=== PATIENT | male | born 1950 | race Caucasian/White ===

== ENCOUNTER → 2017-03-22 | Outpatient (CLI) | payer MEDICARE, OTHER ==
[2017-03-22 08:59] LABS: Basophils # (A) 0.1 k/uL (0-0.2); Basophils % (A) 1 %; Eosinophils # (A) 0.4 k/uL (0-0.7); Eosinophils % (A) 7 %; HCT 44.9 % (39.0-53.0); HGB 14.1 gm/dL (13.0-17.5); Lymphocytes # (A) 1.7 k/uL (1.0-4.8); Lymphocytes % (A) 31 %; MCH 29.5 pg (25.0-35.0); MCHC 31.5 g/dL (31.0-37.0); MCV 93.7 fL (80.0-100.0); Mean Platelet Volume 7.2; Monocytes # (A) 0.4 k/uL (0-1.0); Monocytes % (A) 6 %; Neutrophils # (A) 2.9 k/uL (1.3-7.7); Neutrophils % (A) 52 %; Platelet Count 219 k/uL (150-450); RBC 4.79 m/uL (4.30-5.90); RDW 13.8 % (11.5-15.5); WBC 5.6 k/uL (3.8-10.6)
[2017-03-22 11:45] LABS: ALT 29 U/L (21-72); AST 22 U/L (17-59); Albumin 3.8 g/dL (3.5-5.0); Alkaline Phosphatase 59 U/L (38-126); Anion Gap 7 mmol/L; Blood Urea Nitrogen 23 mg/dL (9-20); Calcium 9.6 mg/dL (8.4-10.2); Carbon Dioxide 30 mmol/L (22-30); Chloride 105 mmol/L (98-107); Cholesterol 201 mg/dL (<200); Glucose 100 mg/dL (74-99); HDL Cholesterol 49 mg/dL (40-60); LDL Cholesterol,Calculated 133 mg/dL (0-99); Potassium 4.2 mmol/L (3.5-5.1); Sodium 142 mmol/L (137-145); Total Bilirubin 0.6 mg/dL (0.2-1.3); Total Protein 6.4 g/dL (6.3-8.2); Triglycerides 97 mg/dL (<150)
[2017-03-22 12:12] LABS: Prostate Specific Antigen 1.22 ng/mL (0.00-4.00)
== END | disposition home or self-care (01) ==
LOC: LABWHC1 08:15
PROVIDERS: ATTEND Internal Medicine
DX: K27.9 Peptic ulcer, site unspecified, unspecified as acute or chronic, without hemorrhage or perforation (principal); Z12.5 Encounter for screening for malignant neoplasm of prostate; Z13.6 Encounter for screening for cardiovascular disorders
CPT/HCPCS: 36415; 80053; 80061; 84153; 85025

== ENCOUNTER → 2017-04-18 | Outpatient (CLI) | payer MEDICARE, OTHER ==
--- NOTE | 2017-04-18 16:04 | CTL ---
EXAMINATION TYPE: CT Low Dose Lung DATE OF EXAM ORDERED: 04/18/2017 HISTORY: Tobacco abuse and shortness of breath. Lung cancer screening CT DLP: [address] CTDI: 1.57 mGy Automated exposure control for dose reduction was used. SCREENING VISIT: First screening visit COMPARISON: None TECHNIQUE: Low dose computed tomography scan was performed through the chest at 1 mm thick sections a nd reconstructed images in the coronal plane at [address] DIAGNOSTIC QUALITY: Limited, but interpretable FINDINGS: LUNG NODULES: None. There is a 4 mm lingular solid nodule that is noncalcified on series 5 image 210. Multiple calcifications oriented in a linear fashion within the left lower lobe represent benign gran ulomatous change. LUNGS: COPD: Severity: Moderate centrilobular Fibrosis: Severity: None Lymph nodes: Calcified hilar lymph nodes are seen bilaterally. Given the limitation of lack of intrav enous contrast no evidence of adenopathy is seen within the mediastinum or axilla Other findings: Right basilar atelectasis and scarring are noted. RIGHT PLEURAL SPACE: Effusion: None Calcification: None Thickening: None Pneumothorax: None LEFT PLEURAL SPACE: Effusion: None Calcification: None Thickening: None Pneumothorax: None HEART: Heart Size: Nonenlarged. Ascending thoracic aorta is of normal limits measuring 3.3 cm. Main pulmonar y artery is also within normal limits measuring 2.4 cm. Coronary calcification: Minimal of the left anterior descending Pericardial effusion: Trace anterior pericardial effusion OTHER FINDINGS: Upper abdomen: Extremely limited. Benign granulomatous changes of the splenic parenchyma. Bony thorax: Moderate multilevel degenerative change of the thoracic spine. Supraclavicular region: Grossly unremarkable Other: Small hiatal hernia is present. IMPRESSION: Lung RADS 2-benign appearance or behavior-nodules with a very low likelihood of becoming a clinically active cancer due to lack of size. Solitary lingular 4 mm noncalcified pulmonary nodule is seen in addition to benign granulomatous changes of the raquel and lung parenchyma. Findings are sup erimposed upon moderate centrilobular emphysematous change. FOLLOW UP CT CHEST RECOMMENDATION: Continued annual screening with low dose CT in [address] LUNG RAD: 2
== END | disposition home or self-care (01) ==
LOC: RADCTMAIN 14:48
PROVIDERS: ATTEND Internal Medicine
DX: Z12.2 Encounter for screening for malignant neoplasm of respiratory organs (principal); R91.8 Other nonspecific abnormal finding of lung field; Z87.891 Personal history of nicotine dependence

== ENCOUNTER → 2017-10-20 | Outpatient (CLI) | payer MEDICARE, OTHER ==
--- NOTE | 2017-10-20 11:20 | ECHOS ---
STRESS ECHOCARDIOGRAM INDICATION: Chest pain. MEDICATIONS: Stomach pill, inhaler BASELINE HEART RATE: 54 BASELINE BLOOD PRESSURE: 94/47. METS: 6.0 MAXIMUM HEART RATE: 123 MAXIMUM BLOOD PRESSURE: 162/58 85% MPHR: 130. MPHR: 153 MAXIMUM STAGE REACHED: 2 TOTAL EXERCISE TIME: 15 CLINICAL INFORMATION: Baseline EKG shows sinus rhythm, normal axis, normal intervals. Patient exercised on Bobo protocol for a total of 5 minutes achieving 6 METS. 80% of predicted maximal heart rate without chest pain. At peak exercise, there was [address]-segment depression noted in the inferolateral leads and occasional PVCs were noted. Baseline echo shows normal left ventricular size, wall motion systolic function. Postexercise, there is normal hyperdynamic response of all segments of myocardium noted. CONCLUSION: 1. Poor exercise tolerance. 2. Abnormal stress test by EKG criteria. 3. Inconclusive stress echo due to inability to attain target heart rate and frequent ventricular ectopy. MMODL / IJN: [id number] /
== END | disposition home or self-care (01) ==
LOC: RADNMMAIN 09:17
PROVIDERS: ATTEND Internal Medicine
DX: R94.39 Abnormal result of other cardiovascular function study (principal)
CPT/HCPCS: 93351

== ENCOUNTER → 2017-12-22 | Outpatient (CLI) | payer MEDICARE ==
[2017-12-22 14:39] LABS: Anisocytosis Slight; Basophils # (A) 0.1 k/uL (0-0.2); Basophils % (A) 2 %; Eosinophils # (A) 0.1 k/uL (0-0.7); Eosinophils % (A) 2 %; HCT 51.8 % (39.0-53.0); HGB 15.6 gm/dL (13.0-17.5); Lymphocytes % (A) 17 %; MCH 30.4 pg (25.0-35.0); MCHC 30.1 g/dL (31.0-37.0); MCV 100.9 fL (80.0-100.0); Macrocytosis Moderate; Mean Platelet Volume 10.4; Monocytes # (A) 0.4 k/uL (0-1.0); Monocytes % (A) 6 %; Neutrophils # (A) 4.6 k/uL (1.3-7.7); Neutrophils % (A) 72 %; Platelet Count 243 k/uL (150-450); RBC 5.13 m/uL (4.30-5.90); RDW 17.2 % (11.5-15.5); WBC 6.3 k/uL (3.8-10.6)
--- NOTE | 2017-12-22 15:19 | US ---
EXAMINATION TYPE: US duplex aorta DATE OF EXAM: 12/22/2017 COMPARISON: NONE CLINICAL HISTORY: R06.00 DYSPNEA. EXAM MEASUREMENTS: Abdominal Aorta: Proximal: 2.2 x 1.9 cm Mid: 2.1 x 2.0 cm Distal: 1.5 x 1.2 cm Bifurcation: 0.7 cm 0.7 cm Study is somewhat limited by bowel gas, but no evidence of AAA. Grayscale, color Doppler imaging performed of the abdominal aorta. Atheromatous changes are present. IMPRESSION: No evident abdominal aortic aneurysm
[2017-12-22 15:35] LABS: Albumin 3.8 g/dL (3.5-5.0); Calcium 9.5 mg/dL (8.4-10.2); Potassium 4.9 mmol/L (3.5-5.1); Total Bilirubin 0.6 mg/dL (0.2-1.3); Total Protein 6.8 g/dL (6.3-8.2)
== END | disposition home or self-care (01) ==
LOC: LABWHC1 13:41
PROVIDERS: ATTEND Internal Medicine
DX: R06.00 Dyspnea, unspecified (principal)
CPT/HCPCS: 36415; 80053; 82550; 83880; 84484; 85025; 93979

== ENCOUNTER 2018-02-27 12:22 | Day surgery (SDC) | payer MEDICARE, OTHER ==
[2018-02-23 11:50] VITALS: BMI 17.6
[~2018-02-27 12:22] MED LIST: LACTATED RINGERS 1,000 ML IV SCH; LIDOCAINE 1% 20 ML VIAL (10MG/ML) FOR IV START INTRADERMA PRN; MIDAZOLAM (PF) 2 MG/2 ML VIAL IV PRN
[2018-02-27 13:09] VITALS: TEMP 97.8
[2018-02-27] MEDS ORDERED: PROPOFOL 10 MG/ML 20 ML VIAL IV ONE (14:36)
[2018-02-27 15:14] VITALS: RESP 18
--- NOTE | 2018-02-27 15:23 | P.PCN ---
Date of Procedure: 02/27/18 Procedure(s) Performed: Procedure: 1. Esophagogastroduodenoscopy and biopsy. 2. Incomplete colonoscopy. Preoperative diagnosis: Abdominal pain and history of polyps. Postoperative diagnosis: 1. Small sliding hiatal hernia with no obvious esophagitis or complicated reflux disease. 2. Mild antral gastritis. 3. Significant diverticular disease with inability to advance the colonoscope safely in the midsigmoid. Preparation: HalfLytely prep. Sedation: Was provided by anesthesia. Brief clinical history: The patient is a 68-year-old male with history of polyps , last exam in 2011, who has also been experiencing hypogastric pain for the last 7-8 months with no other alarm symptoms. He is scheduled for this evaluation to rule out peptic ulcer disease, colon neoplasia or other pathology. Procedure: With the patient on his left lateral decubitus position and after informed consent and adequate sedation, I passed the Olympus-GIF H1 90 video upper endoscope through the cricopharyngeus down the esophagus. GE junction was around 40-42 cm from the incisors and there was a small sliding hiatal hernia but no obvious esophagitis or complicated reflux disease. The endoscope was passed into the stomach which was insufflated with air and inspected in detail including the retroflex view in the cardia. There was some mottling and erythema in the antrum but no ulcers or erosions. Pyloric channel, duodenal bulb, post bulbar area and descending duodenum appeared within normal limits. Because of his symptoms, I obtained biopsies from the duodenum, antrum and esophagus then the endoscope was withdrawn and I proceeded with the colonoscopy. Perianal area did not show any fissures or fistulas. There were no masses felt on digital rectal examination. The Olympus CFH 190L video colonoscope was initially used and was inserted in the rectum in the usual fashion and advanced. There was significant diverticular disease that made me unable to advance the endoscope safely around the mid sigmoid area. I, therefore, exchanged the endoscope for the pediatric PCF Q180L video colonoscope. Again, I was not able to pass it safely in the midsigmoid. I concluded the exam without completing the colonoscopy. The areas examined showed significant diverticular disease but no obvious mucosal abnormalities, tumors, polyps or strictures. I retroflexed the endoscope in the rectum before the endoscope was withdrawn. The patient tolerated the procedure well. Plan: We will await pathology results. Discussed dietary measures. I would consider CT colonography or other modality to investigate his bowel based on his course and biopsy results. I will keep you updated on his progress.
[2018-02-27 15:58] VITALS: BP 128/76; PULSE 52
== END 2018-02-27 16:10 | disposition home or self-care (01) ==
LOC: ORWHC2ENDO 12:22
DX: K31.9 Disease of stomach and duodenum, unspecified (principal); K21.0 Gastro-esophageal reflux disease with esophagitis; K29.80 Duodenitis without bleeding; K44.9 Diaphragmatic hernia without obstruction or gangrene; K29.70 Gastritis, unspecified, without bleeding; K57.30 Diverticulosis of large intestine without perforation or abscess without bleeding; Z86.010 Personal history of colon polyps; J44.9 Chronic obstructive pulmonary disease, unspecified; F17.210 Nicotine dependence, cigarettes, uncomplicated; Z79.899 Other long term (current) drug therapy
CPT/HCPCS: 88305; 43239; 45330; J2704; 45378

== ENCOUNTER 2018-03-20 09:56 | Inpatient (IN) | payer MEDICARE, OTHER ==
[2018-03-20] MEDS ORDERED: SODIUM CHLORIDE 0.9% 1,000 ML IV STA (10:23)
[2018-03-20] MEDS ORDERED: IPRATROPIUM-ALBUTEROL 3 ML NEB INHALATION STA ×3 (10:24→14:22)
--- NOTE | 2018-03-20 10:45 | XR ---
EXAMINATION TYPE: XR chest 2V DATE OF EXAM: 03/20/2018 COMPARISON: None INDICATION: Cough, short of breath TECHNIQUE: Frontal and lateral views of the chest are obtained. FINDINGS: The heart size is normal. The pulmonary vasculature is normal. There is hyperinflation and flattening the diaphragms compatible COPD. IMPRESSION: 1. No acute pulmonary process. 2. COPD
--- NOTE | 2018-03-20 10:48 | ED ---
General Adult HPI - General Source: patient, family, RN notes reviewed Mode of arrival: wheelchair Limitations: no limitations <Ananth Valdez - Last Filed: 03/20/18 14:38> <Luis M Youssef - Last Filed: 03/20/18 17:17> - General Chief complaint: Shortness of Breath Stated complaint: SOB Time Seen by Provider: 03/20/18 10:17 - History of Present Illness Initial comments: 68-year-old male presenting to the emergency room today with a chief complaint of increased cough congestion over the last week. He does admit to sputum production it's been white in color. Admits to history of COPD. Does admit that is felt more short of breath with this cough congestion. He states he's had symptoms like this in the past he was told that he had pneumonia. Patient states he does not have breathing treatments at home but they have been trying to get him a machine. Patient denies any other complaints. Patient denies any recent fever, chills, chest pain, back pain, abdominal pain, nausea or vomiting , numbness or tingling, headaches or visual changes, or any other complaints. ( Ananth Valdez) - Related Data Home Medications Medication Instructions Recorded Confirmed Omeprazole 20 mg PO DAILY 02/23/18 03/20/18 Unknown Stomach Medication 1 tab PO DAILY 03/20/18 03/20/18 Allergies Allergy/AdvReac Type Severity Reaction Status Date / Time No Known Allergies Allergy Verified 03/20/18 12:53 Review of Systems ROS Other: All systems not noted in ROS Statement are negative. <Ananth Valdez - Last Filed: 03/20/18 14:38> ROS Other: All systems not noted in ROS Statement are negative. <Luis M Youssef - Last Filed: 03/20/18 17:17> ROS Statement: Those systems with pertinent positive or pertinent negative responses have been documented in the HPI. Past Medical History Past Medical History: COPD History of Any Multi-Drug Resistant Organisms: None Reported Past Surgical History: Orthopedic Surgery, Tonsillectomy Additional Past Surgical History / Comment(s): shoulder arthroscopy Past Anesthesia/Blood Transfusion Reactions: No Reported Reaction Past Psychological History: No Psychological Hx Reported Smoking Status: Current every day smoker Past Alcohol Use History: None Reported Past Drug Use History: None Reported - Past Family History Father Family Medical History: Cancer <Ananth Valdez - Last Filed: 03/20/18 14:38> General Exam Limitations: no limitations <Ananth Valdez - Last Filed: 03/20/18 14:38> <Luis M Youssef Neris - Last Filed: 03/20/18 17:17> - General Exam Comments Initial Comments: General: The patient is awake and alert, in no distress, and does not appear acutely ill. Eye: There is normal conjunctiva bilaterally. No signs of icterus. Ears, nose, mouth and throat: There are moist mucous membranes and no oral lesions. Neck: The neck is supple, there is no tenderness or JVD. Cardiovascular: There is a regular rate and rhythm. No murmur, rub or gallop is appreciated. Respiratory: Bilateral expiratory wheeze. respirations are non-labored, breath sounds are equal. No wheezes, stridor, rales Musculoskeletal: Normal ROM, no tenderness. Strength 5/5. Sensation intact. Pulses equal bilaterally 2+. Neurological: A&O x 3. CN II-XII intact, There are no obvious motor or sensory deficits. Coordination appears grossly intact. Speech is normal. Skin: Skin is warm and dry and no rashes or lesions are noted. Psychiatric: Cooperative, appropriate mood & affect, normal judgment. (Ananth Valdez) Vital Signs 03/20/18 03/20/18 03/20/18 10:04 10:58 11:06 Temperature 97.7 F Pulse Rate 108 H 112 H 108 H Respiratory 18 Rate Blood Pressure 110/67 O2 Sat by Pulse 90 L Oximetry 03/20/18 03/20/18 03/20/18 12:06 12:20 12:29 Temperature 98.5 F Pulse Rate 91 88 92 Respiratory 28 H Rate Blood Pressure 111/77 O2 Sat by Pulse 91 L Oximetry 03/20/18 03/20/18 03/20/18 13:34 13:52 14:15 Temperature 98.3 F Pulse Rate 86 Respiratory 18 Rate Blood Pressure 94/64 O2 Sat by Pulse 99 92 L 88 L Oximetry 03/20/18 14:30 Temperature Pulse Rate Respiratory 22 Rate Blood Pressure O2 Sat by Pulse 98 Oximetry Medical Decision Making - Lab Data Result diagrams: 03/20/18 12:00 03/20/18 12:00 <Ananth Valdez - Last Filed: 03/20/18 14:38> - Lab Data Result diagrams: 03/20/18 12:00 03/20/18 12:00 <Luis M Youssef - Last Filed: 03/20/18 17:17> - Medical Decision Making Patient says x-ray reviewed is negative for any sign of pneumonia. Patient does have increased shortness of breath and cough congestion over the last week with positive sputum production. Patient has had improvement after breathing treatments here in the emergency room. Pulse ox is still been running in the high 80s low 90s. Patient shows no signs of respiratory distress. She will be admitted to the hospital for COPD exacerbation. (Ananth Valdez) Patient seen and evaluated, exam and history consistent with COPD. Patient remains hypoxic after initial treatment with albuterol, Atrovent, and steroids. Will be admitted, case discussed with admitting physician. (Luis M Youssef) - Lab Data Lab Results 03/20/18 03/20/18 03/20/18 Range/Units 12:00 12:00 12:00 WBC 8.7 (3.8-10.6) k/uL RBC 5.03 (4.30-5.90) m/uL Hgb 15.4 (13.0-17.5) gm/dL Hct 47.0 (39.0-53.0) % MCV 93.4 (80.0-100.0) fL MCH 30.6 (25.0-35.0) pg MCHC 32.7 (31.0-37.0) g/dL RDW 12.8 (11.5-15.5) % Plt Count 274 (150-450) k/uL Neutrophils % 85 % Lymphocytes % 7 % Monocytes % 5 % Eosinophils % 1 % Basophils % 1 % Neutrophils # 7.4 (1.3-7.7) k/uL Lymphocytes # 0.7 L (1.0-4.8) k/uL Monocytes # 0.4 (0-1.0) k/uL Eosinophils # 0.0 (0-0.7) k/uL Basophils # 0.0 (0-0.2) k/uL Sodium 139 (137-145) mmol/L Potassium 5.1 (3.5-5.1) mmol/L Chloride 103 (98-107) mmol/L Carbon Dioxide 28 (22-30) mmol/L Anion Gap 8 mmol/L BUN 14 (9-20) mg/dL Creatinine 0.89 (0.66-1.25) mg/dL Est GFR (CKD-EPI)AfAm >90 (>60 ml/min/1.73 sqM) Est GFR (CKD-EPI)NonAf 88 (>60 ml/min/1.73 sqM) Glucose 97 (74-99) mg/dL Plasma Lactic Acid Luciano 1.3 (0.7-2.0) mmol/L Calcium 9.1 (8.4-10.2) mg/dL Total Bilirubin 0.6 (0.2-1.3) mg/dL AST 29 (17-59) U/L ALT 21 (21-72) U/L Alkaline Phosphatase 60 (38-126) U/L Total Protein 6.5 (6.3-8.2) g/dL Albumin 3.6 (3.5-5.0) g/dL Disposition Is patient prescribed a controlled substance at d/c from ED?: No Time of Disposition: 14:40 <Ananth Valdez - Last Filed: 03/20/18 14:38> <Luis M Youssef - Last Filed: 03/20/18 17:17> Clinical Impression: COPD exacerbation Disposition: ADMITTED IP TO THIS HOSP Condition: Good
[2018-03-20 12:31] LABS: Basophils % (A) 1 %; Eosinophils % (A) 1 %; HGB 15.4 gm/dL (13.0-17.5); Lymphocytes # (A) 0.7 k/uL (1.0-4.8); Lymphocytes % (A) 7 %; MCH 30.6 pg (25.0-35.0); MCHC 32.7 g/dL (31.0-37.0); MCV 93.4 fL (80.0-100.0); Mean Platelet Volume 6.3; Monocytes # (A) 0.4 k/uL (0-1.0); Monocytes % (A) 5 %; Neutrophils # (A) 7.4 k/uL (1.3-7.7); Neutrophils % (A) 85 %; Platelet Count 274 k/uL (150-450); RBC 5.03 m/uL (4.30-5.90); RDW 12.8 % (11.5-15.5); WBC 8.7 k/uL (3.8-10.6)
[2018-03-20 12:39] LABS: Albumin 3.6 g/dL (3.5-5.0); Anion Gap 8 mmol/L; Blood Urea Nitrogen 14 mg/dL (9-20); Calcium 9.1 mg/dL (8.4-10.2); Carbon Dioxide 28 mmol/L (22-30); Chloride 103 mmol/L (98-107); Glucose 97 mg/dL (74-99); Sodium 139 mmol/L (137-145); Total Bilirubin 0.6 mg/dL (0.2-1.3); Total Protein 6.5 g/dL (6.3-8.2)
[2018-03-20 13:07] LABS: ALT 21 U/L (21-72); AST 29 U/L (17-59); Alkaline Phosphatase 60 U/L (38-126); Potassium 5.1 mmol/L (3.5-5.1)
[2018-03-20] MEDS ORDERED: DEXAMETHASONE SOD PHOSPHATE 10 MG/ML 1 ML VIAL IV STA (14:08)
[2018-03-20] MEDS ORDERED: ALBUTEROL NEBULIZED 2.5 MG/3 ML INHALATION STA (14:22)
[2018-03-20] MEDS ORDERED: SODIUM CHLORIDE 0.9% 1,000 ML IV ONE (14:41)
--- NOTE | 2018-03-20 17:32 | P.HPIM ---
History of Present Illness this is a 68-year-old male with extensive history of smoking who came to emergency department complaining of shortness of breath for the last few days. Patient reports extensive smoking "for the most of his life ". He denies any inhalers or other home medications. Patient reports that over the last few days he's been feeling sick and with some worsening shortness of breath mostly with exertion over the last couple of days he started coughing whitish thick sputum no blood. On the day of admission in the morning he was very severely short of breath coughing and had subjective feeling of wheezing and chest congestion and came to emergency department. He was found to have bilateral expiratory wheezing. He was hypoxic which improved home with placement of oxygen. Chest x-ray showed hyperinflated lungs consistent with emphysema and COPD and no acute infiltrates or cardiomegaly or changes in pulmonary vasculature. Patient states that he had a sick contact with his and grandchildren were sick before him. He denies any gaudencio fever chills sore throat and runny or stuffy nose moist changes body aches or muscle aches. He denies any history of COPD or pulmonary function testing and denies any admissions to the hospital due to shortness of breath. Chart review shows that last year when he was having some epigastric discomfort and chest pains and had exercise echo done which was noticeable for more exercise tolerance [address] segment depressions in inferolateral leads and normal findings on echocardiogram with preserved ejection fraction. In emergency department he was given oxygen and DuoNeb and Solu-Medrol and admitted for further evaluation. He is now stating that he's feeling somewhat better. Patient also states that for the last year or so he's been having some sort of baseline dyspnea and cough which would prevent him from exertion and he was able to walk less than one block lately.he denies any orthopnea PND or leg swelling. he looks like he lost some weight patient claims that his weight and appetite have been stable Review of Systems REVIEW OF SYSTEMS: CONSTITUTIONAL: No fever or chills HEENT: No changes in vision or voice CARDIOVASCULAR: no chest pain or abnormal heart beats, or any swelling in ankles or feet. RESPIRATORY: as per HPI GASTROINTESTINAL: No abdominal pain, no nausea no vomiting no constipation or diarrhea GENITOURINARY: no any urinary urgency, frequency or burning, and there has been no blood in her urine. no flank pain. MUSCULOSKELETAL: She notes full range of motion of all her joints without pain or swelling. NEUROLOGICAL: , no headache. no vision changes, or fainting. No numbness or tingling. Past Medical History Past Medical History: COPD History of Any Multi-Drug Resistant Organisms: None Reported Past Surgical History: Orthopedic Surgery, Tonsillectomy Additional Past Surgical History / Comment(s): shoulder arthroscopy Past Anesthesia/Blood Transfusion Reactions: No Reported Reaction Past Psychological History: No Psychological Hx Reported Smoking Status: Former smoker Past Alcohol Use History: None Reported Additional Past Alcohol Use History / Comment(s): has smoked for about 30 yrs; 2 cigs a day Past Drug Use History: None Reported - Past Family History Father Family Medical History: Cancer Medications and Allergies Home Medications Medication Instructions Recorded Confirmed Type Omeprazole 20 mg PO DAILY 02/23/18 03/20/18 History Unknown Stomach Medication 1 tab PO DAILY 03/20/18 03/20/18 History Allergies Allergy/AdvReac Type Severity Reaction Status Date / Time No Known Allergies Allergy Verified 03/20/18 12:53 Physical Exam Vitals: Vital Signs Temp Pulse Pulse Resp BP BP Pulse Ox 03/20/18 15:48 99.1 F 87 17 116/68 96 03/20/18 15:18 98.2 F 87 18 120/69 98 03/20/18 14:30 22 98 03/20/18 14:15 88 L 03/20/18 13:52 92 L 03/20/18 13:34 98.3 F 86 18 94/64 99 03/20/18 12:29 92 03/20/18 12:20 88 03/20/18 12:06 98.5 F 91 28 H 111/77 91 L 03/20/18 11:06 108 H 03/20/18 10:58 112 H 03/20/18 10:04 97.7 F 108 H 18 110/67 90 L Intake and Output 03/20/18 03/20/18 03/20/18 06:59 14:59 22:59 Other: Voiding Method Toilet Weight 48.081 kg Vital Signs: I have reviewed the vital signs. GENERAL: no apparent distress, noticeable breathing through pursed lips Eyes: PERRL, extraoculry movements intact, clear conjunctiva Head: : Atraumatic external nose and ears, oropharyngeal mucosa is moist without lesions or exudates, mild temporal wasting Neck: Symmetric, trachea midline, No thyromegaly, no masses or neck vain pulsation, no neck rigidity CVS: +S1/S2, No murmurs or gallops. Peripheral pulses 2+ and equal in all extremities. RESP: mildly labored respiratory effort. breath sounds are present but diminished and expiratory wheezes present bilateral. No crackles or significant rhonchi noted Abdomen: Bowel sounds present in all 4 quadrants, Soft to palpation, Nontender/ Nondistended, No hepatosplenomegaly, no hernias or masses, no CVA tnderness Musculoskeletal: Extremities w/o deformity, No cyanosis or clubbing, no joint swelling Skin: Warm, Dry. 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, motor strenght 5/5 i upper and lower extremities, no clonus, patellar DTRs 2+ and sympetrical no asterixis Psych: Awake, Alert, & Oriented (AAO) x3 Appropriate mood and affect Results CBC & Chem 7: 03/20/18 12:00 03/20/18 12:00 Labs: Abnormal Lab Results - Last 24 Hours (Table) 03/20/18 Range/Units 12:00 Lymphocytes # 0.7 L (1.0-4.8) k/uL Abdominal x-ray: report reviewed Thrombosis Risk Factor Assmnt - Choose All That Apply Each Factor Represents 1 point: Abnormal pulmonary function (COPD) Other Risk Factors: Yes Each Risk Factor Represents 2 Points: Age 61-74 years Other congenital or acquired thrombophilia - If yes, enter type in comment: No Thrombosis Risk Factor Assessment Total Risk Factor Score: 3 Thrombosis Risk Factor Assessment Level: Moderate Risk Assessment and Plan Assessment: 1. Acute hypoxic respiratory failure Clinically most likely related to acute exacerbation of underlying COPD Continue steroids Bronchodilators Oxygen supplementation and home oxygen evaluation prior to discharge Tobacco cessation Increase activity as tolerated 2. 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
[2018-03-20] MEDS: NICOTINE 7MG/24HR PATCH TRANSDERM SCH (17:56)
[2018-03-20] MEDS: methylPREDNISolone SOD SUCCI 125 MG/2 ML VIAL IV SCH (17:56)
[2018-03-20] MEDS: IPRATROPIUM-ALBUTEROL 3 ML NEB INHALATION PRN (19:39)
[2018-03-20] MEDS: BENZONATATE 100 MG CAP PO PRN (21:20)
[2018-03-21] MEDS: methylPREDNISolone SOD SUCCI 125 MG/2 ML VIAL IV SCH ×2 (00:38→05:29)
[2018-03-21] MEDS: BENZONATATE 100 MG CAP PO PRN ×2 (06:35→19:31)
[2018-03-21] MEDS: IPRATROPIUM-ALBUTEROL 3 ML NEB INHALATION PRN ×4 (07:25→19:56)
[2018-03-21] MEDS: NICOTINE 7MG/24HR PATCH TRANSDERM SCH (07:28)
[2018-03-21 09:32] VITALS: BMI 17.6
--- NOTE | 2018-03-21 11:02 | P.PN ---
Subjective Patient was admitted yesterday with complaint of progressively worsening shortness of breath and cough and subjective feeling of chest congestion and wheezing. This started after some sick contacts with his family members. He also continues to smoke at least one pack per day. He does have appearance of a pink puffer with barrel chest and breathing pursed lips. He clinically did not exhibit any signs of congestive heart failure there was no any leg edema no orthopnea no JVD. His physical exam was consistent with diminished breath sounds and expiratory wheezing bilaterally. He was started on systemic steroids to IV and breathing treatments, no antibiotics due to lack of purulence in his sputum. Chest x-ray was clear of any infiltrates and he then any fever or chills. Today he is doing much better. He is able to get up and go to the bathroom and back without any significant shortness of breath. His cough is significantly improved and he overall feels improved. REVIEW OF SYSTEMS: CONSTITUTIONAL: No fever or chills HEENT: No changes in vision or voice CARDIOVASCULAR: no chest pain or abnormal heart beats, or any swelling in ankles or feet. RESPIRATORY: As per HPI GASTROINTESTINAL: No abdominal pain, no nausea no vomiting no constipation or diarrhea GENITOURINARY: no any urinary urgency, frequency or burning, and there has been no blood in her urine. no flank pain. MUSCULOSKELETAL: She notes full range of motion of all her joints without pain or swelling. NEUROLOGICAL: , no headache. no vision changes, or fainting. No numbness or tingling. Objective - Vital Signs Vital signs: Vital Signs Temp 97.7 F 03/21/18 05:00 Pulse 80 03/21/18 07:35 Resp 16 03/21/18 05:00 BP 103/71 03/21/18 05:00 Pulse Ox 93 L 03/21/18 09:54 Intake & Output 03/20/18 03/21/18 03/21/18 18:59 06:59 18:59 Intake Total 940 Balance 940 Weight 48.081 kg 48.081 kg Intake: Oral 940 Other: Voiding Method Toilet Toilet Toilet # Voids 1 - Exam Vital Signs: I have reviewed the vital signs. GENERAL: Well-nourished, Well-developed , no apparent distress, cooperative Eyes: PERRL, extraoculry movements intact, clear conjunctiva Head: : Atraumatic external nose and ears, oropharyngeal mucosa is moist without lesions or exudates Neck: Symmetric, trachea midline, No thyromegaly, no masses or neck vain pulsation, no neck rigidity CVS: +S1/S2, No murmurs or gallops. Peripheral pulses 2+ and equal in all extremities. RESP: He has barrel chest, breathing through pursed lips. Unlabored respiratory effort. His breath sounds are diminished and he has a few expiratory wheezes bilaterally but much improved since yesterday, no rhonchi or crackles Abdomen: Bowel sounds present in all 4 quadrants, Soft to palpation, Nontender/ Nondistended, No hepatosplenomegaly, no hernias or masses, no CVA tnderness Musculoskeletal: Extremities w/o deformity, No cyanosis or clubbing, no joint swelling Skin: Warm, Dry. 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: No asterixis Psych: Awake, Alert, & Oriented (AAO) x3 Appropriate mood and affect - Labs CBC & Chem 7: 03/20/18 12:00 03/20/18 12:00 Labs: Abnormal Lab Results - Last 24 Hours (Table) 03/20/18 Range/Units 12:00 Lymphocytes # 0.7 L (1.0-4.8) k/uL Assessment and Plan Assessment: 1. Acute hypoxic respiratory failure Due to acute exacerbation of COPD Continue steroids, will change to prednisone 40 mg daily for 5 days Continue Bronchodilators Oxygen supplementation and home oxygen evaluation prior to discharge Tobacco cessation Increase activity as tolerated 2. Gastritis and reflux esophagitis Continue omeprazole We'll plan for discharge home tomorrow or if he will need home oxygen evaluation. He'll need proper vaccinations. Pulmonary function test and low dose screening CT of the lungs on outpatient basis in few weeks with his primary care physician I would advise the patient to be started on inhaled LAMA and laba/steroid. Since going home on DuoNeb we can initiate Advair or other insurance covered inhaler.
[2018-03-21] MEDS: predniSONE 20 MG TAB PO SCH (12:31)
[2018-03-22] MEDS: IPRATROPIUM-ALBUTEROL 3 ML NEB INHALATION PRN ×4 (07:08→19:06)
[2018-03-22] MEDS: NICOTINE 7MG/24HR PATCH TRANSDERM SCH (08:45)
[2018-03-22] MEDS: predniSONE 20 MG TAB PO SCH (08:45)
[2018-03-22] MEDS ORDERED: guaiFENesin SYRUP 100MG/5ML 200 MG/10 ML CUP PO PRN (10:52)
--- NOTE | 2018-03-22 10:55 | P.PN ---
Subjective Respiratory status continues to improve although patient states that today he had episode of shortness of breath ambulating to the restroom and back. Currently feeling better. He has cough has been clearing up no production. No fever or chills chest pain or nausea or vomiting. REVIEW OF SYSTEMS: CONSTITUTIONAL: No fever or chills HEENT: No changes in vision or voice CARDIOVASCULAR: no chest pain or abnormal heart beats, or any swelling in ankles or feet. RESPIRATORY: As per HPI GASTROINTESTINAL: No abdominal pain, no nausea no vomiting no constipation or diarrhea GENITOURINARY: no any urinary urgency, frequency or burning, and there has been no blood in her urine. no flank pain. MUSCULOSKELETAL: She notes full range of motion of all her joints without pain or swelling. NEUROLOGICAL: , no headache. no vision changes, or fainting. No numbness or tingling. Objective - Vital Signs Vital signs: Vital Signs Temp 97.5 F L 03/22/18 05:00 Pulse 80 03/22/18 07:21 Resp 16 03/22/18 05:00 BP 106/61 03/22/18 05:00 Pulse Ox 95 03/22/18 05:00 Intake & Output 03/21/18 03/22/18 03/22/18 18:59 06:59 18:59 Intake Total 600 1800 Balance 600 1800 Weight 48.081 kg 48.081 kg Intake: Intake, IV Titration 600 Amount Sodium Chloride 0.9% 1, 600 000 ml @ 75 mls/hr IV . [id number] ONE Rx#:[id number] Oral 1800 Other: Voiding Method Toilet Toilet # Voids 2 - Exam Vital Signs: I have reviewed the vital signs. GENERAL: Well-nourished, Well-developed , no apparent distress, cooperative Eyes: PERRL, extraoculry movements intact, clear conjunctiva Head: : Atraumatic external nose and ears, oropharyngeal mucosa is moist without lesions or exudates Neck: Symmetric, trachea midline, No thyromegaly, no masses or neck vain pulsation, no neck rigidity CVS: +S1/S2, No murmurs or gallops. Peripheral pulses 2+ and equal in all extremities. RESP: He has barrel chest, breathing through pursed lips. Unlabored respiratory effort. His breath sounds are diminished and he has a few expiratory wheezes bilaterally but much improved since yesterday, no rhonchi or crackles Abdomen: Bowel sounds present in all 4 quadrants, Soft to palpation, Nontender/ Nondistended, No hepatosplenomegaly, no hernias or masses, no CVA tnderness Musculoskeletal: Extremities w/o deformity, No cyanosis or clubbing, no joint swelling Skin: Warm, Dry. 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: No asterixis Psych: Awake, Alert, & Oriented (AAO) x3 Appropriate mood and affect - Labs CBC & Chem 7: 03/20/18 12:00 03/20/18 12:00 Labs: Microbiology - Last 24 Hours (Table) 03/20/18 12:00 Blood Culture - Preliminary Blood No Growth after 24 hours Assessment and Plan Assessment: 1. Acute hypoxic respiratory failure Due to acute exacerbation of COPD Continue steroids, will change to prednisone 40 mg daily for 5 days Continue Bronchodilators Oxygen supplementation and home oxygen evaluation prior to discharge Tobacco cessation Increase activity as tolerated The pencil he feels that they may consider discharging him Add Advair or compatible covered inhaler on discharge 2. Gastritis and reflux esophagitis Continue omeprazole Maalox when necessary
[2018-03-22] MEDS: MAG HYDROX/AL HYDROX/SIMETH 30 ML CUP PO PRN ×2 (12:55→21:46)
[2018-03-22 21:45] VITALS: RESP 18; TEMP 97.6
[2018-03-23 05:15] VITALS: BP 109/52
[2018-03-23] MEDS: predniSONE 20 MG TAB PO SCH (07:20)
[2018-03-23] MEDS: NICOTINE 7MG/24HR PATCH TRANSDERM SCH (07:21)
[2018-03-23] MEDS: IPRATROPIUM-ALBUTEROL 3 ML NEB INHALATION PRN ×2 (07:39→11:17)
[2018-03-23 11:26] VITALS: PULSE 76
--- NOTE | 2018-03-23 14:50 | P.DS ---
Providers Date of admission: 03/20/18 14:25 Attending physician: Ananya Barlow DO Primary care physician: [facility] Course: Date of admission: 03/20/2018 Date of discharge: 03/23/2018 Reason for admission: Shortness of breath. Discharge diagnoses: #1 acute hypoxic respiratory failure #2. Acute COPD exacerbation #3. GERD #4. Tobacco addiction This is a 62 male who presented to emergency department with complaint of shortness of breath, chest congestion, wheezing and cough with expectoration of minimal whitish phlegm. He has extensive history of smoking but denies any official diagnosis of COPD or using any inhalers at home. He reports the symptom going on for few days. He reports possibly sick contacts with his and grandchildren week prior to this. He denies any fever chills chest pain nausea vomiting orthopnea leg swelling or PND. Denies any sore throat or body aches. Physical exam he clearly had barrel chest and breathing through pursed lips Emergency department he was found to have diffuse bilateral expiratory wheezing. Chest x-ray showed emphysematous changes without any infiltrates or other acute findings. His troponin was negative and EKG without any significant ST-T changes. His oxygen saturation was in 70s in triage room air and improved with supplemental nasal cannula. Hospital course: Patient was admitted with clinical diagnosis of COPD exacerbation. He was started on systemic steroids, nebulizer and supplemental oxygen. He is activity was gradually increased. With this mentioned treatment his condition improved. Respiratory status was improving. He is chest wheezing has been resolving and he was able to get up from bed and ambulate in the room without any significant shortness of breath. He had a home oxygen evaluation and was found to be in need of supplemental oxygen on discharge. He did have some epigastric discomfort and heartburn. Prior EGD showed gastritis and esophagitis. He was maintained on PPI and given some Maalox with complete resolution of his symptoms. On the day of discharge I saw and evaluated the patient. He was doing very well without any significant shortness of breath. Vital Signs: I have reviewed the vital signs. GENERAL: no apparent distress, cooperative Eyes: PERRL, extraoculry movements intact, clear conjunctiva Head: : Atraumatic external nose and ears, oropharyngeal mucosa is moist without lesions or exudates Neck: Symmetric, trachea midline, No thyromegaly, no masses or neck vain pulsation, no neck rigidity CVS: +S1/S2, No murmurs or gallops. Peripheral pulses 2+ and equal in all extremities. RESP: Unlabored respiratory effort. Diminished breath sounds without any wheezing rhonchi or crackles. Barrel chest noted Abdomen: Bowel sounds present in all 4 quadrants, Soft to palpation, Nontender/ Nondistended, No hepatosplenomegaly, no hernias or masses, no CVA tnderness Musculoskeletal: Extremities w/o deformity, No cyanosis or clubbing, no joint swelling Skin: Warm, Dry. 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: gold marker II-XII grossly intact, motor strenght 5/5 i upper and lower extremities, no clonus, patellar DTRs 2+ and sympetrical Psych: Awake, Alert, & Oriented (AAO) x3 Appropriate mood and affect Disposition: Patient was discharged home. He is provided transportation. He was discharged with home oxygen via nasal cannula 2 L. He was given prednisone to finish 3 more days. He was provided with nebulizer machine and DuoNeb. And he was started on Symbicort. We'll ask respiratory therapist to educate patient on proper use of inhalers and nebulizers. He was advised to avoid smoking and provided with nicotine patches. He was advised to follow-up with his primary care physician and obtain pulmonary function test in 2-4 weeks 45 minutes spent on this discharge Patient Condition at Discharge: Good Plan - Discharge Summary Discharge Rx Participant: No New Discharge Prescriptions: New Budesonide/Formoterol Fumarate [Symbicort 80-4.5 Mcg Inhaler] 1 puff INHALATION BID #1 inhaler guaiFENesin SYRUP 100MG/5ML [Robitussin] 200 mg PO TID PRN #1 cup PRN Reason: Cough Ipratropium-Albuterol Nebulize [Duoneb 0.5 mg-3 mg/3 ml Soln] 3 ml INHALATION RT-Q4H PRN #30 ampul.neb PRN Reason: Shortness Of Breath Or Wheezing Nicotine 7Mg/24Hr Patch [Habitrol] 1 patch TRANSDERM DAILY #7 patch predniSONE 40 mg PO DAILY #6 tab Continue Omeprazole 20 mg PO DAILY Discontinued Dicyclomine [Bentyl] 20 mg PO TID Discharge Medication List Omeprazole 20 mg PO DAILY 02/23/18 [History] Budesonide/Formoterol Fumarate [Symbicort 80-4.5 Mcg Inhaler] 1 puff INHALATION BID #1 inhaler 03/23/18 [Rx] Ipratropium-Albuterol Nebulize [Duoneb 0.5 mg-3 mg/3 ml Soln] 3 ml INHALATION RT -Q4H PRN #30 ampul.neb 03/23/18 [Rx] Nicotine 7Mg/24Hr Patch [Habitrol] 1 patch TRANSDERM DAILY #7 patch 03/23/18 [Rx ] guaiFENesin SYRUP 100MG/5ML [Robitussin] 200 mg PO TID PRN #1 cup 03/23/18 [Rx] predniSONE 40 mg PO DAILY #6 tab 03/23/18 [Rx] Follow up Appointment(s)/Referral(s): Darnell Hodge MD [Primary Care Provider] - 03/30/18 9:00 am Patient Instructions/Handouts: Prednisone (By mouth), Guaifenesin (By mouth), Nicotine (Absorbed through the skin), Ipratropium/Albuterol (By breathing), Budesonide/Formoterol (By breathing), How to Stop Smoking (DC), How to Use a Metered-Dose Inhaler (GEN), Using Oxygen at Home (GEN), COPD (Chronic Obstructive Pulmonary Disease) (GEN) Activity/Diet/Wound Care/Special Instructions: If symbicort is too expensive or not covered, please have the pharmacist call Dr. Salinas at [phone] Care Plan Goals (MU): Follow up with PCP. Need to recheck your oxygen level in 6 weeks to reevaluate need for home oxygen (can be done at PCP office) Discharge Disposition: HOME WITH HOME HEALTH SERVICES
== END 2018-03-23 14:07 | disposition home health service (06) | DRG 190 ==
LOC: EC 09:56 → 3NMEDONC 14:25
PROVIDERS: ADMIT Internal Medicine; ATTEND Internal Medicine
DX: J44.1 Chronic obstructive pulmonary disease with (acute) exacerbation (principal); J96.01 Acute respiratory failure with hypoxia; F17.210 Nicotine dependence, cigarettes, uncomplicated; K21.0 Gastro-esophageal reflux disease with esophagitis; K29.70 Gastritis, unspecified, without bleeding; Z79.899 Other long term (current) drug therapy
CPT/HCPCS: 36415; 71046; 80053; 83605; 85025; 87040; 94640; 94760; 96361; 96374; 99285

== ENCOUNTER → 2018-04-23 | Outpatient (CLI) | payer MEDICARE, OTHER ==
--- NOTE | 2018-04-23 14:06 | CT ---
EXAMINATION TYPE: CT abdomen pelvis w con DATE OF EXAM: 04/23/2018 COMPARISON: None. HISTORY: Epigastric pain CT DLP: 319.5 mGycm, Automated Exposure Control for Dose Reduction was Utilized. CONTRAST: CT scan of the abdomen and pelvis is performed with oral and with IV Contrast, patient injected with 80 mL of Isovue 300. FINDINGS: LUNG BASES: Emphysematous change in lung bases with bibasilar linear scarring and/or atelectasis is i dentified. There is rounded atelectasis and/or consolidation new from lung screening CT 5 days earlie r making true pulmonary nodule not possible. LIVER/GB: No significant abnormality is appreciated. PANCREAS: No significant abnormality is seen. SPLEEN: Scattered calcifications throughout the spleen are redemonstrated consistent with old granulo matous disease. ADRENALS: No significant abnormality is seen. KIDNEYS: No significant abnormality is seen. BOWEL: Oral contrast reaches level of the proximal transverse colon. There is no suspicious small or large bowel dilatation. Sigmoid colonic diverticulosis is present, additional diverticula are seen in the left colon. There is no CT evidence for acute diverticulitis. Scattered pelvic phleboliths are p resent. Appendix felt within normal limits from base of cecum in the upper right pelvis. PROSTATE/SEMINAL VESICLES: No gross abnormality seen. LYMPH NODES: No greater than 1cm abdominal or pelvic lymph nodes are appreciated. OSSEOUS STRUCTURES: There is moderate to severe disc space narrowing with subchondral cystic change a nd mild spurring at L4-L5 and L5-S1 levels. Mild to moderate spurring and disc space narrowing L1-L2 level is present. Mild to moderate narrowing with mild spurring both hip joints is noted. OTHER: Moderate plaque in the infrarenal abdominal aorta extends into pelvic iliac branch vessels. IMPRESSION: Diverticulosis without CT evidence for acute diverticulitis. No significant acute findin g is seen to account for patient's clinical symptoms of epigastric pain.
== END | disposition home or self-care (01) ==
LOC: RADCTMAIN 11:01
PROVIDERS: ATTEND Internal Medicine
DX: K57.30 Diverticulosis of large intestine without perforation or abscess without bleeding (principal); R10.13 Epigastric pain
CPT/HCPCS: 82565; 84520; 74177; 36415; Q9967

== ENCOUNTER → 2018-05-01 | Outpatient (CLI) | payer MEDICARE, OTHER ==
--- NOTE | 2018-05-01 12:20 | FL ---
EXAMINATION TYPE: FL barium enema w air contrast DATE OF EXAM: 05/01/2018 COMPARISON: CT abdomen and pelvis from 8 days ago. HISTORY: Failed recent colonoscopy. TECHNIQUE: A double contrast barium enema study is performed. A total of 3 minutes 12 seconds of flu oroscopic time was utilized during procedure. 23 spot images are saved. FINDINGS: [employer] view of the abdomen shows overall non-obstructive bowel gas pattern. Some scattered pelvic phleboliths are seen. There is successful filling to the colon. There is markedly redundant sigmoid colon which makes evalu ation suboptimal especially for polyps. No obstructing or constricting lesion is present. There is pr ominent diverticulosis in the sigmoid colon redemonstrated. Occasional diverticula in the left colon is present. On CT there is short segment of mild to moderate wall thickening in the mid to distal tra nsverse colon, that shows improved aeration contrast opacification on this study. Appendix was filled and appeared normal. The terminal ileum was eventually refluxed on delayed image s. IMPRESSION: No obstructing or constricting neoplasm identified. Prominent sigmoid colonic diverticul osis redemonstrated.
== END | disposition home or self-care (01) ==
LOC: RADFLMAIN 04-23 10:35
PROVIDERS: ATTEND Internal Medicine
DX: K57.30 Diverticulosis of large intestine without perforation or abscess without bleeding (principal)
CPT/HCPCS: 74280

== ENCOUNTER → 2018-09-22 | Outpatient (CLI) | payer MEDICARE, OTHER ==
--- NOTE | 2018-09-26 07:28 | PE ---
EXAMINATION TYPE: PET CT fusion skull to thigh DATE OF EXAM: 09/22/2018 COMPARISON: Chest CT September 19, 2018. CT abdomen and pelvis April 23, 2018. CT low-dose lung screening CT April 18, 2017. HISTORY: Solitary pulmonary nodule , abnormal CT. TECHNIQUE: Following the intravenous administration of 10.449 mCi of F-18 FDG, whole body images are performed from the skull base to the midthigh. Images are reviewed on the computer in the coronal, axial, and sagittal planes. Reconstructed rotating images are created on independent workstation and reviewed on the computer. A noncontrast CT is performed in conjunction with the PET scan. SCAN: Initial Scan FINDINGS: SKULL BASE AND NECK: No areas of suspicious hypermetabolic uptake. CHEST, MEDIASTINUM, AND HILAR REGION: Background moderate to advanced underlying emphysematous change s redemonstrated most prominent in the upper lungs. There is persistent area of triangular shaped mas slike consolidation extending anteriorly inferiorly from the right hilum measuring approximately 4.6 x 3.7 cm axial image 113 without abnormal hypermetabolic uptake, some air bronchograms centrally are present. Finding is new from April 18, 2017 CT. No areas of suspicious hypermetabolic uptake in the thorax are identified. ABDOMEN AND PELVIS: No areas of suspicious hypermetabolic uptake. Normal excretion is seen. OSSEOUS STRUCTURES: No areas of suspicious hypermetabolic uptake. OTHER CT: There is 6 mm calcified nodular granuloma left lower lobe axial image 123. There additional calcified left hilar lymph nodes. Calcifications are also seen scattered throughout the spleen. Find ings are consistent with products of old granulomatous disease. There are prominent right and left pulmonary arteries, CT findings suggestive of underlying pulmonary artery hypertension. Sigmoid colonic diverticulosis is present. There are scattered pelvic phleboliths. Prostate gland is enlarged consistent with BPH. There is mild to moderate calcified plaque of the aorta extending into branch vessels. There is multi level spurring in the thoracolumbar spine. There is facet arthropathy lower lumbar levels. Slight sco liotic curvature is present. IMPRESSION: No suspicious hypermetabolic uptake to suggest hypermetabolic malignancy however a slow-g rowing neoplasm such as bronchioloalveolar carcinoma cannot be excluded. I would favor postinfectious process. Advise follow-up chest CT in 1-2 months time to reassess if there is no improvement in size further investigation with bronchoscopy may be warranted.
== END | disposition home or self-care (01) ==
LOC: RADPETMAIN 12:27
PROVIDERS: ATTEND Internal Medicine
DX: R91.1 Solitary pulmonary nodule (principal)
CPT/HCPCS: 78815; A9552

== ENCOUNTER 2018-09-26 11:06 | Day surgery (SDC) | payer MEDICARE, OTHER ==
[2018-09-19 13:47] VITALS: BMI 17.8
[~2018-09-26 11:06] MED LIST changes: +ALBUTEROL NEB (CONC) 2.5 MG/0.5 ML INHALATION ONE; +LIDOCAINE 2% (PF) 20 MG/ML 5 ML VIAL INHALATION ONE; +LIDOCAINE VISCOUS 300 MG/15 ML CUP MUCOUS MEM ONE; -MIDAZOLAM (PF) 2 MG/2 ML VIAL IV PRN; +SODIUM CHLORIDE 0.9% 1,000 ML IV SCH
[2018-09-26 11:49] VITALS: TEMP 97.8
[2018-09-26] MEDS ORDERED: MIDAZOLAM 2 MG/2 ML VIAL ONE (12:59)
[2018-09-26] MEDS ORDERED: PROPOFOL 10 MG/ML 20 ML VIAL IV ONE (12:59)
[2018-09-26] MEDS ORDERED: KETAMINE 10 MG/ML 20 ML VIAL ONE (12:59)
[2018-09-26] MEDS ORDERED: GLYCOPYRROLATE 0.2 MG/ML 2 ML VIAL ONE (12:59)
[2018-09-26] MEDS ORDERED: LIDOCAINE 1% INJ 10MG/ML (20 ML MDV) ONE (12:59)
[2018-09-26] MEDS ORDERED: LIDOCAINE 2% INJ 20 MG/ML INTRATRACH ONE (13:20)
[2018-09-26 14:35] VITALS: BP 103/71; PULSE 88; RESP 16
[2018-09-26 17:14] LABS: Appearance,BF Cloudy; Color,BF Colorless; Nucleated Cells, Body Fluid 522 /uL; RBC, Body Fluid 556 /uL
[2018-09-26 17:21] LABS: Mononuclear WBC,Body Fluid 2 %; Polynuclear WBC,Body Fluid 98 %; Total Cells Counted,Body Fluid 100
--- NOTE | 2018-09-26 19:02 | PCN ---
PROCEDURE NOTE OPERATIVE REPORT: Bronchoscopy and bronchoalveolar lavage of the right middle lobe. PREOPERATIVE DIAGNOSIS: Right middle lobe consolidation, rule out endobronchial tumor of the right middle lobe. POSTOPERATIVE DIAGNOSIS: Right middle lobe consolidation, no evidence of endobronchial tumor. ANESTHESIA USED: IV conscious sedation. INDICATION FOR THE PROCEDURE: Rule out endobronchial tumor involving the right lower lobe. DESCRIPTION OF PROCEDURE: The patient was prepared according to the bronchoscopy protocol. The patient was placed in the supine position, O2 was applied via nasal cannula. Then, we monitored his O2 saturation continuously. Blood pressure was intermittently monitored and cardiac rhythm was continuously monitored. After adequate IV conscious sedation, the left naris was anesthetized using lidocaine instilled in the left naris. Then the bronchoscope was advanced to the left naris down to the area of the vocal cords. The vocal cords were noted to be patent and free of any lesions. Lidocaine was applied over the vocal cords. The bronchoscope was advanced further down to the trachea, thorough examination was done of the trachea, michael, right upper lobe, right lower lobe, left upper lobe lingula and left lower lobe. Minimal purulent secretions noted in the airways. The right middle lobe bronchus was thoroughly examined, there was no evidence of any tumor, there was however some narrowing, but no endobronchial tumor noted. The narrowing was mostly in the lateral segment of the right middle lobe. But I was able to visualize the segment quite well and no endobronchial tumor was noted. High volume lavage was done of the right middle lobe, the procedure was well tolerated, no evidence of any immediate complications. The fluid was sent for the different diagnostic studies including cultures and cytology. MMODL / IJN: [id number] /
== END 2018-09-26 14:46 | disposition home or self-care (01) ==
LOC: ORWHC2ENDO 11:06
PROVIDERS: ATTEND Internal Medicine
DX: R91.8 Other nonspecific abnormal finding of lung field (principal); J98.19 Other pulmonary collapse; J44.9 Chronic obstructive pulmonary disease, unspecified; K21.9 Gastro-esophageal reflux disease without esophagitis; Z79.51 Long term (current) use of inhaled steroids; Z79.899 Other long term (current) drug therapy; Z88.8 Allergy status to other drugs, medicaments and biological substances
CPT/HCPCS: 94640; 89050; 87070; 87205; 87116; 87102; 87206; 31624; J2001 ×3; J2250; J2704; 88108; 88305

== ENCOUNTER → 2018-11-12 | Outpatient (CLI) | payer MEDICARE, OTHER ==
--- NOTE | 2018-11-13 13:16 | MR ---
EXAMINATION TYPE: MR pancreas wo/w con DATE OF EXAM: 11/12/2018 COMPARISON: CT scan 09/22/2018, CT scan 04/23/2018 HISTORY: Upper abdominal pain CONTRAST: Standard multiplanar, multisequence MRI departmental protocol utilizing 4.5 mL intravenous Gadavist g adolinium contrast. FINDINGS: Exam limited by motion artifact Splenic granuloma noted. There are multiple sub-5 mm areas of signal within the liver which are too s mall to characterize but most typical of tiny cysts. No gallstones. Minimal thickening of the left adrenal gland with no definite nodularity. Right adrenal gland has a n ormal morphology. The bowel gas pattern nonspecific. No free fluid. Aorta of normal caliber. No hydronephrosis or renal mass. Tiny subcentimeter simple left renal cyst noted. Pancreas has a normal appearance. Multilevel degenerative disc disease. Discogenic marrow changes are seen. Right paracentral disc prot rusion at L1-L2. Facet arthropathy and disc bulging most notably at L4-L5 with suspicion of canal jenaro nosis. IMPRESSION: 1. Limited exam due to motion artifact demonstrates no definite acute process. 2. Sub-5 mm multiple focal areas of abnormal signal the liver most suggestive of tiny cysts. 3. Multilevel degenerative disc disease with canal stenosis suspected L4-L5. Right paracentral disc p rotrusion at L1-L2. 4. The stomach is decompressed and limited in assessment. There is concern for gastrointestinal abnor mality correlate with direct visualization as clinically warranted.
== END | disposition home or self-care (01) ==
LOC: RADMRIMAIN 17:55
PROVIDERS: ATTEND Internal Medicine
DX: R93.2 Abnormal findings on diagnostic imaging of liver and biliary tract (principal); R10.9 Unspecified abdominal pain
CPT/HCPCS: 74183; A9585

== ENCOUNTER → 2018-12-03 | Outpatient (CLI) | payer MEDICARE, OTHER ==
--- NOTE | 2018-12-03 12:17 | CT ---
EXAMINATION TYPE: CT chest w con DATE OF EXAM: 12/03/2018 COMPARISON: Chest CT September 19, 2018 and low-dose lung screening CT April 18, 2017. PET/CT September 22 9 HISTORY: pulmonary nodule follow up CT DLP: 123.7 mGycm. Automated Exposure Control for Dose Reduction was Utilized. TECHNIQUE: CT scan of the thorax is performed following with IV Contrast, patient injected with 100 mL of Isovue 300. FINDINGS: LUNGS: Persistent moderate underlying emphysematous change most prominent in the upper lobes. Marked interval improvement in right middle lobe triangular shaped consolidation or atelectasis with some re sidual curvilinear atelectasis abutting mediastinum right middle lobe axial image 44. Stable 4 mm raina undglass nodule in the lingula axial image 44. Stable partially calcified adjacent subcentimeter nodu les left lower lobe axial image 46. Mild bibasilar parenchymal scarring and/or atelectasis. No new murray spicious greater than 5 mm nodules or masses. No pleural effusion or pneumothorax. MEDIASTINUM: There are no greater than 1 cm hilar or mediastinal lymph nodes. No cardiomegaly or pe ricardial effusion is seen. Enlarged left pulmonary artery redemonstrated axial image 30, CT finding suggesting underlying pulmonary hypertension. OTHER: Moderate multilevel spurring. Thoracic spine straightening is seen. IMPRESSION: Interval near-complete resolution of right middle lobe focal atelectasis. Stable tiny nod ularity. No new suspicious nodules or masses.
== END | disposition home or self-care (01) ==
LOC: RADCTMAIN 09:17
PROVIDERS: ATTEND Internal Medicine Critical Care Medicine
DX: R91.8 Other nonspecific abnormal finding of lung field (principal)
CPT/HCPCS: 82565; 84520; 71260; 36415; Q9967

== ENCOUNTER → 2019-01-03 | Outpatient (CLI) | payer MEDICARE, OTHER ==
--- NOTE | 2019-01-03 11:55 | US ---
EXAMINATION TYPE: US abdomen complete DATE OF EXAM: 01/03/2019 COMPARISON: CT dated 12/03/2018, PET dated 09/22/2018, MRI dated 11/12/2018 CLINICAL HISTORY: R10.9 ABD PAIN. EXAM MEASUREMENTS: Liver Length: 9.6 cm Gallbladder Wall: 0.1 cm CBD: 8.4 cm Spleen: 8.4 cm Right Kidney: 10.1 x 4.7 x 4.6 cm Left Kidney: 9.2 x 4.7 x 4.5 cm Extensive overlying bowel gas. Pancreas: Obscured by bowel gas Liver: wnl Gallbladder: wnl Evidence for sonographic Cage's sign: no CBD: wnl Spleen: obscured by overlying bowel gas Right Kidney: Superior pole obscured by bowel gas Left Kidney: Superior pole obscured by bowel gas, mid probable septated cyst measuring 1.0 x 1.0 x 1 .1cm. This was characterized as a cyst on the MRI dated 11/12/2018. Upper IVC: wnl Abd Aorta: mid and distal obscured by overlying bowel gas The liver is homogenous. The intrahepatic portion of the IVC and proximal abdominal aorta are within normal limits. There is no evidence of cholelithiasis. Common bile duct is unremarkable. The spl een is unremarkable. Kidneys are symmetric and free of hydronephrosis. IMPRESSION: 1. The previously seen sub-5 mm possible hepatic cysts on the MR dated 11/12/2018 are not reproduced s onographically. MRI has increased sensitivity in comparison to ultrasound for small cysts. 2. No sonographic evidence of cholelithiasis nor acute cholecystitis. 3. Mildly complex left midpole renal cyst. 4. Obscuration of the pancreas by overlying bowel gas.
== END | disposition home or self-care (01) ==
LOC: RADUSWWP 09:20
PROVIDERS: ATTEND Internal Medicine
DX: N28.1 Cyst of kidney, acquired (principal)
CPT/HCPCS: 76700

== ENCOUNTER 2020-02-26 09:44 | Day surgery (SDC) | payer MEDICARE, OTHER ==
[2020-02-21 10:43] VITALS: BMI 17.4
[~2020-02-26 09:44] MED LIST changes: -ALBUTEROL NEB (CONC) 2.5 MG/0.5 ML INHALATION ONE; -LIDOCAINE 1% 20 ML VIAL (10MG/ML) FOR IV START INTRADERMA PRN; -LIDOCAINE 2% (PF) 20 MG/ML 5 ML VIAL INHALATION ONE; -LIDOCAINE VISCOUS 300 MG/15 ML CUP MUCOUS MEM ONE; -SODIUM CHLORIDE 0.9% 1,000 ML IV SCH
[2020-02-26 10:10] VITALS: TEMP 98.1
[2020-02-26] MEDS ORDERED: LIDOCAINE 1% (10MG/ML) FOR IV START INTRADERMA ONE (10:21)
[2020-02-26] MEDS ORDERED: PROPOFOL 10 MG/ML 20 ML VIAL IV ONE (11:00)
--- NOTE | 2020-02-26 11:13 | P.PCN ---
Date of Procedure: 02/26/20 Procedure(s) Performed: BRIEF HISTORY: Patient is a 70-year-old, pleasant, white male scheduled for an upper endoscopy as a part of epigastric pain. He has decreased Appetite for the last few months duration.. He denies any nausea vomiting. He lost 5 pounds in the last 2-3 months PROCEDURE PERFORMED: Esophagogastroduodenoscopy with biopsy. PREOPERATIVE DIAGNOSIS: Epigastric pain and decreased appetite for the last few months duration. IV sedation per anesthesia. PROCEDURE: After informed consent was obtained, the patient was brought into the endoscopy unit. IV sedation was administered by Anesthesia under continuous monitoring. Initially the Olympus GIF-140 video endoscope was inserted into the mouth. Esophagus intubated without any difficulty. It was gradually advanced into the stomach and duodenum and carefully examined. The bulb and the second part of the duodenum appeared normal. Abscesses were done from the duodenum to rule out celiac disease. The scope at this time was withdrawn to the stomach, adequately insufflated with air, and upon careful examination, mucosa of the an trum, had minimal gastritis and biopsies were done from this area. The body, cardia and the fundus appeared normal. The scope was then withdrawn into the esophagus. The GE junction was located at 39 cm from the incisors. The esophagus appeared normal. There were no erosions or ulcerations seen, biopsies were done from the distal esophagus and the patient tolerated the procedure well. IMPRESSION: 1. Mild antral gastritis. 2. No evidence of esophagitis or peptic ulcer disease. RECOMMENDATIONS: The findings of this examination were discussed with the patient as well as his family. He was advised to follow with the biopsy results. He was advised to continue with Prilosec 20 mg daily and follow antireflux measures.
[2020-02-26 11:16] VITALS: RESP 18
[2020-02-26 11:30] VITALS: BP 140/77; PULSE 80
== END 2020-02-26 12:05 | disposition home or self-care (01) ==
LOC: ORWHC2ENDO 09:44
PROVIDERS: ATTEND Internal Medicine Gastroenterology
DX: K29.50 Unspecified chronic gastritis without bleeding (principal); K21.00 Gastro-esophageal reflux disease with esophagitis, without bleeding; K08.409 Partial loss of teeth, unspecified cause, unspecified class; J44.9 Chronic obstructive pulmonary disease, unspecified; Z79.899 Other long term (current) drug therapy; Z79.51 Long term (current) use of inhaled steroids; Z87.891 Personal history of nicotine dependence
CPT/HCPCS: 88305; 43239; J2704

== ENCOUNTER 2020-05-12 23:51 | Inpatient (IN) | payer MEDICARE, OTHER ==
[2020-05-13] MEDS ORDERED: IPRATROPIUM 0.5 MG/2.5 ML NEBU INHALATION STA (00:02)
[2020-05-13] MEDS ORDERED: SODIUM CHLORIDE 0.9% 1,000 ML IV STA (00:02)
[2020-05-13] MEDS ORDERED: methylPREDNISolone SOD SUCCI 125 MG/2 ML VIAL IV STA (00:02)
[2020-05-13] MEDS ORDERED: ALBUTEROL NEBULIZED 2.5 MG/3 ML INHALATION STA (00:02)
[2020-05-13] MEDS ORDERED: MORPHINE SULFATE 2 MG/ML SYRINGE IVP STA (00:03)
--- NOTE | 2020-05-13 00:03 | ED ---
SOB HPI - General Stated Complaint: PIERCE Time Seen by Provider: 05/12/20 23:58 Source: patient, RN notes reviewed, old records reviewed Mode of arrival: wheelchair Limitations: no limitations - History of Present Illness Initial Comments: This is a 70-year-old male to the ER for evaluation patient has no history of COPD coming in for severe shortness of breath severe weakness. Patient states he cannot seem to catch his breath. Patient has no pain no travel history no sick contacts. Denying any fevers he does have increased denying any fevers he does have increased cough and congestion MD Complaint: shortness of breath -: days(s) Severity: moderate Severity scale (1-10): 4 Quality: aching Consistency: constant Improves With: oxygen, bronchodilators Worsens With: exertion Known History Of: COPD Context: recent URI Associated Symptoms: denies other symptoms Treatments Prior to Arrival: oxygen, bronchodilator - Related Data Home Medications Medication Instructions Recorded Confirmed Omeprazole 20 mg PO DAILY 02/23/18 05/13/20 Albuterol Inhaler [Ventolin Hfa 2 puff INHALATION RT-QID PRN 01/22/20 05/13/20 Inhaler] Multivitamins, Thera [Multivitamin 1 tab PO DAILY 01/22/20 05/13/20 (formulary)] Tiotropium Br/Olodaterol HCl 2 puff INHALATION RT-DAILY 05/13/20 05/13/20 [Stiolto Respimat Inhal [place]] Previous Rx's Medication Instructions Recorded Doxycycline [Vibramycin] 100 mg PO BID #8 cap 05/15/20 Nystatin 100,000 Unit/ml Susp 5 ml PO QID 14 Days #1 bottle 05/15/20 [Mycostatin Oral Susp] guaiFENesin [Mucinex] 600 mg PO BID #60 tablet.er 05/15/20 predniSONE [Deltasone] 0 mg PO DIRECTED #11 tab 05/15/20 Allergies Allergy/AdvReac Type Severity Reaction Status Date / Time No Known Allergies Allergy Verified 05/13/20 07:24 Review of Systems ROS Statement: Those systems with pertinent positive or pertinent negative responses have been documented in the HPI. ROS Other: All systems not noted in ROS Statement are negative. Past Medical History Past Medical History: COPD, GERD/Reflux Additional Past Medical History / Comment(s): Current upper abdominal pain, affecting appetite. History of Any Multi-Drug Resistant Organisms: None Reported Past Surgical History: Orthopedic Surgery, Tonsillectomy Additional Past Surgical History / Comment(s): Right shoulder arthroscopy. Colonoscopy. Past Anesthesia/Blood Transfusion Reactions: No Reported Reaction Past Psychological History: No Psychological Hx Reported Smoking Status: Current every day smoker Past Alcohol Use History: None Reported Past Drug Use History: None Reported - Past Family History Father Family Medical History: Cancer General Exam Limitations: no limitations General appearance: alert, in no apparent distress Head exam: Present: atraumatic, normocephalic, normal inspection Eye exam: Present: normal appearance, PERRL, EOMI. Absent: scleral icterus, conjunctival injection, periorbital swelling ENT exam: Present: normal exam, mucous membranes moist Neck exam: Present: normal inspection. Absent: tenderness, meningismus, lymphadenopathy Respiratory exam: Present: wheezes, accessory muscle use, decreased breath sounds, prolonged expiratory. Absent: respiratory distress, rales, rhonchi, stridor Cardiovascular Exam: Present: regular rate, normal rhythm, normal heart sounds. Absent: systolic murmur, diastolic murmur, rubs, gallop, clicks GI/Abdominal exam: Present: soft, normal bowel sounds. Absent: distended, t enderness, guarding, rebound, rigid Extremities exam: Present: normal inspection, full ROM, normal capillary refill. Absent: tenderness, pedal edema, joint swelling, calf tenderness Back exam: Present: normal inspection Neurological exam: Present: alert, oriented X3, CN II-XII intact Psychiatric exam: Present: normal affect, normal mood Skin exam: Present: warm, dry, intact, normal color. Absent: rash Course Vital Signs 05/13/20 05/13/20 05/13/20 00:00 00:16 00:29 Temperature 98 F Pulse Rate 113 H 100 104 H Respiratory 36 H Rate Blood Pressure 126/81 O2 Sat by Pulse 75 L Oximetry 05/13/20 05/13/20 01:38 03:36 Temperature Pulse Rate 100 65 Respiratory 22 17 Rate Blood Pressure 106/65 110/60 O2 Sat by Pulse 97 98 Oximetry - Reevaluation(s) Reevaluation #1: Medical record is reviewed Patient has no improve symptoms here in the ER Patient again denies any complaints of pain Medical Decision Making - Medical Decision Making 70 male who will be admitted for severe COPD exacerbation - Lab Data Result diagrams: 05/13/20 00:05 05/13/20 00:05 Lab Results 05/13/20 05/13/20 05/13/20 Range/Units 00:05 00:05 00:05 WBC 10.5 (3.8-10.6) k/uL RBC 4.82 (4.30-5.90) m/uL Hgb 14.5 (13.0-17.5) gm/dL Hct 44.8 (39.0-53.0) % MCV 92.8 (80.0-100.0) fL MCH 30.1 (25.0-35.0) pg MCHC 32.5 (31.0-37.0) g/dL RDW 13.0 (11.5-15.5) % Plt Count 316 (150-450) k/uL MPV 7.1 Neutrophils % 54 % Lymphocytes % 31 % Monocytes % 6 % Eosinophils % 6 % Basophils % 1 % Neutrophils # 5.7 (1.3-7.7) k/uL Lymphocytes # 3.2 (1.0-4.8) k/uL Monocytes # 0.6 (0-1.0) k/uL Eosinophils # 0.7 (0-0.7) k/uL Basophils # 0.1 (0-0.2) k/uL PT 9.6 (9.0-12.0) sec INR 0.9 (<1.2) APTT 22.7 (22.0-30.0) sec Sodium 139 (137-145) mmol/L Potassium 3.9 (3.5-5.1) mmol/L Chloride 98 (98-107) mmol/L Carbon Dioxide 33 H (22-30) mmol/L Anion Gap 8 mmol/L BUN 14 (9-20) mg/dL Creatinine 0.84 (0.66-1.25) mg/dL Est GFR (CKD-EPI)AfAm >90 (>60 ml/min/1.73 sqM) Est GFR (CKD-EPI)NonAf 89 (>60 ml/min/1.73 sqM) Glucose 108 H (74-99) mg/dL Plasma Lactic Acid Luciano (0.7-2.0) mmol/L Calcium 9.6 (8.4-10.2) mg/dL Magnesium 1.9 (1.6-2.3) mg/dL Total Bilirubin 0.4 (0.2-1.3) mg/dL AST 31 (17-59) U/L ALT 19 (4-49) U/L Alkaline Phosphatase 60 (38-126) U/L Creatine Kinase 67 (55-170) U/L Troponin I (0.000-0.034) ng/mL NT-Pro-B Natriuret Pep pg/mL Total Protein 6.8 (6.3-8.2) g/dL Albumin 4.3 (3.5-5.0) g/dL Lipase (23-300) U/L 05/13/20 05/13/20 05/13/20 Range/Units 00:05 00:05 00:05 WBC (3.8-10.6) k/uL RBC (4.30-5.90) m/uL Hgb (13.0-17.5) gm/dL Hct (39.0-53.0) % MCV (80.0-100.0) fL MCH (25.0-35.0) pg MCHC (31.0-37.0) g/dL RDW (11.5-15.5) % Plt Count (150-450) k/uL MPV Neutrophils % % Lymphocytes % % Monocytes % % Eosinophils % % Basophils % % Neutrophils # (1.3-7.7) k/uL Lymphocytes # (1.0-4.8) k/uL Monocytes # (0-1.0) k/uL Eosinophils # (0-0.7) k/uL Basophils # (0-0.2) k/uL PT (9.0-12.0) sec INR (<1.2) APTT (22.0-30.0) sec Sodium (137-145) mmol/L Potassium (3.5-5.1) mmol/L Chloride (98-107) mmol/L Carbon Dioxide (22-30) mmol/L Anion Gap mmol/L BUN (9-20) mg/dL Creatinine (0.66-1.25) mg/dL Est GFR (CKD-EPI)AfAm (>60 ml/min/1.73 sqM) Est GFR (CKD-EPI)NonAf (>60 ml/min/1.73 sqM) Glucose (74-99) mg/dL Plasma Lactic Acid Luciano 1.5 (0.7-2.0) mmol/L Calcium (8.4-10.2) mg/dL Magnesium (1.6-2.3) mg/dL Total Bilirubin (0.2-1.3) mg/dL AST (17-59) U/L ALT (4-49) U/L Alkaline Phosphatase (38-126) U/L Creatine Kinase (55-170) U/L Troponin I <0.012 (0.000-0.034) ng/mL NT-Pro-B Natriuret Pep 133 pg/mL Total Protein (6.3-8.2) g/dL Albumin (3.5-5.0) g/dL Lipase (23-300) U/L 05/13/20 Range/Units 00:10 WBC (3.8-10.6) k/uL RBC (4.30-5.90) m/uL Hgb (13.0-17.5) gm/dL Hct (39.0-53.0) % MCV (80.0-100.0) fL MCH (25.0-35.0) pg MCHC (31.0-37.0) g/dL RDW (11.5-15.5) % Plt Count (150-450) k/uL MPV Neutrophils % % Lymphocytes % % Monocytes % % Eosinophils % % Basophils % % Neutrophils # (1.3-7.7) k/uL Lymphocytes # (1.0-4.8) k/uL Monocytes # (0-1.0) k/uL Eosinophils # (0-0.7) k/uL Basophils # (0-0.2) k/uL PT (9.0-12.0) sec INR (<1.2) APTT (22.0-30.0) sec Sodium (137-145) mmol/L Potassium (3.5-5.1) mmol/L Chloride (98-107) mmol/L Carbon Dioxide (22-30) mmol/L Anion Gap mmol/L BUN (9-20) mg/dL Creatinine (0.66-1.25) mg/dL Est GFR (CKD-EPI)AfAm (>60 ml/min/1.73 sqM) Est GFR (CKD-EPI)NonAf (>60 ml/min/1.73 sqM) Glucose (74-99) mg/dL Plasma Lactic Acid Luciano (0.7-2.0) mmol/L Calcium (8.4-10.2) mg/dL Magnesium (1.6-2.3) mg/dL Total Bilirubin (0.2-1.3) mg/dL AST (17-59) U/L ALT (4-49) U/L Alkaline Phosphatase (38-126) U/L Creatine Kinase (55-170) U/L Troponin I (0.000-0.034) ng/mL NT-Pro-B Natriuret Pep pg/mL Total Protein (6.3-8.2) g/dL Albumin (3.5-5.0) g/dL Lipase 228 (23-300) U/L - EKG Data -: EKG Interpreted by Me (EKG shows sinus rhythm rate 100 OH 122 QRS 72 QTc 425) - Radiology Data Radiology results: report reviewed (Chest x-ray CT chest 7 pelvis is negative for significant acute disease), image reviewed Critical Care Time Critical Care Time: Yes Total Critical Care Time: 31 Disposition Clinical Impression: COPD exacerbation, Hypoxia, Acute exacerbation of chronic bronchitis Disposition: ADMITTED IP TO THIS HOSP Condition: Good Is patient prescribed a controlled substance at d/c from ED?: No
[2020-05-13] MEDS ORDERED: MORPHINE SULFATE 4 MG/ML SYRINGE IVP STA (00:12)
[2020-05-13] MEDS ORDERED: MORPHINE SULFATE 4 MG/ML SYRINGE IVP PRN (00:12)
[2020-05-13 00:22] LABS: Basophils # (A) 0.1 k/uL (0-0.2); Basophils % (A) 1 %; Eosinophils # (A) 0.7 k/uL (0-0.7); Eosinophils % (A) 6 %; HCT 44.8 % (39.0-53.0); HGB 14.5 gm/dL (13.0-17.5); Lymphocytes # (A) 3.2 k/uL (1.0-4.8); Lymphocytes % (A) 31 %; MCH 30.1 pg (25.0-35.0); MCHC 32.5 g/dL (31.0-37.0); MCV 92.8 fL (80.0-100.0); Mean Platelet Volume 7.1; Monocytes # (A) 0.6 k/uL (0-1.0); Monocytes % (A) 6 %; Neutrophils # (A) 5.7 k/uL (1.3-7.7); Neutrophils % (A) 54 %; Platelet Count 316 k/uL (150-450); RBC 4.82 m/uL (4.30-5.90); WBC 10.5 k/uL (3.8-10.6)
[2020-05-13 00:30] LABS: INR 0.9 (<1.2); Partial Thromboplastin Time 22.7 sec (22.0-30.0); Prothrombin Time 9.6 sec (9.0-12.0)
[2020-05-13 00:35] LABS: ALT 19 U/L (4-49); AST 31 U/L (17-59); African American GFR (CKD) >90 (>60 ml/min/1.73 sqM); Albumin 4.3 g/dL (3.5-5.0); Alkaline Phosphatase 60 U/L (38-126); Anion Gap 8 mmol/L; Blood Urea Nitrogen 14 mg/dL (9-20); Calcium 9.6 mg/dL (8.4-10.2); Carbon Dioxide 33 mmol/L (22-30); Chloride 98 mmol/L (98-107); Creatine Kinase 67 U/L (55-170); Glucose 108 mg/dL (74-99); Magnesium 1.9 mg/dL (1.6-2.3); Non-African American GFR(CKD) 89 (>60 ml/min/1.73 sqM); Sodium 139 mmol/L (137-145); Total Bilirubin 0.4 mg/dL (0.2-1.3); Total Protein 6.8 g/dL (6.3-8.2)
[2020-05-13 00:52] LABS: Potassium 3.9 mmol/L (3.5-5.1)
--- NOTE | 2020-05-13 01:24 | XR ---
EXAM: XR Chest, 1 View CLINICAL HISTORY: ITS.REASON XR Reason: sob TECHNIQUE: Frontal view of the chest. COMPARISON: September 02, 2019 FINDINGS: Lungs: The lungs are moderately hyperinflated with slightly coarse interstitial markings throughout both lungs consistent with emphysema, unchanged. No new infiltrates identified. Pleural space: Unremarkable. No pneumothorax. Heart: Unremarkable. No cardiomegaly. Mediastinum: Unremarkable. Bones/joints: Previous distal right clavicle resection. IMPRESSION: The lungs are moderately hyperinflated with slightly coarse interstitial markings throughout both lungs consistent with emphysema, unchanged. No new infiltrates identified.
[2020-05-13] MEDS ORDERED: IPRATROPIUM-ALBUTEROL 3 ML NEB INHALATION STA (02:17)
--- NOTE | 2020-05-13 02:17 | CT ---
EXAM: CT Angiography Chest With Intravenous Contrast CLINICAL HISTORY: ITS.REASON CT Reason: pain TECHNIQUE: Axial computed tomographic angiography images of the chest with intravenous contrast. CTDI is 12.13 mGy and DLP is 327.6 mGy-cm. This CT exam was performed using one or more of the following dose reduction techniques: automated exposure control, adjustment of the mA and/or kV according to patient size, and/or use of iterative reconstruction technique. MIP reconstructed images were created and reviewed. COMPARISON: No relevant prior studies available. FINDINGS: Pulmonary arteries: The pulmonary arterial tree is well-opacified with contrast. No pulmonary emboli are identified. Aorta: The thoracic aorta is nondilated. There is no aneurysm or dissection. Lungs: There is severe emphysematous changes in the lungs with small areas of infiltrate or atelectasis on the medial aspect of the right lower middle lobe and inferior aspect of the right lower lobe consistent with pneumonia or atelectasis. Diffuse bronchial wall thickening is present consistent bronchitis. No mass. Pleural space: Unremarkable. No significant effusion. No pneumothorax. Heart: Unremarkable. No cardiomegaly. No significant pericardial effusion. No evidence of RV dysfunction. Bones/joints: Mild multilevel osteophytosis throughout the thoracic spine. No acute fracture or destructive bone lesion is seen. No dislocation. Soft tissues: Unremarkable. Lymph nodes: Unremarkable. No enlarged lymph nodes. IMPRESSION: There are severe emphysematous changes in the lungs with small areas of infiltrate or atelectasis on the medial aspect of the right lower middle lobe and inferior aspect of the right lower lobe consistent with pneumonia or atelectasis. Diffuse bronchial wall thickening is present consistent bronchitis. No evidence of pulmonary embolism or acute aortic abnormality.
--- NOTE | 2020-05-13 02:24 | CT ---
EXAM: CT Abdomen and Pelvis With Intravenous Contrast CLINICAL HISTORY: ITS.REASON CT Reason: pain TECHNIQUE: Axial computed tomography images of the abdomen and pelvis with intravenous contrast. CTDI is 12.13 mGy and DLP is 327.6 mGy-cm. This CT exam was performed using one or more of the following dose reduction techniques: automated exposure control, adjustment of the mA and/or kV according to patient size, and/or use of iterative reconstruction technique. COMPARISON: April 23, 2018 FINDINGS: Lung bases: Mild to moderate emphysematous changes in the lung bases. There are no infiltrates. ABDOMEN: Liver: Unremarkable. No mass. Gallbladder and bile ducts: Unremarkable. No calcified stones. No ductal dilation. Pancreas: Unremarkable. No mass. No ductal dilation. Spleen: Unremarkable. No splenomegaly. Adrenals: Unremarkable. No mass. Kidneys and ureters: Delayed images show normal renal contrast excretion bilaterally. No hydronephrosis. Stomach and bowel: Diverticulosis of the sigmoid colon. No surrounding inflammation is seen to suggest acute diverticulitis. PELVIS: Appendix: The appendix is normal. There is a large amount of stool in the cecum measuring 6.1 cm suggesting mild constipation. No acute inflammatory changes are seen involving the bowel. Bladder: The urinary bladder is mostly decompressed and unremarkable. Reproductive: Unremarkable as visualized. ABDOMEN and PELVIS: Intraperitoneal space: Unremarkable. No free air. No significant fluid collection. Bones/joints: Moderate degenerative disease in the lower lumbar spine. No acute fracture or subluxation is seen. Soft tissues: Unremarkable. Vasculature: Calcification of a nondilated abdominal aorta. Lymph nodes: Unremarkable. No enlarged lymph nodes. IMPRESSION: The appendix is normal. There is a large amount of stool in the cecum measuring 6.1 cm suggesting mild constipation. Diverticulosis of the sigmoid colon without signs of acute diverticulitis. No acute inflammatory changes are seen involving the bowel.
[2020-05-13] MEDS ORDERED: methylPREDNISolone SOD SUCCI 125 MG/2 ML VIAL IV SCH (06:00)
[2020-05-13] MEDS: IPRATROPIUM-ALBUTEROL 3 ML NEB INHALATION SCH ×5 (08:40→20:14)
[2020-05-13] MEDS: methylPREDNISolone SOD SUCCI 40 MG/ML 1 ML VIAL IV SCH ×3 (12:14→22:47)
[2020-05-13 13:10] VITALS: BMI 17.4
[2020-05-13] MEDS: FORMOTEROL FUMARATE 20 MCG/2 ML NEBU INHALATION SCH ×2 (15:24→20:14)
[2020-05-13] MEDS: BUDESONIDE 1 MG/2 ML NEBU INHALATION SCH ×2 (15:24→20:14)
[2020-05-13] MEDS: ENOXAPARIN 40 MG/0.4 ML SYRINGE SQ SCH (18:14)
[2020-05-13] MEDS ORDERED: LACTULOSE 20 GM/30 ML CUP PO ONE (22:17)
--- NOTE | 2020-05-13 22:17 | P.HPIM ---
History of Present Illness H&P Date: 05/13/20 Chief Complaint: Shortness of breath History of presenting complaint: This is a pleasant 70-year-old patient of Dr. Darnell Hodge. Long-standing smoker. No down to a few cigarettes a day. Has been baseline shortness of breath. Now presents with worsening short of breath for at least 1 or 2 days. With the cough. Some white sputum. No fever no chills. Appetite is gone down for one or 2 weeks. Also has lost some weight. Tired rundown. Limited excess tolerance because of the same Review of systems: GEN.: Tired, decreased appetite EYES: None HEENT: None NECK: None RESPIRATORY: As above CARDIOVASCULAR: None GASTROINTESTINAL: None GENITOURINARY: None MUSCULOSKELETAL: None LYMPHATICS: None HEMATOLOGICAL: None PSYCHIATRY: Slightly anxious NEUROLOGICAL: None Past medical history to include: Insomnia, GERD, COPD, Social history: . 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 Down to couple of cigarettes a day. No alcohol Physical examination: VITAL SIGNS: 98, 113, 36, 126th 81, 75% on room air GENERAL: BMI 17.5, sitting up, short of breath. EYES: Pupils equal. Conjunctiva normal. HEENT: External appearance of nose and ears normal, oral cavity grossly normal. NECK: JVD not raised; masses not palpable. HEART: First and second heart sounds are normal; no edema. LUNGS: Respiratory rate increased, diminished breath sounds prolonged expiration asked to see muscles are working, not able to speak in full sentences. ABDOMEN: Soft, nontender, liver spleen not palpable, no masses palpable. PSYCH: [Alert and oriented x3; mood and affect anxious l. NEUROLOGICAL: Cranial nerves grossly intact; no facial asymmetry, power and sensation grossly intact. LYMPHATICS: No lymph nodes palpable in the axilla and neck INVESTIGATIONS, reviewed in the clinical context: White count 10.5 hemoglobin 14.5 platelets 316 potassium 3.9 creatinine 0.84 Troponin I less than 0.012 proBNP 133 Coronavirus [PCR]-not detected EKG tracing personally reviewed by me-sinus rhythm, P pulmonale Chest x-ray film-hyperinflated, coarse interstitial markings Chest CT-negative for PE severe emphysema changes and some other changes noted Computed tomography scan of the abdomen-large amount of stool in the cecum. Colonic diverticulosis. Assessment and plan: -Acute severe COPD exacerbation in a current smoker. Patient started on bronch odilators, IV and inhaled steroids. Consult pulmonary -Acute hypoxic respiratory failure from COPD exacerbation, placed on oxygen supplementation -Chronic insomnia for medical reasons, use melatonin -Moderate protein calorie malnutrition with a BMI of 17.5. Decreased oral intake. Add ensure. Consult dietitian. -Sigmoid diverticulosis, asymptomatic -Severe obstipation. We'll give the patient lactulose. And also had Metamucil. -DVT prophylaxis started on Lovenox. -Chronic nicotine dependence patient cigarette smoker. Nicotine patch added Smoke cessation counseling: This was done with the patient. Nicotine patch is being given. More than 3 minutes was spent for this Given the severity of patient's condition expect patient to be in the hospital for more than 2 nights Past Medical History Past Medical History: COPD, GERD/Reflux Additional Past Medical History / Comment(s): Current upper abdominal pain, affecting appetite. History of Any Multi-Drug Resistant Organisms: None Reported Past Surgical History: Orthopedic Surgery, Tonsillectomy Additional Past Surgical History / Comment(s): Right shoulder arthroscopy. Colonoscopy. Past Anesthesia/Blood Transfusion Reactions: No Reported Reaction Past Psychological History: No Psychological Hx Reported Additional Psychological History / Comment(s): panicky at times Smoking Status: Current every day smoker Past Alcohol Use History: None Reported Additional Past Alcohol Use History / Comment(s): Smoked for about 30 yrs, 2 cigarettes per day, quit 6 weeks ago. Past Drug Use History: None Reported - Past Family History Father Family Medical History: Cancer Medications and Allergies Home Medications Medication Instructions Recorded Confirmed Type Omeprazole 20 mg PO DAILY 02/23/18 05/13/20 History Albuterol Inhaler [Ventolin Hfa 2 puff INHALATION RT-QID PRN 01/22/20 05/13/20 History Inhaler] Ipratropium-Albuterol Nebulize 3 ml INHALATION RT-QID PRN 01/22/20 05/13/20 History [Duoneb 0.5 mg-3 mg/3 ml Soln] Multivitamins, Thera [Multivitamin 1 tab PO DAILY 01/22/20 05/13/20 History (formulary)] Tiotropium Br/Olodaterol HCl 2 puff INHALATION RT-DAILY 05/13/20 05/13/20 History [Stiolto Respimat Inhal [place]] Allergies Allergy/AdvReac Type Severity Reaction Status Date / Time No Known Allergies Allergy Verified 05/13/20 07:24 Physical Exam Vitals: Vital Signs Temp Pulse Pulse Resp BP BP Pulse Ox 05/13/20 08:51 71 05/13/20 08:40 74 05/13/20 07:30 97.9 F 71 18 96/61 96 05/13/20 04:15 97.6 F 80 19 101/63 97 05/13/20 03:36 65 17 110/60 98 05/13/20 01:38 100 22 106/65 97 05/13/20 00:29 104 H 05/13/20 00:16 100 05/13/20 00:00 98 F 113 H 36 H 126/81 75 L Intake and Output 05/12/20 05/13/20 05/13/20 22:59 06:59 14:59 Other: Weight 47.627 kg Results CBC & Chem 7: 05/13/20 00:05 05/13/20 00:05 Labs: Abnormal Lab Results - Last 24 Hours (Table) 05/13/20 Range/Units 00:05 Carbon Dioxide 33 H (22-30) mmol/L Glucose 108 H (74-99) mg/dL Thrombosis Risk Factor Assmnt - Choose All That Apply Any of the Below Risk Factors Present?: Yes Each Factor Represents 1 point: Abnormal pulmonary function (COPD) Other Risk Factors: Yes Each Risk Factor Represents 2 Points: Age 61-74 years Thrombosis Risk Factor Assessment Total Risk Factor Score: 3 Thrombosis Risk Factor Assessment Level: Moderate Risk
[2020-05-13] MEDS: DOXYCYCLINE 100 MG CAP PO SCH (22:48)
[2020-05-13] MEDS: PSYLLIUM HUSK 100% 6 GM PACKET PO SCH (22:48)
[2020-05-14] MEDS: IPRATROPIUM-ALBUTEROL 3 ML NEB INHALATION SCH ×6 (00:48→20:06)
[2020-05-14] MEDS: methylPREDNISolone SOD SUCCI 40 MG/ML 1 ML VIAL IV SCH ×4 (05:08→23:34)
[2020-05-14 06:43] LABS: Glucose,Whole Blood 165 mg/dL (75-99)
[2020-05-14] MEDS: BUDESONIDE 1 MG/2 ML NEBU INHALATION SCH ×2 (07:42→20:06)
[2020-05-14] MEDS: FORMOTEROL FUMARATE 20 MCG/2 ML NEBU INHALATION SCH ×2 (07:42→20:06)
[2020-05-14] MEDS: ENOXAPARIN 40 MG/0.4 ML SYRINGE SQ SCH (08:15)
[2020-05-14] MEDS: INSULIN ASPART (NovoLOG) 100 UNIT/ML VIAL SQ SCH ×4 (08:15→19:56)
[2020-05-14] MEDS: DOXYCYCLINE 100 MG CAP PO SCH ×2 (08:15→19:56)
[2020-05-14] MEDS: PSYLLIUM HUSK 100% 6 GM PACKET PO SCH ×2 (08:16→19:55)
[2020-05-14 11:34] LABS: Glucose,Whole Blood 131 mg/dL (75-99)
--- NOTE | 2020-05-14 14:43 | P.CNPUL ---
History of Present Illness Consult date: 05/14/20 Requesting physician: Thaddeus Deluca Reason for consult: dyspnea, cough, COPD, hypoxemia, abnormal CXR/CT Chief complaint: Dyspnea, cough or phlegm production History of present illness: 70-year-old white male patient with history of emphysema wears oxygen at bedtime on a regular basis, long time smoker, currently down to 4 cigarettes a day. Patient has chronic shortness of breath. He came into the emergency department with complaints of worsening shortness of breath for one or 2 days prior to presentation, increased cough and production of white colored phlegm, denied any fever or chills. He is feeling fatigued, his appetite has been poor, but denied any nausea vomiting or diarrhea. Patient follows with Dr. Sherwood, last time he seen Dr. Sherwood in the office was 1-1-1/2 years ago. He is on Stiolto inhaler on a regular basis, albuterol, and DuoNeb. Denies any sick contacts, his chest x-ray in the emergency department showed a moderately hyperinflated lungs with slightly coarse interstitial markings consistent with emphysema no new infiltrates. CTA chest showed severe emphysematous changes in the lungs with small areas of infiltrate or atelectasis in the medial aspect of the right lower and right middle lobe. No CT evidence of pulmonary embolism. EKG showed normal sinus rhythm. CBC within normal limits, anticoagulation profile is within normal limits, electrolytes with the exception of CO2 which is at 33 within normal limits, renal profile is unremarkable. Troponin was less than 0.012, LFTs within normal limits, lipase is 228, COVID [address] of the abdomen and pelvis showed large amount of stool in the cecum suggesting mild constipation, and diverticulosis of the sigmoid colon without signs of acute diverticulitis. Patient was started on steroids, nebulized bronchodilators and doxycycline, he is improving, feeling better today. Review of Systems All systems: negative Constitutional: Denies chills, Denies fever Eyes: denies blurred vision, denies pain Ears, nose, mouth and throat: Denies headache, Denies sore throat Cardiovascular: Denies chest pain, Denies shortness of breath Respiratory: Reports cough with sputum, Reports dyspnea, Reports home oxygen, Reports wheezing, Denies cough Gastrointestinal: Denies abdominal pain, Denies diarrhea, Denies nausea, Denies vomiting Musculoskeletal: Denies myalgias Integumentary: Denies pruritus, Denies rash Neurological: Denies numbness, Denies weakness Psychiatric: Denies anxiety, Denies depression Endocrine: Denies fatigue, Denies weight change Past Medical History Past Medical History: COPD, GERD/Reflux Additional Past Medical History / Comment(s): Current upper abdominal pain, affecting appetite. History of Any Multi-Drug Resistant Organisms: None Reported Past Surgical History: Orthopedic Surgery, Tonsillectomy Additional Past Surgical History / Comment(s): Right shoulder arthroscopy. Colonoscopy. Past Anesthesia/Blood Transfusion Reactions: No Reported Reaction Past Psychological History: No Psychological Hx Reported Additional Psychological History / Comment(s): panicky at times Smoking Status: Current every day smoker Past Alcohol Use History: None Reported Additional Past Alcohol Use History / Comment(s): Smoked for about 30 yrs, 2 cigarettes per day, quit 6 weeks ago. Past Drug Use History: None Reported - Past Family History Father Family Medical History: Cancer Medications and Allergies Home Medications Medication Instructions Recorded Confirmed Type Omeprazole 20 mg PO DAILY 02/23/18 05/13/20 History Albuterol Inhaler [Ventolin Hfa 2 puff INHALATION RT-QID PRN 01/22/20 05/13/20 History Inhaler] Ipratropium-Albuterol Nebulize 3 ml INHALATION RT-QID PRN 01/22/20 05/13/20 History [Duoneb 0.5 mg-3 mg/3 ml Soln] Multivitamins, Thera [Multivitamin 1 tab PO DAILY 01/22/20 05/13/20 History (formulary)] Tiotropium Br/Olodaterol HCl 2 puff INHALATION RT-DAILY 05/13/20 05/13/20 History [Stiolto Respimat Inhal [place]] Allergies Allergy/AdvReac Type Severity Reaction Status Date / Time No Known Allergies Allergy Verified 05/13/20 07:24 Physical Exam Vitals: Vital Signs Temp Pulse Pulse Resp BP Pulse Ox 05/14/20 14:00 98.5 F 92 18 103/59 98 05/14/20 11:13 93 05/14/20 11:03 90 05/14/20 08:04 92 05/14/20 07:55 93 05/14/20 07:54 93 05/14/20 07:43 90 05/14/20 07:40 98.6 F 101 H 18 101/61 92 L 05/14/20 02:09 98.0 F 92 18 95/57 94 L 05/14/20 01:24 71 05/14/20 00:48 71 05/13/20 20:36 76 05/13/20 20:29 76 05/13/20 20:16 74 05/13/20 20:00 20 05/13/20 18:56 98.1 F 72 20 101/57 97 05/13/20 15:33 77 05/13/20 15:25 75 05/13/20 14:42 97.9 F 68 18 106/57 98 Intake and Output 05/13/20 05/14/20 05/14/20 22:59 06:59 14:59 Intake Total 360 Output Total 600 Balance -240 Intake: Oral 360 Output: Urine 600 Other: # Voids 2 GENERAL EXAM: Alert, very pleasant, 70-year-old white male, on 2 L of oxygen and the pulse ox of 98% comfortable in no apparent distress. HEAD: Normocephalic/atraumatic. EYES: Normal reaction of pupils, equal size. Conjunctiva pink, sclera white. NOSE: Clear with pink turbinates. THROAT: No erythema or exudates. NECK: No masses, no JVD, no thyroid enlargement, no adenopathy. CHEST: No chest wall deformity. Symmetrical expansion. LUNGS: Diminished air entry with end expiratory wheezing on forced exhale maneuver CVS: Regular rate and rhythm, normal S1 and S2, no gallops, no murmurs, no rubs ABDOMEN: Soft, nontender. No hepatosplenomegaly, normal bowel sounds, no guarding or rigidity. EXTREMITIES: No clubbing, no edema, no cyanosis, 2+ pulses and upper and lower extremities. MUSCULOSKELETAL: Muscle strength and tone normal. SPINE: No scoliosis or deformity SKIN: No rashes CENTRAL NERVOUS SYSTEM: Alert and oriented -3. No focal deficits, tone is normal in all 4 extremities. PSYCHIATRIC: Alert and oriented -3. Appropriate affect. Intact judgment and insight. Results - Laboratory Findings CBC and BMP: 05/13/20 00:05 05/13/20 00:05 PT/INR, D-dimer PT 9.6 sec (9.0-12.0) 05/13/20 00:05 INR 0.9 (<1.2) 05/13/20 00:05 Abnormal lab findings: Abnormal Labs 05/13/20 05/14/20 05/14/20 00:05 06:41 11:32 Carbon Dioxide 33 H Glucose 108 H POC Glucose (mg/dL) 165 H 131 H - Diagnostic Findings Chest x-ray: report reviewed, image reviewed CT scan - chest: report reviewed, image reviewed Assessment and Plan Plan: Assessment: #1. Acute exacerbation of chronic obstructive pulmonary disease, no CT evidence of pulmonary embolism, chest x-ray showed no acute pulmonary process. COVID 19 PCR negative #2. Advanced COPD on home oxygen at bedtime on a regular basis #3. Chronic and ongoing history of smoking, used to smoke 2 packs a day for 30 years, currently down to 4 cigarettes daily #4. Abdominal pain, CT of abdomen and pelvis showed mild constipation, diverticulosis without diverticulitis #5. GERD/reflux Plan: Continue nebulized bronchodilators IV steroids and antibiotics. Patient is feeling better, still wheezy, and dyspneic, not quite ready for discharge, we'll continue current medical treatment, continue GI and DVT prophylaxis, chest x- rays and CT chest has been reviewed. We'll continue to follow, patient is to fo llow-up with Dr. Sherwood after discharge within 7-10 days I performed a history & physical examination of the patient and discussed their management with my nurse practitioner, Tootie López. I reviewed the nurse practitioner's note and agree with the documented findings and plan of care. Lung sounds are positive for diminished breath sounds.. The findings and the impression was discussed with the patient. I attest to the documentation by the nurse practitioner. Time with Patient: Greater than 30
[2020-05-14 16:42] LABS: Glucose,Whole Blood 148 mg/dL (75-99)
[2020-05-14] MEDS: guaiFENesin 600 MG TABLET.ER PO SCH ×3 (18:30→19:56)
--- NOTE | 2020-05-14 19:40 | P.PN ---
Progress Note - Text Progress Note Date: 05/14/20 Chief Complaint: Shortness of breath History of presenting complaint: This is a pleasant 70-year-old patient of Dr. Darnell Hodge. Long-standing smoker. down to a few cigarettes a day. Has baseline shortness of breath. presents with worsening short of breath for at least 1 or 2 days. cough. Some white sputum. No fever no chills. Appetite is gone down for one or 2 weeks. Also has lost some weight. Tired rundown. Limited excess tolerance because of the same Hospital course: Admitted with severe COPD exacerbation, acute hypoxic respiratory failure. Started on DuoNeb, IV Solu-Medrol, inhaled steroids and long-acting beta agonist. Today-short of breath. Slight cough. Tired. Oral intake fair. No fever Review of systems: Was done for constitutional, cardiovascular, GI, pulmonary. relevant finding as above Active Medications Albuterol/Ipratropium (Ipratropium-Albuterol 3 Ml Neb) 3 ml INHALATION RT-Q4H [facility] Last Admin: 05/14/20 16:04 Dose: 3 ml Documented by: Budesonide (Budesonide 1 Mg/2 Ml Nebu) 1 mg INHALATION RT-BID [facility] Last Admin: 05/14/20 07:42 Dose: 1 mg Documented by: Doxycycline Monohydrate (Doxycycline 100 Mg Cap) 100 mg PO BID [facility] Last Admin: 05/14/20 08:15 Dose: 100 mg Documented by: Enoxaparin Sodium (Enoxaparin 40 Mg/0.4 Ml Syringe) 40 mg SQ DAILY [facility] Last Admin: 05/14/20 08:15 Dose: 40 mg Documented by: Formoterol Fumarate (Formoterol Fumarate 20 Mcg/2 Ml Nebu) 20 mcg INHALATION RT-BID [facility] Last Admin: 05/14/20 07:42 Dose: 20 mcg Documented by: Guaifenesin (Guaifenesin 600 Mg Tablet.Er) 600 mg PO QID [facility] Last Admin: 05/14/20 18:31 Dose: Not Given Documented by: Insulin Aspart (Insulin Aspart (Novolog) 100 Unit/Ml Vial) 0 unit SQ ACHS [facility]; Protocol Last Admin: 05/14/20 18:30 Dose: Not Given Documented by: Methylprednisolone Sodium Succinate (Methylprednisolone Sod Succi 40 Mg/Ml 1 Ml Vial) 40 mg IV Q6HR [facility] Last Admin: 05/14/20 18:30 Dose: 40 mg Documented by: Psyllium Hydrophilic Mucilloid (Psyllium Husk 100% 6 Gm Packet) 6 gm PO BID [facility] Last Admin: 05/14/20 08:16 Dose: Not Given Documented by: Past medical history to include: Insomnia, GERD, COPD, Social history: . 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 Down to couple of cigarettes a day. No alcohol Physical examination: VITAL SIGNS: 98.6, 101, 18, 101/61, 92% on 2 L GENERAL: BMI 17.5, sitting up, short of breath. EYES: Pupils equal. Conjunctiva normal. HEENT: External appearance of nose and ears normal, oral cavity grossly normal. NECK: JVD not raised; masses not palpable. HEART: First and second heart sounds are normal; no edema. LUNGS: Respiratory rate increased, diminished breath sounds prolonged expiration . ABDOMEN: Soft, nontender, liver spleen not palpable, no masses palpable. PSYCH: [Alert and oriented x3; mood and affect anxious INVESTIGATIONS, reviewed in the clinical context: White count 10.5 hemoglobin 14.5 platelets 316 potassium 3.9 creatinine 0.84 Troponin I less than 0.012 proBNP 133 Coronavirus [PCR]-not detected EKG tracing personally reviewed by me-sinus rhythm, P pulmonale Chest x-ray film-hyperinflated, coarse interstitial markings Chest CT-negative for PE severe emphysema changes and some other changes noted Computed tomography scan of the abdomen-large amount of stool in the cecum. Colonic diverticulosis. Assessment and plan: -Acute severe COPD exacerbation in a current smoker. Continue bronchodilators, IV and inhaled steroids. Pulmonary on the case.-Slow to respond -Acute hypoxic respiratory failure from COPD exacerbation, on oxygen supplementation -Chronic insomnia for medical reasons, use melatonin -Moderate protein calorie malnutrition with a BMI of 17.5. Decreased oral intake. Add ensure. dietitian. -Sigmoid diverticulosis, asymptomatic -Severe obstipation. lactulose. And also had Metamucil. -DVT prophylaxis started on Lovenox. -Chronic nicotine dependence patient cigarette smoker. Nicotine patch Discussed with the patient. Continue current medications.
[2020-05-14 19:53] LABS: Glucose,Whole Blood 178 mg/dL (75-99)
[2020-05-15] MEDS: IPRATROPIUM-ALBUTEROL 3 ML NEB INHALATION SCH ×4 (01:16→10:58)
[2020-05-15 04:28] VITALS: TEMP 97.8
[2020-05-15] MEDS: methylPREDNISolone SOD SUCCI 40 MG/ML 1 ML VIAL IV SCH ×2 (05:08→12:14)
[2020-05-15 07:12] LABS: Glucose,Whole Blood 132 mg/dL (75-99)
[2020-05-15] MEDS: BUDESONIDE 1 MG/2 ML NEBU INHALATION SCH (07:38)
[2020-05-15] MEDS: FORMOTEROL FUMARATE 20 MCG/2 ML NEBU INHALATION SCH (07:38)
[2020-05-15] MEDS ORDERED: PANTOPRAZOLE 40 MG TABLET PO SCH (07:45)
[2020-05-15] MEDS: ENOXAPARIN 40 MG/0.4 ML SYRINGE SQ SCH (08:07)
[2020-05-15] MEDS: PSYLLIUM HUSK 100% 6 GM PACKET PO SCH (08:07)
[2020-05-15] MEDS: DOXYCYCLINE 100 MG CAP PO SCH (08:07)
[2020-05-15] MEDS: guaiFENesin 600 MG TABLET.ER PO SCH ×2 (08:07→12:14)
[2020-05-15] MEDS: INSULIN ASPART (NovoLOG) 100 UNIT/ML VIAL SQ SCH ×2 (08:08→12:14)
[2020-05-15 08:19] VITALS: BP 110/67; RESP 17
[2020-05-15 11:10] VITALS: PULSE 88
[2020-05-15 11:33] LABS: Glucose,Whole Blood 132 mg/dL (75-99)
--- NOTE | 2020-05-15 14:16 | P.PN ---
Subjective Progress Note Date: 05/15/20 Principal diagnosis: Acute exacerbation of chronic obstructive pulmonary disease 70-year-old white male patient with history of emphysema wears oxygen at bedtime on a regular basis, long time smoker, currently down to 4 cigarettes a day. Patient has chronic shortness of breath. He came into the emergency department with complaints of worsening shortness of breath for one or 2 days prior to presentation, increased cough and production of white colored phlegm, denied any fever or chills. He is feeling fatigued, his appetite has been poor, but denied any nausea vomiting or diarrhea. Patient follows with Dr. Sherwood, last time he seen Dr. Sherwood in the office was 1-1-1/2 years ago. He is on Stiolto inhaler on a regular basis, albuterol, and DuoNeb. Denies any sick co ntacts, his chest x-ray in the emergency department showed a moderately hyperinflated lungs with slightly coarse interstitial markings consistent with emphysema no new infiltrates. CTA chest showed severe emphysematous changes in the lungs with small areas of infiltrate or atelectasis in the medial aspect of the right lower and right middle lobe. No CT evidence of pulmonary embolism. EKG showed normal sinus rhythm. CBC within normal limits, anticoagulation profile is within normal limits, electrolytes with the exception of CO2 which is at 33 within normal limits, renal profile is unremarkable. Troponin was less than 0.012, LFTs within normal limits, lipase is 228, COVID [address] of the abdomen and pelvis showed large amount of stool in the cecum suggesting mild constipation, and diverticulosis of the sigmoid colon without signs of acute diverticulitis. Patient was started on steroids, nebulized bronchodilators and doxycycline, he is improving, feeling better today. The patient is seen today 05/15/2020 in follow-up on the regular medical floor. He is currently sitting up in bed. Awake and alert in no acute distress. He is maintaining good O2 saturations in the 90s on 2 L/m per nasal cannula. He is doing quite a bit better today. Nearly back to his baseline. Blood glucose 132. Continued on DuoNeb inhalations, Pulmicort and Perforomist inhalations, IV Solu-Medrol. Empiric antibiotics in the form of doxycycline. Objective - Vital Signs Vital signs: Vital Signs Temp 97.8 F 02/26/21 07:21 Pulse 88 05/15/20 11:10 Resp 17 05/15/20 07:21 BP 110/67 05/15/20 07:21 Pulse Ox 92 L 05/15/20 07:21 Intake & Output 05/14/20 05/15/20 05/15/20 18:59 06:59 18:59 Intake Total 150 360 Balance 150 360 Intake: Oral 150 360 Other: Voiding Method Toilet Toilet # Voids 2 2 - Exam GENERAL EXAM: Alert, very pleasant, 70-year-old male patient, on 2 L of oxygen, comfortable in no apparent distress. HEAD: Normocephalic/atraumatic. EYES: Normal reaction of pupils, equal size. Conjunctiva pink, sclera white. NOSE: Clear with pink turbinates. THROAT: No erythema or exudates. NECK: No masses, no JVD, no thyroid enlargement, no adenopathy. CHEST: No chest wall deformity. Symmetrical expansion. LUNGS: Diminished air entry with end expiratory wheezing on forced exhale maneuver CVS: Regular rate and rhythm, normal S1 and S2, no gallops, no murmurs, no rubs ABDOMEN: Soft, nontender. No hepatosplenomegaly, normal bowel sounds, no guarding or rigidity. EXTREMITIES: No clubbing, no edema, no cyanosis, 2+ pulses and upper and lower extremities. MUSCULOSKELETAL: Muscle strength and tone normal. SPINE: No scoliosis or deformity SKIN: No rashes CENTRAL NERVOUS SYSTEM: Alert and oriented -3. No focal deficits, tone is normal in all 4 extremities. PSYCHIATRIC: Alert and oriented -3. Appropriate affect. Intact judgment and insight. - Labs CBC & Chem 7: 05/13/20 00:05 05/13/20 00:05 Labs: Abnormal Lab Results - Last 24 Hours (Table) 05/14/20 05/14/20 05/15/20 Range/Units 16:40 19:51 07:10 POC Glucose (mg/dL) 148 H 178 H 132 H (75-99) mg/dL 05/15/20 Range/Units 11:31 POC Glucose (mg/dL) 132 H (75-99) mg/dL Assessment and Plan Assessment: 1 Acute exacerbation of chronic obstructive pulmonary disease, no CT evidence of pulmonary embolism, chest x-ray showed no acute pulmonary process. COVID 19 PCR negative 2 Advanced COPD on home oxygen at bedtime on a regular basis 3 Chronic and ongoing history of smoking, used to smoke 2 packs a day for 30 years, currently down to 4 cigarettes daily 4 Abdominal pain, CT of abdomen and pelvis showed mild constipation, diverticulosis without diverticulitis 5 GERD/reflux Plan: The patient was seen and evaluated by Dr. Bravo Cleared for discharge from the pulmonary standpoint Prednisone taper starting at 40 mg for 4 days Continue bronchodilators Follow-up with Dr. Pérez in our office in 1-2 weeks' I, the cosigning physician, performed a history & physical examination of the patient. Lungs sounds with end expiratory wheeze, diminished. Maintaining good O2 saturations in the 90s on 2 L/m per nasal cannula. I discussed the assessment and plan of care with my nurse practitioner, Yulissa Goodson. I attest to the above note as dictated by her.
--- NOTE | 2020-05-15 21:22 | P.DS ---
Providers Date of admission: 05/13/20 02:17 Expected date of discharge: 05/15/20 Attending physician: Ananya Barlow DO Consults: 05/13/20 22:15 Consult Physician Routine Consulting Provider: Luis M Bravo Reason/Comments: COPD Do you want consulting provider notified?: Yes Primary care physician: Darnell Hodge [facility] Hospital Course: Discharge Diagnosis: Acute exacerbation of COPD with chronic hypoxic respiratory failure Chronic tobacco abuse Insomnia Moderate protein calorie malnutrition with cachexia and a BMI of 17.5 Constipation Hospital Course: Patient is a 70-year-old male with a history of COPD with chronic hypoxic respiratory failure on oxygen at night, chronic tobacco abuse currently improving, and GERD who presented with increasing shortness of breath. He was admitted for acute exacerbation of COPD. He was started on bronchodilators, steroids, and antibiotics. Pulmonary was consulted. He continued to make slow improvement throughout his hospital stay. He was determined stable for discharge home. He was very concerned about the air quality at his apartment as the stove and oven do not that outside. We discussed obtaining an air purifier. He was discharged home to complete a course of steroids, Mucinex, and doxycycline. He will follow-up with Dr. Hodge in 2-[address] Sherwood in 10- 14 days. Imaging: Chest [id number] hyperinflation coarse interstitial markings, no acute process CTA chest-severe emphysematous changes, diffuse bronchial wall thickening of the stent with bronchitis CT abdomen and pelvis-large amount of stool in the cecum Patient seen and examined at bedside. He states that his breathing is overall improved. He is nervous about going home because the air quality is not as good as stated in the hospital but he feels fine here. He denies any chest pain. He states his wheezing is almost resolved. He does report one episode of flushing and nausea early today shortly after getting his IV steroids but this has since resolved. Vital signs reviewed and stable. General: non toxic, no distress, appears older than stated age, barrel chested Derm: warm, dry Head: atraumatic, normocephalic, symmetric Eyes: EOMI, no lid lag, anicteric sclera Mouth: no lip lesion, mucus membranes moist Cardiovascular: S1S2 reg, no murmur, positive posterior tibial pulse bilateral, Lungs: Decreased breath sounds bilateral, no rhonchi, no rales , no accessory muscle use Abdominal: soft, nontender to palpation, no guarding, no appreciable organomegaly Ext: no gross muscle atrophy, no edema, no contractures Neuro: CN II-XI grossly intact, no focal neuro deficits Psych: Alert, oriented, appropriate affect A total of 35 minutes of time were spent preparing this complex discharge summary . Patient Condition at Discharge: Good Plan - Discharge Summary Discharge Rx Participant: Yes New Discharge Prescriptions: New predniSONE [Deltasone] 0 mg PO DIRECTED #11 tab guaiFENesin [Mucinex] 600 mg PO BID #60 tablet.er Nystatin 100,000 Unit/ml Susp [Mycostatin Oral Susp] 5 ml PO QID 14 Days #1 bottle Doxycycline [Vibramycin] 100 mg PO BID #8 cap Continue Omeprazole 20 mg PO DAILY Albuterol Inhaler [Ventolin Hfa Inhaler] 2 puff INHALATION RT-QID PRN PRN Reason: Shortness Of Breath Multivitamins, Thera [Multivitamin (formulary)] 1 tab PO DAILY Tiotropium Br/Olodaterol HCl [Stiolto Respimat Inhal [place]] 2 puff INHALATION RT-DAILY Discontinued Ipratropium-Albuterol Nebulize [Duoneb 0.5 mg-3 mg/3 ml Soln] 3 ml INHALATION RT-QID PRN PRN Reason: Shortness Of Breath Discharge Medication List Omeprazole 20 mg PO DAILY 02/23/18 [History] Albuterol Inhaler [Ventolin Hfa Inhaler] 2 puff INHALATION RT-QID PRN 01/22/20 [History] Multivitamins, Thera [Multivitamin (formulary)] 1 tab PO DAILY 01/22/20 [History] Tiotropium Br/Olodaterol HCl [Stiolto Respimat Inhal [place]] 2 puff INHALATION RT-DAILY 05/13/20 [History] Doxycycline [Vibramycin] 100 mg PO BID #8 cap 05/15/20 [Rx] Nystatin 100,000 Unit/ml Susp [Mycostatin Oral Susp] 5 ml PO QID 14 Days #1 bottle 05/15/20 [Rx] guaiFENesin [Mucinex] 600 mg PO BID #60 tablet.er 05/15/20 [Rx] predniSONE [Deltasone] 0 mg PO DIRECTED #11 tab 05/15/20 [Rx] Follow up Appointment(s)/Referral(s): Arina Pérez MD [STAFF PHYSICIAN] - 10 Days Darnell Hodge MD [Primary Care Provider] - 1-2 days Patient Instructions/Handouts: COPD (Chronic Obstructive Pulmonary Disease) (DC), Chronic Bronchitis (DC) Activity/Diet/Wound Care/Special Instructions: Activity: as tolerated Diet: regular Special Instructions: Consider Air purifier Discharge Disposition: HOME SELF-CARE
[2020-05-16] MEDS ORDERED: predniSONE 20 MG TAB PO SCH (09:00)
== END 2020-05-15 14:49 | disposition home or self-care (01) | DRG 190 ==
LOC: EC 23:51 → 4SSUR 05-13 02:17
PROVIDERS: ADMIT Internal Medicine; ATTEND Internal Medicine
DX: J44.1 Chronic obstructive pulmonary disease with (acute) exacerbation (principal); J96.21 Acute and chronic respiratory failure with hypoxia; E44.0 Moderate protein-calorie malnutrition; R64 Cachexia; Z68.1 Body mass index [BMI] 19.9 or less, adult; J98.11 Atelectasis; Z99.81 Dependence on supplemental oxygen; Z20.822 Contact with and (suspected) exposure to COVID-19; K21.9 Gastro-esophageal reflux disease without esophagitis; F17.210 Nicotine dependence, cigarettes, uncomplicated; F51.04 Psychophysiologic insomnia; K57.30 Diverticulosis of large intestine without perforation or abscess without bleeding; K59.00 Constipation, unspecified; Z71.6 Tobacco abuse counseling; Z71.3 Dietary counseling and surveillance; Z79.899 Other long term (current) drug therapy; Z98.890 Other specified postprocedural states; Z80.9 Family history of malignant neoplasm, unspecified
CPT/HCPCS: 36415; 71045; 71275; 74177; 80053; 82550; 83605; 83690; 83735; 83880; 84484; 85025; 85610; 85730; 87635; 93005; 94640; 94760; 96361; 96374; 96375; 99285

== ENCOUNTER 2020-07-16 02:28 | Inpatient (IN) | payer MEDICARE, OTHER ==
[2020-07-16] MEDS ORDERED: ALBUTEROL NEBULIZED 2.5 MG/3 ML INHALATION STA (02:35)
[2020-07-16] MEDS ORDERED: SODIUM CHLORIDE 0.9% 1,000 ML IV STA ×2 (02:35→04:29)
[2020-07-16] MEDS ORDERED: methylPREDNISolone SOD SUCCI 125 MG/2 ML VIAL IV STA (02:35)
[2020-07-16] MEDS ORDERED: IPRATROPIUM 0.5 MG/2.5 ML NEBU INHALATION STA (02:35)
[2020-07-16] MEDS ORDERED: LORazepam 2 MG/ML INJ IV STA (02:35)
--- NOTE | 2020-07-16 02:41 | ED ---
SOB HPI - General Chief Complaint: Shortness of Breath Stated Complaint: PIERCE Time Seen by Provider: 07/16/20 02:35 Source: patient, RN notes reviewed, old records reviewed Mode of arrival: EMS Limitations: no limitations - History of Present Illness Initial Comments: This is a 70-year-old male DF for evaluation patient presents today for evaluation regards to severe shortness of breath unable to provide history secondary severe current shortness of breath brought in by EMS EMS provides history MD Complaint: shortness of breath, anxiety -: hour(s) Severity: severe Severity scale (1-10): 10 Quality: aching, throbbing Consistency: constant Improves With: nothing Worsens With: nothing Known History Of: COPD, asthma Context: recent URI, recent illness Associated Symptoms: fever Treatments Prior to Arrival: none - Related Data Home Medications Medication Instructions Recorded Confirmed Omeprazole 20 mg PO DAILY 02/23/18 07/16/20 Albuterol Inhaler [Ventolin Hfa 2 puff INHALATION RT-QID PRN 01/22/20 07/16/20 Inhaler] Multivitamins, Thera [Multivitamin 1 tab PO DAILY 01/22/20 07/16/20 (formulary)] Tiotropium Br/Olodaterol HCl 2 puff INHALATION RT-DAILY 05/13/20 07/16/20 [Stiolto Respimat Inhal [place]] Ipratropium-Albuterol Nebulize 3 ml INHALATION RT-QID PRN 07/16/20 07/16/20 [Duoneb 0.5 mg-3 mg/3 ml Soln] Allergies Allergy/AdvReac Type Severity Reaction Status Date / Time No Known Allergies Allergy Verified 07/16/20 06:23 Review of Systems ROS Statement: Those systems with pertinent positive or pertinent negative responses have been documented in the HPI. ROS Other: All systems not noted in ROS Statement are negative. Past Medical History Past Medical History: COPD, GERD/Reflux Additional Past Medical History / Comment(s): Current upper abdominal pain, affecting appetite. History of Any Multi-Drug Resistant Organisms: None Reported Past Surgical History: Orthopedic Surgery, Tonsillectomy Additional Past Surgical History / Comment(s): Right shoulder arthroscopy. Colonoscopy. Past Anesthesia/Blood Transfusion Reactions: No Reported Reaction Past Psychological History: No Psychological Hx Reported Smoking Status: Current every day smoker Past Alcohol Use History: None Reported Past Drug Use History: None Reported - Past Family History Father Family Medical History: Cancer Mother Family Medical History: Cancer Additional Family Medical History / Comment(s): Mother in her 50s with some form of cancer. Pt/spouse do not recall type of cancer. General Exam Limitations: no limitations General appearance: alert, anxious, in distress, cachectic Head exam: Present: atraumatic, normocephalic, normal inspection Eye exam: Present: normal appearance, PERRL, EOMI. Absent: scleral icterus, conjunctival injection, periorbital swelling ENT exam: Present: normal exam, mucous membranes moist Neck exam: Present: normal inspection. Absent: tenderness, meningismus, lymphadenopathy Respiratory exam: Present: normal lung sounds bilaterally. Absent: respiratory distress, wheezes, rales, rhonchi, stridor Cardiovascular Exam: Present: normal rhythm, tachycardia, normal heart sounds. Absent: systolic murmur, diastolic murmur, rubs, gallop, clicks GI/Abdominal exam: Present: soft, normal bowel sounds. Absent: distended, tenderness, guarding, rebound, rigid Extremities exam: Present: normal inspection, full ROM, normal capillary refill. Absent: tenderness, pedal edema, joint swelling, calf tenderness Back exam: Present: normal inspection Neurological exam: Present: alert, oriented X3, CN II-XII intact Psychiatric exam: Present: normal affect, normal mood Skin exam: Present: warm, dry, intact, normal color. Absent: rash Course Vital Signs 07/16/20 07/16/20 07/16/20 02:31 05:02 06:16 Temperature 98.7 F Pulse Rate 113 H 72 67 Respiratory 28 H 20 18 Rate Blood Pressure 115/64 104/66 120/67 Blood Pressure [Left Arm] O2 Sat by Pulse 84 L 97 98 Oximetry 07/16/20 07/16/20 07/16/20 07:25 07:36 08:00 Temperature Pulse Rate 96 96 73 Respiratory 18 Rate Blood Pressure 110/69 Blood Pressure [Left Arm] O2 Sat by Pulse 98 Oximetry 07/16/20 07/16/20 07/16/20 09:00 10:00 10:22 Temperature 98.3 F Pulse Rate 80 83 98 Respiratory 18 Rate Blood Pressure 109/69 Blood Pressure [Left Arm] O2 Sat by Pulse 98 96 92 L Oximetry 07/16/20 07/16/2007/16/21 10:35 11:00 13:00 Temperature Pulse Rate 95 77 74 Respiratory 18 18 Rate Blood Pressure 100/68 100/68 Blood Pressure [Left Arm] O2 Sat by Pulse 97 97 Oximetry 07/16/20 07/16/20 07/16/20 14:00 15:00 15:49 Temperature Pulse Rate 77 94 90 Respiratory 18 18 Rate Blood Pressure 106/60 Blood Pressure [Left Arm] O2 Sat by Pulse 97 Oximetry 07/16/20 07/16/20 07/16/20 16:00 16:05 17:00 Temperature Pulse Rate 69 94 75 Respiratory 18 18 Rate Blood Pressure 99/57 Blood Pressure [Left Arm] O2 Sat by Pulse 97 Oximetry 07/16/20 07/16/20 07/16/20 18:00 19:26 19:36 Temperature 98.4 F Pulse Rate 63 90 92 Respiratory 18 Rate Blood Pressure 98/61 Blood Pressure [Left Arm] O2 Sat by Pulse 98 Oximetry 07/16/20 07/16/20 07/16/20 19:37 19:51 20:00 Temperature Pulse Rate 94 88 78 Respiratory 18 Rate Blood Pressure 103/68 Blood Pressure [Left Arm] O2 Sat by Pulse 96 Oximetry 07/16/20 07/16/20 07/16/20 20:41 21:00 21:30 Temperature 97.9 F Pulse Rate 86 78 Respiratory 18 17 16 Rate Blood Pressure 88/53 94/58 Blood Pressure 96/62 [Left Arm] O2 Sat by Pulse 96 98 97 Oximetry - Reevaluation(s) Reevaluation #1: medical record is reviewed Patient is placed on BiPAP upon arrival patient has improved symptoms here in the ER patient informed of results and questions answered Medical Decision Making - Medical Decision Making 70 male with known history of COPD coming in with hypoxia COPD rest for a failure placed on BiPAP. Patient improving on BiPAP and breathing treatments - Lab Data Result diagrams: 07/16/20 02:50 07/16/20 10:36 Lab Results 07/16/20 07/16/20 07/16/20 Range/Units 02:50 02:50 02:50 WBC 7.5 (3.8-10.6) k/uL RBC 4.61 (4.30-5.90) m/uL Hgb 13.6 (13.0-17.5) gm/dL Hct 43.7 (39.0-53.0) % MCV 94.7 (80.0-100.0) fL MCH 29.6 (25.0-35.0) pg MCHC 31.2 (31.0-37.0) g/dL RDW 13.0 (11.5-15.5) % Plt Count 283 (150-450) k/uL MPV 6.7 Neutrophils % 49 % Lymphocytes % 32 % Monocytes % 7 % Eosinophils % 9 % Basophils % 1 % Neutrophils # 3.7 (1.3-7.7) k/uL Lymphocytes # 2.4 (1.0-4.8) k/uL Monocytes # 0.5 (0-1.0) k/uL Eosinophils # 0.7 (0-0.7) k/uL Basophils # 0.1 (0-0.2) k/uL PT 9.4 (9.0-12.0) sec INR 0.9 (<1.2) APTT 22.9 (22.0-30.0) sec Sodium 143 (137-145) mmol/L Potassium 5.5 H (3.5-5.1) mmol/L Chloride 107 (98-107) mmol/L Carbon Dioxide 31 H (22-30) mmol/L Anion Gap 5 mmol/L BUN 11 (9-20) mg/dL Creatinine 0.90 (0.66-1.25) mg/dL Est GFR (CKD-EPI)AfAm >90 (>60 ml/min/1.73 sqM) Est GFR (CKD-EPI)NonAf 86 (>60 ml/min/1.73 sqM) Glucose 114 H (74-99) mg/dL Plasma Lactic Acid Luciano (0.7-2.0) mmol/L Calcium 9.7 (8.4-10.2) mg/dL Magnesium 1.9 (1.6-2.3) mg/dL Total Bilirubin 0.5 (0.2-1.3) mg/dL AST 30 (17-59) U/L ALT 14 (4-49) U/L Alkaline Phosphatase 70 (38-126) U/L Lactate Dehydrogenase 444 (313-618) U/L Creatine Kinase 68 (55-170) U/L Troponin I (0.000-0.034) ng/mL C-Reactive Protein 0.8 (<1.0) mg/dL NT-Pro-B Natriuret Pep pg/mL Total Protein 6.3 (6.3-8.2) g/dL Albumin 3.9 (3.5-5.0) g/dL Procalcitonin (0.02-0.09) ng/mL Influenza Type A (PCR) (Not Detectd) Influenza Type B (PCR) (Not Detectd) RSV (PCR) (Not Detectd) SARS-CoV-2 (PCR) (Not Detectd) 07/16/20 07/16/20 07/16/20 Range/Units 02:50 02:50 02:50 WBC (3.8-10.6) k/uL RBC (4.30-5.90) m/uL Hgb (13.0-17.5) gm/dL Hct (39.0-53.0) % MCV (80.0-100.0) fL MCH (25.0-35.0) pg MCHC (31.0-37.0) g/dL RDW (11.5-15.5) % Plt Count (150-450) k/uL MPV Neutrophils % % Lymphocytes % % Monocytes % % Eosinophils % % Basophils % % Neutrophils # (1.3-7.7) k/uL Lymphocytes # (1.0-4.8) k/uL Monocytes # (0-1.0) k/uL Eosinophils # (0-0.7) k/uL Basophils # (0-0.2) k/uL PT (9.0-12.0) sec INR (<1.2) APTT (22.0-30.0) sec Sodium (137-145) mmol/L Potassium (3.5-5.1) mmol/L Chloride (98-107) mmol/L Carbon Dioxide (22-30) mmol/L Anion Gap mmol/L BUN (9-20) mg/dL Creatinine (0.66-1.25) mg/dL Est GFR (CKD-EPI)AfAm (>60 ml/min/1.73 sqM) Est GFR (CKD-EPI)NonAf (>60 ml/min/1.73 sqM) Glucose (74-99) mg/dL Plasma Lactic Acid Luciano 1.4 (0.7-2.0) mmol/L Calcium (8.4-10.2) mg/dL Magnesium (1.6-2.3) mg/dL Total Bilirubin (0.2-1.3) mg/dL AST (17-59) U/L ALT (4-49) U/L Alkaline Phosphatase (38-126) U/L Lactate Dehydrogenase (313-618) U/L Creatine Kinase (55-170) U/L Troponin I <0.012 (0.000-0.034) ng/mL C-Reactive Protein (<1.0) mg/dL NT-Pro-B Natriuret Pep 151 pg/mL Total Protein (6.3-8.2) g/dL Albumin (3.5-5.0) g/dL Procalcitonin (0.02-0.09) ng/mL Influenza Type A (PCR) (Not Detectd) Influenza Type B (PCR) (Not Detectd) RSV (PCR) (Not Detectd) SARS-CoV-2 (PCR) (Not Detectd) 07/16/20 07/16/20 Range/Units 02:50 02:56 WBC (3.8-10.6) k/uL RBC (4.30-5.90) m/uL Hgb (13.0-17.5) gm/dL Hct (39.0-53.0) % MCV (80.0-100.0) fL MCH (25.0-35.0) pg MCHC (31.0-37.0) g/dL RDW (11.5-15.5) % Plt Count (150-450) k/uL MPV Neutrophils % % Lymphocytes % % Monocytes % % Eosinophils % % Basophils % % Neutrophils # (1.3-7.7) k/uL Lymphocytes # (1.0-4.8) k/uL Monocytes # (0-1.0) k/uL Eosinophils # (0-0.7) k/uL Basophils # (0-0.2) k/uL PT (9.0-12.0) sec INR (<1.2) APTT (22.0-30.0) sec Sodium (137-145) mmol/L Potassium (3.5-5.1) mmol/L Chloride (98-107) mmol/L Carbon Dioxide (22-30) mmol/L Anion Gap mmol/L BUN (9-20) mg/dL Creatinine (0.66-1.25) mg/dL Est GFR (CKD-EPI)AfAm (>60 ml/min/1.73 sqM) Est GFR (CKD-EPI)NonAf (>60 ml/min/1.73 sqM) Glucose (74-99) mg/dL Plasma Lactic Acid Luciano (0.7-2.0) mmol/L Calcium (8.4-10.2) mg/dL Magnesium (1.6-2.3) mg/dL Total Bilirubin (0.2-1.3) mg/dL AST (17-59) U/L ALT (4-49) U/L Alkaline Phosphatase (38-126) U/L Lactate Dehydrogenase (313-618) U/L Creatine Kinase (55-170) U/L Troponin I (0.000-0.034) ng/mL C-Reactive Protein (<1.0) mg/dL NT-Pro-B Natriuret Pep pg/mL Total Protein (6.3-8.2) g/dL Albumin (3.5-5.0) g/dL Procalcitonin 0.08 (0.02-0.09) ng/mL Influenza Type A (PCR) Not Detected (Not Detectd) Influenza Type B (PCR) Not Detected (Not Detectd) RSV (PCR) Not Detected (Not Detectd) SARS-CoV-2 (PCR) Not Detected (Not Detectd) - EKG Data -: EKG Interpreted by Me (EKG shows sinus rhythm 98 MN 126 QRS 70 QTC 418) - Radiology Data Radiology results: report reviewed (Chest x-rays negative for acute disease), image reviewed Critical Care Time Critical Care Time: Yes Total Critical Care Time: 31 Disposition Clinical Impression: COPD exacerbation, Hypoxia, Acute exacerbation of chronic bronchitis, Acute respiratory failure Disposition: ADMITTED IP TO THIS HOSP Condition: Serious Is patient prescribed a controlled substance at d/c from ED?: No
[2020-07-16 03:07] LABS: Basophils # (A) 0.1 k/uL (0-0.2); Basophils % (A) 1 %; Eosinophils # (A) 0.7 k/uL (0-0.7); Eosinophils % (A) 9 %; HCT 43.7 % (39.0-53.0); HGB 13.6 gm/dL (13.0-17.5); Lymphocytes # (A) 2.4 k/uL (1.0-4.8); Lymphocytes % (A) 32 %; MCH 29.6 pg (25.0-35.0); MCHC 31.2 g/dL (31.0-37.0); MCV 94.7 fL (80.0-100.0); Mean Platelet Volume 6.7; Monocytes # (A) 0.5 k/uL (0-1.0); Monocytes % (A) 7 %; Neutrophils # (A) 3.7 k/uL (1.3-7.7); Neutrophils % (A) 49 %; Platelet Count 283 k/uL (150-450); RBC 4.61 m/uL (4.30-5.90); WBC 7.5 k/uL (3.8-10.6)
[2020-07-16 03:11] LABS: INR 0.9 (<1.2); Partial Thromboplastin Time 22.9 sec (22.0-30.0); Prothrombin Time 9.4 sec (9.0-12.0)
[2020-07-16 03:17] LABS: ALT 14 U/L (4-49); AST 30 U/L (17-59); African American GFR (CKD) >90 (>60 ml/min/1.73 sqM); Albumin 3.9 g/dL (3.5-5.0); Alkaline Phosphatase 70 U/L (38-126); Anion Gap 5 mmol/L; Blood Urea Nitrogen 11 mg/dL (9-20); C Reactive Protein 0.8 mg/dL (<1.0); Calcium 9.7 mg/dL (8.4-10.2); Carbon Dioxide 31 mmol/L (22-30); Chloride 107 mmol/L (98-107); Glucose 114 mg/dL (74-99); LDH 444 U/L (313-618); Magnesium 1.9 mg/dL (1.6-2.3); Non-African American GFR(CKD) 86 (>60 ml/min/1.73 sqM); Potassium 5.5 mmol/L (3.5-5.1); Sodium 143 mmol/L (137-145); Total Bilirubin 0.5 mg/dL (0.2-1.3); Total Protein 6.3 g/dL (6.3-8.2)
--- NOTE | 2020-07-16 03:27 | XR ---
EXAM: XR Chest, 1 View CLINICAL HISTORY: ITS.REASON XR Reason: Suspected COVID-19 pneumonia TECHNIQUE: Frontal view of the chest. COMPARISON: 05/13/20. FINDINGS: Lungs: Patchy lung opacities. Pleural space: No significant pleural effusion or pneumothorax. Heart: Stable cardiomediastinal silhouette. Mediastinum: See above. Bones/joints: No acute fracture. IMPRESSION: Possible chronic lung changes with mild superimposed acute process not excluded in the appropriate clinical setting.
[2020-07-16 04:26] LABS: Creatine Kinase 68 U/L (55-170)
[2020-07-16] MEDS ORDERED: SODIUM CHLORIDE 0.9% 500 ML 500 ML IV STA (04:29)
[2020-07-16] MEDS: SODIUM CHLORIDE 0.9% 1,000 ML IV SCH ×3 (05:05→20:33)
[2020-07-16] MEDS: IPRATROPIUM-ALBUTEROL 3 ML NEB INHALATION SCH ×4 (07:25→19:25)
[2020-07-16] MEDS: ENOXAPARIN 40 MG/0.4 ML SYRINGE SQ SCH (09:11)
[2020-07-16] MEDS: methylPREDNISolone SOD SUCCI 125 MG/2 ML VIAL IV SCH ×4 (09:11→23:15)
[2020-07-16] MEDS ORDERED: ALBUTEROL HFA INHALER INHALATION PRN (10:21)
--- NOTE | 2020-07-16 11:00 | P.CNPUL ---
History of Present Illness Consult date: 07/16/20 Requesting physician: Rob Walsh Reason for consult: dyspnea, COPD Chief complaint: Shortness of breath, cough, congestion History of present illness: This is a pleasant 70-year-old gentleman with a known history of chronic and ongoing tobacco dependence of greater than 30 years. He has been seen by Dr. Pérez in our office in the past. He's been maintained on Stiolto, albuterol and DuoNeb inhalations. He presented to the emergency room early this morning with complaints of increasing shortness of breath cough and congestion. Chest x-ray revealed evidence of chronic lung disease but no acute pulmonary process. White count 7.5. Hemoglobin 13.6. Sodium 143. Potassium 5.5. Creatinine 0.90. Glucose 114. LDH 444. C-reactive protein 0.8. Troponin 0.012. Influenza screen negative. Coronavirus screen negative. He was given 2 L of fluid resuscitation with a 0.9 normal saline at 130 ML's per hour. He was placed on BiPAP 10/5 and 35% FiO2. He was given IV Solu-Medrol and bronchodilators. He is seen today in consultation in the emergency department. He's currently resting fairly comfortably on a stretcher. Remains on the BiPAP. O2 saturation 98%. Asking to be converted back to nasal cannula. Review of Systems REVIEW OF SYSTEMS: CONSTITUTIONAL: Denies any recent significant weight loss or weight gain. EYES: Denies change in vision. EARS, NOSE, MOUTH, THROAT: Denies headaches, denies sore throat. CARDIOVASCULAR: Denies chest pain, palpitations or syncopal episodes. RESPIRATORY: Positive for shortness of breath, cough, congestion no hemoptysis. GASTROINTESTINAL: Denies change in appetite, denies abdominal pain GENITOURINARY: Denies hematuria, denies infections. MUSKULOSKELETAL: Denies pain, denies swelling. INTEGUMENTARY: Denies rash, denies eczema. NEUROLOGICAL: Denies recent memory loss, no recent seizure activity. PSYCHIATRIC: Denies anxiety, denies depression. HEMATOLOGIC/LYMPHATIC: Denies anemia, denies enlarged lymph nodes. Past Medical History Past Medical History: COPD, GERD/Reflux Additional Past Medical History / Comment(s): Current upper abdominal pain, affecting appetite. History of Any Multi-Drug Resistant Organisms: None Reported Past Surgical History: Orthopedic Surgery, Tonsillectomy Additional Past Surgical History / Comment(s): Right shoulder arthroscopy. Colonoscopy. Past Anesthesia/Blood Transfusion Reactions: No Reported Reaction Past Psychological History: No Psychological Hx Reported Smoking Status: Current every day smoker Past Alcohol Use History: None Reported Past Drug Use History: None Reported - Past Family History Father Family Medical History: Cancer Medications and Allergies Home Medications Medication Instructions Recorded Confirmed Type Omeprazole 20 mg PO DAILY 02/23/18 07/16/20 History Albuterol Inhaler [Ventolin Hfa 2 puff INHALATION RT-QID PRN 01/22/20 07/16/20 History Inhaler] Multivitamins, Thera [Multivitamin 1 tab PO DAILY 01/22/20 07/16/20 History (formulary)] Tiotropium Br/Olodaterol HCl 2 puff INHALATION RT-DAILY 05/13/20 07/16/20 History [Stiolto Respimat Inhal [place]] Ipratropium-Albuterol Nebulize 3 ml INHALATION RT-QID PRN 07/16/20 07/16/20 History [Duoneb 0.5 mg-3 mg/3 ml Soln] Allergies Allergy/AdvReac Type Severity Reaction Status Date / Time No Known Allergies Allergy Verified 07/16/20 06:23 Physical Exam Vitals: Vital Signs Temp Pulse Resp BP Pulse Ox 07/16/20 10:22 98 92 L 07/16/20 09:00 98.3 F 80 18 109/69 98 07/16/20 08:00 73 18 110/69 98 07/16/20 07:36 96 07/16/20 07:25 96 07/16/20 06:16 67 18 120/67 98 07/16/20 05:02 72 20 104/66 97 07/16/20 02:31 98.7 F 113 H 28 H 115/64 84 L Intake and Output 07/15/20 07/16/20 07/16/20 22:59 06:59 14:59 Other: Weight 45.359 kg GENERAL EXAM: Alert, pleasant 70-year-old gentleman, on BiPAP 10/5 and 35% FiO2, fairly comfortable in no apparent distress. HEAD: Normocephalic. EYES: Normal reaction of pupils, equal size. NOSE: Clear with pink turbinates. THROAT: No erythema or exudates. NECK: No masses, no JVD. CHEST: No chest wall deformity. LUNGS: Equal air entry with bilateral end expiratory wheeze, diminished. CVS: S1 and S2 normal with no audible murmur, regular rhythm. ABDOMEN: No hepatosplenomegaly, normal bowel sounds, no guarding or rigidity. SPINE: No scoliosis or deformity SKIN: No rashes CENTRAL NERVOUS SYSTEM: No focal deficits, tone is normal in all 4 extremities. EXTREMITIES: There is no peripheral edema. No clubbing, no cyanosis. Peripheral pulses are intact. Results - Laboratory Findings CBC and BMP: 07/16/20 02:50 07/16/20 02:50 PT/INR, D-dimer PT 9.4 sec (9.0-12.0) 07/16/20 02:50 INR 0.9 (<1.2) 07/16/20 02:50 Abnormal lab findings: Abnormal Labs 07/16/20 02:50 Potassium 5.5 H Carbon Dioxide 31 H Glucose 114 H - Diagnostic Findings Chest x-ray: image reviewed Assessment and Plan Assessment: 1 Acute on chronic hypoxemic respiratory failure secondary to an acute exacerbation of chronic obstructive pulmonary disease 2 Chronic and ongoing tobacco dependence 3 Oxygen dependent chronic obstructive pulmonary disease 4 Gastroesophageal reflux disease Plan: The patient was seen and evaluated by Dr. Bravo Chest x-ray and labs reviewed Continue DuoNeb inhalations, Pulmicort and Perforomist inhalations Continue IV Solu-Medrol Discomfort from BiPAP to 3 L nasal cannula as tolerated We will continue to follow and make further recommendations based on his clinical status I, the cosigning physician, performed a history & physical examination of the patient. Lungs sounds with bilateral end expiratory wheeze, diminished. Maintaining good O2 saturations in the 90s on BiPAP 10/5 and 35% FiO2. I discussed the assessment and plan of care with my nurse practitioner, Yulissa Goodson. I attest to the above consultation as dictated by her. Time with Patient: Greater than 30
[2020-07-16 11:17] LABS: African American GFR (CKD) >90 (>60 ml/min/1.73 sqM); Anion Gap 6 mmol/L; Blood Urea Nitrogen 11 mg/dL (9-20); Calcium 8.9 mg/dL (8.4-10.2); Carbon Dioxide 27 mmol/L (22-30); Chloride 108 mmol/L (98-107); Glucose 176 mg/dL (74-99); Non-African American GFR(CKD) >90 (>60 ml/min/1.73 sqM); Potassium 5.1 mmol/L (3.5-5.1); Sodium 141 mmol/L (137-145)
[2020-07-16] MEDS: MULTIVITAMINS, THERA 1 EACH TAB PO SCH (11:34)
[2020-07-16] MEDS: PANTOPRAZOLE 40 MG TABLET PO SCH (11:35)
[2020-07-16] MEDS: IPRATROPIUM 0.5 MG/2.5 ML NEBU INHALATION SCH ×3 (12:05→19:25)
[2020-07-16] MEDS: NICOTINE 7MG/24HR PATCH TRANSDERM SCH (16:35)
[2020-07-16] MEDS: FORMOTEROL FUMARATE 20 MCG/2 ML NEBU INHALATION SCH (19:25)
[2020-07-16] MEDS: BUDESONIDE 1 MG/2 ML NEBU INHALATION SCH (19:25)
--- NOTE | 2020-07-16 21:25 | P.HPIM ---
History of Present Illness H&P Date: 07/16/20 Chief Complaint: Shortness of breath History of presenting complaint: This is a pleasant 70-year-old patient of Dr. Rocha. Long-standing smoker. No down to 5-7 a day. baseline shortness of breath. Patient now presents with worsening short of breath wheezing. Some clear sputum. Decreased appetite. Tired rundown. Patient's at the bedside. Patient does follow with animator Dr. Pérez. Getting oxygen supplementation. Review of systems: GEN.: Tired, decreased appetite EYES: None HEENT: None NECK: None RESPIRATORY: As above CARDIOVASCULAR: None GASTROINTESTINAL: None GENITOURINARY: None MUSCULOSKELETAL: None LYMPHATICS: None HEMATOLOGICAL: None PSYCHIATRY: Some anxiety NEUROLOGICAL: None Past medical history to include: Insomnia, GERD, COPD, Social history: . 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 Smoking a few cigarettes a day. No alcohol Physical examination: VITAL SIGNS: 98.7, 113, 28, 115/64, 84% on room air GENERAL: BMI 16.6, reclining in bed, tired, short of breath EYES: Pupils equal. Conjunctiva normal. HEENT: External appearance of nose and ears normal, oral cavity grossly normal. NECK: JVD not raised; masses not palpable. HEART: First and second heart sounds are normal; no edema. LUNGS: Respiratory rate increased, diminished breath sounds prolonged expiration , accessory muscles are working, not able to speak in full sentences. ABDOMEN: Soft, nontender, liver spleen not palpable, no masses palpable. PSYCH: Alert and oriented x3; mood and affect anxious MUSCULAR skeletal: Evidence of OA NEUROLOGICAL: Cranial nerves grossly intact; no facial asymmetry, power and se nsation grossly intact. LYMPHATICS: No lymph nodes palpable in the axilla and neck INVESTIGATIONS, reviewed in the clinical context: WBC 7.5 hemoglobin 13.6 platelets 23 potassium 5.5, repeat 5.1 creatinine 0.9 Troponin I less than 0.012, proBNP 151 Influenza type A, type B, RSV, overnight 19 PCR: Not detected EKG tracing personally reviewed by me-sinus rhythm, P pulmonale Chest x-ray film personally reviewed by me-hyperinflated. Infiltrate acute versus chronic Assessment and plan: -Acute severe COPD exacerbation in a current smoker. Patient started on bronchodilators, IV and inhaled steroids. Consult pulmonary -Acute hypoxic respiratory failure from COPD exacerbation, placed on oxygen supplementation -Chronic insomnia for medical reasons, use melatonin -Severe protein calorie malnutrition with a BMI of 16.6. Add nutritional supplement. Consult dietitian -Sigmoid diverticulosis, asymptomatic Follow clinically -DVT prophylaxis started on Lovenox. -Chronic nicotine dependence patient cigarette smoker. Smoke cessation counseling: This was done with the patient. Nicotine patch is being given. More than 3 minutes was spent for this Given the severity of patient's condition expect patient to be in the hospital for more than 2 nights Past Medical History Past Medical History: COPD, GERD/Reflux Additional Past Medical History / Comment(s): Current upper abdominal pain, affecting appetite. History of Any Multi-Drug Resistant Organisms: None Reported Past Surgical History: Orthopedic Surgery, Tonsillectomy Additional Past Surgical History / Comment(s): Right shoulder arthroscopy. Colonoscopy. Past Anesthesia/Blood Transfusion Reactions: No Reported Reaction Past Psychological History: No Psychological Hx Reported Smoking Status: Current every day smoker Past Alcohol Use History: None Reported Past Drug Use History: None Reported - Past Family History Father Family Medical History: Cancer Mother Family Medical History: Cancer Additional Family Medical History / Comment(s): Mother in her 50s with some form of cancer. Pt/spouse do not recall type of cancer. Medications and Allergies Home Medications Medication Instructions Recorded Confirmed Type Omeprazole 20 mg PO DAILY 02/23/18 07/16/20 History Albuterol Inhaler [Ventolin Hfa 2 puff INHALATION RT-QID PRN 01/22/20 07/16/20 History Inhaler] Multivitamins, Thera [Multivitamin 1 tab PO DAILY 01/22/20 07/16/20 History (formulary)] Tiotropium Br/Olodaterol HCl 2 puff INHALATION RT-DAILY 05/13/20 07/16/20 History [Stiolto Respimat Inhal [place]] Ipratropium-Albuterol Nebulize 3 ml INHALATION RT-QID PRN 07/16/20 07/16/20 History [Duoneb 0.5 mg-3 mg/3 ml Soln] Allergies Allergy/AdvReac Type Severity Reaction Status Date / Time No Known Allergies Allergy Verified 07/16/20 06:23 Physical Exam Vitals: Vital Signs Temp Pulse Resp BP Pulse Ox 07/16/20 09:00 98.3 F 80 18 109/69 98 07/16/20 08:00 73 18 110/69 98 07/16/20 06:16 67 18 120/67 98 07/16/20 05:02 72 20 104/66 97 07/16/20 02:31 98.7 F 113 H 28 H 115/64 84 L Intake and Output 07/15/20 07/16/20 07/16/20 22:59 06:59 14:59 Other: Weight 45.359 kg Results CBC & Chem 7: 07/16/20 02:50 07/16/20 10:36 Labs: Abnormal Lab Results - Last 24 Hours (Table) 07/16/20 Range/Units 02:50 Potassium 5.5 H (3.5-5.1) mmol/L Carbon Dioxide 31 H (22-30) mmol/L Glucose 114 H (74-99) mg/dL
[2020-07-17] MEDS: methylPREDNISolone SOD SUCCI 125 MG/2 ML VIAL IV SCH ×3 (05:29→20:17)
[2020-07-17] MEDS: SODIUM CHLORIDE 0.9% 1,000 ML IV SCH (05:29)
[2020-07-17] MEDS: IPRATROPIUM-ALBUTEROL 3 ML NEB INHALATION SCH ×4 (07:34→19:29)
[2020-07-17] MEDS: FORMOTEROL FUMARATE 20 MCG/2 ML NEBU INHALATION SCH ×2 (07:34→19:29)
[2020-07-17] MEDS: BUDESONIDE 1 MG/2 ML NEBU INHALATION SCH ×2 (07:34→19:29)
[2020-07-17] MEDS: IPRATROPIUM 0.5 MG/2.5 ML NEBU INHALATION SCH (07:43)
[2020-07-17] MEDS: MULTIVITAMINS, THERA 1 EACH TAB PO SCH (08:01)
[2020-07-17] MEDS: PANTOPRAZOLE 40 MG TABLET PO SCH (08:01)
[2020-07-17] MEDS: ENOXAPARIN 40 MG/0.4 ML SYRINGE SQ SCH (08:02)
[2020-07-17] MEDS: NICOTINE 7MG/24HR PATCH TRANSDERM SCH (08:02)
--- NOTE | 2020-07-17 10:04 | P.PN ---
Subjective Progress Note Date: 07/17/20 Principal diagnosis: COPD exacerbation This is a pleasant 70-year-old gentleman with a known history of chronic and ongoing tobacco dependence of greater than 30 years. He has been seen by Dr. Pérez in our office in the past. He's been maintained on Stiolto, albuterol and DuoNeb inhalations. He presented to the emergency room early this morning with complaints of increasing shortness of breath cough and congestion. Chest x-ray revealed evidence of chronic lung disease but no acute pulmonary process. White count 7.5. Hemoglobin 13.6. Sodium 143. Potassium 5.5. Creatinine 0.90. Glucose 114. LDH 444. C-reactive protein 0.8. Troponin 0.012. Influenza screen negative. Coronavirus screen negative. He was given 2 L of fluid resuscitation with a 0.9 normal saline at 130 ML's per hour. He was placed on BiPAP 10/5 and 35% FiO2. He was given IV Solu-Medrol and bronchodilators. He is seen today in consultation in the emergency department. He's currently resting fairly comfortably on a stretcher. Remains on the BiPAP. O2 saturation 98%. Asking to be converted back to nasal cannula. The patient is seen today 07/17/2020 follow-up in the observation unit. He is currently resting comfortably in bed. Awake and alert in no acute distress. Currently on 4 L/m per nasal cannula maintaining O2 saturations in the 90s. 0.9% normal saline at 50 MLS per hour. Maintained on DuoNeb inhalations, Pulmicort and Perforomist inhalations, IV Medrol. NicoDerm patch in place. Still dyspneic with minimal conversation, minimal exertion. Objective - Vital Signs Vital signs: Vital Signs Temp 97.9 F 07/17/20 08:00 Pulse 100 07/17/20 08:00 Resp 16 07/17/20 07:34 BP 110/54 07/17/20 08:00 Pulse Ox 92 L 07/17/20 08:00 Intake & Output 07/16/20 07/17/20 07/17/20 18:59 06:59 18:59 Intake Total 500 Output Total 250 Balance 250 Weight 45.359 kg 39 kg Intake: Intake, IV Titration 500 Amount Sodium Chloride 0.9% 1, 500 000 ml @ 50 mls/hr IV . Q20H YOLANDA Rx#:[id number] Output: Urine 250 - Exam GENERAL EXAM: Alert, pleasant 70-year-old gentleman, on 4 liters per minute per nasal cannula, fairly comfortable in no apparent distress. HEAD: Normocephalic. EYES: Normal reaction of pupils, equal size. NOSE: Clear with pink turbinates. THROAT: No erythema or exudates. NECK: No masses, no JVD. CHEST: No chest wall deformity. LUNGS: Equal air entry with bilateral end expiratory wheeze, diminished. CVS: S1 and S2 normal with no audible murmur, regular rhythm. ABDOMEN: No hepatosplenomegaly, normal bowel sounds, no guarding or rigidity. SPINE: No scoliosis or deformity SKIN: No rashes CENTRAL NERVOUS SYSTEM: No focal deficits, tone is normal in all 4 extremities. EXTREMITIES: There is no peripheral edema. No clubbing, no cyanosis. Peripheral pulses are intact. - Labs CBC & Chem 7: 07/16/20 02:50 07/16/20 10:36 Labs: Abnormal Lab Results - Last 24 Hours (Table) 07/16/20 Range/Units 10:36 Chloride 108 H (98-107) mmol/L Glucose 176 H (74-99) mg/dL Assessment and Plan Assessment: 1 Acute on chronic hypoxemic respiratory failure secondary to an acute exacerbation of chronic obstructive pulmonary disease 2 Chronic and ongoing tobacco dependence 3 Oxygen dependent chronic obstructive pulmonary disease 4 Gastroesophageal reflux disease Plan: The patient was seen and evaluated by Dr. Bravo Continue DuoNeb inhalations, Pulmicort and Perforomist inhalations Continue IV Solu-Medrol Titrate his FiO2 as tolerated Probable discharge in the a.m. We will continue to follow I, the cosigning physician, performed a history & physical examination of the patient. Lungs sounds with bilateral end expiratory wheeze, diminished. Maintaining good O2 saturations in the 90s on 4 L/m per nasal cannula. I discussed the assessment and plan of care with my nurse practitioner, Yulissa Goodson. I attest to the above note as dictated by her.
[2020-07-17 13:18] VITALS: BMI 15.9
--- NOTE | 2020-07-17 16:43 | P.PN ---
Progress Note - Text Progress Note Date: 07/17/20 Chief Complaint: Shortness of breath History of presenting complaint: This is a pleasant 70-year-old patient of Dr. Rocha. Long-standing smoker. No down to 5-7 a day. baseline shortness of breath. Patient now presents with worsening short of breath wheezing. Some clear sputum. Decreased appetite. Tired rundown. Patient's at the bedside. Patient does follow with home inspector Dr. Pérez. Getting oxygen supplementation. Admitted with acute COPD exacerbation, acute hypoxic respiratory failure. Started on bronchodilators, IV and inhaled steroids. Today: Sitting up in bed. Breathing slightly better. Did tolerate some diet. Some less wheezing. Review of systems: Was done for constitutional, cardiovascular, GI, pulmonary. relevant finding as above Active Medications Albuterol Sulfate (Albuterol Hfa Inhaler) 2 puff INHALATION RT-QID PRN PRN Reason: Shortness Of Breath Albuterol/Ipratropium (Ipratropium-Albuterol 3 Ml Neb) 3 ml INHALATION RT-QID [facility] Last Admin: 07/17/20 11:02 Dose: 3 ml Documented by: Budesonide (Budesonide 1 Mg/2 Ml Nebu) 1 mg INHALATION RT-BID [facility] Last Admin: 07/17/20 07:34 Dose: 1 mg Documented by: Enoxaparin Sodium (Enoxaparin 40 Mg/0.4 Ml Syringe) 40 mg SQ DAILY [facility] Last Admin: 07/17/20 08:02 Dose: 40 mg Documented by: Formoterol Fumarate (Formoterol Fumarate 20 Mcg/2 Ml Nebu) 20 mcg INHALATION RT-BID [facility] Last Admin: 07/17/20 07:34 Dose: 20 mcg Documented by: Sodium Chloride (Saline 0.9%) 1,000 mls @ 50 mls/hr IV .Q20H [facility] Last Admin: 07/17/20 05:29 Dose: 50 mls/hr Documented by: Methylprednisolone Sodium Succinate (Methylprednisolone Sod Succi 125 Mg/2 Ml Vial) 60 mg IV Q6HR [facility] Last Admin: 07/17/20 12:23 Dose: 60 mg Documented by: Multivitamins (Multivitamins, Thera 1 Each Tab) 1 each PO DAILY [facility] Last Admin: 07/17/20 08:01 Dose: 1 each Documented by: Nicotine (Nicotine 7mg/24hr Patch) 1 patch TRANSDERM DAILY [facility] Last Admin: 07/17/20 08:02 Dose: 1 patch Documented by: Pantoprazole Sodium (Pantoprazole 40 Mg Tablet) 40 mg PO DAILY@0730 [facility] Last Admin: 07/17/20 08:01 Dose: 40 mg Documented by: Past medical history to include: Insomnia, GERD, COPD, Social history: . 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 Smoking a few cigarettes a day. No alcohol Physical examination: VITAL SIGNS: 96, 87, 16, 99/56, 97% on oxygen GENERAL: He planning in bed, short of breath EYES: Pupils equal. Conjunctiva normal. HEENT: External appearance of nose and ears normal, oral cavity grossly normal. NECK: JVD not raised; masses not palpable. HEART: First and second heart sounds are normal; no edema. LUNGS: Respiratory rate increased, diminished breath sounds prolonged expiration , accessory muscles are working, ABDOMEN: Soft, nontender, liver spleen not palpable, no masses palpable. PSYCH: Alert and oriented x3; mood and affect anxious MUSCULAR skeletal: Evidence of OA INVESTIGATIONS, reviewed in the clinical context: WBC 7.5 hemoglobin 13.6 platelets 23 potassium 5.5, repeat 5.1 creatinine 0.9 Troponin I less than 0.012, proBNP 151 Influenza type A, type B, RSV, overnight 19 PCR: Not detected EKG tracing personally reviewed by me-sinus rhythm, P pulmonale Chest x-ray film personally reviewed by me-hyperinflated. Infiltrate acute versus chronic Assessment and plan: -Acute severe COPD exacerbation in a current smoker-slow to respond. Continue bronchodilators, IV and inhaled steroids. Consult pulmonary -Acute hypoxic respiratory failure from COPD exacerbation, placed on oxygen supplementation -Chronic insomnia for medical reasons, use melatonin -Severe protein calorie malnutrition with a BMI of 16.6. nutritional supplement. Consult dietitian -Sigmoid diverticulosis, asymptomatic Follow clinically -DVT prophylaxis started on Lovenox. -Chronic nicotine dependence patient cigarette smoker. Patient counseled. Nicotine patch Discussed with the patient and at the bedside. Continue current treatment plan.
[2020-07-18] MEDS: methylPREDNISolone SOD SUCCI 125 MG/2 ML VIAL IV SCH ×5 (00:21→23:02)
[2020-07-18] MEDS: NICOTINE 7MG/24HR PATCH TRANSDERM SCH (07:28)
[2020-07-18] MEDS: ENOXAPARIN 40 MG/0.4 ML SYRINGE SQ SCH (07:28)
[2020-07-18] MEDS: PANTOPRAZOLE 40 MG TABLET PO SCH (07:28)
[2020-07-18] MEDS: MULTIVITAMINS, THERA 1 EACH TAB PO SCH (07:28)
[2020-07-18] MEDS: FORMOTEROL FUMARATE 20 MCG/2 ML NEBU INHALATION SCH ×3 (08:33→20:28)
[2020-07-18] MEDS: IPRATROPIUM-ALBUTEROL 3 ML NEB INHALATION SCH ×5 (08:33→20:11)
[2020-07-18] MEDS: BUDESONIDE 1 MG/2 ML NEBU INHALATION SCH ×3 (08:33→20:12)
--- NOTE | 2020-07-18 14:29 | P.PN ---
Subjective Progress Note Date: 07/18/20 Principal diagnosis: COPD exacerbation This is a pleasant 70-year-old gentleman with a known history of chronic and ongoing tobacco dependence of greater than 30 years. He has been seen by Dr. Pérez in our office in the past. He's been maintained on Stiolto, albuterol and DuoNeb inhalations. He presented to the emergency room early this morning with complaints of increasing shortness of breath cough and congestion. Chest x-ray revealed evidence of chronic lung disease but no acute pulmonary process. White count 7.5. Hemoglobin 13.6. Sodium 143. Potassium 5.5. Creatinine 0.90. Glucose 114. LDH 444. C-reactive protein 0.8. Troponin 0.012. Influenza screen negative. Coronavirus screen negative. He was given 2 L of fluid resuscitation with a 0.9 normal saline at 130 ML's per hour. He was placed on BiPAP 10/5 and 35% FiO2. He was given IV Solu-Medrol and bronchodilators. He is seen today in consultation in the emergency department. He's currently resting fairly comfortably on a stretcher. Remains on the BiPAP. O2 saturation 98%. Asking to be converted back to nasal cannula. The patient is seen today 07/17/2020 follow-up in the observation unit. He is currently resting comfortably in bed. Awake and alert in no acute distress. Currently on 4 L/m per nasal cannula maintaining O2 saturations in the 90s. 0.9% normal saline at 50 MLS per hour. Maintained on DuoNeb inhalations, Pulmicort and Perforomist inhalations, IV Medrol. NicoDerm patch in place. Still dyspneic with minimal conversation, minimal exertion. The patient is seen today 07/18/2020 follow-up on the regular medical floor. She is sitting up in bed. Awake and alert in no acute distress. Maintaining O2 saturations in the 90s on 4 L/m per nasal cannula. Remains on DuoNeb inhalations, Pulmicort and Perforomist inhalations, IV site Medrol. NicoDerm patch and place. Objective - Vital Signs Vital signs: Vital Signs Temp 97.5 F L 07/18/20 07:15 Pulse 76 07/18/20 12:32 Resp 16 07/18/20 07:15 BP 116/72 07/18/20 07:15 Pulse Ox 96 07/18/20 07:15 Intake & Output 07/17/20 07/18/20 07/18/20 18:59 06:59 18:59 Intake Total 150 Output Total 200 300 Balance -50 -300 Weight 43.5 kg Intake: Intake, IV Titration 150 Amount Sodium Chloride 0.9% 1, 150 000 ml @ 50 mls/hr IV . Q20H [facility] Rx#:[id number] Output: Urine 200 300 Other: # Voids 2 - Exam GENERAL EXAM: Alert, pleasant 70-year-old gentleman, on 4 liters per minute per nasal cannula, fairly comfortable in no apparent distress. HEAD: Normocephalic. EYES: Normal reaction of pupils, equal size. NOSE: Clear with pink turbinates. THROAT: No erythema or exudates. NECK: No masses, no JVD. CHEST: No chest wall deformity. LUNGS: Equal air entry with bilateral end expiratory wheeze, diminished. CVS: S1 and S2 normal with no audible murmur, regular rhythm. ABDOMEN: No hepatosplenomegaly, normal bowel sounds, no guarding or rigidity. SPINE: No scoliosis or deformity SKIN: No rashes CENTRAL NERVOUS SYSTEM: No focal deficits, tone is normal in all 4 extremities. EXTREMITIES: There is no peripheral edema. No clubbing, no cyanosis. Peripheral pulses are intact. - Labs CBC & Chem 7: 07/16/20 02:50 07/16/20 10:36 Assessment and Plan Assessment: 1 Acute on chronic hypoxemic respiratory failure secondary to an acute exacerbation of chronic obstructive pulmonary disease 2 Chronic and ongoing tobacco dependence 3 Oxygen dependent chronic obstructive pulmonary disease 4 Gastroesophageal reflux disease Plan: The patient was seen and evaluated by Dr. Bravo Cleared for discharge from the pulmonary standpoint Continue home pulmonary medications Complete a prednisone taper Follow-up with Dr. Pérez in our office I, the cosigning physician, performed a history & physical examination of the patient. Lungs sounds with bilateral end expiratory wheeze, diminished. Maintaining good O2 saturations in the 90s on 4 L/m per nasal cannula. I discussed the assessment and plan of care with my nurse practitioner, Yulissa Goodson. I attest to the above note as dictated by her.
--- NOTE | 2020-07-18 17:39 | P.PN ---
Progress Note - Text Progress Note Date: 07/18/20 Chief Complaint: Shortness of breath History of presenting complaint: This is a pleasant 70-year-old patient of Dr. Rocha. Long-standing smoker. No down to 5-7 a day. baseline shortness of breath. Patient now presents with worsening short of breath wheezing. Some clear sputum. Decreased appetite. Tired rundown. Patient's at the bedside. Patient does follow with tax compliance agent Dr. Pérez. Getting oxygen supplementation. Admitted with acute COPD exacerbation, acute hypoxic respiratory failure. Started on bronchodilators, IV and inhaled steroids. Today: Short of breath. Tired. Oral intake good. Cough. Review of systems: Was done for constitutional, cardiovascular, GI, pulmonary. relevant finding as above Active Medications Albuterol Sulfate (Albuterol Hfa Inhaler) 2 puff INHALATION RT-QID PRN PRN Reason: Shortness Of Breath Albuterol/Ipratropium (Ipratropium-Albuterol 3 Ml Neb) 3 ml INHALATION RT-QID [facility] Last Admin: 07/18/20 15:36 Dose: 3 ml Documented by: Budesonide (Budesonide 1 Mg/2 Ml Nebu) 1 mg INHALATION RT-BID [facility] Last Admin: 07/18/20 08:42 Dose: 1 mg Documented by: Enoxaparin Sodium (Enoxaparin 40 Mg/0.4 Ml Syringe) 40 mg SQ DAILY [facility] Last Admin: 07/18/20 07:28 Dose: 40 mg Documented by: Formoterol Fumarate (Formoterol Fumarate 20 Mcg/2 Ml Nebu) 20 mcg INHALATION RT-BID [facility] Last Admin: 07/18/20 08:42 Dose: 20 mcg Documented by: Sodium Chloride (Saline 0.9%) 1,000 mls @ 50 mls/hr IV .Q20H [facility] Last Admin: 07/17/20 05:29 Dose: 50 mls/hr Documented by: Methylprednisolone Sodium Succinate (Methylprednisolone Sod Succi 125 Mg/2 Ml Vial) 60 mg IV Q6HR [facility] Last Admin: 07/18/20 17:33 Dose: 60 mg Documented by: Multivitamins (Multivitamins, Thera 1 Each Tab) 1 each PO DAILY [facility] Last Admin: 07/18/20 07:28 Dose: 1 each Documented by: Nicotine (Nicotine 7mg/24hr Patch) 1 patch TRANSDERM DAILY [facility] Last Admin: 07/18/20 07:28 Dose: 1 patch Documented by: Pantoprazole Sodium (Pantoprazole 40 Mg Tablet) 40 mg PO DAILY@0730 [facility] Last Admin: 07/18/20 07:28 Dose: 40 mg Documented by: Past medical history to include: Insomnia, GERD, COPD, Social history: . 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 Smoking a few cigarettes a day. No alcohol Physical examination: VITAL SIGNS: 97.7, 99, 16, 114/65, 94% on 4 L GENERAL: Sitting up in bed, short of breath EYES: Pupils equal. Conjunctiva normal. HEENT: External appearance of nose and ears normal, oral cavity grossly normal. NECK: JVD not raised; masses not palpable. HEART: First and second heart sounds are normal; no edema. LUNGS: Respiratory rate increased, diminished breath sounds prolonged expiration , ABDOMEN: Soft, nontender, liver spleen not palpable, no masses palpable. PSYCH: Alert and oriented x3; mood and affect anxious MUSCULAR skeletal: Evidence of OA INVESTIGATIONS, reviewed in the clinical context: WBC 7.5 hemoglobin 13.6 platelets 23 potassium 5.5, repeat 5.1 creatinine 0.9 Troponin I less than 0.012, proBNP 151 Influenza type A, type B, RSV, overnight 19 PCR: Not detected EKG tracing personally reviewed by me-sinus rhythm, P pulmonale Chest x-ray film personally reviewed by me-hyperinflated. Infiltrate acute versus chronic Assessment and plan: -Acute severe COPD exacerbation in a current smoker-slow to respond. Continue bronchodilators, IV and inhaled steroids. pulmonary -Acute hypoxic respiratory failure from COPD exacerbation, placed on oxygen supplementation-4 L -Chronic insomnia for medical reasons, use melatonin -Severe protein calorie malnutrition with a BMI of 16.6. nutritional supplement. dietitian -Sigmoid diverticulosis, asymptomatic Follow clinically -DVT prophylaxis started on Lovenox. -Chronic nicotine dependence patient cigarette smoker. Patient counseled. Nicotine patch We will encouraged to sit up in a chair. Try to decrease FiO2. Discussed with patient. Not ready for discharge
[2020-07-19] MEDS: SODIUM CHLORIDE 0.9% 1,000 ML IV SCH (03:43)
[2020-07-19] MEDS: methylPREDNISolone SOD SUCCI 125 MG/2 ML VIAL IV SCH ×4 (05:10→23:33)
[2020-07-19 05:55] LABS: African American GFR (CKD) 84 (>60 ml/min/1.73 sqM); Anion Gap 2 mmol/L; Blood Urea Nitrogen 27 mg/dL (9-20); Calcium 8.7 mg/dL (8.4-10.2); Carbon Dioxide 31 mmol/L (22-30); Chloride 105 mmol/L (98-107); Glucose 140 mg/dL (74-99); Non-African American GFR(CKD) 73 (>60 ml/min/1.73 sqM); Potassium 4.7 mmol/L (3.5-5.1); Sodium 138 mmol/L (137-145)
[2020-07-19] MEDS: FORMOTEROL FUMARATE 20 MCG/2 ML NEBU INHALATION SCH ×2 (07:35→20:41)
[2020-07-19] MEDS: IPRATROPIUM-ALBUTEROL 3 ML NEB INHALATION SCH ×4 (07:35→20:27)
[2020-07-19] MEDS: BUDESONIDE 1 MG/2 ML NEBU INHALATION SCH ×2 (07:35→20:27)
[2020-07-19] MEDS: PANTOPRAZOLE 40 MG TABLET PO SCH (07:45)
[2020-07-19] MEDS: ENOXAPARIN 40 MG/0.4 ML SYRINGE SQ SCH (08:15)
[2020-07-19] MEDS: NICOTINE 7MG/24HR PATCH TRANSDERM SCH (08:15)
[2020-07-19] MEDS: MULTIVITAMINS, THERA 1 EACH TAB PO SCH (08:16)
--- NOTE | 2020-07-19 14:41 | P.PN ---
Progress Note - Text Progress Note Date: 07/19/20 Chief Complaint: Shortness of breath History of presenting complaint: This is a pleasant 70-year-old patient of Dr. Rocha. Long-standing smoker. No down to 5-7 a day. baseline shortness of breath. Patient now presents with worsening short of breath wheezing. Some clear sputum. Decreased appetite. Tired rundown. Patient's at the bedside. Patient does follow with serials librarian Dr. Pérez. Getting oxygen supplementation. Admitted with acute COPD exacerbation, acute hypoxic respiratory failure. Started on bronchodilators, IV and inhaled steroids. Today: Less Short of breath, less wheezing. Tired. Oral intake good. Cough. Feels a bit better Review of systems: Was done for constitutional, cardiovascular, GI, pulmonary. relevant finding as above Active Medications Albuterol Sulfate (Albuterol Hfa Inhaler) 2 puff INHALATION RT-QID PRN PRN Reason: Shortness Of Breath Albuterol/Ipratropium (Ipratropium-Albuterol 3 Ml Neb) 3 ml INHALATION RT-QID [facility] Last Admin: 07/19/20 12:00 Dose: 3 ml Documented by: Budesonide (Budesonide 1 Mg/2 Ml Nebu) 1 mg INHALATION RT-BID [facility] Last Admin: 07/19/20 07:35 Dose: 1 mg Documented by: Enoxaparin Sodium (Enoxaparin 40 Mg/0.4 Ml Syringe) 40 mg SQ DAILY [facility] Last Admin: 07/19/20 08:15 Dose: 40 mg Documented by: Formoterol Fumarate (Formoterol Fumarate 20 Mcg/2 Ml Nebu) 20 mcg INHALATION RT-BID [facility] Last Admin: 07/19/20 07:35 Dose: 20 mcg Documented by: Methylprednisolone Sodium Succinate (Methylprednisolone Sod Succi 125 Mg/2 Ml Vial) 60 mg IV Q6HR [facility] Last Admin: 07/19/20 12:58 Dose: 60 mg Documented by: Multivitamins (Multivitamins, Thera 1 Each Tab) 1 each PO DAILY [facility] Last Admin: 07/19/20 08:16 Dose: 1 each Documented by: Nicotine (Nicotine 7mg/24hr Patch) 1 patch TRANSDERM DAILY [facility] Last Admin: 07/19/20 08:15 Dose: 1 patch Documented by: Pantoprazole Sodium (Pantoprazole 40 Mg Tablet) 40 mg PO DAILY@0730 [facility] Last Admin: 07/19/20 07:45 Dose: 40 mg Documented by: Past medical history to include: Insomnia, GERD, COPD, Social history: . 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 Smoking a few cigarettes a day. No alcohol Physical examination: VITAL SIGNS: 97.7, 100, 20, 105/63, 92% on 4 L GENERAL: Sitting up in bed, breathing better EYES: Pupils equal. Conjunctiva normal. HEENT: External appearance of nose and ears normal, oral cavity grossly normal. NECK: JVD not raised; masses not palpable. HEART: First and second heart sounds are normal; no edema. LUNGS: Respiratory rate increased, diminished breath sounds prolonged expiration , ABDOMEN: Soft, nontender, liver spleen not palpable, no masses palpable. PSYCH: Alert and oriented x3; mood and affect anxious MUSCULAR skeletal: Evidence of OA INVESTIGATIONS, reviewed in the clinical context: WBC 7.5 hemoglobin 13.6 platelets 23 potassium 5.5, repeat 5.1 creatinine 0.9 Troponin I less than 0.012, proBNP 151 Influenza type A, type B, RSV, overnight 19 PCR: Not detected EKG tracing personally reviewed by me-sinus rhythm, P pulmonale Chest x-ray film personally reviewed by me-hyperinflated. Infiltrate acute versus chronic Assessment and plan: -Acute severe COPD exacerbation in a current improving Continue bronchodilators, IV and inhaled steroids. pulmonary -Acute hypoxic respiratory failure from COPD exacerbation, placed on oxygen supplementation-4 L -Chronic insomnia for medical reasons, use melatonin -Severe protein calorie malnutrition with a BMI of 16.6. nutritional supplement. dietitian -Sigmoid diverticulosis, asymptomatic Follow clinically -DVT prophylaxis started on Lovenox. -Chronic nicotine dependence patient cigarette smoker. Patient counseled. Nicotine patch Cutback FiO2. Other medications to continue.
--- NOTE | 2020-07-19 16:01 | P.PN ---
Subjective Progress Note Date: 07/19/20 Principal diagnosis: COPD exacerbation This is a pleasant 70-year-old gentleman with a known history of chronic and ongoing tobacco dependence of greater than 30 years. He has been seen by Dr. Pérez in our office in the past. He's been maintained on Stiolto, albuterol and DuoNeb inhalations. He presented to the emergency room early this morning with complaints of increasing shortness of breath cough and congestion. Chest x-ray revealed evidence of chronic lung disease but no acute pulmonary process. White count 7.5. Hemoglobin 13.6. Sodium 143. Potassium 5.5. Creatinine 0.90. Glucose 114. LDH 444. C-reactive protein 0.8. Troponin 0.012. Influenza screen negative. Coronavirus screen negative. He was given 2 L of fluid resuscitation with a 0.9 normal saline at 130 ML's per hour. He was placed on BiPAP 10/5 and 35% FiO2. He was given IV Solu-Medrol and bronchodilators. He is seen today in consultation in the emergency department. He's currently resting fairly comfortably on a stretcher. Remains on the BiPAP. O2 saturation 98%. Asking to be converted back to nasal cannula. The patient is seen today 07/17/2020 follow-up in the observation unit. He is currently resting comfortably in bed. Awake and alert in no acute distress. Currently on 4 L/m per nasal cannula maintaining O2 saturations in the 90s. 0.9% normal saline at 50 MLS per hour. Maintained on DuoNeb inhalations, Pulmicort and Perforomist inhalations, IV Medrol. NicoDerm patch in place. Still dyspneic with minimal conversation, minimal exertion. The patient is seen today 07/18/2020 follow-up on the regular medical floor. She is sitting up in bed. Awake and alert in no acute distress. Maintaining O2 saturations in the 90s on 4 L/m per nasal cannula. Remains on DuoNeb inhalations, Pulmicort and Perforomist inhalations, IV site Medrol. NicoDerm patch and place. Patient is seen today 07/19/2020 follow-up on the regular medical floor. He is sitting up and about at the bedside. Awake and alert in no acute distress. Breathing quite a bit easier today compared to yesterday. Maintaining good O2 saturations in the 90s on 4 L/m per nasal cannula. Afebrile. Hemodynamically stable. Sodium 138. Potassium 4.7. Creatinine 1.04. Remains on DuoNeb inhalations, Pulmicort and Perforomist inhalations, IV solu Medrol. NicoDerm patch and place. Objective - Vital Signs Vital signs: Vital Signs Temp 97.7 F 07/19/20 14:00 Pulse 100 07/19/20 14:00 Resp 20 07/19/20 14:00 BP 105/63 07/19/20 14:00 Pulse Ox 92 L 07/19/20 14:00 Intake & Output 07/18/20 07/19/20 07/19/20 18:59 06:59 18:59 Intake Total 920 Balance 920 Intake: Oral 920 Other: # Voids 1 2 - Exam GENERAL EXAM: Alert, pleasant 70-year-old gentleman, on 4 liters per minute per nasal cannula, fairly comfortable in no apparent distress. HEAD: Normocephalic. EYES: Normal reaction of pupils, equal size. NOSE: Clear with pink turbinates. THROAT: No erythema or exudates. NECK: No masses, no JVD. CHEST: No chest wall deformity. LUNGS: Equal air entry with bilateral end expiratory wheeze, diminished. CVS: S1 and S2 normal with no audible murmur, regular rhythm. ABDOMEN: No hepatosplenomegaly, normal bowel sounds, no guarding or rigidity. SPINE: No scoliosis or deformity SKIN: No rashes CENTRAL NERVOUS SYSTEM: No focal deficits, tone is normal in all 4 extremities. EXTREMITIES: There is no peripheral edema. No clubbing, no cyanosis. Peripheral pulses are intact. - Labs CBC & Chem 7: 07/16/20 02:50 07/19/20 05:05 Labs: Abnormal Lab Results - Last 24 Hours (Table) 07/19/20 Range/Units 05:05 Carbon Dioxide 31 H (22-30) mmol/L BUN 27 H (9-20) mg/dL Glucose 140 H (74-99) mg/dL Assessment and Plan Assessment: 1 Acute on chronic hypoxemic respiratory failure secondary to an acute exacerbation of chronic obstructive pulmonary disease 2 Chronic and ongoing tobacco dependence 3 Oxygen dependent chronic obstructive pulmonary disease 4 Gastroesophageal reflux disease Plan: The patient was seen and evaluated by Dr. Bravo Cleared for discharge from the pulmonary standpoint Complete a prednisone taper Follow-up with Dr. Pérez in our office I, the cosigning physician, performed a history & physical examination of the patient. Lungs sounds with bilateral end expiratory wheeze, diminished. Maintaining good O2 saturations in the 90s on 4 L/m per nasal cannula. I disc ussed the assessment and plan of care with my nurse practitioner, Yulissa Goodson. I attest to the above note as dictated by her.
[2020-07-20] MEDS: methylPREDNISolone SOD SUCCI 125 MG/2 ML VIAL IV SCH ×3 (05:25→17:59)
[2020-07-20] MEDS: IPRATROPIUM-ALBUTEROL 3 ML NEB INHALATION SCH ×4 (07:19→20:06)
[2020-07-20] MEDS: FORMOTEROL FUMARATE 20 MCG/2 ML NEBU INHALATION SCH ×2 (07:19→20:06)
[2020-07-20] MEDS: BUDESONIDE 1 MG/2 ML NEBU INHALATION SCH ×2 (07:19→20:06)
[2020-07-20] MEDS: NICOTINE 7MG/24HR PATCH TRANSDERM SCH (08:27)
[2020-07-20] MEDS: PANTOPRAZOLE 40 MG TABLET PO SCH (08:27)
[2020-07-20] MEDS: MULTIVITAMINS, THERA 1 EACH TAB PO SCH (08:27)
[2020-07-20] MEDS: ENOXAPARIN 40 MG/0.4 ML SYRINGE SQ SCH (08:27)
--- NOTE | 2020-07-20 15:40 | P.PN ---
Subjective Progress Note Date: 07/20/20 70 male patient with known history of advanced COPD and chronic hypoxic respiratory failure with smoking approximately a pack of cigarettes a day. He was treated for an acute COPD exacerbation. Is gradually improving. COVID-19 was negative. He was initially placed on BiPAP at a pressure of 10/5 with an FiO2 of 35%. He was started on IV Solu-Medrol. Gradually improving currently on oxygen at 4 or liters which is very close to his baseline. No new complaints otherwise for now. He is improving. No swelling lower extremities. No angina. Tolerating diet. is at the bedside. Objective - Vital Signs Vital signs: Vital Signs Temp 98.0 F 07/20/20 14:00 Pulse 92 07/20/20 14:00 Resp 16 07/20/20 14:00 BP 107/63 07/20/20 14:00 Pulse Ox 96 07/20/20 14:00 Intake & Output 07/19/20 07/20/20 07/20/20 18:59 06:59 18:59 Intake Total 920 240 300 Balance 920 240 300 Intake: Oral 920 240 300 Other: Voiding Method Toilet Toilet Urinal Urinal # Voids 4 2 # Bowel Movements 0 0 - Exam GENERAL EXAM: Alert, pleasant 70-year-old gentleman, on 4 liters per minute per nasal cannula, fairly comfortable in no apparent distress. HEAD: Normocephalic. EYES: Normal reaction of pupils, equal size. NOSE: Clear with pink turbinates. THROAT: No erythema or exudates. NECK: No masses, no JVD. CHEST: No chest wall deformity. LUNGS: Equal air entry with bilateral end expiratory wheeze, diminished. CVS: S1 and S2 normal with no audible murmur, regular rhythm. ABDOMEN: No hepatosplenomegaly, normal bowel sounds, no guarding or rigidity. SPINE: No scoliosis or deformity SKIN: No rashes CENTRAL NERVOUS SYSTEM: No focal deficits, tone is normal in all 4 extremities. EXTREMITIES: There is no peripheral edema. No clubbing, no cyanosis. Perip heral pulses are intact. - Labs CBC & Chem 7: 07/16/20 02:50 07/19/20 05:05 Assessment and Plan Plan: 1 Acute on chronic hypoxemic respiratory failure secondary to an acute exacerbation of chronic obstructive pulmonary disease 2 Chronic and ongoing tobacco dependence 3 Oxygen dependent chronic obstructive pulmonary disease 4 Gastroesophageal reflux disease Plan: Smoking cessation counseling. This patient needs to quit smoking as soon as possible. If needed, I'm going to give him some nicotine patches today. Continue IV Solu-Medrol. Transition to him to a prednisone as of tomorrow Clinically improving and possible discharge in the next 24 hours. I'll see him back in follow-up tomorrow.
[2020-07-20] MEDS: NICOTINE 14MG/24HR PATCH TRANSDERM SCH (17:44)
--- NOTE | 2020-07-20 19:35 | P.PN ---
Progress Note - Text Progress Note Date: 07/20/20 Chief Complaint: Shortness of breath History of presenting complaint: This is a pleasant 70-year-old patient of Dr. Rocha. Long-standing smoker. No down to 5-7 a day. baseline shortness of breath. Patient now presents with worsening short of breath wheezing. Some clear sputum. Decreased appetite. Tired rundown. Patient's at the bedside. Patient does follow with golf course assistant Dr. Pérez. Getting oxygen supplementation. Admitted with acute COPD exacerbation, acute hypoxic respiratory failure. Started on bronchodilators, IV and inhaled steroids. Today: She is a bit tired. Short of breath. Oral intake. Fair. Some wheezing. Slight dizzy when getting up.. Feels a bit weak Review of systems: Was done for constitutional, cardiovascular, GI, pulmonary. relevant finding as above Active Medications Albuterol Sulfate (Albuterol Hfa Inhaler) 2 puff INHALATION RT-QID PRN PRN Reason: Shortness Of Breath Albuterol/Ipratropium (Ipratropium-Albuterol 3 Ml Neb) 3 ml INHALATION RT-QID [facility] Last Admin: 07/20/20 15:41 Dose: 3 ml Documented by: Budesonide (Budesonide 1 Mg/2 Ml Nebu) 1 mg INHALATION RT-BID [facility] Last Admin: 07/20/20 07:19 Dose: 1 mg Documented by: Enoxaparin Sodium (Enoxaparin 40 Mg/0.4 Ml Syringe) 40 mg SQ DAILY [facility] Last Admin: 07/20/20 08:27 Dose: 40 mg Documented by: Formoterol Fumarate (Formoterol Fumarate 20 Mcg/2 Ml Nebu) 20 mcg INHALATION RT-BID [facility] Last Admin: 07/20/20 07:19 Dose: 20 mcg Documented by: Methylprednisolone Sodium Succinate (Methylprednisolone Sod Succi 125 Mg/2 Ml Vial) 60 mg IV Q6HR [facility] Last Admin: 07/20/20 17:59 Dose: 60 mg Documented by: Multivitamins (Multivitamins, Thera 1 Each Tab) 1 each PO DAILY [facility] Last Admin: 07/20/20 08:27 Dose: 1 each Documented by: Nicotine (Nicotine 14mg/24hr Patch) 1 patch TRANSDERM DAILY [facility] Last Admin: 07/20/20 17:44 Dose: Not Given Documented by: Pantoprazole Sodium (Pantoprazole 40 Mg Tablet) 40 mg PO DAILY@0730 [facility] Last Admin: 07/20/20 08:27 Dose: 40 mg Documented by: Past medical history to include: Insomnia, GERD, COPD, Social history: . 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 Smoking a few cigarettes a day. No alcohol Physical examination: VITAL SIGNS: 98, 92, 16, 107/63, 96% on 4 L GENERAL: Sitting up in bed, tired EYES: Pupils equal. Conjunctiva normal. HEENT: External appearance of nose and ears normal, oral cavity grossly normal. NECK: JVD not raised; masses not palpable. HEART: First and second heart sounds are normal; no edema. LUNGS: Respiratory rate increased, diminished breath sounds prolonged expiration , ABDOMEN: Soft, nontender, liver spleen not palpable, no masses palpable. PSYCH: Alert and oriented x3; mood and affect anxious MUSCULAR skeletal: Evidence of OA INVESTIGATIONS, reviewed in the clinical context: WBC 7.5 hemoglobin 13.6 platelets 23 potassium 5.5, repeat 5.1 creatinine 0.9 Troponin I less than 0.012, proBNP 151 Influenza type A, type B, RSV, overnight 19 PCR: Not detected EKG tracing personally reviewed by me-sinus rhythm, P pulmonale Chest x-ray film personally reviewed by me-hyperinflated. Infiltrate acute versus chronic Assessment and plan: -Acute severe COPD exacerbation in a current improving Continue bronchodilators, IV and inhaled steroids. pulmonary -Acute hypoxic respiratory failure from COPD exacerbation, placed on oxygen supplementation-4 L -Chronic insomnia for medical reasons, use melatonin -Severe protein calorie malnutrition with a BMI of 16.6. nutritional supplement. dietitian -Sigmoid diverticulosis, asymptomatic Follow clinically -DVT prophylaxis started on Lovenox. -Chronic nicotine dependence patient cigarette smoker. Patient counseled. 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 Cutback on Solu-Medrol -Acute medical debility Condition sitting up in a chair increase activity Cutback Solu-Medrol. Increase activity
[2020-07-20] MEDS: methylPREDNISolone SOD SUCCI 40 MG/ML 1 ML VIAL IV SCH (20:38)
[2020-07-21] MEDS: methylPREDNISolone SOD SUCCI 125 MG/2 ML VIAL IV SCH ×3 (00:23→10:55)
[2020-07-21 07:54] VITALS: BP 122/77; RESP 16; TEMP 97.7
[2020-07-21] MEDS: BUDESONIDE 1 MG/2 ML NEBU INHALATION SCH (08:05)
[2020-07-21] MEDS: IPRATROPIUM-ALBUTEROL 3 ML NEB INHALATION SCH ×2 (08:05→11:41)
[2020-07-21] MEDS: FORMOTEROL FUMARATE 20 MCG/2 ML NEBU INHALATION SCH (08:05)
[2020-07-21] MEDS: MULTIVITAMINS, THERA 1 EACH TAB PO SCH (08:10)
[2020-07-21] MEDS: PANTOPRAZOLE 40 MG TABLET PO SCH (08:10)
[2020-07-21] MEDS: methylPREDNISolone SOD SUCCI 40 MG/ML 1 ML VIAL IV SCH (08:10)
[2020-07-21] MEDS: NICOTINE 14MG/24HR PATCH TRANSDERM SCH (08:10)
[2020-07-21] MEDS: ENOXAPARIN 40 MG/0.4 ML SYRINGE SQ SCH (08:10)
[2020-07-21 11:47] VITALS: PULSE 108
--- NOTE | 2020-07-21 20:31 | P.DS ---
Providers Date of admission: 07/16/20 04:30 Expected date of discharge: 07/21/20 Attending physician: Rob Walsh Consults: 07/16/20 04:30 Consult Physician Routine Consulting Provider: Carrie Faulkner Consult Reason/Comments: copd Do you want consulting provider notified?: Yes Primary care physician: Sarah Rocha MD Hospital Course: Chief Complaint: Shortness of breath History of presenting complaint: This is a pleasant 70-year-old patient of Dr. Rocha. Long-standing smoker. No down to 5-7 a day. baseline shortness of breath. Patient now presents with worsening short of breath wheezing. Some clear sputum. Decreased appetite. Tired rundown. Patient's at the bedside. Patient does follow with assistant family teacher Dr. Pérez. Getting oxygen supplementation. Admitted with acute COPD exacerbation, acute hypoxic respiratory failure. Started on bronchodilators, IV and inhaled steroids. Today: Feeling better. Less diet. Told him to increase his activity gradually. Some element of steroid myopathy. Also reminded about smoking cessation. Cleared by pulmonary Discussion and discharge planning more than 35 minutes Consultation: Dr. Faulkner and partners from pulmonary Past medical history to include: Insomnia, GERD, COPD, Social history: . 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 Smoking a few cigarettes a day. No alcohol Physical examination: VITAL SIGNS: 97.7, 80, 16, 122/77, 90% on 2 L GENERAL: Sitting up in bed, awake EYES: Pupils equal. Conjunctiva normal. HEENT: External appearance of nose and ears normal, oral cavity grossly normal. NECK: JVD not raised; masses not palpable. HEART: First and second heart sounds are normal; no edema. LUNGS: Respiratory rate increased, diminished breath sounds prolonged expiration , ABDOMEN: Soft, nontender, liver spleen not palpable, no masses palpable. PSYCH: Alert and oriented x3; mood and affect anxious MUSCULAR skeletal: Evidence of OA INVESTIGATIONS, reviewed in the clinical context: WBC 7.5 hemoglobin 13.6 platelets 23 potassium 5.5, repeat 5.1 creatinine 0.9 Troponin I less than 0.012, proBNP 151 Influenza type A, type B, RSV, overnight 19 PCR: Not detected EKG tracing personally reviewed by me-sinus rhythm, P pulmonale Chest x-ray film personally reviewed by me-hyperinflated. Infiltrate acute versus chronic Assessment and plan: -Acute severe COPD exacerbation in a current improving Continue bronchodilators, IV and inhaled steroids. Home on tapering doses of steroids -Acute hypoxic respiratory failure from COPD exacerbation, placed on oxygen supplementation-4 L-discharge in 2 L -Chronic insomnia for medical reasons, use melatonin -Severe protein calorie malnutrition with a BMI of 16.6. nutritional supplement. dietitian -Sigmoid diverticulosis, asymptomatic Follow clinically -DVT prophylaxis started on Lovenox. -Chronic nicotine dependence patient cigarette smoker. Patient counseled. 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 Cutback on Solu-Medrol. Taper steroids -Acute medical debility Increase activity gradually Disposition: Home Plan - Discharge Summary Discharge Rx Participant: No New Discharge Prescriptions: New predniSONE 10 mg PO DAILY #30 tab Nicotine 14Mg/24Hr Patch [Habitrol] 1 patch TRANSDERM DAILY #14 patch Budesonide-Formot 160-4.5 Mcg [Symbicort 160-4.5 Mcg Inhaler] 2 puff INHALATION BID #1 inhaler Continue Omeprazole 20 mg PO DAILY Albuterol Inhaler [Ventolin Hfa Inhaler] 2 puff INHALATION RT-QID PRN PRN Reason: Shortness Of Breath Multivitamins, Thera [Multivitamin (formulary)] 1 tab PO DAILY Changed Ipratropium-Albuterol Nebulize [Duoneb 0.5 mg-3 mg/3 ml Soln] 3 ml INHALATION TID #120 neb Discontinued Tiotropium Br/Olodaterol HCl [Stiolto Respimat Inhal Republic] 2 puff INHALATION RT-DAILY Discharge Medication List Omeprazole 20 mg PO DAILY 02/23/18 [History] Albuterol Inhaler [Ventolin Hfa Inhaler] 2 puff INHALATION RT-QID PRN 01/22/20 [History] Multivitamins, Thera [Multivitamin (formulary)] 1 tab PO DAILY 01/22/20 [History] Budesonide-Formot 160-4.5 Mcg [Symbicort 160-4.5 Mcg Inhaler] 2 puff INHALATION BID #1 inhaler 07/21/20 [Rx] Ipratropium-Albuterol Nebulize [Duoneb 0.5 mg-3 mg/3 ml Soln] 3 ml INHALATION TID #120 neb 05/04/21 [Rx] Nicotine 14Mg/24Hr Patch [Habitrol] 1 patch TRANSDERM DAILY #14 patch 07/21/20 [Rx] predniSONE 10 mg PO DAILY #30 tab 07/21/20 [Rx] Follow up Appointment(s)/Referral(s): Arina Pérez MD [STAFF PHYSICIAN] - 08/10/20 10:00 am Sarah Rocha MD [Primary Care Provider] - 07/24/20 10:30 am Patient Instructions/Handouts: COPD (Chronic Obstructive Pulmonary Disease) (DC) Discharge Disposition: HOME SELF-CARE
== END 2020-07-21 12:35 | disposition home or self-care (01) | DRG 190 ==
LOC: EC 02:28 → 4SSUR 04:30 → 1SOBS 19:25 → 6NMEDSUR 07-17 17:46
PROVIDERS: ADMIT Hospitalist; ATTEND Hospitalist
PROC: 5A09357 Assistance with Respiratory Ventilation, Less than 24 Consecutive Hours, Continuous Positive Airway Pressure (ICD-10-PCS; principal; 2020-07-16)
DX: J44.1 Chronic obstructive pulmonary disease with (acute) exacerbation (principal); J96.21 Acute and chronic respiratory failure with hypoxia; E43 Unspecified severe protein-calorie malnutrition; Z68.1 Body mass index [BMI] 19.9 or less, adult; R64 Cachexia; G72.0 Drug-induced myopathy; T38.0X5A Adverse effect of glucocorticoids and synthetic analogues, initial encounter; Z20.822 Contact with and (suspected) exposure to COVID-19; K21.9 Gastro-esophageal reflux disease without esophagitis; F41.9 Anxiety disorder, unspecified; K57.30 Diverticulosis of large intestine without perforation or abscess without bleeding; F51.04 Psychophysiologic insomnia; F17.210 Nicotine dependence, cigarettes, uncomplicated; Z71.6 Tobacco abuse counseling; Z99.81 Dependence on supplemental oxygen; Z79.899 Other long term (current) drug therapy; Z90.89 Acquired absence of other organs; Z87.39 Personal history of other diseases of the musculoskeletal system and connective tissue; Z98.890 Other specified postprocedural states; Z71.3 Dietary counseling and surveillance; Z80.9 Family history of malignant neoplasm, unspecified
CPT/HCPCS: 36415; 71045; 80048; 80053; 82550; 83605; 83615; 83735; 83880; 84145; 84484; 85025; 85610; 85730; 86140; 87636; 93005; 94640; 94660; 96361; 96374; 99285

== ENCOUNTER 2020-11-04 22:40 | Emergency (ER) | payer MEDICARE, OTHER ==
[2020-11-04 23:06] VITALS: TEMP 97.8
--- NOTE | 2020-11-04 23:38 | XR ---
EXAMINATION TYPE: XR chest 2V DATE OF EXAM: 11/04/2020 COMPARISON: 07/16/2020 HISTORY: COPD. Difficulty breathing. TECHNIQUE: 2 view FINDINGS: Heart and mediastinum are normal. There is flattening of the diaphragm. There are no hilar masses. Bony thorax is intact. IMPRESSION: COPD. No acute lung disease. No adverse change.
[2020-11-05] MEDS ORDERED: predniSONE 20 MG TAB PO STA (00:54)
[2020-11-05] MEDS ORDERED: ALBUTEROL NEBULIZED 2.5 MG/3 ML INHALATION STA ×2 (00:54→03:02)
[2020-11-05 01:24] LABS: Basophils # (A) 0.1 k/uL (0-0.2); Basophils % (A) 1 %; Eosinophils # (A) 0.1 k/uL (0-0.7); Eosinophils % (A) 1 %; HCT 47.3 % (39.0-53.0); HGB 15.6 gm/dL (13.0-17.5); Lymphocytes # (A) 0.7 k/uL (1.0-4.8); Lymphocytes % (A) 9 %; MCH 31.2 pg (25.0-35.0); MCV 94.4 fL (80.0-100.0); Mean Platelet Volume 6.6; Monocytes # (A) 0.4 k/uL (0-1.0); Monocytes % (A) 5 %; Neutrophils # (A) 6.2 k/uL (1.3-7.7); Neutrophils % (A) 82 %; Platelet Count 243 k/uL (150-450); RBC 5.01 m/uL (4.30-5.90); RDW 13.7 % (11.5-15.5); WBC 7.5 k/uL (3.8-10.6)
[2020-11-05 01:36] LABS: INR 0.9 (<1.2); Partial Thromboplastin Time 23.2 sec (22.0-30.0); Prothrombin Time 9.7 sec (9.0-12.0)
--- NOTE | 2020-11-05 01:37 | ED ---
SOB HPI - General Chief Complaint: Shortness of Breath Stated Complaint: PIERCE, COPD Time Seen by Provider: 11/05/20 00:28 Source: patient Mode of arrival: wheelchair Limitations: no limitations - History of Present Illness Initial Comments: Patient is 70-year-old man with history of COPD. The patient presents for evaluation as he states that his COPD is acting up. He believes it is been getting worse over the past approximately 2 weeks. Patient has noted increased wheezing and shortness of breath. He does have a cough at baseline with a little bit of whitish sputum. He states it hasn't changed much. No chest pain. No fever or chills. No change in urination or bowel movements. No leg pain or swelling. Last had course of steroids approximately 3-4 weeks ago, none currently. MD Complaint: shortness of breath, cough Onset/Timin -: week(s) Severity scale (1-10): 0 Consistency: constant Improves With: nothing Worsens With: nothing Known History Of: COPD Associated Symptoms: cough, sputum production Treatments Prior to Arrival: bronchodilator - Related Data Home Medications Medication Instructions Recorded Confirmed Omeprazole 20 mg PO DAILY 02/23/18 07/16/20 Albuterol Inhaler [Ventolin Hfa 2 puff INHALATION RT-QID PRN 01/22/20 07/16/20 Inhaler] Multivitamins, Thera [Multivitamin 1 tab PO DAILY 01/22/20 07/16/20 (formulary)] Previous Rx's Medication Instructions Recorded Budesonide-Formot 160-4.5 Mcg 2 puff INHALATION BID #1 inhaler 07/21/20 [Symbicort 160-4.5 Mcg Inhaler] Ipratropium-Albuterol Nebulize 3 ml INHALATION TID #120 neb 07/21/20 [Duoneb 0.5 mg-3 mg/3 ml Soln] Nicotine 14Mg/24Hr Patch [Habitrol] 1 patch TRANSDERM DAILY #14 patch 07/21/20 predniSONE 10 mg PO DAILY #30 tab 07/21/20 predniSONE [Deltasone] 20 mg PO BID #8 tab 11/05/20 Allergies Allergy/AdvReac Type Severity Reaction Status Date / Time No Known Allergies Allergy Verified 11/04/20 23:06 Review of Systems ROS Statement: Those systems with pertinent positive or pertinent negative responses have been documented in the HPI. ROS Other: All systems not noted in ROS Statement are negative. Constitutional: Denies: fever, chills Respiratory: Reports: cough, dyspnea, wheezes. Denies: hemoptysis, stridor Cardiovascular: Denies: chest pain, palpitations, edema Gastrointestinal: Denies: abdominal pain, vomiting, diarrhea, melena, hematochezia Genitourinary: Denies: dysuria, hematuria Musculoskeletal: Denies: back pain Skin: Denies: rash Neurological: Denies: headache, weakness Past Medical History Past Medical History: COPD, GERD/Reflux Additional Past Medical History / Comment(s): Current upper abdominal pain, affecting appetite. History of Any Multi-Drug Resistant Organisms: None Reported Past Surgical History: Orthopedic Surgery, Tonsillectomy Additional Past Surgical History / Comment(s): Right shoulder arthroscopy. Colonoscopy. Past Anesthesia/Blood Transfusion Reactions: No Reported Reaction Additional Past Anesthesia/Blood Transfusion Reaction / Comment(s): Pt has clausterphobia Past Psychological History: No Psychological Hx Reported Smoking Status: Former smoker Past Alcohol Use History: None Reported Past Drug Use History: None Reported - Past Family History Father Family Medical History: Cancer Mother Family Medical History: Cancer Additional Family Medical History / Comment(s): Mother in her 50s with some form of cancer. Pt/spouse do not recall type of cancer. General Exam Limitations: no limitations General appearance: alert, in no apparent distress Head exam: Present: atraumatic, normocephalic Eye exam: Present: normal appearance. Absent: scleral icterus, conjunctival injection ENT exam: Present: normal oropharynx Neck exam: Present: normal inspection Respiratory exam: Present: wheezes, decreased breath sounds, prolonged expiratory. Absent: respiratory distress, rales, rhonchi, stridor, accessory muscle use Cardiovascular Exam: Present: normal rhythm, tachycardia, normal heart sounds. Absent: systolic murmur, diastolic murmur, rubs, gallop GI/Abdominal exam: Present: soft. Absent: distended, tenderness, guarding, rebound, rigid, mass Extremities exam: Present: normal inspection, normal capillary refill. Absent: pedal edema, calf tenderness Back exam: Present: normal inspection. Absent: CVA tenderness (R), CVA tenderness (L) Neurological exam: Present: alert Skin exam: Present: warm, dry, intact, normal color. Absent: rash Course Vital Signs 11/04/20 11/05/20 11/05/20 23:04 01:06 01:26 Temperature 97.8 F Pulse Rate 120 H 106 H 105 H Respiratory 18 20 21 Rate Blood Pressure 108/78 101/60 O2 Sat by Pulse 94 L 94 L Oximetry 11/05/20 11/05/20 01:47 02:00 Temperature Pulse Rate 104 H 105 H Respiratory 20 20 Rate Blood Pressure 121/73 O2 Sat by Pulse 94 L Oximetry Medical Decision Making - Lab Data Result diagrams: 11/04/20 23:10 11/04/20 23:10 Lab Results 11/04/20 11/04/20 11/04/20 Range/Units 23:10 23:10 23:10 WBC 7.5 (3.8-10.6) k/uL RBC 5.01 (4.30-5.90) m/uL Hgb 15.6 (13.0-17.5) gm/dL Hct 47.3 (39.0-53.0) % MCV 94.4 (80.0-100.0) fL MCH 31.2 (25.0-35.0) pg MCHC 33.0 (31.0-37.0) g/dL RDW 13.7 (11.5-15.5) % Plt Count 243 (150-450) k/uL MPV 6.6 Neutrophils % 82 % Lymphocytes % 9 % Monocytes % 5 % Eosinophils % 1 % Basophils % 1 % Neutrophils # 6.2 (1.3-7.7) k/uL Lymphocytes # 0.7 L (1.0-4.8) k/uL Monocytes # 0.4 (0-1.0) k/uL Eosinophils # 0.1 (0-0.7) k/uL Basophils # 0.1 (0-0.2) k/uL PT 9.7 (9.0-12.0) sec INR 0.9 (<1.2) APTT 23.2 (22.0-30.0) sec Sodium 137 (137-145) mmol/L Potassium 4.6 (3.5-5.1) mmol/L Chloride 102 (98-107) mmol/L Carbon Dioxide 28 (22-30) mmol/L Anion Gap 7 mmol/L BUN 23 H (9-20) mg/dL Creatinine 0.86 (0.66-1.25) mg/dL Est GFR (CKD-EPI)AfAm >90 (>60 ml/min/1.73 sqM) Est GFR (CKD-EPI)NonAf 88 (>60 ml/min/1.73 sqM) Glucose 119 H (74-99) mg/dL Plasma Lactic Acid Luciano (0.7-2.0) mmol/L Calcium 9.9 (8.4-10.2) mg/dL Magnesium 1.9 (1.6-2.3) mg/dL Total Bilirubin 0.3 (0.2-1.3) mg/dL AST 31 (17-59) U/L ALT 17 (4-49) U/L Alkaline Phosphatase 68 (38-126) U/L Troponin I (0.000-0.034) ng/mL Total Protein 6.4 (6.3-8.2) g/dL Albumin 4.0 (3.5-5.0) g/dL 11/04/20 11/04/20 Range/Units 23:10 23:10 WBC (3.8-10.6) k/uL RBC (4.30-5.90) m/uL Hgb (13.0-17.5) gm/dL Hct (39.0-53.0) % MCV (80.0-100.0) fL MCH (25.0-35.0) pg MCHC (31.0-37.0) g/dL RDW (11.5-15.5) % Plt Count (150-450) k/uL MPV Neutrophils % % Lymphocytes % % Monocytes % % Eosinophils % % Basophils % % Neutrophils # (1.3-7.7) k/uL Lymphocytes # (1.0-4.8) k/uL Monocytes # (0-1.0) k/uL Eosinophils # (0-0.7) k/uL Basophils # (0-0.2) k/uL PT (9.0-12.0) sec INR (<1.2) APTT (22.0-30.0) sec Sodium (137-145) mmol/L Potassium (3.5-5.1) mmol/L Chloride (98-107) mmol/L Carbon Dioxide (22-30) mmol/L Anion Gap mmol/L BUN (9-20) mg/dL Creatinine (0.66-1.25) mg/dL Est GFR (CKD-EPI)AfAm (>60 ml/min/1.73 sqM) Est GFR (CKD-EPI)NonAf (>60 ml/min/1.73 sqM) Glucose (74-99) mg/dL Plasma Lactic Acid Luciano 1.1 (0.7-2.0) mmol/L Calcium (8.4-10.2) mg/dL Magnesium (1.6-2.3) mg/dL Total Bilirubin (0.2-1.3) mg/dL AST (17-59) U/L ALT (4-49) U/L Alkaline Phosphatase (38-126) U/L Troponin I <0.012 (0.000-0.034) ng/mL Total Protein (6.3-8.2) g/dL Albumin (3.5-5.0) g/dL - EKG Data -: EKG Interpreted by Ct EKG shows normal: sinus rhythm, axis (Rightward axis), intervals (Normal), QRS complexes (Normal) Rate: tachycardia (Rate 1:15 bpm) Interpretation: other (Pulmonary disease pattern) Disposition Clinical Impression: COPD exacerbation Disposition: HOME SELF-CARE Condition: Good Instructions (If sedation given, give patient instructions): COPD (Chronic Obstructive Pulmonary Disease) (DC) Prescriptions: predniSONE [Deltasone] 20 mg PO BID #8 tab Is patient prescribed a controlled substance at d/c from ED?: No Referrals: Sarah Rocha MD [Primary Care Provider] - 1-2 days
[2020-11-05 01:42] LABS: African American GFR (CKD) >90 (>60 ml/min/1.73 sqM); Anion Gap 7 mmol/L; Blood Urea Nitrogen 23 mg/dL (9-20); Carbon Dioxide 28 mmol/L (22-30); Chloride 102 mmol/L (98-107); Glucose 119 mg/dL (74-99); Potassium 4.6 mmol/L (3.5-5.1); Sodium 137 mmol/L (137-145)
[2020-11-05 01:43] LABS: ALT 17 U/L (4-49); AST 31 U/L (17-59); Alkaline Phosphatase 68 U/L (38-126); Calcium 9.9 mg/dL (8.4-10.2); Magnesium 1.9 mg/dL (1.6-2.3); Non-African American GFR(CKD) 88 (>60 ml/min/1.73 sqM); Total Bilirubin 0.3 mg/dL (0.2-1.3); Total Protein 6.4 g/dL (6.3-8.2)
[2020-11-05 04:22] VITALS: BP 107/71; PULSE 88; RESP 20
== END 2020-11-05 04:22 | disposition home or self-care (01) ==
LOC: EC 22:40
DX: J44.1 Chronic obstructive pulmonary disease with (acute) exacerbation (principal); K21.9 Gastro-esophageal reflux disease without esophagitis; Z87.891 Personal history of nicotine dependence; Z79.52 Long term (current) use of systemic steroids; Z79.51 Long term (current) use of inhaled steroids; Z79.899 Other long term (current) drug therapy
CPT/HCPCS: 36415; 94640 ×2; 93005; 83880; 80053; 83605; 83735; 84484; 85025; 85610; 85730; 71046; 99284; J7512

== ENCOUNTER 2020-11-12 10:13 | Day surgery (SDC) | payer MEDICARE, OTHER ==
[2020-11-11 10:14] VITALS: BMI 17.6
[2020-11-12] MEDS ORDERED: LACTATED RINGERS 1,000 ML IV ONE (10:54)
[2020-11-12 11:05] VITALS: TEMP 98.2
[2020-11-12 11:16] LABS: Glucose,Whole Blood 90 mg/dL (75-99)
[2020-11-12] MEDS ORDERED: LIDOCAINE 1% INJ 10MG/ML (20 ML MDV) ONE (11:59)
[2020-11-12] MEDS ORDERED: PROPOFOL 10 MG/ML 20 ML VIAL IV ONE (11:59)
--- NOTE | 2020-11-12 12:14 | P.PCN ---
Date of Procedure: 11/12/20 Procedure(s) Performed: BRIEF HISTORY: Patient is a 70-year-old, pleasant, white male scheduled for an upper endoscopy as a part of evaluation of epigastric pain for the last 1 year duration was treated with progressive weight loss of 20 pounds.. PROCEDURE PERFORMED: Esophagogastroduodenoscopy with biopsy. PREOPERATIVE DIAGNOSIS: Chronic epigastric pain and progressive weight loss. IV sedation per anesthesia. PROCEDURE: After informed consent was obtained, the patient was brought into the endoscopy unit. IV sedation was administered by Anesthesia under continuous monitoring. Initially the Olympus GIF-140 video endoscope was inserted into the mouth. Esophagus intubated without any difficulty. It was gradually advanced into the stomach and duodenum and carefully examined. The bulb and the second part of the duodenum appeared normal. Biopsies were done from the duodenum to rule out celiac disease. The scope at this time was withdrawn to the stomach, adequately insufflated with air, and upon careful examination, mucosa of the antrum, had mild gastritis and biopsies were done from this area. In the proximal body the stomach there are scattered erosions identified. The rest of the body, cardia and the fundus appeared normal. The scope was then withdrawn into the esophagus. The GE junction was located at 39 cm from the incisors. Small sliding type hiatal hernia noted. The esophagus appeared normal. There was mild erythema of the GE junction consistent with LA grade a reflux e sophagitis. There were no erosions or ulcerations seen and the patient tolerated the procedure well. IMPRESSION: 1. Antral erosive gastritis. 2. Small hiatal hernia and LA grade a reflux esophagitis. RECOMMENDATIONS: The findings of this examination were discussed with the patient as well as his family. He was advised to follow with the biopsy results. He will continue with omeprazole 20 mg daily and follow antireflux measures..
[2020-11-12 12:36] VITALS: BP 101/61; PULSE 67; RESP 16
== END 2020-11-12 13:09 | disposition home or self-care (01) ==
LOC: ORWHC2ENDO 10:13
PROVIDERS: ATTEND Internal Medicine Gastroenterology
DX: K29.70 Gastritis, unspecified, without bleeding (principal); K21.00 Gastro-esophageal reflux disease with esophagitis, without bleeding; K44.9 Diaphragmatic hernia without obstruction or gangrene; R63.4 Abnormal weight loss; J44.9 Chronic obstructive pulmonary disease, unspecified; Z87.891 Personal history of nicotine dependence; Z79.899 Other long term (current) drug therapy
CPT/HCPCS: 88305; 43239; J2001; J2704

== ENCOUNTER → 2020-12-10 | Outpatient (CLI) | payer MEDICARE, OTHER ==
[2020-12-10 17:38] LABS: African American GFR (CKD) >90 (>60 ml/min/1.73 sqM); Blood Urea Nitrogen 19 mg/dL (9-20); Non-African American GFR(CKD) 88 (>60 ml/min/1.73 sqM)
--- NOTE | 2020-12-11 07:53 | CT ---
EXAMINATION TYPE: CT abdomen pelvis wo/w con DATE OF EXAM: 12/10/2020 COMPARISON: Most recent CT May 13, 2020 and older studies HISTORY: epigastric pain x1 year, gastroesophageal reflux. CT DLP: 520.3 mGycm, Automated Exposure Control for Dose Reduction was Utilized. CONTRAST: CT scan of the abdomen and pelvis is performed with oral and without and with IV Contrast, patient in jected with 100 mL of Isovue 300. FINDINGS: LUNG BASES: Emphysematous change in the lung bases is redemonstrated. LIVER/GB: Occasional punctate hypodense lesions scattered throughout the liver is stable presumed sindy ign. PANCREAS: No significant abnormality is seen. SPLEEN: Calcifications throughout the spleen consistent with product old granulomatous disease are re demonstrated. ADRENALS: No significant abnormality is seen. KIDNEYS: Noncontrast images show no renal calculi bilaterally. Postcontrast images show symmetric cor tical medullary uptake and excretion without hydronephrosis seen bilaterally. BOWEL: Oral contrast does not reach colonic level making evaluation of distal bowel slightly suboptim al. Mild to moderately contrast distended stomach. Normal-appearing appendix. Scattered colonic diver ticula with prominent diverticulosis involving the sigmoid colon. No CT evidence for acute diverticul itis. No fixed hiatal hernia. PROSTATE/SEMINAL VESICLES: Enlarged prostate consistent with BPH. LYMPH NODES: No greater than 1cm abdominal or pelvic lymph nodes are appreciated. OSSEOUS STRUCTURES: Underlying dextroconvex scoliosis centered lower lumbar spine. Spine is straighte dane on sagittal images. Moderate to advanced disc space narrowing throughout the lumbar spine with re lative sparing of the L3-L4 level. Facet arthropathy lower lumbar levels.. OTHER: Moderate to severe plaque of the infrarenal abdominal aorta extends into iliac branch vessels. Small fat-containing left inguinal hernia. IMPRESSION: No new or acute findings are evident.
== END | disposition home or self-care (01) ==
LOC: RADCTMAIN 16:59
PROVIDERS: ATTEND Family Medicine
DX: R10.13 Epigastric pain (principal)
CPT/HCPCS: 82565; 84520; 74178; 36415; Q9967

== ENCOUNTER → 2020-12-18 | Outpatient (CLI) | payer MEDICARE | END | disposition home or self-care (01) | LOC: LABWHC1 08:50 | PROVIDERS: ATTEND Urology | DX: C61 Malignant neoplasm of prostate (principal) | CPT/HCPCS: 36415; 84153 ==

== ENCOUNTER 2020-12-30 21:59 | Observation (INO) | payer MEDICARE ==
[2020-12-30] MEDS ORDERED: predniSONE 20 MG TAB PO STA (22:29)
[2020-12-30] MEDS ORDERED: IPRATROPIUM-ALBUTEROL 3 ML NEB INHALATION STA (22:29)
--- NOTE | 2020-12-30 22:38 | ED ---
SOB HPI - General Chief Complaint: Shortness of Breath Stated Complaint: SOB Time Seen by Provider: 12/30/20 22:13 Source: patient Mode of arrival: wheelchair Limitations: no limitations - History of Present Illness MD Complaint: shortness of breath, cough Onset/Timin -: hour(s) Severity: moderate Severity scale (1-10): 0 Improves With: nothing Worsens With: nothing Known History Of: COPD Associated Symptoms: cough Treatments Prior to Arrival: bronchodilator - Related Data Home Oxygen Therapy: Yes Home Oxygen Amount: 3 Liters Home Medications Medication Instructions Recorded Confirmed Albuterol Inhaler [Ventolin Hfa 2 puff INHALATION RT-QID PRN 01/22/20 12/08/20 Inhaler] Multivitamins, Thera [Multivitamin 1 tab PO DAILY 01/22/20 12/08/20 (formulary)] Previous Rx's Medication Instructions Recorded Budesonide-Formot 160-4.5 Mcg 2 puff INHALATION BID #1 inhaler 07/21/20 [Symbicort 160-4.5 Mcg Inhaler] Ipratropium-Albuterol Nebulize 3 ml INHALATION TID #120 neb 07/21/20 [Duoneb 0.5 mg-3 mg/3 ml Soln] Allergies Allergy/AdvReac Type Severity Reaction Status Date / Time No Known Allergies Allergy Verified 12/30/20 22:00 Review of Systems ROS Statement: Those systems with pertinent positive or pertinent negative responses have been documented in the HPI. ROS Other: All systems not noted in ROS Statement are negative. Constitutional: Denies: fever, chills Respiratory: Reports: cough, dyspnea, wheezes. Denies: hemoptysis Cardiovascular: Denies: chest pain, palpitations, edema, syncope Gastrointestinal: Denies: abdominal pain, nausea, vomiting, diarrhea Genitourinary: Denies: dysuria, frequency Skin: Denies: rash, lesions Neurological: Denies: headache, weakness, numbness Past Medical History Past Medical History: COPD, GERD/Reflux Additional Past Medical History / Comment(s): Current upper abdominal pain, affecting appetite. History of Any Multi-Drug Resistant Organisms: None Reported Past Surgical History: Orthopedic Surgery, Tonsillectomy Additional Past Surgical History / Comment(s): Right shoulder arthroscopy. Colonoscopy. EGD Past Anesthesia/Blood Transfusion Reactions: No Reported Reaction Additional Past Anesthesia/Blood Transfusion Reaction / Comment(s): Pt has CLAUSTROPHOBIA Past Psychological History: No Psychological Hx Reported Smoking Status: Former smoker Past Alcohol Use History: None Reported Past Drug Use History: None Reported - Past Family History Father Family Medical History: Cancer Mother Family Medical History: Cancer Additional Family Medical History / Comment(s): Mother in her 50s with some form of cancer. Pt/spouse do not recall type of cancer. General Exam Limitations: no limitations General appearance: alert, in no apparent distress Head exam: Present: atraumatic, normocephalic Eye exam: Present: normal appearance. Absent: scleral icterus, conjunctival injection ENT exam: Present: normal oropharynx Neck exam: Present: normal inspection Respiratory exam: Present: wheezes, rhonchi. Absent: respiratory distress, rales, stridor, chest wall tenderness, accessory muscle use, decreased breath sounds Cardiovascular Exam: Present: normal rhythm, tachycardia, normal heart sounds. Absent: systolic murmur, diastolic murmur, rubs, gallop GI/Abdominal exam: Present: soft. Absent: distended, tenderness, guarding, rebound, rigid, mass Extremities exam: Present: normal inspection, normal capillary refill. Absent: pedal edema, calf tenderness Back exam: Present: normal inspection. Absent: CVA tenderness (R), CVA tenderness (L) Neurological exam: Present: alert Skin exam: Present: warm, dry, intact, normal color. Absent: rash Course Vital Signs 12/30/20 22:00 Temperature 98.0 F Pulse Rate 119 H Respiratory 22 Rate Blood Pressure 154/81 O2 Sat by Pulse 91 L Oximetry Medical Decision Making - EKG Data -: EKG Interpreted by Me EKG shows normal: sinus rhythm, axis (Normal), intervals (Normal), QRS complexes (Possible old anterior infarct.), ST-T waves (Normal) Rate: tachycardia (ReviewReview) Disposition Referrals: Sarah Rocha MD [Primary Care Provider] - 1-2 days
--- NOTE | 2020-12-30 22:42 | XR ---
EXAMINATION TYPE: XR chest 2V DATE OF EXAM: 12/30/2020 COMPARISON: 11/04/2020 HISTORY: Short of breath TECHNIQUE: FINDINGS: Heart and mediastinum are normal. There is pulmonary emphysema. There is flattening the gonzalo phragm. There are no hilar masses. There are chest leads. Bony thorax is intact. IMPRESSION: No active cardiopulmonary disease. Normal heart. No change.
[2020-12-30 23:28] LABS: Basophils # (A) 0.1 k/uL (0-0.2); Basophils % (A) 1 %; Eosinophils # (A) 0.1 k/uL (0-0.7); Eosinophils % (A) 1 %; HCT 42.6 % (39.0-53.0); HGB 14.7 gm/dL (13.0-17.5); Lymphocytes % (A) 11 %; MCH 31.2 pg (25.0-35.0); MCHC 34.5 g/dL (31.0-37.0); MCV 90.7 fL (80.0-100.0); Mean Platelet Volume 7.1; Monocytes # (A) 0.5 k/uL (0-1.0); Monocytes % (A) 5 %; Neutrophils # (A) 7.1 k/uL (1.3-7.7); Neutrophils % (A) 80 %; Platelet Count 296 k/uL (150-450); RDW 13.5 % (11.5-15.5); WBC 8.9 k/uL (3.8-10.6)
[2020-12-30] MEDS ORDERED: IBUPROFEN 600 MG TAB PO STA (23:34)
[2020-12-30 23:47] LABS: INR 0.9 (<1.2); Partial Thromboplastin Time 22.7 sec (22.0-30.0); Prothrombin Time 9.7 sec (9.0-12.0)
[2020-12-31 01:04] LABS: ALT 15 U/L (4-49); African American GFR (CKD) >90 (>60 ml/min/1.73 sqM); Albumin 3.6 g/dL (3.5-5.0); Anion Gap 6 mmol/L; Blood Urea Nitrogen 23 mg/dL (9-20); Calcium 9.4 mg/dL (8.4-10.2); Carbon Dioxide 29 mmol/L (22-30); Chloride 101 mmol/L (98-107); Glucose 116 mg/dL (74-99); Non-African American GFR(CKD) >90 (>60 ml/min/1.73 sqM); Sodium 136 mmol/L (137-145); Total Bilirubin 0.6 mg/dL (0.2-1.3); Total Protein 6.1 g/dL (6.3-8.2)
[2020-12-31 01:15] LABS: AST 34 U/L (17-59); Alkaline Phosphatase 49 U/L (38-126); Potassium 4.6 mmol/L (3.5-5.1)
--- NOTE | 2020-12-31 02:35 | CT ---
EXAMINATION TYPE: CT chest angio for PE DATE OF EXAM: 12/31/2020 COMPARISON: 05/13/2020 HISTORY: elevated d-dimer CT DLP: 216.3 mGycm Automated exposure control for dose reduction was used. CONTRAST: Performed with IV Contrast, patient injected with 65 mL of Isovue 370. Images obtained from the thoracic inlet to the diaphragm with IV contrast. There are 3-D post process ed images. There is bullous pulmonary emphysema. Heart size is normal. There is no pericardial effusion. There a re no hilar masses. There is no mediastinal adenopathy. Lungs are clear of consolidation. There is some minimal reticular interstitial density in the left lo wer lobe. There is no suspicious bony mass. There is minimal reticular density right posterior lung b ase. There is no pleural effusion. There is no evidence of filling defect in the pulmonary arteries. There are calcified splenic granulo mcdonald. Thoracic vertebra have normal alignment. Posterior elements are intact. Sternum is intact. IMPRESSION: No evidence of pulmonary embolism. Bullous pulmonary emphysema. Mild fibrotic changes and subsegmenta l atelectasis in both lungs. No significant change compared to old exam. No suspicious pulmonary mass.
[2020-12-31] MEDS ORDERED: IPRATROPIUM-ALBUTEROL 3 ML NEB INHALATION PRN (04:43)
[2020-12-31] MEDS ORDERED: NALOXONE 0.4 MG/ML 1 ML VIAL IV PRN (04:44)
--- NOTE | 2020-12-31 05:14 | P.HPIM ---
History of Present Illness H&P Date: 12/31/20 Chief Complaint: SOB 70 year old male with COPD on hoe oxygen 3 L NC patient comes in due to sudden onset worsening shortness of breath , not improving with home oxygen and inhalers. he went fishing today , and reports, he could not take his oxygen with him as he does not own a portable tank . he started having trouble breathing , wheezing and coughing , before today, he denies any coughing or trouble breathing. he currently denies any hemoptysis, fever, chills, sore throat, body aches, sick contacts. he denies any recent hospitalization or travel. in the ED, he was found having trouble breathing and wheezing, improved little after couple breathing treatments , however, was still having difficulty breathing. COIVD test negative , D dimer elevated , CTA showed no acute PE. Review of Systems Pertinent positives as noted in HPI. All other systems were reviewed and are negative Past Medical History Past Medical History: COPD, GERD/Reflux History of Any Multi-Drug Resistant Organisms: None Reported Past Surgical History: Orthopedic Surgery, Tonsillectomy Additional Past Surgical History / Comment(s): Right shoulder arthroscopy. Colonoscopy. EGD Past Anesthesia/Blood Transfusion Reactions: No Reported Reaction Additional Past Anesthesia/Blood Transfusion Reaction / Comment(s): Pt has CLAUSTROPHOBIA Past Psychological History: No Psychological Hx Reported Smoking Status: Former smoker Past Alcohol Use History: None Reported Past Drug Use History: None Reported - Past Family History Father Family Medical History: Cancer Mother Family Medical History: Cancer Additional Family Medical History / Comment(s): Mother in her 50s with some form of cancer. Pt/spouse do not recall type of cancer. Medications and Allergies Home Medications Medication Instructions Recorded Confirmed Type Albuterol Inhaler [Ventolin Hfa 2 puff INHALATION RT-QID PRN 01/22/20 12/08/20 History Inhaler] Multivitamins, Thera [Multivitamin 1 tab PO DAILY 01/22/20 12/08/20 History (formulary)] Budesonide-Formot 160-4.5 Mcg 2 puff INHALATION BID #1 inhaler 07/21/20 12/08/20 Rx [Symbicort 160-4.5 Mcg Inhaler] Ipratropium-Albuterol Nebulize 3 ml INHALATION TID #120 neb 07/21/20 12/08/20 Rx [Duoneb 0.5 mg-3 mg/3 ml Soln] Allergies Allergy/AdvReac Type Severity Reaction Status Date / Time No Known Allergies Allergy Verified 12/30/20 22:00 Physical Exam Vitals: Vital Signs Temp Pulse Resp BP Pulse Ox 12/31/20 03:00 97.9 F 86 16 105/63 97 12/31/20 01:30 82 16 105/66 98 12/30/20 23:49 106 H 18 101/64 95 12/30/20 23:10 108 H 12/30/20 22:58 102 H 12/30/20 22:00 98.0 F 119 H 22 154/81 91 L Intake and Output 12/30/20 12/30/20 12/31/20 14:59 22:59 06:59 Other: Weight 48.081 kg Constitutional: No acute distress, conversant, pleasant Eyes: Anicteric sclerae, moist conjunctiva, Pupils equal round reactive to light ENMT: NC/AT Oropharynx clear, no erythema, or exudates Neck: Supple, FROM, no masses, or JVD No carotid bruits No thyromegaly Lungs: diminished breath sounds , no wheezing Clear to percussion Normal respiratory effort, no accessory muscle use Cardiovascular: Heart regular in rate and rhythm, No murmurs, gallops, or rubs No peripheral edema Abdominal: Soft Nontender, no guarding, rebound or rigidity Abdomen moving with respiration Normoactive bowel sounds No hepatomegaly, No splenomegaly No palpable mass No abdominal wall hernia noted Skin: Normal temperature, tone, texture, turgor No induration No subcutaneous nodules No rash, lesions No ulcers Extremities: No digital cyanosis No clubbing Pedal pulses intact and symmetrical Radial pulses intact and symmetrical No calf tenderness Psychiatric: Alert and oriented to person, place and time Appropriate affect fair judgement Neuro Muscles Strength 4/5 in all 4 extremities Sensation to light touch grossly present throughout Cranial nerves II-XII grossly intact No focal sensory deficits Lymphatics: no palpable cervical or supraclavicular , or inguinal lymph nodes Results CBC & Chem 7: 12/30/20 22:44 12/31/20 00:15 Labs: Abnormal Lab Results - Last 24 Hours (Table) 12/30/20 12/31/20 Range/Units 22:44 00:15 D-Dimer 0.87 H (<0.60) mg/L FEU Sodium 136 L (137-145) mmol/L BUN 23 H (9-20) mg/dL Glucose 116 H (74-99) mg/dL Total Protein 6.1 L (6.3-8.2) g/dL Assessment and Plan Assessment: acute COPD exacerbation acute on chronic hypoxic respiratory failure supplemental oxygen covid negative duonebs PRN resume home inhalers systemic steroids psych social worker to 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 patient denies smoking CTA no acute PE full code anticipated length of stay > 2 midnights anticipated discharge home DVT PPX mechanical
[2020-12-31] MEDS ORDERED: SYMBICORT 160-4.5 MCG INHALER INHALATION SCH (08:00)
[2020-12-31] MEDS: methylPREDNISolone SOD SUCCI 125 MG/2 ML VIAL IV SCH ×3 (08:46→18:13)
[2020-12-31] MEDS: AZITHROMYCIN 500 MG TAB PO SCH (08:46)
--- NOTE | 2020-12-31 09:45 | P.CNPUL ---
History of Present Illness Consult date: 12/31/20 Requesting physician: Linette Obrien Reason for consult: dyspnea, COPD Chief complaint: Shortness of breath, cough, congestion History of present illness: This is a very pleasant 70-year-old gentleman who has a history of chronic obstructive pulmonary disease, chronic tobacco dependence of greater than 30 years. He states he did quit approximate 6 months ago. He is oxygen dependent at home on 3 L/m per nasal cannula. He was seen here last in June 2020. He follows with Dr. Pérez in our office. He's been maintained on Symbicort, albuterol and DuoNeb inhalations. He presented to the emergency room last evening with a several-day history of increasing shortness of breath, cough and chest tightness and wheezing. His cough is nonproductive. Chest x-ray showed no active cardiopulmonary disease. CT angiogram ruled out pulmonary embolism. 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 Mild fibrotic changes and subsegmental atelectasis bilaterally. No significant change compared to previous. White count 8.9. Hemoglobin 14.7. D-dimer 0.87. Sodium 136. Potassium 4.6. Bicarb 29. Creatinine 0.75. AST 34. ALT 15. Troponin 0.012. ProBNP 164. Reeder virus not detected. He's been initiated on DuoNeb inhalations, Symbicort, IV Solu-Medrol. Empiric antibiotics in the form of azithromycin. He is seen today in consultation in the emergency room. He is currently sitting up on a stretcher. Awake and alert in no acute distress. States he is breathing easier today compared to yesterday. No fever or chills. No hemoptysis. Currently on 3 L nasal cannula with O2 saturation 96%. Review of Systems REVIEW OF SYSTEMS: CONSTITUTIONAL: Denies any recent significant weight loss or weight gain. EYES: Denies change in vision. EARS, NOSE, MOUTH, THROAT: Denies headaches, denies sore throat. CARDIOVASCULAR: Denies chest pain, palpitations or syncopal episodes. RESPIRATORY: Positive for shortness of breath, cough, congestion no hemoptysis. GASTROINTESTINAL: Denies change in appetite, denies abdominal pain GENITOURINARY: Denies hematuria, denies infections. MUSKULOSKELETAL: Denies pain, denies swelling. INTEGUMENTARY: Denies rash, denies eczema. NEUROLOGICAL: Denies recent memory loss, no recent seizure activity. PSYCHIATRIC: Denies anxiety, denies depression. HEMATOLOGIC/LYMPHATIC: Denies anemia, denies enlarged lymph nodes. Past Medical History Past Medical History: COPD, GERD/Reflux Additional Past Medical History / Comment(s): Current upper abdominal pain, affecting appetite. History of Any Multi-Drug Resistant Organisms: None Reported Past Surgical History: Orthopedic Surgery, Tonsillectomy Additional Past Surgical History / Comment(s): Right shoulder arthroscopy. Colonoscopy. EGD Past Anesthesia/Blood Transfusion Reactions: No Reported Reaction Additional Past Anesthesia/Blood Transfusion Reaction / Comment(s): Pt has WALDO STROPHOBIA Past Psychological History: No Psychological Hx Reported Smoking Status: Former smoker Past Alcohol Use History: None Reported Past Drug Use History: None Reported - Past Family History Father Family Medical History: Cancer Mother Family Medical History: Cancer Additional Family Medical History / Comment(s): Mother in her 50s with some form of cancer. Pt/spouse do not recall type of cancer. Medications and Allergies Home Medications Medication Instructions Recorded Confirmed Type Albuterol Inhaler [Ventolin Hfa 2 puff INHALATION RT-QID PRN 01/22/20 12/31/20 History Inhaler] Multivitamins, Thera [Multivitamin 1 tab PO DAILY 01/22/20 12/31/20 History (formulary)] Albuterol Inhaler [Ventolin Hfa 1 puff INHALATION RT-QID PRN 12/31/20 12/31/20 History Inhaler] Budesonide/Formoterol Fumarate 2 puff INHALATION RT-BID 12/31/20 12/31/20 History [Symbicort 160-4.5 Mcg Inhaler] Allergies Allergy/AdvReac Type Severity Reaction Status Date / Time No Known Allergies Allergy Verified 12/31/20 07:30 Physical Exam Vitals: Vital Signs Temp Pulse Resp BP Pulse Ox 12/31/20 08:42 81 18 90/63 96 12/31/20 07:15 102 H 12/31/20 07:05 112 H 12/31/20 07:02 87 18 95/64 98 12/31/20 04:52 70 16 92/58 98 12/31/20 03:00 97.9 F 86 16 105/63 97 12/31/20 01:30 82 16 105/66 98 12/30/20 23:49 106 H 18 101/64 95 12/30/20 23:10 108 H 12/30/20 22:58 102 H 12/30/20 22:00 98.0 F 119 H 22 154/81 91 L Intake and Output 12/30/20 12/31/20 12/31/20 22:59 06:59 14:59 Other: Weight 48.081 kg GENERAL EXAM: Alert, pleasant 70-year-old gentleman, frail, cachectic, on 3 L nasal cannula, comfortable in no apparent distress. HEAD: Normocephalic. EYES: Normal reaction of pupils, equal size. NOSE: Clear with pink turbinates. THROAT: No erythema or exudates. NECK: No masses, no JVD. CHEST: No chest wall deformity. LUNGS: Equal air entry with bilateral end expiratory wheeze, diminished. CVS: S1 and S2 normal with no audible murmur, regular rhythm. ABDOMEN: No hepatosplenomegaly, normal bowel sounds, no guarding or rigidity. SPINE: No scoliosis or deformity SKIN: No rashes CENTRAL NERVOUS SYSTEM: No focal deficits, tone is normal in all 4 extremities. EXTREMITIES: There is no peripheral edema. No clubbing, no cyanosis. Peripheral pulses are intact. Results - Laboratory Findings CBC and BMP: 12/30/20 22:44 12/31/20 00:15 PT/INR, D-dimer PT 9.7 sec (9.0-12.0) 12/30/20 22:44 INR 0.9 (<1.2) 12/30/20 22:44 D-Dimer 0.87 mg/L FEU (<0.60) H 12/30/20 22:44 Abnormal lab findings: Abnormal Labs 12/30/20 12/31/20 22:44 00:15 D-Dimer 0.87 H Sodium 136 L BUN 23 H Glucose 116 H Total Protein 6.1 L - Diagnostic Findings Chest x-ray: image reviewed CT scan - chest: image reviewed Assessment and Plan Assessment: 1 Acute on chronic hypoxic respiratory failure secondary to an acute exacerbation of chronic obstructive pulmonary disease 2 Chronic tobacco dependence of greater than 40 years however quit 6 months ago 3 History of gastroesophageal reflux disease Plan: The patient was seen and evaluated by Dr. Bravo Chest x-ray, CAT scans and labs reviewed Continue IV Solu-Medrol, Pulmicort and Perforomist inhalations, DuoNeb inhalations Empiric antibiotics in the form of azithromycin Titrate the FiO2 as tolerated Encouraged regarding continued ongoing smoking cessation We will continue to follow and make further recommendations based on his clinical status I, the cosigning physician, performed a history & physical examination of the patient. Lungs sounds bilateral end expiratory wheeze, diminished. Maintaining good O2 saturations in the 90s on 3 L/m per nasal cannula. I discussed the assessment and plan of care with my nurse practitioner, Yulissa Goodson. I attest to the above consultation as dictated by her. Time with Patient: Greater than 30
[2020-12-31] MEDS: IPRATROPIUM-ALBUTEROL 3 ML NEB INHALATION SCH ×3 (10:40→19:05)
--- NOTE | 2020-12-31 13:54 | P.PN ---
Progress Note - Text Progress Note Date: 12/31/20 I saw and evaluated the patient independently today and agree with the documented assessment and plan by my colleague early this morning. Patient is significantly improved since admission. Nebulizers, steroids, azithromycin, oxygen when necessary; patient will resume home oxygen on discharge which will likely be tomorrow.
[2020-12-31] MEDS: FORMOTEROL FUMARATE 20 MCG/2 ML NEBU INHALATION SCH (19:05)
[2020-12-31] MEDS: BUDESONIDE 1 MG/2 ML NEBU INHALATION SCH (19:05)
[2021-01-01] MEDS: methylPREDNISolone SOD SUCCI 125 MG/2 ML VIAL IV SCH ×4 (00:35→18:27)
[2021-01-01] MEDS: FORMOTEROL FUMARATE 20 MCG/2 ML NEBU INHALATION SCH ×2 (07:27→19:40)
[2021-01-01] MEDS: BUDESONIDE 1 MG/2 ML NEBU INHALATION SCH ×2 (07:27→19:40)
[2021-01-01] MEDS: IPRATROPIUM-ALBUTEROL 3 ML NEB INHALATION SCH ×4 (07:27→19:40)
[2021-01-01] MEDS: AZITHROMYCIN 500 MG TAB PO SCH (08:19)
--- NOTE | 2021-01-01 10:53 | P.PN ---
Subjective Progress Note Date: 01/01/21 Principal diagnosis: Shortness of breath. This is a very pleasant 70-year-old gentleman who has a history of chronic obstructive pulmonary disease, chronic tobacco dependence of greater than 30 years. He states he did quit approximate 6 months ago. He is oxygen dependent at home on 3 L/m per nasal cannula. He was seen here last in June 2020. He follows with Dr. Pérez in our office. He's been maintained on Symbicort, albuterol and DuoNeb inhalations. He presented to the emergency room last evening with a several-day history of increasing shortness of breath, cough and chest tightness and wheezing. His cough is nonproductive. Chest x-ray showed no active cardiopulmonary disease. CT angiogram ruled out pulmonary embolism. 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 Mild fibrotic changes and subsegmental atelectasis bilaterally. No significant change compared to previous. White count 8.9. Hemoglobin 14.7. D-dimer 0.87. Sodium 136. Potassium 4.6. Bicarb 29. Creatinine 0.75. AST 34. ALT 15. Troponin 0.012. ProBNP 164. Reeder virus not detected. He's been initiated on DuoNeb inhalations, Symbicort, IV Solu-Medrol. Empiric antibiotics in the form of azithromycin. He is seen today in consultation in the emergency room. He is currently sitting up on a stretcher. Awake and alert in no acute distress. States he is breathing easier today compared to yesterday. No fever or chills. No hemoptysis. Currently on 3 L nasal cannula with O2 saturation 96%. Progress note dated 01/01/2021. This is a 70-year-old gentleman who was seen by Dr. Goodson yesterday. The patient has a history of underlying severe COPD and chronic hypoxemic re spiratory failure. He sees one of my partners in the office on a regular basis for his COPD. He was admitted with a diagnosis of COPD exacerbation. He is doing much better today. Patient's on 3 L nasal cannula. He is not on any IV fluids at this time. His complaints include primarily cough, shortness of breath, chest tightness, and wheezing. All of those symptoms are improved, but is not back to baseline as yet. She denies any fever or chills. He denies any chest pain or chest discomfort. No new labs today. Chest x-ray showed no acute cardiopulmonary disease. CT angiogram was negative for pulmonary embolism. Objective - Vital Signs Vital signs: Vital Signs Temp 98.1 F 01/01/21 07:00 Pulse 78 01/01/21 07:50 Resp 16 01/01/21 07:00 BP 101/60 01/01/21 07:00 Pulse Ox 96 01/01/21 07:00 Intake & Output 12/31/20 01/01/21 01/01/21 18:59 06:59 18:59 Output Total 180 Balance -180 Weight 48.081 kg Output: Urine 180 Other: Voiding Method Urinal Urinal # Voids 1 - Exam No acute distress, oriented 3. The patient is mildly tachypneic. No use of accessory muscles or conversational dyspnea. HEENT examination is grossly unremarkable. Neck supple. Full range of motion. No adenopathy thyromegaly or neck vein distention. Cardiovascular examination reveals regular rhythm rate. S1-S2 normal. No S3 or S4. No discernible murmur noted. Heart rate 78 bpm. Lungs reveal severely diminished breath sounds bilaterally. Mild expiratory rhonchi and wheezes are noted. There are no crackles. Breath sounds are equal bilaterally. Slight prolongation on forced maneuver. Saturations are okay on 3 L. Abdomen soft bowel sounds are heard. No masses or tenderness. Extremities are intact. No cyanosis clubbing or edema. Skin is without rash or lesion. Neurologic examination is brief but nonfocal. - Labs CBC & Chem 7: 12/30/20 22:44 12/31/20 00:15 Assessment and Plan Assessment: 1 Acute on chronic hypoxic respiratory failure secondary to an acute exacerbation of chronic obstructive pulmonary disease. 2 Chronic tobacco dependence of greater than 40 years however quit 6 months ago. 3 History of gastroesophageal reflux disease. Plan: Plan dated 01/01/2021. Currently, the patient's on oral Zithromax, Pulmicort 1 mg, formoterol, Duo nebs, and Solu-Medrol. This is an appropriate regimen for this patient. Clinically feeling better. Not quite ready for discharge. Possibly by tomorrow. The patient states that his breathing, chest tightness, wheezing, and cough are much improved. He denies any new complaints. Additional recommendations and suggestions are forthcoming. Prognosis is guarded. Time with Patient: Less than 30
[2021-01-01 12:47] VITALS: BMI 17.6
--- NOTE | 2021-01-01 17:05 | P.PN ---
Subjective Progress Note Date: 01/01/21 Pt still has extremely diminished air exchange. He had an episode of syncope while in the bathroom today. Orthostatics were negative. Moving air poorly, no clear audible wheezing on auscultation. Objective - Vital Signs Vital signs: Vital Signs Temp 97.6 F 01/01/21 14:55 Pulse 84 01/01/21 15:40 Resp 16 01/01/21 14:55 BP 105/67 01/01/21 14:55 Pulse Ox 97 01/01/21 14:55 Intake & Output 12/31/20 01/01/21 01/01/21 18:59 06:59 18:59 Output Total 180 800 Balance -180 -800 Weight 48.081 kg 48.081 kg Output: Urine 180 800 Other: Voiding Method Urinal Urinal # Voids 1 1 # Bowel Movements 2 - Exam Gen: awake, alert HEENT: normocephalic, atraumatic, good hearing acuity, moist mucous membranes Resp: Patient does have mild accessory muscle use, extremely diminished air exchange with lots of space in the lung ramirez, no audible wheezing CVS: good distal perfusion x 4, tachycardic, regular GI: soft, NTTP, ND : no SPT, no CVAT, cardenas catheter not present MSK: no pitting edema, no clubbing Neuro: non-focal, moving all extremities Psych: cooperative, euthymic mood - Labs CBC & Chem 7: 12/30/20 22:44 12/31/20 00:15 Assessment and Plan Assessment: acute COPD exacerbation acute on chronic hypoxic respiratory failure supplemental oxygen covid negative duonebs PRN resume home inhalers systemic steroids 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 patient denies smoking CTA no acute PE full code anticipated length of stay > 2 midnights anticipated discharge home DVT PPX mechanical
[2021-01-02] MEDS: methylPREDNISolone SOD SUCCI 125 MG/2 ML VIAL IV SCH ×3 (00:27→12:02)
[2021-01-02] MEDS: IPRATROPIUM-ALBUTEROL 3 ML NEB INHALATION SCH ×4 (07:07→19:58)
[2021-01-02] MEDS: FORMOTEROL FUMARATE 20 MCG/2 ML NEBU INHALATION SCH (07:07)
[2021-01-02] MEDS: BUDESONIDE 1 MG/2 ML NEBU INHALATION SCH (07:07)
[2021-01-02] MEDS: AZITHROMYCIN 500 MG TAB PO SCH (08:36)
[2021-01-02] MEDS ORDERED: SODIUM CHLORIDE 0.9% 500 ML 500 ML IV ONE (12:08)
--- NOTE | 2021-01-02 14:20 | P.PN ---
Subjective Progress Note Date: 01/02/21 Principal diagnosis: Shortness of breath. This is a very pleasant 70-year-old gentleman who has a history of chronic obstructive pulmonary disease, chronic tobacco dependence of greater than 30 years. He states he did quit approximate 6 months ago. He is oxygen dependent at home on 3 L/m per nasal cannula. He was seen here last in June 2020. He follows with Dr. Pérez in our office. He's been maintained on Symbicort, albuterol and DuoNeb inhalations. He presented to the emergency room last evening with a several-day history of increasing shortness of breath, cough and chest tightness and wheezing. His cough is nonproductive. Chest x-ray showed no active cardiopulmonary disease. CT angiogram ruled out pulmonary embolism. 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 Mild fibrotic changes and subsegmental atelectasis bilaterally. No significant change compared to previous. White count 8.9. Hemoglobin 14.7. D-dimer 0.87. Sodium 136. Potassium 4.6. Bicarb 29. Creatinine 0.75. AST 34. ALT 15. Troponin 0.012. ProBNP 164. Reeder virus not detected. He's been initiated on DuoNeb inhalations, Symbicort, IV Solu-Medrol. Empiric antibiotics in the form of azithromycin. He is seen today in consultation in the emergency room. He is currently sitting up on a stretcher. Awake and alert in no acute distress. States he is breathing easier today compared to yesterday. No fever or chills. No hemoptysis. Currently on 3 L nasal cannula with O2 saturation 96%. Progress note dated 01/01/2021. This is a 70-year-old gentleman who was seen by Dr. Goodson yesterday. The patient has a history of underlying severe COPD and chronic hypoxemic re spiratory failure. He sees one of my partners in the office on a regular basis for his COPD. He was admitted with a diagnosis of COPD exacerbation. He is doing much better today. Patient's on 3 L nasal cannula. He is not on any IV fluids at this time. His complaints include primarily cough, shortness of breath, chest tightness, and wheezing. All of those symptoms are improved, but is not back to baseline as yet. She denies any fever or chills. He denies any chest pain or chest discomfort. No new labs today. Chest x-ray showed no acute cardiopulmonary disease. CT angiogram was negative for pulmonary embolism. Progress note dated 01/02/2021. 70-year-old male, again seen in room 615. He was initially seen by Dr. Goodson. The patient has a history of severe COPD, and chronic hypoxemic respiratory failure. Currently, he is doing better. His breathing is improved. From the pulmonary standpoint, the patient could be considered for possible discharge. Again, we will allow the decision to be made by the primary service. The patient denies any chest pain or chest discomfort. There is no fever or chills. The patient is not really coughing up any phlegm. He denies any nausea, vomiting, or diarrhea. No new laboratory data to report. No new chest x-ray to report. Objective - Vital Signs Vital signs: Vital Signs Temp 97 F L 01/02/21 07:00 Pulse 106 H 01/02/21 11:54 Resp 16 01/02/21 07:00 BP 111/57 01/02/21 11:54 Pulse Ox 98 01/02/21 07:00 Intake & Output 01/01/21 01/02/21 01/02/21 18:59 06:59 18:59 Intake Total 360 Output Total 800 100 Balance -800 260 Weight 48.081 kg Intake: Oral 360 Output: Urine 800 100 Other: Voiding Method Urinal Urinal Urinal # Voids 1 2 # Bowel Movements 2 0 - Exam No acute distress, oriented 3. The patient is mildly tachypneic. No use of accessory muscles or conversational dyspnea. HEENT examination is grossly unremarkable. Neck supple. Full range of motion. No adenopathy thyromegaly or neck vein distention. Cardiovascular examination reveals regular rhythm rate. S1-S2 normal. No S3 or S4. No discernible murmur noted. Heart rate 94 bpm. Lungs reveal severely diminished breath sounds bilaterally. Mild expiratory rhonchi and wheezes are noted. There are no crackles. Breath sounds are equal bilaterally. Slight prolongation on forced maneuver. Saturations are okay on 3 L. Abdomen soft bowel sounds are heard. No masses or tenderness. Extremities are intact. No cyanosis clubbing or edema. Skin is without rash or lesion. Neurologic examination is brief but nonfocal. - Labs CBC & Chem 7: 12/30/20 22:44 12/31/20 00:15 Assessment and Plan Assessment: 1 Acute on chronic hypoxic respiratory failure secondary to an acute exacerbation of chronic obstructive pulmonary disease. 2 Chronic tobacco dependence of greater than 40 years however quit 6 months ago. 3 History of gastroesophageal reflux disease. Plan: Plan dated 01/01/2021. Currently, the patient's on oral Zithromax, Pulmicort 1 mg, formoterol, Duo nebs, and Solu-Medrol. This is an appropriate regimen for this patient. Clinically feeling better. Not quite ready for discharge. Possibly by tomorrow. The patient states that his breathing, chest tightness, wheezing, and cough are much improved. He denies any new complaints. Additional recommendations and suggestions are forthcoming. Prognosis is guarded. Plan dated 01/02/2021. The patient remains on Zithromax, Pulmicort, formoterol, DuoNeb, and Solu- Medrol. The patient will be converted to Symbicort, and prednisone. The patient might be considered for possible discharge from the hospital. We'll leave that up to the primary service. The patient should follow-up in my office after discharge and 7-10 days. Time with Patient: Less than 30
--- NOTE | 2021-01-02 16:43 | P.PN ---
Subjective Progress Note Date: 01/02/21 Pt had another episode of blacking out, but reports they are fewer than yesterday. Overall feels modestly improved. Objective - Vital Signs Vital signs: Vital Signs Temp 98 F 01/02/21 14:27 Pulse 84 01/02/21 16:02 Resp 18 01/02/21 14:27 BP 111/70 01/02/21 14:27 Pulse Ox 96 01/02/21 14:27 Intake & Output 01/01/21 01/02/21 01/02/21 18:59 06:59 18:59 Intake Total 360 Output Total 800 200 Balance -800 160 Weight 48.081 kg Intake: Oral 360 Output: Urine 800 200 Other: Voiding Method Urinal Urinal Urinal # Voids 1 2 # Bowel Movements 2 0 - Exam Gen: awake, alert HEENT: normocephalic, atraumatic, good hearing acuity, moist mucous membranes Resp: Patient does have mild accessory muscle use, extremely diminished air exchange with lots of space in the lung ramirez, no audible wheezing CVS: good distal perfusion x 4, tachycardic, regular GI: soft, NTTP, ND : no SPT, no CVAT, cardenas catheter not present MSK: no pitting edema, no clubbing Neuro: non-focal, moving all extremities Psych: cooperative, euthymic mood - Labs CBC & Chem 7: 12/30/20 22:44 12/31/20 00:15 Assessment and Plan Assessment: acute COPD exacerbation acute on chronic hypoxic respiratory failure supplemental oxygen covid negative duonebs PRN resume home inhalers systemic steroids social 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 patient denies smoking CTA no acute PE PT consult 500cc bolus full code anticipated length of stay > 2 midnights anticipated discharge home DVT PPX mechanical
[2021-01-02] MEDS: SYMBICORT 160-4.5 MCG INHALER INHALATION SCH (19:58)
[2021-01-03] MEDS: IPRATROPIUM-ALBUTEROL 3 ML NEB INHALATION SCH ×4 (07:16→19:41)
[2021-01-03] MEDS: SYMBICORT 160-4.5 MCG INHALER INHALATION SCH ×2 (07:16→19:41)
[2021-01-03] MEDS: predniSONE 20 MG TAB PO SCH (08:59)
[2021-01-03] MEDS: AZITHROMYCIN 500 MG TAB PO SCH (08:59)
--- NOTE | 2021-01-03 10:40 | P.PN ---
Subjective Progress Note Date: 01/03/21 Pt overall feels improved. No further blacking out episodes. No further dizziness on standing. Pending PT eval. Objective - Vital Signs Vital signs: Vital Signs Temp 97.7 F 01/03/21 06:43 Pulse 84 01/03/21 07:28 Resp 16 01/03/21 06:43 BP 119/64 01/03/21 06:43 Pulse Ox 95 01/03/21 06:43 Intake & Output 01/02/21 01/03/21 01/03/21 18:59 06:59 18:59 Intake Total 600 120 Output Total 600 600 100 Balance 0 -600 20 Intake: Oral 600 120 Output: Urine 600 600 100 Other: Voiding Method Urinal Toilet Toilet Urinal Urinal # Voids 2 # Bowel Movements 0 - Exam Gen: awake, alert HEENT: normocephalic, atraumatic, good hearing acuity, moist mucous membranes Resp: Patient does have mild accessory muscle use, extremely diminished air exchange with lots of space in the lung ramirez, no audible wheezing CVS: good distal perfusion x 4, tachycardic, regular GI: soft, NTTP, ND : no SPT, no CVAT, cardenas catheter not present MSK: no pitting edema, no clubbing Neuro: non-focal, moving all extremities Psych: cooperative, euthymic mood - Labs CBC & Chem 7: 12/30/20 22:44 12/31/20 00:15 Assessment and Plan Assessment: acute COPD exacerbation acute on chronic hypoxic respiratory failure supplemental oxygen covid negative duonebs PRN resume home inhalers systemic steroids social service assistant to 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 patient denies smoking CTA no acute PE PT consult 500cc bolus full code anticipated length of stay > 2 midnights anticipated discharge home DVT PPX mechanical
--- NOTE | 2021-01-03 14:08 | P.PN ---
Subjective Progress Note Date: 01/03/21 Principal diagnosis: Shortness of breath. This is a very pleasant 70-year-old gentleman who has a history of chronic obstructive pulmonary disease, chronic tobacco dependence of greater than 30 years. He states he did quit approximate 6 months ago. He is oxygen dependent at home on 3 L/m per nasal cannula. He was seen here last in June 2020. He follows with Dr. Pérez in our office. He's been maintained on Symbicort, albuterol and DuoNeb inhalations. He presented to the emergency room last evening with a several-day history of increasing shortness of breath, cough and chest tightness and wheezing. His cough is nonproductive. Chest x-ray showed no active cardiopulmonary disease. CT angiogram ruled out pulmonary embolism. 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 Mild fibrotic changes and subsegmental atelectasis bilaterally. No significant change compared to previous. White count 8.9. Hemoglobin 14.7. D-dimer 0.87. Sodium 136. Potassium 4.6. Bicarb 29. Creatinine 0.75. AST 34. ALT 15. Troponin 0.012. ProBNP 164. Reeder virus not detected. He's been initiated on DuoNeb inhalations, Symbicort, IV Solu-Medrol. Empiric antibiotics in the form of azithromycin. He is seen today in consultation in the emergency room. He is currently sitting up on a stretcher. Awake and alert in no acute distress. States he is breathing easier today compared to yesterday. No fever or chills. No hemoptysis. Currently on 3 L nasal cannula with O2 saturation 96%. Progress note dated 01/01/2021. This is a 70-year-old gentleman who was seen by Dr. Goodson yesterday. The patient has a history of underlying severe COPD and chronic hypoxemic re spiratory failure. He sees one of my partners in the office on a regular basis for his COPD. He was admitted with a diagnosis of COPD exacerbation. He is doing much better today. Patient's on 3 L nasal cannula. He is not on any IV fluids at this time. His complaints include primarily cough, shortness of breath, chest tightness, and wheezing. All of those symptoms are improved, but is not back to baseline as yet. She denies any fever or chills. He denies any chest pain or chest discomfort. No new labs today. Chest x-ray showed no acute cardiopulmonary disease. CT angiogram was negative for pulmonary embolism. Progress note dated 01/02/2021. 70-year-old male, again seen in room 615. He was initially seen by Dr. Goodson. The patient has a history of severe COPD, and chronic hypoxemic respiratory failure. Currently, he is doing better. His breathing is improved. From the pulmonary standpoint, the patient could be considered for possible discharge. Again, we will allow the decision to be made by the primary service. The patient denies any chest pain or chest discomfort. There is no fever or chills. The patient is not really coughing up any phlegm. He denies any nausea, vomiting, or diarrhea. No new laboratory data to report. No new chest x-ray to report. Progress note dated 01/03/2021. 70-year-old male again seen in room 6:15. He was initially seen by Dr. Goodson in consultation. The patient has a history of severe COPD, and chronic hypoxemic respiratory failure. Currently, he's on a couple liters of oxygen. His breathing is much improved. He apparently states that he may be discharged tomorrow but he is not sure. He denies any chest pain or chest discomfort. There is no fever or chills. He denies any nausea, vomiting, or diarrhea. No new labs or x-rays today. Objective - Vital Signs Vital signs: Vital Signs Temp 97.7 F 01/03/21 06:43 Pulse 88 01/03/21 11:17 Resp 16 01/03/21 06:43 BP 119/64 01/03/21 06:43 Pulse Ox 95 01/03/21 06:43 Intake & Output 01/02/21 01/03/21 01/03/21 18:59 06:59 18:59 Intake Total 600 240 Output Total 600 600 100 Balance 0 -600 140 Intake: Oral 600 240 Output: Urine 600 600 100 Other: Voiding Method Urinal Toilet Toilet Urinal Urinal # Voids 2 # Bowel Movements 0 - Exam No acute distress, oriented 3. The patient is mildly tachypneic. No use of accessory muscles or conversational dyspnea. HEENT examination is grossly unremarkable. Neck supple. Full range of motion. No adenopathy thyromegaly or neck vein distention. Cardiovascular examination reveals regular rhythm rate. S1-S2 normal. No S3 or S4. No discernible murmur noted. Heart rate 88 bpm. Lungs reveal severely diminished breath sounds bilaterally. Mild expiratory rhonchi and wheezes are noted. There are no crackles. Breath sounds are equal bilaterally. Slight prolongation on forced maneuver. Saturations are 94% on 3 L. Abdomen soft bowel sounds are heard. No masses or tenderness. Extremities are intact. No cyanosis clubbing or edema. Skin is without rash or lesion. Neurologic examination is brief but nonfocal. - Labs CBC & Chem 7: 12/30/20 22:44 12/31/20 00:15 Assessment and Plan Assessment: 1 Acute on chronic hypoxic respiratory failure secondary to an acute exacerbation of chronic obstructive pulmonary disease. 2 Chronic tobacco dependence of greater than 40 years however quit 6 months ago. 3 History of gastroesophageal reflux disease. Plan: Plan dated 01/01/2021. Currently, the patient's on oral Zithromax, Pulmicort 1 mg, formoterol, Duo nebs, and Solu-Medrol. This is an appropriate regimen for this patient. Clinically feeling better. Not quite ready for discharge. Possibly by tomorrow. The patient states that his breathing, chest tightness, wheezing, and cough are much improved. He denies any new complaints. Additional recommendations and suggestions are forthcoming. Prognosis is guarded. Plan dated 01/02/2021. The patient remains on Zithromax, Pulmicort, formoterol, DuoNeb, and Solu- Medrol. The patient will be converted to Symbicort, and prednisone. The patient might be considered for possible discharge from the hospital. We'll leave that up to the primary service. The patient should follow-up in my office after discharge and 7-10 days. Plan dated 01/03/2021. Currently, the patient is on prednisone 40 mg a day, albuterol sulfate and ipratropium bromide, 4 times a day and when necessary, Symbicort, 160/4.5, 2 puffs twice a day, and Zithromax 500 mg orally. The patient is likely to be discharged in the next 24-48 hours. Certainly, his antibiotic can be discontinued on the day of discharge. We will continue to follow and make recommendations where appropriate. He will need to follow with my partner post discharge. No additional recommendations are made. Overall prognosis remains guarded. Time with Patient: Less than 30
[2021-01-03] MEDS ORDERED: ONDANSETRON 4 MG/2 ML VIAL IVP PRN (23:32)
[2021-01-04] MEDS ORDERED: ONDANSETRON 4 MG TAB PO PRN (01:13)
[2021-01-04] MEDS: SYMBICORT 160-4.5 MCG INHALER INHALATION SCH (07:21)
[2021-01-04] MEDS: IPRATROPIUM-ALBUTEROL 3 ML NEB INHALATION SCH ×2 (07:21→11:05)
[2021-01-04 08:28] VITALS: BP 119/71; RESP 17; TEMP 97.8
[2021-01-04] MEDS: predniSONE 20 MG TAB PO SCH (08:28)
[2021-01-04] MEDS: AZITHROMYCIN 500 MG TAB PO SCH (08:28)
[2021-01-04 11:08] VITALS: PULSE 80
--- NOTE | 2021-01-04 15:09 | P.DS ---
Providers Date of admission: 12/31/20 04:44 Expected date of discharge: 01/04/21 Attending physician: Linette Obrien MD Consults: 12/31/20 04:57 Consult Physician Routine Consulting Provider: Arina Pérez Consult Reason/Comments: COPD exacerbation Do you want consulting provider notified?: Yes Primary care physician: Sarah Rocha MD Hospital Course: Acute COPD exacerbation Acute on chronic hypoxic respiratory failure Patient presented with acute on chronic hypoxemic respiratory failure secondary to COPD exacerbation. Seen in consultation with pulmonology. Pt was treated with nebulizers, steroids, azithromycin while in house. Pt was also treated with nebulized versions of symbicort. On discharge he was returned to his baseline 3L of O2, and was given additional 4 days of prednisone to complete course. No abx prescribed on discharge. Notably, patient had episodes of dizziness upon sitting/standing while in house, which improved with rest and with some IVF. He was seen by PT to ensure no ongoing physical therapy need. Pt will be discharged home with home PT. Assessment: Gen: awake, alert HEENT: normocephalic, atraumatic, good hearing acuity, moist mucous membranes Resp: Patient does have mild accessory muscle use, extremely diminished air exchange with lots of space in the lung ramirez, no audible wheezing CVS: good distal perfusion x 4, tachycardic, regular GI: soft, NTTP, ND : no SPT, no CVAT, cardenas catheter not present MSK: no pitting edema, no clubbing Neuro: non-focal, moving all extremities Psych: cooperative, euthymic mood Patient Condition at Discharge: Good Plan - Discharge Summary New Discharge Prescriptions: New Azithromycin [Zithromax] 500 mg PO DAILY #5 tab predniSONE [Deltasone] 40 mg PO DAILY #8 tab Continue Albuterol Inhaler [Ventolin Hfa Inhaler] 2 puff INHALATION RT-QID PRN PRN Reason: Shortness Of Breath Multivitamins, Thera [Multivitamin (formulary)] 1 tab PO DAILY Albuterol Inhaler [Ventolin Hfa Inhaler] 1 puff INHALATION RT-QID PRN PRN Reason: Shortness Of Breath Budesonide/Formoterol Fumarate [Symbicort 160-4.5 Mcg Inhaler] 2 puff INHALATION RT-BID Discharge Medication List Albuterol Inhaler [Ventolin Hfa Inhaler] 2 puff INHALATION RT-QID PRN 01/22/20 [History] Multivitamins, Thera [Multivitamin (formulary)] 1 tab PO DAILY 01/22/20 [History] Albuterol Inhaler [Ventolin Hfa Inhaler] 1 puff INHALATION RT-QID PRN 12/31/20 [History] Budesonide/Formoterol Fumarate [Symbicort 160-4.5 Mcg Inhaler] 2 puff INHALATION RT-BID 12/31/20 [History] Azithromycin [Zithromax] 500 mg PO DAILY #5 tab 01/01/21 [Rx] predniSONE [Deltasone] 40 mg PO DAILY #8 tab 01/01/21 [Rx] Follow up Appointment(s)/Referral(s): [facility], [NON-STAFF] - 1 Week (Agency will contact you to set up schedule.) Sarah Rocha MD [Primary Care Provider] - 01/06/21 10:30 am Patient Instructions/Handouts: COPD (Chronic Obstructive Pulmonary Disease) (DC) Discharge Disposition: HOME WITH HOME HEALTH SERVICES
== END 2021-01-04 15:13 | disposition home health service (06) ==
LOC: EC 21:59 → 6NMEDSUR 12-31 04:44
PROVIDERS: ADMIT Internal Medicine; ATTEND Internal Medicine
DX: J44.1 Chronic obstructive pulmonary disease with (acute) exacerbation (principal); J96.21 Acute and chronic respiratory failure with hypoxia; R00.0 Tachycardia, unspecified; J98.11 Atelectasis; K21.9 Gastro-esophageal reflux disease without esophagitis; F40.240 Claustrophobia; Z20.822 Contact with and (suspected) exposure to COVID-19; Z79.51 Long term (current) use of inhaled steroids; Z79.899 Other long term (current) drug therapy; Z87.891 Personal history of nicotine dependence; Z99.81 Dependence on supplemental oxygen; Z80.9 Family history of malignant neoplasm, unspecified
CPT/HCPCS: 99285; 96376 ×3; 96361 ×2; 96374; 36415 ×2; 94640 ×10; 93005; 97162; 85379; 83880; 80053; 83605; 84484; 85025; 85610; 85730; 87635; 71046; 71275; G0378 ×5; J2930 ×3; J7512 ×3; Q9967

== ENCOUNTER → 2021-06-18 | Outpatient (CLI) | payer MEDICARE | END | disposition home or self-care (01) | LOC: LABWHC1 11:14 | PROVIDERS: ATTEND Urology | DX: C61 Malignant neoplasm of prostate (principal) | CPT/HCPCS: 36415; 84153 ==

== ENCOUNTER 2021-07-30 14:38 | Inpatient (IN) | payer MEDICARE ==
--- NOTE | 2021-07-30 15:50 | XR ---
EXAMINATION TYPE: XR chest 2V DATE OF EXAM: 07/30/2021 COMPARISON: 12/30/2020 HISTORY: Shortness of breath TECHNIQUE: Frontal and lateral views of the chest are obtained. FINDINGS: There is hyperinflation lungs and flattening the diaphragms consistent with COPD. There is mild chronic prominence of the interstitium. There is questionable partially consolidative opacity in the left mid to lower lung zone when compare d to previous. The possibility of an acute pneumonic process is not excluded. Clinical correlation sh ort-term follow-up to resolution is recommended. Heart is normal and the pulmonary vasculature is not congested. There is no definite pleural effusion and no pneumothorax. The osseous structures are intact IMPRESSION: 1. COPD and chronic lung changes. 2. Cannot exclude developing airspace infiltrate in the left midlung and clinical correlation short-t erm follow-up to resolution is recommended.
[2021-07-30] MEDS ORDERED: SODIUM CHLORIDE 0.9% 1,000 ML IV STA (17:13)
[2021-07-30] MEDS ORDERED: ACETAMINOPHEN TAB 500 MG TAB PO STA (17:13)
[2021-07-30] MEDS ORDERED: DEXAMETHASONE SOD PHOSPHATE 10 MG/ML 1 ML VIAL IV STA (17:25)
[2021-07-30] MEDS ORDERED: IPRATROPIUM-ALBUTEROL 3 ML NEB INHALATION STA (17:25)
--- NOTE | 2021-07-30 17:26 | ED ---
General Adult HPI - General Chief complaint: Fever Stated complaint: SOB/Headache/Cough Time Seen by Provider: 07/30/21 17:11 Source: patient Mode of arrival: ambulatory Limitations: no limitations - History of Present Illness Initial comments: Dictation was produced using [employer] dictation software. please excuse any grammatical, word or spelling errors. Chief Complaint: 71-year-old male presents with sore throat cough and fever History of Present Illness: 71-year-old male who has past medical history of COPD wears home oxygen at 3 L nasal cannula. He woke this morning feeling sick. Last night he started to have symptoms of scratchy throat. Been around his grandchild who is been having URI type symptoms. Patient woke up this morning with fever and body aches and generalized malaise. He has been having fever and chills. Denies any chest pain. He does feel nauseated and has no appetite. He notices oxygen levels have not decreased. He's been wearing his 3 L indicating oxygen with no changes. The ROS documented in this emergency department record has been reviewed and confirmed by me. Those systems with pertinent positive or negative responses have been documented in the HPI. All other systems are other negative and/or noncontributory. PHYSICAL EXAM: General Impression: Alert and oriented x3, not in acute distress HEENT: Normocephalic atraumatic, extra-ocular movements intact, pupils equal and reactive to light bilaterally, mucous membranes moist. Cardiovascular: Heart regular rate and rhythm Chest: Diminished lung sounds bilaterally, no retractions, no tachypnea Abdomen: abdomen soft, non-tender, non-distended, no organomegaly Musculoskeletal: Pulses present and equal in all extremities, no peripheral edema Motor: no focal deficits noted Neurological: CN II-XII grossly intact, no focal motor or sensory deficits noted Skin: Intact with no visualized rashes Psych: Normal affect and mood ED course: 71-year-old male presents emergency Department with respiratory infectious symptoms. Vital signs upon arrival shows after 100.8, heart rate of 127, respiratory 26. Patient's 94% on his home oxygen level 3 L nasal cannula. Not hypotensive. Laboratory evaluation obtained. CBC unremarkable P metabolic panel is negative. No lactic acid level elevation. COVID-19 and influenza are negative. Chest x- ray shows COPD but perhaps atypical airspace infiltrate. Patient given kim thing treatment with slight improvement of symptoms. Given patient's age and comorbidities and mild persistent respiratory distress patient be admitted for continued breathing treatments, respiratory monitoring and pulmonology consultation. - Related Data Home Medications Medication Instructions Recorded Confirmed Multivitamins, Thera [Multivitamin 1 tab PO DAILY 01/22/20 07/30/21 (formulary)] Diclofenac Sodium Gel [Voltaren 1 applic TOPICAL QID PRN 07/30/21 07/30/21 Gel] Fluticasone/Umeclidin/Vilanter 1 puff INHALATION RT-DAILY 07/30/21 07/30/21 [Trelegy Ellipta 100-62.5-25] Ipratropium-Albuterol Nebulize 3 ml INHALATION RT-QID PRN 07/30/21 07/30/21 [Duoneb 0.5 mg-3 mg/3 ml Soln] Allergies Allergy/AdvReac Type Severity Reaction Status Date / Time No Known Allergies Allergy Verified 07/30/21 18:21 Review of Systems ROS Statement: Those systems with pertinent positive or pertinent negative responses have been documented in the HPI. ROS Other: All systems not noted in ROS Statement are negative. Past Medical History Past Medical History: COPD, GERD/Reflux Additional Past Medical History / Comment(s): Current upper abdominal pain, affecting appetite. History of Any Multi-Drug Resistant Organisms: None Reported Past Surgical History: Orthopedic Surgery, Tonsillectomy Additional Past Surgical History / Comment(s): Right shoulder arthroscopy. Colonoscopy. EGD Past Anesthesia/Blood Transfusion Reactions: No Reported Reaction Additional Past Anesthesia/Blood Transfusion Reaction / Comment(s): Pt has CLAUSTROPHOBIA Past Psychological History: No Psychological Hx Reported Smoking Status: Former smoker Past Alcohol Use History: None Reported Past Drug Use History: None Reported - Past Family History Father Family Medical History: Cancer Mother Family Medical History: Cancer Additional Family Medical History / Comment(s): Mother in her 50s with some form of cancer. Pt/spouse do not recall type of cancer. General Exam Limitations: no limitations Course Vital Signs 07/30/21 07/30/21 07/30/21 14:53 17:46 17:58 Temperature 100.8 F H Pulse Rate 127 H 96 98 Respiratory 26 H Rate Blood Pressure 110/71 O2 Sat by Pulse 94 L Oximetry Medical Decision Making - Lab Data Result diagrams: 07/30/21 17:50 07/30/21 17:50 Lab Results 07/30/21 07/30/21 07/30/21 Range/Units 14:53 17:50 17:50 WBC 7.9 (3.8-10.6) k/uL RBC 4.61 (4.30-5.90) m/uL Hgb 13.9 (13.0-17.5) gm/dL Hct 42.3 (39.0-53.0) % MCV 91.8 (80.0-100.0) fL MCH 30.2 (25.0-35.0) pg MCHC 32.9 (31.0-37.0) g/dL RDW 13.4 (11.5-15.5) % Plt Count 291 (150-450) k/uL MPV 6.6 Neutrophils % 86 % Lymphocytes % 6 % Monocytes % 4 % Eosinophils % 1 % Basophils % 1 % Neutrophils # 6.8 (1.3-7.7) k/uL Lymphocytes # 0.5 L (1.0-4.8) k/uL Monocytes # 0.3 (0-1.0) k/uL Eosinophils # 0.1 (0-0.7) k/uL Basophils # 0.0 (0-0.2) k/uL Sodium (137-145) mmol/L Potassium (3.5-5.1) mmol/L Chloride (98-107) mmol/L Carbon Dioxide (22-30) mmol/L Anion Gap mmol/L BUN (9-20) mg/dL Creatinine (0.66-1.25) mg/dL Est GFR (CKD-EPI)AfAm (>60 ml/min/1.73 sqM) Est GFR (CKD-EPI)NonAf (>60 ml/min/1.73 sqM) Glucose (74-99) mg/dL Plasma Lactic Acid Luciano (0.7-2.0) mmol/L Calcium (8.4-10.2) mg/dL Magnesium (1.6-2.3) mg/dL Coronavirus (PCR) Not Detected (Not Detectd) Influenza Type A RNA Not Detected (Not Detectd) Influenza Type B (PCR) Not Detected (Not Detectd) 07/30/21 07/30/21 Range/Units 17:50 17:50 WBC (3.8-10.6) k/uL RBC (4.30-5.90) m/uL Hgb (13.0-17.5) gm/dL Hct (39.0-53.0) % MCV (80.0-100.0) fL MCH (25.0-35.0) pg MCHC (31.0-37.0) g/dL RDW (11.5-15.5) % Plt Count (150-450) k/uL MPV Neutrophils % % Lymphocytes % % Monocytes % % Eosinophils % % Basophils % % Neutrophils # (1.3-7.7) k/uL Lymphocytes # (1.0-4.8) k/uL Monocytes # (0-1.0) k/uL Eosinophils # (0-0.7) k/uL Basophils # (0-0.2) k/uL Sodium 137 (137-145) mmol/L Potassium 4.5 (3.5-5.1) mmol/L Chloride 103 (98-107) mmol/L Carbon Dioxide 28 (22-30) mmol/L Anion Gap 6 mmol/L BUN 14 (9-20) mg/dL Creatinine 1.02 (0.66-1.25) mg/dL Est GFR (CKD-EPI)AfAm 85 (>60 ml/min/1.73 sqM) Est GFR (CKD-EPI)NonAf 74 (>60 ml/min/1.73 sqM) Glucose 113 H (74-99) mg/dL Plasma Lactic Acid Luciano 0.9 (0.7-2.0) mmol/L Calcium 9.1 (8.4-10.2) mg/dL Magnesium 2.0 (1.6-2.3) mg/dL Coronavirus (PCR) (Not Detectd) Influenza Type A RNA (Not Detectd) Influenza Type B (PCR) (Not Detectd) Disposition Clinical Impression: COPD exacerbation Disposition: ADMITTED IP TO THIS HOSP Condition: Serious Referrals: Sarah Rocha MD [Primary Care Provider] - 1-2 days
[2021-07-30 18:06] LABS: Basophils % (A) 1 %; Eosinophils # (A) 0.1 k/uL (0-0.7); Eosinophils % (A) 1 %; HCT 42.3 % (39.0-53.0); HGB 13.9 gm/dL (13.0-17.5); Lymphocytes # (A) 0.5 k/uL (1.0-4.8); Lymphocytes % (A) 6 %; MCH 30.2 pg (25.0-35.0); MCHC 32.9 g/dL (31.0-37.0); MCV 91.8 fL (80.0-100.0); Mean Platelet Volume 6.6; Monocytes # (A) 0.3 k/uL (0-1.0); Monocytes % (A) 4 %; Neutrophils # (A) 6.8 k/uL (1.3-7.7); Neutrophils % (A) 86 %; Platelet Count 291 k/uL (150-450); RBC 4.61 m/uL (4.30-5.90); RDW 13.4 % (11.5-15.5); WBC 7.9 k/uL (3.8-10.6)
[2021-07-30 18:11] LABS: Calcium 9.1 mg/dL (8.4-10.2); Potassium 4.5 mmol/L (3.5-5.1)
[2021-07-30] MEDS ORDERED: AZITHROMYCIN 500 MG in SODIUM CHLORIDE 0.9% 250 ML IVPB STA (18:46)
[2021-07-31] MEDS: IPRATROPIUM-ALBUTEROL 3 ML NEB INHALATION SCH ×5 (00:36→19:33)
[2021-07-31] MEDS ORDERED: IPRATROPIUM-ALBUTEROL 3 ML NEB INHALATION PRN (08:29)
[2021-07-31] MEDS: predniSONE 10 MG TAB PO SCH (08:39)
--- NOTE | 2021-07-31 10:12 | P.CNPUL ---
History of Present Illness Consult date: 07/31/21 Requesting physician: Maribel Mcgraw Reason for consult: dyspnea, cough, abnormal CXR/CT Chief complaint: Sore throat, cough, fever History of present illness: This is a very pleasant 71-year-old male patient with a history of chronic obstructive pulmonary disease, chronic tobacco dependence of greater than 30 years however he has since quit back in 2020. He is oxygen dependent on 2-3 L a t home. He follows with Dr. Pérez in our office. He's been maintained on Trelegy and DuoNeb inhalations. He presented to the emergency room yesterday with complaints of shortness of breath, cough, sore throat. Chest x-ray revealed evidence of COPD and chronic changes. There was some area of in filtrate in the left midlung. White count 7.9. Hemoglobin 13.9. Sodium 137. Potassium 4.5. BUN 14. Creatinine 1.02. Glucose 113. Reeder virus by PCR not detected. Influenza screen negative. He has been initiated on azithromycin and ceftriaxone. Continued on Symbicort and DuoNeb inhalations. He is seen today in consultation on the regular medical floor. Awake and alert in no acute dist ress. Maintaining good O2 saturations up to 99% on 3 L/m per nasal cannula. He's been afebrile. Hemodynamically stable. Review of Systems REVIEW OF SYSTEMS: CONSTITUTIONAL: Denies any recent significant weight loss or weight gain. EYES: Denies change in vision. EARS, NOSE, MOUTH, THROAT: Positive for sore throat. CARDIOVASCULAR: Denies chest pain, palpitations or syncopal episodes. RESPIRATORY: Positive for shortness of breath, cough, congestion no hemoptysis. GASTROINTESTINAL: Denies change in appetite, denies abdominal pain GENITOURINARY: Denies hematuria, denies infections. MUSKULOSKELETAL: Denies pain, denies swelling. INTEGUMENTARY: Denies rash, denies eczema. NEUROLOGICAL: Denies recent memory loss, no recent seizure activity. PSYCHIATRIC: Denies anxiety, denies depression. HEMATOLOGIC/LYMPHATIC: Denies anemia, denies enlarged lymph nodes. Past Medical History Past Medical History: COPD, GERD/Reflux Additional Past Medical History / Comment(s): positional upper abdominal pain stated when he changes position from laying to sitting and standing. History of Any Multi-Drug Resistant Organisms: None Reported Past Surgical History: Orthopedic Surgery, Tonsillectomy Additional Past Surgical History / Comment(s): Right shoulder arthroscopy. Colonoscopy. EGD Past Anesthesia/Blood Transfusion Reactions: No Reported Reaction Additional Past Anesthesia/Blood Transfusion Reaction / Comment(s): Pt has CLAUSTROPHOBIA Past Psychological History: No Psychological Hx Reported Additional Psychological History / Comment(s): . Smoking Status: Former smoker Past Alcohol Use History: None Reported Additional Past Alcohol Use History / Comment(s): Pt started smokig in 1967, QUIT JULY 2020. Pt quit drinking 20 years ago. Past Drug Use History: None Reported - Past Family History Father Family Medical History: Cancer Mother Family Medical History: Cancer Additional Family Medical History / Comment(s): Mother in her 50s with some form of cancer. Pt/spouse do not recall type of cancer. Medications and Allergies Home Medications Medication Instructions Recorded Confirmed Type Multivitamins, Thera [Multivitamin 1 tab PO DAILY 01/22/20 07/30/21 History (formulary)] Diclofenac Sodium Gel [Voltaren 1 applic TOPICAL QID PRN 07/30/21 07/30/21 History Gel] Fluticasone/Umeclidin/Vilanter 1 puff INHALATION RT-DAILY 07/30/21 07/30/21 Hi story [Trelegy Ellipta 100-62.5-25] Ipratropium-Albuterol Nebulize 3 ml INHALATION RT-QID PRN 07/30/21 07/30/21 History [Duoneb 0.5 mg-3 mg/3 ml Soln] Allergies Allergy/AdvReac Type Severity Reaction Status Date / Time No Known Allergies Allergy Verified 07/30/21 18:21 Physical Exam Vitals: Vital Signs Temp Pulse Pulse Resp BP BP BP 07/31/21 09:18 72 07/31/21 09:04 76 07/31/21 07:00 98.0 F 64 18 104/67 07/31/21 01:11 97.5 F L 77 22 94/51 07/30/21 20:51 98.2 F 88 16 101/70 07/30/21 20:49 98.1 F 72 24 104/65 07/30/21 19:33 99.2 F 07/30/21 19:31 93 20 89/57 07/30/21 17:58 98 07/30/21 17:46 96 07/30/21 14:53 100.8 F H 127 H 26 H 110/71 Pulse Ox 07/31/21 09:18 07/31/21 09:04 07/31/21 07:00 99 07/31/21 01:11 98 07/30/21 20:51 95 07/30/21 20:49 99 07/30/21 19:33 07/30/21 19:31 97 07/30/21 17:58 07/30/21 17:46 07/30/21 14:53 94 L Intake and Output 07/30/21 07/31/21 07/31/21 22:59 06:59 14:59 Other: # Voids 0 Weight 50.349 kg GENERAL EXAM: Alert, active, comfortable in no apparent distress. HEAD: Normocephalic. EYES: Normal reaction of pupils, equal size. NOSE: Clear with pink turbinates. THROAT: No erythema or exudates. NECK: No masses, no JVD. CHEST: No chest wall deformity. LUNGS: Equal air entry with few scattered rhonchi. CVS: S1 and S2 normal with no audible murmur, regular rhythm. ABDOMEN: No hepatosplenomegaly, normal bowel sounds, no guarding or rigidity. SPINE: No scoliosis or deformity SKIN: No rashes CENTRAL NERVOUS SYSTEM: No focal deficits, tone is normal in all 4 extremities. EXTREMITIES: There is no peripheral edema. No clubbing, no cyanosis. Peripheral pulses are intact. Results - Laboratory Findings CBC and BMP: 07/30/21 17:50 07/30/21 17:50 Abnormal lab findings: Abnormal Labs 07/30/21 07/30/21 17:50 17:50 Lymphocytes # 0.5 L Glucose 113 H - Diagnostic Findings Chest x-ray: image reviewed Assessment and Plan Assessment: 1 Acute exacerbation of chronic obstructive pulmonary disease with possible left midlung community-acquired pneumonia. Pro calcitonin pending. 2 Chronic tobacco dependence of greater than 40 years however quit 1 year ago 3 Gastroesophageal reflux disease Plan: The patient was seen and evaluated Chest x-ray, labs and medications reviewed Continue ceftriaxone and azithromycin Continue Symbicort, DuoNeb inhalations Initiate prednisone 30 mg daily Titrate the FiO2 as tolerated We will continue to follow make further recommendations based on his clinical status I have personally seen and examined the patient, performed the documentation and the assessment and plan as written. Number of minutes spent on the visit: and 20.
[2021-07-31 11:23] VITALS: BMI 18.4
--- NOTE | 2021-07-31 16:16 | P.HPIM ---
History of Present Illness H&P Date: 07/31/21 Chief Complaint: SOB This patient was not signed out to me by the ED physician. Patient is a 71-year-old male with PMH of COPD on 3 L NC at home that presents the ED for shortness of breath that has been progressively getting worse over the past 2 days. He also reports a cough productive of sputum. He is unable to describe the sputum effectively. Patient reports a history of smoking but quit in 2000. He denies any headache, lower stomach edema, nausea vomiting, fever or chills, chest pain, palpitations, changes in urination or bowel habits. No changes in appetite or weight. He denies any dizziness, numbness/weakness/tingling of the extremities. In the ED, his vital signs are stable on 3 L nasal cannula. CBC showed lymphocyte count of 0.5. CMP showed glucose of 113. COVID-19 negative. Flu negative. Chest x-ray showed signs of COPD and chronic lung changes. Patient is admitted for COPD exacerbation. Review of systems was performed and is negative except above. General: [non toxic], [no distress], [appears at stated age] Derm: [warm], [dry] Head: [atraumatic], [normocephalic], [symmetric] Eyes: [EOMI], [no lid lag], [anicteric sclera] Mouth: [no lip lesion], [mucus membranes moist] Cardiovascular: [S1S2 reg], [no murmur], [positive DP pulse bilateral], Lungs: [Decreased breath sounds bilateral], [no rhonchi, no rales] , [no accessory muscle use] Abdominal: [soft], [ nontender to palpation], [no guarding], [no appreciable organomegaly] Ext: [no gross muscle atrophy], [no edema], [no contractures] Neuro: [ CN II-XI grossly intact], [no focal neuro deficits] Psych: [Alert], [oriented], [appropriate affect] #COPD exacerbation on 2 L home O2 #Chronic respiratory failure #Chronic nicotine and tobacco dependence Patient presents with progressively worsening shortness of breath likely related to COPD exacerbation. Chest x-ray shows questionable infiltrate. Pro- calcitonin is pending. He'll be started on DuoNeb scheduled and as needed for shortness of breath and wheezing. Patient has restarted on prednisone by mouth. He will be empirically treated with Rocephin and azithromycin for concerns a community-acquired pneumonia. Symbicort inhaler has been added to his medication profile. He'll be started on telemetry monitoring. Pulmonology has been consulted for further management of this patient. DVT prophylaxis: [Heparin, SCD] Discussed with: [Patient] Anticipated discharge: [1-2 days] Anticipated discharge place: [Home] A total of [45] minutes was spent on the care of this complex patient more than 50% of the time was spent in counseling and care coordination. Patient names his decision maker if he can't make decisions for himself. Patient would like to be no code but is okay with mechanical ventilation if needed. Past Medical History Past Medical History: COPD, GERD/Reflux Additional Past Medical History / Comment(s): positional upper abdominal pain stated when he changes position from laying to sitting and standing. History of Any Multi-Drug Resistant Organisms: None Reported Past Surgical History: Orthopedic Surgery, Tonsillectomy Additional Past Surgical History / Comment(s): Right shoulder arthroscopy. Colonoscopy. EGD Past Anesthesia/Blood Transfusion Reactions: No Reported Reaction Additional Past Anesthesia/Blood Transfusion Reaction / Comment(s): Pt has CLAUSTROPHOBIA Past Psychological History: No Psychological Hx Reported Additional Psychological History / Comment(s): . Smoking Status: Former smoker Past Alcohol Use History: None Reported Additional Past Alcohol Use History / Comment(s): Pt started smokig in 1967, QUIT JULY 2020. Pt quit drinking 20 years ago. Past Drug Use History: None Reported - Past Family History Father Family Medical History: Cancer Mother Family Medical History: Cancer Additional Family Medical History / Comment(s): Mother in her 50s with some form of cancer. Pt/spouse do not recall type of cancer. Medications and Allergies Home Medications Medication Instructions Recorded Confirmed Type Multivitamins, Thera [Multivitamin 1 tab PO DAILY 01/22/20 07/30/21 History (formulary)] Diclofenac Sodium Gel [Voltaren 1 applic TOPICAL QID PRN 07/30/21 07/30/21 History Gel] Fluticasone/Umeclidin/Vilanter 1 puff INHALATION RT-DAILY 07/30/21 07/30/21 History [Trelegy Ellipta 100-62.5-25] Ipratropium-Albuterol Nebulize 3 ml INHALATION RT-QID PRN 07/30/21 07/30/21 History [Duoneb 0.5 mg-3 mg/3 ml Soln] Allergies Allergy/AdvReac Type Severity Reaction Status Date / Time No Known Allergies Allergy Verified 07/30/21 18:21 Physical Exam Vitals: Vital Signs Temp Pulse Pulse Resp BP BP BP 07/31/21 15:44 88 07/31/21 15:33 88 07/31/21 14:59 98.3 F 95 16 100/59 07/31/21 12:51 92 07/31/21 12:38 96 07/31/21 09:18 72 07/31/21 09:04 76 07/31/21 07:00 98.0 F 64 18 104/67 07/31/21 01:11 97.5 F L 77 22 94/51 07/30/21 20:51 98.2 F 88 16 101/70 07/30/21 20:49 98.1 F 72 24 104/65 07/30/21 19:33 99.2 F 07/30/21 19:31 93 20 89/57 07/30/21 17:58 98 07/30/21 17:46 96 Pulse Ox 07/31/21 15:44 07/31/21 15:33 07/31/21 14:59 97 07/31/21 12:51 07/31/21 12:38 07/31/21 09:18 07/31/21 09:04 07/31/21 07:00 99 07/31/21 01:11 98 07/30/21 20:51 95 07/30/21 20:49 99 07/30/21 19:33 07/30/21 19:31 97 07/30/21 17:58 07/30/21 17:46 Intake and Output 07/31/21 07/31/21 07/31/21 06:59 14:59 22:59 Other: # Voids 2 Weight 50.349 kg Results CBC & Chem 7: 07/30/21 17:50 07/30/21 17:50 Labs: Abnormal Lab Results - Last 24 Hours (Table) 07/30/21 07/30/21 Range/Units 17:50 17:50 Lymphocytes # 0.5 L (1.0-4.8) k/uL Glucose 113 H (74-99) mg/dL Thrombosis Risk Factor Assmnt - Choose All That Apply Each Risk Factor Represents 2 Points: Age 61-74 years Thrombosis Risk Factor Assessment Total Risk Factor Score: 2 Thrombosis Risk Factor Assessment Level: Low Risk
[2021-07-31] MEDS: AZITHROMYCIN 500 MG TAB PO SCH (17:19)
[2021-07-31] MEDS: SYMBICORT 160-4.5 MCG INHALER INHALATION SCH (19:33)
[2021-07-31] MEDS: HEPARIN SODIUM,PORCINE/PF 5,000 UNIT/0.5 ML SYRINGE SQ SCH (21:13)
[2021-08-01] MEDS: predniSONE 10 MG TAB PO SCH (07:42)
[2021-08-01] MEDS: HEPARIN SODIUM,PORCINE/PF 5,000 UNIT/0.5 ML SYRINGE SQ SCH ×3 (07:42→23:59)
[2021-08-01] MEDS: SYMBICORT 160-4.5 MCG INHALER INHALATION SCH ×2 (08:06→20:27)
[2021-08-01] MEDS: IPRATROPIUM-ALBUTEROL 3 ML NEB INHALATION SCH ×4 (08:06→20:27)
--- NOTE | 2021-08-01 10:58 | P.PN ---
Subjective Progress Note Date: 08/01/21 Principal diagnosis: Pneumonia Patient was seen and examined. No acute events overnight. Patient reports feeling slightly worse today. States that his 45% back to normal. Complains of cough productive of clear sputum. Currently on 3 L nasal cannula. Objective - Vital Signs Vital signs: Vital Signs Temp 98.1 F 08/01/21 07:00 Pulse 88 08/01/21 08:17 Resp 0 L 08/01/21 08:00 BP 113/60 08/01/21 07:00 Pulse Ox 98 08/01/21 07:00 Intake & Output 07/31/21 08/01/21 08/01/21 18:59 06:59 18:59 Intake Total 120 118 Balance 120 118 Weight 50.349 kg Intake: Oral 120 118 Other: # Voids 2 1 - Exam General: [non toxic], [no distress], [appears at stated age] Derm: [warm], [dry] Head: [atraumatic], [normocephalic], [symmetric] Eyes: [EOMI], [no lid lag], [anicteric sclera] Mouth: [no lip lesion], [mucus membranes moist] Cardiovascular: [S1S2 reg], [no murmur], [positive DP pulse bilateral], Lungs: [Decreased breath sounds bilateral], [Rhonchi bilaterally] , [no accessory muscle use] Abdominal: [soft], [ nontender to palpation], [no guarding], [no appreciable organomegaly] Ext: [no gross muscle atrophy], [no edema], [no contractures] Neuro: [no focal neuro deficits] Psych: [Alert], [oriented], [appropriate affect] - Labs CBC & Chem 7: 07/30/21 17:50 07/30/21 17:50 Labs: Abnormal Lab Results - Last 24 Hours (Table) 07/31/21 Range/Units 09:12 Procalcitonin 0.17 H (0.02-0.09) ng/mL Microbiology - Last 24 Hours (Table) 07/30/21 19:42 Blood Culture - Preliminary Blood No Growth after 24 hours 07/30/21 19:40 Blood Culture - Preliminary Blood No Growth after 24 hours Assessment and Plan Assessment: #COPD exacerbation on 2 L home O2 #Community acquired pneumonia #Chronic respiratory failure #Chronic nicotine and tobacco dependence Patient presents with progressively worsening shortness of breath likely related to COPD exacerbation. Chest x-ray shows questionable infiltrate. Pro- calcitonin is elevated. He'll be continued on DuoNeb scheduled and as needed for shortness of breath and wheezing. Continue prednisone by mouth. He will be treated with Rocephin and azithromycin for concerns a community-acquired pneumonia. Symbicort inhaler has been added to his medication profile. Mucinex added. He'll be continued on telemetry monitoring. Pulmonology has been consulted for further management of this patient. DVT prophylaxis: [Heparin, SCD] Discussed with: [Patient] Anticipated discharge: [1-2 days] Anticipated discharge place: [Home] A total of [25] minutes was spent on the care of this complex patient more than 50% of the time was spent in counseling and care coordination. Patient names his decision maker if he can't make decisions for himself. Patient would like to be no code but is okay with mechanical ventilation if needed. Patient is pending clinical improvement. Not quit back to baseline. Continue present management. Pulmonology on board. Anticipate DC in 1-2 days.
--- NOTE | 2021-08-01 11:45 | P.PN ---
Subjective Progress Note Date: 08/01/21 Principal diagnosis: Shortness of breath This is a very pleasant 71-year-old male patient with a history of chronic obstructive pulmonary disease, chronic tobacco dependence of greater than 30 years however he has since quit back in 2020. He is oxygen dependent on 2-3 L at home. He follows with Dr. Pérez in our office. He's been maintained on Trelegy and DuoNeb inhalations. He presented to the emergency room yesterday with complaints of shortness of breath, cough, sore throat. Chest x-ray revealed evidence of COPD and chronic changes. There was some area of infiltr ate in the left midlung. White count 7.9. Hemoglobin 13.9. Sodium 137. Potassium 4.5. BUN 14. Creatinine 1.02. Glucose 113. Reeder virus by PCR not detected. Influenza screen negative. He has been initiated on azithromycin and ceftriaxone. Continued on Symbicort and DuoNeb inhalations. He is seen today in consultation on the regular medical floor. Awake and alert in no acute distress. Maintaining good O2 saturations up to 99% on 3 L/m per nasal cannula. He's been afebrile. Hemodynamically stable. On 08/01/2021 patient seen in follow-up on medical surgical floor. Patient still states he is quite short of breath with any exertion, is difficult for him to even ambulate to the bathroom. Lung sounds are positive for scattered rhonchi, mild wheezing, vital signs have been stable patient is on 3 L of oxygen pulse ox is 98%, afebrile, hemodynamically patient has been stable, he remains on prednisone, remains on azithromycin and Rocephin, his pro-calcitonin level came back at 0.17. His chest x-ray on admission showed COPD and chronic lung changes, possibility of developing airspace infiltrate in the left midlung could not be completely excluded. He tested negative for coronary 19, influenza A and B. Patient continues on nebulized bronchodilators. Objective - Vital Signs Vital signs: Vital Signs Temp 98.1 F 08/01/21 07:00 Pulse 88 08/01/21 08:17 Resp 0 L 08/01/21 08:00 BP 113/60 08/01/21 07:00 Pulse Ox 98 08/01/21 07:00 Intake & Output 07/31/21 08/01/21 08/01/21 18:59 06:59 18:59 Intake Total 120 118 Balance 120 118 Weight 50.349 kg Intake: Oral 120 118 Other: # Voids 2 1 - Exam GENERAL EXAM: Alert, very pleasant, 71-year-old white male, on 3 L of oxygen pulse ox is 98%, comfortable in no apparent distress. HEAD: Normocephalic/atraumatic. EYES: Normal reaction of pupils, equal size. Conjunctiva pink, sclera white. NOSE: Clear with pink turbinates. THROAT: No erythema or exudates. NECK: No masses, no JVD, no thyroid enlargement, no adenopathy. CHEST: No chest wall deformity. Symmetrical expansion. LUNGS: Equal air entry with diffuse rhonchi CVS: Regular rate and rhythm, normal S1 and S2, no gallops, no murmurs, no rubs ABDOMEN: Soft, nontender. No hepatosplenomegaly, normal bowel sounds, no guarding or rigidity. EXTREMITIES: No clubbing, no edema, no cyanosis, 2+ pulses and upper and lower extremities. MUSCULOSKELETAL: Muscle strength and tone normal. SPINE: No scoliosis or deformity SKIN: No rashes CENTRAL NERVOUS SYSTEM: Alert and oriented -3. No focal deficits, tone is nor mal in all 4 extremities. PSYCHIATRIC: Alert and oriented -3. Appropriate affect. Intact judgment and insight. - Labs CBC & Chem 7: 07/30/21 17:50 07/30/21 17:50 Labs: Abnormal Lab Results - Last 24 Hours (Table) 07/31/21 Range/Units 09:12 Procalcitonin 0.17 H (0.02-0.09) ng/mL Microbiology - Last 24 Hours (Table) 07/30/21 19:42 Blood Culture - Preliminary Blood No Growth after 24 hours 07/30/21 19:40 Blood Culture - Preliminary Blood No Growth after 24 hours Assessment and Plan Plan: Assessment: #1. Acute exacerbation of COPD, possibility of left midlung coming acquired pneumonia was considered, however procalcitonin level is low. Patient remains on empiric antibiotics for acute exacerbation of COPD #2. Chronic history of smoking greater than 40 years, in remission for the past one year #3. GERD/reflux Plan: Continue current medical treatment Continue prednisone, Symbicort, DuoNeb, Pro-calcitonin level is low, We'll discontinue Rocephin, continue with azithromycin Follow up CXR in am Continue to follow I have personally seen and examined the patient, performed the documentation and the assessment and plan as written. Number of minutes spent on the visit: [10] Time with Patient: Less than 30
[2021-08-01] MEDS: guaiFENesin 600 MG TABLET.ER PO SCH ×2 (12:26→20:43)
[2021-08-01] MEDS: AZITHROMYCIN 500 MG TAB PO SCH (17:10)
[2021-08-02] MEDS: IPRATROPIUM-ALBUTEROL 3 ML NEB INHALATION SCH ×4 (07:23→20:15)
[2021-08-02] MEDS: SYMBICORT 160-4.5 MCG INHALER INHALATION SCH ×2 (07:24→20:15)
[2021-08-02] MEDS: HEPARIN SODIUM,PORCINE/PF 5,000 UNIT/0.5 ML SYRINGE SQ SCH ×2 (08:29→15:50)
[2021-08-02] MEDS: guaiFENesin 600 MG TABLET.ER PO SCH ×2 (08:29→20:44)
[2021-08-02] MEDS: predniSONE 10 MG TAB PO SCH (08:29)
--- NOTE | 2021-08-02 08:57 | XR ---
EXAMINATION TYPE: XR chest 1V portable DATE OF EXAM: 08/02/2021 COMPARISON: 07/30/2021 HISTORY: Shortness of breath TECHNIQUE: Single frontal view of the chest is obtained. FINDINGS: There is no focal air space opacity, pleural effusion, or pneumothorax seen. The cardiac silhouette size is within normal limits. The osseous structures are intact. Hyperexpansion suggests COPD. Chronic arthropathy of the shoulders. Mild chronic appearing interstitial prominence. IMPRESSION: 1. COPD, correlate for chronic interstitial lung disease.
[2021-08-02 09:39] LABS: Basophils # (A) 0.01 X 10*3/uL (0.00-0.10); Basophils % (A) 0.1 %; Eosinophils # (A) 0 X 10*3/uL (0.04-0.35); Eosinophils % (A) 0 %; HCT 37.9 % (39.6-50.0); Immature Grans, Automated 0.8 %; Lymphocytes # (A) 0.89 X 10*3/uL (0.90-5.00); Lymphocytes % (A) 12.6 %; MCH 29.3 pg (27.0-32.0); MCHC 31.7 g/dL (32.0-37.0); MCV 92.7 fL (80.0-97.0); Mean Platelet Volume 9.2 fL (9.5-12.2); Monocytes # (A) 0.77 X 10*3/uL (0.20-1.00); Monocytes % (A) 10.9 %; NRBC Per 100 WBC 0 /100 WBCS (0.0-0.0); Neutrophils # (A) 5.35 X 10*3/uL (1.80-7.70); Neutrophils % (A) 75.6 %; Platelet Count 322 X 10*3/uL (140-440); RBC 4.09 X 10*6/uL (4.40-5.60); RDW 13.4 % (11.5-14.5); WBC 7.08 X 10*3/uL (4.50-10.00)
[2021-08-02 09:48] LABS: African American GFR (CKD) 77.9 (60.0-200.0); BUN/Creat Ratio 11.18 Ratio (12.00-20.00); Blood Urea Nitrogen 12.3 mg/dL (9.0-27.0); Non-African American GFR(CKD) 67.2 (60.0-200.0); Potassium 4.6 mmol/L (3.5-5.5)
[2021-08-02] MEDS: DOXYCYCLINE 100 MG CAP PO SCH ×2 (09:49→20:44)
--- NOTE | 2021-08-02 10:18 | P.PN ---
Subjective Progress Note Date: 08/02/21 Principal diagnosis: Shortness of breath This is a very pleasant 71-year-old male patient with a history of chronic obstructive pulmonary disease, chronic tobacco dependence of greater than 30 years however he has since quit back in 2020. He is oxygen dependent on 2-3 L at home. He follows with Dr. Pérez in our office. He's been maintained on Trelegy and DuoNeb inhalations. He presented to the emergency room yesterday with complaints of shortness of breath, cough, sore throat. Chest x-ray revealed evidence of COPD and chronic changes. There was some area of infiltr ate in the left midlung. White count 7.9. Hemoglobin 13.9. Sodium 137. Potassium 4.5. BUN 14. Creatinine 1.02. Glucose 113. Reeder virus by PCR not detected. Influenza screen negative. He has been initiated on azithromycin and ceftriaxone. Continued on Symbicort and DuoNeb inhalations. He is seen today in consultation on the regular medical floor. Awake and alert in no acute distress. Maintaining good O2 saturations up to 99% on 3 L/m per nasal cannula. He's been afebrile. Hemodynamically stable. On 08/01/2021 patient seen in follow-up on medical surgical floor. Patient still states he is quite short of breath with any exertion, is difficult for him to even ambulate to the bathroom. Lung sounds are positive for scattered rhonchi, mild wheezing, vital signs have been stable patient is on 3 L of oxygen pulse ox is 98%, afebrile, hemodynamically patient has been stable, he remains on prednisone, remains on azithromycin and Rocephin, his pro-calcitonin level came back at 0.17. His chest x-ray on admission showed COPD and chronic lung changes, possibility of developing airspace infiltrate in the left midlung could not be completely excluded. He tested negative for coronary 19, influenza A and B. Patient continues on nebulized bronchodilators. On 08/02/2021 patient seen in follow-up on medical surgical floor. Patient states he is doing better, breathing easier, on 3 L of oxygen his pulse ox is 99%, her vitals have been stable, has been afebrile, blood pressure is been stable. He remains on Rocephin for empiric antibiotic coverage, his pro- calcitonin level was low at 0.17. Follow-up chest x-ray today showing COPD, mild chronic appearing interstitial prominence. he remains on prednisone 30 mg daily, and nebulized bronchodilators, no acute events overnight. Today's labs have been reviewed, white blood cell count is 7.08, hemoglobin is 12, sodium is 141, potassium is 4.6, chloride is 104, CO2 is 29, BUN is 12.3, and creatinine is 1.1. Tolerating oral intake, no nausea vomiting or diarrhea. Objective - Vital Signs Vital signs: Vital Signs Temp 97.9 F 08/02/21 07:00 Pulse 75 08/02/21 08:00 Resp 18 08/02/21 08:00 BP 116/78 08/02/21 07:00 Pulse Ox 99 08/02/21 07:00 Intake & Output 08/01/21 08/02/21 08/02/21 18:59 06:59 18:59 Intake Total 236 240 Balance 236 240 Intake: Oral 236 240 Other: Voiding Method Toilet Toilet # Voids 2 2 - Exam GENERAL EXAM: Alert, very pleasant, 71-year-old white male, on 3 L of oxygen pulse ox is 98%, comfortable in no apparent distress. HEAD: Normocephalic/atraumatic. EYES: Normal reaction of pupils, equal size. Conjunctiva pink, sclera white. NOSE: Clear with pink turbinates. THROAT: No erythema or exudates. NECK: No masses, no JVD, no thyroid enlargement, no adenopathy. CHEST: No chest wall deformity. Symmetrical expansion. LUNGS: Equal air entry with a few scattered rhonchi CVS: Regular rate and rhythm, normal S1 and S2, no gallops, no murmurs, no rubs ABDOMEN: Soft, nontender. No hepatosplenomegaly, normal bowel sounds, no guarding or rigidity. EXTREMITIES: No clubbing, no edema, no cyanosis, 2+ pulses and upper and lower extremities. MUSCULOSKELETAL: Muscle strength and tone normal. SPINE: No scoliosis or deformity SKIN: No rashes CENTRAL NERVOUS SYSTEM: Alert and oriented -3. No focal deficits, tone is normal in all 4 extremities. PSYCHIATRIC: Alert and oriented -3. Appropriate affect. Intact judgment and insight. - Labs CBC & Chem 7: 08/02/21 06:26 08/02/21 06:26 Labs: Abnormal Lab Results - Last 24 Hours (Table) 08/02/21 08/02/21 Range/Units 06:26 06:26 RBC 4.09 L (4.40-5.60) X 10*6/uL Hgb 12.0 L (13.0-17.0) g/dL Hct 37.9 L (39.6-50.0) % MCHC 31.7 L (32.0-37.0) g/dL MPV 9.2 L (9.5-12.2) fL Immature Gran # 0.06 H (0.00-0.04) X 10*3/uL Lymphocytes # 0.89 L (0.90-5.00) X 10*3/uL Eosinophils # 0 L (0.04-0.35) X 10*3/uL Carbon Dioxide 29.0 H (20.0-27.5) mmol/L Anion Gap 8.00 L (10.00-18.00) mmol/L BUN/Creatinine Ratio 11.18 L (12.00-20.00) Ratio Microbiology - Last 24 Hours (Table) 07/30/21 19:42 Blood Culture - Preliminary Blood No Growth after 48 hours 07/30/21 19:40 Blood Culture - Preliminary Blood No Growth after 48 hours Assessment and Plan Plan: Assessment: #1. Acute exacerbation of COPD, possibility of left midlung coming acquired pneumonia was considered, however procalcitonin level is low. Patient remains on empiric antibiotics for acute exacerbation of COPD #2. Chronic history of smoking greater than 40 years, in remission for the past one year #3. GERD/reflux Plan: Today's chest x-ray has been reviewed, showing chronic mild interstitial changes His Rocephin can be switched to doxycycline Continue breathing treatments and oral prednisone GI and DVT prophylaxis Increase activity as tolerated Anticipate discharge home in the next 24 hours if remains stable He will need outpatient follow-up with Dr. Bravo in the office in 7-10 days I have personally seen and examined the patient, performed the documentation and the assessment and plan as written. Number of minutes spent on the visit: [10] Time with Patient: Less than 30
--- NOTE | 2021-08-02 13:29 | P.PN ---
Subjective Patient was examined at bedside today continues complaining of some shortness of breath however slowly improving. He does require 3 L at home for COPD. Case discussed with RN present at bedside. Objective - Vital Signs Vital signs: Vital Signs Temp 97.9 F 08/02/21 07:00 Pulse 95 08/02/21 11:30 Resp 18 08/02/21 08:00 BP 116/78 08/02/21 07:00 Pulse Ox 99 08/02/21 07:00 Intake & Output 08/01/21 08/02/21 08/02/21 18:59 06:59 18:59 Intake Total 236 240 Balance 236 240 Intake: Oral 236 240 Other: Voiding Method Toilet Toilet # Voids 2 2 - Exam GENERAL EXAM: Alert, very pleasant, 71-year-old white male, on 3 L of oxygen pulse ox is 98%, comfortable in no apparent distress. HEAD: Normocephalic/atraumatic. EYES: Normal reaction of pupils, equal size. Conjunctiva pink, sclera white. NOSE: Clear with pink turbinates. THROAT: No erythema or exudates. NECK: No masses, no JVD, no thyroid enlargement, no adenopathy. CHEST: No chest wall deformity. Symmetrical expansion. LUNGS: Equal air entry with a few scattered rhonchi, b/l wheezing. CVS: Regular rate and rhythm, normal S1 and S2, no gallops, no murmurs, no rubs ABDOMEN: Soft, nontender. No hepatosplenomegaly, normal bowel sounds, no guarding or rigidity. EXTREMITIES: No clubbing, no edema, no cyanosis, 2+ pulses and upper and lower extremities. MUSCULOSKELETAL: Muscle strength and tone normal. SPINE: No scoliosis or deformity SKIN: No rashes CENTRAL NERVOUS SYSTEM: Alert and oriented -3. No focal deficits, tone is normal in all 4 extremities. PSYCHIATRIC: Alert and oriented -3. Appropriate affect. Intact judgment and insight. - Labs CBC & Chem 7: 08/02/21 06:26 08/02/21 06:26 Labs: Abnormal Lab Results - Last 24 Hours (Table) 08/02/21 08/02/21 Range/Units 06:26 06:26 RBC 4.09 L (4.40-5.60) X 10*6/uL Hgb 12.0 L (13.0-17.0) g/dL Hct 37.9 L (39.6-50.0) % MCHC 31.7 L (32.0-37.0) g/dL MPV 9.2 L (9.5-12.2) fL Immature Gran # 0.06 H (0.00-0.04) X 10*3/uL Lymphocytes # 0.89 L (0.90-5.00) X 10*3/uL Eosinophils # 0 L (0.04-0.35) X 10*3/uL Carbon Dioxide 29.0 H (20.0-27.5) mmol/L Anion Gap 8.00 L (10.00-18.00) mmol/L BUN/Creatinine Ratio 11.18 L (12.00-20.00) Ratio Microbiology - Last 24 Hours (Table) 07/30/21 19:42 Blood Culture - Preliminary Blood No Growth after 48 hours 07/30/21 19:40 Blood Culture - Preliminary Blood No Growth after 48 hours Assessment and Plan Assessment: Assessment: #1 acute exacerbation of COPD - significant wheezing and shortness of breath #2 history of tobacco dependence #3 GERD/reflux Plan: -Admit to medicine for close monitoring -Aspiration/fall precaution -Bilateral wheezing appreciated. We'll switch by mouth to IV 40 mg daily for today -IV antibiotics switched from Rocephin to doxycycline -Continue with steroids as per pulmonary -Currently maintaining 3 L nasal cannula -DVT prophylaxis heparin -Switch patient to inpatient given worsening shortness of breath, wheezing and will switch over to IV.
[2021-08-03] MEDS: HEPARIN SODIUM,PORCINE/PF 5,000 UNIT/0.5 ML SYRINGE SQ SCH ×2 (00:23→07:48)
[2021-08-03 02:38] VITALS: RESP 18
[2021-08-03 07:45] VITALS: BP 124/86; TEMP 97.9
[2021-08-03] MEDS: DOXYCYCLINE 100 MG CAP PO SCH (07:47)
[2021-08-03] MEDS: guaiFENesin 600 MG TABLET.ER PO SCH (07:48)
[2021-08-03] MEDS: IPRATROPIUM-ALBUTEROL 3 ML NEB INHALATION SCH ×2 (08:30→12:16)
[2021-08-03] MEDS: SYMBICORT 160-4.5 MCG INHALER INHALATION SCH (08:30)
[2021-08-03] MEDS ORDERED: methylPREDNISolone SOD SUCCI 40 MG/ML 1 ML VIAL IV SCH (09:00)
--- NOTE | 2021-08-03 11:16 | P.PN ---
Subjective Progress Note Date: 08/03/21 This is a very pleasant 71-year-old male patient with a history of chronic obstructive pulmonary disease, chronic tobacco dependence of greater than 30 years however he has since quit back in 2020. He is oxygen dependent on 2-3 L at home. He follows with Dr. Pérez in our office. He's been maintained on Trelegy and DuoNeb inhalations. He presented to the emergency room yesterday with complaints of shortness of breath, cough, sore throat. Chest x-ray revealed evidence of COPD and chronic changes. There was some area of infiltrate in the left midlung. White count 7.9. Hemoglobin 13.9. Sodium 137. Potassium 4.5. BUN 14. Creatinine 1.02. Glucose 113. Reeder virus by PCR not detected. Influenza screen negative. He has been initiated on azithromycin and ceftriaxone. Continued on Symbicort and DuoNeb inhalations. He is seen today in consultation on the regular medical floor. Awake and alert in no acute distress. Maintaining good O2 saturations up to 99% on 3 L/m per nasal cannula. He's been afebrile. Hemodynamically stable. On 08/01/2021 patient seen in follow-up on medical surgical floor. Patient still states he is quite short of breath with any exertion, is difficult for him to even ambulate to the bathroom. Lung sounds are positive for scattered rhonchi, mild wheezing, vital signs have been stable patient is on 3 L of oxygen pulse ox is 98%, afebrile, hemodynamically patient has been stable, he remains on prednisone, remains on azithromycin and Rocephin, his pro-calcitonin level came back at 0.17. His chest x-ray on admission showed COPD and chronic lung changes, possibility of developing airspace infiltrate in the left midlung could not be completely excluded. He tested negative for coronary 19, influenza A and B. Patient continues on nebulized bronchodilators. On 08/02/2021 patient seen in follow-up on medical surgical floor. Patient states he is doing better, breathing easier, on 3 L of oxygen his pulse ox is 99%, her vitals have been stable, has been afebrile, blood pressure is been stable. He remains on Rocephin for empiric antibiotic coverage, his pro- calcitonin level was low at 0.17. Follow-up chest x-ray today showing COPD, mild chronic appearing interstitial prominence. he remains on prednisone 30 mg daily, and nebulized bronchodilators, no acute events overnight. Today's labs have been reviewed, white blood cell count is 7.08, hemoglobin is 12, sodium is 141, potassium is 4.6, chloride is 104, CO2 is 29, BUN is 12.3, and creatinine is 1.1. Tolerating oral intake, no nausea vomiting or diarrhea. The patient is seen today 08/03/2021 in follow-up on the regular medical floor. He is currently resting quite comfortably in bed. Awake and alert in no acute distress. Maintaining O2 saturations in the 90s on 3 L/m per nasal cannula. Chest x-ray revealed evidence of COPD and some chronic interstitial lung disease. Blood cultures revealed no growth to date. He is continued on DuoNeb inhalations, Symbicort, IV Solu-Medrol. Antibiotics in the form of doxycycline. Mucinex as needed. Heparin for DVT prophylaxis. Objective - Vital Signs Vital signs: Vital Signs Temp 97.9 F 08/03/21 07:15 Pulse 100 08/03/21 08:41 Resp 18 08/03/21 07:59 BP 124/86 08/03/21 07:15 Pulse Ox 97 08/03/21 08:31 Intake & Output 08/02/21 08/03/21 08/03/21 18:59 06:59 18:59 Intake Total 476 240 Balance 476 240 Intake: Oral 476 240 Other: Voiding Method Toilet Toilet # Voids 2 2 - Exam GENERAL EXAM: Alert, pleasant, 71-year-old male patient, on 3 L of oxygen pulse ox is 97%, comfortable in no apparent distress. HEAD: Normocephalic/atraumatic. EYES: Normal reaction of pupils, equal size. Conjunctiva pink, sclera white. NOSE: Clear with pink turbinates. THROAT: No erythema or exudates. NECK: No masses, no JVD, no thyroid enlargement, no adenopathy. CHEST: No chest wall deformity. Symmetrical expansion. LUNGS: Equal air entry with a few scattered rhonchi CVS: Regular rate and rhythm, normal S1 and S2, no gallops, no murmurs, no rubs ABDOMEN: Soft, nontender. No hepatosplenomegaly, normal bowel sounds, no guarding or rigidity. EXTREMITIES: No clubbing, no edema, no cyanosis, 2+ pulses and upper and lower extremities. MUSCULOSKELETAL: Muscle strength and tone normal. SPINE: No scoliosis or deformity SKIN: No rashes CENTRAL NERVOUS SYSTEM: No focal deficits, tone is normal in all 4 extremities. PSYCHIATRIC: Alert and oriented -3. Appropriate affect. Intact judgment and insight. - Labs CBC & Chem 7: 08/02/21 06:26 08/02/21 06:26 Labs: Microbiology - Last 24 Hours (Table) 07/30/21 19:42 Blood Culture - Preliminary Blood No Growth after 72 hours 07/30/21 19:40 Blood Culture - Preliminary Blood No Growth after 72 hours Assessment and Plan Assessment: 1 Acute exacerbation of chronic obstructive pulmonary disease with possible left midlung community-acquired pneumonia. Pro calcitonin 0.17. Chest x-ray revealed COPD with chronic interstitial changes but no acute pneumonia 2 Chronic tobacco dependence of greater than 40 years however quit 1 year ago 3 Gastroesophageal reflux disease Plan: The patient was seen and evaluated Medications reviewed Stable and cleared for discharge from the pulmonary standpoint Continue home Trelegy, DuoNeb inhalations Complete a prednisone taper Complete a course of doxycycline Follow up with Dr. Pérez in 1-2 weeks' I have personally seen and examined the patient, performed the documentation and the assessment and plan as written. Number of minutes spent on the visit: 10.
[2021-08-03 12:28] VITALS: PULSE 95
--- NOTE | 2021-08-03 14:38 | P.DS ---
Providers Date of admission: 08/02/21 13:29 Attending physician: Maribel Mcgraw MD Consults: 07/30/21 18:53 Consult Physician Routine Consulting Provider: Arina Pérez Consult Reason/Comments: copd exacerbation Do you want consulting provider notified?: Yes Primary care physician: Sarah Rocha MD Hospital Course: Patient is a 71-year-old male with PMH of COPD on 3 L NC at home that presents the ED for shortness of breath that has been progressively getting worse over the past 2 days. He also reports a cough productive of sputum. He is unable to describe the sputum effectively. Patient reports a history of smoking but quit in 2000. He denies any headache, lower stomach edema, nausea vomiting, fever or chills, chest pain, palpitations, changes in urination or bowel habits. No ch anges in appetite or weight. He denies any dizziness, numbness/weakness/tingling of the extremities. In the ED, his vital signs are stable on 3 L nasal cannula. CBC showed lymphocyte count of 0.5. CMP showed glucose of 113. COVID-19 negative. Flu negative. Chest x-ray showed signs of COPD and chronic lung changes. Patient is admitted for COPD exacerbation. during the hospital stay the patient is a probably started on antimicrobials for COPD exacerbation including steroids. Patient is doing extremely well compared to the admission. Chest and she was also reviewed and followed with the electronics lead on board. At this time patient's vital signs are stable continues to require supplemental oxygen which is his home baseline.today vital signs are stable saturating 97% on 3 L nasal cannula pulse of 95.patient on physical examination wheezing and rhonchi improved dramatically compared to yesterday he is doing well in good spirits.at this time the patient is okay to discharge from pulmonary perspective. We are going to be discontinuing IV steroids and transitioning over to prednisone by mouth. I have left a tapering dose of prednisone 30 mg, 20 mg and 10 mg to be completed 3 days respectively. We also discharge patient on doxycycline to complete 5 more days 100 mg daily. everything has been communicated to the RN as well as the patient and agreeable and will be sent home on discharge as per case management. Patient Condition at Discharge: Serious Plan - Discharge Summary New Discharge Prescriptions: New Budesonide-Formot 160-4.5 Mcg [Symbicort 160-4.5 Mcg Inhaler] 2 puff INHALATION RT-BID 30 Days #30 gm predniSONE 0 mg PO DIRECTED 12 Days #24 tab Doxycycline [Vibramycin] 100 mg PO BID 9 Days #18 capsule Continue Multivitamins, Thera [Multivitamin (formulary)] 1 tab PO DAILY Ipratropium-Albuterol Nebulize [Duoneb 0.5 mg-3 mg/3 ml Soln] 3 ml INHALATION RT-QID PRN PRN Reason: Shortness Of Breath Fluticasone/Umeclidin/Vilanter [Trelegy Ellipta 100-62.5-25] 1 puff INHALATION RT-DAILY Diclofenac Sodium Gel [Voltaren Gel] 1 applic TOPICAL QID PRN PRN Reason: Pain Discharge Medication List Multivitamins, Thera [Multivitamin (formulary)] 1 tab PO DAILY 01/22/20 [History] Diclofenac Sodium Gel [Voltaren Gel] 1 applic TOPICAL QID PRN 07/30/21 [History] Fluticasone/Umeclidin/Vilanter [Trelegy Ellipta 100-62.5-25] 1 puff INHALATION RT-DAILY 07/30/21 [History] Ipratropium-Albuterol Nebulize [Duoneb 0.5 mg-3 mg/3 ml Soln] 3 ml INHALATION RT-QID PRN 07/30/21 [History] Budesonide-Formot 160-4.5 Mcg [Symbicort 160-4.5 Mcg Inhaler] 2 puff INHALATION RT-BID 30 Days #30 gm 08/03/21 [Rx] Doxycycline [Vibramycin] 100 mg PO BID 9 Days #18 capsule 08/03/21 [Rx] predniSONE 0 mg PO DIRECTED 12 Days #24 tab 08/03/21 [Rx] Follow up Appointment(s)/Referral(s): Luis M Bravo DO [Doctor of Osteopathic Medicine] - 1 Week Sarah Rocha MD [Primary Care Provider] - 1-2 days Discharge Disposition: HOME SELF-CARE
== END 2021-08-03 15:20 | disposition home or self-care (01) | DRG 190 ==
LOC: EC 14:38 → 6NMEDSUR 18:53 → OBSVTOIN 08-02 13:29
PROVIDERS: ADMIT Family Medicine; ATTEND Family Medicine
DX: J44.1 Chronic obstructive pulmonary disease with (acute) exacerbation (principal); J44.0 Chronic obstructive pulmonary disease with (acute) lower respiratory infection; J18.9 Pneumonia, unspecified organism; J96.10 Chronic respiratory failure, unspecified whether with hypoxia or hypercapnia; K21.9 Gastro-esophageal reflux disease without esophagitis; Z20.822 Contact with and (suspected) exposure to COVID-19; F40.240 Claustrophobia; F17.210 Nicotine dependence, cigarettes, uncomplicated; Y95 Nosocomial condition; Z99.81 Dependence on supplemental oxygen
CPT/HCPCS: 36415; 71045; 71046; 80048; 83605; 83735; 84145; 85025; 87040; 87502; 87635; 94640; 94760; 96361; 96365; 96375; 99284

== ENCOUNTER → 2021-09-21 | Outpatient (CLI) | payer MEDICARE ==
--- NOTE | 2021-09-24 07:17 | MR ---
EXAMINATION TYPE: MR Prostate wo/w con DATE OF EXAM: 09/21/2021 COMPARISON: None. INDICATION: Prostate cancer. PSA & biopsy results scanned in PACS. PSA: 4.20 ng/ml on June 18, 2021 Recent Biopsy and Date: September 22, 2020 Pathology Report (If Applicable): Right lateral mid biopsy focal high-grade prostatic intraepithelial neoplasia. Left lateral base adenocarcinoma [place] grade 3+4 = 7, 10% of tissue measuring 1 mm in length. Left lateral apex focal high-grade prostatic intraepithelial neoplasia. TECHNIQUE: Examination was performed using a 3T MRI without an endorectal coil. Multiparametric imaging was perf ormed with T2 mutliplanar sequences, axial diffusion weighted imaging and dynamic contrast enhanced i maging, utilizing 5 mL intravenous Gadavist gadolinium contrast. FINDINGS: There is no clinically significant cancer identified. PROSTATE VOLUME: 4.1 cm SI x 3.5 cm AP x 5.2 cm LR Vol= 39.07 cc Predicted PSA equals 4.69 PSA DENSITY: 0.11 ng/ml/cc Slightly enlarged prostate gland consistent with BPH. The peripheral zone shows diffuse mild hypointe nsity on the T2 weighted images slightly more prominent on the left. More prominent 7 mm focal hetero geneous diminished signal left prostate mid level posteriorly axial image 19 has slightly diminished signal on ADC mapping with increased signal on diffusion-weighted imaging at or near this level. Central transitional zone shows heterogeneity without suspicious nodules or restricted diffusion. Pro state capsule is maintained. Seminal vesicles appear within normal limits. Bladder shows mild diffuse trabeculation. Sigmoid colonic diverticulosis is present. No suspicious bowel dilatation. Visualized osseous structu res are intact. IMPRESSION: Enlarged prostate consistent with BPH. Indeterminate lesion left prostate peripheral zone mid level. Highest Assessment Category: 3 MRI Stage: T 1c N0 M0 based on review of pelvic images. False negative rates for MRI range from 5-20% depending on risk profile. Assessment Categories: 1 ? Very low (clinically significant cancer is highly unlikely to be present) 2 ? Low (clinically significant cancer is unlikely to be present) 3 ? Intermediate (the presence of clinically significant cancer is equivocal) 4 ? High (clinically significant cancer is likely to be present) 5 ? Very high (clinically significant cancer is highly likely to be present)
== END | disposition home or self-care (01) ==
LOC: RADMRIMAIN 11:17
PROVIDERS: ATTEND Urology
DX: C61 Malignant neoplasm of prostate (principal); N40.0 Benign prostatic hyperplasia without lower urinary tract symptoms
CPT/HCPCS: 72197; A9585

== ENCOUNTER → 2021-11-20 | Outpatient (CLI) | payer MEDICARE ==
[2021-11-20 11:42] LABS: HGB 13.7 g/dL (13.0-17.0); MCH 29.7 pg (27.0-32.0); MCHC 31.9 g/dL (32.0-37.0); MCV 93.1 fL (80.0-97.0); Mean Platelet Volume 9.3 fL (9.5-12.2); NRBC Per 100 WBC 0 /100 WBCS (0.0-0.0); Platelet Count 293 X 10*3/uL (140-440); RBC 4.62 X 10*6/uL (4.40-5.60); RDW 12.3 % (11.5-14.5); WBC 5.89 X 10*3/uL (4.50-10.00)
[2021-11-20 12:02] LABS: ALT 15 U/L (10-49); AST 22 U/L (14-35); African American GFR (CKD) 85.3 (60.0-200.0); BUN/Creat Ratio 16.57 Ratio (12.00-20.00); Blood Urea Nitrogen 16.9 mg/dL (9.0-27.0); Calcium 9.8 mg/dL (8.7-10.3); Chloride 106 mmol/L (96-109); Chol/HDL Ratio 3.88 Ratio; Glucose 108 mg/dL (70-110); LDL Cholesterol,Calculated 141.1 mg/dL (0.0-131.0); Non-African American GFR(CKD) 73.6 (60.0-200.0); Potassium 4.6 mmol/L (3.5-5.5); Sodium 143 mmol/L (135-145)
== END | disposition home or self-care (01) ==
LOC: LABWHC1 08:12
PROVIDERS: ATTEND Internal Medicine Cardiovascular Disease
DX: E78.2 Mixed hyperlipidemia (principal)
CPT/HCPCS: 36415; 80048; 80061; 84443; 84450; 84460; 85027

== ENCOUNTER → 2021-12-17 | Outpatient (CLI) | payer MEDICARE | END | disposition home or self-care (01) | LOC: LABWHC1 07:12 | PROVIDERS: ATTEND Urology | DX: C61 Malignant neoplasm of prostate (principal) | CPT/HCPCS: 36415; 84153 ==

== ENCOUNTER → 2022-01-03 | Outpatient (CLI) | payer MEDICARE ==
--- NOTE | 2022-01-03 09:32 | CT ---
EXAMINATION TYPE: CT chest w con DATE OF EXAM: 01/03/2022 COMPARISON: CTA chest May 13, 2020 and older CTs 2018. Chest x-ray December 23, 2021 HISTORY: abn lung field CT DLP: 141.4 mGycm. Automated Exposure Control for Dose Reduction was Utilized. TECHNIQUE: CT scan of the thorax is performed following with IV Contrast, patient injected with 70 m L of Isovue 300. FINDINGS: LUNGS: Moderate to advanced underlying emphysematous changes redemonstrated. Stable roughly 7 mm calc ified left lower lobe nodule or benign granuloma axial image 44. Mild bibasilar linear scarring and/o r atelectasis redemonstrated. No focal consolidation or groundglass opacity. No pleural effusion or p neumothorax seen bilaterally. MEDIASTINUM: There are no greater than 1 cm noncalcified hilar or mediastinal lymph nodes. Prominent calcified left hilar lymph nodes redemonstrated. No cardiomegaly is seen. Stable tiny pericardial effusion anteriorly. Prominent pulmonary artery particular left pulmonary artery redemonstrated. Mil d to moderate mixed plaque in the aorta OTHER: Scattered calcifications throughout the spleen. IMPRESSION: Moderate to advanced underlying emphysematous change redemonstrated with mild bibasilar l inear scarring and/or atelectasis. Evidence of old granulomatous disease. No acute pulmonary process. No significant change from most recent CT.
== END | disposition home or self-care (01) ==
LOC: RADCTMAIN 07:35
PROVIDERS: ATTEND Internal Medicine
DX: J43.9 Emphysema, unspecified (principal)
CPT/HCPCS: 82565; 84520; 71260; 36415; Q9967

== ENCOUNTER 2022-01-10 11:46 | Day surgery (SDC) | payer MEDICARE ==
[~2022-01-10 11:46] MED LIST changes: -LACTATED RINGERS 1,000 ML IV SCH; +SODIUM CHLORIDE 0.9% 1,000 ML IV SCH
[2022-01-10 12:16] VITALS: PULSE 107; TEMP 98
[2022-01-10 14:38] VITALS: BP 140/67; RESP 16
--- NOTE | 2022-01-12 10:48 | P.EPPROC ---
- EP Procedure Note Electrophysiology Procedure Note: Diagnosis Recurrent syncope Baseline 12-lead EKG shows Sinus mechanism 99 beats a minute normal ER normal QRS normal ST segments Normal QT interval No delta waves Tilt table test a protocol Baseline blood pressure 131/76. His mercury, Baseline heart rate 94 beats a minute Patient was tilted upright at an angle of 70 per protocol Mild increase in heart rate to 110 beats a minute in the first 10 minutes Normal blood pressure response Thereafter the heart rate remained in that range No neurocardiogenic syncope No evidence for dysautonomia No syncope No complaints Any is laid supine his heart rate decreased slightly 205 beats a minute Impression Known coronary EKG No evidence for neurocardiogenic syncope or dysautonomia
== END 2022-01-10 14:22 | disposition home or self-care (01) ==
LOC: CATHEP 11:46
PROVIDERS: ATTEND Internal Medicine Clinical Cardiac Electrophysiology
DX: R55 Syncope and collapse (principal); J44.9 Chronic obstructive pulmonary disease, unspecified; K21.9 Gastro-esophageal reflux disease without esophagitis; F17.210 Nicotine dependence, cigarettes, uncomplicated; Z82.49 Family history of ischemic heart disease and other diseases of the circulatory system
CPT/HCPCS: 93660

== ENCOUNTER 2022-02-20 11:12 | Emergency (ER) | payer MEDICARE, OTHER ==
[2022-02-20] MEDS ORDERED: ALBUTEROL NEBULIZED 2.5 MG/3 ML INHALATION STA (11:45)
--- NOTE | 2022-02-20 11:52 | ED ---
General Adult HPI - General Chief complaint: Shortness of Breath Stated complaint: COPD Time Seen by Provider: 02/20/22 11:40 Source: patient Mode of arrival: ambulatory Limitations: no limitations - History of Present Illness Initial comments: 72-year-old male with PMH of COPD coming in for worsening shortness of breath x 3 days. Patient admits to history of COPD. He was seen at urgent care and was sent told to come to the ED to be evaluated. He admits to accompanied symptoms of palpitations, cough, and shortness of breath. He has tried at home nebulizer treatments for his symptoms. Pt uses 2L oxygen at home. He denies fever, chest pain, nausea, vomiting, diarrhea. Denies recent sick contacts, recent travel, tobacco use, hx of PE. - Related Data Home Medications Medication Instructions Recorded Confirmed Multivitamins, Thera [Multivitamin 1 tab PO DAILY 01/22/20 01/06/22 (formulary)] Diclofenac Sodium Gel [Voltaren 1 applic TOPICAL QID PRN 07/30/21 01/06/22 Gel] Ipratropium-Albuterol Nebulize 3 ml INHALATION RT-QID PRN 07/30/21 01/06/22 [Duoneb 0.5 mg-3 mg/3 ml Soln] Fluticasone Propion/Salmeterol 1 each INHALATION Q12HR PRN 01/06/22 01/06/22 [Fluticasone-Salmeterol 250-50] predniSONE See Taper PO DIRECTED 01/06/22 01/06/22 Previous Rx's Medication Instructions Recorded methylPREDNISolone Dose Pack 4 mg PO DIRECTED #21 tab 02/20/22 [Medrol Dose Pack] Allergies Allergy/AdvReac Type Severity Reaction Status Date / Time No Known Allergies Allergy Verified 02/20/22 11:32 Review of Systems ROS Statement: Those systems with pertinent positive or pertinent negative responses have been documented in the HPI. ROS Other: All systems not noted in ROS Statement are negative. Past Medical History Past Medical History: COPD, GERD/Reflux Additional Past Medical History / Comment(s): positional upper abdominal pain stated when he changes position from laying to sitting and standing. History of Any Multi-Drug Resistant Organisms: None Reported Past Surgical History: Orthopedic Surgery, Tonsillectomy Additional Past Surgical History / Comment(s): Right shoulder arthroscopy. Colonoscopy. EGD Past Anesthesia/Blood Transfusion Reactions: No Reported Reaction Additional Past Anesthesia/Blood Transfusion Reaction / Comment(s): Pt has CLAUSTROPHOBIA Past Psychological History: No Psychological Hx Reported Smoking Status: Former smoker Past Alcohol Use History: None Reported Past Drug Use History: None Reported - Past Family History Father Family Medical History: Cancer Mother Family Medical History: Cancer Additional Family Medical History / Comment(s): Mother in her 50s with some form of cancer. Pt/spouse do not recall type of cancer. General Exam Limitations: no limitations General appearance: alert Head exam: Present: atraumatic, normocephalic, normal inspection Eye exam: Present: normal appearance, PERRL, EOMI. Absent: scleral icterus, conjunctival injection, periorbital swelling ENT exam: Present: normal exam, mucous membranes moist Neck exam: Present: normal inspection. Absent: tenderness, meningismus, lymphadenopathy Respiratory exam: Present: wheezes Cardiovascular Exam: Present: tachycardia GI/Abdominal exam: Present: soft, normal bowel sounds. Absent: distended, tenderness, guarding, rebound Skin exam: Present: warm, dry, intact, normal color. Absent: rash Course Vital Signs 02/20/22 02/20/22 02/20/22 11:29 11:45 11:49 Temperature 98.2 F Pulse Rate 131 H 104 H Respiratory 32 H 24 24 Rate Blood Pressure 144/77 127/82 O2 Sat by Pulse 89 L 99 Oximetry 02/20/22 02/20/22 12:49 13:09 Temperature Pulse Rate 96 105 H Respiratory 22 Rate Blood Pressure 105/84 O2 Sat by Pulse 99 Oximetry - Reevaluation(s) Reevaluation #1: 02/20/22 13:28 pt re-evaluated s/p breathing treatment, symptoms improved. Updated awaiting lab results. EKG Findings - EKG Comments: EKG Findings:: Rate 104 bpm, sinus tachycardia. NE 129. QRS 78 Medical Decision Making - Medical Decision Making 72 male complaining of SOB. Pt had CXR and labwork performed in the ED. I interpreted the following: CXR negative for acute process, with COPD changes. Labs remarkable for WBC 5.3, D-dimer 0.96, CMP unremarkable, COVID negative. I interpreted the CTA result negative for pulmonary embolism, although there is pulmonary emphysema no acute changes. Pt was given Duoneb with symptomatic improvement in the ED. Case discussed with Dr. Oneal. - Lab Data Result diagrams: 02/20/22 12:14 02/20/22 12:14 Lab Results 02/20/22 1202/20/22 Range/Units 12:14 12:14 12:14 WBC 5.3 (3.8-10.6) k/uL RBC 4.76 (4.30-5.90) m/uL Hgb 14.5 (13.0-17.5) gm/dL Hct 42.5 (39.0-53.0) % MCV 89.4 (80.0-100.0) fL MCH 30.5 (25.0-35.0) pg MCHC 34.1 (31.0-37.0) g/dL RDW 13.4 (11.5-15.5) % Plt Count 201 (150-450) k/uL MPV 7.4 Neutrophils % 67 % Lymphocytes % 15 % Monocytes % 10 % Eosinophils % 3 % Basophils % 2 % Neutrophils # 3.5 (1.3-7.7) k/uL Lymphocytes # 0.8 L (1.0-4.8) k/uL Monocytes # 0.5 (0-1.0) k/uL Eosinophils # 0.2 (0-0.7) k/uL Basophils # 0.1 (0-0.2) k/uL D-Dimer 0.96 H (<0.60) mg/L FEU Sodium 141 (137-145) mmol/L Potassium 4.6 (3.5-5.1) mmol/L Chloride 104 (98-107) mmol/L Carbon Dioxide 30 (22-30) mmol/L Anion Gap 7 mmol/L BUN 14 (9-20) mg/dL Creatinine 1.13 (0.66-1.25) mg/dL Est GFR (CKD-EPI)AfAm 75 (>60 ml/min/1.73 sqM) Est GFR (CKD-EPI)NonAf 65 (>60 ml/min/1.73 sqM) Glucose 100 H (74-99) mg/dL Calcium 9.3 (8.4-10.2) mg/dL Total Bilirubin 0.4 (0.2-1.3) mg/dL AST 36 (17-59) U/L ALT 19 (4-49) U/L Alkaline Phosphatase 67 (38-126) U/L Troponin I (0.000-0.034) ng/mL Total Protein 6.8 (6.3-8.2) g/dL Albumin 4.3 (3.5-5.0) g/dL Coronavirus (PCR) (Not Detectd) 02/20/22 02/20/22 Range/Units 12:14 12:14 WBC (3.8-10.6) k/uL RBC (4.30-5.90) m/uL Hgb (13.0-17.5) gm/dL Hct (39.0-53.0) % MCV (80.0-100.0) fL MCH (25.0-35.0) pg MCHC (31.0-37.0) g/dL RDW (11.5-15.5) % Plt Count (150-450) k/uL MPV Neutrophils % % Lymphocytes % % Monocytes % % Eosinophils % % Basophils % % Neutrophils # (1.3-7.7) k/uL Lymphocytes # (1.0-4.8) k/uL Monocytes # (0-1.0) k/uL Eosinophils # (0-0.7) k/uL Basophils # (0-0.2) k/uL D-Dimer (<0.60) mg/L FEU Sodium (137-145) mmol/L Potassium (3.5-5.1) mmol/L Chloride (98-107) mmol/L Carbon Dioxide (22-30) mmol/L Anion Gap mmol/L BUN (9-20) mg/dL Creatinine (0.66-1.25) mg/dL Est GFR (CKD-EPI)AfAm (>60 ml/min/1.73 sqM) Est GFR (CKD-EPI)NonAf (>60 ml/min/1.73 sqM) Glucose (74-99) mg/dL Calcium (8.4-10.2) mg/dL Total Bilirubin (0.2-1.3) mg/dL AST (17-59) U/L ALT (4-49) U/L Alkaline Phosphatase (38-126) U/L Troponin I <0.012 (0.000-0.034) ng/mL Total Protein (6.3-8.2) g/dL Albumin (3.5-5.0) g/dL Coronavirus (PCR) Not Detected (Not Detectd) Disposition Clinical Impression: Acute exacerbation of chronic bronchitis, COPD exacerbation Disposition: HOME SELF-CARE Condition: Stable Instructions (If sedation given, give patient instructions): Chronic Bronchitis (ED) Additional Instructions: Return to the ED if worsening cough or shortness of breath. Prescriptions: methylPREDNISolone Dose Pack [Medrol Dose Pack] 4 mg PO DIRECTED #21 tab Is patient prescribed a controlled substance at d/c from ED?: No Referrals: Maico Anders MD [Primary Care Provider] - 1-2 days Time of Disposition: 15:07
[2022-02-20] MEDS ORDERED: IPRATROPIUM-ALBUTEROL 3 ML NEB INHALATION STA (12:05)
--- NOTE | 2022-02-20 12:06 | XR ---
EXAMINATION TYPE: XR chest 2V DATE OF EXAM: 02/20/2022 12:01 PM COMPARISON: Chest radiographs from 08/02/2021 TECHNIQUE: XR chest 2V Frontal and lateral views of the chest. CLINICAL INDICATION:Male, 72 years old with history of SOB; FINDINGS: Lungs/Pleura: There is flattening of the diaphragm with increased lucency of the lungs. No evidence o f pneumothorax, pleural effusion or focal consolidation. Pulmonary vascularity: Unremarkable. Heart/mediastinum: Cardiomediastinal silhouette is unremarkable. Musculoskeletal: No acute osseous pathology. IMPRESSION: 1. No acute cardiopulmonary disease process. 2. COPD changes.
[2022-02-20 12:36] LABS: Albumin 4.3 g/dL (3.5-5.0); Calcium 9.3 mg/dL (8.4-10.2); Potassium 4.6 mmol/L (3.5-5.1); Total Bilirubin 0.4 mg/dL (0.2-1.3); Total Protein 6.8 g/dL (6.3-8.2)
[2022-02-20 13:12] LABS: Basophils # (A) 0.1 k/uL (0-0.2); Basophils % (A) 2 %; Eosinophils # (A) 0.2 k/uL (0-0.7); Eosinophils % (A) 3 %; HCT 42.5 % (39.0-53.0); HGB 14.5 gm/dL (13.0-17.5); Lymphocytes # (A) 0.8 k/uL (1.0-4.8); Lymphocytes % (A) 15 %; MCH 30.5 pg (25.0-35.0); MCHC 34.1 g/dL (31.0-37.0); MCV 89.4 fL (80.0-100.0); Mean Platelet Volume 7.4; Monocytes # (A) 0.5 k/uL (0-1.0); Monocytes % (A) 10 %; Neutrophils # (A) 3.5 k/uL (1.3-7.7); Neutrophils % (A) 67 %; Platelet Count 201 k/uL (150-450); RBC 4.76 m/uL (4.30-5.90); RDW 13.4 % (11.5-15.5); WBC 5.3 k/uL (3.8-10.6)
--- NOTE | 2022-02-20 15:01 | CT ---
EXAMINATION TYPE: CT chest angio for PE DATE OF EXAM: 02/20/2022 COMPARISON: 12/31/2020 HISTORY: Difficulty in breathing CT DLP: 232.3 mGycm Automated exposure control for dose reduction was used. CONTRAST: Performed with IV Contrast, patient injected with 59 mL of Isovue 370. Images obtained from the thoracic inlet to the diaphragm with the IV contrast. There are Three-D post processed images. There is diffuse pulmonary emphysema. There is no mediastinal adenopathy. Thoracic aorta is intact. N o aneurysm. Heart size is normal. No pericardial effusion. There are no hilar masses. There is normal contrast opacification of the pulmonary arteries. No filling defect. No pleural effusion. There are calcified splenic granulomata. The thoracic spine is intact. No compression fracture. Sternum is intact. No evidence of rib fracture . IMPRESSION: There is pulmonary emphysema. No evidence of pulmonary embolism. No suspicious pulmonary mass. There are some mild scarring and subsegmental atelectasis at the right lung base. No significant change com pared to old exam.
[2022-02-20 15:33] VITALS: RESP 20
[2022-02-20 15:35] VITALS: BP 131/76; PULSE 98; TEMP 98.9
== END 2022-02-20 15:33 | disposition home or self-care (01) ==
LOC: EC 11:12
DX: J44.1 Chronic obstructive pulmonary disease with (acute) exacerbation (principal); Z87.891 Personal history of nicotine dependence; Z20.822 Contact with and (suspected) exposure to COVID-19
CPT/HCPCS: 36415; 94640; 93005; 85379; 80053; 84484; 85025; 87635; 71046; 71275; 99285; Q9967

== ENCOUNTER 2022-07-16 10:58 | Inpatient (IN) | payer MEDICARE, OTHER ==
[2022-07-16] MEDS ORDERED: IPRATROPIUM-ALBUTEROL 3 ML NEB INHALATION STA (11:35)
[2022-07-16 11:55] LABS: Basophils # (A) 0.1 k/uL (0-0.2); Basophils % (A) 1 %; Eosinophils # (A) 0.4 k/uL (0-0.7); Eosinophils % (A) 7 %; HCT 44.1 % (39.0-53.0); HGB 14.4 gm/dL (13.0-17.5); Lymphocytes # (A) 1.3 k/uL (1.0-4.8); Lymphocytes % (A) 20 %; MCH 29.2 pg (25.0-35.0); MCHC 32.7 g/dL (31.0-37.0); MCV 89.2 fL (80.0-100.0); Mean Platelet Volume 6.9; Monocytes # (A) 0.4 k/uL (0-1.0); Monocytes % (A) 6 %; Neutrophils # (A) 4.1 k/uL (1.3-7.7); Neutrophils % (A) 65 %; Platelet Count 248 k/uL (150-450); RBC 4.95 m/uL (4.30-5.90); RDW 13.3 % (11.5-15.5); WBC 6.3 k/uL (3.8-10.6)
--- NOTE | 2022-07-16 11:56 | XR ---
EXAMINATION TYPE: XR chest 2V DATE OF EXAM: 07/16/2022 11:50 AM COMPARISON: Chest radiographs from 05/16/2022 TECHNIQUE: XR chest 2V Frontal and lateral views of the chest. CLINICAL INDICATION:Male, 72 years old with history of difficulty breathing; FINDINGS: Lungs/Pleura: Increased opacities are seen in left midlung. Prominent interstitial lung markings are seen scattered throughout the lungs with flattening of the diaphragm and increased lucency of the ki g apices. No evidence of focal consolidation, pneumothorax or pleural effusion. Pulmonary vascularity: Unremarkable. Heart/mediastinum: Cardiomediastinal silhouette is unremarkable. Musculoskeletal: No acute osseous pathology. IMPRESSION: 1. Left midlung increased airspace opacities compared to prior correlate for pneumonia. 2. COPD and chronic interstitial lung changes.
[2022-07-16 12:08] LABS: Calcium 9.2 mg/dL (8.4-10.2); Potassium 4.1 mmol/L (3.5-5.1); Total Bilirubin 0.5 mg/dL (0.2-1.3); Total Protein 6.4 g/dL (6.3-8.2)
--- NOTE | 2022-07-16 12:43 | ED ---
General Adult HPI - General Chief complaint: Shortness of Breath Stated complaint: PIERCE Time Seen by Provider: 07/16/22 11:18 Source: patient, RN notes reviewed Mode of arrival: wheelchair Limitations: no limitations - History of Present Illness Initial comments: 72-year-old male presents to the emergency department chief complaint breathing. Patient states that his been going on for about 2 weeks but worsened this morning. He states that he has been taking prednisone 5 mg and azithromycin 250mg for the past 30 days. He also reports cough. Denies aggravating and alleviating factors. Denies fever. Denies lower extremity edema. Past medical history includes COPD and type 2 diabetes. - Related Data Home Medications Medication Instructions Recorded Confirmed Multivitamins, Thera [Multivitamin 1 tab PO DAILY 01/22/20 05/16/22 (formulary)] Ipratropium-Albuterol Nebulize 3 ml INHALATION RT-TID 07/30/21 05/16/22 [Duoneb 0.5 mg-3 mg/3 ml Soln] Albuterol Inhaler [Ventolin Hfa 2 puff INHALATION RT-Q6H PRN 05/16/22 05/16/22 Inhaler] Omeprazole 20 mg PO DAILY 05/16/22 05/16/22 Previous Rx's Medication Instructions Recorded Doxycycline Hyclate 100 mg PO BID 1 Days #20 tab 05/16/22 predniSONE [Deltasone] 20 mg PO BID #10 tab 05/16/22 Allergies Allergy/AdvReac Type Severity Reaction Status Date / Time No Known Allergies Allergy Verified 07/16/22 11:09 Review of Systems ROS Statement: Those systems with pertinent positive or pertinent negative responses have been documented in the HPI. ROS Other: All systems not noted in ROS Statement are negative. Past Medical History Past Medical History: COPD, GERD/Reflux Additional Past Medical History / Comment(s): positional upper abdominal pain stated when he changes position from laying to sitting and standing. History of Any Multi-Drug Resistant Organisms: None Reported Past Surgical History: Orthopedic Surgery, Tonsillectomy Additional Past Surgical History / Comment(s): Right shoulder arthroscopy. Colonoscopy. EGD Past Anesthesia/Blood Transfusion Reactions: No Reported Reaction Additional Past Anesthesia/Blood Transfusion Reaction / Comment(s): Pt has CLAUSTROPHOBIA Past Psychological History: No Psychological Hx Reported Smoking Status: Former smoker Past Alcohol Use History: None Reported Past Drug Use History: None Reported - Past Family History Father Family Medical History: Cancer Mother Family Medical History: Cancer Additional Family Medical History / Comment(s): Mother in her 50s with some form of cancer. Pt/spouse do not recall type of cancer. General Exam Limitations: no limitations Head exam: Present: atraumatic, normocephalic, normal inspection Eye exam: Present: normal appearance, PERRL, EOMI. Absent: scleral icterus, conjunctival injection, periorbital swelling ENT exam: Present: normal exam, mucous membranes moist Neck exam: Present: normal inspection. Absent: tenderness, meningismus, lymphadenopathy Respiratory exam: Present: wheezes Cardiovascular Exam: Present: normal rhythm, tachycardia Neurological exam: Present: alert, oriented X3 Psychiatric exam: Present: normal affect, normal mood Skin exam: Present: warm, dry, intact, normal color. Absent: rash Course Vital Signs 07/16/22 07/16/22 07/16/22 11:07 11:09 13:14 Temperature 97.9 F Pulse Rate 111 H 112 H 87 Respiratory 20 24 Rate Blood Pressure 111/78 122/84 O2 Sat by Pulse 96 97 Oximetry 07/16/22 13:15 Temperature Pulse Rate 76 Respiratory 20 Rate Blood Pressure 124/78 O2 Sat by Pulse Oximetry Medical Decision Making - Medical Decision Making Was pt. sent in by a medical professional or institution (KALEN Caraballo, LIGHT EQUIPMENT OPERATOR, urgent care, hospital, or skilled nursing...) When possible be specific @ -No Did you speak to anyone other than the patient for history (EMS, parent, family, police, friend...)? What history was obtained from this source @ -No Did you review nursing and triage notes (agree or disagree)? Why? @ -I reviewed and agree with nursing and triage notes Were old charts reviewed (outside hosp., previous admission, EMS record, old EKG, old radiological studies, urgent care reports/EKG's, skilled nursing records)? Report findings @ -No old charts were reviewed Differential Diagnosis (chest pain, altered mental status, abdominal pain women, abdominal pain men, vaginal bleeding, weakness, fever, dyspnea, syncope, headache, dizziness, GI bleed, back pain, seizure, CVA, palpatations, mental health, musculoskeletal)? @ -Differential Dyspnea: Coronary syndrome, arrhythmia, tamponade, asthma, COPD, pulmonary embolism, pneumonia, pneumothorax, pulmonary effusion, anaphylaxis, diabetic ketoacidosis, flailed chest, pulmonary contusion, diaphragmatic rupture, anemia, neuromuscular, this is not meant to be an all-inclusive list. EKG interpreted by me (3pts min.). @ -EKG at 1116 shows sinus tachycardia rate 107, TN 135, QRS 79, QTQTc [id number] X-rays interpreted by me (1pt min.). @ -Chest x-ray shows left midlung increased airspace opacities compared to prior, COPD and chronic lung interstitial changes CT interpreted by me (1pt min.). @ -CT chest angiogram showed no evidence of PE, severe centrilobular emphysema U/S interpreted by me (1pt. min.). @ -None done What testing was considered but not performed or refused? (CT, X-rays, U/S, labs)? Why? @ -None What meds were considered but not given or refused? Why? @ -None Did you discuss the management of the patient with other professionals (professionals i.e. , PA, LIGHT EQUIPMENT OPERATOR, lab, RT, psych nurse, social studies teacher, military lawyer, teacher, court registry officer, upper caser)? Give summary @ -Case discussed with Dr. Barlow who is accepting the admission Was smoking cessation discussed for >3mins.? @ -No Was critical care preformed (if so, how long)? @ -No Were there social determinants of health that impacted care today? How? (Homelessness, low income, unemployed, alcoholism, drug addiction, transportation, low edu. Level, literacy, decrease access to med. care, penitentiary, rehab)? @ -No Was there de-escalation of care discussed even if they declined (Discuss DNR or withdrawal of care, Hospice)? DNR status @ -No What co-morbidities impacted this encounter? (DM, HTN, Smoking, COPD, CAD, Cancer, CVA, ARF, Chemo, Hep., AIDS, mental health diagnosis, sleep apnea, morbid obesity)? @ -None Was patient admitted / discharged? Hospital course, mention meds given and route, prescriptions, significant lab abnormalities, going to OR and other perti nent info. @ -Admitted for observation. Patient presented to the emergency department with increasing shortness of breath the past 2 weeks, worse today. patient has been on azithromycin 250 mg and prednisone 5 mg for the past [address] Pérez for pulmonology. CBC shows WBC 6.3, hgb 14.4, hct 44.1; CMP shows 144, potassium 4.1, Cr 1.20, lactic acid 1.4; Influenza, covid, RSV negative. D-dimer was elevated at 0.[address] angiogram. Patient was administered DuoNeb and IV methylprednisolone. Chest x-ray showed left midlung increased airspace opacities compared to prior, COPD and chronic interstitial lung changes. CT chest angiogram showed no evidence of PE, severe centrilobular emphysema. Patient admitted for observation, case discussed with Dr. Barlow who is accepting of the admission. Undiagnosed new problem with uncertain prognosis? @ -No Drug Therapy requiring intensive monitoring for toxicity (Heparin, Nitro, Insulin, Cardizem)? @ -No Were any procedures done? @ -No Diagnosis/symptom? @ -COPD exacerbation Acute, or Chronic, or Acute on Chronic? @ -Acute Uncomplicated (without systemic symptoms) or Complicated (systemic symptoms)? @ -default Side effects of treatment? @ -No Exacerbation, Progression, or Severe Exacerbation? @ -yes copd exacerbation Poses a threat to life or bodily function? How? (Chest pain, USA, PR, pneumonia, PE, COPD, DKA, ARF, appy, cholecystitis, CVA, Diverticulitis, Homicidal, Suicidal, threat to staff... and all critical care pts) @ -COPD - Lab Data Result diagrams: 07/16/22 11:39 07/16/22 11:39 Lab Results 07/16/22 07/16/22 07/16/22 Range/Units 11:35 11:39 11:39 WBC 6.3 (3.8-10.6) k/uL RBC 4.95 (4.30-5.90) m/uL Hgb 14.4 (13.0-17.5) gm/dL Hct 44.1 (39.0-53.0) % MCV 89.2 (80.0-100.0) fL MCH 29.2 (25.0-35.0) pg MCHC 32.7 (31.0-37.0) g/dL RDW 13.3 (11.5-15.5) % Plt Count 248 (150-450) k/uL MPV 6.9 Neutrophils % 65 % Lymphocytes % 20 % Monocytes % 6 % Eosinophils % 7 % Basophils % 1 % Neutrophils # 4.1 (1.3-7.7) k/uL Lymphocytes # 1.3 (1.0-4.8) k/uL Monocytes # 0.4 (0-1.0) k/uL Eosinophils # 0.4 (0-0.7) k/uL Basophils # 0.1 (0-0.2) k/uL PT 10.0 (9.0-12.0) sec INR 0.9 (<1.2) APTT 23.8 (22.0-30.0) sec D-Dimer 0.92 H (<0.60) mg/L FEU Sodium (137-145) mmol/L Potassium (3.5-5.1) mmol/L Chloride (98-107) mmol/L Carbon Dioxide (22-30) mmol/L Anion Gap mmol/L BUN (9-20) mg/dL Creatinine (0.66-1.25) mg/dL Est GFR (CKD-EPI)AfAm (>60 ml/min/1.73 sqM) Est GFR (CKD-EPI)NonAf (>60 ml/min/1.73 sqM) Glucose (74-99) mg/dL Plasma Lactic Acid Luciano (0.7-2.0) mmol/L Calcium (8.4-10.2) mg/dL Total Bilirubin (0.2-1.3) mg/dL AST (17-59) U/L ALT (4-49) U/L Alkaline Phosphatase (38-126) U/L Troponin I (0.000-0.034) ng/mL Total Protein (6.3-8.2) g/dL Albumin (3.5-5.0) g/dL Influenza Type A (PCR) Not Detected (Not Detectd) Influenza Type B (PCR) Not Detected (Not Detectd) RSV (PCR) Not Detected (Not Detectd) SARS-CoV-2 (PCR) Not Detected (Not Detectd) 07/16/22 07/16/22 07/16/22 Range/Units 11:39 11:39 11:39 WBC (3.8-10.6) k/uL RBC (4.30-5.90) m/uL Hgb (13.0-17.5) gm/dL Hct (39.0-53.0) % MCV (80.0-100.0) fL MCH (25.0-35.0) pg MCHC (31.0-37.0) g/dL RDW (11.5-15.5) % Plt Count (150-450) k/uL MPV Neutrophils % % Lymphocytes % % Monocytes % % Eosinophils % % Basophils % % Neutrophils # (1.3-7.7) k/uL Lymphocytes # (1.0-4.8) k/uL Monocytes # (0-1.0) k/uL Eosinophils # (0-0.7) k/uL Basophils # (0-0.2) k/uL PT (9.0-12.0) sec INR (<1.2) APTT (22.0-30.0) sec D-Dimer (<0.60) mg/L FEU Sodium 144 (137-145) mmol/L Potassium 4.1 (3.5-5.1) mmol/L Chloride 105 (98-107) mmol/L Carbon Dioxide 29 (22-30) mmol/L Anion Gap 10 mmol/L BUN 18 (9-20) mg/dL Creatinine 1.20 (0.66-1.25) mg/dL Est GFR (CKD-EPI)AfAm 70 (>60 ml/min/1.73 sqM) Est GFR (CKD-EPI)NonAf 60 (>60 ml/min/1.73 sqM) Glucose 137 H (74-99) mg/dL Plasma Lactic Acid Luciano 1.4 (0.7-2.0) mmol/L Calcium 9.2 (8.4-10.2) mg/dL Total Bilirubin 0.5 (0.2-1.3) mg/dL AST 25 (17-59) U/L ALT 17 (4-49) U/L Alkaline Phosphatase 57 (38-126) U/L Troponin I <0.012 (0.000-0.034) ng/mL Total Protein 6.4 (6.3-8.2) g/dL Albumin 4.0 (3.5-5.0) g/dL Influenza Type A (PCR) (Not Detectd) Influenza Type B (PCR) (Not Detectd) RSV (PCR) (Not Detectd) SARS-CoV-2 (PCR) (Not Detectd) Disposition Clinical Impression: COPD exacerbation Disposition: ADMITTED IP TO THIS [facility] Condition: Stable Referrals: Maico Anders MD [Primary Care Provider] - 1-2 days Time of Disposition: 15:19 Decision Date: 07/16/22 Decision Time: 15:05
[2022-07-16 13:08] LABS: INR 0.9 (<1.2); Partial Thromboplastin Time 23.8 sec (22.0-30.0)
--- NOTE | 2022-07-16 14:37 | CT ---
EXAMINATION TYPE: CT chest angio for PE CT DLP: 250.8 mGycm, Automated exposure control for dose reduction was used. DATE OF EXAM: 07/16/2022 2:16 PM COMPARISON: 02/20/2022. CLINICAL INDICATION:Male, 72 years old with history of shortness of breath, elevated ddimer; Shortnes s of breath and elevated d-dimer TECHNIQUE/CONTRAST: CTA scan of the thorax is performed with IV Contrast, patient injected with 60ml mL of Isovue 300, pu lmonary embolism protocol. MIP images are created and reviewed these [facility] FINDINGS: Pulmonary Artery: There is no evidence for a filling defect within the pulmonary vasculature to sugge st acute pulmonary embolism. The pulmonary artery is of normal size. Lungs/Pleura: Severe centrilobular emphysema changes are seen throughout the lungs. No evidence of fo watson consolidation, pleural effusion or pneumothorax. Calcified granulomas within the lungs most prono unced in left lower lobe. Airway: Large airways are patent. Heart: Heart is within normal limits for size. Vasculature: No evidence of aortic aneurysm. Mediastinum: No gross evidence of adenopathy. Partially calcified lymph nodes within the left pulmona ry hilum. Musculoskeletal: No acute osseous abnormalities Soft Tissues: Unremarkable. Lower neck: No significant findings. Upper Abdomen: Hepatic cyst. Scattered calcified granulomas in the spleen. IMPRESSION: 1. No evidence of pulmonary embolism. 2. Severe centrilobular emphysema.
[2022-07-16] MEDS ORDERED: methylPREDNISolone SOD SUCCI 125 MG/2 ML VIAL IV STA (15:00)
[2022-07-16] MEDS ORDERED: NALOXONE 0.4 MG/ML 1 ML VIAL IVP PRN ×2 (15:00→16:38)
[2022-07-16] MEDS ORDERED: IPRATROPIUM-ALBUTEROL 3 ML NEB INHALATION PRN (15:00)
[2022-07-16] MEDS: AZITHROMYCIN 500 MG TAB PO SCH (15:18)
[2022-07-16] MEDS: IPRATROPIUM-ALBUTEROL 3 ML NEB INHALATION SCH ×2 (16:36→19:48)
[2022-07-16] MEDS ORDERED: ONDANSETRON 4 MG/2 ML VIAL IVP PRN (16:38)
[2022-07-16] MEDS ORDERED: MELATONIN 3 MG TABLET PO PRN (16:38)
[2022-07-16] MEDS ORDERED: ACETAMINOPHEN TAB 325 MG TAB PO PRN (16:38)
--- NOTE | 2022-07-16 17:06 | P.HPIM ---
History of Present Illness H&P Date: 07/16/22 Chief Complaint: shortness of breath Patient is a 72-year-old male with COPD, GERD, and prior tobacco abuse who presented to ER with complaints of shortness of breath one month duration. On arrival to the ER he was satting 96% on 2 L nasal cannula but was tachycardic to 111. Laboratory analysis was remarkable for d-dimer of 0.92 and glucose of 137. He underwent CT of the chest which was negative for pulmonary embolism but did show severe emphysema. His influenza A/B/RSV/COVID-19 testing was negative. He was started on bronchodilators and Solu-Medrol. Arrangements were made for admission. Patient seen and examined at bedside. For the last 1 month he has been having worsening SOB and feeling fatigued with exertion. He is Okay at rest. Has a c hronic cough productive of white sputum that is unchanged. He has chronic wheezing which is unchanged. Has intermittent chest pressure but no pains. Intermittent heart palpitations. Follows with Dr. Pérez for Pulmonary adn was last seen 2 months ago. He take predinose 5 mg daily one day and then 10 mg the next day for about the last 6 week. Vital signs reviewed General: nontoxic, no distress, appears at stated age Derm: warm, dry Eyes: EOMI, no lid lag, anicteric sclera, pupils equal round reactive to light ENT: Nose and ears atraumatic, no thrush, no pharyngeal erythema Cardiovascular: S1S2 reg, no murmur, positive posterior tibial pulse bilateral, no edema, capillary refill less than 2 seconds Lungs: clear to auscultation bilateral, no rhonchi, no rales, no wheeze, no accessory muscle use Abdominal: soft, nontender to palpation, no guarding, no appreciable organomegaly, normal bowel sounds Ext: no gross muscle atrophy, muscle strength 5 out of 5 in all 4 extremities, no contractures Neuro: CN II-XII grossly intact, light touch intact all 4 extremities, finger to nose within normal limits, Psych: Alert, oriented, appropriate affect Assessment: Dyspnea on exerction Acute exacerbation of Severe COPD Chronic hypoxic repiraotry failure Abdominal discomfort, possible gastritis GERD Prior Tobacco abuse Imaging: CT PE protocol-no pulmonary embolism, severe emphysema Chest x-rays reviewed from myself demonstrates increased vasculature markings bilaterally Data Review: On arrival to the ER he was satting 96% on 2 L nasal cannula but was ta chycardic to 111. Laboratory analysis was remarkable for d-dimer of 0.92 and glucose of 137. Plan: - Solumedrol 60 mg IV q 6 hours, Duoneb 4 times daily and prn, Fomertrol 20 mcg BID, Budenoside 0.5 mg BID - start Protonix 40 mg IVP BID - Consult Dr. Pérez - Serial Troponin - if no improvement in exertional dyspnea then may need ischemic eval and echo The patient is placed in observation with an anticipated less than 2 midnight stay for evaluation of Acute exacerbation of COPD. Surrogate decision-maker: CODE STATUS:DNR DVT prophylaxis: [place] Discussed with: Patient and nursing Anticipated discharge date: Pending clinical course Anticipated discharge place: Pending clinical course This dictation was prepared using [employer] voice recognition software. Though every attempt is made to correct errors during during dictation some may still exist. Past Medical History Past Medical History: COPD, GERD/Reflux Additional Past Medical History / Comment(s): positional upper abdominal pain stated when he changes position from laying to sitting and standing. History of Any Multi-Drug Resistant Organisms: None Reported Past Surgical History: Orthopedic Surgery, Tonsillectomy Additional Past Surgical History / Comment(s): Right shoulder arthroscopy. Colonoscopy. EGD Past Anesthesia/Blood Transfusion Reactions: No Reported Reaction Additional Past Anesthesia/Blood Transfusion Reaction / Comment(s): Pt has CLAUSTROPHOBIA Past Psychological History: No Psychological Hx Reported Smoking Status: Former smoker Past Alcohol Use History: None Reported Past Drug Use History: None Reported - Past Family History Father Family Medical History: Cancer Mother Family Medical History: Cancer Additional Family Medical History / Comment(s): Mother in her 50s with some form of cancer. Pt/spouse do not recall type of cancer. Medications and Allergies Home Medications Medication Instructions Recorded Confirmed Type Multivitamins, Thera [Multivitamin 1 tab PO DAILY 01/22/20 07/16/22 History (formulary)] Ipratropium-Albuterol Nebulize 3 ml INHALATION RT-QID PRN 07/30/21 07/16/22 History [Duoneb 0.5 mg-3 mg/3 ml Soln] Azithromycin [Zithromax] 250 mg PO Q48H 07/16/22 07/16/22 History Fluticasone Propion/Salmeterol 1 puff INHALATION RT-BID 07/16/22 07/16/22 History [Wixela 250-50 Inhub] predniSONE 5 mg PO DAILY 07/16/22 07/16/22 History Allergies Allergy/AdvReac Type Severity Reaction Status Date / Time No Known Allergies Allergy Verified 07/16/22 15:24 Physical Exam Osteopathic Statement: *. No significant issues noted on an osteopathic structural exam other than those noted in the History and Physical/Consult. Vitals: Vital Signs Temp Pulse Pulse Resp BP BP Pulse Ox 07/16/22 16:48 86 07/16/22 16:37 85 07/16/22 15:41 97.9 F 59 L 16 123/74 98 07/16/22 15:00 70 18 121/90 98 07/16/22 13:15 76 20 124/78 07/16/22 13:14 87 07/16/22 11:09 112 H 24 122/84 97 07/16/22 11:07 97.9 F 111 H 20 111/78 96 Intake and Output 07/16/22 07/16/22 07/16/22 06:59 14:59 22:59 Other: Weight 56.699 kg 56.699 kg Results CBC & Chem 7: 07/16/22 11:39 07/16/22 11:39 Labs: Abnormal Lab Results - Last 24 Hours (Table) 07/16/22 07/16/22 Range/Units 11:39 11:39 D-Dimer 0.92 H (<0.60) mg/L FEU Glucose 137 H (74-99) mg/dL
[2022-07-16] MEDS: FORMOTEROL FUMARATE 20 MCG/2 ML NEBU INHALATION SCH (19:48)
[2022-07-16] MEDS: BUDESONIDE 0.5 MG/2 ML NEBU INHALATION SCH (19:49)
[2022-07-16] MEDS: PANTOPRAZOLE 40 MG/10 ML VIAL IVP SCH (21:15)
[2022-07-16] MEDS: guaiFENesin 600 MG TABLET.ER PO SCH (21:15)
[2022-07-17] MEDS: methylPREDNISolone SOD SUCCI 125 MG/2 ML VIAL IV SCH ×4 (00:58→17:34)
[2022-07-17 08:45] LABS: African American GFR (CKD) 79 (>60 ml/min/1.73 sqM); Anion Gap 8 mmol/L; Blood Urea Nitrogen 19 mg/dL (9-20); Carbon Dioxide 28 mmol/L (22-30); Chloride 102 mmol/L (98-107); Glucose 136 mg/dL (74-99); Non-African American GFR(CKD) 68 (>60 ml/min/1.73 sqM); Potassium 4.8 mmol/L (3.5-5.1); Sodium 138 mmol/L (137-145)
[2022-07-17] MEDS: FORMOTEROL FUMARATE 20 MCG/2 ML NEBU INHALATION SCH ×2 (08:53→20:18)
[2022-07-17] MEDS: BUDESONIDE 0.5 MG/2 ML NEBU INHALATION SCH (08:53)
[2022-07-17] MEDS: IPRATROPIUM-ALBUTEROL 3 ML NEB INHALATION SCH ×4 (08:53→20:18)
[2022-07-17] MEDS: AZITHROMYCIN 500 MG TAB PO SCH (09:23)
[2022-07-17] MEDS: guaiFENesin 600 MG TABLET.ER PO SCH ×2 (09:23→20:47)
[2022-07-17] MEDS: PANTOPRAZOLE 40 MG/10 ML VIAL IVP SCH ×2 (09:24→20:47)
[2022-07-17] MEDS: ENOXAPARIN 40 MG/0.4 ML SYRINGE SQ SCH (09:24)
[2022-07-17 10:05] LABS: HCT 40.7 % (39.0-53.0); HGB 13.1 gm/dL (13.0-17.5); MCH 28.9 pg (25.0-35.0); MCHC 32.3 g/dL (31.0-37.0); MCV 89.5 fL (80.0-100.0); Platelet Count 269 k/uL (150-450); RBC 4.55 m/uL (4.30-5.90); RDW 12.8 % (11.5-15.5); WBC 6.9 k/uL (3.8-10.6)
--- NOTE | 2022-07-17 10:55 | P.CNPUL ---
History of Present Illness Consult date: 07/17/22 Requesting physician: Ananya Barlow Reason for consult: dyspnea, COPD Chief complaint: Shortness of breath, cough, congestion History of present illness: This is a pleasant 72-year-old male patient with a known history of severe stage IV chronic obstructive pulmonary disease with an FEV1 value 26% of predicted. He is on home oxygen. He is maintained on Wixella and albuterol in the outpati ent setting. He follows with Dr. Pérez. He presented with a two week history of increasing wheezing, shortness of breath, cough and congestion. No fever chills. No hemoptysis. Chest x-ray revealed a left midlung airspace opacity. Evidence of COPD and chronic interstitial changes. CT angiogram ruled out pulmonary embolism. Severe central lobular emphysema no evidence of focal consolidation, pleural effusion or pneumothorax. There is some calcified granulomas within the lungs most pronounced in the left lower lobe. White count 6.9. Hemoglobin 13.1. Platelets 269. D-dimer 0.92. Sodium 138. Potassium 4.8. Bicarb 20. BUN 19. Creatinine 1.08. Glucose 136. Troponins negative 3 . Influenza screen negative. RSV screen negative. COVID-19 screen negative. The patient is seen in consultation on the regular medical floor. Currently sitting up at the bedside. Awake and alert in no acute distress. He has a loose nonproductive cough. Still with some bilateral wheezing. Continue good O2 saturations the upper 90s on 2 L nasal cannula. Afebrile. Hemodynamically stable. He's been initiated and DuoNeb inhalations, Pulmicort and Perforomist inhalations, IV Solu-Medrol. Empiric antibiotics form of azithromycin. Lovenox for DVT prophylaxis. Review of Systems REVIEW OF SYSTEMS: CONSTITUTIONAL: Denies any recent significant weight loss or weight gain. EYES: Denies change in vision. EARS, NOSE, MOUTH, THROAT: Denies headaches, denies sore throat. CARDIOVASCULAR: Denies chest pain, palpitations or syncopal episodes. RESPIRATORY: Positive for shortness of breath, cough, congestion no hemoptysis. GASTROINTESTINAL: Denies change in appetite, denies abdominal pain GENITOURINARY: Denies hematuria, denies infections. MUSKULOSKELETAL: Denies pain, denies swelling. INTEGUMENTARY: Denies rash, denies eczema. NEUROLOGICAL: Denies recent memory loss, no recent seizure activity. PSYCHIATRIC: Denies anxiety, denies depression. HEMATOLOGIC/LYMPHATIC: Denies anemia, denies enlarged lymph nodes. Past Medical History Past Medical History: COPD, GERD/Reflux Additional Past Medical History / Comment(s): positional upper abdominal pain stated when he changes position from laying to sitting and standing. History of Any Multi-Drug Resistant Organisms: None Reported Past Surgical History: Orthopedic Surgery, Tonsillectomy Additional Past Surgical History / Comment(s): Right shoulder arthroscopy. Colonoscopy. EGD Past Anesthesia/Blood Transfusion Reactions: No Reported Reaction Additional Past Anesthesia/Blood Transfusion Reaction / Comment(s): Pt has CLAUSTROPHOBIA Past Psychological History: No Psychological Hx Reported Smoking Status: Former smoker Past Alcohol Use History: None Reported Past Drug Use History: None Reported - Past Family History Father Family Medical History: Cancer Mother Family Medical History: Cancer Additional Family Medical History / Comment(s): Mother in her 50s with some form of cancer. Pt/spouse do not recall type of cancer. Medications and Allergies Home Medications Medication Instructions Recorded Confirmed Type Multivitamins, Thera [Multivitamin 1 tab PO DAILY 01/22/20 07/16/22 History (formulary)] Ipratropium-Albuterol Nebulize 3 ml INHALATION RT-QID PRN 07/30/21 07/16/22 History [Duoneb 0.5 mg-3 mg/3 ml Soln] Azithromycin [Zithromax] 250 mg PO Q48H 07/16/22 07/16/22 History Fluticasone Propion/Salmeterol 1 puff INHALATION RT-BID 07/16/22 07/16/22 History [Wixela 250-50 Inhub] predniSONE 5 mg PO DAILY 07/16/22 07/16/22 History Allergies Allergy/AdvReac Type Severity Reaction Status Date / Time No Known Allergies Allergy Verified 07/16/22 15:24 Physical Exam Vitals: Vital Signs Temp Pulse Pulse Resp BP BP Pulse Ox 07/17/22 09:17 88 07/17/22 09:09 88 07/17/22 09:08 88 07/17/22 08:54 84 98 07/17/22 07:00 98 F 78 18 106/71 97 07/17/22 04:23 97.9 F 70 16 117/70 94 L 07/17/22 02:00 97.7 F 86 18 114/70 94 L 07/16/22 22:18 98.3 F 90 16 109/67 95 07/16/22 20:02 88 07/16/22 20:00 16 07/16/22 19:56 88 07/16/22 19:55 88 07/16/22 19:50 88 07/16/22 16:48 86 07/16/22 16:37 85 07/16/22 15:41 97.9 F 59 L 16 123/74 98 07/16/22 15:00 70 18 121/90 98 07/16/22 13:15 76 20 124/78 07/16/22 13:14 87 07/16/22 11:09 112 H 24 122/84 97 07/16/22 11:07 97.9 F 111 H 20 111/78 96 Intake and Output 07/16/22 07/17/22 07/17/22 22:59 06:59 14:59 Intake Total 118 118 Balance 118 118 Intake: Oral 118 118 Other: # Voids 2 2 Weight 56.699 kg GENERAL EXAM: Alert, pleasant 72-year-old male, on 2 L nasal cannula, comfortable in no apparent distress. HEAD: Normocephalic. EYES: Normal reaction of pupils, equal size. NOSE: Clear with pink turbinates. THROAT: No erythema or exudates. NECK: No masses, no JVD. CHEST: No chest wall deformity. LUNGS: Equal air entry with bilateral end expiratory wheeze, diminished. CVS: S1 and S2 normal with no audible murmur, regular rhythm. ABDOMEN: No hepatosplenomegaly, normal bowel sounds, no guarding or rigidity. SPINE: No scoliosis or deformity SKIN: No rashes CENTRAL NERVOUS SYSTEM: No focal deficits, tone is normal in all 4 extremities. EXTREMITIES: There is no peripheral edema. No clubbing, no cyanosis. Peripheral pulses are intact. Results - Laboratory Findings CBC and BMP: 07/17/22 07:25 07/17/22 07:25 PT/INR, D-dimer PT 10.0 sec (9.0-12.0) 07/16/22 11:39 INR 0.9 (<1.2) 07/16/22 11:39 D-Dimer 0.92 mg/L FEU (<0.60) H 07/16/22 11:39 Abnormal lab findings: Abnormal Labs 07/16/22 07/16/22 07/17/22 11:39 11:39 07:25 D-Dimer 0.92 H Glucose 137 H 136 H - Diagnostic Findings Chest x-ray: image reviewed CT scan - chest: image reviewed Assessment and Plan Assessment: Acute on chronic hypoxemic respiratory failure secondary to an acute exacerbation of chronic obstructive pulmonary disease, complicated by tracheal bronchitis. Currently on azithromycin. Pro-calcitonin pending. Influenza, RSV, CoVID ruled out Acute exacerbation of severe oxygen dependent chronic obstructive pulmonary disease his FEV1 value 26% of predicted History of chronic heavy tobacco dependence however quit 2 years ago Gastroesophageal reflux disease Plan: The patient was seen and evaluated Chest x-ray, computed tomography scan chest, labs and medications reviewed Continue DuoNeb inhalations, Pulmicort and Perforomist inhalations Continue IV Solu-Medrol Empiric antibiotics in the form of azithromycin Procalcitonin pending DO NOT RESUSCITATE/DO NOT INTUBATE CODE STATUS We will continue to follow and make further recommendations based on his clinical status I have personally seen and examined the patient, performed the documentation and the assessment and plan as written. Number of minutes spent on the visit: 20.
--- NOTE | 2022-07-17 14:05 | P.PN ---
Subjective Progress Note Date: 07/17/22 Patient is a 72-year-old male with COPD, GERD, and prior tobacco abuse who presented to ER with complaints of shortness of breath one month duration. On arrival to the ER he was satting 96% on 2 L nasal cannula but was tachycardic to 111. Laboratory analysis was remarkable for d-dimer of 0.92 and glucose of 137. He underwent CT of the chest which was negative for pulmonary embolism but did show severe emphysema. His influenza A/B/RSV/COVID-19 testing was negative. He was started on bronchodilators and Solu-Medrol. Arrangements were made for admission. He had some improvement by the morning after admission. Patient seen and examined at bedside. He reports his breathing is better than on admission yesterday but still or near his baseline. He denies any nausea, vomiting, chest pain. We discussed the results of his troponins and I suggested that we did an echocardiogram in the morning he is agreeable. Vital signs reviewed General: nontoxic, no distress, appears at stated age Cardiovascular: S1S2 reg, no murmur, positive posterior tibial pulse bilateral, Lungs: Faint wheeze bilateral bases, no rhonchi, no rales , no accessory muscle use Abdominal: soft, nontender to palpation, no guarding, no appreciable organomegaly Ext: no gross muscle atrophy, no edema, no contractures Neuro: CN II-XI grossly intact, no focal neuro deficits Psych: Alert, oriented, appropriate affect Assessment: Dyspnea on exerction Acute exacerbation of Severe COPD, FEV1 26% Chronic hypoxic repiraotry failure Abdominal discomfort, possible gastritis GERD Prior Tobacco abuse Imaging: No additional imaging studies available Data Review: Vital signs reviewed and temperature 90.8, pulse 78, respirations 18, blood pressure 106/71, O2 sat 97% on 2 L Laboratory analysis from today is unremarkable Plan: -Pulmonary consultation reviewed: Continue with current plan of care -Check echocardiogram in a.m. - Solumedrol 60 mg IV q 6 hours, Duoneb 4 times daily and prn, Fomertrol 20 mcg BID, Budenoside 0.5 mg BID - Protonix 40 mg IVP BID Despite maximal medical therapy for the last 24 hours patient continues to have significant dyspnea. Discharge at this time would result in worsening of his condition and therefore patient will be made inpatient. DVT prophylaxis: Discussed with: Anticipated discharge date: Anticipated discharge place: This dictation was prepared using [employer] voice recognition software. Though every attempt is made to correct errors during during dictation some may still exist. Objective - Vital Signs Vital signs: Vital Signs Temp 98 F 07/17/22 07:00 Pulse 92 07/17/22 12:24 Resp 18 07/17/22 07:00 BP 106/71 07/17/22 07:00 Pulse Ox 98 07/17/22 08:54 FiO2 Intake & Output 07/16/22 07/17/22 07/17/22 18:59 06:59 18:59 Intake Total 118 118 Balance 118 118 Weight 56.699 kg Intake: Oral 118 118 Other: # Voids 2 - Labs CBC & Chem 7: 07/17/22 07:25 07/17/22 07:25 Labs: Abnormal Lab Results - Last 24 Hours (Table) 07/17/22 Range/Units 07:25 Glucose 136 H (74-99) mg/dL
[2022-07-17] MEDS: BUDESONIDE 1 MG/2 ML NEBU INHALATION SCH (20:18)
[2022-07-18] MEDS: methylPREDNISolone SOD SUCCI 125 MG/2 ML VIAL IV SCH ×2 (00:44→05:27)
[2022-07-18 00:46] VITALS: TEMP 97.8
[2022-07-18] MEDS: IPRATROPIUM-ALBUTEROL 3 ML NEB INHALATION SCH (08:28)
[2022-07-18] MEDS: FORMOTEROL FUMARATE 20 MCG/2 ML NEBU INHALATION SCH (08:28)
[2022-07-18] MEDS: BUDESONIDE 1 MG/2 ML NEBU INHALATION SCH (08:28)
[2022-07-18] MEDS: ENOXAPARIN 40 MG/0.4 ML SYRINGE SQ SCH (09:19)
[2022-07-18 09:23] VITALS: BP 113/71; PULSE 95; RESP 17
[2022-07-18] MEDS: AZITHROMYCIN 500 MG TAB PO SCH (09:28)
[2022-07-18] MEDS: guaiFENesin 600 MG TABLET.ER PO SCH (09:28)
[2022-07-18] MEDS: PANTOPRAZOLE 40 MG/10 ML VIAL IVP SCH (09:28)
--- NOTE | 2022-07-18 09:50 | P.DS ---
Providers Date of admission: 07/16/22 15:02 Expected date of discharge: 07/18/22 Attending physician: Ananya Barlow DO Consults: 07/16/22 15:00 Consult Physician Routine Consulting Provider: Arina Pérez Consult Reason/Comments: COPD Do you want consulting provider notified?: Yes Primary care physician: Maico Pope [facility] Course: Discharge Diagnosis: Acute exacerbation of Severe COPD, FEV1 26% Chronic hypoxic respiratory failure Gastritis GERD Prior Tobacco abuse Hospital Course: Patient is a 72-year-old male with COPD, GERD, and prior tobacco abuse who presented to ER with complaints of shortness of breath one month duration. On arrival to the ER he was satting 96% on 2 L nasal cannula but was tachycardic to 111. Laboratory analysis was remarkable for d-dimer of 0.92 and glucose of 137. He underwent CT of the chest which was negative for pulmonary embolism but did show severe emphysema. His influenza A/B/RSV/COVID-19 testing was negative. He was started on bronchodilators and Solu-Medrol. Arrangements were made for admission. He had some improvement by the morning after admission. Pulmonary continued to improve. He was determined optimized for discharge. Follow-up: Dr. Anders in 2-3 days, Dr. Browning in 1 week. He will complete a prednisone taper. He will increase his DuoNeb 4 times daily for the next 2 days. He will start on Protonix daily with a 12 week trial for his abdominal discomfort. Patient seen and examined at bedside. Breathing is much better than yesterday. He feels well and as though he can manage at home. We discussed the causes of possible COPD exacerbation and his medication regimen on discharge. All questions were answered. Vital signs reviewed and stable. General: nontoxic, no distress, appears at stated age Derm: warm, dry Head: atraumatic, normocephalic, symmetric Eyes: EOMI, no lid lag, anicteric sclera Mouth: no lip lesion, mucus membranes moist Cardiovascular: S1S2 reg, no murmur, positive posterior tibial pulse bilateral, Lungs: Decreased breath sounds bilateral, faint expiratory wheeze, no accessory muscle use Abdominal: soft, nontender to palpation, no guarding, no appreciable organomegaly Ext: no gross muscle atrophy, no edema, no contractures Neuro: CN II-XI grossly intact, no focal neuro deficits Psych: Alert, oriented, appropriate affect A total of 32 minutes of time were spent preparing this complex discharge summary. Patient was discharged on 07/18/22. This dictation was prepared using [employer] voice recognition software. Though every attempt is made to correct errors during during dictation some may still exist. Patient Condition at Discharge: Stable Plan - Discharge Summary New Discharge Prescriptions: New predniSONE [Deltasone] 0 mg PO DIRECTED #22 tab guaiFENesin [Mucinex] 600 mg PO Q12HR tab Ipratropium-Albuterol Nebulize [Duoneb 0.5 mg-3 mg/3 ml Soln] 3 ml INHALATION RT-QID 2 Days each Pantoprazole Sodium [Protonix] 40 mg PO DAILY #30 tab Continue Multivitamins, Thera [Multivitamin (formulary)] 1 tab PO DAILY Ipratropium-Albuterol Nebulize [Duoneb 0.5 mg-3 mg/3 ml Soln] 3 ml INHALATION RT-QID PRN PRN Reason: Shortness Of Breath predniSONE 5 mg PO DAILY Fluticasone Propion/Salmeterol [Wixela 250-50 Inhub] 1 puff INHALATION RT-BID Discontinued Azithromycin [Zithromax] 250 mg PO Q48H Discharge Medication List Multivitamins, Thera [Multivitamin (formulary)] 1 tab PO DAILY 01/22/20 [History] Ipratropium-Albuterol Nebulize [Duoneb 0.5 mg-3 mg/3 ml Soln] 3 ml INHALATION RT-QID PRN 07/30/21 [History] Fluticasone Propion/Salmeterol [Wixela 250-50 Inhub] 1 puff INHALATION RT-BID 07/16/22 [History] predniSONE 5 mg PO DAILY 07/16/22 [History] Ipratropium-Albuterol Nebulize [Duoneb 0.5 mg-3 mg/3 ml Soln] 3 ml INHALATION RT-QID 2 Days each 07/18/22 [Rx] Pantoprazole Sodium [Protonix] 40 mg PO DAILY #30 tab 07/18/22 [Rx] guaiFENesin [Mucinex] 600 mg PO Q12HR tab 07/18/22 [Rx] predniSONE [Deltasone] 0 mg PO DIRECTED #22 tab 07/18/22 [Rx] Follow up Appointment(s)/Referral(s): Arina Pérez MD [STAFF PHYSICIAN] - 1 Week Maico Anders MD [Primary Care Provider] - 1-2 days Activity/Diet/Wound Care/Special Instructions: Activity: as tolerated Diet: heart healthy Special Instructions: Take prednisone taper as directed when he completes this resume your prednisone 5 mg daily Continue with Protonix 40 mg oral daily for the next 12 weeks Take your DuoNeb 4 times daily for the next 2 days and then resuming her prior regimen of 3 times daily Discharge Disposition: HOME SELF-CARE
--- NOTE | 2022-07-18 14:54 | P.PN ---
Subjective Progress Note Date: 07/18/22 This is a pleasant 72-year-old male patient with a known history of severe stage IV chronic obstructive pulmonary disease with an FEV1 value 26% of predicted. He is on home oxygen. He is maintained on Wixella and albuterol in the outpatient setting. He follows with Dr. Pérez. He presented with a two week history of increasing wheezing, shortness of breath, cough and congestion. No fever chills. No hemoptysis. Chest x-ray revealed a left midlung airspace opacity. Evidence of COPD and chronic interstitial changes. CT angiogram ruled out pulmonary embolism. Severe central lobular emphysema no evidence of focal consolidation, pleural effusion or pneumothorax. There is some calcified granul omas within the lungs most pronounced in the left lower lobe. White count 6.9. Hemoglobin 13.1. Platelets 269. D-dimer 0.92. Sodium 138. Potassium 4.8. Bicarb 20. BUN 19. Creatinine 1.08. Glucose 136. Troponins negative 3. Influenza screen negative. RSV screen negative. COVID-19 screen negative. The patient is seen in consultation on the regular medical floor. Currently sitting up at the bedside. Awake and alert in no acute distress. He has a loose nonproductive cough. Still with some bilateral wheezing. Continue good O2 saturations the upper 90s on 2 L nasal cannula. Afebrile. Hemodynamically stable. He's been initiated and DuoNeb inhalations, Pulmicort and Perforomist inhalations, IV Solu-Medrol. Empiric antibiotics form of azithromycin. Lovenox for DVT prophylaxis. The patient is seen today 07/18/2022 in follow-up on the regular medical floor. He is currently sitting up in bed. Awake and alert in no acute distress. He continues to maintain good O2 saturations in the 90s on 2 L/m per nasal cannula. He is feeling back to his baseline. His pro calcitonin was 0.09. He is continued on DuoNeb inhalations, Pulmicort and Perforomist inhalations, IV Solu-Medrol. Empiric antibiotics in the form of azithromycin. Objective - Vital Signs Vital signs: Vital Signs Temp 97.8 F 07/18/22 07:00 Pulse 96 07/18/22 08:51 Resp 17 07/18/22 07:00 BP 113/71 07/18/22 07:00 Pulse Ox 96 05/01/23 08:29 FiO2 Intake & Output 07/17/22 07/18/22 07/18/22 18:59 06:59 18:59 Intake Total 336 118 Balance 336 118 Intake: Oral 336 118 Other: # Voids 4 1 1 - Exam GENERAL EXAM: Alert, pleasant 72-year-old gentleman, on 2 L nasal cannula, comfortable in no apparent distress. HEAD: Normocephalic. EYES: Normal reaction of pupils, equal size. NOSE: Clear with pink turbinates. THROAT: No erythema or exudates. NECK: No masses, no JVD. CHEST: No chest wall deformity. LUNGS: Equal air entry with faint end expiratory wheeze, diminished. CVS: S1 and S2 normal with no audible murmur, regular rhythm. ABDOMEN: No hepatosplenomegaly, normal bowel sounds, no guarding or rigidity. SPINE: No scoliosis or deformity SKIN: No rashes CENTRAL NERVOUS SYSTEM: No focal deficits, tone is normal in all 4 extremities. EXTREMITIES: There is no peripheral edema. No clubbing, no cyanosis. Peripheral pulses are intact. - Labs CBC & Chem 7: 07/17/22 07:25 07/17/22 07:25 Assessment and Plan Assessment: Acute on chronic hypoxemic respiratory failure secondary to an acute exacerbation of chronic obstructive pulmonary disease, complicated by tracheal bronchitis. Currently on azithromycin. Pro-calcitonin normal at 0.09. Influenza, RSV, CoVID ruled out Acute exacerbation of severe oxygen dependent chronic obstructive pulmonary disease his FEV1 value 26% of predicted History of chronic heavy tobacco dependence however quit 2 years ago Gastroesophageal reflux disease Plan: The patient was seen and evaluated Medications reviewed Cleared for discharge from the pulmonary standpoint Resume his home pulmonary medications Has home O2 Complete a prednisone taper Follow-up in the office in 1 week I have personally seen and examined the patient, performed the documentation and the assessment and plan as written. Number of minutes spent on the visit: 10.
--- NOTE | 2022-07-18 18:10 | CA ---
Transthoracic Echo Report Name: Martell Steven Age: 72 Gender: M : 1950 Exam Date: 07/18/2022 08:41 Exam Location: [facility] Ht (in): 65 Wt (lb): 125 Ordering Physician: Ananya Barlow DO Attending/Referring Phys: [id number], Yen Hand Sample Maker Sola Inman RDCS Procedure CPT: Indications: shortness of breath Cardiac Hx: Technical Quality: Fair Contrast 1: Total Dose (mL): Contrast 2: Total Dose (mL): MEASUREMENTS (Male / Female) Normal Values 2D ECHO LV Diastolic Diameter PLAX 3.7 cm 4.2 - 5.9 / 3.9 - 5.3 cm LV Systolic Diameter PLAX 2.8 cm IVS Diastolic Thickness 0.9 cm 0.6 - 1.0 / 0.6 - 0.9 cm LVPW Diastolic Thickness 0.9 cm 0.6 - 1.0 / 0.6 - 0.9 cm LV Relative Wall Thickness 0.5 LA Volume 43.1 cm??? 18 - 58 / 22 - 52 cm??? M-MODE Aortic Root Diameter MM 3.1 cm DOPPLER AV Peak Velocity 137.5 cm/s AV Peak Gradient 7.6 mmHg AV Mean Velocity 93.1 cm/s AV Mean Gradient 4.0 mmHg AV Velocity Time Integral 24.5 cm LVOT Peak Velocity 111.3 cm/s LVOT Peak Gradient 5.0 mmHg LVOT Velocity Time Integral 21.6 cm MV Area PHT 4.0 cm??? Mitral E Point Velocity 91.1 cm/s Mitral A Point Velocity 119.1 cm/s Mitral E to A Ratio 0.8 MV Deceleration Time 191.4 ms MV E' Velocity 7.2 cm/s Mitral E to MV E' Ratio 12.6 FINDINGS Left Ventricle Normal Left ventricular size, wall thickness, systolic function with no obvious regional wall motion abnormalities. Normal Left ventricular diastolic filling pattern. Left ventricular ejection fraction is estimated at 55-60 %. Right Ventricle Normal right ventricular size and function. Right Atrium Normal right atrial size. Left Atrium Normal left atrial size. No evidence for an atrial septal defect. Mitral Valve Structurally normal mitral valve.trace to mild mitral regurgitation. Aortic Valve No aortic regurgitation.aortic valve not well visualized. Tricuspid Valve Structurally normal tricuspid valve. Trace to mild tricuspid regurgitation. Pulmonic Valve Pulmonic valve not well visualized. No pulmonic regurgitation. Pericardium No pericardial effusion. Aorta Normal size aortic root and proximal ascending aorta. CONCLUSIONS 1. Normal left ventricle size and systolic function 2. Trace to mild mitral and tricuspid regurgitation Previewed by: Dr. Ayo Mendes MD (Electronically Signed) Final Date: 18 Jul 2022 18:09
== END 2022-07-18 11:25 | disposition home or self-care (01) | DRG 191 ==
LOC: EC 10:58 → 6NMEDSUR 15:01 → OBSVTOIN 15:02 → 6NMEDSUR 15:18
PROVIDERS: ADMIT Internal Medicine; ATTEND Internal Medicine
DX: J44.1 Chronic obstructive pulmonary disease with (acute) exacerbation (principal); J96.10 Chronic respiratory failure, unspecified whether with hypoxia or hypercapnia; Z87.891 Personal history of nicotine dependence; K29.70 Gastritis, unspecified, without bleeding; K21.9 Gastro-esophageal reflux disease without esophagitis; Z20.822 Contact with and (suspected) exposure to COVID-19; Z99.81 Dependence on supplemental oxygen; Z66 Do not resuscitate; Z79.899 Other long term (current) drug therapy
CPT/HCPCS: 36415; 71046; 71275; 80048; 80053; 83605; 84145; 84484; 85025; 85027; 85379; 85610; 85730; 87636; 93005; 93306; 94640; 94760; 96374; 99285

== ENCOUNTER 2022-07-29 06:59 | Inpatient (IN) | payer MEDICARE, OTHER ==
[2022-07-29] MEDS ORDERED: ONDANSETRON 4 MG/2 ML VIAL IVP STA (07:18)
[2022-07-29] MEDS ORDERED: FAMOTIDINE 20 MG/2 ML VIAL IV STA (07:19)
[2022-07-29] MEDS ORDERED: IPRATROPIUM-ALBUTEROL 3 ML NEB INHALATION STA (07:19)
[2022-07-29] MEDS ORDERED: HYDROmorphone 1 MG/ML 1 ML SYRINGE IVP STA (07:19)
--- NOTE | 2022-07-29 07:22 | ED ---
General Adult HPI - General Chief complaint: Abdominal Pain Stated complaint: SOB / Abd pain Time Seen by Provider: 07/29/22 07:01 Source: patient, EMS, RN notes reviewed Mode of arrival: EMS Limitations: no limitations - History of Present Illness Initial comments: Patient is a pleasant 72-year-old male presenting to the emergency Department with abdominal pain. Patient had mild symptoms the past day or 2, more severe since this morning. Patient has had mild emesis. Patient does have nausea. No constipation or diarrhea. No history of similar symptoms previously. He also has some difficulty in breathing however states that is very similar to his chronic COPD. Patient does use home oxygen. Patient unclear if he has fever however feels warm. - Related Data Home Medications Medication Instructions Recorded Confirmed Multivitamins, Thera [Multivitamin 1 tab PO DAILY 01/22/20 07/29/22 (formulary)] Ipratropium-Albuterol Nebulize 3 ml INHALATION RT-QID PRN 07/30/21 07/29/22 [Duoneb 0.5 mg-3 mg/3 ml Soln] Fluticasone Propion/Salmeterol 1 puff INHALATION RT-BID 07/16/22 07/29/22 [Wixela 250-50 Inhub] predniSONE 5 mg PO DIRECTED 07/16/22 07/29/22 predniSONE See Taper PO DAILY 07/29/22 07/29/22 Previous Rx's Medication Instructions Recorded Ipratropium-Albuterol Nebulize 3 ml INHALATION RT-QID 2 Days each 07/18/22 [Duoneb 0.5 mg-3 mg/3 ml Soln] Pantoprazole Sodium [Protonix] 40 mg PO DAILY #30 tab 07/18/22 guaiFENesin [Mucinex] 600 mg PO Q12HR tab 07/18/22 Allergies Allergy/AdvReac Type Severity Reaction Status Date / Time No Known Allergies Allergy Verified 07/29/22 09:06 Review of Systems ROS Statement: Those systems with pertinent positive or pertinent negative responses have been documented in the HPI. ROS Other: All systems not noted in ROS Statement are negative. Constitutional: Reports: as per HPI Eyes: Denies: eye pain ENT: Denies: ear pain Respiratory: Reports: as per HPI, dyspnea Cardiovascular: Denies: chest pain Endocrine: Denies: fatigue Gastrointestinal: Reports: as per HPI, abdominal pain, nausea, vomiting. Denies: diarrhea, constipation Genitourinary: Denies: dysuria Musculoskeletal: Denies: back pain Skin: Denies: rash Past Medical History Past Medical History: COPD, GERD/Reflux Additional Past Medical History / Comment(s): positional upper abdominal pain stated when he changes position from laying to sitting and standing. History of Any Multi-Drug Resistant Organisms: None Reported Past Surgical History: Orthopedic Surgery, Tonsillectomy Additional Past Surgical History / Comment(s): Right shoulder arthroscopy. Colonoscopy. EGD Past Anesthesia/Blood Transfusion Reactions: No Reported Reaction Additional Past Anesthesia/Blood Transfusion Reaction / Comment(s): Pt has CLAUSTROPHOBIA Past Psychological History: No Psychological Hx Reported Smoking Status: Former smoker Past Alcohol Use History: None Reported Past Drug Use History: None Reported - Past Family History Father Family Medical History: Cancer Mother Family Medical History: Cancer Additional Family Medical History / Comment(s): Mother in her 50s with some form of cancer. Pt/spouse do not recall type of cancer. General Exam Limitations: no limitations General appearance: alert Head exam: Present: normocephalic Eye exam: Present: normal appearance Neck exam: Present: normal inspection Respiratory exam: Present: wheezes, decreased breath sounds Cardiovascular Exam: Present: regular rate, normal rhythm Expanded Peripheral pulses: 2+: Posterior Tibialis (R), Posterior Tibialis (L), Dorsalis Pedis (R), Dorsalis Pedis (L) GI/Abdominal exam: Present: soft, tenderness (Moderate diffuse tenderness), guarding. Absent: pulsatile mass Extremities exam: Present: normal inspection. Absent: pedal edema, calf tenderness Neurological exam: Present: alert Psychiatric exam: Present: normal affect, normal mood Skin exam: Present: normal color Course Vital Signs 07/29/22 07/29/22 07/29/22 07:03 07:43 07:54 Temperature 96.8 F L Pulse Rate 89 100 107 H Respiratory 28 H Rate Blood Pressure 157/94 O2 Sat by Pulse 95 Oximetry - Reevaluation(s) Reevaluation #1: 07/29/22 09:35 There is concern for sepsis diagnosed at 9:30 AM. Blood culture and lactic acid and IV antibiotics have all been ordered. EKG Findings - EKG Results: EKG: interpreted by ERMD, sinus rhythm, normal axis, normal QRS, normal ST/T Medical Decision Making - Medical Decision Making Was pt. sent in by a medical professional or institution (, KALEN, EARLY CHILDHOOD EDUCATION INSTRUCTOR, urgent care, hospital, or residential...) When possible be specific @ -No Did you speak to anyone other than the patient for history (EMS, parent, family, police, friend...)? What history was obtained from this source @ -No Did you review nursing and triage notes (agree or disagree)? Why? @ -I reviewed and agree with nursing and triage notes Were old charts reviewed (outside hosp., previous admission, EMS record, old EKG, old radiological studies, urgent care reports/EKG's, residential records)? Report findings @ -No old charts were reviewed Differential Diagnosis (chest pain, altered mental status, abdominal pain women, abdominal pain men, vaginal bleeding, weakness, fever, dyspnea, syncope, headache, dizziness, GI bleed, back pain, seizure, CVA, palpatations, mental health)? @ -Differential Abdominal Pain Men: Appendicitis, cholecystitis, diverticulosis, ischemic bowel, pancreatitis, hepatitis, UTI, gastroenteritis, AAA, incarcerated hernia, bowel obstruction, constipation, inflammatory bowel, hepatitis, peptic ulcer disease, splenic infarction, perforated viscus, testicular torsion, this is not meant to be an all-inclusive list EKG interpreted by me (3pts min.). @ -As above X-rays interpreted by me (1pt min.). @ -Chest x-ray shows COPD changes without acute abnormality CT interpreted by me (1pt min.). @ -Report reviewed U/S interpreted by me (1pt. min.). @ -None done What testing was considered but not performed or refused? (CT, X-rays, U/S, labs)? Why? @ -None What meds were considered but not given or refused? Why? @ -None Did you discuss the management of the patient with other professionals (professionals i.e. KALEN Caraballo, EARLY CHILDHOOD EDUCATION INSTRUCTOR, lab, RT, psych nurse, director social welfare, musical instrument maker, teacher, special forces warrant officer, case liner)? Give summary @ -Case was discussed with Dr. Moyer who will admit and does recommend IV fluids, Zosyn, nothing by mouth and pain medication. Was smoking cessation discussed for >3mins.? @ -No Was critical care preformed (if so, how long)? @ -33 minutes critical care time Were there social determinants of health that impacted care today? How? (Homelessness, low income, unemployed, alcoholism, drug addiction, transportation, low edu. Level, literacy, decrease access to med. care, [facility], rehab)? @ -No Was there de-escalation of care discussed even if they declined (Discuss DNR or withdrawal of care, Hospice)? DNR status @ -No What co-morbidities impacted this encounter? (DM, HTN, Smoking, COPD, CAD, Cancer, CVA, ARF, Chemo, Hep., AIDS, mental health diagnosis, sleep apnea, morbid obesity)? @ -None Was patient admitted / discharged? Hospital course, mention meds given and route, prescriptions, significant lab abnormalities, going to OR and other pertinent info. @ -Patient reevaluated. Dyspnea has resolved. Patient still has moderate abdominal discomfort however states it is improved. Patient is receptive to more pain medication. Patient and family are updated on results and plan. Patient will be admitted with medical consult Undiagnosed new problem with uncertain prognosis? @ -No Drug Therapy requiring intensive monitoring for toxicity (Heparin, Nitro, Insulin, Cardizem)? @ -No Were any procedures done? @ -No Diagnosis/symptom? @ -Diverticulitis with perforation, COPD, sepsis Acute, or Chronic, or Acute on Chronic? @ -Acute, acute on chronic, acute Uncomplicated (without systemic symptoms) or Complicated (systemic symptoms)? @ -Diverticulitis, acute with perforation Side effects of treatment? @ -No Exacerbation, Progression, or Severe Exacerbation? @ -COPD as exacerbation Poses a threat to life or bodily function? How? (Chest pain, [place], [place], pneumonia, PE, COPD, DKA, ARF, appy, cholecystitis, CVA, Diverticulitis, Homicidal, Suicidal, threat to staff... and all critical care pts) @ -No - Lab Data Result diagrams: 07/29/22 07:45 07/29/22 07:45 Lab Results 07/29/22 07/29/22 07/29/22 Range/Units 07:45 07:45 07:45 WBC 18.7 H (3.8-10.6) k/uL RBC 4.55 (4.30-5.90) m/uL Hgb 13.4 (13.0-17.5) gm/dL Hct 41.4 (39.0-53.0) % MCV 91.2 (80.0-100.0) fL MCH 29.4 (25.0-35.0) pg MCHC 32.3 (31.0-37.0) g/dL RDW 14.0 (11.5-15.5) % Plt Count 243 (150-450) k/uL MPV 7.2 Neutrophils % 92 % Lymphocytes % 5 % Monocytes % 2 % Eosinophils % 1 % Basophils % 0 % Neutrophils # 17.1 H (1.3-7.7) k/uL Lymphocytes # 1.0 (1.0-4.8) k/uL Monocytes # 0.4 (0-1.0) k/uL Eosinophils # 0.1 (0-0.7) k/uL Basophils # 0.0 (0-0.2) k/uL PT 9.4 (9.0-12.0) sec INR 0.9 (<1.2) APTT 19.7 L (22.0-30.0) sec Sodium 140 (137-145) mmol/L Potassium 4.0 (3.5-5.1) mmol/L Chloride 105 (98-107) mmol/L Carbon Dioxide 29 (22-30) mmol/L Anion Gap 6 mmol/L BUN 21 H (9-20) mg/dL Creatinine 0.97 (0.66-1.25) mg/dL Est GFR (CKD-EPI)AfAm >90 (>60 ml/min/1.73 sqM) Est GFR (CKD-EPI)NonAf 78 (>60 ml/min/1.73 sqM) Glucose 132 H (74-99) mg/dL Calcium 8.7 (8.4-10.2) mg/dL Total Bilirubin 0.6 (0.2-1.3) mg/dL AST 21 (17-59) U/L ALT 23 (4-49) U/L Alkaline Phosphatase 54 (38-126) U/L Troponin I (0.000-0.034) ng/mL Total Protein 5.9 L (6.3-8.2) g/dL Albumin 3.5 (3.5-5.0) g/dL Amylase 57 (30-110) U/L Lipase 138 (23-300) U/L Urine Color Urine Appearance (Clear) Urine pH (5.0-8.0) Ur Specific [place] (1.001-1.035) Urine Protein (Negative) Urine Glucose (UA) (Negative) Urine Ketones (Negative) Urine Blood (Negative) Urine Nitrite (Negative) Urine Bilirubin (Negative) Urine Urobilinogen (<2.0) mg/dL Ur Leukocyte Esterase (Negative) Coronavirus (PCR) (Not Detectd) 07/29/22 07/29/22 07/29/22 Range/Units 07:45 07:45 08:20 WBC (3.8-10.6) k/uL RBC (4.30-5.90) m/uL Hgb (13.0-17.5) gm/dL Hct (39.0-53.0) % MCV (80.0-100.0) fL MCH (25.0-35.0) pg MCHC (31.0-37.0) g/dL RDW (11.5-15.5) % Plt Count (150-450) k/uL MPV Neutrophils % % Lymphocytes % % Monocytes % % Eosinophils % % Basophils % % Neutrophils # (1.3-7.7) k/uL Lymphocytes # (1.0-4.8) k/uL Monocytes # (0-1.0) k/uL Eosinophils # (0-0.7) k/uL Basophils # (0-0.2) k/uL PT (9.0-12.0) sec INR (<1.2) APTT (22.0-30.0) sec Sodium (137-145) mmol/L Potassium (3.5-5.1) mmol/L Chloride (98-107) mmol/L Carbon Dioxide (22-30) mmol/L Anion Gap mmol/L BUN (9-20) mg/dL Creatinine (0.66-1.25) mg/dL Est GFR (CKD-EPI)AfAm (>60 ml/min/1.73 sqM) Est GFR (CKD-EPI)NonAf (>60 ml/min/1.73 sqM) Glucose (74-99) mg/dL Calcium (8.4-10.2) mg/dL Total Bilirubin (0.2-1.3) mg/dL AST (17-59) U/L ALT (4-49) U/L Alkaline Phosphatase (38-126) U/L Troponin I <0.012 (0.000-0.034) ng/mL Total Protein (6.3-8.2) g/dL Albumin (3.5-5.0) g/dL Amylase (30-110) U/L Lipase (23-300) U/L Urine Color Yellow Urine Appearance Clear (Clear) Urine pH 6.0 (5.0-8.0) Ur Specific [place] 1.023 (1.001-1.035) Urine Protein Trace H (Negative) Urine Glucose (UA) Negative (Negative) Urine Ketones Negative (Negative) Urine Blood Negative (Negative) Urine Nitrite Negative (Negative) Urine Bilirubin Negative (Negative) Urine Urobilinogen <2.0 (<2.0) mg/dL Ur Leukocyte Esterase Negative (Negative) Coronavirus (PCR) Not Detected (Not Detectd) Critical Care Time Critical Care Time: Yes Total Critical Care Time: 33 Disposition Clinical Impression: Diverticulitis of colon with perforation, COPD (chronic obstructive pulmonary disease) Disposition: ADMITTED IP TO THIS HOSP Condition: Serious Is patient prescribed a controlled substance at d/c from ED?: No Referrals: Maico Anders MD [Primary Care Provider] - 1-2 days Time of Disposition: 09:32
[2022-07-29 07:54] LABS: Basophils % (A) 0 %; Eosinophils # (A) 0.1 k/uL (0-0.7); Eosinophils % (A) 1 %; HCT 41.4 % (39.0-53.0); HGB 13.4 gm/dL (13.0-17.5); Lymphocytes % (A) 5 %; MCH 29.4 pg (25.0-35.0); MCHC 32.3 g/dL (31.0-37.0); MCV 91.2 fL (80.0-100.0); Mean Platelet Volume 7.2; Monocytes # (A) 0.4 k/uL (0-1.0); Monocytes % (A) 2 %; Neutrophils # (A) 17.1 k/uL (1.3-7.7); Neutrophils % (A) 92 %; Platelet Count 243 k/uL (150-450); RBC 4.55 m/uL (4.30-5.90); WBC 18.7 k/uL (3.8-10.6)
[2022-07-29 08:10] LABS: ALT 23 U/L (4-49); AST 21 U/L (17-59); African American GFR (CKD) >90 (>60 ml/min/1.73 sqM); Albumin 3.5 g/dL (3.5-5.0); Alkaline Phosphatase 54 U/L (38-126); Amylase 57 U/L (30-110); Anion Gap 6 mmol/L; Blood Urea Nitrogen 21 mg/dL (9-20); Calcium 8.7 mg/dL (8.4-10.2); Carbon Dioxide 29 mmol/L (22-30); Chloride 105 mmol/L (98-107); Glucose 132 mg/dL (74-99); Lipase 138 U/L (23-300); Non-African American GFR(CKD) 78 (>60 ml/min/1.73 sqM); Sodium 140 mmol/L (137-145); Total Bilirubin 0.6 mg/dL (0.2-1.3); Total Protein 5.9 g/dL (6.3-8.2)
--- NOTE | 2022-07-29 08:11 | XR ---
EXAMINATION TYPE: XR chest 2V DATE OF EXAM: 07/29/2022 8:07 AM COMPARISON: Chest radiographs from 07/27/2022 TECHNIQUE: XR chest 2V Frontal and lateral views of the chest. CLINICAL INDICATION:Male, 72 years old with history of abdominal pain; FINDINGS: Lungs/Pleura: There is flattening of the diaphragm with increased lucency of the lungs. No evidence o f pneumothorax, pleural effusion or focal consolidation. Chronic senescent parenchymal change. Pulmonary vascularity: Unremarkable. Heart/mediastinum: Cardiomediastinal silhouette is unremarkable. Musculoskeletal: No acute osseous pathology. Degenerative changes of the thoracic spine. IMPRESSION: 1. No acute cardiopulmonary disease process. 2. COPD changes.
[2022-07-29 08:12] LABS: INR 0.9 (<1.2); Prothrombin Time 9.4 sec (9.0-12.0)
[2022-07-29 08:15] LABS: Partial Thromboplastin Time 19.7 sec (22.0-30.0)
[2022-07-29 08:43] LABS: Appearance,Urine Clear (Clear); Bilirubin,Urine Negative (Negative); Blood,Urine Negative (Negative); Color,Urine Yellow; Glucose,Urine (UA) Negative (Negative); Ketones,Urine Negative (Negative); Leukocyte Esterase,Urine Negative (Negative); Nitrite,Urine Negative (Negative); Protein,Urine Trace (Negative); Specific Gravity,Urine 1.023 (1.001-1.035); Urobilinogen,Urine <2.0 mg/dL (<2.0)
[2022-07-29] MEDS ORDERED: PIPERACILLIN-TAZOBACTAM 3.375 GM in SODIUM CHLORIDE 0.9% 100 ML IVPB STA (09:32)
[2022-07-29] MEDS ORDERED: SODIUM CHLORIDE 0.9% 500 ML 500 ML IV STA (09:32)
[2022-07-29] MEDS ORDERED: SODIUM CHLORIDE 0.9% 1,000 ML IV STA (09:32)
[2022-07-29] MEDS ORDERED: NALOXONE 0.4 MG/ML 1 ML VIAL IV PRN (09:35)
--- NOTE | 2022-07-29 09:35 | CT ---
EXAMINATION TYPE: CT abdomen pelvis w con DATE OF EXAM: 07/29/2022 COMPARISON: NONE HISTORY: 72-year-old male Generalized abdominal pain. TECHNIQUE: Contiguous axial scanning of the abdomen and pelvis following administration of 100 ml Iso dusty 300 IV contrast. Delayed images through the kidneys and coronal/sagittal reconstructions perform ed. CT DLP: 685.4 mGycm Automated exposure control for dose reduction was used. FINDINGS: Heart normal size without pericardial effusion. Emphysematous change in the lower lungs. Mi nimal patchy opacity at the left base remains unchanged, possibly some interstitial scarring. There is mild circumferential distal esophageal wall thickening and a small to moderate-sized hiatal hernia. Scattered small hepatic cysts measuring up to 8 mm. Portal venous system is patent. No biliary ductal dilatation. Gallbladder, adrenal glands, kidneys, and pancreas appear within normal limits. Numerous calcified granulomas within the spleen. There are scattered non to mildly distended small [place] wel loops measuring up to 3.0 cm in caliber. No discrete transition point is seen. Normal appendix. Scattered [id number] stool. Extensive sigmoid diverticulosis. Redundant mid to distal sigmoid c olon. There is some focal wall thickening and moderate surrounding inflammatory fat stranding at the juncti on of the mid to distal sigmoid, axial image 54. Extraluminal free air is present, largest collection measuring 5.5 cm and a second collection tracking up posteriorly in the mid abdomen measuring up to 4.5 cm. Additional scattered tiny foci of free air are present throughout the mid abdomen. No discrete abscess formation. Trace peritoneal free fluid lower abdomen. Bladder partially distended. Prostate gland largest 5.2 cm wide. Patulous left inguinal canal. No pel charly lymphadenopathy. Bones: Moderate to advanced degenerative disc disease scattered throughout the lumbar spine with adva nced hypertrophic facet arthropathy and degenerative levoconvex curvature mid lumbar spine. IMPRESSION: 1. EXAM POSITIVE FOR ACUTE SIGMOID DIVERTICULITIS. Complicated by perforation and pockets of free int raperitoneal air measuring up to 5.5 cm. Trace lower abdominal ascites. No abscess formation at this time. 2. Secondary small bowel ileus. 3. Small to moderate-sized hiatal hernia. Mild circumferential distal esophageal wall thickening coul d reflect reflux esophagitis. 4. Prostatomegaly of 5.2 cm wide. Critical findings called to Dr. Mederos in the ER at 9:25 AM.
[2022-07-29] MEDS: HYDROmorphone 1 MG/ML 1 ML SYRINGE IVP PRN ×2 (11:36→20:54)
--- NOTE | 2022-07-29 13:16 | P.CNPUL ---
History of Present Illness Consult date: 07/29/22 Reason for consult: COPD History of present illness: I was asked to evaluate this patient because of his advanced COPD and ongoing abdominal complications. The patient was seen in the emergency department. The patient is known to have diverticulosis he came in for an acute abdominal pain this morning. CAT scan of the abdomen was done and the patient was found to have acute sigmoid diverticulitis. This was a comp acute diverticulitis as p erforation suspected and the patient had pockets of free intraperitoneal air measuring up to 5.5 cm in size. There is also trace lower abdominal ascites. No evidence of any abscess formation. Is also small bowel ileus. There is moderate size hiatal hernia also. The patient has a large prostate. Is known to have prostate cancer. The patient is also known to have advanced COPD. The patient is auction dependent. The patient is steroid dependent and is taking 10 mg of prednisone on a daily basis on outpatient basis. He has been followed up through our office. He has exertional dyspnea which is chronic in his significant limitation in exercise capacity because of his advanced COPD. No chest pain. No worsening shortness of breath. No swelling lower extremities. No previous history of DVT or pulmonary embolism. No nausea or emesis. No aspiration. GI surgeries on the case. Currently is on antibiotics. No plans for any surgery at this point in time. Blood work shows a WBC count of 18, hemoglobin 13, normal cognition profile, BUN is 20 over the creatinine of 0.9. LFTs are normal. Lactic acid level is at 1.3. Review of Systems CONSTITUTIONAL: Denies any recent significant weight loss or weight gain. EYES: Denies change in vision. EARS, NOSE, MOUTH, THROAT: Positive for sore throat. CARDIOVASCULAR: Denies chest pain, palpitations or syncopal episodes. RESPIRATORY: Positive for shortness of breath, cough, congestion no hemoptysis. GASTROINTESTINAL: Denies change in appetite, abdominal pain which is of an acute onset as mentioned above GENITOURINARY: Denies hematuria, denies infections. MUSKULOSKELETAL: Denies pain, denies swelling. INTEGUMENTARY: Denies rash, denies eczema. NEUROLOGICAL: Denies recent memory loss, no recent seizure activity. PSYCHIATRIC: Denies anxiety, denies depression. HEMATOLOGIC/LYMPHATIC: Denies anemia, denies enlarged lymph nodes. Past Medical History Past Medical History: Cancer (Prostate cancer), COPD, GERD/Reflux Additional Past Medical History / Comment(s): positional upper abdominal pain stated when he changes position from laying to sitting and standing. History of Any Multi-Drug Resistant Organisms: None Reported Past Surgical History: Orthopedic Surgery, Tonsillectomy Additional Past Surgical History / Comment(s): Right shoulder arthroscopy. Colonoscopy. EGD Past Anesthesia/Blood Transfusion Reactions: No Reported Reaction Additional Past Anesthesia/Blood Transfusion Reaction / Comment(s): Pt has CLAUSTROPHOBIA Past Psychological History: No Psychological Hx Reported Smoking Status: Former smoker Past Alcohol Use History: None Reported Past Drug Use History: None Reported - Past Family History Father Family Medical History: Cancer Mother Family Medical History: Cancer Additional Family Medical History / Comment(s): Mother in her 50s with some form of cancer. Pt/spouse do not recall type of cancer. Medications and Allergies Home Medications Medication Instructions Recorded Confirmed Type Multivitamins, Thera [Multivitamin 1 tab PO DAILY 01/22/20 07/29/22 History (formulary)] Ipratropium-Albuterol Nebulize 3 ml INHALATION RT-QID PRN 07/30/21 07/29/22 History [Duoneb 0.5 mg-3 mg/3 ml Soln] Fluticasone Propion/Salmeterol 1 puff INHALATION RT-BID 07/16/22 07/29/22 History [Wixela 250-50 Inhub] predniSONE 5 mg PO DIRECTED 07/16/22 07/29/22 History Ipratropium-Albuterol Nebulize 3 ml INHALATION RT-QID 2 Days each 07/18/22 07/29/22 Rx [Duoneb 0.5 mg-3 mg/3 ml Soln] Pantoprazole Sodium [Protonix] 40 mg PO DAILY #30 tab 07/18/22 07/29/22 Rx guaiFENesin [Mucinex] 600 mg PO Q12HR tab 07/18/22 07/29/22 Rx predniSONE See Taper PO DAILY 07/29/22 07/29/22 History Allergies Allergy/AdvReac Type Severity Reaction Status Date / Time No Known Allergies Allergy Verified 07/29/22 09:06 Physical Exam Vitals: Vital Signs Temp Pulse Resp BP Pulse Ox 07/29/22 07:54 107 H 07/29/22 07:43 100 07/29/22 07:03 96.8 F L 89 28 H 157/94 95 Intake and Output 07/28/22 07/29/22 07/29/22 22:59 06:59 14:59 Other: Weight 59.421 kg GENERAL EXAM: Alert, pleasant 72-year-old male, on 2 L nasal cannula, comfortable in no apparent distress. The patient is currently on 2 L of oxygen by nasal cannula and his breathing is nonlabored HEAD: Normocephalic. EYES: Normal reaction of pupils, equal size. NOSE: Clear with pink turbinates. THROAT: No erythema or exudates. NECK: No masses, no JVD. CHEST: No chest wall deformity. LUNGS: Equal air entry with bilateral end expiratory wheeze, diminished. CVS: S1 and S2 normal with no audible murmur, regular rhythm. ABDOMEN: No hepatosplenomegaly, normal bowel sounds, no guarding or rigidity. The patient has direct tenderness diffuse made over the anterior abdominal wall. No rebound tenderness or guarding. Bowel sounds are hypoactive. SPINE: No scoliosis or deformity SKIN: No rashes CENTRAL NERVOUS SYSTEM: No focal deficits, tone is normal in all 4 extremities. EXTREMITIES: There is no peripheral edema. No clubbing, no cyanosis. Peripheral pulses are intact. Results - Laboratory Findings CBC and BMP: 07/29/22 07:45 07/29/22 07:45 ABG WBC 18.7 k/uL (3.8-10.6) H 07/29/22 07:45 RBC 4.55 m/uL (4.30-5.90) 07/29/22 07:45 Hgb 13.4 gm/dL (13.0-17.5) 07/29/22 07:45 Hct 41.4 % (39.0-53.0) 07/29/22 07:45 MCV 91.2 fL (80.0-100.0) 07/29/22 07:45 MCH 29.4 pg (25.0-35.0) 07/29/22 07:45 MCHC 32.3 g/dL (31.0-37.0) 07/29/22 07:45 RDW 14.0 % (11.5-15.5) 07/29/22 07:45 Plt Count 243 k/uL (150-450) 07/29/22 07:45 MPV 7.2 07/29/22 07:45 Neutrophils % 92 % 07/29/22 07:45 Lymphocytes % 5 % 07/29/22 07:45 Monocytes % 2 % 07/29/22 07:45 Eosinophils % 1 % 07/29/22 07:45 Basophils % 0 % 07/29/22 07:45 Neutrophils # 17.1 k/uL (1.3-7.7) H 07/29/22 07:45 Lymphocytes # 1.0 k/uL (1.0-4.8) 07/29/22 07:45 Monocytes # 0.4 k/uL (0-1.0) 07/29/22 07:45 Eosinophils # 0.1 k/uL (0-0.7) 07/29/22 07:45 Basophils # 0.0 k/uL (0-0.2) 07/29/22 07:45 PT 9.4 sec (9.0-12.0) 07/29/22 07:45 INR 0.9 (<1.2) 07/29/22 07:45 APTT 19.7 sec (22.0-30.0) L 07/29/22 07:45 Sodium 140 mmol/L (137-145) 07/29/22 07:45 Potassium 4.0 mmol/L (3.5-5.1) 07/29/22 07:45 Chloride 105 mmol/L (98-107) 07/29/22 07:45 Carbon Dioxide 29 mmol/L (22-30) 07/29/22 07:45 Anion Gap 6 mmol/L 07/29/22 07:45 BUN 21 mg/dL (9-20) H 07/29/22 07:45 Creatinine 0.97 mg/dL (0.66-1.25) 07/29/22 07:45 Est GFR (CKD-EPI)AfAm >90 (>60 ml/min/1.73 sqM) 07/29/22 07:45 Est GFR (CKD-EPI)NonAf 78 (>60 ml/min/1.73 sqM) 07/29/22 07:45 Glucose 132 mg/dL (74-99) H 07/29/22 07:45 Plasma Lactic Acid Luc[place] 1.3 mmol/L (0.7-2.0) 07/29/22 10:06 Calcium 8.7 mg/dL (8.4-10.2) 07/29/22 07:45 Total Bilirubin 0.6 mg/dL (0.2-1.3) 07/29/22 07:45 AST 21 U/L (17-59) 07/29/22 07:45 ALT 23 U/L (4-49) 07/29/22 07:45 Alkaline Phosphatase 54 U/L (38-126) 07/29/22 07:45 Troponin I <0.012 ng/mL (0.000-0.034) 07/29/22 07:45 Total Protein 5.9 g/dL (6.3-8.2) L 07/29/22 07:45 Albumin 3.5 g/dL (3.5-5.0) 07/29/22 07:45 Amylase 57 U/L (30-110) 07/29/22 07:45 Lipase 138 U/L (23-300) 07/29/22 07:45 Urine Color Yellow 07/29/22 08:20 Urine Appearance Clear (Clear) 07/29/22 08:20 Urine pH 6.0 (5.0-8.0) 07/29/22 08:20 Ur Specific [place] 1.023 (1.001-1.035) 07/29/22 08:20 Urine Protein Trace (Negative) H 07/29/22 08:20 Urine Glucose (UA) Negative (Negative) 07/29/22 08:20 Urine Ketones Negative (Negative) 07/29/22 08:20 Urine Blood Negative (Negative) 07/29/22 08:20 Urine Nitrite Negative (Negative) 07/29/22 08:20 Urine Bilirubin Negative (Negative) 07/29/22 08:20 Urine Urobilinogen <2.0 mg/dL (<2.0) 07/29/22 08:20 Ur Leukocyte Esterase Negative (Negative) 07/29/22 08:20 Coronavirus (PCR) Not Detected (Not Detectd) 07/29/22 07:45 PT/INR, D-dimer PT 9.4 sec (9.0-12.0) 07/29/22 07:45 INR 0.9 (<1.2) 07/29/22 07:45 Abnormal lab findings: Abnormal Labs 0507/29/22 07/29/22 07:45 07:45 07:45 WBC 18.7 H Neutrophils # 17.1 H APTT 19.7 L BUN 21 H Glucose 132 H Total Protein 5.9 L Urine Protein 07/29/22 08:20 WBC Neutrophils # APTT BUN Glucose Total Protein Urine Protein Trace H - Diagnostic Findings Chest x-ray: image reviewed Assessment and Plan Plan: Acute perforated diverticulitis, with secondary abdominal pain. The patient has developed acute abdominal pain due to complicated/perforated sigmoid diverticulitis with free air intraperitoneally. No evidence of abscess formation at this point in time. The patient is currently on IV antibiotics. We'll try to manage this conservatively with bowel rest and antibiotics. Surgery is also on the case. Abdominal pain secondary to above Advanced COPD with an FEV1 of 26% of predicted, the patient is chronically oxygen and steroid dependent taking prednisone 10 mg by mouth daily. History of diverticulosis Recent hospitalization for an acute COPD exacerbation back in June 2022, treated and the patient has recovered Ex-smoker and the patient quit smoking 2 years ago Prostate cancer Acid reflux Chronic hypoxic respiratory failure maternal O2 at 2 L nasal cannula Plan Continue IV antibiotics GEN surgeries on the case Lactic acid level is not elevated This will be a high-risk surgical case if surgery is contemplated specially the patient has chronic COPD and the patient has been maintained on steroids on a chronic basis. Fortunately, his COPD is currently stable. He has advanced COPD with an FEV1 of 26% of predicted. Should be involved in his care should there be any surgical interventions in the future. For now, he'll be admitted to the hospital, manage conservatively, kept nothing by mouth, will be given IV fluids and antibiotics. We'll hold steroids for now. Will given bronchodilators. We'll give him Lovenox for DVT prophylaxis. Morphine or Dilaudid for pain control. Will follow.
[2022-07-29] MEDS ORDERED: ENOXAPARIN 30 MG/0.3 ML SYRINGE SQ SCH (13:30)
--- NOTE | 2022-07-29 14:02 | P.GSHP ---
History of Present Illness H&P Date: 07/29/22 Chief Complaint: abdominal pain this is a 72-year-old male with complaints of abdominal pain. Patient was seen in the emergency room. Patient found evidence of perforated diverticulitis. Patient states that his pain is improved. He has an extensive history of COPD with chronic steroid use. Past Medical History Past Medical History: Cancer, COPD, GERD/Reflux Additional Past Medical History / Comment(s): positional upper abdominal pain stated when he changes position from laying to sitting and standing. History of Any Multi-Drug Resistant Organisms: None Reported Past Surgical History: Orthopedic Surgery, Tonsillectomy Additional Past Surgical History / Comment(s): Right shoulder arthroscopy. Colonoscopy. EGD Past Anesthesia/Blood Transfusion Reactions: No Reported Reaction Additional Past Anesthesia/Blood Transfusion Reaction / Comment(s): Pt has CLAUSTROPHOBIA Past Psychological History: No Psychological Hx Reported Additional Psychological History / Comment(s): . Smoking Status: Former smoker Past Alcohol Use History: None Reported Additional Past Alcohol Use History / Comment(s): Pt started smokig in 1967, QUIT JULY 2020. Pt quit drinking 20 years ago. Past Drug Use History: None Reported - Past Family History Father Family Medical History: Cancer Mother Family Medical History: Cancer Additional Family Medical History / Comment(s): Mother in her 50s with some form of cancer. Pt/spouse do not recall type of cancer. Medications and Allergies Home Medications Medication Instructions Recorded Confirmed Type Multivitamins, Thera [Multivitamin 1 tab PO DAILY 01/22/20 07/29/22 History (formulary)] Ipratropium-Albuterol Nebulize 3 ml INHALATION RT-QID PRN 07/30/21 07/29/22 History [Duoneb 0.5 mg-3 mg/3 ml Soln] Fluticasone Propion/Salmeterol 1 puff INHALATION RT-BID 07/16/22 07/29/22 History [Wixela 250-50 Inhub] predniSONE 5 mg PO DIRECTED 07/16/22 07/29/22 History Ipratropium-Albuterol Nebulize 3 ml INHALATION RT-QID 2 Days each 07/18/22 07/29/22 Rx [Duoneb 0.5 mg-3 mg/3 ml Soln] Pantoprazole Sodium [Protonix] 40 mg PO DAILY #30 tab 07/18/22 07/29/22 Rx guaiFENesin [Mucinex] 600 mg PO Q12HR tab 07/18/22 07/29/22 Rx predniSONE See Taper PO DAILY 07/29/22 07/29/22 History Allergies Allergy/AdvReac Type Severity Reaction Status Date / Time No Known Allergies Allergy Verified 07/29/22 09:06 Surgical - Exam Vital Signs Temp Pulse Resp BP Pulse Ox 96.8 F L 89 28 H 157/94 95 07/29/22 07:03 07/29/22 07:03 07/29/22 07:03 07/29/22 07:03 07/29/22 07:03 - General well developed, well nourished, no distress - Eyes PERRL - ENT normal pinna, normal nares - Neck no masses - Respiratory normal expansion - Cardiovascular Rhythm: regular - Abdomen Abdomen is soft. There is mild tenderness throughout. There is left lower quadrant tenderness. There is no rebound or guarding. Abdomen: soft Results - Labs 07/29/22 07:45 07/29/22 07:45 Abnormal Lab Results - Last 24 Hours (Table) 07/29/22 07/29/22 07/29/22 Range/Units 07:45 07:45 07:45 WBC 18.7 H (3.8-10.6) k/uL Neutrophils # 17.1 H (1.3-7.7) k/uL APTT 19.7 L (22.0-30.0) sec BUN 21 H (9-20) mg/dL Glucose 132 H (74-99) mg/dL Total Protein 5.9 L (6.3-8.2) g/dL Urine Protein (Negative) 07/29/22 Range/Units 08:20 WBC (3.8-10.6) k/uL Neutrophils # (1.3-7.7) k/uL APTT (22.0-30.0) sec BUN (9-20) mg/dL Glucose (74-99) mg/dL Total Protein (6.3-8.2) g/dL Urine Protein Trace H (Negative) Diabetes panel 07/29/22 Range/Units 07:45 Sodium 140 (137-145) mmol/L Potassium 4.0 (3.5-5.1) mmol/L Chloride 105 (98-107) mmol/L Carbon Dioxide 29 (22-30) mmol/L BUN 21 H (9-20) mg/dL Creatinine 0.97 (0.66-1.25) mg/dL Glucose 132 H (74-99) mg/dL Calcium 8.7 (8.4-10.2) mg/dL AST 21 (17-59) U/L ALT 23 (4-49) U/L Alkaline Phosphatase 54 (38-126) U/L Total Protein 5.9 L (6.3-8.2) g/dL Albumin 3.5 (3.5-5.0) g/dL Calcium panel 07/29/22 Range/Units 07:45 Calcium 8.7 (8.4-10.2) mg/dL Albumin 3.5 (3.5-5.0) g/dL Pituitary panel 07/29/22 Range/Units 07:45 Sodium 140 (137-145) mmol/L Potassium 4.0 (3.5-5.1) mmol/L Chloride 105 (98-107) mmol/L Carbon Dioxide 29 (22-30) mmol/L BUN 21 H (9-20) mg/dL Creatinine 0.97 (0.66-1.25) mg/dL Glucose 132 H (74-99) mg/dL Calcium 8.7 (8.4-10.2) mg/dL Adrenal panel 07/29/22 Range/Units 07:45 Sodium 140 (137-145) mmol/L Potassium 4.0 (3.5-5.1) mmol/L Chloride 105 (98-107) mmol/L Carbon Dioxide 29 (22-30) mmol/L BUN 21 H (9-20) mg/dL Creatinine 0.97 (0.66-1.25) mg/dL Glucose 132 H (74-99) mg/dL Calcium 8.7 (8.4-10.2) mg/dL Total Bilirubin 0.6 (0.2-1.3) mg/dL AST 21 (17-59) U/L ALT 23 (4-49) U/L Alkaline Phosphatase 54 (38-126) U/L Total Protein 5.9 L (6.3-8.2) g/dL Albumin 3.5 (3.5-5.0) g/dL - Imaging CT scan - abdomen: report reviewed ( Diverticulitis with perforation and multiple small pockets of free air) Assessment and Plan Assessment: perforated diverticulitis. Patient will receive fluid hydration IV antibiotic therapy and n.p.o. The patient is high risk for surgery due to his COPD. The patient will continue IV antibiotics. If his condition changes he will require exploratory laparotomy.
[2022-07-29] MEDS ORDERED: IPRATROPIUM-ALBUTEROL 3 ML NEB INHALATION PRN (16:47)
--- NOTE | 2022-07-29 17:10 | P.CONS ---
History of Present Illness - Reason for Consult Consult date: 07/29/22 Medical Management Requesting physician: Reynold Moyer - History of Present Illness History of Presenting Illness: Patient is a very pleasant 72-year-old male with a past medical history of COPD home oxygen dependent on 3 L at all times, diverticulosis and GERD. He presented to the emergency department with a chief complaint of abdominal pain. Patient underwent full evaluation in the ED. Labs completed and reviewed. CBC showing severe leukocytosis with WBC count of 18.7 with left shift with neutrophils of 17.1. BMP revealing mild prerenal azotemia with BUN of 21. Glucose was 132 and lactic acid was 1.3. Liver profile unremarkable. Troponin less than 0.012. Urinalysis was negative for infection. Covid PCR was negative. EKG was completed showing normal sinus rhythm and 99 bpm with no noted T-wave or ST abnormalities showing no signs of acute ischemia on personal review and interpretation. Chest x-ray completed and radiology report reviewed showing COPD changes but negative for acute cardiopulmonary process. CT abdomen and pelvis completed and radiology report reviewed, exam positive for acute sigmoid diverticulitis complicated by perforation and pockets of free intraperitoneal air measuring up to 5.5 cm accompanied by trace lower abdominal ascites, secondary small bowel ileus, small to moderate sized hiatal hernia, mild circumferential distal esophageal wall thickening, and prostamegaly with prostate measurement of 5.2 cm wide. Patient was admitted under Gen. surgery team and we were consulted for medical management throughout hospitalization. Patient seen and fully evaluated at bedside. At this time patient was resting comfortably in bed with at bedside. Patient reports abdominal pain remains to left lower and right lower quadrants currently improved status post administration of pain medications. Patient denies further episodes of nausea or vomiting. He denies having any chest pain, palpitations, or shortness of breath. Review of systems: Pertinent positives and negatives as discussed in HPI, a complete review of systems was performed and all other systems are negative. Physical exam: Vital signs reviewed and stable. General: Nontoxic, no distress and appears stated age. Derm: Skin warm and dry, normal coloration for ethnicity. Head: Atraumatic, normocephalic and symmetric. Eyes: EOMs intact, no lid lag, and anicteric sclera Mouth: no lip lesions, mucus membranes moist Cardiovascular: regular rate and rhythm with normal S1S2, no murmur, positive posterior tibial pulses bilaterally, and cap refill < 2 seconds. Lungs: Respirations even, regular, and unlabored on 3 L O2 via nasal cannula L ungs tight and slightly diminished with soft expiratory wheezes. no rhonchi, no rales, no crackles, and no accessory muscle usage. Abdominal: soft, nontender to palpation, no guarding, no appreciable organomegaly Ext: ROM intact. No gross muscle atrophy, no edema, no contractures Neuro: Speech clear, face symmetrical and CN II-XII grossly intact with no noted focal neuro deficits Psych: Alert and oriented to person, place, time, and situation. Appropriate and pleasant affect. Assessment and Plan of Care: Acute perforated diverticulitis Abdominal pain secondary to above Leukocytosis secondary to above -Labs completed and reviewed. CBC showing severe leukocytosis with WBC count of 18.7 with left shift with neutrophils of 17.1. BMP revealing mild prerenal azotemia with BUN of 21. Glucose was 132 and lactic acid was 1.3. Liver profile unremarkable. Troponin less than 0.012. Urinalysis was negative for infection. Covid PCR was negative. -EKG was completed showing normal sinus rhythm and 99 bpm with no noted T-wave or ST abnormalities showing no signs of acute ischemia on personal review and interpretation. -CT abdomen and pelvis completed and radiology report reviewed, exam positive for acute sigmoid diverticulitis complicated by perforation and pockets of free intraperitoneal air measuring up to 5.5 cm accompanied by trace lower abdominal ascites, secondary small bowel ileus, small to moderate sized hiatal hernia, mild circumferential distal esophageal wall thickening, and prostamegaly with prostate measurement of 5.2 cm wide. Patient was admitted under Gen. surgery team and we were consulted for medical management throughout hospitalization. -Discontinued normal saline and started patient on D5.45 at 100 mL's per hour while patient remains nothing by mouth. -Order placed for glycemic protocol with planned care glucose checks every 4 hours while patient remains nothing by mouth. -Recommend continuing with Zosyn 3.375 g every 8 hours. -Order placed for repeat CBC and CMP tomorrow morning. We will follow-up on these results. -Blood cultures obtained, will follow-up on results. Advanced COPD Chronic hypoxemic respiratory failure -Pulmonary following -Chest x-ray completed and radiology report reviewed showing COPD changes but negative for acute cardiopulmonary process. -Oxygenation to be administered and titrated as needed to maintain SPO2 equal to or greater than 92% -Telemetry monitoring. -Monitor Pulse-oximetry -Duonebs scheduled for times daily as well as as needed as needed for SOB and/or wheezing -Incentive Spirometry Thank you for allowing us to participate in the care of this pleasant patient. Do not hesitate to contact us with questions. Someone can be reached from the [facility] hospitalist group all hours of the day at [phone] or via [employer]. Patient was seen independently by Nurse Practitioner. This document was prepared using [employer] dictation software. Please allow for errors in belt and link assembly supervisor while rare they do occur. Past Medical History Past Medical History: Cancer, COPD, GERD/Reflux Additional Past Medical History / Comment(s): positional upper abdominal pain stated when he changes position from laying to sitting and standing. History of Any Multi-Drug Resistant Organisms: None Reported Past Surgical History: Orthopedic Surgery, Tonsillectomy Additional Past Surgical History / Comment(s): Right shoulder arthroscopy. Colonoscopy. EGD Past Anesthesia/Blood Transfusion Reactions: No Reported Reaction Additional Past Anesthesia/Blood Transfusion Reaction / Comm: Pt has CLAUSTROPHOBIA Past Psychological History: No Psychological Hx Reported Additional Psychological History / Comment(s): . Smoking Status: Former smoker Past Alcohol Use History: None Reported Additional Past Alcohol Use History / Comment(s): Pt started smokig in 1967, QUIT JULY 2020. Pt quit drinking 20 years ago. Past Drug Use History: None Reported - Past Family History Father Family Medical History: Cancer Mother Family Medical History: Cancer Additional Family Medical History / Comment(s): Mother in her 50s with some form of cancer. Pt/spouse do not recall type of cancer. Medications and Allergies Home Medications Medication Instructions Recorded Confirmed Type Multivitamins, Thera [Multivitamin 1 tab PO DAILY 01/22/20 07/29/22 History (formulary)] Ipratropium-Albuterol Nebulize 3 ml INHALATION RT-QID PRN 07/30/21 07/29/22 History [Duoneb 0.5 mg-3 mg/3 ml Soln] Fluticasone Propion/Salmeterol 1 puff INHALATION RT-BID 07/16/22 07/29/22 History [Wixela 250-50 Inhub] predniSONE 5 mg PO DIRECTED 07/16/22 07/29/22 History Ipratropium-Albuterol Nebulize 3 ml INHALATION RT-QID 2 Days each 07/18/22 07/29/22 Rx [Duoneb 0.5 mg-3 mg/3 ml Soln] Pantoprazole Sodium [Protonix] 40 mg PO DAILY #30 tab 07/18/22 07/29/22 Rx guaiFENesin [Mucinex] 600 mg PO Q12HR tab 07/18/22 07/29/22 Rx predniSONE See Taper PO DAILY 07/29/22 07/29/22 History Allergies Allergy/AdvReac Type Severity Reaction Status Date / Time No Known Allergies Allergy Verified 07/29/22 09:06 Physical Exam Vitals: Vital Signs Temp Pulse Pulse Resp BP BP Pulse Ox 07/29/22 16:11 98.7 F 80 18 117/66 96 07/29/22 14:00 98.0 F 109 H 18 118/77 94 L 07/29/22 07:54 107 H 07/29/22 07:43 100 07/29/22 07:03 96.8 F L 89 28 H 157/94 95 Intake and Output 07/29/22 07/29/22 07/29/22 06:59 14:59 22:59 Other: Weight 59.421 kg Results CBC & Chem 7: 07/29/22 07:45 07/29/22 07:45 Labs: Abnormal Lab Results - Last 24 Hours (Table) 07/29/22 07/29/22 07/29/22 Range/Units 07:45 07:45 07:45 WBC 18.7 H (3.8-10.6) k/uL Neutrophils # 17.1 H (1.3-7.7) k/uL APTT 19.7 L (22.0-30.0) sec BUN 21 H (9-20) mg/dL Glucose 132 H (74-99) mg/dL Total Protein 5.9 L (6.3-8.2) g/dL Urine Protein (Negative) 07/29/22 Range/Units 08:20 WBC (3.8-10.6) k/uL Neutrophils # (1.3-7.7) k/uL APTT (22.0-30.0) sec BUN (9-20) mg/dL Glucose (74-99) mg/dL Total Protein (6.3-8.2) g/dL Urine Protein Trace H (Negative)
[2022-07-29] MEDS ORDERED: DEXTROSE 50% SYRINGE 50 ML IVP PRN ×2 (20:05)
[2022-07-29] MEDS: IPRATROPIUM-ALBUTEROL 3 ML NEB INHALATION SCH (20:14)
[2022-07-29] MEDS: PIPERACILLIN-TAZOBACTAM 3.375 GM in SODIUM CHLORIDE 0.9% 100 ML IVPB SCH (20:47)
[2022-07-29] MEDS: DEXTROSE 5%-0.45% NACL 1,000 ML IV SCH (20:50)
[2022-07-30 02:05] LABS: Glucose,Whole Blood 109 mg/dL (70-110)
[2022-07-30] MEDS: PIPERACILLIN-TAZOBACTAM 3.375 GM in SODIUM CHLORIDE 0.9% 100 ML IVPB SCH ×3 (03:51→21:09)
[2022-07-30] MEDS: DEXTROSE 5%-0.45% NACL 1,000 ML IV SCH ×2 (03:53→14:54)
[2022-07-30 05:43] LABS: Glucose,Whole Blood 90 mg/dL (70-110)
[2022-07-30 08:28] LABS: Glucose,Whole Blood 94 mg/dL (70-110)
[2022-07-30] MEDS: PANTOPRAZOLE 40 MG/10 ML VIAL IV SCH (09:06)
[2022-07-30] MEDS: ENOXAPARIN 40 MG/0.4 ML SYRINGE SQ SCH (09:06)
[2022-07-30] MEDS: IPRATROPIUM-ALBUTEROL 3 ML NEB INHALATION SCH ×4 (09:13→21:48)
--- NOTE | 2022-07-30 09:22 | P.PN ---
Progress Note - Text Progress Note Date: 07/30/22 The patient states he has better today. He has less abdominal pain. On exam pulses in the 100 range which is improved from yesterday. Vital signs appear stable. Abdomen is soft there is tenderness left lower quadrant. There is no rebound or guarding. Severe COPD Perforated diverticulitis. Patient can receive IV antibiotics and medical management. If his condition changes he will require sigmoid colectomy. Patient is a high surgical risk due to his underlying COPD.
[2022-07-30 09:50] LABS: African American GFR (CKD) 62.6 (60.0-200.0); Albumin 3.2 g/dL (3.8-4.9); Albumin/Globulin Ratio 2.03 (1.60-3.17); Anion Gap 9.6 mmol/L (10.00-18.00); BUN/Creat Ratio 16.34 Ratio (12.00-20.00); Blood Urea Nitrogen 21.4 mg/dL (9.0-27.0); Calcium 8.3 mg/dL (8.7-10.3); Carbon Dioxide 26.9 mmol/L (20.0-27.5); Globulin 1.6 g/dL (1.6-3.3); Potassium 4.3 mmol/L (3.5-5.5); Total Bilirubin 0.7 mg/dL (0.30-1.20); Total Protein 4.8 g/dL (6.2-8.2)
[2022-07-30 11:21] LABS: Basophils # (A) 0.02 X 10*3/uL (0.00-0.10); Basophils % (A) 0.1 %; Eosinophils # (A) 0 X 10*3/uL (0.04-0.35); Eosinophils % (A) 0 %; HCT 35.7 % (39.6-50.0); HGB 11.1 g/dL (13.0-17.0); Immature Grans, Automated 0.6 %; Immature Platelet Fraction 2.2 % (1.1-6.1); Lymphocytes # (A) 0.64 X 10*3/uL (0.90-5.00); Lymphocytes % (A) 4.5 %; MCH 29.4 pg (27.0-32.0); MCHC 31.1 g/dL (32.0-37.0); MCV 94.4 fL (80.0-97.0); Mean Platelet Volume 9.5 fL (9.5-12.2); Monocytes # (A) 0.53 X 10*3/uL (0.20-1.00); Monocytes % (A) 3.7 %; NRBC Per 100 WBC 0 /100 WBCS (0.0-0.0); Neutrophils # (A) 12.94 X 10*3/uL (1.80-7.70); Neutrophils % (A) 91.1 %; Platelet Count 245 X 10*3/uL (140-440); RBC 3.78 X 10*6/uL (4.40-5.60); RDW 14.2 % (11.5-14.5); WBC 14.21 X 10*3/uL (4.50-10.00)
[2022-07-30 12:04] LABS: Glucose,Whole Blood 127 mg/dL (70-110)
--- NOTE | 2022-07-30 12:28 | P.PN ---
Subjective Progress Note Date: 07/30/22 I was asked to evaluate this patient because of his advanced COPD and ongoing abdominal complications. The patient was seen in the emergency department. The patient is known to have diverticulosis he came in for an acute abdominal pain this morning. CAT scan of the abdomen was done and the patient was found to have acute sigmoid diverticulitis. This was a comp acute diverticulitis as perforation suspected and the patient had pockets of free intraperitoneal air measuring up to 5.5 cm in size. There is also trace lower abdominal ascites. No evidence of any abscess formation. Is also small bowel ileus. There is moderate size hiatal hernia also. The patient has a large prostate. Is known to have prostate cancer. The patient is also known to have advanced COPD. The patient is auction dependent. The patient is steroid dependent and is taking 10 mg of prednisone on a daily basis on outpatient basis. He has been followed up through our office. He has exertional dyspnea which is chronic in his significant limitation in exercise capacity because of his advanced COPD. No chest pain. No worsening shortness of breath. No swelling lower extremities. No previous history of DVT or pulmonary embolism. No nausea or emesis. No aspiration. GI surgeries on the case. Currently is on antibiotics. No plans for any surgery at this point in time. Blood work shows a WBC count of 18, h emoglobin 13, normal cognition profile, BUN is 20 over the creatinine of 0.9. LFTs are normal. Lactic acid level is at 1.3. On today's evaluation of 07/30/2022, the patient's abdomen is less tender. The patient remains nothing by mouth. No worsening shortness of breath. The patient is on IV Zosyn. The patient is going to be treated conservatively. White cell count is at 14 with a hemoglobin of 11.1 and a platelet count of 245 noted the white cycles lower compared to yesterday. BUN is at 21 with a creatinine of 1.3. Sodium is at 143. Awake and alert and communicating. He remains on oxygen at 2 L/m nasal cannula. Objective - Vital Signs Vital signs: Vital Signs Temp 99.5 F 07/30/22 07:15 Pulse 100 07/30/22 09:24 Resp 18 07/30/22 09:24 BP 127/75 07/30/22 07:15 Pulse Ox 96 07/30/22 09:15 FiO2 Intake & Output 07/29/22 07/30/22 07/30/22 18:59 06:59 18:59 Output Total 350 Balance -350 Weight 59.421 kg Output: Urine 350 Other: Voiding Method Toilet Toilet Urinal - Exam GENERAL EXAM: Alert, pleasant 72-year-old male, on 2 L nasal cannula, comfortable in no apparent distress. The patient is currently on 2 L of oxygen by nasal cannula and his breathing is nonlabored HEAD: Normocephalic. EYES: Normal reaction of pupils, equal size. NOSE: Clear with pink turbinates. THROAT: No erythema or exudates. NECK: No masses, no JVD. CHEST: No chest wall deformity. LUNGS: Equal air entry with bilateral end expiratory wheeze, diminished. CVS: S1 and S2 normal with no audible murmur, regular rhythm. ABDOMEN: No hepatosplenomegaly, normal bowel sounds, no guarding or rigidity. The patient has direct tenderness diffuse made over the anterior abdominal wall. No rebound tenderness or guarding. Bowel sounds are hypoactive. SPINE: No scoliosis or deformity SKIN: No rashes CENTRAL NERVOUS SYSTEM: No focal deficits, tone is normal in all 4 extremities. EXTREMITIES: There is no peripheral edema. No clubbing, no cyanosis. Peripheral pulses are intact. - Labs CBC & Chem 7: 07/30/22 07:07 07/30/22 07:07 Labs: Abnormal Lab Results - Last 24 Hours (Table) 07/30/22 Range/Units 07:07 Anion Gap 9.60 L (10.00-18.00) mmol/L Est GFR (CKD-EPI)NonAf 54.0 L (60.0-200.0) Calcium 8.3 L (8.7-10.3) mg/dL Total Protein 4.8 L (6.2-8.2) g/dL Albumin 3.2 L (3.8-4.9) g/dL Assessment and Plan Plan: Acute perforated diverticulitis, with secondary abdominal pain. The patient has developed acute abdominal pain due to complicated/perforated sigmoid diverticulitis with free air intraperitoneally. No evidence of abscess formation at this point in time. The patient is currently on IV antibiotics. We'll try to manage this conservatively with bowel rest and antibiotics. Surgery is also on the case. Clinically slightly improved compared to yesterday Abdominal pain secondary to above Advanced COPD with an FEV1 of 26% of predicted, the patient is chronically oxygen and steroid dependent taking prednisone 10 mg by mouth daily. Acute leukocytosis secondary to above, improving History of diverticulosis Recent hospitalization for an acute COPD exacerbation back in June 2022, treated and the patient has recovered Ex-smoker and the patient quit smoking 2 years ago Prostate cancer Acid reflux Chronic hypoxic respiratory failure maternal O2 at 2 L nasal cannula Plan Continue IV antibiotics Abdomen is less tender compared to yesterday GEN surgeries on the case Lactic acid level is not elevated Continue IV Zosyn Continue conservative management with IV antibiotics Overall pulmonary status remains stable This will be a high-risk surgical case if surgery is contemplated specially the patient has chronic COPD and the patient has been maintained on steroids on a chronic basis. Fortunately, his COPD is currently stable. He has advanced COPD with an FEV1 of 26% of predicted. Should be involved in his care should there be any surgical interventions in the future. For now, he'll be admitted to the hospital, manage conservatively, kept nothing by mouth, will be given IV fluids and antibiotics. We'll hold steroids for now. Will given bronchodilators. We'll give him Lovenox for DVT prophylaxis. Morphine or Dilaudid for pain control. Will follow.
[2022-07-30] MEDS: HYDROCORTISONE SUCCINATE 100 MG/2 ML VIAL IV SCH ×2 (12:31→17:15)
--- NOTE | 2022-07-30 13:30 | P.PN ---
Subjective Progress Note Date: 07/30/22 Hospital course: Patient is a very pleasant 72-year-old male with a past medical history of COPD home oxygen dependent on 3 L at all times, diverticulosis and GERD. He presented to the emergency department with a chief complaint of abdominal pain. Patient underwent full evaluation in the ED. Labs completed and reviewed. CBC showing severe leukocytosis with WBC count of 18.7 with left shift with neutrophils of 17.1. BMP revealing mild prerenal azotemia with BUN of 21. Glucose was 132 and lactic acid was 1.3. Liver profile unremarkable. Troponin less than 0.012. Urinalysis was negative for infection. Covid PCR was negative. EKG was completed showing normal sinus rhythm and 99 bpm with no noted T-wave or ST abnormalities showing no signs of acute ischemia on personal review and interpretation. Chest x-ray completed and radiology report reviewed showing COPD changes but negative for acute cardiopulmonary process. CT abdomen and pelvis completed and radiology report reviewed, exam positive for acute sigmoid diverticulitis complicated by pe rforation and pockets of free intraperitoneal air measuring up to 5.5 cm accompanied by trace lower abdominal ascites, secondary small bowel ileus, small to moderate sized hiatal hernia, mild circumferential distal esophageal wall thickening, and prostamegaly with prostate measurement of 5.2 cm wide. Patient was admitted under Gen. surgery team and we were consulted for medical management throughout hospitalization. Physical exam: Patient seen and fully evaluated at bedside this morning. Patient reports improved pain but continues to state mild bilateral lower quadrant pain worse with movement or coughing. Patient denies any further episodes of nausea and denies any other complaints at this time. Vital signs reviewed and stable. General: Nontoxic, no distress and appears stated age. Derm: Skin warm and dry, normal coloration for ethnicity. Head: Atraumatic, normocephalic and symmetric. Eyes: EOMs intact, no lid lag, and anicteric sclera Mouth: no lip lesions, mucus membranes moist Cardiovascular: regular rate and rhythm with normal S1S2, no murmur, positive posterior tibial pulses bilaterally, and cap refill < 2 seconds. Lungs: Respirations even, regular, and unlabored on 3 L O2 via nasal cannula Lungs tight and slightly diminished with soft expiratory wheezes. no rhonchi, no rales, no crackles, and no accessory muscle usage. Abdominal: soft, tenderness to palpation, no guarding, no appreciable organomegaly Ext: ROM intact. No gross muscle atrophy, no edema, no contractures Neuro: Speech clear, face symmetrical and CN II-XII grossly intact with no noted focal neuro deficits Psych: Alert and oriented to person, place, time, and situation. Appropriate and pleasant affect. Assessment and Plan of Care: Acute perforated diverticulitis Abdominal pain secondary to above Leukocytosis secondary to above -Labs completed and reviewed. CBC showing slight improvement of leukocytosis with WBC count decreasing down to 14.27 and hemoglobin stable at 11.1. BMP was unremarkable. -Patient remains nothing by mouth, we will continue with IV fluid hydration with D5.45 at 100 mL's per hour at this time. -Continue glycemic protocol with planned care glucose checks every 6 hours while patient remains nothing by mouth. -Recommend continuing with Zosyn 3.375 g every 8 hours. -Order placed for repeat CBC and CMP tomorrow morning. We will follow-up on these results. -Blood cultures obtained, will follow-up on results. Advanced COPD Chronic hypoxemic respiratory failure -Pulmonary following -Chest x-ray completed 07/29/22 and radiology report reviewed showing COPD changes but negative for acute cardiopulmonary process. -Oxygenation to be administered and titrated as needed to maintain SPO2 equal to or greater than 92% -Telemetry monitoring. -Monitor Pulse-oximetry -Duonebs scheduled for times daily as well as as needed as needed for SOB and/or wheezing -Incentive Spirometry DVT prophylaxis currently with Lovenox Thank you for allowing us to participate in the care of this pleasant patient. Do not hesitate to contact us with questions. Someone can be reached from the [facility] hospitalist group all hours of the day at [phone] or via perfect serve. Patient was seen independently by Nurse Practitioner. This document was prepared using [employer] dictation software. Please allow for errors in front desk representative while rare they do occur. Objective - Vital Signs Vital signs: Vital Signs Temp 99.5 F 07/30/22 07:15 Pulse 100 07/30/22 09:13 Resp 18 07/30/22 09:13 BP 127/75 07/30/22 07:15 Pulse Ox 96 07/30/22 09:15 FiO2 Intake & Output 07/29/22 07/30/22 07/30/22 18:59 06:59 18:59 Output Total 350 Balance -350 Weight 59.421 kg Output: Urine 350 Other: Voiding Method Toilet Toilet Urinal - Labs CBC & Chem 7: 07/30/22 07:07 07/30/22 07:07
[2022-07-30] MEDS ORDERED: diphenhydrAMINE 50 MG/ML 1 ML VIAL IVP STA (13:35)
[2022-07-30] MEDS ORDERED: PROCHLORPERAZINE INJ 10 MG/2 ML VIAL IVP STA (13:35)
[2022-07-30] MEDS ORDERED: KETOROLAC 15 MG/ML 1 ML VIAL IVP STA (13:35)
[2022-07-30 17:53] LABS: Glucose,Whole Blood 153 mg/dL (70-110)
[2022-07-30 23:53] LABS: Glucose,Whole Blood 185 mg/dL (70-110)
[2022-07-31] MEDS: HYDROCORTISONE SUCCINATE 100 MG/2 ML VIAL IV SCH ×4 (00:49→23:48)
[2022-07-31] MEDS: DEXTROSE 5%-0.45% NACL 1,000 ML IV SCH ×3 (00:52→21:00)
[2022-07-31] MEDS: PIPERACILLIN-TAZOBACTAM 3.375 GM in SODIUM CHLORIDE 0.9% 100 ML IVPB SCH ×3 (05:11→21:00)
[2022-07-31 05:40] LABS: Glucose,Whole Blood 187 mg/dL (70-110)
[2022-07-31] MEDS: PANTOPRAZOLE 40 MG/10 ML VIAL IV SCH (07:41)
[2022-07-31] MEDS: ENOXAPARIN 40 MG/0.4 ML SYRINGE SQ SCH (07:45)
[2022-07-31] MEDS: IPRATROPIUM-ALBUTEROL 3 ML NEB INHALATION SCH ×4 (08:36→19:57)
[2022-07-31 10:27] LABS: HCT 36.7 % (39.0-53.0); HGB 11.5 gm/dL (13.0-17.5); MCH 28.8 pg (25.0-35.0); MCHC 31.3 g/dL (31.0-37.0); MCV 92.2 fL (80.0-100.0); Mean Platelet Volume 7.5; Platelet Count 213 k/uL (150-450); RBC 3.97 m/uL (4.30-5.90); RDW 13.8 % (11.5-15.5); WBC 8.2 k/uL (3.8-10.6)
[2022-07-31 10:31] LABS: ALT 18 U/L (4-49); AST 21 U/L (17-59); African American GFR (CKD) 80 (>60 ml/min/1.73 sqM); Albumin 2.7 g/dL (3.5-5.0); Albumin/Globulin Ratio 1.3; Alkaline Phosphatase 44 U/L (38-126); Anion Gap 6 mmol/L; Blood Urea Nitrogen 16 mg/dL (9-20); Calcium 8.1 mg/dL (8.4-10.2); Carbon Dioxide 26 mmol/L (22-30); Chloride 105 mmol/L (98-107); Globulin 2.1 g/dL; Glucose 165 mg/dL (74-99); Magnesium 2.1 mg/dL (1.6-2.3); Non-African American GFR(CKD) 70 (>60 ml/min/1.73 sqM); Sodium 137 mmol/L (137-145); Total Bilirubin 0.6 mg/dL (0.2-1.3); Total Protein 4.8 g/dL (6.3-8.2)
--- NOTE | 2022-07-31 10:53 | P.PN ---
Subjective Progress Note Date: 07/31/22 I was asked to evaluate this patient because of his advanced COPD and ongoing abdominal complications. The patient was seen in the emergency department. The patient is known to have diverticulosis he came in for an acute abdominal pain this morning. CAT scan of the abdomen was done and the patient was found to have acute sigmoid diverticulitis. This was a comp acute diverticulitis as perforation suspected and the patient had pockets of free intraperitoneal air measuring up to 5.5 cm in size. There is also trace lower abdominal ascites. No evidence of any abscess formation. Is also small bowel ileus. There is moderate size hiatal hernia also. The patient has a large prostate. Is known to have prostate cancer. The patient is also known to have advanced COPD. The patient is auction dependent. The patient is steroid dependent and is taking 10 mg of prednisone on a daily basis on outpatient basis. He has been followed up through our office. He has exertional dyspnea which is chronic in his significant limitation in exercise capacity because of his advanced COPD. No chest pain. No worsening shortness of breath. No swelling lower extremities. No previous history of DVT or pulmonary embolism. No nausea or emesis. No aspiration. GI surgeries on the case. Currently is on antibiotics. No plans for any surgery at this point in time. Blood work shows a WBC count of 18, h emoglobin 13, normal cognition profile, BUN is 20 over the creatinine of 0.9. LFTs are normal. Lactic acid level is at 1.3. On today's evaluation of 07/30/2022, the patient's abdomen is less tender. The patient remains nothing by mouth. No worsening shortness of breath. The patient is on IV Zosyn. The patient is going to be treated conservatively. White cell count is at 14 with a hemoglobin of 11.1 and a platelet count of 245 noted the white cycles lower compared to yesterday. BUN is at 21 with a creatinine of 1.3. Sodium is at 143. Awake and alert and communicating. He remains on oxygen at 2 L/m nasal cannula. On 07/31/2022, the patient is doing well. No specific complaints. Abdominal pain is subsiding gradually. His COPD remains on IV Zosyn. No plans for any surgical intervention this point in time. The patient is known to have advanced COPD and the patient also has oxygen steroid dependent COPD and the patient is currently on hydrocortisone. IV fluids are in the form of D5 half-normal saline at rate of 100 mL an hour. The white cell count is down to 8.2 with hemoglobin 11.5 and a platelet count of 15. BUN is at 60 with a creatinine of 1 and his sodium level is at 137. Objective - Vital Signs Vital signs: Vital Signs Temp 98.1 F 07/31/22 07:33 Pulse 100 07/31/22 08:46 Resp 18 07/31/22 08:46 BP 122/73 07/31/22 07:33 Pulse Ox 99 07/31/22 08:36 FiO2 Intake & Output 07/30/22 07/31/22 07/31/22 18:59 06:59 18:59 Intake Total 1200 Output Total 160 375 240 Balance 1040 -375 -240 Intake: IV 1200 Dextrose 5%-0.45% NaCl 1, 1200 000 ml @ 100 mls/hr IV . Q10H YOLANDA Rx#:[id number] Output: Urine 160 375 240 Other: Voiding Method Toilet Toilet Urinal Urinal - Exam GENERAL EXAM: Alert, pleasant 72-year-old male, on 2 L nasal cannula, comfortable in no apparent distress. The patient is currently on 2 L of oxygen by nasal cannula and his breathing is nonlabored HEAD: Normocephalic. EYES: Normal reaction of pupils, equal size. NOSE: Clear with pink turbinates. THROAT: No erythema or exudates. NECK: No masses, no JVD. CHEST: No chest wall deformity. LUNGS: Equal air entry with bilateral end expiratory wheeze, diminished. CVS: S1 and S2 normal with no audible murmur, regular rhythm. ABDOMEN: No hepatosplenomegaly, normal bowel sounds, no guarding or rigidity. The patient has direct tenderness diffuse made over the anterior abdominal wall. No rebound tenderness or guarding. Bowel sounds are hypoactive. SPINE: No scoliosis or deformity SKIN: No rashes CENTRAL NERVOUS SYSTEM: No focal deficits, tone is normal in all 4 extremities. EXTREMITIES: There is no peripheral edema. No clubbing, no cyanosis. Peripheral pulses are intact. - Labs CBC & Chem 7: 07/31/22 07:09 07/31/22 07:09 Labs: Abnormal Lab Results - Last 24 Hours (Table) 07/30/22 07/30/22 07/30/22 Range/Units 07:07 07:07 12:02 WBC 14.21 H (4.50-10.00) X 10*3/uL RBC 3.78 L (4.40-5.60) X 10*6/uL Hgb 11.1 L (13.0-17.0) g/dL Hct 35.7 L (39.6-50.0) % MCHC 31.1 L (32.0-37.0) g/dL Immature Gran # 0.08 H (0.00-0.04) X 10*3/uL Neutrophils # 12.94 H (1.80-7.70) X 10*3/uL Lymphocytes # 0.64 L (0.90-5.00) X 10*3/uL Eosinophils # 0 L (0.04-0.35) X 10*3/uL Anion Gap 9.60 L (10.00-18.00) mmol/L Est GFR (CKD-EPI)NonAf 54.0 L (60.0-200.0) POC Glucose (mg/dL) 127 H (70-110) mg/dL Calcium 8.3 L (8.7-10.3) mg/dL Total Protein 4.8 L (6.2-8.2) g/dL Albumin 3.2 L (3.8-4.9) g/dL 07/30/22 07/30/22 07/31/22 Range/Units 17:52 23:51 05:39 WBC (4.50-10.00) X 10*3/uL RBC (4.40-5.60) X 10*6/uL Hgb (13.0-17.0) g/dL Hct (39.6-50.0) % MCHC (32.0-37.0) g/dL Immature Gran # (0.00-0.04) X 10*3/uL Neutrophils # (1.80-7.70) X 10*3/uL Lymphocytes # (0.90-5.00) X 10*3/uL Eosinophils # (0.04-0.35) X 10*3/uL Anion Gap (10.00-18.00) mmol/L Est GFR (CKD-EPI)NonAf (60.0-200.0) POC Glucose (mg/dL) 153 H 185 H 187 H (70-110) mg/dL Calcium (8.7-10.3) mg/dL Total Protein (6.2-8.2) g/dL Albumin (3.8-4.9) g/dL Assessment and Plan Plan: Acute perforated diverticulitis, with secondary abdominal pain. The patient has developed acute abdominal pain due to complicated/perforated sigmoid diverticulitis with free air intraperitoneally. No evidence of abscess for mation at this point in time. The patient is currently on IV antibiotics. We'll try to manage this conservatively with bowel rest and antibiotics. Surgery is also on the case. Clinically slightly improved compared to yesterday Abdominal pain secondary to above, improving Advanced COPD with an FEV1 of 26% of predicted, the patient is chronically oxygen and steroid dependent taking prednisone 10 mg by mouth daily. Acute leukocytosis secondary to above, improving History of diverticulosis Recent hospitalization for an acute COPD exacerbation back in June 2022, treated and the patient has recovered Ex-smoker and the patient quit smoking 2 years ago Prostate cancer Acid reflux Chronic hypoxic respiratory failure maternal O2 at 2 L nasal cannula Plan Keep the patient nothing by mouth Abdominal tenderness improving White cell count improving Continue IV antibiotics Abdomen is less tender compared to yesterday GEN surgeries on the case Lactic acid level is not elevated Continue IV Zosyn Continue conservative management with IV antibiotics Overall pulmonary status remains stable This will be a high-risk surgical case if surgery is contemplated specially the patient has chronic COPD and the patient has been maintained on steroids on a chronic basis. Fortunately, his COPD is currently stable. He has advanced COPD with an FEV1 of 26% of predicted. Should be involved in his care should there be any surgical interventions in the future. For now, he'll be admitted to the hospital, manage conservatively, kept nothing by mouth, will be given IV fluids and antibiotics. We'll hold steroids for now and give the patient IV hydrocortisone. Will given bronchodilators. We'll give him Lovenox for DVT prophylaxis. Morphine or Dilaudid for pain control. Will follow.
[2022-07-31 12:11] LABS: Glucose,Whole Blood 163 mg/dL (70-110)
--- NOTE | 2022-07-31 12:38 | P.PN ---
Progress Note - Text Progress Note Date: 07/31/22 Patient is improving. He states he has less pain. On exam vital signs are stable. Abdomen is soft. There is mild left lower quadrant pain. There is no rebound or guarding. History of perforated diverticula is. Patient to receive IV antibiotics and bowel rest. Patient external hemorrhoids for any surgical intervention due to his COPD.
--- NOTE | 2022-07-31 17:46 | P.PN ---
Subjective Progress Note Date: 07/31/22 Hospital course: Patient is a very pleasant 72-year-old male with a past medical history of COPD home oxygen dependent on 3 L at all times, diverticulosis and GERD. He presented to the emergency department with a chief complaint of abdominal pain. Patient underwent full evaluation in the ED. Labs completed and reviewed. CBC showing severe leukocytosis with WBC count of 18.7 with left shift with neutrophils of 17.1. BMP revealing mild prerenal azotemia with BUN of 21. Glucose was 132 and lactic acid was 1.3. Liver profile unremarkable. Troponin less than 0.012. Urinalysis was negative for infection. Covid PCR was negative. EKG was completed showing normal sinus rhythm and 99 bpm with no noted T-wave or ST abnormalities showing no signs of acute ischemia on personal review and interpretation. Chest x-ray completed and radiology report reviewed showing COPD changes but negative for acute cardiopulmonary process. CT abdomen and pelvis completed and radiology report reviewed, exam positive for acute sigmoid diverticulitis complicated by pe rforation and pockets of free intraperitoneal air measuring up to 5.5 cm accompanied by trace lower abdominal ascites, secondary small bowel ileus, small to moderate sized hiatal hernia, mild circumferential distal esophageal wall thickening, and prostamegaly with prostate measurement of 5.2 cm wide. Patient was admitted under Gen. surgery team and we were consulted for medical management throughout hospitalization. Physical exam: Patient seen and fully evaluated at bedside this morning. Patient reports continued improvement in pain and reports only mild pain/discomfort to right lower quadrant and only upon palpation.. Patient denies any further episodes of nausea and denies any other complaints at this time. Vital signs reviewed and stable. General: Nontoxic, no distress and appears stated age. Derm: Skin warm and dry, normal coloration for ethnicity. Head: Atraumatic, normocephalic and symmetric. Eyes: EOMs intact, no lid lag, and anicteric sclera Mouth: no lip lesions, mucus membranes moist Cardiovascular: regular rate and rhythm with normal S1S2, no murmur, positive posterior tibial pulses bilaterally, and cap refill < 2 seconds. Lungs: Respirations even, regular, and unlabored on 3 L O2 via nasal cannula Lungs tight and slightly diminished with soft expiratory wheezes. no rhonchi, no rales, no crackles, and no accessory muscle usage. Abdominal: soft, tenderness to palpation right lower quadrant, no guarding, no appreciable organomegaly Ext: ROM intact. No gross muscle atrophy, no edema, no contractures Neuro: Speech clear, face symmetrical and CN II-XII grossly intact with no noted focal neuro deficits Psych: Alert and oriented to person, place, time, and situation. Appropriate and pleasant affect. Assessment and Plan of Care: Acute perforated diverticulitis Abdominal pain secondary to above Leukocytosis secondary to above -Labs completed and reviewed. CBC showing resolution of previous leukocytosis with WBC count decreasing down to 8.2. Normocytic normochromic anemia with hemoglobin of 11.5. BMP and liver profile were unremarkable. -Blood cultures showing no growth to date, we will follow up on final culture and sensitivity reports. -Patient remains nothing by mouth, therefore we will continue with IV fluid hydration with D5.45 at 100 mL's per hour. -Continue glycemic protocol with planned care glucose checks every 6 hours while patient remains nothing by mouth. -Recommend continuing with Zosyn 3.375 g every 8 hours, as patient appears to be clinically improving. -Order placed for repeat CBC and CMP tomorrow morning. We will follow-up on these results. Advanced COPD Chronic hypoxemic respiratory failure -Pulmonary following -Chest x-ray completed 07/29/22 and radiology report reviewed showing COPD changes but negative for acute cardiopulmonary process. -Oxygenation to be administered and titrated as needed to maintain SPO2 equal to or greater than 92% -Telemetry monitoring. -Monitor Pulse-oximetry -Duonebs scheduled for times daily as well as as needed as needed for SOB and/or wheezing -Incentive Spirometry DVT prophylaxis currently with Lovenox Thank you for allowing us to participate in the care of this pleasant patient. Do not hesitate to contact us with questions. Someone can be reached from the [facility]– [place]Note 2] hospitalist group all hours of the day at [phone] or via [employer]. Patient was seen independently by Nurse Practitioner. This document was prepared using [employer] dictation software. Please allow for errors in business continuity manager while rare they do occur. This patient was seen independently by Shola Winters NP, I agree with documentation as above with the following additions: None. Objective - Vital Signs Vital signs: Vital Signs Temp 98.1 F 07/31/22 07:33 Pulse 100 07/31/22 08:46 Resp 18 07/31/22 08:46 BP 122/73 07/31/22 07:33 Pulse Ox 99 05/14/23 08:36 FiO2 Intake & Output 07/30/22 07/31/22 07/31/22 18:59 06:59 18:59 Intake Total 1200 Output Total 160 375 240 Balance 1040 -375 -240 Intake: IV 1200 Dextrose 5%-0.45% NaCl 1, 1200 000 ml @ 100 mls/hr IV . Q10H [facility] Rx#:[id number] Output: Urine 160 375 240 Other: Voiding Method Toilet Toilet Urinal Urinal - Labs CBC & Chem 7: 08/04/22 05:50 08/04/22 05:50 Labs: Abnormal Lab Results - Last 24 Hours (Table) 07/30/22 07/30/22 07/30/22 Range/Units 07:07 07:07 12:02 WBC 14.21 H (4.50-10.00) X 10*3/uL RBC 3.78 L (4.40-5.60) X 10*6/uL Hgb 11.1 L (13.0-17.0) g/dL Hct 35.7 L (39.6-50.0) % MCHC 31.1 L (32.0-37.0) g/dL Immature Gran # 0.08 H (0.00-0.04) X 10*3/uL Neutrophils # 12.94 H (1.80-7.70) X 10*3/uL Lymphocytes # 0.64 L (0.90-5.00) X 10*3/uL Eosinophils # 0 L (0.04-0.35) X 10*3/uL Anion Gap 9.60 L (10.00-18.00) mmol/L Est GFR (CKD-EPI)NonAf 54.0 L (60.0-200.0) POC Glucose (mg/dL) 127 H (70-110) mg/dL Calcium 8.3 L (8.7-10.3) mg/dL Total Protein 4.8 L (6.2-8.2) g/dL Albumin 3.2 L (3.8-4.9) g/dL 07/30/22 07/30/22 07/31/22 Range/Units 17:52 23:51 05:39 WBC (4.50-10.00) X 10*3/uL RBC (4.40-5.60) X 10*6/uL Hgb (13.0-17.0) g/dL Hct (39.6-50.0) % MCHC (32.0-37.0) g/dL Immature Gran # (0.00-0.04) X 10*3/uL Neutrophils # (1.80-7.70) X 10*3/uL Lymphocytes # (0.90-5.00) X 10*3/uL Eosinophils # (0.04-0.35) X 10*3/uL Anion Gap (10.00-18.00) mmol/L Est GFR (CKD-EPI)NonAf (60.0-200.0) POC Glucose (mg/dL) 153 H 185 H 187 H (70-110) mg/dL Calcium (8.7-10.3) mg/dL Total Protein (6.2-8.2) g/dL Albumin (3.8-4.9) g/dL
[2022-07-31 18:17] LABS: Glucose,Whole Blood 148 mg/dL (70-110)
[2022-07-31 23:44] LABS: Glucose,Whole Blood 175 mg/dL (70-110)
[2022-08-01] MEDS: PIPERACILLIN-TAZOBACTAM 3.375 GM in SODIUM CHLORIDE 0.9% 100 ML IVPB SCH ×3 (04:26→19:29)
[2022-08-01 05:45] LABS: Glucose,Whole Blood 162 mg/dL (70-110)
[2022-08-01] MEDS: DEXTROSE 5%-0.45% NACL 1,000 ML IV SCH ×2 (06:55→16:31)
[2022-08-01] MEDS: ENOXAPARIN 40 MG/0.4 ML SYRINGE SQ SCH (08:17)
[2022-08-01] MEDS: HYDROCORTISONE SUCCINATE 100 MG/2 ML VIAL IV SCH ×2 (08:17→16:31)
[2022-08-01] MEDS: PANTOPRAZOLE 40 MG/10 ML VIAL IV SCH (08:17)
[2022-08-01] MEDS: IPRATROPIUM-ALBUTEROL 3 ML NEB INHALATION SCH ×4 (08:27→19:14)
[2022-08-01 09:43] LABS: HCT 33.3 % (39.6-50.0); HGB 10.5 g/dL (13.0-17.0); MCH 29.5 pg (27.0-32.0); MCHC 31.5 g/dL (32.0-37.0); MCV 93.5 fL (80.0-97.0); Mean Platelet Volume 9.7 fL (9.5-12.2); NRBC Per 100 WBC 0 /100 WBCS (0.0-0.0); Platelet Count 225 X 10*3/uL (140-440); RBC 3.56 X 10*6/uL (4.40-5.60); RDW 13.7 % (11.5-14.5)
[2022-08-01 09:48] LABS: Magnesium 2.3 mg/dL (1.5-2.4)
[2022-08-01 09:50] LABS: African American GFR (CKD) 86.8 (60.0-200.0); Albumin 2.9 g/dL (3.8-4.9); Albumin/Globulin Ratio 1.81 (1.60-3.17); Anion Gap 8.2 mmol/L (10.00-18.00); BUN/Creat Ratio 11.3 Ratio (12.00-20.00); Blood Urea Nitrogen 11.3 mg/dL (9.0-27.0); Calcium 8.4 mg/dL (8.7-10.3); Carbon Dioxide 25.8 mmol/L (20.0-27.5); Globulin 1.6 g/dL (1.6-3.3); Non-African American GFR(CKD) 74.9 (60.0-200.0); Potassium 3.9 mmol/L (3.5-5.5); Total Bilirubin 0.3 mg/dL (0.30-1.20); Total Protein 4.5 g/dL (6.2-8.2)
--- NOTE | 2022-08-01 10:44 | P.PN ---
Subjective Progress Note Date: 08/01/22 Hospital course: Patient is a very pleasant 72-year-old male with a past medical history of COPD home oxygen dependent on 3 L at all times, diverticulosis and GERD. He presented to the emergency department with a chief complaint of abdominal pain. Patient underwent full evaluation in the ED. Labs completed and reviewed. CBC showing severe leukocytosis with WBC count of 18.7 with left shift with neutrophils of 17.1. BMP revealing mild prerenal azotemia with BUN of 21. Glucose was 132 and lactic acid was 1.3. Liver profile unremarkable. Troponin less than 0.012. Urinalysis was negative for infection. Covid PCR was negative. EKG was completed showing normal sinus rhythm and 99 bpm with no noted T-wave or ST abnormalities showing no signs of acute ischemia on personal review and interpretation. Chest x-ray completed and radiology report reviewed showing COPD changes but negative for acute cardiopulmonary process. CT abdomen and pelvis completed and radiology report reviewed, exam positive for acute sigmoid diverticulitis complicated by pe rforation and pockets of free intraperitoneal air measuring up to 5.5 cm accompanied by trace lower abdominal ascites, secondary small bowel ileus, small to moderate sized hiatal hernia, mild circumferential distal esophageal wall thickening, and prostamegaly with prostate measurement of 5.2 cm wide. Patient was admitted under Gen. surgery team and we were consulted for medical management throughout hospitalization. Physical exam: Patient seen and fully evaluated at bedside this morning. Patient reports continued right lower quadrant abdominal pain. He continues to deny any episodes of nausea, vomiting, or experiencing any flatus or bowel movements. Patient has had a documented 1240 mL of urinary output over the past 24 hours. He is also reporting that he is experiencing some mild increase in his shortness of breath especially with exertion. Order placed for repeat chest x-ray, pro- BMP, troponin, and EKG. Vital signs reviewed and stable. General: Nontoxic, no distress and appears stated age. Derm: Skin warm and dry, normal coloration for ethnicity. Head: Atraumatic, normocephalic and symmetric. Eyes: EOMs intact, no lid lag, and anicteric sclera Mouth: no lip lesions, mucus membranes moist Cardiovascular: regular rate and rhythm with normal S1S2, no murmur, positive posterior tibial pulses bilaterally, and cap refill < 2 seconds. Lungs: Respirations even, regular, and unlabored on 3 L O2 via nasal cannula Lungs tight and slightly diminished with soft expiratory wheezes. no rhonchi, no rales, no crackles, and no accessory muscle usage. Abdominal: soft, tenderness to palpation right lower quadrant, no guarding, no appreciable organomegaly Ext: ROM intact. No gross muscle atrophy, no edema, no contractures Neuro: Speech clear, face symmetrical and CN II-XII grossly intact with no noted focal neuro deficits Psych: Alert and oriented to person, place, time, and situation. Appropriate and pleasant affect. Assessment and Plan of Care: Acute perforated diverticulitis Abdominal pain secondary to above Leukocytosis secondary to above -Labs completed and reviewed. CBC showing normocytic normochromic anemia with hemoglobin of 10.5. WBC normal at 8.10. BMP remains unremarkable. -Blood cultures showing no growth to date, we will follow up on final culture and sensitivity reports. -Patient remains nothing by mouth, therefore we will continue with IV fluid hydration with D5.45 at 100 mL's per hour. -Continue glycemic protocol with planned care glucose checks every 6 hours while patient remains nothing by mouth. -Recommend continuing with Zosyn 3.375 g every 8 hours, as patient appears to be clinically improving. -Order placed for repeat CBC and CMP tomorrow morning. We will follow-up on these results. Advanced COPD Chronic hypoxemic respiratory failure -Pulmonary following -Repeat chest x-ray ordered for reports of worsening shortness of breath. Radiology report reviewed stating diffuse severe emphysematous changes with coarsened interstitium stable from prior x-ray completed 07/29/22 believed to be basis of chronic interstitial lung disease. -Oxygenation to be administered and titrated as needed to maintain SPO2 equal to or greater than 92% -Telemetry monitoring. -Monitor Pulse-oximetry -Duonebs scheduled for times daily as well as as needed as needed for SOB and/or wheezing -Incentive Spirometry Exertional dyspnea -Patient reporting that he is experiencing some mild increase in his shortness of breath especially with exertion. -Order placed for repeat chest x-ray, pro-BMP, troponin, and EKG. DVT prophylaxis currently with Lovenox Thank you for allowing us to participate in the care of this pleasant patient. Do not hesitate to contact us with questions. Someone can be reached from the [facility] hospitalist group all hours of the day at [phone] or via perfect serve. Patient was seen independently by Nurse Practitioner. This document was prepared using [email or web address] dictation software. Please allow for errors in molding technician while rare they do occur. This patient was seen independently by Shola Winters NP, I agree with documentation as above with the following additions: None. Objective - Vital Signs Vital signs: Vital Signs Temp 98.3 F 08/01/22 07:05 Pulse 82 08/01/22 08:43 Resp 19 08/01/22 07:05 BP 126/73 08/01/22 07:05 Pulse Ox 94 L 08/01/22 08:28 FiO2 Intake & Output 07/31/22 08/01/22 08/01/22 18:59 06:59 18:59 Output Total 1240 Balance -1240 Output: Urine 1240 Other: Voiding Method Toilet Toilet Toilet Urinal Urinal Urinal - Labs CBC & Chem 7: 08/04/22 05:50 08/04/22 05:50 Labs: Abnormal Lab Results - Last 24 Hours (Table) 07/31/22 07/31/22 07/31/22 Range/Units 12:10 18:16 23:42 RBC (4.40-5.60) X 10*6/uL Hgb (13.0-17.0) g/dL Hct (39.6-50.0) % MCHC (32.0-37.0) g/dL Anion Gap (10.00-18.00) mmol/L BUN/Creatinine Ratio (12.00-20.00) Ratio Glucose (70-110) mg/dL POC Glucose (mg/dL) 163 H 148 H 175 H (70-110) mg/dL Calcium (8.7-10.3) mg/dL AST (14-35) U/L Alkaline Phosphatase (41-126) U/L Total Protein (6.2-8.2) g/dL Albumin (3.8-4.9) g/dL 08/01/22 08/01/22 08/01/22 Range/Units 04:59 04:59 05:43 RBC 3.56 L (4.40-5.60) X 10*6/uL Hgb 10.5 L (13.0-17.0) g/dL Hct 33.3 L (39.6-50.0) % MCHC 31.5 L (32.0-37.0) g/dL Anion Gap 8.20 L (10.00-18.00) mmol/L BUN/Creatinine Ratio 11.30 L (12.00-20.00) Ratio Glucose 165 H (70-110) mg/dL POC Glucose (mg/dL) 162 H (70-110) mg/dL Calcium 8.4 L (8.7-10.3) mg/dL AST 12 L (14-35) U/L Alkaline Phosphatase 39 L (41-126) U/L Total Protein 4.5 L (6.2-8.2) g/dL Albumin 2.9 L (3.8-4.9) g/dL Microbiology - Last 24 Hours (Table) 07/29/22 10:06 Blood Culture - Preliminary Blood 07/29/22 10:06 Blood Culture - Preliminary Blood
--- NOTE | 2022-08-01 11:52 | XR ---
EXAMINATION TYPE: XR chest 1V portable DATE OF EXAM: 08/01/2022 COMPARISON: 07/29/2022 HISTORY: Shortness of breath TECHNIQUE: Single frontal view of the chest is obtained. FINDINGS: Coarsened lung markings are seen and there is diffuse emphysematous changes. Atherosclerot ic change of the aorta. Subsegmental changes left lung base. No pneumothorax. Chronic widening of the right knee joint may be on the basis of acro ostial lysis. IMPRESSION: 1. Diffuse severe emphysematous changes with coarsened interstitium stable from prior likely on the b asis of additional chronic interstitial lung disease.
[2022-08-01 12:02] LABS: Glucose,Whole Blood 131 mg/dL (70-110)
--- NOTE | 2022-08-01 12:48 | P.PN ---
Subjective Progress Note Date: 08/01/22 I was asked to evaluate this patient because of his advanced COPD and ongoing abdominal complications. The patient was seen in the emergency department. The patient is known to have diverticulosis he came in for an acute abdominal pain this morning. CAT scan of the abdomen was done and the patient was found to have acute sigmoid diverticulitis. This was a comp acute diverticulitis as perforation suspected and the patient had pockets of free intraperitoneal air measuring up to 5.5 cm in size. There is also trace lower abdominal ascites. No evidence of any abscess formation. Is also small bowel ileus. There is moderate size hiatal hernia also. The patient has a large prostate. Is known to have prostate cancer. The patient is also known to have advanced COPD. The patient is auction dependent. The patient is steroid dependent and is taking 10 mg of prednisone on a daily basis on outpatient basis. He has been followed up through our office. He has exertional dyspnea which is chronic in his significant limitation in exercise capacity because of his advanced COPD. No chest pain. No worsening shortness of breath. No swelling lower extremities. No previous history of DVT or pulmonary embolism. No nausea or emesis. No aspiration. GI surgeries on the case. Currently is on antibiotics. No plans for any surgery at this point in time. Blood work shows a WBC count of 18, he moglobin 13, normal cognition profile, BUN is 20 over the creatinine of 0.9. LFTs are normal. Lactic acid level is at 1.3. On today's evaluation of 07/30/2022, the patient's abdomen is less tender. The patient remains nothing by mouth. No worsening shortness of breath. The patient is on IV Zosyn. The patient is going to be treated conservatively. White cell count is at 14 with a hemoglobin of 11.1 and a platelet count of 245 noted the white cycles lower compared to yesterday. BUN is at 21 with a creatinine of 1.3. Sodium is at 143. Awake and alert and communicating. He remains on oxygen at 2 L/m nasal cannula. On 07/31/2022, the patient is doing well. No specific complaints. Abdominal pain is subsiding gradually. His COPD remains on IV Zosyn. No plans for any surgical intervention this point in time. The patient is known to have advanced COPD and the patient also has oxygen steroid dependent COPD and the patient is currently on hydrocortisone. IV fluids are in the form of D5 half-normal saline at rate of 100 mL an hour. The white cell count is down to 8.2 with hemoglobin 11.5 and a platelet count of 15. BUN is at 60 with a creatinine of 1 and his sodium level is at 137. The patient is seen today 08/01/2022 in follow-up on the regular medical floor. He is currently sitting up in bed. Awake and alert in no acute distress. Maintaining O2 saturations in the 90s on 2 L/m per nasal cannula. Currently on D5.45 normal saline at 100 ML's per hour. He is continued on Zosyn. His abdominal discomfort is gradually improving. Follow-up chest x-ray continues to show diffuse severe emphysematous changes with coarsened interstitium suspicious for chronic interstitial lung disease. Blood culture reveals no growth. White count 8.1. Hemoglobin 10.5. Platelets 225. Sodium 142. Potassium 3.9. Bicarb 26. BUN 11. Creatinine 1.0. Glucose 165. ProBNP 1500. Troponin negative 1. AST 12. ALT 13. Alk phos 39. Continued on DuoNeb inhalations. Lovenox for DVT prophylaxis. Remains on Solu-Cortef. Objective - Vital Signs Vital signs: Vital Signs Temp 98.3 F 08/01/22 07:05 Pulse 77 08/01/22 11:42 Resp 19 08/01/22 07:05 BP 126/73 08/01/22 07:05 Pulse Ox 94 L 08/01/22 08:28 FiO2 Intake & Output 07/31/22 08/01/22 08/01/22 18:59 06:59 18:59 Output Total 1240 Balance -1240 Output: Urine 1240 Other: Voiding Method Toilet Toilet Toilet Urinal Urinal Urinal - Exam GENERAL EXAM: Alert, pleasant 72-year-old male, on 2 L nasal cannula, comfortable in no apparent distress. HEAD: Normocephalic. EYES: Normal reaction of pupils, equal size. NOSE: Clear with pink turbinates. THROAT: No erythema or exudates. NECK: No masses, no JVD. CHEST: No chest wall deformity. LUNGS: Equal air entry with bilateral end expiratory wheeze, diminished. CVS: S1 and S2 normal with no audible murmur, regular rhythm. ABDOMEN: No hepatosplenomegaly, normal bowel sounds, no guarding or rigidity. The patient has direct tenderness diffuse made over the anterior abdominal wall. SPINE: No scoliosis or deformity SKIN: No rashes CENTRAL NERVOUS SYSTEM: No focal deficits, tone is normal in all 4 extremities. EXTREMITIES: There is no peripheral edema. No clubbing, no cyanosis. Peripheral pulses are intact. - Labs CBC & Chem 7: 08/01/22 04:59 08/01/22 04:59 Labs: Abnormal Lab Results - Last 24 Hours (Table) 07/31/22 07/31/22 08/01/22 Range/Units 18:16 23:42 04:59 RBC 3.56 L (4.40-5.60) X 10*6/uL Hgb 10.5 L (13.0-17.0) g/dL Hct 33.3 L (39.6-50.0) % MCHC 31.5 L (32.0-37.0) g/dL Anion Gap (10.00-18.00) mmol/L BUN/Creatinine Ratio (12.00-20.00) Ratio Glucose (70-110) mg/dL POC Glucose (mg/dL) 148 H 175 H (70-110) mg/dL Calcium (8.7-10.3) mg/dL AST (14-35) U/L Alkaline Phosphatase (41-126) U/L Total Protein (6.2-8.2) g/dL Albumin (3.8-4.9) g/dL 08/01/22 08/01/22 08/01/22 Range/Units 04:59 05:43 12:01 RBC (4.40-5.60) X 10*6/uL Hgb (13.0-17.0) g/dL Hct (39.6-50.0) % MCHC (32.0-37.0) g/dL Anion Gap 8.20 L (10.00-18.00) mmol/L BUN/Creatinine Ratio 11.30 L (12.00-20.00) Ratio Glucose 165 H (70-110) mg/dL POC Glucose (mg/dL) 162 H 131 H (70-110) mg/dL Calcium 8.4 L (8.7-10.3) mg/dL AST 12 L (14-35) U/L Alkaline Phosphatase 39 L (41-126) U/L Total Protein 4.5 L (6.2-8.2) g/dL Albumin 2.9 L (3.8-4.9) g/dL Microbiology - Last 24 Hours (Table) 07/29/22 10:06 Blood Culture - Preliminary Blood 07/29/22 10:06 Blood Culture - Preliminary Blood Assessment and Plan Assessment: Acute perforated diverticulitis, with secondary abdominal pain. The patient has developed acute abdominal pain due to complicated/perforated sigmoid diverticulitis with free air intraperitoneally. No evidence of abscess formation at this point in time. The patient is currently on IV antibiotics. We'll try to manage this conservatively with bowel rest and antibiotics. Surgery is also on the case. Clinically slightly improved. Abdominal pain secondary to above, improving Acute leukocytosis secondary to above, improved History of diverticulosis Recent hospitalization for an acute COPD exacerbation back in June 2022, treated and the patient has recovered Advanced COPD with an FEV1 of 26% of predicted, the patient is chronically oxygen and steroid dependent taking prednisone 10 mg by mouth daily. Ex-smoker and the patient quit smoking 2 years ago Chronic hypoxic respiratory failure maternal O2 at 2 L nasal cannula Prostate cancer Acid reflux Plan: The patient was seen and evaluated Chest x-ray, labs and medications reviewed Abdominal discomfort improving daily Remains on Zosyn Remains nothing by mouth Plan is to treat medically for now Continue bronchodilators Continue Solu-Cortef Lovenox for DVT prophylaxis We will continue to follow I have personally seen and examined the patient, performed the documentation and the assessment and plan as written. Number of minutes spent on the visit: 10.
--- NOTE | 2022-08-01 14:34 | P.PN ---
Subjective Progress Note Date: 08/01/22 CHIEF COMPLAINT: Perforated diverticulitis HISTORY OF PRESENT ILLNESS: Patient reports his abdominal pains improving.. Rates his pain about a 1 out of 10. He is requiring pain medication. He denies any nausea or vomiting. Denies any bowel movement. Afebrile. WBC remains normal at 8.10 hemoglobin 10.5-6-25 sodium was 142 creatinine 1.0 PHYSICAL EXAM: VITAL SIGNS: Reviewed. GENERAL: Well-developed in no acute distress. HEENT: No sclera icterus. Extraocular movements grossly intact. Moist buccal mucosa. Head is atraumatic, normocephalic. ABDOMEN: Soft. Nondistended. Tenderness to palpation of the right lower quadrant NEUROLOGIC: Alert and oriented. Cranial nerves II through XII grossly intact. ASSESSMENT: 1. Acute sigmoid diverticulitis with perforation 2. History of COPD PLAN: -Keep patient nothing by mouth -Continue IV antibiotics -Continue IV fluids -Continue supportive care Physician Raise Driller note has been reviewed by physician. Signing provider agrees with the documented findings, assessment, and plan of care. Objective - Vital Signs Vital signs: Vital Signs Temp 98.1 F 08/01/22 13:50 Pulse 63 08/01/22 13:50 Resp 19 08/01/22 13:50 BP 100/43 08/01/22 13:50 Pulse Ox 95 08/01/22 13:50 FiO2 Intake & Output 07/31/22 08/01/22 08/01/22 18:59 06:59 18:59 Output Total 1240 Balance -1240 Output: Urine 1240 Other: Voiding Method Toilet Toilet Toilet Urinal Urinal Urinal - Labs CBC & Chem 7: 08/01/22 04:59 08/01/22 04:59 Labs: Abnormal Lab Results - Last 24 Hours (Table) 07/31/22 07/31/22 08/01/22 Range/Units 18:16 23:42 04:59 RBC 3.56 L (4.40-5.60) X 10*6/uL Hgb 10.5 L (13.0-17.0) g/dL Hct 33.3 L (39.6-50.0) % MCHC 31.5 L (32.0-37.0) g/dL Anion Gap (10.00-18.00) mmol/L BUN/Creatinine Ratio (12.00-20.00) Ratio Glucose (70-110) mg/dL POC Glucose (mg/dL) 148 H 175 H (70-110) mg/dL Calcium (8.7-10.3) mg/dL AST (14-35) U/L Alkaline Phosphatase (41-126) U/L Total Protein (6.2-8.2) g/dL Albumin (3.8-4.9) g/dL 08/01/22 08/01/22 08/01/22 Range/Units 04:59 05:43 12:01 RBC (4.40-5.60) X 10*6/uL Hgb (13.0-17.0) g/dL Hct (39.6-50.0) % MCHC (32.0-37.0) g/dL Anion Gap 8.20 L (10.00-18.00) mmol/L BUN/Creatinine Ratio 11.30 L (12.00-20.00) Ratio Glucose 165 H (70-110) mg/dL POC Glucose (mg/dL) 162 H 131 H (70-110) mg/dL Calcium 8.4 L (8.7-10.3) mg/dL AST 12 L (14-35) U/L Alkaline Phosphatase 39 L (41-126) U/L Total Protein 4.5 L (6.2-8.2) g/dL Albumin 2.9 L (3.8-4.9) g/dL Microbiology - Last 24 Hours (Table) 07/29/22 10:06 Blood Culture - Preliminary Blood 07/29/22 10:06 Blood Culture - Preliminary Blood
[2022-08-01 17:56] LABS: Glucose,Whole Blood 137 mg/dL (70-110)
[2022-08-01] MEDS: HYDROmorphone 1 MG/ML 1 ML SYRINGE IVP PRN (19:28)
[2022-08-02] MEDS: HYDROCORTISONE SUCCINATE 100 MG/2 ML VIAL IV SCH ×4 (00:48→23:42)
[2022-08-02] MEDS: DEXTROSE 5%-0.45% NACL 1,000 ML IV SCH ×3 (00:53→20:40)
[2022-08-02] MEDS: PIPERACILLIN-TAZOBACTAM 3.375 GM in SODIUM CHLORIDE 0.9% 100 ML IVPB SCH ×3 (03:06→20:08)
[2022-08-02 06:10] LABS: Glucose,Whole Blood 134 mg/dL (70-110)
[2022-08-02] MEDS: PANTOPRAZOLE 40 MG/10 ML VIAL IV SCH (08:09)
[2022-08-02] MEDS: ENOXAPARIN 40 MG/0.4 ML SYRINGE SQ SCH (08:09)
[2022-08-02] MEDS: HYDROmorphone 1 MG/ML 1 ML SYRINGE IVP PRN ×2 (08:18→22:38)
[2022-08-02] MEDS: IPRATROPIUM-ALBUTEROL 3 ML NEB INHALATION SCH ×4 (08:45→21:30)
[2022-08-02 11:20] LABS: Glucose,Whole Blood 151 mg/dL (70-110)
--- NOTE | 2022-08-02 12:32 | P.PN ---
Subjective Progress Note Date: 08/02/22 I was asked to evaluate this patient because of his advanced COPD and ongoing abdominal complications. The patient was seen in the emergency department. The patient is known to have diverticulosis he came in for an acute abdominal pain this morning. CAT scan of the abdomen was done and the patient was found to have acute sigmoid diverticulitis. This was a comp acute diverticulitis as perforation suspected and the patient had pockets of free intraperitoneal air measuring up to 5.5 cm in size. There is also trace lower abdominal ascites. No evidence of any abscess formation. Is also small bowel ileus. There is moderate size hiatal hernia also. The patient has a large prostate. Is known to have prostate cancer. The patient is also known to have advanced COPD. The patient is auction dependent. The patient is steroid dependent and is taking 10 mg of prednisone on a daily basis on outpatient basis. He has been followed up through our office. He has exertional dyspnea which is chronic in his significant limitation in exercise capacity because of his advanced COPD. No chest pain. No worsening shortness of breath. No swelling lower extremities. No previous history of DVT or pulmonary embolism. No nausea or emesis. No aspiration. GI surgeries on the case. Currently is on antibiotics. No plans for any surgery at this point in time. Blood work shows a WBC count of 18, he moglobin 13, normal cognition profile, BUN is 20 over the creatinine of 0.9. LFTs are normal. Lactic acid level is at 1.3. On today's evaluation of 07/30/2022, the patient's abdomen is less tender. The patient remains nothing by mouth. No worsening shortness of breath. The patient is on IV Zosyn. The patient is going to be treated conservatively. White cell count is at 14 with a hemoglobin of 11.1 and a platelet count of 245 noted the white cycles lower compared to yesterday. BUN is at 21 with a creatinine of 1.3. Sodium is at 143. Awake and alert and communicating. He remains on oxygen at 2 L/m nasal cannula. On 07/31/2022, the patient is doing well. No specific complaints. Abdominal pain is subsiding gradually. His COPD remains on IV Zosyn. No plans for any surgical intervention this point in time. The patient is known to have advanced COPD and the patient also has oxygen steroid dependent COPD and the patient is currently on hydrocortisone. IV fluids are in the form of D5 half-normal saline at rate of 100 mL an hour. The white cell count is down to 8.2 with hemoglobin 11.5 and a platelet count of 15. BUN is at 60 with a creatinine of 1 and his sodium level is at 137. The patient is seen today 08/01/2022 in follow-up on the regular medical floor. He is currently sitting up in bed. Awake and alert in no acute distress. Maintaining O2 saturations in the 90s on 2 L/m per nasal cannula. Currently on D5.45 normal saline at 100 ML's per hour. He is continued on Zosyn. His abdominal discomfort is gradually improving. Follow-up chest x-ray continues to show diffuse severe emphysematous changes with coarsened interstitium suspicious for chronic interstitial lung disease. Blood culture reveals no growth. White count 8.1. Hemoglobin 10.5. Platelets 225. Sodium 142. Potassium 3.9. Bicarb 26. BUN 11. Creatinine 1.0. Glucose 165. ProBNP 1500. Troponin negative 1. AST 12. ALT 13. Alk phos 39. Continued on DuoNeb inhalations. Lovenox for DVT prophylaxis. Remains on Solu-Cortef. The patient is seen today 08/02/2022 in follow-up on the regular medical floor. He is awake and alert in no acute distress. Resting fairly comfortably in bed. Maintaining good O2 saturations in the 90s on 2 L/m per nasal cannula. He is receiving D5 and half-normal saline at 100 ML's per hour. Remains on antibiotics in the form of Zosyn. Lovenox for DVT prophylaxis. Continued on Solu-Cortef. His abdominal discomfort is waxing and waning. A little more tender today. He remains nothing by mouth. Blood cultures revealed no growth. Blood glucose 151. Objective - Vital Signs Vital signs: Vital Signs Temp 97.9 F 08/02/22 07:33 Pulse 84 08/02/22 12:01 Resp 18 08/02/22 07:33 BP 143/91 08/02/22 07:33 Pulse Ox 95 08/02/22 08:47 FiO2 Intake & Output 08/01/22 08/02/22 08/02/22 18:59 06:59 18:59 Intake Total 236 Output Total 800 Balance 236 -800 Intake: Oral 236 Output: Urine 800 Other: Voiding Method Toilet Urinal # Voids 2 - Exam GENERAL EXAM: Alert, 72-year-old male, on 2 L nasal cannula, fairly comfortable in no apparent distress. HEAD: Normocephalic. EYES: Normal reaction of pupils, equal size. NOSE: Clear with pink turbinates. THROAT: No erythema or exudates. NECK: No masses, no JVD. CHEST: No chest wall deformity. LUNGS: Equal air entry with bilateral end expiratory wheeze, diminished. CVS: S1 and S2 normal with no audible murmur, regular rhythm. ABDOMEN: No hepatosplenomegaly, normal bowel sounds, no guarding or rigidity. T he patient has direct tenderness over the anterior abdominal wall. SPINE: No scoliosis or deformity SKIN: No rashes CENTRAL NERVOUS SYSTEM: No focal deficits, tone is normal in all 4 extremities. EXTREMITIES: There is no peripheral edema. No clubbing, no cyanosis. Peripheral pulses are intact. - Labs CBC & Chem 7: 08/01/22 04:59 08/01/22 04:59 Labs: Abnormal Lab Results - Last 24 Hours (Table) 08/01/22 08/02/22 08/02/22 Range/Units 17:55 06:08 11:19 POC Glucose (mg/dL) 137 H 134 H 151 H (70-110) mg/dL Microbiology - Last 24 Hours (Table) 07/29/22 10:06 Blood Culture - Preliminary Blood 07/29/22 10:06 Blood Culture - Preliminary Blood Assessment and Plan Assessment: Acute perforated diverticulitis, with secondary abdominal pain. The patient has developed acute abdominal pain due to complicated/perforated sigmoid d iverticulitis with free air intraperitoneally. No evidence of abscess formation at this point in time. The patient is currently on Zosyn. Surgery is on the case. He remains nothing by mouth Abdominal pain secondary to above, waxing and waning Acute leukocytosis secondary to above, recovered History of diverticulosis Recent hospitalization for an acute COPD exacerbation back in June 2022, treated and the patient has recovered Advanced COPD with an FEV1 of 26% of predicted, the patient is chronically oxygen and steroid dependent taking prednisone 10 mg by mouth daily. Ex-smoker and the patient quit smoking 2 years ago Chronic hypoxic respiratory failure maternal O2 at 2 L nasal cannula Prostate cancer Acid reflux Plan: The patient was seen and evaluated Medications reviewed Abdominal discomfort waxing and waning Remains on Zosyn Remains nothing by mouth Continue bronchodilators Continue Solu-Cortef Lovenox for DVT prophylaxis We will continue to follow I have personally seen and examined the patient, performed the documentation and the assessment and plan as written. Number of minutes spent on the visit: 10.
--- NOTE | 2022-08-02 14:12 | P.PN ---
Subjective Progress Note Date: 08/02/22 Hospital course: Patient is a very pleasant 72-year-old male with a past medical history of COPD home oxygen dependent on 3 L at all times, diverticulosis and GERD. He presented to the emergency department with a chief complaint of abdominal pain. Patient underwent full evaluation in the ED. Labs completed and reviewed. CBC showing severe leukocytosis with WBC count of 18.7 with left shift with neutrophils of 17.1. BMP revealing mild prerenal azotemia with BUN of 21. Glucose was 132 and lactic acid was 1.3. Liver profile unremarkable. Troponin less than 0.012. Urinalysis was negative for infection. Covid PCR was negative. EKG was completed showing normal sinus rhythm and 99 bpm with no noted T-wave or ST abnormalities showing no signs of acute ischemia on personal review and interpretation. Chest x-ray completed and radiology report reviewed showing COPD changes but negative for acute cardiopulmonary process. CT abdomen and pelvis completed and radiology report reviewed, exam positive for acute sigmoid diverticulitis complicated by perforation and pockets of free intraperitoneal air measuring up to 5.5 cm accompanied by trace lower abdominal ascites, secondary small bowel ileus, small to moderate sized hiatal hernia, mild circumferential distal esophageal wall th ickening, and prostamegaly with prostate measurement of 5.2 cm wide. Patient was admitted under Gen. surgery team and we were consulted for medical management throughout hospitalization. Today patient states that his abdominal pain is worse. 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 labs are pending. Blood cultures and negative to date Acute perforated diverticulitis Abdomen secondary to above Leukocytosis secondary to above COPD Chronic hypoxemic respiratory failure on 2 L home O2 Plan As per general surgeon management Resume Zosyn 3.375 g every 8 hours Resume D5 half-normal saline. Blood glucose levels are acceptable Patient currently satting well on his home O2. Pain control Patient was chronically on prednisone 10 mg daily Pulmonology started the patient and stress dose steroids with hydrocortisone 50 mg every 8 hours DuoNeb standing and as needed Pulmonology on board Due to prophylaxis: Lovenox Anticipated discharge: Depending on clinical course Anticipated discharge place: Depending on clinical course Objective - Vital Signs Vital signs: Vital Signs Temp 97.9 F 08/02/22 07:33 Pulse 84 08/02/22 12:01 Resp 18 08/02/22 07:33 BP 143/91 08/02/22 07:33 Pulse Ox 95 08/02/22 08:47 FiO2 Intake & Output 08/01/22 08/02/22 08/02/22 18:59 06:59 18:59 Intake Total 236 Output Total 800 Balance 236 -800 Intake: Oral 236 Output: Urine 800 Other: Voiding Method Toilet Urinal # Voids 2 - Labs CBC & Chem 7: 08/01/22 04:59 08/01/22 04:59 Labs: Abnormal Lab Results - Last 24 Hours (Table) 08/01/22 08/02/22 08/02/22 Range/Units 17:55 06:08 11:19 POC Glucose (mg/dL) 137 H 134 H 151 H (70-110) mg/dL Microbiology - Last 24 Hours (Table) 07/29/22 10:06 Blood Culture - Preliminary Blood 07/29/22 10:06 Blood Culture - Preliminary Blood
[2022-08-02 14:18] LABS: African American GFR (CKD) 77.3 (60.0-200.0); Albumin 3.1 g/dL (3.8-4.9); Albumin/Globulin Ratio 1.82 (1.60-3.17); Anion Gap 10.9 mmol/L (10.00-18.00); BUN/Creat Ratio 11.09 Ratio (12.00-20.00); Blood Urea Nitrogen 12.2 mg/dL (9.0-27.0); Calcium 8.6 mg/dL (8.7-10.3); Carbon Dioxide 24.1 mmol/L (20.0-27.5); Globulin 1.7 g/dL (1.6-3.3); Magnesium 2.1 mg/dL (1.5-2.4); Non-African American GFR(CKD) 66.7 (60.0-200.0); Potassium 3.9 mmol/L (3.5-5.5); Total Bilirubin 0.5 mg/dL (0.30-1.20); Total Protein 4.8 g/dL (6.2-8.2)
[2022-08-02 14:24] LABS: HCT 35.6 % (39.6-50.0); HGB 11.1 g/dL (13.0-17.0); MCH 29.2 pg (27.0-32.0); MCHC 31.2 g/dL (32.0-37.0); MCV 93.7 fL (80.0-97.0); Mean Platelet Volume 9.7 fL (9.5-12.2); NRBC Per 100 WBC 0 /100 WBCS (0.0-0.0); Platelet Count 263 X 10*3/uL (140-440); RDW 13.9 % (11.5-14.5); WBC 12.94 X 10*3/uL (4.50-10.00)
[2022-08-02] MEDS: IOPAMIDOL CONTRAST (ORAL USE) VIAL PO PRN ×2 (14:35→15:36)
--- NOTE | 2022-08-02 15:39 | P.PN ---
Subjective Progress Note Date: 08/02/22 CHIEF COMPLAINT: Perforated diverticulitis HISTORY OF PRESENT ILLNESS: Patient had increase in abdominal pain after a clear liquid diet this morning. He rates his pain 6 out of 10. He required the IV Dilaudid again. He is having flatus. Denies any bowel movement. Denies any nausea vomiting. Afebrile. White count did increase from 8-12.94 Hgb 11.1 platelets 263 sodium is 143 potassium 3.9 creatinine 1.1 Patient seen and examined with Dr. meadows PHYSICAL EXAM: VITAL SIGNS: Reviewed. GENERAL: Well-developed in no acute distress. HEENT: No sclera icterus. Extraocular movements grossly intact. Moist buccal mucosa. Head is atraumatic, normocephalic. ABDOMEN: Soft. Nondistended. Tenderness to palpation of the left lower quadrant NEUROLOGIC: Alert and oriented. Cranial nerves II through XII grossly intact. ASSESSMENT: 1. Acute sigmoid diverticulitis with perforation 2. History of COPD PLAN: -Downgrade diet nothing by mouth due to increased abdominal pain -Computed tomography scan and pelvis with oral contrast ordered for further evaluation of increased abdominal pain -Continue IV antibiotics -Continue IV fluids -Continue supportive care -PICC line ordered for TPN for nutrition support -Repeat labs in a.m. Physician Head [employer] Custodian note has been reviewed by physician. Signing provider agrees with the documented findings, assessment, and plan of care. Objective - Vital Signs Vital signs: Vital Signs Temp 98.4 F 08/02/22 14:00 Pulse 76 08/02/22 14:00 Resp 18 08/02/22 14:00 BP 128/73 08/02/22 14:00 Pulse Ox 96 08/02/22 14:00 FiO2 Intake & Output 08/01/22 08/02/22 08/02/22 18:59 06:59 18:59 Intake Total 236 Output Total 800 Balance 236 -800 Intake: Oral 236 Output: Urine 800 Other: Voiding Method Toilet Urinal # Voids 2 - Labs CBC & Chem 7: 08/02/22 07:02 08/02/22 07:02 Labs: Abnormal Lab Results - Last 24 Hours (Table) 08/01/22 08/02/22 08/02/22 Range/Units 17:55 06:08 07:02 WBC 12.94 H (4.50-10.00) X 10*3/uL RBC 3.80 L (4.40-5.60) X 10*6/uL Hgb 11.1 L (13.0-17.0) g/dL Hct 35.6 L (39.6-50.0) % MCHC 31.2 L (32.0-37.0) g/dL BUN/Creatinine Ratio (12.00-20.00) Ratio Glucose (70-110) mg/dL POC Glucose (mg/dL) 137 H 134 H (70-110) mg/dL Calcium (8.7-10.3) mg/dL Total Protein (6.2-8.2) g/dL Albumin (3.8-4.9) g/dL 08/02/22 08/02/22 Range/Units 07:02 11:19 WBC (4.50-10.00) X 10*3/uL RBC (4.40-5.60) X 10*6/uL Hgb (13.0-17.0) g/dL Hct (39.6-50.0) % MCHC (32.0-37.0) g/dL BUN/Creatinine Ratio 11.09 L (12.00-20.00) Ratio Glucose 145 H (70-110) mg/dL POC Glucose (mg/dL) 151 H (70-110) mg/dL Calcium 8.6 L (8.7-10.3) mg/dL Total Protein 4.8 L (6.2-8.2) g/dL Albumin 3.1 L (3.8-4.9) g/dL Microbiology - Last 24 Hours (Table) 07/29/22 10:06 Blood Culture - Preliminary Blood 07/29/22 10:06 Blood Culture - Preliminary Blood
[2022-08-02 15:49] LABS: Prothrombin Time 10.1 sec (9.0-12.0)
--- NOTE | 2022-08-02 17:01 | CT ---
EXAMINATION TYPE: CT abdomen pelvis wo con DATE OF EXAM: 08/02/2022 HISTORY: LLQ pain CT DLP: 511.6 mGycm. Automated Exposure Control for Dose Reduction was Utilized. TECHNIQUE: CT scan of the abdomen and pelvis is performed with oral but without IV contrast. COMPARISON: CT abdomen and pelvis 4 days ago FINDINGS: Within the limitations of a non-contrast study, the following observations are made. LUNG BASES: Small to tiny left greater than right pleural effusions are new from prior. Emphysematous change in the lung bases is redemonstrated. LIVER/GB: No significant abnormality is appreciated. PANCREAS: No significant abnormality is seen. SPLEEN: Scattered calcifications throughout the spleen consistent with product of old granulomatous d isease are redemonstrated.. ADRENALS: No significant abnormality is seen. KIDNEYS: No significant abnormality is seen. BOWEL: Oral contrast does not reach level of distal ileal loops. No suspicious small or large bowel d ilatation. Scattered diverticula throughout the colon. Severe diverticulosis involving the sigmoid co cristofer. Mild fluid and fat stranding anterior pelvis is improved from prior study. There is however new free air located the diaphragm and free retroperitoneal air in the posterior lower abdomen just right of midline. GENITAL ORGANS: Mildly enlarged prostate consistent with BPH. LYMPH NODES: No greater than 1cm abdominal or pelvic lymph nodes are appreciated. OSSEOUS STRUCTURES: Moderate disc space narrowing at L2-L3, L4-L5, and L5-S1 levels. Levoconvex scoli osis centered at L1-L2 level. OTHER: New free air is present . Moderate calcified plaque of the aorta extends into branch vessels s mall fat-containing bilateral inguinal hernias redemonstrated. Mild to moderate diffuse soft tissue a nasarca is more prominent from prior study. IMPRESSION: New free air is present suggesting diverticular perforation near axial image 49. A Red level critical message alert has been initiated for Reynold Moyer MD via the [employer] Critical Results System on 08/02/2022 4:58 PM. This message alert has been sent to Reynold Moyer MD via the preferences provided by the clinician for the receipt of Radiology Critical Findings. Mess age ID [id number].
[2022-08-02 17:09] LABS: Glucose,Whole Blood 146 mg/dL (70-110)
--- NOTE | 2022-08-02 19:34 | P.PN ---
Progress Note - Text Progress Note Date: 08/02/22 Due to the patient's increased pain today and repeat CAT scan of the abdomen was performed. There is new free air suggestive of acute diverticular perforation. Given the patient's clinical findings of increased pain, increased white count and new free air on CAT scan the patient will undergo exploratory laparotomy sigmoid colectomy with end colostomy. The findings a CAT scan were discussed t with the patient and his
[2022-08-02] MEDS ORDERED: SUCCINYLCHOLINE CHLORIDE 200 MG/10 ML VIAL IV ONE (20:43)
[2022-08-02] MEDS ORDERED: fentaNYL (PF) 50 MCG/ML 2 ML AMP ONE (20:43)
[2022-08-02] MEDS ORDERED: MIDAZOLAM 2 MG/2 ML VIAL ONE (20:43)
[2022-08-02] MEDS ORDERED: ROCURONIUM 10 MG/ML (5 ML VIAL) IV ONE (20:43)
[2022-08-02] MEDS ORDERED: LIDOCAINE 2% INJ 20 MG/ML (2 ML VIAL) ONE (20:43)
[2022-08-02] MEDS ORDERED: PROPOFOL 10 MG/ML 20 ML VIAL IV ONE (20:43)
[2022-08-02] MEDS ORDERED: HYDROmorphone (PF) 1 MG/ML ONE (20:43)
[2022-08-02] MEDS ORDERED: LACTATED RINGERS 1,000 ML IV ONE (21:15)
[2022-08-02] MEDS ORDERED: HYDROmorphone 1 MG/ML 1 ML SYRINGE IVP PRN (21:46)
--- NOTE | 2022-08-02 21:46 | P.OP ---
Date of Procedure: 08/02/22 Preoperative Diagnosis: Perforated diverticulitis Postoperative Diagnosis: Perforated diverticulitis with abscess Procedure(s) Performed: Sigmoid colectomy with end colostomy Anesthesia: ROBIN Surgeon: Reynold Moyer Estimated Blood Loss (ml): 50 Pathology: other (Sigmoid colon, abscess culture) Condition: stable Disposition: PACU Operative Findings: Sigmoid diverticulitis with perforation and abscess Description of Procedure: The patient's placed on the operative table in the supine position. He received general endotracheal tube anesthesia. His abdomen was prepped and draped usual fashion. There was entered through a low midline incision. The Bookwalter tract with wound. The dolores the abdomen there was an abscess of sigmoid colon. The abscess cavity was entered. The abscess cavity prostate 10 mL of pus. A culture was performed. This point the white line of Toldt was divided in the left colon was mobilized. The distal left colon was transected with a GI stapler. And then using the Enseal device was turned sigmoid colon was divided. And then the right mesial rectum was divided. The rectum was then transected with the contour stapler. Specimen sent to pathology. The abdomen was irrigated. There is no bleeding seen. A suitable spot for the colostomy then brought up in the left upper quadrant. The abdomen saphenous cyst there is no bleeding seen. The fascia was then closed in looped #1 PDS suture. Skin closed talya. Class matured with 3-0 Vicryl suture. Patient top she will well he was sent to the ICU intubated.
[2022-08-02] MEDS ORDERED: propofoL 100 ML IV ONE (22:07)
[2022-08-02 22:15] LABS: Glucose,Whole Blood 140 mg/dL (70-110)
[2022-08-02 22:40] LABS: ABG Base Excess 3.2 mmol/L; ABG HCO3 28 mmol/L (21-25); ABG Oxygen Saturation 98.8 % (94-97); ABG PCO2 49 mmHg (35-45); ABG PH 7.38 (7.35-7.45); ABG PO2 116 mmHg (83-108); ABG TCO2 30 mmol/L (19-24); Allen Test Performed? Yes
--- NOTE | 2022-08-02 23:05 | XR ---
EXAMINATION TYPE: XR chest 1V portable DATE OF EXAM: 08/02/2022 CLINICAL HISTORY: Difficulty breathing had to be intubated. TECHNIQUE: Single AP portable semiupright view of the chest is obtained. COMPARISON: Chest x-ray from one day earlier and older studies. FINDINGS: There is new orogastric tube projecting below diaphragm. There is new endotracheal tube te rminating at aortic knob level approximately 2 to 3 cm above the michael. Increased interstitial markings bilaterally. No suspicious focal airspace opacity, pleural effusion, or pneumothorax is seen. Cardiac silhouette size is stable and within normal limits. Osseous structur es are demineralized. IMPRESSION: 1. New endotracheal and orogastric tubes are in satisfactory position. 2. Chronic changes without acute pulmonary process. No significant change from prior
[2022-08-02] MEDS ORDERED: HYDROmorphone 1 MG/ML 1 ML SYRINGE IVP STA (23:34)
[2022-08-02] MEDS: LACTATED RINGERS 1,000 ML IV SCH (23:43)
[2022-08-03] MEDS: IPRATROPIUM-ALBUTEROL 3 ML NEB INHALATION SCH ×6 (00:32→20:36)
[2022-08-03] MEDS: CHLORHEXIDINE GLUCONATE 15 ML CUP MUCOUS MEM SCH ×3 (01:03→21:26)
[2022-08-03 01:06] LABS: Basophils % (A) 0 %; Eosinophils % (A) 0 %; HCT 37.6 % (39.0-53.0); HGB 12.1 gm/dL (13.0-17.5); Lymphocytes # (A) 0.3 k/uL (1.0-4.8); Lymphocytes % (A) 3 %; MCH 30.3 pg (25.0-35.0); MCHC 32.1 g/dL (31.0-37.0); MCV 94.4 fL (80.0-100.0); Mean Platelet Volume 7.1; Monocytes # (A) 0.4 k/uL (0-1.0); Monocytes % (A) 4 %; Neutrophils # (A) 9.5 k/uL (1.3-7.7); Neutrophils % (A) 92 %; Platelet Count 243 k/uL (150-450); RBC 3.99 m/uL (4.30-5.90); RDW 13.7 % (11.5-15.5); WBC 10.4 k/uL (3.8-10.6)
[2022-08-03] MEDS: PIPERACILLIN-TAZOBACTAM 3.375 GM in SODIUM CHLORIDE 0.9% 100 ML IVPB SCH ×3 (04:28→20:30)
[2022-08-03 05:24] LABS: ABG Base Excess 5.4 mmol/L; ABG HCO3 29 mmol/L (21-25); ABG Oxygen Saturation 99.2 % (94-97); ABG PCO2 42 mmHg (35-45); ABG PH 7.45 (7.35-7.45); ABG PO2 251 mmHg (83-108); ABG TCO2 31 mmol/L (19-24); Allen Test Performed? Yes
[2022-08-03] MEDS: HYDROmorphone 1 MG/ML 1 ML SYRINGE IVP PRN ×4 (05:52→17:02)
[2022-08-03 06:08] LABS: HCT 37.7 % (39.0-53.0); HGB 12.1 gm/dL (13.0-17.5); MCH 29.7 pg (25.0-35.0); MCV 92.7 fL (80.0-100.0); Mean Platelet Volume 7.2; Platelet Count 258 k/uL (150-450); RBC 4.07 m/uL (4.30-5.90); RDW 13.7 % (11.5-15.5); WBC 11.2 k/uL (3.8-10.6)
[2022-08-03 06:18] LABS: Ionized Calcium 5.3 mg/dL (4.5-5.3)
[2022-08-03 06:27] LABS: ALT 32 U/L (4-49); AST 31 U/L (17-59); African American GFR (CKD) >90 (>60 ml/min/1.73 sqM); Albumin 2.6 g/dL (3.5-5.0); Albumin/Globulin Ratio 1.2; Alkaline Phosphatase 44 U/L (38-126); Anion Gap 6 mmol/L; Blood Urea Nitrogen 13 mg/dL (9-20); Calcium 8.3 mg/dL (8.4-10.2); Carbon Dioxide 27 mmol/L (22-30); Chloride 106 mmol/L (98-107); Globulin 2.2 g/dL; Glucose 127 mg/dL (74-99); Non-African American GFR(CKD) 81 (>60 ml/min/1.73 sqM); Potassium 3.8 mmol/L (3.5-5.1); Sodium 139 mmol/L (137-145); Total Bilirubin 0.7 mg/dL (0.2-1.3); Total Protein 4.8 g/dL (6.3-8.2)
[2022-08-03 06:30] LABS: Magnesium 1.9 mg/dL (1.6-2.3)
[2022-08-03] MEDS ORDERED: Potassium Replacement Protocol 1 EACH MISC MISCELLANE PRN ×2 (06:38→06:51)
[2022-08-03] MEDS: DEXTROSE 5%-0.45% NACL 1,000 ML IV SCH ×2 (07:02→17:55)
[2022-08-03] MEDS: POTASSIUM CHLORIDE 10 MEQ in WATER FOR INJECTION 1 100ML.BAG IVPB SCH ×2 (07:03→08:13)
--- NOTE | 2022-08-03 07:38 | XR ---
EXAMINATION TYPE: XR chest 1V portable DATE OF EXAM: 08/03/2022 6:07 AM COMPARISON: Chest radiograph from one day prior. TECHNIQUE: XR chest 1V portable Frontal view of the chest. CLINICAL INDICATION:Male, 72 years old with history of Tube placement; FINDINGS: Lungs/Pleura: Prominent interstitial lung markings are seen scattered throughout the lungs with nadir ening of the diaphragm and increased lucency of the lung apices. No evidence of focal consolidation, pneumothorax or pleural effusion. Pulmonary vascularity: Unremarkable. Heart/mediastinum: Cardiomediastinal silhouette is unremarkable. Musculoskeletal: No acute osseous pathology. Other findings: None Lines/Tubes: Endotracheal tube with distal tip 6.3 cm above the michael. Nasogastric tube with its distal tip and side-port projecting under the diaphragm and projecting over the gastric lumen. IMPRESSION: 1. Chronic changes without acute pulmonary process. No significant change from prior. 2. Stable support tubes.
[2022-08-03] MEDS: HYDROCORTISONE SUCCINATE 100 MG/2 ML VIAL IV SCH ×2 (08:14→16:00)
[2022-08-03] MEDS: ENOXAPARIN 40 MG/0.4 ML SYRINGE SQ SCH (08:14)
[2022-08-03] MEDS: PANTOPRAZOLE 40 MG/10 ML VIAL IV SCH (08:14)
[2022-08-03] MEDS: FORMOTEROL FUMARATE 20 MCG/2 ML NEBU INHALATION SCH ×2 (08:19→20:36)
[2022-08-03] MEDS: BUDESONIDE 1 MG/2 ML NEBU INHALATION SCH ×2 (08:19→20:36)
[2022-08-03] MEDS ORDERED: ENOXAPARIN 40 MG/0.4 ML SYRINGE SQ SCH (09:00)
--- NOTE | 2022-08-03 10:07 | P.PN ---
Subjective Progress Note Date: 08/03/22 Hospital course: Patient is a very pleasant 72-year-old male with a past medical history of COPD home oxygen dependent on 3 L at all times, diverticulosis and GERD. He presented to the emergency department with a chief complaint of abdominal pain. Patient underwent full evaluation in the ED. Labs completed and reviewed. CBC showing severe leukocytosis with WBC count of 18.7 with left shift with neutrophils of 17.1. BMP revealing mild prerenal azotemia with BUN of 21. Glucose was 132 and lactic acid was 1.3. Liver profile unremarkable. Troponin less than 0.012. Urinalysis was negative for infection. Covid PCR was negative. EKG was completed showing normal sinus rhythm and 99 bpm with no noted T-wave or ST abnormalities showing no signs of acute ischemia on personal review and interpretation. Chest x-ray completed and radiology report reviewed showing COPD changes but negative for acute cardiopulmonary process. CT abdomen and pelvis completed and radiology report reviewed, exam positive for acute sigmoid diverticulitis complicated by perforation and pockets of free intraperitoneal air measuring up to 5.5 cm accompanied by trace lower abdominal ascites, secondary small bowel ileus, small to moderate sized hiatal hernia, mild circumferential distal esophageal wall thickening, and prostamegaly with prostate measurement of 5.2 cm wide. Patient was admitted under Gen. surgery team and we were consulted for medical management throughout hospitalization. Last night computed tomography scan showed new inferior suggesting diverticular perforation. So patient that had sigmoidectomy done emergently. After the procedure patient was kept intubated and he was transferred to the ICU. Patient currently intubated and sedated. 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 Patient is on ventilator Data reviewed: Patient's WBC increased slightly from 10.4 to 11.2. The remainder of the lab work is unremarkable Acute perforated diverticulitis with abscess Sigmoid colectomy with end colostomy on 08/02/2032 Sepsis on admission COPD Chronic hypoxemic respiratory failure on 2 L home O2 Plan As per general surgeon management Resume Zosyn 3.375 g every 8 hours Resume D5 half-normal saline. Blood glucose levels are acceptable Operations Assistant to manage vent Pain control Patient was chronically on prednisone 10 mg daily so pulmonology started the p atient on stress dose steroids with hydrocortisone 50 mg every 8 hours DuoNeb standing and as needed Due to prophylaxis: Lovenox Anticipated discharge: Depending on clinical course Anticipated discharge place: Depending on clinical course Objective - Vital Signs Vital signs: Vital Signs Temp 98.5 F 08/03/22 08:00 Pulse 85 08/03/22 09:00 Resp 16 08/03/22 09:00 BP 118/76 08/03/22 09:00 Pulse Ox 97 08/03/22 09:00 FiO2 50 08/03/22 08:20 Intake & Output 08/02/22 08/03/22 08/03/22 18:59 06:59 18:59 Intake Total 1669.819 526.442 Output Total 1415 340 Balance 254.819 186.442 Weight 59.421 kg Intake: IV 700 Intake, IV Titration 969.819 526.442 Amount Lactated Ringers 1,000 ml 900 200 @ 100 mls/hr IV .Q10H YOLANDA Rx#:[id number] Potassium Chloride 10 meq 200 In Water For Injection 1 100ml.bag @ 100 mls/hr IVPB Q1H YOLANDA Rx#: [id number] propofoL 1,000 mg In 69.819 126.442 Empty Bag 1 bag @ 15 MCG/ KG/MIN 5.348 mls/hr IV . [id number] YOLANDA Rx#:[id number] Oral 0 Tube Feeding 0 Output: Urine 1315 340 Estimated Blood Loss 100 Other: Voiding Method Indwelling Catheter # Voids 3 - Labs CBC & Chem 7: 08/03/22 05:45 08/03/22 05:45 Labs: Abnormal Lab Results - Last 24 Hours (Table) 08/02/22 08/02/22 08/02/22 Range/Units 07:02 07:02 11:19 WBC 12.94 H (4.50-10.00) X 10*3/uL RBC 3.80 L (4.40-5.60) X 10*6/uL Hgb 11.1 L (13.0-17.0) g/dL Hct 35.6 L (39.6-50.0) % MCHC 31.2 L (32.0-37.0) g/dL Neutrophils # (1.3-7.7) k/uL Lymphocytes # (1.0-4.8) k/uL ABG pCO2 (35-45) mmHg ABG pO2 (83-108) mmHg ABG HCO3 (21-25) mmol/L ABG Total CO2 (19-24) mmol/L ABG O2 Saturation (94-97) % BUN/Creatinine Ratio 11.09 L (12.00-20.00) Ratio Glucose 145 H (70-110) mg/dL POC Glucose (mg/dL) 151 H (70-110) mg/dL Calcium 8.6 L (8.7-10.3) mg/dL Total Protein 4.8 L (6.2-8.2) g/dL Albumin 3.1 L (3.8-4.9) g/dL 08/02/22 08/02/22 08/02/22 Range/Units 17:08 22:13 22:29 WBC (4.50-10.00) X 10*3/uL RBC (4.40-5.60) X 10*6/uL Hgb (13.0-17.0) g/dL Hct (39.6-50.0) % MCHC (32.0-37.0) g/dL Neutrophils # (1.3-7.7) k/uL Lymphocytes # (1.0-4.8) k/uL ABG pCO2 49 H (35-45) mmHg ABG pO2 116 H (83-108) mmHg ABG HCO3 28 H (21-25) mmol/L ABG Total CO2 30 H (19-24) mmol/L ABG O2 Saturation 98.8 H (94-97) % BUN/Creatinine Ratio (12.00-20.00) Ratio Glucose (70-110) mg/dL POC Glucose (mg/dL) 146 H 140 H (70-110) mg/dL Calcium (8.7-10.3) mg/dL Total Protein (6.2-8.2) g/dL Albumin (3.8-4.9) g/dL 08/03/22 08/03/22 08/03/22 Range/Units 00:08 05:20 05:45 WBC 11.2 H (4.50-10.00) X 10*3/uL RBC 3.99 L 4.07 L (4.40-5.60) X 10*6/uL Hgb 12.1 L 12.1 L (13.0-17.0) g/dL Hct 37.6 L 37.7 L (39.6-50.0) % MCHC (32.0-37.0) g/dL Neutrophils # 9.5 H (1.3-7.7) k/uL Lymphocytes # 0.3 L (1.0-4.8) k/uL ABG pCO2 (35-45) mmHg ABG pO2 251 H (83-108) mmHg ABG HCO3 29 H (21-25) mmol/L ABG Total CO2 31 H (19-24) mmol/L ABG O2 Saturation 99.2 H (94-97) % BUN/Creatinine Ratio (12.00-20.00) Ratio Glucose (70-110) mg/dL POC Glucose (mg/dL) (70-110) mg/dL Calcium (8.7-10.3) mg/dL Total Protein (6.2-8.2) g/dL Albumin (3.8-4.9) g/dL 08/03/22 Range/Units 05:45 WBC (4.50-10.00) X 10*3/uL RBC (4.40-5.60) X 10*6/uL Hgb (13.0-17.0) g/dL Hct (39.6-50.0) % MCHC (32.0-37.0) g/dL Neutrophils # (1.3-7.7) k/uL Lymphocytes # (1.0-4.8) k/uL ABG pCO2 (35-45) mmHg ABG pO2 (83-108) mmHg ABG HCO3 (21-25) mmol/L ABG Total CO2 (19-24) mmol/L ABG O2 Saturation (94-97) % BUN/Creatinine Ratio (12.00-20.00) Ratio Glucose 127 H (70-110) mg/dL POC Glucose (mg/dL) (70-110) mg/dL Calcium 8.3 L (8.7-10.3) mg/dL Total Protein 4.8 L (6.2-8.2) g/dL Albumin 2.6 L (3.8-4.9) g/dL Microbiology - Last 24 Hours (Table) 08/02/22 21:47 Anaerobic Culture - Preliminary Abdomen 08/02/22 21:47 Wound Culture - Preliminary Abdomen 07/29/22 10:06 Blood Culture - Preliminary Blood 07/29/22 10:06 Blood Culture - Preliminary Blood
--- NOTE | 2022-08-03 11:44 | P.PN ---
Subjective Progress Note Date: 08/03/22 CHIEF COMPLAINT: Perforated diverticulitis HISTORY OF PRESENT ILLNESS: Patient is postop day #1 status post sigmoid colectomy with end colostomy for perforated diverticulitis with abscess. Yesterday patient had increased abdominal pain after liquid diet. He had a repeat computed tomography scan completed that had shown new free air is present suggesting diverticular perforation. It was then decided by Dr. Meadows the patient would need surgery. Patient is currently intubated and on mechanical ve ntilation. The plans are to possibly extubate patient later today. Afebrile. Mildly tachycardic. WBC 11.2 hgb 12.1 platelets 258 7139 potassium 3.8 creatinine 0.94 urine output adequate Patient seen and examined with Dr. meadows PHYSICAL EXAM: VITAL SIGNS: Reviewed. GENERAL: Well-developed in no acute distress. HEENT: No sclera icterus. Extraocular movements grossly intact. Moist buccal mucosa. Head is atraumatic, normocephalic. ABDOMEN: Soft. Mildly distended. Ostomy on the left. Evidence of blood in the ostomy bag. No stool. Incisional dressing with areas of saturation. NEUROLOGIC: Alert and oriented. Cranial nerves II through XII grossly intact. ASSESSMENT: 1. Perforated diverticulitis with abscess status post sigmoid colectomy with end colostomy 2. 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 Signing provider agrees with the documented findings, assessment, and plan of care. Objective - Vital Signs Vital signs: Vital Signs Temp 98.5 F 08/03/22 08:00 Pulse 85 08/03/22 09:00 Resp 16 08/03/22 09:00 BP 118/76 08/03/22 09:00 Pulse Ox 97 08/03/22 09:00 FiO2 50 08/03/22 08:20 Intake & Output 08/02/22 08/03/22 08/03/22 18:59 06:59 18:59 Intake Total 1669.819 300 Output Total 1415 340 Balance 254.819 -40 Weight 59.421 kg Intake: IV 700 Intake, IV Titration 969.819 300 Amount Lactated Ringers 1,000 ml 900 @ 100 mls/hr IV .Q10H [facility]OL[facility] Rx#:[id number] Potassium Chloride 10 meq 200 In Water For Injection 1 100ml.bag @ 100 mls/hr IVPB Q1H [facility]OL[facility]DA Rx#: [id number] propofoL 1,000 mg In 69.819 100 Empty Bag 1 bag @ 15 MCG/ KG/MIN 5.348 mls/hr IV . [id number] YOLANDA Rx#:[id number] Oral 0 Output: Urine 1315 340 Estimated Blood Loss 100 Other: Voiding Method Indwelling Catheter # Voids 3 - Labs CBC & Chem 7: 08/03/22 05:45 08/03/22 05:45 Labs: Abnormal Lab Results - Last 24 Hours (Table) 08/02/22 08/02/22 08/02/22 Range/Units 07:02 07:02 11:19 WBC 12.94 H (4.50-10.00) X 10*3/uL RBC 3.80 L (4.40-5.60) X 10*6/uL Hgb 11.1 L (13.0-17.0) g/dL Hct 35.6 L (39.6-50.0) % MCHC 31.2 L (32.0-37.0) g/dL Neutrophils # (1.3-7.7) k/uL Lymphocytes # (1.0-4.8) k/uL ABG pCO2 (35-45) mmHg ABG pO2 (83-108) mmHg ABG HCO3 (21-25) mmol/L ABG Total CO2 (19-24) mmol/L ABG O2 Saturation (94-97) % BUN/Creatinine Ratio 11.09 L (12.00-20.00) Ratio Glucose 145 H (70-110) mg/dL POC Glucose (mg/dL) 151 H (70-110) mg/dL Calcium 8.6 L (8.7-10.3) mg/dL Total Protein 4.8 L (6.2-8.2) g/dL Albumin 3.1 L (3.8-4.9) g/dL 08/02/22 08/02/22 08/02/22 Range/Units 17:08 22:13 22:29 WBC (4.50-10.00) X 10*3/uL RBC (4.40-5.60) X 10*6/uL Hgb (13.0-17.0) g/dL Hct (39.6-50.0) % MCHC (32.0-37.0) g/dL Neutrophils # (1.3-7.7) k/uL Lymphocytes # (1.0-4.8) k/uL ABG pCO2 49 H (35-45) mmHg ABG pO2 116 H (83-108) mmHg ABG HCO3 28 H (21-25) mmol/L ABG Total CO2 30 H (19-24) mmol/L ABG O2 Saturation 98.8 H (94-97) % BUN/Creatinine Ratio (12.00-20.00) Ratio Glucose (70-110) mg/dL POC Glucose (mg/dL) 146 H 140 H (70-110) mg/dL Calcium (8.7-10.3) mg/dL Total Protein (6.2-8.2) g/dL Albumin (3.8-4.9) g/dL 08/03/22 08/03/22 08/03/22 Range/Units 00:08 05:20 05:45 WBC 11.2 H (4.50-10.00) X 10*3/uL RBC 3.99 L 4.07 L (4.40-5.60) X 10*6/uL Hgb 12.1 L 12.1 L (13.0-17.0) g/dL Hct 37.6 L 37.7 L (39.6-50.0) % MCHC (32.0-37.0) g/dL Neutrophils # 9.5 H (1.3-7.7) k/uL Lymphocytes # 0.3 L (1.0-4.8) k/uL ABG pCO2 (35-45) mmHg ABG pO2 251 H (83-108) mmHg ABG HCO3 29 H (21-25) mmol/L ABG Total CO2 31 H (19-24) mmol/L ABG O2 Saturation 99.2 H (94-97) % BUN/Creatinine Ratio (12.00-20.00) Ratio Glucose (70-110) mg/dL POC Glucose (mg/dL) (70-110) mg/dL Calcium (8.7-10.3) mg/dL Total Protein (6.2-8.2) g/dL Albumin (3.8-4.9) g/dL 05/17/23 Range/Units 05:45 WBC (4.50-10.00) X 10*3/uL RBC (4.40-5.60) X 10*6/uL Hgb (13.0-17.0) g/dL Hct (39.6-50.0) % MCHC (32.0-37.0) g/dL Neutrophils # (1.3-7.7) k/uL Lymphocytes # (1.0-4.8) k/uL ABG pCO2 (35-45) mmHg ABG pO2 (83-108) mmHg ABG HCO3 (21-25) mmol/L ABG Total CO2 (19-24) mmol/L ABG O2 Saturation (94-97) % BUN/Creatinine Ratio (12.00-20.00) Ratio Glucose 127 H (70-110) mg/dL POC Glucose (mg/dL) (70-110) mg/dL Calcium 8.3 L (8.7-10.3) mg/dL Total Protein 4.8 L (6.2-8.2) g/dL Albumin 2.6 L (3.8-4.9) g/dL Microbiology - Last 24 Hours (Table) 07/29/22 10:06 Blood Culture - Preliminary Blood 07/29/22 10:06 Blood Culture - Preliminary Blood
--- NOTE | 2022-08-03 12:34 | P.PN ---
Subjective Progress Note Date: 08/03/22 Principal diagnosis: Sigmoid diverticulitis with perforation and abscess I was asked to evaluate this patient because of his advanced COPD and ongoing abdominal complications. The patient was seen in the emergency department. The patient is known to have diverticulosis he came in for an acute abdominal pain this morning. CAT scan of the abdomen was done and the patient was found to have acute sigmoid diverticulitis. This was a comp acute diverticulitis as perforation suspected and the patient had pockets of free intraperitoneal air measuring up to 5.5 cm in size. There is also trace lower abdominal ascites. No evidence of any abscess formation. Is also small bowel ileus. There is moderate size hiatal hernia also. The patient has a large prostate. Is known to have prostate cancer. The patient is also known to have advanced COPD. The patient is auction dependent. The patient is steroid dependent and is taking 10 mg of prednisone on a daily basis on outpatient basis. He has been followed up through our office. He has exertional dyspnea which is chronic in his significant limitation in exercise capacity because of his advanced COPD. No chest pain. No worsening shortness of breath. No swelling lower extremities. No previous history of DVT or pulmonary embolism. No nausea or emesis. No aspiration. GI surgeries on the case. Currently is on antibiotics. No plans for any surgery at this point in time. Blood work shows a WBC count of 18, he moglobin 13, normal cognition profile, BUN is 20 over the creatinine of 0.9. LFTs are normal. Lactic acid level is at 1.3. On today's evaluation of 07/30/2022, the patient's abdomen is less tender. The patient remains nothing by mouth. No worsening shortness of breath. The patient is on IV Zosyn. The patient is going to be treated conservatively. White cell count is at 14 with a hemoglobin of 11.1 and a platelet count of 245 noted the white cycles lower compared to yesterday. BUN is at 21 with a creatinine of 1.3. Sodium is at 143. Awake and alert and communicating. He remains on oxygen at 2 L/m nasal cannula. On 07/31/2022, the patient is doing well. No specific complaints. Abdominal pain is subsiding gradually. His COPD remains on IV Zosyn. No plans for any surgical intervention this point in time. The patient is known to have advanced COPD and the patient also has oxygen steroid dependent COPD and the patient is currently on hydrocortisone. IV fluids are in the form of D5 half-normal saline at rate of 100 mL an hour. The white cell count is down to 8.2 with hemoglobin 11.5 and a platelet count of 15. BUN is at 60 with a creatinine of 1 and his sodium level is at 137. The patient is seen today 08/01/2022 in follow-up on the regular medical floor. He is currently sitting up in bed. Awake and alert in no acute distress. Maintaining O2 saturations in the 90s on 2 L/m per nasal cannula. Currently on D5.45 normal saline at 100 ML's per hour. He is continued on Zosyn. His abdominal discomfort is gradually improving. Follow-up chest x-ray continues to show diffuse severe emphysematous changes with coarsened interstitium suspicious for chronic interstitial lung disease. Blood culture reveals no growth. White count 8.1. Hemoglobin 10.5. Platelets 225. Sodium 142. Potassium 3.9. Bicarb 26. BUN 11. Creatinine 1.0. Glucose 165. ProBNP 1500. Troponin negative 1. AST 12. ALT 13. Alk phos 39. Continued on DuoNeb inhalations. Lovenox for DVT prophylaxis. Remains on Solu-Cortef. The patient is seen today 08/02/2022 in follow-up on the regular medical floor. He is awake and alert in no acute distress. Resting fairly comfortably in bed. Maintaining good O2 saturations in the 90s on 2 L/m per nasal cannula. He is receiving D5 and half-normal saline at 100 ML's per hour. Remains on antibiotics in the form of Zosyn. Lovenox for DVT prophylaxis. Continued on Solu-Cortef. His abdominal discomfort is waxing and waning. A little more tender today. He remains nothing by mouth. Blood cultures revealed no growth. Blood glucose 151. Reevaluated today on 08/03/22, patient underwent sigmoid colectomy and end colostomy yesterday by Dr. Moyer mostly because of his sigmoid diverticulitis with perforation and abscess, patient came back to the ICU on mechanical ventilation. Remains intubated and mechanically ventilated. Patient is known to have severe end-stage COPD FEV1 is no more than 26%, however the benefits of the surgery obviously outweighed the risks. And surgery had to be done yesterday because the patient continued to have significant abdominal pain and tenderness. Patient is now on assist control rate of 16, volume 400 FiO2 50% and PEEP of 5, ABG showed a pO2 of 251 pCO2 42 pH of 7.45. His chest x-ray is showing minimal atelectasis, no infiltrate, no evidence of congestive heart failure, his electrolytes are normal renal profile is normal, CBC is relatively unremarkable. Hence I cut down his FiO2 to 35%, patient remains on enteral are at 100 mL an hour he is also on propofol at 50 mcg/kg/m, I have recommended stopping propofol, and was the patient is awake we will recommend checking weani ng parameters, and if reasonable proceed with a pressure support and CPAP with a pressure support of 10, follow-up ABG in 1 hour after being on pressure support and CPAP, and we will likely consider extubation later today. Objective - Vital Signs Vital signs: Vital Signs Temp 98.5 F 08/03/22 08:00 Pulse 112 H 08/03/22 12:20 Resp 15 08/03/22 11:00 BP 143/89 08/03/22 11:00 Pulse Ox 91 L 08/03/22 11:00 FiO2 35 08/03/22 12:00 Intake & Output 08/02/22 08/03/22 08/03/22 18:59 06:59 18:59 Intake Total 1669.819 826.442 Output Total 1415 575 Balance 254.819 251.442 Weight 59.421 kg Intake: IV 700 Intake, IV Titration 969.819 826.442 Amount Lactated Ringers 1,000 ml 900 500 @ 100 mls/hr IV .Q10H YOL[facility]DA Rx#:[id number] Potassium Chloride 10 meq 200 In Water For Injection 1 100ml.bag @ 100 mls/hr IVPB Q1H YOLANDA Rx#: [id number] propofoL 1,000 mg In 69.819 126.442 Empty Bag 1 bag @ 15 MCG/ KG/MIN 5.348 mls/hr IV . [id number] YOLANDA Rx#:[id number] Oral 0 Tube Feeding 0 Output: Urine 1315 575 Estimated Blood Loss 100 Other: Voiding Method Indwelling Catheter Indwelling Catheter # Voids 3 - Exam Physical Exam: Revealed a 72-year-old white male in no distress intubated mechanically ventilated sedated Head: Atraumatic normocephalic. HEENT:[Neck is supple.] [No neck masses.] [No thyromegaly.] [No JVD.] Endotracheal tube and nasogastric tube are intact. Chest: [Symmetrical chest expansion, diminished breath sound bilaterally no crackles or rhonchi or wheezes Cardiac Exam: [Normal S1 and S2, no S3 gallop, no murmur.] Abdomen: Postsurgical, soft, colostomy seems to be intact. Extremities: [No clubbing, no edema, no cyanosis.] Neurological Exam: Could not assess, patient is sedated on propofol. Psychiatric: Could not be assessed, sedated, on propofol. - Labs CBC & Chem 7: 08/03/22 05:45 08/03/22 05:45 Labs: Abnormal Lab Results - Last 24 Hours (Table) 08/02/22 08/02/22 08/02/22 Range/Units 07:02 07:02 17:08 WBC 12.94 H (4.50-10.00) X 10*3/uL RBC 3.80 L (4.40-5.60) X 10*6/uL Hgb 11.1 L (13.0-17.0) g/dL Hct 35.6 L (39.6-50.0) % MCHC 31.2 L (32.0-37.0) g/dL Neutrophils # (1.3-7.7) k/uL Lymphocytes # (1.0-4.8) k/uL ABG pCO2 (35-45) mmHg ABG pO2 (83-108) mmHg ABG HCO3 (21-25) mmol/L ABG Total CO2 (19-24) mmol/L ABG O2 Saturation (94-97) % BUN/Creatinine Ratio 11.09 L (12.00-20.00) Ratio Glucose 145 H (70-110) mg/dL POC Glucose (mg/dL) 146 H (70-110) mg/dL Calcium 8.6 L (8.7-10.3) mg/dL Total Protein 4.8 L (6.2-8.2) g/dL Albumin 3.1 L (3.8-4.9) g/dL 08/02/22 08/02/22 08/03/22 Range/Units 22:13 22:29 00:08 WBC (4.50-10.00) X 10*3/uL RBC 3.99 L (4.40-5.60) X 10*6/uL Hgb 12.1 L (13.0-17.0) g/dL Hct 37.6 L (39.6-50.0) % MCHC (32.0-37.0) g/dL Neutrophils # 9.5 H (1.3-7.7) k/uL Lymphocytes # 0.3 L (1.0-4.8) k/uL ABG pCO2 49 H (35-45) mmHg ABG pO2 116 H (83-108) mmHg ABG HCO3 28 H (21-25) mmol/L ABG Total CO2 30 H (19-24) mmol/L ABG O2 Saturation 98.8 H (94-97) % BUN/Creatinine Ratio (12.00-20.00) Ratio Glucose (70-110) mg/dL POC Glucose (mg/dL) 140 H (70-110) mg/dL Calcium (8.7-10.3) mg/dL Total Protein (6.2-8.2) g/dL Albumin (3.8-4.9) g/dL 08/03/22 08/03/22 08/03/22 Range/Units 05:20 05:45 05:45 WBC 11.2 H (4.50-10.00) X 10*3/uL RBC 4.07 L (4.40-5.60) X 10*6/uL Hgb 12.1 L (13.0-17.0) g/dL Hct 37.7 L (39.6-50.0) % MCHC (32.0-37.0) g/dL Neutrophils # (1.3-7.7) k/uL Lymphocytes # (1.0-4.8) k/uL ABG pCO2 (35-45) mmHg ABG pO2 251 H (83-108) mmHg ABG HCO3 29 H (21-25) mmol/L ABG Total CO2 31 H (19-24) mmol/L ABG O2 Saturation 99.2 H (94-97) % BUN/Creatinine Ratio (12.00-20.00) Ratio Glucose 127 H (70-110) mg/dL POC Glucose (mg/dL) (70-110) mg/dL Calcium 8.3 L (8.7-10.3) mg/dL Total Protein 4.8 L (6.2-8.2) g/dL Albumin 2.6 L (3.8-4.9) g/dL Microbiology - Last 24 Hours (Table) 08/02/22 21:47 Anaerobic Culture - Preliminary Abdomen 08/02/22 21:47 Wound Culture - Preliminary Abdomen 07/29/22 10:06 Blood Culture - Preliminary Blood 07/29/22 10:06 Blood Culture - Preliminary Blood Assessment and Plan Assessment: Impression: Acute perforated sigmoid diverticulitis with abscess, status post sigmoid colectomy and end colostomy postoperative day #1 Severe underlying COPD, patient is still requiring mechanical ventilation because of his severe underlying COPD could not be extubated post surgery yest alethaay and that is expected. Chronic hypoxic with shortness failure, patient is normally on oxygen at home History of diverticulosis Ex-smoker, quit smoking 2 years ago History of prostate cancer History of underlying GERD Recent hospitalization for acute COPD exacerbation back in June Recommendation: Continue ventilatory support for now Vent settings adjustment was made Recommended stopping propofol and when the patient is awake to proceed with weaning parameters, and decide whether the patient should have a weaning trial with pressure support of 10 and CPAP Continue bronchodilators in the meantime. Continue GI and DVT prophylaxis. We will address the nutritional status after extubating the patient hopefully today. May even require TPN if necessary. Continue steroids. Patient is critically ill. Critical care time is over 30 minutes We will continue to follow Time with Patient: Greater than 30
[2022-08-03] MEDS ORDERED: LIDOCAINE 1% INJ 10MG/ML (20 ML MDV) ONE (14:12)
[2022-08-03] MEDS ORDERED: LIDOCAINE 1% INJ 10MG/ML (5 ML VIAL-PF) SQ ONE (14:33)
--- NOTE | 2022-08-03 15:05 | XR ---
EXAMINATION TYPE: XR chest 1V confirm line plcmt DATE OF EXAM: 08/03/2022 COMPARISON: 08/03/2022 HISTORY: Tube placement TECHNIQUE: Single frontal view of the chest is obtained. FINDINGS: Diffuse emphysematous changes with coarsened interstitium greater on the left. No sizable pneumothorax. Portions of the left hemithorax are not included on the exam. NG tube is seen likely at the level of the gastric fundus. PICC line seen with the tip overlying SVC. ET tube has been removed . Contrast in the upper abdomen noted appears contained within the bowel. IMPRESSION: 1. PICC line appears in good position with diffuse emphysematous changes and asymmetric interstitial findings could be on the basis of chronic interstitial lung disease or pneumonitis.
--- NOTE | 2022-08-03 15:12 | IR ---
PICC LINE PLACEMENT: HISTORY: TPN therapy PROCEDURE: Ultrasound guidance of PICC line placement. SHADOWGRAPH OPERATOR: Dr. Zuleta. COMPLICATIONS: None ANESTHESIA: 1. 1% Lidocaine locally. FINDINGS/TECHNIQUE: The procedure was explained to the patient. The risks, complications, benefits and alternatives were discussed and any questions were answered. Informed consent was obtained. The patient was placed supine on the fluoroscopic table and prepped and draped in the usual sterile fash ion. Utilizing a 21 gauge needle and sonographic guidance, access in the left basilic vein was achi eved and there is placement of a 0.018 guidewire. The vein is patent. A 5-F. sheath was placed over the guidewire. The guidewire and dilator were removed and a 5-F. Double lumen PICC line was placed through the sheath with the chest x-ray confirming the tip at the level of the SVC. The sheath was r emoved, the catheter was flushed and sutured into position. The patient was stable throughout the pr ocedure and remained stable upon discharge from the Department of Radiology. The vein puncture was patent under ultrasound. A kendall scale image was obtained to document patency of the vein punctured. All elements of the maximal barrier technique were utilized. IMPRESSION: 1. Successful PICC line placement under ultrasound performed bedside within the ICU.
[2022-08-03] MEDS ORDERED: MVI, ADULT NO.4 WITH VIT K 10 ML, TRACE (CONC-1ML/DOSE) 1 ML in AMINO ACID 4.25%-D10W+L... IV SCH ×3 (16:00)
[2022-08-03] MEDS: LACTATED RINGERS 1,000 ML IV SCH ×2 (16:00→21:26)
--- NOTE | 2022-08-03 22:18 | P.CONS ---
History of Present Illness - Reason for Consult Consult date: 08/03/22 Perforated diverticulitis Requesting physician: Reynold Moyer - Chief Complaint Abdominal pain x days - History of Present Illness Patient is a 72-year-old old male presented to the hospital 5 days ago on 07/29/2022 for evaluation of abdominal pain that has been going on for few days before presentation to the hospital with worsening abdominal pain patient presented to hospital on arrival to the ER the patient was afebrile he did have a elevated white count of 18.7 with a left shift patient did have a CT of abdominal pelvis which shows sigmoid diverticulitis complicated by perforation and pockets of free intraperitoneal air patient has been treated by general surgery internal medicine and pulmonary services and was treated initially medically patient did have a worsening of abdominal pain with a repeat CAT scan done on 08/02/2022 this shows new free air is present suggestive of a diverticular perforation patient was taken to the OR last night and this patient s/p sigmoid colectomy and end colostomy along with abdominal cultures postsurgery the patient has been on the vent admitted to ICU infectious disease was consulted for further management of antibiotic repeat most information has been obtained from review the chart talking to family as the patient intubated on the vent and could not provide reliable history Review of Systems Positive points has been mentioned in HPI complete review could not be obtained because patient is intubated on the vent Past Medical History Past Medical History: Cancer, COPD, GERD/Reflux Additional Past Medical History / Comment(s): positional upper abdominal pain stated when he changes position from laying to sitting and standing. History of Any Multi-Drug Resistant Organisms: None Reported Past Surgical History: Orthopedic Surgery, Tonsillectomy Additional Past Surgical History / Comment(s): Right shoulder arthroscopy. Colonoscopy. EGD Past Anesthesia/Blood Transfusion Reactions: No Reported Reaction Additional Past Anesthesia/Blood Transfusion Reaction / Comm: Pt has CLAUSTROPHOBIA Past Psychological History: No Psychological Hx Reported Additional Psychological History / Comment(s): . Smoking Status: Former smoker Past Alcohol Use History: None Reported Additional Past Alcohol Use History / Comment(s): Pt started smokig in 1967, QUIT JULY 2020. Pt quit drinking 20 years ago. Past Drug Use History: None Reported - Past Family History Father Family Medical History: Cancer Mother Family Medical History: Cancer Additional Family Medical History / Comment(s): Mother in her 50s with some form of cancer. Pt/spouse do not recall type of cancer. Medications and Allergies Home Medications Medication Instructions Recorded Confirmed Type Multivitamins, Thera [Multivitamin 1 tab PO DAILY 01/22/20 07/29/22 History (formulary)] Ipratropium-Albuterol Nebulize 3 ml INHALATION RT-QID PRN 07/30/21 07/29/22 History [Duoneb 0.5 mg-3 mg/3 ml Soln] Fluticasone Propion/Salmeterol 1 puff INHALATION RT-BID 07/16/22 07/29/22 History [Wixela 250-50 Inhub] Ipratropium-Albuterol Nebulize 3 ml INHALATION RT-QID 2 Days each 07/18/22 07/29/22 Rx [Duoneb 0.5 mg-3 mg/3 ml Soln] Pantoprazole Sodium [Protonix] 40 mg PO DAILY #30 tab 07/18/22 07/29/22 Rx guaiFENesin [Mucinex] 600 mg PO Q12HR tab 07/18/22 07/29/22 Rx Acetaminophen Tab [Tylenol] 650 mg PO Q4HR PRN tab 08/29/22 Rx Anidulafungin [Eraxis] 100 mg IVPB DAILY 14 Days each 08/29/22 Rx HYDROcodone/APAP 5-325MG [[place] 1 each PO Q4HR PRN #18 tab 08/29/22 Rx 5-325] Ibuprofen [Motrin] 400 mg PO Q6HR PRN tab 08/29/22 Rx Mirtazapine [Remeron] 7.5 mg PO HS tab 08/29/22 Rx Tamsulosin [Flomax] 0.4 mg PO BID cap 08/29/22 Rx predniSONE [Deltasone] 20 mg PO DAILY tab 08/29/22 Rx Allergies Allergy/AdvReac Type Severity Reaction Status Date / Time No Known Allergies Allergy Verified 07/29/22 09:06 Physical Exam Vitals: Vital Signs Temp Pulse Pulse Resp BP BP Pulse Ox 08/03/22 11:00 108 H 15 143/89 91 L 08/03/22 10:30 109 H 14 143/92 92 L 08/03/22 10:00 116 H 15 146/83 92 L 08/03/22 09:30 105 H 15 109/76 96 08/03/22 09:00 85 16 118/76 97 08/03/22 08:54 96 08/03/22 08:44 88 08/03/22 08:43 88 08/03/22 08:30 80 0 L 130/79 97 08/03/22 08:25 84 08/03/22 08:20 08/03/22 08:00 98.5 F 87 8 L 123/72 98 08/03/22 07:30 73 16 109/70 99 08/03/22 07:00 71 16 113/71 98 08/03/22 06:30 84 16 126/75 98 08/03/22 06:00 89 16 133/87 98 08/03/22 05:30 87 16 140/94 98 08/03/22 05:09 93 08/03/22 05:00 96 18 132/76 98 08/03/22 04:53 08/03/22 04:30 86 16 135/80 97 08/03/22 04:00 97.8 F 81 16 129/79 97 08/03/22 03:46 08/03/22 03:30 82 16 136/80 97 08/03/22 03:00 84 16 145/85 97 08/03/22 02:30 87 16 141/77 97 08/03/22 02:00 81 16 132/82 97 08/03/22 01:30 86 16 141/84 98 08/03/22 01:00 82 18 145/90 98 08/03/22 00:45 82 08/03/22 00:34 08/03/22 00:32 88 08/03/22 00:30 86 18 151/92 98 08/03/22 00:28 08/03/22 00:00 97.0 F L 90 16 159/106 98 08/02/22 23:30 102 H 16 162/95 98 08/02/22 23:00 98 18 179/102 96 08/02/22 22:48 08/02/22 22:30 87 0 L 179/102 98 08/02/22 22:03 99 08/02/22 22:00 08/02/22 18:57 98.2 F 91 18 134/80 97 08/02/22 16:14 84 08/02/22 16:03 86 08/02/22 14:00 98.4 F 76 18 128/73 96 08/02/22 12:01 84 08/02/22 11:50 82 FiO2 08/03/22 11:00 08/03/22 10:30 08/03/22 10:00 08/03/22 09:30 08/03/22 09:00 08/03/22 08:54 08/03/22 08:44 08/03/22 08:43 08/03/22 08:30 08/03/22 08:25 08/03/22 08:20 50 08/03/22 08:00 35 08/03/22 07:30 08/03/22 07:00 50 08/03/22 06:30 08/03/22 06:00 50 08/03/22 05:30 08/03/22 05:09 08/03/22 05:00 50 08/03/22 04:53 50 08/03/22 04:30 08/03/22 04:00 50 08/03/22 03:46 50 08/03/22 03:30 08/03/22 03:00 50 08/03/22 02:30 08/03/22 02:00 08/03/22 01:30 08/03/22 01:00 50 08/03/22 00:45 08/03/22 00:34 50 08/03/22 00:32 08/03/22 00:30 08/03/22 00:28 50 08/03/22 00:00 50 08/02/22 23:30 08/02/22 23:00 08/02/22 22:48 50 08/02/22 22:30 08/02/22 22:03 08/02/22 22:00 50 08/02/22 18:57 08/02/22 16:14 08/02/22 16:03 08/02/22 14:00 08/02/22 12:01 08/02/22 11:50 Intake and Output 08/02/22 08/03/22 08/03/22 22:59 06:59 14:59 Intake Total 705.348 964.471 726.442 Output Total 350 1065 500 Balance 355.348 -100.529 226.442 Intake: IV 700 Intake, IV Titration 5.348 964.471 726.442 Amount Lactated Ringers 1,000 ml 900 400 @ 100 mls/hr IV .Q10H YOLANDA Rx#:[id number] Potassium Chloride 10 meq 200 In Water For Injection 1 100ml.bag @ 100 mls/hr IVPB Q1H YOLANDA Rx#: [id number] propofoL 1,000 mg In 5.348 64.471 126.442 Empty Bag 1 bag @ 15 MCG/ KG/MIN 5.348 mls/hr IV . [id number] YOLANDA Rx#:[id number] Oral 0 Tube Feeding 0 Output: Urine 250 1065 500 Estimated Blood Loss 100 Other: Voiding Method Indwelling Catheter # Voids 3 Weight 59.421 kg GENERAL DESCRIPTION: Elderly male intubated on the vent HEENT: Shows Pallor , no scleral icterus. Oral mucous membrane is dry. NECK: Trachea central, no thyromegaly. LUNGS: Unlabored breathing. Clear to auscultation anteriorly. HEART: S1, S2, regular rate and rhythm. No loud murmur ABDOMEN: Soft, midline incision is intact and no output in the colostomy EXTREMITIES: No edema of feet. SKIN: No rash, no masses palpable. NEUROLOGICAL: The patient is awake, on the vent, unable to communicate further neuro exam could not be completed Results CBC & Chem 7: 08/26/22 07:37 08/26/22 07:37 Labs: Abnormal Lab Results - Last 24 Hours (Table) 08/02/22 08/02/22 08/02/22 Range/Units 07:02 07:02 17:08 WBC 12.94 H (4.50-10.00) X 10*3/uL RBC 3.80 L (4.40-5.60) X 10*6/uL Hgb 11.1 L (13.0-17.0) g/dL Hct 35.6 L (39.6-50.0) % MCHC 31.2 L (32.0-37.0) g/dL Neutrophils # (1.3-7.7) k/uL Lymphocytes # (1.0-4.8) k/uL ABG pCO2 (35-45) mmHg ABG pO2 (83-108) mmHg ABG HCO3 (21-25) mmol/L ABG Total CO2 (19-24) mmol/L ABG O2 Saturation (94-97) % BUN/Creatinine Ratio 11.09 L (12.00-20.00) Ratio Glucose 145 H (70-110) mg/dL POC Glucose (mg/dL) 146 H (70-110) mg/dL Calcium 8.6 L (8.7-10.3) mg/dL Total Protein 4.8 L (6.2-8.2) g/dL Albumin 3.1 L (3.8-4.9) g/dL 08/02/22 08/02/22 08/03/22 Range/Units 22:13 22:29 00:08 WBC (4.50-10.00) X 10*3/uL RBC 3.99 L (4.40-5.60) X 10*6/uL Hgb 12.1 L (13.0-17.0) g/dL Hct 37.6 L (39.6-50.0) % MCHC (32.0-37.0) g/dL Neutrophils # 9.5 H (1.3-7.7) k/uL Lymphocytes # 0.3 L (1.0-4.8) k/uL ABG pCO2 49 H (35-45) mmHg ABG pO2 116 H (83-108) mmHg ABG HCO3 28 H (21-25) mmol/L ABG Total CO2 30 H (19-24) mmol/L ABG O2 Saturation 98.8 H (94-97) % BUN/Creatinine Ratio (12.00-20.00) Ratio Glucose (70-110) mg/dL POC Glucose (mg/dL) 140 H (70-110) mg/dL Calcium (8.7-10.3) mg/dL Total Protein (6.2-8.2) g/dL Albumin (3.8-4.9) g/dL 08/03/22 08/03/22 08/03/22 Range/Units 05:20 05:45 05:45 WBC 11.2 H (4.50-10.00) X 10*3/uL RBC 4.07 L (4.40-5.60) X 10*6/uL Hgb 12.1 L (13.0-17.0) g/dL Hct 37.7 L (39.6-50.0) % MCHC (32.0-37.0) g/dL Neutrophils # (1.3-7.7) k/uL Lymphocytes # (1.0-4.8) k/uL ABG pCO2 (35-45) mmHg ABG pO2 251 H (83-108) mmHg ABG HCO3 29 H (21-25) mmol/L ABG Total CO2 31 H (19-24) mmol/L ABG O2 Saturation 99.2 H (94-97) % BUN/Creatinine Ratio (12.00-20.00) Ratio Glucose 127 H (70-110) mg/dL POC Glucose (mg/dL) (70-110) mg/dL Calcium 8.3 L (8.7-10.3) mg/dL Total Protein 4.8 L (6.2-8.2) g/dL Albumin 2.6 L (3.8-4.9) g/dL Microbiology - Last 24 Hours (Table) 08/02/22 21:47 Anaerobic Culture - Preliminary Abdomen 08/02/22 21:47 Wound Culture - Preliminary Abdomen 07/29/22 10:06 Blood Culture - Preliminary Blood 07/29/22 10:06 Blood Culture - Preliminary Blood Assessment and Plan (1) Diverticulitis of colon with perforation Status: Acute Code(s): K57.20 - DVTRCLI OF LG INT W PERFORATION AND ABSCESS W/O BLEEDING SNOMED Code(s): 83227100 Plan: 1patient was in the hospital with abdominal pain has been diagnosed with a complicated diverticulitis failing medical therapy and the patient subsequently status post laparotomy sigmoid colectomy and diverting colostomy with concern for secondary peritonitis from perforated sigmoid diverticulitis and need to cov er for enteric gram-negative both aerobes and anaerobes 2-patient to continue Zosyn while waiting for the culture to finalize Family at the bedside questions concerns answered We will follow on clinical condition and cultures to further adjust medication if needed Thank you for this consultation we will follow the patient along with you Time with Patient: Greater than 30
[2022-08-04] MEDS: HYDROmorphone 0.5 MG/0.5 ML SYRINGE IVP PRN ×3 (00:33→08:23)
[2022-08-04] MEDS: HYDROCORTISONE SUCCINATE 100 MG/2 ML VIAL IV SCH ×3 (01:12→16:22)
[2022-08-04] MEDS: PIPERACILLIN-TAZOBACTAM 3.375 GM in SODIUM CHLORIDE 0.9% 100 ML IVPB SCH ×3 (04:34→20:08)
[2022-08-04 05:05] LABS: Glucose,Whole Blood 137 mg/dL (70-110)
[2022-08-04 06:32] LABS: Basophils % (A) 0 %; Eosinophils % (A) 0 %; HCT 33.6 % (39.0-53.0); HGB 10.9 gm/dL (13.0-17.5); Lymphocytes # (A) 0.3 k/uL (1.0-4.8); Lymphocytes % (A) 3 %; MCH 29.9 pg (25.0-35.0); MCHC 32.4 g/dL (31.0-37.0); MCV 92.4 fL (80.0-100.0); Mean Platelet Volume 7.2; Monocytes # (A) 0.2 k/uL (0-1.0); Monocytes % (A) 3 %; Neutrophils # (A) 8.5 k/uL (1.3-7.7); Neutrophils % (A) 93 %; Platelet Count 230 k/uL (150-450); RBC 3.64 m/uL (4.30-5.90); RDW 13.6 % (11.5-15.5); WBC 9.1 k/uL (3.8-10.6)
[2022-08-04 06:35] LABS: Magnesium 2.1 mg/dL (1.6-2.3); Phosphorus 3.1 mg/dL (2.5-4.5); Potassium 3.9 mmol/L (3.5-5.1)
[2022-08-04] MEDS: LACTATED RINGERS 1,000 ML IV SCH ×2 (06:49→16:21)
[2022-08-04] MEDS: PANTOPRAZOLE 40 MG/10 ML VIAL IV SCH (08:22)
[2022-08-04] MEDS: ENOXAPARIN 40 MG/0.4 ML SYRINGE SQ SCH (08:22)
[2022-08-04] MEDS: IPRATROPIUM-ALBUTEROL 3 ML NEB INHALATION SCH ×5 (09:17→21:03)
[2022-08-04] MEDS: BUDESONIDE 1 MG/2 ML NEBU INHALATION SCH ×2 (09:17→21:03)
[2022-08-04] MEDS: FORMOTEROL FUMARATE 20 MCG/2 ML NEBU INHALATION SCH ×2 (09:17→21:03)
--- NOTE | 2022-08-04 11:02 | P.PN ---
Subjective Progress Note Date: 08/04/22 Hospital Course: 72-year-old male with a past medical history of COPD home oxygen dependent on 3 L at all times, diverticulosis and GERD. He presented to the emergency department with a chief complaint of abdominal pain. CBC showing severe leukocytosis with WBC count of 18.7 with left shift with neutrophils of 17.1. BMP revealing mild prerenal azotemia with BUN of 21. Glucose was 132 and lactic acid was 1.3. Liver profile unremarkable. Troponin less than 0.012. Urinalysis was negative for infection. Covid PCR was negative. EKG was completed showing normal sinus rhythm and 99 bpm with no noted T-wave or ST abnormalities showing no signs of acute ischemia on personal review and interpretation. Chest x-ray showing COPD changes but negative for acute cardiopulmonary process. CT abdomen and pelvis exam positive for acute sigmoid diverticulitis complicated by perforation and pockets of free intraperitoneal air measuring up to 5.5 cm accompanied by trace lower abdominal ascites, secondary small bowel ileus, small to moderate sized hiatal hernia, mild circumferential distal esophageal wall thickening, and prostamegaly with prostate measurement of 5.2 cm wide. Patient was admitted under Gen. surgery team and sound physicians consulted for medical management throughout hospitalization. Overnight, computed tomography scan showed new inferior suggesting diverticular perforation. So patient that had sigmoidectomy done emergently. After the procedure patient was kept intubated and he was transferred to the ICU. Patient now extubated, on nasal cannula. Remains in the ICU. Subjective: Patient seen and examined at bedside. No acute events overnight. Denies any significant abdominal pain. Denies any other complaints at the moment. Has a Art catheter in place, NG tube, and ostomy. Pertinent positives and negatives as discussed above, a complete review of systems was performed and all other systems are negative. Vitals Signs Reviewed. General: nontoxic, no distress, appears at stated age Derm: warm, dry, incisional site dry, clean, intact Head: atraumatic, normocephalic, symmetric Eyes: EOMI, no lid lag, anicteric sclera Mouth: no lip lesion, mucus membranes moist Cardiovascular: S1S2 reg, no murmur Lungs: CTA bilateral, no rhonchi, no rales , no accessory muscle use Abdominal: soft, nontender to palpation, no guarding, no appreciable organomegaly, ostomy, NG tube Ext: no gross muscle atrophy, no edema, no contractures Neuro: CN II-XI grossly intact, no focal neuro deficits Psych: Alert, oriented, appropriate affect Data Reviewed Today: Pertinent Labs: WBC 9.1, hemoglobin 10.9, sodium 141, creatinine 1.04 Imaging: No new imaging today Wound culture growing group B strep Assessment and Plan: Acute perforated diverticulitis with abscess Sigmoid colectomy with end colostomy on 08/02/2032 Sepsis on admission COPD on chronic prednisone, not in exacerbation Chronic hypoxemic respiratory failure on 2 L home O2 -Surgery and ID following -Wound cultures growing group B strep, patient currently on IV Zosyn 3.375 g every 8 hours -Blood cultures negative growth to date -Patient clinically improving -Continues to have NG tube in place -On TPN -Pulmonology following, patient on stress dose steroids at 50 mg IV hydrocortiso ne every 8 hours -Continue bronchodilators DVT ppx: Lovenox Code status: Full code Anticipated discharge place: Pending clinical course Anticipated discharge time: Pending clinical course Objective - Vital Signs Vital signs: Vital Signs Temp 98.1 F 08/04/22 08:00 Pulse 92 08/04/22 10:00 Resp 9 L 08/04/22 10:00 BP 142/79 08/04/22 10:00 Pulse Ox 95 08/04/22 10:00 FiO2 35 08/03/22 12:00 Intake & Output 08/03/22 08/04/22 08/04/22 18:59 06:59 18:59 Intake Total 6314.977 5992 520 Output Total 905 660 190 Balance 516.672 5493 330 Weight 59.421 kg 68.4 kg Intake: IV 1530 130 Lactated Ringers 1,000 ml 1100 100 @ 100 mls/hr IV .Q10H YOL[facility]DA Rx#:[id number] Mvi, Adult No.4 with Vit 330 30 K 10 ml Trace (Conc-1Ml/ Dose) 1 ml In Amino Acid 4.25%-D10w+Lytes*E* 1,000 ml @ 30 mls/hr IV .Q24H YOLANDA Rx#:[id number] Piperacillin-Tazobactam 3 100 .375 gm In Sodium Chloride 0.9% 100 ml @ 25 mls/hr IVPB Q8H YOLANDA Rx#: [id number] Intake, IV Titration 1716.442 130 390 Amount Amino Acid 4.25%-D10w+ 0 Lytes*E* 1,000 ml @ 75 mls/hr IV .BY DURATION YOLANAD Rx#:[id number] Lactated Ringers 1,000 ml 1200 100 300 @ 100 mls/hr IV .Q10H YOLANDA Rx#:[id number] Mvi, Adult No.4 with Vit 90 30 90 K 10 ml Trace (Conc-1Ml/ Dose) 1 ml In Amino Acid 4.25%-D10w+Lytes*E* 1,000 ml @ 30 mls/hr IV .Q24H YOLANDA Rx#:[id number] Mvi, Adult No.4 with Vit 0 K 10 ml Trace (Conc-1Ml/ Dose) 1 ml In Amino Acid 4.25%-D10w+Lytes*E* 1,000 ml @ 75 mls/hr IV .BY DURATION YOLANDA Rx#: [id number] Piperacillin-Tazobactam 3 100 .375 gm In Sodium Chloride 0.9% 100 ml @ 25 mls/hr IVPB Q8H YOL[facility]DA Rx#: [id number] Potassium Chloride 10 meq 200 In Water For Injection 1 100ml.bag @ 100 mls/hr IVPB Q1H YOLANDA Rx#: [id number] propofoL 1,000 mg In 126.442 Empty Bag 1 bag @ 15 MCG/ KG/MIN 5.348 mls/hr IV . [id number] YOLANDA Rx#:[id number] Oral 0 0 0 Tube Feeding 0 0 Output: Urine 905 560 190 Stool 100 Other: Voiding Method Indwelling Catheter Indwelling Catheter Indwelling Catheter - Labs CBC & Chem 7: 08/04/22 05:50 08/04/22 05:50 Labs: Abnormal Lab Results - Last 24 Hours (Table) 08/04/22 08/04/22 08/04/22 Range/Units 05:03 05:50 05:50 RBC 3.64 L (4.30-5.90) m/uL Hgb 10.9 L (13.0-17.5) gm/dL Hct 33.6 L (39.0-53.0) % Neutrophils # 8.5 H (1.3-7.7) k/uL Lymphocytes # 0.3 L (1.0-4.8) k/uL Carbon Dioxide 32 H (22-30) mmol/L Glucose 132 H (74-99) mg/dL POC Glucose (mg/dL) 137 H (70-110) mg/dL Calcium 8.0 L (8.4-10.2) mg/dL Microbiology - Last 24 Hours (Table) 07/29/22 10:06 Blood Culture - Final Blood 07/29/22 10:06 Blood Culture - Final Blood 08/02/22 21:47 Gram Stain - Preliminary Abdomen Wound Culture - Preliminary Strep agalactiae - (group b) 08/03/22 21:00 Sputum Culture - Preliminary Sputum 08/02/22 21:47 Anaerobic Culture - Preliminary Abdomen
--- NOTE | 2022-08-04 11:57 | P.PN ---
Subjective Progress Note Date: 08/04/22 Principal diagnosis: Sigmoid diverticulitis with perforation and abscess I was asked to evaluate this patient because of his advanced COPD and ongoing abdominal complications. The patient was seen in the emergency department. The patient is known to have diverticulosis he came in for an acute abdominal pain this morning. CAT scan of the abdomen was done and the patient was found to have acute sigmoid diverticulitis. This was a comp acute diverticulitis as perforation suspected and the patient had pockets of free intraperitoneal air measuring up to 5.5 cm in size. There is also trace lower abdominal ascites. No evidence of any abscess formation. Is also small bowel ileus. There is moderate size hiatal hernia also. The patient has a large prostate. Is known to have prostate cancer. The patient is also known to have advanced COPD. The patient is auction dependent. The patient is steroid dependent and is taking 10 mg of prednisone on a daily basis on outpatient basis. He has been followed up through our office. He has exertional dyspnea which is chronic in his significant limitation in exercise capacity because of his advanced COPD. No chest pain. No worsening shortness of breath. No swelling lower extremities. No previous history of DVT or pulmonary embolism. No nausea or emesis. No aspiration. GI surgeries on the case. Currently is on antibiotics. No plans for any surgery at this point in time. Blood work shows a WBC count of 18, he moglobin 13, normal cognition profile, BUN is 20 over the creatinine of 0.9. LFTs are normal. Lactic acid level is at 1.3. On today's evaluation of 07/30/2022, the patient's abdomen is less tender. The patient remains nothing by mouth. No worsening shortness of breath. The patient is on IV Zosyn. The patient is going to be treated conservatively. White cell count is at 14 with a hemoglobin of 11.1 and a platelet count of 245 noted the white cycles lower compared to yesterday. BUN is at 21 with a creatinine of 1.3. Sodium is at 143. Awake and alert and communicating. He remains on oxygen at 2 L/m nasal cannula. On 07/31/2022, the patient is doing well. No specific complaints. Abdominal pain is subsiding gradually. His COPD remains on IV Zosyn. No plans for any surgical intervention this point in time. The patient is known to have advanced COPD and the patient also has oxygen steroid dependent COPD and the patient is currently on hydrocortisone. IV fluids are in the form of D5 half-normal saline at rate of 100 mL an hour. The white cell count is down to 8.2 with hemoglobin 11.5 and a platelet count of 15. BUN is at 60 with a creatinine of 1 and his sodium level is at 137. The patient is seen today 08/01/2022 in follow-up on the regular medical floor. He is currently sitting up in bed. Awake and alert in no acute distress. Maintaining O2 saturations in the 90s on 2 L/m per nasal cannula. Currently on D5.45 normal saline at 100 ML's per hour. He is continued on Zosyn. His abdominal discomfort is gradually improving. Follow-up chest x-ray continues to show diffuse severe emphysematous changes with coarsened interstitium suspicious for chronic interstitial lung disease. Blood culture reveals no growth. White count 8.1. Hemoglobin 10.5. Platelets 225. Sodium 142. Potassium 3.9. Bicarb 26. BUN 11. Creatinine 1.0. Glucose 165. ProBNP 1500. Troponin negative 1. AST 12. ALT 13. Alk phos 39. Continued on DuoNeb inhalations. Lovenox for DVT prophylaxis. Remains on Solu-Cortef. The patient is seen today 08/02/2022 in follow-up on the regular medical floor. He is awake and alert in no acute distress. Resting fairly comfortably in bed. Maintaining good O2 saturations in the 90s on 2 L/m per nasal cannula. He is receiving D5 and half-normal saline at 100 ML's per hour. Remains on antibiotics in the form of Zosyn. Lovenox for DVT prophylaxis. Continued on Solu-Cortef. His abdominal discomfort is waxing and waning. A little more tender today. He remains nothing by mouth. Blood cultures revealed no growth. Blood glucose 151. Reevaluated today on 08/03/22, patient underwent sigmoid colectomy and end colostomy yesterday by Dr. Moyer mostly because of his sigmoid diverticulitis with perforation and abscess, patient came back to the ICU on mechanical ventilation. Remains intubated and mechanically ventilated. Patient is known to have severe end-stage COPD FEV1 is no more than 26%, however the benefits of the surgery obviously outweighed the risks. And surgery had to be done yesterday because the patient continued to have significant abdominal pain and tenderness. Patient is now on assist control rate of 16, volume 400 FiO2 50% and PEEP of 5, ABG showed a pO2 of 251 pCO2 42 pH of 7.45. His chest x-ray is showing minimal atelectasis, no infiltrate, no evidence of congestive heart failure, his electrolytes are normal renal profile is normal, CBC is relatively unremarkable. Hence I cut down his FiO2 to 35%, patient remains on enteral are at 100 mL an hour he is also on propofol at 50 mcg/kg/m, I have recommended stopping propofol, and was the patient is awake we will recommend checking weani ng parameters, and if reasonable proceed with a pressure support and CPAP with a pressure support of 10, follow-up ABG in 1 hour after being on pressure support and CPAP, and we will likely consider extubation later today. Reevaluated today on 08/04/2022, patient remains in the ICU, he is status post sigmoid colectomy and end colostomy with severe underlying COPD. FEV1 is in the range of 26%, surprisingly the patient is doing better than expected. Patient remains on 4 L nasal cannula with adequate O2 saturation, his ostomy is functioning well, remains on Zosyn, his also on TPN at 50 mL per hour. WBC count is 9.1 hemoglobin is 10.9. Basic metabolic profile is normal renal profile is normal. Chest x-ray yesterday showed minimal interstitial findings and COPD Objective - Vital Signs Vital signs: Vital Signs Temp 98.1 F 08/04/22 08:00 Pulse 98 08/04/22 11:00 Resp 15 08/04/22 11:00 BP 138/84 08/04/22 11:00 Pulse Ox 96 08/04/22 11:00 FiO2 35 08/03/22 12:00 Intake & Output 08/03/22 08/04/22 08/04/22 18:59 06:59 18:59 Intake Total 3319.785 5706 650 Output Total 905 660 250 Balance 430.727 0345 400 Weight 59.421 kg 68.4 kg Intake: IV 1530 130 Lactated Ringers 1,000 ml 1100 100 @ 100 mls/hr IV .Q10H [facility] Rx#:[id number] Mvi, Adult No.4 with Vit 330 30 K 10 ml Trace (Conc-1Ml/ Dose) 1 ml In Amino Acid 4.25%-D10w+Lytes*E* 1,000 ml @ 30 mls/hr IV .Q24H [facility] Rx#:[id number] Piperacillin-Tazobactam 3 100 .375 gm In Sodium Chloride 0.9% 100 ml @ 25 mls/hr IVPB Q8H [facility] Rx#: [id number] Intake, IV Titration 1716.442 130 520 Amount Amino Acid 4.25%-D10w+ 0 Lytes*E* 1,000 ml @ 75 mls/hr IV .BY DURATION [facility] Rx#:[id number] Lactated Ringers 1,000 ml 1200 100 400 @ 100 mls/hr IV .Q10H [facility] Rx#:[id number] Mvi, Adult No.4 with Vit 90 30 120 K 10 ml Trace (Conc-1Ml/ Dose) 1 ml In Amino Acid 4.25%-D10w+Lytes*E* 1,000 ml @ 30 mls/hr IV .Q24H [facility] Rx#:[id number] Mvi, Adult No.4 with Vit 0 K 10 ml Trace (Conc-1Ml/ Dose) 1 ml In Amino Acid 4.25%-D10w+Lytes*E* 1,000 ml @ 75 mls/hr IV .BY DURATION [facility] Rx#: [id number] Piperacillin-Tazobactam 3 100 .375 gm In Sodium Chloride 0.9% 100 ml @ 25 mls/hr IVPB Q8H [facility] Rx#: [id number] Potassium Chloride 10 meq 200 In Water For Injection 1 100ml.bag @ 100 mls/hr IVPB Q1H [facility] Rx#: [id number] propofoL 1,000 mg In 126.442 Empty Bag 1 bag @ 15 MCG/ KG/MIN 5.348 mls/hr IV . [id number] [facility] Rx#:[id number] Oral 0 0 0 Tube Feeding 0 0 Output: Urine 905 560 250 Stool 100 Other: Voiding Method Indwelling Catheter Indwelling Catheter Indwelling Catheter - Exam Physical Exam: Revealed a 72-year-old white male in no distress on 4 L nasal cannula Head: Atraumatic normocephalic. HEENT:[Neck is supple.] [No neck masses.] [No thyromegaly.] [No JVD.] Endotracheal tube and nasogastric tube are intact. Chest: [Symmetrical chest expansion, diminished breath sound bilaterally no crackles or rhonchi or wheezes Cardiac Exam: [Normal S1 and S2, no S3 gallop, no murmur.] Abdomen: Postsurgical, soft, colostomy seems to be intact. Extremities: [No clubbing, no edema, no cyanosis.] Neurological Exam: Alert and oriented 3 no Focal deficits Psychiatric: Normal mood affect and normal mental status examination. - Labs CBC & Chem 7: 08/04/22 05:50 08/04/22 05:50 Labs: Abnormal Lab Results - Last 24 Hours (Table) 08/04/22 08/04/22 08/04/22 Range/Units 05:03 05:50 05:50 RBC 3.64 L (4.30-5.90) m/uL Hgb 10.9 L (13.0-17.5) gm/dL Hct 33.6 L (39.0-53.0) % Neutrophils # 8.5 H (1.3-7.7) k/uL Lymphocytes # 0.3 L (1.0-4.8) k/uL Carbon Dioxide 32 H (22-30) mmol/L Glucose 132 H (74-99) mg/dL POC Glucose (mg/dL) 137 H (70-110) mg/dL Calcium 8.0 L (8.4-10.2) mg/dL Microbiology - Last 24 Hours (Table) 07/29/22 10:06 Blood Culture - Final Blood 07/29/22 10:06 Blood Culture - Final Blood 08/02/22 21:47 Gram Stain - Preliminary Abdomen Wound Culture - Preliminary Strep agalactiae - (group b) 08/03/22 21:00 Sputum Culture - Preliminary Sputum 08/02/22 21:47 Anaerobic Culture - Preliminary Abdomen Assessment and Plan Assessment: Impression: Acute perforated sigmoid diverticulitis with abscess, status post sigmoid colectomy and end colostomy postoperative day #2 Severe underlying COPD, extubated on 01/03/2023, tolerated the extubation well Chronic hypoxic with shortness failure, patient is normally on oxygen at home History of diverticulosis Ex-smoker, quit smoking 2 years ago History of prostate cancer History of underlying GERD Recent hospitalization for acute COPD exacerbation back in June Recommendation: Continue to monitor in the ICU for the next 24 hours Continue oxygen and titrate accordingly Continue bronchodilators Continue GI and DVT prophylaxis. Continue TPN until patient could be started on oral diet. Change hydrocortisone to 25 mg IV push every 8 hours, and eventually transitioned to oral prednisone once patient could be started on oral meds Prognosis remains relatively guarded. We will continue to follow Time with Patient: Less than 30
--- NOTE | 2022-08-04 14:36 | P.PN ---
Subjective Progress Note Date: 08/04/22 Principal diagnosis: Perforated diverticulitis and peritonitis Patient is a 72-year-old male presenting to the hospital abdominal pain has been diagnosed with acute diverticulitis with perforation treated medically did not have improvement subsequently was taken to the OR on 08/02/2022 and the patient is status post laparotomy; colectomy and diverting colostomy. On today's evaluation that is 08/04/2022, the patient is afebrile the patient has been extubated currently breathing comfortably for lesion is a patient denies having any chest pain or shortness of the occasional cough abdominal pain is currently controlled no nausea no vomiting Objective - Vital Signs Vital signs: Vital Signs Temp 98.1 F 08/04/22 08:00 Pulse 98 08/04/22 11:00 Resp 15 08/04/22 11:00 BP 138/84 08/04/22 11:00 Pulse Ox 96 08/04/22 11:00 FiO2 35 08/03/22 12:00 Intake & Output 08/03/22 08/04/22 08/04/22 18:59 06:59 18:59 Intake Total 8246.657 1752 650 Output Total 905 660 250 Balance 081.696 3302 400 Weight 59.421 kg 68.4 kg Intake: IV 1530 130 Lactated Ringers 1,000 ml 1100 100 @ 100 mls/hr IV .Q10H [facility] Rx#:[id number] Mvi, Adult No.4 with Vit 330 30 K 10 ml Trace (Conc-1Ml/ Dose) 1 ml In Amino Acid 4.25%-D10w+Lytes*E* 1,000 ml @ 30 mls/hr IV .Q24H [facility] Rx#:[id number] Piperacillin-Tazobactam 3 100 .375 gm In Sodium Chloride 0.9% 100 ml @ 25 mls/hr IVPB Q8H [facility] Rx#: [id number] Intake, IV Titration 1716.442 130 520 Amount Amino Acid 4.25%-D10w+ 0 Lytes*E* 1,000 ml @ 75 mls/hr IV .BY DURATION [facility] Rx#:[id number] Lactated Ringers 1,000 ml 1200 100 400 @ 100 mls/hr IV .Q10H [facility] Rx#:[id number] Mvi, Adult No.4 with Vit 90 30 120 K 10 ml Trace (Conc-1Ml/ Dose) 1 ml In Amino Acid 4.25%-D10w+Lytes*E* 1,000 ml @ 30 mls/hr IV .Q24H [facility] Rx#:[id number] Mvi, Adult No.4 with Vit 0 K 10 ml Trace (Conc-1Ml/ Dose) 1 ml In Amino Acid 4.25%-D10w+Lytes*E* 1,000 ml @ 75 mls/hr IV .BY DURATION [facility] Rx#: [id number] Piperacillin-Tazobactam 3 100 .375 gm In Sodium Chloride 0.9% 100 ml @ 25 mls/hr IVPB Q8H [facility] Rx#: [id number] Potassium Chloride 10 meq 200 In Water For Injection 1 100ml.bag @ 100 mls/hr IVPB Q1H [facility] Rx#: [id number] propofoL 1,000 mg In 126.442 Empty Bag 1 bag @ 15 MCG/ KG/MIN 5.348 mls/hr IV . [id number] [facility] Rx#:[id number] Oral 0 0 0 Tube Feeding 0 0 Output: Urine 905 560 250 Stool 100 Other: Voiding Method Indwelling Catheter Indwelling Catheter Indwelling Catheter - Exam GENERAL DESCRIPTION: An elderly male up in the chair in no distress RESPIRATORY SYSTEM: Unlabored breathing , decreased breath sounds at bases HEART: S1 S2 regular rate and rhythm , ABDOMEN: Soft , no tenderness EXTREMITIES: No edema feet - Labs CBC & Chem 7: 08/04/22 05:50 08/04/22 05:50 Labs: Abnormal Lab Results - Last 24 Hours (Table) 08/04/22 08/04/22 08/04/22 Range/Units 05:03 05:50 05:50 RBC 3.64 L (4.30-5.90) m/uL Hgb 10.9 L (13.0-17.5) gm/dL Hct 33.6 L (39.0-53.0) % Neutrophils # 8.5 H (1.3-7.7) k/uL Lymphocytes # 0.3 L (1.0-4.8) k/uL Carbon Dioxide 32 H (22-30) mmol/L Glucose 132 H (74-99) mg/dL POC Glucose (mg/dL) 137 H (70-110) mg/dL Calcium 8.0 L (8.4-10.2) mg/dL Microbiology - Last 24 Hours (Table) 07/29/22 10:06 Blood Culture - Final Blood 07/29/22 10:06 Blood Culture - Final Blood 08/02/22 21:47 Gram Stain - Preliminary Abdomen Wound Culture - Preliminary Strep agalactiae - (group b) 08/03/22 21:00 Sputum Culture - Preliminary Sputum 08/02/22 21:47 Anaerobic Culture - Preliminary Abdomen Assessment and Plan (1) Diverticulitis of colon with perforation Current Visit: Yes Status: Acute Code(s): K57.20 - DVTRCLI OF LG INT W PERFORATION AND ABSCESS W/O BLEEDING SNOMED Code(s): 89747974 Plan: 1patient was in the hospital with abdominal pain has been diagnosed with a complicated diverticulitis failing medical therapy and the patient subsequently status post laparotomy sigmoid colectomy and diverting colostomy with concern f or secondary peritonitis from perforated sigmoid diverticulitis and need to cover for enteric gram-negative both aerobes and anaerobes 2-patient abdominal cultures are currently pending 3-patient to continue with the Zosyn and monitor his clinical course closely at the bedside questions concerns answered Time with Patient: Less than 30
--- NOTE | 2022-08-04 15:09 | P.PN ---
Subjective Progress Note Date: 08/04/22 CHIEF COMPLAINT: Perforated diverticulitis HISTORY OF PRESENT ILLNESS: Patient is postop day #2 status post sigmoid colectomy with end colostomy for perforated diverticulitis with abscess. Patient was extubated yesterday. He is on 4L nasal cannula. He is sitting up in bed. He reports his pain is controlled. Denies any nausea. NG tube in place this morning with dark output. He is on TPN for nutrition support. Afebrile. WBC is 9.1 Hgb is 10.9 Yesterday patient had increased abdominal pain after liquid diet. He had a repeat computed tomography scan completed that had shown new free air is present suggesting diverticular perforation. It was then decided by Dr. Meadows the patient would need surgery. Patient is currently intubated and on mechanical ventilation. The plans are to possibly extubate patient later today. Afebrile. Mildly tachycardic. WBC 11.2 hgb 12.1 platelets 258 7139 potassium 3.8 creatinine 0.94 urine output adequate Patient seen and examined with Dr. meadows PHYSICAL EXAM: VITAL SIGNS: Reviewed. GENERAL: Well-developed in no acute distress. HEENT: No sclera icterus. Extraocular movements grossly intact. Moist buccal mucosa. Head is atraumatic, normocephalic. ABDOMEN: Soft. Mildly distended. Ostomy on the left. Evidence of blood in the ostomy bag. No stool. NEUROLOGIC: Alert and oriented. Cranial nerves II through XII grossly intact. ASSESSMENT: 1. Perforated diverticulitis with abscess status post sigmoid colectomy with end colostomy 2. History of COPD PLAN: -Discontinue NG tube -Continue ICU management -Continue supportive care -Continue antibiotics per infectious disease -Continue IV fluids -Continue TPN for nutrition support -DVT prophylaxis Lovenox and GI prophylaxis Protonix [employer] Former note has been reviewed by physician. Signing provider agrees with the documented findings, assessment, and plan of care. Objective - Vital Signs Vital signs: Vital Signs Temp 98.4 F 08/04/22 12:00 Pulse 80 08/04/22 13:35 Resp 15 08/04/22 13:30 BP 133/74 08/04/22 13:30 Pulse Ox 100 08/04/22 13:30 FiO2 35 08/03/22 12:00 Intake & Output 08/03/22 08/04/2223 18:59 06:59 18:59 Intake Total 9623.203 6242 1010 Output Total 905 660 370 Balance 769.608 9482 640 Weight 59.421 kg 68.4 kg Intake: IV 1530 230 Lactated Ringers 1,000 ml 1100 100 @ 100 mls/hr IV .Q10H [facility] Rx#:[id number] Mvi, Adult No.4 with Vit 330 30 K 10 ml Trace (Conc-1Ml/ Dose) 1 ml In Amino Acid 4.25%-D10w+Lytes*E* 1,000 ml @ 30 mls/hr IV .Q24H [facility] Rx#:[id number] Piperacillin-Tazobactam 3 100 100 .375 gm In Sodium Chloride 0.9% 100 ml @ 25 mls/hr IVPB Q8H [facility] Rx#: [id number] Intake, IV Titration 1716.442 130 780 Amount Amino Acid 4.25%-D10w+ 0 Lytes*E* 1,000 ml @ 75 mls/hr IV .BY DURATION [facility] Rx#:[id number] Lactated Ringers 1,000 ml 1200 100 600 @ 100 mls/hr IV .Q10H [facility] Rx#:[id number] Mvi, Adult No.4 with Vit 90 30 180 K 10 ml Trace (Conc-1Ml/ Dose) 1 ml In Amino Acid 4.25%-D10w+Lytes*E* 1,000 ml @ 30 mls/hr IV .Q24H [facility] Rx#:[id number] Mvi, Adult No.4 with Vit 0 K 10 ml Trace (Conc-1Ml/ Dose) 1 ml In Amino Acid 4.25%-D10w+Lytes*E* 1,000 ml @ 75 mls/hr IV .BY DURATION [facility] Rx#: [id number] Piperacillin-Tazobactam 3 100 .375 gm In Sodium Chloride 0.9% 100 ml @ 25 mls/hr IVPB Q8H [facility] Rx#: [id number] Potassium Chloride 10 meq 200 In Water For Injection 1 100ml.bag @ 100 mls/hr IVPB Q1H [facility] Rx#: [id number] propofoL 1,000 mg In 126.442 Empty Bag 1 bag @ 15 MCG/ KG/MIN 5.348 mls/hr IV . [id number] [facility] Rx#:[id number] Oral 0 0 0 Tube Feeding 0 0 Output: Urine 905 560 370 Stool 100 Other: Voiding Method Indwelling Catheter Indwelling Catheter Indwelling Catheter - Labs CBC & Chem 7: 08/04/22 05:50 08/04/22 05:50 Labs: Abnormal Lab Results - Last 24 Hours (Table) 08/04/22 08/04/22 08/04/22 Range/Units 05:03 05:50 05:50 RBC 3.64 L (4.30-5.90) m/uL Hgb 10.9 L (13.0-17.5) gm/dL Hct 33.6 L (39.0-53.0) % Neutrophils # 8.5 H (1.3-7.7) k/uL Lymphocytes # 0.3 L (1.0-4.8) k/uL Carbon Dioxide 32 H (22-30) mmol/L Glucose 132 H (74-99) mg/dL POC Glucose (mg/dL) 137 H (70-110) mg/dL Calcium 8.0 L (8.4-10.2) mg/dL Microbiology - Last 24 Hours (Table) 07/29/22 10:06 Blood Culture - Final Blood 07/29/22 10:06 Blood Culture - Final Blood 08/02/22 21:47 Gram Stain - Preliminary Abdomen Wound Culture - Preliminary Strep agalactiae - (group b) 08/03/22 21:00 Sputum Culture - Preliminary Sputum
[2022-08-04] MEDS: 1: AMINO ACID 4.25%-D10W+LYTES*E* 1,000 ML 2: MVI, ADULT NO.4 WITH VIT K 10 ML, TRACE ( IV SCH ×3 (16:22)
[2022-08-04] MEDS: HYDROmorphone 1 MG/ML 1 ML SYRINGE IVP PRN (16:23)
[2022-08-05] MEDS: HYDROCORTISONE SUCCINATE 100 MG/2 ML VIAL IV SCH ×4 (00:31→23:40)
[2022-08-05] MEDS: PIPERACILLIN-TAZOBACTAM 3.375 GM in SODIUM CHLORIDE 0.9% 100 ML IVPB SCH ×3 (04:35→19:52)
[2022-08-05] MEDS: HYDROmorphone 1 MG/ML 1 ML SYRINGE IVP PRN ×2 (04:36→21:49)
[2022-08-05] MEDS: LACTATED RINGERS 1,000 ML IV SCH ×3 (04:36→19:52)
[2022-08-05 04:42] LABS: Basophils % (A) 0 %; Eosinophils % (A) 0 %; HCT 28.2 % (39.0-53.0); Lymphocytes # (A) 0.4 k/uL (1.0-4.8); Lymphocytes % (A) 5 %; MCH 30.3 pg (25.0-35.0); MCHC 33.1 g/dL (31.0-37.0); MCV 91.6 fL (80.0-100.0); Mean Platelet Volume 7.8; Monocytes # (A) 0.3 k/uL (0-1.0); Monocytes % (A) 4 %; Neutrophils # (A) 6.5 k/uL (1.3-7.7); Neutrophils % (A) 90 %; Platelet Count 232 k/uL (150-450); RBC 3.08 m/uL (4.30-5.90); RDW 13.6 % (11.5-15.5); WBC 7.2 k/uL (3.8-10.6)
[2022-08-05 04:53] LABS: African American GFR (CKD) >90 (>60 ml/min/1.73 sqM); Anion Gap 0 mmol/L; Blood Urea Nitrogen 22 mg/dL (9-20); Calcium 7.7 mg/dL (8.4-10.2); Carbon Dioxide 33 mmol/L (22-30); Chloride 106 mmol/L (98-107); Glucose 150 mg/dL (74-99); Magnesium 2.1 mg/dL (1.6-2.3); Non-African American GFR(CKD) 81 (>60 ml/min/1.73 sqM); Phosphorus 2.9 mg/dL (2.5-4.5); Potassium 3.7 mmol/L (3.5-5.1); Sodium 139 mmol/L (137-145)
[2022-08-05 05:28] LABS: HGB 9.3 gm/dL (13.0-17.5)
[2022-08-05] MEDS: 1: AMINO ACID 4.25%-D10W+LYTES*E* 1,000 ML 2: MVI, ADULT NO.4 WITH VIT K 10 ML, TRACE ( IV SCH ×6 (06:17→18:10)
[2022-08-05] MEDS: POTASSIUM CHLORIDE 10 MEQ in WATER FOR INJECTION 1 100ML.BAG IVPB SCH ×2 (06:54→08:12)
[2022-08-05] MEDS: ENOXAPARIN 40 MG/0.4 ML SYRINGE SQ SCH (08:12)
[2022-08-05] MEDS: PANTOPRAZOLE 40 MG/10 ML VIAL IV SCH (08:12)
[2022-08-05] MEDS: FORMOTEROL FUMARATE 20 MCG/2 ML NEBU INHALATION SCH ×2 (08:53→21:05)
[2022-08-05] MEDS: BUDESONIDE 1 MG/2 ML NEBU INHALATION SCH ×2 (08:53→21:05)
[2022-08-05] MEDS: IPRATROPIUM-ALBUTEROL 3 ML NEB INHALATION SCH ×4 (08:53→21:05)
[2022-08-05] MEDS: HYDROmorphone 0.5 MG/0.5 ML SYRINGE IVP PRN ×3 (09:45→18:18)
--- NOTE | 2022-08-05 10:54 | P.PN ---
Subjective Progress Note Date: 08/05/22 Hospital Course: 72-year-old male with a past medical history of COPD home oxygen dependent on 3 L at all times, diverticulosis and GERD. He presented to the emergency department with a chief complaint of abdominal pain. CBC showing severe leukocytosis with WBC count of 18.7 with left shift with neutrophils of 17.1. BMP revealing mild prerenal azotemia with BUN of 21. Glucose was 132 and lactic acid was 1.3. Liver profile unremarkable. Troponin less than 0.012. Urinalysis was negative for infection. Covid PCR was negative. EKG was completed showing normal sinus rhythm and 99 bpm with no noted T-wave or ST abnormalities showing no signs of acute ischemia on personal review and interpretation. Chest x-ray showing COPD changes but negative for acute cardiopulmonary process. CT abdomen and pelvis exam positive for acute sigmoid diverticulitis complicated by perforation and pockets of free intraperitoneal air measuring up to 5.5 cm accompanied by trace lower abdominal ascites, secondary small bowel ileus, small to moderate sized hiatal hernia, mild circumferential distal esophageal wall thickening, and prostamegaly with prostate measurement of 5.2 cm wide. Patient was admitted under Gen. surgery team and sound physicians consulted for medical management throughout hospitalization. Computed tomography scan showed diverticular perforation. So patient that had sigmoidectomy done emergently. After the procedure patient was kept intubated and he was transferred to the ICU. Patient now extubated, on nasal cannula. Remains in the ICU. Possibly a downgrade today Subjective: Patient seen and examined at bedside. No acute events overnight. Denies any si gnificant abdominal pain. Denies any other complaints at the moment. Has a Art catheter in place, and ostomy. NG tube has been discontinued Pertinent positives and negatives as discussed above, a complete review of systems was performed and all other systems are negative. Vitals Signs Reviewed. General: nontoxic, no distress, appears at stated age Derm: warm, dry, incisional site dry, clean, intact Head: atraumatic, normocephalic, symmetric Eyes: EOMI, no lid lag, anicteric sclera Mouth: no lip lesion, mucus membranes moist Cardiovascular: S1S2 reg, no murmur Lungs: CTA bilateral, no rhonchi, no rales , no accessory muscle use Abdominal: soft, nontender to palpation, no guarding, no appreciable organomegaly, ostomy Ext: no gross muscle atrophy, no edema, no contractures Neuro: CN II-XI grossly intact, no focal neuro deficits Psych: Alert, oriented, appropriate affect Data Reviewed Today: Pertinent Labs: WBC 7.2, hemoglobin 9.3, sodium 139, bicarbonate 33, creatinine 0.94, magnesium 2.1 Imaging: No new imaging today Wound culture growing group B strep Assessment and Plan: Acute perforated diverticulitis with abscess Sigmoid colectomy with end colostomy on 08/02/2032 Sepsis on admission Acute normocytic anemia COPD on chronic prednisone, not in exacerbation Chronic hypoxemic respiratory failure on 2 L home O2 -Surgery and ID following -Wound cultures growing group B strep, patient currently on IV Zosyn 3.375 g every 8 hours -Blood cultures negative growth to date -Patient clinically improving -TPN discontinued -Pulmonology following, patient on stress dose steroids, decreased to 25 mg IV hydrocortisone every 8 hours -Continue bronchodilators -Iron studies pending DVT ppx: Lovenox Code status: Full code Anticipated discharge place: Pending clinical course Anticipated discharge time: Pending clinical course Objective - Vital Signs Vital signs: Vital Signs Temp 98.2 F 08/05/22 08:00 Pulse 81 08/05/22 10:00 Resp 13 08/05/22 10:00 BP 143/80 08/05/22 10:00 Pulse Ox 95 08/05/22 10:00 FiO2 35 08/03/22 12:00 Intake & Output 08/04/22 08/05/22 08/05/22 18:59 06:59 18:59 Intake Total 1925 3125 700 Output Total 675 535 165 Balance 1250 2590 535 Weight 69 kg Intake: IV 230 2125 700 Lactated Ringers 1,000 ml 100 1100 200 @ 100 mls/hr IV .Q10H [facility] Rx#:[id number] Mvi, Adult No.4 with Vit 30 K 10 ml Trace (Conc-1Ml/ Dose) 1 ml In Amino Acid 4.25%-D10w+Lytes*E* 1,000 ml @ 30 mls/hr IV .Q24H [facility] Rx#:[id number] Mvi, Adult No.4 with Vit 825 300 K 10 ml Trace (Conc-1Ml/ Dose) 1 ml In Amino Acid 4.25%-D10w+Lytes*E* 1,000 ml @ 75 mls/hr IV .BY DURATION [facility] Rx#: [id number] Piperacillin-Tazobactam 3 100 200 .375 gm In Sodium Chloride 0.9% 100 ml @ 25 mls/hr IVPB Q8H [facility] Rx#: [id number] Potassium Chloride 10 meq 200 In Water For Injection 1 100ml.bag @ 100 mls/hr IVPB Q1H [facility] Rx#: [id number] Intake, IV Titration 1695 1000 Amount Amino Acid 4.25%-D10w+ 225 1000 Lytes*E* 1,000 ml @ 75 mls/hr IV .BY DURATION [facility] Rx#:[id number] Lactated Ringers 1,000 ml 1200 @ 100 mls/hr IV .Q10H [facility] Rx#:[id number] Mvi, Adult No.4 with Vit 270 K 10 ml Trace (Conc-1Ml/ Dose) 1 ml In Amino Acid 4.25%-D10w+Lytes*E* 1,000 ml @ 30 mls/hr IV .Q24H [facility] Rx#:[id number] Oral 0 Tube Feeding 0 Output: Urine 675 535 165 Other: Voiding Method Indwelling Catheter Indwelling Catheter Indwelling Catheter - Labs CBC & Chem 7: 08/05/22 04:30 08/05/22 04:30 Labs: Abnormal Lab Results - Last 24 Hours (Table) 08/05/22 08/05/22 Range/Units 04:30 04:30 RBC 3.08 L (4.30-5.90) m/uL Hgb 9.3 L D (13.0-17.5) gm/dL Hct 28.2 L (39.0-53.0) % Lymphocytes # 0.4 L (1.0-4.8) k/uL Carbon Dioxide 33 H (22-30) mmol/L BUN 22 H (9-20) mg/dL Glucose 150 H (74-99) mg/dL Calcium 7.7 L (8.4-10.2) mg/dL Microbiology - Last 24 Hours (Table) 08/02/22 21:47 Gram Stain - Final Abdomen Wound Culture - Final Strep agalactiae - (group b) 08/03/22 21:00 Gram Stain - Preliminary Sputum Sputum Culture - Preliminary 07/29/22 10:06 Blood Culture - Final Blood 07/29/22 10:06 Blood Culture - Final Blood
[2022-08-05 11:54] LABS: Glucose,Whole Blood 145 mg/dL (70-110)
--- NOTE | 2022-08-05 13:00 | P.PN ---
Subjective Progress Note Date: 08/05/22 Principal diagnosis: Sigmoid diverticulitis with perforation and abscess I was asked to evaluate this patient because of his advanced COPD and ongoing abdominal complications. The patient was seen in the emergency department. The patient is known to have diverticulosis he came in for an acute abdominal pain this morning. CAT scan of the abdomen was done and the patient was found to have acute sigmoid diverticulitis. This was a comp acute diverticulitis as perforation suspected and the patient had pockets of free intraperitoneal air measuring up to 5.5 cm in size. There is also trace lower abdominal ascites. No evidence of any abscess formation. Is also small bowel ileus. There is moderate size hiatal hernia also. The patient has a large prostate. Is known to have prostate cancer. The patient is also known to have advanced COPD. The patient is auction dependent. The patient is steroid dependent and is taking 10 mg of prednisone on a daily basis on outpatient basis. He has been followed up through our office. He has exertional dyspnea which is chronic in his significant limitation in exercise capacity because of his advanced COPD. No chest pain. No worsening shortness of breath. No swelling lower extremities. No previous history of DVT or pulmonary embolism. No nausea or emesis. No aspiration. GI surgeries on the case. Currently is on antibiotics. No plans for any surgery at this point in time. Blood work shows a WBC count of 18, he moglobin 13, normal cognition profile, BUN is 20 over the creatinine of 0.9. LFTs are normal. Lactic acid level is at 1.3. On today's evaluation of 07/30/2022, the patient's abdomen is less tender. The patient remains nothing by mouth. No worsening shortness of breath. The patient is on IV Zosyn. The patient is going to be treated conservatively. White cell count is at 14 with a hemoglobin of 11.1 and a platelet count of 245 noted the white cycles lower compared to yesterday. BUN is at 21 with a creatinine of 1.3. Sodium is at 143. Awake and alert and communicating. He remains on oxygen at 2 L/m nasal cannula. On 07/31/2022, the patient is doing well. No specific complaints. Abdominal pain is subsiding gradually. His COPD remains on IV Zosyn. No plans for any surgical intervention this point in time. The patient is known to have advanced COPD and the patient also has oxygen steroid dependent COPD and the patient is currently on hydrocortisone. IV fluids are in the form of D5 half-normal saline at rate of 100 mL an hour. The white cell count is down to 8.2 with hemoglobin 11.5 and a platelet count of 15. BUN is at 60 with a creatinine of 1 and his sodium level is at 137. The patient is seen today 08/01/2022 in follow-up on the regular medical floor. He is currently sitting up in bed. Awake and alert in no acute distress. Maintaining O2 saturations in the 90s on 2 L/m per nasal cannula. Currently on D5.45 normal saline at 100 ML's per hour. He is continued on Zosyn. His abdominal discomfort is gradually improving. Follow-up chest x-ray continues to show diffuse severe emphysematous changes with coarsened interstitium suspicious for chronic interstitial lung disease. Blood culture reveals no growth. White count 8.1. Hemoglobin 10.5. Platelets 225. Sodium 142. Potassium 3.9. Bicarb 26. BUN 11. Creatinine 1.0. Glucose 165. ProBNP 1500. Troponin negative 1. AST 12. ALT 13. Alk phos 39. Continued on DuoNeb inhalations. Lovenox for DVT prophylaxis. Remains on Solu-Cortef. The patient is seen today 08/02/2022 in follow-up on the regular medical floor. He is awake and alert in no acute distress. Resting fairly comfortably in bed. Maintaining good O2 saturations in the 90s on 2 L/m per nasal cannula. He is receiving D5 and half-normal saline at 100 ML's per hour. Remains on antibiotics in the form of Zosyn. Lovenox for DVT prophylaxis. Continued on Solu-Cortef. His abdominal discomfort is waxing and waning. A little more tender today. He remains nothing by mouth. Blood cultures revealed no growth. Blood glucose 151. Reevaluated today on 08/03/22, patient underwent sigmoid colectomy and end colostomy yesterday by Dr. Moyer mostly because of his sigmoid diverticulitis with perforation and abscess, patient came back to the ICU on mechanical ventilation. Remains intubated and mechanically ventilated. Patient is known to have severe end-stage COPD FEV1 is no more than 26%, however the benefits of the surgery obviously outweighed the risks. And surgery had to be done yesterday because the patient continued to have significant abdominal pain and tenderness. Patient is now on assist control rate of 16, volume 400 FiO2 50% and PEEP of 5, ABG showed a pO2 of 251 pCO2 42 pH of 7.45. His chest x-ray is showing minimal atelectasis, no infiltrate, no evidence of congestive heart failure, his electrolytes are normal renal profile is normal, CBC is relatively unremarkable. Hence I cut down his FiO2 to 35%, patient remains on enteral are at 100 mL an hour he is also on propofol at 50 mcg/kg/m, I have recommended stopping propofol, and was the patient is awake we will recommend checking weani ng parameters, and if reasonable proceed with a pressure support and CPAP with a pressure support of 10, follow-up ABG in 1 hour after being on pressure support and CPAP, and we will likely consider extubation later today. Reevaluated today on 08/04/2022, patient remains in the ICU, he is status post sigmoid colectomy and end colostomy with severe underlying COPD. FEV1 is in the range of 26%, surprisingly the patient is doing better than expected. Patient remains on 4 L nasal cannula with adequate O2 saturation, his ostomy is functioning well, remains on Zosyn, his also on TPN at 50 mL per hour. WBC count is 9.1 hemoglobin is 10.9. Basic metabolic profile is normal renal profile is normal. Chest x-ray yesterday showed minimal interstitial findings and COPD Reevaluated today on 08/05/2022, patient remains in the ICU, doing well, relatively asymptomatic, his ostomy is functioning well, pulmonary status is relatively stable in spite of its severity patient denies any abdominal pain, no shortness of breath, his labs were relatively normal including normal CBC and normal electrolytes normal renal profile hence I will transfer the patient out of the ICU to a regular medical floor. Objective - Vital Signs Vital signs: Vital Signs Temp 98.2 F 08/05/22 08:00 Pulse 92 08/05/22 12:25 Resp 16 08/05/22 12:00 BP 119/70 08/05/22 12:00 Pulse Ox 94 L 08/05/22 12:00 FiO2 35 08/03/22 12:00 Intake & Output 08/04/22 08/05/22 08/05/22 18:59 06:59 18:59 Intake Total 1925 3125 900 Output Total 675 535 250 Balance 1250 2590 650 Weight 69 kg Intake: IV 230 2125 900 Lactated Ringers 1,000 ml 100 1100 300 @ 100 mls/hr IV .Q10H [facility] Rx#:[id number] Mvi, Adult No.4 with Vit 30 K 10 ml Trace (Conc-1Ml/ Dose) 1 ml In Amino Acid 4.25%-D10w+Lytes*E* 1,000 ml @ 30 mls/hr IV .Q24H [facility] Rx#:[id number] Mvi, Adult No.4 with Vit 825 375 K 10 ml Trace (Conc-1Ml/ Dose) 1 ml In Amino Acid 4.25%-D10w+Lytes*E* 1,000 ml @ 75 mls/hr IV .BY DURATION [facility] Rx#: [id number] Piperacillin-Tazobactam 3 100 200 25 .375 gm In Sodium Chloride 0.9% 100 ml @ 25 mls/hr IVPB Q8H [facility] Rx#: [id number] Potassium Chloride 10 meq 200 In Water For Injection 1 100ml.bag @ 100 mls/hr IVPB Q1H [facility] Rx#: [id number] Intake, IV Titration 1695 1000 Amount Amino Acid 4.25%-D10w+ 225 1000 Lytes*E* 1,000 ml @ 75 mls/hr IV .BY DURATION [facility] Rx#:[id number] Lactated Ringers 1,000 ml 1200 @ 100 mls/hr IV .Q10H [facility] Rx#:[id number] Mvi, Adult No.4 with Vit 270 K 10 ml Trace (Conc-1Ml/ Dose) 1 ml In Amino Acid 4.25%-D10w+Lytes*E* 1,000 ml @ 30 mls/hr IV .Q24H [facility] Rx#:[id number] Oral 0 Tube Feeding 0 Output: Urine 675 535 250 Other: Voiding Method Indwelling Catheter Indwelling Catheter Indwelling Catheter - Exam Physical Exam: Revealed a 72-year-old white male in no distress on 4 L nasal cannula Head: Atraumatic normocephalic. HEENT:[Neck is supple.] [No neck masses.] [No thyromegaly.] [No JVD.] Endotracheal tube and nasogastric tube are intact. Chest: [Symmetrical chest expansion, diminished breath sound bilaterally no crackles or rhonchi or wheezes Cardiac Exam: [Normal S1 and S2, no S3 gallop, no murmur.] Abdomen: Postsurgical, soft, colostomy seems to be intact. Colostomy is functional. Extremities: [No clubbing, no edema, no cyanosis.] Neurological Exam: Alert and oriented 3 no Focal deficits Psychiatric: Normal mood affect and normal mental status examination. - Labs CBC & Chem 7: 08/05/22 04:30 08/05/22 04:30 Labs: Abnormal Lab Results - Last 24 Hours (Table) 08/05/22 08/05/22 08/05/22 Range/Units 04:30 04:30 11:52 RBC 3.08 L (4.30-5.90) m/uL Hgb 9.3 L D (13.0-17.5) gm/dL Hct 28.2 L (39.0-53.0) % Lymphocytes # 0.4 L (1.0-4.8) k/uL Carbon Dioxide 33 H (22-30) mmol/L BUN 22 H (9-20) mg/dL Glucose 150 H (74-99) mg/dL POC Glucose (mg/dL) 145 H (70-110) mg/dL Calcium 7.7 L (8.4-10.2) mg/dL Microbiology - Last 24 Hours (Table) 08/02/22 21:47 Gram Stain - Final Abdomen Wound Culture - Final Strep agalactiae - (group b) 08/03/22 21:00 Gram Stain - Preliminary Sputum Sputum Culture - Preliminary 07/29/22 10:06 Blood Culture - Final Blood 07/29/22 10:06 Blood Culture - Final Blood Assessment and Plan Assessment: Impression: Acute perforated sigmoid diverticulitis with abscess, status post sigmoid colectomy and end colostomy postoperative day #3 Severe underlying COPD, extubated on 01/03/2023, tolerated the extubation well Chronic hypoxic with shortness failure, patient is normally on oxygen at home History of diverticulosis Ex-smoker, quit smoking 2 years ago History of prostate cancer History of underlying GERD Recent hospitalization for acute COPD exacerbation back in June Recommendation: Transfer out of the ICU to a regular medical floor Continue oxygen and titrate accordingly Continue bronchodilators Continue GI and DVT prophylaxis. Diet as per surgery on the case. Change hydrocortisone to 25 mg IV push every 8 hours, and eventually transitioned to oral prednisone once patient could be started on oral meds Prognosis remains relatively guarded. We will continue to follow Time with Patient: Less than 30
--- NOTE | 2022-08-05 15:13 | P.PN ---
Subjective Progress Note Date: 08/05/22 Principal diagnosis: Perforated diverticulitis and peritonitis Patient is a 72-year-old male presenting to the hospital abdominal pain has been diagnosed with acute diverticulitis with perforation treated medically did not have improvement subsequently was taken to the OR on 08/02/2022 and the patient is status post laparotomy; colectomy and diverting colostomy. On today's evaluation that is 08/05/2022, the patient remains to be afebrile, the patient is breathing comfortably comfortably on 3 L nasal cannula oxygen, patient denies having any chest pain or shortness of breath, the patient did have occasional cough abdominal pain is currently controlled no nausea no vomiting Objective - Vital Signs Vital signs: Vital Signs Temp 98.2 F 08/05/22 08:00 Pulse 92 08/05/22 12:25 Resp 16 08/05/22 12:00 BP 119/70 08/05/22 12:00 Pulse Ox 94 L 08/05/22 12:00 FiO2 35 08/03/22 12:00 Intake & Output 08/04/22 08/05/22 08/05/22 18:59 06:59 18:59 Intake Total 1925 3125 900 Output Total 675 535 250 Balance 1250 2590 650 Weight 69 kg Intake: IV 230 2125 900 Lactated Ringers 1,000 ml 100 1100 300 @ 100 mls/hr IV .Q10H [facility] Rx#:[id number] Mvi, Adult No.4 with Vit 30 K 10 ml Trace (Conc-1Ml/ Dose) 1 ml In Amino Acid 4.25%-D10w+Lytes*E* 1,000 ml @ 30 mls/hr IV .Q24H [facility] Rx#:[id number] Mvi, Adult No.4 with Vit 825 375 K 10 ml Trace (Conc-1Ml/ Dose) 1 ml In Amino Acid 4.25%-D10w+Lytes*E* 1,000 ml @ 75 mls/hr IV .BY DURATION [facility] Rx#: [id number] Piperacillin-Tazobactam 3 100 200 25 .375 gm In Sodium Chloride 0.9% 100 ml @ 25 mls/hr IVPB Q8H [facility] Rx#: [id number] Potassium Chloride 10 meq 200 In Water For Injection 1 100ml.bag @ 100 mls/hr IVPB Q1H [facility] Rx#: [id number] Intake, IV Titration 1695 1000 Amount Amino Acid 4.25%-D10w+ 225 1000 Lytes*E* 1,000 ml @ 75 mls/hr IV .BY DURATION [facility] Rx#:[id number] Lactated Ringers 1,000 ml 1200 @ 100 mls/hr IV .Q10H [facility] Rx#:[id number] Mvi, Adult No.4 with Vit 270 K 10 ml Trace (Conc-1Ml/ Dose) 1 ml In Amino Acid 4.25%-D10w+Lytes*E* 1,000 ml @ 30 mls/hr IV .Q24H [facility] Rx#:[id number] Oral 0 Tube Feeding 0 Output: Urine 675 535 250 Other: Voiding Method Indwelling Catheter Indwelling Catheter Indwelling Catheter - Exam GENERAL DESCRIPTION: An elderly male up in the chair in no distress RESPIRATORY SYSTEM: Unlabored breathing , decreased breath sounds at bases HEART: S1 S2 regular rate and rhythm , ABDOMEN: Soft , no tenderness EXTREMITIES: No edema feet - Labs CBC & Chem 7: 08/05/22 04:30 08/05/22 04:30 Labs: Abnormal Lab Results - Last 24 Hours (Table) 08/05/22 08/05/22 08/05/22 Range/Units 04:30 04:30 11:52 RBC 3.08 L (4.30-5.90) m/uL Hgb 9.3 L D (13.0-17.5) gm/dL Hct 28.2 L (39.0-53.0) % Lymphocytes # 0.4 L (1.0-4.8) k/uL Carbon Dioxide 33 H (22-30) mmol/L BUN 22 H (9-20) mg/dL Glucose 150 H (74-99) mg/dL POC Glucose (mg/dL) 145 H (70-110) mg/dL Calcium 7.7 L (8.4-10.2) mg/dL Microbiology - Last 24 Hours (Table) 08/02/22 21:47 Gram Stain - Final Abdomen Wound Culture - Final Strep agalactiae - (group b) 08/03/22 21:00 Gram Stain - Preliminary Sputum Sputum Culture - Preliminary 07/29/22 10:06 Blood Culture - Final Blood 07/29/22 10:06 Blood Culture - Final Blood Assessment and Plan (1) Diverticulitis of colon with perforation Current Visit: Yes Status: Acute Code(s): K57.20 - DVTRCLI OF LG INT W PERF ORATION AND ABSCESS W/O BLEEDING SNOMED Code(s): 82884874 Plan: 1patient was in the hospital with abdominal pain has been diagnosed with a com plicated diverticulitis failing medical therapy and the patient subsequently status post laparotomy sigmoid colectomy and diverting colostomy with concern for secondary peritonitis from perforated sigmoid diverticulitis and need to cover for enteric gram-negative both aerobes and anaerobes 2-patient abdominal cultures are currently group B strep 3-patient seemed to have shown clinical improvement and will continue with the Zosyn and monitor his clinical course closely Time with Patient: Less than 30
[2022-08-05 15:38] LABS: % Iron Saturation 25.99 (15.00-50.00)
--- NOTE | 2022-08-05 16:19 | P.PN ---
Subjective Progress Note Date: 08/05/22 CHIEF COMPLAINT: Perforated diverticulitis HISTORY OF PRESENT ILLNESS: Patient is postop day #3 status post sigmoid colectomy with end colostomy for perforated diverticulitis with abscess. Patient currently in the ICU. His pain is controlled. His ostomy is functioning. Afebrile. WBC 7. 2HP9.3 Patient seen and examined with Dr. meadows PHYSICAL EXAM: VITAL SIGNS: Reviewed. GENERAL: Well-developed in no acute distress. HEENT: No sclera icterus. Extraocular movements grossly intact. Moist buccal mucosa. Head is atraumatic, normocephalic. ABDOMEN: Soft. Nondistended Ostomy on the left with stool present. Incisional dressing with some blood saturation NEUROLOGIC: Alert and oriented. Cranial nerves II through XII grossly intact. ASSESSMENT: 1. Perforated diverticulitis with abscess status post sigmoid colectomy with end colostomy 2. History of COPD PLAN: -Advance diet to full liquids -Change Optifoam incisional dressing -Continue supportive care -Continue antibiotics per infectious disease -DVT prophylaxis Lovenox and GI prophylaxis Protonix Physician Billing Auditor note has been reviewed by physician. Signing provider agrees with the documented findings, assessment, and plan of care. Objective - Vital Signs Vital signs: Vital Signs Temp 98.0 F 08/05/22 04:00 Pulse 61 08/05/22 07:00 Resp 12 08/05/22 07:00 BP 121/62 08/05/22 07:00 Pulse Ox 97 08/05/22 07:00 FiO2 35 08/03/22 12:00 Intake & Output 08/04/22 08/05/22 08/05/22 18:59 06:59 18:59 Intake Total 1925 3125 175 Output Total 675 535 40 Balance 1250 2590 135 Weight 69 kg Intake: IV 230 2125 175 Lactated Ringers 1,000 ml 100 1100 @ 100 mls/hr IV .Q10H [facility] Rx#:[id number] Mvi, Adult No.4 with Vit 30 K 10 ml Trace (Conc-1Ml/ Dose) 1 ml In Amino Acid 4.25%-D10w+Lytes*E* 1,000 ml @ 30 mls/hr IV .Q24H [facility] Rx#:[id number] Mvi, Adult No.4 with Vit 825 75 K 10 ml Trace (Conc-1Ml/ Dose) 1 ml In Amino Acid 4.25%-D10w+Lytes*E* 1,000 ml @ 75 mls/hr IV .BY DURATION [facility] Rx#: [id number] Piperacillin-Tazobactam 3 100 200 .375 gm In Sodium Chloride 0.9% 100 ml @ 25 mls/hr IVPB Q8H [facility] Rx#: [id number] Potassium Chloride 10 meq 100 In Water For Injection 1 100ml.bag @ 100 mls/hr IVPB Q1H [facility] Rx#: [id number] Intake, IV Titration 1695 1000 Amount Amino Acid 4.25%-D10w+ 225 1000 Lytes*E* 1,000 ml @ 75 mls/hr IV .BY DURATION [facility] Rx#:[id number] Lactated Ringers 1,000 ml 1200 @ 100 mls/hr IV .Q10H [facility] Rx#:[id number] Mvi, Adult No.4 with Vit 270 K 10 ml Trace (Conc-1Ml/ Dose) 1 ml In Amino Acid 4.25%-D10w+Lytes*E* 1,000 ml @ 30 mls/hr IV .Q24H [facility] Rx#:[id number] Oral 0 Tube Feeding 0 Output: Urine 675 535 40 Other: Voiding Method Indwelling Catheter Indwelling Catheter - Labs CBC & Chem 7: 08/05/22 04:30 08/05/22 04:30 Labs: Abnormal Lab Results - Last 24 Hours (Table) 08/05/22 08/05/22 Range/Units 04:30 04:30 RBC 3.08 L (4.30-5.90) m/uL Hgb 9.3 L D (13.0-17.5) gm/dL Hct 28.2 L (39.0-53.0) % Lymphocytes # 0.4 L (1.0-4.8) k/uL Carbon Dioxide 33 H (22-30) mmol/L BUN 22 H (9-20) mg/dL Glucose 150 H (74-99) mg/dL Calcium 7.7 L (8.4-10.2) mg/dL Microbiology - Last 24 Hours (Table) 08/03/22 21:00 Gram Stain - Preliminary Sputum Sputum Culture - Preliminary 07/29/22 10:06 Blood Culture - Final Blood 07/29/22 10:06 Blood Culture - Final Blood 08/02/22 21:47 Gram Stain - Preliminary Abdomen Wound Culture - Preliminary Strep agalactiae - (group b)
[2022-08-05 18:01] LABS: Glucose,Whole Blood 128 mg/dL (70-110)
[2022-08-05] MEDS: DEXTROSE 5%-0.45% NACL 1,000 ML IV SCH (20:37)
[2022-08-05] MEDS: ONDANSETRON 4 MG/2 ML VIAL IVP PRN (21:48)
--- NOTE | 2022-08-05 22:31 | XR ---
EXAMINATION TYPE: XR chest 1V portable DATE OF EXAM: 08/05/2022 10:20 PM COMPARISON: Chest radiographs from TECHNIQUE: XR chest 1V portable Frontal view of the chest. CLINICAL INDICATION:Male, 72 years old with history of ngt placement; FINDINGS: Lungs/Pleura: No evidence of focal consolidation or pneumothorax. Blunting of the costophrenic angles is present. Flattening of the diaphragms with increased lucency in the lung apices. Pulmonary vascularity: Unremarkable. Heart/mediastinum: Cardiomediastinal silhouette is unremarkable. Musculoskeletal: No acute osseous pathology. Other findings: None Lines/Tubes: Nasogastric tube with its distal tip and side-port projecting under the diaphragm and projecting over the gastric lumen. Left central venous catheter with distal tip at the cavoatrial junction. IMPRESSION: 1. No acute cardiopulmonary disease/process. 2. Nasogastric tube and left central venous catheter with tips in appropriate position. 3. COPD changes. 4. Trace bilateral pleural effusions.
[2022-08-06] MEDS: PIPERACILLIN-TAZOBACTAM 3.375 GM in SODIUM CHLORIDE 0.9% 100 ML IVPB SCH ×3 (03:52→20:50)
[2022-08-06] MEDS: HYDROmorphone 0.5 MG/0.5 ML SYRINGE IVP PRN ×4 (03:57→22:02)
[2022-08-06] MEDS: LACTATED RINGERS 1,000 ML IV SCH ×2 (03:58→21:19)
[2022-08-06 05:23] LABS: Basophils % (A) 0 %; Eosinophils % (A) 0 %; HCT 34.6 % (39.0-53.0); HGB 11.2 gm/dL (13.0-17.5); Lymphocytes # (A) 0.4 k/uL (1.0-4.8); Lymphocytes % (A) 5 %; MCH 29.8 pg (25.0-35.0); MCHC 32.4 g/dL (31.0-37.0); Mean Platelet Volume 7.5; Monocytes # (A) 0.2 k/uL (0-1.0); Monocytes % (A) 3 %; Neutrophils # (A) 6.9 k/uL (1.3-7.7); Neutrophils % (A) 91 %; Platelet Count 312 k/uL (150-450); RBC 3.75 m/uL (4.30-5.90); RDW 13.6 % (11.5-15.5); WBC 7.6 k/uL (3.8-10.6)
[2022-08-06 05:31] LABS: ALT 22 U/L (4-49); AST 24 U/L (17-59); African American GFR (CKD) >90 (>60 ml/min/1.73 sqM); Albumin 2.2 g/dL (3.5-5.0); Alkaline Phosphatase 38 U/L (38-126); Anion Gap 0 mmol/L; Blood Urea Nitrogen 24 mg/dL (9-20); Calcium 7.8 mg/dL (8.4-10.2); Carbon Dioxide 33 mmol/L (22-30); Chloride 105 mmol/L (98-107); Glucose 152 mg/dL (74-99); Magnesium 2.1 mg/dL (1.6-2.3); Non-African American GFR(CKD) 86 (>60 ml/min/1.73 sqM); Phosphorus 3.5 mg/dL (2.5-4.5); Sodium 138 mmol/L (137-145); Total Bilirubin 0.3 mg/dL (0.2-1.3); Total Protein 4.2 g/dL (6.3-8.2)
[2022-08-06 05:54] LABS: Glucose,Whole Blood 141 mg/dL (70-110)
[2022-08-06] MEDS: FORMOTEROL FUMARATE 20 MCG/2 ML NEBU INHALATION SCH ×2 (08:05→21:08)
[2022-08-06] MEDS: IPRATROPIUM-ALBUTEROL 3 ML NEB INHALATION SCH ×4 (08:05→21:08)
[2022-08-06] MEDS: BUDESONIDE 1 MG/2 ML NEBU INHALATION SCH ×2 (08:05→21:08)
[2022-08-06] MEDS: PANTOPRAZOLE 40 MG/10 ML VIAL IV SCH (08:08)
[2022-08-06] MEDS: HYDROCORTISONE SUCCINATE 100 MG/2 ML VIAL IV SCH ×2 (08:08→15:58)
[2022-08-06] MEDS: ENOXAPARIN 40 MG/0.4 ML SYRINGE SQ SCH (08:11)
[2022-08-06] MEDS: 1: AMINO ACID 4.25%-D10W+LYTES*E* 1,000 ML 2: MVI, ADULT NO.4 WITH VIT K 10 ML, TRACE ( IV SCH ×6 (09:12→20:50)
--- NOTE | 2022-08-06 10:29 | P.PN ---
Subjective Progress Note Date: 08/06/22 Principal diagnosis: Status post Hogan's Patient last night was complaining of increased bloating and some shortness of breath. Patient had a nasogastric tube placed with approximately 1 L output. Patient still complains of some bloating although says he feels much better. His shortness of breath is improved. White blood cell count is normal. He is afebrile. Ostomy does have some stool in the appliance. Objective - Vital Signs Vital signs: Vital Signs Temp 97.9 F 08/06/22 08:00 Pulse 90 08/06/22 08:25 Resp 20 08/06/22 08:00 BP 129/82 08/06/22 08:00 Pulse Ox 96 08/06/22 08:05 FiO2 35 08/03/22 12:00 Intake & Output 08/05/22 08/06/22 08/06/22 18:59 06:59 18:59 Intake Total 2375 3155 350 Output Total 850 1500 350 Balance 1525 1655 0 Weight 69 kg 72 kg Intake: IV 2375 1300 350 Lactated Ringers 1,000 ml 1100 1100 350 @ 100 mls/hr IV .Q10H [facility] Rx#:[id number] Mvi, Adult No.4 with Vit 975 K 10 ml Trace (Conc-1Ml/ Dose) 1 ml In Amino Acid 4.25%-D10w+Lytes*E* 1,000 ml @ 75 mls/hr IV .BY DURATION [facility] Rx#: [id number] Piperacillin-Tazobactam 3 100 200 .375 gm In Sodium Chloride 0.9% 100 ml @ 25 mls/hr IVPB Q8H [facility] Rx#: [id number] Potassium Chloride 10 meq 200 In Water For Injection 1 100ml.bag @ 100 mls/hr IVPB Q1H [facility] Rx#: [id number] Intake, IV Titration 1180 Amount Amino Acid 4.25%-D10w+ 1000 Lytes*E* 1,000 ml @ 75 mls/hr IV .BY DURATION [facility] Rx#:[id number] Mvi, Adult No.4 with Vit 180 K 10 ml Trace (Conc-1Ml/ Dose) 1 ml In Amino Acid 4.25%-D10w+Lytes*E* 1,000 ml @ 75 mls/hr IV .BY DURATION [facility] Rx#: [id number] TPN/PPN 675 Mvi, Adult No.4 with Vit 675 K 10 ml Trace (Conc-1Ml/ Dose) 1 ml In Amino Acid 4.25%-D10w+Lytes*E* 1,000 ml @ 75 mls/hr IV .BY DURATION [facility] Rx#: [id number] Output: Gastric Drainage 900 200 Urine 850 550 150 Emesis 50 Other: Voiding Method Indwelling Catheter Indwelling Catheter - Exam Abdomen: Soft, distended, midline incision with some cloudy fluid from the infraumbilical staple line, slight erythema, mild tenderness - Labs CBC & Chem 7: 08/06/22 04:51 08/06/22 04:51 Labs: Abnormal Lab Results - Last 24 Hours (Table) 08/05/22 08/05/22 08/05/22 Range/Units 04:30 04:30 11:52 RBC (4.30-5.90) m/uL Hgb (13.0-17.5) gm/dL Hct (39.0-53.0) % Lymphocytes # (1.0-4.8) k/uL Carbon Dioxide (22-30) mmol/L BUN (9-20) mg/dL Glucose (74-99) mg/dL POC Glucose (mg/dL) 145 H (70-110) mg/dL Calcium (8.4-10.2) mg/dL Iron 47 L (65-175) ug/dL TIBC 182 L (228-460) ug/dL Transferrin 130.0 L 130.0 L (204.0-354.0) mg/dL Total Protein (6.3-8.2) g/dL Albumin (3.5-5.0) g/dL 08/05/22 08/06/22 08/06/22 Range/Units 17:59 04:51 04:51 RBC 3.75 L (4.30-5.90) m/uL Hgb 11.2 L (13.0-17.5) gm/dL Hct 34.6 L (39.0-53.0) % Lymphocytes # 0.4 L (1.0-4.8) k/uL Carbon Dioxide 33 H (22-30) mmol/L BUN 24 H (9-20) mg/dL Glucose 152 H (74-99) mg/dL POC Glucose (mg/dL) 128 H (70-110) mg/dL Calcium 7.8 L (8.4-10.2) mg/dL Iron (65-175) ug/dL TIBC (228-460) ug/dL Transferrin (204.0-354.0) mg/dL Total Protein 4.2 L (6.3-8.2) g/dL Albumin 2.2 L (3.5-5.0) g/dL 08/06/22 Range/Units 05:52 RBC (4.30-5.90) m/uL Hgb (13.0-17.5) gm/dL Hct (39.0-53.0) % Lymphocytes # (1.0-4.8) k/uL Carbon Dioxide (22-30) mmol/L BUN (9-20) mg/dL Glucose (74-99) mg/dL POC Glucose (mg/dL) 141 H (70-110) mg/dL Calcium (8.4-10.2) mg/dL Iron (65-175) ug/dL TIBC (228-460) ug/dL Transferrin (204.0-354.0) mg/dL Total Protein (6.3-8.2) g/dL Albumin (3.5-5.0) g/dL Microbiology - Last 24 Hours (Table) 08/03/22 21:00 Gram Stain - Final Sputum Sputum Culture - Final 08/02/22 21:47 Gram Stain - Final Abdomen Wound Culture - Final Strep agalactiae - (group b) Assessment and Plan (1) Diverticulitis of colon with perforation Narrative/Plan: Patient with suspected ileus at this time. Keep nasogastric tube to suction. Continue antibiotics. One staple was removed from the midline incision. Some serosanguineous fluid was evacuated. Wound was packed. Current Visit: Yes Status: Acute Code(s): K57.20 - DVTRCLI OF LG INT W PERFORATION AND ABSCESS W/O BLEEDING SNOMED Code(s): 85995651
--- NOTE | 2022-08-06 10:43 | P.PN ---
Subjective Progress Note Date: 08/06/22 Hospital Course: 72-year-old male with a past medical history of COPD home oxygen dependent on 3 L at all times, diverticulosis and GERD. He presented to the emergency department with a chief complaint of abdominal pain. CBC showing severe leukocytosis with WBC count of 18.7 with left shift with neutrophils of 17.1. BMP revealing mild prerenal azotemia with BUN of 21. Glucose was 132 and lactic acid was 1.3. Liver profile unremarkable. Troponin less than 0.012. Urinalysis was negative for infection. Covid PCR was negative. EKG was completed showing normal sinus rhythm and 99 bpm with no noted T-wave or ST abnormalities showing no signs of acute ischemia on personal review and interpretation. Chest x-ray showing COPD changes but negative for acute cardiopulmonary process. CT abdomen and pelvis exam positive for acute sigmoid diverticulitis complicated by perforation and pockets of free intraperitoneal air measuring up to 5.5 cm accompanied by trace lower abdominal ascites, secondary small bowel ileus, small to moderate sized hiatal hernia, mild circumferential distal esophageal wall thickening, and prostamegaly with prostate measurement of 5.2 cm wide. Patient was admitted under Gen. surgery team and sound physicians consulted for medical management throughout hospitalization. Computed tomography scan showed diverticular perforation. So patient that had sigmoidectomy done emergently. After the procedure patient was kept intubated and he was transferred to the ICU. Patient now extubated, on nasal cannula. Remains in the ICU. Still having significant NG output. Subjective: Patient seen and examined at bedside. Overnight, patient had significant nausea, NG tube placed again. Denies any significant abdominal pain. Denies any other complaints at the moment. Has a Art catheter in place, and ostomy. Pertinent positives and negatives as discussed above, a complete review of systems was performed and all other systems are negative. Vitals Signs Reviewed. General: nontoxic, no distress, appears at stated age Derm: warm, dry, incisional site dry, clean, intact Head: atraumatic, normocephalic, symmetric Eyes: EOMI, no lid lag, anicteric sclera Mouth: no lip lesion, mucus membranes moist Cardiovascular: S1S2 reg, no murmur Lungs: CTA bilateral, no rhonchi, no rales , no accessory muscle use Abdominal: soft, nontender to palpation, no guarding, no appreciable organomegaly, ostomy, NG tube Ext: no gross muscle atrophy, no edema, no contractures Neuro: CN II-XI grossly intact, no focal neuro deficits Psych: Alert, oriented, appropriate affect Data Reviewed Today: Pertinent Labs: WBC 7.6, hemoglobin 11.2, platelets 312, sodium 138, potassium 4, creatinine 0.89, blood sugars range between 128-152 Imaging: No new imaging today Wound culture growing group B strep Assessment and Plan: Patient remains critically ill in the medical ICU. Acute perforated diverticulitis with abscess Sigmoid colectomy with end colostomy on 08/02/2032 Sepsis on admission Anemia of chronic disease COPD on chronic prednisone, not in exacerbation Chronic hypoxemic respiratory failure on 2 L home O2 -Surgery note reviewed, continue NG tube to suction, possibly has ileus -Lactated Ringer 100 mL an hour -Protonix 40 mg IV daily -Pain control with IV Dilaudid as needed -Zofran as needed -ID following, Wound cultures growing group B strep, patient currently on IV Zosyn 3.375 g every 8 hours -Blood cultures negative growth to date -Pulmonology following, patient on stress dose steroids, at 25 mg IV hydrocortisone every 8 hours -Continue bronchodilators -Hemoglobin recovered DVT ppx: Lovenox Code status: Full code Anticipated discharge place: Pending clinical course Anticipated discharge time: Pending clinical course Objective - Vital Signs Vital signs: Vital Signs Temp 97.9 F 08/06/22 08:00 Pulse 84 08/06/22 10:28 Resp 20 08/06/22 10:28 BP 97/63 08/06/22 10:28 Pulse Ox 92 L 08/06/22 10:28 FiO2 35 08/03/22 12:00 Intake & Output 08/05/22 08/06/22 08/06/22 18:59 06:59 18:59 Intake Total 2375 3155 370 Output Total 850 1500 350 Balance 1525 1655 20 Weight 69 kg 72 kg Intake: IV 2375 1300 370 Lactated Ringers 1,000 ml 1100 1100 370 @ 100 mls/hr IV .Q10H [facility] Rx#:[id number] Mvi, Adult No.4 with Vit 975 K 10 ml Trace (Conc-1Ml/ Dose) 1 ml In Amino Acid 4.25%-D10w+Lytes*E* 1,000 ml @ 75 mls/hr IV .BY DURATION [facility] Rx#: [id number] Piperacillin-Tazobactam 3 100 200 .375 gm In Sodium Chloride 0.9% 100 ml @ 25 mls/hr IVPB Q8H [facility] Rx#: [id number] Potassium Chloride 10 meq 200 In Water For Injection 1 100ml.bag @ 100 mls/hr IVPB Q1H [facility] Rx#: [id number] Intake, IV Titration 1180 Amount Amino Acid 4.25%-D10w+ 1000 Lytes*E* 1,000 ml @ 75 mls/hr IV .BY DURATION [facility] Rx#:[id number] Mvi, Adult No.4 with Vit 180 K 10 ml Trace (Conc-1Ml/ Dose) 1 ml In Amino Acid 4.25%-D10w+Lytes*E* 1,000 ml @ 75 mls/hr IV .BY DURATION [facility] Rx#: [id number] Oral 0 TPN/PPN 675 Mvi, Adult No.4 with Vit 675 K 10 ml Trace (Conc-1Ml/ Dose) 1 ml In Amino Acid 4.25%-D10w+Lytes*E* 1,000 ml @ 75 mls/hr IV .BY DURATION [facility] Rx#: [id number] Output: Gastric Drainage 900 200 Urine 850 550 150 Emesis 50 Other: Voiding Method Indwelling Catheter Indwelling Catheter - Labs CBC & Chem 7: 08/06/22 04:51 08/06/22 04:51 Labs: Abnormal Lab Results - Last 24 Hours (Table) 08/05/22 08/05/22 08/05/22 Range/Units 04:30 04:30 11:52 RBC (4.30-5.90) m/uL Hgb (13.0-17.5) gm/dL Hct (39.0-53.0) % Lymphocytes # (1.0-4.8) k/uL Carbon Dioxide (22-30) mmol/L BUN (9-20) mg/dL Glucose (74-99) mg/dL POC Glucose (mg/dL) 145 H (70-110) mg/dL Calcium (8.4-10.2) mg/dL Iron 47 L (65-175) ug/dL TIBC 182 L (228-460) ug/dL Transferrin 130.0 L 130.0 L (204.0-354.0) mg/dL Total Protein (6.3-8.2) g/dL Albumin (3.5-5.0) g/dL 08/05/22 08/06/22 08/06/22 Range/Units 17:59 04:51 04:51 RBC 3.75 L (4.30-5.90) m/uL Hgb 11.2 L (13.0-17.5) gm/dL Hct 34.6 L (39.0-53.0) % Lymphocytes # 0.4 L (1.0-4.8) k/uL Carbon Dioxide 33 H (22-30) mmol/L BUN 24 H (9-20) mg/dL Glucose 152 H (74-99) mg/dL POC Glucose (mg/dL) 128 H (70-110) mg/dL Calcium 7.8 L (8.4-10.2) mg/dL Iron (65-175) ug/dL TIBC (228-460) ug/dL Transferrin (204.0-354.0) mg/dL Total Protein 4.2 L (6.3-8.2) g/dL Albumin 2.2 L (3.5-5.0) g/dL 08/06/22 Range/Units 05:52 RBC (4.30-5.90) m/uL Hgb (13.0-17.5) gm/dL Hct (39.0-53.0) % Lymphocytes # (1.0-4.8) k/uL Carbon Dioxide (22-30) mmol/L BUN (9-20) mg/dL Glucose (74-99) mg/dL POC Glucose (mg/dL) 141 H (70-110) mg/dL Calcium (8.4-10.2) mg/dL Iron (65-175) ug/dL TIBC (228-460) ug/dL Transferrin (204.0-354.0) mg/dL Total Protein (6.3-8.2) g/dL Albumin (3.5-5.0) g/dL Microbiology - Last 24 Hours (Table) 08/03/22 21:00 Gram Stain - Final Sputum Sputum Culture - Final 08/02/22 21:47 Gram Stain - Final Abdomen Wound Culture - Final Strep agalactiae - (group b)
[2022-08-06 11:54] LABS: Glucose,Whole Blood 141 mg/dL (70-110)
--- NOTE | 2022-08-06 12:25 | P.PN ---
Subjective Progress Note Date: 08/06/22 Principal diagnosis: Sigmoid diverticulitis with perforation and abscess I was asked to evaluate this patient because of his advanced COPD and ongoing abdominal complications. The patient was seen in the emergency department. The patient is known to have diverticulosis he came in for an acute abdominal pain this morning. CAT scan of the abdomen was done and the patient was found to have acute sigmoid diverticulitis. This was a comp acute diverticulitis as perforation suspected and the patient had pockets of free intraperitoneal air measuring up to 5.5 cm in size. There is also trace lower abdominal ascites. No evidence of any abscess formation. Is also small bowel ileus. There is moderate size hiatal hernia also. The patient has a large prostate. Is known to have prostate cancer. The patient is also known to have advanced COPD. The patient is auction dependent. The patient is steroid dependent and is taking 10 mg of prednisone on a daily basis on outpatient basis. He has been followed up through our office. He has exertional dyspnea which is chronic in his significant limitation in exercise capacity because of his advanced COPD. No chest pain. No worsening shortness of breath. No swelling lower extremities. No previous history of DVT or pulmonary embolism. No nausea or emesis. No aspiration. GI surgeries on the case. Currently is on antibiotics. No plans for any surgery at this point in time. Blood work shows a WBC count of 18, he moglobin 13, normal cognition profile, BUN is 20 over the creatinine of 0.9. LFTs are normal. Lactic acid level is at 1.3. On today's evaluation of 07/30/2022, the patient's abdomen is less tender. The patient remains nothing by mouth. No worsening shortness of breath. The patient is on IV Zosyn. The patient is going to be treated conservatively. White cell count is at 14 with a hemoglobin of 11.1 and a platelet count of 245 noted the white cycles lower compared to yesterday. BUN is at 21 with a creatinine of 1.3. Sodium is at 143. Awake and alert and communicating. He remains on oxygen at 2 L/m nasal cannula. On 07/31/2022, the patient is doing well. No specific complaints. Abdominal pain is subsiding gradually. His COPD remains on IV Zosyn. No plans for any surgical intervention this point in time. The patient is known to have advanced COPD and the patient also has oxygen steroid dependent COPD and the patient is currently on hydrocortisone. IV fluids are in the form of D5 half-normal saline at rate of 100 mL an hour. The white cell count is down to 8.2 with hemoglobin 11.5 and a platelet count of 15. BUN is at 60 with a creatinine of 1 and his sodium level is at 137. The patient is seen today 08/01/2022 in follow-up on the regular medical floor. He is currently sitting up in bed. Awake and alert in no acute distress. Maintaining O2 saturations in the 90s on 2 L/m per nasal cannula. Currently on D5.45 normal saline at 100 ML's per hour. He is continued on Zosyn. His abdominal discomfort is gradually improving. Follow-up chest x-ray continues to show diffuse severe emphysematous changes with coarsened interstitium suspicious for chronic interstitial lung disease. Blood culture reveals no growth. White count 8.1. Hemoglobin 10.5. Platelets 225. Sodium 142. Potassium 3.9. Bicarb 26. BUN 11. Creatinine 1.0. Glucose 165. ProBNP 1500. Troponin negative 1. AST 12. ALT 13. Alk phos 39. Continued on DuoNeb inhalations. Lovenox for DVT prophylaxis. Remains on Solu-Cortef. The patient is seen today 08/02/2022 in follow-up on the regular medical floor. He is awake and alert in no acute distress. Resting fairly comfortably in bed. Maintaining good O2 saturations in the 90s on 2 L/m per nasal cannula. He is receiving D5 and half-normal saline at 100 ML's per hour. Remains on antibiotics in the form of Zosyn. Lovenox for DVT prophylaxis. Continued on Solu-Cortef. His abdominal discomfort is waxing and waning. A little more tender today. He remains nothing by mouth. Blood cultures revealed no growth. Blood glucose 151. Reevaluated today on 08/03/22, patient underwent sigmoid colectomy and end colostomy yesterday by Dr. Moyer mostly because of his sigmoid diverticulitis with perforation and abscess, patient came back to the ICU on mechanical ventilation. Remains intubated and mechanically ventilated. Patient is known to have severe end-stage COPD FEV1 is no more than 26%, however the benefits of the surgery obviously outweighed the risks. And surgery had to be done yesterday because the patient continued to have significant abdominal pain and tenderness. Patient is now on assist control rate of 16, volume 400 FiO2 50% and PEEP of 5, ABG showed a pO2 of 251 pCO2 42 pH of 7.45. His chest x-ray is showing minimal atelectasis, no infiltrate, no evidence of congestive heart failure, his electrolytes are normal renal profile is normal, CBC is relatively unremarkable. Hence I cut down his FiO2 to 35%, patient remains on enteral are at 100 mL an hour he is also on propofol at 50 mcg/kg/m, I have recommended stopping propofol, and was the patient is awake we will recommend checking weani ng parameters, and if reasonable proceed with a pressure support and CPAP with a pressure support of 10, follow-up ABG in 1 hour after being on pressure support and CPAP, and we will likely consider extubation later today. Reevaluated today on 08/04/2022, patient remains in the ICU, he is status post sigmoid colectomy and end colostomy with severe underlying COPD. FEV1 is in the range of 26%, surprisingly the patient is doing better than expected. Patient remains on 4 L nasal cannula with adequate O2 saturation, his ostomy is functioning well, remains on Zosyn, his also on TPN at 50 mL per hour. WBC count is 9.1 hemoglobin is 10.9. Basic metabolic profile is normal renal profile is normal. Chest x-ray yesterday showed minimal interstitial findings and COPD Reevaluated today on 08/05/2022, patient remains in the ICU, doing well, relatively asymptomatic, his ostomy is functioning well, pulmonary status is relatively stable in spite of its severity patient denies any abdominal pain, no shortness of breath, his labs were relatively normal including normal CBC and normal electrolytes normal renal profile hence I will transfer the patient out of the ICU to a regular medical floor. Reevaluated today on 08/06/2022, patient had his nasogastric tube removed yesterday, however he developed abdominal distention and a nasogastric tube was placed back again today significant amount of fluid was noted are of the stomach over 900 mL. Patient felt better nonetheless he remains a bit bloated, now he has a nasogastric tube back in place. Considering his symptoms I'm recommending that we keep him in the ICU today. Pulmonary-wharton he is doing well in spite of his severe underlying COPD. Labs today showed relatively normal CBC and a relatively normal electrolytes bicarb is 33 BUN is 24 creatinine 0.89. Patient was seen by surgery today/Dr. gurrola, and he is recommending to keep the nasogastric tube in place. Objective - Vital Signs Vital signs: Vital Signs Temp 97.9 F 08/06/22 08:00 Pulse 87 08/06/22 11:32 Resp 20 08/06/22 10:28 BP 97/63 08/06/22 10:28 Pulse Ox 92 L 08/06/22 10:28 FiO2 35 08/03/22 12:00 Intake & Output 08/05/22 08/06/22 08/06/22 18:59 06:59 18:59 Intake Total 2375 3155 390 Output Total 850 1500 425 Balance 1525 1655 -35 Weight 69 kg 72 kg Intake: IV 2375 1300 390 Lactated Ringers 1,000 ml 1100 1100 390 @ 100 mls/hr IV .Q10H [facility] Rx#:[id number] Mvi, Adult No.4 with Vit 975 K 10 ml Trace (Conc-1Ml/ Dose) 1 ml In Amino Acid 4.25%-D10w+Lytes*E* 1,000 ml @ 75 mls/hr IV .BY DURATION [facility] Rx#: [id number] Piperacillin-Tazobactam 3 100 200 .375 gm In Sodium Chloride 0.9% 100 ml @ 25 mls/hr IVPB Q8H [facility] Rx#: [id number] Potassium Chloride 10 meq 200 In Water For Injection 1 100ml.bag @ 100 mls/hr IVPB Q1H [facility] Rx#: [id number] Intake, IV Titration 1180 Amount Amino Acid 4.25%-D10w+ 1000 Lytes*E* 1,000 ml @ 75 mls/hr IV .BY DURATION [facility] Rx#:[id number] Mvi, Adult No.4 with Vit 180 K 10 ml Trace (Conc-1Ml/ Dose) 1 ml In Amino Acid 4.25%-D10w+Lytes*E* 1,000 ml @ 75 mls/hr IV .BY DURATION YOLANDA Rx#: [id number] Oral 0 TPN/PPN 675 Mvi, Adult No.4 with Vit 675 K 10 ml Trace (Conc-1Ml/ Dose) 1 ml In Amino Acid 4.25%-D10w+Lytes*E* 1,000 ml @ 75 mls/hr IV .BY DURATION [facility] Rx#: [id number] Output: Gastric Drainage 900 200 Urine 850 550 225 Emesis 50 Other: Voiding Method Indwelling Catheter Indwelling Catheter - Exam Physical Exam: Revealed a 72-year-old white male in no distress on 4 L nasal cannula, not in distress. Head: Atraumatic normocephalic. HEENT:[Neck is supple.] [No neck masses.] [No thyromegaly.] [No JVD.] Endotracheal tube and nasogastric tube are intact. Chest: [Symmetrical chest expansion, diminished breath sound bilaterally no crackles or rhonchi or wheezes Cardiac Exam: [Normal S1 and S2, no S3 gallop, no murmur.] Abdomen: Postsurgical, slightly distended minimal tenderness , colostomy seems to be intact. Colostomy is functional. Extremities: [No clubbing, no edema, no cyanosis.] Neurological Exam: Alert and oriented 3 no Focal deficits Psychiatric: Normal mood affect and normal mental status examination. - Labs CBC & Chem 7: 08/06/22 04:51 08/06/22 04:51 Labs: Abnormal Lab Results - Last 24 Hours (Table) 08/05/22 08/05/22 08/05/22 Range/Units 04:30 04:30 17:59 RBC (4.30-5.90) m/uL Hgb (13.0-17.5) gm/dL Hct (39.0-53.0) % Lymphocytes # (1.0-4.8) k/uL Carbon Dioxide (22-30) mmol/L BUN (9-20) mg/dL Glucose (74-99) mg/dL POC Glucose (mg/dL) 128 H (70-110) mg/dL Calcium (8.4-10.2) mg/dL Iron 47 L (65-175) ug/dL TIBC 182 L (228-460) ug/dL Transferrin 130.0 L 130.0 L (204.0-354.0) mg/dL Total Protein (6.3-8.2) g/dL Albumin (3.5-5.0) g/dL 08/06/22 08/06/22 08/06/22 Range/Units 04:51 04:51 05:52 RBC 3.75 L (4.30-5.90) m/uL Hgb 11.2 L (13.0-17.5) gm/dL Hct 34.6 L (39.0-53.0) % Lymphocytes # 0.4 L (1.0-4.8) k/uL Carbon Dioxide 33 H (22-30) mmol/L BUN 24 H (9-20) mg/dL Glucose 152 H (74-99) mg/dL POC Glucose (mg/dL) 141 H (70-110) mg/dL Calcium 7.8 L (8.4-10.2) mg/dL Iron (65-175) ug/dL TIBC (228-460) ug/dL Transferrin (204.0-354.0) mg/dL Total Protein 4.2 L (6.3-8.2) g/dL Albumin 2.2 L (3.5-5.0) g/dL 08/06/22 Range/Units 11:53 RBC (4.30-5.90) m/uL Hgb (13.0-17.5) gm/dL Hct (39.0-53.0) % Lymphocytes # (1.0-4.8) k/uL Carbon Dioxide (22-30) mmol/L BUN (9-20) mg/dL Glucose (74-99) mg/dL POC Glucose (mg/dL) 141 H (70-110) mg/dL Calcium (8.4-10.2) mg/dL Iron (65-175) ug/dL TIBC (228-460) ug/dL Transferrin (204.0-354.0) mg/dL Total Protein (6.3-8.2) g/dL Albumin (3.5-5.0) g/dL Microbiology - Last 24 Hours (Table) 08/03/22 21:00 Gram Stain - Final Sputum Sputum Culture - Final 08/02/22 21:47 Gram Stain - Final Abdomen Wound Culture - Final Strep agalactiae - (group b) Assessment and Plan Assessment: Impression: Acute perforated sigmoid diverticulitis with abscess, status post sigmoid colectomy and end colostomy postoperative day #4 Severe underlying COPD, extubated on 01/03/2023, tolerated the extubation well Chronic hypoxic with shortness failure, patient is normally on oxygen at home History of diverticulosis Ex-smoker, quit smoking 2 years ago History of prostate cancer History of underlying GERD Recent hospitalization for acute COPD exacerbation back in June Suspect postoperative ileus hence will continue to monitor the patient in the ICU for the next 24 hours, and continue nasogastric tube in place Recommendation: Continue to monitor in ICU r Continue oxygen and titrate accordingly Continue bronchodilators Continue GI and DVT prophylaxis. Keep nothing by mouth for now. Change hydrocortisone to 25 mg IV push every 8 hours, and eventually transitioned to oral prednisone once patient could be started on oral meds Prognosis remains relatively guarded. We will continue to follow Time with Patient: Less than 30
[2022-08-06 17:45] LABS: Glucose,Whole Blood 127 mg/dL (70-110)
--- NOTE | 2022-08-06 22:25 | P.PN ---
Subjective Progress Note Date: 08/06/22 Principal diagnosis: Perforated diverticulitis and peritonitis Patient is a 72-year-old male presenting to the hospital abdominal pain has been diagnosed with acute diverticulitis with perforation treated medically did not have improvement subsequently was taken to the OR on 08/02/2022 and the patient is status post laparotomy; colectomy and diverting colostomy. On today's evaluation that is 08/06/2022, the patient remains to be afebrile, patient did have a episodes of vomiting and did require placement of an NG tube patient is currently breathing comfortably on oxygen nasal cannula oxygen repeat denies having any chest pain or worsening cough abdominal pain is currently controlled no further vomiting Objective - Vital Signs Vital signs: Vital Signs Temp 97.9 F 08/06/22 08:00 Pulse 84 08/06/22 10:28 Resp 20 08/06/22 10:28 BP 97/63 08/06/22 10:28 Pulse Ox 92 L 08/06/22 10:28 FiO2 35 08/03/22 12:00 Intake & Output 08/05/22 08/06/22 08/06/22 18:59 06:59 18:59 Intake Total 2375 3155 370 Output Total 850 1500 350 Balance 1525 1655 20 Weight 69 kg 72 kg Intake: IV 2375 1300 370 Lactated Ringers 1,000 ml 1100 1100 370 @ 100 mls/hr IV .Q10H [facility] Rx#:[id number] Mvi, Adult No.4 with Vit 975 K 10 ml Trace (Conc-1Ml/ Dose) 1 ml In Amino Acid 4.25%-D10w+Lytes*E* 1,000 ml @ 75 mls/hr IV .BY DURATION [facility] Rx#: [id number] Piperacillin-Tazobactam 3 100 200 .375 gm In Sodium Chloride 0.9% 100 ml @ 25 mls/hr IVPB Q8H [facility] Rx#: [id number] Potassium Chloride 10 meq 200 In Water For Injection 1 100ml.bag @ 100 mls/hr IVPB Q1H [facility] Rx#: [id number] Intake, IV Titration 1180 Amount Amino Acid 4.25%-D10w+ 1000 Lytes*E* 1,000 ml @ 75 mls/hr IV .BY DURATION [facility] Rx#:[id number] Mvi, Adult No.4 with Vit 180 K 10 ml Trace (Conc-1Ml/ Dose) 1 ml In Amino Acid 4.25%-D10w+Lytes*E* 1,000 ml @ 75 mls/hr IV .BY DURATION [facility] Rx#: [id number] Oral 0 TPN/PPN 675 Mvi, Adult No.4 with Vit 675 K 10 ml Trace (Conc-1Ml/ Dose) 1 ml In Amino Acid 4.25%-D10w+Lytes*E* 1,000 ml @ 75 mls/hr IV .BY DURATION [facility] Rx#: [id number] Output: Gastric Drainage 900 200 Urine 850 550 150 Emesis 50 Other: Voiding Method Indwelling Catheter Indwelling Catheter - Exam GENERAL DESCRIPTION: An elderly male up in the chair in no distress RESPIRATORY SYSTEM: Unlabored breathing , decreased breath sounds at bases HEART: S1 S2 regular rate and rhythm , ABDOMEN: Soft , no tenderness EXTREMITIES: No edema feet - Labs CBC & Chem 7: 08/06/22 04:51 08/06/22 04:51 Labs: Abnormal Lab Results - Last 24 Hours (Table) 08/05/22 08/05/22 08/05/22 Range/Units 04:30 04:30 11:52 RBC (4.30-5.90) m/uL Hgb (13.0-17.5) gm/dL Hct (39.0-53.0) % Lymphocytes # (1.0-4.8) k/uL Carbon Dioxide (22-30) mmol/L BUN (9-20) mg/dL Glucose (74-99) mg/dL POC Glucose (mg/dL) 145 H (70-110) mg/dL Calcium (8.4-10.2) mg/dL Iron 47 L (65-175) ug/dL TIBC 182 L (228-460) ug/dL Transferrin 130.0 L 130.0 L (204.0-354.0) mg/dL Total Protein (6.3-8.2) g/dL Albumin (3.5-5.0) g/dL 08/05/22 08/06/22 08/06/22 Range/Units 17:59 04:51 04:51 RBC 3.75 L (4.30-5.90) m/uL Hgb 11.2 L (13.0-17.5) gm/dL Hct 34.6 L (39.0-53.0) % Lymphocytes # 0.4 L (1.0-4.8) k/uL Carbon Dioxide 33 H (22-30) mmol/L BUN 24 H (9-20) mg/dL Glucose 152 H (74-99) mg/dL POC Glucose (mg/dL) 128 H (70-110) mg/dL Calcium 7.8 L (8.4-10.2) mg/dL Iron (65-175) ug/dL TIBC (228-460) ug/dL Transferrin (204.0-354.0) mg/dL Total Protein 4.2 L (6.3-8.2) g/dL Albumin 2.2 L (3.5-5.0) g/dL 08/06/22 Range/Units 05:52 RBC (4.30-5.90) m/uL Hgb (13.0-17.5) gm/dL Hct (39.0-53.0) % Lymphocytes # (1.0-4.8) k/uL Carbon Dioxide (22-30) mmol/L BUN (9-20) mg/dL Glucose (74-99) mg/dL POC Glucose (mg/dL) 141 H (70-110) mg/dL Calcium (8.4-10.2) mg/dL Iron (65-175) ug/dL TIBC (228-460) ug/dL Transferrin (204.0-354.0) mg/dL Total Protein (6.3-8.2) g/dL Albumin (3.5-5.0) g/dL Microbiology - Last 24 Hours (Table) 08/03/22 21:00 Gram Stain - Final Sputum Sputum Culture - Final 08/02/22 21:47 Gram Stain - Final Abdomen Wound Culture - Final Strep agalactiae - (group b) Assessment and Plan (1) Diverticulitis of colon with perforation Current Visit: Yes Status: Acute Code(s): K57.20 - DVTRCLI OF LG INT W PERFORATION AND ABSCESS W/O BLEEDING SNOMED Code(s): 38839334 Plan: 1patient was in the hospital with abdominal pain has been diagnosed with a complicated diverticulitis failing medical therapy and the patient subsequently status post laparotomy sigmoid colectomy and diverting colostomy with concern fo r secondary peritonitis from perforated sigmoid diverticulitis and need to cover for enteric gram-negative both aerobes and anaerobes 2-patient abdominal cultures are currently group B strep 3-patient did have ileus requiring NG tube placement however the patient remains to be afebrile white count has been normal we will continue the patient on Zosyn and monitor his clinical course closely questions concerns answered Time with Patient: Less than 30
[2022-08-06 23:38] LABS: Glucose,Whole Blood 137 mg/dL (70-110)
[2022-08-07] MEDS: HYDROCORTISONE SUCCINATE 100 MG/2 ML VIAL IV SCH ×3 (00:34→21:13)
[2022-08-07 04:13] LABS: Basophils % (A) 0 %; Eosinophils # (A) 0.1 k/uL (0-0.7); Eosinophils % (A) 1 %; HCT 33.5 % (39.0-53.0); HGB 10.9 gm/dL (13.0-17.5); Lymphocytes # (A) 0.6 k/uL (1.0-4.8); Lymphocytes % (A) 10 %; MCH 29.7 pg (25.0-35.0); MCHC 32.4 g/dL (31.0-37.0); MCV 91.9 fL (80.0-100.0); Mean Platelet Volume 8.1; Monocytes # (A) 0.4 k/uL (0-1.0); Monocytes % (A) 6 %; Neutrophils # (A) 4.9 k/uL (1.3-7.7); Neutrophils % (A) 82 %; Platelet Count 333 k/uL (150-450); RBC 3.65 m/uL (4.30-5.90); RDW 13.7 % (11.5-15.5); WBC 6.1 k/uL (3.8-10.6)
[2022-08-07 04:28] LABS: Albumin 2.2 g/dL (3.5-5.0); Calcium 7.8 mg/dL (8.4-10.2); Magnesium 2.1 mg/dL (1.6-2.3); Phosphorus 3.3 mg/dL (2.5-4.5); Potassium 3.9 mmol/L (3.5-5.1); Total Bilirubin 0.4 mg/dL (0.2-1.3); Total Protein 4.2 g/dL (6.3-8.2)
[2022-08-07] MEDS: PIPERACILLIN-TAZOBACTAM 3.375 GM in SODIUM CHLORIDE 0.9% 100 ML IVPB SCH ×3 (05:00→21:12)
[2022-08-07] MEDS: LACTATED RINGERS 1,000 ML IV SCH ×2 (05:01→22:45)
[2022-08-07 05:47] LABS: Glucose,Whole Blood 121 mg/dL (70-110)
[2022-08-07] MEDS: HYDROmorphone 0.5 MG/0.5 ML SYRINGE IVP PRN ×3 (05:50→15:48)
[2022-08-07] MEDS: IPRATROPIUM-ALBUTEROL 3 ML NEB INHALATION SCH ×4 (07:54→21:00)
[2022-08-07] MEDS: FORMOTEROL FUMARATE 20 MCG/2 ML NEBU INHALATION SCH ×2 (07:55→21:00)
[2022-08-07] MEDS: BUDESONIDE 1 MG/2 ML NEBU INHALATION SCH ×2 (07:55→21:00)
[2022-08-07] MEDS: ENOXAPARIN 40 MG/0.4 ML SYRINGE SQ SCH (07:59)
[2022-08-07] MEDS: PANTOPRAZOLE 40 MG/10 ML VIAL IV SCH (08:00)
[2022-08-07] MEDS: 1: AMINO ACID 4.25%-D10W+LYTES*E* 1,000 ML 2: MVI, ADULT NO.4 WITH VIT K 10 ML, TRACE ( IV SCH ×3 (09:22)
--- NOTE | 2022-08-07 09:51 | P.PN ---
Subjective Progress Note Date: 08/07/22 Principal diagnosis: Status post Hogan's Patient status in the ICU overnight. Doing better today. He feels less bloated. No shortness of breath. White blood cell count normal at 6.1. NG output 450 overnight. He is afebrile. Objective - Vital Signs Vital signs: Vital Signs Temp 98.2 F 08/07/22 08:00 Pulse 82 08/07/22 09:00 Resp 15 08/07/22 09:00 BP 155/86 08/07/22 09:00 Pulse Ox 94 L 08/07/22 09:00 FiO2 35 08/03/22 12:00 Intake & Output 08/06/22 08/07/22 08/07/22 18:59 06:59 18:59 Intake Total 1530 2212.5 1130 Output Total 850 1295 200 Balance 680 917.5 930 Weight 73.4 kg Intake: IV 630 1265 190 Lactated Ringers 1,000 ml 530 240 40 @ 100 mls/hr IV .Q10H [facility] Rx#:[id number] Mvi, Adult No.4 with Vit 825 150 K 10 ml Trace (Conc-1Ml/ Dose) 1 ml In Amino Acid 4.25%-D10w+Lytes*E* 1,000 ml @ 75 mls/hr IV .BY DURATION [facility] Rx#: [id number] Piperacillin-Tazobactam 3 100 200 .375 gm In Sodium Chloride 0.9% 100 ml @ 25 mls/hr IVPB Q8H [facility] Rx#: [id number] Intake, IV Titration 900 947.5 940 Amount Amino Acid 4.25%-D10w+ 872.5 940 Lytes*E* 1,000 ml @ 75 mls/hr IV .BY DURATION [facility] Rx#:[id number] Mvi, Adult No.4 with Vit 900 75 K 10 ml Trace (Conc-1Ml/ Dose) 1 ml In Amino Acid 4.25%-D10w+Lytes*E* 1,000 ml @ 75 mls/hr IV .BY DURATION [facility] Rx#: [id number] Oral 0 Output: Gastric Drainage 350 450 Urine 500 695 200 Stool 150 Other: Voiding Method Indwelling Catheter Indwelling Catheter - Exam Abdomen: Soft, slightly less distended, mild incisional tenderness, wound with serosanguineous drainage - Labs CBC & Chem 7: 08/07/22 03:56 08/07/22 03:56 Labs: Abnormal Lab Results - Last 24 Hours (Table) 08/06/22 08/06/22 08/06/22 Range/Units 11:53 17:44 23:37 RBC (4.30-5.90) m/uL Hgb (13.0-17.5) gm/dL Hct (39.0-53.0) % Lymphocytes # (1.0-4.8) k/uL Carbon Dioxide (22-30) mmol/L BUN (9-20) mg/dL Glucose (74-99) mg/dL POC Glucose (mg/dL) 141 H 127 H 137 H (70-110) mg/dL Calcium (8.4-10.2) mg/dL Total Protein (6.3-8.2) g/dL Albumin (3.5-5.0) g/dL 08/07/22 08/07/22 08/07/22 Range/Units 03:56 03:56 05:46 RBC 3.65 L (4.30-5.90) m/uL Hgb 10.9 L (13.0-17.5) gm/dL Hct 33.5 L (39.0-53.0) % Lymphocytes # 0.6 L (1.0-4.8) k/uL Carbon Dioxide 37 H (22-30) mmol/L BUN 23 H (9-20) mg/dL Glucose 129 H (74-99) mg/dL POC Glucose (mg/dL) 121 H (70-110) mg/dL Calcium 7.8 L (8.4-10.2) mg/dL Total Protein 4.2 L (6.3-8.2) g/dL Albumin 2.2 L (3.5-5.0) g/dL Microbiology - Last 24 Hours (Table) 08/02/22 21:47 Anaerobic Culture - Final Abdomen Anaerobic Gm Negative Bacilli 08/03/22 21:00 Gram Stain - Final Sputum Sputum Culture - Final Assessment and Plan (1) Diverticulitis of colon with perforation Narrative/Plan: Patient doing better today. Continue antibiotics. Keep nasogastric tube in place. May transfer out of the ICU. We'll try to get patient into the chair today. Current Visit: Yes Status: Acute Code(s): K57.20 - DVTRCLI OF LG INT W PERFORATION AND ABSCESS W/O BLEEDING SNOMED Code(s): 61258982
--- NOTE | 2022-08-07 10:26 | P.PN ---
Subjective Progress Note Date: 08/07/22 Hospital Course: 72-year-old male with a past medical history of COPD home oxygen dependent on 3 L at all times, diverticulosis and GERD. He presented to the emergency department with a chief complaint of abdominal pain. CBC showing severe leukocytosis with WBC count of 18.7 with left shift with neutrophils of 17.1. BMP revealing mild prerenal azotemia with BUN of 21. Glucose was 132 and lactic acid was 1.3. Liver profile unremarkable. Troponin less than 0.012. Urinalysis was negative for infection. Covid PCR was negative. EKG was completed showing normal sinus rhythm and 99 bpm with no noted T-wave or ST abnormalities showing no signs of acute ischemia on personal review and in terpretation. Chest x-ray showing COPD changes but negative for acute cardiopulmonary process. CT abdomen and pelvis exam positive for acute sigmoid diverticulitis complicated by perforation and pockets of free intraperitoneal air measuring up to 5.5 cm accompanied by trace lower abdominal ascites, secondary small bowel ileus, small to moderate sized hiatal hernia, mild circumferential distal esophageal wall thickening, and prostamegaly with prostate measurement of 5.2 cm wide. Patient was admitted under Gen. surgery team and sound physicians consulted for medical management throughout hosp italization. Computed tomography scan showed diverticular perforation. So patient that had sigmoidectomy done emergently. After the procedure patient was kept intubated and he was transferred to the ICU. Patient now extubated, on nasal cannula. Still having significant NG output. Possibly secondary to ileus. Patient pending transfer to medical floor. Subjective: Patient seen and examined at bedside. No acute events overnight. Denies any significant abdominal pain. Denies any other complaints at the moment. Has a Art catheter in place, and NG tube and ostomy. Pertinent positives and negatives as discussed above, a complete review of systems was performed and all other systems are negative. Vitals Signs Reviewed. General: nontoxic, no distress, appears at stated age Derm: warm, dry, incisional site dry, clean, intact Head: atraumatic, normocephalic, symmetric Eyes: EOMI, no lid lag, anicteric sclera Mouth: no lip lesion, mucus membranes moist Cardiovascular: S1S2 reg, no murmur Lungs: CTA bilateral, no rhonchi, no rales , no accessory muscle use Abdominal: soft, nontender to palpation, no guarding, no appreciable organomegaly, ostomy, NG tube Ext: no gross muscle atrophy, no edema, no contractures Neuro: CN II-XI grossly intact, no focal neuro deficits Psych: Alert, oriented, appropriate affect Data Reviewed Today: Pertinent Labs: WBC 6.1, hemoglobin 10.9, creatinine 0.99, blood sugars range between 127-137 Imaging: No new imaging today Wound culture growing group B strep Assessment and Plan: Acute perforated diverticulitis with abscess Sigmoid colectomy with end colostomy on 08/02/2032 Sepsis on admission Anemia of chronic disease COPD on chronic prednisone, not in exacerbation Chronic hypoxemic respiratory failure on 2 L home O2 -Surgery note reviewed, continue NG tube to suction, transfer out of the ICU -Lactated Ringer 100 mL an hour -Protonix 40 mg IV daily -Pain control with IV Dilaudid as needed -Zofran as needed -ID following, Wound cultures growing group B strep, patient currently on IV Zosyn 3.375 g every 8 hours -Blood cultures negative growth to date -Pulmonology following, patient on stress dose steroids, decreased to 25 mg IV hydrocortisone every 12 hours -Continue bronchodilators -Hemoglobin stable DVT ppx: Lovenox Code status: Full code Anticipated discharge place: Pending clinical course Anticipated discharge time: Pending clinical course Objective - Vital Signs Vital signs: Vital Signs Temp 98.2 F 08/07/22 08:00 Pulse 92 08/07/22 10:00 Resp 18 08/07/22 10:00 BP 155/86 08/07/22 09:00 Pulse Ox 94 L 08/07/22 09:00 FiO2 35 08/03/22 12:00 Intake & Output 08/06/22 08/07/22 08/07/22 18:59 06:59 18:59 Intake Total 1530 2212.5 1320 Output Total 850 1295 330 Balance 680 917.5 990 Weight 73.4 kg Intake: IV 630 1265 380 Lactated Ringers 1,000 ml 530 240 80 @ 100 mls/hr IV .Q10H [facility] Rx#:[id number] Mvi, Adult No.4 with Vit 825 300 K 10 ml Trace (Conc-1Ml/ Dose) 1 ml In Amino Acid 4.25%-D10w+Lytes*E* 1,000 ml @ 75 mls/hr IV .BY DURATION [facility] Rx#: [id number] Piperacillin-Tazobactam 3 100 200 .375 gm In Sodium Chloride 0.9% 100 ml @ 25 mls/hr IVPB Q8H [facility] Rx#: [id number] Intake, IV Titration 900 947.5 940 Amount Amino Acid 4.25%-D10w+ 872.5 940 Lytes*E* 1,000 ml @ 75 mls/hr IV .BY DURATION [facility] Rx#:[id number] Mvi, Adult No.4 with Vit 900 75 K 10 ml Trace (Conc-1Ml/ Dose) 1 ml In Amino Acid 4.25%-D10w+Lytes*E* 1,000 ml @ 75 mls/hr IV .BY DURATION [facility] Rx#: [id number] Oral 0 Output: Gastric Drainage 350 450 Urine 500 695 330 Stool 150 Other: Voiding Method Indwelling Catheter Indwelling Catheter Indwelling Catheter - Labs CBC & Chem 7: 08/07/22 03:56 08/07/22 03:56 Labs: Abnormal Lab Results - Last 24 Hours (Table) 08/06/22 08/06/22 08/06/22 Range/Units 11:53 17:44 23:37 RBC (4.30-5.90) m/uL Hgb (13.0-17.5) gm/dL Hct (39.0-53.0) % Lymphocytes # (1.0-4.8) k/uL Carbon Dioxide (22-30) mmol/L BUN (9-20) mg/dL Glucose (74-99) mg/dL POC Glucose (mg/dL) 141 H 127 H 137 H (70-110) mg/dL Calcium (8.4-10.2) mg/dL Total Protein (6.3-8.2) g/dL Albumin (3.5-5.0) g/dL 08/07/22 08/07/22 08/07/22 Range/Units 03:56 03:56 05:46 RBC 3.65 L (4.30-5.90) m/uL Hgb 10.9 L (13.0-17.5) gm/dL Hct 33.5 L (39.0-53.0) % Lymphocytes # 0.6 L (1.0-4.8) k/uL Carbon Dioxide 37 H (22-30) mmol/L BUN 23 H (9-20) mg/dL Glucose 129 H (74-99) mg/dL POC Glucose (mg/dL) 121 H (70-110) mg/dL Calcium 7.8 L (8.4-10.2) mg/dL Total Protein 4.2 L (6.3-8.2) g/dL Albumin 2.2 L (3.5-5.0) g/dL Microbiology - Last 24 Hours (Table) 08/02/22 21:47 Anaerobic Culture - Final Abdomen Anaerobic Gm Negative Bacilli 08/03/22 21:00 Gram Stain - Final Sputum Sputum Culture - Final
--- NOTE | 2022-08-07 11:34 | P.PN ---
Subjective Progress Note Date: 08/07/22 Principal diagnosis: Sigmoid diverticulitis with perforation and abscess I was asked to evaluate this patient because of his advanced COPD and ongoing abdominal complications. The patient was seen in the emergency department. The patient is known to have diverticulosis he came in for an acute abdominal pain this morning. CAT scan of the abdomen was done and the patient was found to have acute sigmoid diverticulitis. This was a comp acute diverticulitis as perforation suspected and the patient had pockets of free intraperitoneal air measuring up to 5.5 cm in size. There is also trace lower abdominal ascites. No evidence of any abscess formation. Is also small bowel ileus. There is moderate size hiatal hernia also. The patient has a large prostate. Is known to have prostate cancer. The patient is also known to have advanced COPD. The patient is auction dependent. The patient is steroid dependent and is taking 10 mg of prednisone on a daily basis on outpatient basis. He has been followed up through our office. He has exertional dyspnea which is chronic in his significant limitation in exercise capacity because of his advanced COPD. No chest pain. No worsening shortness of breath. No swelling lower extremities. No previous history of DVT or pulmonary embolism. No nausea or emesis. No aspiration. GI surgeries on the case. Currently is on antibiotics. No plans for any surgery at this point in time. Blood work shows a WBC count of 18, he moglobin 13, normal cognition profile, BUN is 20 over the creatinine of 0.9. LFTs are normal. Lactic acid level is at 1.3. On today's evaluation of 07/30/2022, the patient's abdomen is less tender. The patient remains nothing by mouth. No worsening shortness of breath. The patient is on IV Zosyn. The patient is going to be treated conservatively. White cell count is at 14 with a hemoglobin of 11.1 and a platelet count of 245 noted the white cycles lower compared to yesterday. BUN is at 21 with a creatinine of 1.3. Sodium is at 143. Awake and alert and communicating. He remains on oxygen at 2 L/m nasal cannula. On 07/31/2022, the patient is doing well. No specific complaints. Abdominal pain is subsiding gradually. His COPD remains on IV Zosyn. No plans for any surgical intervention this point in time. The patient is known to have advanced COPD and the patient also has oxygen steroid dependent COPD and the patient is currently on hydrocortisone. IV fluids are in the form of D5 half-normal saline at rate of 100 mL an hour. The white cell count is down to 8.2 with hemoglobin 11.5 and a platelet count of 15. BUN is at 60 with a creatinine of 1 and his sodium level is at 137. The patient is seen today 08/01/2022 in follow-up on the regular medical floor. He is currently sitting up in bed. Awake and alert in no acute distress. Maintaining O2 saturations in the 90s on 2 L/m per nasal cannula. Currently on D5.45 normal saline at 100 ML's per hour. He is continued on Zosyn. His abdominal discomfort is gradually improving. Follow-up chest x-ray continues to show diffuse severe emphysematous changes with coarsened interstitium suspicious for chronic interstitial lung disease. Blood culture reveals no growth. White count 8.1. Hemoglobin 10.5. Platelets 225. Sodium 142. Potassium 3.9. Bicarb 26. BUN 11. Creatinine 1.0. Glucose 165. ProBNP 1500. Troponin negative 1. AST 12. ALT 13. Alk phos 39. Continued on DuoNeb inhalations. Lovenox for DVT prophylaxis. Remains on Solu-Cortef. The patient is seen today 08/02/2022 in follow-up on the regular medical floor. He is awake and alert in no acute distress. Resting fairly comfortably in bed. Maintaining good O2 saturations in the 90s on 2 L/m per nasal cannula. He is receiving D5 and half-normal saline at 100 ML's per hour. Remains on antibiotics in the form of Zosyn. Lovenox for DVT prophylaxis. Continued on Solu-Cortef. His abdominal discomfort is waxing and waning. A little more tender today. He remains nothing by mouth. Blood cultures revealed no growth. Blood glucose 151. Reevaluated today on 08/03/22, patient underwent sigmoid colectomy and end colostomy yesterday by Dr. Moyer mostly because of his sigmoid diverticulitis with perforation and abscess, patient came back to the ICU on mechanical ventilation. Remains intubated and mechanically ventilated. Patient is known to have severe end-stage COPD FEV1 is no more than 26%, however the benefits of the surgery obviously outweighed the risks. And surgery had to be done yesterday because the patient continued to have significant abdominal pain and tenderness. Patient is now on assist control rate of 16, volume 400 FiO2 50% and PEEP of 5, ABG showed a pO2 of 251 pCO2 42 pH of 7.45. His chest x-ray is showing minimal atelectasis, no infiltrate, no evidence of congestive heart failure, his electrolytes are normal renal profile is normal, CBC is relatively unremarkable. Hence I cut down his FiO2 to 35%, patient remains on enteral are at 100 mL an hour he is also on propofol at 50 mcg/kg/m, I have recommended stopping propofol, and was the patient is awake we will recommend checking weani ng parameters, and if reasonable proceed with a pressure support and CPAP with a pressure support of 10, follow-up ABG in 1 hour after being on pressure support and CPAP, and we will likely consider extubation later today. Reevaluated today on 08/04/2022, patient remains in the ICU, he is status post sigmoid colectomy and end colostomy with severe underlying COPD. FEV1 is in the range of 26%, surprisingly the patient is doing better than expected. Patient remains on 4 L nasal cannula with adequate O2 saturation, his ostomy is functioning well, remains on Zosyn, his also on TPN at 50 mL per hour. WBC count is 9.1 hemoglobin is 10.9. Basic metabolic profile is normal renal profile is normal. Chest x-ray yesterday showed minimal interstitial findings and COPD Reevaluated today on 08/05/2022, patient remains in the ICU, doing well, relatively asymptomatic, his ostomy is functioning well, pulmonary status is relatively stable in spite of its severity patient denies any abdominal pain, no shortness of breath, his labs were relatively normal including normal CBC and normal electrolytes normal renal profile hence I will transfer the patient out of the ICU to a regular medical floor. Reevaluated today on 08/06/2022, patient had his nasogastric tube removed yesterday, however he developed abdominal distention and a nasogastric tube was placed back again today significant amount of fluid was noted are of the stomach over 900 mL. Patient felt better nonetheless he remains a bit bloated, now he has a nasogastric tube back in place. Considering his symptoms I'm recommending that we keep him in the ICU today. Pulmonary-[facility] he is doing well in spite of his severe underlying COPD. Labs today showed relatively normal CBC and a relatively normal electrolytes bicarb is 33 BUN is 24 creatinine 0.89. Patient was seen by surgery today/Dr. gurrola, and he is recommending to keep the nasogastric tube in place. Patient was reevaluated today on 08/07/2022, feels less bloated, nasogastric tube remains in place and functional, his colostomy is also functional, he had 450 of NG output overnight. He is afebrile, WBC count is 6.1. Pulmonary-[facility] he is about the same, he has severe COPD but surprisingly not as symptomatic as expected. WBC count 6.1 hemoglobin 10.9 lites are normal renal profile is normal bicarb is 37 Objective - Vital Signs Vital signs: Vital Signs Temp 98.2 F 08/07/22 08:00 Pulse 92 08/07/22 10:00 Resp 18 08/07/22 10:00 BP 155/86 08/07/22 09:00 Pulse Ox 94 L 08/07/22 09:00 FiO2 35 08/03/22 12:00 Intake & Output 08/06/22 08/07/22 08/07/22 18:59 06:59 18:59 Intake Total 1530 2212.5 1320 Output Total 850 1295 330 Balance 680 917.5 990 Weight 73.4 kg Intake: IV 630 1265 380 Lactated Ringers 1,000 ml 530 240 80 @ 100 mls/hr IV .Q10H [facility] Rx#:[id number] Mvi, Adult No.4 with Vit 825 300 K 10 ml Trace (Conc-1Ml/ Dose) 1 ml In Amino Acid 4.25%-D10w+Lytes*E* 1,000 ml @ 75 mls/hr IV .BY DURATION [facility] Rx#: [id number] Piperacillin-Tazobactam 3 100 200 .375 gm In Sodium Chloride 0.9% 100 ml @ 25 mls/hr IVPB Q8H [facility] Rx#: [id number] Intake, IV Titration 900 947.5 940 Amount Amino Acid 4.25%-D10w+ 872.5 940 Lytes*E* 1,000 ml @ 75 mls/hr IV .BY DURATION [facility] Rx#:[id number] Mvi, Adult No.4 with Vit 900 75 K 10 ml Trace (Conc-1Ml/ Dose) 1 ml In Amino Acid 4.25%-D10w+Lytes*E* 1,000 ml @ 75 mls/hr IV .BY DURATION [facility] Rx#: [id number] Oral 0 Output: Gastric Drainage 350 450 Urine 500 695 330 Stool 150 Other: Voiding Method Indwelling Catheter Indwelling Catheter Indwelling Catheter - Exam Physical Exam: Revealed a 72-year-old white male in no distress on 3 L nasal cannula, not in distress. Head: Atraumatic normocephalic. HEENT:[Neck is supple.] [No neck masses.] [No thyromegaly.] [No JVD.] Endotracheal tube and nasogastric tube are intact. Chest: [Symmetrical chest expansion, diminished breath sound bilaterally no crackles or rhonchi or wheezes Cardiac Exam: [Normal S1 and S2, no S3 gallop, no murmur.] Abdomen: Postsurgical, slightly distended minimal tenderness , colostomy seems to be intact. Functioning well. Extremities: [No clubbing, no edema, no cyanosis.] Neurological Exam: Alert and oriented 3 no Focal deficits Psychiatric: Normal mood affect and normal mental status examination. - Labs CBC & Chem 7: 08/07/22 03:56 08/07/22 03:56 Labs: Abnormal Lab Results - Last 24 Hours (Table) 08/06/22 08/06/22 08/06/22 Range/Units 11:53 17:44 23:37 RBC (4.30-5.90) m/uL Hgb (13.0-17.5) gm/dL Hct (39.0-53.0) % Lymphocytes # (1.0-4.8) k/uL Carbon Dioxide (22-30) mmol/L BUN (9-20) mg/dL Glucose (74-99) mg/dL POC Glucose (mg/dL) 141 H 127 H 137 H (70-110) mg/dL Calcium (8.4-10.2) mg/dL Total Protein (6.3-8.2) g/dL Albumin (3.5-5.0) g/dL 08/07/22 08/07/22 08/07/22 Range/Units 03:56 03:56 05:46 RBC 3.65 L (4.30-5.90) m/uL Hgb 10.9 L (13.0-17.5) gm/dL Hct 33.5 L (39.0-53.0) % Lymphocytes # 0.6 L (1.0-4.8) k/uL Carbon Dioxide 37 H (22-30) mmol/L BUN 23 H (9-20) mg/dL Glucose 129 H (74-99) mg/dL POC Glucose (mg/dL) 121 H (70-110) mg/dL Calcium 7.8 L (8.4-10.2) mg/dL Total Protein 4.2 L (6.3-8.2) g/dL Albumin 2.2 L (3.5-5.0) g/dL Microbiology - Last 24 Hours (Table) 08/02/22 21:47 Anaerobic Culture - Final Abdomen Anaerobic Gm Negative Bacilli 08/03/22 21:00 Gram Stain - Final Sputum Sputum Culture - Final Assessment and Plan Assessment: Impression: Acute perforated sigmoid diverticulitis with abscess, status post sigmoid colectomy and end colostomy postoperative day #5 Severe underlying COPD, extubated on 01/03/2023, tolerated the extubation well Chronic hypoxic with shortness failure, patient is normally on oxygen at home History of diverticulosis Ex-smoker, quit smoking 2 years ago History of prostate cancer History of underlying GERD Recent hospitalization for acute COPD exacerbation back in June Suspect postoperative ileus hence will continue to monitor the patient in the ICU for the next 24 hours, and continue nasogastric tube in place Recommendation: Transfer patient to a medical surgical floor today. Continue nasogastric for now unless surgery decides to remove it Continue oxygen and titrate accordingly Continue bronchodilators Continue GI and DVT prophylaxis. Keep nothing by mouth for now. Continue hydrocortisone 25 mg IV push twice a day eventually transitioned to prednisone orally once the patient could have oral meds. We will continue to follow Time with Patient: Less than 30
[2022-08-07 12:18] LABS: Glucose,Whole Blood 117 mg/dL (70-110)
--- NOTE | 2022-08-07 15:04 | P.PN ---
Subjective Progress Note Date: 08/07/22 Principal diagnosis: Perforated diverticulitis and peritonitis Patient is a 72-year-old male presenting to the hospital abdominal pain has been diagnosed with acute diverticulitis with perforation treated medically did not have improvement subsequently was taken to the OR on 08/02/2022 and the patient is status post laparotomy; colectomy and diverting colostomy. On today's evaluation that is 08/07/2022, the patient continues to be afebrile, patient has been moved out of the ICU, the patient is breathing comfortably, patient still have the NG denies any further nausea vomiting abdominal pain is currently controlled no chest pain shortness of breath occasional cough Objective - Vital Signs Vital signs: Vital Signs Temp 98.4 F 08/07/22 14:35 Pulse 79 08/07/22 14:35 Resp 18 08/07/22 14:35 BP 133/86 08/07/22 14:35 Pulse Ox 97 08/07/22 14:35 FiO2 35 08/03/22 12:00 Intake & Output 08/06/22 08/07/22 08/07/22 18:59 06:59 18:59 Intake Total 1530 2212.5 1320 Output Total 850 1295 330 Balance 680 917.5 990 Weight 73.4 kg Intake: IV 630 1265 380 Lactated Ringers 1,000 ml 530 240 80 @ 100 mls/hr IV .Q10H [facility] Rx#:[id number] Mvi, Adult No.4 with Vit 825 300 K 10 ml Trace (Conc-1Ml/ Dose) 1 ml In Amino Acid 4.25%-D10w+Lytes*E* 1,000 ml @ 75 mls/hr IV .BY DURATION [facility] Rx#: [id number] Piperacillin-Tazobactam 3 100 200 .375 gm In Sodium Chloride 0.9% 100 ml @ 25 mls/hr IVPB Q8H [facility] Rx#: [id number] Intake, IV Titration 900 947.5 940 Amount Amino Acid 4.25%-D10w+ 872.5 940 Lytes*E* 1,000 ml @ 75 mls/hr IV .BY DURATION [facility] Rx#:[id number] Mvi, Adult No.4 with Vit 900 75 K 10 ml Trace (Conc-1Ml/ Dose) 1 ml In Amino Acid 4.25%-D10w+Lytes*E* 1,000 ml @ 75 mls/hr IV .BY DURATION [facility] Rx#: [id number] Oral 0 Output: Gastric Drainage 350 450 Urine 500 695 330 Stool 150 Other: Voiding Method Indwelling Catheter Indwelling Catheter Indwelling Catheter - Exam GENERAL DESCRIPTION: An elderly male up in the chair in no distress RESPIRATORY SYSTEM: Unlabored breathing , decreased breath sounds at bases HEART: S1 S2 regular rate and rhythm , ABDOMEN: Soft , no tenderness EXTREMITIES: No edema feet - Labs CBC & Chem 7: 08/07/22 03:56 08/07/22 03:56 Labs: Abnormal Lab Results - Last 24 Hours (Table) 08/06/22 08/06/22 08/07/22 Range/Units 17:44 23:37 03:56 RBC (4.30-5.90) m/uL Hgb (13.0-17.5) gm/dL Hct (39.0-53.0) % Lymphocytes # (1.0-4.8) k/uL Carbon Dioxide 37 H (22-30) mmol/L BUN 23 H (9-20) mg/dL Glucose 129 H (74-99) mg/dL POC Glucose (mg/dL) 127 H 137 H (70-110) mg/dL Calcium 7.8 L (8.4-10.2) mg/dL Total Protein 4.2 L (6.3-8.2) g/dL Albumin 2.2 L (3.5-5.0) g/dL 08/07/22 08/07/22 08/07/22 Range/Units 03:56 05:46 12:17 RBC 3.65 L (4.30-5.90) m/uL Hgb 10.9 L (13.0-17.5) gm/dL Hct 33.5 L (39.0-53.0) % Lymphocytes # 0.6 L (1.0-4.8) k/uL Carbon Dioxide (22-30) mmol/L BUN (9-20) mg/dL Glucose (74-99) mg/dL POC Glucose (mg/dL) 121 H 117 H (70-110) mg/dL Calcium (8.4-10.2) mg/dL Total Protein (6.3-8.2) g/dL Albumin (3.5-5.0) g/dL Microbiology - Last 24 Hours (Table) 08/02/22 21:47 Anaerobic Culture - Final Abdomen Anaerobic Gm Negative Bacilli Assessment and Plan (1) Diverticulitis of colon with perforation Current Visit: Yes Status: Acute Code(s): K57.20 - DVTRCLI OF LG INT W PERFORATION AND ABSCESS W/O BLEEDING SNOMED Code(s): 65269271 Plan: 1patient was in the hospital with abdominal pain has been diagnosed with a complicated diverticulitis failing medical therapy and the patient subsequently status post laparotomy sigmoid colectomy and diverting colostomy with concern for secondary peritonitis from perforated sigmoid diverticulitis and need to cover for enteric gram-negative both aerobes and anaerobes 2-patient abdominal cultures are currently group B strep and anaerobic gram- negative bacilli 3-patient remains to be afebrile white count has been normal, the patient is currently being treated with Zosyn which will be continued and monitor his clinical course closely Time with Patient: Less than 30
[2022-08-07 18:02] LABS: Glucose,Whole Blood 116 mg/dL (70-110)
[2022-08-07] MEDS: HYDROmorphone 1 MG/ML 1 ML SYRINGE IVP PRN (21:11)
[2022-08-07 23:21] LABS: Glucose,Whole Blood 104 mg/dL (70-110)
[2022-08-08] MEDS: HYDROmorphone 1 MG/ML 1 ML SYRINGE IVP PRN ×3 (03:24→20:09)
[2022-08-08 05:42] LABS: Glucose,Whole Blood 124 mg/dL (70-110)
[2022-08-08 06:07] LABS: ALT 25 U/L (4-49); AST 30 U/L (17-59); African American GFR (CKD) >90 (>60 ml/min/1.73 sqM); Albumin 2.2 g/dL (3.5-5.0); Albumin/Globulin Ratio 1.1; Alkaline Phosphatase 41 U/L (38-126); Anion Gap 0 mmol/L; Blood Urea Nitrogen 25 mg/dL (9-20); Calcium 7.7 mg/dL (8.4-10.2); Carbon Dioxide 36 mmol/L (22-30); Chloride 101 mmol/L (98-107); Glucose 134 mg/dL (74-99); Magnesium 2.1 mg/dL (1.6-2.3); Non-African American GFR(CKD) 80 (>60 ml/min/1.73 sqM); Phosphorus 3.5 mg/dL (2.5-4.5); Sodium 137 mmol/L (137-145); Total Bilirubin 0.6 mg/dL (0.2-1.3); Total Protein 4.2 g/dL (6.3-8.2)
[2022-08-08] MEDS: LACTATED RINGERS 1,000 ML IV SCH (06:21)
[2022-08-08] MEDS: PIPERACILLIN-TAZOBACTAM 3.375 GM in SODIUM CHLORIDE 0.9% 100 ML IVPB SCH ×3 (06:21→20:08)
[2022-08-08] MEDS: ENOXAPARIN 40 MG/0.4 ML SYRINGE SQ SCH (08:00)
[2022-08-08] MEDS: HYDROCORTISONE SUCCINATE 100 MG/2 ML VIAL IV SCH ×2 (08:01→20:08)
[2022-08-08] MEDS: PANTOPRAZOLE 40 MG/10 ML VIAL IV SCH (08:01)
[2022-08-08] MEDS: BUDESONIDE 1 MG/2 ML NEBU INHALATION SCH ×2 (08:42→21:01)
[2022-08-08] MEDS: IPRATROPIUM-ALBUTEROL 3 ML NEB INHALATION SCH ×4 (08:42→21:01)
[2022-08-08] MEDS: FORMOTEROL FUMARATE 20 MCG/2 ML NEBU INHALATION SCH ×2 (08:42→21:01)
--- NOTE | 2022-08-08 11:51 | P.PN ---
Subjective Progress Note Date: 08/08/22 I was asked to evaluate this patient because of his advanced COPD and ongoing abdominal complications. The patient was seen in the emergency department. The patient is known to have diverticulosis he came in for an acute abdominal pain this morning. CAT scan of the abdomen was done and the patient was found to have acute sigmoid diverticulitis. This was a comp acute diverticulitis as perforation suspected and the patient had pockets of free intraperitoneal air measuring up to 5.5 cm in size. There is also trace lower abdominal ascites. No evidence of any abscess formation. Is also small bowel ileus. There is moderate size hiatal hernia also. The patient has a large prostate. Is known to have prostate cancer. The patient is also known to have advanced COPD. The patient is auction dependent. The patient is steroid dependent and is taking 10 mg of prednisone on a daily basis on outpatient basis. He has been followed up through our office. He has exertional dyspnea which is chronic in his significant limitation in exercise capacity because of his advanced COPD. No chest pain. No worsening shortness of breath. No swelling lower extremities. No previous history of DVT or pulmonary embolism. No nausea or emesis. No aspiration. GI surgeries on the case. Currently is on antibiotics. No plans for any surgery at this point in time. Blood work shows a WBC count of 18, he moglobin 13, normal cognition profile, BUN is 20 over the creatinine of 0.9. LFTs are normal. Lactic acid level is at 1.3. On today's evaluation of 07/30/2022, the patient's abdomen is less tender. The patient remains nothing by mouth. No worsening shortness of breath. The patient is on IV Zosyn. The patient is going to be treated conservatively. White cell count is at 14 with a hemoglobin of 11.1 and a platelet count of 245 noted the white cycles lower compared to yesterday. BUN is at 21 with a creatinine of 1.3. Sodium is at 143. Awake and alert and communicating. He remains on oxygen at 2 L/m nasal cannula. On 07/31/2022, the patient is doing well. No specific complaints. Abdominal pain is subsiding gradually. His COPD remains on IV Zosyn. No plans for any surgical intervention this point in time. The patient is known to have advanced COPD and the patient also has oxygen steroid dependent COPD and the patient is currently on hydrocortisone. IV fluids are in the form of D5 half-normal saline at rate of 100 mL an hour. The white cell count is down to 8.2 with hemoglobin 11.5 and a platelet count of 15. BUN is at 60 with a creatinine of 1 and his sodium level is at 137. The patient is seen today 08/01/2022 in follow-up on the regular medical floor. He is currently sitting up in bed. Awake and alert in no acute distress. Maintaining O2 saturations in the 90s on 2 L/m per nasal cannula. Currently on D5.45 normal saline at 100 ML's per hour. He is continued on Zosyn. His abdominal discomfort is gradually improving. Follow-up chest x-ray continues to show diffuse severe emphysematous changes with coarsened interstitium suspicious for chronic interstitial lung disease. Blood culture reveals no growth. White count 8.1. Hemoglobin 10.5. Platelets 225. Sodium 142. Potassium 3.9. Bicarb 26. BUN 11. Creatinine 1.0. Glucose 165. ProBNP 1500. Troponin negative 1. AST 12. ALT 13. Alk phos 39. Continued on DuoNeb inhalations. Lovenox for DVT prophylaxis. Remains on Solu-Cortef. The patient is seen today 08/02/2022 in follow-up on the regular medical floor. He is awake and alert in no acute distress. Resting fairly comfortably in bed. Maintaining good O2 saturations in the 90s on 2 L/m per nasal cannula. He is receiving D5 and half-normal saline at 100 ML's per hour. Remains on antibiotics in the form of Zosyn. Lovenox for DVT prophylaxis. Continued on Solu-Cortef. His abdominal discomfort is waxing and waning. A little more tender today. He remains nothing by mouth. Blood cultures revealed no growth. Blood glucose 151. Reevaluated today on 08/03/22, patient underwent sigmoid colectomy and end colostomy yesterday by Dr. Moyer mostly because of his sigmoid diverticulitis with perforation and abscess, patient came back to the ICU on mechanical ventilation. Remains intubated and mechanically ventilated. Patient is known to have severe end-stage COPD FEV1 is no more than 26%, however the benefits of the surgery obviously outweighed the risks. And surgery had to be done yesterday because the patient continued to have significant abdominal pain and tenderness. Patient is now on assist control rate of 16, volume 400 FiO2 50% and PEEP of 5, ABG showed a pO2 of 251 pCO2 42 pH of 7.45. His chest x-ray is showing minimal atelectasis, no infiltrate, no evidence of congestive heart failure, his electrolytes are normal renal profile is normal, CBC is relatively unremarkable. Hence I cut down his FiO2 to 35%, patient remains on enteral are at 100 mL an hour he is also on propofol at 50 mcg/kg/m, I have recommended stopping propofol, and was the patient is awake we will recommend checking weani ng parameters, and if reasonable proceed with a pressure support and CPAP with a pressure support of 10, follow-up ABG in 1 hour after being on pressure support and CPAP, and we will likely consider extubation later today. Reevaluated today on 08/04/2022, patient remains in the ICU, he is status post sigmoid colectomy and end colostomy with severe underlying COPD. FEV1 is in the range of 26%, surprisingly the patient is doing better than expected. Patient remains on 4 L nasal cannula with adequate O2 saturation, his ostomy is functioning well, remains on Zosyn, his also on TPN at 50 mL per hour. WBC count is 9.1 hemoglobin is 10.9. Basic metabolic profile is normal renal profile is normal. Chest x-ray yesterday showed minimal interstitial findings and COPD Reevaluated today on 08/05/2022, patient remains in the ICU, doing well, relatively asymptomatic, his ostomy is functioning well, pulmonary status is relatively stable in spite of its severity patient denies any abdominal pain, no shortness of breath, his labs were relatively normal including normal CBC and normal electrolytes normal renal profile hence I will transfer the patient out of the ICU to a regular medical floor. Reevaluated today on 08/06/2022, patient had his nasogastric tube removed yesterday, however he developed abdominal distention and a nasogastric tube was placed back again today significant amount of fluid was noted are of the stomach over 900 mL. Patient felt better nonetheless he remains a bit bloated, now he has a nasogastric tube back in place. Considering his symptoms I'm recommending that we keep him in the ICU today. Pulmonary-wharton he is doing well in spite of his severe underlying COPD. Labs today showed relatively normal CBC and a relatively normal electrolytes bicarb is 33 BUN is 24 creatinine 0.89. Patient was seen by surgery today/Dr. gurrola, and he is recommending to keep the nasogastric tube in place. Patient was reevaluated today on 08/07/2022, feels less bloated, nasogastric tube remains in place and functional, his colostomy is also functional, he had 450 of NG output overnight. He is afebrile, WBC count is 6.1. Pulmonary-wharton he is about the same, he has severe COPD but surprisingly not as symptomatic as expected. WBC count 6.1 hemoglobin 10.9 lites are normal renal profile is normal bicarb is 37 The patient is seen today 08/08/2022 in follow-up on the regular medical floor. He has moved out of the ICU yesterday. He is awake and alert in no acute distre ss. Maintaining good O2 saturations in the mid 90s on 3 L/m per nasal cannula. Afebrile. Hemodynamically stable. Nasogastric tube remains in place. Abdominal wound cultures are positive for gram-negative bacilli. Sputum culture revealed no growth. Blood culture reveals no growth. Sodium 137. Potassium 4.0. Bicarb 36. BUN 25. Creatinine 0.95. Glucose 134. She is continued on DuoNeb inhalations, Pulmicort and Perforomist inhalations, Solu-Cortef. Lovenox for DVT prophylaxis. Remains on TPN for nutritional support at 75 ML's per hour. Antibiotics in the form of Zosyn. Objective - Vital Signs Vital signs: Vital Signs Temp 97.9 F 08/08/22 07:42 Pulse 84 08/08/22 11:41 Resp 18 08/08/22 09:00 BP 127/74 08/08/22 07:42 Pulse Ox 96 08/08/22 08:42 FiO2 35 08/03/22 12:00 Intake & Output 08/07/22 08/08/22 08/08/22 18:59 06:59 18:59 Intake Total 1320 Output Total 540 1500 0 Balance 780 -1500 0 Intake: IV 380 Lactated Ringers 1,000 ml 80 @ 100 mls/hr IV .Q10H [facility] Rx#:[id number] Mvi, Adult No.4 with Vit 300 K 10 ml Trace (Conc-1Ml/ Dose) 1 ml In Amino Acid 4.25%-D10w+Lytes*E* 1,000 ml @ 75 mls/hr IV .BY DURATION [facility] Rx#: [id number] Intake, IV Titration 940 Amount Amino Acid 4.25%-D10w+ 940 Lytes*E* 1,000 ml @ 75 mls/hr IV .BY DURATION [facility] Rx#:[id number] Output: Urine 540 1500 Stool 0 0 0 Other: Voiding Method Indwelling Catheter Indwelling Catheter Indwelling Catheter - Exam GENERAL EXAM: Alert, pleasant 72-year-old male, on 3 L nasal cannula, fairly comfortable in no apparent distress. HEAD: Normocephalic. EYES: Normal reaction of pupils, equal size. NOSE: Nasogastric tube remains in place. Clear with pink turbinates. THROAT: No erythema or exudates. NECK: No masses, no JVD. CHEST: No chest wall deformity. LUNGS: Equal air entry with bilateral end expiratory wheeze, diminished. CVS: S1 and S2 normal with no audible murmur, regular rhythm. ABDOMEN: Postsurgical changes. Ostomy intact. Functioning. SPINE: No scoliosis or deformity SKIN: No rashes CENTRAL NERVOUS SYSTEM: No focal deficits, tone is normal in all 4 extremities. EXTREMITIES: There is no peripheral edema. No clubbing, no cyanosis. Peripheral pulses are intact. - Labs CBC & Chem 7: 08/07/22 03:56 08/08/22 05:17 Labs: Abnormal Lab Results - Last 24 Hours (Table) 08/07/22 08/07/22 08/08/22 Range/Units 12:17 18:02 05:17 Carbon Dioxide 36 H (22-30) mmol/L BUN 25 H (9-20) mg/dL Glucose 134 H (74-99) mg/dL POC Glucose (mg/dL) 117 H 116 H (70-110) mg/dL Calcium 7.7 L (8.4-10.2) mg/dL Total Protein 4.2 L (6.3-8.2) g/dL Albumin 2.2 L (3.5-5.0) g/dL 08/08/22 Range/Units 05:40 Carbon Dioxide (22-30) mmol/L BUN (9-20) mg/dL Glucose (74-99) mg/dL POC Glucose (mg/dL) 124 H (70-110) mg/dL Calcium (8.4-10.2) mg/dL Total Protein (6.3-8.2) g/dL Albumin (3.5-5.0) g/dL Assessment and Plan Assessment: Acute perforated sigmoid diverticulitis with abscess, status post sigmoid colectomy and end colostomy postoperative day #6. Nasogastric tube remains in place History of diverticulosis Recent hospitalization for an acute COPD exacerbation back in June 2022, treated and the patient has recovered Advanced COPD with an FEV1 of 26% of predicted, the patient is chronically oxygen and steroid dependent taking prednisone 10 mg by mouth daily. Ex-smoker and the patient quit smoking 2 years ago Chronic hypoxic respiratory failure maternal O2 at 2 L nasal cannula Prostate cancer Acid reflux Plan: The patient was seen and evaluated Medications and labs reviewed Currently stable and on 3 L nasal cannula Continue bronchodilators, Zosyn Remains nothing by mouth TPN for nutritional support Continue Solu-Cortef Lovenox for DVT prophylaxis Increase his activity as tolerated We will continue to follow I have personally seen and examined the patient, performed the documentation and the assessment and plan as written. Number of minutes spent on the visit: 10.
[2022-08-08 12:04] LABS: Glucose,Whole Blood 129 mg/dL (70-110)
--- NOTE | 2022-08-08 12:57 | P.PN ---
Subjective Progress Note Date: 08/08/22 72-year-old male with a past medical history of COPD home oxygen dependent on 3 L at all times, diverticulosis and GERD. He presented to the emergency department with a chief complaint of abdominal pain. CBC showing severe leukocytosis with WBC count of 18.7 with left shift with neutrophils of 17.1. BMP revealing mild prerenal azotemia with BUN of 21. Glucose was 132 and lactic acid was 1.3. Liver profile unremarkable. Troponin less than 0.012. Urinalysis was negative for infection. COVID PCR was negative. EKG was completed showing normal sinus rhythm and 99 bpm with no noted T-wave or ST a bnormalities showing no signs of acute ischemia. Chest x-ray showing COPD changes but negative for acute cardiopulmonary process. CT AP positive for acute sigmoid diverticulitis complicated by perforation and pockets of free intraperitoneal air measuring up to 5.5 cm accompanied by trace lower abdominal ascites, secondary small bowel ileus, small to moderate sized hiatal hernia, mild circumferential distal esophageal wall thickening, and prostamegaly with prostate measurement of 5.2 cm. Patient was admitted under General surgery team and [facility] consulted for medical management throughout hospitalization. Patient underwent sigmoidectomy on 08/02. Patient was extubated on 08/03. 08/08 Patient was seen and examined. Transferred out of ICU yesterday. He is having 800 cc output from his NG tube. He complains of chronic cough. No nausea or vomiting today. Wound cultures showing gram-negative bacilli. BMP shows a bicarb of 36, BUN of 25, glucose 134, albumin of 2.2 and calcium of 7.7. General: non toxic, no distress, appears at stated age Derm: warm, dry Head: atraumatic, normocephalic, symmetric, NG tube in place Eyes: EOMI, no lid lag, anicteric sclera Cardiovascular: S1S2 reg, no murmur Lungs: End expiratory wheezing bilateral, no rhonchi, no rales , no accessory muscle use Abdominal: distended, no guarding, no appreciable organomegaly, ostomy intact Ext: no gross muscle atrophy, no edema, no contractures Neuro: no focal neuro deficits Psych: Alert, oriented, appropriate affect Assessment and Plan: Acute perforated diverticulitis with abscess Sigmoid colectomy with end colostomy on 08/02/2032 Sepsis on admission Anemia of chronic disease COPD on chronic prednisone, not in exacerbation Chronic hypoxemic respiratory failure on 2 L home O2 Based on my assessment of this patient, this patient meets a high complexity level of care. Patient has history of acute perforated diverticulitis with abscess status post sigmoid colectomy with end colostomy on 08/02/2032. He continues to have significant output from his NG tube. Wound culture growing gram negative bacilli. Receiving TPN for nutrition. Antibiotics: Zosyn 3.375 g IV Q8H Continue Protonix 40 mg IV QD. Zofran 4 mg Q8H PRN for N/V. Pain control: Dilaudid PRN for severe pain. Bronchodilators: DuoNeb 0.5mg-3mg/3ml scheduled and as needed for SOB and wheezing. Performist 20 mcg INH BID. Steroids: SoluCortef 25 mg IV BID. DVT ppx: Lovenox SQ Code status: Full code Anticipated discharge place: Pending clinical course Anticipated discharge time: Pending clinical course I have reviewed the following corporate learning consultant notes: Pulmonology note reviewed from 08/08. I have reviewed the results of the following tests: Wound cultures showing gram-negative bacilli. BMP shows a bicarb of 36, BUN of 25, glucose 134, albumin of 2.2 and calcium of 7.7. I have ordered the following tests: BMP ordered for tomorrow morning. I have discussed the care of this patient with the following independent historian: I have independently interpreted the following test below: I have discussed the management of this patient with the following physician: Case discussed with Flora STACK, plans to continue present management. This patient has a high risk of morbidity due to the following reasons: Patient is on TPN - He needs daily monitoring of electrolytes. Objective - Vital Signs Vital signs: Vital Signs Temp 97.9 F 08/08/22 07:42 Pulse 85 08/08/22 11:50 Resp 18 08/08/22 09:00 BP 127/74 08/08/22 07:42 Pulse Ox 96 08/08/22 08:42 FiO2 35 08/03/22 12:00 Intake & Output 08/07/22 08/08/22 08/08/22 18:59 06:59 18:59 Intake Total 1320 Output Total 540 1500 0 Balance 780 -1500 0 Intake: IV 380 Lactated Ringers 1,000 ml 80 @ 100 mls/hr IV .Q10H [facility] Rx#:[id number] Mvi, Adult No.4 with Vit 300 K 10 ml Trace (Conc-1Ml/ Dose) 1 ml In Amino Acid 4.25%-D10w+Lytes*E* 1,000 ml @ 75 mls/hr IV .BY DURATION [facility] Rx#: [id number] Intake, IV Titration 940 Amount Amino Acid 4.25%-D10w+ 940 Lytes*E* 1,000 ml @ 75 mls/hr IV .BY DURATION [facility] Rx#:[id number] Output: Urine 540 1500 Stool 0 0 0 Other: Voiding Method Indwelling Catheter Indwelling Catheter Indwelling Catheter - Labs CBC & Chem 7: 08/07/22 03:56 08/08/22 05:17 Labs: Abnormal Lab Results - Last 24 Hours (Table) 08/07/22 08/08/22 08/08/22 Range/Units 18:02 05:17 05:40 Carbon Dioxide 36 H (22-30) mmol/L BUN 25 H (9-20) mg/dL Glucose 134 H (74-99) mg/dL POC Glucose (mg/dL) 116 H 124 H (70-110) mg/dL Calcium 7.7 L (8.4-10.2) mg/dL Total Protein 4.2 L (6.3-8.2) g/dL Albumin 2.2 L (3.5-5.0) g/dL 08/08/22 Range/Units 12:01 Carbon Dioxide (22-30) mmol/L BUN (9-20) mg/dL Glucose (74-99) mg/dL POC Glucose (mg/dL) 129 H (70-110) mg/dL Calcium (8.4-10.2) mg/dL Total Protein (6.3-8.2) g/dL Albumin (3.5-5.0) g/dL
--- NOTE | 2022-08-08 13:17 | P.PN ---
Subjective Progress Note Date: 08/08/22 CHIEF COMPLAINT: Perforated diverticulitis HISTORY OF PRESENT ILLNESS: Patient is postop day #6 status post sigmoid colectomy with end colostomy for perforated diverticulitis with abscess. Patient had have NG tube reinserted on Monday due to vomiting. He's had 250 output through the day. He does report that his ostomy is functioning with stool and flatus. He did have some pain earlier today that has improved with pain meds. Afebrile. WBC 6.1 na 137 potassium 4.0 creatinine 0.95 Patient seen and examined with Dr. meadows PHYSICAL EXAM: VITAL SIGNS: Reviewed. GENERAL: Well-developed in no acute distress. HEENT: No sclera icterus. Extraocular movements grossly intact. Moist buccal mucosa. Head is atraumatic, normocephalic. ABDOMEN: Mildly distended. Service and conus drainage from incision. Patient has a gauze in place at the umbilicus where talya were removed NEUROLOGIC: Alert and oriented. Cranial nerves II through XII grossly intact. ASSESSMENT: 1. Perforated diverticulitis with abscess status post sigmoid colectomy with end colostomy 2. History of COPD 3. Suspected postop ileus PLAN: -Continue NG tube for decompression -Keep patient nothing by mouth -Add toradol for pain -Continue pain management -Continue IV fluids -Continue antibiotics per infectious disease -Encourage patient to increase activity level -DVT prophylaxis Lovenox and GI prophylaxis Protonix Physician Shift Supervisor Rn note has been reviewed by physician. Signing provider agrees with the documented findings, assessment, and plan of care. Objective - Vital Signs Vital signs: Vital Signs Temp 97.9 F 08/08/22 07:42 Pulse 85 08/08/22 11:50 Resp 18 08/08/22 09:00 BP 127/74 08/08/22 07:42 Pulse Ox 96 08/08/22 08:42 FiO2 35 08/03/22 12:00 Intake & Output 08/07/22 08/08/22 08/08/22 18:59 06:59 18:59 Intake Total 1320 Output Total 540 1500 0 Balance 780 -1500 0 Intake: IV 380 Lactated Ringers 1,000 ml 80 @ 100 mls/hr IV .Q10H [facility] Rx#:[id number] Mvi, Adult No.4 with Vit 300 K 10 ml Trace (Conc-1Ml/ Dose) 1 ml In Amino Acid 4.25%-D10w+Lytes*E* 1,000 ml @ 75 mls/hr IV .BY DURATION [facility] Rx#: [id number] Intake, IV Titration 940 Amount Amino Acid 4.25%-D10w+ 940 Lytes*E* 1,000 ml @ 75 mls/hr IV .BY DURATION [facility] Rx#:[id number] Output: Urine 540 1500 Stool 0 0 0 Other: Voiding Method Indwelling Catheter Indwelling Catheter Indwelling Catheter - Labs CBC & Chem 7: 08/07/22 03:56 08/08/22 05:17 Labs: Abnormal Lab Results - Last 24 Hours (Table) 08/07/22 08/08/22 08/08/22 Range/Units 18:02 05:17 05:40 Carbon Dioxide 36 H (22-30) mmol/L BUN 25 H (9-20) mg/dL Glucose 134 H (74-99) mg/dL POC Glucose (mg/dL) 116 H 124 H (70-110) mg/dL Calcium 7.7 L (8.4-10.2) mg/dL Total Protein 4.2 L (6.3-8.2) g/dL Albumin 2.2 L (3.5-5.0) g/dL 08/08/22 Range/Units 12:01 Carbon Dioxide (22-30) mmol/L BUN (9-20) mg/dL Glucose (74-99) mg/dL POC Glucose (mg/dL) 129 H (70-110) mg/dL Calcium (8.4-10.2) mg/dL Total Protein (6.3-8.2) g/dL Albumin (3.5-5.0) g/dL
[2022-08-08 14:53] VITALS: BMI 26.9
[2022-08-08] MEDS: KETOROLAC 15 MG/ML 1 ML VIAL IVP SCH ×3 (14:59→23:09)
[2022-08-08 18:13] LABS: Glucose,Whole Blood 127 mg/dL (70-110)
[2022-08-09 00:18] LABS: Glucose,Whole Blood 145 mg/dL (70-110)
[2022-08-09] MEDS: KETOROLAC 15 MG/ML 1 ML VIAL IVP SCH ×4 (05:09→23:10)
[2022-08-09] MEDS: PIPERACILLIN-TAZOBACTAM 3.375 GM in SODIUM CHLORIDE 0.9% 100 ML IVPB SCH ×3 (05:10→19:43)
[2022-08-09] MEDS: LACTATED RINGERS 1,000 ML IV SCH ×3 (05:39→08:36)
[2022-08-09 05:54] LABS: African American GFR (CKD) 87 (>60 ml/min/1.73 sqM); Anion Gap 1 mmol/L; Blood Urea Nitrogen 24 mg/dL (9-20); Calcium 7.7 mg/dL (8.4-10.2); Carbon Dioxide 34 mmol/L (22-30); Chloride 102 mmol/L (98-107); Glucose 136 mg/dL (74-99); Magnesium 2.1 mg/dL (1.6-2.3); Non-African American GFR(CKD) 75 (>60 ml/min/1.73 sqM); Phosphorus 3.4 mg/dL (2.5-4.5); Potassium 3.9 mmol/L (3.5-5.1); Sodium 137 mmol/L (137-145)
[2022-08-09 06:12] LABS: Glucose,Whole Blood 134 mg/dL (70-110)
--- NOTE | 2022-08-09 07:45 | P.PN ---
Subjective Progress Note Date: 08/08/22 Principal diagnosis: Perforated diverticulitis and peritonitis Patient is a 72-year-old male presenting to the hospital abdominal pain has been diagnosed with acute diverticulitis with perforation treated medically did not have improvement subsequently was taken to the OR on 08/02/2022 and the patient is status post laparotomy; colectomy and diverting colostomy. On today's evaluation that is 08/08/2022, the patient is afebrile, patient is breathing comfortably on 3L nasal cannula oxygen, patient denies any further nausea vomiting abdominal pain is currently controlled no chest pain shortness of breath occasional cough Objective - Vital Signs Vital signs: Vital Signs Temp 97.9 F 08/08/22 07:42 Pulse 85 08/08/22 11:50 Resp 18 08/08/22 09:00 BP 127/74 08/08/22 07:42 Pulse Ox 96 08/08/22 08:42 FiO2 35 08/03/22 12:00 Intake & Output 08/07/22 08/08/22 08/08/22 18:59 06:59 18:59 Intake Total 1320 Output Total 540 1500 0 Balance 780 -1500 0 Intake: IV 380 Lactated Ringers 1,000 ml 80 @ 100 mls/hr IV .Q10H [facility] Rx#:[id number] Mvi, Adult No.4 with Vit 300 K 10 ml Trace (Conc-1Ml/ Dose) 1 ml In Amino Acid 4.25%-D10w+Lytes*E* 1,000 ml @ 75 mls/hr IV .BY DURATION [facility] Rx#: [id number] Intake, IV Titration 940 Amount Amino Acid 4.25%-D10w+ 940 Lytes*E* 1,000 ml @ 75 mls/hr IV .BY DURATION [facility] Rx#:[id number] Output: Urine 540 1500 Stool 0 0 0 Other: Voiding Method Indwelling Catheter Indwelling Catheter Indwelling Catheter - Exam GENERAL DESCRIPTION: An elderly male up in the chair in no distress RESPIRATORY SYSTEM: Unlabored breathing , decreased breath sounds at bases HEART: S1 S2 regular rate and rhythm , ABDOMEN: Soft , no tenderness EXTREMITIES: No edema feet - Labs CBC & Chem 7: 08/07/22 03:56 08/09/22 05:16 Labs: Abnormal Lab Results - Last 24 Hours (Table) 0508/08/22 08/08/22 Range/Units 18:02 05:17 05:40 Carbon Dioxide 36 H (22-30) mmol/L BUN 25 H (9-20) mg/dL Glucose 134 H (74-99) mg/dL POC Glucose (mg/dL) 116 H 124 H (70-110) mg/dL Calcium 7.7 L (8.4-10.2) mg/dL Total Protein 4.2 L (6.3-8.2) g/dL Albumin 2.2 L (3.5-5.0) g/dL 08/08/22 Range/Units 12:01 Carbon Dioxide (22-30) mmol/L BUN (9-20) mg/dL Glucose (74-99) mg/dL POC Glucose (mg/dL) 129 H (70-110) mg/dL Calcium (8.4-10.2) mg/dL Total Protein (6.3-8.2) g/dL Albumin (3.5-5.0) g/dL Assessment and Plan (1) Diverticulitis of colon with perforation Current Visit: Yes Status: Acute Code(s): K57.20 - DVTRCLI OF LG INT W PERFORATION AND ABSCESS W/O BLEEDING SNOMED Code(s): 60628167 Plan: 1patient was in the hospital with abdominal pain has been diagnosed with a complicated diverticulitis failing medical therapy and the patient subsequently status post laparotomy sigmoid colectomy and diverting colostomy with concern for secondary peritonitis from perforated sigmoid diverticulitis and need to cover for enteric gram-negative both aerobes and anaerobes 2-patient abdominal cultures are currently group B strep and anaerobic gram- negative bacilli 3-patient remains to be afebrile white count has been normal, the patient to continue with Zosyn will waiting for GI issues to be resolved before transition to oral antibiotics Time with Patient: Less than 30
[2022-08-09] MEDS: IPRATROPIUM-ALBUTEROL 3 ML NEB INHALATION SCH ×4 (08:31→20:46)
[2022-08-09] MEDS: FORMOTEROL FUMARATE 20 MCG/2 ML NEBU INHALATION SCH ×2 (08:31→20:46)
[2022-08-09] MEDS: BUDESONIDE 1 MG/2 ML NEBU INHALATION SCH ×2 (08:31→20:46)
[2022-08-09] MEDS: HYDROmorphone 0.5 MG/0.5 ML SYRINGE IVP PRN ×2 (08:46→16:00)
[2022-08-09] MEDS: PANTOPRAZOLE 40 MG/10 ML VIAL IV SCH (08:46)
[2022-08-09] MEDS: ENOXAPARIN 40 MG/0.4 ML SYRINGE SQ SCH (08:46)
[2022-08-09] MEDS: HYDROCORTISONE SUCCINATE 100 MG/2 ML VIAL IV SCH ×2 (08:46→19:43)
--- NOTE | 2022-08-09 10:37 | P.PN ---
Subjective Progress Note Date: 08/09/22 I was asked to evaluate this patient because of his advanced COPD and ongoing abdominal complications. The patient was seen in the emergency department. The patient is known to have diverticulosis he came in for an acute abdominal pain this morning. CAT scan of the abdomen was done and the patient was found to have acute sigmoid diverticulitis. This was a comp acute diverticulitis as perforation suspected and the patient had pockets of free intraperitoneal air measuring up to 5.5 cm in size. There is also trace lower abdominal ascites. No evidence of any abscess formation. Is also small bowel ileus. There is moderate size hiatal hernia also. The patient has a large prostate. Is known to have prostate cancer. The patient is also known to have advanced COPD. The patient is auction dependent. The patient is steroid dependent and is taking 10 mg of prednisone on a daily basis on outpatient basis. He has been followed up through our office. He has exertional dyspnea which is chronic in his significant limitation in exercise capacity because of his advanced COPD. No chest pain. No worsening shortness of breath. No swelling lower extremities. No previous history of DVT or pulmonary embolism. No nausea or emesis. No aspiration. GI surgeries on the case. Currently is on antibiotics. No plans for any surgery at this point in time. Blood work shows a WBC count of 18, he moglobin 13, normal cognition profile, BUN is 20 over the creatinine of 0.9. LFTs are normal. Lactic acid level is at 1.3. On today's evaluation of 07/30/2022, the patient's abdomen is less tender. The patient remains nothing by mouth. No worsening shortness of breath. The patient is on IV Zosyn. The patient is going to be treated conservatively. White cell count is at 14 with a hemoglobin of 11.1 and a platelet count of 245 noted the white cycles lower compared to yesterday. BUN is at 21 with a creatinine of 1.3. Sodium is at 143. Awake and alert and communicating. He remains on oxygen at 2 L/m nasal cannula. On 07/31/2022, the patient is doing well. No specific complaints. Abdominal pain is subsiding gradually. His COPD remains on IV Zosyn. No plans for any surgical intervention this point in time. The patient is known to have advanced COPD and the patient also has oxygen steroid dependent COPD and the patient is currently on hydrocortisone. IV fluids are in the form of D5 half-normal saline at rate of 100 mL an hour. The white cell count is down to 8.2 with hemoglobin 11.5 and a platelet count of 15. BUN is at 60 with a creatinine of 1 and his sodium level is at 137. The patient is seen today 08/01/2022 in follow-up on the regular medical floor. He is currently sitting up in bed. Awake and alert in no acute distress. Maintaining O2 saturations in the 90s on 2 L/m per nasal cannula. Currently on D5.45 normal saline at 100 ML's per hour. He is continued on Zosyn. His abdominal discomfort is gradually improving. Follow-up chest x-ray continues to show diffuse severe emphysematous changes with coarsened interstitium suspicious for chronic interstitial lung disease. Blood culture reveals no growth. White count 8.1. Hemoglobin 10.5. Platelets 225. Sodium 142. Potassium 3.9. Bicarb 26. BUN 11. Creatinine 1.0. Glucose 165. ProBNP 1500. Troponin negative 1. AST 12. ALT 13. Alk phos 39. Continued on DuoNeb inhalations. Lovenox for DVT prophylaxis. Remains on Solu-Cortef. The patient is seen today 08/02/2022 in follow-up on the regular medical floor. He is awake and alert in no acute distress. Resting fairly comfortably in bed. Maintaining good O2 saturations in the 90s on 2 L/m per nasal cannula. He is receiving D5 and half-normal saline at 100 ML's per hour. Remains on antibiotics in the form of Zosyn. Lovenox for DVT prophylaxis. Continued on Solu-Cortef. His abdominal discomfort is waxing and waning. A little more tender today. He remains nothing by mouth. Blood cultures revealed no growth. Blood glucose 151. Reevaluated today on 08/03/22, patient underwent sigmoid colectomy and end colostomy yesterday by Dr. Moyer mostly because of his sigmoid diverticulitis with perforation and abscess, patient came back to the ICU on mechanical ventilation. Remains intubated and mechanically ventilated. Patient is known to have severe end-stage COPD FEV1 is no more than 26%, however the benefits of the surgery obviously outweighed the risks. And surgery had to be done yesterday because the patient continued to have significant abdominal pain and tenderness. Patient is now on assist control rate of 16, volume 400 FiO2 50% and PEEP of 5, ABG showed a pO2 of 251 pCO2 42 pH of 7.45. His chest x-ray is showing minimal atelectasis, no infiltrate, no evidence of congestive heart failure, his electrolytes are normal renal profile is normal, CBC is relatively unremarkable. Hence I cut down his FiO2 to 35%, patient remains on enteral are at 100 mL an hour he is also on propofol at 50 mcg/kg/m, I have recommended stopping propofol, and was the patient is awake we will recommend checking weani ng parameters, and if reasonable proceed with a pressure support and CPAP with a pressure support of 10, follow-up ABG in 1 hour after being on pressure support and CPAP, and we will likely consider extubation later today. Reevaluated today on 08/04/2022, patient remains in the ICU, he is status post sigmoid colectomy and end colostomy with severe underlying COPD. FEV1 is in the range of 26%, surprisingly the patient is doing better than expected. Patient remains on 4 L nasal cannula with adequate O2 saturation, his ostomy is functioning well, remains on Zosyn, his also on TPN at 50 mL per hour. WBC count is 9.1 hemoglobin is 10.9. Basic metabolic profile is normal renal profile is normal. Chest x-ray yesterday showed minimal interstitial findings and COPD Reevaluated today on 08/05/2022, patient remains in the ICU, doing well, relatively asymptomatic, his ostomy is functioning well, pulmonary status is relatively stable in spite of its severity patient denies any abdominal pain, no shortness of breath, his labs were relatively normal including normal CBC and normal electrolytes normal renal profile hence I will transfer the patient out of the ICU to a regular medical floor. Reevaluated today on 08/06/2022, patient had his nasogastric tube removed yesterday, however he developed abdominal distention and a nasogastric tube was placed back again today significant amount of fluid was noted are of the stomach over 900 mL. Patient felt better nonetheless he remains a bit bloated, now he has a nasogastric tube back in place. Considering his symptoms I'm recommending that we keep him in the ICU today. Pulmonary-[facility] he is doing well in spite of his severe underlying COPD. Labs today showed relatively normal CBC and a relatively normal electrolytes bicarb is 33 BUN is 24 creatinine 0.89. Patient was seen by surgery today/Dr. gurrola, and he is recommending to keep the nasogastric tube in place. Patient was reevaluated today on 08/07/2022, feels less bloated, nasogastric tube remains in place and functional, his colostomy is also functional, he had 450 of NG output overnight. He is afebrile, WBC count is 6.1. Pulmonary-[facility] he is about the same, he has severe COPD but surprisingly not as symptomatic as expected. WBC count 6.1 hemoglobin 10.9 lites are normal renal profile is normal bicarb is 37 The patient is seen today 08/08/2022 in follow-up on the regular medical floor. He has moved out of the ICU yesterday. He is awake and alert in no acute distre ss. Maintaining good O2 saturations in the mid 90s on 3 L/m per nasal cannula. Afebrile. Hemodynamically stable. Nasogastric tube remains in place. Abdominal wound cultures are positive for gram-negative bacilli. Sputum culture revealed no growth. Blood culture reveals no growth. Sodium 137. Potassium 4.0. Bicarb 36. BUN 25. Creatinine 0.95. Glucose 134. She is continued on DuoNeb inhalations, Pulmicort and Perforomist inhalations, Solu-Cortef. Lovenox for DVT prophylaxis. Remains on TPN for nutritional support at 75 ML's per hour. Antibiotics in the form of Zosyn. The patient is seen today 08/09/2022 in follow-up on the regular medical floor. He is currently resting quite comfortably in bed. Awake and alert in no acute distress. Currently on oxygen at 3 L/m per nasal cannula. Being nourished with TPN at 75 ML's per hour. He is receiving lactated Ringer's at 100 ML's per hour. He has some lower extremity edema. White sodium 137. Potassium 3.9. Bicarb 34. BUN 24. Creatinine 1.00. Glucose 136. Abdominal cultures were positive for anaerobic gram-negative bacilli. Sputum culture revealed no growth. He is continued on DuoNeb inhalations, Pulmicort and Perforomist inhalations. Working well with the incentive spirometer. Objective - Vital Signs Vital signs: Vital Signs Temp 98.2 F 08/09/22 07:29 Pulse 80 08/09/22 08:56 Resp 21 08/09/22 07:29 BP 142/72 08/09/22 07:29 Pulse Ox 98 08/09/22 08:31 FiO2 35 08/03/22 12:00 Intake & Output 08/08/22 08/09/22 08/09/22 18:59 06:59 18:59 Intake Total 0 1037.5 Output Total 700 1150 Balance -700 -112.5 Weight 73.4 kg Intake: Intake, IV Titration 1037.5 Amount Sodium Phosphate 15 mmol 1037.5 Sodium Chloride 4Meq/ml Vial 30 meq Potassium Chloride 26 meq Magnesium Sulfate gm 1 gm Calcium Gluconate 1 gm In Amino Acid 4.25%-D10w 1,000 ml @ 75 mls/hr IV .[facility] Rx#: [id number] Oral 0 Tube Feeding 0 Output: Gastric Drainage 50 Urine 700 1000 Stool 0 100 Other: Voiding Method Indwelling Catheter Indwelling Catheter - Exam GENERAL EXAM: Alert, pleasant 72-year-old male, on 3 L nasal cannula, resting in bed in no apparent distress. HEAD: Normocephalic. EYES: Normal reaction of pupils, equal size. NOSE: Nasogastric tube remains in place. Clear with pink turbinates. THROAT: No erythema or exudates. NECK: No masses, no JVD. CHEST: No chest wall deformity. LUNGS: Equal air entry with bilateral end expiratory wheeze, diminished. CVS: S1 and S2 normal with no audible murmur, regular rhythm. ABDOMEN: Postsurgical changes. Ostomy intact. Functioning. SPINE: No scoliosis or deformity SKIN: No rashes CENTRAL NERVOUS SYSTEM: No focal deficits, tone is normal in all 4 extremities. EXTREMITIES: There is no peripheral edema. No clubbing, no cyanosis. Peripheral pulses are intact. - Labs CBC & Chem 7: 08/07/22 03:56 08/09/22 05:16 Labs: Abnormal Lab Results - Last 24 Hours (Table) 08/08/22 08/08/22 08/09/22 Range/Units 12:01 18:08 00:16 Carbon Dioxide (22-30) mmol/L BUN (9-20) mg/dL Glucose (74-99) mg/dL POC Glucose (mg/dL) 129 H 127 H 145 H (70-110) mg/dL Calcium (8.4-10.2) mg/dL 08/09/22 08/09/22 Range/Units 05:16 06:10 Carbon Dioxide 34 H (22-30) mmol/L BUN 24 H (9-20) mg/dL Glucose 136 H (74-99) mg/dL POC Glucose (mg/dL) 134 H (70-110) mg/dL Calcium 7.7 L (8.4-10.2) mg/dL Assessment and Plan Assessment: Acute perforated sigmoid diverticulitis with abscess, status post sigmoid colectomy and end colostomy postoperative day #7. Nasogastric tube remains in place History of diverticulosis Recent hospitalization for an acute COPD exacerbation back in June 2022, treated and the patient has recovered Advanced COPD with an FEV1 of 26% of predicted, the patient is chronically oxygen and steroid dependent taking prednisone 10 mg by mouth daily. Ex-smoker and the patient quit smoking 2 years ago Chronic hypoxic respiratory failure maternal O2 at 2 L nasal cannula Prostate cancer Acid reflux Plan: The patient was seen and evaluated Medications and labs reviewed Chest x-ray, abdominal x-ray pending Currently stable and on 3 L nasal cannula Continue bronchodilators, Zosyn Remains nothing by mouth TPN for nutritional support Increase his activity as tolerated We will continue to follow I have personally seen and examined the patient, performed the documentation and the assessment and plan as written. Number of minutes spent on the visit: 10.
--- NOTE | 2022-08-09 12:15 | P.PN ---
Subjective Progress Note Date: 08/09/22 Principal diagnosis: Perforated diverticulitis and peritonitis Patient is a 72-year-old male presenting to the hospital abdominal pain has been diagnosed with acute diverticulitis with perforation treated medically did not have improvement subsequently was taken to the OR on 08/02/2022 and the patient is status post laparotomy; colectomy and diverting colostomy. On today's evaluation that is 08/09/2022, the patient continues to be afebrile, patient is breathing comfortably on 3L nasal cannula oxygen, patient denies any further nausea vomiting abdominal pain is currently controlled, patient has been complaining about the NG and when the NG tube can come out, he did have output in his colostomy Objective - Vital Signs Vital signs: Vital Signs Temp 98.2 F 08/09/22 07:29 Pulse 80 08/09/22 08:56 Resp 21 08/09/22 07:29 BP 142/72 08/09/22 07:29 Pulse Ox 98 08/09/22 08:31 FiO2 35 08/03/22 12:00 Intake & Output 08/08/22 08/09/22 08/09/22 18:59 06:59 18:59 Intake Total 0 1037.5 Output Total 700 1150 Balance -700 -112.5 Weight 73.4 kg Intake: Intake, IV Titration 1037.5 Amount Sodium Phosphate 15 mmol 1037.5 Sodium Chloride 4Meq/ml Vial 30 meq Potassium Chloride 26 meq Magnesium Sulfate gm 1 gm Calcium Gluconate 1 gm In Amino Acid 4.25%-D10w 1,000 ml @ 75 mls/hr IV .BY D[facility]ATION [facility] Rx#: [id number] Oral 0 Tube Feeding 0 Output: Gastric Drainage 50 Urine 700 1000 Stool 0 100 Other: Voiding Method Indwelling Catheter Indwelling Catheter - Exam GENERAL DESCRIPTION: An elderly male up in the chair in no distress RESPIRATORY SYSTEM: Unlabored breathing , decreased breath sounds at bases HEART: S1 S2 regular rate and rhythm , ABDOMEN: Soft , no tenderness EXTREMITIES: No edema feet - Labs CBC & Chem 7: 08/07/22 03:56 08/09/22 05:16 Labs: Abnormal Lab Results - Last 24 Hours (Table) 08/08/22 08/09/22 08/09/22 Range/Units 18:08 00:16 05:16 Carbon Dioxide 34 H (22-30) mmol/L BUN 24 H (9-20) mg/dL Glucose 136 H (74-99) mg/dL POC Glucose (mg/dL) 127 H 145 H (70-110) mg/dL Calcium 7.7 L (8.4-10.2) mg/dL // Range/Units 06:10 Carbon Dioxide (22-30) mmol/L BUN (9-20) mg/dL Glucose (74-99) mg/dL POC Glucose (mg/dL) 134 H (70-110) mg/dL Calcium (8.4-10.2) mg/dL Assessment and Plan (1) Diverticulitis of colon with perforation Current Visit: Yes Status: Acute Code(s): K57.20 - DVTRCLI OF LG INT W PER FORATION AND ABSCESS W/O BLEEDING SNOMED Code(s): 50146278 Plan: 1patient was in the hospital with abdominal pain has been diagnosed with a co mplicated diverticulitis failing medical therapy and the patient subsequently status post laparotomy sigmoid colectomy and diverting colostomy with concern for secondary peritonitis from perforated sigmoid diverticulitis and need to cover for enteric gram-negative both aerobes and anaerobes 2-patient abdominal cultures are currently group B strep and anaerobic gram- negative bacilli 3-patient is slowly clinically improving, the patient remains to be afebrile white count has been normal, the patient currently being treated with Zosyn will waiting for GI issues to be resolved and oral intake improved before transition to oral antibiotic Time with Patient: Less than 30
[2022-08-09 12:23] LABS: Glucose,Whole Blood 125 mg/dL (70-110)
--- NOTE | 2022-08-09 13:18 | XR ---
EXAMINATION TYPE: XR chest 1V portable DATE OF EXAM: 08/09/2022 Comparison: 08/05/[address] 02/20/2022 Clinical History: 72-year-old male Cough, status post abdominal surgery. Findings: The patient's NG tube is curled superiorly at the GE junction level. Increasing trace bilateral pleur al effusions. Persistent patchy retrocardiac opacity. Some increasing patchy peripheral right midlung opacity. Hyperinflation. Left PICC tip mid SVC. IMPRESSION: 1. COPD with advanced emphysema. 2. Note that the patient's NG tube is now short, curled with tip projecting upwards at the level of t he GE junction. Appropriate repositioning recommended. 3. Ongoing trace bilateral pleural effusions. Ongoing patchy retrocardiac opacity. Some increasing pa tchy peripheral right midlung opacity. Developing pneumonia not excluded at this time. Follow-up steve mmended. 4. Follow-up CT chest in 3 months to reassess the right hilum and exclude any enlarging lymph nodes.
--- NOTE | 2022-08-09 13:22 | XR ---
EXAMINATION TYPE: XR KUB portable DATE OF EXAM: 08/09/2022 CLINICAL DATA: 72-year-old male status post abdominal surgery, ileus, PH[facility] COMPARISON: None FINDINGS: Diffusely dilated small bowel loops measuring up to 4.5 cm. Anterior midline skin talya r elating to patient's operation. Supine imaging limited for assessment of free air. The NG tube appear s somewhat short, tip curled up near the GE junction level. Some residual oral contrast material in t he collapsed right side of the colon. IMPRESSION: Diffusely dilated small bowel loops measuring up to 4.5 cm suggesting postoperative ileus . Follow-up recommended. Note that the NG tube appears short, tip curled up projecting near the GE ju nction level.
--- NOTE | 2022-08-09 15:23 | P.PN ---
Subjective Progress Note Date: 08/09/22 CHIEF COMPLAINT: Perforated diverticulitis HISTORY OF PRESENT ILLNESS: Patient is postop day #7 status post sigmoid colectomy with end colostomy for perforated diverticulitis with abscess. Patient reports his pain is controlled. He has had minimal output through the NG tube. His ostomy is functioning. He denies any nausea. Afebrile. Sodium 137 potassium 3.9 creatinine 1.0 magnesium 2.1. KUB x-ray diffusely dilated small bowel loops measuring up to 4.5 cm suggesting postoperative ileus. Note t he NG tube appears short period projecting near the GE junction level. Patient seen and examined with Dr. meadows PHYSICAL EXAM: VITAL SIGNS: Reviewed. GENERAL: Well-developed in no acute distress. HEENT: No sclera icterus. Extraocular movements grossly intact. Moist buccal mucosa. Head is atraumatic, normocephalic. ABDOMEN: distended. Ostomy functioning. Serosanguineous Drainage from abdominal incision with packing in place NEUROLOGIC: Alert and oriented. Cranial nerves II through XII grossly intact. ASSESSMENT: 1. Perforated diverticulitis with abscess status post sigmoid colectomy with end colostomy 2. History of COPD 3. Postoperative ileus PLAN: -Discontinue NG tube -Keep patient nothing by mouth -Continue to monitor abdominal incision drainage -Continue pain management -Continue IV fluids -Continue antibiotics per infectious disease -Encourage patient to increase activity level -DVT prophylaxis Lovenox and GI prophylaxis Protonix Physician Senior Sales Operations Analyst note has been reviewed by physician. Signing provider agrees with the documented findings, assessment, and plan of care. Objective - Vital Signs Vital signs: Vital Signs Temp 98.4 F 08/09/22 12:44 Pulse 67 08/09/22 12:44 Resp 20 08/09/22 12:44 BP 140/75 08/09/22 12:44 Pulse Ox 97 08/09/22 12:44 FiO2 35 08/03/22 12:00 Intake & Output 08/08/22 08/09/22 08/09/22 18:59 06:59 18:59 Intake Total 0 1037.5 Output Total 700 1150 Balance -700 -112.5 Weight 73.4 kg Intake: Intake, IV Titration 1037.5 Amount Sodium Phosphate 15 mmol 1037.5 Sodium Chloride 4Meq/ml Vial 30 meq Potassium Chloride 26 meq Magnesium Sulfate gm 1 gm Calcium Gluconate 1 gm In Amino Acid 4.25%-D10w 1,000 ml @ 75 mls/hr IV .BY DURATION [facility] Rx#: [id number] Oral 0 Tube Feeding 0 Output: Gastric Drainage 50 Urine 700 1000 Stool 0 100 Other: Voiding Method Indwelling Catheter Indwelling Catheter - Labs CBC & Chem 7: 08/07/22 03:56 08/09/22 05:16 Labs: Abnormal Lab Results - Last 24 Hours (Table) 08/08/22 08/09/22 08/09/22 Range/Units 18:08 00:16 05:16 Carbon Dioxide 34 H (22-30) mmol/L BUN 24 H (9-20) mg/dL Glucose 136 H (74-99) mg/dL POC Glucose (mg/dL) 127 H 145 H (70-110) mg/dL Calcium 7.7 L (8.4-10.2) mg/dL 08/09/22 08/09/22 Range/Units 06:10 12:22 Carbon Dioxide (22-30) mmol/L BUN (9-20) mg/dL Glucose (74-99) mg/dL POC Glucose (mg/dL) 134 H 125 H (70-110) mg/dL Calcium (8.4-10.2) mg/dL
--- NOTE | 2022-08-09 16:09 | P.PN ---
Subjective Progress Note Date: 08/09/22 72-year-old male with a past medical history of COPD home oxygen dependent on 3 L at all times, diverticulosis and GERD. He presented to the emergency department with a chief complaint of abdominal pain. CBC showing severe leukocytosis with WBC count of 18.7 with left shift with neutrophils of 17.1. BMP revealing mild prerenal azotemia with BUN of 21. Glucose was 132 and lactic acid was 1.3. Liver profile unremarkable. Troponin less than 0.012. Urinalysis was negative for infection. COVID PCR was negative. EKG was completed showing normal sinus rhythm and 99 bpm with no noted T-wave or ST a bnormalities showing no signs of acute ischemia. Chest x-ray showing COPD changes but negative for acute cardiopulmonary process. CT AP positive for acute sigmoid diverticulitis complicated by perforation and pockets of free intraperitoneal air measuring up to 5.5 cm accompanied by trace lower abdominal ascites, secondary small bowel ileus, small to moderate sized hiatal hernia, mild circumferential distal esophageal wall thickening, and prostamegaly with prostate measurement of 5.2 cm. Patient was admitted under General surgery team and [facility] consulted for medical management throughout hospitalization. Patient underwent sigmoidectomy on 08/02. Patient was extubated on 08/03. 08/08 Patient was seen and examined. Transferred out of ICU yesterday. He is having 800 cc output from his NG tube. He complains of chronic cough. No nausea or vomiting today. Wound cultures showing gram-negative bacilli. BMP shows a bicarb of 36, BUN of 25, glucose 134, albumin of 2.2 and calcium of 7.7. 08/09 Patient was seen and examined. He continues to complain of cough. No recorded output from NG tube. BMP shows bicarb of 34, BUN of 24, glucose of 136. Plans to DC NG tube today per surgery. General: non toxic, no distress, appears at stated age Derm: warm, dry Head: atraumatic, normocephalic, symmetric, NG tube in place Eyes: EOMI, no lid lag, anicteric sclera Cardiovascular: S1S2 reg, no murmur Lungs: End expiratory wheezing bilateral, no rhonchi, no rales , no accessory muscle use Abdominal: distended, no guarding, no appreciable organomegaly, ostomy intact Ext: no gross muscle atrophy, 1+ LE edema, no contractures Neuro: no focal neuro deficits Psych: Alert, oriented, appropriate affect Assessment and Plan: Acute perforated diverticulitis with abscess Sigmoid colectomy with end colostomy on 08/02/2032 Sepsis on admission Anemia of chronic disease COPD on chronic prednisone, not in exacerbation Chronic hypoxemic respiratory failure on 2 L home O2 Based on my assessment of this patient, this patient meets a high complexity level of care. Patient has history of acute perforated diverticulitis with abscess status post sigmoid colectomy with end colostomy on 08/02/2032. He continues to have significant output from his NG tube. Wound culture growing gram negative b acilli. Receiving TPN for nutrition. Antibiotics: Zosyn 3.375 g IV Q8H Continue Protonix 40 mg IV QD. Zofran 4 mg Q8H PRN for N/V. Pain control: Dilaudid PRN for severe pain. Bronchodilators: DuoNeb 0.5mg-3mg/3ml scheduled and as needed for SOB and wheezing. Performist 20 mcg INH BID. Steroids: SoluCortef 25 mg IV BID. DVT ppx: Lovenox SQ Code status: Full code Anticipated discharge place: Pending clinical course Anticipated discharge time: Pending clinical course I have reviewed the following executive talent acquisition consultant notes: Pulmonology and Surgery note reviewed from 08/09. I have reviewed the results of the following tests: Wound cultures showing gram-negative bacilli. BMP shows bicarb of 34, BUN of 24, glucose of 136 I have ordered the following tests: BMP ordered for tomorrow morning. KUB and CXR ordered. I have discussed the care of this patient with the following independent historian: I have independently interpreted the following test below: I have discussed the management of this patient with the following physician: Case discussed with Flora STACK, plans to DC NG tube. This patient has a high risk of morbidity due to the following reasons: Patient is on TPN - He needs daily monitoring of electrolytes. Objective - Vital Signs Vital signs: Vital Signs Temp 98.4 F 08/09/22 12:44 Pulse 64 08/09/22 15:55 Resp 20 08/09/22 12:44 BP 140/75 08/09/22 12:44 Pulse Ox 97 08/09/22 12:44 FiO2 35 08/03/22 12:00 Intake & Output 08/08/22 08/09/22 08/09/22 18:59 06:59 18:59 Intake Total 0 1037.5 Output Total 700 1150 Balance -700 -112.5 Weight 73.4 kg Intake: Intake, IV Titration 1037.5 Amount Sodium Phosphate 15 mmol 1037.5 Sodium Chloride 4Meq/ml Vial 30 meq Potassium Chloride 26 meq Magnesium Sulfate gm 1 gm Calcium Gluconate 1 gm In Amino Acid 4.25%-D10w 1,000 ml @ 75 mls/hr IV .[facility] Rx#: [id number] Oral 0 Tube Feeding 0 Output: Gastric Drainage 50 Urine 700 1000 Stool 0 100 Other: Voiding Method Indwelling Catheter Indwelling Catheter - Labs CBC & Chem 7: 08/07/22 03:56 08/09/22 05:16 Labs: Abnormal Lab Results - Last 24 Hours (Table) 08/08/22 08/09/22 08/09/22 Range/Units 18:08 00:16 05:16 Carbon Dioxide 34 H (22-30) mmol/L BUN 24 H (9-20) mg/dL Glucose 136 H (74-99) mg/dL POC Glucose (mg/dL) 127 H 145 H (70-110) mg/dL Calcium 7.7 L (8.4-10.2) mg/dL 08/09/22 08/09/22 Range/Units 06:10 12:22 Carbon Dioxide (22-30) mmol/L BUN (9-20) mg/dL Glucose (74-99) mg/dL POC Glucose (mg/dL) 134 H 125 H (70-110) mg/dL Calcium (8.4-10.2) mg/dL
[2022-08-09 18:20] LABS: Glucose,Whole Blood 124 mg/dL (70-110)
[2022-08-09 23:35] LABS: Glucose,Whole Blood 115 mg/dL (70-110)
[2022-08-10] MEDS: KETOROLAC 15 MG/ML 1 ML VIAL IVP SCH ×4 (05:01→23:37)
[2022-08-10] MEDS: PIPERACILLIN-TAZOBACTAM 3.375 GM in SODIUM CHLORIDE 0.9% 100 ML IVPB SCH ×3 (05:02→20:25)
[2022-08-10] MEDS ORDERED: BENZOCAINE/MENTHOL LOZENG 1 EACH LOZENGE MUCOUS MEM PRN (06:02)
[2022-08-10 06:16] LABS: Glucose,Whole Blood 127 mg/dL (70-110)
[2022-08-10] MEDS: LACTATED RINGERS 1,000 ML IV SCH (06:52)
[2022-08-10 06:56] LABS: African American GFR (CKD) 79 (>60 ml/min/1.73 sqM); Anion Gap 4 mmol/L; Blood Urea Nitrogen 25 mg/dL (9-20); Carbon Dioxide 32 mmol/L (22-30); Chloride 103 mmol/L (98-107); Glucose 121 mg/dL (74-99); Magnesium 2.2 mg/dL (1.6-2.3); Non-African American GFR(CKD) 68 (>60 ml/min/1.73 sqM); Phosphorus 3.4 mg/dL (2.5-4.5); Potassium 3.8 mmol/L (3.5-5.1); Sodium 139 mmol/L (137-145)
[2022-08-10] MEDS: HYDROmorphone 1 MG/ML 1 ML SYRINGE IVP PRN ×2 (08:38→20:24)
[2022-08-10] MEDS: HYDROCORTISONE SUCCINATE 100 MG/2 ML VIAL IV SCH ×2 (08:39→20:24)
[2022-08-10] MEDS: PANTOPRAZOLE 40 MG/10 ML VIAL IV SCH (08:39)
[2022-08-10] MEDS: ENOXAPARIN 40 MG/0.4 ML SYRINGE SQ SCH (08:40)
[2022-08-10] MEDS: BUDESONIDE 1 MG/2 ML NEBU INHALATION SCH ×2 (09:11→19:37)
[2022-08-10] MEDS: IPRATROPIUM-ALBUTEROL 3 ML NEB INHALATION SCH ×4 (09:11→19:37)
[2022-08-10] MEDS: FORMOTEROL FUMARATE 20 MCG/2 ML NEBU INHALATION SCH ×2 (09:11→19:37)
--- NOTE | 2022-08-10 11:17 | P.PN ---
Subjective Progress Note Date: 08/10/22 CHIEF COMPLAINT: Perforated diverticulitis HISTORY OF PRESENT ILLNESS: Patient is postop day #8 status post sigmoid colectomy with end colostomy for perforated diverticulitis with abscess. Patient complains of shooting pains across the upper abdomen 4 this morning. Pain did improve pain medication. He is having liquidy stool through his ostomy. Denies any nausea or vomiting. He is on TPN for nutrition support. NG tube discontinued yesterday. Patient does remain distended. Patient reports cough. Afebrile. Sodium 137 potassium 3.9 creatinine 1.0 magnesium 2.1. KUB x-ray from yesterday diffusely dilated small bowel loops measuring up to 4.5 cm suggesting postoperative ileus. Note the NG tube appears short period projecting near the GE junction level. Culture results strep agalactiae and anaerobic gram-negative bacilli Patient seen and examined with Dr. meadows PHYSICAL EXAM: VITAL SIGNS: Reviewed. GENERAL: Well-developed in no acute distress. HEENT: No sclera icterus. Extraocular movements grossly intact. Moist buccal mucosa. Head is atraumatic, normocephalic. ABDOMEN: distended. Ostomy functioning. Serosanguineous Drainage from abdominal incision with packing in place NEUROLOGIC: Alert and oriented. Cranial nerves II through XII grossly intact. ASSESSMENT: 1. Perforated diverticulitis with abscess status post sigmoid colectomy with end colostomy 2. History of COPD 3. Postoperative ileus PLAN: -Keep patient nothing by mouth except for ice chips -Continue to monitor abdominal incision drainage -Continue pain management -Continue TPN for nutrition support -Continue antibiotics per infectious disease -Encourage patient to increase activity level -Encourage incentive spirometer use -Consulted ostomy nurse for ostomy teaching -DVT prophylaxis Lovenox and GI prophylaxis Protonix Physician Fermentation Operator note has been reviewed by physician. Signing provider agrees with the documented findings, assessment, and plan of care. Objective - Vital Signs Vital signs: Vital Signs Temp 98.1 F 08/10/22 07:20 Pulse 72 08/10/22 09:40 Resp 20 08/10/22 07:20 BP 124/70 08/10/22 07:20 Pulse Ox 97 08/10/22 09:00 FiO2 35 08/03/22 12:00 Intake & Output 05/23/23 05/24/23 05/24/23 18:59 06:59 18:59 Intake Total 1037.5 Output Total 850 622 Balance -850 415.5 Intake: Intake, IV Titration 1037.5 Amount Sodium Phosphate 15 mmol 1037.5 Sodium Chloride 4Meq/ml Vial 30 meq Potassium Chloride 26 meq Magnesium Sulfate gm 1 gm Calcium Gluconate 1 gm In Amino Acid 4.25%-D10w 1,000 ml @ 75 mls/hr IV .BY DURATION [facility] Rx#: [id number] Output: Urine 750 622 Stool 100 Other: Voiding Method Indwelling Catheter - Labs CBC & Chem 7: 08/07/22 03:56 08/10/22 06:10 Labs: Abnormal Lab Results - Last 24 Hours (Table) 08/09/22 08/09/22 08/09/22 Range/Units 12:22 18:19 23:32 Carbon Dioxide (22-30) mmol/L BUN (9-20) mg/dL Glucose (74-99) mg/dL POC Glucose (mg/dL) 125 H 124 H 115 H (70-110) mg/dL Calcium (8.4-10.2) mg/dL 08/10/22 08/10/22 Range/Units 06:10 06:14 Carbon Dioxide 32 H (22-30) mmol/L BUN 25 H (9-20) mg/dL Glucose 121 H (74-99) mg/dL POC Glucose (mg/dL) 127 H (70-110) mg/dL Calcium 8.0 L (8.4-10.2) mg/dL
--- NOTE | 2022-08-10 11:47 | P.PN ---
Subjective Progress Note Date: 08/10/22 I was asked to evaluate this patient because of his advanced COPD and ongoing abdominal complications. The patient was seen in the emergency department. The patient is known to have diverticulosis he came in for an acute abdominal pain this morning. CAT scan of the abdomen was done and the patient was found to have acute sigmoid diverticulitis. This was a comp acute diverticulitis as perforation suspected and the patient had pockets of free intraperitoneal air measuring up to 5.5 cm in size. There is also trace lower abdominal ascites. No evidence of any abscess formation. Is also small bowel ileus. There is moderate size hiatal hernia also. The patient has a large prostate. Is known to have prostate cancer. The patient is also known to have advanced COPD. The patient is auction dependent. The patient is steroid dependent and is taking 10 mg of prednisone on a daily basis on outpatient basis. He has been followed up through our office. He has exertional dyspnea which is chronic in his significant limitation in exercise capacity because of his advanced COPD. No chest pain. No worsening shortness of breath. No swelling lower extremities. No previous history of DVT or pulmonary embolism. No nausea or emesis. No aspiration. GI surgeries on the case. Currently is on antibiotics. No plans for any surgery at this point in time. Blood work shows a WBC count of 18, he moglobin 13, normal cognition profile, BUN is 20 over the creatinine of 0.9. LFTs are normal. Lactic acid level is at 1.3. On today's evaluation of 07/30/2022, the patient's abdomen is less tender. The patient remains nothing by mouth. No worsening shortness of breath. The patient is on IV Zosyn. The patient is going to be treated conservatively. White cell count is at 14 with a hemoglobin of 11.1 and a platelet count of 245 noted the white cycles lower compared to yesterday. BUN is at 21 with a creatinine of 1.3. Sodium is at 143. Awake and alert and communicating. He remains on oxygen at 2 L/m nasal cannula. On 07/31/2022, the patient is doing well. No specific complaints. Abdominal pain is subsiding gradually. His COPD remains on IV Zosyn. No plans for any surgical intervention this point in time. The patient is known to have advanced COPD and the patient also has oxygen steroid dependent COPD and the patient is currently on hydrocortisone. IV fluids are in the form of D5 half-normal saline at rate of 100 mL an hour. The white cell count is down to 8.2 with hemoglobin 11.5 and a platelet count of 15. BUN is at 60 with a creatinine of 1 and his sodium level is at 137. The patient is seen today 08/01/2022 in follow-up on the regular medical floor. He is currently sitting up in bed. Awake and alert in no acute distress. Maintaining O2 saturations in the 90s on 2 L/m per nasal cannula. Currently on D5.45 normal saline at 100 ML's per hour. He is continued on Zosyn. His abdominal discomfort is gradually improving. Follow-up chest x-ray continues to show diffuse severe emphysematous changes with coarsened interstitium suspicious for chronic interstitial lung disease. Blood culture reveals no growth. White count 8.1. Hemoglobin 10.5. Platelets 225. Sodium 142. Potassium 3.9. Bicarb 26. BUN 11. Creatinine 1.0. Glucose 165. ProBNP 1500. Troponin negative 1. AST 12. ALT 13. Alk phos 39. Continued on DuoNeb inhalations. Lovenox for DVT prophylaxis. Remains on Solu-Cortef. The patient is seen today 08/02/2022 in follow-up on the regular medical floor. He is awake and alert in no acute distress. Resting fairly comfortably in bed. Maintaining good O2 saturations in the 90s on 2 L/m per nasal cannula. He is receiving D5 and half-normal saline at 100 ML's per hour. Remains on antibiotics in the form of Zosyn. Lovenox for DVT prophylaxis. Continued on Solu-Cortef. His abdominal discomfort is waxing and waning. A little more tender today. He remains nothing by mouth. Blood cultures revealed no growth. Blood glucose 151. Reevaluated today on 08/03/22, patient underwent sigmoid colectomy and end colostomy yesterday by Dr. Moyer mostly because of his sigmoid diverticulitis with perforation and abscess, patient came back to the ICU on mechanical ventilation. Remains intubated and mechanically ventilated. Patient is known to have severe end-stage COPD FEV1 is no more than 26%, however the benefits of the surgery obviously outweighed the risks. And surgery had to be done yesterday because the patient continued to have significant abdominal pain and tenderness. Patient is now on assist control rate of 16, volume 400 FiO2 50% and PEEP of 5, ABG showed a pO2 of 251 pCO2 42 pH of 7.45. His chest x-ray is showing minimal atelectasis, no infiltrate, no evidence of congestive heart failure, his electrolytes are normal renal profile is normal, CBC is relatively unremarkable. Hence I cut down his FiO2 to 35%, patient remains on enteral are at 100 mL an hour he is also on propofol at 50 mcg/kg/m, I have recommended stopping propofol, and was the patient is awake we will recommend checking weani ng parameters, and if reasonable proceed with a pressure support and CPAP with a pressure support of 10, follow-up ABG in 1 hour after being on pressure support and CPAP, and we will likely consider extubation later today. Reevaluated today on 08/04/2022, patient remains in the ICU, he is status post sigmoid colectomy and end colostomy with severe underlying COPD. FEV1 is in the range of 26%, surprisingly the patient is doing better than expected. Patient remains on 4 L nasal cannula with adequate O2 saturation, his ostomy is functioning well, remains on Zosyn, his also on TPN at 50 mL per hour. WBC count is 9.1 hemoglobin is 10.9. Basic metabolic profile is normal renal profile is normal. Chest x-ray yesterday showed minimal interstitial findings and COPD Reevaluated today on 08/05/2022, patient remains in the ICU, doing well, relatively asymptomatic, his ostomy is functioning well, pulmonary status is relatively stable in spite of its severity patient denies any abdominal pain, no shortness of breath, his labs were relatively normal including normal CBC and normal electrolytes normal renal profile hence I will transfer the patient out of the ICU to a regular medical floor. Reevaluated today on 08/06/2022, patient had his nasogastric tube removed yesterday, however he developed abdominal distention and a nasogastric tube was placed back again today significant amount of fluid was noted are of the stomach over 900 mL. Patient felt better nonetheless he remains a bit bloated, now he has a nasogastric tube back in place. Considering his symptoms I'm recommending that we keep him in the ICU today. Pulmonary-[facility] he is doing well in spite of his severe underlying COPD. Labs today showed relatively normal CBC and a relatively normal electrolytes bicarb is 33 BUN is 24 creatinine 0.89. Patient was seen by surgery today/Dr. gurrola, and he is recommending to keep the nasogastric tube in place. Patient was reevaluated today on 08/07/2022, feels less bloated, nasogastric tube remains in place and functional, his colostomy is also functional, he had 450 of NG output overnight. He is afebrile, WBC count is 6.1. Pulmonary-[facility] he is about the same, he has severe COPD but surprisingly not as symptomatic as expected. WBC count 6.1 hemoglobin 10.9 lites are normal renal profile is normal bicarb is 37 The patient is seen today 08/08/2022 in follow-up on the regular medical floor. He has moved out of the ICU yesterday. He is awake and alert in no acute distre ss. Maintaining good O2 saturations in the mid 90s on 3 L/m per nasal cannula. Afebrile. Hemodynamically stable. Nasogastric tube remains in place. Abdominal wound cultures are positive for gram-negative bacilli. Sputum culture revealed no growth. Blood culture reveals no growth. Sodium 137. Potassium 4.0. Bicarb 36. BUN 25. Creatinine 0.95. Glucose 134. She is continued on DuoNeb inhalations, Pulmicort and Perforomist inhalations, Solu-Cortef. Lovenox for DVT prophylaxis. Remains on TPN for nutritional support at 75 ML's per hour. Antibiotics in the form of Zosyn. The patient is seen today 08/09/2022 in follow-up on the regular medical floor. He is currently resting quite comfortably in bed. Awake and alert in no acute distress. Currently on oxygen at 3 L/m per nasal cannula. Being nourished with TPN at 75 ML's per hour. He is receiving lactated Ringer's at 100 ML's per hour. He has some lower extremity edema. White sodium 137. Potassium 3.9. Bicarb 34. BUN 24. Creatinine 1.00. Glucose 136. Abdominal cultures were positive for anaerobic gram-negative bacilli. Sputum culture revealed no growth. He is continued on DuoNeb inhalations, Pulmicort and Perforomist inhalations. Working well with the incentive spirometer. The patient is seen today 08/10/2022 in follow-up on the regular medical floor. He is currently sitting up in bed. Awake and alert in no acute distress. Maintaining good O2 saturations in the 90s on 3 L/m per nasal cannula. Sodium 139. Potassium 3.8. Bicarb 32. BUN 25. Creatinine 1.08. Glucose 127. He is continued on DuoNeb inhalations, Pulmicort and Perforomist inhalations. Chest x-ray showing some atelectasis. Working well with the incentive spirometer. Remains on Lovenox for DVT prophylaxis. His nasogastric tube has been removed. Abdominal x-ray revealed diffusely dilated small bowel loops measuring up to 4.5 cm suggesting postoperative ileus. He remains nothing by mouth except for ice chips per surgical services. Being nourished with TPN at 75 ML's per hour. Objective - Vital Signs Vital signs: Vital Signs Temp 98.1 F 08/10/22 07:20 Pulse 72 08/10/22 09:40 Resp 20 08/10/22 07:20 BP 124/70 08/10/22 07:20 Pulse Ox 97 08/10/22 09:00 FiO2 35 08/03/22 12:00 Intake & Output 08/09/22 08/10/22 08/10/22 18:59 06:59 18:59 Intake Total 1037.5 Output Total 850 622 Balance -850 415.5 Intake: Intake, IV Titration 1037.5 Amount Sodium Phosphate 15 mmol 1037.5 Sodium Chloride 4Meq/ml Vial 30 meq Potassium Chloride 26 meq Magnesium Sulfate gm 1 gm Calcium Gluconate 1 gm In Amino Acid 4.25%-D10w 1,000 ml @ 75 mls/hr IV .BY DURATION [facility] Rx#: [id number] Output: Urine 750 622 Stool 100 Other: Voiding Method Indwelling Catheter - Exam GENERAL EXAM: Alert, pleasant 72-year-old male, sitting up at the bedside, on 3 L nasal cannula, in no apparent distress. HEAD: Normocephalic. EYES: Normal reaction of pupils, equal size. NOSE: Nasogastric tube removed. Clear with pink turbinates. THROAT: No erythema or exudates. NECK: No masses, no JVD. CHEST: No chest wall deformity. LUNGS: Equal air entry with bilateral end expiratory wheeze, diminished. CVS: S1 and S2 normal with no audible murmur, regular rhythm. ABDOMEN: Postsurgical changes. Ostomy intact. Functioning. SPINE: No scoliosis or deformity SKIN: No rashes CENTRAL NERVOUS SYSTEM: No focal deficits, tone is normal in all 4 extremities. EXTREMITIES: There is no peripheral edema. No clubbing, no cyanosis. Peripheral pulses are intact. - Labs CBC & Chem 7: 08/07/22 03:56 08/10/22 06:10 Labs: Abnormal Lab Results - Last 24 Hours (Table) 08/09/22 08/09/22 08/09/22 Range/Units 12:22 18:19 23:32 Carbon Dioxide (22-30) mmol/L BUN (9-20) mg/dL Glucose (74-99) mg/dL POC Glucose (mg/dL) 125 H 124 H 115 H (70-110) mg/dL Calcium (8.4-10.2) mg/dL 08/10/22 08/10/22 Range/Units 06:10 06:14 Carbon Dioxide 32 H (22-30) mmol/L BUN 25 H (9-20) mg/dL Glucose 121 H (74-99) mg/dL POC Glucose (mg/dL) 127 H (70-110) mg/dL Calcium 8.0 L (8.4-10.2) mg/dL Assessment and Plan Assessment: Acute perforated sigmoid diverticulitis with abscess, status post sigmoid colectomy and end colostomy postoperative day #8. Nasogastric tube removed. Abdominal x-ray revealed diffusely dilated small bowel loops measuring up to 4.5 cm suggesting postoperative ileus. Remains nothing by mouth. Continued on TPN. History of diverticulosis Recent hospitalization for an acute COPD exacerbation back in June 2022, treated and the patient has recovered Advanced COPD with an FEV1 of 26% of predicted, the patient is chronically oxygen and steroid dependent taking prednisone 10 mg by mouth daily. Ex-smoker and the patient quit smoking 2 years ago Chronic hypoxic respiratory failure maternal O2 at 2 L nasal cannula Prostate cancer Acid reflux Plan: The patient was seen and evaluated Chest x-ray, abdominal x-ray, medications and labs reviewed Currently stable and on 3 L nasal cannula Continue bronchodilators Continue to work with the incentive spirometer Remains nothing by mouth TPN for nutritional support Increase his activity as tolerated We will continue to follow I have personally seen and examined the patient, performed the documentation and the assessment and plan as written. Number of minutes spent on the visit: 10.
[2022-08-10 12:10] LABS: Glucose,Whole Blood 122 mg/dL (70-110)
[2022-08-10 16:33] LABS: Glucose,Whole Blood 141 mg/dL (70-110)
--- NOTE | 2022-08-10 17:19 | P.PN ---
Subjective Progress Note Date: 08/10/22 72-year-old male with a past medical history of COPD home oxygen dependent on 3 L at all times, diverticulosis and GERD. He presented to the emergency department with a chief complaint of abdominal pain. CBC showing severe leukocytosis with WBC count of 18.7 with left shift with neutrophils of 17.1. BMP revealing mild prerenal azotemia with BUN of 21. Glucose was 132 and lactic acid was 1.3. Liver profile unremarkable. Troponin less than 0.012. Urinalysis was negative for infection. COVID PCR was negative. EKG was completed showing normal sinus rhythm and 99 bpm with no noted T-wave or ST a bnormalities showing no signs of acute ischemia. Chest x-ray showing COPD changes but negative for acute cardiopulmonary process. CT AP positive for acute sigmoid diverticulitis complicated by perforation and pockets of free intraperitoneal air measuring up to 5.5 cm accompanied by trace lower abdominal ascites, secondary small bowel ileus, small to moderate sized hiatal hernia, mild circumferential distal esophageal wall thickening, and prostamegaly with prostate measurement of 5.2 cm. Patient was admitted under General surgery team and [facility] consulted for medical management throughout hospitalization. Patient underwent sigmoidectomy on 08/02. Patient was extubated on 08/03. 08/08 Patient was seen and examined. Transferred out of ICU yesterday. He is having 800 cc output from his NG tube. He complains of chronic cough. No nausea or vomiting today. Wound cultures showing gram-negative bacilli. BMP shows a bicarb of 36, BUN of 25, glucose 134, albumin of 2.2 and calcium of 7.7. 08/09 Patient was seen and examined. He continues to complain of cough. No recorded output from NG tube. BMP shows bicarb of 34, BUN of 24, glucose of 136. Plans to DC NG tube today per surgery. 08/10 Patient was seen and examined. Tolerating ice chips well since NG tube was discontinued. BMP shows bicab 32, BUN 25, glucose 121, Ca 8. General: non toxic, no distress, appears at stated age Derm: warm, dry Head: atraumatic, normocephalic, symmetric, NG tube in place Eyes: EOMI, no lid lag, anicteric sclera Cardiovascular: S1S2 reg, no murmur Lungs: End expiratory wheezing bilateral, no rhonchi, no rales , no accessory muscle use Abdominal: distended, no guarding, no appreciable organomegaly, ostomy intact Ext: no gross muscle atrophy, 1+ LE edema, no contractures Neuro: no focal neuro deficits Psych: Alert, oriented, appropriate affect Assessment and Plan: Acute perforated diverticulitis with abscess Sigmoid colectomy with end colostomy on 08/02/2032 Sepsis on admission Anemia of chronic disease COPD on chronic prednisone, not in exacerbation Chronic hypoxemic respiratory failure on 2 L home O2 Based on my assessment of this patient, this patient meets a moderate complexity level of care. Patient has history of acute perforated diverticulitis with abscess status post sigmoid colectomy with end colostomy on 08/02/2032. He continues to have significant output from his NG tube. Wound culture growing gram negative bacilli. Receiving TPN for nutrition. Antibiotics: Zosyn 3.375 g IV Q8H Continue Protonix 40 mg IV QD. Zofran 4 mg Q8H PRN for N/V. Pain control: Dilaudid PRN for severe pain. Bronchodilators: DuoNeb 0.5mg-3mg/3ml scheduled and as needed for SOB and whee zing. Performist 20 mcg INH BID. Steroids: SoluCortef 25 mg IV BID. DVT ppx: Lovenox SQ Code status: Full code Anticipated discharge place: Pending clinical course Anticipated discharge time: Pending clinical course I have reviewed the following oracle application consultant notes: Pulmonology and Surgery note reviewed from 08/10. Plans to advance to [facility]. I have reviewed the results of the following tests: Wound cultures showing gram-negative bacilli. BMP shows bicab 32, BUN 25, glucose 121, Ca 8 I have ordered the following tests: BMP ordered for tomorrow morning. I have discussed the care of this patient with the following independent historian: I have independently interpreted the following test below: I have discussed the management of this patient with the following physician: Case discussed with Flora STACK, plans to DC NG tube. This patient has a high risk of morbidity due to the following reasons: Patient is on TPN - He needs daily monitoring of electrolytes. Objective - Vital Signs Vital signs: Vital Signs Temp 98.0 F 08/10/22 13:12 Pulse 70 08/10/22 16:06 Resp 21 08/10/22 13:12 BP 137/77 08/10/22 13:12 Pulse Ox 100 08/10/22 13:12 FiO2 35 08/03/22 12:00 Intake & Output 08/09/22 08/10/22 08/10/22 18:59 06:59 18:59 Intake Total 1037.5 Output Total 850 622 Balance -850 415.5 Intake: Intake, IV Titration 1037.5 Amount Sodium Phosphate 15 mmol 1037.5 Sodium Chloride 4Meq/ml Vial 30 meq Potassium Chloride 26 meq Magnesium Sulfate gm 1 gm Calcium Gluconate 1 gm In Amino Acid 4.25%-D10w 1,000 ml @ 75 mls/hr IV .BY DURATION [facility] Rx#: [id number] Output: Urine 750 622 Stool 100 Other: Voiding Method Indwelling Catheter - Labs CBC & Chem 7: 08/07/22 03:56 08/10/22 06:10 Labs: Abnormal Lab Results - Last 24 Hours (Table) 08/09/22 08/09/22 08/10/22 Range/Units 18:19 23:32 06:10 Carbon Dioxide 32 H (22-30) mmol/L BUN 25 H (9-20) mg/dL Glucose 121 H (74-99) mg/dL POC Glucose (mg/dL) 124 H 115 H (70-110) mg/dL Calcium 8.0 L (8.4-10.2) mg/dL 08/10/22 08/10/22 08/10/22 Range/Units 06:14 12:09 16:32 Carbon Dioxide (22-30) mmol/L BUN (9-20) mg/dL Glucose (74-99) mg/dL POC Glucose (mg/dL) 127 H 122 H 141 H (70-110) mg/dL Calcium (8.4-10.2) mg/dL
[2022-08-10 19:55] LABS: Glucose,Whole Blood 125 mg/dL (70-110)
[2022-08-11] MEDS: KETOROLAC 15 MG/ML 1 ML VIAL IVP SCH ×3 (05:06→17:49)
[2022-08-11] MEDS: PIPERACILLIN-TAZOBACTAM 3.375 GM in SODIUM CHLORIDE 0.9% 100 ML IVPB SCH ×3 (05:06→20:52)
[2022-08-11] MEDS: LACTATED RINGERS 1,000 ML IV SCH (05:06)
[2022-08-11] MEDS: HYDROmorphone 1 MG/ML 1 ML SYRINGE IVP PRN ×2 (07:50→15:49)
[2022-08-11] MEDS: ENOXAPARIN 40 MG/0.4 ML SYRINGE SQ SCH (07:51)
[2022-08-11] MEDS: PANTOPRAZOLE 40 MG/10 ML VIAL IV SCH (07:51)
[2022-08-11] MEDS: HYDROCORTISONE SUCCINATE 100 MG/2 ML VIAL IV SCH ×2 (07:51→20:53)
[2022-08-11 08:04] LABS: African American GFR (CKD) 85 (>60 ml/min/1.73 sqM); Anion Gap 4 mmol/L; Blood Urea Nitrogen 25 mg/dL (9-20); Carbon Dioxide 32 mmol/L (22-30); Chloride 103 mmol/L (98-107); Glucose 113 mg/dL (74-99); Magnesium 2.3 mg/dL (1.6-2.3); Non-African American GFR(CKD) 73 (>60 ml/min/1.73 sqM); Phosphorus 3.5 mg/dL (2.5-4.5); Potassium 3.7 mmol/L (3.5-5.1); Sodium 139 mmol/L (137-145)
[2022-08-11] MEDS: IPRATROPIUM-ALBUTEROL 3 ML NEB INHALATION SCH ×4 (09:37→20:52)
[2022-08-11] MEDS: BUDESONIDE 1 MG/2 ML NEBU INHALATION SCH ×2 (09:37→20:52)
[2022-08-11] MEDS: FORMOTEROL FUMARATE 20 MCG/2 ML NEBU INHALATION SCH ×2 (09:37→20:52)
[2022-08-11 11:30] LABS: Glucose,Whole Blood 139 mg/dL (70-110)
--- NOTE | 2022-08-11 11:50 | P.PN ---
Subjective Progress Note Date: 08/11/22 I was asked to evaluate this patient because of his advanced COPD and ongoing abdominal complications. The patient was seen in the emergency department. The patient is known to have diverticulosis he came in for an acute abdominal pain this morning. CAT scan of the abdomen was done and the patient was found to have acute sigmoid diverticulitis. This was a comp acute diverticulitis as perforation suspected and the patient had pockets of free intraperitoneal air measuring up to 5.5 cm in size. There is also trace lower abdominal ascites. No evidence of any abscess formation. Is also small bowel ileus. There is moderate size hiatal hernia also. The patient has a large prostate. Is known to have prostate cancer. The patient is also known to have advanced COPD. The patient is auction dependent. The patient is steroid dependent and is taking 10 mg of prednisone on a daily basis on outpatient basis. He has been followed up through our office. He has exertional dyspnea which is chronic in his significant limitation in exercise capacity because of his advanced COPD. No chest pain. No worsening shortness of breath. No swelling lower extremities. No previous history of DVT or pulmonary embolism. No nausea or emesis. No aspiration. GI surgeries on the case. Currently is on antibiotics. No plans for any surgery at this point in time. Blood work shows a WBC count of 18, he moglobin 13, normal cognition profile, BUN is 20 over the creatinine of 0.9. LFTs are normal. Lactic acid level is at 1.3. On today's evaluation of 07/30/2022, the patient's abdomen is less tender. The patient remains nothing by mouth. No worsening shortness of breath. The patient is on IV Zosyn. The patient is going to be treated conservatively. White cell count is at 14 with a hemoglobin of 11.1 and a platelet count of 245 noted the white cycles lower compared to yesterday. BUN is at 21 with a creatinine of 1.3. Sodium is at 143. Awake and alert and communicating. He remains on oxygen at 2 L/m nasal cannula. On 07/31/2022, the patient is doing well. No specific complaints. Abdominal pain is subsiding gradually. His COPD remains on IV Zosyn. No plans for any surgical intervention this point in time. The patient is known to have advanced COPD and the patient also has oxygen steroid dependent COPD and the patient is currently on hydrocortisone. IV fluids are in the form of D5 half-normal saline at rate of 100 mL an hour. The white cell count is down to 8.2 with hemoglobin 11.5 and a platelet count of 15. BUN is at 60 with a creatinine of 1 and his sodium level is at 137. The patient is seen today 08/01/2022 in follow-up on the regular medical floor. He is currently sitting up in bed. Awake and alert in no acute distress. Maintaining O2 saturations in the 90s on 2 L/m per nasal cannula. Currently on D5.45 normal saline at 100 ML's per hour. He is continued on Zosyn. His abdominal discomfort is gradually improving. Follow-up chest x-ray continues to show diffuse severe emphysematous changes with coarsened interstitium suspicious for chronic interstitial lung disease. Blood culture reveals no growth. White count 8.1. Hemoglobin 10.5. Platelets 225. Sodium 142. Potassium 3.9. Bicarb 26. BUN 11. Creatinine 1.0. Glucose 165. ProBNP 1500. Troponin negative 1. AST 12. ALT 13. Alk phos 39. Continued on DuoNeb inhalations. Lovenox for DVT prophylaxis. Remains on Solu-Cortef. The patient is seen today 08/02/2022 in follow-up on the regular medical floor. He is awake and alert in no acute distress. Resting fairly comfortably in bed. Maintaining good O2 saturations in the 90s on 2 L/m per nasal cannula. He is receiving D5 and half-normal saline at 100 ML's per hour. Remains on antibiotics in the form of Zosyn. Lovenox for DVT prophylaxis. Continued on Solu-Cortef. His abdominal discomfort is waxing and waning. A little more tender today. He remains nothing by mouth. Blood cultures revealed no growth. Blood glucose 151. Reevaluated today on 08/03/22, patient underwent sigmoid colectomy and end colostomy yesterday by Dr. Moyer mostly because of his sigmoid diverticulitis with perforation and abscess, patient came back to the ICU on mechanical ventilation. Remains intubated and mechanically ventilated. Patient is known to have severe end-stage COPD FEV1 is no more than 26%, however the benefits of the surgery obviously outweighed the risks. And surgery had to be done yesterday because the patient continued to have significant abdominal pain and tenderness. Patient is now on assist control rate of 16, volume 400 FiO2 50% and PEEP of 5, ABG showed a pO2 of 251 pCO2 42 pH of 7.45. His chest x-ray is showing minimal atelectasis, no infiltrate, no evidence of congestive heart failure, his electrolytes are normal renal profile is normal, CBC is relatively unremarkable. Hence I cut down his FiO2 to 35%, patient remains on enteral are at 100 mL an hour he is also on propofol at 50 mcg/kg/m, I have recommended stopping propofol, and was the patient is awake we will recommend checking weani ng parameters, and if reasonable proceed with a pressure support and CPAP with a pressure support of 10, follow-up ABG in 1 hour after being on pressure support and CPAP, and we will likely consider extubation later today. Reevaluated today on 08/04/2022, patient remains in the ICU, he is status post sigmoid colectomy and end colostomy with severe underlying COPD. FEV1 is in the range of 26%, surprisingly the patient is doing better than expected. Patient remains on 4 L nasal cannula with adequate O2 saturation, his ostomy is functioning well, remains on Zosyn, his also on TPN at 50 mL per hour. WBC count is 9.1 hemoglobin is 10.9. Basic metabolic profile is normal renal profile is normal. Chest x-ray yesterday showed minimal interstitial findings and COPD Reevaluated today on 08/05/2022, patient remains in the ICU, doing well, relatively asymptomatic, his ostomy is functioning well, pulmonary status is relatively stable in spite of its severity patient denies any abdominal pain, no shortness of breath, his labs were relatively normal including normal CBC and normal electrolytes normal renal profile hence I will transfer the patient out of the ICU to a regular medical floor. Reevaluated today on 08/06/2022, patient had his nasogastric tube removed yesterday, however he developed abdominal distention and a nasogastric tube was placed back again today significant amount of fluid was noted are of the stomach over 900 mL. Patient felt better nonetheless he remains a bit bloated, now he has a nasogastric tube back in place. Considering his symptoms I'm recommending that we keep him in the ICU today. Pulmonary-[facility] he is doing well in spite of his severe underlying COPD. Labs today showed relatively normal CBC and a relatively normal electrolytes bicarb is 33 BUN is 24 creatinine 0.89. Patient was seen by surgery today/Dr. gurrola, and he is recommending to keep the nasogastric tube in place. Patient was reevaluated today on 08/07/2022, feels less bloated, nasogastric tube remains in place and functional, his colostomy is also functional, he had 450 of NG output overnight. He is afebrile, WBC count is 6.1. Pulmonary-[facility] he is about the same, he has severe COPD but surprisingly not as symptomatic as expected. WBC count 6.1 hemoglobin 10.9 lites are normal renal profile is normal bicarb is 37 The patient is seen today 08/08/2022 in follow-up on the regular medical floor. He has moved out of the ICU yesterday. He is awake and alert in no acute distre ss. Maintaining good O2 saturations in the mid 90s on 3 L/m per nasal cannula. Afebrile. Hemodynamically stable. Nasogastric tube remains in place. Abdominal wound cultures are positive for gram-negative bacilli. Sputum culture revealed no growth. Blood culture reveals no growth. Sodium 137. Potassium 4.0. Bicarb 36. BUN 25. Creatinine 0.95. Glucose 134. She is continued on DuoNeb inhalations, Pulmicort and Perforomist inhalations, Solu-Cortef. Lovenox for DVT prophylaxis. Remains on TPN for nutritional support at 75 ML's per hour. Antibiotics in the form of Zosyn. The patient is seen today 08/09/2022 in follow-up on the regular medical floor. He is currently resting quite comfortably in bed. Awake and alert in no acute distress. Currently on oxygen at 3 L/m per nasal cannula. Being nourished with TPN at 75 ML's per hour. He is receiving lactated Ringer's at 100 ML's per hour. He has some lower extremity edema. White sodium 137. Potassium 3.9. Bicarb 34. BUN 24. Creatinine 1.00. Glucose 136. Abdominal cultures were positive for anaerobic gram-negative bacilli. Sputum culture revealed no growth. He is continued on DuoNeb inhalations, Pulmicort and Perforomist inhalations. Working well with the incentive spirometer. The patient is seen today 08/10/2022 in follow-up on the regular medical floor. He is currently sitting up in bed. Awake and alert in no acute distress. Maintaining good O2 saturations in the 90s on 3 L/m per nasal cannula. Sodium 139. Potassium 3.8. Bicarb 32. BUN 25. Creatinine 1.08. Glucose 127. He is continued on DuoNeb inhalations, Pulmicort and Perforomist inhalations. Chest x-ray showing some atelectasis. Working well with the incentive spirometer. Remains on Lovenox for DVT prophylaxis. His nasogastric tube has been removed. Abdominal x-ray revealed diffusely dilated small bowel loops measuring up to 4.5 cm suggesting postoperative ileus. He remains nothing by mouth except for ice chips per surgical services. Being nourished with TPN at 75 ML's per hour. Patient is seen today 08/11/2022 in follow-up on the regular medical floor. He is resting comfortably in bed. Awake and alert in no acute distress. Maintaining O2 saturations in the 90s on 3 L/m per nasal cannula. He is lactated Ringer's at 10 and I'll's per hour. He is receiving TPN at 75 ML's per hour. He remains on a full liquid diet. Tolerating it well. Ostomy functioning. Blood cultures revealed no growth. Abdominal wound cultures were positive for gram-negative bacilli. Sputum culture revealed no growth. Sodium 139. Potassium 3.7. Bicarb 32. BUN 25. Creatinine 1.02. Glucose 113. He is continued on DuoNeb inhalations, Pulmicort and Perforomist inhalations. Objective - Vital Signs Vital signs: Vital Signs Temp 97.7 F 08/11/22 07:33 Pulse 78 08/11/22 10:05 Resp 16 08/11/22 07:53 BP 139/81 08/11/22 07:33 Pulse Ox 98 08/11/22 09:37 FiO2 35 08/03/22 12:00 Intake & Output 08/10/22 08/11/22 08/11/22 18:59 06:59 18:59 Intake Total 1037.5 Output Total 325 Balance 1037.5 -325 Intake: Intake, IV Titration 1037.5 Amount Sodium Phosphate 15 mmol 1037.5 Sodium Chloride 4Meq/ml Vial 30 meq Potassium Chloride 26 meq Magnesium Sulfate gm 1 gm Calcium Gluconate 1 gm In Amino Acid 4.25%-D10w 1,000 ml @ 75 mls/hr IV .BY D[facility]ATION [facility] Rx#: [id number] Output: Urine 300 Uretheral (Art) 300 Stool 25 Other: Voiding Method Indwelling Catheter - Exam GENERAL EXAM: Alert, pleasant 72-year-old male, resting in bed, on 3 L nasal cannula, in no apparent distress. HEAD: Normocephalic. EYES: Normal reaction of pupils, equal size. NOSE: Nasogastric tube removed. Clear with pink turbinates. THROAT: No erythema or exudates. NECK: No masses, no JVD. CHEST: No chest wall deformity. LUNGS: Equal air entry with bilateral end expiratory wheeze, diminished. CVS: S1 and S2 normal with no audible murmur, regular rhythm. ABDOMEN: Postsurgical changes. Ostomy intact. Functioning with liquid stool. SPINE: No scoliosis or deformity SKIN: No rashes CENTRAL NERVOUS SYSTEM: No focal deficits, tone is normal in all 4 extremities. EXTREMITIES: There is no peripheral edema. No clubbing, no cyanosis. Peripheral pulses are intact. - Labs CBC & Chem 7: 08/07/22 03:56 08/11/22 07:36 Labs: Abnormal Lab Results - Last 24 Hours (Table) 08/10/22 08/10/22 08/10/22 Range/Units 12:09 16:32 19:54 Carbon Dioxide (22-30) mmol/L BUN (9-20) mg/dL Glucose (74-99) mg/dL POC Glucose (mg/dL) 122 H 141 H 125 H (70-110) mg/dL Calcium (8.4-10.2) mg/dL 08/11/22 08/11/22 Range/Units 07:36 11:29 Carbon Dioxide 32 H (22-30) mmol/L BUN 25 H (9-20) mg/dL Glucose 113 H (74-99) mg/dL POC Glucose (mg/dL) 139 H (70-110) mg/dL Calcium 8.0 L (8.4-10.2) mg/dL Assessment and Plan Assessment: Acute perforated sigmoid diverticulitis with abscess, status post sigmoid colectomy and end colostomy postoperative day #9. Nasogastric tube removed. Abdominal x-ray revealed diffusely dilated small bowel loops measuring up to 4.5 cm suggesting postoperative ileus. There is liquid stool and gas in the ostomy. Continued on TPN. Tolerating a full liquid diet. History of diverticulosis Recent hospitalization for an acute COPD exacerbation back in June 2022, treated and the patient has recovered Advanced COPD with an FEV1 of 26% of predicted, the patient is chronically o xygen and steroid dependent taking prednisone 10 mg by mouth daily. Ex-smoker and the patient quit smoking 2 years ago Chronic hypoxic respiratory failure maternal O2 at 2 L nasal cannula Prostate cancer Acid reflux Plan: The patient was seen and evaluated Medications and labs reviewed Continue to work with the incentive spirometer Tolerating a full liquid diet TPN for nutritional support Increase his activity as tolerated We will continue to follow I have personally seen and examined the patient, performed the documentation and the assessment and plan as written. Number of minutes spent on the visit: 10.
--- NOTE | 2022-08-11 12:17 | P.PN ---
Subjective Progress Note Date: 08/11/22 72-year-old male with a past medical history of COPD home oxygen dependent on 3 L at all times, diverticulosis and GERD. He presented to the emergency department with a chief complaint of abdominal pain. CBC showing severe leukocytosis with WBC count of 18.7 with left shift with neutrophils of 17.1. BMP revealing mild prerenal azotemia with BUN of 21. Glucose was 132 and lactic acid was 1.3. Liver profile unremarkable. Troponin less than 0.012. Urinalysis was negative for infection. COVID PCR was negative. EKG was completed showing normal sinus rhythm and 99 bpm with no noted T-wave or ST a bnormalities showing no signs of acute ischemia. Chest x-ray showing COPD changes but negative for acute cardiopulmonary process. CT AP positive for acute sigmoid diverticulitis complicated by perforation and pockets of free intraperitoneal air measuring up to 5.5 cm accompanied by trace lower abdominal ascites, secondary small bowel ileus, small to moderate sized hiatal hernia, mild circumferential distal esophageal wall thickening, and prostamegaly with prostate measurement of 5.2 cm. Patient was admitted under General surgery team and [facility] consulted for medical management throughout hospitalization. Patient underwent sigmoidectomy on 08/02. Patient was extubated on 08/03. 08/08 Patient was seen and examined. Transferred out of ICU yesterday. He is having 800 cc output from his NG tube. He complains of chronic cough. No nausea or vomiting today. Wound cultures showing gram-negative bacilli. BMP shows a bicarb of 36, BUN of 25, glucose 134, albumin of 2.2 and calcium of 7.7. 08/09 Patient was seen and examined. He continues to complain of cough. No recorded output from NG tube. BMP shows bicarb of 34, BUN of 24, glucose of 136. Plans to DC NG tube today per surgery. 08/10 Patient was seen and examined. Tolerating ice chips well since NG tube was discontinued. BMP shows bicab 32, BUN 25, glucose 121, Ca 8. 08/11 Patient was seen and examined. Tolerating FLD well. He denies nausea or vomiting. He reports well controlled abdominal pain. BMP shows bicab 32, BUN 25, glucose 113, Ca 8. General: non toxic, no distress, appears at stated age Derm: warm, dry Head: atraumatic, normocephalic, symmetric, NG tube in place Eyes: EOMI, no lid lag, anicteric sclera Cardiovascular: S1S2 reg, no murmur Lungs: End expiratory wheezing bilateral, no rhonchi, no rales , no accessory muscle use Abdominal: distended, no guarding, no appreciable organomegaly, ostomy intact Ext: no gross muscle atrophy, 1+ LE edema, no contractures Neuro: no focal neuro deficits Psych: Alert, oriented, appropriate affect Assessment and Plan: Acute perforated diverticulitis with abscess Sigmoid colectomy with end colostomy on 08/02/2032 Sepsis on admission Anemia of chronic disease COPD on chronic prednisone, not in exacerbation Chronic hypoxemic respiratory failure on 2 L home O2 Based on my assessment of this patient, this patient meets a moderate complexity level of care. Patient has history of acute perforated diverticulitis with abscess status post sigmoid colectomy with end colostomy on 08/02/2032. He continues to have significant output from his NG tube. Wound culture growing gram negative bacilli. Receiving TPN for nutrition. Antibiotics: Zosyn 3.375 g IV Q8H Continue Protonix 40 mg IV QD. Zofran 4 mg Q8H PRN for N/V. Pain control: Dilaudid PRN for severe pain. Bronchodilators: DuoNeb 0.5mg-3mg/3ml scheduled and as needed for SOB and wheezing. Performist 20 mcg INH BID. Steroids: SoluCortef 25 mg IV BID. DVT ppx: Lovenox SQ Code status: Full code Anticipated discharge place: Pending clinical course Anticipated discharge time: Pending clinical course I have reviewed the following quality assurance consultant notes: Pulmonology note reviewed from 08/11. I have reviewed the results of the following tests: BMP shows bicab 32, BUN 25, glucose 113, Ca 8. I have discussed the management of this patient with the following physician: Case discussed with Flora PEANUT SHELLER, monitor for one more day. This patient has a moderate risk of morbidity due to the following reasons: Patient is on TPN - He needs daily monitoring of electrolytes. Patient now considering SNF on discharge. Discussed with case management, will start working on insurance authorization. Anticipate DC in 1-2 days. Objective - Vital Signs Vital signs: Vital Signs Temp 97.7 F 08/11/22 07:33 Pulse 78 08/11/22 10:05 Resp 16 08/11/22 07:53 BP 139/81 08/11/22 07:33 Pulse Ox 98 08/11/22 09:37 FiO2 35 08/03/22 12:00 Intake & Output 08/10/22 08/11/22 08/11/22 18:59 06:59 18:59 Intake Total 1037.5 Output Total 325 Balance 1037.5 -325 Intake: Intake, IV Titration 1037.5 Amount Sodium Phosphate 15 mmol 1037.5 Sodium Chloride 4Meq/ml Vial 30 meq Potassium Chloride 26 meq Magnesium Sulfate gm 1 gm Calcium Gluconate 1 gm In Amino Acid 4.25%-D10w 1,000 ml @ 75 mls/hr IV .BY DURATION [facility] Rx#: [id number] Output: Urine 300 Uretheral (Art) 300 Stool 25 Other: Voiding Method Indwelling Catheter - Labs CBC & Chem 7: 08/07/22 03:56 08/11/22 07:36 Labs: Abnormal Lab Results - Last 24 Hours (Table) 08/10/22 08/10/22 08/11/22 Range/Units 16:32 19:54 07:36 Carbon Dioxide 32 H (22-30) mmol/L BUN 25 H (9-20) mg/dL Glucose 113 H (74-99) mg/dL POC Glucose (mg/dL) 141 H 125 H (70-110) mg/dL Calcium 8.0 L (8.4-10.2) mg/dL 08/11/22 Range/Units 11:29 Carbon Dioxide (22-30) mmol/L BUN (9-20) mg/dL Glucose (74-99) mg/dL POC Glucose (mg/dL) 139 H (70-110) mg/dL Calcium (8.4-10.2) mg/dL
--- NOTE | 2022-08-11 13:12 | P.PN ---
Subjective Progress Note Date: 08/10/22 Principal diagnosis: Perforated diverticulitis and peritonitis Patient is a 72-year-old male presenting to the hospital abdominal pain has been diagnosed with acute diverticulitis with perforation treated medically did not have improvement subsequently was taken to the OR on 08/02/2022 and the patient is status post laparotomy; colectomy and diverting colostomy. On today's evaluation that is 08/10/2022, the patient remains to be afebrile, patient is breathing comfortably on 3L nasal cannula oxygen, patient nausea vomiting , and she has been discontinued abdominal pain is currently controlled, patient did have output in his colostomy Objective - Vital Signs Vital signs: Vital Signs Temp 98.1 F 08/10/22 07:20 Pulse 68 08/10/22 12:22 Resp 20 08/10/22 07:20 BP 124/70 08/10/22 07:20 Pulse Ox 97 08/10/22 09:00 FiO2 35 08/03/22 12:00 Intake & Output 08/09/22 08/10/22 08/10/22 18:59 06:59 18:59 Intake Total 1037.5 Output Total 850 622 Balance -850 415.5 Intake: Intake, IV Titration 1037.5 Amount Sodium Phosphate 15 mmol 1037.5 Sodium Chloride 4Meq/ml Vial 30 meq Potassium Chloride 26 meq Magnesium Sulfate gm 1 gm Calcium Gluconate 1 gm In Amino Acid 4.25%-D10w 1,000 ml @ 75 mls/hr IV .BY DURATION [facility] Rx#: [id number] Output: Urine 750 622 Stool 100 Other: Voiding Method Indwelling Catheter - Exam GENERAL DESCRIPTION: An elderly male up in the chair in no distress RESPIRATORY SYSTEM: Unlabored breathing , decreased breath sounds at bases HEART: S1 S2 regular rate and rhythm , ABDOMEN: Soft , no tenderness EXTREMITIES: No edema feet - Labs CBC & Chem 7: 08/07/22 03:56 08/11/22 07:36 Labs: Abnormal Lab Results - Last 24 Hours (Table) 08/09/22 08/09/22 08/10/22 Range/Units 18:19 23:32 06:10 Carbon Dioxide 32 H (22-30) mmol/L BUN 25 H (9-20) mg/dL Glucose 121 H (74-99) mg/dL POC Glucose (mg/dL) 124 H 115 H (70-110) mg/dL Calcium 8.0 L (8.4-10.2) mg/dL 08/10/22 08/10/22 Range/Units 06:14 12:09 Carbon Dioxide (22-30) mmol/L BUN (9-20) mg/dL Glucose (74-99) mg/dL POC Glucose (mg/dL) 127 H 122 H (70-110) mg/dL Calcium (8.4-10.2) mg/dL Assessment and Plan (1) Diverticulitis of colon with perforation Current Visit: Yes Status: Acute Code(s): K57.20 - DVTRCLI OF LG INT W PERFORATION AND ABSCESS W/O BLEEDING SNOMED Code(s): 36537580 Plan: 1patient was in the hospital with abdominal pain has been diagnosed with a complicated diverticulitis failing medical therapy and the patient subsequently status post laparotomy sigmoid colectomy and diverting colostomy with concern for secondary peritonitis from perforated sigmoid diverticulitis and need to cover for enteric gram-negative both aerobes and anaerobes 2-patient abdominal cultures are currently group B strep and anaerobic gram- negative bacilli 3-the patient remains to be afebrile white count has been normal 4-the patient to continue with Zosyn while inpatient and monitor his clinical course closely Time with Patient: Less than 30
--- NOTE | 2022-08-11 13:13 | P.PN ---
Subjective Progress Note Date: 08/11/22 Principal diagnosis: Perforated diverticulitis and peritonitis Patient is a 72-year-old male presenting to the hospital abdominal pain has been diagnosed with acute diverticulitis with perforation treated medically did not have improvement subsequently was taken to the OR on 08/02/2022 and the patient is status post laparotomy; colectomy and diverting colostomy. On today's evaluation that is 08/11/2022, the patient continues to be afebrile, patient is breathing comfortably on 3L nasal cannula oxygen, patient nausea vomiting and abdominal pain is currently controlled, patient did have output in his colostomy, feeling better no new symptoms Objective - Vital Signs Vital signs: Vital Signs Temp 97.7 F 08/11/22 07:33 Pulse 76 08/11/22 12:30 Resp 16 08/11/22 07:53 BP 139/81 08/11/22 07:33 Pulse Ox 98 08/11/22 09:37 FiO2 35 08/03/22 12:00 Intake & Output 08/10/22 08/11/22 08/11/22 18:59 06:59 18:59 Intake Total 1037.5 Output Total 325 Balance 1037.5 -325 Intake: Intake, IV Titration 1037.5 Amount Sodium Phosphate 15 mmol 1037.5 Sodium Chloride 4Meq/ml Vial 30 meq Potassium Chloride 26 meq Magnesium Sulfate gm 1 gm Calcium Gluconate 1 gm In Amino Acid 4.25%-D10w 1,000 ml @ 75 mls/hr IV .BY DURATION [facility] Rx#: [id number] Output: Urine 300 Uretheral (Art) 300 Stool 25 Other: Voiding Method Indwelling Catheter - Exam GENERAL DESCRIPTION: An elderly male up in the chair in no distress RESPIRATORY SYSTEM: Unlabored breathing , decreased breath sounds at bases HEART: S1 S2 regular rate and rhythm , ABDOMEN: Soft , no tenderness EXTREMITIES: No edema feet - Labs CBC & Chem 7: 08/07/22 03:56 08/11/22 07:36 Labs: Abnormal Lab Results - Last 24 Hours (Table) 08/10/22 08/10/22 08/11/22 Range/Units 16:32 19:54 07:36 Carbon Dioxide 32 H (22-30) mmol/L BUN 25 H (9-20) mg/dL Glucose 113 H (74-99) mg/dL POC Glucose (mg/dL) 141 H 125 H (70-110) mg/dL Calcium 8.0 L (8.4-10.2) mg/dL 08/11/ Range/Units 11:29 Carbon Dioxide (22-30) mmol/L BUN (9-20) mg/dL Glucose (74-99) mg/dL POC Glucose (mg/dL) 139 H (70-110) mg/dL Calcium (8.4-10.2) mg/dL Assessment and Plan (1) Diverticulitis of colon with perforation Current Visit: Yes Status: Acute Code(s): K57.20 - DVTRCLI OF LG INT W PERFORATION AND ABSCESS W/O BLEEDING SNOMED Code(s): 93775859 Plan: 1patient was in the hospital with abdominal pain has been diagnosed with a complicated diverticulitis failing medical therapy and the patient subsequently status post laparotomy sigmoid colectomy and diverting colostomy with concern for secondary peritonitis from perforated sigmoid diverticulitis and need to co keith for enteric gram-negative both aerobes and anaerobes 2-patient abdominal cultures are currently group B strep and anaerobic gram- negative bacilli 3-the patient remains to be afebrile white count has been normal 4-the patient to continue with Zosyn will waiting for GI issues to be resolved and oral intake improves and hopefully to finish therapy with oral antibiotic Time with Patient: Less than 30
--- NOTE | 2022-08-11 13:43 | P.PN ---
Subjective Progress Note Date: 08/11/22 CHIEF COMPLAINT: Perforated diverticulitis HISTORY OF PRESENT ILLNESS: Patient is postop day #9 status post sigmoid colectomy with end colostomy for perforated diverticulitis with abscess. Patient reports that he is starting to feel better. He still occasionally gets sharp pains across the abdomen. I'm he did have pain this morning with nausea. His ostomy is functioning. He is tolerating the full liquids, but going slow with his intake. He feels weak. Complains of bilateral lower extremity wea kness more so on the left. They're working on ECF placement. Infectious diseases recommending oral antibiotics at discharge. Afebrile. Patient seen and examined with Dr. meadows PHYSICAL EXAM: VITAL SIGNS: Reviewed. GENERAL: Well-developed in no acute distress. HEENT: No sclera icterus. Extraocular movements grossly intact. Moist buccal mucosa. Head is atraumatic, normocephalic. ABDOMEN: mildly distended. Ostomy functioning. Serosanguineous Drainage from abdominal incision with packing in place NEUROLOGIC: Alert and oriented. Cranial nerves II through XII grossly intact. ASSESSMENT: 1. Perforated diverticulitis with abscess status post sigmoid colectomy with end colostomy 2. History of COPD 3. Postoperative ileus PLAN: -Continue full liquid diet -Wean off TPN -Continue to monitor abdominal incision drainage -Continue local wound care -Anticipate discharge possibly tomorrow -Discharge antibiotics per ID service -Continue pain management -Patient will need ECF placement at discharge -DVT prophylaxis Lovenox and GI prophylaxis Protonix Physician Foundation Relations Manager note has been reviewed by physician. Signing provider agrees with the documented findings, assessment, and plan of care. Objective - Vital Signs Vital signs: Vital Signs Temp 98.4 F 08/11/22 13:36 Pulse 76 08/11/22 13:36 Resp 19 08/11/22 13:36 BP 135/83 08/11/22 13:36 Pulse Ox 98 08/11/22 13:36 FiO2 35 08/03/22 12:00 Intake & Output 08/10/22 08/11/22 08/11/22 18:59 06:59 18:59 Intake Total 1037.5 Output Total 325 Balance 1037.5 -325 Intake: Intake, IV Titration 1037.5 Amount Sodium Phosphate 15 mmol 1037.5 Sodium Chloride 4Meq/ml Vial 30 meq Potassium Chloride 26 meq Magnesium Sulfate gm 1 gm Calcium Gluconate 1 gm In Amino Acid 4.25%-D10w 1,000 ml @ 75 mls/hr IV .BY DURATION [facility] Rx#: [id number] Output: Urine 300 Uretheral (Art) 300 Stool 25 Other: Voiding Method Indwelling Catheter - Labs CBC & Chem 7: 08/07/22 03:56 08/11/22 07:36 Labs: Abnormal Lab Results - Last 24 Hours (Table) 08/10/22 08/10/22 08/11/22 Range/Units 16:32 19:54 07:36 Carbon Dioxide 32 H (22-30) mmol/L BUN 25 H (9-20) mg/dL Glucose 113 H (74-99) mg/dL POC Glucose (mg/dL) 141 H 125 H (70-110) mg/dL Calcium 8.0 L (8.4-10.2) mg/dL 08/11/22 Range/Units 11:29 Carbon Dioxide (22-30) mmol/L BUN (9-20) mg/dL Glucose (74-99) mg/dL POC Glucose (mg/dL) 139 H (70-110) mg/dL Calcium (8.4-10.2) mg/dL
[2022-08-11 16:27] LABS: Glucose,Whole Blood 120 mg/dL (70-110)
[2022-08-11] MEDS: ONDANSETRON 4 MG/2 ML VIAL IVP PRN (21:28)
[2022-08-11 21:47] LABS: Glucose,Whole Blood 107 mg/dL (70-110)
[2022-08-12 00:24] LABS: Glucose,Whole Blood 118 mg/dL (70-110)
[2022-08-12] MEDS: KETOROLAC 15 MG/ML 1 ML VIAL IVP SCH ×4 (00:49→18:23)
[2022-08-12] MEDS ORDERED: METOCLOPRAMIDE 5 MG/ML 2 ML VIAL IVP STA (03:04)
[2022-08-12 04:05] LABS: HGB 11.1 gm/dL (13.0-17.5); MCH 29.6 pg (25.0-35.0); MCHC 31.6 g/dL (31.0-37.0); MCV 93.7 fL (80.0-100.0); Mean Platelet Volume 7.9; Platelet Count 443 k/uL (150-450); RBC 3.74 m/uL (4.30-5.90)
[2022-08-12 04:14] LABS: Chloride 101 mmol/L (98-107)
[2022-08-12 04:17] LABS: African American GFR (CKD) 83 (>60 ml/min/1.73 sqM); Anion Gap 3 mmol/L; Blood Urea Nitrogen 23 mg/dL (9-20); Calcium 8.2 mg/dL (8.4-10.2); Carbon Dioxide 36 mmol/L (22-30); Glucose 112 mg/dL (74-99); Magnesium 2.2 mg/dL (1.6-2.3); Non-African American GFR(CKD) 72 (>60 ml/min/1.73 sqM); Phosphorus 3.6 mg/dL (2.5-4.5); Potassium 3.7 mmol/L (3.5-5.1); Sodium 140 mmol/L (137-145)
[2022-08-12] MEDS ORDERED: TRIMETHOBENZAMIDE 100 MG/ML 2 ML VIAL IM STA (04:31)
[2022-08-12] MEDS ORDERED: PROCHLORPERAZINE INJ 10 MG/2 ML VIAL IVP STA (04:32)
[2022-08-12] MEDS: PIPERACILLIN-TAZOBACTAM 3.375 GM in SODIUM CHLORIDE 0.9% 100 ML IVPB SCH ×3 (04:54→21:47)
[2022-08-12 05:35] LABS: Glucose,Whole Blood 110 mg/dL (70-110)
[2022-08-12] MEDS: PANTOPRAZOLE 40 MG/10 ML VIAL IV SCH (08:25)
[2022-08-12] MEDS: ENOXAPARIN 40 MG/0.4 ML SYRINGE SQ SCH (08:25)
[2022-08-12] MEDS: HYDROCORTISONE SUCCINATE 100 MG/2 ML VIAL IV SCH ×2 (08:25→21:48)
[2022-08-12] MEDS: LACTATED RINGERS 1,000 ML IV SCH (08:28)
[2022-08-12] MEDS: IPRATROPIUM-ALBUTEROL 3 ML NEB INHALATION SCH ×5 (08:38→20:08)
[2022-08-12] MEDS: BUDESONIDE 1 MG/2 ML NEBU INHALATION SCH ×3 (08:38→20:08)
[2022-08-12] MEDS: FORMOTEROL FUMARATE 20 MCG/2 ML NEBU INHALATION SCH ×3 (08:38→20:08)
--- NOTE | 2022-08-12 10:06 | P.PN ---
Progress Note - Text Progress Note Date: 08/12/22 Patient's resting comfortably in his bed. Patient states he feels well however. Per the nursing staff patient vomited several times last night. On exam vital signs are stable. Abdomen is soft. Colostomy is functioning was some stool. The Patient will likely has an ileus related to surgery. The patient's discharge will be on hold. He will remain on full liquids for now.
[2022-08-12 11:20] LABS: Glucose,Whole Blood 119 mg/dL (70-110)
[2022-08-12] MEDS ORDERED: FUROSEMIDE 10 MG/ML 4 ML VIAL IV STA (11:58)
[2022-08-12] MEDS: ONDANSETRON 4 MG/2 ML VIAL IVP PRN ×2 (12:23→22:02)
--- NOTE | 2022-08-12 13:10 | P.PN ---
Subjective Progress Note Date: 08/12/22 Principal diagnosis: Perforated diverticulitis and peritonitis Patient is a 72-year-old male presenting to the hospital abdominal pain has been diagnosed with acute diverticulitis with perforation treated medically did not have improvement subsequently was taken to the OR on 08/02/2022 and the patient is status post laparotomy; colectomy and diverting colostomy. On today's evaluation that is 08/12/2022, the patient remains to be afebrile, patient is breathing comfortably on 3L nasal cannula oxygen, patient did mention multiple episodes of vomiting last night, her diet has been switched to clear liquid that her output in his colostomy bag no chest pain shortness of breath or cough Objective - Vital Signs Vital signs: Vital Signs Temp 98.4 F 08/12/22 08:00 Pulse 70 08/12/22 12:13 Resp 17 08/12/22 08:00 BP 125/80 08/12/22 08:00 Pulse Ox 94 L 08/12/22 08:00 FiO2 35 08/03/22 12:00 Intake & Output 08/11/22 08/12/22 08/12/22 18:59 06:59 18:59 Intake Total 107.5 0 Output Total 1200 825 Balance -1092.5 -825 Weight 73.4 kg Intake: Intake, IV Titration 107.5 Amount Sodium Phosphate 15 mmol 107.5 Sodium Chloride 4Meq/ml Vial 30 meq Potassium Chloride 30 meq Magnesium Sulfate gm 0.75 gm Calcium Gluconate 1 gm In Amino Acid 4.25%-D10w 1, 000 ml @ 75 mls/hr IV .BY DURATION [facility] Rx#: [id number] Oral 0 Output: Urine 1200 300 Stool 25 Emesis 500 Other: Voiding Method Indwelling Catheter Indwelling Catheter Indwelling Catheter # Emeses 8 - Exam GENERAL DESCRIPTION: An elderly male up in the chair in no distress RESPIRATORY SYSTEM: Unlabored breathing , decreased breath sounds at bases HEART: S1 S2 regular rate and rhythm , ABDOMEN: Soft , no tenderness EXTREMITIES: No edema feet - Labs CBC & Chem 7: 08/12/22 03:46 08/12/22 03:46 Labs: Abnormal Lab Results - Last 24 Hours (Table) 08/11/22 08/12/22 08/12/22 Range/Units 16:23 00:22 03:46 RBC (4.30-5.90) m/uL Hgb (13.0-17.5) gm/dL Hct (39.0-53.0) % Carbon Dioxide 36 H (22-30) mmol/L BUN 23 H (9-20) mg/dL Glucose 112 H (74-99) mg/dL POC Glucose (mg/dL) 120 H 118 H (70-110) mg/dL Calcium 8.2 L (8.4-10.2) mg/dL 08/12/22 08/12/22 Range/Units 03:46 11:19 RBC 3.74 L (4.30-5.90) m/uL Hgb 11.1 L (13.0-17.5) gm/dL Hct 35.0 L (39.0-53.0) % Carbon Dioxide (22-30) mmol/L BUN (9-20) mg/dL Glucose (74-99) mg/dL POC Glucose (mg/dL) 119 H (70-110) mg/dL Calcium (8.4-10.2) mg/dL Assessment and Plan (1) Diverticulitis of colon with perforation Current Visit: Yes Status: Acute Code(s): K57.20 - DVTRCLI OF LG INT W PERFORATION AND ABSCESS W/O BLEEDING SNOMED Code(s): 25612236 Plan: 1patient was in the hospital with abdominal pain has been diagnosed with a complicated diverticulitis failing medical therapy and the patient subsequently status post laparotomy sigmoid colectomy and diverting colostomy with concern for secondary peritonitis from perforated sigmoid diverticulitis and need to cover for enteric gram-negative both aerobes and anaerobes 2-patient abdominal cultures are currently group B strep and anaerobic gram- negative bacilli 3-the patient remains to be afebrile white count has been normal 4-the patient will be continued with Zosyn and monitor his clinical course closely Time with Patient: Less than 30
--- NOTE | 2022-08-12 14:26 | P.PN ---
Subjective Progress Note Date: 08/12/22 I was asked to evaluate this patient because of his advanced COPD and ongoing abdominal complications. The patient was seen in the emergency department. The patient is known to have diverticulosis he came in for an acute abdominal pain this morning. CAT scan of the abdomen was done and the patient was found to have acute sigmoid diverticulitis. This was a comp acute diverticulitis as perforation suspected and the patient had pockets of free intraperitoneal air measuring up to 5.5 cm in size. There is also trace lower abdominal ascites. No evidence of any abscess formation. Is also small bowel ileus. There is moderate size hiatal hernia also. The patient has a large prostate. Is known to have prostate cancer. The patient is also known to have advanced COPD. The patient is auction dependent. The patient is steroid dependent and is taking 10 mg of prednisone on a daily basis on outpatient basis. He has been followed up through our office. He has exertional dyspnea which is chronic in his significant limitation in exercise capacity because of his advanced COPD. No chest pain. No worsening shortness of breath. No swelling lower extremities. No previous history of DVT or pulmonary embolism. No nausea or emesis. No aspiration. GI surgeries on the case. Currently is on antibiotics. No plans for any surgery at this point in time. Blood work shows a WBC count of 18, he moglobin 13, normal cognition profile, BUN is 20 over the creatinine of 0.9. LFTs are normal. Lactic acid level is at 1.3. On today's evaluation of 07/30/2022, the patient's abdomen is less tender. The patient remains nothing by mouth. No worsening shortness of breath. The patient is on IV Zosyn. The patient is going to be treated conservatively. White cell count is at 14 with a hemoglobin of 11.1 and a platelet count of 245 noted the white cycles lower compared to yesterday. BUN is at 21 with a creatinine of 1.3. Sodium is at 143. Awake and alert and communicating. He remains on oxygen at 2 L/m nasal cannula. On 07/31/2022, the patient is doing well. No specific complaints. Abdominal pain is subsiding gradually. His COPD remains on IV Zosyn. No plans for any surgical intervention this point in time. The patient is known to have advanced COPD and the patient also has oxygen steroid dependent COPD and the patient is currently on hydrocortisone. IV fluids are in the form of D5 half-normal saline at rate of 100 mL an hour. The white cell count is down to 8.2 with hemoglobin 11.5 and a platelet count of 15. BUN is at 60 with a creatinine of 1 and his sodium level is at 137. The patient is seen today 08/01/2022 in follow-up on the regular medical floor. He is currently sitting up in bed. Awake and alert in no acute distress. Maintaining O2 saturations in the 90s on 2 L/m per nasal cannula. Currently on D5.45 normal saline at 100 ML's per hour. He is continued on Zosyn. His abdominal discomfort is gradually improving. Follow-up chest x-ray continues to show diffuse severe emphysematous changes with coarsened interstitium suspicious for chronic interstitial lung disease. Blood culture reveals no growth. White count 8.1. Hemoglobin 10.5. Platelets 225. Sodium 142. Potassium 3.9. Bicarb 26. BUN 11. Creatinine 1.0. Glucose 165. ProBNP 1500. Troponin negative 1. AST 12. ALT 13. Alk phos 39. Continued on DuoNeb inhalations. Lovenox for DVT prophylaxis. Remains on Solu-Cortef. The patient is seen today 08/02/2022 in follow-up on the regular medical floor. He is awake and alert in no acute distress. Resting fairly comfortably in bed. Maintaining good O2 saturations in the 90s on 2 L/m per nasal cannula. He is receiving D5 and half-normal saline at 100 ML's per hour. Remains on antibiotics in the form of Zosyn. Lovenox for DVT prophylaxis. Continued on Solu-Cortef. His abdominal discomfort is waxing and waning. A little more tender today. He remains nothing by mouth. Blood cultures revealed no growth. Blood glucose 151. Reevaluated today on 08/03/22, patient underwent sigmoid colectomy and end colostomy yesterday by Dr. Moyer mostly because of his sigmoid diverticulitis with perforation and abscess, patient came back to the ICU on mechanical ventilation. Remains intubated and mechanically ventilated. Patient is known to have severe end-stage COPD FEV1 is no more than 26%, however the benefits of the surgery obviously outweighed the risks. And surgery had to be done yesterday because the patient continued to have significant abdominal pain and tenderness. Patient is now on assist control rate of 16, volume 400 FiO2 50% and PEEP of 5, ABG showed a pO2 of 251 pCO2 42 pH of 7.45. His chest x-ray is showing minimal atelectasis, no infiltrate, no evidence of congestive heart failure, his electrolytes are normal renal profile is normal, CBC is relatively unremarkable. Hence I cut down his FiO2 to 35%, patient remains on enteral are at 100 mL an hour he is also on propofol at 50 mcg/kg/m, I have recommended stopping propofol, and was the patient is awake we will recommend checking weani ng parameters, and if reasonable proceed with a pressure support and CPAP with a pressure support of 10, follow-up ABG in 1 hour after being on pressure support and CPAP, and we will likely consider extubation later today. Reevaluated today on 08/04/2022, patient remains in the ICU, he is status post sigmoid colectomy and end colostomy with severe underlying COPD. FEV1 is in the range of 26%, surprisingly the patient is doing better than expected. Patient remains on 4 L nasal cannula with adequate O2 saturation, his ostomy is functioning well, remains on Zosyn, his also on TPN at 50 mL per hour. WBC count is 9.1 hemoglobin is 10.9. Basic metabolic profile is normal renal profile is normal. Chest x-ray yesterday showed minimal interstitial findings and COPD Reevaluated today on 08/05/2022, patient remains in the ICU, doing well, relatively asymptomatic, his ostomy is functioning well, pulmonary status is relatively stable in spite of its severity patient denies any abdominal pain, no shortness of breath, his labs were relatively normal including normal CBC and normal electrolytes normal renal profile hence I will transfer the patient out of the ICU to a regular medical floor. Reevaluated today on 08/06/2022, patient had his nasogastric tube removed yesterday, however he developed abdominal distention and a nasogastric tube was placed back again today significant amount of fluid was noted are of the stomach over 900 mL. Patient felt better nonetheless he remains a bit bloated, now he has a nasogastric tube back in place. Considering his symptoms I'm recommending that we keep him in the ICU today. Pulmonary-[facility] he is doing well in spite of his severe underlying COPD. Labs today showed relatively normal CBC and a relatively normal electrolytes bicarb is 33 BUN is 24 creatinine 0.89. Patient was seen by surgery today/Dr. gurrola, and he is recommending to keep the nasogastric tube in place. Patient was reevaluated today on 08/07/2022, feels less bloated, nasogastric tube remains in place and functional, his colostomy is also functional, he had 450 of NG output overnight. He is afebrile, WBC count is 6.1. Pulmonary-[facility] he is about the same, he has severe COPD but surprisingly not as symptomatic as expected. WBC count 6.1 hemoglobin 10.9 lites are normal renal profile is normal bicarb is 37 The patient is seen today 08/08/2022 in follow-up on the regular medical floor. He has moved out of the ICU yesterday. He is awake and alert in no acute distre ss. Maintaining good O2 saturations in the mid 90s on 3 L/m per nasal cannula. Afebrile. Hemodynamically stable. Nasogastric tube remains in place. Abdominal wound cultures are positive for gram-negative bacilli. Sputum culture revealed no growth. Blood culture reveals no growth. Sodium 137. Potassium 4.0. Bicarb 36. BUN 25. Creatinine 0.95. Glucose 134. She is continued on DuoNeb inhalations, Pulmicort and Perforomist inhalations, Solu-Cortef. Lovenox for DVT prophylaxis. Remains on TPN for nutritional support at 75 ML's per hour. Antibiotics in the form of Zosyn. The patient is seen today 08/09/2022 in follow-up on the regular medical floor. He is currently resting quite comfortably in bed. Awake and alert in no acute distress. Currently on oxygen at 3 L/m per nasal cannula. Being nourished with TPN at 75 ML's per hour. He is receiving lactated Ringer's at 100 ML's per hour. He has some lower extremity edema. White sodium 137. Potassium 3.9. Bicarb 34. BUN 24. Creatinine 1.00. Glucose 136. Abdominal cultures were positive for anaerobic gram-negative bacilli. Sputum culture revealed no growth. He is continued on DuoNeb inhalations, Pulmicort and Perforomist inhalations. Working well with the incentive spirometer. The patient is seen today 08/10/2022 in follow-up on the regular medical floor. He is currently sitting up in bed. Awake and alert in no acute distress. Maintaining good O2 saturations in the 90s on 3 L/m per nasal cannula. Sodium 139. Potassium 3.8. Bicarb 32. BUN 25. Creatinine 1.08. Glucose 127. He is continued on DuoNeb inhalations, Pulmicort and Perforomist inhalations. Chest x-ray showing some atelectasis. Working well with the incentive spirometer. Remains on Lovenox for DVT prophylaxis. His nasogastric tube has been removed. Abdominal x-ray revealed diffusely dilated small bowel loops measuring up to 4.5 cm suggesting postoperative ileus. He remains nothing by mouth except for ice chips per surgical services. Being nourished with TPN at 75 ML's per hour. Patient is seen today 08/11/2022 in follow-up on the regular medical floor. He is resting comfortably in bed. Awake and alert in no acute distress. Maintaining O2 saturations in the 90s on 3 L/m per nasal cannula. He is lactated Ringer's at 10 and I'll's per hour. He is receiving TPN at 75 ML's per hour. He remains on a full liquid diet. Tolerating it well. Ostomy functioning. Blood cultures revealed no growth. Abdominal wound cultures were positive for gram-negative bacilli. Sputum culture revealed no growth. Sodium 139. Potassium 3.7. Bicarb 32. BUN 25. Creatinine 1.02. Glucose 113. He is continued on DuoNeb inhalations, Pulmicort and Perforomist inhalations. The patient is seen today 08/12/2022 in follow-up on the regular medical floor. He is currently resting in bed. He is awake and alert in no acute distress. Maintaining O2 saturations in the 90s on 3 L/m per nasal cannula. Unfortunately he is quite nauseated and has been vomiting on and off since 6 PM last night. Uncomfortable. His abdomen is soft. Colostomy is functioning. Possible ileus. No worsening shortness of breath, cough or congestion. He is continued on DuoNeb inhalations, Pulmicort and Perforomist inhalations, IV Solu-Cortef. He is on antibiotics in the form of Zosyn. White count 10.0. Hemoglobin 11.1. Platelets 443. Sodium 140. Potassium 3.7. Bicarb 36. BUN 23. Creatinine 1.04. Glucose 112. Objective - Vital Signs Vital signs: Vital Signs Temp 98.4 F 08/12/22 08:00 Pulse 72 08/12/22 12:24 Resp 17 08/12/22 08:00 BP 125/80 08/12/22 08:00 Pulse Ox 94 L 08/12/22 08:00 FiO2 35 08/03/22 12:00 Intake & Output 08/11/22 08/12/22 08/12/22 18:59 06:59 18:59 Intake Total 107.5 0 Output Total 1200 825 Balance -1092.5 -825 Weight 73.4 kg 73.4 kg Intake: Intake, IV Titration 107.5 Amount Sodium Phosphate 15 mmol 107.5 Sodium Chloride 4Meq/ml Vial 30 meq Potassium Chloride 30 meq Magnesium Sulfate gm 0.75 gm Calcium Gluconate 1 gm In Amino Acid 4.25%-D10w 1, 000 ml @ 75 mls/hr IV .BY DURATION [facility] Rx#: [id number] Oral 0 Output: Urine 1200 300 Stool 25 Emesis 500 Other: Voiding Method Indwelling Catheter Indwelling Catheter Indwelling Catheter # Emeses 8 - Exam GENERAL EXAM: Alert, 72-year-old male, resting in bed, on 3 L nasal cannula, currently with nausea. HEAD: Normocephalic. EYES: Normal reaction of pupils, equal size. NOSE: Nasogastric tube removed. Clear with pink turbinates. THROAT: No erythema or exudates. NECK: No masses, no JVD. CHEST: No chest wall deformity. LUNGS: Equal air entry with bilateral end expiratory wheeze, diminished. CVS: S1 and S2 normal with no audible murmur, regular rhythm. ABDOMEN: Postsurgical changes. Ostomy intact. Functioning with liquid stool. SPINE: No scoliosis or deformity SKIN: No rashes CENTRAL NERVOUS SYSTEM: No focal deficits, tone is normal in all 4 extremities. EXTREMITIES: There is no peripheral edema. No clubbing, no cyanosis. Peripheral pulses are intact. - Labs CBC & Chem 7: 08/12/22 03:46 08/12/22 03:46 Labs: Abnormal Lab Results - Last 24 Hours (Table) 08/11/22 08/12/22 08/12/22 Range/Units 16:23 00:22 03:46 RBC (4.30-5.90) m/uL Hgb (13.0-17.5) gm/dL Hct (39.0-53.0) % Carbon Dioxide 36 H (22-30) mmol/L BUN 23 H (9-20) mg/dL Glucose 112 H (74-99) mg/dL POC Glucose (mg/dL) 120 H 118 H (70-110) mg/dL Calcium 8.2 L (8.4-10.2) mg/dL 08/12/22 08/12/22 Range/Units 03:46 11:19 RBC 3.74 L (4.30-5.90) m/uL Hgb 11.1 L (13.0-17.5) gm/dL Hct 35.0 L (39.0-53.0) % Carbon Dioxide (22-30) mmol/L BUN (9-20) mg/dL Glucose (74-99) mg/dL POC Glucose (mg/dL) 119 H (70-110) mg/dL Calcium (8.4-10.2) mg/dL Assessment and Plan Assessment: Acute perforated sigmoid diverticulitis with abscess, status post sigmoid colectomy and end colostomy postoperative day #10. Nasogastric tube removed. Abdominal x-ray revealed diffusely dilated small bowel loops measuring up to 4.5 cm suggesting postoperative ileus. There is liquid stool and gas in the ostomy. On 08/12/2022 seconds issues with nausea and vomiting. History of diverticulosis Recent hospitalization for an acute COPD exacerbation back in June 2022, treated and the patient has recovered Advanced COPD with an FEV1 of 26% of predicted, the patient is chronically oxygen and steroid dependent taking prednisone 10 mg by mouth daily. Ex-smoker and the patient quit smoking 2 years ago Chronic hypoxic respiratory failure maternal O2 at 2 L nasal cannula Prostate cancer Acid reflux Plan: The patient was seen and evaluated Medications and labs reviewed Continue to work with the incentive spirometer Continue bronchodilators, Jenu-Cortmaximo Remains on Zosyn Increase his activity as tolerated We will continue to follow I have personally seen and examined the patient, performed the documentation and the assessment and plan as written. Number of minutes spent on the visit: 10.
--- NOTE | 2022-08-12 15:35 | P.PN ---
Subjective Progress Note Date: 08/12/22 72-year-old male with a past medical history of COPD home oxygen dependent on 3 L at all times, diverticulosis and GERD. He presented to the emergency department with a chief complaint of abdominal pain. CBC showing severe leukocytosis with WBC count of 18.7 with left shift with neutrophils of 17.1. BMP revealing mild prerenal azotemia with BUN of 21. Glucose was 132 and lactic acid was 1.3. Liver profile unremarkable. Troponin less than 0.012. Urinalysis was negative for infection. COVID PCR was negative. EKG was completed showing normal sinus rhythm and 99 bpm with no noted T-wave or ST a bnormalities showing no signs of acute ischemia. Chest x-ray showing COPD changes but negative for acute cardiopulmonary process. CT AP positive for acute sigmoid diverticulitis complicated by perforation and pockets of free intraperitoneal air measuring up to 5.5 cm accompanied by trace lower abdominal ascites, secondary small bowel ileus, small to moderate sized hiatal hernia, mild circumferential distal esophageal wall thickening, and prostamegaly with prostate measurement of 5.2 cm. Patient was admitted under General surgery team and [facility] consulted for medical management throughout hospitalization. Patient underwent sigmoidectomy on 08/02. Patient was extubated on 08/03. 08/08 Patient was seen and examined. Transferred out of ICU yesterday. He is having 800 cc output from his NG tube. He complains of chronic cough. No nausea or vomiting today. Wound cultures showing gram-negative bacilli. BMP shows a bicarb of 36, BUN of 25, glucose 134, albumin of 2.2 and calcium of 7.7. 08/09 Patient was seen and examined. He continues to complain of cough. No recorded output from NG tube. BMP shows bicarb of 34, BUN of 24, glucose of 136. Plans to DC NG tube today per surgery. 08/10 Patient was seen and examined. Tolerating ice chips well since NG tube was discontinued. BMP shows bicab 32, BUN 25, glucose 121, Ca 8. 08/11 Patient was seen and examined. Tolerating FLD well. He denies nausea or vomiting. He reports well controlled abdominal pain. BMP shows bicab 32, BUN 25, glucose 113, Ca 8. 08/12 Patient was seen and examined. Patient reports multiple episodes of N/V overnight. He reports well controlled abdominal pain. BMP shows bicarb of 36, BUN 23, glucose 112, Ca 8.2. He is given Lasix 40 mg IV x 1 today for LE swelling. General: non toxic, no distress, appears at stated age Derm: warm, dry Head: atraumatic, normocephalic, symmetric Eyes: EOMI, no lid lag, anicteric sclera Cardiovascular: S1S2 reg, no murmur Lungs: Coarse BS bilateral, no rhonchi, no rales , no accessory muscle use Abdominal: distended, no guarding, no appreciable organomegaly, ostomy intact Ext: no gross muscle atrophy, 2+ LE edema, no contractures Neuro: no focal neuro deficits Psych: Alert, oriented, appropriate affect Assessment and Plan: Acute perforated diverticulitis with abscess Sigmoid colectomy with end colostomy on 08/02/2032 Sepsis on admission Anemia of chronic disease COPD on chronic prednisone, not in exacerbation Chronic hypoxemic respiratory failure on 2 L home O2 Based on my assessment of this patient, this patient meets a moderate complexity level of care. Patient has history of acute perforated diverticulitis with abscess status post sigmoid colectomy with end colostomy on 08/02/2032. He continues to have significant output from his NG tube. Wound culture growing Strep agalactiae. Receiving TPN for nutrition. Antibiotics: Zosyn 3.375 g IV Q8H Continue Protonix 40 mg IV QD. Zofran 4 mg Q8H PRN for N/V. Pain control: Dilaudid PRN for severe pain. Bronchodilators: DuoNeb 0.5mg-3mg/3ml scheduled and as needed for SOB and wheezing. Performist 20 mcg INH BID. Steroids: SoluCortef 25 mg IV BID. One dose of Lasix 40 mg IV ordered today for LE swelling. DVT ppx: Lovenox SQ Code status: Full code Anticipated discharge place: Pending clinical course Anticipated discharge time: Pending clinical course I have reviewed the following network pricing consultant notes: Pulmonology, Surgery, ID note reviewed from 08/12. I have reviewed the results of the following tests: BMP shows bicarb of 36, BUN 23, glucose 112, Ca 8.2. I have discussed the management of this patient with the following physician: None. This patient has a moderate risk of morbidity due to the following reasons: Patient is on TPN - He needs daily monitoring of electrolytes. Discharge held due to multiple episodes of N/V. Objective - Vital Signs Vital signs: Vital Signs Temp 98.4 F 08/12/22 14:39 Pulse 100 08/12/22 14:39 Resp 16 08/12/22 14:39 BP 105/72 08/12/22 14:39 Pulse Ox 96 08/12/22 14:39 FiO2 35 08/03/22 12:00 Intake & Output 08/11/22 08/12/22 08/12/22 18:59 06:59 18:59 Intake Total 107.5 0 Output Total 1200 825 Balance -1092.5 -825 Weight 73.4 kg 73.4 kg Intake: Intake, IV Titration 107.5 Amount Sodium Phosphate 15 mmol 107.5 Sodium Chloride 4Meq/ml Vial 30 meq Potassium Chloride 30 meq Magnesium Sulfate gm 0.75 gm Calcium Gluconate 1 gm In Amino Acid 4.25%-D10w 1, 000 ml @ 75 mls/hr IV .BY DURATION [facility] Rx#: [id number] Oral 0 Output: Urine 1200 300 Stool 25 Emesis 500 Other: Voiding Method Indwelling Catheter Indwelling Catheter Indwelling Catheter # Emeses 8 - Labs CBC & Chem 7: 08/12/22 03:46 08/12/22 03:46 Labs: Abnormal Lab Results - Last 24 Hours (Table) 08/11/22 08/12/22 08/12/22 Range/Units 16:23 00:22 03:46 RBC (4.30-5.90) m/uL Hgb (13.0-17.5) gm/dL Hct (39.0-53.0) % Carbon Dioxide 36 H (22-30) mmol/L BUN 23 H (9-20) mg/dL Glucose 112 H (74-99) mg/dL POC Glucose (mg/dL) 120 H 118 H (70-110) mg/dL Calcium 8.2 L (8.4-10.2) mg/dL 08/12/22 08/12/22 Range/Units 03:46 11:19 RBC 3.74 L (4.30-5.90) m/uL Hgb 11.1 L (13.0-17.5) gm/dL Hct 35.0 L (39.0-53.0) % Carbon Dioxide (22-30) mmol/L BUN (9-20) mg/dL Glucose (74-99) mg/dL POC Glucose (mg/dL) 119 H (70-110) mg/dL Calcium (8.4-10.2) mg/dL
[2022-08-12] MEDS: FAT EMULSION 20% 250 ML in EMPTY BAG 1 BAG IV SCH (15:51)
[2022-08-12 16:41] LABS: Glucose,Whole Blood 119 mg/dL (70-110)
[2022-08-12 22:37] LABS: Glucose,Whole Blood 122 mg/dL (70-110)
[2022-08-13] MEDS: KETOROLAC 15 MG/ML 1 ML VIAL IVP SCH ×3 (00:15→13:35)
[2022-08-13] MEDS: HYDROmorphone 0.5 MG/0.5 ML SYRINGE IVP PRN ×2 (03:45→20:53)
[2022-08-13 04:51] LABS: Glucose,Whole Blood 161 mg/dL (70-110)
[2022-08-13] MEDS: PIPERACILLIN-TAZOBACTAM 3.375 GM in SODIUM CHLORIDE 0.9% 100 ML IVPB SCH ×3 (04:58→20:51)
[2022-08-13] MEDS: ONDANSETRON 4 MG/2 ML VIAL IVP PRN (06:19)
[2022-08-13 06:36] LABS: African American GFR (CKD) 73 (>60 ml/min/1.73 sqM); Anion Gap 4 mmol/L; Blood Urea Nitrogen 32 mg/dL (9-20); Calcium 8.1 mg/dL (8.4-10.2); Carbon Dioxide 35 mmol/L (22-30); Chloride 99 mmol/L (98-107); Glucose 195 mg/dL (74-99); Non-African American GFR(CKD) 63 (>60 ml/min/1.73 sqM); Phosphorus 4.3 mg/dL (2.5-4.5); Potassium 3.5 mmol/L (3.5-5.1); Sodium 138 mmol/L (137-145)
[2022-08-13] MEDS: PANTOPRAZOLE 40 MG/10 ML VIAL IV SCH (08:06)
[2022-08-13] MEDS: HYDROCORTISONE SUCCINATE 100 MG/2 ML VIAL IV SCH ×2 (08:07→20:51)
[2022-08-13] MEDS: ENOXAPARIN 40 MG/0.4 ML SYRINGE SQ SCH (08:08)
[2022-08-13] MEDS: LACTATED RINGERS 1,000 ML IV SCH (08:12)
[2022-08-13] MEDS: BUDESONIDE 1 MG/2 ML NEBU INHALATION SCH ×2 (08:30→20:20)
[2022-08-13] MEDS: IPRATROPIUM-ALBUTEROL 3 ML NEB INHALATION SCH ×4 (08:30→20:20)
[2022-08-13] MEDS: FORMOTEROL FUMARATE 20 MCG/2 ML NEBU INHALATION SCH ×2 (08:44→20:20)
[2022-08-13] MEDS ORDERED: IOPAMIDOL CONTRAST (ORAL USE) VIAL PO PRN (08:56)
--- NOTE | 2022-08-13 09:59 | P.PN ---
Progress Note - Text Progress Note Date: 08/13/22 Patient states he feels well. However review the chart he has had multiple emesis last night. His breathing appears slightly labored. On exam vital signs are stable. Abdomen soft. There is mild distention. There is some stool the colonoscopy. Patient most likely has ileus. He will have a repeat CAT scan of the chest abdomen and pelvis today. We will continue supportive care.
[2022-08-13] MEDS: IOPAMIDOL CONTRAST (ORAL USE) VIAL PO PRN ×2 (10:33→11:45)
[2022-08-13 11:33] LABS: Glucose,Whole Blood 133 mg/dL (70-110)
--- NOTE | 2022-08-13 11:41 | P.PN ---
Subjective Progress Note Date: 08/13/22 I was asked to evaluate this patient because of his advanced COPD and ongoing abdominal complications. The patient was seen in the emergency department. The patient is known to have diverticulosis he came in for an acute abdominal pain this morning. CAT scan of the abdomen was done and the patient was found to have acute sigmoid diverticulitis. This was a comp acute diverticulitis as perforation suspected and the patient had pockets of free intraperitoneal air measuring up to 5.5 cm in size. There is also trace lower abdominal ascites. No evidence of any abscess formation. Is also small bowel ileus. There is moderate size hiatal hernia also. The patient has a large prostate. Is known to have prostate cancer. The patient is also known to have advanced COPD. The patient is auction dependent. The patient is steroid dependent and is taking 10 mg of prednisone on a daily basis on outpatient basis. He has been followed up through our office. He has exertional dyspnea which is chronic in his significant limitation in exercise capacity because of his advanced COPD. No chest pain. No worsening shortness of breath. No swelling lower extremities. No previous history of DVT or pulmonary embolism. No nausea or emesis. No aspiration. GI surgeries on the case. Currently is on antibiotics. No plans for any surgery at this point in time. Blood work shows a WBC count of 18, he moglobin 13, normal cognition profile, BUN is 20 over the creatinine of 0.9. LFTs are normal. Lactic acid level is at 1.3. On today's evaluation of 07/30/2022, the patient's abdomen is less tender. The patient remains nothing by mouth. No worsening shortness of breath. The patient is on IV Zosyn. The patient is going to be treated conservatively. White cell count is at 14 with a hemoglobin of 11.1 and a platelet count of 245 noted the white cycles lower compared to yesterday. BUN is at 21 with a creatinine of 1.3. Sodium is at 143. Awake and alert and communicating. He remains on oxygen at 2 L/m nasal cannula. On 07/31/2022, the patient is doing well. No specific complaints. Abdominal pain is subsiding gradually. His COPD remains on IV Zosyn. No plans for any surgical intervention this point in time. The patient is known to have advanced COPD and the patient also has oxygen steroid dependent COPD and the patient is currently on hydrocortisone. IV fluids are in the form of D5 half-normal saline at rate of 100 mL an hour. The white cell count is down to 8.2 with hemoglobin 11.5 and a platelet count of 15. BUN is at 60 with a creatinine of 1 and his sodium level is at 137. The patient is seen today 08/01/2022 in follow-up on the regular medical floor. He is currently sitting up in bed. Awake and alert in no acute distress. Maintaining O2 saturations in the 90s on 2 L/m per nasal cannula. Currently on D5.45 normal saline at 100 ML's per hour. He is continued on Zosyn. His abdominal discomfort is gradually improving. Follow-up chest x-ray continues to show diffuse severe emphysematous changes with coarsened interstitium suspicious for chronic interstitial lung disease. Blood culture reveals no growth. White count 8.1. Hemoglobin 10.5. Platelets 225. Sodium 142. Potassium 3.9. Bicarb 26. BUN 11. Creatinine 1.0. Glucose 165. ProBNP 1500. Troponin negative 1. AST 12. ALT 13. Alk phos 39. Continued on DuoNeb inhalations. Lovenox for DVT prophylaxis. Remains on Solu-Cortef. The patient is seen today 08/02/2022 in follow-up on the regular medical floor. He is awake and alert in no acute distress. Resting fairly comfortably in bed. Maintaining good O2 saturations in the 90s on 2 L/m per nasal cannula. He is receiving D5 and half-normal saline at 100 ML's per hour. Remains on antibiotics in the form of Zosyn. Lovenox for DVT prophylaxis. Continued on Solu-Cortef. His abdominal discomfort is waxing and waning. A little more tender today. He remains nothing by mouth. Blood cultures revealed no growth. Blood glucose 151. Reevaluated today on 08/03/22, patient underwent sigmoid colectomy and end colostomy yesterday by Dr. Moyer mostly because of his sigmoid diverticulitis with perforation and abscess, patient came back to the ICU on mechanical ventilation. Remains intubated and mechanically ventilated. Patient is known to have severe end-stage COPD FEV1 is no more than 26%, however the benefits of the surgery obviously outweighed the risks. And surgery had to be done yesterday because the patient continued to have significant abdominal pain and tenderness. Patient is now on assist control rate of 16, volume 400 FiO2 50% and PEEP of 5, ABG showed a pO2 of 251 pCO2 42 pH of 7.45. His chest x-ray is showing minimal atelectasis, no infiltrate, no evidence of congestive heart failure, his electrolytes are normal renal profile is normal, CBC is relatively unremarkable. Hence I cut down his FiO2 to 35%, patient remains on enteral are at 100 mL an hour he is also on propofol at 50 mcg/kg/m, I have recommended stopping propofol, and was the patient is awake we will recommend checking weani ng parameters, and if reasonable proceed with a pressure support and CPAP with a pressure support of 10, follow-up ABG in 1 hour after being on pressure support and CPAP, and we will likely consider extubation later today. Reevaluated today on 08/04/2022, patient remains in the ICU, he is status post sigmoid colectomy and end colostomy with severe underlying COPD. FEV1 is in the range of 26%, surprisingly the patient is doing better than expected. Patient remains on 4 L nasal cannula with adequate O2 saturation, his ostomy is functioning well, remains on Zosyn, his also on TPN at 50 mL per hour. WBC count is 9.1 hemoglobin is 10.9. Basic metabolic profile is normal renal profile is normal. Chest x-ray yesterday showed minimal interstitial findings and COPD Reevaluated today on 08/05/2022, patient remains in the ICU, doing well, relatively asymptomatic, his ostomy is functioning well, pulmonary status is relatively stable in spite of its severity patient denies any abdominal pain, no shortness of breath, his labs were relatively normal including normal CBC and normal electrolytes normal renal profile hence I will transfer the patient out of the ICU to a regular medical floor. Reevaluated today on 08/06/2022, patient had his nasogastric tube removed yesterday, however he developed abdominal distention and a nasogastric tube was placed back again today significant amount of fluid was noted are of the stomach over 900 mL. Patient felt better nonetheless he remains a bit bloated, now he has a nasogastric tube back in place. Considering his symptoms I'm recommending that we keep him in the ICU today. [facility] he is doing well in spite of his severe underlying COPD. Labs today showed relatively normal CBC and a relatively normal electrolytes bicarb is 33 BUN is 24 creatinine 0.89. Patient was seen by surgery today/Dr. gurrola, and he is recommending to keep the nasogastric tube in place. Patient was reevaluated today on 08/07/2022, feels less bloated, nasogastric tube remains in place and functional, his colostomy is also functional, he had 450 of NG output overnight. He is afebrile, WBC count is 6.1. Pulmonary-[facility] he is about the same, he has severe COPD but surprisingly not as symptomatic as expected. WBC count 6.1 hemoglobin 10.9 lites are normal renal profile is normal bicarb is 37 The patient is seen today 08/08/2022 in follow-up on the regular medical floor. He has moved out of the ICU yesterday. He is awake and alert in no acute distre ss. Maintaining good O2 saturations in the mid 90s on 3 L/m per nasal cannula. Afebrile. Hemodynamically stable. Nasogastric tube remains in place. Abdominal wound cultures are positive for gram-negative bacilli. Sputum culture revealed no growth. Blood culture reveals no growth. Sodium 137. Potassium 4.0. Bicarb 36. BUN 25. Creatinine 0.95. Glucose 134. She is continued on DuoNeb inhalations, Pulmicort and Perforomist inhalations, Solu-Cortef. Lovenox for DVT prophylaxis. Remains on TPN for nutritional support at 75 ML's per hour. Antibiotics in the form of Zosyn. The patient is seen today 08/09/2022 in follow-up on the regular medical floor. He is currently resting quite comfortably in bed. Awake and alert in no acute distress. Currently on oxygen at 3 L/m per nasal cannula. Being nourished with TPN at 75 ML's per hour. He is receiving lactated Ringer's at 100 ML's per hour. He has some lower extremity edema. White sodium 137. Potassium 3.9. Bicarb 34. BUN 24. Creatinine 1.00. Glucose 136. Abdominal cultures were positive for anaerobic gram-negative bacilli. Sputum culture revealed no growth. He is continued on DuoNeb inhalations, Pulmicort and Perforomist inhalations. Working well with the incentive spirometer. The patient is seen today 08/10/2022 in follow-up on the regular medical floor. He is currently sitting up in bed. Awake and alert in no acute distress. Maintaining good O2 saturations in the 90s on 3 L/m per nasal cannula. Sodium 139. Potassium 3.8. Bicarb 32. BUN 25. Creatinine 1.08. Glucose 127. He is continued on DuoNeb inhalations, Pulmicort and Perforomist inhalations. Chest x-ray showing some atelectasis. Working well with the incentive spirometer. Remains on Lovenox for DVT prophylaxis. His nasogastric tube has been removed. Abdominal x-ray revealed diffusely dilated small bowel loops measuring up to 4.5 cm suggesting postoperative ileus. He remains nothing by mouth except for ice chips per surgical services. Being nourished with TPN at 75 ML's per hour. Patient is seen today 08/11/2022 in follow-up on the regular medical floor. He is resting comfortably in bed. Awake and alert in no acute distress. Maintaining O2 saturations in the 90s on 3 L/m per nasal cannula. He is lactated Ringer's at 10 and I'll's per hour. He is receiving TPN at 75 ML's per hour. He remains on a full liquid diet. Tolerating it well. Ostomy functioning. Blood cultures revealed no growth. Abdominal wound cultures were positive for gram-negative bacilli. Sputum culture revealed no growth. Sodium 139. Potassium 3.7. Bicarb 32. BUN 25. Creatinine 1.02. Glucose 113. He is continued on DuoNeb inhalations, Pulmicort and Perforomist inhalations. The patient is seen today 08/12/2022 in follow-up on the regular medical floor. He is currently resting in bed. He is awake and alert in no acute distress. Maintaining O2 saturations in the 90s on 3 L/m per nasal cannula. Unfortunately he is quite nauseated and has been vomiting on and off since 6 PM last night. Uncomfortable. His abdomen is soft. Colostomy is functioning. Possible ileus. No worsening shortness of breath, cough or congestion. He is continued on DuoNeb inhalations, Pulmicort and Perforomist inhalations, IV Solu-Cortef. He is on antibiotics in the form of Zosyn. White count 10.0. Hemoglobin 11.1. Platelets 443. Sodium 140. Potassium 3.7. Bicarb 36. BUN 23. Creatinine 1.04. Glucose 112. The patient is seen today 08/13/2022 in follow-up on the regular medical floor. He is awake and alert in no acute distress. He is still having ongoing issues with nausea and vomiting. Denies any worsening of breath, cough or congestion. Maintaining good O2 saturations in the 90s liters per minute per nasal cannula. An computed tomography scan of the chest abdomen pelvis with contrast is pending per surgical services. Nasogastric tube to be reinserted. Sodium 138. Potassium 3.5. Bicarb 35. BUN 32. Creatinine 1.16. Glucose 195. He remains on DuoNeb inhalations, Pulmicort and Perforomist inhalations, Solu-Cortef. Being nourished with TPN at 60 ML's per hour. Lactated Ringer's at 20 MLS per hour. He remains on antibiotics in the form of Zosyn. Lovenox for DVT prophylaxis. Objective - Vital Signs Vital signs: Vital Signs Temp 97.9 F 08/13/22 07:59 Pulse 92 08/13/22 08:52 Resp 20 08/13/22 07:59 BP 129/87 08/13/22 07:59 Pulse Ox 97 08/13/22 07:59 FiO2 35 08/03/22 12:00 Intake & Output 08/12/22 08/13/22 08/13/22 18:59 06:59 18:59 Output Total 1650 Balance -1650 Weight 73.4 kg Output: Urine 1250 Emesis 400 Other: Voiding Method Indwelling Catheter - Exam GENERAL EXAM: Alert, nauseated 72-year-old male, on 3 L nasal cannula, currently with nausea. HEAD: Normocephalic. EYES: Normal reaction of pupils, equal size. NOSE: Nasogastric tube removed. Clear with pink turbinates. THROAT: No erythema or exudates. NECK: No masses, no JVD. CHEST: No chest wall deformity. LUNGS: Equal air entry with bilateral end expiratory wheeze, diminished. CVS: S1 and S2 normal with no audible murmur, regular rhythm. ABDOMEN: Postsurgical changes. Ostomy intact. Functioning with liquid stool. SPINE: No scoliosis or deformity SKIN: No rashes CENTRAL NERVOUS SYSTEM: No focal deficits, tone is normal in all 4 extremities. EXTREMITIES: There is no peripheral edema. No clubbing, no cyanosis. Peripheral pulses are intact. - Labs CBC & Chem 7: 08/12/22 03:46 08/13/22 06:15 Labs: Abnormal Lab Results - Last 24 Hours (Table) 08/12/22 08/12/22 08/13/22 Range/Units 16:40 22:35 04:50 Carbon Dioxide (22-30) mmol/L BUN (9-20) mg/dL Glucose (74-99) mg/dL POC Glucose (mg/dL) 119 H 122 H 161 H (70-110) mg/dL Calcium (8.4-10.2) mg/dL 08/13/22 08/13/22 Range/Units 06:15 11:32 Carbon Dioxide 35 H (22-30) mmol/L BUN 32 H (9-20) mg/dL Glucose 195 H (74-99) mg/dL POC Glucose (mg/dL) 133 H (70-110) mg/dL Calcium 8.1 L (8.4-10.2) mg/dL Assessment and Plan Assessment: Acute perforated sigmoid diverticulitis with abscess, status post sigmoid colectomy and end colostomy postoperative day #11. Nasogastric tube removed. Abdominal x-ray revealed diffusely dilated small bowel loops measuring up to 4.5 cm suggesting postoperative ileus. There is liquid stool and gas in the ostomy. On 08/12/2022 seconds issues with nausea and vomiting. Still with some nausea and vomiting today 08/13/2022. Computed tomography scan of the abdomen ordered. Nasogastric tube to be reinserted. History of diverticulosis Recent hospitalization for an acute COPD exacerbation back in June 2022, treated and the patient has recovered Advanced COPD with an FEV1 of 26% of predicted, the patient is chronically oxygen and steroid dependent taking prednisone 10 mg by mouth daily. Ex-smoker and the patient quit smoking 2 years ago Chronic hypoxic respiratory failure maintained on O2 at 2 L nasal cannula Prostate cancer Acid reflux Plan: The patient was seen and evaluated Medications and labs reviewed The patient is having ongoing issues with nausea and vomiting Nasogastric tube to be reinserted Computed tomography scan of the abdomen pending We will continue to follow I have personally seen and examined the patient, performed the documentation and the assessment and plan as written. Number of minutes spent on the visit: 10.
--- NOTE | 2022-08-13 13:27 | P.PN ---
Subjective Progress Note Date: 08/13/22 72-year-old male with a past medical history of COPD home oxygen dependent on 3 L at all times, diverticulosis and GERD. He presented to the emergency department with a chief complaint of abdominal pain. CBC showing severe leukocytosis with WBC count of 18.7 with left shift with neutrophils of 17.1. BMP revealing mild prerenal azotemia with BUN of 21. Glucose was 132 and lactic acid was 1.3. Liver profile unremarkable. Troponin less than 0.012. Urinalysis was negative for infection. COVID PCR was negative. EKG was completed showing normal sinus rhythm and 99 bpm with no noted T-wave or ST a bnormalities showing no signs of acute ischemia. Chest x-ray showing COPD changes but negative for acute cardiopulmonary process. CT AP positive for acute sigmoid diverticulitis complicated by perforation and pockets of free intraperitoneal air measuring up to 5.5 cm accompanied by trace lower abdominal ascites, secondary small bowel ileus, small to moderate sized hiatal hernia, mild circumferential distal esophageal wall thickening, and prostamegaly with prostate measurement of 5.2 cm. Patient was admitted under General surgery team and [facility] consulted for medical management throughout hospitalization. Patient underwent sigmoidectomy on 08/02. Patient was extubated on 08/03. 08/08 Patient was seen and examined. Transferred out of ICU yesterday. He is having 800 cc output from his NG tube. He complains of chronic cough. No nausea or vomiting today. Wound cultures showing gram-negative bacilli. BMP shows a bicarb of 36, BUN of 25, glucose 134, albumin of 2.2 and calcium of 7.7. 08/09 Patient was seen and examined. He continues to complain of cough. No recorded output from NG tube. BMP shows bicarb of 34, BUN of 24, glucose of 136. Plans to DC NG tube today per surgery. 08/10 Patient was seen and examined. Tolerating ice chips well since NG tube was discontinued. BMP shows bicab 32, BUN 25, glucose 121, Ca 8. KUB shows post operative ileus. CXR shows COPD with trace bilateral effusion. 08/11 Patient was seen and examined. Tolerating FLD well. He denies nausea or vom iting. He reports well controlled abdominal pain. BMP shows bicab 32, BUN 25, glucose 113, Ca 8. 08/12 Patient was seen and examined. Patient reports multiple episodes of N/V overnight. He reports well controlled abdominal pain. BMP shows bicarb of 36, BUN 23, glucose 112, Ca 8.2. He is given Lasix 40 mg IV x 1 today for LE swelling. 08/13 Patient was seen and examined. Multiple episodes of N/V overnight with abdominal distention. NG tube re-inserted this morning with [address] chest/abdomen pelvis. BMP shows bicarb of 35, BUN 32, glucose 195, Ca 8.1. General: non toxic, no distress, appears at stated age Derm: warm, dry Head: atraumatic, normocephalic, symmetric, NG tube in place Eyes: EOMI, no lid lag, anicteric sclera Cardiovascular: S1S2 reg, no murmur Lungs: Coarse BS bilateral, no rhonchi, no rales , no accessory muscle use Abdominal: distended, no guarding, no appreciable organomegaly, ostomy intact Ext: no gross muscle atrophy, 2+ LE edema, no contractures Neuro: no focal neuro deficits Psych: Alert, oriented, appropriate affect Post operative ileus Acute perforated diverticulitis with abscess and resolving sepsis Sigmoid colectomy with end colostomy on 08/02/2032 Anemia of chronic disease Metabolic alkalosis Prerenal azotemia COPD on chronic prednisone, not in exacerbation Chronic hypoxemic respiratory failure on 2 L home O2 Based on my assessment of this patient, this patient meets a moderate complexity level of care. Patient has history of acute perforated diverticulitis with abscess status post sigmoid colectomy with end colostomy on 08/02/2032. He continues to have significant output from his NG tube. Wound culture growing Strep agalactiae. Receiving TPN for nutrition. Antibiotics: Zosyn 3.375 g IV Q8H (Day 15). Continue Protonix 40 mg IV QD. Zofran 4 mg Q8H PRN for N/V. Pain control: Dilaudid PRN for severe pain. Bronchodilators: DuoNeb 0.5mg-3mg/3ml scheduled and as needed for SOB and wheezing. Performist 20 mcg INH BID. Steroids: SoluCortef 25 mg IV BID. Intermittent doses of Lasix for LE swelling. DVT ppx: Lovenox SQ Code status: FULL CODE Anticipated discharge place: Pending clinical course Anticipated discharge time: Pending clinical course I have reviewed the following center lead consultant notes: Pulmonology, Surgery note reviewed from 08/13. I have reviewed the results of the following tests: BMP shows bicarb of 35, BUN 32, glucose 195, Ca 8.1. I have discussed the management of this patient with the following physician: None. This patient has a moderate risk of morbidity due to the following reasons: Patient is on TPN - He needs daily monitoring of electrolytes. Objective - Vital Signs Vital signs: Vital Signs Temp 97.9 F 08/13/22 07:59 Pulse 93 08/13/22 12:00 Resp 20 08/13/22 07:59 BP 129/87 08/13/22 07:59 Pulse Ox 97 08/13/22 07:59 FiO2 35 08/03/22 12:00 Intake & Output 08/12/22 08/13/22 08/13/22 18:59 06:59 18:59 Output Total 1650 Balance -1650 Weight 73.4 kg Output: Urine 1250 Emesis 400 Other: Voiding Method Indwelling Catheter - Labs CBC & Chem 7: 08/12/22 03:46 08/13/22 06:15 Labs: Abnormal Lab Results - Last 24 Hours (Table) 08/12/22 08/12/22 08/13/22 Range/Units 16:40 22:35 04:50 Carbon Dioxide (22-30) mmol/L BUN (9-20) mg/dL Glucose (74-99) mg/dL POC Glucose (mg/dL) 119 H 122 H 161 H (70-110) mg/dL Calcium (8.4-10.2) mg/dL 08/13/22 08/13/22 Range/Units 06:15 11:32 Carbon Dioxide 35 H (22-30) mmol/L BUN 32 H (9-20) mg/dL Glucose 195 H (74-99) mg/dL POC Glucose (mg/dL) 133 H (70-110) mg/dL Calcium 8.1 L (8.4-10.2) mg/dL
--- NOTE | 2022-08-13 13:30 | CT ---
EXAMINATION TYPE: CT ChestAbdPelvis w con DATE OF EXAM: 08/13/2022 COMPARISON: Most recent CT 11 days ago HISTORY: SBO and chest pain. CT DLP: 914.6 mGycm. Automated Exposure Control for Dose Reduction was Utilized. CONTRAST: CT scan of the thorax, abdomen and pelvis is performed with IV Contrast, patient injected with 65ML m L of Isovue 370. FINDINGS: LUNGS: At least moderate underlying emphysematous changes greatest in the upper lungs is present. The re are small left greater than right pleural effusions. There is associated compressive atelectasis a nd/or posterior basilar consolidation. There is 5 mm calcified nodule or benign granuloma in the left lower lung axial image 40.. MEDIASTINUM: There are no greater than 1 cm hilar or mediastinal lymph nodes. Focal small to tiny per icardial effusion is seen axial image 44. No cardiomegaly. Nasogastric tube projects below diaphragm. LIVER/GB: No significant abnormality is appreciated. PANCREAS: No significant abnormality is seen. SPLEEN: Scattered calcifications throughout the spleen consistent with product of old granulomatous d isease. ADRENALS: No significant abnormality is seen. KIDNEYS: Art catheter decompresses bladder. BOWEL: There is air-contrast level in slightly distended stomach with contrast extending into promine nt duodenal sweep. Small bowel loops in the left upper to mid abdomen show air contrast levels and ar e prominent and dilated extending into fluid prominent and dilated small bowel loops dilatation up to 3.6 cm is present. There is transition point in the upper pelvis seen best on coronal image 53 and a xial image 91 into nondilated distal small bowel loop. There are nondistended small bowel loops in th e right lower quadrant. There is some contrast in the colon which is not dilated. There is new left-s ided colostomy. A few diverticula in the sigmoid rectal stump. No free air currently. GENITAL ORGANS: Prostate gland measures upper limits of normal in size. LYMPH NODES: No greater than 1cm abdominal or pelvic lymph nodes are appreciated. OSSEOUS STRUCTURES: Scoliosis is present. Multilevel spurring in the spine is seen.. OTHER: There is moderate 2 severe diffuse soft tissue edema noted. IMPRESSION: CT findings confirm high-grade distal small bowel obstruction with transition point ident ified presumed related to adhesions. Interval partial colectomy and colostomy changes noted.
[2022-08-13] MEDS ORDERED: FUROSEMIDE 10 MG/ML 2 ML VIAL IV ONE (16:32)
[2022-08-13 16:36] LABS: Glucose,Whole Blood 144 mg/dL (70-110)
[2022-08-13 20:29] LABS: Glucose,Whole Blood 141 mg/dL (70-110)
--- NOTE | 2022-08-13 21:56 | P.PN ---
Subjective Progress Note Date: 08/13/22 Principal diagnosis: Perforated diverticulitis and peritonitis Patient is a 72-year-old male presenting to the hospital abdominal pain has been diagnosed with acute diverticulitis with perforation treated medically did not have improvement subsequently was taken to the OR on 08/02/2022 and the patient is status post laparotomy; colectomy and diverting colostomy. On today's evaluation that is 08/13/2022, the patient is afebrile, patient is breathing comfortably on 3L nasal cannula oxygen, patient continue to complain of vomiting, Pt denies any chest pain or shortness of breath , did have occasional cough Objective - Vital Signs Vital signs: Vital Signs Temp 97.9 F 08/13/22 07:59 Pulse 92 08/13/22 08:52 Resp 20 08/13/22 07:59 BP 129/87 08/13/22 07:59 Pulse Ox 97 08/13/22 07:59 FiO2 35 08/03/22 12:00 Intake & Output 08/12/22 08/13/22 08/13/22 18:59 06:59 18:59 Output Total 1650 Balance -1650 Weight 73.4 kg Output: Urine 1250 Emesis 400 Other: Voiding Method Indwelling Catheter - Exam Elderly male lying in bed in no distress Decreased intensity of breath sounds Abdomen soft Exam completed with the help of [employer] - Labs CBC & Chem 7: 08/15/22 07:04 08/15/22 07:04 Labs: Abnormal Lab Results - Last 24 Hours (Table) 08/12/22 08/12/22 08/12/22 Range/Units 11:19 16:40 22:35 Carbon Dioxide (22-30) mmol/L BUN (9-20) mg/dL Glucose (74-99) mg/dL POC Glucose (mg/dL) 119 H 119 H 122 H (70-110) mg/dL Calcium (8.4-10.2) mg/dL 08/13/22 08/13/22 Range/Units 04:50 06:15 Carbon Dioxide 35 H (22-30) mmol/L BUN 32 H (9-20) mg/dL Glucose 195 H (74-99) mg/dL POC Glucose (mg/dL) 161 H (70-110) mg/dL Calcium 8.1 L (8.4-10.2) mg/dL Assessment and Plan (1) Diverticulitis of colon with perforation Current Visit: Yes Status: Acute Code(s): K57.20 - DVTRCLI OF LG INT W PERFORATION AND ABSCESS W/O BLEEDING SNOMED Code(s): 12393537 Plan: This was a telehealth visit 1patient was in the hospital with abdominal pain has been diagnosed with a complicated diverticulitis failing medical therapy and the patient subsequently status post laparotomy sigmoid colectomy and diverting colostomy with concern for secondary peritonitis from perforated sigmoid diverticulitis and need to cover for enteric gram-negative both aerobes and anaerobes 2-patient abdominal cultures grew group B strep and anaerobic gram-negative bacilli 3-the patient remains to be afebrile white count has been normal , however did have vomiting after discontinuation of NG , CT of abdominal pelvis has been or dered results will be followed 4-the patient will be continued with Zosyn for now and monitor closely Time with Patient: Less than 30
[2022-08-14 01:24] LABS: Glucose,Whole Blood 145 mg/dL (70-110)
[2022-08-14 05:15] LABS: Glucose,Whole Blood 135 mg/dL (70-110)
[2022-08-14] MEDS: PIPERACILLIN-TAZOBACTAM 3.375 GM in SODIUM CHLORIDE 0.9% 100 ML IVPB SCH ×3 (05:45→20:48)
[2022-08-14 05:49] LABS: HCT 25.3 % (39.0-53.0); MCH 30.1 pg (25.0-35.0); MCHC 32.4 g/dL (31.0-37.0); MCV 92.7 fL (80.0-100.0); Mean Platelet Volume 7.5; Platelet Count 333 k/uL (150-450); RBC 2.73 m/uL (4.30-5.90); RDW 14.3 % (11.5-15.5); WBC 9.3 k/uL (3.8-10.6)
[2022-08-14 05:58] LABS: African American GFR (CKD) 69 (>60 ml/min/1.73 sqM); Anion Gap 3 mmol/L; Blood Urea Nitrogen 32 mg/dL (9-20); Carbon Dioxide 37 mmol/L (22-30); Chloride 99 mmol/L (98-107); Glucose 122 mg/dL (74-99); Magnesium 2.1 mg/dL (1.6-2.3); Non-African American GFR(CKD) 60 (>60 ml/min/1.73 sqM); Phosphorus 3.3 mg/dL (2.5-4.5); Potassium 3.4 mmol/L (3.5-5.1); Sodium 139 mmol/L (137-145)
[2022-08-14 06:01] LABS: HGB 8.2 gm/dL (13.0-17.5)
[2022-08-14] MEDS: HYDROmorphone 0.5 MG/0.5 ML SYRINGE IVP PRN ×3 (06:19→21:05)
--- NOTE | 2022-08-14 07:28 | XR ---
EXAMINATION TYPE: XR chest 1V portable DATE OF EXAM: 08/14/2022 5:56 AM COMPARISON: Chest radiographs from 08/09/2022, CT 08/13/2022 TECHNIQUE: XR chest 1V portable Frontal view of the chest. CLINICAL INDICATION:Male, 72 years old with history of NGT placement.; FINDINGS: Lungs/Pleura: Prominent interstitial lung markings are seen scattered throughout the lungs with nadir ening of the diaphragm and increased lucency of the lung apices. No evidence of focal consolidation, pneumothorax or pleural effusion. Pulmonary vascularity: Unremarkable. Heart/mediastinum: Cardiomediastinal silhouette is unremarkable. Musculoskeletal: No acute osseous pathology. Other findings: None Lines/Tubes: Nasogastric tube with side-port projecting over the distal esophagus. Left-sided PICC with distal tip at the superior vena cava/brachiocephalic confluence. IMPRESSION: 1. Nasogastric tube distal side-port near the gastroesophageal junction advancement of at least 9 cm is recommended. 2. Advanced COPD changes as seen on CT one day prior
[2022-08-14] MEDS: IPRATROPIUM-ALBUTEROL 3 ML NEB INHALATION SCH ×4 (08:04→20:05)
[2022-08-14] MEDS: BUDESONIDE 1 MG/2 ML NEBU INHALATION SCH ×2 (08:04→20:05)
[2022-08-14] MEDS: FORMOTEROL FUMARATE 20 MCG/2 ML NEBU INHALATION SCH ×2 (08:04→20:05)
--- NOTE | 2022-08-14 08:16 | P.PN ---
Subjective Progress Note Date: 08/14/22 Patient is a 72-year-old male with COPD on home O2 at 3 L, diverticulosis and GERD who initially presented to the ER with complaints of abdominal pain. CT abdomen and pelvis showed acute sigmoid diverticulitis complicated by perforation with pockets of free intraperitoneal air measuring up to 5.5 cm accompanied by trace lower abdominal ascites, secondary small bowel ileus, moderate sized hiatal hernia, mild circumferential distal esophageal wall thickening, and prostamegaly. Patient was admitted to general surgery and we are consulted for medical management. He underwent sigmoidectomy with end colostomy on 08/02 and was transported to the ICU where he was extubated on 08/03. NG tube was initially removed on 08/09. It was reinserted on 08/13. NG tube was a removed overnight between was then replaced on 08/14. Patient seen and examined at bedside. With family present. He denies any pain, nausea, vomiting, shortness of breath, chest discomfort. Vital signs reviewed General: [nontoxic], [no distress], [appears at stated age] Cardiovascular: [S1S2 reg], [no murmur], [positive posterior tibial pulse bilateral], Lungs: [Coarse breath sounds bilateral], [no rhonchi, no rales] , [no accessory muscle use] Abdominal: [soft], [ nontender to palpation], [no guarding], [no appreciable organomegaly], NG tube in place with dark green liquid Ext: [no gross muscle atrophy], diffuse anasarca, [no contractures] Neuro: [ CN II-XI grossly intact], [no focal neuro deficits] Psych: [Alert], [oriented], [appropriate affect] Assessment: Post op Small Bowel obstruction Acute perforated diverticulitis with abscess and resolving sepsis- Group B strep and anerobic bacilli Sigmoid colectomy with end colostomy on 08/02/2032 Anemia of chronic disease vs Acute blood loss Chronic/Resolved Metabolic alkalosis, resolved COPD on chronic prednisone, not in exacerbation Chronic hypoxemic respiratory failure on 2 L home O2 Imaging: CT abdomen and pelvis of 08/13: High-grade distal small bowel obstruction with transition point identified presumed related to adhesions, interval partial c olectomy with colostomy changes. Chest x-ray as reviewed by myself-NG tube appears in appropriate position. Data Review: Laboratory analysis reviewed from today and hemoglobin 8.2-down from 11.1 on 08/12. Potassium 3.4, blood sugar 135 Plan: -Start Lasix 20 mg IV push every 12 hours -Continue with Zosyn 3.375 g IV every 8 hours (day 16) -Protonix 40 mg IV daily -Continue with DuoNeb's 4 times daily and as needed, Pulmicort 1 mg twice daily, 4-20 mg twice daily -Solu-Cortef 25 mg IV every 12 hours -Patient continues to require Dilaudid 0.5 mg every 3 hours as needed for pain -Patient is on TPN day #12 - Anemia of undetermined etiology may be acute blood loss. Check Iron studies, B12, RBC folate, Repeat CBC at 1300 - infectious disease note reviewed from 08/13: Continue with Zosyn -Pulmonary note reviewed from 08/13: No additional recommendations - Surgery note reviewed from 08/13: Repeat CT abdomen and pelvis, continue NG tube DVT prophylaxis: Lovenox This dictation was prepared using [employer] voice recognition software. Though every attempt is made to correct errors during during dictation some may still exist. Objective - Vital Signs Vital signs: Vital Signs Temp 98.1 F 08/14/22 01:24 Pulse 96 08/14/22 08:06 Resp 19 08/14/22 01:24 BP 99/61 08/14/22 01:24 Pulse Ox 95 08/14/22 08:06 FiO2 35 08/03/22 12:00 Intake & Output 08/13/22 08/14/22 08/14/22 18:59 06:59 18:59 Intake Total 1041 Output Total 1100 2550 Balance -1100 -1509 Intake: Intake, IV Titration 1041 Amount Sodium Phosphate 15 mmol 1041 Sodium Chloride 4Meq/ml Vial 30 meq Potassium Chloride 34 meq Magnesium Sulfate gm 0.75 gm Calcium Gluconate 1 gm In Amino Acid 4.25%-D10w 1, 000 ml @ 60 mls/hr IV .BY DURATION [facility] Rx#: [id number] Output: Gastric Drainage 800 Urine 1675 Uretheral (Art) 1525 Stool 75 Emesis 1100 - Labs CBC & Chem 7: 08/14/22 04:49 08/14/22 04:49 Labs: Abnormal Lab Results - Last 24 Hours (Table) 08/13/22 08/13/22 08/13/22 Range/Units 11:32 16:34 20:27 RBC (4.30-5.90) m/uL Hgb (13.0-17.5) gm/dL Hct (39.0-53.0) % Potassium (3.5-5.1) mmol/L Carbon Dioxide (22-30) mmol/L BUN (9-20) mg/dL Glucose (74-99) mg/dL POC Glucose (mg/dL) 133 H 144 H 141 H (70-110) mg/dL Calcium (8.4-10.2) mg/dL 08/14/22 08/14/22 08/14/22 Range/Units 01:17 04:49 04:49 RBC 2.73 L (4.30-5.90) m/uL Hgb 8.2 L D (13.0-17.5) gm/dL Hct 25.3 L (39.0-53.0) % Potassium 3.4 L (3.5-5.1) mmol/L Carbon Dioxide 37 H (22-30) mmol/L BUN 32 H (9-20) mg/dL Glucose 122 H (74-99) mg/dL POC Glucose (mg/dL) 145 H (70-110) mg/dL Calcium 8.0 L (8.4-10.2) mg/dL 08/14/22 Range/Units 05:14 RBC (4.30-5.90) m/uL Hgb (13.0-17.5) gm/dL Hct (39.0-53.0) % Potassium (3.5-5.1) mmol/L Carbon Dioxide (22-30) mmol/L BUN (9-20) mg/dL Glucose (74-99) mg/dL POC Glucose (mg/dL) 135 H (70-110) mg/dL Calcium (8.4-10.2) mg/dL
[2022-08-14] MEDS: HYDROCORTISONE SUCCINATE 100 MG/2 ML VIAL IV SCH ×2 (09:39→20:48)
[2022-08-14] MEDS: PANTOPRAZOLE 40 MG/10 ML VIAL IV SCH (09:39)
[2022-08-14] MEDS: POTASSIUM CHLORIDE 20 MEQ in WATER FOR INJECTION 1 100ML.BAG IVPB SCH ×2 (09:40→15:43)
[2022-08-14] MEDS: LACTATED RINGERS 1,000 ML IV SCH (09:41)
[2022-08-14] MEDS: ENOXAPARIN 40 MG/0.4 ML SYRINGE SQ SCH (09:41)
--- NOTE | 2022-08-14 10:22 | P.PN ---
Subjective Progress Note Date: 08/14/22 I was asked to evaluate this patient because of his advanced COPD and ongoing abdominal complications. The patient was seen in the emergency department. The patient is known to have diverticulosis he came in for an acute abdominal pain this morning. CAT scan of the abdomen was done and the patient was found to have acute sigmoid diverticulitis. This was a comp acute diverticulitis as perforation suspected and the patient had pockets of free intraperitoneal air measuring up to 5.5 cm in size. There is also trace lower abdominal ascites. No evidence of any abscess formation. Is also small bowel ileus. There is moderate size hiatal hernia also. The patient has a large prostate. Is known to have prostate cancer. The patient is also known to have advanced COPD. The patient is auction dependent. The patient is steroid dependent and is taking 10 mg of prednisone on a daily basis on outpatient basis. He has been followed up through our office. He has exertional dyspnea which is chronic in his significant limitation in exercise capacity because of his advanced COPD. No chest pain. No worsening shortness of breath. No swelling lower extremities. No previous history of DVT or pulmonary embolism. No nausea or emesis. No aspiration. GI surgeries on the case. Currently is on antibiotics. No plans for any surgery at this point in time. Blood work shows a WBC count of 18, he moglobin 13, normal cognition profile, BUN is 20 over the creatinine of 0.9. LFTs are normal. Lactic acid level is at 1.3. On today's evaluation of 07/30/2022, the patient's abdomen is less tender. The patient remains nothing by mouth. No worsening shortness of breath. The patient is on IV Zosyn. The patient is going to be treated conservatively. White cell count is at 14 with a hemoglobin of 11.1 and a platelet count of 245 noted the white cycles lower compared to yesterday. BUN is at 21 with a creatinine of 1.3. Sodium is at 143. Awake and alert and communicating. He remains on oxygen at 2 L/m nasal cannula. On 07/31/2022, the patient is doing well. No specific complaints. Abdominal pain is subsiding gradually. His COPD remains on IV Zosyn. No plans for any surgical intervention this point in time. The patient is known to have advanced COPD and the patient also has oxygen steroid dependent COPD and the patient is currently on hydrocortisone. IV fluids are in the form of D5 half-normal saline at rate of 100 mL an hour. The white cell count is down to 8.2 with hemoglobin 11.5 and a platelet count of 15. BUN is at 60 with a creatinine of 1 and his sodium level is at 137. The patient is seen today 08/01/2022 in follow-up on the regular medical floor. He is currently sitting up in bed. Awake and alert in no acute distress. Maintaining O2 saturations in the 90s on 2 L/m per nasal cannula. Currently on D5.45 normal saline at 100 ML's per hour. He is continued on Zosyn. His abdominal discomfort is gradually improving. Follow-up chest x-ray continues to show diffuse severe emphysematous changes with coarsened interstitium suspicious for chronic interstitial lung disease. Blood culture reveals no growth. White count 8.1. Hemoglobin 10.5. Platelets 225. Sodium 142. Potassium 3.9. Bicarb 26. BUN 11. Creatinine 1.0. Glucose 165. ProBNP 1500. Troponin negative 1. AST 12. ALT 13. Alk phos 39. Continued on DuoNeb inhalations. Lovenox for DVT prophylaxis. Remains on Solu-Cortef. The patient is seen today 08/02/2022 in follow-up on the regular medical floor. He is awake and alert in no acute distress. Resting fairly comfortably in bed. Maintaining good O2 saturations in the 90s on 2 L/m per nasal cannula. He is receiving D5 and half-normal saline at 100 ML's per hour. Remains on antibiotics in the form of Zosyn. Lovenox for DVT prophylaxis. Continued on Solu-Cortef. His abdominal discomfort is waxing and waning. A little more tender today. He remains nothing by mouth. Blood cultures revealed no growth. Blood glucose 151. Reevaluated today on 08/03/22, patient underwent sigmoid colectomy and end colostomy yesterday by Dr. Moyer mostly because of his sigmoid diverticulitis with perforation and abscess, patient came back to the ICU on mechanical ventilation. Remains intubated and mechanically ventilated. Patient is known to have severe end-stage COPD FEV1 is no more than 26%, however the benefits of the surgery obviously outweighed the risks. And surgery had to be done yesterday because the patient continued to have significant abdominal pain and tenderness. Patient is now on assist control rate of 16, volume 400 FiO2 50% and PEEP of 5, ABG showed a pO2 of 251 pCO2 42 pH of 7.45. His chest x-ray is showing minimal atelectasis, no infiltrate, no evidence of congestive heart failure, his electrolytes are normal renal profile is normal, CBC is relatively unremarkable. Hence I cut down his FiO2 to 35%, patient remains on enteral are at 100 mL an hour he is also on propofol at 50 mcg/kg/m, I have recommended stopping propofol, and was the patient is awake we will recommend checking weani ng parameters, and if reasonable proceed with a pressure support and CPAP with a pressure support of 10, follow-up ABG in 1 hour after being on pressure support and CPAP, and we will likely consider extubation later today. Reevaluated today on 08/04/2022, patient remains in the ICU, he is status post sigmoid colectomy and end colostomy with severe underlying COPD. FEV1 is in the range of 26%, surprisingly the patient is doing better than expected. Patient remains on 4 L nasal cannula with adequate O2 saturation, his ostomy is functioning well, remains on Zosyn, his also on TPN at 50 mL per hour. WBC count is 9.1 hemoglobin is 10.9. Basic metabolic profile is normal renal profile is normal. Chest x-ray yesterday showed minimal interstitial findings and COPD Reevaluated today on 08/05/2022, patient remains in the ICU, doing well, relatively asymptomatic, his ostomy is functioning well, pulmonary status is relatively stable in spite of its severity patient denies any abdominal pain, no shortness of breath, his labs were relatively normal including normal CBC and normal electrolytes normal renal profile hence I will transfer the patient out of the ICU to a regular medical floor. Reevaluated today on 08/06/2022, patient had his nasogastric tube removed yesterday, however he developed abdominal distention and a nasogastric tube was placed back again today significant amount of fluid was noted are of the stomach over 900 mL. Patient felt better nonetheless he remains a bit bloated, now he has a nasogastric tube back in place. Considering his symptoms I'm recommending that we keep him in the ICU today. Pulmonary-[facility] he is doing well in spite of his severe underlying COPD. Labs today showed relatively normal CBC and a relatively normal electrolytes bicarb is 33 BUN is 24 creatinine 0.89. Patient was seen by surgery today/Dr. gurrola, and he is recommending to keep the nasogastric tube in place. Patient was reevaluated today on 08/07/2022, feels less bloated, nasogastric tube remains in place and functional, his colostomy is also functional, he had 450 of NG output overnight. He is afebrile, WBC count is 6.1. Pulmonary-[facility] he is about the same, he has severe COPD but surprisingly not as symptomatic as expected. WBC count 6.1 hemoglobin 10.9 lites are normal renal profile is normal bicarb is 37 The patient is seen today 08/08/2022 in follow-up on the regular medical floor. He has moved out of the ICU yesterday. He is awake and alert in no acute distre ss. Maintaining good O2 saturations in the mid 90s on 3 L/m per nasal cannula. Afebrile. Hemodynamically stable. Nasogastric tube remains in place. Abdominal wound cultures are positive for gram-negative bacilli. Sputum culture revealed no growth. Blood culture reveals no growth. Sodium 137. Potassium 4.0. Bicarb 36. BUN 25. Creatinine 0.95. Glucose 134. She is continued on DuoNeb inhalations, Pulmicort and Perforomist inhalations, Solu-Cortef. Lovenox for DVT prophylaxis. Remains on TPN for nutritional support at 75 ML's per hour. Antibiotics in the form of Zosyn. The patient is seen today 08/09/2022 in follow-up on the regular medical floor. He is currently resting quite comfortably in bed. Awake and alert in no acute distress. Currently on oxygen at 3 L/m per nasal cannula. Being nourished with TPN at 75 ML's per hour. He is receiving lactated Ringer's at 100 ML's per hour. He has some lower extremity edema. White sodium 137. Potassium 3.9. Bicarb 34. BUN 24. Creatinine 1.00. Glucose 136. Abdominal cultures were positive for anaerobic gram-negative bacilli. Sputum culture revealed no growth. He is continued on DuoNeb inhalations, Pulmicort and Perforomist inhalations. Working well with the incentive spirometer. The patient is seen today 08/10/2022 in follow-up on the regular medical floor. He is currently sitting up in bed. Awake and alert in no acute distress. Maintaining good O2 saturations in the 90s on 3 L/m per nasal cannula. Sodium 139. Potassium 3.8. Bicarb 32. BUN 25. Creatinine 1.08. Glucose 127. He is continued on DuoNeb inhalations, Pulmicort and Perforomist inhalations. Chest x-ray showing some atelectasis. Working well with the incentive spirometer. Remains on Lovenox for DVT prophylaxis. His nasogastric tube has been removed. Abdominal x-ray revealed diffusely dilated small bowel loops measuring up to 4.5 cm suggesting postoperative ileus. He remains nothing by mouth except for ice chips per surgical services. Being nourished with TPN at 75 ML's per hour. Patient is seen today 08/11/2022 in follow-up on the regular medical floor. He is resting comfortably in bed. Awake and alert in no acute distress. Maintaining O2 saturations in the 90s on 3 L/m per nasal cannula. He is lactated Ringer's at 10 and I'll's per hour. He is receiving TPN at 75 ML's per hour. He remains on a full liquid diet. Tolerating it well. Ostomy functioning. Blood cultures revealed no growth. Abdominal wound cultures were positive for gram-negative bacilli. Sputum culture revealed no growth. Sodium 139. Potassium 3.7. Bicarb 32. BUN 25. Creatinine 1.02. Glucose 113. He is continued on DuoNeb inhalations, Pulmicort and Perforomist inhalations. The patient is seen today 08/12/2022 in follow-up on the regular medical floor. He is currently resting in bed. He is awake and alert in no acute distress. Maintaining O2 saturations in the 90s on 3 L/m per nasal cannula. Unfortunately he is quite nauseated and has been vomiting on and off since 6 PM last night. Uncomfortable. His abdomen is soft. Colostomy is functioning. Possible ileus. No worsening shortness of breath, cough or congestion. He is continued on DuoNeb inhalations, Pulmicort and Perforomist inhalations, IV Solu-Cortef. He is on antibiotics in the form of Zosyn. White count 10.0. Hemoglobin 11.1. Platelets 443. Sodium 140. Potassium 3.7. Bicarb 36. BUN 23. Creatinine 1.04. Glucose 112. The patient is seen today 08/13/2022 in follow-up on the regular medical floor. He is awake and alert in no acute distress. He is still having ongoing issues with nausea and vomiting. Denies any worsening of breath, cough or congestion. Maintaining good O2 saturations in the 90s liters per minute per nasal cannula. An computed tomography scan of the chest abdomen pelvis with contrast is pending per surgical services. Nasogastric tube to be reinserted. Sodium 138. Potassium 3.5. Bicarb 35. BUN 32. Creatinine 1.16. Glucose 195. He remains on DuoNeb inhalations, Pulmicort and Perforomist inhalations, Solu-Cortef. Being nourished with TPN at 60 ML's per hour. Lactated Ringer's at 20 MLS per hour. He remains on antibiotics in the form of Zosyn. Lovenox for DVT prophylaxis. The patient is seen today 08/14/2022 in follow-up on the regular medical floor. He is currently resting in bed. Awake and alert in no acute distress. He is having ongoing issues with abdominal distention and nausea. He's had 2 NG tubes replaced and was subsequent inadvertentaccidental removal. Computed tomography scan of the abdomen revealed high-grade distal small bowel obstruction with transition point identified presumed related to adhesions. Interval partial colectomy and colostomy changes noted. Plan is to replace the NG tube again and keep him nothing by mouth. He is maintaining good O2 saturations in the mid 90s on 3 L nasal cannula. Continued on bronchodilators. Continued on TPN. Objective - Vital Signs Vital signs: Vital Signs Temp 98.0 F 08/14/22 07:49 Pulse 104 H 08/14/22 08:30 Resp 17 08/14/22 07:49 BP 103/63 08/14/22 07:49 Pulse Ox 95 08/14/22 08:06 FiO2 35 08/03/22 12:00 Intake & Output 08/13/22 08/14/22 08/14/22 18:59 06:59 18:59 Intake Total 1041 Output Total 1100 2550 Balance -1100 -1509 Intake: Intake, IV Titration 1041 Amount Sodium Phosphate 15 mmol 1041 Sodium Chloride 4Meq/ml Vial 30 meq Potassium Chloride 34 meq Magnesium Sulfate gm 0.75 gm Calcium Gluconate 1 gm In Amino Acid 4.25%-D10w 1, 000 ml @ 60 mls/hr IV [facility] Rx#: [id number] Output: Gastric Drainage 800 Urine 1675 Uretheral (Art) 1525 Stool 75 Emesis 1100 - Exam GENERAL EXAM: Alert, nauseated 72-year-old male, on 3 L nasal cannula, currently with nausea. HEAD: Normocephalic. EYES: Normal reaction of pupils, equal size. NOSE: Nasogastric tube accidentally removed. Clear with pink turbinates. THROAT: No erythema or exudates. NECK: No masses, no JVD. CHEST: No chest wall deformity. LUNGS: Equal air entry with bilateral end expiratory wheeze, diminished. CVS: S1 and S2 normal with no audible murmur, regular rhythm. ABDOMEN: Postsurgical changes. Ostomy intact. Functioning with liquid stool. SPINE: No scoliosis or deformity SKIN: No rashes CENTRAL NERVOUS SYSTEM: No focal deficits, tone is normal in all 4 extremities. EXTREMITIES: There is no peripheral edema. No clubbing, no cyanosis. Peripheral pulses are intact. - Labs CBC & Chem 7: 08/14/22 04:49 08/14/22 04:49 Labs: Abnormal Lab Results - Last 24 Hours (Table) 08/13/22 08/13/22 08/13/22 Range/Units 11:32 16:34 20:27 RBC (4.30-5.90) m/uL Hgb (13.0-17.5) gm/dL Hct (39.0-53.0) % Potassium (3.5-5.1) mmol/L Carbon Dioxide (22-30) mmol/L BUN (9-20) mg/dL Glucose (74-99) mg/dL POC Glucose (mg/dL) 133 H 144 H 141 H (70-110) mg/dL Calcium (8.4-10.2) mg/dL 08/14/22 08/14/22 08/14/22 Range/Units 01:17 04:49 04:49 RBC 2.73 L (4.30-5.90) m/uL Hgb 8.2 L D (13.0-17.5) gm/dL Hct 25.3 L (39.0-53.0) % Potassium 3.4 L (3.5-5.1) mmol/L Carbon Dioxide 37 H (22-30) mmol/L BUN 32 H (9-20) mg/dL Glucose 122 H (74-99) mg/dL POC Glucose (mg/dL) 145 H (70-110) mg/dL Calcium 8.0 L (8.4-10.2) mg/dL 08/14/22 Range/Units 05:14 RBC (4.30-5.90) m/uL Hgb (13.0-17.5) gm/dL Hct (39.0-53.0) % Potassium (3.5-5.1) mmol/L Carbon Dioxide (22-30) mmol/L BUN (9-20) mg/dL Glucose (74-99) mg/dL POC Glucose (mg/dL) 135 H (70-110) mg/dL Calcium (8.4-10.2) mg/dL Assessment and Plan Assessment: Acute perforated sigmoid diverticulitis with abscess, status post sigmoid colectomy and end colostomy postoperative day #11. Nasogastric tube removed. Abdominal x-ray revealed diffusely dilated small bowel loops measuring up to 4.5 cm suggesting postoperative ileus. There is liquid stool and gas in the ostomy. On 08/12/2022 seconds issues with nausea and vomiting. Still with some nausea and vomiting 08/13/2022. Computed tomography scan confirmed a high-grade distal small bowel obstruction with transition point identified presumed related to adhesions. Interval partial colectomy and colostomy changes noted. Nasogastric tube to be reinserted. History of diverticulosis Recent hospitalization for an acute COPD exacerbation back in June 2022, treated and the patient has recovered Advanced COPD with an FEV1 of 26% of predicted, the patient is chronically oxygen and steroid dependent taking prednisone 10 mg by mouth daily. Ex-smoker and the patient quit smoking 2 years ago Chronic hypoxic respiratory failure maintained on O2 at 2 L nasal cannula Prostate cancer Acid reflux Plan: The patient was seen and evaluated Computed tomography scan, nedications and labs reviewed Nasogastric tube to be reinserted Continue bronchodilators, Solu-Cortef Titrate the FiO2 as tolerated We will continue to follow I have personally seen and examined the patient, performed the documentation and the assessment and plan as written. Number of minutes spent on the visit: 10.
--- NOTE | 2022-08-14 10:40 | P.PN ---
Progress Note - Text Progress Note Date: 08/14/22 Patient's CAT scan from yesterday suggestive of small bowel obstruction. Patient most likely has adhesions creating a small bowel obstruction. He had a nasogastric tube placed yesterday. Patient had good output through the NG tube over the the NG tube dislodged accelerates morning. Patient has some stool in his colostomy appliance. On exam vital signs appear stable. Abdomen is mildly distended. There is minimal tenderness throughout. There is no rebound or guarding. Small bowel traction most likely due to adhesions. Patient received nasogastric tube decompression. He'll be closely observed.
--- NOTE | 2022-08-14 11:02 | XR ---
EXAMINATION TYPE: XR chest 1V confirm line plcmt DATE OF EXAM: 08/14/2022 10:54 AM COMPARISON: Same day TECHNIQUE: XR chest 1V confirm line plcmt Frontal view of the chest. CLINICAL INDICATION:Male, 72 years old with history of confirm NG tube placement; FINDINGS: Lungs/Pleura: There is flattening of the diaphragm with increased lucency of the lungs. No evidence o f pneumothorax, pleural effusion or focal consolidation. Pulmonary vascularity: Unremarkable. Heart/mediastinum: Cardiomediastinal silhouette is unremarkable. Musculoskeletal: No acute osseous pathology. Other findings: None Lines/Tubes: Nasogastric tube with its distal tip and side-port projecting under the diaphragm and projecting over the gastric lumen. IMPRESSION: 1. Appropriate placement of the nasogastric tube. 2. COPD changes.
[2022-08-14 11:31] LABS: Glucose,Whole Blood 135 mg/dL (70-110)
[2022-08-14 12:44] LABS: HCT 26.1 % (39.0-53.0); HGB 8.3 gm/dL (13.0-17.5); MCH 29.8 pg (25.0-35.0); MCHC 31.8 g/dL (31.0-37.0); MCV 93.6 fL (80.0-100.0); Mean Platelet Volume 7.7; Platelet Count 343 k/uL (150-450); RBC 2.79 m/uL (4.30-5.90); RDW 14.4 % (11.5-15.5); WBC 7.9 k/uL (3.8-10.6)
[2022-08-14 14:20] LABS: % Iron Saturation 8.5 (15.00-50.00)
[2022-08-14 14:55] LABS: Glucose,Whole Blood 127 mg/dL (70-110)
[2022-08-14 16:10] LABS: Glucose,Whole Blood 118 mg/dL (70-110)
[2022-08-14 16:51] LABS: VBG PH 7.37 (7.31-7.41)
[2022-08-14 17:12] LABS: INR 0.9 (<1.2); Partial Thromboplastin Time 24.6 sec (22.0-30.0); Prothrombin Time 9.7 sec (9.0-12.0)
--- NOTE | 2022-08-14 17:47 | US ---
EXAMINATION TYPE: US venous doppler duplex UE LT DATE OF EXAM: 08/14/2022 COMPARISON: No prior US. IR 08/03/22 CLINICAL INDICATION: Male, 72 years old with history of hematoma, picc in place,; Hematoma, picc line in place. Assess for DVT vs hematoma. SIDE PERFORMED: Left arm Left Arm: No evidence of DVT. Color flow was seen in all veins imaged. Compressions of the basilic ve in were deferred due to PICC line. Color flow was seen within. Limited visibility of portion of brachial veins and basilic vein due to large bandage*. No sizable fluid collections are identified. IMPRESSION: 1. No evidence for left upper extremity deep vein thrombosis as visualized. 2. Left PICC line in place.
[2022-08-14 17:56] LABS: Glucose,Whole Blood 106 mg/dL (70-110)
[2022-08-14] MEDS: FUROSEMIDE 10 MG/ML 2 ML VIAL IV SCH ×2 (18:03→20:49)
[2022-08-14 19:35] LABS: Glucose,Whole Blood 155 mg/dL (70-110)
[2022-08-14] MEDS: ONDANSETRON 4 MG/2 ML VIAL IVP PRN (21:15)
[2022-08-15 00:08] LABS: Glucose,Whole Blood 208 mg/dL (70-110)
[2022-08-15] MEDS: PIPERACILLIN-TAZOBACTAM 3.375 GM in SODIUM CHLORIDE 0.9% 100 ML IVPB SCH ×3 (04:55→20:50)
[2022-08-15 06:03] LABS: Glucose,Whole Blood 170 mg/dL (70-110)
[2022-08-15 07:29] LABS: HCT 24.5 % (39.0-53.0); HGB 7.7 gm/dL (13.0-17.5); MCH 29.3 pg (25.0-35.0); MCHC 31.6 g/dL (31.0-37.0); MCV 92.6 fL (80.0-100.0); Platelet Count 339 k/uL (150-450); RBC 2.65 m/uL (4.30-5.90); RDW 14.5 % (11.5-15.5); WBC 6.1 k/uL (3.8-10.6)
[2022-08-15 07:47] LABS: African American GFR (CKD) 70 (>60 ml/min/1.73 sqM); Anion Gap 3 mmol/L; Blood Urea Nitrogen 31 mg/dL (9-20); Carbon Dioxide 38 mmol/L (22-30); Chloride 100 mmol/L (98-107); Glucose 118 mg/dL (74-99); Magnesium 2.1 mg/dL (1.6-2.3); Non-African American GFR(CKD) 61 (>60 ml/min/1.73 sqM); Phosphorus 3.3 mg/dL (2.5-4.5); Potassium 3.2 mmol/L (3.5-5.1); Sodium 141 mmol/L (137-145)
[2022-08-15] MEDS: PANTOPRAZOLE 40 MG/10 ML VIAL IV SCH (08:03)
[2022-08-15] MEDS: ENOXAPARIN 40 MG/0.4 ML SYRINGE SQ SCH (08:03)
[2022-08-15] MEDS: HYDROCORTISONE SUCCINATE 100 MG/2 ML VIAL IV SCH (08:03)
[2022-08-15] MEDS: FUROSEMIDE 10 MG/ML 2 ML VIAL IV SCH ×2 (08:04→20:50)
[2022-08-15] MEDS: HYDROmorphone 0.5 MG/0.5 ML SYRINGE IVP PRN ×3 (08:26→20:51)
[2022-08-15] MEDS ORDERED: SODIUM FERRIC GLUCONAT-SUCROSE 125 MG in SODIUM CHLORIDE 0.9% 100 ML IVPB ONE (09:00)
[2022-08-15] MEDS: IPRATROPIUM-ALBUTEROL 3 ML NEB INHALATION SCH ×4 (09:16→21:23)
[2022-08-15] MEDS: FORMOTEROL FUMARATE 20 MCG/2 ML NEBU INHALATION SCH ×2 (09:16→21:23)
[2022-08-15] MEDS: BUDESONIDE 1 MG/2 ML NEBU INHALATION SCH ×2 (09:16→21:23)
--- NOTE | 2022-08-15 09:41 | P.PN ---
Progress Note - Text Progress Note Date: 08/15/22 The patient states he feels better today. He has less abdominal distention and pain. On exam vital signs appear stable. NG tube has about 250 mL of output over the last shift. The upper ileus. Abdomen is soft. Colostomy has minimal stool in the bag. There is no significant gas in the colostomy appliance. Status post sigmoid colectomy for perforated diverticulitis. With subsequent postoperative small bowel obstruction most likely due to adhesions. Patient noted to be anemic. The anemia started 2 days ago. He will be observed currently. We will plan for computed tomography scan of the abdomen tomorrow to evaluate his bowel obstruction. If the obstruction persists. He may need a laparotomy.
[2022-08-15] MEDS: LACTATED RINGERS 1,000 ML IV SCH (09:58)
[2022-08-15 11:37] LABS: Glucose,Whole Blood 135 mg/dL (70-110)
--- NOTE | 2022-08-15 11:44 | P.PN ---
Subjective Progress Note Date: 08/15/22 I was asked to evaluate this patient because of his advanced COPD and ongoing abdominal complications. The patient was seen in the emergency department. The patient is known to have diverticulosis he came in for an acute abdominal pain this morning. CAT scan of the abdomen was done and the patient was found to have acute sigmoid diverticulitis. This was a comp acute diverticulitis as perforation suspected and the patient had pockets of free intraperitoneal air measuring up to 5.5 cm in size. There is also trace lower abdominal ascites. No evidence of any abscess formation. Is also small bowel ileus. There is moderate size hiatal hernia also. The patient has a large prostate. Is known to have prostate cancer. The patient is also known to have advanced COPD. The patient is auction dependent. The patient is steroid dependent and is taking 10 mg of prednisone on a daily basis on outpatient basis. He has been followed up through our office. He has exertional dyspnea which is chronic in his significant limitation in exercise capacity because of his advanced COPD. No chest pain. No worsening shortness of breath. No swelling lower extremities. No previous history of DVT or pulmonary embolism. No nausea or emesis. No aspiration. GI surgeries on the case. Currently is on antibiotics. No plans for any surgery at this point in time. Blood work shows a WBC count of 18, he moglobin 13, normal cognition profile, BUN is 20 over the creatinine of 0.9. LFTs are normal. Lactic acid level is at 1.3. On today's evaluation of 07/30/2022, the patient's abdomen is less tender. The patient remains nothing by mouth. No worsening shortness of breath. The patient is on IV Zosyn. The patient is going to be treated conservatively. White cell count is at 14 with a hemoglobin of 11.1 and a platelet count of 245 noted the white cycles lower compared to yesterday. BUN is at 21 with a creatinine of 1.3. Sodium is at 143. Awake and alert and communicating. He remains on oxygen at 2 L/m nasal cannula. On 07/31/2022, the patient is doing well. No specific complaints. Abdominal pain is subsiding gradually. His COPD remains on IV Zosyn. No plans for any surgical intervention this point in time. The patient is known to have advanced COPD and the patient also has oxygen steroid dependent COPD and the patient is currently on hydrocortisone. IV fluids are in the form of D5 half-normal saline at rate of 100 mL an hour. The white cell count is down to 8.2 with hemoglobin 11.5 and a platelet count of 15. BUN is at 60 with a creatinine of 1 and his sodium level is at 137. The patient is seen today 08/01/2022 in follow-up on the regular medical floor. He is currently sitting up in bed. Awake and alert in no acute distress. Maintaining O2 saturations in the 90s on 2 L/m per nasal cannula. Currently on D5.45 normal saline at 100 ML's per hour. He is continued on Zosyn. His abdominal discomfort is gradually improving. Follow-up chest x-ray continues to show diffuse severe emphysematous changes with coarsened interstitium suspicious for chronic interstitial lung disease. Blood culture reveals no growth. White count 8.1. Hemoglobin 10.5. Platelets 225. Sodium 142. Potassium 3.9. Bicarb 26. BUN 11. Creatinine 1.0. Glucose 165. ProBNP 1500. Troponin negative 1. AST 12. ALT 13. Alk phos 39. Continued on DuoNeb inhalations. Lovenox for DVT prophylaxis. Remains on Solu-Cortef. The patient is seen today 08/02/2022 in follow-up on the regular medical floor. He is awake and alert in no acute distress. Resting fairly comfortably in bed. Maintaining good O2 saturations in the 90s on 2 L/m per nasal cannula. He is receiving D5 and half-normal saline at 100 ML's per hour. Remains on antibiotics in the form of Zosyn. Lovenox for DVT prophylaxis. Continued on Solu-Cortef. His abdominal discomfort is waxing and waning. A little more tender today. He remains nothing by mouth. Blood cultures revealed no growth. Blood glucose 151. Reevaluated today on 08/03/22, patient underwent sigmoid colectomy and end colostomy yesterday by Dr. Moyer mostly because of his sigmoid diverticulitis with perforation and abscess, patient came back to the ICU on mechanical ventilation. Remains intubated and mechanically ventilated. Patient is known to have severe end-stage COPD FEV1 is no more than 26%, however the benefits of the surgery obviously outweighed the risks. And surgery had to be done yesterday because the patient continued to have significant abdominal pain and tenderness. Patient is now on assist control rate of 16, volume 400 FiO2 50% and PEEP of 5, ABG showed a pO2 of 251 pCO2 42 pH of 7.45. His chest x-ray is showing minimal atelectasis, no infiltrate, no evidence of congestive heart failure, his electrolytes are normal renal profile is normal, CBC is relatively unremarkable. Hence I cut down his FiO2 to 35%, patient remains on enteral are at 100 mL an hour he is also on propofol at 50 mcg/kg/m, I have recommended stopping propofol, and was the patient is awake we will recommend checking weani ng parameters, and if reasonable proceed with a pressure support and CPAP with a pressure support of 10, follow-up ABG in 1 hour after being on pressure support and CPAP, and we will likely consider extubation later today. Reevaluated today on 08/04/2022, patient remains in the ICU, he is status post sigmoid colectomy and end colostomy with severe underlying COPD. FEV1 is in the range of 26%, surprisingly the patient is doing better than expected. Patient remains on 4 L nasal cannula with adequate O2 saturation, his ostomy is functioning well, remains on Zosyn, his also on TPN at 50 mL per hour. WBC count is 9.1 hemoglobin is 10.9. Basic metabolic profile is normal renal profile is normal. Chest x-ray yesterday showed minimal interstitial findings and COPD Reevaluated today on 08/05/2022, patient remains in the ICU, doing well, relatively asymptomatic, his ostomy is functioning well, pulmonary status is relatively stable in spite of its severity patient denies any abdominal pain, no shortness of breath, his labs were relatively normal including normal CBC and normal electrolytes normal renal profile hence I will transfer the patient out of the ICU to a regular medical floor. Reevaluated today on 08/06/2022, patient had his nasogastric tube removed yesterday, however he developed abdominal distention and a nasogastric tube was placed back again today significant amount of fluid was noted are of the stomach over 900 mL. Patient felt better nonetheless he remains a bit bloated, now he has a nasogastric tube back in place. Considering his symptoms I'm recommending that we keep him in the ICU today. Pulmonary-[facility] he is doing well in spite of his severe underlying COPD. Labs today showed relatively normal CBC and a relatively normal electrolytes bicarb is 33 BUN is 24 creatinine 0.89. Patient was seen by surgery today/Dr. gurrola, and he is recommending to keep the nasogastric tube in place. Patient was reevaluated today on 08/07/2022, feels less bloated, nasogastric tube remains in place and functional, his colostomy is also functional, he had 450 of NG output overnight. He is afebrile, WBC count is 6.1. Pulmonary-[facility] he is about the same, he has severe COPD but surprisingly not as symptomatic as expected. WBC count 6.1 hemoglobin 10.9 lites are normal renal profile is normal bicarb is 37 The patient is seen today 08/08/2022 in follow-up on the regular medical floor. He has moved out of the ICU yesterday. He is awake and alert in no acute distre ss. Maintaining good O2 saturations in the mid 90s on 3 L/m per nasal cannula. Afebrile. Hemodynamically stable. Nasogastric tube remains in place. Abdominal wound cultures are positive for gram-negative bacilli. Sputum culture revealed no growth. Blood culture reveals no growth. Sodium 137. Potassium 4.0. Bicarb 36. BUN 25. Creatinine 0.95. Glucose 134. She is continued on DuoNeb inhalations, Pulmicort and Perforomist inhalations, Solu-Cortef. Lovenox for DVT prophylaxis. Remains on TPN for nutritional support at 75 ML's per hour. Antibiotics in the form of Zosyn. The patient is seen today 08/09/2022 in follow-up on the regular medical floor. He is currently resting quite comfortably in bed. Awake and alert in no acute distress. Currently on oxygen at 3 L/m per nasal cannula. Being nourished with TPN at 75 ML's per hour. He is receiving lactated Ringer's at 100 ML's per hour. He has some lower extremity edema. White sodium 137. Potassium 3.9. Bicarb 34. BUN 24. Creatinine 1.00. Glucose 136. Abdominal cultures were positive for anaerobic gram-negative bacilli. Sputum culture revealed no growth. He is continued on DuoNeb inhalations, Pulmicort and Perforomist inhalations. Working well with the incentive spirometer. The patient is seen today 08/10/2022 in follow-up on the regular medical floor. He is currently sitting up in bed. Awake and alert in no acute distress. Maintaining good O2 saturations in the 90s on 3 L/m per nasal cannula. Sodium 139. Potassium 3.8. Bicarb 32. BUN 25. Creatinine 1.08. Glucose 127. He is continued on DuoNeb inhalations, Pulmicort and Perforomist inhalations. Chest x-ray showing some atelectasis. Working well with the incentive spirometer. Remains on Lovenox for DVT prophylaxis. His nasogastric tube has been removed. Abdominal x-ray revealed diffusely dilated small bowel loops measuring up to 4.5 cm suggesting postoperative ileus. He remains nothing by mouth except for ice chips per surgical services. Being nourished with TPN at 75 ML's per hour. Patient is seen today 08/11/2022 in follow-up on the regular medical floor. He is resting comfortably in bed. Awake and alert in no acute distress. Maintaining O2 saturations in the 90s on 3 L/m per nasal cannula. He is lactated Ringer's at 10 and I'll's per hour. He is receiving TPN at 75 ML's per hour. He remains on a full liquid diet. Tolerating it well. Ostomy functioning. Blood cultures revealed no growth. Abdominal wound cultures were positive for gram-negative bacilli. Sputum culture revealed no growth. Sodium 139. Potassium 3.7. Bicarb 32. BUN 25. Creatinine 1.02. Glucose 113. He is continued on DuoNeb inhalations, Pulmicort and Perforomist inhalations. The patient is seen today 08/12/2022 in follow-up on the regular medical floor. He is currently resting in bed. He is awake and alert in no acute distress. Maintaining O2 saturations in the 90s on 3 L/m per nasal cannula. Unfortunately he is quite nauseated and has been vomiting on and off since 6 PM last night. Uncomfortable. His abdomen is soft. Colostomy is functioning. Possible ileus. No worsening shortness of breath, cough or congestion. He is continued on DuoNeb inhalations, Pulmicort and Perforomist inhalations, IV Solu-Cortef. He is on antibiotics in the form of Zosyn. White count 10.0. Hemoglobin 11.1. Platelets 443. Sodium 140. Potassium 3.7. Bicarb 36. BUN 23. Creatinine 1.04. Glucose 112. The patient is seen today 08/13/2022 in follow-up on the regular medical floor. He is awake and alert in no acute distress. He is still having ongoing issues with nausea and vomiting. Denies any worsening of breath, cough or congestion. Maintaining good O2 saturations in the 90s liters per minute per nasal cannula. An computed tomography scan of the chest abdomen pelvis with contrast is pending per surgical services. Nasogastric tube to be reinserted. Sodium 138. Potassium 3.5. Bicarb 35. BUN 32. Creatinine 1.16. Glucose 195. He remains on DuoNeb inhalations, Pulmicort and Perforomist inhalations, Solu-Cortef. Being nourished with TPN at 60 ML's per hour. Lactated Ringer's at 20 MLS per hour. He remains on antibiotics in the form of Zosyn. Lovenox for DVT prophylaxis. The patient is seen today 08/14/2022 in follow-up on the regular medical floor. He is currently resting in bed. Awake and alert in no acute distress. He is having ongoing issues with abdominal distention and nausea. He's had 2 NG tubes replaced and was subsequent inadvertentaccidental removal. Computed tomography scan of the abdomen revealed high-grade distal small bowel obstruction with transition point identified presumed related to adhesions. Interval partial colectomy and colostomy changes noted. Plan is to replace the NG tube again and keep him nothing by mouth. He is maintaining good O2 saturations in the mid 90s on 3 L nasal cannula. Continued on bronchodilators. Continued on TPN. The patient is seen today 08/15/2022 in follow-up on the regular medical floor. He is awake and alert in no acute distress. Feeling better since the nasogastric tube was placed. No nausea or vomiting. Still with some abdominal tenderness. Ostomy has a small amount of stool in it. The left-sided PICC line in place. No evidence of left upper extremity DVT per Doppler. Chest x-ray revealed evidence of COPD but no acute pulmonary process. Nasogastric tube in appropriate place. Abdominal wound cultures revealed gram-negative bacilli. Strep agalactiae, group B. White count 6.1. Hemoglobin 7.7. Platelets 339. Sodium 141. Potassium 3.2. Bicarb 30. BUN 31. Creatinine 1.19. Glucose 118. He remains on TPN, lipids for nutritional support. Remains on antibiotics in the form of Zosyn. Continued on bronchodilators, site Cortef. Remains on IV diuretics. Currently in a -4.8 L balance. Objective - Vital Signs Vital signs: Vital Signs Temp 98.3 F 08/15/22 08:09 Pulse 88 08/15/22 09:45 Resp 16 08/15/22 08:09 BP 105/58 08/15/22 08:09 Pulse Ox 97 08/15/22 09:17 FiO2 35 08/03/22 12:00 Intake & Output 08/14/22 08/15/22 08/15/22 18:59 06:59 18:59 Output Total 340 4475 Balance -340 -4475 Weight 73.4 kg Output: Gastric Drainage 240 Urine 4425 Uretheral (Art) 3125 Stool 100 50 Other: Voiding Method Indwelling Catheter Indwelling Catheter - Exam GENERAL EXAM: Alert, pleasant 72-year-old male, on 3 L nasal cannula, currently with nausea. HEAD: Normocephalic. EYES: Normal reaction of pupils, equal size. NOSE: Nasogastric tube currently in place. Clear with pink turbinates. THROAT: No erythema or exudates. NECK: No masses, no JVD. CHEST: No chest wall deformity. LUNGS: Equal air entry with bilateral end expiratory wheeze, diminished. CVS: S1 and S2 normal with no audible murmur, regular rhythm. ABDOMEN: Postsurgical changes. Ostomy intact. Functioning with minimal stool. SPINE: No scoliosis or deformity SKIN: No rashes CENTRAL NERVOUS SYSTEM: No focal deficits, tone is normal in all 4 extremities. EXTREMITIES: There is no peripheral edema. No clubbing, no cyanosis. Peripheral pulses are intact. - Labs CBC & Chem 7: 08/15/22 07:04 08/15/22 07:04 Labs: Abnormal Lab Results - Last 24 Hours (Table) 08/14/22 08/14/22 08/14/22 Range/Units 08:35 12:15 14:53 RBC 2.79 L (4.30-5.90) m/uL Hgb 8.3 L (13.0-17.5) gm/dL Hct 26.1 L (39.0-53.0) % VBG pCO2 (37-51) mmHg VBG HCO3 (24-28) mmol/L Potassium (3.5-5.1) mmol/L Carbon Dioxide (22-30) mmol/L BUN (9-20) mg/dL Glucose (74-99) mg/dL POC Glucose (mg/dL) 127 H (70-110) mg/dL Calcium (8.4-10.2) mg/dL Iron 20 L (65-175) ug/dL % Saturation 8.50 L (15.00-50.00) Transferrin 169.0 L (204.0-354.0) mg/dL 08/14/22 08/14/22 08/14/22 Range/Units 16:08 16:11 19:34 RBC (4.30-5.90) m/uL Hgb (13.0-17.5) gm/dL Hct (39.0-53.0) % VBG pCO2 64 H (37-51) mmHg VBG HCO3 36 H (24-28) mmol/L Potassium (3.5-5.1) mmol/L Carbon Dioxide (22-30) mmol/L BUN (9-20) mg/dL Glucose (74-99) mg/dL POC Glucose (mg/dL) 118 H 155 H (70-110) mg/dL Calcium (8.4-10.2) mg/dL Iron (65-175) ug/dL % Saturation (15.00-50.00) Transferrin (204.0-354.0) mg/dL 08/15/22 08/15/22 08/15/22 Range/Units 00:06 06:01 07:04 RBC 2.65 L (4.30-5.90) m/uL Hgb 7.7 L (13.0-17.5) gm/dL Hct 24.5 L (39.0-53.0) % VBG pCO2 (37-51) mmHg VBG HCO3 (24-28) mmol/L Potassium (3.5-5.1) mmol/L Carbon Dioxide (22-30) mmol/L BUN (9-20) mg/dL Glucose (74-99) mg/dL POC Glucose (mg/dL) 208 H 170 H (70-110) mg/dL Calcium (8.4-10.2) mg/dL Iron (65-175) ug/dL % Saturation (15.00-50.00) Transferrin (204.0-354.0) mg/dL 08/15/22 Range/Units 07:04 RBC (4.30-5.90) m/uL Hgb (13.0-17.5) gm/dL Hct (39.0-53.0) % VBG pCO2 (37-51) mmHg VBG HCO3 (24-28) mmol/L Potassium 3.2 L (3.5-5.1) mmol/L Carbon Dioxide 38 H (22-30) mmol/L BUN 31 H (9-20) mg/dL Glucose 118 H (74-99) mg/dL POC Glucose (mg/dL) (70-110) mg/dL Calcium 8.0 L (8.4-10.2) mg/dL Iron (65-175) ug/dL % Saturation (15.00-50.00) Transferrin (204.0-354.0) mg/dL Assessment and Plan Assessment: Acute perforated sigmoid diverticulitis with abscess, status post sigmoid colectomy and end colostomy on 08/02/2022. Nasogastric tube removed. Abdominal x-ray revealed diffusely dilated small bowel loops measuring up to 4.5 cm suggesting postoperative ileus. There is liquid stool and gas in the ostomy. On 08/12/2022 seconds issues with nausea and vomiting. Still with some nausea and vomiting 08/13/2022. Computed tomography scan confirmed a high-grade distal small bowel obstruction with transition point identified presumed related to adhesions. Interval partial colectomy and colostomy changes noted. Nasogastric tube was reinserted. Plan is for follow-up computed tomography scan of the abdomen 08/16/2022 History of diverticulosis Recent hospitalization for an acute COPD exacerbation back in June 2022, treated and the patient has recovered Advanced COPD with an FEV1 of 26% of predicted, the patient is chronically oxygen and steroid dependent taking prednisone 10 mg by mouth daily. Ex-smoker and the patient quit smoking 2 years ago Chronic hypoxic respiratory failure maintained on O2 at 2 L nasal cannula Prostate cancer Acid reflux Plan: The patient was seen and evaluated Medications and labs reviewed Nasogastric tube reinserted Chest x-ray reviewed Plan is for follow-up computed tomography scan of the abdomen tomorrow Continue the current treatment plan We will continue to follow I have personally seen and examined the patient, performed the documentation and the assessment and plan as written. Number of minutes spent on the visit: 10.
[2022-08-15] MEDS: POTASSIUM CHLORIDE 20 MEQ in WATER FOR INJECTION 1 100ML.BAG IVPB SCH ×2 (13:20→15:09)
--- NOTE | 2022-08-15 14:06 | P.PN ---
Subjective Progress Note Date: 08/14/22 Principal diagnosis: Perforated diverticulitis and peritonitis Patient is a 72-year-old male presenting to the hospital abdominal pain has been diagnosed with acute diverticulitis with perforation treated medically did not have improvement subsequently was taken to the OR on 08/02/2022 and the patient is status post laparotomy; colectomy and diverting colostomy. On today's evaluation that is 08/14/2022, the patient remains to be afebrile, patient is breathing comfortably on 3L nasal cannula oxygen, patient did have reinsertion of the NG and denies any further vomiting abdominal pain is currently controlled no chest pain or shortness with occasional cough Objective - Vital Signs Vital signs: Vital Signs Temp 98.0 F 08/14/22 07:49 Pulse 104 H 08/14/22 08:30 Resp 17 08/14/22 07:49 BP 103/63 08/14/22 07:49 Pulse Ox 95 08/14/22 08:06 FiO2 35 08/03/22 12:00 Intake & Output 08/13/22 08/14/22 08/14/22 18:59 06:59 18:59 Intake Total 1041 Output Total 1100 2550 Balance -1100 -1509 Intake: Intake, IV Titration 1041 Amount Sodium Phosphate 15 mmol 1041 Sodium Chloride 4Meq/ml Vial 30 meq Potassium Chloride 34 meq Magnesium Sulfate gm 0.75 gm Calcium Gluconate 1 gm In Amino Acid 4.25%-D10w 1, 000 ml @ 60 mls/hr IV .[facility] Rx#: [id number] Output: Gastric Drainage 800 Urine 1675 Uretheral (Art) 1525 Stool 75 Emesis 1100 - Exam Elderly male lying in bed in no distress Decreased intensity of breath sounds Abdomen soft Exam completed with the help of [employer] HELPER - Labs CBC & Chem 7: 08/15/22 07:04 08/15/22 07:04 Labs: Abnormal Lab Results - Last 24 Hours (Table) 08/13/22 08/13/22 08/13/22 Range/Units 11:32 16:34 20:27 RBC (4.30-5.90) m/uL Hgb (13.0-17.5) gm/dL Hct (39.0-53.0) % Potassium (3.5-5.1) mmol/L Carbon Dioxide (22-30) mmol/L BUN (9-20) mg/dL Glucose (74-99) mg/dL POC Glucose (mg/dL) 133 H 144 H 141 H (70-110) mg/dL Calcium (8.4-10.2) mg/dL 08/14/22 08/14/22 08/14/22 Range/Units 01:17 04:49 04:49 RBC 2.73 L (4.30-5.90) m/uL Hgb 8.2 L D (13.0-17.5) gm/dL Hct 25.3 L (39.0-53.0) % Potassium 3.4 L (3.5-5.1) mmol/L Carbon Dioxide 37 H (22-30) mmol/L BUN 32 H (9-20) mg/dL Glucose 122 H (74-99) mg/dL POC Glucose (mg/dL) 145 H (70-110) mg/dL Calcium 8.0 L (8.4-10.2) mg/dL 08/14/22 Range/Units 05:14 RBC (4.30-5.90) m/uL Hgb (13.0-17.5) gm/dL Hct (39.0-53.0) % Potassium (3.5-5.1) mmol/L Carbon Dioxide (22-30) mmol/L BUN (9-20) mg/dL Glucose (74-99) mg/dL POC Glucose (mg/dL) 135 H (70-110) mg/dL Calcium (8.4-10.2) mg/dL Assessment and Plan (1) Diverticulitis of colon with perforation Current Visit: Yes Status: Acute Code(s): K57.20 - DVTRCLI OF LG INT W PERFORATION AND ABSCESS W/O BLEEDING SNOMED Code(s): 47197466 Plan: This was a telehealth visit 1patient was in the hospital with abdominal pain has been diagnosed with a complicated diverticulitis failing medical therapy and the patient subsequently status post laparotomy sigmoid colectomy and diverting colostomy with concern for secondary peritonitis from perforated sigmoid diverticulitis and need to cover for enteric gram-negative both aerobes and anaerobes 2-patient abdominal cultures grew group B strep and anaerobic gram-negative bacilli 3-the patient remains to be afebrile white count has been normal , however did have vomiting after discontinuation of NG , CT of abdominal pelvis did shows evidence of high-grade distal small bowel obstruction and is being monitor manage medically 4-the patient will be continued with Zosyn and monitor clinical course closely Time with Patient: Less than 30
--- NOTE | 2022-08-15 14:07 | P.PN ---
Subjective Progress Note Date: 08/15/22 Principal diagnosis: Perforated diverticulitis and peritonitis Patient is a 72-year-old male presenting to the hospital abdominal pain has been diagnosed with acute diverticulitis with perforation treated medically did not have improvement subsequently was taken to the OR on 08/02/2022 and the patient is status post laparotomy; colectomy and diverting colostomy. On today's evaluation that is 08/15/2022, the patient continues to be afebrile, patient is breathing comfortably on 3L nasal cannula oxygen, patient denies any further vomiting, the patient abdominal pain is currently controlled no chest pain or shortness with occasional cough Objective - Vital Signs Vital signs: Vital Signs Temp 98.3 F 08/15/22 08:09 Pulse 84 08/15/22 12:51 Resp 16 08/15/22 08:09 BP 105/58 08/15/22 08:09 Pulse Ox 97 08/15/22 09:17 FiO2 35 08/03/22 12:00 Intake & Output 08/14/22 08/15/22 08/15/22 18:59 06:59 18:59 Output Total 340 4475 Balance -340 -4475 Weight 73.4 kg Output: Gastric Drainage 240 Urine 4425 Uretheral (Art) 3125 Stool 100 50 Other: Voiding Method Indwelling Catheter Indwelling Catheter - Exam GENERAL DESCRIPTION: An elderly male lying in bed in no distress RESPIRATORY SYSTEM: Unlabored breathing , decreased breath sounds at bases HEART: S1 S2 regular rate and rhythm , ABDOMEN: Soft , no tenderness EXTREMITIES: Did have extensive bruising to the upper extremity especially the left arm - Labs CBC & Chem 7: 08/15/22 07:04 08/15/22 07:04 Labs: Abnormal Lab Results - Last 24 Hours (Table) 08/14/22 08/14/22 08/14/22 Range/Units 08:35 14:53 16:08 RBC (4.30-5.90) m/uL Hgb (13.0-17.5) gm/dL Hct (39.0-53.0) % VBG pCO2 (37-51) mmHg VBG HCO3 (24-28) mmol/L Potassium (3.5-5.1) mmol/L Carbon Dioxide (22-30) mmol/L BUN (9-20) mg/dL Glucose (74-99) mg/dL POC Glucose (mg/dL) 127 H 118 H (70-110) mg/dL Calcium (8.4-10.2) mg/dL Iron 20 L (65-175) ug/dL % Saturation 8.50 L (15.00-50.00) Transferrin 169.0 L (204.0-354.0) mg/dL 08/14/22 08/14/22 08/15/22 Range/Units 16:11 19:34 00:06 RBC (4.30-5.90) m/uL Hgb (13.0-17.5) gm/dL Hct (39.0-53.0) % VBG pCO2 64 H (37-51) mmHg VBG HCO3 36 H (24-28) mmol/L Potassium (3.5-5.1) mmol/L Carbon Dioxide (22-30) mmol/L BUN (9-20) mg/dL Glucose (74-99) mg/dL POC Glucose (mg/dL) 155 H 208 H (70-110) mg/dL Calcium (8.4-10.2) mg/dL Iron (65-175) ug/dL % Saturation (15.00-50.00) Transferrin (204.0-354.0) mg/dL 08/15/22 08/15/22 08/15/22 Range/Units 06:01 07:04 07:04 RBC 2.65 L (4.30-5.90) m/uL Hgb 7.7 L (13.0-17.5) gm/dL Hct 24.5 L (39.0-53.0) % VBG pCO2 (37-51) mmHg VBG HCO3 (24-28) mmol/L Potassium 3.2 L (3.5-5.1) mmol/L Carbon Dioxide 38 H (22-30) mmol/L BUN 31 H (9-20) mg/dL Glucose 118 H (74-99) mg/dL POC Glucose (mg/dL) 170 H (70-110) mg/dL Calcium 8.0 L (8.4-10.2) mg/dL Iron (65-175) ug/dL % Saturation (15.00-50.00) Transferrin (204.0-354.0) mg/dL 08/15/22 Range/Units 11:34 RBC (4.30-5.90) m/uL Hgb (13.0-17.5) gm/dL Hct (39.0-53.0) % VBG pCO2 (37-51) mmHg VBG HCO3 (24-28) mmol/L Potassium (3.5-5.1) mmol/L Carbon Dioxide (22-30) mmol/L BUN (9-20) mg/dL Glucose (74-99) mg/dL POC Glucose (mg/dL) 135 H (70-110) mg/dL Calcium (8.4-10.2) mg/dL Iron (65-175) ug/dL % Saturation (15.00-50.00) Transferrin (204.0-354.0) mg/dL Assessment and Plan (1) Diverticulitis of colon with perforation Current Visit: Yes Status: Acute Code(s): K57.20 - DVTRCLI OF LG INT W PERFORATION AND ABSCESS W/O BLEEDING SNOMED Code(s): 52799111 Plan: 1patient was in the hospital with abdominal pain has been diagnosed with a complicated diverticulitis failing medical therapy and the patient subsequently status post laparotomy sigmoid colectomy and diverting colostomy with concern for secondary peritonitis from perforated sigmoid diverticulitis and need to cover for enteric gram-negative both aerobes and anaerobes 2-patient abdominal cultures grew group B strep and anaerobic gram-negative bacilli 3-the patient remains to be afebrile white count has been normal , however did have vomiting after discontinuation of NG , CT of abdominal pelvis did shows evidence of high-grade distal small bowel obstruction and is being monitor manage medically 4-the patient remains to be afebrile and the patient white count is normal, the patient will be continued with Zosyn and monitor clinical course closely Time with Patient: Less than 30
[2022-08-15 15:18] LABS: HCT 23.9 % (39.0-53.0); HGB 7.6 gm/dL (13.0-17.5); Hypochromasia Slight; MCH 29.8 pg (25.0-35.0); MCHC 31.7 g/dL (31.0-37.0); MCV 94.1 fL (80.0-100.0); Mean Platelet Volume 7.3; Platelet Count 335 k/uL (150-450); RBC 2.54 m/uL (4.30-5.90); RDW 14.2 % (11.5-15.5); WBC 6.2 k/uL (3.8-10.6)
--- NOTE | 2022-08-15 15:51 | P.PN ---
Subjective Progress Note Date: 08/15/22 ([facility] charting see at 1130) Patient is a 72-year-old male with COPD on home O2 at 3 L, diverticulosis and GERD who initially presented to the ER with complaints of abdominal pain. CT abdomen and pelvis showed acute sigmoid diverticulitis complicated by perforation with pockets of free intraperitoneal air measuring up to 5.5 cm accompanied by trace lower abdominal ascites, secondary small bowel ileus, moderate sized hiatal hernia, mild circumferential distal esophageal wall thickening, and prostamegaly. Patient was admitted to general surgery and we are consulted for medical management. He underwent sigmoidectomy with end colostomy on 08/02 and was transported to the ICU where he was extubated on 08/03. NG tube was initially removed on 08/09. It was reinserted on 08/13. NG tube was a removed overnight between 08/13-08/14 was then replaced on 08/14. Patient seen and examined at bedside with present. He denies any complaints of pain nausea or vomiting. NG tube is still in place with copious amounts of green discharge, he has not yet passed gas. We discussed his decr easing blood counts as well as need for IV iron. We discussed what a bowel obstruction entails and why it sometimes can need surgery. All questions were answered. Vital signs reviewed General: nontoxic, no distress, appears at stated age Cardiovascular: S1S2 reg, no murmur, positive posterior tibial pulse bilateral, Lungs: Coarse breath sounds bilateral, no rhonchi, no rales , no accessory mu scle use Abdominal: soft, nontender to palpation, no guarding, no appreciable organomegaly, NG tube in place with dark green liquid Ext: no gross muscle atrophy, diffuse anasarca, no contractures Neuro: CN II-XI grossly intact, no focal neuro deficits Psych: Alert, oriented, appropriate affect Assessment: Post op Small Bowel obstruction Acute perforated diverticulitis with abscess and resolving sepsis- Group B strep and anerobic bacilli Sigmoid colectomy with end colostomy on 08/02/2032 Anemia, iron deficiency likely with acute blood loss Chronic/Resolved Metabolic alkalosis, resolved COPD on chronic prednisone, not in exacerbation Chronic hypoxemic respiratory failure on 2 L home O2 Imaging: Venous Doppler from 08/14-no evidence of upper extremity DVT, PICC line in place Data Review: Vital signs reviewed in afebrile for the last 24 hours Laboratory analysis shows hemoglobin 7.7, potassium 3.2, carbon dioxide 38, BUN 31, glucose 118 Plan: -Continue Lasix 20 mg IV push every 12 hours -Continue with Zosyn 3.375 g IV every 8 hours (day 17) -Protonix 40 mg IV daily -Case discussed with Dr. Moyer we'll continue to follow hemoglobin levels. No active signs of bleeding. Repeat CT in AM and possible need for laparoscopy -IV iron 125 mg 1 now - Decreased solucortef to 15 mg dialy -Infectious disease note reviewed: Continue with Zosyn. -Pulmonary note reviewed: No new recommendations -Continue with DuoNeb's 4 times daily and as needed, Pulmicort 1 mg twice daily, 4-20 mg twice daily -Patient continues to require Dilaudid 0.5 mg every 3 hours as needed for pain -Patient is on TPN day #13 -Repeat CBC at 1300 DVT prophylaxis: Lovenox This dictation was prepared using [employer] voice recognition software. Though every attempt is made to correct errors during during dictation some may still exist. Objective - Vital Signs Vital signs: Vital Signs Temp 98.2 F 08/15/22 14:48 Pulse 95 08/15/22 14:48 Resp 17 08/15/22 14:48 BP 95/62 08/15/22 14:48 Pulse Ox 95 08/15/22 14:48 FiO2 35 08/03/22 12:00 Intake & Output 08/14/22 08/15/22 08/15/22 18:59 06:59 18:59 Output Total 340 4475 Balance -340 -4475 Weight 73.4 kg Output: Gastric Drainage 240 Urine 4425 Uretheral (Art) 3125 Stool 100 50 Other: Voiding Method Indwelling Catheter Indwelling Catheter - Labs CBC & Chem 7: 08/15/22 14:38 08/15/22 07:04 Labs: Abnormal Lab Results - Last 24 Hours (Table) 08/14/22 08/14/22 08/14/22 Range/Units 16:08 16:11 19:34 RBC (4.30-5.90) m/uL Hgb (13.0-17.5) gm/dL Hct (39.0-53.0) % VBG pCO2 64 H (37-51) mmHg VBG HCO3 36 H (24-28) mmol/L Potassium (3.5-5.1) mmol/L Carbon Dioxide (22-30) mmol/L BUN (9-20) mg/dL Glucose (74-99) mg/dL POC Glucose (mg/dL) 118 H 155 H (70-110) mg/dL Calcium (8.4-10.2) mg/dL 08/15/22 08/15/22 08/15/22 Range/Units 00:06 06:01 07:04 RBC 2.65 L (4.30-5.90) m/uL Hgb 7.7 L (13.0-17.5) gm/dL Hct 24.5 L (39.0-53.0) % VBG pCO2 (37-51) mmHg VBG HCO3 (24-28) mmol/L Potassium (3.5-5.1) mmol/L Carbon Dioxide (22-30) mmol/L BUN (9-20) mg/dL Glucose (74-99) mg/dL POC Glucose (mg/dL) 208 H 170 H (70-110) mg/dL Calcium (8.4-10.2) mg/dL 08/15/22 08/15/22 08/15/22 Range/Units 07:04 11:34 14:38 RBC 2.54 L (4.30-5.90) m/uL Hgb 7.6 L (13.0-17.5) gm/dL Hct 23.9 L (39.0-53.0) % VBG pCO2 (37-51) mmHg VBG HCO3 (24-28) mmol/L Potassium 3.2 L (3.5-5.1) mmol/L Carbon Dioxide 38 H (22-30) mmol/L BUN 31 H (9-20) mg/dL Glucose 118 H (74-99) mg/dL POC Glucose (mg/dL) 135 H (70-110) mg/dL Calcium 8.0 L (8.4-10.2) mg/dL
[2022-08-15] MEDS: FAT EMULSION 20% 250 ML in EMPTY BAG 1 BAG IV SCH (16:38)
[2022-08-15 18:04] LABS: Glucose,Whole Blood 153 mg/dL (70-110)
[2022-08-15 22:58] LABS: Glucose,Whole Blood 141 mg/dL (70-110)
[2022-08-16] MEDS: PIPERACILLIN-TAZOBACTAM 3.375 GM in SODIUM CHLORIDE 0.9% 100 ML IVPB SCH ×3 (05:05→20:50)
[2022-08-16] MEDS: HYDROmorphone 1 MG/ML 1 ML SYRINGE IVP PRN ×3 (05:09→20:56)
[2022-08-16 05:14] LABS: Glucose,Whole Blood 154 mg/dL (70-110)
[2022-08-16] MEDS: LACTATED RINGERS 1,000 ML IV SCH (05:14)
[2022-08-16] MEDS: ENOXAPARIN 40 MG/0.4 ML SYRINGE SQ SCH (07:41)
[2022-08-16] MEDS: HYDROCORTISONE SUCCINATE 100 MG/2 ML VIAL IV SCH (07:55)
[2022-08-16] MEDS: PANTOPRAZOLE 40 MG/10 ML VIAL IV SCH (07:56)
[2022-08-16] MEDS: FUROSEMIDE 10 MG/ML 2 ML VIAL IV SCH ×2 (07:56→20:51)
[2022-08-16] MEDS: BUDESONIDE 1 MG/2 ML NEBU INHALATION SCH ×2 (08:30→19:06)
[2022-08-16] MEDS: FORMOTEROL FUMARATE 20 MCG/2 ML NEBU INHALATION SCH ×2 (08:30→19:06)
[2022-08-16] MEDS: IPRATROPIUM-ALBUTEROL 3 ML NEB INHALATION SCH ×4 (08:30→19:06)
[2022-08-16] MEDS: IOPAMIDOL CONTRAST (ORAL USE) VIAL PO PRN ×2 (08:40→09:47)
[2022-08-16 08:45] LABS: African American GFR (CKD) 78 (>60 ml/min/1.73 sqM); Anion Gap 6 mmol/L; Blood Urea Nitrogen 31 mg/dL (9-20); Calcium 7.8 mg/dL (8.4-10.2); Carbon Dioxide 32 mmol/L (22-30); Chloride 102 mmol/L (98-107); Glucose 139 mg/dL (74-99); Non-African American GFR(CKD) 68 (>60 ml/min/1.73 sqM); Phosphorus 3.2 mg/dL (2.5-4.5); Potassium 3.7 mmol/L (3.5-5.1); Sodium 140 mmol/L (137-145)
--- NOTE | 2022-08-16 09:58 | XR ---
EXAMINATION TYPE: XR chest 1V portable DATE OF EXAM: 08/16/2022 HISTORY: Shortness of breath. COMPARISON: 08/14/2022 TECHNIQUE: Single view of the chest is submitted. FINDINGS: Demonstrated are scattered senescent parenchymal change. Hyperinflation is compatible with COPD. Lef t-sided PICC line is noted to be in place and unchanged in position. NG tube is seen coursing into th e stomach. There is no evidence for focal infiltrate. The heart is stable. Hilar and mediastinal structures are within normal limits. Degenerative changes are seen of the dorsal spine. IMPRESSION: 1. Chronic changes without evidence for acute pulmonary disease.
[2022-08-16] MEDS ORDERED: SODIUM FERRIC GLUCONAT-SUCROSE 125 MG in SODIUM CHLORIDE 0.9% 100 ML IVPB ONE (10:00)
[2022-08-16 10:55] LABS: HCT 23.4 % (39.6-50.0); HGB 7.2 g/dL (13.0-17.0); MCHC 30.8 g/dL (32.0-37.0); MCV 97.5 fL (80.0-97.0); Mean Platelet Volume 9.1 fL (9.5-12.2); NRBC Per 100 WBC 0 /100 WBCS (0.0-0.0); Platelet Count 333 X 10*3/uL (140-440); RDW 14.7 % (11.5-14.5); WBC 5.81 X 10*3/uL (4.50-10.00)
--- NOTE | 2022-08-16 11:02 | CT ---
EXAMINATION TYPE: CT abdomen pelvis wo con DATE OF EXAM: 08/16/2022 COMPARISON: 08/13/2022 HISTORY: Small bowel obstruction CT DLP: 453 mGycm Examination of the solid and hollow viscera is limited given the lack of contrast. FINDINGS: LUNG BASES: Stable small left basilar pleural effusion and compressive atelectasis. Previously noted small right sided pleural effusion has resolved. LIVER/GB: The gallbladder is unremarkable. No space-occupying hepatic lesion. PANCREAS: No pancreatic mass identified. No inflammatory process seen. SPLEEN: No evidence for splenomegaly. No intrasplenic lesions seen. ADRENALS: No adrenal nodules identified. No evidence for thickening. KIDNEYS: No evidence for renal mass. No nephrolithiasis. No hydronephrosis. Art catheter decompress es the urinary bladder. BOWEL: Left-sided colostomy is noted to be in place. Dilated loops of small bowel have improved in th e interval and measure up to 2.4 cm currently. There continue be nondistended nonopacified loops of s mall bowel within the right hemiabdomen. Persistent transition zone noted within the upper pelvis cou ld reflect a partial obstruction versus ileus. Contrast is seen within the right hemicolon however th is could be from previous examination. No evidence of free air or abscess. Lymph nodes: No evidence for adenopathy greater than 1 cm. Abdominal aorta: Atheromatous changes seen. No evidence for aneurysm. Genital organs: No significant abnormality. Other: Midline skin talya noted. IMPRESSION: 1.Dilated loops of small bowel have improved in the interval and measure up to 2.4 cm currently. Ther e continue be nondistended nonopacified loops of small bowel within the right hemiabdomen. Persistent transition zone noted within the upper pelvis could reflect a partial obstruction versus ileus
[2022-08-16 12:13] LABS: Glucose,Whole Blood 167 mg/dL (70-110)
--- NOTE | 2022-08-16 12:21 | P.PN ---
Subjective Progress Note Date: 08/16/22 Principal diagnosis: Perforated diverticulitis and peritonitis Patient is a 72-year-old male presenting to the hospital abdominal pain has been diagnosed with acute diverticulitis with perforation treated medically did not have improvement subsequently was taken to the OR on 08/02/2022 and the patient is status post laparotomy; colectomy and diverting colostomy. On today's evaluation that is 08/16/2022, the patient remains to be afebrile, patient is breathing comfortably on 3L nasal cannula oxygen, patient continued to have the NG and denies any further vomiting, the patient abdominal pain is currently controlled no chest pain or shortness with occasional cough Objective - Vital Signs Vital signs: Vital Signs Temp 97.6 F 08/16/22 07:53 Pulse 88 08/16/22 11:39 Resp 17 08/16/22 07:53 BP 94/58 08/16/22 07:57 Pulse Ox 96 08/16/22 08:33 FiO2 35 08/03/22 12:00 Intake & Output 08/15/22 08/16/22 08/16/22 18:59 06:59 18:59 Intake Total 240 Output Total 1900 1500 100 Balance -1900 -1260 -100 Intake: IV 240 Lactated Ringers 1,000 ml 140 @ 20 mls/hr IV .Q24H [facility] Rx#:[id number] Piperacillin-Tazobactam 3 100 .375 gm In Sodium Chloride 0.9% 100 ml @ 25 mls/hr IVPB Q8H [facility] Rx#: [id number] Output: Gastric Drainage 350 100 100 Urine 1550 1400 Other: Voiding Method Indwelling Catheter - Exam GENERAL DESCRIPTION: An elderly male lying in bed in no distress RESPIRATORY SYSTEM: Unlabored breathing , decreased breath sounds at bases HEART: S1 S2 regular rate and rhythm , ABDOMEN: Soft , no tenderness EXTREMITIES: Did have extensive bruising to the upper extremity especially the left arm - Labs CBC & Chem 7: 08/16/22 07:07 08/16/22 07:07 Labs: Abnormal Lab Results - Last 24 Hours (Table) 08/15/22 08/15/22 08/15/22 Range/Units 14:38 18:02 22:56 RBC 2.54 L (4.30-5.90) m/uL Hgb 7.6 L (13.0-17.5) gm/dL Hct 23.9 L (39.0-53.0) % MCV (80.0-97.0) fL MCHC (32.0-37.0) g/dL RDW (11.5-14.5) % MPV (9.5-12.2) fL Carbon Dioxide (22-30) mmol/L BUN (9-20) mg/dL Glucose (74-99) mg/dL POC Glucose (mg/dL) 153 H 141 H (70-110) mg/dL Calcium (8.4-10.2) mg/dL 08/16/22 08/16/22 08/16/22 Range/Units 05:12 07:07 07:07 RBC 2.40 L (4.30-5.90) m/uL Hgb 7.2 L (13.0-17.5) gm/dL Hct 23.4 L (39.0-53.0) % MCV 97.5 H (80.0-97.0) fL MCHC 30.8 L (32.0-37.0) g/dL RDW 14.7 H (11.5-14.5) % MPV 9.1 L (9.5-12.2) fL Carbon Dioxide 32 H (22-30) mmol/L BUN 31 H (9-20) mg/dL Glucose 139 H (74-99) mg/dL POC Glucose (mg/dL) 154 H (70-110) mg/dL Calcium 7.8 L (8.4-10.2) mg/dL 08/16/22 Range/Units 12:11 RBC (4.30-5.90) m/uL Hgb (13.0-17.5) gm/dL Hct (39.0-53.0) % MCV (80.0-97.0) fL MCHC (32.0-37.0) g/dL RDW (11.5-14.5) % MPV (9.5-12.2) fL Carbon Dioxide (22-30) mmol/L BUN (9-20) mg/dL Glucose (74-99) mg/dL POC Glucose (mg/dL) 167 H (70-110) mg/dL Calcium (8.4-10.2) mg/dL Assessment and Plan (1) Diverticulitis of colon with perforation Current Visit: Yes Status: Acute Code(s): K57.20 - DVTRCLI OF LG INT W P ERFORATION AND ABSCESS W/O BLEEDING SNOMED Code(s): 48818076 Plan: 1patient was in the hospital with abdominal pain has been diagnosed with a complicated diverticulitis failing medical therapy and the patient subsequently status post laparotomy sigmoid colectomy and diverting colostomy with concern for secondary peritonitis from perforated sigmoid diverticulitis and need to cover for enteric gram-negative both aerobes and anaerobes 2-patient abdominal cultures grew group B strep and anaerobic gram-negative bacilli 3-the patient remains to be afebrile white count has been normal , however did have vomiting after discontinuation of NG , CT of abdominal pelvis did shows evidence of high-grade distal small bowel obstruction and is being monitor manage medically, with a repeat CAT scan completed on 08/16/2022 did show some improvement in the area as 4-the patient will be continued on Zosyn and monitor clinical course closely Time with Patient: Less than 30
--- NOTE | 2022-08-16 12:52 | P.PN ---
Subjective Progress Note Date: 08/16/22 On today's evaluation of 08/16/2022, the patient remains nothing by mouth and receiving for nutritional support. The patient has been unremarkable with of his colostomy bag in the upper from the injuries quite active. As such, and ongoing bowel complications this obstruction is suspected. The patient had a complicated diverticulitis. The patient initially presented to us more than 2 weeks ago and the patient had an acute sigmoid diverticulitis and a complicated diverticulitis with perforation and he had pockets of free intraperitoneal air measuring up to 5.5 cm in size. The patient was taken to the operating room and he underwent a sigmoid colectomy and end colostomy on 08/02/2022. Intra-ab dominal cultures are positive for anaerobic gram-negative bacillus and strep group B. A repeat CAT scan of the abdomen was done and it showed a high-grade distal small bowel obstruction with transition point identified and this was present to be related to adhesions. The patient is being admitted to going for another surgical expiration with the next 24 hours. Note is currently at 5.8 with a hemoglobin of 7. and a platelet count of 333. He has a 31 with a creatinine of 1 and a sodium levels of 140 with a potassium level of 3.7. The patient is on DuoNeb about treatments [id number], the patient is on Lovenox 40 mg subcu for DVT prophylaxis. The patient on TPN and the patient remains on IV Zosyn. ID is on the case. Surgery is also on the case. Note that a repeat CAT scan of the abdomen that was done today showed dilated loops of small bowel which have somewhat improved interval and measuring up to 2.4 cm however there was ongoing nondistended nonopacified loops of small bowel within the right hemiabdomen and persistent transition zone noted within the upper pelvis could be related to a partial obstruction versus an ileus. Objective - Vital Signs Vital signs: Vital Signs Temp 97.6 F 08/16/22 07:53 Pulse 88 08/16/22 08:47 Resp 17 08/16/22 07:53 BP 94/58 08/16/22 07:57 Pulse Ox 96 08/16/22 08:33 FiO2 35 08/03/22 12:00 Intake & Output 08/15/22 08/16/22 08/16/22 18:59 06:59 18:59 Intake Total 240 Output Total 1900 1500 100 Balance -1900 -1260 -100 Intake: IV 240 Lactated Ringers 1,000 ml 140 @ 20 mls/hr IV .Q24H [facility] Rx#:[id number] Piperacillin-Tazobactam 3 100 .375 gm In Sodium Chloride 0.9% 100 ml @ 25 mls/hr IVPB Q8H [facility] Rx#: [id number] Output: Gastric Drainage 350 100 100 Urine 1550 1400 Other: Voiding Method Indwelling Catheter - Exam GENERAL EXAM: Alert, pleasant 72-year-old male, on 3 L nasal cannula, currently with nausea. HEAD: Normocephalic. EYES: Normal reaction of pupils, equal size. NOSE: Nasogastric tube currently in place. Clear with pink turbinates. THROAT: No erythema or exudates. NECK: No masses, no JVD. CHEST: No chest wall deformity. LUNGS: Equal air entry with bilateral end expiratory wheeze, diminished. CVS: S1 and S2 normal with no audible murmur, regular rhythm. ABDOMEN: Postsurgical changes. Ostomy intact. Functioning with minimal stool. SPINE: No scoliosis or deformity SKIN: No rashes CENTRAL NERVOUS SYSTEM: No focal deficits, tone is normal in all 4 extremities. EXTREMITIES: There is no peripheral edema. No clubbing, no cyanosis. Peripheral pulses are intact. - Labs CBC & Chem 7: 08/16/22 07:07 08/16/22 07:07 Labs: Abnormal Lab Results - Last 24 Hours (Table) 08/15/22 08/15/22 08/15/22 Range/Units 11:34 14:38 18:02 RBC 2.54 L (4.30-5.90) m/uL Hgb 7.6 L (13.0-17.5) gm/dL Hct 23.9 L (39.0-53.0) % Carbon Dioxide (22-30) mmol/L BUN (9-20) mg/dL Glucose (74-99) mg/dL POC Glucose (mg/dL) 135 H 153 H (70-110) mg/dL Calcium (8.4-10.2) mg/dL 08/15/22 08/16/22 08/16/22 Range/Units 22:56 05:12 07:07 RBC (4.30-5.90) m/uL Hgb (13.0-17.5) gm/dL Hct (39.0-53.0) % Carbon Dioxide 32 H (22-30) mmol/L BUN 31 H (9-20) mg/dL Glucose 139 H (74-99) mg/dL POC Glucose (mg/dL) 141 H 154 H (70-110) mg/dL Calcium 7.8 L (8.4-10.2) mg/dL Assessment and Plan Plan: Acute perforated sigmoid diverticulitis with abscess, status post sigmoid co lectomy and end colostomy on 08/02/2022. Nasogastric tube removed. Abdominal x-ray revealed diffusely dilated small bowel loops measuring up to 4.5 cm suggesting postoperative ileus. There is liquid stool and gas in the ostomy. On 08/12/2022 seconds issues with nausea and vomiting. Still with some nausea and vomiting 08/13/2022. Computed tomography scan confirmed a high-grade distal small bowel obstruction with transition point identified presumed related to adhesions. Interval partial colectomy and colostomy changes noted. Nasogastric tube was reinserted. A repeat CAT scan of the abdomen on 08/16/2022 showed persistent transition zone in the upper pelvis could be related to partial o bstruction versus ileus. There was also dilated small loops of small bowel improved compared to the earlier CAT scan of the abdomen and pelvis that was done on 08/13/2022. Nevertheless, the opposite colostomy bag is minimal and the patient continues to have increased output from the NG tube. History of diverticulosis Recent hospitalization for an acute COPD exacerbation back in June 2022, ricarda ated and the patient has recovered Advanced COPD with an FEV1 of 26% of predicted, the patient is chronically oxygen and steroid dependent taking prednisone 10 mg by mouth daily. Ex-smoker and the patient quit smoking 2 years ago Chronic hypoxic respiratory failure maintained on O2 at 2 L nasal cannula Prostate cancer Acid reflux Plan: Keep the NG tube in place CAT scan of the abdomen and pelvis was noted and this will be discussed with general surgery Continue IV Zosyn Continue TPN Continue the current treatment plan We will continue to follow along well Possible another surgical exploration by general surgery.
--- NOTE | 2022-08-16 14:28 | P.PN ---
Subjective Progress Note Date: 08/16/22 CHIEF COMPLAINT: Perforated diverticulitis HISTORY OF PRESENT ILLNESS: Patient is status post sigmoid colectomy with end colostomy for perforated diverticulitis with abscess on 08/02/22. Patient had NG tube reinserted due to high-grade distal small bowel obstruction noted on CAT scan a few days ago. Patient reports that abdomen is still distended. No bowel activity noted in his ostomy. He doesn't nausea. Afebrile. Patient has been hypotensive. Patient also has been anemic and receiving his second dose of IV iron. WBC is 5.81 hgb is 7.2 platelets 333 sodium is 140 potassium 3.7 creatinine 1.09 patient had repeat computed tomography scan with oral contrast. Results showed dilated loops of small bowel have improved and interval and measuring up to 2.4 cm currently. There continue to be nondistended nonopacified loops of small bowel within the right hemiabdomen. Persistent transition zone noted within the upper pelvis could reflect a partial obstruction versus ileus. NG tube output 200ml of bilious output through the night and 50 this morning. There was reddish hint to the NG tube output and is possibly mild bleeding due to irritation of the gastric lining from the NG tube. Patient seen and examined with Dr. meadows PHYSICAL EXAM: VITAL SIGNS: Reviewed. GENERAL: Well-developed in no acute distress. ABDOMEN: Distended. Tender with palpation of the lower abdomen and near the incision. Wound is packed with gauze which has dried sanguinous discharge. Ostomy NEUROLOGIC: Alert and oriented. Cranial nerves II through XII grossly intact. ASSESSMENT: 1. Partial small bowel obstruction versus ileus noted on CAT scan 2. Perforated diverticulitis with abscess status post sigmoid colectomy with end colostomy 3. History of COPD PLAN: -Patient tentatively scheduled for exploratory laparotomy and lysis of adhesions tomorrow, 08/17/[address] Meadows depending on how he is doing -Keep patient nothing by mouth -Continue NG tube for decompression -Continue pain management -Continue antibiotics -Continue local wound care -Continue IV protonix -DVT prophylaxis Lovenox Physician [employer]per note has been reviewed by physician. Signing provider agrees with the documented findings, assessment, and plan of care. Objective - Vital Signs Vital signs: Vital Signs Temp 97.6 F 08/16/22 07:53 Pulse 88 08/16/22 11:39 Resp 17 08/16/22 07:53 BP 94/58 08/16/22 07:57 Pulse Ox 96 08/16/22 08:33 FiO2 35 08/03/22 12:00 Intake & Output 08/15/22 08/16/22 08/16/22 18:59 06:59 18:59 Intake Total 240 Output Total 1900 1500 100 Balance -1900 -1260 -100 Intake: IV 240 Lactated Ringers 1,000 ml 140 @ 20 mls/hr IV .Q24H [facility] Rx#:[id number] Piperacillin-Tazobactam 3 100 .375 gm In Sodium Chloride 0.9% 100 ml @ 25 mls/hr IVPB Q8H [facility] Rx#: [id number] Output: Gastric Drainage 350 100 100 Urine 1550 1400 Other: Voiding Method Indwelling Catheter - Labs CBC & Chem 7: 08/16/22 07:07 08/16/22 07:07 Labs: Abnormal Lab Results - Last 24 Hours (Table) 08/15/22 08/15/22 08/15/22 Range/Units 14:38 18:02 22:56 RBC 2.54 L (4.30-5.90) m/uL Hgb 7.6 L (13.0-17.5) gm/dL Hct 23.9 L (39.0-53.0) % MCV (80.0-97.0) fL MCHC (32.0-37.0) g/dL RDW (11.5-14.5) % MPV (9.5-12.2) fL Carbon Dioxide (22-30) mmol/L BUN (9-20) mg/dL Glucose (74-99) mg/dL POC Glucose (mg/dL) 153 H 141 H (70-110) mg/dL Calcium (8.4-10.2) mg/dL 08/16/22 08/16/22 08/16/22 Range/Units 05:12 07:07 07:07 RBC 2.40 L (4.30-5.90) m/uL Hgb 7.2 L (13.0-17.5) gm/dL Hct 23.4 L (39.0-53.0) % MCV 97.5 H (80.0-97.0) fL MCHC 30.8 L (32.0-37.0) g/dL RDW 14.7 H (11.5-14.5) % MPV 9.1 L (9.5-12.2) fL Carbon Dioxide 32 H (22-30) mmol/L BUN 31 H (9-20) mg/dL Glucose 139 H (74-99) mg/dL POC Glucose (mg/dL) 154 H (70-110) mg/dL Calcium 7.8 L (8.4-10.2) mg/dL 08/16/22 Range/Units 12:11 RBC (4.30-5.90) m/uL Hgb (13.0-17.5) gm/dL Hct (39.0-53.0) % MCV (80.0-97.0) fL MCHC (32.0-37.0) g/dL RDW (11.5-14.5) % MPV (9.5-12.2) fL Carbon Dioxide (22-30) mmol/L BUN (9-20) mg/dL Glucose (74-99) mg/dL POC Glucose (mg/dL) 167 H (70-110) mg/dL Calcium (8.4-10.2) mg/dL
[2022-08-16] MEDS: HYDROmorphone 0.5 MG/0.5 ML SYRINGE IVP PRN (17:23)
[2022-08-16 17:52] LABS: Glucose,Whole Blood 162 mg/dL (70-110)
--- NOTE | 2022-08-16 18:59 | P.PN ---
Subjective Progress Note Date: 08/16/22 (delayed charting seen at 1030) Patient is a 72-year-old male with COPD on home O2 at 3 L, diverticulosis and GERD who initially presented to the ER with complaints of abdominal pain. CT abdomen and pelvis showed acute sigmoid diverticulitis complicated by perforation with pockets of free intraperitoneal air measuring up to 5.5 cm accompanied by trace lower abdominal ascites, secondary small bowel ileus, moderate sized hiatal hernia, mild circumferential distal esophageal wall thick ening, and prostamegaly. Patient was admitted to general surgery and we are consulted for medical management. He underwent sigmoidectomy with end colostomy on 08/02 and was transported to the ICU where he was extubated on 08/03. NG tube was initially removed on 08/09. It was reinserted on 08/13. NG tube was a removed overnight between 08/13-08/14 was then replaced on 08/14. Venous Doppler from 08/14-no evidence of upper extremity DVT, PICC line in place Patient seen and examined at bedside. He does report some more congestion today as opposed to yesterday. Denies any nausea or vomiting, still has not passed gas. Nursing patient has had more scant red output from NG tube, 200 mL of output ove rnight Vital signs reviewed General: nontoxic, no distress, appears at stated age Cardiovascular: S1S2 reg, no murmur, positive posterior tibial pulse bilateral, Lungs: Coarse breath sounds bilateral, no rhonchi, no rales , no accessory muscle use Abdominal: soft, +tender to palpation RLQ, no guarding, no appreciable organomegaly, NG tube in place with dark green liquid Ext: no gross muscle atrophy, diffuse anasarca, no contractures Neuro: CN II-XI grossly intact, no focal neuro deficits Psych: Alert, oriented, appropriate affect Assessment: Post op Small Bowel obstruction vs ileus with transition point on CT Acute perforated diverticulitis with abscess and resolving sepsis- Group B strep and anerobic bacilli Sigmoid colectomy with end colostomy on 08/02/2032 Anemia, iron deficiency likely with acute blood loss Chronic/Resolved Metabolic alkalosis, resolved COPD on chronic prednisone, not in exacerbation Chronic hypoxemic respiratory failure on 2 L home O2 Imaging: None new Data Review: Vital signs reviewed temperature 97.6, pulse 89, respirations 17, blood pressure 87/45, O2 sat 94% on 3 L Labs reviewed remarkable for hemoglobin 7.2 (down from 7.6 yesterday) Plan: -IV iron D # 2 - Case discussed with general surgery, awaiting CAT scan today and possible need for repeat surgery -Chest x-ray ordered and reviewed by myself shows no acute process with chronic COPD changes, NG tube in place, and increased pulmonary vascular markings -Pulmonary note reviewed: No new recommendations -Infectious disease note reviewed: Continue with Zosyn -General surgery note reviewed: Schedule for expiratory laparotomy 08/17 - Continue Lasix 20 mg IV push every 12 hours -Continue with Zosyn 3.375 g IV every 8 hours (day 18) -Protonix 40 mg IV daily - Solucortef 25 mg daily D # 2 -Continue with bronchdilators -Patient continues to require Dilaudid 0.5 mg every 3 hours as needed for pain -Patient is on TPN day #14 - CBC and BMP in AM DVT prophylaxis: Lovenox This dictation was prepared using Q.ME voice recognition software. Though every attempt is made to correct errors during during dictation some may still exist. Objective - Vital Signs Vital signs: Vital Signs Temp 97.7 F 08/16/22 14:55 Pulse 86 08/16/22 15:43 Resp 17 08/16/22 14:55 BP 106/49 08/16/22 14:55 Pulse Ox 99 08/16/22 14:55 FiO2 35 08/03/22 12:00 Intake & Output 08/15/22 08/16/22 08/16/22 18:59 06:59 18:59 Intake Total 240 Output Total 1900 1500 1875 Balance -1900 -1260 -1875 Weight 73.4 kg Intake: IV 240 Lactated Ringers 1,000 ml 140 @ 20 mls/hr IV .Q24H [facility] Rx#:[id number] Piperacillin-Tazobactam 3 100 .375 gm In Sodium Chloride 0.9% 100 ml @ 25 mls/hr IVPB Q8H [facility] Rx#: [id number] Output: Gastric Drainage 350 100 625 Urine 1550 1400 1250 Other: Voiding Method Indwelling Catheter - Labs CBC & Chem 7: 08/16/22 07:07 08/16/22 07:07 Labs: Abnormal Lab Results - Last 24 Hours (Table) 08/15/22 08/16/22 08/16/22 Range/Units 22:56 05:12 07:07 RBC (4.40-5.60) X 10*6/uL Hgb (13.0-17.0) g/dL Hct (39.6-50.0) % MCV (80.0-97.0) fL MCHC (32.0-37.0) g/dL RDW (11.5-14.5) % MPV (9.5-12.2) fL Carbon Dioxide 32 H (22-30) mmol/L BUN 31 H (9-20) mg/dL Glucose 139 H (74-99) mg/dL POC Glucose (mg/dL) 141 H 154 H (70-110) mg/dL Calcium 7.8 L (8.4-10.2) mg/dL 08/16/22 08/16/22 08/16/22 Range/Units 07:07 12:11 17:50 RBC 2.40 L (4.40-5.60) X 10*6/uL Hgb 7.2 L (13.0-17.0) g/dL Hct 23.4 L (39.6-50.0) % MCV 97.5 H (80.0-97.0) fL MCHC 30.8 L (32.0-37.0) g/dL RDW 14.7 H (11.5-14.5) % MPV 9.1 L (9.5-12.2) fL Carbon Dioxide (22-30) mmol/L BUN (9-20) mg/dL Glucose (74-99) mg/dL POC Glucose (mg/dL) 167 H 162 H (70-110) mg/dL Calcium (8.4-10.2) mg/dL
[2022-08-17 00:15] LABS: Glucose,Whole Blood 129 mg/dL (70-110)
[2022-08-17] MEDS: HYDROmorphone 1 MG/ML 1 ML SYRINGE IVP PRN (02:52)
[2022-08-17] MEDS: PIPERACILLIN-TAZOBACTAM 3.375 GM in SODIUM CHLORIDE 0.9% 100 ML IVPB SCH ×3 (05:01→20:43)
[2022-08-17 05:59] LABS: Glucose,Whole Blood 155 mg/dL (70-110)
[2022-08-17 07:11] LABS: HCT 25.4 % (39.0-53.0); HGB 8.1 gm/dL (13.0-17.5); Hypochromasia Slight; MCH 30.4 pg (25.0-35.0); MCV 95.1 fL (80.0-100.0); Mean Platelet Volume 7.4; Platelet Count 372 k/uL (150-450); RBC 2.67 m/uL (4.30-5.90); RDW 14.4 % (11.5-15.5)
[2022-08-17 07:24] LABS: ALT 28 U/L (4-49); AST 28 U/L (17-59); African American GFR (CKD) 68 (>60 ml/min/1.73 sqM); Albumin 2.5 g/dL (3.5-5.0); Albumin/Globulin Ratio 1.2; Alkaline Phosphatase 57 U/L (38-126); Anion Gap 1 mmol/L; Blood Urea Nitrogen 31 mg/dL (9-20); Calcium 8.1 mg/dL (8.4-10.2); Carbon Dioxide 39 mmol/L (22-30); Chloride 100 mmol/L (98-107); Globulin 2.1 g/dL; Glucose 141 mg/dL (74-99); Non-African American GFR(CKD) 59 (>60 ml/min/1.73 sqM); Phosphorus 3.3 mg/dL (2.5-4.5); Sodium 140 mmol/L (137-145); Total Bilirubin 0.5 mg/dL (0.2-1.3); Total Protein 4.6 g/dL (6.3-8.2)
[2022-08-17] MEDS: HYDROCORTISONE SUCCINATE 100 MG/2 ML VIAL IV SCH (08:01)
[2022-08-17] MEDS: PANTOPRAZOLE 40 MG/10 ML VIAL IV SCH (08:01)
[2022-08-17] MEDS: HYDROmorphone 0.5 MG/0.5 ML SYRINGE IVP PRN ×3 (08:02→21:25)
[2022-08-17] MEDS: FUROSEMIDE 10 MG/ML 2 ML VIAL IV SCH ×2 (08:02→20:43)
[2022-08-17] MEDS: LACTATED RINGERS 1,000 ML IV SCH (08:50)
[2022-08-17] MEDS: FORMOTEROL FUMARATE 20 MCG/2 ML NEBU INHALATION SCH ×2 (09:48→20:51)
[2022-08-17] MEDS: IPRATROPIUM-ALBUTEROL 3 ML NEB INHALATION SCH ×4 (09:48→20:51)
[2022-08-17] MEDS: BUDESONIDE 1 MG/2 ML NEBU INHALATION SCH ×2 (09:49→20:52)
[2022-08-17 12:11] LABS: Glucose,Whole Blood 161 mg/dL (70-110)
--- NOTE | 2022-08-17 12:32 | P.PN ---
Subjective Progress Note Date: 08/17/22 On today's evaluation of 08/16/2022, the patient remains nothing by mouth and receiving for nutritional support. The patient has been unremarkable with of his colostomy bag in the upper from the injuries quite active. As such, and ongoing bowel complications this obstruction is suspected. The patient had a complicated diverticulitis. The patient initially presented to us more than 2 weeks ago and the patient had an acute sigmoid diverticulitis and a complicated diverticulitis with perforation and he had pockets of free intraperitoneal air measuring up to 5.5 cm in size. The patient was taken to the operating room and he underwent a sigmoid colectomy and end colostomy on 08/02/2022. Intra-ab dominal cultures are positive for anaerobic gram-negative bacillus and strep group B. A repeat CAT scan of the abdomen was done and it showed a high-grade distal small bowel obstruction with transition point identified and this was present to be related to adhesions. The patient is being admitted to going for another surgical expiration with the next 24 hours. Note is currently at 5.8 with a hemoglobin of 7. and a platelet count of 333. He has a 31 with a creatinine of 1 and a sodium levels of 140 with a potassium level of 3.7. The patient is on DuoNeb about treatments [id number], the patient is on Lovenox 40 mg subcu for DVT prophylaxis. The patient on TPN and the patient remains on IV Zosyn. ID is on the case. Surgery is also on the case. Note that a repeat CAT scan of the abdomen that was done today showed dilated loops of small bowel which have somewhat improved interval and measuring up to 2.4 cm however there was ongoing nondistended nonopacified loops of small bowel within the right hemiabdomen and persistent transition zone noted within the upper pelvis could be related to a partial obstruction versus an ileus. On today's evaluation of 08/17/2022, the patient is awake and alert and communicating. NG tube is still in place. The results of the CAT scan of the abdomen from yesterday was noted. The patient has improved up with his colostomy bag and we are awaiting further surgical input whether the patient will need another expiratory laparotomy. Otherwise, the patient is receiving TPN for nutritional support. His white cell count is at 5 with a hemoglobin of 8.1 from today and the patient has a BUN of 31 with creatinine 1.2 and a sodium level of 140. Electrolytes are within normal limits. The patient is on DuoNeb updrafts. The patient on Lovenox for DVT prophylaxis. The patient is on Perforomist and Pulmicort updrafts twice a day. The patient is still receiving TPN and IV Zosyn. Abdomen is nontender. Objective - Vital Signs Vital signs: Vital Signs Temp 97.7 F 08/17/22 08:00 Pulse 82 08/17/22 10:07 Resp 18 08/17/22 10:07 BP 103/65 08/17/22 08:00 Pulse Ox 99 08/17/22 09:49 FiO2 35 08/03/22 12:00 Intake & Output 08/16/22 08/17/22 08/17/22 18:59 06:59 18:59 Intake Total 1051 Output Total 1875 1900 275 Balance -824 -1900 -275 Weight 73.4 kg Intake: Intake, IV Titration 1051 Amount Sodium Phosphate 15 mmol 1051 Sodium Chloride 4Meq/ml Vial 30 meq Potassium Chloride 54 meq Magnesium Sulfate gm 0.75 gm Calcium Gluconate 1 gm In Amino Acids 5 %/Dextrose 20 % 1,000 ml @ 80 mls/ hr IV .BY DURATION [facility] Rx #:[id number] Output: Gastric Drainage 625 Urine 1250 1900 Other 275 Other: Voiding Method Indwelling Catheter - Exam GENERAL EXAM: Alert, pleasant 72-year-old male, on 3 L nasal cannula, currently with nausea. HEAD: Normocephalic. EYES: Normal reaction of pupils, equal size. NOSE: Nasogastric tube currently in place. Clear with pink turbinates. THROAT: No erythema or exudates. NECK: No masses, no JVD. CHEST: No chest wall deformity. LUNGS: Equal air entry with bilateral end expiratory wheeze, diminished. CVS: S1 and S2 normal with no audible murmur, regular rhythm. ABDOMEN: Postsurgical changes. Ostomy intact. Functioning with minimal stool. SPINE: No scoliosis or deformity SKIN: No rashes CENTRAL NERVOUS SYSTEM: No focal deficits, tone is normal in all 4 extremities. EXTREMITIES: There is no peripheral edema. No clubbing, no cyanosis. Peripheral pulses are intact. - Labs CBC & Chem 7: 08/17/22 05:48 08/17/22 05:48 Labs: Abnormal Lab Results - Last 24 Hours (Table) 08/14/22 08/16/22 08/16/22 Range/Units 08:35 07:07 12:11 RBC 2.40 L (4.40-5.60) X 10*6/uL Hgb 7.2 L (13.0-17.0) g/dL Hct 23.4 L (39.6-50.0) % MCV 97.5 H (80.0-97.0) fL MCHC 30.8 L (32.0-37.0) g/dL RDW 14.7 H (11.5-14.5) % MPV 9.1 L (9.5-12.2) fL Carbon Dioxide (22-30) mmol/L BUN (9-20) mg/dL Glucose (74-99) mg/dL POC Glucose (mg/dL) 167 H (70-110) mg/dL Calcium (8.4-10.2) mg/dL Total Protein (6.3-8.2) g/dL Albumin (3.5-5.0) g/dL RBC Folate 921 H (280 - 791) ng/mL 08/16/22 08/17/22 08/17/22 Range/Units 17:50 00:13 05:48 RBC (4.40-5.60) X 10*6/uL Hgb (13.0-17.0) g/dL Hct (39.6-50.0) % MCV (80.0-97.0) fL MCHC (32.0-37.0) g/dL RDW (11.5-14.5) % MPV (9.5-12.2) fL Carbon Dioxide 39 H (22-30) mmol/L BUN 31 H (9-20) mg/dL Glucose 141 H (74-99) mg/dL POC Glucose (mg/dL) 162 H 129 H (70-110) mg/dL Calcium 8.1 L (8.4-10.2) mg/dL Total Protein 4.6 L (6.3-8.2) g/dL Albumin 2.5 L (3.5-5.0) g/dL RBC Folate (280 - 791) ng/mL 08/17/22 08/17/22 Range/Units 05:48 05:58 RBC 2.67 L (4.40-5.60) X 10*6/uL Hgb 8.1 L (13.0-17.0) g/dL Hct 25.4 L (39.6-50.0) % MCV (80.0-97.0) fL MCHC (32.0-37.0) g/dL RDW (11.5-14.5) % MPV (9.5-12.2) fL Carbon Dioxide (22-30) mmol/L BUN (9-20) mg/dL Glucose (74-99) mg/dL POC Glucose (mg/dL) 155 H (70-110) mg/dL Calcium (8.4-10.2) mg/dL Total Protein (6.3-8.2) g/dL Albumin (3.5-5.0) g/dL RBC Folate (280 - 791) ng/mL Assessment and Plan Plan: Acute perforated sigmoid diverticulitis with abscess, status post sigmoid colectomy and end colostomy on 08/02/2022. Nasogastric tube removed. Abdominal x-ray revealed diffusely dilated small bowel loops measuring up to 4.5 cm suggesting postoperative ileus. There is liquid stool and gas in the ostomy. On 08/12/2022 seconds issues with nausea and vomiting. Still with some nausea and vomiting 08/13/2022. Computed tomography scan confirmed a high-grade distal small bowel obstruction with transition point identified presumed related to adh esions. Interval partial colectomy and colostomy changes noted. Nasogastric tube was reinserted. A repeat CAT scan of the abdomen on 08/16/2022 showed persistent transition zone in the upper pelvis could be related to partial obstruction versus ileus. There was also dilated small loops of small bowel improved compared to the earlier CAT scan of the abdomen and pelvis that was done on 08/13/2022. Nevertheless, the opposite colostomy bag is minimal and the patient continues to have increased output from the NG tube. History of diverticulosis Recent hospitalization for an acute COPD exacerbation back in June 2022, treated and the patient has recovered Advanced COPD with an FEV1 of 26% of predicted, the patient is chronically oxygen and steroid dependent taking prednisone 10 mg by mouth daily. The patient is currently on hydrocortisone IV 25 mg daily basis. Ex-smoker and the patient quit smoking 2 years ago Chronic hypoxic respiratory failure maintained on O2 at 2 L nasal cannula Prostate cancer Acid reflux Plan: Awaiting final recommendations whether the patient will need surgery. CAT scan from yesterday was noted and the patient is improved or partial improvement in the dilatation of the small bowel and the patient is showing some increase operative the colostomy bag. Keep the NG tube in place Awaiting final recommendations from general surgery Continue IV Zosyn Continue TPN Continue the current treatment plan We will continue to follow along well Possible another surgical exploration by general surgery.
--- NOTE | 2022-08-17 14:14 | P.PN ---
Subjective Progress Note Date: 08/17/22 Principal diagnosis: Perforated diverticulitis and peritonitis Patient is a 72-year-old male presenting to the hospital abdominal pain has been diagnosed with acute diverticulitis with perforation treated medically did not have improvement subsequently was taken to the OR on 08/02/2022 and the patient is status post laparotomy; colectomy and diverting colostomy. On today's evaluation that is 08/17/2022, the patient continues to be afebrile, patient is breathing comfortably on 3L nasal cannula oxygen, patient denies having any nausea or vomiting, the patient still have the NG, the patient abdominal pain is currently controlled no chest pain or shortness with occa sional cough Objective - Vital Signs Vital signs: Vital Signs Temp 97.7 F 08/17/22 08:00 Pulse 82 08/17/22 10:07 Resp 18 08/17/22 10:07 BP 103/65 08/17/22 08:00 Pulse Ox 99 08/17/22 09:49 FiO2 35 08/03/22 12:00 Intake & Output 08/16/22 08/17/22 08/17/22 18:59 06:59 18:59 Intake Total 1051 Output Total 1875 1900 2375 Balance -824 -1900 -2375 Weight 73.4 kg Intake: Intake, IV Titration 1051 Amount Sodium Phosphate 15 mmol 1051 Sodium Chloride 4Meq/ml Vial 30 meq Potassium Chloride 54 meq Magnesium Sulfate gm 0.75 gm Calcium Gluconate 1 gm In Amino Acids 5 %/Dextrose 20 % 1,000 ml @ 80 mls/ hr IV .BY DURATION [facility] Rx #:[id number] Output: Gastric Drainage 625 Urine 1250 1900 2100 Other 275 Other: Voiding Method Indwelling Catheter - Exam GENERAL DESCRIPTION: An elderly male lying in bed in no distress RESPIRATORY SYSTEM: Unlabored breathing , decreased breath sounds at bases HEART: S1 S2 regular rate and rhythm , ABDOMEN: Soft , no tenderness EXTREMITIES: Did have extensive bruising to the upper extremity especially the left arm - Labs CBC & Chem 7: 08/17/22 05:48 08/17/22 05:48 Labs: Abnormal Lab Results - Last 24 Hours (Table) 08/14/22 08/16/22 08/17/22 Range/Units 08:35 17:50 00:13 RBC (4.30-5.90) m/uL Hgb (13.0-17.5) gm/dL Hct (39.0-53.0) % Carbon Dioxide (22-30) mmol/L BUN (9-20) mg/dL Glucose (74-99) mg/dL POC Glucose (mg/dL) 162 H 129 H (70-110) mg/dL Calcium (8.4-10.2) mg/dL Total Protein (6.3-8.2) g/dL Albumin (3.5-5.0) g/dL RBC Folate 921 H (280 - 791) ng/mL 08/17/22 08/17/22 08/17/22 Range/Units 05:48 05:48 05:58 RBC 2.67 L (4.30-5.90) m/uL Hgb 8.1 L (13.0-17.5) gm/dL Hct 25.4 L (39.0-53.0) % Carbon Dioxide 39 H (22-30) mmol/L BUN 31 H (9-20) mg/dL Glucose 141 H (74-99) mg/dL POC Glucose (mg/dL) 155 H (70-110) mg/dL Calcium 8.1 L (8.4-10.2) mg/dL Total Protein 4.6 L (6.3-8.2) g/dL Albumin 2.5 L (3.5-5.0) g/dL RBC Folate (280 - 791) ng/mL 08/17/22 Range/Units 12:10 RBC (4.30-5.90) m/uL Hgb (13.0-17.5) gm/dL Hct (39.0-53.0) % Carbon Dioxide (22-30) mmol/L BUN (9-20) mg/dL Glucose (74-99) mg/dL POC Glucose (mg/dL) 161 H (70-110) mg/dL Calcium (8.4-10.2) mg/dL Total Protein (6.3-8.2) g/dL Albumin (3.5-5.0) g/dL RBC Folate (280 - 791) ng/mL Assessment and Plan (1) Diverticulitis of colon with perforation Current Visit: Yes Status: Acute Code(s): K57.20 - DVTRCLI OF LG INT W PERFORATION AND ABSCESS W/O BLEEDING SNOMED Code(s): 95748184 Plan: 1patient was in the hospital with abdominal pain has been diagnosed with a complicated diverticulitis failing medical therapy and the patient subsequently status post laparotomy sigmoid colectomy and diverting colostomy with concern for secondary peritonitis from perforated sigmoid diverticulitis and need to cover for enteric gram-negative both aerobes and anaerobes 2-patient abdominal cultures grew group B strep and anaerobic gram-negative bacilli 3-the patient remains to be afebrile white count has been normal , CT of abdominal pelvis did shows evidence of high-grade distal small bowel obstruction and is being monitor manage medically, with a repeat CAT scan completed on 08/16/2022 did show some improvement in the area as 4-the patient to continue Zosyn and continue with supportive care Time with Patient: Less than 30
--- NOTE | 2022-08-17 14:55 | P.PN ---
Subjective Progress Note Date: 08/17/22 CHIEF COMPLAINT: Perforated diverticulitis HISTORY OF PRESENT ILLNESS: Patient is status post sigmoid colectomy with end colostomy for perforated diverticulitis with abscess on 08/02/22. Patient continues to have high output through NG tube. He has had increased output through his ostomy. Abdominal pain has also shown improvement. His pain now is more with movement. He does occasionally have nausea. Afebrile. WBC 5.0 hgb 8.1 platelets 372 7140 potassium is 5.0 creatinine 1.22 Patient seen and examined with Dr. meadows PHYSICAL EXAM: VITAL SIGNS: Reviewed. GENERAL: Well-developed in no acute distress. ABDOMEN: Decreased abdominal distention. Increased output through ostomy with stool. Incision clean dry and intact with abdominal wound with gauze packing NEUROLOGIC: Alert and oriented. Cranial nerves II through XII grossly intact. ASSESSMENT: 1. Partial small bowel obstruction versus ileus noted on CAT scan 2. Perforated diverticulitis with abscess status post sigmoid colectomy with end colostomy 3. History of COPD PLAN: -Patient has increased output through his ostomy abdominal pain and distention has decreased. Will hold off on surgery today. At this time no surgical intervention planned. Continue to monitor patient -Keep patient nothing by mouth -Continue NG tube for decompression -Continue pain management -Continue antibiotics -Continue local wound care -Continue IV protonix -DVT prophylaxis Lovenox Physician Geothermal Operations Engineer note has been reviewed by physician. Signing provider agrees with the documented findings, assessment, and plan of care. Objective - Vital Signs Vital signs: Vital Signs Temp 97.7 F 08/17/22 08:00 Pulse 82 08/17/22 10:07 Resp 18 08/17/22 10:07 BP 103/65 08/17/22 08:00 Pulse Ox 99 08/17/22 09:49 FiO2 35 08/03/22 12:00 Intake & Output 08/16/22 08/17/22 08/17/22 18:59 06:59 18:59 Intake Total 1051 Output Total 9042 1900 275 Balance -824 -1900 -275 Weight 73.4 kg Intake: Intake, IV Titration 1051 Amount Sodium Phosphate 15 mmol 1051 Sodium Chloride 4Meq/ml Vial 30 meq Potassium Chloride 54 meq Magnesium Sulfate gm 0.75 gm Calcium Gluconate 1 gm In Amino Acids 5 %/Dextrose 20 % 1,000 ml @ 80 mls/ hr IV .BY DURATION [facility] Rx #:[id number] Output: Gastric Drainage 625 Urine 1250 1900 Other 275 Other: Voiding Method Indwelling Catheter - Labs CBC & Chem 7: 08/17/22 05:48 08/17/22 05:48 Labs: Abnormal Lab Results - Last 24 Hours (Table) 08/14/22 08/16/22 08/17/22 Range/Units 08:35 17:50 00:13 RBC (4.30-5.90) m/uL Hgb (13.0-17.5) gm/dL Hct (39.0-53.0) % Carbon Dioxide (22-30) mmol/L BUN (9-20) mg/dL Glucose (74-99) mg/dL POC Glucose (mg/dL) 162 H 129 H (70-110) mg/dL Calcium (8.4-10.2) mg/dL Total Protein (6.3-8.2) g/dL Albumin (3.5-5.0) g/dL RBC Folate 921 H (280 - 791) ng/mL 08/17/22 08/17/22 08/17/22 Range/Units 05:48 05:48 05:58 RBC 2.67 L (4.30-5.90) m/uL Hgb 8.1 L (13.0-17.5) gm/dL Hct 25.4 L (39.0-53.0) % Carbon Dioxide 39 H (22-30) mmol/L BUN 31 H (9-20) mg/dL Glucose 141 H (74-99) mg/dL POC Glucose (mg/dL) 155 H (70-110) mg/dL Calcium 8.1 L (8.4-10.2) mg/dL Total Protein 4.6 L (6.3-8.2) g/dL Albumin 2.5 L (3.5-5.0) g/dL RBC Folate (280 - 791) ng/mL 08/17/22 Range/Units 12:10 RBC (4.30-5.90) m/uL Hgb (13.0-17.5) gm/dL Hct (39.0-53.0) % Carbon Dioxide (22-30) mmol/L BUN (9-20) mg/dL Glucose (74-99) mg/dL POC Glucose (mg/dL) 161 H (70-110) mg/dL Calcium (8.4-10.2) mg/dL Total Protein (6.3-8.2) g/dL Albumin (3.5-5.0) g/dL RBC Folate (280 - 791) ng/mL
[2022-08-17] MEDS: ENOXAPARIN 40 MG/0.4 ML SYRINGE SQ SCH (15:06)
--- NOTE | 2022-08-17 15:10 | P.PN ---
Subjective Progress Note Date: 08/17/22 Patient is a 72-year-old male with COPD on home O2 at 3 L, diverticulosis and GERD who initially presented to the ER with complaints of abdominal pain. CT abdomen and pelvis showed acute sigmoid diverticulitis complicated by perforation with pockets of free intraperitoneal air measuring up to 5.5 cm accompanied by trace lower abdominal ascites, secondary small bowel ileus, moderate sized hiatal hernia, mild circumferential distal esophageal wall thickening, and prostamegaly. Patient was admitted to general surgery and we are consulted for medical management. He underwent sigmoidectomy with end colostomy on 08/02 and was transported to the ICU where he was extubated on 08/03. NG tube was initially removed on 08/09. It was reinserted on 08/13. NG tube was a removed overnight between 08/13-08/14 was then replaced on 08/14. Venous Doppler from 08/14-no evidence of upper extremity DVT, PICC line in place Patient seen and examined at bedside. He c/o increased abdominal pain today, no chest pain, breathing well, + Nasal congestion, he believes increased ostomy output. Vital signs reviewed General: nontoxic, no distress, appears at stated age Cardiovascular: S1S2 reg, no murmur, positive posterior tibial pulse bilateral, Lungs: Coarse breath sounds bilateral, no rhonchi, no rales , no accessory muscle use Abdominal: soft, +tender to palpation diffusely, no guarding, no appreciable organomegaly, NG tube in place with dark green liquid Ext: no gross muscle atrophy, diffuse anasarca, no contractures Neuro: CN II-XI grossly intact, no focal neuro deficits Psych: Alert, oriented, appropriate affect Assessment: Post op Small Bowel obstruction vs ileus with transition point on CT Acute perforated diverticulitis with abscess and resolving sepsis- Group B strep and anerobic bacilli Sigmoid colectomy with end colostomy on 08/02/2032 Anemia, iron deficiency likely with acute blood loss Chronic/Resolved Metabolic alkalosis, resolved COPD on chronic prednisone, not in exacerbation Chronic hypoxemic respiratory failure on 2 L home O2 Imaging: None new Data Review: Vital signs reviewed temperature 97.7, pulse 82, respirations 16, Sarah 103/65, O2 sat 100% on room air Labs reviewed and remarkable for hemoglobin of 8.1 (up from 7.2) Plan: -IV iron D # 3 today and now complete -Pulmonary note reviewed: No new recommendations -Infectious disease note reviewed: Continue with Zosyn - D/W Dr. Moyer and no surgery today as increased output in ostomy - Continue Lasix 20 mg IV push every 12 hours -Continue with Zosyn 3.375 g IV every 8 hours (day 19) -Protonix 40 mg IV daily - Solucortef 25 mg daily D # 3 -Continue with bronchdilators -Patient continues to require Dilaudid 0.5 mg every 3 hours as needed for pain -Patient is on TPN day #15 - CBC and BMP in AM DVT prophylaxis: Lovenox This dictation was prepared using [employer] voice recognition software. Though every attempt is made to correct errors during during dictation some may still exist. Objective - Vital Signs Vital signs: Vital Signs Temp 97.7 F 08/17/22 08:00 Pulse 96 08/17/22 13:06 Resp 18 08/17/22 10:07 BP 103/65 08/17/22 08:00 Pulse Ox 99 08/17/22 09:49 FiO2 35 08/03/22 12:00 Intake & Output 08/16/22 08/17/22 08/17/22 18:59 06:59 18:59 Intake Total 1051 Output Total 1873 1900 2375 Balance -824 -1900 -2377 Weight 73.4 kg Intake: Intake, IV Titration 1051 Amount Sodium Phosphate 15 mmol 1051 Sodium Chloride 4Meq/ml Vial 30 meq Potassium Chloride 54 meq Magnesium Sulfate gm 0.75 gm Calcium Gluconate 1 gm In Amino Acids 5 %/Dextrose 20 % 1,000 ml @ 80 mls/ hr IV .[facility] Rx #:[id number] Output: Gastric Drainage 625 Urine 1250 1900 2100 Other 275 Other: Voiding Method Indwelling Catheter - Labs CBC & Chem 7: 08/17/22 05:48 08/17/22 05:48 Labs: Abnormal Lab Results - Last 24 Hours (Table) 08/14/22 08/16/22 08/17/22 Range/Units 08:35 17:50 00:13 RBC (4.30-5.90) m/uL Hgb (13.0-17.5) gm/dL Hct (39.0-53.0) % Carbon Dioxide (22-30) mmol/L BUN (9-20) mg/dL Glucose (74-99) mg/dL POC Glucose (mg/dL) 162 H 129 H (70-110) mg/dL Calcium (8.4-10.2) mg/dL Total Protein (6.3-8.2) g/dL Albumin (3.5-5.0) g/dL RBC Folate 921 H (280 - 791) ng/mL 08/17/22 08/17/22 08/17/22 Range/Units 05:48 05:48 05:58 RBC 2.67 L (4.30-5.90) m/uL Hgb 8.1 L (13.0-17.5) gm/dL Hct 25.4 L (39.0-53.0) % Carbon Dioxide 39 H (22-30) mmol/L BUN 31 H (9-20) mg/dL Glucose 141 H (74-99) mg/dL POC Glucose (mg/dL) 155 H (70-110) mg/dL Calcium 8.1 L (8.4-10.2) mg/dL Total Protein 4.6 L (6.3-8.2) g/dL Albumin 2.5 L (3.5-5.0) g/dL RBC Folate (280 - 791) ng/mL 08/17/22 Range/Units 12:10 RBC (4.30-5.90) m/uL Hgb (13.0-17.5) gm/dL Hct (39.0-53.0) % Carbon Dioxide (22-30) mmol/L BUN (9-20) mg/dL Glucose (74-99) mg/dL POC Glucose (mg/dL) 161 H (70-110) mg/dL Calcium (8.4-10.2) mg/dL Total Protein (6.3-8.2) g/dL Albumin (3.5-5.0) g/dL RBC Folate (280 - 791) ng/mL
[2022-08-17] MEDS ORDERED: SODIUM FERRIC GLUCONAT-SUCROSE 125 MG in SODIUM CHLORIDE 0.9% 100 ML IVPB ONE (15:30)
[2022-08-17 19:07] LABS: Glucose,Whole Blood 138 mg/dL (70-110)
[2022-08-18] MEDS: PIPERACILLIN-TAZOBACTAM 3.375 GM in SODIUM CHLORIDE 0.9% 100 ML IVPB SCH ×2 (06:04→16:59)
[2022-08-18] MEDS: LACTATED RINGERS 1,000 ML IV SCH (06:05)
[2022-08-18 06:08] LABS: Glucose,Whole Blood 138 mg/dL (70-110)
[2022-08-18 07:33] LABS: ALT 36 U/L (4-49); AST 36 U/L (17-59); African American GFR (CKD) 73 (>60 ml/min/1.73 sqM); Albumin 2.7 g/dL (3.5-5.0); Albumin/Globulin Ratio 1.2; Alkaline Phosphatase 61 U/L (38-126); Anion Gap 4 mmol/L; Blood Urea Nitrogen 32 mg/dL (9-20); Calcium 8.2 mg/dL (8.4-10.2); Carbon Dioxide 34 mmol/L (22-30); Chloride 99 mmol/L (98-107); Globulin 2.3 g/dL; Glucose 126 mg/dL (74-99); Non-African American GFR(CKD) 63 (>60 ml/min/1.73 sqM); Phosphorus 3.2 mg/dL (2.5-4.5); Potassium 3.7 mmol/L (3.5-5.1); Sodium 137 mmol/L (137-145); Total Bilirubin 0.6 mg/dL (0.2-1.3)
[2022-08-18] MEDS: HYDROmorphone 0.5 MG/0.5 ML SYRINGE IVP PRN ×3 (07:58→20:40)
[2022-08-18] MEDS: PANTOPRAZOLE 40 MG/10 ML VIAL IV SCH (07:59)
[2022-08-18] MEDS: HYDROCORTISONE SUCCINATE 100 MG/2 ML VIAL IV SCH (07:59)
[2022-08-18] MEDS: FUROSEMIDE 10 MG/ML 2 ML VIAL IV SCH ×2 (08:00→20:39)
[2022-08-18] MEDS: ENOXAPARIN 40 MG/0.4 ML SYRINGE SQ SCH (08:01)
[2022-08-18] MEDS: FORMOTEROL FUMARATE 20 MCG/2 ML NEBU INHALATION SCH ×2 (08:11→20:07)
[2022-08-18] MEDS: BUDESONIDE 1 MG/2 ML NEBU INHALATION SCH ×2 (08:11→20:07)
[2022-08-18] MEDS: IPRATROPIUM-ALBUTEROL 3 ML NEB INHALATION SCH ×4 (08:12→20:07)
--- NOTE | 2022-08-18 10:17 | CDI ---
Documentation Clarification Form Date: 08/18/2022 09:16:54 AM From: Anusha Rhodes RN, CCDS Admit Date: 07/29/2022 09:35:00 AM Patient Name: Martell Steven Visit Number: [id number] Discharge Date: ATTENTION: The Clinical Documentation Specialists (CDI) and [facility] Coding Staff appreciate your assistance in clarifying documentation. Please respond to the clarification below the line at the bottom and electronically sign. The CDI & [facility] Coding staff will review the response and follow-up if needed. Please note: Queries are made part of the Legal Health Record. If you have any questions, please contact the author of this message via ITS. Dr. Reynold Moyer Postoperative ileus is documented in the attending progress notes beginning on 08/08/22 and patient had sigmoid colectomy with end colostomy on 08/01/22. Additional clarification is requested regarding the relationship, if any, that exists between the diagnosis and the procedure. Patients Admitting Diagnosis: Perforated diverticulitis Post-Operative Diagnosis: Perforated diverticulitis with abscess Procedure performed: Sigmoid colectomy with end colostomy History/Risk Factors: Sigmoid diverticulitis, COPD, GERD Clinical Indicators: 72-year-old male present to ED with complaints of abdominal pain with nausea and mild emesis for more than 2 days. 08/09 VS: 121/70 82 16 98.1 94% 3/L NC 07/29 CT Abd/pelvis: 1) Positive for acute sigmoid diverticulitis, complicated by perforation and pockets of free intraperitoneal air measuring up to 5.5 cm. 2) Secondary small bowel ileus. 07/30 Internal Med progress note: CT abdomen and pelvis completed, and radiology report reviewed, exam positive for acute sigmoid diverticulitis complicated by perforation and pockets of free intraperitoneal air measuring up to 5.5 cm accompanied by trace lower abdominal ascites, secondary small bowel ileus small to moderate sized hiatal hernia, 08/09 KUB: Diffusely dilated small bowel loops measuring up to 4.5 cm suggesting postoperative ileus. Treatment: ICU/Telemetry monitoring NGT LIS, Monitor I/O, NPO IV NS@130 HR 07/29 Zosyn 3.375 GM IVPB Q 8 HRS 07/29-08/18 What relationship, if any, exists between the diagnosis of postop ileus and the procedure? [ ] Postop Ileus is a complication of surgical procedure. [ ] Postop Ileus is an expected outcome of the surgical procedure. [ xx ] Postop Ileus is related to patients co-morbid condition(s) of __diverticulitis & not a complication of the procedure [ ] Other please specify ____ [ ] Unable to determine (Template Last Revised: May 2020) MTDD
[2022-08-18 10:53] LABS: HCT 27.3 % (39.6-50.0); HGB 8.3 g/dL (13.0-17.0); MCH 29.2 pg (27.0-32.0); MCHC 30.4 g/dL (32.0-37.0); MCV 96.1 fL (80.0-97.0); Mean Platelet Volume 9.4 fL (9.5-12.2); NRBC Per 100 WBC 0.5 /100 WBCS (0.0-0.0); Platelet Count 371 X 10*3/uL (140-440); RBC 2.84 X 10*6/uL (4.40-5.60); RDW 14.7 % (11.5-14.5)
[2022-08-18 11:47] LABS: Glucose,Whole Blood 167 mg/dL (70-110)
--- NOTE | 2022-08-18 14:23 | P.PN ---
Subjective Progress Note Date: 08/18/22 Principal diagnosis: Perforated diverticulitis and peritonitis Patient is a 72-year-old male presenting to the hospital abdominal pain has been diagnosed with acute diverticulitis with perforation treated medically did not have improvement subsequently was taken to the OR on 08/02/2022 and the patient is status post laparotomy; colectomy and diverting colostomy. On today's evaluation that is 08/18/2022, the patient denies any fever or any chills, patient is breathing comfortably on 3L nasal cannula oxygen, patient denies having any nausea or vomiting, the patient mentioned that he is coming out this afternoon, the patient abdominal pain is currently controlled no chest pain or shortness with occasional cough Objective - Vital Signs Vital signs: Vital Signs Temp 98.2 F 08/18/22 08:00 Pulse 96 08/18/22 11:28 Resp 16 08/18/22 08:00 BP 99/50 08/18/22 08:00 Pulse Ox 94 L 08/18/22 08:14 FiO2 35 08/03/22 12:00 Intake & Output 08/17/22 08/18/22 08/18/22 18:59 06:59 18:59 Intake Total 1008 Output Total 3375 1400 Balance -3375 -392 Weight 73.4 kg Intake: Intake, IV Titration 1008 Amount Sodium Phosphate 15 mmol 1008 Sodium Chloride 4Meq/ml Vial 30 meq Potassium Chloride 40 meq Magnesium Sulfate gm 0.75 gm Calcium Gluconate 1 gm In Amino Acids 5 %/Dextrose 20 % 1,000 ml @ 80 mls/ hr IV .BY DURATION [facility] Rx #:[id number] Output: Gastric Drainage 200 Urine 2900 1400 Other 275 Other: Voiding Method Indwelling Catheter Indwelling Catheter Indwelling Catheter # Bowel Movements 1 - Exam GENERAL DESCRIPTION: An elderly male lying in bed in no distress RESPIRATORY SYSTEM: Unlabored breathing , decreased breath sounds at bases HEART: S1 S2 regular rate and rhythm , ABDOMEN: Soft , no tenderness EXTREMITIES: Did have extensive bruising to the upper extremity especially the l eft arm - Labs CBC & Chem 7: 08/18/22 06:49 08/18/22 06:49 Labs: Abnormal Lab Results - Last 24 Hours (Table) 08/17/22 08/18/22 08/18/22 Range/Units 19:05 06:07 06:49 RBC 2.84 L (4.40-5.60) X 10*6/uL Hgb 8.3 L (13.0-17.0) g/dL Hct 27.3 L (39.6-50.0) % MCHC 30.4 L (32.0-37.0) g/dL RDW 14.7 H (11.5-14.5) % MPV 9.4 L (9.5-12.2) fL Absolute Nucleated RBC 0.03 H (0.00-0.00) X 10*3/uL NRBC/100 WBC Diff 0.5 H (0.0-0.0) /100 WBCS Carbon Dioxide (22-30) mmol/L BUN (9-20) mg/dL Glucose (74-99) mg/dL POC Glucose (mg/dL) 138 H 138 H (70-110) mg/dL Calcium (8.4-10.2) mg/dL Total Protein (6.3-8.2) g/dL Albumin (3.5-5.0) g/dL 08/18/22 08/18/22 Range/Units 06:49 11:46 RBC (4.40-5.60) X 10*6/uL Hgb (13.0-17.0) g/dL Hct (39.6-50.0) % MCHC (32.0-37.0) g/dL RDW (11.5-14.5) % MPV (9.5-12.2) fL Absolute Nucleated RBC (0.00-0.00) X 10*3/uL NRBC/100 WBC Diff (0.0-0.0) /100 WBCS Carbon Dioxide 34 H (22-30) mmol/L BUN 32 H (9-20) mg/dL Glucose 126 H (74-99) mg/dL POC Glucose (mg/dL) 167 H (70-110) mg/dL Calcium 8.2 L (8.4-10.2) mg/dL Total Protein 5.0 L (6.3-8.2) g/dL Albumin 2.7 L (3.5-5.0) g/dL Assessment and Plan (1) Diverticulitis of colon with perforation Current Visit: Yes Status: Acute Code(s): K57.20 - DVTRCLI OF LG INT W PERFORATION AND ABSCESS W/O BLEEDING SNOMED Code(s): 27487933 Plan: 1patient was in the hospital with abdominal pain has been diagnosed with a complicated diverticulitis failing medical therapy and the patient subsequently status post laparotomy sigmoid colectomy and diverting colostomy with concern for secondary peritonitis from perforated sigmoid diverticulitis and need to cover for enteric gram-negative both aerobes and anaerobes 2-patient abdominal cultures grew group B strep and anaerobic gram-negative bacilli 3-the patient remains to be afebrile white count has been normal , CT of abdominal pelvis did shows evidence of high-grade distal small bowel obstruction and is being monitor manage medically, with a repeat CAT scan completed on 08/16/2022 did show some improvement in the area as 4-the patient is slowly clinically improving and the patient will continue Zosyn and monitor clinical course closely Time with Patient: Less than 30
--- NOTE | 2022-08-18 15:39 | P.PN ---
Subjective Progress Note Date: 08/18/22 CHIEF COMPLAINT: Perforated diverticulitis HISTORY OF PRESENT ILLNESS: Patient is status post sigmoid colectomy with end colostomy for perforated diverticulitis with abscess on 08/02/22. Patient reports that his abdominal pain is improving. He has had less output through the NG tube. He reports his pain is down to a 2 out of 10. His abdomen is softer. Ostomy is functioning with both stool and air. Afebrile. WBC 6.2 hemoglobin 8.3 Patient seen and examined with Dr. meadows PHYSICAL EXAM: VITAL SIGNS: Reviewed. GENERAL: Well-developed in no acute distress. ABDOMEN: Softer. Decreased abdominal distention. Increased output through ostomy with stool and air. Incision clean dry and intact with abdominal wound with gauze packing NEUROLOGIC: Alert and oriented. Cranial nerves II through XII grossly intact. ASSESSMENT: 1. Ileus resolving 2. Perforated diverticulitis with abscess status post sigmoid colectomy with end colostomy 3. History of COPD PLAN: -Discontinue NG tube -Start sips of clears -Continue pain management -Continue antibiotics -Continue local wound care -Encouraged patient to increase activity level -DVT prophylaxis Lovenox Physician Director Of Midwifery/Staff Midwife note has been reviewed by physician. Signing provider agrees with the documented findings, assessment, and plan of care. Objective - Vital Signs Vital signs: Vital Signs Temp 98.1 F 08/18/22 13:58 Pulse 98 08/18/22 13:58 Resp 15 08/18/22 13:58 BP 101/58 08/18/22 13:58 Pulse Ox 100 08/18/22 13:58 FiO2 35 08/03/22 12:00 Intake & Output 08/17/22 08/18/22 08/18/22 18:59 06:59 18:59 Intake Total 1008 Output Total 3375 1400 Balance -3375 -392 Weight 73.4 kg Intake: Intake, IV Titration 1008 Amount Sodium Phosphate 15 mmol 1008 Sodium Chloride 4Meq/ml Vial 30 meq Potassium Chloride 40 meq Magnesium Sulfate gm 0.75 gm Calcium Gluconate 1 gm In Amino Acids 5 %/Dextrose 20 % 1,000 ml @ 80 mls/ hr IV .BY DURATION [facility] Rx #:[id number] Output: Gastric Drainage 200 Urine 2900 1400 Other 275 Other: Voiding Method Indwelling Catheter Indwelling Catheter Indwelling Catheter # Bowel Movements 1 - Labs CBC & Chem 7: 06/01/23 06:49 08/18/22 06:49 Labs: Abnormal Lab Results - Last 24 Hours (Table) 08/17/22 08/18/22 08/18/22 Range/Units 19:05 06:07 06:49 RBC 2.84 L (4.40-5.60) X 10*6/uL Hgb 8.3 L (13.0-17.0) g/dL Hct 27.3 L (39.6-50.0) % MCHC 30.4 L (32.0-37.0) g/dL RDW 14.7 H (11.5-14.5) % MPV 9.4 L (9.5-12.2) fL Absolute Nucleated RBC 0.03 H (0.00-0.00) X 10*3/uL NRBC/100 WBC Diff 0.5 H (0.0-0.0) /100 WBCS Carbon Dioxide (22-30) mmol/L BUN (9-20) mg/dL Glucose (74-99) mg/dL POC Glucose (mg/dL) 138 H 138 H (70-110) mg/dL Calcium (8.4-10.2) mg/dL Total Protein (6.3-8.2) g/dL Albumin (3.5-5.0) g/dL 08/18/22 08/18/22 Range/Units 06:49 11:46 RBC (4.40-5.60) X 10*6/uL Hgb (13.0-17.0) g/dL Hct (39.6-50.0) % MCHC (32.0-37.0) g/dL RDW (11.5-14.5) % MPV (9.5-12.2) fL Absolute Nucleated RBC (0.00-0.00) X 10*3/uL NRBC/100 WBC Diff (0.0-0.0) /100 WBCS Carbon Dioxide 34 H (22-30) mmol/L BUN 32 H (9-20) mg/dL Glucose 126 H (74-99) mg/dL POC Glucose (mg/dL) 167 H (70-110) mg/dL Calcium 8.2 L (8.4-10.2) mg/dL Total Protein 5.0 L (6.3-8.2) g/dL Albumin 2.7 L (3.5-5.0) g/dL
--- NOTE | 2022-08-18 15:49 | P.PN ---
Subjective Progress Note Date: 08/18/22 On today's evaluation of 08/16/2022, the patient remains nothing by mouth and receiving for nutritional support. The patient has been unremarkable with of his colostomy bag in the upper from the injuries quite active. As such, and ongoing bowel complications this obstruction is suspected. The patient had a complicated diverticulitis. The patient initially presented to us more than 2 weeks ago and the patient had an acute sigmoid diverticulitis and a complicated diverticulitis with perforation and he had pockets of free intraperitoneal air measuring up to 5.5 cm in size. The patient was taken to the operating room and he underwent a sigmoid colectomy and end colostomy on 08/02/2022. Intra-ab dominal cultures are positive for anaerobic gram-negative bacillus and strep group B. A repeat CAT scan of the abdomen was done and it showed a high-grade distal small bowel obstruction with transition point identified and this was present to be related to adhesions. The patient is being admitted to going for another surgical expiration with the next 24 hours. Note is currently at 5.8 with a hemoglobin of 7. and a platelet count of 333. He has a 31 with a creatinine of 1 and a sodium levels of 140 with a potassium level of 3.7. The patient is on DuoNeb about treatments [id number], the patient is on Lovenox 40 mg subcu for DVT prophylaxis. The patient on TPN and the patient remains on IV Zosyn. ID is on the case. Surgery is also on the case. Note that a repeat CAT scan of the abdomen that was done today showed dilated loops of small bowel which have somewhat improved interval and measuring up to 2.4 cm however there was ongoing nondistended nonopacified loops of small bowel within the right hemiabdomen and persistent transition zone noted within the upper pelvis could be related to a partial obstruction versus an ileus. On today's evaluation of 08/17/2022, the patient is awake and alert and communicating. NG tube is still in place. The results of the CAT scan of the abdomen from yesterday was noted. The patient has improved up with his colostomy bag and we are awaiting further surgical input whether the patient will need another expiratory laparotomy. Otherwise, the patient is receiving TPN for nutritional support. His white cell count is at 5 with a hemoglobin of 8.1 from today and the patient has a BUN of 31 with creatinine 1.2 and a sodium level of 140. Electrolytes are within normal limits. The patient is on DuoNeb updrafts. The patient on Lovenox for DVT prophylaxis. The patient is on Perforomist and Pulmicort updrafts twice a day. The patient is still receiving TPN and IV Zosyn. Abdomen is nontender. On 08/18/2022, the patient is doing well. NG tube is in clamped. Output from the antecubital minimal. He is having improved output from his colostomy bag. No fever or chills. No leukocytosis. Remains on TPN for nutritional support. Surgical wound is dry and clean and intact. The WBC count at 6.2 with a hemoglobin of 8.3 and the patient is a BUN of 32 with a creatinine of 1.1 and a sodium level of 137. The plan is to discontinue the NG tube and allow the patient some sips of clear liquid on today's evaluation. Objective - Vital Signs Vital signs: Vital Signs Temp 98.1 F 08/17/22 19:42 Pulse 96 08/18/22 11:28 Resp 20 08/18/22 07:30 BP 100/54 08/18/22 04:00 Pulse Ox 94 L 08/18/22 08:14 FiO2 35 08/03/22 12:00 Intake & Output 08/17/22 08/18/22 08/18/22 18:59 06:59 18:59 Intake Total 1008 Output Total 3375 1400 Balance -9100 -392 Intake: Intake, IV Titration 1008 Amount Sodium Phosphate 15 mmol 1008 Sodium Chloride 4Meq/ml Vial 30 meq Potassium Chloride 40 meq Magnesium Sulfate gm 0.75 gm Calcium Gluconate 1 gm In Amino Acids 5 %/Dextrose 20 % 1,000 ml @ 80 mls/ hr IV .BY [facility] Rx #:[id number] Output: Gastric Drainage 200 Urine 2900 1400 Other 275 Other: Voiding Method Indwelling Catheter Indwelling Catheter Indwelling Catheter # Bowel Movements 1 - Exam GENERAL EXAM: Alert, pleasant 72-year-old male, on 3 L nasal cannula, currently with nausea. HEAD: Normocephalic. EYES: Normal reaction of pupils, equal size. NOSE: Nasogastric tube currently in place. Clear with pink turbinates. THROAT: No erythema or exudates. NECK: No masses, no JVD. CHEST: No chest wall deformity. LUNGS: Equal air entry with bilateral end expiratory wheeze, diminished. CVS: S1 and S2 normal with no audible murmur, regular rhythm. ABDOMEN: Postsurgical changes. Ostomy intact. Functioning with minimal stool. SPINE: No scoliosis or deformity SKIN: No rashes CENTRAL NERVOUS SYSTEM: No focal deficits, tone is normal in all 4 extremities. EXTREMITIES: There is no peripheral edema. No clubbing, no cyanosis. Peripheral pulses are intact. - Labs CBC & Chem 7: 08/18/22 06:49 08/18/22 06:49 Labs: Abnormal Lab Results - Last 24 Hours (Table) 08/17/22 08/17/22 08/18/22 Range/Units 12:10 19:05 06:07 RBC (4.40-5.60) X 10*6/uL Hgb (13.0-17.0) g/dL Hct (39.6-50.0) % MCHC (32.0-37.0) g/dL RDW (11.5-14.5) % MPV (9.5-12.2) fL Absolute Nucleated RBC (0.00-0.00) X 10*3/uL NRBC/100 WBC Diff (0.0-0.0) /100 WBCS Carbon Dioxide (22-30) mmol/L BUN (9-20) mg/dL Glucose (74-99) mg/dL POC Glucose (mg/dL) 161 H 138 H 138 H (70-110) mg/dL Calcium (8.4-10.2) mg/dL Total Protein (6.3-8.2) g/dL Albumin (3.5-5.0) g/dL 08/18/22 08/18/22 Range/Units 06:49 06:49 RBC 2.84 L (4.40-5.60) X 10*6/uL Hgb 8.3 L (13.0-17.0) g/dL Hct 27.3 L (39.6-50.0) % MCHC 30.4 L (32.0-37.0) g/dL RDW 14.7 H (11.5-14.5) % MPV 9.4 L (9.5-12.2) fL Absolute Nucleated RBC 0.03 H (0.00-0.00) X 10*3/uL NRBC/100 WBC Diff 0.5 H (0.0-0.0) /100 WBCS Carbon Dioxide 34 H (22-30) mmol/L BUN 32 H (9-20) mg/dL Glucose 126 H (74-99) mg/dL POC Glucose (mg/dL) (70-110) mg/dL Calcium 8.2 L (8.4-10.2) mg/dL Total Protein 5.0 L (6.3-8.2) g/dL Albumin 2.7 L (3.5-5.0) g/dL Assessment and Plan Plan: Acute perforated sigmoid diverticulitis with abscess, status post sigmoid colectomy and end colostomy on 08/02/2022. Nasogastric tube removed. Abdominal x-ray revealed diffusely dilated small bowel loops measuring up to 4.5 cm suggesting postoperative ileus. There is liquid stool and gas in the ostomy. On 08/12/2022 seconds issues with nausea and vomiting. Still with some nausea and vomiting 08/13/2022. Computed tomography scan confirmed a high-grade distal small bowel obstruction with transition point identified presumed related to adhesions. Interval partial colectomy and colostomy changes noted. Nasogastric tube was reinserted. A repeat CAT scan of the abdomen on 08/16/2022 showed persistent transition zone in the upper pelvis could be related to partial obstruction versus ileus. There was also dilated small loops of small bowel improved compared to the earlier CAT scan of the abdomen and pelvis that was done on 08/13/2022. The patient has a functioning colostomy and output is improving. The NG tube is in clamped this morning. History of diverticulosis Recent hospitalization for an acute COPD exacerbation back in June 2022, treat ed and the patient has recovered Advanced COPD with an FEV1 of 26% of predicted, the patient is chronically oxygen and steroid dependent taking prednisone 10 mg by mouth daily. The patient is currently on hydrocortisone IV 25 mg daily basis. Ex-smoker and the patient quit smoking 2 years ago Chronic hypoxic respiratory failure maintained on O2 at 2 L nasal cannula Prostate cancer Acid reflux Plan: A Surgical intervention this point in time NG tube was clamped Will likely remove the NG tube today Lungs clear liquid diet CAT scan from yesterday was noted and the patient is improved or partial improvement in the dilatation of the small bowel and the patient is showing some increase operative the colostomy bag. Continue IV Zosyn Continue TPN Continue the current treatment plan We will continue to follow along well
[2022-08-18 17:39] LABS: Glucose,Whole Blood 141 mg/dL (70-110)
--- NOTE | 2022-08-18 18:08 | P.PN ---
Subjective Progress Note Date: 08/18/22 Hospital course: Patient is a very pleasant 72-year-old male with COPD home oxygen dependent on 3 L at all times, diverticulosis and GERD. He presented to the ER on 07/29/22 with complaints of abdominal pain and underwent full evaluation. CT abdomen and pelvis showed acute sigmoid diverticulitis complicated by perforation with pockets of free intraperitoneal air measuring up to 5.5 cm accompanied by trace lower abdominal ascites, secondary small bowel ileus, moderate sized hiatal hernia, mild circumferential distal esophageal wall thickening, and prostameg lamonte. Patient was admitted to general surgery and we were consulted for medical management. Pt initially treated conservatively and then underwent a sigmoidectomy with end colostomy on 08/02/[address] Moyer and was transported to the ICU where he was extubated on 08/03. NG tube was initially removed on 08/09, however required reinserted on 08/13. Venous Doppler from 08/14-no evidence of upper extremity DVT, PICC line in place Physical exam: Patient seen and examined at bedside. General: non toxic Derm: warm, dry. Postsurgical incision vertically to lower abdomen with dehiscence at distal portion with packing present. Head: atraumatic, normocephalic, symmetric Eyes: EOMI, no lid lag, anicteric sclera Mouth: no lip lesion, mucus membranes moist Cardiovascular: S1S2 reg, no murmur, positive posterior tibial pulse bilateral, Lungs: CTA bilateral, no rhonchi, no rales , no accessory muscle use GI/: soft, nontender to palpation, no guarding, no appreciable organomegaly. Colostomy left lower quadrant with dark colored stool in colostomy bag. NG tube in place with dark green gastric drainage and collecting chamber and tube Ext: no gross muscle atrophy, no edema, no contractures Neuro: CN II-XI grossly intact, no focal neuro deficits Psych: Alert, oriented, appropriate affect Assessment and plan of care: Post op Small Bowel obstruction vs ileus with transition point on CT Acute perforated diverticulitis with abscess and resolving sepsis- Group B strep and anerobic bacilli Status post Sigmoid colectomy with end colostomy completed on 08/02/2032 Anemia, iron deficiency likely with acute blood loss Chronic/Resolved Metabolic alkalosis, resolved Advanced COPD on chronic prednisone, not in exacerbation Chronic hypoxemic respiratory failure on 2 L home O2 -Data/vital sign review: Morning labs reviewed. CBC showing stable normocytic anemia with hemoglobin of 8.3. BMP showing hypercarbia with bicarb of 34 and elevated BUN of 32. Liver enzymes stable. -Complete a 3 day course of IV iron appointments on 08/17/22 -Pulmonary note reviewed: No new recommendations -Infectious disease note reviewed: Continue with Zosyn -Gen. surgery following and discussed plan of care with general surgery PA, recommending discontinuation of NG tube. -Continue Lasix 20 mg IV push every 12 [id number] -Continue with Zosyn 3.375 g IV every 8 hours (day 20) -Protonix 40 mg IV daily - Solucortef 25 mg daily D # 3 -Continue with bronchdilators -Patient continues to require Dilaudid 0.5 mg every 3 hours as needed for pain -Patient is on TPN day #16 - CBC, CMP and magnesium in AM -Continue DVT prophylaxis with Lovenox Thank you for allowing us to participate in the care of this pleasant patient. Do not hesitate to contact us with questions. Someone can be reached from the [facility] hospitalist group all hours of the day at [phone] or via [employer]. Patient was seen independently by Nurse Pracitioner. This document was prepared using [employer] dictation software. Please allow for errors in combo welder, while rare they do occur. I reviewed the documentation as provided by the CELINE above, who is the original author of this note. I agree with the documented assessment and plan, with the following changes: none Objective - Vital Signs Vital signs: Vital Signs Temp 98.1 F 08/17/22 19:42 Pulse 96 08/18/22 08:33 Resp 20 08/18/22 04:00 BP 100/54 08/18/22 04:00 Pulse Ox 94 L 08/18/22 08:14 FiO2 35 08/03/22 12:00 Intake & Output 08/17/22 08/18/22 08/18/22 18:59 06:59 18:59 Intake Total 1008 Output Total 3379 1400 Balance -6654 -854 Intake: Intake, IV Titration 1008 Amount Sodium Phosphate 15 mmol 1008 Sodium Chloride 4Meq/ml Vial 30 meq Potassium Chloride 40 meq Magnesium Sulfate gm 0.75 gm Calcium Gluconate 1 gm In Amino Acids 5 %/Dextrose 20 % 1,000 ml @ 80 mls/ hr IV .BY [facility] Rx #:[id number] Output: Gastric Drainage 200 Urine 2900 1400 Other 275 Other: Voiding Method Indwelling Catheter Indwelling Catheter # Bowel Movements 1 - Labs CBC & Chem 7: 08/18/22 06:49 08/19/22 06:02 Labs: Abnormal Lab Results - Last 24 Hours (Table) 08/17/22 08/17/22 08/18/22 Range/Units 12:10 19:05 06:07 Carbon Dioxide (22-30) mmol/L BUN (9-20) mg/dL Glucose (74-99) mg/dL POC Glucose (mg/dL) 161 H 138 H 138 H (70-110) mg/dL Calcium (8.4-10.2) mg/dL Total Protein (6.3-8.2) g/dL Albumin (3.5-5.0) g/dL 08/18/22 Range/Units 06:49 Carbon Dioxide 34 H (22-30) mmol/L BUN 32 H (9-20) mg/dL Glucose 126 H (74-99) mg/dL POC Glucose (mg/dL) (70-110) mg/dL Calcium 8.2 L (8.4-10.2) mg/dL Total Protein 5.0 L (6.3-8.2) g/dL Albumin 2.7 L (3.5-5.0) g/dL
[2022-08-19 01:35] LABS: Glucose,Whole Blood 141 mg/dL (70-110)
[2022-08-19] MEDS: HYDROmorphone 0.5 MG/0.5 ML SYRINGE IVP PRN ×5 (03:23→22:31)
[2022-08-19 06:54] LABS: Ionized Calcium 4.8 mg/dL (4.5-5.3)
[2022-08-19 07:02] LABS: ALT 39 U/L (4-49); AST 36 U/L (17-59); African American GFR (CKD) 68 (>60 ml/min/1.73 sqM); Albumin 2.7 g/dL (3.5-5.0); Albumin/Globulin Ratio 1.2; Alkaline Phosphatase 69 U/L (38-126); Anion Gap 2 mmol/L; Blood Urea Nitrogen 31 mg/dL (9-20); Calcium 8.2 mg/dL (8.4-10.2); Carbon Dioxide 37 mmol/L (22-30); Chloride 97 mmol/L (98-107); Globulin 2.2 g/dL; Glucose 109 mg/dL (74-99); Non-African American GFR(CKD) 59 (>60 ml/min/1.73 sqM); Phosphorus 3.2 mg/dL (2.5-4.5); Potassium 4.3 mmol/L (3.5-5.1); Sodium 136 mmol/L (137-145); Total Bilirubin 0.5 mg/dL (0.2-1.3); Total Protein 4.9 g/dL (6.3-8.2)
[2022-08-19] MEDS: BUDESONIDE 1 MG/2 ML NEBU INHALATION SCH ×2 (07:21→20:48)
[2022-08-19] MEDS: IPRATROPIUM-ALBUTEROL 3 ML NEB INHALATION SCH ×4 (07:21→20:48)
[2022-08-19] MEDS: FORMOTEROL FUMARATE 20 MCG/2 ML NEBU INHALATION SCH ×2 (07:38→20:48)
[2022-08-19] MEDS: HYDROCORTISONE SUCCINATE 100 MG/2 ML VIAL IV SCH (07:59)
[2022-08-19] MEDS: FUROSEMIDE 10 MG/ML 2 ML VIAL IV SCH ×2 (07:59→22:31)
[2022-08-19] MEDS: ENOXAPARIN 40 MG/0.4 ML SYRINGE SQ SCH (07:59)
[2022-08-19] MEDS: PANTOPRAZOLE 40 MG/10 ML VIAL IV SCH (07:59)
[2022-08-19 11:00] LABS: Glucose,Whole Blood 175 mg/dL (70-110)
[2022-08-19 11:11] LABS: HCT 27.1 % (39.6-50.0); HGB 8.3 g/dL (13.0-17.0); MCH 29.5 pg (27.0-32.0); MCHC 30.6 g/dL (32.0-37.0); MCV 96.4 fL (80.0-97.0); Mean Platelet Volume 9.2 fL (9.5-12.2); NRBC Per 100 WBC 0.4 /100 WBCS (0.0-0.0); Platelet Count 355 X 10*3/uL (140-440); RBC 2.81 X 10*6/uL (4.40-5.60); RDW 14.9 % (11.5-14.5); WBC 6.77 X 10*3/uL (4.50-10.00)
--- NOTE | 2022-08-19 13:41 | P.PN ---
Subjective Progress Note Date: 08/19/22 CHIEF COMPLAINT: Perforated diverticulitis HISTORY OF PRESENT ILLNESS: Patient is status post sigmoid colectomy with end colostomy for perforated diverticulitis with abscess on 08/02/22. Patient continues to feel better each day. His ostomy is functioning. NG tube was discontinued yesterday. He is tolerating the clear liquid diet. Pain control. Afebrile. WBC is 6.77 Hgb 8.3 platelets 355 sodium 136 potassium 4.3 creatinine 1.23 Patient seen and examined with Dr. meadows PHYSICAL EXAM: VITAL SIGNS: Reviewed. GENERAL: Well-developed in no acute distress. ABDOMEN: Soft. ostomy functioning with stool and air. Incision clean dry and intact with abdominal wound with gauze packing NEUROLOGIC: Alert and oriented. Cranial nerves II through XII grossly intact. ASSESSMENT: 1. Ileus resolved 2. Perforated diverticulitis with abscess status post sigmoid colectomy with end colostomy 3. History of COPD PLAN: -Advance diet to full liquids -Continue pain management -Continue antibiotics -Continue local wound care -Encouraged patient to increase activity level -DVT prophylaxis Lovenox Physician Release Of Information Clerk note has been reviewed by physician. Signing provider agrees with the documented findings, assessment, and plan of care. Objective - Vital Signs Vital signs: Vital Signs Temp 98.4 F 08/19/22 07:11 Pulse 92 08/19/22 07:43 Resp 18 08/19/22 07:11 BP 114/73 08/19/22 07:11 Pulse Ox 97 08/19/22 07:11 FiO2 35 08/03/22 12:00 Intake & Output 08/18/22 08/19/22 08/19/22 18:59 06:59 18:59 Output Total 800 1900 Balance -800 -1900 Weight 73.4 kg Output: Urine 800 1900 Other: Voiding Method Indwelling Catheter Indwelling Catheter - Labs CBC & Chem 7: 08/19/22 06:02 08/19/22 06:02 Labs: Abnormal Lab Results - Last 24 Hours (Table) 08/18/22 08/18/22 08/18/22 Range/Units 06:49 11:46 17:38 RBC 2.84 L (4.40-5.60) X 10*6/uL Hgb 8.3 L (13.0-17.0) g/dL Hct 27.3 L (39.6-50.0) % MCHC 30.4 L (32.0-37.0) g/dL RDW 14.7 H (11.5-14.5) % MPV 9.4 L (9.5-12.2) fL Absolute Nucleated RBC 0.03 H (0.00-0.00) X 10*3/uL NRBC/100 WBC Diff 0.5 H (0.0-0.0) /100 WBCS Sodium (137-145) mmol/L Chloride (98-107) mmol/L Carbon Dioxide (22-30) mmol/L BUN (9-20) mg/dL Glucose (74-99) mg/dL POC Glucose (mg/dL) 167 H 141 H (70-110) mg/dL Calcium (8.4-10.2) mg/dL Total Protein (6.3-8.2) g/dL Albumin (3.5-5.0) g/dL 08/19/22 08/19/22 Range/Units 01:32 06:02 RBC (4.40-5.60) X 10*6/uL Hgb (13.0-17.0) g/dL Hct (39.6-50.0) % MCHC (32.0-37.0) g/dL RDW (11.5-14.5) % MPV (9.5-12.2) fL Absolute Nucleated RBC (0.00-0.00) X 10*3/uL NRBC/100 WBC Diff (0.0-0.0) /100 WBCS Sodium 136 L (137-145) mmol/L Chloride 97 L (98-107) mmol/L Carbon Dioxide 37 H (22-30) mmol/L BUN 31 H (9-20) mg/dL Glucose 109 H (74-99) mg/dL POC Glucose (mg/dL) 141 H (70-110) mg/dL Calcium 8.2 L (8.4-10.2) mg/dL Total Protein 4.9 L (6.3-8.2) g/dL Albumin 2.7 L (3.5-5.0) g/dL
--- NOTE | 2022-08-19 14:17 | P.PN ---
Subjective Progress Note Date: 08/19/22 On today's evaluation of 08/16/2022, the patient remains nothing by mouth and receiving for nutritional support. The patient has been unremarkable with of his colostomy bag in the upper from the injuries quite active. As such, and ongoing bowel complications this obstruction is suspected. The patient had a complicated diverticulitis. The patient initially presented to us more than 2 weeks ago and the patient had an acute sigmoid diverticulitis and a complicated diverticulitis with perforation and he had pockets of free intraperitoneal air measuring up to 5.5 cm in size. The patient was taken to the operating room and he underwent a sigmoid colectomy and end colostomy on 08/02/2022. Intra-ab dominal cultures are positive for anaerobic gram-negative bacillus and strep group B. A repeat CAT scan of the abdomen was done and it showed a high-grade distal small bowel obstruction with transition point identified and this was present to be related to adhesions. The patient is being admitted to going for another surgical expiration with the next 24 hours. Note is currently at 5.8 with a hemoglobin of 7. and a platelet count of 333. He has a 31 with a creatinine of 1 and a sodium levels of 140 with a potassium level of 3.7. The patient is on DuoNeb about treatments [id number], the patient is on Lovenox 40 mg subcu for DVT prophylaxis. The patient on TPN and the patient remains on IV Zosyn. ID is on the case. Surgery is also on the case. Note that a repeat CAT scan of the abdomen that was done today showed dilated loops of small bowel which have somewhat improved interval and measuring up to 2.4 cm however there was ongoing nondistended nonopacified loops of small bowel within the right hemiabdomen and persistent transition zone noted within the upper pelvis could be related to a partial obstruction versus an ileus. On today's evaluation of 08/17/2022, the patient is awake and alert and communicating. NG tube is still in place. The results of the CAT scan of the abdomen from yesterday was noted. The patient has improved up with his colostomy bag and we are awaiting further surgical input whether the patient will need another expiratory laparotomy. Otherwise, the patient is receiving TPN for nutritional support. His white cell count is at 5 with a hemoglobin of 8.1 from today and the patient has a BUN of 31 with creatinine 1.2 and a sodium level of 140. Electrolytes are within normal limits. The patient is on DuoNeb updrafts. The patient on Lovenox for DVT prophylaxis. The patient is on Perforomist and Pulmicort updrafts twice a day. The patient is still receiving TPN and IV Zosyn. Abdomen is nontender. On 08/18/2022, the patient is doing well. NG tube is in clamped. Output from the antecubital minimal. He is having improved output from his colostomy bag. No fever or chills. No leukocytosis. Remains on TPN for nutritional support. Surgical wound is dry and clean and intact. The WBC count at 6.2 with a hemoglobin of 8.3 and the patient is a BUN of 32 with a creatinine of 1.1 and a sodium level of 137. The plan is to discontinue the NG tube and allow the patient some sips of clear liquid on today's evaluation. On 08/19/2022, the patient is stable. NG tube is notable that the patient is taking popsicles and some clear liquids. No significant abdominal pain. No nausea or emesis. Still on TPN for nutritional support. No fever or chills. Still on antibiotics. The patient is white cell count is at 6.7 with a h emoglobin of 8.3. BUN is at 31 with a creatinine of 1.23 and a sodium level is at 136. Glucose of 175. LFTs are normal. Triglyceride levels of 128. Blood sugars mildly elevated covered by sliding scale insulin coverage. Objective - Vital Signs Vital signs: Vital Signs Temp 98.2 F 08/19/22 13:51 Pulse 108 H 08/19/22 13:51 Resp 16 08/19/22 13:51 BP 100/60 08/19/22 13:51 Pulse Ox 98 08/19/22 13:51 FiO2 35 08/03/22 12:00 Intake & Output 08/18/22 08/19/22 08/19/22 18:59 06:59 18:59 Intake Total 1048 Output Total 800 1900 920 Balance -800 -1900 128 Weight 73.4 kg Intake: Intake, IV Titration 1048 Amount Sodium Phosphate 15 mmol 1048 Sodium Chloride 4Meq/ml Vial 30 meq Potassium Chloride 48 meq Magnesium Sulfate gm 0.75 gm Calcium Gluconate 1 gm In Amino Acids 5 %/Dextrose 20 % 1,000 ml @ 80 mls/ hr IV .BY DURATION [facility] Rx #:[id number] Output: Urine 800 1900 920 Uretheral (Art) 920 Other: Voiding Method Indwelling Catheter Indwelling Catheter Indwelling Catheter - Exam GENERAL EXAM: Alert, pleasant 72-year-old male, on 3 L nasal cannula, currently with nausea. The NG tube was removed HEAD: Normocephalic. EYES: Normal reaction of pupils, equal size. NOSE: Nasogastric tube currently in place. Clear with pink turbinates. THROAT: No erythema or exudates. NECK: No masses, no JVD. CHEST: No chest wall deformity. LUNGS: Equal air entry with bilateral end expiratory wheeze, diminished. CVS: S1 and S2 normal with no audible murmur, regular rhythm. ABDOMEN: Postsurgical changes. Ostomy intact. Functioning with minimal stool. The patient has some positive bowel sounds on today's examination. SPINE: No scoliosis or deformity SKIN: No rashes CENTRAL NERVOUS SYSTEM: No focal deficits, tone is normal in all 4 extremities. EXTREMITIES: There is no peripheral edema. No clubbing, no cyanosis. Peripheral pulses are intact. - Labs CBC & Chem 7: 08/19/22 06:02 08/19/22 06:02 Labs: Abnormal Lab Results - Last 24 Hours (Table) 08/18/22 08/19/22 08/19/22 Range/Units 17:38 01:32 06:02 RBC (4.40-5.60) X 10*6/uL Hgb (13.0-17.0) g/dL Hct (39.6-50.0) % MCHC (32.0-37.0) g/dL RDW (11.5-14.5) % MPV (9.5-12.2) fL Absolute Nucleated RBC (0.00-0.00) X 10*3/uL NRBC/100 WBC Diff (0.0-0.0) /100 WBCS Sodium 136 L (137-145) mmol/L Chloride 97 L (98-107) mmol/L Carbon Dioxide 37 H (22-30) mmol/L BUN 31 H (9-20) mg/dL Glucose 109 H (74-99) mg/dL POC Glucose (mg/dL) 141 H 141 H (70-110) mg/dL Calcium 8.2 L (8.4-10.2) mg/dL Total Protein 4.9 L (6.3-8.2) g/dL Albumin 2.7 L (3.5-5.0) g/dL 08/19/22 08/19/22 Range/Units 06:02 10:57 RBC 2.81 L (4.40-5.60) X 10*6/uL Hgb 8.3 L (13.0-17.0) g/dL Hct 27.1 L (39.6-50.0) % MCHC 30.6 L (32.0-37.0) g/dL RDW 14.9 H (11.5-14.5) % MPV 9.2 L (9.5-12.2) fL Absolute Nucleated RBC 0.03 H (0.00-0.00) X 10*3/uL NRBC/100 WBC Diff 0.4 H (0.0-0.0) /100 WBCS Sodium (137-145) mmol/L Chloride (98-107) mmol/L Carbon Dioxide (22-30) mmol/L BUN (9-20) mg/dL Glucose (74-99) mg/dL POC Glucose (mg/dL) 175 H (70-110) mg/dL Calcium (8.4-10.2) mg/dL Total Protein (6.3-8.2) g/dL Albumin (3.5-5.0) g/dL Assessment and Plan Plan: Acute perforated sigmoid diverticulitis with abscess, status post sigmoid colectomy and end colostomy on 08/02/2022. Nasogastric tube removed. Abdominal x-ray revealed diffusely dilated small bowel loops measuring up to 4.5 cm suggesting postoperative ileus. There is liquid stool and gas in the ostomy. On 08/12/2022 seconds issues with nausea and vomiting. Still with some nausea and vomiting 08/13/2022. Computed tomography scan confirmed a high-grade distal small bowel obstruction with transition point identified presumed related to adhesions. Interval partial colectomy and colostomy changes noted. Nasogastric tube was reinserted. A repeat CAT scan of the abdomen on 08/16/2022 showed persistent transition zone in the upper pelvis could be related to partial obstruction versus ileus. There was also dilated small loops of small bowel improved compared to the earlier CAT scan of the abdomen and pelvis that was done on 08/13/2022. The patient has a functioning colostomy and output is improving. The NG tube has been removed and the patient is tolerating clear liquids and popsicles. No nausea. Surgical wound is intact. The patient is still on antibiotics. Ambulating. Art catheter still in place. History of diverticulosis Recent hospitalization for an acute COPD exacerbation back in June 2022, treated and the patient has recovered Advanced COPD with an FEV1 of 26% of predicted, the patient is chronically oxygen and steroid dependent taking prednisone 10 mg by mouth daily. The patient is currently on hydrocortisone IV 25 mg daily basis. Ex-smoker and the patient quit smoking 2 years ago Chronic hypoxic respiratory failure maintained on O2 at 2 L nasal cannula Prostate cancer Acid reflux Plan: Advance diet as tolerated Colostomy is more functional No abdominal distention CAT scan from yesterday was noted and the patient is improved or partial improvement in the dilatation of the small bowel and the patient is showing some increase operative the colostomy bag. Continue IV Zosyn Continue TPN Continue the current treatment plan We will continue to follow along well
--- NOTE | 2022-08-19 15:30 | P.PN ---
Subjective Progress Note Date: 08/19/22 Principal diagnosis: Perforated diverticulitis and peritonitis Patient is a 72-year-old male presenting to the hospital abdominal pain has been diagnosed with acute diverticulitis with perforation treated medically did not have improvement subsequently was taken to the OR on 08/02/2022 and the patient is status post laparotomy; colectomy and diverting colostomy. On today's evaluation that is 08/19/2022, the patient remains to be afebrile, patient is breathing comfortably on 3L nasal cannula oxygen, patient denies having any nausea or vomiting, the patient and she has been discontinued and started on a clear liquid has been tolerating so far no nausea no vomiting abdominal pain had did have output in his colostomy Objective - Vital Signs Vital signs: Vital Signs Temp 98.4 F 08/19/22 07:11 Pulse 93 08/19/22 11:50 Resp 18 08/19/22 08:00 BP 114/73 08/19/22 07:11 Pulse Ox 97 08/19/22 07:11 FiO2 35 08/03/22 12:00 Intake & Output 08/18/22 08/19/22 08/19/22 18:59 06:59 18:59 Intake Total 1048 Output Total 800 1900 920 Balance -800 -1900 128 Weight 73.4 kg Intake: Intake, IV Titration 1048 Amount Sodium Phosphate 15 mmol 1048 Sodium Chloride 4Meq/ml Vial 30 meq Potassium Chloride 48 meq Magnesium Sulfate gm 0.75 gm Calcium Gluconate 1 gm In Amino Acids 5 %/Dextrose 20 % 1,000 ml @ 80 mls/ hr IV .BY DURATION [facility] Rx #:[id number] Output: Urine 800 1900 920 Uretheral (Art) 920 Other: Voiding Method Indwelling Catheter Indwelling Catheter Indwelling Catheter - Exam GENERAL DESCRIPTION: An elderly male lying in bed in no distress RESPIRATORY SYSTEM: Unlabored breathing , decreased breath sounds at bases HEART: S1 S2 regular rate and rhythm , ABDOMEN: Soft , no tenderness EXTREMITIES: Did have extensive bruising to the upper extremity especially the left arm - Labs CBC & Chem 7: 08/19/22 06:02 08/19/22 06:02 Labs: Abnormal Lab Results - Last 24 Hours (Table) 08/18/22 08/19/22 08/19/22 Range/Units 17:38 01:32 06:02 RBC (4.40-5.60) X 10*6/uL Hgb (13.0-17.0) g/dL Hct (39.6-50.0) % MCHC (32.0-37.0) g/dL RDW (11.5-14.5) % MPV (9.5-12.2) fL Absolute Nucleated RBC (0.00-0.00) X 10*3/uL NRBC/100 WBC Diff (0.0-0.0) /100 WBCS Sodium 136 L (137-145) mmol/L Chloride 97 L (98-107) mmol/L Carbon Dioxide 37 H (22-30) mmol/L BUN 31 H (9-20) mg/dL Glucose 109 H (74-99) mg/dL POC Glucose (mg/dL) 141 H 141 H (70-110) mg/dL Calcium 8.2 L (8.4-10.2) mg/dL Total Protein 4.9 L (6.3-8.2) g/dL Albumin 2.7 L (3.5-5.0) g/dL 08/19/22 08/19/22 Range/Units 06:02 10:57 RBC 2.81 L (4.40-5.60) X 10*6/uL Hgb 8.3 L (13.0-17.0) g/dL Hct 27.1 L (39.6-50.0) % MCHC 30.6 L (32.0-37.0) g/dL RDW 14.9 H (11.5-14.5) % MPV 9.2 L (9.5-12.2) fL Absolute Nucleated RBC 0.03 H (0.00-0.00) X 10*3/uL NRBC/100 WBC Diff 0.4 H (0.0-0.0) /100 WBCS Sodium (137-145) mmol/L Chloride (98-107) mmol/L Carbon Dioxide (22-30) mmol/L BUN (9-20) mg/dL Glucose (74-99) mg/dL POC Glucose (mg/dL) 175 H (70-110) mg/dL Calcium (8.4-10.2) mg/dL Total Protein (6.3-8.2) g/dL Albumin (3.5-5.0) g/dL Assessment and Plan (1) Diverticulitis of colon with perforation Current Visit: Yes Status: Acute Code(s): K57.20 - DVTRCLI OF LG INT W PERFORATION AND ABSCESS W/O BLEEDING SNOMED Code(s): 31835963 Plan: 1patient was in the hospital with abdominal pain has been diagnosed with a complicated diverticulitis failing medical therapy and the patient subsequently status post laparotomy sigmoid colectomy and diverting colostomy with concern for secondary peritonitis from perforated sigmoid diverticulitis and need to cover for enteric gram-negative both aerobes and anaerobes 2-patient abdominal cultures grew group B strep and anaerobic gram-negative b acilli 3-the patient remains to be afebrile white count has been normal , CT of abdominal pelvis did shows evidence of high-grade distal small bowel obstruction and is being monitor manage medically, with a repeat CAT scan completed on 08/16/2022 did show some improvement in the area as 4-the patient has shown clinical improvement and has received adequate antibiotic therapy in the form of Zosyn which has been discontinued and we'll monitor the patient closely off antibiotic at this point Time with Patient: Less than 30
--- NOTE | 2022-08-19 15:43 | P.PN ---
Subjective Progress Note Date: 08/19/22 Hospital course: Patient is a very pleasant 72-year-old male with COPD home oxygen dependent on 3 L at all times, diverticulosis and GERD. He presented to the ER on 07/29/22 with complaints of abdominal pain and underwent full evaluation. CT abdomen and pelvis showed acute sigmoid diverticulitis complicated by perforation with pockets of free intraperitoneal air measuring up to 5.5 cm accompanied by trace lower abdominal ascites, secondary small bowel ileus, moderate sized hiatal hernia, mild circumferential distal esophageal wall thickening, and prostameg lamonte. Patient was admitted to general surgery and we were consulted for medical management. Pt initially treated conservatively and then underwent a sigmoidectomy with end colostomy on 08/02/[address] Moyer and was transported to the ICU where he was extubated on 08/03. NG tube was initially removed on 08/09, however required reinserted on 08/13. Venous Doppler from 08/14-no evidence of upper extremity DVT, PICC line in place. Physical exam: Patient seen and examined at bedside. Patient appears much better this morning. NG tube was removed yesterday afternoon. Patient completed 20 day course of IV antibiotics with Zosyn with last dose received 08/18/22. General: non toxic Derm: warm, dry. Postsurgical incision vertically to lower abdomen with dehiscence at distal portion with packing present. Head: atraumatic, normocephalic, symmetric Eyes: EOMI, no lid lag, anicteric sclera Mouth: no lip lesion, mucus membranes moist Cardiovascular: S1S2 reg, no murmur, positive posterior tibial pulse bilateral, Lungs: CTA bilateral, no rhonchi, no rales , no accessory muscle use GI/: soft, nontender to palpation, no guarding, no appreciable organomegaly. Colostomy left lower quadrant with dark colored stool in colostomy bag. NG tube in place with dark green gastric drainage and collecting chamber and tube Ext: no gross muscle atrophy, no edema, no contractures Neuro: CN II-XI grossly intact, no focal neuro deficits Psych: Alert, oriented, appropriate affect Assessment and plan of care: Post op Small Bowel obstruction vs ileus with transition point on CT Acute perforated diverticulitis with abscess and resolving sepsis- Group B strep and anerobic bacilli Status post Sigmoid colectomy with end colostomy completed on 08/02/2032 Anemia, iron deficiency likely with acute blood loss Chronic/Resolved Metabolic alkalosis, resolved Advanced COPD on chronic prednisone, not in exacerbation Chronic hypoxemic respiratory failure on 2 L home O2 -Data/vital sign review: Morning labs reviewed. CBC showing stable normocytic anemia with hemoglobin of 8.3. BMP showing hypercarbia with bicarb of 37, hypochloremia with chloride of 97 and elevated BUN of 31. Liver enzymes stable. -Completed a 3 day course of IV iron appointments on 08/17/22 -Completed a 20 day course of IV antibiotics with Zosyn on 08/18/22 -NG tube removed 08/18/22 -Pulmonary note reviewed: No new recommendations -Infectious disease following and discussed plan of care. -Gen. surgery following and discussed plan of care with general surgery PA, recommending advancing diet to full liquids. -Continue Lasix 20 mg IV push every 12 [id number] -Protonix 40 mg IV daily -Solucortef 25 mg daily D # 4 -Continue with bronchdilators -Patient continues to require Dilaudid 0.5 mg every 3 hours as needed for pain -Patient is on TPN day #17, will monitor how patient tolerates oral intake and possibly discontinue once tolerating a full diet. - CBC, CMP and magnesium in AM -Continue DVT prophylaxis with Lovenox Thank you for allowing us to participate in the care of this pleasant patient. Do not hesitate to contact us with questions. Someone can be reached from the [facility] hospitalist group all hours of the day at [phone] or via perfect serve. Patient was seen independently by Nurse Pracitioner. This document was prepared using [employer] dictation software. Please allow for errors in circle beveler, while rare they do occur. I reviewed the documentation as provided by the CELINE above, who is the original author of this note. I agree with the documented assessment and plan, with the following changes: none Objective - Vital Signs Vital signs: Vital Signs Temp 98.4 F 08/19/22 07:11 Pulse 92 08/19/22 07:43 Resp 18 08/19/22 07:11 BP 114/73 08/19/22 07:11 Pulse Ox 97 08/19/22 07:11 FiO2 35 08/03/22 12:00 Intake & Output 08/18/22 08/19/22 08/19/22 18:59 06:59 18:59 Output Total 800 1900 Balance -800 -1900 Weight 73.4 kg Output: Urine 800 1900 Other: Voiding Method Indwelling Catheter Indwelling Catheter - Labs CBC & Chem 7: 08/19/22 06:02 08/19/22 06:02 Labs: Abnormal Lab Results - Last 24 Hours (Table) 08/18/22 08/18/22 08/18/22 Range/Units 06:49 11:46 17:38 RBC 2.84 L (4.40-5.60) X 10*6/uL Hgb 8.3 L (13.0-17.0) g/dL Hct 27.3 L (39.6-50.0) % MCHC 30.4 L (32.0-37.0) g/dL RDW 14.7 H (11.5-14.5) % MPV 9.4 L (9.5-12.2) fL Absolute Nucleated RBC 0.03 H (0.00-0.00) X 10*3/uL NRBC/100 WBC Diff 0.5 H (0.0-0.0) /100 WBCS Sodium (137-145) mmol/L Chloride (98-107) mmol/L Carbon Dioxide (22-30) mmol/L BUN (9-20) mg/dL Glucose (74-99) mg/dL POC Glucose (mg/dL) 167 H 141 H (70-110) mg/dL Calcium (8.4-10.2) mg/dL Total Protein (6.3-8.2) g/dL Albumin (3.5-5.0) g/dL 08/19/22 08/19/22 Range/Units 01:32 06:02 RBC (4.40-5.60) X 10*6/uL Hgb (13.0-17.0) g/dL Hct (39.6-50.0) % MCHC (32.0-37.0) g/dL RDW (11.5-14.5) % MPV (9.5-12.2) fL Absolute Nucleated RBC (0.00-0.00) X 10*3/uL NRBC/100 WBC Diff (0.0-0.0) /100 WBCS Sodium 136 L (137-145) mmol/L Chloride 97 L (98-107) mmol/L Carbon Dioxide 37 H (22-30) mmol/L BUN 31 H (9-20) mg/dL Glucose 109 H (74-99) mg/dL POC Glucose (mg/dL) 141 H (70-110) mg/dL Calcium 8.2 L (8.4-10.2) mg/dL Total Protein 4.9 L (6.3-8.2) g/dL Albumin 2.7 L (3.5-5.0) g/dL
[2022-08-19] MEDS: FAT EMULSION 20% 250 ML in EMPTY BAG 1 BAG IV SCH (16:20)
[2022-08-19 17:12] LABS: Glucose,Whole Blood 135 mg/dL (70-110)
[2022-08-20 00:12] LABS: Glucose,Whole Blood 188 mg/dL (70-110)
[2022-08-20] MEDS: HYDROmorphone 0.5 MG/0.5 ML SYRINGE IVP PRN ×2 (02:23→06:12)
[2022-08-20] MEDS: ONDANSETRON 4 MG/2 ML VIAL IVP PRN (02:23)
[2022-08-20 06:07] LABS: Glucose,Whole Blood 190 mg/dL (70-110)
[2022-08-20] MEDS: LACTATED RINGERS 1,000 ML IV SCH ×2 (06:12→07:33)
[2022-08-20 06:30] LABS: HCT 29.2 % (39.0-53.0); HGB 9.2 gm/dL (13.0-17.5); MCHC 31.4 g/dL (31.0-37.0); MCV 92.3 fL (80.0-100.0); Mean Platelet Volume 7.6; Platelet Count 356 k/uL (150-450); RBC 3.16 m/uL (4.30-5.90); RDW 14.8 % (11.5-15.5)
[2022-08-20 06:41] LABS: ALT 45 U/L (4-49); AST 41 U/L (17-59); African American GFR (CKD) 46 (>60 ml/min/1.73 sqM); Albumin/Globulin Ratio 1.2; Alkaline Phosphatase 90 U/L (38-126); Anion Gap 8 mmol/L; Blood Urea Nitrogen 41 mg/dL (9-20); Calcium 8.7 mg/dL (8.4-10.2); Carbon Dioxide 30 mmol/L (22-30); Chloride 96 mmol/L (98-107); Globulin 2.5 g/dL; Glucose 173 mg/dL (74-99); Non-African American GFR(CKD) 40 (>60 ml/min/1.73 sqM); Potassium 4.4 mmol/L (3.5-5.1); Sodium 134 mmol/L (137-145); Total Bilirubin 0.6 mg/dL (0.2-1.3); Total Protein 5.5 g/dL (6.3-8.2)
[2022-08-20] MEDS: FUROSEMIDE 10 MG/ML 2 ML VIAL IV SCH (07:40)
[2022-08-20] MEDS: PANTOPRAZOLE 40 MG/10 ML VIAL IV SCH (07:40)
[2022-08-20] MEDS: HYDROCORTISONE SUCCINATE 100 MG/2 ML VIAL IV SCH (07:40)
[2022-08-20] MEDS: ENOXAPARIN 40 MG/0.4 ML SYRINGE SQ SCH (07:40)
[2022-08-20] MEDS: BUDESONIDE 1 MG/2 ML NEBU INHALATION SCH ×2 (07:45→20:17)
[2022-08-20] MEDS: FORMOTEROL FUMARATE 20 MCG/2 ML NEBU INHALATION SCH ×2 (07:45→20:16)
[2022-08-20] MEDS: IPRATROPIUM-ALBUTEROL 3 ML NEB INHALATION SCH ×4 (07:46→20:16)
[2022-08-20] MEDS: HYDROmorphone 1 MG/ML 1 ML SYRINGE IVP PRN ×4 (08:21→23:51)
[2022-08-20] MEDS ORDERED: TAMSULOSIN 0.4 MG CAP.ER.24H PO STA (10:40)
[2022-08-20 11:42] LABS: Glucose,Whole Blood 189 mg/dL (70-110)
--- NOTE | 2022-08-20 12:29 | P.PN ---
Subjective Progress Note Date: 08/20/22 On today's evaluation of 08/16/2022, the patient remains nothing by mouth and receiving for nutritional support. The patient has been unremarkable with of his colostomy bag in the upper from the injuries quite active. As such, and ongoing bowel complications this obstruction is suspected. The patient had a complicated diverticulitis. The patient initially presented to us more than 2 weeks ago and the patient had an acute sigmoid diverticulitis and a complicated diverticulitis with perforation and he had pockets of free intraperitoneal air measuring up to 5.5 cm in size. The patient was taken to the operating room and he underwent a sigmoid colectomy and end colostomy on 08/02/2022. Intra-ab dominal cultures are positive for anaerobic gram-negative bacillus and strep group B. A repeat CAT scan of the abdomen was done and it showed a high-grade distal small bowel obstruction with transition point identified and this was present to be related to adhesions. The patient is being admitted to going for another surgical expiration with the next 24 hours. Note is currently at 5.8 with a hemoglobin of 7. and a platelet count of 333. He has a 31 with a creatinine of 1 and a sodium levels of 140 with a potassium level of 3.7. The patient is on DuoNeb about treatments [id number], the patient is on Lovenox 40 mg subcu for DVT prophylaxis. The patient on TPN and the patient remains on IV Zosyn. ID is on the case. Surgery is also on the case. Note that a repeat CAT scan of the abdomen that was done today showed dilated loops of small bowel which have somewhat improved interval and measuring up to 2.4 cm however there was ongoing nondistended nonopacified loops of small bowel within the right hemiabdomen and persistent transition zone noted within the upper pelvis could be related to a partial obstruction versus an ileus. On today's evaluation of 08/17/2022, the patient is awake and alert and communicating. NG tube is still in place. The results of the CAT scan of the abdomen from yesterday was noted. The patient has improved up with his colostomy bag and we are awaiting further surgical input whether the patient will need another expiratory laparotomy. Otherwise, the patient is receiving TPN for nutritional support. His white cell count is at 5 with a hemoglobin of 8.1 from today and the patient has a BUN of 31 with creatinine 1.2 and a sodium level of 140. Electrolytes are within normal limits. The patient is on DuoNeb updrafts. The patient on Lovenox for DVT prophylaxis. The patient is on Perforomist and Pulmicort updrafts twice a day. The patient is still receiving TPN and IV Zosyn. Abdomen is nontender. On 08/18/2022, the patient is doing well. NG tube is in clamped. Output from the antecubital minimal. He is having improved output from his colostomy bag. No fever or chills. No leukocytosis. Remains on TPN for nutritional support. Surgical wound is dry and clean and intact. The WBC count at 6.2 with a hemoglobin of 8.3 and the patient is a BUN of 32 with a creatinine of 1.1 and a sodium level of 137. The plan is to discontinue the NG tube and allow the patient some sips of clear liquid on today's evaluation. On 08/19/2022, the patient is stable. NG tube is notable that the patient is taking popsicles and some clear liquids. No significant abdominal pain. No nausea or emesis. Still on TPN for nutritional support. No fever or chills. Still on antibiotics. The patient is white cell count is at 6.7 with a h emoglobin of 8.3. BUN is at 31 with a creatinine of 1.23 and a sodium level is at 136. Glucose of 175. LFTs are normal. Triglyceride levels of 128. Blood sugars mildly elevated covered by sliding scale insulin coverage.. On 08/20/2022, the patient is being seen for a follow-up. The patient is tolerating diet. NG tube was removed yesterday. The Art catheter was also removed and the patient was unable to urinate. He had never of significant urinary retention overnight and secondary abdominal pain. As such, he underwent a straight cath of the bladder and he got significant symptomatic relief. Nevertheless, the Art catheter was kept up and the patient is being monitored very closely. His creatinine was at 1.7 and there may be a component of obstructive uropathy along with diuresis. As such, I decided to stop the Lasix and Monitor the patient's urine output and monitor the bladder scan. Art catheter may need to be reinserted and the patient is unable to urinate. The BU N is at 41 with a creatinine of 1.7 and sodium levels is 134. The white cell count of 8 with a hemoglobin of 9.2. Abdominal surgical one-sided striking and intact. Objective - Vital Signs Vital signs: Vital Signs Temp 98 F 08/20/22 02:01 Pulse 120 H 08/20/22 02:01 Resp 20 08/19/22 20:00 BP 136/80 08/20/22 02:01 Pulse Ox 96 08/20/22 07:44 FiO2 35 08/03/22 12:00 Intake & Output 08/19/22 08/20/22 08/20/22 18:59 06:59 18:59 Intake Total 1048 741.333 Output Total 1040 75 Balance 8 666.333 Weight 73.4 kg Intake: Intake, IV Titration 1048 741.333 Amount Sodium Phosphate 15 mmol 1048 741.333 Sodium Chloride 4Meq/ml Vial 30 meq Potassium Chloride 48 meq Magnesium Sulfate gm 0.75 gm Calcium Gluconate 1 gm In Amino Acids 5 %/Dextrose 20 % 1,000 ml @ 80 mls/ hr IV .BY DURATION [facility] Rx #:[id number] Output: Urine 1040 Uretheral (Art) 920 Stool 75 Other: Voiding Method Indwelling Catheter - Exam GENERAL EXAM: Alert, pleasant 72-year-old male, on 3 L nasal cannula, HEAD: Normocephalic. EYES: Normal reaction of pupils, equal size. NOSE: Nasogastric tube currently in place. Clear with pink turbinates. THROAT: No erythema or exudates. NECK: No masses, no JVD. CHEST: No chest wall deformity. LUNGS: Equal air entry with bilateral end expiratory wheeze, diminished. CVS: S1 and S2 normal with no audible murmur, regular rhythm. ABDOMEN: Postsurgical changes. Ostomy intact. Functioning with minimal stool. The patient has some positive bowel sounds . SPINE: No scoliosis or deformity SKIN: No rashes CENTRAL NERVOUS SYSTEM: No focal deficits, tone is normal in all 4 extremities. EXTREMITIES: There is no peripheral edema. No clubbing, no cyanosis. Peripheral pulses are intact. - Labs CBC & Chem 7: 08/20/22 05:53 08/20/22 05:53 Labs: Abnormal Lab Results - Last 24 Hours (Table) 08/19/22 08/19/22 08/19/22 Range/Units 06:02 10:57 17:10 RBC 2.81 L (4.40-5.60) X 10*6/uL Hgb 8.3 L (13.0-17.0) g/dL Hct 27.1 L (39.6-50.0) % MCHC 30.6 L (32.0-37.0) g/dL RDW 14.9 H (11.5-14.5) % MPV 9.2 L (9.5-12.2) fL Absolute Nucleated RBC 0.03 H (0.00-0.00) X 10*3/uL NRBC/100 WBC Diff 0.4 H (0.0-0.0) /100 WBCS Sodium (137-145) mmol/L Chloride (98-107) mmol/L BUN (9-20) mg/dL Creatinine (0.66-1.25) mg/dL Glucose (74-99) mg/dL POC Glucose (mg/dL) 175 H 135 H (70-110) mg/dL Total Protein (6.3-8.2) g/dL Albumin (3.5-5.0) g/dL 08/20/22 08/20/22 08/20/22 Range/Units 00:09 05:53 05:53 RBC 3.16 L (4.40-5.60) X 10*6/uL Hgb 9.2 L (13.0-17.0) g/dL Hct 29.2 L (39.6-50.0) % MCHC (32.0-37.0) g/dL RDW (11.5-14.5) % MPV (9.5-12.2) fL Absolute Nucleated RBC (0.00-0.00) X 10*3/uL NRBC/100 WBC Diff (0.0-0.0) /100 WBCS Sodium 134 L (137-145) mmol/L Chloride 96 L (98-107) mmol/L BUN 41 H (9-20) mg/dL Creatinine 1.70 H (0.66-1.25) mg/dL Glucose 173 H (74-99) mg/dL POC Glucose (mg/dL) 188 H (70-110) mg/dL Total Protein 5.5 L (6.3-8.2) g/dL Albumin 3.0 L (3.5-5.0) g/dL 08/20/22 Range/Units 06:06 RBC (4.40-5.60) X 10*6/uL Hgb (13.0-17.0) g/dL Hct (39.6-50.0) % MCHC (32.0-37.0) g/dL RDW (11.5-14.5) % MPV (9.5-12.2) fL Absolute Nucleated RBC (0.00-0.00) X 10*3/uL NRBC/100 WBC Diff (0.0-0.0) /100 WBCS Sodium (137-145) mmol/L Chloride (98-107) mmol/L BUN (9-20) mg/dL Creatinine (0.66-1.25) mg/dL Glucose (74-99) mg/dL POC Glucose (mg/dL) 190 H (70-110) mg/dL Total Protein (6.3-8.2) g/dL Albumin (3.5-5.0) g/dL Assessment and Plan Plan: Acute perforated sigmoid diverticulitis with abscess, status post sigmoid colectomy and end colostomy on 08/02/2022. Nasogastric tube removed. Abdominal x-ray revealed diffusely dilated small bowel loops measuring up to 4.5 cm suggesting postoperative ileus. There is liquid stool and gas in the ostomy. On 08/12/2022 seconds issues with nausea and vomiting. Still with some nausea and vomiting 08/13/2022. Computed tomography scan confirmed a high-grade distal small bowel obstruction with transition point identified presumed related to adhesions. Interval partial colectomy and colostomy changes noted. Nasogastric tube was reinserted. A repeat CAT scan of the abdomen on 08/16/2022 showed persistent transition zone in the upper pelvis could be related to partial obstruction versus ileus. There was also dilated small loops of small bowel improved compared to the earlier CAT scan of the abdomen and pelvis that was done on 08/13/2022. The patient has a functioning colostomy and output is improving. The NG tube has been removed and the patient is tolerating clear liquids and popsicles. No nausea. Surgical wound is intact. The patient is still on antibiotics. Ambulating. History of diverticulosis Acute kidney injury, likely secondary to obstructive uropathy. Art catheter was removed and the patient was unable to urinate and the patient underwent a straight cath Recent hospitalization for an acute COPD exacerbation back in June 2022, treated and the patient has recovered Advanced COPD with an FEV1 of 26% of predicted, the patient is chronically oxygen and steroid dependent taking prednisone 10 mg by mouth daily. The patient is currently on hydrocortisone IV 25 mg daily basis. Ex-smoker and the patient quit smoking 2 years ago Chronic hypoxic respiratory failure maintained on O2 at 2 L nasal cannula Prostate cancer Acid reflux Plan: Stop Lasix Frequent bladder scans Monitor renal function Reassess Art catheter and the patient is unable to urinate Advance diet as tolerated Colostomy is more functional No abdominal distention CAT scan from yesterday was noted and the patient is improved or partial improvement in the dilatation of the small bowel and the patient is showing some increase operative the colostomy bag. Continue IV Zosyn Continue TPN Continue the current treatment plan We will continue to follow along well
--- NOTE | 2022-08-20 15:12 | P.PN ---
Subjective Progress Note Date: 08/20/22 Hospital course: Patient is a very pleasant 72-year-old male with COPD home oxygen dependent on 3 L at all times, diverticulosis and GERD. He presented to the ER on 07/29/22 with complaints of abdominal pain and underwent full evaluation. CT abdomen and pelvis showed acute sigmoid diverticulitis complicated by perforation with pockets of free intraperitoneal air measuring up to 5.5 cm accompanied by trace lower abdominal ascites, secondary small bowel ileus, moderate sized hiatal hernia, mild circumferential distal esophageal wall thickening, and prostameg lamonte. Patient was admitted to general surgery and we were consulted for medical management. Pt initially treated conservatively and then underwent a sigmoidectomy with end colostomy on 08/02/[address] Moyer and was transported to the ICU where he was extubated on 08/03. Venous Doppler from 08/14-no evidence of upper extremity DVT, PICC line in place. Patient completed a three-day course of IV iron supplements on 08/17/22. Patient completed 20 day course of IV antibiotics with Zosyn on 08/18/22. NG tube was removed twice requiring reinsertion and finally removed for a third attempt at oral challenge on 08/18/22. Physical exam: Patient seen and examined at bedside. Patient discouraged this morning. Had a single episode of nausea and vomiting yesterday evening and currently reports decreased appetite this morning. General: non toxic Derm: warm, dry. Postsurgical incision vertically to lower abdomen with dehiscence at distal portion with packing present. Head: atraumatic, normocephalic, symmetric Eyes: EOMI, no lid lag, anicteric sclera Mouth: no lip lesion, mucus membranes moist Cardiovascular: S1S2 reg, no murmur, positive posterior tibial pulse bilateral, Lungs: CTA bilateral, no rhonchi, no rales , no accessory muscle use GI/: soft, nontender to palpation, no guarding, no appreciable organomegaly. Colostomy left lower quadrant with dark colored stool in colostomy bag. Ext: no gross muscle atrophy, no edema, no contractures Neuro: CN II-XI grossly intact, no focal neuro deficits Psych: Alert, oriented, appropriate affect Assessment and plan of care: Post op Small Bowel obstruction vs ileus with transition point on CT Acute perforated diverticulitis with abscess and resolving sepsis- Group B strep and anerobic bacilli Status post Sigmoid colectomy with end colostomy completed on 08/02/2032 Anemia, iron deficiency likely with acute blood loss Chronic/Resolved Metabolic alkalosis, resolved Advanced COPD on chronic prednisone, not in exacerbation Chronic hypoxemic respiratory failure on 2 L home O2 -Data/vital sign review: Morning labs reviewed. CBC showing stable normocytic anemia with hemoglobin of 8.3. BMP showing hypercarbia with bicarb of 37, hypochloremia with chloride of 97 and elevated BUN of 31. Liver enzymes stable. -Completed a 3 day course of IV iron appointments on 08/17/22 -Completed a 20 day course of IV antibiotics with Zosyn on 08/18/22 -NG tube removed 08/18/22 -Pulmonary note reviewed: Discontinue Lasix. -Infectious disease following, reviewed note in chart -Gen. surgery following and recommending continued full liquids. -Solucortef 25 mg daily D # 5 -Continue with bronchdilators -Patient continues to require Dilaudid 0.5 mg every 3 hours as needed for pain -Patient is on TPN day #18, will monitor how patient tolerates oral intake and possibly discontinue once tolerating a full diet. -Patient started on protein supplements 3 times daily between meals on 08/19/22 -CBC, CMP and magnesium in AM -Continue DVT prophylaxis with Lovenox Thank you for allowing us to participate in the care of this pleasant patient. Do not hesitate to contact us with questions. Someone can be reached from the [facility] hospitalist group all hours of the day at [phone] or via perfect serve. Patient was seen independently by Nurse Pracitioner. This document was prepared using [employer] and [employer] dictation software. Please allow for errors in optical effects line up person, while rare they do occur. I reviewed the documentation as provided by the CELINE above, who is the original author of this note. I agree with the documented assessment and plan, with the following changes: none Objective - Vital Signs Vital signs: Vital Signs Temp 98 F 08/20/22 02:01 Pulse 120 H 08/20/22 02:01 Resp 20 08/19/22 20:00 BP 136/80 08/20/22 02:01 Pulse Ox 96 08/20/22 07:44 FiO2 35 08/03/22 12:00 Intake & Output 08/19/22 08/20/22 08/20/22 18:59 06:59 18:59 Intake Total 1048 741.333 Output Total 1040 75 Balance 8 666.333 Weight 73.4 kg Intake: Intake, IV Titration 1048 741.333 Amount Sodium Phosphate 15 mmol 1048 741.333 Sodium Chloride 4Meq/ml Vial 30 meq Potassium Chloride 48 meq Magnesium Sulfate gm 0.75 gm Calcium Gluconate 1 gm In Amino Acids 5 %/Dextrose 20 % 1,000 ml @ 80 mls/ hr IV .BY DURATION [facility] Rx #:[id number] Output: Urine 1040 Uretheral (Art) 920 Stool 75 Other: Voiding Method Indwelling Catheter - Labs CBC & Chem 7: 08/20/22 05:53 08/20/22 05:53 Labs: Abnormal Lab Results - Last 24 Hours (Table) 08/19/22 08/19/22 08/19/22 Range/Units 06:02 10:57 17:10 RBC 2.81 L (4.40-5.60) X 10*6/uL Hgb 8.3 L (13.0-17.0) g/dL Hct 27.1 L (39.6-50.0) % MCHC 30.6 L (32.0-37.0) g/dL RDW 14.9 H (11.5-14.5) % MPV 9.2 L (9.5-12.2) fL Absolute Nucleated RBC 0.03 H (0.00-0.00) X 10*3/uL NRBC/100 WBC Diff 0.4 H (0.0-0.0) /100 WBCS Sodium (137-145) mmol/L Chloride (98-107) mmol/L BUN (9-20) mg/dL Creatinine (0.66-1.25) mg/dL Glucose (74-99) mg/dL POC Glucose (mg/dL) 175 H 135 H (70-110) mg/dL Total Protein (6.3-8.2) g/dL Albumin (3.5-5.0) g/dL 08/20/22 08/20/22 08/20/22 Range/Units 00:09 05:53 05:53 RBC 3.16 L (4.40-5.60) X 10*6/uL Hgb 9.2 L (13.0-17.0) g/dL Hct 29.2 L (39.6-50.0) % MCHC (32.0-37.0) g/dL RDW (11.5-14.5) % MPV (9.5-12.2) fL Absolute Nucleated RBC (0.00-0.00) X 10*3/uL NRBC/100 WBC Diff (0.0-0.0) /100 WBCS Sodium 134 L (137-145) mmol/L Chloride 96 L (98-107) mmol/L BUN 41 H (9-20) mg/dL Creatinine 1.70 H (0.66-1.25) mg/dL Glucose 173 H (74-99) mg/dL POC Glucose (mg/dL) 188 H (70-110) mg/dL Total Protein 5.5 L (6.3-8.2) g/dL Albumin 3.0 L (3.5-5.0) g/dL 08/20/22 Range/Units 06:06 RBC (4.40-5.60) X 10*6/uL Hgb (13.0-17.0) g/dL Hct (39.6-50.0) % MCHC (32.0-37.0) g/dL RDW (11.5-14.5) % MPV (9.5-12.2) fL Absolute Nucleated RBC (0.00-0.00) X 10*3/uL NRBC/100 WBC Diff (0.0-0.0) /100 WBCS Sodium (137-145) mmol/L Chloride (98-107) mmol/L BUN (9-20) mg/dL Creatinine (0.66-1.25) mg/dL Glucose (74-99) mg/dL POC Glucose (mg/dL) 190 H (70-110) mg/dL Total Protein (6.3-8.2) g/dL Albumin (3.5-5.0) g/dL
[2022-08-20 16:44] LABS: Glucose,Whole Blood 183 mg/dL (70-110)
--- NOTE | 2022-08-20 17:07 | P.PN ---
Subjective Progress Note Date: 08/20/22 He reports wanting something more to eat. 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 He denies abdominal pain. He has moderate crackle and rales on oxygen. May advance diet to low fiber. Objective - Vital Signs Vital signs: Vital Signs Temp 98 F 08/20/22 02:01 Pulse 96 08/20/22 15:50 Resp 20 08/19/22 20:00 BP 136/80 08/20/22 02:01 Pulse Ox 96 08/20/22 07:44 FiO2 35 08/03/22 12:00 Intake & Output 08/19/22 08/20/22 08/20/22 18:59 06:59 18:59 Intake Total 1048 741.333 Output Total 1040 75 Balance 8 666.333 Weight 73.4 kg Intake: Intake, IV Titration 1048 741.333 Amount Sodium Phosphate 15 mmol 1048 741.333 Sodium Chloride 4Meq/ml Vial 30 meq Potassium Chloride 48 meq Magnesium Sulfate gm 0.75 gm Calcium Gluconate 1 gm In Amino Acids 5 %/Dextrose 20 % 1,000 ml @ 80 mls/ hr IV .BY DURATION [facility] Rx #:[id number] Output: Urine 1040 Uretheral (Art) 920 Stool 75 Other: Voiding Method Indwelling Catheter - Labs CBC & Chem 7: 08/20/22 05:53 08/20/22 05:53 Labs: Abnormal Lab Results - Last 24 Hours (Table) 08/19/22 08/20/22 08/20/22 Range/Units 17:10 00:09 05:53 RBC 3.16 L (4.30-5.90) m/uL Hgb 9.2 L (13.0-17.5) gm/dL Hct 29.2 L (39.0-53.0) % Sodium (137-145) mmol/L Chloride (98-107) mmol/L BUN (9-20) mg/dL Creatinine (0.66-1.25) mg/dL Glucose (74-99) mg/dL POC Glucose (mg/dL) 135 H 188 H (70-110) mg/dL Total Protein (6.3-8.2) g/dL Albumin (3.5-5.0) g/dL 08/20/22 08/20/22 08/20/22 Range/Units 05:53 06:06 11:40 RBC (4.30-5.90) m/uL Hgb (13.0-17.5) gm/dL Hct (39.0-53.0) % Sodium 134 L (137-145) mmol/L Chloride 96 L (98-107) mmol/L BUN 41 H (9-20) mg/dL Creatinine 1.70 H (0.66-1.25) mg/dL Glucose 173 H (74-99) mg/dL POC Glucose (mg/dL) 190 H 189 H (70-110) mg/dL Total Protein 5.5 L (6.3-8.2) g/dL Albumin 3.0 L (3.5-5.0) g/dL 08/20/22 Range/Units 16:42 RBC (4.30-5.90) m/uL Hgb (13.0-17.5) gm/dL Hct (39.0-53.0) % Sodium (137-145) mmol/L Chloride (98-107) mmol/L BUN (9-20) mg/dL Creatinine (0.66-1.25) mg/dL Glucose (74-99) mg/dL POC Glucose (mg/dL) 183 H (70-110) mg/dL Total Protein (6.3-8.2) g/dL Albumin (3.5-5.0) g/dL
--- NOTE | 2022-08-20 19:56 | P.PN ---
Subjective Progress Note Date: 08/20/22 Principal diagnosis: Perforated diverticulitis and peritonitis Patient is a 72-year-old male presenting to the hospital abdominal pain has been diagnosed with acute diverticulitis with perforation treated medically did not have improvement subsequently was taken to the OR on 08/02/2022 and the patient is status post laparotomy; colectomy and diverting colostomy. On today's evaluation that is 08/20/2022, the patient is afebrile, patient is breathing comfortably on 3L nasal cannula oxygen, patient denies having any nausea or vomiting, the patient tolerating clear liquid diet, no nausea no vomiting abdominal pain has decreased in intensity , seems to have problem with urinary retention after removal of catheter Objective - Vital Signs Vital signs: Vital Signs Temp 98 F 08/20/22 02:01 Pulse 120 H 08/20/22 02:01 Resp 20 08/19/22 20:00 BP 136/80 08/20/22 02:01 Pulse Ox 96 08/20/22 07:44 FiO2 35 08/03/22 12:00 Intake & Output 08/19/22 08/20/22 08/20/22 18:59 06:59 18:59 Intake Total 1048 741.333 Output Total 1040 75 Balance 8 666.333 Weight 73.4 kg Intake: Intake, IV Titration 1048 741.333 Amount Sodium Phosphate 15 mmol 1048 741.333 Sodium Chloride 4Meq/ml Vial 30 meq Potassium Chloride 48 meq Magnesium Sulfate gm 0.75 gm Calcium Gluconate 1 gm In Amino Acids 5 %/Dextrose 20 % 1,000 ml @ 80 mls/ hr IV .BY DURATION [facility] Rx #:[id number] Output: Urine 1040 Uretheral (Art) 920 Stool 75 Other: Voiding Method Indwelling Catheter - Exam GENERAL DESCRIPTION: An elderly male lying in bed in no distress RESPIRATORY SYSTEM: Unlabored breathing , decreased breath sounds at bases HEART: S1 S2 regular rate and rhythm , ABDOMEN: Soft , no tenderness EXTREMITIES: Did have extensive bruising to the upper extremity especially the left arm - Labs CBC & Chem 7: 08/20/22 05:53 08/20/22 05:53 Labs: Abnormal Lab Results - Last 24 Hours (Table) 08/19/22 08/19/22 08/19/22 Range/Units 06:02 10:57 17:10 RBC 2.81 L (4.40-5.60) X 10*6/uL Hgb 8.3 L (13.0-17.0) g/dL Hct 27.1 L (39.6-50.0) % MCHC 30.6 L (32.0-37.0) g/dL RDW 14.9 H (11.5-14.5) % MPV 9.2 L (9.5-12.2) fL Absolute Nucleated RBC 0.03 H (0.00-0.00) X 10*3/uL NRBC/100 WBC Diff 0.4 H (0.0-0.0) /100 WBCS Sodium (137-145) mmol/L Chloride (98-107) mmol/L BUN (9-20) mg/dL Creatinine (0.66-1.25) mg/dL Glucose (74-99) mg/dL POC Glucose (mg/dL) 175 H 135 H (70-110) mg/dL Total Protein (6.3-8.2) g/dL Albumin (3.5-5.0) g/dL 08/20/22 08/20/22 08/20/22 Range/Units 00:09 05:53 05:53 RBC 3.16 L (4.40-5.60) X 10*6/uL Hgb 9.2 L (13.0-17.0) g/dL Hct 29.2 L (39.6-50.0) % MCHC (32.0-37.0) g/dL RDW (11.5-14.5) % MPV (9.5-12.2) fL Absolute Nucleated RBC (0.00-0.00) X 10*3/uL NRBC/100 WBC Diff (0.0-0.0) /100 WBCS Sodium 134 L (137-145) mmol/L Chloride 96 L (98-107) mmol/L BUN 41 H (9-20) mg/dL Creatinine 1.70 H (0.66-1.25) mg/dL Glucose 173 H (74-99) mg/dL POC Glucose (mg/dL) 188 H (70-110) mg/dL Total Protein 5.5 L (6.3-8.2) g/dL Albumin 3.0 L (3.5-5.0) g/dL 08/20/22 Range/Units 06:06 RBC (4.40-5.60) X 10*6/uL Hgb (13.0-17.0) g/dL Hct (39.6-50.0) % MCHC (32.0-37.0) g/dL RDW (11.5-14.5) % MPV (9.5-12.2) fL Absolute Nucleated RBC (0.00-0.00) X 10*3/uL NRBC/100 WBC Diff (0.0-0.0) /100 WBCS Sodium (137-145) mmol/L Chloride (98-107) mmol/L BUN (9-20) mg/dL Creatinine (0.66-1.25) mg/dL Glucose (74-99) mg/dL POC Glucose (mg/dL) 190 H (70-110) mg/dL Total Protein (6.3-8.2) g/dL Albumin (3.5-5.0) g/dL Assessment and Plan (1) Diverticulitis of colon with perforation Current Visit: Yes Status: Acute Code(s): K57.20 - DVTRCLI OF LG INT W PERFORATION AND ABSCESS W/O BLEEDING SNOMED Code(s): 81006753 Plan: 1patient was in the hospital with abdominal pain has been diagnosed with a complicated diverticulitis failing medical therapy and the patient subsequently status post laparotomy sigmoid colectomy and diverting colostomy with concern for secondary peritonitis from perforated sigmoid diverticulitis and need to cover for enteric gram-negative both aerobes and anaerobes 2-patient abdominal cultures grew group B strep and anaerobic gram-negative bacilli 3-the patient remains to be afebrile white count has been normal , CT of abdominal pelvis did shows evidence of high-grade distal small bowel obstruction and is being monitor manage medically, with a repeat CAT scan completed on 08/16/2022 did show some improvement in the area as 4-the patient has shown clinical improvement, remains to be afebrile , wbc normal , we'll monitor the patient closely off antibiotic Time with Patient: Less than 30
[2022-08-21 00:03] LABS: Glucose,Whole Blood 142 mg/dL (70-110)
[2022-08-21] MEDS: HYDROmorphone 1 MG/ML 1 ML SYRINGE IVP PRN ×4 (04:30→20:05)
[2022-08-21 06:00] LABS: Glucose,Whole Blood 148 mg/dL (70-110)
[2022-08-21 06:26] LABS: HCT 28.6 % (39.0-53.0); HGB 9.1 gm/dL (13.0-17.5); Hypochromasia Slight; MCH 30.3 pg (25.0-35.0); MCHC 31.6 g/dL (31.0-37.0); MCV 95.8 fL (80.0-100.0); Mean Platelet Volume 7.4; Platelet Count 300 k/uL (150-450); RBC 2.99 m/uL (4.30-5.90); RDW 14.9 % (11.5-15.5); WBC 6.2 k/uL (3.8-10.6)
[2022-08-21 06:38] LABS: ALT 55 U/L (4-49); AST 44 U/L (17-59); African American GFR (CKD) 62 (>60 ml/min/1.73 sqM); Albumin 2.7 g/dL (3.5-5.0); Albumin/Globulin Ratio 1.1; Alkaline Phosphatase 86 U/L (38-126); Anion Gap 4 mmol/L; Blood Urea Nitrogen 42 mg/dL (9-20); Calcium 8.6 mg/dL (8.4-10.2); Carbon Dioxide 31 mmol/L (22-30); Chloride 101 mmol/L (98-107); Globulin 2.4 g/dL; Glucose 127 mg/dL (74-99); Magnesium 2.2 mg/dL (1.6-2.3); Non-African American GFR(CKD) 53 (>60 ml/min/1.73 sqM); Sodium 136 mmol/L (137-145); Total Bilirubin 0.5 mg/dL (0.2-1.3); Total Protein 5.1 g/dL (6.3-8.2)
[2022-08-21] MEDS: LACTATED RINGERS 1,000 ML IV SCH (08:21)
[2022-08-21] MEDS: TAMSULOSIN 0.4 MG CAP.ER.24H PO SCH (08:32)
[2022-08-21] MEDS: HYDROCORTISONE SUCCINATE 100 MG/2 ML VIAL IV SCH (08:32)
[2022-08-21] MEDS: ENOXAPARIN 40 MG/0.4 ML SYRINGE SQ SCH (08:32)
[2022-08-21] MEDS: PANTOPRAZOLE 40 MG/10 ML VIAL IV SCH (08:32)
[2022-08-21] MEDS: FORMOTEROL FUMARATE 20 MCG/2 ML NEBU INHALATION SCH ×2 (08:43→20:56)
[2022-08-21] MEDS: BUDESONIDE 1 MG/2 ML NEBU INHALATION SCH ×2 (08:43→20:56)
[2022-08-21] MEDS: IPRATROPIUM-ALBUTEROL 3 ML NEB INHALATION SCH ×4 (08:43→20:56)
[2022-08-21] MEDS ORDERED: SODIUM CHLORIDE 0.9% 500 ML 500 ML IV ONE (10:01)
[2022-08-21 11:11] LABS: Glucose,Whole Blood 188 mg/dL (70-110)
--- NOTE | 2022-08-21 12:14 | XR ---
EXAMINATION TYPE: XR KUB DATE OF EXAM: 08/21/2022 COMPARISON: 08/09/2022 HISTORY: Pain TECHNIQUE: Single supine KUB image of the abdomen is obtained FINDINGS: Midline skin talya are noted as well as left-sided ostomy device. NG tube has been in the interval. Dilated small bowel seen previously measuring up to 4.5 cm in greatest dimension currently measures 2.7 cm. Contrast is seen within the colon. No convincing evidence for pneumoperitoneum. No unusual calcifications. The lung bases are clear. There is The osseous structures are intact. IMPRESSION: 1. Overall nonobstructive bowel gas pattern. Interval improvement noted.
--- NOTE | 2022-08-21 12:20 | P.PN ---
Subjective Progress Note Date: 08/21/22 On today's evaluation of 08/16/2022, the patient remains nothing by mouth and receiving for nutritional support. The patient has been unremarkable with of his colostomy bag in the upper from the injuries quite active. As such, and ongoing bowel complications this obstruction is suspected. The patient had a complicated diverticulitis. The patient initially presented to us more than 2 weeks ago and the patient had an acute sigmoid diverticulitis and a complicated diverticulitis with perforation and he had pockets of free intraperitoneal air measuring up to 5.5 cm in size. The patient was taken to the operating room and he underwent a sigmoid colectomy and end colostomy on 08/02/2022. Intra-ab dominal cultures are positive for anaerobic gram-negative bacillus and strep group B. A repeat CAT scan of the abdomen was done and it showed a high-grade distal small bowel obstruction with transition point identified and this was present to be related to adhesions. The patient is being admitted to going for another surgical expiration with the next 24 hours. Note is currently at 5.8 with a hemoglobin of 7. and a platelet count of 333. He has a 31 with a creatinine of 1 and a sodium levels of 140 with a potassium level of 3.7. The patient is on DuoNeb about treatments [id number], the patient is on Lovenox 40 mg subcu for DVT prophylaxis. The patient on TPN and the patient remains on IV Zosyn. ID is on the case. Surgery is also on the case. Note that a repeat CAT scan of the abdomen that was done today showed dilated loops of small bowel which have somewhat improved interval and measuring up to 2.4 cm however there was ongoing nondistended nonopacified loops of small bowel within the right hemiabdomen and persistent transition zone noted within the upper pelvis could be related to a partial obstruction versus an ileus. On today's evaluation of 08/17/2022, the patient is awake and alert and communicating. NG tube is still in place. The results of the CAT scan of the abdomen from yesterday was noted. The patient has improved up with his colostomy bag and we are awaiting further surgical input whether the patient will need another expiratory laparotomy. Otherwise, the patient is receiving TPN for nutritional support. His white cell count is at 5 with a hemoglobin of 8.1 from today and the patient has a BUN of 31 with creatinine 1.2 and a sodium level of 140. Electrolytes are within normal limits. The patient is on DuoNeb updrafts. The patient on Lovenox for DVT prophylaxis. The patient is on Perforomist and Pulmicort updrafts twice a day. The patient is still receiving TPN and IV Zosyn. Abdomen is nontender. On 08/18/2022, the patient is doing well. NG tube is in clamped. Output from the antecubital minimal. He is having improved output from his colostomy bag. No fever or chills. No leukocytosis. Remains on TPN for nutritional support. Surgical wound is dry and clean and intact. The WBC count at 6.2 with a hemoglobin of 8.3 and the patient is a BUN of 32 with a creatinine of 1.1 and a sodium level of 137. The plan is to discontinue the NG tube and allow the patient some sips of clear liquid on today's evaluation. On 08/19/2022, the patient is stable. NG tube is notable that the patient is taking popsicles and some clear liquids. No significant abdominal pain. No nausea or emesis. Still on TPN for nutritional support. No fever or chills. Still on antibiotics. The patient is white cell count is at 6.7 with a h emoglobin of 8.3. BUN is at 31 with a creatinine of 1.23 and a sodium level is at 136. Glucose of 175. LFTs are normal. Triglyceride levels of 128. Blood sugars mildly elevated covered by sliding scale insulin coverage.. On 08/20/2022, the patient is being seen for a follow-up. The patient is tolerating diet. NG tube was removed yesterday. The Art catheter was also removed and the patient was unable to urinate. He had never of significant urinary retention overnight and secondary abdominal pain. As such, he underwent a straight cath of the bladder and he got significant symptomatic relief. Nevertheless, the Art catheter was kept up and the patient is being monitored very closely. His creatinine was at 1.7 and there may be a component of obstructive uropathy along with diuresis. As such, I decided to stop the Lasix and Monitor the patient's urine output and monitor the bladder scan. Art catheter may need to be reinserted and the patient is unable to urinate. The BU N is at 41 with a creatinine of 1.7 and sodium levels is 134. The white cell count of 8 with a hemoglobin of 9.2. Abdominal surgical one-sided striking and intact. Today's evaluation of 08/21/2022, the patient is complaining of some mild abdominal distention. Colostomy is functional. The patient is positive bowel sounds. No emesis. NG tube is removed and the patient is still on TPN for nutr itional support. The patient meanwhile had some issues with urinary retention post removal of the Art catheter. The catheter had to be reinserted. The creatinine is down to 1.3 and the patient was taken off the diuretics. The rest of the blood work shows a white cell count of 6.2 with a hemoglobin 9.1. Sodium level is at 136. A KUB was obtained and it shows a nonobstructive bowel gas pattern. Objective - Vital Signs Vital signs: Vital Signs Temp 98.2 F 08/21/22 07:28 Pulse 130 H 08/21/22 10:10 Resp 18 08/21/22 07:28 BP 94/59 08/21/22 10:10 Pulse Ox 95 08/21/22 08:46 FiO2 35 08/03/22 12:00 Intake & Output 08/20/22 08/21/22 08/21/22 18:59 06:59 18:59 Intake Total 1048 Output Total 800 Balance 1048 -800 Intake: Intake, IV Titration 1048 Amount Sodium Phosphate 15 mmol 1048 Sodium Chloride 4Meq/ml Vial 30 meq Potassium Chloride 48 meq Magnesium Sulfate gm 0.75 gm Calcium Gluconate 1 gm In Amino Acids 5 %/Dextrose 20 % 1,000 ml @ 80 mls/ hr IV .BY DURATION [facility] Rx #:[id number] Output: Urine 800 Other: Voiding Method Indwelling Catheter - Exam GENERAL EXAM: Alert, pleasant 72-year-old male, on 3 L nasal cannula, HEAD: Normocephalic. EYES: Normal reaction of pupils, equal size. NOSE: Nasogastric tube currently in place. Clear with pink turbinates. THROAT: No erythema or exudates. NECK: No masses, no JVD. CHEST: No chest wall deformity. LUNGS: Equal air entry with bilateral end expiratory wheeze, diminished. CVS: S1 and S2 normal with no audible murmur, regular rhythm. ABDOMEN: Postsurgical changes. Ostomy intact. Functioning with minimal stool. The patient has some positive bowel sounds . SPINE: No scoliosis or deformity SKIN: No rashes CENTRAL NERVOUS SYSTEM: No focal deficits, tone is normal in all 4 extremities. EXTREMITIES: There is no peripheral edema. No clubbing, no cyanosis. Peripheral pulses are intact. - Labs CBC & Chem 7: 08/21/22 05:46 08/21/22 05:46 Labs: Abnormal Lab Results - Last 24 Hours (Table) 08/20/22 08/20/22 08/21/22 Range/Units 11:40 16:42 00:02 RBC (4.30-5.90) m/uL Hgb (13.0-17.5) gm/dL Hct (39.0-53.0) % Sodium (137-145) mmol/L Carbon Dioxide (22-30) mmol/L BUN (9-20) mg/dL Creatinine (0.66-1.25) mg/dL Glucose (74-99) mg/dL POC Glucose (mg/dL) 189 H 183 H 142 H (70-110) mg/dL ALT (4-49) U/L Total Protein (6.3-8.2) g/dL Albumin (3.5-5.0) g/dL 08/21/22 08/21/22 08/21/22 Range/Units 05:46 05:46 05:59 RBC 2.99 L (4.30-5.90) m/uL Hgb 9.1 L (13.0-17.5) gm/dL Hct 28.6 L (39.0-53.0) % Sodium 136 L (137-145) mmol/L Carbon Dioxide 31 H (22-30) mmol/L BUN 42 H (9-20) mg/dL Creatinine 1.33 H (0.66-1.25) mg/dL Glucose 127 H (74-99) mg/dL POC Glucose (mg/dL) 148 H (70-110) mg/dL ALT 55 H (4-49) U/L Total Protein 5.1 L (6.3-8.2) g/dL Albumin 2.7 L (3.5-5.0) g/dL 08/21/22 Range/Units 11:10 RBC (4.30-5.90) m/uL Hgb (13.0-17.5) gm/dL Hct (39.0-53.0) % Sodium (137-145) mmol/L Carbon Dioxide (22-30) mmol/L BUN (9-20) mg/dL Creatinine (0.66-1.25) mg/dL Glucose (74-99) mg/dL POC Glucose (mg/dL) 188 H (70-110) mg/dL ALT (4-49) U/L Total Protein (6.3-8.2) g/dL Albumin (3.5-5.0) g/dL Assessment and Plan Plan: Acute perforated sigmoid diverticulitis with abscess, status post sigmoid colectomy and end colostomy on 08/02/2022. Nasogastric tube removed. Abdominal x-ray revealed diffusely dilated small bowel loops measuring up to 4.5 cm suggesting postoperative ileus. There is liquid stool and gas in the ostomy. On 08/12/2022 seconds issues with nausea and vomiting. Still with some nausea and vomiting 08/13/2022. Computed tomography scan confirmed a high-grade distal small bowel obstruction with transition point identified presumed related to adhesions. Interval partial colectomy and colostomy changes noted. Nasogastric tube was reinserted. A repeat CAT scan of the abdomen on 08/16/2022 showed persistent transition zone in the upper pelvis could be related to partial obstruction versus ileus. There was also dilated small loops of small bowel improved compared to the earlier CAT scan of the abdomen and pelvis that was done on 08/13/2022. The patient has a functioning colostomy and output is improving. The NG tube has been removed and the patient is tolerating clear liquids and popsicles. No nausea. Surgical wound is intact. The patient is still on antibiotics. Ambulating. The KUB from today shows a nonobstructive bowel gas pattern. Obstructive uropathy post Art catheter insertion. The catheter to be reinserted History of diverticulosis Acute kidney injury, likely secondary to obstructive uropathy. This improves post Art catheter insertion Recent hospitalization for an acute COPD exacerbation back in June 2022, treated and the patient has recovered Advanced COPD with an FEV1 of 26% of predicted, the patient is chronically oxygen and steroid dependent taking prednisone 10 mg by mouth daily. The patient is currently on hydrocortisone IV 25 mg daily basis. Ex-smoker and the patient quit smoking 2 years ago Chronic hypoxic respiratory failure maintained on O2 at 2 L nasal cannula Prostate cancer Acid reflux Plan: Keep Art catheter in place Gradually advance diet as tolerated KUB was noted Stop Lasix Monitor renal function Advance diet as tolerated Colostomy is more functional No abdominal distention CAT scan from yesterday was noted and the patient is improved or partial improvement in the dilatation of the small bowel and the patient is showing some increase operative the colostomy bag. Continue IV Zosyn Continue TPN Continue the current treatment plan We will continue to follow along well
--- NOTE | 2022-08-21 12:49 | P.PN ---
Subjective Progress Note Date: 08/21/22 Principal diagnosis: Patient reports difficulty in tolerating diet. He had emesis. Recommend down grade diet to full liquids. Obtain abdominal x-ray. He did have nausea and vom iting. Objective - Vital Signs Vital signs: Vital Signs Temp 98.2 F 08/21/22 07:28 Pulse 107 H 08/21/22 12:42 Resp 18 08/21/22 07:28 BP 94/59 08/21/22 10:10 Pulse Ox 95 08/21/22 08:46 FiO2 35 08/03/22 12:00 Intake & Output 08/20/22 08/21/22 08/21/22 18:59 06:59 18:59 Intake Total 1048 Output Total 800 Balance 1048 -800 Intake: Intake, IV Titration 1048 Amount Sodium Phosphate 15 mmol 1048 Sodium Chloride 4Meq/ml Vial 30 meq Potassium Chloride 48 meq Magnesium Sulfate gm 0.75 gm Calcium Gluconate 1 gm In Amino Acids 5 %/Dextrose 20 % 1,000 ml @ 80 mls/ hr IV .BY DURATION [facility] Rx #:[id number] Output: Urine 800 Other: Voiding Method Indwelling Catheter - Labs CBC & Chem 7: 08/21/22 05:46 08/21/22 05:46 Labs: Abnormal Lab Results - Last 24 Hours (Table) 08/20/22 08/21/22 08/21/22 Range/Units 16:42 00:02 05:46 RBC 2.99 L (4.30-5.90) m/uL Hgb 9.1 L (13.0-17.5) gm/dL Hct 28.6 L (39.0-53.0) % Sodium (137-145) mmol/L Carbon Dioxide (22-30) mmol/L BUN (9-20) mg/dL Creatinine (0.66-1.25) mg/dL Glucose (74-99) mg/dL POC Glucose (mg/dL) 183 H 142 H (70-110) mg/dL ALT (4-49) U/L Total Protein (6.3-8.2) g/dL Albumin (3.5-5.0) g/dL 08/21/22 08/21/22 08/21/22 Range/Units 05:46 05:59 11:10 RBC (4.30-5.90) m/uL Hgb (13.0-17.5) gm/dL Hct (39.0-53.0) % Sodium 136 L (137-145) mmol/L Carbon Dioxide 31 H (22-30) mmol/L BUN 42 H (9-20) mg/dL Creatinine 1.33 H (0.66-1.25) mg/dL Glucose 127 H (74-99) mg/dL POC Glucose (mg/dL) 148 H 188 H (70-110) mg/dL ALT 55 H (4-49) U/L Total Protein 5.1 L (6.3-8.2) g/dL Albumin 2.7 L (3.5-5.0) g/dL
--- NOTE | 2022-08-21 15:15 | P.PN ---
Subjective Progress Note Date: 08/21/22 (delayed charting seen at 1040) Patient is a 72-year-old male with COPD on home O2 at 3 L, diverticulosis and GERD who initially presented to the ER with complaints of abdominal pain. CT abdomen and pelvis showed acute sigmoid diverticulitis complicated by perforation with pockets of free intraperitoneal air measuring up to 5.5 cm accompanied by trace lower abdominal ascites, secondary small bowel ileus, moderate sized hiatal hernia, mild circumferential distal esophageal wall thick ening, and prostamegaly. Patient was admitted to general surgery and we are consulted for medical management. He underwent sigmoidectomy with end colostomy on 08/02 and was transported to the ICU where he was extubated on 08/03. NG tube was initially removed on 08/09. It was reinserted on 08/13. NG tube was a removed overnight between 08/13-08/14 was then replaced on 08/14. Venous Doppler from 08/14-no evidence of upper extremity DVT, PICC line in place NGT removed on 08/19/22 Patient seen and examined at bedside. He feels a bit more distended and is nervous to eat today as he is worried he will throw up and eat an NG tube replaced. He reports no colostomy output. This is confirmed with the nurse to change the colostomy yesterday and that has been 0. He states that his breathing is better than it was yesterday. Vital signs reviewed General: nontoxic, no distress, appears at stated age Derm: bruising left arm greater than right, improving Cardiovascular: S1S2 reg, no murmur, positive posterior tibial pulse bilateral, Lungs: Decresaed bs bilateral, no rhonchi, no rales , no accessory muscle use Abdominal: soft, nontender to palpation, no guarding, no appreciable organomegaly Ext: no gross muscle atrophy, no edema, no contractures Neuro: CN II-XI grossly intact, no focal neuro deficits Psych: Alert, oriented, appropriate affect Assessment: Post op Small Bowel obstruction vs ileus with transition point on CT Acute perforated diverticulitis with abscess and resolving sepsis- Group B strep and anerobic bacilli Sigmoid colectomy with end colostomy on 08/02/2032 Anemia, iron deficiency likely with acute blood loss Chronic/Resolved Metabolic alkalosis, resolved COPD on chronic prednisone, not in exacerbation Chronic hypoxemic respiratory failure on 2 L home O2 Imaging: EKG ordered and reviewed by myself reveals normal sinus rhythm at a rate of 135, normal access, and normal intervals. KUB ordered and reviewed-overall nonobstructive all gas, continued contrast in the right hemicolon Data Review: Vital signs reviewed temperature 90.2, pulse 65, respirations 18, blood pressure 141/82, O2 sat 90% on 3 L Plan: - Completed Zosyn 20 days -Protonix 40 mg IV daily - Solucortef 25 mg daily D # 6. Once tolerating orals well will resume home predniosne dosing -Continue with bronchdilators -Patient continues to require Dilaudid 0.5 mg every 3 hours as needed for pain -Patient is on TPN day #19 -IV iron D # 3 today and now complete -Pulmonary note reviewed: KUB noted -Surgery note reviewed: difficulty tolerating diet -Infectious disease note reviewed from 08/20/22: monito cloesly off ABX -CBC and BMP in AM DVT prophylaxis: Lovenox This dictation was prepared using Plei voice recognition software. Though every attempt is made to correct errors during during dictation some may still exist. Objective - Vital Signs Vital signs: Vital Signs Temp 98.0 F 08/21/22 14:06 Pulse 105 H 08/21/22 14:06 Resp 17 08/21/22 14:06 BP 104/66 08/21/22 14:06 Pulse Ox 96 08/21/22 14:06 FiO2 35 08/03/22 12:00 Intake & Output 08/20/22 08/21/22 08/21/22 18:59 06:59 18:59 Intake Total 1048 Output Total 800 Balance 1048 -800 Intake: Intake, IV Titration 1048 Amount Sodium Phosphate 15 mmol 1048 Sodium Chloride 4Meq/ml Vial 30 meq Potassium Chloride 48 meq Magnesium Sulfate gm 0.75 gm Calcium Gluconate 1 gm In Amino Acids 5 %/Dextrose 20 % 1,000 ml @ 80 mls/ hr IV .BY DURATION [facility] Rx #:[id number] Output: Urine 800 Other: Voiding Method Indwelling Catheter - Labs CBC & Chem 7: 08/21/22 05:46 08/21/22 05:46 Labs: Abnormal Lab Results - Last 24 Hours (Table) 08/20/22 08/21/22 08/21/22 Range/Units 16:42 00:02 05:46 RBC 2.99 L (4.30-5.90) m/uL Hgb 9.1 L (13.0-17.5) gm/dL Hct 28.6 L (39.0-53.0) % Sodium (137-145) mmol/L Carbon Dioxide (22-30) mmol/L BUN (9-20) mg/dL Creatinine (0.66-1.25) mg/dL Glucose (74-99) mg/dL POC Glucose (mg/dL) 183 H 142 H (70-110) mg/dL ALT (4-49) U/L Total Protein (6.3-8.2) g/dL Albumin (3.5-5.0) g/dL 08/21/22 08/21/22 08/21/22 Range/Units 05:46 05:59 11:10 RBC (4.30-5.90) m/uL Hgb (13.0-17.5) gm/dL Hct (39.0-53.0) % Sodium 136 L (137-145) mmol/L Carbon Dioxide 31 H (22-30) mmol/L BUN 42 H (9-20) mg/dL Creatinine 1.33 H (0.66-1.25) mg/dL Glucose 127 H (74-99) mg/dL POC Glucose (mg/dL) 148 H 188 H (70-110) mg/dL ALT 55 H (4-49) U/L Total Protein 5.1 L (6.3-8.2) g/dL Albumin 2.7 L (3.5-5.0) g/dL
[2022-08-21 16:39] LABS: Glucose,Whole Blood 175 mg/dL (70-110)
[2022-08-21] MEDS: ONDANSETRON 4 MG/2 ML VIAL IVP PRN (20:11)
--- NOTE | 2022-08-21 22:43 | P.PN ---
Subjective Progress Note Date: 08/21/22 Principal diagnosis: Perforated diverticulitis and peritonitis Patient is a 72-year-old male presenting to the hospital abdominal pain has been diagnosed with acute diverticulitis with perforation treated medically did not have improvement subsequently was taken to the OR on 08/02/2022 and the patient is status post laparotomy; colectomy and diverting colostomy. On today's evaluation that is 08/21/2022, the patient remains to be afebrile, patient is breathing comfortably on 3L nasal cannula oxygen, patient denies having any nausea or vomiting, the patient tolerating clear liquid diet, no nausea no vomiting abdominal pain has decreased in intensity , seems to have problem with urinary retention requiring replacement of catheter Objective - Vital Signs Vital signs: Vital Signs Temp 98.0 F 08/21/22 14:06 Pulse 105 H 08/21/22 14:06 Resp 17 08/21/22 14:06 BP 104/66 08/21/22 14:06 Pulse Ox 96 08/21/22 14:06 FiO2 35 08/03/22 12:00 Intake & Output 08/20/22 08/21/22 08/21/22 18:59 06:59 18:59 Intake Total 1048 Output Total 800 Balance 1048 -800 Intake: Intake, IV Titration 1048 Amount Sodium Phosphate 15 mmol 1048 Sodium Chloride 4Meq/ml Vial 30 meq Potassium Chloride 48 meq Magnesium Sulfate gm 0.75 gm Calcium Gluconate 1 gm In Amino Acids 5 %/Dextrose 20 % 1,000 ml @ 80 mls/ hr IV .BY DURATION [facility] Rx #:[id number] Output: Urine 800 Other: Voiding Method Indwelling Catheter - Exam GENERAL DESCRIPTION: An elderly male lying in bed in no distress RESPIRATORY SYSTEM: Unlabored breathing , decreased breath sounds at bases HEART: S1 S2 regular rate and rhythm , ABDOMEN: Soft , no tenderness EXTREMITIES: Did have extensive bruising to the upper extremity especially the left arm - Labs CBC & Chem 7: 08/21/22 05:46 08/21/22 05:46 Labs: Abnormal Lab Results - Last 24 Hours (Table) 08/20/22 08/21/22 08/21/22 Range/Units 16:42 00:02 05:46 RBC 2.99 L (4.30-5.90) m/uL Hgb 9.1 L (13.0-17.5) gm/dL Hct 28.6 L (39.0-53.0) % Sodium (137-145) mmol/L Carbon Dioxide (22-30) mmol/L BUN (9-20) mg/dL Creatinine (0.66-1.25) mg/dL Glucose (74-99) mg/dL POC Glucose (mg/dL) 183 H 142 H (70-110) mg/dL ALT (4-49) U/L Total Protein (6.3-8.2) g/dL Albumin (3.5-5.0) g/dL 08/21/22 08/21/22 08/21/22 Range/Units 05:46 05:59 11:10 RBC (4.30-5.90) m/uL Hgb (13.0-17.5) gm/dL Hct (39.0-53.0) % Sodium 136 L (137-145) mmol/L Carbon Dioxide 31 H (22-30) mmol/L BUN 42 H (9-20) mg/dL Creatinine 1.33 H (0.66-1.25) mg/dL Glucose 127 H (74-99) mg/dL POC Glucose (mg/dL) 148 H 188 H (70-110) mg/dL ALT 55 H (4-49) U/L Total Protein 5.1 L (6.3-8.2) g/dL Albumin 2.7 L (3.5-5.0) g/dL Assessment and Plan (1) Diverticulitis of colon with perforation Current Visit: Yes Status: Acute Code(s): K57.20 - DVTRCLI OF LG INT W PERFORATION AND ABSCESS W/O BLEEDING SNOMED Code(s): 96914928 Plan: 1patient was in the hospital with abdominal pain has been diagnosed with a complicated diverticulitis failing medical therapy and the patient subsequently status post laparotomy sigmoid colectomy and diverting colostomy with concern for secondary peritonitis from perforated sigmoid diverticulitis and need to cover for enteric gram-negative both aerobes and anaerobes 2-patient abdominal cultures grew group B strep and anaerobic gram-negative bacilli 3-the patient remains to be afebrile white count has been normal , CT of abdominal pelvis did shows evidence of high-grade distal small bowel obstruction and is being monitor manage medically, with a repeat CAT scan completed on 08/16/2022 did show some improvement in the area as 4-the patient remains to be afebrile and did have a normal WBC , will monitor closely off antibiotics Time with Patient: Less than 30
[2022-08-21 23:19] LABS: Glucose,Whole Blood 140 mg/dL (70-110)
[2022-08-22] MEDS: HYDROmorphone 1 MG/ML 1 ML SYRINGE IVP PRN ×5 (01:30→21:07)
[2022-08-22 05:40] LABS: Glucose,Whole Blood 163 mg/dL (70-110)
[2022-08-22] MEDS: LACTATED RINGERS 1,000 ML IV SCH (05:47)
[2022-08-22] MEDS: IPRATROPIUM-ALBUTEROL 3 ML NEB INHALATION SCH ×4 (08:02→20:35)
[2022-08-22] MEDS: FORMOTEROL FUMARATE 20 MCG/2 ML NEBU INHALATION SCH ×2 (08:02→20:35)
[2022-08-22] MEDS: BUDESONIDE 1 MG/2 ML NEBU INHALATION SCH ×2 (08:02→20:35)
[2022-08-22] MEDS: PANTOPRAZOLE 40 MG/10 ML VIAL IV SCH (08:31)
[2022-08-22] MEDS: TAMSULOSIN 0.4 MG CAP.ER.24H PO SCH (08:31)
[2022-08-22] MEDS: ENOXAPARIN 40 MG/0.4 ML SYRINGE SQ SCH (08:31)
[2022-08-22] MEDS: HYDROCORTISONE SUCCINATE 100 MG/2 ML VIAL IV SCH (08:32)
[2022-08-22 09:20] LABS: ALT 52 U/L (4-49); AST 37 U/L (17-59); African American GFR (CKD) 80 (>60 ml/min/1.73 sqM); Albumin 2.6 g/dL (3.5-5.0); Albumin/Globulin Ratio 1.1; Alkaline Phosphatase 88 U/L (38-126); Anion Gap 5 mmol/L; Blood Urea Nitrogen 36 mg/dL (9-20); Calcium 8.3 mg/dL (8.4-10.2); Carbon Dioxide 25 mmol/L (22-30); Chloride 106 mmol/L (98-107); Globulin 2.4 g/dL; Glucose 134 mg/dL (74-99); Magnesium 1.9 mg/dL (1.6-2.3); Non-African American GFR(CKD) 70 (>60 ml/min/1.73 sqM); Phosphorus 3.5 mg/dL (2.5-4.5); Potassium 4.7 mmol/L (3.5-5.1); Sodium 136 mmol/L (137-145); Total Bilirubin 0.3 mg/dL (0.2-1.3)
[2022-08-22] MEDS ORDERED: IOPAMIDOL CONTRAST (ORAL USE) VIAL PO PRN (09:58)
[2022-08-22 12:15] LABS: Glucose,Whole Blood 168 mg/dL (70-110)
--- NOTE | 2022-08-22 12:56 | P.PN ---
Subjective Progress Note Date: 08/22/22 CHIEF COMPLAINT: Perforated diverticulitis HISTORY OF PRESENT ILLNESS: Patient is status post sigmoid colectomy with end colostomy for perforated diverticulitis with abscess on 08/02/22. Patient did not tolerate advancement of diet over the weekend. He started to have nausea and vomiting. Diet was downgraded to full liquids. Patient has stopped having output through his ostomy. He has abdominal distention and does report increased abdominal pain. He has been tachycardic. Afebrile. WBC 6.2 yest alethaay Patient seen and examined with Dr. meadows PHYSICAL EXAM: VITAL SIGNS: Reviewed. GENERAL: Well-developed in no acute distress. ABDOMEN: Soft. distended. No output through ostomy. Incision clean dry and intact with abdominal wound with gauze packing NEUROLOGIC: Alert and oriented. Cranial nerves II through XII grossly intact. ASSESSMENT: 1. Abdominal pain with abdominal distention and no output from ostomy 2. Ileus 3. Perforated diverticulitis with abscess status post sigmoid colectomy with end colostomy 4. History of COPD PLAN: -Medicine service has ordered a computed tomography scan of abdomen and pelvis. Further recommendations forthcoming per computed tomography scan results. -Keep patient nothing by mouth -Continue pain management -Continue antibiotics -Continue local wound care -Encouraged patient to increase activity level -DVT prophylaxis [facility] Geropsychologist note has been reviewed by physician. Signing provider agrees with the documented findings, assessment, and plan of care. Objective - Vital Signs Vital signs: Vital Signs Temp 98.7 F 08/22/22 08:54 Pulse 107 H 08/22/22 08:54 Resp 17 08/22/22 08:54 BP 101/61 08/22/22 08:54 Pulse Ox 96 08/22/22 08:54 FiO2 35 08/03/22 12:00 Intake & Output 08/21/22 08/22/22 08/22/22 18:59 06:59 18:59 Intake Total 1032 Output Total 75 Balance 1032 -75 Intake: Intake, IV Titration 1032 Amount Sodium Phosphate 15 mmol 1032 Sodium Chloride 4Meq/ml Vial 30 meq Potassium Chloride 40 meq Magnesium Sulfate gm 0.5 gm Calcium Gluconate 1 gm In Amino Acids 5 %/Dextrose 20 % 1,000 ml @ 80 mls/ hr IV .BY DURATION [facility] Rx #:[id number] Output: Stool 75 Other: Voiding Method Indwelling Catheter Indwelling Catheter # Voids 1 - Labs CBC & Chem 7: 08/21/22 05:46 08/22/22 08:04 Labs: Abnormal Lab Results - Last 24 Hours (Table) 08/21/22 08/21/22 08/22/22 Range/Units 16:38 23:17 05:38 Sodium (137-145) mmol/L BUN (9-20) mg/dL Glucose (74-99) mg/dL POC Glucose (mg/dL) 175 H 140 H 163 H (70-110) mg/dL Calcium (8.4-10.2) mg/dL ALT (4-49) U/L Total Protein (6.3-8.2) g/dL Albumin (3.5-5.0) g/dL 08/22/22 Range/Units 08:04 Sodium 136 L (137-145) mmol/L BUN 36 H (9-20) mg/dL Glucose 134 H (74-99) mg/dL POC Glucose (mg/dL) (70-110) mg/dL Calcium 8.3 L (8.4-10.2) mg/dL ALT 52 H (4-49) U/L Total Protein 5.0 L (6.3-8.2) g/dL Albumin 2.6 L (3.5-5.0) g/dL
--- NOTE | 2022-08-22 13:13 | P.PN ---
Subjective Progress Note Date: 08/22/22 I was asked to evaluate this patient because of his advanced COPD and ongoing abdominal complications. The patient was seen in the emergency department. The patient is known to have diverticulosis he came in for an acute abdominal pain this morning. CAT scan of the abdomen was done and the patient was found to have acute sigmoid diverticulitis. This was a comp acute diverticulitis as perforation suspected and the patient had pockets of free intraperitoneal air measuring up to 5.5 cm in size. There is also trace lower abdominal ascites. No evidence of any abscess formation. Is also small bowel ileus. There is moderate size hiatal hernia also. The patient has a large prostate. Is known to have prostate cancer. The patient is also known to have advanced COPD. The patient is auction dependent. The patient is steroid dependent and is taking 10 mg of prednisone on a daily basis on outpatient basis. He has been followed up through our office. He has exertional dyspnea which is chronic in his significant limitation in exercise capacity because of his advanced COPD. No chest pain. No worsening shortness of breath. No swelling lower extremities. No previous history of DVT or pulmonary embolism. No nausea or emesis. No aspiration. GI surgeries on the case. Currently is on antibiotics. No plans for any surgery at this point in time. Blood work shows a WBC count of 18, he moglobin 13, normal cognition profile, BUN is 20 over the creatinine of 0.9. LFTs are normal. Lactic acid level is at 1.3. On today's evaluation of 07/30/2022, the patient's abdomen is less tender. The patient remains nothing by mouth. No worsening shortness of breath. The patient is on IV Zosyn. The patient is going to be treated conservatively. White cell count is at 14 with a hemoglobin of 11.1 and a platelet count of 245 noted the white cycles lower compared to yesterday. BUN is at 21 with a creatinine of 1.3. Sodium is at 143. Awake and alert and communicating. He remains on oxygen at 2 L/m nasal cannula. On 07/31/2022, the patient is doing well. No specific complaints. Abdominal pain is subsiding gradually. His COPD remains on IV Zosyn. No plans for any surgical intervention this point in time. The patient is known to have advanced COPD and the patient also has oxygen steroid dependent COPD and the patient is currently on hydrocortisone. IV fluids are in the form of D5 half-normal saline at rate of 100 mL an hour. The white cell count is down to 8.2 with hemoglobin 11.5 and a platelet count of 15. BUN is at 60 with a creatinine of 1 and his sodium level is at 137. The patient is seen today 08/01/2022 in follow-up on the regular medical floor. He is currently sitting up in bed. Awake and alert in no acute distress. Maintaining O2 saturations in the 90s on 2 L/m per nasal cannula. Currently on D5.45 normal saline at 100 ML's per hour. He is continued on Zosyn. His abdominal discomfort is gradually improving. Follow-up chest x-ray continues to show diffuse severe emphysematous changes with coarsened interstitium suspicious for chronic interstitial lung disease. Blood culture reveals no growth. White count 8.1. Hemoglobin 10.5. Platelets 225. Sodium 142. Potassium 3.9. Bicarb 26. BUN 11. Creatinine 1.0. Glucose 165. ProBNP 1500. Troponin negative 1. AST 12. ALT 13. Alk phos 39. Continued on DuoNeb inhalations. Lovenox for DVT prophylaxis. Remains on Solu-Cortef. The patient is seen today 08/02/2022 in follow-up on the regular medical floor. He is awake and alert in no acute distress. Resting fairly comfortably in bed. Maintaining good O2 saturations in the 90s on 2 L/m per nasal cannula. He is receiving D5 and half-normal saline at 100 ML's per hour. Remains on antibiotics in the form of Zosyn. Lovenox for DVT prophylaxis. Continued on Solu-Cortef. His abdominal discomfort is waxing and waning. A little more tender today. He remains nothing by mouth. Blood cultures revealed no growth. Blood glucose 151. Reevaluated today on 08/03/22, patient underwent sigmoid colectomy and end colostomy yesterday by Dr. Moyer mostly because of his sigmoid diverticulitis with perforation and abscess, patient came back to the ICU on mechanical ventilation. Remains intubated and mechanically ventilated. Patient is known to have severe end-stage COPD FEV1 is no more than 26%, however the benefits of the surgery obviously outweighed the risks. And surgery had to be done yesterday because the patient continued to have significant abdominal pain and tenderness. Patient is now on assist control rate of 16, volume 400 FiO2 50% and PEEP of 5, ABG showed a pO2 of 251 pCO2 42 pH of 7.45. His chest x-ray is showing minimal atelectasis, no infiltrate, no evidence of congestive heart failure, his electrolytes are normal renal profile is normal, CBC is relatively unremarkable. Hence I cut down his FiO2 to 35%, patient remains on enteral are at 100 mL an hour he is also on propofol at 50 mcg/kg/m, I have recommended stopping propofol, and was the patient is awake we will recommend checking weani ng parameters, and if reasonable proceed with a pressure support and CPAP with a pressure support of 10, follow-up ABG in 1 hour after being on pressure support and CPAP, and we will likely consider extubation later today. Reevaluated today on 08/04/2022, patient remains in the ICU, he is status post sigmoid colectomy and end colostomy with severe underlying COPD. FEV1 is in the range of 26%, surprisingly the patient is doing better than expected. Patient remains on 4 L nasal cannula with adequate O2 saturation, his ostomy is functioning well, remains on Zosyn, his also on TPN at 50 mL per hour. WBC count is 9.1 hemoglobin is 10.9. Basic metabolic profile is normal renal profile is normal. Chest x-ray yesterday showed minimal interstitial findings and COPD Reevaluated today on 08/05/2022, patient remains in the ICU, doing well, relatively asymptomatic, his ostomy is functioning well, pulmonary status is relatively stable in spite of its severity patient denies any abdominal pain, no shortness of breath, his labs were relatively normal including normal CBC and normal electrolytes normal renal profile hence I will transfer the patient out of the ICU to a regular medical floor. Reevaluated today on 08/06/2022, patient had his nasogastric tube removed yesterday, however he developed abdominal distention and a nasogastric tube was placed back again today significant amount of fluid was noted are of the stomach over 900 mL. Patient felt better nonetheless he remains a bit bloated, now he has a nasogastric tube back in place. Considering his symptoms I'm recommending that we keep him in the ICU today. Pulmonary-[facility] he is doing well in spite of his severe underlying COPD. Labs today showed relatively normal CBC and a relatively normal electrolytes bicarb is 33 BUN is 24 creatinine 0.89. Patient was seen by surgery today/Dr. gurrola, and he is recommending to keep the nasogastric tube in place. Patient was reevaluated today on 08/07/2022, feels less bloated, nasogastric tube remains in place and functional, his colostomy is also functional, he had 450 of NG output overnight. He is afebrile, WBC count is 6.1. Pulmonary-[facility] he is about the same, he has severe COPD but surprisingly not as symptomatic as expected. WBC count 6.1 hemoglobin 10.9 lites are normal renal profile is normal bicarb is 37 The patient is seen today 08/08/2022 in follow-up on the regular medical floor. He has moved out of the ICU yesterday. He is awake and alert in no acute distre ss. Maintaining good O2 saturations in the mid 90s on 3 L/m per nasal cannula. Afebrile. Hemodynamically stable. Nasogastric tube remains in place. Abdominal wound cultures are positive for gram-negative bacilli. Sputum culture revealed no growth. Blood culture reveals no growth. Sodium 137. Potassium 4.0. Bicarb 36. BUN 25. Creatinine 0.95. Glucose 134. She is continued on DuoNeb inhalations, Pulmicort and Perforomist inhalations, Solu-Cortef. Lovenox for DVT prophylaxis. Remains on TPN for nutritional support at 75 ML's per hour. Antibiotics in the form of Zosyn. The patient is seen today 08/09/2022 in follow-up on the regular medical floor. He is currently resting quite comfortably in bed. Awake and alert in no acute distress. Currently on oxygen at 3 L/m per nasal cannula. Being nourished with TPN at 75 ML's per hour. He is receiving lactated Ringer's at 100 ML's per hour. He has some lower extremity edema. White sodium 137. Potassium 3.9. Bicarb 34. BUN 24. Creatinine 1.00. Glucose 136. Abdominal cultures were positive for anaerobic gram-negative bacilli. Sputum culture revealed no growth. He is continued on DuoNeb inhalations, Pulmicort and Perforomist inhalations. Working well with the incentive spirometer. The patient is seen today 08/10/2022 in follow-up on the regular medical floor. He is currently sitting up in bed. Awake and alert in no acute distress. Maintaining good O2 saturations in the 90s on 3 L/m per nasal cannula. Sodium 139. Potassium 3.8. Bicarb 32. BUN 25. Creatinine 1.08. Glucose 127. He is continued on DuoNeb inhalations, Pulmicort and Perforomist inhalations. Chest x-ray showing some atelectasis. Working well with the incentive spirometer. Remains on Lovenox for DVT prophylaxis. His nasogastric tube has been removed. Abdominal x-ray revealed diffusely dilated small bowel loops measuring up to 4.5 cm suggesting postoperative ileus. He remains nothing by mouth except for ice chips per surgical services. Being nourished with TPN at 75 ML's per hour. Patient is seen today 08/11/2022 in follow-up on the regular medical floor. He is resting comfortably in bed. Awake and alert in no acute distress. Maintaining O2 saturations in the 90s on 3 L/m per nasal cannula. He is lactated Ringer's at 10 and I'll's per hour. He is receiving TPN at 75 ML's per hour. He remains on a full liquid diet. Tolerating it well. Ostomy functioning. Blood cultures revealed no growth. Abdominal wound cultures were positive for gram-negative bacilli. Sputum culture revealed no growth. Sodium 139. Potassium 3.7. Bicarb 32. BUN 25. Creatinine 1.02. Glucose 113. He is continued on DuoNeb inhalations, Pulmicort and Perforomist inhalations. The patient is seen today 08/12/2022 in follow-up on the regular medical floor. He is currently resting in bed. He is awake and alert in no acute distress. Maintaining O2 saturations in the 90s on 3 L/m per nasal cannula. Unfortunately he is quite nauseated and has been vomiting on and off since 6 PM last night. Uncomfortable. His abdomen is soft. Colostomy is functioning. Possible ileus. No worsening shortness of breath, cough or congestion. He is continued on DuoNeb inhalations, Pulmicort and Perforomist inhalations, IV Solu-Cortef. He is on antibiotics in the form of Zosyn. White count 10.0. Hemoglobin 11.1. Platelets 443. Sodium 140. Potassium 3.7. Bicarb 36. BUN 23. Creatinine 1.04. Glucose 112. The patient is seen today 08/13/2022 in follow-up on the regular medical floor. He is awake and alert in no acute distress. He is still having ongoing issues with nausea and vomiting. Denies any worsening of breath, cough or congestion. Maintaining good O2 saturations in the 90s liters per minute per nasal cannula. An computed tomography scan of the chest abdomen pelvis with contrast is pending per surgical services. Nasogastric tube to be reinserted. Sodium 138. Potassium 3.5. Bicarb 35. BUN 32. Creatinine 1.16. Glucose 195. He remains on DuoNeb inhalations, Pulmicort and Perforomist inhalations, Solu-Cortef. Being nourished with TPN at 60 ML's per hour. Lactated Ringer's at 20 MLS per hour. He remains on antibiotics in the form of Zosyn. Lovenox for DVT prophylaxis. The patient is seen today 08/14/2022 in follow-up on the regular medical floor. He is currently resting in bed. Awake and alert in no acute distress. He is having ongoing issues with abdominal distention and nausea. He's had 2 NG tubes replaced and was subsequent inadvertentaccidental removal. Computed tomography scan of the abdomen revealed high-grade distal small bowel obstruction with transition point identified presumed related to adhesions. Interval partial colectomy and colostomy changes noted. Plan is to replace the NG tube again and keep him nothing by mouth. He is maintaining good O2 saturations in the mid 90s on 3 L nasal cannula. Continued on bronchodilators. Continued on TPN. The patient is seen today 08/15/2022 in follow-up on the regular medical floor. He is awake and alert in no acute distress. Feeling better since the nasogastric tube was placed. No nausea or vomiting. Still with some abdominal tenderness. Ostomy has a small amount of stool in it. The left-sided PICC line in place. No evidence of left upper extremity DVT per Doppler. Chest x-ray revealed evidence of COPD but no acute pulmonary process. Nasogastric tube in appropriate place. Abdominal wound cultures revealed gram-negative bacilli. Strep agalactiae, group B. White count 6.1. Hemoglobin 7.7. Platelets 339. Sodium 141. Potassium 3.2. Bicarb 30. BUN 31. Creatinine 1.19. Glucose 118. He remains on TPN, lipids for nutritional support. Remains on antibiotics in the form of Zosyn. Continued on bronchodilators, site Cortef. Remains on IV diuretics. Currently in a -4.8 L balance. The patient is seen today 08/22/2022 in follow-up on the regular medical floor. He again had a nasogastric tube removed. Still was somewhat distended abdomen. Still with some abdominal discomfort. No output in the ostomy currently. Computed tomography scan of the abdomen and pelvis is pending. He is being nourished with TPN at 80 MLS per hour. Sodium 136. Potassium 4.7. Bicarb 25. BUN 36. Creatinine 1.07. Glucose 134. He is maintaining good O2 saturations in the mid to upper 90s on 3 L/m per nasal cannula. He is afebrile. He is continued on DuoNeb inhalations, Pulmicort and Perforomist inhalations, Solu- Cortef. Lovenox for DVT prophylaxis. Objective - Vital Signs Vital signs: Vital Signs Temp 98.7 F 08/22/22 08:54 Pulse 100 08/22/22 13:01 Resp 17 08/22/22 08:54 BP 101/61 08/22/22 08:54 Pulse Ox 96 08/22/22 08:54 FiO2 35 08/03/22 12:00 Intake & Output 08/21/22 08/22/22 08/22/22 18:59 06:59 18:59 Intake Total 1032 Output Total 75 Balance 1032 -75 Weight 73.4 kg Intake: Intake, IV Titration 1032 Amount Sodium Phosphate 15 mmol 1032 Sodium Chloride 4Meq/ml Vial 30 meq Potassium Chloride 40 meq Magnesium Sulfate gm 0.5 gm Calcium Gluconate 1 gm In Amino Acids 5 %/Dextrose 20 % 1,000 ml @ 80 mls/ hr IV .BY DURATION [facility] Rx #:[id number] Output: Stool 75 Other: Voiding Method Indwelling Catheter Indwelling Catheter # Voids 1 - Exam GENERAL EXAM: Alert, pleasant 72-year-old male, on 3 L nasal cannula, currently with some abdominal discomfort. HEAD: Normocephalic. EYES: Normal reaction of pupils, equal size. NOSE: Nasogastric tube currently in place. Clear with pink turbinates. THROAT: No erythema or exudates. NECK: No masses, no JVD. CHEST: No chest wall deformity. LUNGS: Equal air entry with bilateral end expiratory wheeze, diminished. CVS: S1 and S2 normal with no audible murmur, regular rhythm. ABDOMEN: Postsurgical changes. Ostomy intact. No output currently. Abdominal distention and discomfort. SPINE: No scoliosis or deformity SKIN: No rashes CENTRAL NERVOUS SYSTEM: No focal deficits, tone is normal in all 4 extremities. EXTREMITIES: There is no peripheral edema. No clubbing, no cyanosis. Peripheral pulses are intact. - Labs CBC & Chem 7: 08/21/22 05:46 08/22/22 08:04 Labs: Abnormal Lab Results - Last 24 Hours (Table) 08/21/22 08/21/22 08/22/22 Range/Units 16:38 23:17 05:38 Sodium (137-145) mmol/L BUN (9-20) mg/dL Glucose (74-99) mg/dL POC Glucose (mg/dL) 175 H 140 H 163 H (70-110) mg/dL Calcium (8.4-10.2) mg/dL ALT (4-49) U/L Total Protein (6.3-8.2) g/dL Albumin (3.5-5.0) g/dL 08/22/22 08/22/22 Range/Units 08:04 12:13 Sodium 136 L (137-145) mmol/L BUN 36 H (9-20) mg/dL Glucose 134 H (74-99) mg/dL POC Glucose (mg/dL) 168 H (70-110) mg/dL Calcium 8.3 L (8.4-10.2) mg/dL ALT 52 H (4-49) U/L Total Protein 5.0 L (6.3-8.2) g/dL Albumin 2.6 L (3.5-5.0) g/dL Assessment and Plan Assessment: Acute perforated sigmoid diverticulitis with abscess, status post sigmoid colectomy and end colostomy on 08/02/2022. Nasogastric tube removed. Abdominal x-ray revealed diffusely dilated small bowel loops measuring up to 4.5 cm suggesting postoperative ileus. There is liquid stool and gas in the ostomy. On 08/12/2022 seconds issues with nausea and vomiting. Still with some nausea and vomiting 08/13/2022. Computed tomography scan confirmed a high-grade distal small bowel obstruction with transition point identified presumed related to a dhesions. Interval partial colectomy and colostomy changes noted. Nasogastric tube was reinserted. A repeat CAT scan of the abdomen on 08/16/2022 showed persistent transition zone in the upper pelvis could be related to partial obstruction versus ileus. There was also dilated small loops of small bowel improved compared to the earlier CAT scan of the abdomen and pelvis that was done on 08/13/2022. The patient again is having abdominal discomfort and distention today 08/22/2022 and computed tomography scan of the abdomen and pelvis is pending. Nothing by mouth. Remains on TPN for nutritional support. Obstructive uropathy post Art catheter removal. The catheter was reinserted History of diverticulosis Recent hospitalization for an acute COPD exacerbation back in June 2022, treat ed and the patient has recovered Advanced COPD with an FEV1 of 26% of predicted, the patient is chronically oxygen and steroid dependent taking prednisone 10 mg by mouth daily. Ex-smoker and the patient quit smoking 2 years ago Chronic hypoxic respiratory failure maintained on O2 at 2 L nasal cannula Prostate cancer Acid reflux Plan: The patient was seen and evaluated Medications and labs reviewed Recurrent abdominal distention and discomfort Computed tomography scan of the abdomen and pelvis pending Continue DuoNeb's, Perforomist and Pulmicort inhalations Continue Solu-Cortef Lovenox for DVT prophylaxis Remains on TPN/lipids We will continue to follow I have personally seen and examined the patient, performed the documentation and the assessment and plan as written. Number of minutes spent on the visit: 10.
[2022-08-22 13:17] LABS: Basophils % (A) 1 %; Eosinophils # (A) 0.1 k/uL (0-0.7); Eosinophils % (A) 1 %; HCT 25.4 % (39.0-53.0); HGB 7.8 gm/dL (13.0-17.5); Hypochromasia Marked; Lymphocytes # (A) 1.1 k/uL (1.0-4.8); Lymphocytes % (A) 18 %; MCH 30.2 pg (25.0-35.0); MCHC 30.9 g/dL (31.0-37.0); MCV 97.7 fL (80.0-100.0); Mean Platelet Volume 8.3; Monocytes # (A) 0.3 k/uL (0-1.0); Monocytes % (A) 5 %; Neutrophils # (A) 4.5 k/uL (1.3-7.7); Neutrophils % (A) 74 %; Platelet Count 245 k/uL (150-450); RDW 15.1 % (11.5-15.5); WBC 6.1 k/uL (3.8-10.6)
--- NOTE | 2022-08-22 13:17 | CT ---
EXAMINATION TYPE: CT abdomen pelvis wo con DATE OF EXAM: 08/22/2022 HISTORY: DIstention, obstruction CT DLP: 424.8 mGycm. Automated Exposure Control for Dose Reduction was Utilized. TECHNIQUE: CT scan of the abdomen and pelvis is performed with oral but without IV contrast. COMPARISON: CT abdomen and pelvis August 16, 2022 FINDINGS: Within the limitations of a non-contrast study, the following observations are made. LUNG BASES: Improved left-sided pleural effusion. Persistent mild/moderate bibasilar linear scarring and/or atelectasis. Stable tiny anterior inferior pericardial effusion. LIVER/GB: No significant abnormality is appreciated. PANCREAS: No significant abnormality is seen. SPLEEN: Punctate calcifications throughout the spleen consistent with product of old granulomatous di sease are redemonstrated. ADRENALS: No significant abnormality is seen. KIDNEYS: No renal stones or hydronephrosis is present bilaterally. Art catheter within bladder is s een. Bladder is not completely empty. BOWEL: Oral contrast reaches level of the left sided colostomy. There is no abnormal small or large b owel dilatation currently. There is remnant sigmoid rectal pouch redemonstrated. GENITAL ORGANS: Enlarged prostate consistent with BPH is redemonstrated. LYMPH NODES: No greater than 1cm abdominal or pelvic lymph nodes are appreciated. OSSEOUS STRUCTURES: Moderate to severe disc space narrowing L2-L3, L4-L5, and L5-S1 levels redemonstr ated. Slight grade 1 retrolisthesis L2 on L3 and L4 on L5 redemonstrated. OTHER: Overlying anterior midline vertical oriented skin talya are redemonstrated. Moderate calcifi ed plaque of the aorta extends into branch vessels. Small fat-containing left inguinal hernia. Mild t o moderate diffuse subcutaneous edema is improved from prior study IMPRESSION: No bowel obstruction currently. No new ascites. Resolved small left pleural effusion. Imp roved soft tissue subcutaneous edema noted.
--- NOTE | 2022-08-22 13:52 | P.PN ---
Subjective Progress Note Date: 08/22/22 (delayed charting seen at 0930) Patient is a 72-year-old male with COPD on home O2 at 3 L, diverticulosis and GERD who initially presented to the ER with complaints of abdominal pain. CT abdomen and pelvis showed acute sigmoid diverticulitis complicated by perforation with pockets of free intraperitoneal air measuring up to 5.5 cm accompanied by trace lower abdominal ascites, secondary small bowel ileus, moderate sized hiatal hernia, mild circumferential distal esophageal wall thick ening, and prostamegaly. Patient was admitted to general surgery and we are consulted for medical management. He underwent sigmoidectomy with end colostomy on 08/02 and was transported to the ICU where he was extubated on 08/03. NG tube was initially removed on 08/09. It was reinserted on 08/13. NG tube was a removed overnight between 08/13-08/14 was then replaced on 08/14. Venous Doppler from 08/14-no evidence of upper extremity DVT, PICC line in place NGT removed on 08/19/22 Patient seen and examined at bedside. He reports feeling more full today and having some increased abdominal pain. He just feels not well overall compared to yesterday. He also states that despite having a diet he has not drank much because he is very worried about vomiting and having have an NG tube reinserted. At this point in time he does not want an NG tube reinserted. Vital signs reviewed General: nontoxic, no distress, appears at stated age Derm: bruising left arm greater than right, improving Cardiovascular: S1S2 reg, no murmur, positive posterior tibial pulse bilateral, Lungs: Decresaed bs bilateral, no rhonchi, no rales , no accessory muscle use Abdominal: soft, nontender to palpation, no guarding, no appreciable organomegaly Ext: no gross muscle atrophy, no edema, no contractures Neuro: CN II-XI grossly intact, no focal neuro deficits Psych: Alert, oriented, appropriate affect Assessment: Post op Small Bowel obstruction vs ileus with transition point on CT Acute perforated diverticulitis with abscess and resolving sepsis- Group B strep and anerobic bacilli Sigmoid colectomy with end colostomy on 08/02/2032 Anemia, iron deficiency likely with acute blood loss Chronic/Resolved Metabolic alkalosis, resolved COPD on chronic prednisone, not in exacerbation Chronic hypoxemic respiratory failure on 2 L home O2 Imaging: None new Data Review: Vital signs reviewed temperature 98.7, pulse 107, respirations 117, overnight pulse when up to 128, blood pressure 101/61, O2 sat 96% on 3 L Laboratory analysis reviewed hemoglobin 7.8 (down from 9.1), sodium 136, po tassium 4.7, BUN 36, creatinine 1.07 down from 1.33. Plan: -Case discussed with Dr. Moyer. Patient has had no ostomy output since Monday. We'll proceed with CT abdomen and pelvis with oral contrast -CT abdomen and pelvis ordered and then reviewed: Normal bowel traction currently, no new ascites, small left pleural effusion, improved soft tissue subcutaneous edema. - Completed Zosyn 20 days - Solucortef 25 mg daily D # 7. Once tolerating orals well will resume home predniosne dosing -Protonix 40 mg IV daily -Continue with bronchdilators -Patient continues to require Dilaudid 0.5 mg every 3 hours as needed for pain -Patient is on TPN day #20 - Completed 3 days of IV iron -Pulmonary note reviewed: no new recommendations -Infectious disease note reviewed from 08/20/22: monitor closely off ABX -CBC and BMP in AM DVT prophylaxis: Lovenox This dictation was prepared using [employer] voice recognition software. Though every attempt is made to correct errors during during dictation some may still exist. Objective - Vital Signs Vital signs: Vital Signs Temp 98.7 F 08/22/22 08:54 Pulse 100 08/22/22 13:01 Resp 17 08/22/22 08:54 BP 101/61 08/22/22 08:54 Pulse Ox 96 08/22/22 08:54 FiO2 35 08/03/22 12:00 Intake & Output 08/21/22 08/22/22 08/22/22 18:59 06:59 18:59 Intake Total 1032 Output Total 75 Balance 1032 -75 Weight 73.4 kg Intake: Intake, IV Titration 1032 Amount Sodium Phosphate 15 mmol 1032 Sodium Chloride 4Meq/ml Vial 30 meq Potassium Chloride 40 meq Magnesium Sulfate gm 0.5 gm Calcium Gluconate 1 gm In Amino Acids 5 %/Dextrose 20 % 1,000 ml @ 80 mls/ hr IV .BY DURATION [facility] Rx #:[id number] Output: Stool 75 Other: Voiding Method Indwelling Catheter Indwelling Catheter # Voids 1 - Labs CBC & Chem 7: 08/22/22 08:04 08/22/22 08:04 Labs: Abnormal Lab Results - Last 24 Hours (Table) 08/21/22 08/21/22 08/22/22 Range/Units 16:38 23:17 05:38 RBC (4.30-5.90) m/uL Hgb (13.0-17.5) gm/dL Hct (39.0-53.0) % MCHC (31.0-37.0) g/dL Sodium (137-145) mmol/L BUN (9-20) mg/dL Glucose (74-99) mg/dL POC Glucose (mg/dL) 175 H 140 H 163 H (70-110) mg/dL Calcium (8.4-10.2) mg/dL ALT (4-49) U/L Total Protein (6.3-8.2) g/dL Albumin (3.5-5.0) g/dL 08/22/22 08/22/22 08/22/22 Range/Units 08:04 08:04 12:13 RBC 2.60 L (4.30-5.90) m/uL Hgb 7.8 L (13.0-17.5) gm/dL Hct 25.4 L (39.0-53.0) % MCHC 30.9 L (31.0-37.0) g/dL Sodium 136 L (137-145) mmol/L BUN 36 H (9-20) mg/dL Glucose 134 H (74-99) mg/dL POC Glucose (mg/dL) 168 H (70-110) mg/dL Calcium 8.3 L (8.4-10.2) mg/dL ALT 52 H (4-49) U/L Total Protein 5.0 L (6.3-8.2) g/dL Albumin 2.6 L (3.5-5.0) g/dL
[2022-08-22] MEDS: FAT EMULSION 20% 250 ML in EMPTY BAG 1 BAG IV SCH (16:26)
[2022-08-22 18:39] LABS: Glucose,Whole Blood 140 mg/dL (70-110)
[2022-08-22] MEDS: MIRTAZAPINE 15 MG TAB PO SCH (21:09)
[2022-08-23 01:48] LABS: Glucose,Whole Blood 168 mg/dL (70-110)
[2022-08-23] MEDS: HYDROmorphone 0.5 MG/0.5 ML SYRINGE IVP PRN ×3 (03:18→21:09)
[2022-08-23] MEDS: LACTATED RINGERS 1,000 ML IV SCH (05:57)
[2022-08-23 06:49] LABS: Glucose,Whole Blood 136 mg/dL (70-110)
[2022-08-23] MEDS: HYDROCORTISONE SUCCINATE 100 MG/2 ML VIAL IV SCH (08:24)
[2022-08-23] MEDS: ENOXAPARIN 40 MG/0.4 ML SYRINGE SQ SCH (08:25)
[2022-08-23] MEDS: PANTOPRAZOLE 40 MG/10 ML VIAL IV SCH (08:25)
[2022-08-23] MEDS: TAMSULOSIN 0.4 MG CAP.ER.24H PO SCH ×2 (08:25→21:08)
[2022-08-23] MEDS ORDERED: ACETAMINOPHEN TAB 325 MG TAB PO PRN (08:27)
[2022-08-23 09:48] LABS: Basophils % (A) 0 %; Eosinophils # (A) 0.1 k/uL (0-0.7); Eosinophils % (A) 1 %; HCT 25.2 % (39.0-53.0); HGB 8.3 gm/dL (13.0-17.5); Hypochromasia Slight; Lymphocytes # (A) 1.2 k/uL (1.0-4.8); Lymphocytes % (A) 16 %; MCH 30.8 pg (25.0-35.0); MCHC 32.8 g/dL (31.0-37.0); MCV 93.9 fL (80.0-100.0); Mean Platelet Volume 7.8; Monocytes # (A) 0.4 k/uL (0-1.0); Monocytes % (A) 5 %; Neutrophils % (A) 76 %; Platelet Count 248 k/uL (150-450); RBC 2.68 m/uL (4.30-5.90); RDW 15.1 % (11.5-15.5); WBC 7.9 k/uL (3.8-10.6)
[2022-08-23 09:51] LABS: ALT 50 U/L (4-49); AST 38 U/L (17-59); African American GFR (CKD) >90 (>60 ml/min/1.73 sqM); Albumin 2.7 g/dL (3.5-5.0); Albumin/Globulin Ratio 1.1; Alkaline Phosphatase 99 U/L (38-126); Anion Gap 7 mmol/L; Blood Urea Nitrogen 26 mg/dL (9-20); Calcium 8.3 mg/dL (8.4-10.2); Carbon Dioxide 25 mmol/L (22-30); Chloride 102 mmol/L (98-107); Globulin 2.4 g/dL; Glucose 126 mg/dL (74-99); Magnesium 1.7 mg/dL (1.6-2.3); Non-African American GFR(CKD) 80 (>60 ml/min/1.73 sqM); Phosphorus 3.4 mg/dL (2.5-4.5); Potassium 4.6 mmol/L (3.5-5.1); Sodium 134 mmol/L (137-145); Total Bilirubin 0.5 mg/dL (0.2-1.3); Total Protein 5.1 g/dL (6.3-8.2)
[2022-08-23] MEDS ORDERED: IBUPROFEN 400 MG TAB PO PRN (10:01)
[2022-08-23] MEDS: BUDESONIDE 1 MG/2 ML NEBU INHALATION SCH ×2 (10:02→20:55)
[2022-08-23] MEDS: FORMOTEROL FUMARATE 20 MCG/2 ML NEBU INHALATION SCH ×2 (10:02→20:55)
[2022-08-23] MEDS: IPRATROPIUM-ALBUTEROL 3 ML NEB INHALATION SCH ×4 (10:02→20:55)
--- NOTE | 2022-08-23 10:47 | P.PN ---
Subjective Progress Note Date: 08/23/22 Patient is a 72-year-old male with COPD on home O2 at 3 L, diverticulosis and GERD who initially presented to the ER with complaints of abdominal pain. CT abdomen and pelvis showed acute sigmoid diverticulitis complicated by perforation with pockets of free intraperitoneal air measuring up to 5.5 cm accompanied by trace lower abdominal ascites, secondary small bowel ileus, moderate sized hiatal hernia, mild circumferential distal esophageal wall thickening, and prostamegaly. Patient was admitted to general surgery and we are consulted for medical management. He underwent sigmoidectomy with end colostomy on 08/02 and was transported to the ICU where he was extubated on 08/03. NG tube was initially removed on 08/09. It was reinserted on 08/13. NG tube was a removed overnight between 08/13-08/14 was then replaced on 08/14. Venous Doppler from 08/14-no evidence of upper extremity DVT, PICC line in place NGT removed on 08/19/22 CT abdomen and pelvis 08/22/22 Normal bowel traction currently, no new ascites, small left pleural effusion, improved soft tissue subcutaneous edema. Patient seen and examined at bedside. He overall is not feeling well. He ate some pudding and yogurt for breakfast. Pain is well controlled. He does feel his breathing is slightly worse than yesterday. Vital signs reviewed General: nontoxic, no distress, appears at stated age Derm: Multiple areas of Ecchymosis in various stages of healing Cardiovascular: S1S2 reg, no murmur, positive posterior tibial pulse bilateral, Lungs: Coarse bs bilateral, no rhonchi, no rales , no accessory muscle use Abdominal: soft, nontender to palpation, no guarding, no appreciable organomegaly Ext: no gross muscle atrophy, no edema, no contractures Neuro: CN II-XI grossly intact, no focal neuro deficits Psych: Alert, oriented, appropriate affect Assessment: Post op Small Bowel obstruction vs ileus with transition point on CT SIRS cirteria 2/4 temp and HR. Acute perforated diverticulitis with abscess and resolving sepsis- Group B strep and anerobic bacilli Sigmoid colectomy with end colostomy on 08/02/2032 Anemia, iron deficiency likely with acute blood loss Chronic/Resolved Metabolic alkalosis, resolved COPD on chronic prednisone, not in exacerbation Chronic hypoxemic respiratory failure on 2 L home O2 Imaging: as below Data Review: Vital signs reviewed temperature maximum last 24 hours 102.7, pulse 124, respirations 18, blood pressure 115/63, O2 sat 98% on 3 L Labs reviewed and remarkable for hemoglobin 8.3, sodium 134, BUN 26, blood sugar 136, AST 50 Plan: - Await further surgery recs - Given new onset Pyrexia stat chest x-ray was ordered and reviewed by myself which reveals chronic COPD changes but no acute process. Awaiting formal radiology read. Check blood cultre and one from PICC line, PICC no longer needed at this time and will discontinue one adaquate IV access obtained. -I encouraged patient to participate actively in pulmonary hygiene. - Completed Zosyn 20 days - Solucortef 25 mg daily D # 8. transition to prednisone -Protonix 40 mg IV daily -Continue with bronchdilators -Patient continues to require Dilaudid 0.5 mg every 3 hours as needed for pain -Patient is on TPN day #21. Will be completed today - Completed 3 days of IV iron -Pulmonary note reviewed: no new recommendations -Infectious disease note reviewed from 08/20/22: monitor closely off ABX -CBC and BMP in AM DVT prophylaxis: Lovenox This dictation was prepared using [employer] voice recognition software. Though every attempt is made to correct errors during during dictation some may still exist. Objective - Vital Signs Vital signs: Vital Signs Temp 100.3 F H 08/23/22 09:28 Pulse 116 H 08/23/22 10:26 Resp 18 08/23/22 08:25 BP 115/63 08/23/22 07:16 Pulse Ox 98 08/23/22 07:16 FiO2 35 08/03/22 12:00 Intake & Output 08/22/22 08/23/22 08/23/22 18:59 06:59 18:59 Intake Total 1100.000 Output Total 75 1775 Balance 1025.000 -1775 Weight 73.4 kg Intake: Intake, IV Titration 1100.000 Amount Sodium Phosphate 15 mmol 1100.000 Sodium Chloride 4Meq/ml Vial 30 meq Potassium Chloride 40 meq Magnesium Sulfate gm 0.5 gm Calcium Gluconate 1 gm In Amino Acids 5 %/Dextrose 20 % 1,000 ml @ 80 mls/ hr IV .BY DURATION [facility] Rx #:[id number] Output: Urine 1775 Stool 75 Other: Voiding Method Indwelling Catheter Urinal - Labs CBC & Chem 7: 08/23/22 09:10 08/23/22 09:10 Labs: Abnormal Lab Results - Last 24 Hours (Table) 08/22/22 08/22/22 08/22/22 Range/Units 08:04 12:13 18:37 RBC 2.60 L (4.30-5.90) m/uL Hgb 7.8 L (13.0-17.5) gm/dL Hct 25.4 L (39.0-53.0) % MCHC 30.9 L (31.0-37.0) g/dL Sodium (137-145) mmol/L BUN (9-20) mg/dL Glucose (74-99) mg/dL POC Glucose (mg/dL) 168 H 140 H (70-110) mg/dL Calcium (8.4-10.2) mg/dL ALT (4-49) U/L Total Protein (6.3-8.2) g/dL Albumin (3.5-5.0) g/dL 08/23/22 08/23/22 08/23/22 Range/Units 01:43 06:48 09:10 RBC (4.30-5.90) m/uL Hgb (13.0-17.5) gm/dL Hct (39.0-53.0) % MCHC (31.0-37.0) g/dL Sodium 134 L (137-145) mmol/L BUN 26 H (9-20) mg/dL Glucose 126 H (74-99) mg/dL POC Glucose (mg/dL) 168 H 136 H (70-110) mg/dL Calcium 8.3 L (8.4-10.2) mg/dL ALT 50 H (4-49) U/L Total Protein 5.1 L (6.3-8.2) g/dL Albumin 2.7 L (3.5-5.0) g/dL 08/23/22 Range/Units 09:10 RBC 2.68 L (4.30-5.90) m/uL Hgb 8.3 L (13.0-17.5) gm/dL Hct 25.2 L (39.0-53.0) % MCHC (31.0-37.0) g/dL Sodium (137-145) mmol/L BUN (9-20) mg/dL Glucose (74-99) mg/dL POC Glucose (mg/dL) (70-110) mg/dL Calcium (8.4-10.2) mg/dL ALT (4-49) U/L Total Protein (6.3-8.2) g/dL Albumin (3.5-5.0) g/dL
--- NOTE | 2022-08-23 10:52 | XR ---
EXAMINATION TYPE: XR chest 1V portable DATE OF EXAM: 08/23/2022 COMPARISON: 08/16/2022 HISTORY: Shortness of breath TECHNIQUE: Single frontal view of the chest is obtained. FINDINGS: There is poor aeration involving the left lung base. Left-sided PICC line appears in good position.. The cardiac silhouette size is within normal limits. The osseous structures are intact. Diffuse emphysematous changes are seen. IMPRESSION: 1 diffuse emphysematous changes with improving left basilar atelectasis or infiltrate.
[2022-08-23] MEDS: HYDROcodone/APAP 5-325MG 1 EACH TAB PO PRN ×2 (10:55→17:42)
[2022-08-23] MEDS: guaiFENesin 600 MG TABLET.ER PO SCH ×2 (10:55→21:08)
[2022-08-23] MEDS: predniSONE 20 MG TAB PO SCH (11:16)
[2022-08-23 11:48] LABS: Glucose,Whole Blood 135 mg/dL (70-110)
[2022-08-23] MEDS ORDERED: VANCOMYCIN IV PER PHARMACY 1 EACH MISC MISCELLANE PRN (12:44)
--- NOTE | 2022-08-23 13:38 | P.PN ---
Subjective Progress Note Date: 08/23/22 I was asked to evaluate this patient because of his advanced COPD and ongoing abdominal complications. The patient was seen in the emergency department. The patient is known to have diverticulosis he came in for an acute abdominal pain this morning. CAT scan of the abdomen was done and the patient was found to have acute sigmoid diverticulitis. This was a comp acute diverticulitis as perforation suspected and the patient had pockets of free intraperitoneal air measuring up to 5.5 cm in size. There is also trace lower abdominal ascites. No evidence of any abscess formation. Is also small bowel ileus. There is moderate size hiatal hernia also. The patient has a large prostate. Is known to have prostate cancer. The patient is also known to have advanced COPD. The patient is auction dependent. The patient is steroid dependent and is taking 10 mg of prednisone on a daily basis on outpatient basis. He has been followed up through our office. He has exertional dyspnea which is chronic in his significant limitation in exercise capacity because of his advanced COPD. No chest pain. No worsening shortness of breath. No swelling lower extremities. No previous history of DVT or pulmonary embolism. No nausea or emesis. No aspiration. GI surgeries on the case. Currently is on antibiotics. No plans for any surgery at this point in time. Blood work shows a WBC count of 18, he moglobin 13, normal cognition profile, BUN is 20 over the creatinine of 0.9. LFTs are normal. Lactic acid level is at 1.3. On today's evaluation of 07/30/2022, the patient's abdomen is less tender. The patient remains nothing by mouth. No worsening shortness of breath. The patient is on IV Zosyn. The patient is going to be treated conservatively. White cell count is at 14 with a hemoglobin of 11.1 and a platelet count of 245 noted the white cycles lower compared to yesterday. BUN is at 21 with a creatinine of 1.3. Sodium is at 143. Awake and alert and communicating. He remains on oxygen at 2 L/m nasal cannula. On 07/31/2022, the patient is doing well. No specific complaints. Abdominal pain is subsiding gradually. His COPD remains on IV Zosyn. No plans for any surgical intervention this point in time. The patient is known to have advanced COPD and the patient also has oxygen steroid dependent COPD and the patient is currently on hydrocortisone. IV fluids are in the form of D5 half-normal saline at rate of 100 mL an hour. The white cell count is down to 8.2 with hemoglobin 11.5 and a platelet count of 15. BUN is at 60 with a creatinine of 1 and his sodium level is at 137. The patient is seen today 08/01/2022 in follow-up on the regular medical floor. He is currently sitting up in bed. Awake and alert in no acute distress. Maintaining O2 saturations in the 90s on 2 L/m per nasal cannula. Currently on D5.45 normal saline at 100 ML's per hour. He is continued on Zosyn. His abdominal discomfort is gradually improving. Follow-up chest x-ray continues to show diffuse severe emphysematous changes with coarsened interstitium suspicious for chronic interstitial lung disease. Blood culture reveals no growth. White count 8.1. Hemoglobin 10.5. Platelets 225. Sodium 142. Potassium 3.9. Bicarb 26. BUN 11. Creatinine 1.0. Glucose 165. ProBNP 1500. Troponin negative 1. AST 12. ALT 13. Alk phos 39. Continued on DuoNeb inhalations. Lovenox for DVT prophylaxis. Remains on Solu-Cortef. The patient is seen today 08/02/2022 in follow-up on the regular medical floor. He is awake and alert in no acute distress. Resting fairly comfortably in bed. Maintaining good O2 saturations in the 90s on 2 L/m per nasal cannula. He is receiving D5 and half-normal saline at 100 ML's per hour. Remains on antibiotics in the form of Zosyn. Lovenox for DVT prophylaxis. Continued on Solu-Cortef. His abdominal discomfort is waxing and waning. A little more tender today. He remains nothing by mouth. Blood cultures revealed no growth. Blood glucose 151. Reevaluated today on 08/03/22, patient underwent sigmoid colectomy and end colostomy yesterday by Dr. Moyer mostly because of his sigmoid diverticulitis with perforation and abscess, patient came back to the ICU on mechanical ventilation. Remains intubated and mechanically ventilated. Patient is known to have severe end-stage COPD FEV1 is no more than 26%, however the benefits of the surgery obviously outweighed the risks. And surgery had to be done yesterday because the patient continued to have significant abdominal pain and tenderness. Patient is now on assist control rate of 16, volume 400 FiO2 50% and PEEP of 5, ABG showed a pO2 of 251 pCO2 42 pH of 7.45. His chest x-ray is showing minimal atelectasis, no infiltrate, no evidence of congestive heart failure, his electrolytes are normal renal profile is normal, CBC is relatively unremarkable. Hence I cut down his FiO2 to 35%, patient remains on enteral are at 100 mL an hour he is also on propofol at 50 mcg/kg/m, I have recommended stopping propofol, and was the patient is awake we will recommend checking weani ng parameters, and if reasonable proceed with a pressure support and CPAP with a pressure support of 10, follow-up ABG in 1 hour after being on pressure support and CPAP, and we will likely consider extubation later today. Reevaluated today on 08/04/2022, patient remains in the ICU, he is status post sigmoid colectomy and end colostomy with severe underlying COPD. FEV1 is in the range of 26%, surprisingly the patient is doing better than expected. Patient remains on 4 L nasal cannula with adequate O2 saturation, his ostomy is functioning well, remains on Zosyn, his also on TPN at 50 mL per hour. WBC count is 9.1 hemoglobin is 10.9. Basic metabolic profile is normal renal profile is normal. Chest x-ray yesterday showed minimal interstitial findings and COPD Reevaluated today on 08/05/2022, patient remains in the ICU, doing well, relatively asymptomatic, his ostomy is functioning well, pulmonary status is relatively stable in spite of its severity patient denies any abdominal pain, no shortness of breath, his labs were relatively normal including normal CBC and normal electrolytes normal renal profile hence I will transfer the patient out of the ICU to a regular medical floor. Reevaluated today on 08/06/2022, patient had his nasogastric tube removed yesterday, however he developed abdominal distention and a nasogastric tube was placed back again today significant amount of fluid was noted are of the stomach over 900 mL. Patient felt better nonetheless he remains a bit bloated, now he has a nasogastric tube back in place. Considering his symptoms I'm recommending that we keep him in the ICU today. Pulmonary-[facility] he is doing well in spite of his severe underlying COPD. Labs today showed relatively normal CBC and a relatively normal electrolytes bicarb is 33 BUN is 24 creatinine 0.89. Patient was seen by surgery today/Dr. gurrola, and he is recommending to keep the nasogastric tube in place. Patient was reevaluated today on 08/07/2022, feels less bloated, nasogastric tube remains in place and functional, his colostomy is also functional, he had 450 of NG output overnight. He is afebrile, WBC count is 6.1. Pulmonary-[facility] he is about the same, he has severe COPD but surprisingly not as symptomatic as expected. WBC count 6.1 hemoglobin 10.9 lites are normal renal profile is normal bicarb is 37 The patient is seen today 08/08/2022 in follow-up on the regular medical floor. He has moved out of the ICU yesterday. He is awake and alert in no acute distre ss. Maintaining good O2 saturations in the mid 90s on 3 L/m per nasal cannula. Afebrile. Hemodynamically stable. Nasogastric tube remains in place. Abdominal wound cultures are positive for gram-negative bacilli. Sputum culture revealed no growth. Blood culture reveals no growth. Sodium 137. Potassium 4.0. Bicarb 36. BUN 25. Creatinine 0.95. Glucose 134. She is continued on DuoNeb inhalations, Pulmicort and Perforomist inhalations, Solu-Cortef. Lovenox for DVT prophylaxis. Remains on TPN for nutritional support at 75 ML's per hour. Antibiotics in the form of Zosyn. The patient is seen today 08/09/2022 in follow-up on the regular medical floor. He is currently resting quite comfortably in bed. Awake and alert in no acute distress. Currently on oxygen at 3 L/m per nasal cannula. Being nourished with TPN at 75 ML's per hour. He is receiving lactated Ringer's at 100 ML's per hour. He has some lower extremity edema. White sodium 137. Potassium 3.9. Bicarb 34. BUN 24. Creatinine 1.00. Glucose 136. Abdominal cultures were positive for anaerobic gram-negative bacilli. Sputum culture revealed no growth. He is continued on DuoNeb inhalations, Pulmicort and Perforomist inhalations. Working well with the incentive spirometer. The patient is seen today 08/10/2022 in follow-up on the regular medical floor. He is currently sitting up in bed. Awake and alert in no acute distress. Maintaining good O2 saturations in the 90s on 3 L/m per nasal cannula. Sodium 139. Potassium 3.8. Bicarb 32. BUN 25. Creatinine 1.08. Glucose 127. He is continued on DuoNeb inhalations, Pulmicort and Perforomist inhalations. Chest x-ray showing some atelectasis. Working well with the incentive spirometer. Remains on Lovenox for DVT prophylaxis. His nasogastric tube has been removed. Abdominal x-ray revealed diffusely dilated small bowel loops measuring up to 4.5 cm suggesting postoperative ileus. He remains nothing by mouth except for ice chips per surgical services. Being nourished with TPN at 75 ML's per hour. Patient is seen today 08/11/2022 in follow-up on the regular medical floor. He is resting comfortably in bed. Awake and alert in no acute distress. Maintaining O2 saturations in the 90s on 3 L/m per nasal cannula. He is lactated Ringer's at 10 and I'll's per hour. He is receiving TPN at 75 ML's per hour. He remains on a full liquid diet. Tolerating it well. Ostomy functioning. Blood cultures revealed no growth. Abdominal wound cultures were positive for gram-negative bacilli. Sputum culture revealed no growth. Sodium 139. Potassium 3.7. Bicarb 32. BUN 25. Creatinine 1.02. Glucose 113. He is continued on DuoNeb inhalations, Pulmicort and Perforomist inhalations. The patient is seen today 08/12/2022 in follow-up on the regular medical floor. He is currently resting in bed. He is awake and alert in no acute distress. Maintaining O2 saturations in the 90s on 3 L/m per nasal cannula. Unfortunately he is quite nauseated and has been vomiting on and off since 6 PM last night. Uncomfortable. His abdomen is soft. Colostomy is functioning. Possible ileus. No worsening shortness of breath, cough or congestion. He is continued on DuoNeb inhalations, Pulmicort and Perforomist inhalations, IV Solu-Cortef. He is on antibiotics in the form of Zosyn. White count 10.0. Hemoglobin 11.1. Platelets 443. Sodium 140. Potassium 3.7. Bicarb 36. BUN 23. Creatinine 1.04. Glucose 112. The patient is seen today 08/13/2022 in follow-up on the regular medical floor. He is awake and alert in no acute distress. He is still having ongoing issues with nausea and vomiting. Denies any worsening of breath, cough or congestion. Maintaining good O2 saturations in the 90s liters per minute per nasal cannula. An computed tomography scan of the chest abdomen pelvis with contrast is pending per surgical services. Nasogastric tube to be reinserted. Sodium 138. Potassium 3.5. Bicarb 35. BUN 32. Creatinine 1.16. Glucose 195. He remains on DuoNeb inhalations, Pulmicort and Perforomist inhalations, Solu-Cortef. Being nourished with TPN at 60 ML's per hour. Lactated Ringer's at 20 MLS per hour. He remains on antibiotics in the form of Zosyn. Lovenox for DVT prophylaxis. The patient is seen today 08/14/2022 in follow-up on the regular medical floor. He is currently resting in bed. Awake and alert in no acute distress. He is having ongoing issues with abdominal distention and nausea. He's had 2 NG tubes replaced and was subsequent inadvertentaccidental removal. Computed tomography scan of the abdomen revealed high-grade distal small bowel obstruction with transition point identified presumed related to adhesions. Interval partial colectomy and colostomy changes noted. Plan is to replace the NG tube again and keep him nothing by mouth. He is maintaining good O2 saturations in the mid 90s on 3 L nasal cannula. Continued on bronchodilators. Continued on TPN. The patient is seen today 08/15/2022 in follow-up on the regular medical floor. He is awake and alert in no acute distress. Feeling better since the nasogastric tube was placed. No nausea or vomiting. Still with some abdominal tenderness. Ostomy has a small amount of stool in it. The left-sided PICC line in place. No evidence of left upper extremity DVT per Doppler. Chest x-ray revealed evidence of COPD but no acute pulmonary process. Nasogastric tube in appropriate place. Abdominal wound cultures revealed gram-negative bacilli. Strep agalactiae, group B. White count 6.1. Hemoglobin 7.7. Platelets 339. Sodium 141. Potassium 3.2. Bicarb 30. BUN 31. Creatinine 1.19. Glucose 118. He remains on TPN, lipids for nutritional support. Remains on antibiotics in the form of Zosyn. Continued on bronchodilators, site Cortef. Remains on IV diuretics. Currently in a -4.8 L balance. The patient is seen today 08/22/2022 in follow-up on the regular medical floor. He again had a nasogastric tube removed. Still was somewhat distended abdomen. Still with some abdominal discomfort. No output in the ostomy currently. Computed tomography scan of the abdomen and pelvis is pending. He is being nourished with TPN at 80 MLS per hour. Sodium 136. Potassium 4.7. Bicarb 25. BUN 36. Creatinine 1.07. Glucose 134. He is maintaining good O2 saturations in the mid to upper 90s on 3 L/m per nasal cannula. He is afebrile. He is continued on DuoNeb inhalations, Pulmicort and Perforomist inhalations, Solu- Cortef. Lovenox for DVT prophylaxis. The patient is seen today 08/23/2022 in follow-up on the regular medical floor. He is maintaining good O2 saturations in the 90s on 3 L/m per nasal cannula. He is doing better today. No worsening abdominal discomfort. Ostomy is functioning. Computed tomography scan of the abdomen yesterday ruled out ileus. No new ascites. Resolved small left pleural effusion. Improved soft tissue subcutaneous edema noted. Chest x-ray continues to show diffuse emphysematous changes with improving left basilar atelectasis/infiltrate. Left-sided PICC line appears in place. He did have a temperature of 102.7 earlier this morning. He's been initiated on vancomycin. White count 7.9. Hemoglobin 8.3. Platelets 248. Sodium 134. Potassium 4.6. A carb 25. BUN 26. Creatinine 0.95. Glucose 126. He remains on TPN and lipids for nutritional support. He is back and a full liquid diet. Lovenox for DVT prophylaxis. Objective - Vital Signs Vital signs: Vital Signs Temp 99.1 F 08/23/22 11:06 Pulse 104 H 08/23/22 13:16 Resp 18 08/23/22 08:25 BP 115/63 08/23/22 07:16 Pulse Ox 98 08/23/22 07:16 FiO2 35 08/03/22 12:00 Intake & Output 08/22/22 08/23/22 08/23/22 18:59 06:59 18:59 Intake Total 1100.000 Output Total 75 1775 Balance 1025.000 -1775 Weight 73.4 kg Intake: Intake, IV Titration 1100.000 Amount Sodium Phosphate 15 mmol 1100.000 Sodium Chloride 4Meq/ml Vial 30 meq Potassium Chloride 40 meq Magnesium Sulfate gm 0.5 gm Calcium Gluconate 1 gm In Amino Acids 5 %/Dextrose 20 % 1,000 ml @ 80 mls/ hr IV .BY DURATION [facility] Rx #:[id number] Output: Urine 1775 Stool 75 Other: Voiding Method Indwelling Catheter Urinal - Exam GENERAL EXAM: Alert, 72-year-old male, on 3 L nasal cannula, in no acute distress. HEAD: Normocephalic. EYES: Normal reaction of pupils, equal size. NOSE: Nasogastric tube currently in place. Clear with pink turbinates. THROAT: No erythema or exudates. NECK: No masses, no JVD. CHEST: No chest wall deformity. LUNGS: Equal air entry with bilateral end expiratory wheeze, diminished. CVS: S1 and S2 normal with no audible murmur, regular rhythm. ABDOMEN: Postsurgical changes. Ostomy intact. Stool noted within ostomy. Abdominal distention and discomfort. SPINE: No scoliosis or deformity SKIN: No rashes CENTRAL NERVOUS SYSTEM: No focal deficits, tone is normal in all 4 extremities. EXTREMITIES: There is no peripheral edema. No clubbing, no cyanosis. Peripheral pulses are intact. - Labs CBC & Chem 7: 08/23/22 09:10 08/23/22 09:10 Labs: Abnormal Lab Results - Last 24 Hours (Table) 08/22/22 08/23/22 08/23/22 Range/Units 18:37 01:43 06:48 RBC (4.30-5.90) m/uL Hgb (13.0-17.5) gm/dL Hct (39.0-53.0) % Sodium (137-145) mmol/L BUN (9-20) mg/dL Glucose (74-99) mg/dL POC Glucose (mg/dL) 140 H 168 H 136 H (70-110) mg/dL Calcium (8.4-10.2) mg/dL ALT (4-49) U/L Total Protein (6.3-8.2) g/dL Albumin (3.5-5.0) g/dL 08/23/22 08/23/22 08/23/22 Range/Units 09:10 09:10 11:47 RBC 2.68 L (4.30-5.90) m/uL Hgb 8.3 L (13.0-17.5) gm/dL Hct 25.2 L (39.0-53.0) % Sodium 134 L (137-145) mmol/L BUN 26 H (9-20) mg/dL Glucose 126 H (74-99) mg/dL POC Glucose (mg/dL) 135 H (70-110) mg/dL Calcium 8.3 L (8.4-10.2) mg/dL ALT 50 H (4-49) U/L Total Protein 5.1 L (6.3-8.2) g/dL Albumin 2.7 L (3.5-5.0) g/dL Assessment and Plan Assessment: Acute perforated sigmoid diverticulitis with abscess, status post sigmoid colectomy and end colostomy on 08/02/2022. Nasogastric tube removed. Abdominal x-ray revealed diffusely dilated small bowel loops measuring up to 4.5 cm sug gesting postoperative ileus. There is liquid stool and gas in the ostomy. On 08/12/2022 seconds issues with nausea and vomiting. Still with some nausea and vomiting 08/13/2022. Computed tomography scan confirmed a high-grade distal small bowel obstruction with transition point identified presumed related to adhesions. Interval partial colectomy and colostomy changes noted. Nasogastric tube was reinserted. A repeat CAT scan of the abdomen on 08/16/2022 showed persistent transition zone in the upper pelvis could be related to partial obstruction versus ileus. There was also dilated small loops of small bowel improved compared to the earlier CAT scan of the abdomen and pelvis that was don e on 08/13/2022. The patient was again having abdominal discomfort and distention 08/22/2022 and computed tomography scan of the abdomen and pelvis revealed no evidence of ileus or obstruction. Resumed full liquid diet. Remains on TPN for nutritional support. Obstructive uropathy post Art catheter removal. The catheter was reinserted Febrile illness 08/23/2022, initiated on vancomycin per ID services, follow-up blood cultures pending History of diverticulosis Recent hospitalization for an acute COPD exacerbation back in June 2022, treated and the patient has recovered Advanced COPD with an FEV1 of 26% of predicted, the patient is chronically oxygen and steroid dependent taking prednisone 10 mg by mouth daily. Ex-smoker and the patient quit smoking 2 years ago Chronic hypoxic respiratory failure maintained on O2 at 2 L nasal cannula Prostate cancer Acid reflux Plan: The patient was seen and evaluated Medications and labs reviewed Continue DuoNeb's, Perforomist and Pulmicort inhalations Discontinue Solu-Cortef, initiate prednisone 20 mg daily Febrile today, initiated on vancomycin per ID services Repeat blood cultures pending Titrate the FiO2 as tolerated Increase his activity as tolerated We will continue to follow I have personally seen and examined the patient, performed the documentation and the assessment and plan as written. Number of minutes spent on the visit: 10.
--- NOTE | 2022-08-23 14:02 | P.PN ---
Subjective Progress Note Date: 08/23/22 CHIEF COMPLAINT: Perforated diverticulitis HISTORY OF PRESENT ILLNESS: Patient is status post sigmoid colectomy with end colostomy for perforated diverticulitis with abscess on 08/02/22. CT from yesterday had shown no evidence of bowel obstruction. Patient's ostomy is functioning. He is having stool and air. He does complain of abdominal pain. He did have some nausea earlier. Does have a congested cough. He did have a fever this morning of 102.7. He has been tachycardic. WBC remains normal at 7.9. Infectious disease has added vancomycin and blood cultures ordered. Patient had been off of antibiotics. Patient's hemoglobin is 8.3 plt 248 sodium is 134 potassium 4.6 creatinine 0.95 nursing staff does report that patient is sluggish and does not ambulate like he should and does not use the incentive spirometer like he is supposed to. Chest x-ray diffuse emphysematous changes with improving left basilar atelectasis or infiltrate . Patient having issues with urinary retention. Art catheter is being reinserted. Urology consult. Patient seen and examined with Dr. meadows PHYSICAL EXAM: VITAL SIGNS: Reviewed. GENERAL: Well-developed in no acute distress. ABDOMEN: Soft. Nondistended. Ostomy with stool and air. Incision clean dry and intact with abdominal wound healing NEUROLOGIC: Alert and oriented. Cranial nerves II through XII grossly intact. ASSESSMENT: 1. Ileus resolved 2. Perforated diverticulitis with abscess status post sigmoid colectomy with end colostomy 3. History of COPD 4. Fever 5. Urinary retention PLAN: -Continue to observe -Antibiotics per infectious disease -Encouraged patient to ambulate -Encouraged patient to use incentive spirometer -Continue full liquid diet -Wean patient off of TPN today -[place] added for pain management -Consulted urology for urinary retention -Continue local wound care -DVT prophylaxis Lovenox GI prophylaxis Protonix Physician Child Care Director note has been reviewed by physician. Signing provider agrees with the documented findings, assessment, and plan of care. Objective - Vital Signs Vital signs: Vital Signs Temp 100.3 F H 08/23/22 09:28 Pulse 112 H 08/23/22 10:15 Resp 18 08/23/22 08:25 BP 115/63 08/23/22 07:16 Pulse Ox 98 08/23/22 07:16 FiO2 35 08/03/22 12:00 Intake & Output 08/22/22 08/23/22 08/23/22 18:59 06:59 18:59 Intake Total 1100.000 Output Total 75 1775 Balance 1025.000 -1775 Weight 73.4 kg Intake: Intake, IV Titration 1100.000 Amount Sodium Phosphate 15 mmol 1100.000 Sodium Chloride 4Meq/ml Vial 30 meq Potassium Chloride 40 meq Magnesium Sulfate gm 0.5 gm Calcium Gluconate 1 gm In Amino Acids 5 %/Dextrose 20 % 1,000 ml @ 80 mls/ hr IV .BY DURATION [facility] Rx #:[id number] Output: Urine 1775 Stool 75 Other: Voiding Method Indwelling Catheter Urinal - Labs CBC & Chem 7: 08/23/22 09:10 08/23/22 09:10 Labs: Abnormal Lab Results - Last 24 Hours (Table) 08/22/22 08/22/22 08/22/22 Range/Units 08:04 12:13 18:37 RBC 2.60 L (4.30-5.90) m/uL Hgb 7.8 L (13.0-17.5) gm/dL Hct 25.4 L (39.0-53.0) % MCHC 30.9 L (31.0-37.0) g/dL Sodium (137-145) mmol/L BUN (9-20) mg/dL Glucose (74-99) mg/dL POC Glucose (mg/dL) 168 H 140 H (70-110) mg/dL Calcium (8.4-10.2) mg/dL ALT (4-49) U/L Total Protein (6.3-8.2) g/dL Albumin (3.5-5.0) g/dL 08/23/22 08/23/22 08/23/22 Range/Units 01:43 06:48 09:10 RBC (4.30-5.90) m/uL Hgb (13.0-17.5) gm/dL Hct (39.0-53.0) % MCHC (31.0-37.0) g/dL Sodium 134 L (137-145) mmol/L BUN 26 H (9-20) mg/dL Glucose 126 H (74-99) mg/dL POC Glucose (mg/dL) 168 H 136 H (70-110) mg/dL Calcium 8.3 L (8.4-10.2) mg/dL ALT 50 H (4-49) U/L Total Protein 5.1 L (6.3-8.2) g/dL Albumin 2.7 L (3.5-5.0) g/dL 08/23/22 Range/Units 09:10 RBC 2.68 L (4.30-5.90) m/uL Hgb 8.3 L (13.0-17.5) gm/dL Hct 25.2 L (39.0-53.0) % MCHC (31.0-37.0) g/dL Sodium (137-145) mmol/L BUN (9-20) mg/dL Glucose (74-99) mg/dL POC Glucose (mg/dL) (70-110) mg/dL Calcium (8.4-10.2) mg/dL ALT (4-49) U/L Total Protein (6.3-8.2) g/dL Albumin (3.5-5.0) g/dL
[2022-08-23] MEDS: VANCOMYCIN 1,250 MG in SODIUM CHLORIDE 0.9% 250 ML IVPB SCH (14:46)
[2022-08-23 16:57] LABS: Glucose,Whole Blood 170 mg/dL (70-110)
--- NOTE | 2022-08-23 18:29 | P.GSCN ---
History of Present Illness Consult date: 08/23/22 Reason for Consult: Urinary retention History of present illness: This is a 72-year-old male with prolonged hospitalization due to perforated d iverticulitis. Urology is consulted for urinary retention. A Art catheter was placed yesterday after patient failed his trial of void. This is patient's second failed trial of void. Denies any voiding dysfunction at baseline. No previous history of urinary retention, kidney stones or recurrent UTIs. He does have a Art catheter in place draining clear yellow urine. Review of Systems - Constitutional Denies fever, Denies weight loss - Cardiovascular Denies chest pain, Denies shortness of breath - Respiratory Denies cough, Denies 7 - Gastrointestinal Reports as per HPI - Genitourinary Reports urinary retention - Neurological Denies headaches, Denies syncope Past Medical History Past Medical History: Cancer, COPD, GERD/Reflux Additional Past Medical History / Comment(s): positional upper abdominal pain stated when he changes position from laying to sitting and standing. History of Any Multi-Drug Resistant Organisms: None Reported Past Surgical History: Orthopedic Surgery, Tonsillectomy Additional Past Surgical History / Comment(s): Right shoulder arthroscopy. Colonoscopy. EGD Past Anesthesia/Blood Transfusion Reactions: No Reported Reaction Additional Past Anesthesia/Blood Transfusion Reaction / Comm: Pt has CLAUSTROPHOBIA Smoking Status: Former smoker - Past Family History Father Family Medical History: Cancer Mother Family Medical History: Cancer Additional Family Medical History / Comment(s): Mother in her 50s with some form of cancer. Pt/spouse do not recall type of cancer. Medications and Allergies Home Medications Medication Instructions Recorded Confirmed Type Multivitamins, Thera [Multivitamin 1 tab PO DAILY 01/22/20 07/29/22 History (formulary)] Ipratropium-Albuterol Nebulize 3 ml INHALATION RT-QID PRN 07/30/21 07/29/22 History [Duoneb 0.5 mg-3 mg/3 ml Soln] Fluticasone Propion/Salmeterol 1 puff INHALATION RT-BID 07/16/22 07/29/22 History [Wixela 250-50 Inhub] predniSONE 5 mg PO DIRECTED 07/16/22 07/29/22 History Ipratropium-Albuterol Nebulize 3 ml INHALATION RT-QID 2 Days each 07/18/22 07/29/22 Rx [Duoneb 0.5 mg-3 mg/3 ml Soln] Pantoprazole Sodium [Protonix] 40 mg PO DAILY #30 tab 07/18/22 07/29/22 Rx guaiFENesin [Mucinex] 600 mg PO Q12HR tab 07/18/22 07/29/22 Rx predniSONE See Taper PO DAILY 07/29/22 07/29/22 History Allergies Allergy/AdvReac Type Severity Reaction Status Date / Time No Known Allergies Allergy Verified 07/29/22 09:06 Surgical - Exam Vital Signs Temp Pulse Resp BP Pulse Ox 96.8 F L 89 28 H 157/94 95 07/29/22 07:03 07/29/22 07:03 07/29/22 07:03 07/29/22 07:03 07/29/22 07:03 - General no distress, no pain - Eyes normal ocular movement, no pale - ENT normal nares, normal mucosa - Respiratory normal expansion, normal respiratory effort - Abdomen Abdomen: soft, non tender - Psychiatric oriented to time, oriented to person, oriented to place Results - Labs 08/23/22 09:10 08/23/22 09:10 Abnormal Lab Results - Last 24 Hours (Table) 08/22/22 08/23/22 08/23/22 Range/Units 18:37 01:43 06:48 RBC (4.30-5.90) m/uL Hgb (13.0-17.5) gm/dL Hct (39.0-53.0) % Sodium (137-145) mmol/L BUN (9-20) mg/dL Glucose (74-99) mg/dL POC Glucose (mg/dL) 140 H 168 H 136 H (70-110) mg/dL Calcium (8.4-10.2) mg/dL ALT (4-49) U/L Total Protein (6.3-8.2) g/dL Albumin (3.5-5.0) g/dL 08/23/22 08/23/22 08/23/22 Range/Units 09:10 09:10 11:47 RBC 2.68 L (4.30-5.90) m/uL Hgb 8.3 L (13.0-17.5) gm/dL Hct 25.2 L (39.0-53.0) % Sodium 134 L (137-145) mmol/L BUN 26 H (9-20) mg/dL Glucose 126 H (74-99) mg/dL POC Glucose (mg/dL) 135 H (70-110) mg/dL Calcium 8.3 L (8.4-10.2) mg/dL ALT 50 H (4-49) U/L Total Protein 5.1 L (6.3-8.2) g/dL Albumin 2.7 L (3.5-5.0) g/dL 08/23/22 Range/Units 16:56 RBC (4.30-5.90) m/uL Hgb (13.0-17.5) gm/dL Hct (39.0-53.0) % Sodium (137-145) mmol/L BUN (9-20) mg/dL Glucose (74-99) mg/dL POC Glucose (mg/dL) 170 H (70-110) mg/dL Calcium (8.4-10.2) mg/dL ALT (4-49) U/L Total Protein (6.3-8.2) g/dL Albumin (3.5-5.0) g/dL Diabetes panel 08/23/22 Range/Units 09:10 Sodium 134 L (137-145) mmol/L Potassium 4.6 (3.5-5.1) mmol/L Chloride 102 (98-107) mmol/L Carbon Dioxide 25 (22-30) mmol/L BUN 26 H (9-20) mg/dL Creatinine 0.95 (0.66-1.25) mg/dL Glucose 126 H (74-99) mg/dL Calcium 8.3 L (8.4-10.2) mg/dL AST 38 (17-59) U/L ALT 50 H (4-49) U/L Alkaline Phosphatase 99 (38-126) U/L Total Protein 5.1 L (6.3-8.2) g/dL Albumin 2.7 L (3.5-5.0) g/dL Calcium panel 08/23/22 Range/Units 09:10 Calcium 8.3 L (8.4-10.2) mg/dL Phosphorus 3.4 (2.5-4.5) mg/dL Albumin 2.7 L (3.5-5.0) g/dL Pituitary panel 08/23/22 Range/Units 09:10 Sodium 134 L (137-145) mmol/L Potassium 4.6 (3.5-5.1) mmol/L Chloride 102 (98-107) mmol/L Carbon Dioxide 25 (22-30) mmol/L BUN 26 H (9-20) mg/dL Creatinine 0.95 (0.66-1.25) mg/dL Glucose 126 H (74-99) mg/dL Calcium 8.3 L (8.4-10.2) mg/dL Adrenal panel 08/23/22 Range/Units 09:10 Sodium 134 L (137-145) mmol/L Potassium 4.6 (3.5-5.1) mmol/L Chloride 102 (98-107) mmol/L Carbon Dioxide 25 (22-30) mmol/L BUN 26 H (9-20) mg/dL Creatinine 0.95 (0.66-1.25) mg/dL Glucose 126 H (74-99) mg/dL Calcium 8.3 L (8.4-10.2) mg/dL Total Bilirubin 0.5 (0.2-1.3) mg/dL AST 38 (17-59) U/L ALT 50 H (4-49) U/L Alkaline Phosphatase 99 (38-126) U/L Total Protein 5.1 L (6.3-8.2) g/dL Albumin 2.7 L (3.5-5.0) g/dL Assessment and Plan Assessment: 72-year-old male admitted to the hospital with perforated diverticulitis, has had prolonged hospitalization. Patient has failed 2 trials of voids. Discussed with him his voiding difficulties are most likely related to his deconditioning secondary to his prolonged hospitalization and surgery. He is currently on Flomax that was started during this hospitalization -We'll increase Flomax to twice a day -Repeat trial of void in 7 days, this can be done as an inpatient or outpatient
[2022-08-23] MEDS: MIRTAZAPINE 15 MG TAB PO SCH (21:08)
--- NOTE | 2022-08-23 22:35 | P.PN ---
Subjective Progress Note Date: 08/22/22 Principal diagnosis: Perforated diverticulitis and peritonitis Patient is a 72-year-old male presenting to the hospital abdominal pain has been diagnosed with acute diverticulitis with perforation treated medically did not have improvement subsequently was taken to the OR on 08/02/2022 and the patient is status post laparotomy; colectomy and diverting colostomy. On today's evaluation that is 08/22/2022, the patient continues to be afebrile, patient is breathing comfortably on 3L nasal cannula oxygen, patient denies having any nausea or vomiting, the patient tolerating his diet patient has been complaining of some nausea and did have one episode of vomiting and no output in the colostomy bag Objective - Vital Signs Vital signs: Vital Signs Temp 98.7 F 08/22/22 08:54 Pulse 107 H 08/22/22 08:54 Resp 17 08/22/22 08:54 BP 101/61 08/22/22 08:54 Pulse Ox 96 08/22/22 08:54 FiO2 35 08/03/22 12:00 Intake & Output 08/21/22 08/22/22 08/22/22 18:59 06:59 18:59 Intake Total 1032 Output Total 75 Balance 1032 -75 Weight 73.4 kg Intake: Intake, IV Titration 1032 Amount Sodium Phosphate 15 mmol 1032 Sodium Chloride 4Meq/ml Vial 30 meq Potassium Chloride 40 meq Magnesium Sulfate gm 0.5 gm Calcium Gluconate 1 gm In Amino Acids 5 %/Dextrose 20 % 1,000 ml @ 80 mls/ hr IV .BY DURATION [facility] Rx #:[id number] Output: Stool 75 Other: Voiding Method Indwelling Catheter Indwelling Catheter # Voids 1 - Exam GENERAL DESCRIPTION: An elderly male lying in bed in no distress RESPIRATORY SYSTEM: Unlabored breathing , decreased breath sounds at bases HEART: S1 S2 regular rate and rhythm , ABDOMEN: Soft , no tenderness EXTREMITIES: Did have extensive bruising to the upper extremity especially the left arm - Labs CBC & Chem 7: 08/23/22 09:10 08/23/22 09:10 Labs: Abnormal Lab Results - Last 24 Hours (Table) 08/21/22 08/21/22 08/22/22 Range/Units 16:38 23:17 05:38 Sodium (137-145) mmol/L BUN (9-20) mg/dL Glucose (74-99) mg/dL POC Glucose (mg/dL) 175 H 140 H 163 H (70-110) mg/dL Calcium (8.4-10.2) mg/dL ALT (4-49) U/L Total Protein (6.3-8.2) g/dL Albumin (3.5-5.0) g/dL 08/22/22 08/22/22 Range/Units 08:04 12:13 Sodium 136 L (137-145) mmol/L BUN 36 H (9-20) mg/dL Glucose 134 H (74-99) mg/dL POC Glucose (mg/dL) 168 H (70-110) mg/dL Calcium 8.3 L (8.4-10.2) mg/dL ALT 52 H (4-49) U/L Total Protein 5.0 L (6.3-8.2) g/dL Albumin 2.6 L (3.5-5.0) g/dL Assessment and Plan (1) Diverticulitis of colon with perforation Current Visit: Yes Status: Acute Code(s): K57.20 - DVTRCLI OF LG INT W PERFORATION AND ABSCESS W/O BLEEDING SNOMED Code(s): 18794676 Plan: 1patient was in the hospital with abdominal pain has been diagnosed with a complicated diverticulitis failing medical therapy and the patient subsequently status post laparotomy sigmoid colectomy and diverting colostomy with concern for secondary peritonitis from perforated sigmoid diverticulitis and need to cover for enteric gram-negative both aerobes and anaerobes 2-patient abdominal cultures grew group B strep and anaerobic gram-negative bacilli 3-the patient remains to be afebrile white count has been normal , CT of abdominal pelvis did shows evidence of high-grade distal small bowel obstruction and is being monitor manage medically, with a repeat CAT scan completed on 08/16/2022 did show some improvement, patient seemed to have more abdominal pain and repeat CT has been ordered results we will follow and monitor closely Time with Patient: Less than 30
--- NOTE | 2022-08-23 22:37 | P.PN ---
Subjective Progress Note Date: 08/23/22 Principal diagnosis: Perforated diverticulitis and peritonitis Patient is a 72-year-old male presenting to the hospital abdominal pain has been diagnosed with acute diverticulitis with perforation treated medically did not have improvement subsequently was taken to the OR on 08/02/2022 and the patient is status post laparotomy; colectomy and diverting colostomy. On today's evaluation that is 08/23/2022, the patient did spike a fever of 102F this morning, patient is breathing comfortably on 3L nasal cannula oxygen, patient denies having any nausea or vomiting, the patient tolerating his diet patient has been complaining of some nausea but no further vomiting and abdominal pain is controlled did have follow-up with the urinary retention urology has been consulted Objective - Vital Signs Vital signs: Vital Signs Temp 99.1 F 08/23/22 11:06 Pulse 116 H 08/23/22 10:26 Resp 18 08/23/22 08:25 BP 115/63 08/23/22 07:16 Pulse Ox 98 08/23/22 07:16 FiO2 35 08/03/22 12:00 Intake & Output 08/22/22 08/23/22 08/23/22 18:59 06:59 18:59 Intake Total 1100.000 Output Total 75 1775 Balance 1025.000 -1775 Weight 73.4 kg Intake: Intake, IV Titration 1100.000 Amount Sodium Phosphate 15 mmol 1100.000 Sodium Chloride 4Meq/ml Vial 30 meq Potassium Chloride 40 meq Magnesium Sulfate gm 0.5 gm Calcium Gluconate 1 gm In Amino Acids 5 %/Dextrose 20 % 1,000 ml @ 80 mls/ hr IV .[facility] Rx #:[id number] Output: Urine 1775 Stool 75 Other: Voiding Method Indwelling Catheter Urinal - Exam GENERAL DESCRIPTION: An elderly male lying in bed in no distress RESPIRATORY SYSTEM: Unlabored breathing , decreased breath sounds at bases HEART: S1 S2 regular rate and rhythm , ABDOMEN: Soft , no tenderness EXTREMITIES: Did have extensive bruising to the upper extremity especially the left arm - Labs CBC & Chem 7: 08/23/22 09:10 08/23/22 09:10 Labs: Abnormal Lab Results - Last 24 Hours (Table) 08/22/22 08/22/22 08/23/22 Range/Units 08:04 18:37 01:43 RBC 2.60 L (4.30-5.90) m/uL Hgb 7.8 L (13.0-17.5) gm/dL Hct 25.4 L (39.0-53.0) % MCHC 30.9 L (31.0-37.0) g/dL Sodium (137-145) mmol/L BUN (9-20) mg/dL Glucose (74-99) mg/dL POC Glucose (mg/dL) 140 H 168 H (70-110) mg/dL Calcium (8.4-10.2) mg/dL ALT (4-49) U/L Total Protein (6.3-8.2) g/dL Albumin (3.5-5.0) g/dL 08/23/22 08/23/22 08/23/22 Range/Units 06:48 09:10 09:10 RBC 2.68 L (4.30-5.90) m/uL Hgb 8.3 L (13.0-17.5) gm/dL Hct 25.2 L (39.0-53.0) % MCHC (31.0-37.0) g/dL Sodium 134 L (137-145) mmol/L BUN 26 H (9-20) mg/dL Glucose 126 H (74-99) mg/dL POC Glucose (mg/dL) 136 H (70-110) mg/dL Calcium 8.3 L (8.4-10.2) mg/dL ALT 50 H (4-49) U/L Total Protein 5.1 L (6.3-8.2) g/dL Albumin 2.7 L (3.5-5.0) g/dL 08/23/22 Range/Units 11:47 RBC (4.30-5.90) m/uL Hgb (13.0-17.5) gm/dL Hct (39.0-53.0) % MCHC (31.0-37.0) g/dL Sodium (137-145) mmol/L BUN (9-20) mg/dL Glucose (74-99) mg/dL POC Glucose (mg/dL) 135 H (70-110) mg/dL Calcium (8.4-10.2) mg/dL ALT (4-49) U/L Total Protein (6.3-8.2) g/dL Albumin (3.5-5.0) g/dL Assessment and Plan (1) Diverticulitis of colon with perforation Current Visit: Yes Status: Acute Code(s): K57.20 - DVTRCLI OF LG INT W PERFORATION AND ABSCESS W/O BLEEDING SNOMED Code(s): 23794293 Plan: 1patient was in the hospital with abdominal pain has been diagnosed with a complicated diverticulitis failing medical therapy and the patient subsequently status post laparotomy sigmoid colectomy and diverting colostomy with concern for secondary peritonitis from perforated sigmoid diverticulitis and need to cover for enteric gram-negative both aerobes and anaerobes 2-patient abdominal cultures grew group B strep and anaerobic gram-negative bacilli 3-the patient remains to be afebrile white count has been normal , CT of abdominal pelvis did shows evidence of high-grade distal small bowel obstruction and is being monitor manage medically, with a repeat CAT scan completed on 08/22/2022 mention no Bowel obstruction or any abscess 4-patient with a new fever possible line related PICC line has been discontinued blood culture had been obtained we will add vancomycin while waiting for the culture finalized Time with Patient: Less than 30
[2022-08-24 01:59] LABS: Glucose,Whole Blood 121 mg/dL (70-110)
[2022-08-24] MEDS: HYDROcodone/APAP 5-325MG 1 EACH TAB PO PRN ×4 (03:19→22:42)
[2022-08-24] MEDS: LACTATED RINGERS 1,000 ML IV SCH (04:33)
[2022-08-24 05:49] LABS: Glucose,Whole Blood 110 mg/dL (70-110)
[2022-08-24] MEDS: VANCOMYCIN 1,250 MG in SODIUM CHLORIDE 0.9% 250 ML IVPB SCH (06:14)
[2022-08-24] MEDS: predniSONE 20 MG TAB PO SCH (07:28)
[2022-08-24] MEDS: PANTOPRAZOLE 40 MG/10 ML VIAL IV SCH (07:28)
[2022-08-24] MEDS: TAMSULOSIN 0.4 MG CAP.ER.24H PO SCH ×2 (07:28→20:26)
[2022-08-24] MEDS: ENOXAPARIN 40 MG/0.4 ML SYRINGE SQ SCH (07:28)
[2022-08-24] MEDS: guaiFENesin 600 MG TABLET.ER PO SCH ×2 (07:28→20:26)
[2022-08-24] MEDS: FORMOTEROL FUMARATE 20 MCG/2 ML NEBU INHALATION SCH ×2 (08:36→21:34)
[2022-08-24] MEDS: IPRATROPIUM-ALBUTEROL 3 ML NEB INHALATION SCH ×4 (08:36→21:34)
[2022-08-24] MEDS: BUDESONIDE 1 MG/2 ML NEBU INHALATION SCH ×2 (08:36→21:34)
[2022-08-24 08:50] LABS: ALT 43 U/L (4-49); AST 33 U/L (17-59); African American GFR (CKD) >90 (>60 ml/min/1.73 sqM); Albumin 2.7 g/dL (3.5-5.0); Albumin/Globulin Ratio 1.1; Alkaline Phosphatase 91 U/L (38-126); Anion Gap 7 mmol/L; Blood Urea Nitrogen 22 mg/dL (9-20); Calcium 8.4 mg/dL (8.4-10.2); Carbon Dioxide 28 mmol/L (22-30); Chloride 101 mmol/L (98-107); Globulin 2.4 g/dL; Glucose 101 mg/dL (74-99); Magnesium 1.9 mg/dL (1.6-2.3); Non-African American GFR(CKD) 78 (>60 ml/min/1.73 sqM); Phosphorus 3.6 mg/dL (2.5-4.5); Potassium 4.1 mmol/L (3.5-5.1); Sodium 136 mmol/L (137-145); Total Bilirubin 0.5 mg/dL (0.2-1.3); Total Protein 5.1 g/dL (6.3-8.2)
[2022-08-24 08:55] LABS: Basophils % (A) 0 %; Eosinophils % (A) 1 %; HCT 24.2 % (39.0-53.0); HGB 7.8 gm/dL (13.0-17.5); Hypochromasia Slight; Lymphocytes # (A) 1.3 k/uL (1.0-4.8); Lymphocytes % (A) 24 %; MCH 30.6 pg (25.0-35.0); MCHC 32.1 g/dL (31.0-37.0); MCV 95.1 fL (80.0-100.0); Mean Platelet Volume 7.7; Monocytes # (A) 0.3 k/uL (0-1.0); Monocytes % (A) 5 %; Neutrophils # (A) 3.9 k/uL (1.3-7.7); Neutrophils % (A) 68 %; Platelet Count 248 k/uL (150-450); RBC 2.54 m/uL (4.30-5.90); RDW 15.3 % (11.5-15.5); WBC 5.7 k/uL (3.8-10.6)
[2022-08-24 11:05] LABS: Glucose,Whole Blood 132 mg/dL (70-110)
--- NOTE | 2022-08-24 12:10 | CDI ---
Documentation Clarification Form Date: 08/24/2022 11:40:23 AM From: Anusha Rhodes RN, CCDS Admit Date: 07/29/2022 09:35:00 AM Patient Name: Martell Steven Visit Number: [id number] Discharge Date: ATTENTION: The Clinical Documentation Specialists (CDI) and [facility] Coding Staff appreciate your assistance in clarifying documentation. Please respond to the clarification below the line at the bottom and electronically sign. The CDI & [facility] Coding staff will review the response and follow-up if needed. Please note: Queries are made part of the Legal Health Record. If you have any questions, please contact the author of this message via ITS. Dr. Presley Moran Urinary retention is documented 08/23/2022 and patient had Sigmoid colectomy with end colostomy on 08/02/2022. Additional clarification is requested regarding the relationship, if any, that exists between the diagnosis and the procedure. Patients Admitting Diagnosis: Perforated diverticulitis Post-Operative Diagnosis: Perforated diverticulitis with abscess Procedure performed: Sigmoid colectomy with end colostomy History/Risk Factors: Sigmoid diverticulitis, COPD, GERD Clinical Indicators: 72-year-old male present to ED with complaints of abdominal pain with nausea and mild emesis for more than 2 days. 08/09 VS: 121/70 82 16 98.1 94% 3/L NC 07/29 CT abdomen pelvis w contrast: Prostatomegaly of 5.2 cm wide. 08/02 CT abdomen pelvis wo contrast: Genital organs: Mildly enlarged prostate consistent with BPH. 08/22 CT abdomen pelvis w/o contrast: Genital organs: Enlarged prostate consistent with BPH is redemonstrated. 08/23 Urology consult: Discussed voiding difficulties are mostly likely related to his deconditioning secondary to his prolonged hospitalization and surgery. Treatment: Flomax 0.4 MG PO BID Art catheter placed after failed his trial of void. Repeat trial of void in 7 days What relationship, if any, exists between the diagnosis of urinary retention and the procedure? [ ] Urinary retention is a complication of surgical procedure. [ ] Urinary retention is an expected outcome of the surgical procedure. [ X ] Urinary retention is related to patients co-morbid condition(s) of BPH & not a complication of the procedure. [ ] Other please specify ____ [ ] Unable to determine (Template Last Revised: May 2020) MTDD
--- NOTE | 2022-08-24 12:19 | P.PN ---
Subjective Progress Note Date: 08/24/22 Patient is a 72-year-old male with COPD on home O2 at 3 L, diverticulosis and GERD who initially presented to the ER with complaints of abdominal pain. CT abdomen and pelvis showed acute sigmoid diverticulitis complicated by perforation with pockets of free intraperitoneal air measuring up to 5.5 cm accompanied by trace lower abdominal ascites, secondary small bowel ileus, moderate sized hiatal hernia, mild circumferential distal esophageal wall thickening, and prostamegaly. Patient was admitted to general surgery and we are consulted for medical management. He underwent sigmoidectomy with end colostomy on 08/02 and was transported to the ICU where he was extubated on 08/03. NG tube was initially removed on 08/09. It was reinserted on 08/13. NG tube was a removed overnight between 08/13-08/14 was then replaced on 08/14. Venous Doppler from 08/14-no evidence of upper extremity DVT, PICC line in place NGT removed on 08/19/22 CT abdomen and pelvis 08/22/22 Normal bowel traction currently, no new ascites, small left pleural effusion, improved soft tissue subcutaneous edema. Fevers on 08/23- blood cultures ordered and PICC line removed. Patient seen and examined at bedside. He reports feeling much better than yesterday. His pain is well controlled, he is breathing better. He overall feels better. He was able to eat oatmeal and some pudding for breakfast. Vital signs reviewed General: nontoxic, no distress, appears at stated age Derm: Multiple areas of Ecchymosis in various stages of healing Cardiovascular: S1S2 reg, no murmur, positive posterior tibial pulse bilateral, Lungs: Coarse bs bilateral, no rhonchi, no rales , no accessory muscle use Abdominal: soft, + tender to palpation LLQ, no guarding, no appreciable organomegaly Ext: no gross muscle atrophy, no edema, no contractures Neuro: CN II-XI grossly intact, no focal neuro deficits Psych: Alert, oriented, appropriate affect Assessment: candidemia and bacteremia 1/2 blood cultures with sepsis Acute perforated diverticulitis with abscess (Group B strep and anerobic bacilli) Sigmoid colectomy with end colostomy on 08/02/2032 Anemia, iron deficiency likely with acute blood loss Chronic/Resolved: Ileus Metabolic alkalosis, resolved COPD on chronic prednisone, not in exacerbation Chronic hypoxemic respiratory failure on 2 L home O2 Imaging: none new Data Review: Vitals reviewed temperature 97.5, T-max last 24 hours 100.3, pulse 77, respirations 16, blood pressure 03/23/1961, O2 sat 99% on 3 L Labs reviewed and remarkable for hemoglobin 7.8, sodium 136, BUN 22 Blood culture- Melissa and staph Plan: - D/W pharmacist and 1/2 blood cultures called with melissa and staph they spoke with Dr. Lebron who has ordered Eraxis. -- surgery noted reviewed from 08/23/22- wean TPN - Completed Zosyn 20 days - Prednisone 20 mg resumed on 08/23/22 - pulm note reviewed form 08/23/22 continue with bronchodilators, resume prednisone -Protonix 40 mg IV daily -Continue with bronchdilators -Patient continues to require Dilaudid 0.5 mg every 3 hours as needed for pain - TPN completed on 08/23/22. Had 21 days, PICC line removed 08/23/22 - Completed 3 days of IV iron -Infectious disease note reviewed : Agrees with vanco and PICC removal -CBC and BMP in AM DVT prophylaxis: Lovenox This dictation was prepared using [employer]ulu voice recognition software. Though every attempt is made to correct errors during during dictation some may still exist. Objective - Vital Signs Vital signs: Vital Signs Temp 97.5 F L 08/24/22 07:33 Pulse 88 08/24/22 11:58 Resp 16 08/24/22 07:33 BP 104/62 08/24/22 07:33 Pulse Ox 98 08/24/22 08:40 FiO2 35 08/03/22 12:00 Intake & Output 08/23/22 08/24/22 08/24/22 18:59 06:59 18:59 Output Total 400 2450 Balance -400 -2450 Output: Urine 400 2450 Other: Voiding Method Urinal Indwelling Catheter - Labs CBC & Chem 7: 08/24/22 07:56 08/24/22 07:56 Labs: Abnormal Lab Results - Last 24 Hours (Table) 08/23/22 08/24/22 08/24/22 Range/Units 16:56 01:56 07:56 RBC 2.54 L (4.30-5.90) m/uL Hgb 7.8 L (13.0-17.5) gm/dL Hct 24.2 L (39.0-53.0) % Sodium (137-145) mmol/L BUN (9-20) mg/dL Glucose (74-99) mg/dL POC Glucose (mg/dL) 170 H 121 H (70-110) mg/dL Total Protein (6.3-8.2) g/dL Albumin (3.5-5.0) g/dL 08/24/22 08/24/22 Range/Units 07:56 11:04 RBC (4.30-5.90) m/uL Hgb (13.0-17.5) gm/dL Hct (39.0-53.0) % Sodium 136 L (137-145) mmol/L BUN 22 H (9-20) mg/dL Glucose 101 H (74-99) mg/dL POC Glucose (mg/dL) 132 H (70-110) mg/dL Total Protein 5.1 L (6.3-8.2) g/dL Albumin 2.7 L (3.5-5.0) g/dL
[2022-08-24] MEDS ORDERED: ANIDULAFUNGIN 200 MG in SODIUM CHLORIDE 0.9% 200 ML IVPB ONE (12:30)
--- NOTE | 2022-08-24 14:29 | P.PN ---
Subjective Progress Note Date: 08/24/22 Principal diagnosis: Perforated diverticulitis and peritonitis Patient is a 72-year-old male presenting to the hospital abdominal pain has been diagnosed with acute diverticulitis with perforation treated medically did not have improvement subsequently was taken to the OR on 08/02/2022 and the patient is status post laparotomy; colectomy and diverting colostomy. On today's evaluation that is 08/24/2022, the patient is afebrile this morning, patient is breathing comfortably on 3L nasal cannula oxygen, patient denies having any nausea or vomiting, the patient tolerating his diet denies any vomiting and abdominal pain is controlled feeling better Objective - Vital Signs Vital signs: Vital Signs Temp 97.5 F L 08/24/22 07:33 Pulse 88 08/24/22 11:58 Resp 16 08/24/22 07:33 BP 104/62 08/24/22 07:33 Pulse Ox 98 08/24/22 08:40 FiO2 35 08/03/22 12:00 Intake & Output 08/23/22 08/24/22 08/24/22 18:59 06:59 18:59 Output Total 400 2450 Balance -400 -2450 Output: Urine 400 2450 Other: Voiding Method Urinal Indwelling Catheter - Exam GENERAL DESCRIPTION: An elderly male lying in bed in no distress RESPIRATORY SYSTEM: Unlabored breathing , decreased breath sounds at bases HEART: S1 S2 regular rate and rhythm , ABDOMEN: Soft , no tenderness EXTREMITIES: Did have extensive bruising to the upper extremity especially the left arm - Labs CBC & Chem 7: 08/24/22 07:56 08/24/22 07:56 Labs: Abnormal Lab Results - Last 24 Hours (Table) 08/23/22 08/24/22 08/24/22 Range/Units 16:56 01:56 07:56 RBC 2.54 L (4.30-5.90) m/uL Hgb 7.8 L (13.0-17.5) gm/dL Hct 24.2 L (39.0-53.0) % Sodium (137-145) mmol/L BUN (9-20) mg/dL Glucose (74-99) mg/dL POC Glucose (mg/dL) 170 H 121 H (70-110) mg/dL Total Protein (6.3-8.2) g/dL Albumin (3.5-5.0) g/dL 08/24/22 08/24/22 Range/Units 07:56 11:04 RBC (4.30-5.90) m/uL Hgb (13.0-17.5) gm/dL Hct (39.0-53.0) % Sodium 136 L (137-145) mmol/L BUN 22 H (9-20) mg/dL Glucose 101 H (74-99) mg/dL POC Glucose (mg/dL) 132 H (70-110) mg/dL Total Protein 5.1 L (6.3-8.2) g/dL Albumin 2.7 L (3.5-5.0) g/dL Assessment and Plan (1) Bacteremia Current Visit: Yes Status: Acute Code(s): R78.81 - BACTEREMIA SNOMED Code(s): 7939934 (2) Fungemia Current Visit: Yes Status: Acute Code(s): B49 - UNSPECIFIED MYCOSIS SNOMED Code(s): 905620521 Plan: 1patient was in the hospital with abdominal pain has been diagnosed with a complicated diverticulitis failing medical therapy and the patient subsequently status post laparotomy sigmoid colectomy and diverting colostomy with concern for secondary peritonitis from perforated sigmoid diverticulitis and need to cover for enteric gram-negative both aerobes and anaerobes,patient abdominal cultures grew group B strep and anaerobic gram-negative bacilli, for the patient has received adequate antibiotic therapy 2-the patient CT of abdominal pelvis did shows evidence of high-grade distal small bowel obstruction and is being monitor manage medically, with a repeat CAT scan completed on 08/22/2022 mention no Bowel obstruction or any abscess 3-patient with a new fever possible line related PICC line has been discontinued, cultures are currently growing oxacillin sensitive staph epi and Melissa, vancomycin has been discontinued and patient was started on cefazolin and Eraxis blood cultures will be repeated to document clearance discussed with the medical team Time with Patient: Less than 30
--- NOTE | 2022-08-24 14:42 | P.PN ---
Subjective Progress Note Date: 08/24/22 I was asked to evaluate this patient because of his advanced COPD and ongoing abdominal complications. The patient was seen in the emergency department. The patient is known to have diverticulosis he came in for an acute abdominal pain this morning. CAT scan of the abdomen was done and the patient was found to have acute sigmoid diverticulitis. This was a comp acute diverticulitis as perforation suspected and the patient had pockets of free intraperitoneal air measuring up to 5.5 cm in size. There is also trace lower abdominal ascites. No evidence of any abscess formation. Is also small bowel ileus. There is moderate size hiatal hernia also. The patient has a large prostate. Is known to have prostate cancer. The patient is also known to have advanced COPD. The patient is auction dependent. The patient is steroid dependent and is taking 10 mg of prednisone on a daily basis on outpatient basis. He has been followed up through our office. He has exertional dyspnea which is chronic in his significant limitation in exercise capacity because of his advanced COPD. No chest pain. No worsening shortness of breath. No swelling lower extremities. No previous history of DVT or pulmonary embolism. No nausea or emesis. No aspiration. GI surgeries on the case. Currently is on antibiotics. No plans for any surgery at this point in time. Blood work shows a WBC count of 18, he moglobin 13, normal cognition profile, BUN is 20 over the creatinine of 0.9. LFTs are normal. Lactic acid level is at 1.3. On today's evaluation of 07/30/2022, the patient's abdomen is less tender. The patient remains nothing by mouth. No worsening shortness of breath. The patient is on IV Zosyn. The patient is going to be treated conservatively. White cell count is at 14 with a hemoglobin of 11.1 and a platelet count of 245 noted the white cycles lower compared to yesterday. BUN is at 21 with a creatinine of 1.3. Sodium is at 143. Awake and alert and communicating. He remains on oxygen at 2 L/m nasal cannula. On 07/31/2022, the patient is doing well. No specific complaints. Abdominal pain is subsiding gradually. His COPD remains on IV Zosyn. No plans for any surgical intervention this point in time. The patient is known to have advanced COPD and the patient also has oxygen steroid dependent COPD and the patient is currently on hydrocortisone. IV fluids are in the form of D5 half-normal saline at rate of 100 mL an hour. The white cell count is down to 8.2 with hemoglobin 11.5 and a platelet count of 15. BUN is at 60 with a creatinine of 1 and his sodium level is at 137. The patient is seen today 08/01/2022 in follow-up on the regular medical floor. He is currently sitting up in bed. Awake and alert in no acute distress. Maintaining O2 saturations in the 90s on 2 L/m per nasal cannula. Currently on D5.45 normal saline at 100 ML's per hour. He is continued on Zosyn. His abdominal discomfort is gradually improving. Follow-up chest x-ray continues to show diffuse severe emphysematous changes with coarsened interstitium suspicious for chronic interstitial lung disease. Blood culture reveals no growth. White count 8.1. Hemoglobin 10.5. Platelets 225. Sodium 142. Potassium 3.9. Bicarb 26. BUN 11. Creatinine 1.0. Glucose 165. ProBNP 1500. Troponin negative 1. AST 12. ALT 13. Alk phos 39. Continued on DuoNeb inhalations. Lovenox for DVT prophylaxis. Remains on Solu-Cortef. The patient is seen today 08/02/2022 in follow-up on the regular medical floor. He is awake and alert in no acute distress. Resting fairly comfortably in bed. Maintaining good O2 saturations in the 90s on 2 L/m per nasal cannula. He is receiving D5 and half-normal saline at 100 ML's per hour. Remains on antibiotics in the form of Zosyn. Lovenox for DVT prophylaxis. Continued on Solu-Cortef. His abdominal discomfort is waxing and waning. A little more tender today. He remains nothing by mouth. Blood cultures revealed no growth. Blood glucose 151. Reevaluated today on 08/03/22, patient underwent sigmoid colectomy and end colostomy yesterday by Dr. Moyer mostly because of his sigmoid diverticulitis with perforation and abscess, patient came back to the ICU on mechanical ventilation. Remains intubated and mechanically ventilated. Patient is known to have severe end-stage COPD FEV1 is no more than 26%, however the benefits of the surgery obviously outweighed the risks. And surgery had to be done yesterday because the patient continued to have significant abdominal pain and tenderness. Patient is now on assist control rate of 16, volume 400 FiO2 50% and PEEP of 5, ABG showed a pO2 of 251 pCO2 42 pH of 7.45. His chest x-ray is showing minimal atelectasis, no infiltrate, no evidence of congestive heart failure, his electrolytes are normal renal profile is normal, CBC is relatively unremarkable. Hence I cut down his FiO2 to 35%, patient remains on enteral are at 100 mL an hour he is also on propofol at 50 mcg/kg/m, I have recommended stopping propofol, and was the patient is awake we will recommend checking weani ng parameters, and if reasonable proceed with a pressure support and CPAP with a pressure support of 10, follow-up ABG in 1 hour after being on pressure support and CPAP, and we will likely consider extubation later today. Reevaluated today on 08/04/2022, patient remains in the ICU, he is status post sigmoid colectomy and end colostomy with severe underlying COPD. FEV1 is in the range of 26%, surprisingly the patient is doing better than expected. Patient remains on 4 L nasal cannula with adequate O2 saturation, his ostomy is functioning well, remains on Zosyn, his also on TPN at 50 mL per hour. WBC count is 9.1 hemoglobin is 10.9. Basic metabolic profile is normal renal profile is normal. Chest x-ray yesterday showed minimal interstitial findings and COPD Reevaluated today on 08/05/2022, patient remains in the ICU, doing well, relatively asymptomatic, his ostomy is functioning well, pulmonary status is relatively stable in spite of its severity patient denies any abdominal pain, no shortness of breath, his labs were relatively normal including normal CBC and normal electrolytes normal renal profile hence I will transfer the patient out of the ICU to a regular medical floor. Reevaluated today on 08/06/2022, patient had his nasogastric tube removed yesterday, however he developed abdominal distention and a nasogastric tube was placed back again today significant amount of fluid was noted are of the stomach over 900 mL. Patient felt better nonetheless he remains a bit bloated, now he has a nasogastric tube back in place. Considering his symptoms I'm recommending that we keep him in the ICU today. Pulmonary-[facility] he is doing well in spite of his severe underlying COPD. Labs today showed relatively normal CBC and a relatively normal electrolytes bicarb is 33 BUN is 24 creatinine 0.89. Patient was seen by surgery today/Dr. gurrola, and he is recommending to keep the nasogastric tube in place. Patient was reevaluated today on 08/07/2022, feels less bloated, nasogastric tube remains in place and functional, his colostomy is also functional, he had 450 of NG output overnight. He is afebrile, WBC count is 6.1. Pulmonary-[facility] he is about the same, he has severe COPD but surprisingly not as symptomatic as expected. WBC count 6.1 hemoglobin 10.9 lites are normal renal profile is normal bicarb is 37 The patient is seen today 08/08/2022 in follow-up on the regular medical floor. He has moved out of the ICU yesterday. He is awake and alert in no acute distre ss. Maintaining good O2 saturations in the mid 90s on 3 L/m per nasal cannula. Afebrile. Hemodynamically stable. Nasogastric tube remains in place. Abdominal wound cultures are positive for gram-negative bacilli. Sputum culture revealed no growth. Blood culture reveals no growth. Sodium 137. Potassium 4.0. Bicarb 36. BUN 25. Creatinine 0.95. Glucose 134. She is continued on DuoNeb inhalations, Pulmicort and Perforomist inhalations, Solu-Cortef. Lovenox for DVT prophylaxis. Remains on TPN for nutritional support at 75 ML's per hour. Antibiotics in the form of Zosyn. The patient is seen today 08/09/2022 in follow-up on the regular medical floor. He is currently resting quite comfortably in bed. Awake and alert in no acute distress. Currently on oxygen at 3 L/m per nasal cannula. Being nourished with TPN at 75 ML's per hour. He is receiving lactated Ringer's at 100 ML's per hour. He has some lower extremity edema. White sodium 137. Potassium 3.9. Bicarb 34. BUN 24. Creatinine 1.00. Glucose 136. Abdominal cultures were positive for anaerobic gram-negative bacilli. Sputum culture revealed no growth. He is continued on DuoNeb inhalations, Pulmicort and Perforomist inhalations. Working well with the incentive spirometer. The patient is seen today 08/10/2022 in follow-up on the regular medical floor. He is currently sitting up in bed. Awake and alert in no acute distress. Maintaining good O2 saturations in the 90s on 3 L/m per nasal cannula. Sodium 139. Potassium 3.8. Bicarb 32. BUN 25. Creatinine 1.08. Glucose 127. He is continued on DuoNeb inhalations, Pulmicort and Perforomist inhalations. Chest x-ray showing some atelectasis. Working well with the incentive spirometer. Remains on Lovenox for DVT prophylaxis. His nasogastric tube has been removed. Abdominal x-ray revealed diffusely dilated small bowel loops measuring up to 4.5 cm suggesting postoperative ileus. He remains nothing by mouth except for ice chips per surgical services. Being nourished with TPN at 75 ML's per hour. Patient is seen today 08/11/2022 in follow-up on the regular medical floor. He is resting comfortably in bed. Awake and alert in no acute distress. Maintaining O2 saturations in the 90s on 3 L/m per nasal cannula. He is lactated Ringer's at 10 and I'll's per hour. He is receiving TPN at 75 ML's per hour. He remains on a full liquid diet. Tolerating it well. Ostomy functioning. Blood cultures revealed no growth. Abdominal wound cultures were positive for gram-negative bacilli. Sputum culture revealed no growth. Sodium 139. Potassium 3.7. Bicarb 32. BUN 25. Creatinine 1.02. Glucose 113. He is continued on DuoNeb inhalations, Pulmicort and Perforomist inhalations. The patient is seen today 08/12/2022 in follow-up on the regular medical floor. He is currently resting in bed. He is awake and alert in no acute distress. Maintaining O2 saturations in the 90s on 3 L/m per nasal cannula. Unfortunately he is quite nauseated and has been vomiting on and off since 6 PM last night. Uncomfortable. His abdomen is soft. Colostomy is functioning. Possible ileus. No worsening shortness of breath, cough or congestion. He is continued on DuoNeb inhalations, Pulmicort and Perforomist inhalations, IV Solu-Cortef. He is on antibiotics in the form of Zosyn. White count 10.0. Hemoglobin 11.1. Platelets 443. Sodium 140. Potassium 3.7. Bicarb 36. BUN 23. Creatinine 1.04. Glucose 112. The patient is seen today 08/13/2022 in follow-up on the regular medical floor. He is awake and alert in no acute distress. He is still having ongoing issues with nausea and vomiting. Denies any worsening of breath, cough or congestion. Maintaining good O2 saturations in the 90s liters per minute per nasal cannula. An computed tomography scan of the chest abdomen pelvis with contrast is pending per surgical services. Nasogastric tube to be reinserted. Sodium 138. Potassium 3.5. Bicarb 35. BUN 32. Creatinine 1.16. Glucose 195. He remains on DuoNeb inhalations, Pulmicort and Perforomist inhalations, Solu-Cortef. Being nourished with TPN at 60 ML's per hour. Lactated Ringer's at 20 MLS per hour. He remains on antibiotics in the form of Zosyn. Lovenox for DVT prophylaxis. The patient is seen today 08/14/2022 in follow-up on the regular medical floor. He is currently resting in bed. Awake and alert in no acute distress. He is having ongoing issues with abdominal distention and nausea. He's had 2 NG tubes replaced and was subsequent inadvertentaccidental removal. Computed tomography scan of the abdomen revealed high-grade distal small bowel obstruction with transition point identified presumed related to adhesions. Interval partial colectomy and colostomy changes noted. Plan is to replace the NG tube again and keep him nothing by mouth. He is maintaining good O2 saturations in the mid 90s on 3 L nasal cannula. Continued on bronchodilators. Continued on TPN. The patient is seen today 08/15/2022 in follow-up on the regular medical floor. He is awake and alert in no acute distress. Feeling better since the nasogastric tube was placed. No nausea or vomiting. Still with some abdominal tenderness. Ostomy has a small amount of stool in it. The left-sided PICC line in place. No evidence of left upper extremity DVT per Doppler. Chest x-ray revealed evidence of COPD but no acute pulmonary process. Nasogastric tube in appropriate place. Abdominal wound cultures revealed gram-negative bacilli. Strep agalactiae, group B. White count 6.1. Hemoglobin 7.7. Platelets 339. Sodium 141. Potassium 3.2. Bicarb 30. BUN 31. Creatinine 1.19. Glucose 118. He remains on TPN, lipids for nutritional support. Remains on antibiotics in the form of Zosyn. Continued on bronchodilators, site Cortef. Remains on IV diuretics. Currently in a -4.8 L balance. The patient is seen today 08/22/2022 in follow-up on the regular medical floor. He again had a nasogastric tube removed. Still was somewhat distended abdomen. Still with some abdominal discomfort. No output in the ostomy currently. Computed tomography scan of the abdomen and pelvis is pending. He is being nourished with TPN at 80 MLS per hour. Sodium 136. Potassium 4.7. Bicarb 25. BUN 36. Creatinine 1.07. Glucose 134. He is maintaining good O2 saturations in the mid to upper 90s on 3 L/m per nasal cannula. He is afebrile. He is continued on DuoNeb inhalations, Pulmicort and Perforomist inhalations, Solu- Cortef. Lovenox for DVT prophylaxis. The patient is seen today 08/23/2022 in follow-up on the regular medical floor. He is maintaining good O2 saturations in the 90s on 3 L/m per nasal cannula. He is doing better today. No worsening abdominal discomfort. Ostomy is functioning. Computed tomography scan of the abdomen yesterday ruled out ileus. No new ascites. Resolved small left pleural effusion. Improved soft tissue subcutaneous edema noted. Chest x-ray continues to show diffuse emphysematous changes with improving left basilar atelectasis/infiltrate. Left-sided PICC line appears in place. He did have a temperature of 102.7 earlier this morning. He's been initiated on vancomycin. White count 7.9. Hemoglobin 8.3. Platelets 248. Sodium 134. Potassium 4.6. A carb 25. BUN 26. Creatinine 0.95. Glucose 126. He remains on TPN and lipids for nutritional support. He is back and a full liquid diet. Lovenox for DVT prophylaxis. The patient is seen today 08/24/2022 in follow-up on the regular medical floor. He is awake and alert in no acute distress. Sitting up in bed. Maintaining good O2 saturations in the upper 90s on 3 L/m per nasal cannula. Afebrile. Hemodynamically stable. Denies any worsening abdominal discomfort. Ostomy is functioning. No nausea or vomiting. Tolerating a full liquid diet. White count 5.7. Hemoglobin 7.8. Platelets 248. Sodium 136. Potassium 4.1. Bicarb 20. BUN 22. Creatinine 0.97. He has been initiated on Eraxis and cefazolin per ID services today. Objective - Vital Signs Vital signs: Vital Signs Temp 97.5 F L 08/24/22 07:33 Pulse 88 08/24/22 11:58 Resp 16 08/24/22 07:33 BP 104/62 08/24/22 07:33 Pulse Ox 98 08/24/22 08:40 FiO2 35 08/03/22 12:00 Intake & Output 08/23/22 08/24/22 08/24/22 18:59 06:59 18:59 Output Total 400 2450 Balance -400 -2450 Output: Urine 400 2450 Other: Voiding Method Urinal Indwelling Catheter - Exam GENERAL EXAM: Alert, very pleasant 72-year-old male, resting in bed, on 3 L nasal cannula, in no acute distress. HEAD: Normocephalic. EYES: Normal reaction of pupils, equal size. NOSE: Nasogastric tube currently in place. Clear with pink turbinates. THROAT: No erythema or exudates. NECK: No masses, no JVD. CHEST: No chest wall deformity. LUNGS: Equal air entry with bilateral end expiratory wheeze, diminished. CVS: S1 and S2 normal with no audible murmur, regular rhythm. ABDOMEN: Postsurgical changes. Ostomy intact. Stool noted within ostomy. SPINE: No scoliosis or deformity SKIN: No rashes CENTRAL NERVOUS SYSTEM: No focal deficits, tone is normal in all 4 extremities. EXTREMITIES: There is no peripheral edema. No clubbing, no cyanosis. Peripheral pulses are intact. - Labs CBC & Chem 7: 08/24/22 07:56 08/24/22 07:56 Labs: Abnormal Lab Results - Last 24 Hours (Table) 08/23/22 08/24/22 08/24/22 Range/Units 16:56 01:56 07:56 RBC 2.54 L (4.30-5.90) m/uL Hgb 7.8 L (13.0-17.5) gm/dL Hct 24.2 L (39.0-53.0) % Sodium (137-145) mmol/L BUN (9-20) mg/dL Glucose (74-99) mg/dL POC Glucose (mg/dL) 170 H 121 H (70-110) mg/dL Total Protein (6.3-8.2) g/dL Albumin (3.5-5.0) g/dL 08/24/22 08/24/22 Range/Units 07:56 11:04 RBC (4.30-5.90) m/uL Hgb (13.0-17.5) gm/dL Hct (39.0-53.0) % Sodium 136 L (137-145) mmol/L BUN 22 H (9-20) mg/dL Glucose 101 H (74-99) mg/dL POC Glucose (mg/dL) 132 H (70-110) mg/dL Total Protein 5.1 L (6.3-8.2) g/dL Albumin 2.7 L (3.5-5.0) g/dL Assessment and Plan Assessment: Acute perforated sigmoid diverticulitis with abscess, status post sigmoid colectomy and end colostomy on 08/02/2022. Nasogastric tube removed. Abdominal x-ray revealed diffusely dilated small bowel loops measuring up to 4.5 cm suggesting postoperative ileus. There is liquid stool and gas in the ostomy. On 08/12/2022 seconds issues with nausea and vomiting. Still with some nausea and vomiting 08/13/2022. Computed tomography scan confirmed a high-grade distal small bowel obstruction with transition point identified presumed related to adhesions. Interval partial colectomy and colostomy changes noted. Nasogastric tube was reinserted. A repeat CAT scan of the abdomen on 08/16/2022 showed persistent transition zone in the upper pelvis could be related to partial obstruction versus ileus. There was also dilated small loops of small bowel im proved compared to the earlier CAT scan of the abdomen and pelvis that was done on 08/13/2022. The patient was again having abdominal discomfort and distention 08/22/2022 and computed tomography scan of the abdomen and pelvis revealed no evidence of ileus or obstruction. Resumed full liquid diet. Obstructive uropathy post Art catheter removal. The catheter was reinserted Febrile illness 08/23/2022, initiated on vancomycin per ID services, follow-up blood cultures pending, now on Eraxis and cefazolin History of diverticulosis Recent hospitalization for an acute COPD exacerbation back in June 2022, treated and the patient has recovered Advanced COPD with an FEV1 of 26% of predicted, the patient is chronically oxygen and steroid dependent taking prednisone 10 mg by mouth daily. Ex-smoker and the patient quit smoking 2 years ago Chronic hypoxic respiratory failure maintained on O2 at 2 L nasal cannula Prostate cancer Acid reflux Plan: The patient was seen and evaluated Medications and labs reviewed Continue DuoNeb's, Perforomist and Pulmicort inhalations Continue prednisone 20 mg daily On Eraxis and cefazolin Repeat blood cultures pending Titrate the FiO2 as tolerated Increase his activity as tolerated Plan is for subacute rehab post discharge We will continue to follow I have personally seen and examined the patient, performed the documentation and the assessment and plan as written. Number of minutes spent on the visit: 10.
--- NOTE | 2022-08-24 16:33 | P.PN ---
Subjective Progress Note Date: 08/24/22 CHIEF COMPLAINT: Perforated diverticulitis HISTORY OF PRESENT ILLNESS: Patient is status post sigmoid colectomy with end colostomy for perforated diverticulitis with abscess on 08/02/22. Patient reports improvement in his abdominal pain. Ostomy is functioning. He is appetite is improving. He is off the TPN. He did have fevers yesterday. PICC line was discontinued due to possible source of infection. Blood cultures were obtained. He also had urinary retention Art catheter was reinserted and u rology recommending to keep Art catheter in place for 7 days. Afebrile. Heart rate improved. WBC is 5.7 Hgb is 7.8 platelets 248 seconds 136 potassium 4.1 creatinine 0.97. Infectious disease added Eraxis due to blood culture findings Patient seen and examined with Dr. meadows PHYSICAL EXAM: VITAL SIGNS: Reviewed. GENERAL: Well-developed in no acute distress. ABDOMEN: Soft. Nondistended. Ostomy with stool and air. Incision clean dry and intact with abdominal wound healing NEUROLOGIC: Alert and oriented. Cranial nerves II through XII grossly intact. ASSESSMENT: 1. Ileus resolved 2. Perforated diverticulitis with abscess status post sigmoid colectomy with end colostomy 3. History of COPD 4. Fever 5. Urinary retention PLAN: -Continue full liquid diet -Encourage patient to ambulate -Antibiotics per infectious disease -Continue pain management -Continue local wound care -DVT prophylaxis Lovenox GI prophylaxis Protonix Physician [employer] Super[employer] note has been reviewed by physician. Signing provider agrees with the documented findings, assessment, and plan of care. Objective - Vital Signs Vital signs: Vital Signs Temp 98.4 F 08/24/22 13:30 Pulse 92 08/24/22 15:54 Resp 14 08/24/22 13:30 BP 100/62 08/24/22 13:30 Pulse Ox 98 08/24/22 13:30 FiO2 35 08/03/22 12:00 Intake & Output 08/23/22 08/24/22 08/24/22 18:59 06:59 18:59 Output Total 400 2450 Balance -400 -2450 Output: Urine 400 2450 Other: Voiding Method Urinal Indwelling Catheter - Labs CBC & Chem 7: 08/24/22 07:56 08/24/22 07:56 Labs: Abnormal Lab Results - Last 24 Hours (Table) 08/23/22 08/24/22 08/24/22 Range/Units 16:56 01:56 07:56 RBC 2.54 L (4.30-5.90) m/uL Hgb 7.8 L (13.0-17.5) gm/dL Hct 24.2 L (39.0-53.0) % Sodium (137-145) mmol/L BUN (9-20) mg/dL Glucose (74-99) mg/dL POC Glucose (mg/dL) 170 H 121 H (70-110) mg/dL Total Protein (6.3-8.2) g/dL Albumin (3.5-5.0) g/dL 08/24/22 08/24/22 Range/Units 07:56 11:04 RBC (4.30-5.90) m/uL Hgb (13.0-17.5) gm/dL Hct (39.0-53.0) % Sodium 136 L (137-145) mmol/L BUN 22 H (9-20) mg/dL Glucose 101 H (74-99) mg/dL POC Glucose (mg/dL) 132 H (70-110) mg/dL Total Protein 5.1 L (6.3-8.2) g/dL Albumin 2.7 L (3.5-5.0) g/dL
[2022-08-24 16:39] LABS: Glucose,Whole Blood 149 mg/dL (70-110)
[2022-08-24] MEDS: MIRTAZAPINE 15 MG TAB PO SCH (20:26)
[2022-08-24 22:27] LABS: Glucose,Whole Blood 164 mg/dL (70-110)
[2022-08-25 05:02] LABS: Glucose,Whole Blood 133 mg/dL (70-110)
[2022-08-25] MEDS: LACTATED RINGERS 1,000 ML IV SCH (05:31)
[2022-08-25 07:22] LABS: Hypochromasia Slight; MCH 30.7 pg (25.0-35.0); MCHC 32.3 g/dL (31.0-37.0); MCV 94.9 fL (80.0-100.0); Mean Platelet Volume 7.5; Platelet Count 308 k/uL (150-450); RBC 2.21 m/uL (4.30-5.90); RDW 15.5 % (11.5-15.5); WBC 5.4 k/uL (3.8-10.6)
[2022-08-25 07:34] LABS: HGB 6.8 gm/dL (13.0-17.5)
[2022-08-25] MEDS: predniSONE 20 MG TAB PO SCH (07:47)
[2022-08-25] MEDS: ENOXAPARIN 40 MG/0.4 ML SYRINGE SQ SCH (07:47)
[2022-08-25] MEDS: PANTOPRAZOLE 40 MG/10 ML VIAL IV SCH (07:47)
[2022-08-25] MEDS: guaiFENesin 600 MG TABLET.ER PO SCH ×2 (07:47→20:05)
[2022-08-25] MEDS: TAMSULOSIN 0.4 MG CAP.ER.24H PO SCH ×2 (07:47→20:05)
[2022-08-25] MEDS: ANIDULAFUNGIN 100 MG in SODIUM CHLORIDE 0.9% 100 ML IVPB SCH (07:47)
[2022-08-25 08:09] LABS: African American GFR (CKD) >90 (>60 ml/min/1.73 sqM); Anion Gap 5 mmol/L; Blood Urea Nitrogen 22 mg/dL (9-20); Calcium 8.2 mg/dL (8.4-10.2); Carbon Dioxide 28 mmol/L (22-30); Chloride 104 mmol/L (98-107); Glucose 102 mg/dL (74-99); Non-African American GFR(CKD) 83 (>60 ml/min/1.73 sqM); Sodium 137 mmol/L (137-145)
[2022-08-25 08:20] LABS: Potassium 4.3 mmol/L (3.5-5.1)
[2022-08-25] MEDS: BUDESONIDE 1 MG/2 ML NEBU INHALATION SCH ×2 (09:36→22:19)
[2022-08-25] MEDS: FORMOTEROL FUMARATE 20 MCG/2 ML NEBU INHALATION SCH ×2 (09:36→22:19)
[2022-08-25] MEDS: IPRATROPIUM-ALBUTEROL 3 ML NEB INHALATION SCH ×4 (09:36→22:19)
--- NOTE | 2022-08-25 10:58 | P.PN ---
Subjective Progress Note Date: 08/25/22 Patient is a 72-year-old male with COPD on home O2 at 3 L, diverticulosis and GERD who initially presented to the ER with complaints of abdominal pain. CT abdomen and pelvis showed acute sigmoid diverticulitis complicated by perforation with pockets of free intraperitoneal air measuring up to 5.5 cm accompanied by trace lower abdominal ascites, secondary small bowel ileus, moderate sized hiatal hernia, mild circumferential distal esophageal wall thickening, and prostamegaly. Patient was admitted to general surgery and we are consulted for medical management. He underwent sigmoidectomy with end colostomy on 08/02 and was transported to the ICU where he was extubated on 08/03. NG tube was initially removed on 08/09. It was reinserted on 08/13. NG tube was a removed overnight between 08/13-08/14 was then replaced on 08/14. Venous Doppler from 08/14-no evidence of upper extremity DVT, PICC line in place NGT removed on 08/19/22 CT abdomen and pelvis 08/22/22 Normal bowel traction currently, no new ascites, small left pleural effusion, improved soft tissue subcutaneous edema. Fevers on 08/23- blood cultures ordered and PICC line removed. Patient seen and examined at bedside. He reports feeling much better than yesterday. His pain is well controlled, he is breathing better. He overall feels better. He was able to eat oatmeal and some pudding for breakfast. Vital signs reviewed General: nontoxic, no distress, appears at stated age Derm: Multiple areas of Ecchymosis in various stages of healing Cardiovascular: S1S2 reg, no murmur, positive posterior tibial pulse bilateral, Lungs: Coarse bs bilateral, no rhonchi, no rales , no accessory muscle use Abdominal: soft, + tender to palpation LLQ, no guarding, no appreciable organomegaly Ext: no gross muscle atrophy, no edema, no contractures Neuro: CN II-XI grossly intact, no focal neuro deficits Psych: Alert, oriented, appropriate affect Assessment: Candidemia with sepsis- await formal blood culture and PICC tip culture Acute perforated diverticulitis with abscess (Group B strep and anerobic bacilli) Sigmoid colectomy with end colostomy on 08/02/2032 Anemia, iron deficiency likely with acute blood loss - worsening today Chronic/Resolved: Ileus Metabolic alkalosis, resolved COPD on chronic prednisone, not in exacerbation Chronic hypoxemic respiratory failure on 2 L home O2 Imaging: none new Data Review: Vital signs reviewed in T-max in the last 24 hours 98.4 Labs reviewed from today and remarkable for hemoglobin of 6.8 (7.8 yesterday) Blood culture- Melissa on gram stain Await repeat blood cultures Plan: - Repeat CBC at 1300 and in AM - Surgical note reviewed from 08/24: Continue full liquid diet -Pulmonary note reviewed from 08/24: No new recommendations -Infectious disease note reviewed from 08/24: Cefazolin and Eraxis, follow blood cultures daily until clear -Eraxis and cefazolin day #2 - Completed Zosyn 20 days - Prednisone 20 mg resumed on 08/23/22 -Protonix 40 mg IV daily -Continue with bronchdilators -Patient continues to require Dilaudid 0.5 mg every 3 hours as needed for pain - TPN completed on 08/23/22. Had 21 days, PICC line removed 08/23/22 - Completed 3 days of IV iron DVT prophylaxis: [employer] ([employer]nox This dictation was prepared using [employer] voice recognition software. Though every attempt is made to correct errors during during dictation some may still exist. Objective - Vital Signs Vital signs: Vital Signs Temp 97.7 F 08/25/22 07:27 Pulse 96 08/25/22 09:56 Resp 17 08/25/22 07:27 BP 111/67 08/25/22 07:27 Pulse Ox 100 08/25/22 09:39 FiO2 35 08/03/22 12:00 Intake & Output 08/24/22 08/25/22 08/25/22 18:59 06:59 18:59 Output Total 1500 550 Balance -1500 -550 Output: Urine 1500 550 Other: Voiding Method Indwelling Catheter - Labs CBC & Chem 7: 08/25/22 06:55 08/25/22 06:55 Labs: Abnormal Lab Results - Last 24 Hours (Table) 08/24/22 08/24/22 08/24/22 Range/Units 11:04 16:38 22:25 RBC (4.30-5.90) m/uL Hgb (13.0-17.5) gm/dL Hct (39.0-53.0) % BUN (9-20) mg/dL Glucose (74-99) mg/dL POC Glucose (mg/dL) 132 H 149 H 164 H (70-110) mg/dL Calcium (8.4-10.2) mg/dL 08/25/22 08/25/22 08/25/22 Range/Units 04:57 06:55 06:55 RBC 2.21 L (4.30-5.90) m/uL Hgb 6.8 L* (13.0-17.5) gm/dL Hct 21.0 L (39.0-53.0) % BUN 22 H (9-20) mg/dL Glucose 102 H (74-99) mg/dL POC Glucose (mg/dL) 133 H (70-110) mg/dL Calcium 8.2 L (8.4-10.2) mg/dL Microbiology - Last 24 Hours (Table) 08/23/22 12:26 Blood Culture Gram Stain - Preliminary Blood Blood Culture - Preliminary
[2022-08-25 11:17] LABS: Glucose,Whole Blood 136 mg/dL (70-110)
[2022-08-25] MEDS: HYDROcodone/APAP 5-325MG 1 EACH TAB PO PRN ×2 (12:05→22:21)
--- NOTE | 2022-08-25 12:50 | P.PN ---
Subjective Progress Note Date: 08/25/22 I was asked to evaluate this patient because of his advanced COPD and ongoing abdominal complications. The patient was seen in the emergency department. The patient is known to have diverticulosis he came in for an acute abdominal pain this morning. CAT scan of the abdomen was done and the patient was found to have acute sigmoid diverticulitis. This was a comp acute diverticulitis as perforation suspected and the patient had pockets of free intraperitoneal air measuring up to 5.5 cm in size. There is also trace lower abdominal ascites. No evidence of any abscess formation. Is also small bowel ileus. There is moderate size hiatal hernia also. The patient has a large prostate. Is known to have prostate cancer. The patient is also known to have advanced COPD. The patient is auction dependent. The patient is steroid dependent and is taking 10 mg of prednisone on a daily basis on outpatient basis. He has been followed up through our office. He has exertional dyspnea which is chronic in his significant limitation in exercise capacity because of his advanced COPD. No chest pain. No worsening shortness of breath. No swelling lower extremities. No previous history of DVT or pulmonary embolism. No nausea or emesis. No aspiration. GI surgeries on the case. Currently is on antibiotics. No plans for any surgery at this point in time. Blood work shows a WBC count of 18, he moglobin 13, normal cognition profile, BUN is 20 over the creatinine of 0.9. LFTs are normal. Lactic acid level is at 1.3. On today's evaluation of 07/30/2022, the patient's abdomen is less tender. The patient remains nothing by mouth. No worsening shortness of breath. The patient is on IV Zosyn. The patient is going to be treated conservatively. White cell count is at 14 with a hemoglobin of 11.1 and a platelet count of 245 noted the white cycles lower compared to yesterday. BUN is at 21 with a creatinine of 1.3. Sodium is at 143. Awake and alert and communicating. He remains on oxygen at 2 L/m nasal cannula. On 07/31/2022, the patient is doing well. No specific complaints. Abdominal pain is subsiding gradually. His COPD remains on IV Zosyn. No plans for any surgical intervention this point in time. The patient is known to have advanced COPD and the patient also has oxygen steroid dependent COPD and the patient is currently on hydrocortisone. IV fluids are in the form of D5 half-normal saline at rate of 100 mL an hour. The white cell count is down to 8.2 with hemoglobin 11.5 and a platelet count of 15. BUN is at 60 with a creatinine of 1 and his sodium level is at 137. The patient is seen today 08/01/2022 in follow-up on the regular medical floor. He is currently sitting up in bed. Awake and alert in no acute distress. Maintaining O2 saturations in the 90s on 2 L/m per nasal cannula. Currently on D5.45 normal saline at 100 ML's per hour. He is continued on Zosyn. His abdominal discomfort is gradually improving. Follow-up chest x-ray continues to show diffuse severe emphysematous changes with coarsened interstitium suspicious for chronic interstitial lung disease. Blood culture reveals no growth. White count 8.1. Hemoglobin 10.5. Platelets 225. Sodium 142. Potassium 3.9. Bicarb 26. BUN 11. Creatinine 1.0. Glucose 165. ProBNP 1500. Troponin negative 1. AST 12. ALT 13. Alk phos 39. Continued on DuoNeb inhalations. Lovenox for DVT prophylaxis. Remains on Solu-Cortef. The patient is seen today 08/02/2022 in follow-up on the regular medical floor. He is awake and alert in no acute distress. Resting fairly comfortably in bed. Maintaining good O2 saturations in the 90s on 2 L/m per nasal cannula. He is receiving D5 and half-normal saline at 100 ML's per hour. Remains on antibiotics in the form of Zosyn. Lovenox for DVT prophylaxis. Continued on Solu-Cortef. His abdominal discomfort is waxing and waning. A little more tender today. He remains nothing by mouth. Blood cultures revealed no growth. Blood glucose 151. Reevaluated today on 08/03/22, patient underwent sigmoid colectomy and end colostomy yesterday by Dr. Moyer mostly because of his sigmoid diverticulitis with perforation and abscess, patient came back to the ICU on mechanical ventilation. Remains intubated and mechanically ventilated. Patient is known to have severe end-stage COPD FEV1 is no more than 26%, however the benefits of the surgery obviously outweighed the risks. And surgery had to be done yesterday because the patient continued to have significant abdominal pain and tenderness. Patient is now on assist control rate of 16, volume 400 FiO2 50% and PEEP of 5, ABG showed a pO2 of 251 pCO2 42 pH of 7.45. His chest x-ray is showing minimal atelectasis, no infiltrate, no evidence of congestive heart failure, his electrolytes are normal renal profile is normal, CBC is relatively unremarkable. Hence I cut down his FiO2 to 35%, patient remains on enteral are at 100 mL an hour he is also on propofol at 50 mcg/kg/m, I have recommended stopping propofol, and was the patient is awake we will recommend checking weani ng parameters, and if reasonable proceed with a pressure support and CPAP with a pressure support of 10, follow-up ABG in 1 hour after being on pressure support and CPAP, and we will likely consider extubation later today. Reevaluated today on 08/04/2022, patient remains in the ICU, he is status post sigmoid colectomy and end colostomy with severe underlying COPD. FEV1 is in the range of 26%, surprisingly the patient is doing better than expected. Patient remains on 4 L nasal cannula with adequate O2 saturation, his ostomy is functioning well, remains on Zosyn, his also on TPN at 50 mL per hour. WBC count is 9.1 hemoglobin is 10.9. Basic metabolic profile is normal renal profile is normal. Chest x-ray yesterday showed minimal interstitial findings and COPD Reevaluated today on 08/05/2022, patient remains in the ICU, doing well, relatively asymptomatic, his ostomy is functioning well, pulmonary status is relatively stable in spite of its severity patient denies any abdominal pain, no shortness of breath, his labs were relatively normal including normal CBC and normal electrolytes normal renal profile hence I will transfer the patient out of the ICU to a regular medical floor. Reevaluated today on 08/06/2022, patient had his nasogastric tube removed yesterday, however he developed abdominal distention and a nasogastric tube was placed back again today significant amount of fluid was noted are of the stomach over 900 mL. Patient felt better nonetheless he remains a bit bloated, now he has a nasogastric tube back in place. Considering his symptoms I'm recommending that we keep him in the ICU today. Pulmonary-[facility] he is doing well in spite of his severe underlying COPD. Labs today showed relatively normal CBC and a relatively normal electrolytes bicarb is 33 BUN is 24 creatinine 0.89. Patient was seen by surgery today/Dr. gurrola, and he is recommending to keep the nasogastric tube in place. Patient was reevaluated today on 08/07/2022, feels less bloated, nasogastric tube remains in place and functional, his colostomy is also functional, he had 450 of NG output overnight. He is afebrile, WBC count is 6.1. Pulmonary-[facility] he is about the same, he has severe COPD but surprisingly not as symptomatic as expected. WBC count 6.1 hemoglobin 10.9 lites are normal renal profile is normal bicarb is 37 The patient is seen today 08/08/2022 in follow-up on the regular medical floor. He has moved out of the ICU yesterday. He is awake and alert in no acute distre ss. Maintaining good O2 saturations in the mid 90s on 3 L/m per nasal cannula. Afebrile. Hemodynamically stable. Nasogastric tube remains in place. Abdominal wound cultures are positive for gram-negative bacilli. Sputum culture revealed no growth. Blood culture reveals no growth. Sodium 137. Potassium 4.0. Bicarb 36. BUN 25. Creatinine 0.95. Glucose 134. She is continued on DuoNeb inhalations, Pulmicort and Perforomist inhalations, Solu-Cortef. Lovenox for DVT prophylaxis. Remains on TPN for nutritional support at 75 ML's per hour. Antibiotics in the form of Zosyn. The patient is seen today 08/09/2022 in follow-up on the regular medical floor. He is currently resting quite comfortably in bed. Awake and alert in no acute distress. Currently on oxygen at 3 L/m per nasal cannula. Being nourished with TPN at 75 ML's per hour. He is receiving lactated Ringer's at 100 ML's per hour. He has some lower extremity edema. White sodium 137. Potassium 3.9. Bicarb 34. BUN 24. Creatinine 1.00. Glucose 136. Abdominal cultures were positive for anaerobic gram-negative bacilli. Sputum culture revealed no growth. He is continued on DuoNeb inhalations, Pulmicort and Perforomist inhalations. Working well with the incentive spirometer. The patient is seen today 08/10/2022 in follow-up on the regular medical floor. He is currently sitting up in bed. Awake and alert in no acute distress. Maintaining good O2 saturations in the 90s on 3 L/m per nasal cannula. Sodium 139. Potassium 3.8. Bicarb 32. BUN 25. Creatinine 1.08. Glucose 127. He is continued on DuoNeb inhalations, Pulmicort and Perforomist inhalations. Chest x-ray showing some atelectasis. Working well with the incentive spirometer. Remains on Lovenox for DVT prophylaxis. His nasogastric tube has been removed. Abdominal x-ray revealed diffusely dilated small bowel loops measuring up to 4.5 cm suggesting postoperative ileus. He remains nothing by mouth except for ice chips per surgical services. Being nourished with TPN at 75 ML's per hour. Patient is seen today 08/11/2022 in follow-up on the regular medical floor. He is resting comfortably in bed. Awake and alert in no acute distress. Maintaining O2 saturations in the 90s on 3 L/m per nasal cannula. He is lactated Ringer's at 10 and I'll's per hour. He is receiving TPN at 75 ML's per hour. He remains on a full liquid diet. Tolerating it well. Ostomy functioning. Blood cultures revealed no growth. Abdominal wound cultures were positive for gram-negative bacilli. Sputum culture revealed no growth. Sodium 139. Potassium 3.7. Bicarb 32. BUN 25. Creatinine 1.02. Glucose 113. He is continued on DuoNeb inhalations, Pulmicort and Perforomist inhalations. The patient is seen today 08/12/2022 in follow-up on the regular medical floor. He is currently resting in bed. He is awake and alert in no acute distress. Maintaining O2 saturations in the 90s on 3 L/m per nasal cannula. Unfortunately he is quite nauseated and has been vomiting on and off since 6 PM last night. Uncomfortable. His abdomen is soft. Colostomy is functioning. Possible ileus. No worsening shortness of breath, cough or congestion. He is continued on DuoNeb inhalations, Pulmicort and Perforomist inhalations, IV Solu-Cortef. He is on antibiotics in the form of Zosyn. White count 10.0. Hemoglobin 11.1. Platelets 443. Sodium 140. Potassium 3.7. Bicarb 36. BUN 23. Creatinine 1.04. Glucose 112. The patient is seen today 08/13/2022 in follow-up on the regular medical floor. He is awake and alert in no acute distress. He is still having ongoing issues with nausea and vomiting. Denies any worsening of breath, cough or congestion. Maintaining good O2 saturations in the 90s liters per minute per nasal cannula. An computed tomography scan of the chest abdomen pelvis with contrast is pending per surgical services. Nasogastric tube to be reinserted. Sodium 138. Potassium 3.5. Bicarb 35. BUN 32. Creatinine 1.16. Glucose 195. He remains on DuoNeb inhalations, Pulmicort and Perforomist inhalations, Solu-Cortef. Being nourished with TPN at 60 ML's per hour. Lactated Ringer's at 20 MLS per hour. He remains on antibiotics in the form of Zosyn. Lovenox for DVT prophylaxis. The patient is seen today 08/14/2022 in follow-up on the regular medical floor. He is currently resting in bed. Awake and alert in no acute distress. He is having ongoing issues with abdominal distention and nausea. He's had 2 NG tubes replaced and was subsequent inadvertentaccidental removal. Computed tomography scan of the abdomen revealed high-grade distal small bowel obstruction with transition point identified presumed related to adhesions. Interval partial colectomy and colostomy changes noted. Plan is to replace the NG tube again and keep him nothing by mouth. He is maintaining good O2 saturations in the mid 90s on 3 L nasal cannula. Continued on bronchodilators. Continued on TPN. The patient is seen today 08/15/2022 in follow-up on the regular medical floor. He is awake and alert in no acute distress. Feeling better since the nasogastric tube was placed. No nausea or vomiting. Still with some abdominal tenderness. Ostomy has a small amount of stool in it. The left-sided PICC line in place. No evidence of left upper extremity DVT per Doppler. Chest x-ray revealed evidence of COPD but no acute pulmonary process. Nasogastric tube in appropriate place. Abdominal wound cultures revealed gram-negative bacilli. Strep agalactiae, group B. White count 6.1. Hemoglobin 7.7. Platelets 339. Sodium 141. Potassium 3.2. Bicarb 30. BUN 31. Creatinine 1.19. Glucose 118. He remains on TPN, lipids for nutritional support. Remains on antibiotics in the form of Zosyn. Continued on bronchodilators, site Cortef. Remains on IV diuretics. Currently in a -4.8 L balance. The patient is seen today 08/22/2022 in follow-up on the regular medical floor. He again had a nasogastric tube removed. Still was somewhat distended abdomen. Still with some abdominal discomfort. No output in the ostomy currently. Computed tomography scan of the abdomen and pelvis is pending. He is being nourished with TPN at 80 MLS per hour. Sodium 136. Potassium 4.7. Bicarb 25. BUN 36. Creatinine 1.07. Glucose 134. He is maintaining good O2 saturations in the mid to upper 90s on 3 L/m per nasal cannula. He is afebrile. He is continued on DuoNeb inhalations, Pulmicort and Perforomist inhalations, Solu- Cortef. Lovenox for DVT prophylaxis. The patient is seen today 08/23/2022 in follow-up on the regular medical floor. He is maintaining good O2 saturations in the 90s on 3 L/m per nasal cannula. He is doing better today. No worsening abdominal discomfort. Ostomy is functioning. Computed tomography scan of the abdomen yesterday ruled out ileus. No new ascites. Resolved small left pleural effusion. Improved soft tissue subcutaneous edema noted. Chest x-ray continues to show diffuse emphysematous changes with improving left basilar atelectasis/infiltrate. Left-sided PICC line appears in place. He did have a temperature of 102.7 earlier this morning. He's been initiated on vancomycin. White count 7.9. Hemoglobin 8.3. Platelets 248. Sodium 134. Potassium 4.6. A carb 25. BUN 26. Creatinine 0.95. Glucose 126. He remains on TPN and lipids for nutritional support. He is back and a full liquid diet. Lovenox for DVT prophylaxis. The patient is seen today 08/24/2022 in follow-up on the regular medical floor. He is awake and alert in no acute distress. Sitting up in bed. Maintaining good O2 saturations in the upper 90s on 3 L/m per nasal cannula. Afebrile. Hemodynamically stable. Denies any worsening abdominal discomfort. Ostomy is functioning. No nausea or vomiting. Tolerating a full liquid diet. White count 5.7. Hemoglobin 7.8. Platelets 248. Sodium 136. Potassium 4.1. Bicarb 20. BUN 22. Creatinine 0.97. He has been initiated on Eraxis and cefazolin per ID services today. The patient is seen today 08/25/2022 in follow-up on the regular medical floor. Sitting up in bed. Awake and alert in no acute distress. Denies any worsening shortness of breath, cough or congestion. Denies any worsening abdominal pain, nausea or vomiting. Follow-up blood cultures positive for oxacillin sensitive staph epi and Melissa. He is on Eraxis and cefazolin. PICC line was discontinued. White count 5.4. Hemoglobin 6.8. Platelets 308. Sodium 137. Potassium 4.3. Bicarb 28. BUN 22. Creatinine 0.92. Glucose 102. Objective - Vital Signs Vital signs: Vital Signs Temp 97.7 F 08/25/22 07:27 Pulse 96 08/25/22 09:56 Resp 17 08/25/22 07:27 BP 111/67 08/25/22 07:27 Pulse Ox 100 08/25/22 09:39 FiO2 35 08/03/22 12:00 Intake & Output 08/24/22 08/25/22 08/25/22 18:59 06:59 18:59 Output Total 1500 550 Balance -1500 -550 Output: Urine 1500 550 Other: Voiding Method Indwelling Catheter - Exam GENERAL EXAM: Alert, 72-year-old male, resting in bed, on 3 L nasal cannula, in no acute distress. HEAD: Normocephalic. EYES: Normal reaction of pupils, equal size. NOSE: Clear with pink turbinates. THROAT: No erythema or exudates. NECK: No masses, no JVD. CHEST: No chest wall deformity. LUNGS: Equal air entry with bilateral end expiratory wheeze, diminished. CVS: S1 and S2 normal with no audible murmur, regular rhythm. ABDOMEN: Postsurgical changes. Ostomy intact. Stool noted within ostomy. SPINE: No scoliosis or deformity SKIN: No rashes CENTRAL NERVOUS SYSTEM: No focal deficits, tone is normal in all 4 extremities. EXTREMITIES: There is no peripheral edema. No clubbing, no cyanosis. Peripheral pulses are intact. - Labs CBC & Chem 7: 08/25/22 06:55 08/25/22 06:55 Labs: Abnormal Lab Results - Last 24 Hours (Table) 08/24/22 08/24/22 08/25/22 Range/Units 16:38 22:25 04:57 RBC (4.30-5.90) m/uL Hgb (13.0-17.5) gm/dL Hct (39.0-53.0) % BUN (9-20) mg/dL Glucose (74-99) mg/dL POC Glucose (mg/dL) 149 H 164 H 133 H (70-110) mg/dL Calcium (8.4-10.2) mg/dL 08/25/22 08/25/22 08/25/22 Range/Units 06:55 06:55 11:16 RBC 2.21 L (4.30-5.90) m/uL Hgb 6.8 L* (13.0-17.5) gm/dL Hct 21.0 L (39.0-53.0) % BUN 22 H (9-20) mg/dL Glucose 102 H (74-99) mg/dL POC Glucose (mg/dL) 136 H (70-110) mg/dL Calcium 8.2 L (8.4-10.2) mg/dL Microbiology - Last 24 Hours (Table) 08/23/22 12:26 Blood Culture Gram Stain - Preliminary Blood Blood Culture - Preliminary Assessment and Plan Assessment: Acute perforated sigmoid diverticulitis with abscess, status post sigmoid colectomy and end colostomy on 08/02/2022. Nasogastric tube removed. Abdominal x-ray revealed diffusely dilated small bowel loops measuring up to 4.5 cm suggesting postoperative ileus. There is liquid stool and gas in the ostomy. On 08/12/2022 seconds issues with nausea and vomiting. Still with some nausea and vomiting 08/13/2022. Computed tomography scan confirmed a high-grade distal small bowel obstruction with transition point identified presumed related to adhesions. Interval partial colectomy and colostomy changes noted. Nasogastric tube was reinserted. A repeat CAT scan of the abdomen on 08/16/2022 showed persistent transition zone in the upper pelvis could be related to partial obstruction versus ileus. There was also dilated small loops of small bowel improved compared to the earlier CAT scan of the abdomen and pelvis that was done on 08/13/2022. The patient was again having abdominal discomfort and distention 08/22/2022 and computed tomography scan of the abdomen and pelvis revealed no evidence of ileus or obstruction. Resumed regular diet. Obstructive uropathy post Art catheter removal. The catheter was reinserted Febrile illness 08/23/2022, follow-up blood cultures pending, now on Eraxis and cefazolin Acute anemia 08/25/2022 with a hemoglobin of 6.8. No signs of active bleeding History of diverticulosis Recent hospitalization for an acute COPD exacerbation back in June 2022, treated and the patient has recovered Advanced COPD with an FEV1 of 26% of predicted, the patient is chronically oxygen and steroid dependent taking prednisone 10 mg by mouth daily. Ex-smoker and the patient quit smoking 2 years ago Chronic hypoxic respiratory failure maintained on O2 at 2 L nasal cannula Prostate cancer Acid reflux Plan: The patient was seen and evaluated Medications and labs reviewed On Eraxis and cefazolin Repeat blood cultures pending PICC line catheter tip cultures pending Increase his activity as tolerated Plan is for subacute rehab post discharge We will continue to follow I have personally seen and examined the patient, performed the documentation and the assessment and plan as written. Number of minutes spent on the visit: 10.
[2022-08-25 13:23] LABS: Hypochromasia Slight; MCH 29.2 pg (25.0-35.0); MCHC 31.1 g/dL (31.0-37.0); MCV 93.8 fL (80.0-100.0); Mean Platelet Volume 7.6; Platelet Count 342 k/uL (150-450); RBC 2.88 m/uL (4.30-5.90); RDW 15.7 % (11.5-15.5); WBC 6.3 k/uL (3.8-10.6)
[2022-08-25 13:32] LABS: HGB 8.4 gm/dL (13.0-17.5)
[2022-08-25 16:27] LABS: Glucose,Whole Blood 203 mg/dL (70-110)
[2022-08-25] MEDS: MIRTAZAPINE 15 MG TAB PO SCH (20:05)
[2022-08-25 21:00] LABS: Glucose,Whole Blood 144 mg/dL (70-110)
--- NOTE | 2022-08-25 22:24 | P.PN ---
Subjective Progress Note Date: 08/25/22 Principal diagnosis: Perforated diverticulitis and peritonitis Patient is a 72-year-old male presenting to the hospital abdominal pain has been diagnosed with acute diverticulitis with perforation treated medically did not have improvement subsequently was taken to the OR on 08/02/2022 and the patient is status post laparotomy; colectomy and diverting colostomy. On today's evaluation that is 08/25/2022, the patient remains to be afebrile, patient is breathing comfortably on 3L nasal cannula oxygen, patient denies having any nausea or vomiting, the patient tolerating his diet , the patient denies any vomiting and abdominal pain is controlled, the patient is feeling better Objective - Vital Signs Vital signs: Vital Signs Temp 97.7 F 08/25/22 07:27 Pulse 96 08/25/22 09:56 Resp 17 08/25/22 07:27 BP 111/67 08/25/22 07:27 Pulse Ox 100 08/25/22 09:39 FiO2 35 08/03/22 12:00 Intake & Output 08/24/22 08/25/22 08/25/22 18:59 06:59 18:59 Output Total 1500 550 Balance -1500 -550 Output: Urine 1500 550 Other: Voiding Method Indwelling Catheter - Exam GENERAL DESCRIPTION: An elderly male lying in bed in no distress RESPIRATORY SYSTEM: Unlabored breathing , decreased breath sounds at bases HEART: S1 S2 regular rate and rhythm , ABDOMEN: Soft , no tenderness EXTREMITIES: Did have extensive bruising to the upper extremity especially the left arm - Labs CBC & Chem 7: 08/25/22 13:14 08/25/22 06:55 Labs: Abnormal Lab Results - Last 24 Hours (Table) 08/24/22 08/24/22 08/25/22 Range/Units 16:38 22:25 04:57 RBC (4.30-5.90) m/uL Hgb (13.0-17.5) gm/dL Hct (39.0-53.0) % BUN (9-20) mg/dL Glucose (74-99) mg/dL POC Glucose (mg/dL) 149 H 164 H 133 H (70-110) mg/dL Calcium (8.4-10.2) mg/dL 08/25/22 08/25/22 08/25/22 Range/Units 06:55 06:55 11:16 RBC 2.21 L (4.30-5.90) m/uL Hgb 6.8 L* (13.0-17.5) gm/dL Hct 21.0 L (39.0-53.0) % BUN 22 H (9-20) mg/dL Glucose 102 H (74-99) mg/dL POC Glucose (mg/dL) 136 H (70-110) mg/dL Calcium 8.2 L (8.4-10.2) mg/dL Microbiology - Last 24 Hours (Table) 08/23/22 12:26 Blood Culture Gram Stain - Preliminary Blood Blood Culture - Preliminary Assessment and Plan (1) Bacteremia Current Visit: Yes Status: Acute Code(s): R78.81 - BACTEREMIA SNOMED Code(s): 1572645 (2) Fungemia Current Visit: Yes Status: Acute Code(s): B49 - UNSPECIFIED MYCOSIS SNOMED Code(s): 657978680 Plan: 1patient was in the hospital with abdominal pain has been diagnosed with a comp licated diverticulitis failing medical therapy and the patient subsequently status post laparotomy sigmoid colectomy and diverting colostomy with concern for secondary peritonitis from perforated sigmoid diverticulitis and need to cover for enteric gram-negative both aerobes and anaerobes,patient abdominal cultures grew group B strep and anaerobic gram-negative bacilli, for the patient has received adequate antibiotic therapy 2-the patient CT of abdominal pelvis did shows evidence of high-grade distal small bowel obstruction and is being monitor manage medically, with a repeat CAT scan completed on 08/22/2022 mention no Bowel obstruction or any abscess 3-patient with a new fever possible line related PICC line has been discontinued, cultures are currently growing oxacillin sensitive staph epi and Melissa, patient to continue with Eraxis and cefazolin culture have been repeated document clearance and monitor clinical course closely Time with Patient: Less than 30
[2022-08-26] MEDS ORDERED: VANCOMYCIN TROUGH DUE 1 EACH MISC MISCELLANE ONE (05:00)
[2022-08-26] MEDS: LACTATED RINGERS 1,000 ML IV SCH (05:06)
[2022-08-26 05:52] LABS: Glucose,Whole Blood 106 mg/dL (70-110)
--- NOTE | 2022-08-26 06:47 | P.PN ---
Progress Note - Text Progress Note Date: 08/26/22 Patient remains stable. He has no shortness of breath. His colostomy is functioning. He is currently receiving IV antibiotics for his blood cultures. On exam vital signs are stable. Abdomen is soft incision is healing. Colostomy is functioning.. Status post Judy procedure for perforated diverticula is. Patient will will continue receive IV antibiotic. We anticipate hopefully discharged to rehab on Monday.
[2022-08-26 08:06] LABS: Anisocytosis Slight; HGB 7.9 gm/dL (13.0-17.5); Hypochromasia Slight; MCH 29.6 pg (25.0-35.0); MCHC 31.5 g/dL (31.0-37.0); MCV 93.9 fL (80.0-100.0); Mean Platelet Volume 7.7; Platelet Count 393 k/uL (150-450); RBC 2.66 m/uL (4.30-5.90); RDW 16.1 % (11.5-15.5); WBC 5.5 k/uL (3.8-10.6)
[2022-08-26 08:14] LABS: African American GFR (CKD) 67 (>60 ml/min/1.73 sqM); Anion Gap 3 mmol/L; Blood Urea Nitrogen 18 mg/dL (9-20); Calcium 8.3 mg/dL (8.4-10.2); Carbon Dioxide 31 mmol/L (22-30); Chloride 106 mmol/L (98-107); Glucose 108 mg/dL (74-99); Non-African American GFR(CKD) 58 (>60 ml/min/1.73 sqM); Potassium 3.8 mmol/L (3.5-5.1); Sodium 140 mmol/L (137-145)
--- NOTE | 2022-08-26 09:08 | P.PN ---
Progress Note - Text Progress Note Date: 08/26/22 Patient [place] stable. He has no points abdominal pain. His colostomy dysfunction. On exam vital signs are stable. Abdomen soft. Incision is healing. Colostomy shows gas and stool in the appliance. Status post for perforated diverticula is. Patient's bacteremia is being treated with IV antibiotics.. We will await clearance from infectious disease prior to discharge.
[2022-08-26] MEDS: FORMOTEROL FUMARATE 20 MCG/2 ML NEBU INHALATION SCH ×2 (09:33→20:16)
[2022-08-26] MEDS: IPRATROPIUM-ALBUTEROL 3 ML NEB INHALATION SCH ×4 (09:33→20:17)
[2022-08-26] MEDS: BUDESONIDE 1 MG/2 ML NEBU INHALATION SCH ×2 (09:34→20:17)
[2022-08-26] MEDS: TAMSULOSIN 0.4 MG CAP.ER.24H PO SCH ×2 (09:55→19:57)
[2022-08-26] MEDS: ANIDULAFUNGIN 100 MG in SODIUM CHLORIDE 0.9% 100 ML IVPB SCH (09:55)
[2022-08-26] MEDS: guaiFENesin 600 MG TABLET.ER PO SCH ×2 (09:55→19:57)
[2022-08-26] MEDS: predniSONE 20 MG TAB PO SCH (09:55)
[2022-08-26] MEDS: PANTOPRAZOLE 40 MG/10 ML VIAL IV SCH (09:55)
[2022-08-26] MEDS: ENOXAPARIN 40 MG/0.4 ML SYRINGE SQ SCH (09:56)
[2022-08-26] MEDS: HYDROcodone/APAP 5-325MG 1 EACH TAB PO PRN (10:15)
[2022-08-26 11:40] LABS: Glucose,Whole Blood 126 mg/dL (70-110)
--- NOTE | 2022-08-26 15:26 | P.PN ---
Subjective Progress Note Date: 08/26/22 I was asked to evaluate this patient because of his advanced COPD and ongoing abdominal complications. The patient was seen in the emergency department. The patient is known to have diverticulosis he came in for an acute abdominal pain this morning. CAT scan of the abdomen was done and the patient was found to have acute sigmoid diverticulitis. This was a comp acute diverticulitis as perforation suspected and the patient had pockets of free intraperitoneal air measuring up to 5.5 cm in size. There is also trace lower abdominal ascites. No evidence of any abscess formation. Is also small bowel ileus. There is moderate size hiatal hernia also. The patient has a large prostate. Is known to have prostate cancer. The patient is also known to have advanced COPD. The patient is auction dependent. The patient is steroid dependent and is taking 10 mg of prednisone on a daily basis on outpatient basis. He has been followed up through our office. He has exertional dyspnea which is chronic in his significant limitation in exercise capacity because of his advanced COPD. No chest pain. No worsening shortness of breath. No swelling lower extremities. No previous history of DVT or pulmonary embolism. No nausea or emesis. No aspiration. GI surgeries on the case. Currently is on antibiotics. No plans for any surgery at this point in time. Blood work shows a WBC count of 18, he moglobin 13, normal cognition profile, BUN is 20 over the creatinine of 0.9. LFTs are normal. Lactic acid level is at 1.3. On today's evaluation of 07/30/2022, the patient's abdomen is less tender. The patient remains nothing by mouth. No worsening shortness of breath. The patient is on IV Zosyn. The patient is going to be treated conservatively. White cell count is at 14 with a hemoglobin of 11.1 and a platelet count of 245 noted the white cycles lower compared to yesterday. BUN is at 21 with a creatinine of 1.3. Sodium is at 143. Awake and alert and communicating. He remains on oxygen at 2 L/m nasal cannula. On 07/31/2022, the patient is doing well. No specific complaints. Abdominal pain is subsiding gradually. His COPD remains on IV Zosyn. No plans for any surgical intervention this point in time. The patient is known to have advanced COPD and the patient also has oxygen steroid dependent COPD and the patient is currently on hydrocortisone. IV fluids are in the form of D5 half-normal saline at rate of 100 mL an hour. The white cell count is down to 8.2 with hemoglobin 11.5 and a platelet count of 15. BUN is at 60 with a creatinine of 1 and his sodium level is at 137. The patient is seen today 08/01/2022 in follow-up on the regular medical floor. He is currently sitting up in bed. Awake and alert in no acute distress. Maintaining O2 saturations in the 90s on 2 L/m per nasal cannula. Currently on D5.45 normal saline at 100 ML's per hour. He is continued on Zosyn. His abdominal discomfort is gradually improving. Follow-up chest x-ray continues to show diffuse severe emphysematous changes with coarsened interstitium suspicious for chronic interstitial lung disease. Blood culture reveals no growth. White count 8.1. Hemoglobin 10.5. Platelets 225. Sodium 142. Potassium 3.9. Bicarb 26. BUN 11. Creatinine 1.0. Glucose 165. ProBNP 1500. Troponin negative 1. AST 12. ALT 13. Alk phos 39. Continued on DuoNeb inhalations. Lovenox for DVT prophylaxis. Remains on Solu-Cortef. The patient is seen today 08/02/2022 in follow-up on the regular medical floor. He is awake and alert in no acute distress. Resting fairly comfortably in bed. Maintaining good O2 saturations in the 90s on 2 L/m per nasal cannula. He is receiving D5 and half-normal saline at 100 ML's per hour. Remains on antibiotics in the form of Zosyn. Lovenox for DVT prophylaxis. Continued on Solu-Cortef. His abdominal discomfort is waxing and waning. A little more tender today. He remains nothing by mouth. Blood cultures revealed no growth. Blood glucose 151. Reevaluated today on 08/03/22, patient underwent sigmoid colectomy and end colostomy yesterday by Dr. Moyer mostly because of his sigmoid diverticulitis with perforation and abscess, patient came back to the ICU on mechanical ventilation. Remains intubated and mechanically ventilated. Patient is known to have severe end-stage COPD FEV1 is no more than 26%, however the benefits of the surgery obviously outweighed the risks. And surgery had to be done yesterday because the patient continued to have significant abdominal pain and tenderness. Patient is now on assist control rate of 16, volume 400 FiO2 50% and PEEP of 5, ABG showed a pO2 of 251 pCO2 42 pH of 7.45. His chest x-ray is showing minimal atelectasis, no infiltrate, no evidence of congestive heart failure, his electrolytes are normal renal profile is normal, CBC is relatively unremarkable. Hence I cut down his FiO2 to 35%, patient remains on enteral are at 100 mL an hour he is also on propofol at 50 mcg/kg/m, I have recommended stopping propofol, and was the patient is awake we will recommend checking weani ng parameters, and if reasonable proceed with a pressure support and CPAP with a pressure support of 10, follow-up ABG in 1 hour after being on pressure support and CPAP, and we will likely consider extubation later today. Reevaluated today on 08/04/2022, patient remains in the ICU, he is status post sigmoid colectomy and end colostomy with severe underlying COPD. FEV1 is in the range of 26%, surprisingly the patient is doing better than expected. Patient remains on 4 L nasal cannula with adequate O2 saturation, his ostomy is functioning well, remains on Zosyn, his also on TPN at 50 mL per hour. WBC count is 9.1 hemoglobin is 10.9. Basic metabolic profile is normal renal profile is normal. Chest x-ray yesterday showed minimal interstitial findings and COPD Reevaluated today on 08/05/2022, patient remains in the ICU, doing well, relatively asymptomatic, his ostomy is functioning well, pulmonary status is relatively stable in spite of its severity patient denies any abdominal pain, no shortness of breath, his labs were relatively normal including normal CBC and normal electrolytes normal renal profile hence I will transfer the patient out of the ICU to a regular medical floor. Reevaluated today on 08/06/2022, patient had his nasogastric tube removed yesterday, however he developed abdominal distention and a nasogastric tube was placed back again today significant amount of fluid was noted are of the stomach over 900 mL. Patient felt better nonetheless he remains a bit bloated, now he has a nasogastric tube back in place. Considering his symptoms I'm recommending that we keep him in the ICU today. Pulmonary-[facility] he is doing well in spite of his severe underlying COPD. Labs today showed relatively normal CBC and a relatively normal electrolytes bicarb is 33 BUN is 24 creatinine 0.89. Patient was seen by surgery today/Dr. gurrola, and he is recommending to keep the nasogastric tube in place. Patient was reevaluated today on 08/07/2022, feels less bloated, nasogastric tube remains in place and functional, his colostomy is also functional, he had 450 of NG output overnight. He is afebrile, WBC count is 6.1. Pulmonary-[facility] he is about the same, he has severe COPD but surprisingly not as symptomatic as expected. WBC count 6.1 hemoglobin 10.9 lites are normal renal profile is normal bicarb is 37 The patient is seen today 08/08/2022 in follow-up on the regular medical floor. He has moved out of the ICU yesterday. He is awake and alert in no acute distre ss. Maintaining good O2 saturations in the mid 90s on 3 L/m per nasal cannula. Afebrile. Hemodynamically stable. Nasogastric tube remains in place. Abdominal wound cultures are positive for gram-negative bacilli. Sputum culture revealed no growth. Blood culture reveals no growth. Sodium 137. Potassium 4.0. Bicarb 36. BUN 25. Creatinine 0.95. Glucose 134. She is continued on DuoNeb inhalations, Pulmicort and Perforomist inhalations, Solu-Cortef. Lovenox for DVT prophylaxis. Remains on TPN for nutritional support at 75 ML's per hour. Antibiotics in the form of Zosyn. The patient is seen today 08/09/2022 in follow-up on the regular medical floor. He is currently resting quite comfortably in bed. Awake and alert in no acute distress. Currently on oxygen at 3 L/m per nasal cannula. Being nourished with TPN at 75 ML's per hour. He is receiving lactated Ringer's at 100 ML's per hour. He has some lower extremity edema. White sodium 137. Potassium 3.9. Bicarb 34. BUN 24. Creatinine 1.00. Glucose 136. Abdominal cultures were positive for anaerobic gram-negative bacilli. Sputum culture revealed no growth. He is continued on DuoNeb inhalations, Pulmicort and Perforomist inhalations. Working well with the incentive spirometer. The patient is seen today 08/10/2022 in follow-up on the regular medical floor. He is currently sitting up in bed. Awake and alert in no acute distress. Maintaining good O2 saturations in the 90s on 3 L/m per nasal cannula. Sodium 139. Potassium 3.8. Bicarb 32. BUN 25. Creatinine 1.08. Glucose 127. He is continued on DuoNeb inhalations, Pulmicort and Perforomist inhalations. Chest x-ray showing some atelectasis. Working well with the incentive spirometer. Remains on Lovenox for DVT prophylaxis. His nasogastric tube has been removed. Abdominal x-ray revealed diffusely dilated small bowel loops measuring up to 4.5 cm suggesting postoperative ileus. He remains nothing by mouth except for ice chips per surgical services. Being nourished with TPN at 75 ML's per hour. Patient is seen today 08/11/2022 in follow-up on the regular medical floor. He is resting comfortably in bed. Awake and alert in no acute distress. Maintaining O2 saturations in the 90s on 3 L/m per nasal cannula. He is lactated Ringer's at 10 and I'll's per hour. He is receiving TPN at 75 ML's per hour. He remains on a full liquid diet. Tolerating it well. Ostomy functioning. Blood cultures revealed no growth. Abdominal wound cultures were positive for gram-negative bacilli. Sputum culture revealed no growth. Sodium 139. Potassium 3.7. Bicarb 32. BUN 25. Creatinine 1.02. Glucose 113. He is continued on DuoNeb inhalations, Pulmicort and Perforomist inhalations. The patient is seen today 08/12/2022 in follow-up on the regular medical floor. He is currently resting in bed. He is awake and alert in no acute distress. Maintaining O2 saturations in the 90s on 3 L/m per nasal cannula. Unfortunately he is quite nauseated and has been vomiting on and off since 6 PM last night. Uncomfortable. His abdomen is soft. Colostomy is functioning. Possible ileus. No worsening shortness of breath, cough or congestion. He is continued on DuoNeb inhalations, Pulmicort and Perforomist inhalations, IV Solu-Cortef. He is on antibiotics in the form of Zosyn. White count 10.0. Hemoglobin 11.1. Platelets 443. Sodium 140. Potassium 3.7. Bicarb 36. BUN 23. Creatinine 1.04. Glucose 112. The patient is seen today 08/13/2022 in follow-up on the regular medical floor. He is awake and alert in no acute distress. He is still having ongoing issues with nausea and vomiting. Denies any worsening of breath, cough or congestion. Maintaining good O2 saturations in the 90s liters per minute per nasal cannula. An computed tomography scan of the chest abdomen pelvis with contrast is pending per surgical services. Nasogastric tube to be reinserted. Sodium 138. Potassium 3.5. Bicarb 35. BUN 32. Creatinine 1.16. Glucose 195. He remains on DuoNeb inhalations, Pulmicort and Perforomist inhalations, Solu-Cortef. Being nourished with TPN at 60 ML's per hour. Lactated Ringer's at 20 MLS per hour. He remains on antibiotics in the form of Zosyn. Lovenox for DVT prophylaxis. The patient is seen today 08/14/2022 in follow-up on the regular medical floor. He is currently resting in bed. Awake and alert in no acute distress. He is having ongoing issues with abdominal distention and nausea. He's had 2 NG tubes replaced and was subsequent inadvertentaccidental removal. Computed tomography scan of the abdomen revealed high-grade distal small bowel obstruction with transition point identified presumed related to adhesions. Interval partial colectomy and colostomy changes noted. Plan is to replace the NG tube again and keep him nothing by mouth. He is maintaining good O2 saturations in the mid 90s on 3 L nasal cannula. Continued on bronchodilators. Continued on TPN. The patient is seen today 08/15/2022 in follow-up on the regular medical floor. He is awake and alert in no acute distress. Feeling better since the nasogastric tube was placed. No nausea or vomiting. Still with some abdominal tenderness. Ostomy has a small amount of stool in it. The left-sided PICC line in place. No evidence of left upper extremity DVT per Doppler. Chest x-ray revealed evidence of COPD but no acute pulmonary process. Nasogastric tube in appropriate place. Abdominal wound cultures revealed gram-negative bacilli. Strep agalactiae, group B. White count 6.1. Hemoglobin 7.7. Platelets 339. Sodium 141. Potassium 3.2. Bicarb 30. BUN 31. Creatinine 1.19. Glucose 118. He remains on TPN, lipids for nutritional support. Remains on antibiotics in the form of Zosyn. Continued on bronchodilators, site Cortef. Remains on IV diuretics. Currently in a -4.8 L balance. The patient is seen today 08/22/2022 in follow-up on the regular medical floor. He again had a nasogastric tube removed. Still was somewhat distended abdomen. Still with some abdominal discomfort. No output in the ostomy currently. Computed tomography scan of the abdomen and pelvis is pending. He is being nourished with TPN at 80 MLS per hour. Sodium 136. Potassium 4.7. Bicarb 25. BUN 36. Creatinine 1.07. Glucose 134. He is maintaining good O2 saturations in the mid to upper 90s on 3 L/m per nasal cannula. He is afebrile. He is continued on DuoNeb inhalations, Pulmicort and Perforomist inhalations, Solu- Cortef. Lovenox for DVT prophylaxis. The patient is seen today 08/23/2022 in follow-up on the regular medical floor. He is maintaining good O2 saturations in the 90s on 3 L/m per nasal cannula. He is doing better today. No worsening abdominal discomfort. Ostomy is functioning. Computed tomography scan of the abdomen yesterday ruled out ileus. No new ascites. Resolved small left pleural effusion. Improved soft tissue subcutaneous edema noted. Chest x-ray continues to show diffuse emphysematous changes with improving left basilar atelectasis/infiltrate. Left-sided PICC line appears in place. He did have a temperature of 102.7 earlier this morning. He's been initiated on vancomycin. White count 7.9. Hemoglobin 8.3. Platelets 248. Sodium 134. Potassium 4.6. A carb 25. BUN 26. Creatinine 0.95. Glucose 126. He remains on TPN and lipids for nutritional support. He is back and a full liquid diet. Lovenox for DVT prophylaxis. The patient is seen today 08/24/2022 in follow-up on the regular medical floor. He is awake and alert in no acute distress. Sitting up in bed. Maintaining good O2 saturations in the upper 90s on 3 L/m per nasal cannula. Afebrile. Hemodynamically stable. Denies any worsening abdominal discomfort. Ostomy is functioning. No nausea or vomiting. Tolerating a full liquid diet. White count 5.7. Hemoglobin 7.8. Platelets 248. Sodium 136. Potassium 4.1. Bicarb 20. BUN 22. Creatinine 0.97. He has been initiated on Eraxis and cefazolin per ID services today. The patient is seen today 08/25/2022 in follow-up on the regular medical floor. Sitting up in bed. Awake and alert in no acute distress. Denies any worsening shortness of breath, cough or congestion. Denies any worsening abdominal pain, nausea or vomiting. Follow-up blood cultures positive for oxacillin sensitive staph epi and Melissa. He is on Eraxis and cefazolin. PICC line was discontinued. White count 5.4. Hemoglobin 6.8. Platelets 308. Sodium 137. Potassium 4.3. Bicarb 28. BUN 22. Creatinine 0.92. Glucose 102. The patient is seen today 08/26/2022 in follow-up on the regular medical floor. Awake and alert in no acute distress. Denies any shortness of breath, cough or congestion. Denies any significant abdominal discomfort. Blood culture was positive for yeast and he remains on Eraxis. Continued on cefazolin. White count 5.5. Hemoglobin 7.9. Platelets 393. Sodium 140. Potassium 3.8. Bicarb 31.. 2. Creatinine 1.24. Glucose 108. Continued on bronchodilators, prednisone taper. Tolerating a diet. Plan is for ECF on 08/29/2021. Objective - Vital Signs Vital signs: Vital Signs Temp 98.0 F 08/26/22 14:55 Pulse 86 08/26/22 14:55 Resp 22 08/26/22 14:55 BP 109/68 08/26/22 14:55 Pulse Ox 98 08/26/22 14:55 FiO2 35 08/03/22 12:00 Intake & Output 08/25/22 08/26/22 08/26/22 18:59 06:59 18:59 Output Total 700 500 Balance -700 -500 Weight 73.4 kg 73.4 kg Output: Urine 700 500 Other: Voiding Method Indwelling Catheter Indwelling Catheter # Voids 1 # Bowel Movements 1 - Exam GENERAL EXAM: Alert, pleasant, thin 72-year-old male, resting in bed, on 3 L nasal cannula, in no acute distress. HEAD: Normocephalic. EYES: Normal reaction of pupils, equal size. NOSE: Clear with pink turbinates. THROAT: No erythema or exudates. NECK: No masses, no JVD. CHEST: No chest wall deformity. LUNGS: Equal air entry with bilateral end expiratory wheeze, diminished. CVS: S1 and S2 normal with no audible murmur, regular rhythm. ABDOMEN: Postsurgical changes. Ostomy intact. Stool noted within ostomy. SPINE: No scoliosis or deformity SKIN: No rashes CENTRAL NERVOUS SYSTEM: No focal deficits, tone is normal in all 4 extremities. EXTREMITIES: There is no peripheral edema. No clubbing, no cyanosis. Peripheral pulses are intact. - Labs CBC & Chem 7: 08/26/22 07:37 08/26/22 07:37 Labs: Abnormal Lab Results - Last 24 Hours (Table) 08/25/22 08/25/22 08/26/22 Range/Units 16:25 20:58 07:37 RBC 2.66 L (4.30-5.90) m/uL Hgb 7.9 L (13.0-17.5) gm/dL Hct 25.0 L (39.0-53.0) % RDW 16.1 H (11.5-15.5) % Carbon Dioxide (22-30) mmol/L Glucose (74-99) mg/dL POC Glucose (mg/dL) 203 H 144 H (70-110) mg/dL Calcium (8.4-10.2) mg/dL 08/26/22 08/26/22 Range/Units 07:37 11:36 RBC (4.30-5.90) m/uL Hgb (13.0-17.5) gm/dL Hct (39.0-53.0) % RDW (11.5-15.5) % Carbon Dioxide 31 H (22-30) mmol/L Glucose 108 H (74-99) mg/dL POC Glucose (mg/dL) 126 H (70-110) mg/dL Calcium 8.3 L (8.4-10.2) mg/dL Microbiology - Last 24 Hours (Table) 08/23/22 13:02 Blood Culture Gram Stain - Preliminary Blood Assessment and Plan Assessment: Acute perforated sigmoid diverticulitis with abscess, status post sigmoid colectomy and end colostomy on 08/02/2022. Nasogastric tube removed. Abdominal x-ray revealed diffusely dilated small bowel loops measuring up to 4.5 cm suggesting postoperative ileus. There is liquid stool and gas in the ostomy. On 08/12/2022 seconds issues with nausea and vomiting. Still with some nausea and vomiting 08/13/2022. Computed tomography scan confirmed a high-grade distal small bowel obstruction with transition point identified presumed related to adhesions. Interval partial colectomy and colostomy changes noted. Nasogastric tube was reinserted. A repeat CAT scan of the abdomen on 08/16/2022 showed persistent transition zone in the upper pelvis could be related to partial obstruction versus ileus. There was also dilated small loops of small bowel improved compared to the earlier CAT scan of the abdomen and pelvis that was done on 08/13/2022. The patient was again having abdominal discomfort and distention 08/22/2022 and computed tomography scan of the abdomen and pelvis revealed no evidence of ileus or obstruction. Resumed regular diet. Obstructive uropathy post Art catheter removal. The catheter was reinserted Febrile illness 08/23/2022, follow-up blood cultures pending, now on Eraxis and cefazolin Acute anemia 08/25/2022 with a hemoglobin of 6.8. No signs of active bleeding, current hemoglobin 7.9 History of diverticulosis Recent hospitalization for an acute COPD exacerbation back in June 2022, treated and the patient has recovered Advanced COPD with an FEV1 of 26% of predicted, the patient is chronically oxygen and steroid dependent taking prednisone 10 mg by mouth daily. Ex-smoker and the patient quit smoking 2 years ago Chronic hypoxic respiratory failure maintained on O2 at 2 L nasal cannula Prostate cancer Acid reflux Plan: The patient was seen and evaluated Medications and labs reviewed On Eraxis and cefazolin Increase his activity as tolerated Tolerating a regular diet Plan is for subacute rehab 08/29/2022 We will continue to follow I have personally seen and examined the patient, performed the documentation and the assessment and plan as written. Number of minutes spent on the visit: 10.
--- NOTE | 2022-08-26 16:00 | P.PN ---
Subjective Progress Note Date: 08/26/22 Patient is a 72-year-old male with COPD on home O2 at 3 L, diverticulosis and GERD who initially presented to the ER with complaints of abdominal pain. CT abdomen and pelvis showed acute sigmoid diverticulitis complicated by perforation with pockets of free intraperitoneal air measuring up to 5.5 cm acco mpanied by trace lower abdominal ascites, secondary small bowel ileus, moderate sized hiatal hernia, mild circumferential distal esophageal wall thickening, and prostamegaly. Patient was admitted to general surgery and we are consulted for medical management. He underwent sigmoidectomy with end colostomy on 08/02 and was transported to the ICU where he was extubated on 08/03. NG tube was initially removed on 08/09. It was reinserted on 08/13. NG tube was a removed overnight between 08/13-08/14 was then replaced on 08/14. Venous Doppler from 08/14-no evidence of upper extremity DVT, PICC line in place NGT removed on 08/19/22 CT abdomen and pelvis 08/22/22 Normal bowel traction currently, no new ascites, small left pleural effusion, improved soft tissue subcutaneous edema. Fevers on 08/23- blood cultures ordered and PICC line removed. Patient seen and examined. He reports on and off abdominal pain. No N/V. Tolerating diet. Repeat blood cultures ordered for today. PICC line tip culture pending. Vital signs reviewed General: nontoxic, no distress, appears at stated age Derm: Multiple areas of Ecchymosis in various stages of healing Cardiovascular: S1S2 reg, no murmur Lungs: Coarse bs bilateral, no rhonchi, no rales , no accessory muscle use Abdominal: soft, + tender to palpation LLQ, no guarding, no appreciable organomegaly Ext: no gross muscle atrophy, no edema, no contractures Neuro: no focal neuro deficits Psych: Alert, oriented, appropriate affect Assessment: Candidemia with sepsis- await formal blood culture and PICC tip culture Acute perforated diverticulitis with abscess (Group B strep and anerobic bacilli) Sigmoid colectomy with end colostomy on 08/02/2032 Anemia, iron deficiency likely with acute blood loss Chronic/Resolved: Ileus Metabolic alkalosis, resolved COPD on chronic prednisone, not in exacerbation Chronic hypoxemic respiratory failure on 2 L home O2 Imaging: none new Data Review: Vital signs reviewed in T-max in the last 24 hours 98.4 Labs reviewed from today and remarkable for hemoglobin of 7.9 Blood culture- Melissa on gram stain Await repeat blood cultures Plan: -Surgical note reviewed from 08/26: Continue full liquid diet, antibiotic recommendation prior to discharge -Pulmonary note reviewed from 08/25: No new recommendations -Infectious disease note reviewed from 08/25: Cefazolin and Eraxis, follow blood cultures daily until clear -Eraxis and cefazolin day #2 - Completed Zosyn 20 days - Prednisone 20 mg resumed on 08/23/22 -Protonix 40 mg IV daily -Continue with bronchdilators -Patient continues to require Dilaudid 0.5 mg every 3 hours as needed for pain - TPN completed on 08/23/22. Had 21 days, PICC line removed 08/23/22 - Completed 3 days of IV iron DVT prophylaxis: Lovenox This dictation was prepared using [employer] voice recognition software. Though every attempt is made to correct errors during during dictation some may still exist. Objective - Vital Signs Vital signs: Vital Signs Temp 98.0 F 08/26/22 14:55 Pulse 86 08/26/22 14:55 Resp 22 08/26/22 14:55 BP 109/68 08/26/22 14:55 Pulse Ox 98 08/26/22 14:55 FiO2 35 08/03/22 12:00 Intake & Output 08/25/22 08/26/22 08/26/22 18:59 06:59 18:59 Output Total 700 500 Balance -700 -500 Weight 73.4 kg 73.4 kg Output: Urine 700 500 Other: Voiding Method Indwelling Catheter Indwelling Catheter # Voids 1 # Bowel Movements 1 - Labs CBC & Chem 7: 08/26/22 07:37 08/26/22 07:37 Labs: Abnormal Lab Results - Last 24 Hours (Table) 08/25/22 08/25/22 08/26/22 Range/Units 16:25 20:58 07:37 RBC 2.66 L (4.30-5.90) m/uL Hgb 7.9 L (13.0-17.5) gm/dL Hct 25.0 L (39.0-53.0) % RDW 16.1 H (11.5-15.5) % Carbon Dioxide (22-30) mmol/L Glucose (74-99) mg/dL POC Glucose (mg/dL) 203 H 144 H (70-110) mg/dL Calcium (8.4-10.2) mg/dL 08/26/22 08/26/22 Range/Units 07:37 11:36 RBC (4.30-5.90) m/uL Hgb (13.0-17.5) gm/dL Hct (39.0-53.0) % RDW (11.5-15.5) % Carbon Dioxide 31 H (22-30) mmol/L Glucose 108 H (74-99) mg/dL POC Glucose (mg/dL) 126 H (70-110) mg/dL Calcium 8.3 L (8.4-10.2) mg/dL Microbiology - Last 24 Hours (Table) 08/23/22 13:02 Blood Culture Gram Stain - Preliminary Blood
--- NOTE | 2022-08-26 16:13 | P.PN ---
Subjective Progress Note Date: 08/26/22 Principal diagnosis: Perforated diverticulitis and peritonitis Patient is a 72-year-old male presenting to the hospital abdominal pain has been diagnosed with acute diverticulitis with perforation treated medically did not have improvement subsequently was taken to the OR on 08/02/2022 and the patient is status post laparotomy; colectomy and diverting colostomy. On today's evaluation that is 08/26/2022, the patient continues to be afebrile, patient is breathing comfortably on 3L nasal cannula oxygen, patient denies having any nausea or vomiting, the patient has been tolerating his diet , the patient denies any vomiting and abdominal pain is controlled, no new symptoms Objective - Vital Signs Vital signs: Vital Signs Temp 98.0 F 08/26/22 07:49 Pulse 87 08/26/22 09:53 Resp 20 08/26/22 07:49 BP 115/74 08/26/22 07:49 Pulse Ox 98 08/26/22 09:36 FiO2 35 08/03/22 12:00 Intake & Output 08/25/22 08/26/22 08/26/22 18:59 06:59 18:59 Output Total 700 500 Balance -700 -500 Weight 73.4 kg Output: Urine 700 500 Other: Voiding Method Indwelling Catheter Indwelling Catheter # Voids 1 # Bowel Movements 1 - Exam GENERAL DESCRIPTION: An elderly male lying in bed in no distress RESPIRATORY SYSTEM: Unlabored breathing , decreased breath sounds at bases HEART: S1 S2 regular rate and rhythm , ABDOMEN: Soft , no tenderness EXTREMITIES: Did have extensive bruising to the upper extremity especially the left arm - Labs CBC & Chem 7: 08/26/22 07:37 08/26/22 07:37 Labs: Abnormal Lab Results - Last 24 Hours (Table) 08/25/22 08/25/22 08/25/22 Range/Units 13:14 16:25 20:58 RBC 2.88 L (4.30-5.90) m/uL Hgb 8.4 L D (13.0-17.5) gm/dL Hct 27.0 L (39.0-53.0) % RDW 15.7 H (11.5-15.5) % Carbon Dioxide (22-30) mmol/L Glucose (74-99) mg/dL POC Glucose (mg/dL) 203 H 144 H (70-110) mg/dL Calcium (8.4-10.2) mg/dL 08/26/22 08/26/22 08/26/22 Range/Units 07:37 07:37 11:36 RBC 2.66 L (4.30-5.90) m/uL Hgb 7.9 L (13.0-17.5) gm/dL Hct 25.0 L (39.0-53.0) % RDW 16.1 H (11.5-15.5) % Carbon Dioxide 31 H (22-30) mmol/L Glucose 108 H (74-99) mg/dL POC Glucose (mg/dL) 126 H (70-110) mg/dL Calcium 8.3 L (8.4-10.2) mg/dL Microbiology - Last 24 Hours (Table) 08/23/22 13:02 Blood Culture Gram Stain - Preliminary Blood Assessment and Plan (1) Bacteremia Current Visit: Yes Status: Acute Code(s): R78.81 - BACTEREMIA SNOMED Code(s): 5562118 (2) Fungemia Current Visit: Yes Status: Acute Code(s): B49 - UNSPECIFIED MYCOSIS SNOMED Code(s): 958228969 Plan: 1patient was in the hospital with abdominal pain has been diagnosed with a complicated diverticulitis failing medical therapy and the patient subsequently status post laparotomy sigmoid colectomy and diverting colostomy with concern for secondary peritonitis from perforated sigmoid diverticulitis and need to cover for enteric gram-negative both aerobes and anaerobes,patient abdominal cultures grew group B strep and anaerobic gram-negative bacilli, for the patient has received adequate antibiotic therapy 2-the patient CT of abdominal pelvis did shows evidence of high-grade distal small bowel obstruction and is being monitor manage medically, with a repeat CAT scan completed on 08/22/2022 mention no Bowel obstruction or any abscess 3-patient with a new fever possible line related PICC line has been discontinued, cultures are currently growing oxacillin sensitive staph epi and Melissa, patient seemed to have shown clinical improvement and will continue with Eraxis and cefazolin and monitor clinical course closely Time with Patient: Less than 30
[2022-08-26] MEDS: MIRTAZAPINE 15 MG TAB PO SCH (19:57)
[2022-08-27] MEDS: LACTATED RINGERS 1,000 ML IV SCH (03:22)
--- NOTE | 2022-08-27 07:06 | P.PN ---
Progress Note - Text Progress Note Date: 08/27/22 Patient's resting comfortably in his bed. He still mildly short of breath. On exam vital signs appear stable. Abdomen soft. Colostomy function. Status post Judy procedure for perforated diverticula is. Patient's bacteremia is being treated with IV antibiotics. He will remain on IV ant ibiotics Monday. Hopefully we will transferred ECF on Monday.
[2022-08-27] MEDS: ENOXAPARIN 40 MG/0.4 ML SYRINGE SQ SCH (09:06)
[2022-08-27] MEDS: TAMSULOSIN 0.4 MG CAP.ER.24H PO SCH ×2 (09:06→21:26)
[2022-08-27] MEDS: PANTOPRAZOLE 40 MG/10 ML VIAL IV SCH (09:06)
[2022-08-27] MEDS: ANIDULAFUNGIN 100 MG in SODIUM CHLORIDE 0.9% 100 ML IVPB SCH (09:06)
[2022-08-27] MEDS: guaiFENesin 600 MG TABLET.ER PO SCH ×2 (09:06→21:50)
[2022-08-27] MEDS: predniSONE 20 MG TAB PO SCH (09:06)
[2022-08-27] MEDS: FORMOTEROL FUMARATE 20 MCG/2 ML NEBU INHALATION SCH ×2 (09:36→21:30)
[2022-08-27] MEDS: BUDESONIDE 1 MG/2 ML NEBU INHALATION SCH ×2 (09:37→21:30)
[2022-08-27] MEDS: IPRATROPIUM-ALBUTEROL 3 ML NEB INHALATION SCH ×4 (09:37→21:30)
--- NOTE | 2022-08-27 10:15 | P.PN ---
Subjective Progress Note Date: 08/27/22 Principal diagnosis: Perforated diverticulitis and peritonitis Patient is a 72-year-old male presenting to the hospital abdominal pain has been diagnosed with acute diverticulitis with perforation treated medically did not have improvement subsequently was taken to the OR on 08/02/2022 and the patient is status post laparotomy; colectomy and diverting colostomy. On today's evaluation that is 08/27/2022, the patient remains to be afebrile, patient is breathing comfortably on 3L nasal cannula oxygen, patient denies having any nausea or vomiting and has been tolerating his diet , the patient abdominal pain is controlled, feeling better Objective - Vital Signs Vital signs: Vital Signs Temp 98.1 F 08/27/22 01:10 Pulse 96 08/27/22 01:10 Resp 19 08/27/22 01:10 BP 115/70 08/27/22 01:10 Pulse Ox 100 08/27/22 01:10 FiO2 35 08/03/22 12:00 Intake & Output 08/26/22 08/27/22 08/27/22 18:59 06:59 18:59 Output Total 800 850 Balance -800 -850 Weight 73.4 kg Output: Urine 800 850 Other: Voiding Method Indwelling Catheter Indwelling Catheter # Bowel Movements 1 - Exam GENERAL DESCRIPTION: An elderly male lying in bed in no distress RESPIRATORY SYSTEM: Unlabored breathing , decreased breath sounds at bases HEART: S1 S2 regular rate and rhythm , ABDOMEN: Soft , no tenderness EXTREMITIES: Did have extensive bruising to the upper extremity especially the left arm - Labs CBC & Chem 7: 08/26/22 07:37 08/26/22 07:37 Labs: Abnormal Lab Results - Last 24 Hours (Table) 08/26/22 08/26/22 08/26/22 Range/Units 07:37 07:37 11:36 RBC 2.66 L (4.30-5.90) m/uL Hgb 7.9 L (13.0-17.5) gm/dL Hct 25.0 L (39.0-53.0) % RDW 16.1 H (11.5-15.5) % Carbon Dioxide 31 H (22-30) mmol/L Glucose 108 H (74-99) mg/dL POC Glucose (mg/dL) 126 H (70-110) mg/dL Calcium 8.3 L (8.4-10.2) mg/dL Microbiology - Last 24 Hours (Table) 08/23/22 13:02 Blood Culture Gram Stain - Preliminary Blood Assessment and Plan (1) Bacteremia Current Visit: Yes Status: Acute Code(s): R78.81 - BACTEREMIA SNOMED Code(s): 9688942 (2) Fungemia Current Visit: Yes Status: Acute Code(s): B49 - UNSPECIFIED MYCOSIS SNOMED Code(s): 635788159 Plan: 1patient was in the hospital with abdominal pain has been diagnosed with a complicated diverticulitis failing medical therapy and the patient subsequently status post laparotomy sigmoid colectomy and diverting colostomy with concern f or secondary peritonitis from perforated sigmoid diverticulitis and need to cover for enteric gram-negative both aerobes and anaerobes,patient abdominal cultures grew group B strep and anaerobic gram-negative bacilli, for the patient has received adequate antibiotic therapy 2-the patient CT of abdominal pelvis did shows evidence of high-grade distal small bowel obstruction and is being monitor manage medically, with a repeat CAT scan completed on 08/22/2022 mention no Bowel obstruction or any abscess 3-patient with a new fever possible line related PICC line has been discontinued, cultures are currently growing oxacillin sensitive staph epi and Melissa, patient seemed to have shown clinical improvement and will continue with Eraxis and cefazolin repeat cultures are so far pending and will wait for them to be finalize Time with Patient: Less than 30
--- NOTE | 2022-08-27 12:54 | P.PN ---
Subjective Progress Note Date: 08/27/22 Patient is a 72-year-old male with COPD on home O2 at 3 L, diverticulosis and GERD who initially presented to the ER with complaints of abdominal pain. CT abdomen and pelvis showed acute sigmoid diverticulitis complicated by perforation with pockets of free intraperitoneal air measuring up to 5.5 cm acco mpanied by trace lower abdominal ascites, secondary small bowel ileus, moderate sized hiatal hernia, mild circumferential distal esophageal wall thickening, and prostamegaly. Patient was admitted to general surgery and we are consulted for medical management. He underwent sigmoidectomy with end colostomy on 08/02 and was transported to the ICU where he was extubated on 08/03. NG tube was initially removed on 08/09. It was reinserted on 08/13. NG tube was a removed overnight between 08/13-08/14 was then replaced on 08/14. Venous Doppler from 08/14-no evidence of upper extremity DVT, PICC line in place NGT removed on 08/19/22 CT abdomen and pelvis 08/22/22 Normal bowel traction currently, no new ascites, small left pleural effusion, improved soft tissue subcutaneous edema. Fevers on 08/23- blood cultures ordered and PICC line removed. Patient seen and examined. He reports on and off abdominal pain. No N/V. Tolerating diet. PICC line tip and repeat blood culture pending. Vital signs reviewed General: nontoxic, no distress, appears at stated age Derm: Multiple areas of Ecchymosis in various stages of healing Cardiovascular: S1S2 reg, no murmur Lungs: Coarse bs bilateral, no rhonchi, no rales , no accessory muscle use Abdominal: soft, + tender to palpation LLQ, no guarding, no appreciable organomegaly Ext: no gross muscle atrophy, no edema, no contractures Neuro: no focal neuro deficits Psych: Alert, oriented, appropriate affect Assessment: Candidemia with sepsis- await formal blood culture and PICC tip culture Acute perforated diverticulitis with abscess (Group B strep and anerobic bacilli) Sigmoid colectomy with end colostomy on 08/02/2032 Anemia, iron deficiency likely with acute blood loss Chronic/Resolved: Ileus Metabolic alkalosis, resolved COPD on chronic prednisone, not in exacerbation Chronic hypoxemic respiratory failure on 2 L home O2 Data Review: Blood culture- Melissa on gram stain Await repeat blood cultures Plan: -Surgical note reviewed from 08/27: Continue full liquid diet, antibiotic recommendation prior to discharge -Pulmonary note reviewed from 08/26: No new recommendations -Infectious disease note reviewed from 08/27: Cefazolin and Eraxis, follow blood cultures daily until clear -Eraxis and cefazolin day #2 - Completed Zosyn 20 days - Prednisone 20 mg resumed on 08/23/22 - Protonix 40 mg IV daily - Continue with bronchdilators - Patient continues to require Dilaudid 0.5 mg every 3 hours as needed for pain - TPN completed on 08/23/22. Had 21 days, PICC line removed 08/23/22 - Completed 3 days of IV iron DVT prophylaxis: Lovenox This dictation was prepared using [employer] voice recognition software. Though every attempt is made to correct errors during during dictation some may still exist. Objective - Vital Signs Vital signs: Vital Signs Temp 98.3 F 08/27/22 07:45 Pulse 92 08/27/22 12:48 Resp 18 08/27/22 12:48 BP 117/54 08/27/22 07:45 Pulse Ox 99 08/27/22 09:37 FiO2 35 08/03/22 12:00 Intake & Output 08/26/22 08/27/22 08/27/22 18:59 06:59 18:59 Output Total 800 850 50 Balance -800 -850 -50 Weight 73.4 kg Output: Urine 800 850 Stool 50 Other: Voiding Method Indwelling Catheter Indwelling Catheter # Bowel Movements 1 - Labs CBC & Chem 7: 08/26/22 07:37 08/26/22 07:37 Labs: Microbiology - Last 24 Hours (Table) 08/23/22 13:02 Blood Culture Gram Stain - Preliminary Blood
--- NOTE | 2022-08-27 13:28 | P.PN ---
Subjective Progress Note Date: 08/27/22 I was asked to evaluate this patient because of his advanced COPD and ongoing abdominal complications. The patient was seen in the emergency department. The patient is known to have diverticulosis he came in for an acute abdominal pain this morning. CAT scan of the abdomen was done and the patient was found to have acute sigmoid diverticulitis. This was a comp acute diverticulitis as perforation suspected and the patient had pockets of free intraperitoneal air measuring up to 5.5 cm in size. There is also trace lower abdominal ascites. No evidence of any abscess formation. Is also small bowel ileus. There is moderate size hiatal hernia also. The patient has a large prostate. Is known to have prostate cancer. The patient is also known to have advanced COPD. The patient is auction dependent. The patient is steroid dependent and is taking 10 mg of prednisone on a daily basis on outpatient basis. He has been followed up through our office. He has exertional dyspnea which is chronic in his significant limitation in exercise capacity because of his advanced COPD. No chest pain. No worsening shortness of breath. No swelling lower extremities. No previous history of DVT or pulmonary embolism. No nausea or emesis. No aspiration. GI surgeries on the case. Currently is on antibiotics. No plans for any surgery at this point in time. Blood work shows a WBC count of 18, he moglobin 13, normal cognition profile, BUN is 20 over the creatinine of 0.9. LFTs are normal. Lactic acid level is at 1.3. On today's evaluation of 07/30/2022, the patient's abdomen is less tender. The patient remains nothing by mouth. No worsening shortness of breath. The patient is on IV Zosyn. The patient is going to be treated conservatively. White cell count is at 14 with a hemoglobin of 11.1 and a platelet count of 245 noted the white cycles lower compared to yesterday. BUN is at 21 with a creatinine of 1.3. Sodium is at 143. Awake and alert and communicating. He remains on oxygen at 2 L/m nasal cannula. On 07/31/2022, the patient is doing well. No specific complaints. Abdominal pain is subsiding gradually. His COPD remains on IV Zosyn. No plans for any surgical intervention this point in time. The patient is known to have advanced COPD and the patient also has oxygen steroid dependent COPD and the patient is currently on hydrocortisone. IV fluids are in the form of D5 half-normal saline at rate of 100 mL an hour. The white cell count is down to 8.2 with hemoglobin 11.5 and a platelet count of 15. BUN is at 60 with a creatinine of 1 and his sodium level is at 137. The patient is seen today 08/01/2022 in follow-up on the regular medical floor. He is currently sitting up in bed. Awake and alert in no acute distress. Maintaining O2 saturations in the 90s on 2 L/m per nasal cannula. Currently on D5.45 normal saline at 100 ML's per hour. He is continued on Zosyn. His abdominal discomfort is gradually improving. Follow-up chest x-ray continues to show diffuse severe emphysematous changes with coarsened interstitium suspicious for chronic interstitial lung disease. Blood culture reveals no growth. White count 8.1. Hemoglobin 10.5. Platelets 225. Sodium 142. Potassium 3.9. Bicarb 26. BUN 11. Creatinine 1.0. Glucose 165. ProBNP 1500. Troponin negative 1. AST 12. ALT 13. Alk phos 39. Continued on DuoNeb inhalations. Lovenox for DVT prophylaxis. Remains on Solu-Cortef. The patient is seen today 08/02/2022 in follow-up on the regular medical floor. He is awake and alert in no acute distress. Resting fairly comfortably in bed. Maintaining good O2 saturations in the 90s on 2 L/m per nasal cannula. He is receiving D5 and half-normal saline at 100 ML's per hour. Remains on antibiotics in the form of Zosyn. Lovenox for DVT prophylaxis. Continued on Solu-Cortef. His abdominal discomfort is waxing and waning. A little more tender today. He remains nothing by mouth. Blood cultures revealed no growth. Blood glucose 151. Reevaluated today on 08/03/22, patient underwent sigmoid colectomy and end colostomy yesterday by Dr. Moyer mostly because of his sigmoid diverticulitis with perforation and abscess, patient came back to the ICU on mechanical ventilation. Remains intubated and mechanically ventilated. Patient is known to have severe end-stage COPD FEV1 is no more than 26%, however the benefits of the surgery obviously outweighed the risks. And surgery had to be done yesterday because the patient continued to have significant abdominal pain and tenderness. Patient is now on assist control rate of 16, volume 400 FiO2 50% and PEEP of 5, ABG showed a pO2 of 251 pCO2 42 pH of 7.45. His chest x-ray is showing minimal atelectasis, no infiltrate, no evidence of congestive heart failure, his electrolytes are normal renal profile is normal, CBC is relatively unremarkable. Hence I cut down his FiO2 to 35%, patient remains on enteral are at 100 mL an hour he is also on propofol at 50 mcg/kg/m, I have recommended stopping propofol, and was the patient is awake we will recommend checking weani ng parameters, and if reasonable proceed with a pressure support and CPAP with a pressure support of 10, follow-up ABG in 1 hour after being on pressure support and CPAP, and we will likely consider extubation later today. Reevaluated today on 08/04/2022, patient remains in the ICU, he is status post sigmoid colectomy and end colostomy with severe underlying COPD. FEV1 is in the range of 26%, surprisingly the patient is doing better than expected. Patient remains on 4 L nasal cannula with adequate O2 saturation, his ostomy is functioning well, remains on Zosyn, his also on TPN at 50 mL per hour. WBC count is 9.1 hemoglobin is 10.9. Basic metabolic profile is normal renal profile is normal. Chest x-ray yesterday showed minimal interstitial findings and COPD Reevaluated today on 08/05/2022, patient remains in the ICU, doing well, relatively asymptomatic, his ostomy is functioning well, pulmonary status is relatively stable in spite of its severity patient denies any abdominal pain, no shortness of breath, his labs were relatively normal including normal CBC and normal electrolytes normal renal profile hence I will transfer the patient out of the ICU to a regular medical floor. Reevaluated today on 08/06/2022, patient had his nasogastric tube removed yesterday, however he developed abdominal distention and a nasogastric tube was placed back again today significant amount of fluid was noted are of the stomach over 900 mL. Patient felt better nonetheless he remains a bit bloated, now he has a nasogastric tube back in place. Considering his symptoms I'm recommending that we keep him in the ICU today. [facility]monary-[facility] he is doing well in spite of his severe underlying COPD. Labs today showed relatively normal CBC and a relatively normal electrolytes bicarb is 33 BUN is 24 creatinine 0.89. Patient was seen by surgery today/Dr. gurrola, and he is recommending to keep the nasogastric tube in place. Patient was reevaluated today on 08/07/2022, feels less bloated, nasogastric tube remains in place and functional, his colostomy is also functional, he had 450 of NG output overnight. He is afebrile, WBC count is 6.1. Pulmonary-[facility] he is about the same, he has severe COPD but surprisingly not as symptomatic as expected. WBC count 6.1 hemoglobin 10.9 lites are normal renal profile is normal bicarb is 37 The patient is seen today 08/08/2022 in follow-up on the regular medical floor. He has moved out of the ICU yesterday. He is awake and alert in no acute distre ss. Maintaining good O2 saturations in the mid 90s on 3 L/m per nasal cannula. Afebrile. Hemodynamically stable. Nasogastric tube remains in place. Abdominal wound cultures are positive for gram-negative bacilli. Sputum culture revealed no growth. Blood culture reveals no growth. Sodium 137. Potassium 4.0. Bicarb 36. BUN 25. Creatinine 0.95. Glucose 134. She is continued on DuoNeb inhalations, Pulmicort and Perforomist inhalations, Solu-Cortef. Lovenox for DVT prophylaxis. Remains on TPN for nutritional support at 75 ML's per hour. Antibiotics in the form of Zosyn. The patient is seen today 08/09/2022 in follow-up on the regular medical floor. He is currently resting quite comfortably in bed. Awake and alert in no acute distress. Currently on oxygen at 3 L/m per nasal cannula. Being nourished with TPN at 75 ML's per hour. He is receiving lactated Ringer's at 100 ML's per hour. He has some lower extremity edema. White sodium 137. Potassium 3.9. Bicarb 34. BUN 24. Creatinine 1.00. Glucose 136. Abdominal cultures were positive for anaerobic gram-negative bacilli. Sputum culture revealed no growth. He is continued on DuoNeb inhalations, Pulmicort and Perforomist inhalations. Working well with the incentive spirometer. The patient is seen today 08/10/2022 in follow-up on the regular medical floor. He is currently sitting up in bed. Awake and alert in no acute distress. Maintaining good O2 saturations in the 90s on 3 L/m per nasal cannula. Sodium 139. Potassium 3.8. Bicarb 32. BUN 25. Creatinine 1.08. Glucose 127. He is continued on DuoNeb inhalations, Pulmicort and Perforomist inhalations. Chest x-ray showing some atelectasis. Working well with the incentive spirometer. Remains on Lovenox for DVT prophylaxis. His nasogastric tube has been removed. Abdominal x-ray revealed diffusely dilated small bowel loops measuring up to 4.5 cm suggesting postoperative ileus. He remains nothing by mouth except for ice chips per surgical services. Being nourished with TPN at 75 ML's per hour. Patient is seen today 08/11/2022 in follow-up on the regular medical floor. He is resting comfortably in bed. Awake and alert in no acute distress. Maintaining O2 saturations in the 90s on 3 L/m per nasal cannula. He is lactated Ringer's at 10 and I'll's per hour. He is receiving TPN at 75 ML's per hour. He remains on a full liquid diet. Tolerating it well. Ostomy functioning. Blood cultures revealed no growth. Abdominal wound cultures were positive for gram-negative bacilli. Sputum culture revealed no growth. Sodium 139. Potassium 3.7. Bicarb 32. BUN 25. Creatinine 1.02. Glucose 113. He is continued on DuoNeb inhalations, Pulmicort and Perforomist inhalations. The patient is seen today 08/12/2022 in follow-up on the regular medical floor. He is currently resting in bed. He is awake and alert in no acute distress. Maintaining O2 saturations in the 90s on 3 L/m per nasal cannula. Unfortunately he is quite nauseated and has been vomiting on and off since 6 PM last night. Uncomfortable. His abdomen is soft. Colostomy is functioning. Possible ileus. No worsening shortness of breath, cough or congestion. He is continued on DuoNeb inhalations, Pulmicort and Perforomist inhalations, IV Solu-Cortef. He is on antibiotics in the form of Zosyn. White count 10.0. Hemoglobin 11.1. Platelets 443. Sodium 140. Potassium 3.7. Bicarb 36. BUN 23. Creatinine 1.04. Glucose 112. The patient is seen today 08/13/2022 in follow-up on the regular medical floor. He is awake and alert in no acute distress. He is still having ongoing issues with nausea and vomiting. Denies any worsening of breath, cough or congestion. Maintaining good O2 saturations in the 90s liters per minute per nasal cannula. An computed tomography scan of the chest abdomen pelvis with contrast is pending per surgical services. Nasogastric tube to be reinserted. Sodium 138. Potassium 3.5. Bicarb 35. BUN 32. Creatinine 1.16. Glucose 195. He remains on DuoNeb inhalations, Pulmicort and Perforomist inhalations, Solu-Cortef. Being nourished with TPN at 60 ML's per hour. Lactated Ringer's at 20 MLS per hour. He remains on antibiotics in the form of Zosyn. Lovenox for DVT prophylaxis. The patient is seen today 08/14/2022 in follow-up on the regular medical floor. He is currently resting in bed. Awake and alert in no acute distress. He is having ongoing issues with abdominal distention and nausea. He's had 2 NG tubes replaced and was subsequent inadvertentaccidental removal. Computed tomography scan of the abdomen revealed high-grade distal small bowel obstruction with transition point identified presumed related to adhesions. Interval partial colectomy and colostomy changes noted. Plan is to replace the NG tube again and keep him nothing by mouth. He is maintaining good O2 saturations in the mid 90s on 3 L nasal cannula. Continued on bronchodilators. Continued on TPN. The patient is seen today 08/15/2022 in follow-up on the regular medical floor. He is awake and alert in no acute distress. Feeling better since the nasogastric tube was placed. No nausea or vomiting. Still with some abdominal tenderness. Ostomy has a small amount of stool in it. The left-sided PICC line in place. No evidence of left upper extremity DVT per Doppler. Chest x-ray revealed evidence of COPD but no acute pulmonary process. Nasogastric tube in appropriate place. Abdominal wound cultures revealed gram-negative bacilli. Strep agalactiae, group B. White count 6.1. Hemoglobin 7.7. Platelets 339. Sodium 141. Potassium 3.2. Bicarb 30. BUN 31. Creatinine 1.19. Glucose 118. He remains on TPN, lipids for nutritional support. Remains on antibiotics in the form of Zosyn. Continued on bronchodilators, site Cortef. Remains on IV diuretics. Currently in a -4.8 L balance. The patient is seen today 08/22/2022 in follow-up on the regular medical floor. He again had a nasogastric tube removed. Still was somewhat distended abdomen. Still with some abdominal discomfort. No output in the ostomy currently. Computed tomography scan of the abdomen and pelvis is pending. He is being nourished with TPN at 80 MLS per hour. Sodium 136. Potassium 4.7. Bicarb 25. BUN 36. Creatinine 1.07. Glucose 134. He is maintaining good O2 saturations in the mid to upper 90s on 3 L/m per nasal cannula. He is afebrile. He is continued on DuoNeb inhalations, Pulmicort and Perforomist inhalations, Solu- Cortef. Lovenox for DVT prophylaxis. The patient is seen today 08/23/2022 in follow-up on the regular medical floor. He is maintaining good O2 saturations in the 90s on 3 L/m per nasal cannula. He is doing better today. No worsening abdominal discomfort. Ostomy is functioning. Computed tomography scan of the abdomen yesterday ruled out ileus. No new ascites. Resolved small left pleural effusion. Improved soft tissue subcutaneous edema noted. Chest x-ray continues to show diffuse emphysematous changes with improving left basilar atelectasis/infiltrate. Left-sided PICC line appears in place. He did have a temperature of 102.7 earlier this morning. He's been initiated on vancomycin. White count 7.9. Hemoglobin 8.3. Platelets 248. Sodium 134. Potassium 4.6. A carb 25. BUN 26. Creatinine 0.95. Glucose 126. He remains on TPN and lipids for nutritional support. He is back and a full liquid diet. Lovenox for DVT prophylaxis. The patient is seen today 08/24/2022 in follow-up on the regular medical floor. He is awake and alert in no acute distress. Sitting up in bed. Maintaining good O2 saturations in the upper 90s on 3 L/m per nasal cannula. Afebrile. Hemodynamically stable. Denies any worsening abdominal discomfort. Ostomy is functioning. No nausea or vomiting. Tolerating a full liquid diet. White count 5.7. Hemoglobin 7.8. Platelets 248. Sodium 136. Potassium 4.1. Bicarb 20. BUN 22. Creatinine 0.97. He has been initiated on Eraxis and cefazolin per ID services today. The patient is seen today 08/25/2022 in follow-up on the regular medical floor. Sitting up in bed. Awake and alert in no acute distress. Denies any worsening shortness of breath, cough or congestion. Denies any worsening abdominal pain, nausea or vomiting. Follow-up blood cultures positive for oxacillin sensitive staph epi and Melissa. He is on Eraxis and cefazolin. PICC line was discontinued. White count 5.4. Hemoglobin 6.8. Platelets 308. Sodium 137. Potassium 4.3. Bicarb 28. BUN 22. Creatinine 0.92. Glucose 102. The patient is seen today 08/26/2022 in follow-up on the regular medical floor. Awake and alert in no acute distress. Denies any shortness of breath, cough or congestion. Denies any significant abdominal discomfort. Blood culture was positive for yeast and he remains on Eraxis. Continued on cefazolin. White count 5.5. Hemoglobin 7.9. Platelets 393. Sodium 140. Potassium 3.8. Bicarb 31.. 2. Creatinine 1.24. Glucose 108. Continued on bronchodilators, prednisone taper. Tolerating a diet. Plan is for ECF on 08/29/2021. The patient is seen today 08/27/2022 in follow-up on the regular medical floor. He continues stress comfortably in bed. Awake and alert in no acute distress. No abdominal discomfort no nausea or vomiting. Tolerating his diet. Maintaining good O2 saturations in the 90s on 3 L/m per nasal cannula. Follow- up blood cultures revealing no growth. He remains on Eraxis and cefazolin. Continued on bronchodilators. Continued on a prednisone taper. Lovenox for DVT prophylaxis. Objective - Vital Signs Vital signs: Vital Signs Temp 98.3 F 08/27/22 07:45 Pulse 92 08/27/22 12:48 Resp 18 08/27/22 12:48 BP 117/54 08/27/22 07:45 Pulse Ox 99 08/27/22 09:37 FiO2 35 08/03/22 12:00 Intake & Output 08/26/22 08/27/22 08/27/22 18:59 06:59 18:59 Output Total 800 850 50 Balance -800 -850 -50 Weight 73.4 kg Output: Urine 800 850 Stool 50 Other: Voiding Method Indwelling Catheter Indwelling Catheter # Bowel Movements 1 - Exam GENERAL EXAM: Alert, pleasant, antalgic, 72-year-old male, on 3 L nasal cannula, in no acute distress. HEAD: Normocephalic. EYES: Normal reaction of pupils, equal size. NOSE: Clear with pink turbinates. THROAT: No erythema or exudates. NECK: No masses, no JVD. CHEST: No chest wall deformity. LUNGS: Equal air entry with bilateral end expiratory wheeze, diminished. CVS: S1 and S2 normal with no audible murmur, regular rhythm. ABDOMEN: Postsurgical changes. Ostomy intact. Stool noted within ostomy. SPINE: No scoliosis or deformity SKIN: No rashes CENTRAL NERVOUS SYSTEM: No focal deficits, tone is normal in all 4 extremities. EXTREMITIES: There is no peripheral edema. No clubbing, no cyanosis. Peripheral pulses are intact. - Labs CBC & Chem 7: 08/26/22 07:37 08/26/22 07:37 Assessment and Plan Assessment: Acute perforated sigmoid diverticulitis with abscess, status post sigmoid colectomy and end colostomy on 08/02/2022. Nasogastric tube removed. Abdominal x-ray revealed diffusely dilated small bowel loops measuring up to 4.5 cm suggesting postoperative ileus. There is liquid stool and gas in the ostomy. On 08/12/2022 seconds issues with nausea and vomiting. Still with some nausea and vomiting 08/13/2022. Computed tomography scan confirmed a high-grade distal small bowel obstruction with transition point identified presumed related to adhesions. Interval partial colectomy and colostomy changes noted. Nasogastric tube was reinserted. A repeat CAT scan of the abdomen on 08/16/2022 showed persistent transition zone in the upper pelvis could be related to partial obstruction versus ileus. There was also dilated small loops of small bowel improved compared to the earlier CAT scan of the abdomen and pelvis that was done on 08/13/2022. The patient was again having abdominal discomfort and distention 08/22/2022 and computed tomography scan of the abdomen and pelvis revealed no evidence of ileus or obstruction. Resumed regular diet. Obstructive uropathy post Art catheter removal. The catheter was reinserted Febrile illness 08/23/2022, follow-up blood cultures pending, now on Eraxis and cefazolin Acute anemia 08/25/2022 with a hemoglobin of 6.8. No signs of active bleeding, current hemoglobin 7.9 History of diverticulosis Recent hospitalization for an acute COPD exacerbation back in June 2022, treated and the patient has recovered Advanced COPD with an FEV1 of 26% of predicted, the patient is chronically oxygen and steroid dependent taking prednisone 10 mg by mouth daily. Ex-smoker and the patient quit smoking 2 years ago Chronic hypoxic respiratory failure maintained on O2 at 2 L nasal cannula Prostate cancer Acid reflux Plan: The patient was seen and evaluated Medications reviewed On Eraxis and cefazolin Tolerating a regular diet Plan is for subacute rehab 08/29/2022 Titrate the FiO2 as tolerated Continue bronchodilators Lovenox for DVT prophylaxis We will continue to follow I have personally seen and examined the patient, performed the documentation and the assessment and plan as written. Number of minutes spent on the visit: 10.
[2022-08-27] MEDS: MIRTAZAPINE 15 MG TAB PO SCH (21:24)
[2022-08-27] MEDS: HYDROcodone/APAP 5-325MG 1 EACH TAB PO PRN (21:51)
[2022-08-27] MEDS: HYDROmorphone 1 MG/ML 1 ML SYRINGE IVP PRN (21:52)
[2022-08-28] MEDS: LACTATED RINGERS 1,000 ML IV SCH (05:47)
[2022-08-28] MEDS: HYDROcodone/APAP 5-325MG 1 EACH TAB PO PRN ×3 (05:48→20:34)
[2022-08-28] MEDS: HYDROmorphone 1 MG/ML 1 ML SYRINGE IVP PRN (05:48)
[2022-08-28] MEDS: FORMOTEROL FUMARATE 20 MCG/2 ML NEBU INHALATION SCH ×2 (08:54→21:20)
[2022-08-28] MEDS: IPRATROPIUM-ALBUTEROL 3 ML NEB INHALATION SCH ×4 (08:54→21:20)
[2022-08-28] MEDS: BUDESONIDE 1 MG/2 ML NEBU INHALATION SCH ×2 (08:54→21:20)
[2022-08-28] MEDS: TAMSULOSIN 0.4 MG CAP.ER.24H PO SCH ×2 (09:19→20:25)
[2022-08-28] MEDS: ANIDULAFUNGIN 100 MG in SODIUM CHLORIDE 0.9% 100 ML IVPB SCH (09:19)
[2022-08-28] MEDS: predniSONE 20 MG TAB PO SCH (09:19)
[2022-08-28] MEDS: ENOXAPARIN 40 MG/0.4 ML SYRINGE SQ SCH (09:19)
[2022-08-28] MEDS: guaiFENesin 600 MG TABLET.ER PO SCH ×2 (09:19→20:25)
[2022-08-28] MEDS: PANTOPRAZOLE 40 MG/10 ML VIAL IV SCH (10:21)
--- NOTE | 2022-08-28 11:02 | P.PN ---
Subjective Progress Note Date: 08/28/22 72-year-old male with a past medical history of COPD home oxygen dependent on 3 L at all times, diverticulosis and GERD. He presented to the emergency department with a chief complaint of abdominal pain. CBC showing severe leukocytosis with WBC count of 18.7 with left shift with neutrophils of 17.1. BMP revealing mild prerenal azotemia with BUN of 21. Glucose was 132 and lactic acid was 1.3. Liver profile unremarkable. Troponin less than 0.012. Urinalysis was negative for infection. COVID PCR was negative. EKG was completed showing normal sinus rhythm and 99 bpm with no noted T-wave or ST a bnormalities showing no signs of acute ischemia. Chest x-ray showing COPD changes but negative for acute cardiopulmonary process. CT AP positive for acute sigmoid diverticulitis complicated by perforation and pockets of free intraperitoneal air measuring up to 5.5 cm accompanied by trace lower abdominal ascites, secondary small bowel ileus, small to moderate sized hiatal hernia, mild circumferential distal esophageal wall thickening, and prostamegaly with prostate measurement of 5.2 cm. Patient was admitted under General surgery team and [facility] consulted for medical management throughout hospitalization. Patient underwent sigmoidectomy on 08/02. Patient was extubated on 08/03. NG tube was initially removed on 08/09. It was reinserted on 08/13. NG tube was a removed overnight between 08/13-08/14 was then replaced on 08/14, removed on 08/19. Patient was noted to spike fevers on 08/23. Blood cultures were collected and PICC line was removed and sent for culture. PICC line culture came back positive for Melissa. Initial blood culture done on 08/23 was positive for yeast and gram-positive cocci in clusters. Patient was started on anidulafungin and cefazolin. Repeat blood culture from 08/25 and 08/26 is negative so far. 08/28 Patient was seen and examined. Tolerating diet well. No N/V. He reports intermittent bouts of sharp abdominal pain. Repeat blood culture from 08/25 and 08/26 is negative so far. 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 Patient has history of acute perforated diverticulitis with abscess status post sigmoid colectomy with end colostomy on 08/02/2032 complicated with candidemia and postoperative ileus. Wound culture growing Strep agalactiae. Completed multiple days of Zosyn. Spiked fever on 08/23, PICC line culture came back positive for Melissa. Initial blood culture done on 08/23 was positive for yeast and gram-positive cocci in clusters. Patient is continued on anidulafungin and cefazolin. Repeat blood culture from 08/25 and 08/26 is negative so far. Antibiotics: Anidulafungin 100 mg IV QD (Day 4) and cefazolin 2g IV Q8H (Day 4) Continue Protonix 40 mg IV QD. Zofran 4 mg Q8H PRN for N/V. Pain control: Dilaudid PRN for severe pain. Bronchodilators: DuoNeb 0.5mg-3mg/3ml scheduled and as needed for SOB and wheezing. Performist 20 mcg INH BID. Steroids: Prednisone 20 mg PO QD. DVT ppx: Lovenox SQ Code status: FULL CODE Anticipated discharge place: Pending clinical course Anticipated discharge time: Pending clinical course I have reviewed the following [employer] consultant notes: ID note reviewed 08/28, continue Eraxis and Cefazolin and await cultures to finalize. I have reviewed the results of the following tests: Repeat blood culture from 08/25 and 08/26 is negative so far. I have discussed the management of this patient with the following physician: This patient has a moderate risk of morbidity due to the following reasons: Objective - Vital Signs Vital signs: Vital Signs Temp 97.9 F 08/28/22 07:07 Pulse 88 08/28/22 09:13 Resp 21 08/28/22 07:07 BP 125/67 08/28/22 07:07 Pulse Ox 99 08/28/22 08:57 FiO2 35 08/03/22 12:00 Intake & Output 08/27/22 08/28/22 08/28/22 18:59 06:59 18:59 Intake Total 180 Output Total 975 700 Balance -975 -700 180 Intake: Oral 180 Output: Urine 925 700 Uretheral (Art) 700 Stool 50 Other: Voiding Method Indwelling Catheter Indwelling Catheter # Voids 1 # Bowel Movements 1 - Labs CBC & Chem 7: 08/26/22 07:37 08/26/22 07:37 Labs: Microbiology - Last 24 Hours (Table) 08/25/22 06:55 Blood Culture - Preliminary Blood 08/26/22 07:37 Blood Culture - Preliminary Blood 08/23/22 13:02 Blood Culture Gram Stain - Final Blood 08/23/22 15:38 Catheter Tip Culture - Final Picc Line Melissa species, not albicans
--- NOTE | 2022-08-28 12:11 | P.PN ---
Subjective Progress Note Date: 08/28/22 I was asked to evaluate this patient because of his advanced COPD and ongoing abdominal complications. The patient was seen in the emergency department. The patient is known to have diverticulosis he came in for an acute abdominal pain this morning. CAT scan of the abdomen was done and the patient was found to have acute sigmoid diverticulitis. This was a comp acute diverticulitis as perforation suspected and the patient had pockets of free intraperitoneal air measuring up to 5.5 cm in size. There is also trace lower abdominal ascites. No evidence of any abscess formation. Is also small bowel ileus. There is moderate size hiatal hernia also. The patient has a large prostate. Is known to have prostate cancer. The patient is also known to have advanced COPD. The patient is auction dependent. The patient is steroid dependent and is taking 10 mg of prednisone on a daily basis on outpatient basis. He has been followed up through our office. He has exertional dyspnea which is chronic in his significant limitation in exercise capacity because of his advanced COPD. No chest pain. No worsening shortness of breath. No swelling lower extremities. No previous history of DVT or pulmonary embolism. No nausea or emesis. No aspiration. GI surgeries on the case. Currently is on antibiotics. No plans for any surgery at this point in time. Blood work shows a WBC count of 18, he moglobin 13, normal cognition profile, BUN is 20 over the creatinine of 0.9. LFTs are normal. Lactic acid level is at 1.3. On today's evaluation of 07/30/2022, the patient's abdomen is less tender. The patient remains nothing by mouth. No worsening shortness of breath. The patient is on IV Zosyn. The patient is going to be treated conservatively. White cell count is at 14 with a hemoglobin of 11.1 and a platelet count of 245 noted the white cycles lower compared to yesterday. BUN is at 21 with a creatinine of 1.3. Sodium is at 143. Awake and alert and communicating. He remains on oxygen at 2 L/m nasal cannula. On 07/31/2022, the patient is doing well. No specific complaints. Abdominal pain is subsiding gradually. His COPD remains on IV Zosyn. No plans for any surgical intervention this point in time. The patient is known to have advanced COPD and the patient also has oxygen steroid dependent COPD and the patient is currently on hydrocortisone. IV fluids are in the form of D5 half-normal saline at rate of 100 mL an hour. The white cell count is down to 8.2 with hemoglobin 11.5 and a platelet count of 15. BUN is at 60 with a creatinine of 1 and his sodium level is at 137. The patient is seen today 08/01/2022 in follow-up on the regular medical floor. He is currently sitting up in bed. Awake and alert in no acute distress. Maintaining O2 saturations in the 90s on 2 L/m per nasal cannula. Currently on D5.45 normal saline at 100 ML's per hour. He is continued on Zosyn. His abdominal discomfort is gradually improving. Follow-up chest x-ray continues to show diffuse severe emphysematous changes with coarsened interstitium suspicious for chronic interstitial lung disease. Blood culture reveals no growth. White count 8.1. Hemoglobin 10.5. Platelets 225. Sodium 142. Potassium 3.9. Bicarb 26. BUN 11. Creatinine 1.0. Glucose 165. ProBNP 1500. Troponin negative 1. AST 12. ALT 13. Alk phos 39. Continued on DuoNeb inhalations. Lovenox for DVT prophylaxis. Remains on Solu-Cortef. The patient is seen today 08/02/2022 in follow-up on the regular medical floor. He is awake and alert in no acute distress. Resting fairly comfortably in bed. Maintaining good O2 saturations in the 90s on 2 L/m per nasal cannula. He is receiving D5 and half-normal saline at 100 ML's per hour. Remains on antibiotics in the form of Zosyn. Lovenox for DVT prophylaxis. Continued on Solu-Cortef. His abdominal discomfort is waxing and waning. A little more tender today. He remains nothing by mouth. Blood cultures revealed no growth. Blood glucose 151. Reevaluated today on 08/03/22, patient underwent sigmoid colectomy and end colostomy yesterday by Dr. Moyer mostly because of his sigmoid diverticulitis with perforation and abscess, patient came back to the ICU on mechanical ventilation. Remains intubated and mechanically ventilated. Patient is known to have severe end-stage COPD FEV1 is no more than 26%, however the benefits of the surgery obviously outweighed the risks. And surgery had to be done yesterday because the patient continued to have significant abdominal pain and tenderness. Patient is now on assist control rate of 16, volume 400 FiO2 50% and PEEP of 5, ABG showed a pO2 of 251 pCO2 42 pH of 7.45. His chest x-ray is showing minimal atelectasis, no infiltrate, no evidence of congestive heart failure, his electrolytes are normal renal profile is normal, CBC is relatively unremarkable. Hence I cut down his FiO2 to 35%, patient remains on enteral are at 100 mL an hour he is also on propofol at 50 mcg/kg/m, I have recommended stopping propofol, and was the patient is awake we will recommend checking weani ng parameters, and if reasonable proceed with a pressure support and CPAP with a pressure support of 10, follow-up ABG in 1 hour after being on pressure support and CPAP, and we will likely consider extubation later today. Reevaluated today on 08/04/2022, patient remains in the ICU, he is status post sigmoid colectomy and end colostomy with severe underlying COPD. FEV1 is in the range of 26%, surprisingly the patient is doing better than expected. Patient remains on 4 L nasal cannula with adequate O2 saturation, his ostomy is functioning well, remains on Zosyn, his also on TPN at 50 mL per hour. WBC count is 9.1 hemoglobin is 10.9. Basic metabolic profile is normal renal profile is normal. Chest x-ray yesterday showed minimal interstitial findings and COPD Reevaluated today on 08/05/2022, patient remains in the ICU, doing well, relatively asymptomatic, his ostomy is functioning well, pulmonary status is relatively stable in spite of its severity patient denies any abdominal pain, no shortness of breath, his labs were relatively normal including normal CBC and normal electrolytes normal renal profile hence I will transfer the patient out of the ICU to a regular medical floor. Reevaluated today on 08/06/2022, patient had his nasogastric tube removed yesterday, however he developed abdominal distention and a nasogastric tube was placed back again today significant amount of fluid was noted are of the stomach over 900 mL. Patient felt better nonetheless he remains a bit bloated, now he has a nasogastric tube back in place. Considering his symptoms I'm recommending that we keep him in the ICU today. Pulmonary-[facility] he is doing well in spite of his severe underlying COPD. Labs today showed relatively normal CBC and a relatively normal electrolytes bicarb is 33 BUN is 24 creatinine 0.89. Patient was seen by surgery today/Dr. gurrola, and he is recommending to keep the nasogastric tube in place. Patient was reevaluated today on 08/07/2022, feels less bloated, nasogastric tube remains in place and functional, his colostomy is also functional, he had 450 of NG output overnight. He is afebrile, WBC count is 6.1. Pulmonary-[facility] he is about the same, he has severe COPD but surprisingly not as symptomatic as expected. WBC count 6.1 hemoglobin 10.9 lites are normal renal profile is normal bicarb is 37 The patient is seen today 08/08/2022 in follow-up on the regular medical floor. He has moved out of the ICU yesterday. He is awake and alert in no acute distre ss. Maintaining good O2 saturations in the mid 90s on 3 L/m per nasal cannula. Afebrile. Hemodynamically stable. Nasogastric tube remains in place. Abdominal wound cultures are positive for gram-negative bacilli. Sputum culture revealed no growth. Blood culture reveals no growth. Sodium 137. Potassium 4.0. Bicarb 36. BUN 25. Creatinine 0.95. Glucose 134. She is continued on DuoNeb inhalations, Pulmicort and Perforomist inhalations, Solu-Cortef. Lovenox for DVT prophylaxis. Remains on TPN for nutritional support at 75 ML's per hour. Antibiotics in the form of Zosyn. The patient is seen today 08/09/2022 in follow-up on the regular medical floor. He is currently resting quite comfortably in bed. Awake and alert in no acute distress. Currently on oxygen at 3 L/m per nasal cannula. Being nourished with TPN at 75 ML's per hour. He is receiving lactated Ringer's at 100 ML's per hour. He has some lower extremity edema. White sodium 137. Potassium 3.9. Bicarb 34. BUN 24. Creatinine 1.00. Glucose 136. Abdominal cultures were positive for anaerobic gram-negative bacilli. Sputum culture revealed no growth. He is continued on DuoNeb inhalations, Pulmicort and Perforomist inhalations. Working well with the incentive spirometer. The patient is seen today 08/10/2022 in follow-up on the regular medical floor. He is currently sitting up in bed. Awake and alert in no acute distress. Maintaining good O2 saturations in the 90s on 3 L/m per nasal cannula. Sodium 139. Potassium 3.8. Bicarb 32. BUN 25. Creatinine 1.08. Glucose 127. He is continued on DuoNeb inhalations, Pulmicort and Perforomist inhalations. Chest x-ray showing some atelectasis. Working well with the incentive spirometer. Remains on Lovenox for DVT prophylaxis. His nasogastric tube has been removed. Abdominal x-ray revealed diffusely dilated small bowel loops measuring up to 4.5 cm suggesting postoperative ileus. He remains nothing by mouth except for ice chips per surgical services. Being nourished with TPN at 75 ML's per hour. Patient is seen today 08/11/2022 in follow-up on the regular medical floor. He is resting comfortably in bed. Awake and alert in no acute distress. Maintaining O2 saturations in the 90s on 3 L/m per nasal cannula. He is lactated Ringer's at 10 and I'll's per hour. He is receiving TPN at 75 ML's per hour. He remains on a full liquid diet. Tolerating it well. Ostomy functioning. Blood cultures revealed no growth. Abdominal wound cultures were positive for gram-negative bacilli. Sputum culture revealed no growth. Sodium 139. Potassium 3.7. Bicarb 32. BUN 25. Creatinine 1.02. Glucose 113. He is continued on DuoNeb inhalations, Pulmicort and Perforomist inhalations. The patient is seen today 08/12/2022 in follow-up on the regular medical floor. He is currently resting in bed. He is awake and alert in no acute distress. Maintaining O2 saturations in the 90s on 3 L/m per nasal cannula. Unfortunately he is quite nauseated and has been vomiting on and off since 6 PM last night. Uncomfortable. His abdomen is soft. Colostomy is functioning. Possible ileus. No worsening shortness of breath, cough or congestion. He is continued on DuoNeb inhalations, Pulmicort and Perforomist inhalations, IV Solu-Cortef. He is on antibiotics in the form of Zosyn. White count 10.0. Hemoglobin 11.1. Platelets 443. Sodium 140. Potassium 3.7. Bicarb 36. BUN 23. Creatinine 1.04. Glucose 112. The patient is seen today 08/13/2022 in follow-up on the regular medical floor. He is awake and alert in no acute distress. He is still having ongoing issues with nausea and vomiting. Denies any worsening of breath, cough or congestion. Maintaining good O2 saturations in the 90s liters per minute per nasal cannula. An computed tomography scan of the chest abdomen pelvis with contrast is pending per surgical services. Nasogastric tube to be reinserted. Sodium 138. Potassium 3.5. Bicarb 35. BUN 32. Creatinine 1.16. Glucose 195. He remains on DuoNeb inhalations, Pulmicort and Perforomist inhalations, Solu-Cortef. Being nourished with TPN at 60 ML's per hour. Lactated Ringer's at 20 MLS per hour. He remains on antibiotics in the form of Zosyn. Lovenox for DVT prophylaxis. The patient is seen today 08/14/2022 in follow-up on the regular medical floor. He is currently resting in bed. Awake and alert in no acute distress. He is having ongoing issues with abdominal distention and nausea. He's had 2 NG tubes replaced and was subsequent inadvertentaccidental removal. Computed tomography scan of the abdomen revealed high-grade distal small bowel obstruction with transition point identified presumed related to adhesions. Interval partial colectomy and colostomy changes noted. Plan is to replace the NG tube again and keep him nothing by mouth. He is maintaining good O2 saturations in the mid 90s on 3 L nasal cannula. Continued on bronchodilators. Continued on TPN. The patient is seen today 08/15/2022 in follow-up on the regular medical floor. He is awake and alert in no acute distress. Feeling better since the nasogastric tube was placed. No nausea or vomiting. Still with some abdominal tenderness. Ostomy has a small amount of stool in it. The left-sided PICC line in place. No evidence of left upper extremity DVT per Doppler. Chest x-ray revealed evidence of COPD but no acute pulmonary process. Nasogastric tube in appropriate place. Abdominal wound cultures revealed gram-negative bacilli. Strep agalactiae, group B. White count 6.1. Hemoglobin 7.7. Platelets 339. Sodium 141. Potassium 3.2. Bicarb 30. BUN 31. Creatinine 1.19. Glucose 118. He remains on TPN, lipids for nutritional support. Remains on antibiotics in the form of Zosyn. Continued on bronchodilators, site Cortef. Remains on IV diuretics. Currently in a -4.8 L balance. The patient is seen today 08/22/2022 in follow-up on the regular medical floor. He again had a nasogastric tube removed. Still was somewhat distended abdomen. Still with some abdominal discomfort. No output in the ostomy currently. Computed tomography scan of the abdomen and pelvis is pending. He is being nourished with TPN at 80 MLS per hour. Sodium 136. Potassium 4.7. Bicarb 25. BUN 36. Creatinine 1.07. Glucose 134. He is maintaining good O2 saturations in the mid to upper 90s on 3 L/m per nasal cannula. He is afebrile. He is continued on DuoNeb inhalations, Pulmicort and Perforomist inhalations, Solu- Cortef. Lovenox for DVT prophylaxis. The patient is seen today 08/23/2022 in follow-up on the regular medical floor. He is maintaining good O2 saturations in the 90s on 3 L/m per nasal cannula. He is doing better today. No worsening abdominal discomfort. Ostomy is functioning. Computed tomography scan of the abdomen yesterday ruled out ileus. No new ascites. Resolved small left pleural effusion. Improved soft tissue subcutaneous edema noted. Chest x-ray continues to show diffuse emphysematous changes with improving left basilar atelectasis/infiltrate. Left-sided PICC line appears in place. He did have a temperature of 102.7 earlier this morning. He's been initiated on vancomycin. White count 7.9. Hemoglobin 8.3. Platelets 248. Sodium 134. Potassium 4.6. A carb 25. BUN 26. Creatinine 0.95. Glucose 126. He remains on TPN and lipids for nutritional support. He is back and a full liquid diet. Lovenox for DVT prophylaxis. The patient is seen today 08/24/2022 in follow-up on the regular medical floor. He is awake and alert in no acute distress. Sitting up in bed. Maintaining good O2 saturations in the upper 90s on 3 L/m per nasal cannula. Afebrile. Hemodynamically stable. Denies any worsening abdominal discomfort. Ostomy is functioning. No nausea or vomiting. Tolerating a full liquid diet. White count 5.7. Hemoglobin 7.8. Platelets 248. Sodium 136. Potassium 4.1. Bicarb 20. BUN 22. Creatinine 0.97. He has been initiated on Eraxis and cefazolin per ID services today. The patient is seen today 08/25/2022 in follow-up on the regular medical floor. Sitting up in bed. Awake and alert in no acute distress. Denies any worsening shortness of breath, cough or congestion. Denies any worsening abdominal pain, nausea or vomiting. Follow-up blood cultures positive for oxacillin sensitive staph epi and Melissa. He is on Eraxis and cefazolin. PICC line was discontinued. White count 5.4. Hemoglobin 6.8. Platelets 308. Sodium 137. Potassium 4.3. Bicarb 28. BUN 22. Creatinine 0.92. Glucose 102. The patient is seen today 08/26/2022 in follow-up on the regular medical floor. Awake and alert in no acute distress. Denies any shortness of breath, cough or congestion. Denies any significant abdominal discomfort. Blood culture was positive for yeast and he remains on Eraxis. Continued on cefazolin. White count 5.5. Hemoglobin 7.9. Platelets 393. Sodium 140. Potassium 3.8. Bicarb 31.. 2. Creatinine 1.24. Glucose 108. Continued on bronchodilators, prednisone taper. Tolerating a diet. Plan is for ECF on 08/29/2021. The patient is seen today 08/27/2022 in follow-up on the regular medical floor. He continues stress comfortably in bed. Awake and alert in no acute distress. No abdominal discomfort no nausea or vomiting. Tolerating his diet. Maintaining good O2 saturations in the 90s on 3 L/m per nasal cannula. Follow- up blood cultures revealing no growth. He remains on Eraxis and cefazolin. Continued on bronchodilators. Continued on a prednisone taper. Lovenox for DVT prophylaxis. The patient is seen today 08/28/2022 in follow-up on the regular medical floor. Awake and alert in no acute distress. Continues to maintain good O2 saturations in the upper 90s on 3 L/m per nasal cannula. He denies any worsening shortness of breath, cough or congestion. He denies any abdominal discomfort. Ostomy is functioning. Tolerating his diet. PICC line catheter tip revealed melissa, not albicans. Follow-up blood cultures revealing no growth. He remains on Eraxis and cefazolin. Continued on bronchodilators, prednisone taper. Lovenox for DVT prophylaxis. Objective - Vital Signs Vital signs: Vital Signs Temp 97.9 F 08/28/22 07:07 Pulse 90 08/28/22 12:02 Resp 21 08/28/22 07:07 BP 125/67 08/28/22 07:07 Pulse Ox 99 08/28/22 08:57 FiO2 35 08/03/22 12:00 Intake & Output 08/27/22 08/28/22 08/28/22 18:59 06:59 18:59 Intake Total 180 Output Total 975 700 Balance -975 -700 180 Intake: Oral 180 Output: Urine 925 700 Uretheral (Art) 700 Stool 50 Other: Voiding Method Indwelling Catheter Indwelling Catheter Indwelling Catheter # Voids 1 # Bowel Movements 1 - Exam GENERAL EXAM: Alert, 72-year-old male, on 3 L nasal cannula, in no acute distress. HEAD: Normocephalic. EYES: Normal reaction of pupils, equal size. NOSE: Clear with pink turbinates. THROAT: No erythema or exudates. NECK: No masses, no JVD. CHEST: No chest wall deformity. LUNGS: Equal air entry with bilateral end expiratory wheeze, diminished. CVS: S1 and S2 normal with no audible murmur, regular rhythm. ABDOMEN: Postsurgical changes. Ostomy intact. Stool noted within ostomy. SPINE: No scoliosis or deformity SKIN: No rashes CENTRAL NERVOUS SYSTEM: No focal deficits, tone is normal in all 4 extremities. EXTREMITIES: There is no peripheral edema. No clubbing, no cyanosis. Peripheral pulses are intact. - Labs CBC & Chem 7: 08/26/22 07:37 08/26/22 07:37 Labs: Microbiology - Last 24 Hours (Table) 08/25/22 06:55 Blood Culture - Preliminary Blood 08/26/22 07:37 Blood Culture - Preliminary Blood 08/23/22 13:02 Blood Culture Gram Stain - Final Blood 08/23/22 15:38 Catheter Tip Culture - Final Picc Line Melissa species, not albicans Assessment and Plan Assessment: Acute perforated sigmoid diverticulitis with abscess, status post sigmoid colectomy and end colostomy on 08/02/2022. Nasogastric tube removed. Abdominal x-ray revealed diffusely dilated small bowel loops measuring up to 4.5 cm suggesting postoperative ileus. There is liquid stool and gas in the ostomy. On 08/12/2022 seconds issues with nausea and vomiting. Still with some nausea and vomiting 08/13/2022. Computed tomography scan confirmed a high-grade distal small bowel obstruction with transition point identified presumed related to adhesions. Interval partial colectomy and colostomy changes noted. Nasogastric tube was reinserted. A repeat CAT scan of the abdomen on 08/16/2022 showed persistent transition zone in the upper pelvis could be related to partial obstruction versus ileus. There was also dilated small loops of small bowel improved compared to the earlier CAT scan of the abdomen and pelvis that was done on 08/13/2022. The patient was again having abdominal discomfort and distention 08/22/2022 and computed tomography scan of the abdomen and pelvis revealed no evidence of ileus or obstruction. Resumed regular diet on 08/25/2022. Obstructive uropathy post Art catheter removal. The catheter was reinserted and remains in place Febrile illness 08/23/2022, follow-up blood cultures pending, now on Eraxis and cefazolin Acute anemia 08/25/2022 with a hemoglobin of 6.8. No signs of active bleeding, current hemoglobin 7.9 History of diverticulosis Recent hospitalization for an acute COPD exacerbation back in June 2022, treated and the patient has recovered Advanced COPD with an FEV1 of 26% of predicted, the patient is chronically oxygen and steroid dependent taking prednisone 10 mg by mouth daily. Ex-smoker and the patient quit smoking 2 years ago Chronic hypoxic respiratory failure maintained on O2 at 2 L nasal cannula Prostate cancer Acid reflux Plan: The patient was seen and evaluated Stable and on 3 L nasal cannula Medications reviewed Tolerating a regular diet Plan is for subacute rehab 08/29/2022 I have personally seen and examined the patient, performed the documentation and the assessment and plan as written. Number of minutes spent on the visit: 10.
[2022-08-28] MEDS: MIRTAZAPINE 15 MG TAB PO SCH (20:25)
[2022-08-28 20:38] LABS: Glucose,Whole Blood 146 mg/dL (70-110)
[2022-08-29 06:19] LABS: Glucose,Whole Blood 107 mg/dL (70-110)
--- NOTE | 2022-08-29 07:35 | P.PN ---
Subjective Progress Note Date: 08/28/22 Principal diagnosis: Perforated diverticulitis and peritonitis Patient is a 72-year-old male presenting to the hospital abdominal pain has been diagnosed with acute diverticulitis with perforation treated medically did not have improvement subsequently was taken to the OR on 08/02/2022 and the patient is status post laparotomy; colectomy and diverting colostomy. On today's evaluation that is 08/28/2022, the patient continues to be afebrile, patient is breathing comfortably on 3L nasal cannula oxygen, patient denies nausea or vomiting and has been tolerating his diet , the patient abdominal pain is controlled, feeling better Objective - Vital Signs Vital signs: Vital Signs Temp 98.2 F 08/28/22 12:04 Pulse 87 08/28/22 12:04 Resp 18 08/28/22 12:04 BP 122/70 08/28/22 12:04 Pulse Ox 98 08/28/22 12:04 FiO2 35 08/28/22 12:04 Intake & Output 08/28/22 12:59 Intake Total 780 Output Total 680 Balance 100 Intake: Oral 780 Output: Urine 680 Stool Other: Voiding Method Indwelling Catheter - Exam GENERAL DESCRIPTION: An elderly male lying in bed in no distress RESPIRATORY SYSTEM: Unlabored breathing , decreased breath sounds at bases HEART: S1 S2 regular rate and rhythm , ABDOMEN: Soft , no tenderness EXTREMITIES: Did have extensive bruising to the upper extremity especially the left arm - Labs CBC & Chem 7: 08/26/22 07:37 08/26/22 07:37 Labs: Abnormal Lab Results - Last 24 Hours (Table) 08/28/22 Range/Units 20:37 POC Glucose (mg/dL) 146 H (70-110) mg/dL Microbiology - Last 24 Hours (Table) 08/25/22 06:55 Blood Culture - Preliminary Blood 08/26/22 07:37 Blood Culture - Preliminary Blood Assessment and Plan (1) Bacteremia Current Visit: Yes Status: Acute Code(s): R78.81 - BACTEREMIA SNOMED Code(s): 5961014 (2) Fungemia Current Visit: Yes Status: Acute Code(s): B49 - UNSPECIFIED MYCOSIS SNOMED Code(s): 432295655 Plan: 1patient was in the hospital with abdominal pain has been diagnosed with a complicated diverticulitis failing medical therapy and the patient subsequently status post laparotomy sigmoid colectomy and diverting colostomy with concern for secondary peritonitis from perforated sigmoid diverticulitis and need to cover for enteric gram-negative both aerobes and anaerobes,patient abdominal cultures grew group B strep and anaerobic gram-negative bacilli, for the patient has received adequate antibiotic therapy 2-the patient CT of abdominal pelvis did shows evidence of high-grade distal small bowel obstruction and is being monitor manage medically, with a repeat CAT scan completed on 08/22/2022 mention no Bowel obstruction or any abscess 3-patient with a new fever possible line related PICC line has been discontinued, cultures are currently growing oxacillin sensitive staph epi and Melissa, patient seemed to have shown clinical improvement and will continue with Eraxis and cefazolin repeat cultures done on 08/25/22 as well as 08/26/2022 are so far negative , will be able to get a midline and plan for 2 weeks of Eraxis from negative cultures on discharge Time with Patient: Less than 30
[2022-08-29] MEDS: HYDROcodone/APAP 5-325MG 1 EACH TAB PO PRN (07:40)
[2022-08-29] MEDS: ANIDULAFUNGIN 100 MG in SODIUM CHLORIDE 0.9% 100 ML IVPB SCH (09:32)
[2022-08-29] MEDS: ENOXAPARIN 40 MG/0.4 ML SYRINGE SQ SCH (09:32)
[2022-08-29] MEDS: predniSONE 20 MG TAB PO SCH (09:32)
[2022-08-29] MEDS: TAMSULOSIN 0.4 MG CAP.ER.24H PO SCH (09:32)
[2022-08-29] MEDS: guaiFENesin 600 MG TABLET.ER PO SCH (09:32)
[2022-08-29] MEDS: LACTATED RINGERS 1,000 ML IV SCH (09:33)
[2022-08-29] MEDS: PANTOPRAZOLE 40 MG/10 ML VIAL IV SCH (09:41)
[2022-08-29] MEDS: BUDESONIDE 1 MG/2 ML NEBU INHALATION SCH (09:49)
[2022-08-29] MEDS: FORMOTEROL FUMARATE 20 MCG/2 ML NEBU INHALATION SCH (09:49)
[2022-08-29] MEDS: IPRATROPIUM-ALBUTEROL 3 ML NEB INHALATION SCH ×3 (09:49→16:09)
[2022-08-29 11:08] LABS: Glucose,Whole Blood 128 mg/dL (70-110)
--- NOTE | 2022-08-29 13:43 | P.PN ---
Subjective Progress Note Date: 08/29/22 I was asked to evaluate this patient because of his advanced COPD and ongoing abdominal complications. The patient was seen in the emergency department. The patient is known to have diverticulosis he came in for an acute abdominal pain this morning. CAT scan of the abdomen was done and the patient was found to have acute sigmoid diverticulitis. This was a comp acute diverticulitis as perforation suspected and the patient had pockets of free intraperitoneal air measuring up to 5.5 cm in size. There is also trace lower abdominal ascites. No evidence of any abscess formation. Is also small bowel ileus. There is moderate size hiatal hernia also. The patient has a large prostate. Is known to have prostate cancer. The patient is also known to have advanced COPD. The patient is auction dependent. The patient is steroid dependent and is taking 10 mg of prednisone on a daily basis on outpatient basis. He has been followed up through our office. He has exertional dyspnea which is chronic in his significant limitation in exercise capacity because of his advanced COPD. No chest pain. No worsening shortness of breath. No swelling lower extremities. No previous history of DVT or pulmonary embolism. No nausea or emesis. No aspiration. GI surgeries on the case. Currently is on antibiotics. No plans for any surgery at this point in time. Blood work shows a WBC count of 18, he moglobin 13, normal cognition profile, BUN is 20 over the creatinine of 0.9. LFTs are normal. Lactic acid level is at 1.3. On today's evaluation of 07/30/2022, the patient's abdomen is less tender. The patient remains nothing by mouth. No worsening shortness of breath. The patient is on IV Zosyn. The patient is going to be treated conservatively. White cell count is at 14 with a hemoglobin of 11.1 and a platelet count of 245 noted the white cycles lower compared to yesterday. BUN is at 21 with a creatinine of 1.3. Sodium is at 143. Awake and alert and communicating. He remains on oxygen at 2 L/m nasal cannula. On 07/31/2022, the patient is doing well. No specific complaints. Abdominal pain is subsiding gradually. His COPD remains on IV Zosyn. No plans for any surgical intervention this point in time. The patient is known to have advanced COPD and the patient also has oxygen steroid dependent COPD and the patient is currently on hydrocortisone. IV fluids are in the form of D5 half-normal saline at rate of 100 mL an hour. The white cell count is down to 8.2 with hemoglobin 11.5 and a platelet count of 15. BUN is at 60 with a creatinine of 1 and his sodium level is at 137. The patient is seen today 08/01/2022 in follow-up on the regular medical floor. He is currently sitting up in bed. Awake and alert in no acute distress. Maintaining O2 saturations in the 90s on 2 L/m per nasal cannula. Currently on D5.45 normal saline at 100 ML's per hour. He is continued on Zosyn. His abdominal discomfort is gradually improving. Follow-up chest x-ray continues to show diffuse severe emphysematous changes with coarsened interstitium suspicious for chronic interstitial lung disease. Blood culture reveals no growth. White count 8.1. Hemoglobin 10.5. Platelets 225. Sodium 142. Potassium 3.9. Bicarb 26. BUN 11. Creatinine 1.0. Glucose 165. ProBNP 1500. Troponin negative 1. AST 12. ALT 13. Alk phos 39. Continued on DuoNeb inhalations. Lovenox for DVT prophylaxis. Remains on Solu-Cortef. The patient is seen today 08/02/2022 in follow-up on the regular medical floor. He is awake and alert in no acute distress. Resting fairly comfortably in bed. Maintaining good O2 saturations in the 90s on 2 L/m per nasal cannula. He is receiving D5 and half-normal saline at 100 ML's per hour. Remains on antibiotics in the form of Zosyn. Lovenox for DVT prophylaxis. Continued on Solu-Cortef. His abdominal discomfort is waxing and waning. A little more tender today. He remains nothing by mouth. Blood cultures revealed no growth. Blood glucose 151. Reevaluated today on 08/03/22, patient underwent sigmoid colectomy and end colostomy yesterday by Dr. Moyer mostly because of his sigmoid diverticulitis with perforation and abscess, patient came back to the ICU on mechanical ventilation. Remains intubated and mechanically ventilated. Patient is known to have severe end-stage COPD FEV1 is no more than 26%, however the benefits of the surgery obviously outweighed the risks. And surgery had to be done yesterday because the patient continued to have significant abdominal pain and tenderness. Patient is now on assist control rate of 16, volume 400 FiO2 50% and PEEP of 5, ABG showed a pO2 of 251 pCO2 42 pH of 7.45. His chest x-ray is showing minimal atelectasis, no infiltrate, no evidence of congestive heart failure, his electrolytes are normal renal profile is normal, CBC is relatively unremarkable. Hence I cut down his FiO2 to 35%, patient remains on enteral are at 100 mL an hour he is also on propofol at 50 mcg/kg/m, I have recommended stopping propofol, and was the patient is awake we will recommend checking weani ng parameters, and if reasonable proceed with a pressure support and CPAP with a pressure support of 10, follow-up ABG in 1 hour after being on pressure support and CPAP, and we will likely consider extubation later today. Reevaluated today on 08/04/2022, patient remains in the ICU, he is status post sigmoid colectomy and end colostomy with severe underlying COPD. FEV1 is in the range of 26%, surprisingly the patient is doing better than expected. Patient remains on 4 L nasal cannula with adequate O2 saturation, his ostomy is functioning well, remains on Zosyn, his also on TPN at 50 mL per hour. WBC count is 9.1 hemoglobin is 10.9. Basic metabolic profile is normal renal profile is normal. Chest x-ray yesterday showed minimal interstitial findings and COPD Reevaluated today on 08/05/2022, patient remains in the ICU, doing well, relatively asymptomatic, his ostomy is functioning well, pulmonary status is relatively stable in spite of its severity patient denies any abdominal pain, no shortness of breath, his labs were relatively normal including normal CBC and normal electrolytes normal renal profile hence I will transfer the patient out of the ICU to a regular medical floor. Reevaluated today on 08/06/2022, patient had his nasogastric tube removed yesterday, however he developed abdominal distention and a nasogastric tube was placed back again today significant amount of fluid was noted are of the stomach over 900 mL. Patient felt better nonetheless he remains a bit bloated, now he has a nasogastric tube back in place. Considering his symptoms I'm recommending that we keep him in the ICU today. Pulmonary-[facility] he is doing well in spite of his severe underlying COPD. Labs today showed relatively normal CBC and a relatively normal electrolytes bicarb is 33 BUN is 24 creatinine 0.89. Patient was seen by surgery today/Dr. gurrola, and he is recommending to keep the nasogastric tube in place. Patient was reevaluated today on 08/07/2022, feels less bloated, nasogastric tube remains in place and functional, his colostomy is also functional, he had 450 of NG output overnight. He is afebrile, WBC count is 6.1. Pulmonary-[facility] he is about the same, he has severe COPD but surprisingly not as symptomatic as expected. WBC count 6.1 hemoglobin 10.9 lites are normal renal profile is normal bicarb is 37 The patient is seen today 08/08/2022 in follow-up on the regular medical floor. He has moved out of the ICU yesterday. He is awake and alert in no acute distre ss. Maintaining good O2 saturations in the mid 90s on 3 L/m per nasal cannula. Afebrile. Hemodynamically stable. Nasogastric tube remains in place. Abdominal wound cultures are positive for gram-negative bacilli. Sputum culture revealed no growth. Blood culture reveals no growth. Sodium 137. Potassium 4.0. Bicarb 36. BUN 25. Creatinine 0.95. Glucose 134. She is continued on DuoNeb inhalations, Pulmicort and Perforomist inhalations, Solu-Cortef. Lovenox for DVT prophylaxis. Remains on TPN for nutritional support at 75 ML's per hour. Antibiotics in the form of Zosyn. The patient is seen today 08/09/2022 in follow-up on the regular medical floor. He is currently resting quite comfortably in bed. Awake and alert in no acute distress. Currently on oxygen at 3 L/m per nasal cannula. Being nourished with TPN at 75 ML's per hour. He is receiving lactated Ringer's at 100 ML's per hour. He has some lower extremity edema. White sodium 137. Potassium 3.9. Bicarb 34. BUN 24. Creatinine 1.00. Glucose 136. Abdominal cultures were positive for anaerobic gram-negative bacilli. Sputum culture revealed no growth. He is continued on DuoNeb inhalations, Pulmicort and Perforomist inhalations. Working well with the incentive spirometer. The patient is seen today 08/10/2022 in follow-up on the regular medical floor. He is currently sitting up in bed. Awake and alert in no acute distress. Maintaining good O2 saturations in the 90s on 3 L/m per nasal cannula. Sodium 139. Potassium 3.8. Bicarb 32. BUN 25. Creatinine 1.08. Glucose 127. He is continued on DuoNeb inhalations, Pulmicort and Perforomist inhalations. Chest x-ray showing some atelectasis. Working well with the incentive spirometer. Remains on Lovenox for DVT prophylaxis. His nasogastric tube has been removed. Abdominal x-ray revealed diffusely dilated small bowel loops measuring up to 4.5 cm suggesting postoperative ileus. He remains nothing by mouth except for ice chips per surgical services. Being nourished with TPN at 75 ML's per hour. Patient is seen today 08/11/2022 in follow-up on the regular medical floor. He is resting comfortably in bed. Awake and alert in no acute distress. Maintaining O2 saturations in the 90s on 3 L/m per nasal cannula. He is lactated Ringer's at 10 and I'll's per hour. He is receiving TPN at 75 ML's per hour. He remains on a full liquid diet. Tolerating it well. Ostomy functioning. Blood cultures revealed no growth. Abdominal wound cultures were positive for gram-negative bacilli. Sputum culture revealed no growth. Sodium 139. Potassium 3.7. Bicarb 32. BUN 25. Creatinine 1.02. Glucose 113. He is continued on DuoNeb inhalations, Pulmicort and Perforomist inhalations. The patient is seen today 08/12/2022 in follow-up on the regular medical floor. He is currently resting in bed. He is awake and alert in no acute distress. Maintaining O2 saturations in the 90s on 3 L/m per nasal cannula. Unfortunately he is quite nauseated and has been vomiting on and off since 6 PM last night. Uncomfortable. His abdomen is soft. Colostomy is functioning. Possible ileus. No worsening shortness of breath, cough or congestion. He is continued on DuoNeb inhalations, Pulmicort and Perforomist inhalations, IV Solu-Cortef. He is on antibiotics in the form of Zosyn. White count 10.0. Hemoglobin 11.1. Platelets 443. Sodium 140. Potassium 3.7. Bicarb 36. BUN 23. Creatinine 1.04. Glucose 112. The patient is seen today 08/13/2022 in follow-up on the regular medical floor. He is awake and alert in no acute distress. He is still having ongoing issues with nausea and vomiting. Denies any worsening of breath, cough or congestion. Maintaining good O2 saturations in the 90s liters per minute per nasal cannula. An computed tomography scan of the chest abdomen pelvis with contrast is pending per surgical services. Nasogastric tube to be reinserted. Sodium 138. Potassium 3.5. Bicarb 35. BUN 32. Creatinine 1.16. Glucose 195. He remains on DuoNeb inhalations, Pulmicort and Perforomist inhalations, Solu-Cortef. Being nourished with TPN at 60 ML's per hour. Lactated Ringer's at 20 MLS per hour. He remains on antibiotics in the form of Zosyn. Lovenox for DVT prophylaxis. The patient is seen today 08/14/2022 in follow-up on the regular medical floor. He is currently resting in bed. Awake and alert in no acute distress. He is having ongoing issues with abdominal distention and nausea. He's had 2 NG tubes replaced and was subsequent inadvertentaccidental removal. Computed tomography scan of the abdomen revealed high-grade distal small bowel obstruction with transition point identified presumed related to adhesions. Interval partial colectomy and colostomy changes noted. Plan is to replace the NG tube again and keep him nothing by mouth. He is maintaining good O2 saturations in the mid 90s on 3 L nasal cannula. Continued on bronchodilators. Continued on TPN. The patient is seen today 08/15/2022 in follow-up on the regular medical floor. He is awake and alert in no acute distress. Feeling better since the nasogastric tube was placed. No nausea or vomiting. Still with some abdominal tenderness. Ostomy has a small amount of stool in it. The left-sided PICC line in place. No evidence of left upper extremity DVT per Doppler. Chest x-ray revealed evidence of COPD but no acute pulmonary process. Nasogastric tube in appropriate place. Abdominal wound cultures revealed gram-negative bacilli. Strep agalactiae, group B. White count 6.1. Hemoglobin 7.7. Platelets 339. Sodium 141. Potassium 3.2. Bicarb 30. BUN 31. Creatinine 1.19. Glucose 118. He remains on TPN, lipids for nutritional support. Remains on antibiotics in the form of Zosyn. Continued on bronchodilators, site Cortef. Remains on IV diuretics. Currently in a -4.8 L balance. The patient is seen today 08/22/2022 in follow-up on the regular medical floor. He again had a nasogastric tube removed. Still was somewhat distended abdomen. Still with some abdominal discomfort. No output in the ostomy currently. Computed tomography scan of the abdomen and pelvis is pending. He is being nourished with TPN at 80 MLS per hour. Sodium 136. Potassium 4.7. Bicarb 25. BUN 36. Creatinine 1.07. Glucose 134. He is maintaining good O2 saturations in the mid to upper 90s on 3 L/m per nasal cannula. He is afebrile. He is continued on DuoNeb inhalations, Pulmicort and Perforomist inhalations, Solu- Cortef. Lovenox for DVT prophylaxis. The patient is seen today 08/23/2022 in follow-up on the regular medical floor. He is maintaining good O2 saturations in the 90s on 3 L/m per nasal cannula. He is doing better today. No worsening abdominal discomfort. Ostomy is functioning. Computed tomography scan of the abdomen yesterday ruled out ileus. No new ascites. Resolved small left pleural effusion. Improved soft tissue subcutaneous edema noted. Chest x-ray continues to show diffuse emphysematous changes with improving left basilar atelectasis/infiltrate. Left-sided PICC line appears in place. He did have a temperature of 102.7 earlier this morning. He's been initiated on vancomycin. White count 7.9. Hemoglobin 8.3. Platelets 248. Sodium 134. Potassium 4.6. A carb 25. BUN 26. Creatinine 0.95. Glucose 126. He remains on TPN and lipids for nutritional support. He is back and a full liquid diet. Lovenox for DVT prophylaxis. The patient is seen today 08/24/2022 in follow-up on the regular medical floor. He is awake and alert in no acute distress. Sitting up in bed. Maintaining good O2 saturations in the upper 90s on 3 L/m per nasal cannula. Afebrile. Hemodynamically stable. Denies any worsening abdominal discomfort. Ostomy is functioning. No nausea or vomiting. Tolerating a full liquid diet. White count 5.7. Hemoglobin 7.8. Platelets 248. Sodium 136. Potassium 4.1. Bicarb 20. BUN 22. Creatinine 0.97. He has been initiated on Eraxis and cefazolin per ID services today. The patient is seen today 08/25/2022 in follow-up on the regular medical floor. Sitting up in bed. Awake and alert in no acute distress. Denies any worsening shortness of breath, cough or congestion. Denies any worsening abdominal pain, nausea or vomiting. Follow-up blood cultures positive for oxacillin sensitive staph epi and Melissa. He is on Eraxis and cefazolin. PICC line was discontinued. White count 5.4. Hemoglobin 6.8. Platelets 308. Sodium 137. Potassium 4.3. Bicarb 28. BUN 22. Creatinine 0.92. Glucose 102. The patient is seen today 08/26/2022 in follow-up on the regular medical floor. Awake and alert in no acute distress. Denies any shortness of breath, cough or congestion. Denies any significant abdominal discomfort. Blood culture was positive for yeast and he remains on Eraxis. Continued on cefazolin. White count 5.5. Hemoglobin 7.9. Platelets 393. Sodium 140. Potassium 3.8. Bicarb 31.. 2. Creatinine 1.24. Glucose 108. Continued on bronchodilators, prednisone taper. Tolerating a diet. Plan is for ECF on 08/29/2021. The patient is seen today 08/27/2022 in follow-up on the regular medical floor. He continues stress comfortably in bed. Awake and alert in no acute distress. No abdominal discomfort no nausea or vomiting. Tolerating his diet. Maintaining good O2 saturations in the 90s on 3 L/m per nasal cannula. Follow- up blood cultures revealing no growth. He remains on Eraxis and cefazolin. Continued on bronchodilators. Continued on a prednisone taper. Lovenox for DVT prophylaxis. The patient is seen today 08/28/2022 in follow-up on the regular medical floor. Awake and alert in no acute distress. Continues to maintain good O2 saturations in the upper 90s on 3 L/m per nasal cannula. He denies any worsening shortness of breath, cough or congestion. He denies any abdominal discomfort. Ostomy is functioning. Tolerating his diet. PICC line catheter tip revealed melissa, not albicans. Follow-up blood cultures revealing no growth. He remains on Eraxis and cefazolin. Continued on bronchodilators, prednisone taper. Lovenox for DVT prophylaxis. The patient is seen today 08/29/2022 in follow-up on the regular medical floor. He is resting comfortably in bed. Awake and alert in no acute distress. Maintaining O2 saturations up to 99% on 4 L nasal cannula. Follow-up blood cultures pending. PICC line catheter tip culture was positive for Melissa species, not albicans. He remains on Eraxis. Continued on cefazolin. Blood sugar 128. Continued on bronchodilators, prednisone. Lovenox for DVT prophylaxis. Objective - Vital Signs Vital signs: Vital Signs Temp 97.7 F 08/29/22 07:09 Pulse 80 08/29/22 13:02 Resp 21 08/29/22 07:09 BP 121/72 08/29/22 07:09 Pulse Ox 99 08/29/22 09:49 FiO2 35 08/03/22 12:00 Intake & Output 08/28/22 08/29/22 08/29/22 18:59 06:59 18:59 Intake Total 780 Output Total 680 1100 Balance 100 -1100 Intake: Oral 780 Output: Urine 680 950 Stool 150 Other: Voiding Method Indwelling Catheter Indwelling Catheter - Exam GENERAL EXAM: Alert, 72-year-old male, resting comfortably in bed, on 4 L nasal cannula, in no acute distress. HEAD: Normocephalic. EYES: Normal reaction of pupils, equal size. NOSE: Clear with pink turbinates. THROAT: No erythema or exudates. NECK: No masses, no JVD. CHEST: No chest wall deformity. LUNGS: Equal air entry with bilateral end expiratory wheeze, diminished. CVS: S1 and S2 normal with no audible murmur, regular rhythm. ABDOMEN: Postsurgical changes. Ostomy intact. Stool noted within ostomy. SPINE: No scoliosis or deformity SKIN: No rashes CENTRAL NERVOUS SYSTEM: No focal deficits, tone is normal in all 4 extremities. EXTREMITIES: There is no peripheral edema. No clubbing, no cyanosis. Peripheral pulses are intact. - Labs CBC & Chem 7: 08/26/22 07:37 08/26/22 07:37 Labs: Abnormal Lab Results - Last 24 Hours (Table) 08/28/22 08/29/22 Range/Units 20:37 11:07 POC Glucose (mg/dL) 146 H 128 H (70-110) mg/dL Microbiology - Last 24 Hours (Table) 08/25/22 06:55 Blood Culture - Preliminary Blood 08/26/22 07:37 Blood Culture - Preliminary Blood Assessment and Plan Assessment: Acute perforated sigmoid diverticulitis with abscess, status post sigmoid colectomy and end colostomy on 08/02/2022. Nasogastric tube removed. Abdominal x-ray revealed diffusely dilated small bowel loops measuring up to 4.5 cm suggesting postoperative ileus. There is liquid stool and gas in the ostomy. On 08/12/2022 seconds issues with nausea and vomiting. Still with some nausea and vomiting 08/13/2022. Computed tomography scan confirmed a high-grade distal small bowel obstruction with transition point identified presumed related to adhesions. Interval partial colectomy and colostomy changes noted. Nasogastric tube was reinserted. A repeat CAT scan of the abdomen on 08/16/2022 showed persistent transition zone in the upper pelvis could be related to partial obstruction versus ileus. There was also dilated small loops of small bowel improved compared to the earlier CAT scan of the abdomen and pelvis that was done on 08/13/2022. The patient was again having abdominal discomfort and distention 08/22/2022 and computed tomography scan of the abdomen and pelvis revealed no evidence of ileus or obstruction. Resumed regular diet on 023. Obstructive uropathy post Art catheter removal. The catheter was reinserted and remains in place Febrile illness 08/23/2022, follow-up blood cultures pending, now on Eraxis and cefazolin Acute anemia 08/25/2022 with a hemoglobin of 6.8. No signs of active bleeding, current hemoglobin 7.9 History of diverticulosis Recent hospitalization for an acute COPD exacerbation back in June 2022, treated and the patient has recovered Advanced COPD with an FEV1 of 26% of predicted, the patient is chronically oxygen and steroid dependent taking prednisone 10 mg by mouth daily. Ex-smoker and the patient quit smoking 2 years ago Chronic hypoxic respiratory failure maintained on O2 at 2 L nasal cannula Prostate cancer Acid reflux Plan: The patient was seen and evaluated Medications reviewed Stable and on 4 L nasal cannula Tolerating a regular diet Plan is for subacute rehab at discharge I have personally seen and examined the patient, performed the documentation and the assessment and plan as written. Number of minutes spent on the visit: 10.
--- NOTE | 2022-08-29 13:52 | P.DS ---
Providers Date of admission: 07/29/22 09:35 Expected date of discharge: 08/29/22 Attending physician: Reynold Moyer Consults: 07/29/22 09:35 Consult Physician Urgent Consulting Provider: Robb Ramon Consult Reason/Comments: medical Do you want consulting provider notified?: Yes 08/02/22 21:47 Consult Physician Routine Consulting Provider: Arina Pérez Consult Reason/Comments: ICU management Do you want consulting provider notified?: Yes Consult Physician Routine Consulting Provider: Arya Lebron Consult Reason/Comments: Diverticulitis Do you want consulting provider notified?: Yes 08/23/22 09:33 Consult Physician Routine Consulting Provider: CODY ROSS Urology Consult Reason/Comments: Retention Do you want consulting provider notified?: Yes Primary care physician: [facility] Course: This a 72-year-old male who was admitted to the hospital with perforated diverticulitis. Patient's significant past medical history for severe COPD and other multiple medical problems. Patient was initially managed conservatively. However his condition worsen. A shunt underwent Judy procedure with sigmoid resection and end colostomy. Patient initially did well postop. However he did develop an ileus. This was treated with conservative nasogastric patient then subsequently developed actually anemia requiring IV antibiotics. The patient clinically has been doing overall well. He is being discharged to [facility]. Patient Condition at Discharge: Serious Plan - Discharge Summary Discharge Rx Participant: Yes New Discharge Prescriptions: No Action Multivitamins, Thera [Multivitamin (formulary)] 1 tab PO DAILY Ipratropium-Albuterol Nebulize [Duoneb 0.5 mg-3 mg/3 ml Soln] 3 ml INHALATION RT-QID PRN PRN Reason: Shortness Of Breath guaiFENesin [Mucinex] 600 mg PO Q12HR tab predniSONE 5 mg PO DIRECTED Fluticasone Propion/Salmeterol [Wixela 250-50 Inhub] 1 puff INHALATION RT-BID Ipratropium-Albuterol Nebulize [Duoneb 0.5 mg-3 mg/3 ml Soln] 3 ml INHALATION RT-QID 2 Days each Pantoprazole Sodium [Protonix] 40 mg PO DAILY #30 tab predniSONE See Taper PO DAILY Discharge Medication List Multivitamins, Thera [Multivitamin (formulary)] 1 tab PO DAILY 01/22/20 [History] Ipratropium-Albuterol Nebulize [Duoneb 0.5 mg-3 mg/3 ml Soln] 3 ml INHALATION RT-QID PRN 07/30/21 [History] Fluticasone Propion/Salmeterol [Wixela 250-50 Inhub] 1 puff INHALATION RT-BID 07/16/22 [History] predniSONE 5 mg PO DIRECTED 07/16/22 [History] Ipratropium-Albuterol Nebulize [Duoneb 0.5 mg-3 mg/3 ml Soln] 3 ml INHALATION RT-QID 2 Days each 07/18/22 [Rx] Pantoprazole Sodium [Protonix] 40 mg PO DAILY #30 tab 07/18/22 [Rx] guaiFENesin [Mucinex] 600 mg PO Q12HR tab 07/18/22 [Rx] predniSONE See Taper PO DAILY 07/29/22 [History] Follow up Appointment(s)/Referral(s): Arina Pérez MD [STAFF PHYSICIAN] - 09/08/22 2:30 pm Maico Anders MD [Primary Care Provider] - 1-2 days Bernardo Yanes, [NON-STAFF] - As Needed [facility], [NON-STAFF] - As Needed Reynold Moyer MD [STAFF PHYSICIAN] - 1 Week
--- NOTE | 2022-08-29 13:58 | P.PN ---
Subjective Progress Note Date: 08/29/22 72-year-old male with a past medical history of COPD home oxygen dependent on 3 L at all times, diverticulosis and GERD. He presented to the emergency department with a chief complaint of abdominal pain. CBC showing severe leukocytosis with WBC count of 18.7 with left shift with neutrophils of 17.1. BMP revealing mild prerenal azotemia with BUN of 21. Glucose was 132 and lactic acid was 1.3. Liver profile unremarkable. Troponin less than 0.012. Urinalysis was negative for infection. COVID PCR was negative. EKG was completed showing normal sinus rhythm and 99 bpm with no noted T-wave or ST a bnormalities showing no signs of acute ischemia. Chest x-ray showing COPD changes but negative for acute cardiopulmonary process. CT AP positive for acute sigmoid diverticulitis complicated by perforation and pockets of free intraperitoneal air measuring up to 5.5 cm accompanied by trace lower abdominal ascites, secondary small bowel ileus, small to moderate sized hiatal hernia, mild circumferential distal esophageal wall thickening, and prostamegaly with prostate measurement of 5.2 cm. Patient was admitted under General surgery team and [facility] consulted for medical management throughout hospitalization. Patient underwent sigmoidectomy on 08/02. Patient was extubated on 08/03. NG tube was initially removed on 08/09. It was reinserted on 08/13. NG tube was a removed overnight between 08/13-08/14 was then replaced on 08/14, removed on 08/19. Patient was noted to spike fevers on 08/23. Blood cultures were collected and PICC line was removed and sent for culture. PICC line culture came back positive for Melissa. Initial blood culture done on 08/23 was positive for yeast and gram-positive cocci in clusters. Patient was started on anidulafungin and cefazolin. Repeat blood culture from 08/25 and 08/26 is negative so far. 08/28 Patient was seen and examined. Tolerating diet well. No N/V. He reports intermittent bouts of sharp abdominal pain. Repeat blood culture from 08/25 and 08/26 is negative so far. 08/29 Patient was seen and examined. Case was discussed with Dr. Lebron, plans for midline and 2 weeks of IV Eraxis on discharge. Accepted to [facility]. Plans for discharge today. General: non toxic, no distress, appears at stated age Derm: warm, dry Head: atraumatic, normocephalic, symmetric Eyes: EOMI, no lid lag, anicteric sclera Cardiovascular: S1S2 reg, no murmur Lungs: Coarse BS bilateral, no rhonchi, no rales , no accessory muscle use Abdominal: distended, no guarding, no appreciable organomegaly, ostomy intact, + BS Ext: no gross muscle atrophy, 2+ LE edema, no contractures Neuro: no focal neuro deficits Psych: Alert, oriented, appropriate affect Candidemia with sepsis Post operative ileus Acute perforated diverticulitis with abscess and resolving sepsis Sigmoid colectomy with end colostomy on 08/02/2032 Anemia of chronic disease Metabolic alkalosis COPD on chronic prednisone, not in exacerbation Chronic hypoxemic respiratory failure on 2 L home O2 Based on my assessment of this patient, this patient meets a moderate complexity level of care. Patient has history of acute perforated diverticulitis with abscess status post sigmoid colectomy with end colostomy on 08/02/2032 complicated with candidemia and postoperative ileus. Wound culture growing Strep agalactiae. Completed multiple days of Zosyn. Spiked fever on 08/23, PICC line culture came back pos itive for Melissa. Initial blood culture done on 08/23 was positive for yeast and gram-positive cocci in clusters. Patient is continued on anidulafungin and cefazolin. Repeat blood culture from 08/25 and 08/26 is negative so far. Antibiotics: Anidulafungin 100 mg IV QD (Day 5) and cefazolin 2g IV Q8H (Day 5) Continue Protonix 40 mg IV QD. Zofran 4 mg Q8H PRN for N/V. Pain control: Dilaudid PRN for severe pain. Bronchodilators: DuoNeb 0.5mg-3mg/3ml scheduled and as needed for SOB and wheezing. Performist 20 mcg INH BID. Steroids: Prednisone 20 mg PO QD. DVT ppx: Lovenox SQ Code status: FULL CODE Anticipated discharge place: Pending clinical course Anticipated discharge time: Pending clinical course I have reviewed the following universal branch consultant notes: Plumonology note reviewed 08/28, stable from a Pulmonary standpoint. I have reviewed the results of the following tests: Repeat blood culture from 08/25 and 08/26 is negative so far. Objective - Vital Signs Vital signs: Vital Signs Temp 97.7 F 08/29/22 07:09 Pulse 80 08/29/22 13:02 Resp 21 08/29/22 07:09 BP 121/72 08/29/22 07:09 Pulse Ox 99 08/29/22 09:49 FiO2 35 08/03/22 12:00 Intake & Output 08/28/22 08/29/22 08/29/22 18:59 06:59 18:59 Intake Total 780 Output Total 680 1100 Balance 100 -1100 Intake: Oral 780 Output: Urine 680 950 Stool 150 Other: Voiding Method Indwelling Catheter Indwelling Catheter - Labs CBC & Chem 7: 08/26/22 07:37 08/26/22 07:37 Labs: Abnormal Lab Results - Last 24 Hours (Table) 08/28/22 08/29/22 Range/Units 20:37 11:07 POC Glucose (mg/dL) 146 H 128 H (70-110) mg/dL Microbiology - Last 24 Hours (Table) 08/25/22 06:55 Blood Culture - Preliminary Blood 08/26/22 07:37 Blood Culture - Preliminary Blood
[2022-08-29 14:23] VITALS: BP 115/67; RESP 22; TEMP 98.3
[2022-08-29 16:20] VITALS: PULSE 80
--- NOTE | 2022-09-04 15:43 | P.PN ---
Subjective Progress Note Date: 08/29/22 Principal diagnosis: Perforated diverticulitis and peritonitis Patient is a 72-year-old male presenting to the hospital abdominal pain has been diagnosed with acute diverticulitis with perforation treated medically did not have improvement subsequently was taken to the OR on 08/02/2022 and the patient is status post laparotomy; colectomy and diverting colostomy. On today's evaluation that is 08/29/2022, the patient denies any fever or any chills , patient is breathing comfortably on 3L nasal cannula oxygen, patient denies nausea or vomiting and has been tolerating his diet , the patient abdominal pain is controlled, patient with no new symptoms Objective - Vital Signs Vital signs: Vital Signs Temp 97.7 F 08/29/22 07:09 Pulse 80 08/29/22 10:19 Resp 21 08/29/22 07:09 BP 121/72 08/29/22 07:09 Pulse Ox 99 08/29/22 09:49 FiO2 35 08/03/22 12:00 Intake & Output 08/28/22 08/29/22 08/29/22 18:59 06:59 18:59 Intake Total 780 Output Total 680 1100 Balance 100 -1100 Intake: Oral 780 Output: Urine 680 950 Stool 150 Other: Voiding Method Indwelling Catheter Indwelling Catheter - Exam GENERAL DESCRIPTION: An elderly male lying in bed in no distress RESPIRATORY SYSTEM: Unlabored breathing , decreased breath sounds at bases HEART: S1 S2 regular rate and rhythm , ABDOMEN: Soft , no tenderness EXTREMITIES: Did have extensive bruising to the upper extremity especially the left arm - Labs CBC & Chem 7: 08/26/22 07:37 08/26/22 07:37 Labs: Abnormal Lab Results - Last 24 Hours (Table) 08/28/22 Range/Units 20:37 POC Glucose (mg/dL) 146 H (70-110) mg/dL Microbiology - Last 24 Hours (Table) 08/25/22 06:55 Blood Culture - Preliminary Blood 08/26/22 07:37 Blood Culture - Preliminary Blood Assessment and Plan (1) Bacteremia Status: Acute Code(s): R78.81 - BACTEREMIA SNOMED Code(s): 8783823 (2) Fungemia Status: Acute Code(s): B49 - UNSPECIFIED MYCOSIS SNOMED Code(s): 291039492 Plan: 1patient was in the hospital with abdominal pain has been diagnosed with a complicated diverticulitis failing medical therapy and the patient subsequently status post laparotomy sigmoid colectomy and diverting colostomy with concern for secondary peritonitis from perforated sigmoid diverticulitis and need to cover for enteric gram-negative both aerobes and anaerobes,patient abdominal cultures grew group B strep and anaerobic gram-negative bacilli, for the patient has received adequate antibiotic therapy 2-the patient CT of abdominal pelvis did shows evidence of high-grade distal small bowel obstruction and is being monitor manage medically, with a repeat CAT scan completed on 08/22/2022 mention no Bowel obstruction or any abscess 3-patient with a new fever possible line related PICC line has been discontinued, cultures are currently growing oxacillin sensitive staph epi and Melissa, patient seemed to have shown clinical improvement and will continue with Eraxis and cefazolin repeat cultures done on 08/25/22 as well as 08/26/2022 are so far negative 4- patient has got midline and plan for 2 weeks of Eraxis from negative cultures on discharge and close outpatient follow-up discussed with the primary team Time with Patient: Less than 30
--- NOTE | 2022-09-28 17:24 | CDI ---
Documentation Clarification Form Date: 09/28/2022 03:42:29 PM From: Anusha Rhodes RN, CCDS Admit Date: 07/29/2022 09:35:00 AM Patient Name: Martell Steven Visit Number: [id number] Discharge Date: 08/29/2022 05:13:00 PM ATTENTION: The Clinical Documentation Specialists (CDI) and [facility] Coding Staff appreciate your assistance in clarifying documentation. Please respond to the clarification below the line at the bottom and electronically sign. The CDI & [facility] Coding staff will review the response and follow-up if needed. Please note: Queries are made part of the Legal Health Record. If you have any questions, please contact the author of this message via ITS. Dr. Koenig Bernardino There is documentation of fever possible related PICC line, and it has been discontinued. Additional clarification is requested. History/Risk Factors: Sigmoid diverticulitis with perforation Clinical Indicators: 72-year-old male present to hospital on 07/29/2022 diagnosed with a complicated diverticulitis failing medical therapy. On admission did have an elevated white count of 18.7 with a left shift. PICC Line inserted 08/03/2022 08/02/2022 CT abdomen suggestive diverticular perforation and was taken to OR, for laparotomy sigmoid colectomy and diverting colostomy with concern for secondary peritonitis from perforated sigmoid diverticulitis. 08/23 Blood culture: Final: Gram positive cocci in clusters. Melissa Parapsilosis 08/23 PICC Line Catheter Tip Culture - Final: Melissa species 08/02 Abdomen Gram Stain Final: Strep agalactiae-(group b) 08/02 VS: (14:00) 128/73 76 18 98.4 08/23 VS (07:16)115/63 124 18 100.7 98.3 3/L NC. (08:39) Temp 102.7 WBC 7.9 HGB 8.3 08/25 Blood culture Final: No Growth 08/26 Blood culture Final: No Growth 08/29 Blood culture Final: No Growth Treatment: Vancomycin 1,250 MG IVPB Q 16 HRS 08/23-08/24 Eraxis 100 MG IVPB 08/24-08/29 Cefazolin 2 GM IVPB Q 8 HRS 08/24-08/29 Monitor blood cultures per orders Can you please further clarify source of fever, bacteremia/Fungemia? [ ] Bacteremia/Fungemia secondary to peritonitis from perforated sigmoid diverticulitis [ x ] Bacteremia/Fungemia secondary to PICC Line [ ] Other, please specify [ ] Unable to determine (Template Last Revised: May 2020) [facility]
== END 2022-08-29 17:13 | DRG 853 ==
LOC: EC 06:59 → 4SSUR 09:35 → 2SICU 08-02 22:07 → 4SSUR 08-07 11:49
PROVIDERS: ADMIT Surgery; ATTEND Surgery
PROC: 0D1M0Z4 Bypass Descending Colon to Cutaneous, Open Approach (ICD-10-PCS; 2022-08-02)
PROC: 0DTN0ZZ Resection of Sigmoid Colon, Open Approach (ICD-10-PCS; principal; 2022-08-02 20:00)
PROC: 02HV33Z Insertion of Infusion Device into Superior Vena Cava, Percutaneous Approach (ICD-10-PCS; 2022-08-03)
PROC: 3E0436Z Introduction of Nutritional Substance into Central Vein, Percutaneous Approach (ICD-10-PCS; 2022-08-04)
PROC: 0D9670Z Drainage of Stomach with Drainage Device, Via Natural or Artificial Opening (ICD-10-PCS; 2022-08-13)
PROC: 05HB33Z Insertion of Infusion Device into Right Basilic Vein, Percutaneous Approach (ICD-10-PCS; 2022-08-29)
DX: A40.1 Sepsis due to streptococcus, group B (principal); K65.9 Peritonitis, unspecified; T80.211A Bloodstream infection due to central venous catheter, initial encounter; B37.89 Other sites of candidiasis; K56.50 Intestinal adhesions [bands], unspecified as to partial versus complete obstruction; R18.8 Other ascites; J96.11 Chronic respiratory failure with hypoxia; E87.3 Alkalosis; K57.20 Diverticulitis of large intestine with perforation and abscess without bleeding; K56.7 Ileus, unspecified; D62 Acute posthemorrhagic anemia; J84.9 Interstitial pulmonary disease, unspecified; N13.8 Other obstructive and reflux uropathy; B37.7 Candidal sepsis; D63.8 Anemia in other chronic diseases classified elsewhere; C61 Malignant neoplasm of prostate; R54 Age-related physical debility; Z99.81 Dependence on supplemental oxygen; J44.9 Chronic obstructive pulmonary disease, unspecified; N40.1 Benign prostatic hyperplasia with lower urinary tract symptoms; R33.8 Other retention of urine; K21.9 Gastro-esophageal reflux disease without esophagitis; K44.9 Diaphragmatic hernia without obstruction or gangrene; K22.89 Other specified disease of esophagus; K64.4 Residual hemorrhoidal skin tags; R60.0 Localized edema; Z20.822 Contact with and (suspected) exposure to COVID-19; Y71.1 Therapeutic (nonsurgical) and rehabilitative cardiovascular devices associated with adverse incidents; B95.8 Unspecified staphylococcus as the cause of diseases classified elsewhere; B95.4 Other streptococcus as the cause of diseases classified elsewhere; B96.89 Other specified bacterial agents as the cause of diseases classified elsewhere; Z87.891 Personal history of nicotine dependence; Z28.310 Unvaccinated for COVID-19; Z79.899 Other long term (current) drug therapy; Z79.52 Long term (current) use of systemic steroids; Z80.9 Family history of malignant neoplasm, unspecified
CPT/HCPCS: 36410; 36415; 36573; 36600; 71045; 71046; 71260; 74018; 74176; 74177; 76937; 80048; 80053; 81003; 82150; 82330; 82607; 82728; 82747; 82803; 82805; 83540; 83550; 83605; 83690; 83735; 83880; 84100; 84466; 84478; 84484; 85025; 85027; 85610; 85730; 86850; 86900; 86901; 87040; 87070; 87075; 87205; 87635; 88307; 93005; 94002; 94003; 94640; 94667; 94760; 96365; 96366; 96372; 96375; 99291

== ENCOUNTER 2022-09-06 18:57 | Inpatient (IN) | payer MEDICARE, OTHER ==
--- NOTE | 2022-09-06 19:22 | ED ---
General Adult HPI - General Chief complaint: Fever Stated complaint: fever Time Seen by Provider: 09/06/22 19:06 Source: EMS, RN notes reviewed Mode of arrival: EMS Limitations: no limitations - History of Present Illness Initial comments: 72-year-old male with past medical history significant for COPD and GERD presents the via EMS to emergency department with a chief complaint of fever. Patient reports fever, chills, abdominal pain. Patient reports he had a placed at this facility approximately 1 month ago. He has been residing at [facility] for rehab. Denies any recent sick contacts. Denies any chest pain, shortness of breath, palpitations, melena, hematochezia. - Related Data Home Medications Medication Instructions Recorded Confirmed Multivitamins, Thera [Multivitamin 1 tab PO DAILY@1200 01/22/20 09/06/22 (formulary)] Ipratropium-Albuterol Nebulize 3 ml INHALATION RT-QID PRN 07/30/21 09/06/22 [Duoneb 0.5 mg-3 mg/3 ml Soln] Fluticasone Propion/Salmeterol 1 puff INHALATION RT-BID@0800,2100 07/16/22 09/06/22 [Wixela 250-50 Inhub] Ensure Enlive 237 ml PO DAILY@1700 09/06/22 09/06/22 HYDROcodone/APAP 5-325MG [[place] 1 tab PO Q4HR PRN 09/06/22 09/06/22 5-325] Ipratropium-Albuterol Nebulize 3 ml INHALATION RT-QID@08,12,17,21 09/06/22 09/06/22 [Duoneb 0.5 mg-3 mg/3 ml Soln] Mag Hydrox/Al Hydrox/Simeth 30 ml PO Q6H PRN 09/06/22 09/06/22 [Maalox] Magic Cup 1 can PO DAILY@1200 09/06/22 09/06/22 Magnesium Hydroxide [Milk of 7,200 mg PO DAILY PRN 09/06/22 09/06/22 Magnesia Concentrate] Mirtazapine 7.5 mg PO HS@2100 09/06/22 09/06/22 Na Phos,M-B/Na Phos,Di-Ba [Fleet 133 ml RECTAL DAILY PRN 09/06/22 09/06/22 Adult] Pantoprazole Sodium [Protonix] 40 mg PO DAILY@0600 09/06/22 09/06/22 Tamsulosin [Flomax] 0.4 mg PO BID@0800,1700 09/06/22 09/06/22 bisacodyL 10 mg RECTAL DAILY PRN 09/06/22 09/06/22 guaiFENesin [Mucinex] 600 mg PO Q12HR@0800,2100 09/06/22 09/06/22 predniSONE [Deltasone] 20 mg PO DAILY@0800 09/06/22 09/06/22 Previous Rx's Medication Instructions Recorded Acetaminophen Tab [Tylenol] 650 mg PO Q4HR PRN tab 08/29/22 Ibuprofen [Motrin] 400 mg PO Q6HR PRN tab 08/29/22 Apixaban [Eliquis Starter Pack 5 - 10 mg PO DIRECTED 30 Days 09/10/22 (for VTE)] #1 each Ciprofloxacin HCl [Cipro] 500 mg PO BID #12 tab 09/10/22 Allergies Allergy/AdvReac Type Severity Reaction Status Date / Time No Known Allergies Allergy Verified 09/06/22 22:01 Review of Systems ROS Statement: Those systems with pertinent positive or pertinent negative responses have been documented in the HPI. ROS Other: All systems not noted in ROS Statement are negative. Past Medical History Past Medical History: Cancer, COPD, GERD/Reflux Additional Past Medical History / Comment(s): positional upper abdominal pain stated when he changes position from laying to sitting and standing. History of Any Multi-Drug Resistant Organisms: None Reported Past Surgical History: Orthopedic Surgery, Tonsillectomy Additional Past Surgical History / Comment(s): Right shoulder arthroscopy. Colonoscopy. EGD Past Anesthesia/Blood Transfusion Reactions: No Reported Reaction Additional Past Anesthesia/Blood Transfusion Reaction / Comment(s): Pt has CLAUSTROPHOBIA Past Psychological History: No Psychological Hx Reported Smoking Status: Former smoker Past Alcohol Use History: None Reported Past Drug Use History: None Reported - Past Family History Father Family Medical History: Cancer Mother Family Medical History: Cancer Additional Family Medical History / Comment(s): Mother in her 50s with some form of cancer. Pt/spouse do not recall type of cancer. General Exam - General Exam Comments Initial Comments: General: Alert, in no acute distress Head: atraumatic normocephalic. Eyes PERRL, EOMI intact, mucous membranes moist Respiratory: Lungs clear to auscultation bilaterally Cardiovascular: Tachycardic Abdominal: Soft without guarding or rebound, ileostomy site without surrounding erythema and tingling or purulent discharge. Exploratory Laparatomy scar is tender without erythema, edema, fluctuance Extremities: Normal inspection with full range of motion and normal capillary refill Neuroogic: alert and oriented 3, CN II-XII intact, able to ambulate with steady gait Skin: warm dry and intact with normal color Limitations: no limitations Course Vital Signs 09/06/22 09/06/22 09/06/22 18:58 21:05 22:33 Temperature 98.2 F 98.1 F Pulse Rate 126 H 102 H 101 H Respiratory 22 22 22 Rate Blood Pressure 106/80 127/69 105/73 O2 Sat by Pulse 96 97 97 Oximetry 09/07/22 09/07/22 09/07/22 05:51 05:52 09:00 Temperature Pulse Rate 98 98 Respiratory 22 Rate Blood Pressure 105/69 105/69 O2 Sat by Pulse 94 L 94 L 85 L Oximetry 09/07/22 09/07/22 09:05 13:55 Temperature Pulse Rate 108 H Respiratory 18 Rate Blood Pressure 109/71 O2 Sat by Pulse 94 L 95 Oximetry - Reevaluation(s) Reevaluation #1: 09/06/22 21:00 Notified of L of elevated d-dimer result: 9.12. CT reports they are unable to do CT angiogram to rule out pulmonary embolism as patient is a very received 1 dose of contrast. Reevaluation #2: 09/06/22 22:22 Case discussed with saritha Milner who agrees and accepts the patient for admission 09/06/22 23:01 Critical result reported by stat radiology: CT angiogram reveals bilateral pulmonary embolisms in the segmental and lingular arteries, no evidence of right heart strain Medical Decision Making - Medical Decision Making Was pt. sent in by a medical professional or institution (, PA, [employer], urgent care, hospital, or half-way...) When possible be specific @ -[No] Did you speak to anyone other than the patient for history (EMS, parent, family, police, friend...)? What history was obtained from this source @ -[No] Did you review nursing and triage notes (agree or disagree)? Why? @ -[I reviewed and agree with nursing and triage notes] Were old charts reviewed (outside hosp., previous admission, EMS record, old EKG, old radiological studies, urgent care reports/EKG's, half-way records)? Report findings @ -[No old charts were reviewed] Differential Diagnosis (chest pain, altered mental status, abdominal pain women, abdominal pain men, vaginal bleeding, weakness, fever, dyspnea, syncope, headache, dizziness, GI bleed, back pain, seizure, CVA, palpatations, mental health, musculoskeletal)? @ -[not applicable] EKG interpreted by me (3pts min.). @ -[As above] X-rays interpreted by me (1pt min.). @ -[None done] CT interpreted by me (1pt min.). @ -[None done] U/S interpreted by me (1pt. min.). @ -[None done] What testing was considered but not performed or refused? (CT, X-rays, U/S, labs)? Why? @ -[None] What meds were considered but not given or refused? Why? @ -[None] Did you discuss the management of the patient with other professionals (pr ofessionals i.e. , PA, [employer], lab, RT, psych nurse, social media community manager, double backer, teacher, space operations officer, rehabilitation case coordinator)? Give summary @ -[No] Was smoking cessation discussed for >3mins.? @ -[No] Was critical care preformed (if so, how long)? @ -[No] Were there social determinants of health that impacted care today? How? (Homelessness, low income, unemployed, alcoholism, drug addiction, tra nsportation, low edu. Level, literacy, decrease access to med. care, prison, rehab)? @ -[No] Was there de-escalation of care discussed even if they declined (Discuss DNR or withdrawal of care, Hospice)? DNR status @ -[No] What co-morbidities impacted this encounter? (DM, HTN, Smoking, COPD, CAD, Cancer, CVA, ARF, Chemo, Hep., AIDS, mental health diagnosis, sleep apnea, morbid obesity)? @ -[None] Was patient admitted / discharged? Hospital course, mention meds given and route, prescriptions, significant lab abnormalities, going to OR and other pertinent info. @ -Admission. This is a 72-year-old male who presents the emergency department with fever. Patient had a thorough history and physical exam performed while in the ED. Physical exam reveals patient to be tachycardic. Lungs clear to auscultation. Abdomen is with generalized tenderness. Patient laboratory and imaging performed: Labs remarkable for WBC 16.3, hemoglobin 11.7 d-dimer 9.12 sodium 137 potassium 5.1 BUN 25, creatinine 1.01. Blood cultures pending. Urinalysis: CT reveals:CT reveals COPD without any acute changes from 08/22/22. There is mild thickening gastric fundus proximal body may be due to partial distention there is left mid abdominal sigmoid colostomy with left sided colonic diverticulosis no evidence for acute diverticulitis I discussed the results in detail with the patient verbalized understanding and all questions were addressed. He is agreeable to plan for admission at this time. It is my decision to admit the patient for further evaluation and manage ment. Patient was started on Lovenox. Case discussed with Dr. Son [facility] who agrees with plan of care Undiagnosed new problem with uncertain prognosis? @ -[No] Drug Therapy requiring intensive monitoring for toxicity (Heparin, Nitro, Insulin, Cardizem)? @ -[No] Were any procedures done? @ -[No] Diagnosis/symptom? @ -Sepsis -Elevated D-dimer - Bilateral Pulmonary Emboli Acute, or Chronic, or Acute on Chronic? @ -Acute Uncomplicated (without systemic symptoms) or Complicated (systemic symptoms)? @ -Complicated Side effects of treatment? @ -[No] Exacerbation, Progression, or Severe Exacerbation? @ -[No] Poses a threat to life or bodily function? How? (Chest pain, USA, DC, pneumonia, PE, COPD, DKA, ARF, appy, cholecystitis, CVA, Diverticulitis, Homicidal, Suicidal, threat to staff... and all critical care pts) @ -high likelihood including - Lab Data Result diagrams: 09/08/22 08:06 09/08/22 08:06 Lab Results 09/06/22 09/06/22 09/06/22 Range/Units 19:35 19:35 19:35 WBC 16.3 H (3.8-10.6) k/uL RBC 3.81 L (4.30-5.90) m/uL Hgb 11.7 L (13.0-17.5) gm/dL Hct 38.0 L (39.0-53.0) % MCV 99.7 (80.0-100.0) fL MCH 30.6 (25.0-35.0) pg MCHC 30.7 L (31.0-37.0) g/dL RDW 15.5 (11.5-15.5) % Plt Count 352 (150-450) k/uL MPV 7.0 Neutrophils % 88 % Lymphocytes % 7 % Monocytes % 4 % Eosinophils % 0 % Basophils % 0 % Neutrophils # 14.3 H (1.3-7.7) k/uL Lymphocytes # 1.2 (1.0-4.8) k/uL Monocytes # 0.6 (0-1.0) k/uL Eosinophils # 0.0 (0-0.7) k/uL Basophils # 0.0 (0-0.2) k/uL Hypochromasia Moderate Macrocytosis Slight PT (9.0-12.0) sec INR (<1.2) APTT (22.0-30.0) sec D-Dimer (<0.60) mg/L FEU Sodium 137 (137-145) mmol/L Potassium 5.1 (3.5-5.1) mmol/L Chloride 102 (98-107) mmol/L Carbon Dioxide 29 (22-30) mmol/L Anion Gap 6 mmol/L BUN 25 H (9-20) mg/dL Creatinine 1.01 (0.66-1.25) mg/dL Est GFR (CKD-EPI)AfAm 86 (>60 ml/min/1.73 sqM) Est GFR (CKD-EPI)NonAf 74 (>60 ml/min/1.73 sqM) Glucose 157 H (74-99) mg/dL Plasma Lactic Acid Luciano 1.3 (0.7-2.0) mmol/L Calcium 8.9 (8.4-10.2) mg/dL Total Bilirubin 0.5 (0.2-1.3) mg/dL AST 27 (17-59) U/L ALT 30 (4-49) U/L Alkaline Phosphatase 92 (38-126) U/L Total Protein 6.1 L (6.3-8.2) g/dL Albumin 3.4 L (3.5-5.0) g/dL Urine Color Urine Appearance (Clear) Urine pH (5.0-8.0) Ur Specific Hanson (1.001-1.035) Urine Protein (Negative) Urine Glucose (UA) (Negative) Urine Ketones (Negative) Urine Blood (Negative) Urine Nitrite (Negative) Urine Bilirubin (Negative) Urine Urobilinogen (<2.0) mg/dL Ur Leukocyte Esterase (Negative) Urine RBC (0-5) /hpf Urine WBC (0-5) /hpf Urine WBC Clumps (None) /hpf Urine Mucus (None) /hpf Urine Yeast (Budding) (None) /hpf Influenza Type A (PCR) (Not Detectd) Influenza Type B (PCR) (Not Detectd) RSV (PCR) (Not Detectd) SARS-CoV-2 (PCR) (Not Detectd) 09/06/22 09/06/22 09/06/22 Range/Units 19:35 19:50 21:30 WBC (3.8-10.6) k/uL RBC (4.30-5.90) m/uL Hgb (13.0-17.5) gm/dL Hct (39.0-53.0) % MCV (80.0-100.0) fL MCH (25.0-35.0) pg MCHC (31.0-37.0) g/dL RDW (11.5-15.5) % Plt Count (150-450) k/uL MPV Neutrophils % % Lymphocytes % % Monocytes % % Eosinophils % % Basophils % % Neutrophils # (1.3-7.7) k/uL Lymphocytes # (1.0-4.8) k/uL Monocytes # (0-1.0) k/uL Eosinophils # (0-0.7) k/uL Basophils # (0-0.2) k/uL Hypochromasia Macrocytosis PT 9.7 (9.0-12.0) sec INR 0.9 (<1.2) APTT 22.4 (22.0-30.0) sec D-Dimer 9.12 H (<0.60) mg/L FEU Sodium (137-145) mmol/L Potassium (3.5-5.1) mmol/L Chloride (98-107) mmol/L Carbon Dioxide (22-30) mmol/L Anion Gap mmol/L BUN (9-20) mg/dL Creatinine (0.66-1.25) mg/dL Est GFR (CKD-EPI)AfAm (>60 ml/min/1.73 sqM) Est GFR (CKD-EPI)NonAf (>60 ml/min/1.73 sqM) Glucose (74-99) mg/dL Plasma Lactic Acid Luciano (0.7-2.0) mmol/L Calcium (8.4-10.2) mg/dL Total Bilirubin (0.2-1.3) mg/dL AST (17-59) U/L ALT (4-49) U/L Alkaline Phosphatase (38-126) U/L Total Protein (6.3-8.2) g/dL Albumin (3.5-5.0) g/dL Urine Color Yellow Urine Appearance Cloudy (Clear) Urine pH 5.5 (5.0-8.0) Ur Specific Hanson 1.018 (1.001-1.035) Urine Protein Trace H (Negative) Urine Glucose (UA) Negative (Negative) Urine Ketones Negative (Negative) Urine Blood Moderate H (Negative) Urine Nitrite Negative (Negative) Urine Bilirubin Negative (Negative) Urine Urobilinogen <2.0 (<2.0) mg/dL Ur Leukocyte Esterase Large H (Negative) Urine RBC 14 H (0-5) /hpf Urine WBC 60 H (0-5) /hpf Urine WBC Clumps Rare H (None) /hpf Urine Mucus Rare H (None) /hpf Urine Yeast (Budding) Rare H (None) /hpf Influenza Type A (PCR) Not Detected (Not Detectd) Influenza Type B (PCR) Not Detected (Not Detectd) RSV (PCR) Not Detected (Not Detectd) SARS-CoV-2 (PCR) Not Detected (Not Detectd) Disposition Clinical Impression: Sepsis, Elevated d-dimer, Bilateral pulmonary embolism Disposition: ADMITTED IP TO THIS HOSP Condition: Fair Is patient prescribed a controlled substance at d/c from ED?: No Time of Disposition: 20:24
--- NOTE | 2022-09-06 19:54 | XR ---
EXAMINATION TYPE: XR chest 2V DATE OF EXAM: 09/06/2022 COMPARISON: 08/23/2022 HISTORY: 72-year-old male with cough and fever TECHNIQUE: AP and lateral views FINDINGS: Heart normal size. Aorta and pulmonary vasculature within normal limits. Marked hyperinflation. Shelley ening of the hemidiaphragms. No gaudencio consolidation or pleural effusion is seen. Moderate degenerativ e disc disease midthoracic spine. Post surgical change distal right clavicle. IMPRESSION: COPD. No definite acute process.
[2022-09-06 19:59] LABS: ALT 30 U/L (4-49); AST 27 U/L (17-59); African American GFR (CKD) 86 (>60 ml/min/1.73 sqM); Albumin 3.4 g/dL (3.5-5.0); Alkaline Phosphatase 92 U/L (38-126); Anion Gap 6 mmol/L; Blood Urea Nitrogen 25 mg/dL (9-20); Calcium 8.9 mg/dL (8.4-10.2); Carbon Dioxide 29 mmol/L (22-30); Chloride 102 mmol/L (98-107); Glucose 157 mg/dL (74-99); Non-African American GFR(CKD) 74 (>60 ml/min/1.73 sqM); Potassium 5.1 mmol/L (3.5-5.1); Sodium 137 mmol/L (137-145); Total Bilirubin 0.5 mg/dL (0.2-1.3); Total Protein 6.1 g/dL (6.3-8.2)
[2022-09-06 20:07] LABS: Basophils % (A) 0 %; Eosinophils % (A) 0 %; HGB 11.7 gm/dL (13.0-17.5); Hypochromasia Moderate; Lymphocytes # (A) 1.2 k/uL (1.0-4.8); Lymphocytes % (A) 7 %; MCH 30.6 pg (25.0-35.0); MCHC 30.7 g/dL (31.0-37.0); MCV 99.7 fL (80.0-100.0); Macrocytosis Slight; Monocytes # (A) 0.6 k/uL (0-1.0); Monocytes % (A) 4 %; Neutrophils # (A) 14.3 k/uL (1.3-7.7); Neutrophils % (A) 88 %; Platelet Count 352 k/uL (150-450); RBC 3.81 m/uL (4.30-5.90); RDW 15.5 % (11.5-15.5); WBC 16.3 k/uL (3.8-10.6)
[2022-09-06] MEDS ORDERED: VANCOMYCIN IV PER PHARMACY 1 EACH MISC MISCELLANE PRN (20:19)
[2022-09-06 20:25] LABS: INR 0.9 (<1.2); Partial Thromboplastin Time 22.4 sec (22.0-30.0); Prothrombin Time 9.7 sec (9.0-12.0)
[2022-09-06] MEDS ORDERED: VANCOMYCIN 1,250 MG in SODIUM CHLORIDE 0.9% 250 ML IVPB ONE (21:00)
[2022-09-06] MEDS ORDERED: ENOXAPARIN 40 MG/0.4 ML SYRINGE SQ STA (21:01)
[2022-09-06] MEDS ORDERED: SODIUM CHLORIDE 0.9% 1,000 ML IV ONE (21:04)
--- NOTE | 2022-09-06 21:06 | CT ---
EXAMINATION TYPE: CT abdomen pelvis w con DATE OF EXAM: 09/06/2022 COMPARISON: 08/22/2022 HISTORY: 72-year-old male generalized abd pain. TECHNIQUE: Contiguous axial scanning of the abdomen and pelvis following administration of 100 ml Iso dusty 300 IV contrast. Delayed images through the kidneys and coronal/sagittal reconstructions perform ed. CT DLP: 633.1 mGycm Automated exposure control for dose reduction was used. FINDINGS: Heart normal size without pericardial effusion. Emphysematous changes in the lower lungs. Some mild i nterstitial infiltrates are suggested. Possible 9 mm nodule medial right lower lobe, axial image 4 for which follow-up is recommended. No pl eural effusion. Small hiatal hernia. Mild fold thickening gastric fundus and proximal body may be due to partial distention. Numerous small cysts at the left hepatic dome measuring up to 7 mm. Portal venous system is patent. N o biliary ductal dilatation. Gallbladder, adrenal glands, kidneys, and pancreas within normal limits. Calcified granulomas within the spleen. No dilated small bowel, fluid, or free air. Suspect some inspissated material within the nondilated appendix. Moderate overall stool burden. Left -sided colonic diverticulosis. There is a left midabdominal sigmoid colostomy. Judy pouch noted w ith some diverticular change at the distal sigmoid as well. No mesenteric or retroperitoneal lymphadenopathy. Moderate arthroscopic calcifications infrarenal abd ominal aorta and common iliac arteries. Anterior skin talya from prior laparotomy. Bladder nondistended. Art catheter is in place. Intraluminal bladder air relating to the instrument ation. Prostate gland enlargement 5.4 cm wide. No abnormal fluid collection in the pelvis or pelvic l ymphadenopathy. Unchanged stranding just behind the right inguinal ring. Query any history of prior i nguinal hernia repair. Bones: Moderate to advanced multilevel spondylotic change. Degenerative grade 1 retrolisthesis L2-L3 and L4-L5. Hypertrophic facet arthropathy throughout. IMPRESSION: 1. COPD IN THE VISUALIZED LOWER LUNGS AND SOME POSSIBLE MILD INTERSTITIAL INFILTRATES. CORRELATE FOR ANY INFECTIOUS RESPIRATORY SIGNS/SYMPTOMS. APPEARANCE IS RELATIVELY SIMILAR COMPARED TO 08/22/2022. 2. THERE MAY BE A DEVELOPING 9 MM MEDIAL RIGHT LOWER LOBE PULMONARY NODULE. RECOMMEND FOLLOW-UP CHEST IN 3 MONTHS TO REASSESS. 3. Fold thickening gastric fundus and proximal body may be due to partial distention. Correlate for a ny symptoms of gastritis. Small hiatal hernia. 4. Left mid abdominal sigmoid colostomy. Left-sided colonic diverticulosis. No evidence for acute div erticulitis. Hogan's pouch. Moderate overall snowboarding. 5. Art catheter in place. The bladder is collapsed. Prostatomegaly at 5.4 cm wide.
[2022-09-06 21:10] LABS: Appearance,Urine Cloudy (Clear); Bilirubin,Urine Negative (Negative); Blood,Urine Moderate (Negative); Budding Yeast,Urine Rare /hpf; Color,Urine Yellow; Glucose,Urine (UA) Negative (Negative); Ketones,Urine Negative (Negative); Leukocyte Esterase,Urine Large (Negative); Mucus,Urine Rare /hpf; Nitrite,Urine Negative (Negative); PH, Urine 5.5 (5.0-8.0); Protein,Urine Trace (Negative); RBC,Urine 14 /hpf (0-5); Specific Gravity,Urine 1.018 (1.001-1.035); Urobilinogen,Urine <2.0 mg/dL (<2.0); WBC,Urine 60 /hpf (0-5)
[2022-09-06] MEDS ORDERED: NALOXONE 0.4 MG/ML 1 ML VIAL IV PRN (22:16)
[2022-09-06] MEDS ORDERED: ACETAMINOPHEN TAB 325 MG TAB PO PRN (22:17)
[2022-09-06] MEDS: SODIUM CHLORIDE 0.9% 1,000 ML IV SCH (22:37)
--- NOTE | 2022-09-06 23:01 | P.HPIM ---
History of Present Illness H&P Date: 09/06/22 The patient is a 72-year-old male with a PMH of COPD with chronic hypoxic respiratory failure on 3 L nasal cannula continuous oxygen, recent bout of perforated diverticulitis status post sigmoid resection and colostomy, admtited on 07/29 with a prolonged hospitalization with discharge on 08/29 presented from [facility] to the emergency room with complaints of fever and abdominal pain. The patient reports that over the past 24 hours, he has been experiencing feeling hot and cold and feverish. He also reports increasing pain at the site of his incision, but states that is somewhat deeper from the incision site. Patient has had an indwelling Art since his surgery 1 month ago. Denies any urinary complaints. He denied chest discomfort or shortness of breath. Also denied nausea or vomiting. In the emergency room, CT abdomen and pelvis revealed COPD with possible developing 9 mm right lower lobe nodule requiring follow-up, with Art catheter noted. Chest x-ray was unremarkable. Laboratory evaluation was remarkable for leukocytosis of 16.3, hemoglobin 11.7, d-dimer 9.12, BUN 25, creatinine 1.01, glucose 157, with UA consistent with UTI. The patient was noted to be febrile at [facility] 100.8 and was given Tylenol. ED documentation reviewed and case discussed with ED provider. Review of systems: Pertinent positives and negatives as discussed in HPI, a complete review of systems was performed and all other systems are negative. Physical examination: Vital signs reviewed General: non toxic, no distress, appears at stated age Derm: Midline abdominal incision with talya in place without surrounding erythema or discharge, no unusual rashes/lesions, warm Head: atraumatic, normocephalic, symmetric Eyes: EOMI, no lid lag, anicteric sclera, pupils equal round reactive to light ENT: Nose and ears atraumatic Neck: No cervical lymphadenopathy, trachea midline, supple Mouth: no lip lesion, mucus membranes moist Cardiovascular: S1S2 reg, no murmur, positive dorsalis pedis pulse bilateral, no edema Lungs: CTA bilateral, no rhonchi, no rales, no accessory muscle use Abdominal: soft, tenderness noted surrounding the midline abdominal incision, no guarding Ext: muscle strength 4 out of 5 in all 4 extremities grossly, no gross muscle atrophy, no contractures, Neuro: CN II-XI grossly intact, no gross focal neuro deficits Psych: Alert, oriented, appropriate affect Assessment: Sepsis secondary to CAUTI Elevated D-dimer Status post recent colectomy and colostomy Pulmonary nodule Chronic conditions: COPD with chronic hypoxic respiratory failure oxygen dependent Imaging: In the emergency room, CT abdomen and pelvis revealed COPD with possible developing 9 mm right lower lobe nodule requiring follow-up, with Art catheter noted. Chest x-ray was unremarkable. Data Review: Laboratory evaluation was remarkable for leukocytosis of 16.3, hemoglobin 11.7, d-dimer 9.12, BUN 25, creatinine 1.01, glucose 157, with UA consistent with UTI. The patient was noted to be febrile at [facility] 100.8 and was given Tylenol. Plan: Continue with IV antibiotics with ceftriaxone Follow-up urine culture General surgery consulted for ongoing pain surrounding the abdominal incision F/u Chest CTA for PE Patient will need follow-up for newly discovered pulmonary nodule DVT prophylaxis: Heparin subcu The patient is admitted with an anticipated greater than 2 midnight stay for evaluation of sepsis secondary to UTI CODE STATUS: Full Code Discussed with: Patient Anticipated discharge date: 3-[address]: [facility] Past Medical History Past Medical History: Cancer, COPD, GERD/Reflux Additional Past Medical History / Comment(s): positional upper abdominal pain st ated when he changes position from laying to sitting and standing. History of Any Multi-Drug Resistant Organisms: None Reported Past Surgical History: Orthopedic Surgery, Tonsillectomy Additional Past Surgical History / Comment(s): Right shoulder arthroscopy. Colonoscopy. EGD Past Anesthesia/Blood Transfusion Reactions: No Reported Reaction Additional Past Anesthesia/Blood Transfusion Reaction / Comment(s): Pt has CLAUSTROPHOBIA Past Psychological History: No Psychological Hx Reported Smoking Status: Former smoker Past Alcohol Use History: None Reported Past Drug Use History: None Reported - Past Family History Father Family Medical History: Cancer Mother Family Medical History: Cancer Additional Family Medical History / Comment(s): Mother in her 50s with some form of cancer. Pt/spouse do not recall type of cancer. Medications and Allergies Home Medications Medication Instructions Recorded Confirmed Type Multivitamins, Thera [Multivitamin 1 tab PO DAILY@1200 01/22/20 09/06/22 History (formulary)] Ipratropium-Albuterol Nebulize 3 ml INHALATION RT-QID PRN 07/30/21 09/06/22 History [Duoneb 0.5 mg-3 mg/3 ml Soln] Fluticasone Propion/Salmeterol 1 puff INHALATION RT-BID@0800,209907/16/22 09/06/22 History [Wixela 250-50 Inhub] Acetaminophen Tab [Tylenol] 650 mg PO Q4HR PRN tab 08/29/22 09/06/22 Rx Ibuprofen [Motrin] 400 mg PO Q6HR PRN tab 08/29/22 09/06/22 Rx Anidulafungin [Eraxis] 100 mg IVPB DAILY@0809/06/22 09/06/22 History Ensure Enlive 237 ml PO DAILY@169909/06/22 09/06/22 History HYDROcodone/APAP 5-325MG [[place] 1 tab PO Q4HR PRN 09/06/22 09/06/22 History 5-325] Ipratropium-Albuterol Nebulize 3 ml INHALATION RT-QID@08,,,09/06/22 0 09/06/22 History [Duoneb 0.5 mg-3 mg/3 ml Soln] Mag Hydrox/Al Hydrox/Simeth 30 ml PO Q6H PRN 09/06/22 09/06/22 History [Maalox] Magic Cup 1 can PO DAILY@119909/06/22 09/06/22 History Magnesium Hydroxide [Milk of 7,200 mg PO DAILY PRN 09/06/22 09/06/22 History Magnesia Concentrate] Mirtazapine 7.5 mg PO HS@209909/06/22 09/06/22 History Na Phos,M-B/Na Phos,Di-Ba [Fleet 133 ml RECTAL DAILY PRN 09/06/22 09/06/22 History Adult] Pantoprazole Sodium [Protonix] 40 mg PO DAILY@0609/06/22 09/06/22 History Tamsulosin [Flomax] 0.4 mg PO BID@0800,169909/06/22 09/06/22 History bisacodyL 10 mg RECTAL DAILY PRN 09/06/22 09/06/22 History guaiFENesin [Mucinex] 600 mg PO Q12HR@0800,209909/06/22 09/06/22 History predniSONE [Deltasone] 20 mg PO DAILY@0800 09/06/22 09/06/22 History Allergies Allergy/AdvReac Type Severity Reaction Status Date / Time No Known Allergies Allergy Verified 09/06/22 22:01 Physical Exam Vitals: Vital Signs Temp Pulse Resp BP Pulse Ox 09/06/22 22:33 98.1 F 101 H 22 105/73 97 09/06/22 18:58 98.2 F 126 H 22 106/80 96 Intake and Output 09/06/22 09/06/22 09/06/22 06:59 14:59 22:59 Other: Weight 55.338 kg Results CBC & Chem 7: 09/06/22 19:35 09/06/22 19:35 Labs: Abnormal Lab Results - Last 24 Hours (Table) 09/06/22 09/06/22 09/06/22 Range/Units 19:35 19:35 19:35 WBC 16.3 H (3.8-10.6) k/uL RBC 3.81 L (4.30-5.90) m/uL Hgb 11.7 L (13.0-17.5) gm/dL Hct 38.0 L (39.0-53.0) % MCHC 30.7 L (31.0-37.0) g/dL Neutrophils # 14.3 H (1.3-7.7) k/uL D-Dimer 9.12 H (<0.60) mg/L FEU BUN 25 H (9-20) mg/dL Glucose 157 H (74-99) mg/dL Total Protein 6.1 L (6.3-8.2) g/dL Albumin 3.4 L (3.5-5.0) g/dL Urine Protein (Negative) Urine Blood (Negative) Ur Leukocyte Esterase (Negative) Urine RBC (0-5) /hpf Urine WBC (0-5) /hpf Urine WBC Clumps (None) /hpf Urine Mucus (None) /hpf Urine Yeast (Budding) (None) /hpf 09/06/22 Range/Units 19:50 WBC (3.8-10.6) k/uL RBC (4.30-5.90) m/uL Hgb (13.0-17.5) gm/dL Hct (39.0-53.0) % MCHC (31.0-37.0) g/dL Neutrophils # (1.3-7.7) k/uL D-Dimer (<0.60) mg/L FEU BUN (9-20) mg/dL Glucose (74-99) mg/dL Total Protein (6.3-8.2) g/dL Albumin (3.5-5.0) g/dL Urine Protein Trace H (Negative) Urine Blood Moderate H (Negative) Ur Leukocyte Esterase Large H (Negative) Urine RBC 14 H (0-5) /hpf Urine WBC 60 H (0-5) /hpf Urine WBC Clumps Rare H (None) /hpf Urine Mucus Rare H (None) /hpf Urine Yeast (Budding) Rare H (None) /hpf
[2022-09-07] MEDS ORDERED: HYDROcodone/APAP 5-325MG 1 EACH TAB ONE (01:14)
[2022-09-07] MEDS ORDERED: HEPARIN SOD,PORK IN 0.45% NACL PMX 25,000 UNIT/250 ML BAG IV ONE (01:14)
[2022-09-07] MEDS ORDERED: HEPARIN SODIUM 1,000 UN/ML (10ML VL) ONE (01:14)
--- NOTE | 2022-09-07 05:29 | CT ---
EXAM: CT Angiography Chest With Intravenous Contrast CLINICAL HISTORY: ITS.REASON CT Reason: Dimer 9.12 TECHNIQUE: Axial computed tomographic angiography images of the chest with intravenous contrast. CTDI is 10.17 mGy and DLP is 220.8 mGy-cm. This CT exam was performed using one or more of the following dose reduction techniques: automated exposure control, adjustment of the mA and/or kV according to patient size, and/or use of iterative reconstruction technique. MIP reconstructed images were created and reviewed. COMPARISON: 08/13/2022 FINDINGS: Pulmonary arteries: Positive study for pulmonary embolism to the right middle lobe segmental arteries, lingular lobar artery, and segmental right lower lobe pulmonary arteries. Aorta: No acute findings. No thoracic aortic aneurysm. Lungs: Severe centrilobular emphysema. 1 cm irregular spiculated nodular density within the central medial right lower lobe. Right posterior lung base spiculated nodular density favored to represent round atelectasis. No mass. Pleural space: Unremarkable. No significant effusion. No pneumothorax. Heart: Unremarkable. No significant pericardial effusion. No evidence of right heart strain. Bones/joints: No acute fracture. No dislocation. Soft tissues: Unremarkable. Lymph nodes: Unremarkable. No enlarged lymph nodes. IMPRESSION: 1. Positive study for pulmonary embolism to the right middle lobe segmental arteries, lingular lobar artery, and segmental right lower lobe pulmonary arteries. Discussed with KALEN Conti on 09/06 23:03 (-04:00). 2. 1 cm irregular spiculated nodular density within the central medial right lower lobe. Further evaluation is warranted. 3. Right posterior lung base spiculated nodular density favored to represent round atelectasis. <MYCVCSECTION> Communications: 09/06/22 23:03 Call Doctor Regarding Pulmonary Embolism, called Dr. Angeles Wynne on 09/06 23:03 (-04:00)
[2022-09-07] MEDS ORDERED: HEPARIN SODIUM 1,000 UN/ML (10ML VL) IV ONE (06:21)
[2022-09-07] MEDS ORDERED: HEPARIN SODIUM 1,000 UN/ML (10ML VL) IV PRN (06:21)
[2022-09-07] MEDS: HEPARIN SOD,PORK IN 0.45% NACL 25,000 UNIT in 0.45% NACL 1 250ML.BAG IV SCH (06:24)
[2022-09-07] MEDS: HYDROcodone/APAP 5-325MG 1 EACH TAB PO PRN ×3 (09:13→20:55)
[2022-09-07 10:54] LABS: Basophils % (A) 0 %; Eosinophils % (A) 0 %; HCT 35.3 % (39.0-53.0); HGB 10.6 gm/dL (13.0-17.5); Hypochromasia Moderate; Lymphocytes # (A) 1.6 k/uL (1.0-4.8); Lymphocytes % (A) 11 %; MCH 29.7 pg (25.0-35.0); MCHC 30.1 g/dL (31.0-37.0); MCV 98.6 fL (80.0-100.0); Macrocytosis Slight; Mean Platelet Volume 7.7; Monocytes # (A) 0.6 k/uL (0-1.0); Monocytes % (A) 4 %; Neutrophils % (A) 83 %; Platelet Count 313 k/uL (150-450); RBC 3.58 m/uL (4.30-5.90); RDW 15.5 % (11.5-15.5); WBC 14.4 k/uL (3.8-10.6)
[2022-09-07 11:24] LABS: Partial Thromboplastin Time 60.7 sec (22.0-30.0); Prothrombin Time 10.4 sec (9.0-12.0)
[2022-09-07] MEDS: SODIUM CHLORIDE 0.9% 1,000 ML IV SCH (11:44)
[2022-09-07] MEDS ORDERED: VANCOMYCIN 1,000 MG in SODIUM CHLORIDE 0.9% 250 ML IVPB SCH (12:00)
--- NOTE | 2022-09-07 12:34 | P.GSCN ---
History of Present Illness Consult date: 09/07/22 History of present illness: CHIEF COMPLAINT: Fever and not feeling well HISTORY OF PRESENT ILLNESS: This is a 72-year-old male who came to the hospital from [facility] with complaints of overall not feeling well and fevers. He reports his been fatigued and short of breath and having fevers. He reports a low-grade fever yesterday of 100.8. He also complains of abdominal pains. He was found have evidence of UTI. His catheter was exchanged in the ER. He is on antibiotics. He had a CT of the chest that didn't show evidence of a pulmonary embolism and has been started on IV heparin. Computed tomography scan abdomen and pelvis that showed fold thickening of the gastric fundus and proximal body and correlate for gastritis. Also evidence of a small hiatal hernia and moderate stool burden. Patient reports that his ostomy is functioning. He does report decrease in oral intake. Patient had recent Judy procedure with sigmoid resection with end colostomy for perforated diverticulitis on 08/02/2022. Patient does have a known history of severe COPD. Patient seen and examined with Dr. meadows PAST MEDICAL HISTORY: See below PAST SURGICAL HISTORY: See below MEDICATIONS: See below ALLERGIES: See below SOCIAL HISTORY: No illicit drug use. REVIEW OF SYSTEMS: CONSTITUTIONAL: Denies fever or chills. HEENT: Denies blurred vision, vision changes, or eye pain. Denies hemoptysis CARDIOVASCULAR: Denies chest pain or pressure. RESPIRATORY: No shortness of breath. GASTROINTESTINAL: See HPI for pertinent findings HEMATOLOGIC: Denies bleeding disorders. GENITOURINARY: Denies any blood in urine or increased urinary frequency. SKIN: Denies pruitis. Denies rash. PHYSICAL EXAM: VITAL SIGNS: Reviewed GENERAL: Well-developed in no acute distress. HEENT: No sclera icterus. Extraocular movements grossly intact. Moist buccal mucosa. Head is atraumatic, normocephalic. No nasal drainage. ABDOMEN: Soft. Nondistended. Incision site clean dry and intact. Ostomy functioning. Patient had mild tenderness with palpation of the epigastric and lower suprapubic area. NEUROLOGIC: Alert and oriented. Cranial nerves II through XII grossly intact. LABORATORY DATA: WBC 16.3-14.4 HB 10.6 platelets 313 INR 1.0 Denisse 137 potassium is 5.1 creatinine 1.01 lactic acid 1.3 LFTs normal Urinalysis evidence of infection Influenza, RSV and COVID-19 not detected IMAGING: Chest x-ray COPD. No definite acute process Computed tomography scan abdomen COPD. Developing 9 mm medial right lower lobe pulmonary nodule. Fold thickening gastric fundus and proximal body may be due to partial distention. Correlate for any symptoms of gastritis. Small hiatal hernia. Left mid abdomen sigmoid colostomy. Left-sided colonic diverticulosis. No evidence for acute diverticulitis. Hogan's pouch. Moderate stool burden. Art catheter in place. Bladder collapse. Prostamegaly 5.4 cm. Chest CTA positive study for pulmonary embolism to the right middle lobe segmental arteries, lingular lobe artery and segmental right lower lobe pulmon bhupendra arteries. Once in irregular speculated nodular density within the central medial right lower lobe. Right posterior lung base speculated nodular density. Return present round atelectasis ASSESSMENT: 1. UTI and fever 2. Abdominal pain. Ostomy functioning. No evidence of sepsis in abdomen 3. PE 4. Recent Judy procedure with sigmoid resection with end colostomy for perforated diverticulitis on 08/02/2022 PLAN: -No evidence of sepsis and abdomen. -No surgical intervention planned -Continue antibiotics for UTI -Recommend to remove Art catheter if possible -Consult pulmonary service due to new PE -Remove talya from abdominal incision -Continue supportive care Thank you for this consultation Physician Barber Instructor note has been reviewed by physician. Signing provider agrees with the documented findings, assessment, and plan of care. All Past Medical History Past Medical History: Cancer, COPD, GERD/Reflux Additional Past Medical History / Comment(s): positional upper abdominal pain stated when he changes position from laying to sitting and standing. History of Any Multi-Drug Resistant Organisms: None Reported Past Surgical History: Orthopedic Surgery, Tonsillectomy Additional Past Surgical History / Comment(s): Right shoulder arthroscopy. Colonoscopy. EGD Past Anesthesia/Blood Transfusion Reactions: No Reported Reaction Additional Past Anesthesia/Blood Transfusion Reaction / Comm: Pt has CLAUSTROPHOBIA Past Psychological History: No Psychological Hx Reported Smoking Status: Former smoker Past Alcohol Use History: None Reported Past Drug Use History: None Reported - Past Family History Father Family Medical History: Cancer Mother Family Medical History: Cancer Additional Family Medical History / Comment(s): Mother in her 50s with some form of cancer. Pt/spouse do not recall type of cancer. Medications and Allergies Home Medications Medication Instructions Recorded Confirmed Type Multivitamins, Thera [Multivitamin 1 tab PO DAILY@1200 01/22/20 09/06/22 History (formulary)] Ipratropium-Albuterol Nebulize 3 ml INHALATION RT-QID PRN 07/30/21 09/06/22 History [Duoneb 0.5 mg-3 mg/3 ml Soln] Fluticasone Propion/Salmeterol 1 puff INHALATION RT-BID@0800,209907/16/22 09/06/22 History [Wixela 250-50 Inhub] Acetaminophen Tab [Tylenol] 650 mg PO Q4HR PRN tab 08/29/22 09/06/22 Rx Ibuprofen [Motrin] 400 mg PO Q6HR PRN tab 08/29/22 09/06/22 Rx Anidulafungin [Eraxis] 100 mg IVPB DAILY@0800 09/06/22 09/06/22 History Ensure Enlive 237 ml PO DAILY@1700 09/06/22 09/06/22 History HYDROcodone/APAP 5-325MG [[place] 1 tab PO Q4HR PRN 09/06/22 09/06/22 History 5-325] Ipratropium-Albuterol Nebulize 3 ml INHALATION RT-QID@,,,09/06/22 09/06/22 History [Duoneb 0.5 mg-3 mg/3 ml Soln] Mag Hydrox/Al Hydrox/Simeth 30 ml PO Q6H PRN 09/06/22 09/06/22 History [Maalox] Magic Cup 1 can PO DAILY@119909/06/22 09/06/22 History Magnesium Hydroxide [Milk of 7,200 mg PO DAILY PRN 09/06/22 09/06/22 History Magnesia Concentrate] Mirtazapine 7.5 mg PO HS@209909/06/22 09/06/22 History Na Phos,M-B/Na Phos,Di-Ba [Fleet 133 ml RECTAL DAILY PRN 09/06/22 09/06/22 History Adult] Pantoprazole Sodium [Protonix] 40 mg PO DAILY@0600 09/06/22 09/06/22 History Tamsulosin [Flomax] 0.4 mg PO BID@0800,1700 09/06/22 09/06/22 History bisacodyL 10 mg RECTAL DAILY PRN 09/06/22 09/06/22 History guaiFENesin [Mucinex] 600 mg PO Q12HR@0800,2100 09/06/22 09/06/22 History predniSONE [Deltasone] 20 mg PO DAILY@0800 09/06/22 09/06/22 History Allergies Allergy/AdvReac Type Severity Reaction Status Date / Time No Known Allergies Allergy Verified 09/06/22 22:01 Surgical - Exam Vital Signs Temp Pulse Resp BP Pulse Ox 98.2 F 126 H 22 106/80 96 09/06/22 18:58 09/06/22 18:58 09/06/22 18:58 09/06/22 18:58 09/06/22 18:58 Results - Labs 09/07/22 09:45 09/06/22 19:35 Abnormal Lab Results - Last 24 Hours (Table) 09/06/22 09/06/22 09/06/22 Range/Units 19:35 19:35 19:35 WBC 16.3 H (3.8-10.6) k/uL RBC 3.81 L (4.30-5.90) m/uL Hgb 11.7 L (13.0-17.5) gm/dL Hct 38.0 L (39.0-53.0) % MCHC 30.7 L (31.0-37.0) g/dL Neutrophils # 14.3 H (1.3-7.7) k/uL D-Dimer 9.12 H (<0.60) mg/L FEU BUN 25 H (9-20) mg/dL Glucose 157 H (74-99) mg/dL Total Protein 6.1 L (6.3-8.2) g/dL Albumin 3.4 L (3.5-5.0) g/dL Urine Protein (Negative) Urine Blood (Negative) Ur Leukocyte Esterase (Negative) Urine RBC (0-5) /hpf Urine WBC (0-5) /hpf Urine WBC Clumps (None) /hpf Urine Mucus (None) /hpf Urine Yeast (Budding) (None) /hpf 09/06/22 Range/Units 19:50 WBC (3.8-10.6) k/uL RBC (4.30-5.90) m/uL Hgb (13.0-17.5) gm/dL Hct (39.0-53.0) % MCHC (31.0-37.0) g/dL Neutrophils # (1.3-7.7) k/uL D-Dimer (<0.60) mg/L FEU BUN (9-20) mg/dL Glucose (74-99) mg/dL Total Protein (6.3-8.2) g/dL Albumin (3.5-5.0) g/dL Urine Protein Trace H (Negative) Urine Blood Moderate H (Negative) Ur Leukocyte Esterase Large H (Negative) Urine RBC 14 H (0-5) /hpf Urine WBC 60 H (0-5) /hpf Urine WBC Clumps Rare H (None) /hpf Urine Mucus Rare H (None) /hpf Urine Yeast (Budding) Rare H (None) /hpf Diabetes panel 09/06/22 Range/Units 19:35 Sodium 137 (137-145) mmol/L Potassium 5.1 (3.5-5.1) mmol/L Chloride 102 (98-107) mmol/L Carbon Dioxide 29 (22-30) mmol/L BUN 25 H (9-20) mg/dL Creatinine 1.01 (0.66-1.25) mg/dL Glucose 157 H (74-99) mg/dL Calcium 8.9 (8.4-10.2) mg/dL AST 27 (17-59) U/L ALT 30 (4-49) U/L Alkaline Phosphatase 92 (38-126) U/L Total Protein 6.1 L (6.3-8.2) g/dL Albumin 3.4 L (3.5-5.0) g/dL Calcium panel 09/06/22 Range/Units 19:35 Calcium 8.9 (8.4-10.2) mg/dL Albumin 3.4 L (3.5-5.0) g/dL Pituitary panel 09/06/22 Range/Units 19:35 Sodium 137 (137-145) mmol/L Potassium 5.1 (3.5-5.1) mmol/L Chloride 102 (98-107) mmol/L Carbon Dioxide 29 (22-30) mmol/L BUN 25 H (9-20) mg/dL Creatinine 1.01 (0.66-1.25) mg/dL Glucose 157 H (74-99) mg/dL Calcium 8.9 (8.4-10.2) mg/dL Adrenal panel 09/06/22 Range/Units 19:35 Sodium 137 (137-145) mmol/L Potassium 5.1 (3.5-5.1) mmol/L Chloride 102 (98-107) mmol/L Carbon Dioxide 29 (22-30) mmol/L BUN 25 H (9-20) mg/dL Creatinine 1.01 (0.66-1.25) mg/dL Glucose 157 H (74-99) mg/dL Calcium 8.9 (8.4-10.2) mg/dL Total Bilirubin 0.5 (0.2-1.3) mg/dL AST 27 (17-59) U/L ALT 30 (4-49) U/L Alkaline Phosphatase 92 (38-126) U/L Total Protein 6.1 L (6.3-8.2) g/dL Albumin 3.4 L (3.5-5.0) g/dL
[2022-09-07] MEDS ORDERED: HYDROcodone/APAP 5-325MG 1 EACH TAB PO PRN (14:46)
[2022-09-07] MEDS ORDERED: IPRATROPIUM-ALBUTEROL 3 ML NEB INHALATION PRN (14:46)
--- NOTE | 2022-09-07 14:57 | P.PN ---
Subjective Progress Note Date: 09/07/22 The patient is a 72-year-old male with a PMH of COPD with chronic hypoxic respiratory failure on 3 L nasal cannula continuous oxygen, recent bout of perforated diverticulitis status post sigmoid resection and colostomy, admtited on 07/29 with a prolonged hospitalization with discharge on 08/29 presented from [facility] to the emergency room with complaints of fever and abdominal pain. In the emergency room, CT abdomen and pelvis revealed COPD with possible developing 9 mm right lower lobe nodule requiring follow-up, with Art catheter noted. Chest x-ray was unremarkable. Laboratory evaluation was remarkable for leukocytosis of 16.3, hemoglobin 11.7, d-dimer 9.12, BUN 25, creatinine 1.01, glucose 157, with UA consistent with UTI. The patient was noted to be febrile at [facility] 100.8 and was given Tylenol. Chest CTA consistent with bilateral pulmonary embolism. Patient was started on heparin infusion. Patient was seen and examined. He is currently on 4L NC. He reports shortness of breath worsened with exertion. He denies any chest pain. He reports some suprapubic tenderness. General: non toxic, no distress, appears at stated age Derm: warm, dry Head: atraumatic, normocephalic, symmetric Eyes: EOMI, no lid lag, anicteric sclera Mouth: no lip lesion, mucus membranes moist Cardiovascular: Tachycardic, no murmur Lungs: Coarse breath sounds bilateral, no rhonchi, no rales , no accessory mu scle use Abdominal: soft, suprapubic tenderness, no guarding, no appreciable organomegaly, midline surgical scar intact with colostomy Ext: no gross muscle atrophy, no edema, no contractures Neuro: no focal neuro deficits Psych: Alert, oriented, appropriate affect Sepsis secondary to CAUTI Pulmonary embolus Status post recent colectomy and colostomy Pulmonary nodule Chronic conditions: COPD with chronic hypoxic respiratory failure oxygen dependent Based on my assessment of this patient, this patient meets a high complexity level of care. Patient has an acute diagnosis of sepsis secondary to catheter related UTI that poses a threat to life or bodily function. Additionally, he has been diagnosed with pulmonary embolus likely related to mobilization. He has been started on a heparin drip. Start Rocephin 1 g IV daily and follow urine culture. Blood cultures were ordered. Telemetry monitoring ordered. Echocardiogram ordered. Pulmonology and surgery consulted for further management of this patient. Continue Eraxis from previous admission. To be completed on 09/12. Bronchodilators: DuoNeb 0.5mg-3mg/3ml scheduled and as needed for SOB and wheezing. Steroids: Prednisone 20 mg PO QD. I have reviewed the following men's custom hair piece consultant notes: Surgery note reviewed. I have reviewed the results of the following tests: CBC shows leukocytosis of 14.4 and hemoglobin of 10.6. APTT is 60.7. Influenza, RSV, COVID-19 negative. I have ordered the following tests: Echocardiogram ordered. This patient has a high risk of morbidity due to the following reasons: Patient is on a heparin drip and requires close monitoring of APTT. Objective - Vital Signs Vital signs: Vital Signs Temp 98.1 F 09/06/22 22:33 Pulse 108 H 09/07/22 13:55 Resp 18 09/07/22 13:55 BP 109/71 09/07/22 13:55 Pulse Ox 95 09/07/22 13:55 FiO2 Intake & Output 09/06/22 09/07/22 09/07/22 18:59 06:59 18:59 Weight 55.338 kg - Labs CBC & Chem 7: 09/07/22 09:45 09/06/22 19:35 Labs: Abnormal Lab Results - Last 24 Hours (Table) 09/06/22 09/06/22 09/06/22 Range/Units 19:35 19:35 19:35 WBC 16.3 H (3.8-10.6) k/uL RBC 3.81 L (4.30-5.90) m/uL Hgb 11.7 L (13.0-17.5) gm/dL Hct 38.0 L (39.0-53.0) % MCHC 30.7 L (31.0-37.0) g/dL Neutrophils # 14.3 H (1.3-7.7) k/uL APTT (22.0-30.0) sec D-Dimer 9.12 H (<0.60) mg/L FEU BUN 25 H (9-20) mg/dL Glucose 157 H (74-99) mg/dL Total Protein 6.1 L (6.3-8.2) g/dL Albumin 3.4 L (3.5-5.0) g/dL Urine Protein (Negative) Urine Blood (Negative) Ur Leukocyte Esterase (Negative) Urine RBC (0-5) /hpf Urine WBC (0-5) /hpf Urine WBC Clumps (None) /hpf Urine Mucus (None) /hpf Urine Yeast (Budding) (None) /hpf 09/06/22 09/07/22 09/07/22 Range/Units 19:50 09:45 09:45 WBC 14.4 H (3.8-10.6) k/uL RBC 3.58 L (4.30-5.90) m/uL Hgb 10.6 L (13.0-17.5) gm/dL Hct 35.3 L (39.0-53.0) % MCHC 30.1 L (31.0-37.0) g/dL Neutrophils # 12.0 H (1.3-7.7) k/uL APTT 60.7 H (22.0-30.0) sec D-Dimer (<0.60) mg/L FEU BUN (9-20) mg/dL Glucose (74-99) mg/dL Total Protein (6.3-8.2) g/dL Albumin (3.5-5.0) g/dL Urine Protein Trace H (Negative) Urine Blood Moderate H (Negative) Ur Leukocyte Esterase Large H (Negative) Urine RBC 14 H (0-5) /hpf Urine WBC 60 H (0-5) /hpf Urine WBC Clumps Rare H (None) /hpf Urine Mucus Rare H (None) /hpf Urine Yeast (Budding) Rare H (None) /hpf
[2022-09-07] MEDS: IPRATROPIUM-ALBUTEROL 3 ML NEB INHALATION SCH ×2 (16:18→19:28)
--- NOTE | 2022-09-07 16:27 | P.CNPUL ---
History of Present Illness Consult date: 09/07/22 Reason for consult: pulmonary embolism History of present illness: 72-year-old male patient, presented to the hospital because of abdominal pain and fevers and not feeling well. He felt fatigued and he was also having some shortness of breath. He had low-grade temperature of 100.8. No nausea. No emesis. His colostomy site was essentially functioning. Based on that, the patient was transferred to our hospital knowing that he had a complicated course of acute perforated sigmoid diverticulitis with abscess formation and the patient underwent a sigmoid colectomy and end colostomy on 08/02/2022. Subsequently, postop, the patient developed ileus and he had a subsequent high- grade distal small bowel obstruction with transition point identified. This was thought to be related to adhesions. NG tube was inserted at that time. Subsequ ently, he improved and his colostomy became functional and the patient was discharged to rehabilitation. He did have also issues with obstructive uropathy for which a Art catheter was inserted in the Art catheter was kept in place. During his earlier course, he developed an acute kidney injury due to obstructive uropathy, and this improved. He has advanced COPD with an FEV1 of 26% of predicted and he is oxygen and steroid dependent. He has prostate cancer as comorbid conditions. In the ED, the patient was given another CAT scan of the abdomen that showed COPD and some interstitial changes in the lung bases. There was a 9 mm right lower lobe pulmonary nodule. There was also focal t hickening of the gastric fundus consistent with gastritis and a small hiatal hernia. The left midabdominal sigmoid colostomy was seen. There was evidence of left colonic diverticulosis. No evidence of any diverticulitis. There was a Judy pouch. The bladder was collapsed and there was prostatic to megaly. The patient was also given a CTA of the chest that showed evidence of a pulmonary embolism in the right middle lobe pulmonary artery segmental branches and there was also filling defects in the lingular lobe artery and segmental right lower lobe pulmonary arteries. There was a 1 cm irregular specific another density in the right lower lobe. There was also a rounded atelectasis in the right lung base. The patient accordingly was started on IV heparin. He was also started on empiric antibiotic coverage with IV Rocephin suspecting an underlying UTI. He was also given Eraxis. His current echoes at 14.4 with a hemoglobin of 10.6 and a platelet count of 313. His d-dimer is at 9.1, normal coagulation profile, normal electrolytes, normal renal function, abnormal UA consistent with infection. Negative Covid 19 testing. He is currently on oxygen at 4 L with a pulse ox of 95%. Review of Systems Constitutional: Reports fatigue, Reports fever, Reports poor appetite, Reports weakness Eyes: denies as per HPI, denies blurred vision, denies bulging eye, denies decreased vision, denies diplopia, denies discharge, denies dry eye, denies irritation, denies itching, denies pain, denies photophobia, denies loss of peripheral vision, denies loss of vision, denies tunnel vision/blind spots Ears: deny: decreased hearing, ear discharge, earache, tinnitus Ears, nose, mouth and throat: Reports as per HPI Breasts: absent: as per HPI, gynecomastia Cardiovascular: Reports as per HPI Respiratory: Reports dyspnea, Reports home oxygen Gastrointestinal: Reports abdominal pain, Reports loss of appetite Genitourinary: Reports as per HPI Musculoskeletal: Reports as per HPI Musculoskeletal: absent: ankle pain, ankle stiffness, ankle swelling Integumentary: Reports as per HPI Neurological: Reports as per HPI, Reports weakness Psychiatric: Reports as per HPI Endocrine: Reports as per HPI, Reports fatigue Hematologic/Lymphatic: Reports as per HPI Allergic/Immunologic: Reports as per HPI Past Medical History Past Medical History: Cancer, COPD, GERD/Reflux Additional Past Medical History / Comment(s): . Perforated sigmoid diverticulitis with previous history of colectomy and diverting colostomy, COPD, history of prostate cancer, diverticulosis, chronic hypoxic respiratory failure maternal O2 at 2 L, severe COPD with FEV1 of 26% of predicted, acid reflux, small hiatal hernia History of Any Multi-Drug Resistant Organisms: None Reported Past Surgical History: Orthopedic Surgery, Tonsillectomy Additional Past Surgical History / Comment(s): Right shoulder arthroscopy. Colonoscopy. EGD Past Anesthesia/Blood Transfusion Reactions: No Reported Reaction Additional Past Anesthesia/Blood Transfusion Reaction / Comment(s): Pt has CLAUSTROPHOBIA Past Psychological History: No Psychological Hx Reported Smoking Status: Former smoker Past Alcohol Use History: None Reported Past Drug Use History: None Reported - Past Family History Father Family Medical History: Cancer Mother Family Medical History: Cancer Additional Family Medical History / Comment(s): Mother in her 50s with some form of cancer. Pt/spouse do not recall type of cancer. Medications and Allergies Home Medications Medication Instructions Recorded Confirmed Type Multivitamins, Thera [Multivitamin 1 tab PO DAILY@1200 01/22/20 09/06/22 History (formulary)] Ipratropium-Albuterol Nebulize 3 ml INHALATION RT-QID PRN 07/30/21 09/06/22 History [Duoneb 0.5 mg-3 mg/3 ml Soln] Fluticasone Propion/Salmeterol 1 puff INHALATION RT-BID@0800,209907/16/22 09/06/22 History [Wixela 250-50 Inhub] Acetaminophen Tab [Tylenol] 650 mg PO Q4HR PRN tab 08/29/22 09/06/22 Rx Ibuprofen [Motrin] 400 mg PO Q6HR PRN tab 08/29/22 09/06/22 Rx Anidulafungin [Eraxis] 100 mg IVPB DAILY@0800 09/06/22 09/06/22 History Ensure Enlive 237 ml PO DAILY@1700 09/06/22 09/06/22 History HYDROcodone/APAP 5-325MG [Mercer 1 tab PO Q4HR PRN 09/06/22 09/06/22 History 5-325] Ipratropium-Albuterol Nebulize 3 ml INHALATION RT-QID@08,12,17,09/06/22 09/06/22 History [Duoneb 0.5 mg-3 mg/3 ml Soln] Mag Hydrox/Al Hydrox/Simeth 30 ml PO Q6H PRN 09/06/22 09/06/22 History [Maalox] Magic Cup 1 can PO DAILY@1200 09/06/22 09/06/22 History Magnesium Hydroxide [Milk of 7,200 mg PO DAILY PRN 09/06/22 09/06/22 History Magnesia Concentrate] Mirtazapine 7.5 mg PO HS@209909/06/22 09/06/22 History Na Phos,M-B/Na Phos,Di-Ba [Fleet 133 ml RECTAL DAILY PRN 09/06/22 09/06/22 History Adult] Pantoprazole Sodium [Protonix] 40 mg PO DAILY@00 09/06/22 09/06/22 History Tamsulosin [Flomax] 0.4 mg PO BID@0800,1700 09/06/22 09/06/22 History bisacodyL 10 mg RECTAL DAILY PRN 09/06/22 09/06/22 History guaiFENesin [Mucinex] 600 mg PO Q12HR@0800,2100 09/06/22 09/06/22 History predniSONE [Deltasone] 20 mg PO DAILY@0800 09/06/22 09/06/22 History Allergies Allergy/AdvReac Type Severity Reaction Status Date / Time No Known Allergies Allergy Verified 09/06/22 22:01 Physical Exam Vitals: Vital Signs Temp Pulse Resp BP Pulse Ox 09/07/22 13:55 108 H 18 109/71 95 09/07/22 09:05 94 L 09/07/22 09:00 22 85 L 09/07/22 05:52 98 105/69 94 L 09/07/22 05:51 98 105/69 94 L 09/06/22 22:33 98.1 F 101 H 22 105/73 97 09/06/22 21:05 102 H 22 127/69 97 09/06/22 18:58 98.2 F 126 H 22 106/80 96 GENERAL EXAM: Alert, pleasant 72-year-old male, on 4 L nasal cannula, HEAD: Normocephalic. EYES: Normal reaction of pupils, equal size. NOSE: Nasogastric tube currently in place. Clear with pink turbinates. THROAT: No erythema or exudates. NECK: No masses, no JVD. CHEST: No chest wall deformity. LUNGS: Equal air entry with bilateral end expiratory wheeze, diminished. CVS: S1 and S2 normal with no audible murmur, regular rhythm. The patient is a component of sinus tachycardia ABDOMEN: Postsurgical changes. Ostomy intact. Functioning with adequate stool. The patient has some positive bowel sounds . The surgical one-sided dry clean and intact. Mild abdominal tenderness around the stoma. No rebound tenderness. No guarding. SPINE: No scoliosis or deformity SKIN: No rashes CENTRAL NERVOUS SYSTEM: No focal deficits, tone is normal in all 4 extremities. EXTREMITIES: There is no peripheral edema. No clubbing, no cyanosis. Peripheral pulses are intact. Results - Laboratory Findings CBC and BMP: 09/07/22 09:45 09/06/22 19:35 PT/INR, D-dimer PT 10.4 sec (9.0-12.0) 09/07/22 09:45 INR 1.0 (<1.2) 09/07/22 09:45 D-Dimer 9.12 mg/L FEU (<0.60) H 09/06/22 19:35 Abnormal lab findings: Abnormal Labs 09/06/22 09/06/22 09/06/22 19:35 19:35 19:35 WBC 16.3 H RBC 3.81 L Hgb 11.7 L Hct 38.0 L MCHC 30.7 L Neutrophils # 14.3 H APTT D-Dimer 9.12 H BUN 25 H Glucose 157 H Total Protein 6.1 L Albumin 3.4 L Urine Protein Urine Blood Ur Leukocyte Esterase Urine RBC Urine WBC Urine WBC Clumps Urine Mucus Urine Yeast (Budding) 09/06/22 09/07/22 09/07/22 19:50 09:45 09:45 WBC 14.4 H RBC 3.58 L Hgb 10.6 L Hct 35.3 L MCHC 30.1 L Neutrophils # 12.0 H APTT 60.7 H D-Dimer BUN Glucose Total Protein Albumin Urine Protein Trace H Urine Blood Moderate H Ur Leukocyte Esterase Large H Urine RBC 14 H Urine WBC 60 H Urine WBC Clumps Rare H Urine Mucus Rare H Urine Yeast (Budding) Rare H - Diagnostic Findings CT scan - chest: image reviewed Assessment and Plan Plan: Acute bilateral pulmonary embolism, currently on IV heparin. Hemodynamically stable. Acute on chronic hypoxic respiratory failure currently on 4 L of oxygen by nasal cannula, based on O2 requirements at 2 L UTI, suspected clinically. The patient has obstructive uropathy and the patient has a Art catheter in place. Art catheter placed and the patient is currently on broad-spectrum antibiotics. Sinus tachycardia secondary to above History of acute perforated diverticulitis with abscess formation, status post sigmoid colectomy and end colostomy that was done on 08/02/2022. History of high-grade distal small bowel obstruction, recovered Advanced COPD with an FEV1 of 26% of predicted maintain on oxygen and steroids Chronic hypoxic respiratory failure, maintain O2 at 2 L nasal cannula Prostate cancer Acid reflux Hiatal hernia. Sigmoid diverticulosis Leukocytosis, mild, secondary to above Plan Wean FiO2 to maintain a saturation above 90% Obtain Doppler of the lower extremities Obtain echocardiogram Surgical consultation evaluate the abdominal pain Based on my evaluation, the abdominal exam is benign Art catheter replaced Awaiting urine cultures and blood cultures Maintain prednisone and drop it down to 10 mg by mouth daily over the next 24 hours Continue antibiotic coverage with accommodation of Rocephin and Eraxis Resume all medications Admit the patient to the hospital We'll continue to follow Patient is a full CODE STATUS. Is quite debilitated because of his advanced COPD and the various comorbidities as mentioned above.
[2022-09-07] MEDS: TAMSULOSIN 0.4 MG CAP.ER.24H PO SCH (18:36)
[2022-09-07] MEDS: SYMBICORT 80-4.5 MCG INHALER INHALATION SCH (19:28)
[2022-09-07] MEDS: MIRTAZAPINE 15 MG TAB PO SCH (20:56)
[2022-09-07] MEDS: guaiFENesin 600 MG TABLET.ER PO SCH (20:56)
[2022-09-08] MEDS: PANTOPRAZOLE 40 MG TABLET PO SCH (06:37)
[2022-09-08] MEDS: HEPARIN SOD,PORK IN 0.45% NACL 25,000 UNIT in 0.45% NACL 1 250ML.BAG IV SCH (06:38)
[2022-09-08] MEDS ORDERED: ANIDULAFUNGIN 100 MG VIAL IVPB SCH (08:00)
[2022-09-08 08:32] LABS: Basophils % (A) 0 %; Eosinophils # (A) 0.2 k/uL (0-0.7); Eosinophils % (A) 2 %; HGB 9.6 gm/dL (13.0-17.5); Hypochromasia Moderate; Lymphocytes # (A) 1.4 k/uL (1.0-4.8); Lymphocytes % (A) 16 %; MCH 29.7 pg (25.0-35.0); MCHC 30.1 g/dL (31.0-37.0); MCV 98.9 fL (80.0-100.0); Macrocytosis Slight; Mean Platelet Volume 7.7; Monocytes # (A) 0.3 k/uL (0-1.0); Monocytes % (A) 4 %; Neutrophils # (A) 7.3 k/uL (1.3-7.7); Neutrophils % (A) 78 %; Platelet Count 262 k/uL (150-450); RBC 3.23 m/uL (4.30-5.90); RDW 15.1 % (11.5-15.5); WBC 9.3 k/uL (3.8-10.6)
[2022-09-08] MEDS: predniSONE 20 MG TAB PO SCH (09:07)
[2022-09-08] MEDS: TAMSULOSIN 0.4 MG CAP.ER.24H PO SCH ×2 (09:07→16:14)
[2022-09-08] MEDS: guaiFENesin 600 MG TABLET.ER PO SCH ×2 (09:07→19:53)
[2022-09-08] MEDS: SODIUM CHLORIDE 0.9% 1,000 ML IV SCH ×2 (09:09→16:54)
[2022-09-08] MEDS: HYDROcodone/APAP 5-325MG 1 EACH TAB PO PRN ×2 (09:20→21:06)
[2022-09-08] MEDS: SYMBICORT 80-4.5 MCG INHALER INHALATION SCH ×2 (09:33→21:11)
[2022-09-08] MEDS: IPRATROPIUM-ALBUTEROL 3 ML NEB INHALATION SCH ×4 (09:33→21:11)
[2022-09-08 09:47] LABS: African American GFR (CKD) 81 (>60 ml/min/1.73 sqM); Anion Gap 5 mmol/L; Blood Urea Nitrogen 22 mg/dL (9-20); Calcium 8.2 mg/dL (8.4-10.2); Carbon Dioxide 27 mmol/L (22-30); Chloride 102 mmol/L (98-107); Glucose 111 mg/dL (74-99); Non-African American GFR(CKD) 70 (>60 ml/min/1.73 sqM); Potassium 3.9 mmol/L (3.5-5.1); Sodium 134 mmol/L (137-145)
[2022-09-08] MEDS: ANIDULAFUNGIN 100 MG in SODIUM CHLORIDE 0.9% 100 ML IVPB SCH (10:11)
[2022-09-08] MEDS: DOCUSATE 100 MG CAP PO SCH ×2 (11:17→19:54)
--- NOTE | 2022-09-08 12:11 | CA ---
Transthoracic Echo Report Name: Martell Steven Age: 72 Gender: M : 1950 Exam Date: 09/07/2022 14:12 Exam Location: [facility] Ht (in): 65 Wt (lb): 122 Ordering Physician: Maribel Mcgraw MD Attending/Referring Phys: Human Resources Services Specialist Divya Ellsworth [facility] Procedure CPT: Indications: PE Cardiac Hx: Technical Quality: Technically difficult study Contrast 1: Total Dose (mL): Contrast 2: Total Dose (mL): MEASUREMENTS (Male / Female) Normal Values 2D ECHO LV Diastolic Diameter PLAX 3.8 cm 4.2 - 5.9 / 3.9 - 5.3 cm LV Systolic Diameter PLAX 2.3 cm IVS Diastolic Thickness 0.7 cm 0.6 - 1.0 / 0.6 - 0.9 cm LVPW Diastolic Thickness 0.9 cm 0.6 - 1.0 / 0.6 - 0.9 cm LV Relative Wall Thickness 0.4 RV Internal Dim ED PLAX 3.1 cm DOPPLER Mitral E Point Velocity 56.9 cm/s Mitral A Point Velocity 91.9 cm/s Mitral E to A Ratio 0.6 MV Deceleration Time 136.3 ms LV E' Lateral Velocity 10.4 cm/s Mitral E to LV E' Lateral Ratio 5.5 LV E' Septal Velocity 7.0 cm/s Mitral E to LV E' Septal Ratio 8.1 TR Peak Velocity 314.1 cm/s TR Peak Gradient 39.5 mmHg Right Atrial Pressure 3.0 mmHg Pulmonary Artery Systolic Pressu 42.5 mmHg Right Ventricular Systolic Press 42.5 mmHg FINDINGS Left Ventricle Normal Left ventricular size, wall thickness, systolic function with no obvious regional wall motion abnormalities. Left ventricular ejection fraction is estimated at 55-60%. Right Ventricle Mild right ventricular dilatation. Right ventricular global systolic function at lower limits of normal. Mild-moderate pulmonary hypertension. Right Atrium Left Atrium Mitral Valve Aortic Valve Tricuspid Valve Structurally normal tricuspid valve. Mild tricuspid regurgitation. Pulmonic Valve Structurally normal pulmonic valve. No pulmonic regurgitation. Pericardium Aorta CONCLUSIONS Technically difficult study Left ventricular ejection fraction 55-60% RVSP 42 Mild right ventricular dilation No significant mitral regurgitation Mild tricuspid regurgitation Previewed by: Dr. Daniel Fisher DO (Electronically Signed) Final Date: 08 September 2022 12:11
[2022-09-08] MEDS ORDERED: LACTULOSE 20 GM/30 ML CUP PO ONE (12:30)
--- NOTE | 2022-09-08 12:46 | P.PN ---
Subjective Progress Note Date: 09/08/22 The patient is a 72-year-old male with a PMH of COPD with chronic hypoxic respiratory failure on 3 L nasal cannula continuous oxygen, recent bout of perforated diverticulitis status post sigmoid resection and colostomy, admtited on 07/29 with a prolonged hospitalization with discharge on 08/29 presented from [facility] to the emergency room with complaints of fever and abdominal pain. In the emergency room, CT abdomen and pelvis revealed COPD with possible developing 9 mm right lower lobe nodule requiring follow-up, with Art catheter noted. Chest x-ray was unremarkable. Laboratory evaluation was remarkable for leukocytosis of 16.3, hemoglobin 11.7, d-dimer 9.12, BUN 25, creatinine 1.01, glucose 157, with UA consistent with UTI. The patient was noted to be febrile at [facility] 100.8 and was given Tylenol. Chest CTA consistent with bilateral pulmonary embolism. Patient was started on heparin infusion. 09/08 Patient was seen and examined. He is currently on 3L NC. He reports shortness of breath but improved since admission. He denies any chest pain. He reports some suprapubic tenderness. Art catheter removed and patient voiding freely. He is tachycardic in the low 100s.CBC shows Hg of 9.6. BMP shows Na 134, BUN 22, glucose of 111 and Ca 8.2. Echocardiogram shows EF 55-60%. General: non toxic, no distress, appears at stated age Derm: warm, dry Head: atraumatic, normocephalic, symmetric Eyes: EOMI, no lid lag, anicteric sclera Mouth: no lip lesion, mucus membranes moist Cardiovascular: Tachycardic, no murmur Lungs: Coarse breath sounds bilateral, no rhonchi, no rales , no accessory muscle use Abdominal: soft, suprapubic tenderness, no guarding, no appreciable organomegaly, midline surgical scar intact with colostomy Ext: no gross muscle atrophy, no edema, no contractures Neuro: no focal neuro deficits Psych: Alert, oriented, appropriate affect Sepsis secondary to CAUTI Pulmonary embolus Status post recent colectomy and colostomy Pulmonary nodule Chronic conditions: COPD with chronic hypoxic respiratory failure oxygen dependent Based on my assessment of this patient, this patient meets a high complexity level of care. Patient has an acute diagnosis of sepsis secondary to catheter related UTI that poses a threat to life or bodily function. Additionally, he has been diagnosed with pulmonary embolus likely related to immobilization. Heparin drip discontinued and patient started on Eliquis. Continue Rocephin 1 g IV daily and follow urine culture. Blood cultures pending. Telemetry monitoring ordered. Pulmonology and surgery consulted for further management of this patient. Continue Eraxis from previous admission. To be completed on 09/12. Bronchodilators: DuoNeb 0.5mg-3mg/3ml scheduled and as needed for SOB and wheezing. Steroids: Prednisone 20 mg PO QD. I have reviewed the following consultants intern notes: I have reviewed the results of the following tests: CBC, BMP, Echocardiogram as above. I have ordered the following tests: The case was discussed with Dr. Robbins, plans to discontinue heparin drip and start Eliquis. Objective - Vital Signs Vital signs: Vital Signs Temp 97.8 F 09/07/22 20:00 Pulse 112 H 09/08/22 12:36 Resp 18 09/08/22 08:00 BP 123/61 09/08/22 08:00 Pulse Ox 95 09/08/22 08:00 FiO2 Intake & Output 09/07/22 09/08/22 09/08/22 18:59 06:59 18:59 Intake Total 118 240 Output Total 1000 325 Balance 118 -1000 -85 Weight 55.338 kg Intake: Oral 118 240 Output: Urine 1000 325 - Labs CBC & Chem 7: 09/08/22 08:06 09/08/22 08:06 Labs: Abnormal Lab Results - Last 24 Hours (Table) 09/07/22 09/08/22 09/08/22 Range/Units 16:38 08:06 08:06 RBC 3.23 L (4.30-5.90) m/uL Hgb 9.6 L (13.0-17.5) gm/dL Hct 32.0 L (39.0-53.0) % MCHC 30.1 L (31.0-37.0) g/dL APTT 42.2 H (22.0-30.0) sec Sodium 134 L (137-145) mmol/L BUN 22 H (9-20) mg/dL Glucose 111 H (74-99) mg/dL Calcium 8.2 L (8.4-10.2) mg/dL Microbiology - Last 24 Hours (Table) 09/06/22 19:38 Blood Culture - Preliminary Blood
--- NOTE | 2022-09-08 13:09 | P.PN ---
Subjective Progress Note Date: 09/08/22 CHIEF COMPLAINT: UTI and PE HISTORY OF PRESENT ILLNESS: Patient with evidence of UTI. He is on antibiotics. And evidence of a new PE on IV heparin. Overall he reports feeling better. He does report occasionally he'll have sharp pains that move across the abdomen. Denies any nausea or vomiting. Ostomy with decreased output. The stool present in the bag still from yesterday. Afebrile. Slightly tachycardic. WBC has normalized from 14.4 to 9.3 hgb 9.6 na 134 potassium 3.9 creatinine 1.06. Art catheter discontinued yesterday. Patient reports improvement in discomfort from Art catheter irritation PHYSICAL EXAM: VITAL SIGNS: Reviewed. GENERAL: Well-developed in no acute distress. HEENT: No sclera icterus. Extraocular movements grossly intact. Moist buccal mucosa. Head is atraumatic, normocephalic. ABDOMEN: Soft. Nondistended. Nontender. Incision site clean dry and intact. Old stool present in ostomy bag NEUROLOGIC: Alert and oriented. Cranial nerves II through XII grossly intact. ASSESSMENT: 1. UTI and fever 2. Abdominal pain. No evidence of sepsis in abdomen 3. PE 4. Recent Judy procedure with sigmoid resection with end colostomy for perforated diverticulitis on 08/02/2022 5. Constipation. On computed tomography scan with evidence of stool burden PLAN: -1 dose of lactulose and Colace added for constipation -Continue antibiotics for UTI -Continue supportive care -Encouraged patient to increase activity level -Notified nursing staff that talya can be removed from the abdominal incision Physician Security Strategist note has been reviewed by physician. Signing provider agrees with the documented findings, assessment, and plan of care. Objective - Vital Signs Vital signs: Vital Signs Temp 97.8 F 09/07/22 20:00 Pulse 112 H 09/08/22 12:49 Resp 18 09/08/22 08:00 BP 123/61 09/08/22 08:00 Pulse Ox 95 09/08/22 08:00 FiO2 Intake & Output 09/07/22 09/08/22 09/08/22 18:59 06:59 18:59 Intake Total 118 240 Output Total 1000 325 Balance 118 -1000 -85 Weight 55.338 kg Intake: Oral 118 240 Output: Urine 1000 325 - Labs CBC & Chem 7: 09/08/22 08:06 09/08/22 08:06 Labs: Abnormal Lab Results - Last 24 Hours (Table) 09/07/22 09/08/22 09/08/22 Range/Units 16:38 08:06 08:06 RBC 3.23 L (4.30-5.90) m/uL Hgb 9.6 L (13.0-17.5) gm/dL Hct 32.0 L (39.0-53.0) % MCHC 30.1 L (31.0-37.0) g/dL APTT 42.2 H (22.0-30.0) sec Sodium 134 L (137-145) mmol/L BUN 22 H (9-20) mg/dL Glucose 111 H (74-99) mg/dL Calcium 8.2 L (8.4-10.2) mg/dL Microbiology - Last 24 Hours (Table) 09/06/22 19:35 Blood Culture - Preliminary Blood 09/06/22 19:38 Blood Culture - Preliminary Blood
--- NOTE | 2022-09-08 15:54 | P.PN ---
Subjective Progress Note Date: 09/08/22 72-year-old male patient, presented to the hospital because of abdominal pain and fevers and not feeling well. He felt fatigued and he was also having some shortness of breath. He had low-grade temperature of 100.8. No nausea. No emesis. His colostomy site was essentially functioning. Based on that, the patient was transferred to our hospital knowing that he had a complicated course of acute perforated sigmoid diverticulitis with abscess formation and the patient underwent a sigmoid colectomy and end colostomy on 08/02/2022. Subsequently, postop, the patient developed ileus and he had a subsequent high- grade distal small bowel obstruction with transition point identified. This was thought to be related to adhesions. NG tube was inserted at that time. Subsequently, he improved and his colostomy became functional and the patient was discharged to rehabilitation. He did have also issues with obstructive uropathy for which a Art catheter was inserted in the Art catheter was kept in place. During his earlier course, he developed an acute kidney injury due to obstructive uropathy, and this improved. He has advanced COPD with an FEV1 of 26% of predicted and he is oxygen and steroid dependent. He has prostate cancer as comorbid conditions. In the ED, the patient was given another CAT scan of the abdomen that showed COPD and some interstitial changes in the lung bases. There was a 9 mm right lower lobe pulmonary nodule. There was also focal thickening of the gastric fundus consistent with gastritis and a small hiatal hernia. The left midabdominal sigmoid colostomy was seen. There was evidence of left colonic diverticulosis. No evidence of any diverticulitis. There was a Judy pouch. The bladder was collapsed and there was prostatic to megaly. The patient was also given a CTA of the chest that showed evidence of a pulmonary embolism in the right middle lobe pulmonary artery segmental branches and there was also filling defects in the lingular lobe artery and segmental right lower lobe pulmonary arteries. There was a 1 cm irregular specific another density in the right lower lobe. There was also a rounded atelectasis in the right lung base. The patient accordingly was started on IV heparin. He was also started on empiric antibiotic coverage with IV Rocephin suspecting an underlying UTI. He was also given Eraxis. His current echoes at 14.4 with a hemoglobin of 10.6 and a platelet count of 313. His d-dimer is at 9.1, normal coagulation profile, normal electrolytes, normal renal function, abnormal UA consistent with infection. Negative Covid 19 testing. He is currently on oxygen at 4 L with a pulse ox of 95%. On today's evaluation of 09/08/2022, the patient has no new complaints. The patient is on 3 L of oxygen by nasal cannula. He does have some residual suprapubic tenderness. Art catheter has been removed and the patient is voiding freely. No nausea. No vomiting. No pain. No chest pain. Colostomy is functional. There was another 9.3 with a hemoglobin of 9.6 and a platelet count of 262. BUN is at 22 with a creatinine of 1.06 and a sodium level is 134. The urine culture was positive for gram-negative bacillus and the patient is currently on Rocephin. Infectious disease also elevated at excess as the patient had a catheter that grew Melissa. This was identified during his earlier admission. The patient is hemodynamically stable. No signs of any respiratory distress at this point in time. Objective - Vital Signs Vital signs: Vital Signs Temp 97.8 F 09/07/22 20:00 Pulse 108 H 09/08/22 09:48 Resp 18 09/08/22 08:00 BP 123/61 09/08/22 08:00 Pulse Ox 95 09/08/22 08:00 FiO2 Intake & Output 09/07/22 09/08/22 09/08/22 18:59 06:59 18:59 Intake Total 118 240 Output Total 1000 125 Balance 118 -1000 115 Weight 55.338 kg Intake: Oral 118 240 Output: Urine 1000 125 - Exam GENERAL EXAM: Alert, pleasant 72-year-old male, on 4 L nasal cannula, HEAD: Normocephalic. EYES: Normal reaction of pupils, equal size. NOSE: Nasogastric tube currently in place. Clear with pink turbinates. THROAT: No erythema or exudates. NECK: No masses, no JVD. CHEST: No chest wall deformity. LUNGS: Equal air entry with bilateral end expiratory wheeze, diminished. CVS: S1 and S2 normal with no audible murmur, regular rhythm. The patient is a component of sinus tachycardia ABDOMEN: Postsurgical changes. Ostomy intact. Functioning with adequate stool. The patient has some positive bowel sounds . The surgical one-sided dry clean and intact. Mild abdominal tenderness around the stoma. No rebound tenderness. No guarding. SPINE: No scoliosis or deformity SKIN: No rashes CENTRAL NERVOUS SYSTEM: No focal deficits, tone is normal in all 4 extremities. EXTREMITIES: There is no peripheral edema. No clubbing, no cyanosis. Peripheral pulses are intact. - Labs CBC & Chem 7: 09/08/22 08:06 09/08/22 08:06 Labs: Abnormal Lab Results - Last 24 Hours (Table) 09/07/22 09/07/22 09/07/22 Range/Units 09:45 09:45 16:38 WBC 14.4 H (3.8-10.6) k/uL RBC 3.58 L (4.30-5.90) m/uL Hgb 10.6 L (13.0-17.5) gm/dL Hct 35.3 L (39.0-53.0) % MCHC 30.1 L (31.0-37.0) g/dL Neutrophils # 12.0 H (1.3-7.7) k/uL APTT 60.7 H 42.2 H (22.0-30.0) sec Sodium (137-145) mmol/L BUN (9-20) mg/dL Glucose (74-99) mg/dL Calcium (8.4-10.2) mg/dL 09/08/22 09/08/22 Range/Units 08:06 08:06 WBC (3.8-10.6) k/uL RBC 3.23 L (4.30-5.90) m/uL Hgb 9.6 L (13.0-17.5) gm/dL Hct 32.0 L (39.0-53.0) % MCHC 30.1 L (31.0-37.0) g/dL Neutrophils # (1.3-7.7) k/uL APTT (22.0-30.0) sec Sodium 134 L (137-145) mmol/L BUN 22 H (9-20) mg/dL Glucose 111 H (74-99) mg/dL Calcium 8.2 L (8.4-10.2) mg/dL Microbiology - Last 24 Hours (Table) 09/06/22 19:38 Blood Culture - Preliminary Blood Assessment and Plan Plan: Acute bilateral pulmonary embolism, currently on IV heparin. Hemodynamically stable. The patient has an echocardiogram that showed mild RV dilatation. Pulmonary artery pressure was 42. Left ejection fraction was within normal limits and the patient is currently on anticoagulation with Eliquis and IV heparin is discontinued. Acute on chronic hypoxic respiratory failure currently on 4 L of oxygen by nasal cannula, based on O2 requirements at 2 L UTI, with E. coli bacteria and a Art catheter was removed and the patient is currently on IV Rocephin Sinus tachycardia secondary to above History of acute perforated diverticulitis with abscess formation, status post sigmoid colectomy and end colostomy that was done on 08/02/2022. History of high-grade distal small bowel obstruction, recovered Advanced COPD with an FEV1 of 26% of predicted maintain on oxygen and steroids Chronic hypoxic respiratory failure, maintain O2 at 2 L nasal cannula Prostate cancer Acid reflux Hiatal hernia. Sigmoid diverticulosis Leukocytosis, mild, secondary to above Plan Patient was started on anticoagulation with Eliquis 10 mg by mouth twice a day. Wean FiO2 to maintain a saturation above 90% Obtain Doppler of the lower extremities, the order Obtain echocardiogram, no evidence of any significant pulmonary hypertension Continue IV Rocephin for UTI Art cath is removed Continue antibiotic coverage with accommodation of Rocephin and Eraxis Resume all medications We'll continue to follow Patient is a full CODE STATUS. Is quite debilitated because of his advanced COPD and the various comorbidities as mentioned above.
[2022-09-08] MEDS: Apixaban Initiation Dose--VTE 5 MG TAB PO SCH ×2 (16:53→19:57)
--- NOTE | 2022-09-08 17:00 | US ---
EXAMINATION TYPE: US venous doppler duplex LE DATE OF EXAM: 09/08/2022 4:44 PM COMPARISON: NONE CLINICAL INDICATION: Male, 72 years old with history of PE; PE SIDE PERFORMED: Bilateral TECHNIQUE: The lower extremity deep venous system is examined utilizing real time linear array sonog olivier with graded compression, doppler sonography and color-flow sonography. VESSELS IMAGED: Common Femoral Vein Deep Femoral Vein Greater Saphenous Vein * Femoral Vein Popliteal Vein Small Saphenous Vein * Proximal Calf Veins (* superficial vessels) DESCRIPTION: Grayscale, color doppler, spectral doppler imaging performed of the deep veins of the lo wer extremities. There is normal flow, compressibility, vascular waveforms. IMPRESSION: NEGATIVE FOR DVT, BILATERAL LOWER EXTREMITIES.
[2022-09-08] MEDS: MIRTAZAPINE 15 MG TAB PO SCH (19:53)
[2022-09-09] MEDS: SODIUM CHLORIDE 0.9% 1,000 ML IV SCH ×2 (05:20→17:09)
[2022-09-09] MEDS: PANTOPRAZOLE 40 MG TABLET PO SCH (06:10)
[2022-09-09] MEDS: predniSONE 20 MG TAB PO SCH (08:30)
[2022-09-09] MEDS: guaiFENesin 600 MG TABLET.ER PO SCH ×2 (08:30→19:57)
[2022-09-09] MEDS: Apixaban Initiation Dose--VTE 5 MG TAB PO SCH ×2 (08:30→19:59)
[2022-09-09] MEDS: TAMSULOSIN 0.4 MG CAP.ER.24H PO SCH ×2 (08:30→17:08)
[2022-09-09] MEDS: ANIDULAFUNGIN 100 MG in SODIUM CHLORIDE 0.9% 100 ML IVPB SCH (08:31)
[2022-09-09] MEDS: DOCUSATE 100 MG CAP PO SCH ×2 (08:32→21:47)
[2022-09-09] MEDS: IPRATROPIUM-ALBUTEROL 3 ML NEB INHALATION SCH ×4 (09:03→21:19)
[2022-09-09] MEDS: SYMBICORT 80-4.5 MCG INHALER INHALATION SCH ×2 (09:03→21:19)
[2022-09-09] MEDS: HYDROcodone/APAP 5-325MG 1 EACH TAB PO PRN ×2 (09:19→20:03)
--- NOTE | 2022-09-09 11:40 | P.PN ---
Subjective Progress Note Date: 09/09/22 CHIEF COMPLAINT: UTI and PE HISTORY OF PRESENT ILLNESS: Patient with evidence of UTI. He is on antibiotics. And evidence of a new PE on Eliquis. Patient reports that he is feeling much better. He did have good output through the ostomy after the lactulose. Abdominal pain has improved. Denies any nausea or vomiting. Tolerating regular diet. I urinating without difficulty. Afebrile. Tachycardia resolved. Hemoglobin 9.3 as of yesterday Patient seen and examined with Dr. Moyer PHYSICAL EXAM: VITAL SIGNS: Reviewed. GENERAL: Well-developed in no acute distress. HEENT: No sclera icterus. Extraocular movements grossly intact. Moist buccal mucosa. Head is atraumatic, normocephalic. ABDOMEN: Soft. Nondistended. Nontender. Incision site clean dry and intact. Ostomy with stool NEUROLOGIC: Alert and oriented. Cranial nerves II through XII grossly intact. ASSESSMENT: 1. UTI and fever improving 2. Abdominal pain. No evidence of sepsis in abdomen 3. PE 4. Recent Judy procedure with sigmoid resection with end colostomy for perforated diverticulitis on 08/02/2022 5. Constipation. On computed tomography scan with evidence of stool burden PLAN: -No surgical intervention planned -Continue stool softener -Continue antibiotics for UTI -Patient can be discharged from surgical standpoint when medically stable Physician Lead Shop Operator note has been reviewed by physician. Signing provider agrees with the documented findings, assessment, and plan of care. Objective - Vital Signs Vital signs: Vital Signs Temp 97.6 F 09/09/22 00:00 Pulse 91 09/09/22 04:00 Resp 18 09/09/22 04:00 BP 126/61 09/09/22 04:00 Pulse Ox 96 09/09/22 04:00 FiO2 Intake & Output 09/08/22 09/09/22 09/09/22 18:59 06:59 18:59 Intake Total 960 Output Total 575 500 Balance 385 -500 Intake: Oral 960 Output: Urine 525 500 Stool 50 Other: Voiding Method Urinal - Labs CBC & Chem 7: 09/08/22 08:06 09/08/22 08:06 Labs: Abnormal Lab Results - Last 24 Hours (Table) 09/08/22 Range/Units 08:06 Sodium 134 L (137-145) mmol/L BUN 22 H (9-20) mg/dL Glucose 111 H (74-99) mg/dL Calcium 8.2 L (8.4-10.2) mg/dL Microbiology - Last 24 Hours (Table) 09/06/22 19:38 Blood Culture - Preliminary Blood 09/06/22 19:50 Urine Culture - Preliminary Urine,Clean Catch Gram Neg Bacilli 09/06/22 19:35 Blood Culture - Preliminary Blood
--- NOTE | 2022-09-09 13:08 | P.PN ---
Subjective Progress Note Date: 09/09/22 The patient is a 72-year-old male with a PMH of COPD with chronic hypoxic respiratory failure on 3 L nasal cannula continuous oxygen, recent bout of perforated diverticulitis status post sigmoid resection and colostomy, admtited on 07/29 with a prolonged hospitalization with discharge on 08/29 presented from [facility] to the emergency room with complaints of fever and abdominal pain. In the emergency room, CT abdomen and pelvis revealed COPD with possible developing 9 mm right lower lobe nodule requiring follow-up, with Art catheter noted. Chest x-ray was unremarkable. Laboratory evaluation was remarkable for leukocytosis of 16.3, hemoglobin 11.7, d-dimer 9.12, BUN 25, creatinine 1.01, glucose 157, with UA consistent with UTI. The patient was noted to be febrile at [facility] 100.8 and was given Tylenol. Chest CTA consistent with bilateral pulmonary embolism. Patient was started on heparin infusion. 09/08 Patient was seen and examined. He is currently on 3L NC. He reports shortness of breath but improved since admission. He denies any chest pain. He reports some suprapubic tenderness. Art catheter removed and patient voiding freely. He is tachycardic in the low 100s.CBC shows Hg of 9.6. BMP shows Na 134, BUN 22, glucose of 111 and Ca 8.2. Echocardiogram shows EF 55-60%. 09/09 Patient was seen and examined. Working with PT. Reports some lightheadedness when standing up. Urine culture shows gram-negative bacilli. Venous Doppler negative for DVT. Echocardiogram shows EF of 55-60%. General: non toxic, no distress, appears at stated age Derm: warm, dry Head: atraumatic, normocephalic, symmetric Eyes: EOMI, no lid lag, anicteric sclera Mouth: no lip lesion, mucus membranes moist Cardiovascular: Tachycardic, no murmur Lungs: Coarse breath sounds bilateral, no rhonchi, no rales , no accessory muscle use Abdominal: soft, suprapubic tenderness, no guarding, no appreciable orga nomegaly, midline surgical scar intact with colostomy Ext: no gross muscle atrophy, no edema, no contractures Neuro: no focal neuro deficits Psych: Alert, oriented, appropriate affect Sepsis secondary to CAUTI Pulmonary embolus Status post recent colectomy and colostomy Pulmonary nodule Chronic conditions: COPD with chronic hypoxic respiratory failure oxygen dependent Based on my assessment of this patient, this patient meets a moderate complexity level of care. Patient has an acute diagnosis of sepsis secondary to catheter related UTI that poses a threat to life or bodily function. Additionally, he has been diagnosed with pulmonary embolus likely related to immobilization. Heparin drip discontinued and patient started on Eliquis. Continue Rocephin 1 g IV daily and follow urine culture. Blood cultures prelim negative. Urine culture shows gram-negative bacilli. Telemetry monitoring ordered. Pulmonology and surgery consulted for further management of this patient. Continue Eraxis from previous admission. To be completed on 09/12. Bronchodilators: DuoNeb 0.5mg-3mg/3ml scheduled and as needed for SOB and wheezing. Steroids: Prednisone 20 mg PO QD. I have reviewed the following recruitment consultant notes: Surgery note reviewed, cleared for discharge. I have reviewed the results of the following tests: Venous Doppler. Echocardiogram. I have ordered the following tests: Awaiting urine culture prior to discharge. Anticipated discharge in 1-2 days. Objective - Vital Signs Vital signs: Vital Signs Temp 97.7 F 09/09/22 07:45 Pulse 90 09/09/22 12:30 Resp 18 09/09/22 07:45 BP 114/67 09/09/22 07:45 Pulse Ox 96 09/09/22 09:03 FiO2 Intake & Output 09/08/22 09/09/22 09/09/22 18:59 06:59 18:59 Intake Total 960 Output Total 575 500 350 Balance 385 -500 -350 Intake: Oral 960 Output: Urine 525 500 200 Stool 50 150 Other: Voiding Method Urinal - Labs CBC & Chem 7: 09/08/22 08:06 09/08/22 08:06 Labs: Microbiology - Last 24 Hours (Table) 09/06/22 19:35 Blood Culture - Preliminary Blood 09/06/22 19:38 Blood Culture - Preliminary Blood 09/06/22 19:50 Urine Culture - Preliminary Urine,Clean Catch Gram Neg Bacilli
--- NOTE | 2022-09-09 14:38 | P.PN ---
Subjective Progress Note Date: 09/09/22 72-year-old male patient, presented to the hospital because of abdominal pain and fevers and not feeling well. He felt fatigued and he was also having some shortness of breath. He had low-grade temperature of 100.8. No nausea. No emesis. His colostomy site was essentially functioning. Based on that, the patient was transferred to our hospital knowing that he had a complicated course of acute perforated sigmoid diverticulitis with abscess formation and the patient underwent a sigmoid colectomy and end colostomy on 08/02/2022. Subsequently, postop, the patient developed ileus and he had a subsequent high- grade distal small bowel obstruction with transition point identified. This was thought to be related to adhesions. NG tube was inserted at that time. Subsequently, he improved and his colostomy became functional and the patient was discharged to rehabilitation. He did have also issues with obstructive uropathy for which a Rat catheter was inserted in the Art catheter was kept in place. During his earlier course, he developed an acute kidney injury due to obstructive uropathy, and this improved. He has advanced COPD with an FEV1 of 26% of predicted and he is oxygen and steroid dependent. He has prostate cancer as comorbid conditions. In the ED, the patient was given another CAT scan of the abdomen that showed COPD and some interstitial changes in the lung bases. There was a 9 mm right lower lobe pulmonary nodule. There was also focal thickening of the gastric fundus consistent with gastritis and a small hiatal hernia. The left midabdominal sigmoid colostomy was seen. There was evidence of left colonic diverticulosis. No evidence of any diverticulitis. There was a Judy pouch. The bladder was collapsed and there was prostatic to megaly. The patient was also given a CTA of the chest that showed evidence of a pulmonary embolism in the right middle lobe pulmonary artery segmental branches and there was also filling defects in the lingular lobe artery and segmental right lower lobe pulmonary arteries. There was a 1 cm irregular specific another density in the right lower lobe. There was also a rounded atelectasis in the right lung base. The patient accordingly was started on IV heparin. He was also started on empiric antibiotic coverage with IV Rocephin suspecting an underlying UTI. He was also given Eraxis. His current echoes at 14.4 with a hemoglobin of 10.6 and a platelet count of 313. His d-dimer is at 9.1, normal coagulation profile, normal electrolytes, normal renal function, abnormal UA consistent with infection. Negative Covid 19 testing. He is currently on oxygen at 4 L with a pulse ox of 95%. On today's evaluation of 09/08/2022, the patient has no new complaints. The patient is on 3 L of oxygen by nasal cannula. He does have some residual suprapubic tenderness. Art catheter has been removed and the patient is voiding freely. No nausea. No vomiting. No pain. No chest pain. Colostomy is functional. There was another 9.3 with a hemoglobin of 9.6 and a platelet count of 262. BUN is at 22 with a creatinine of 1.06 and a sodium level is 134. The urine culture was positive for gram-negative bacillus and the patient is currently on Rocephin. Infectious disease also elevated at excess as the patient had a catheter that grew Melissa. This was identified during his earlier admission. The patient is hemodynamically stable. No signs of any respiratory distress at this point in time. On 09/06/2022, the patient is no fever. White cell count is improving. Art cath has been removed. Colostomy is functional. No signs of any respiratory distress. Remains on IV Rocephin. Urine cultures positive for gram-negative bacillus. The patient remains on anticoagulation regarding his pulmonary embolism and the patient is currently taking 10 mg of Eliquis twice a day. Doppler of the lower extremity was also negative for DVTs bilaterally. The white cell count is at 9.3 with a hemoglobin of 9.6 and a platelet count of 262. BUN is 22 with a creatinine of 1.06. Objective - Vital Signs Vital signs: Vital Signs Temp 97.7 F 09/09/22 07:45 Pulse 94 09/09/22 09:17 Resp 18 09/09/22 07:45 BP 114/67 09/09/22 07:45 Pulse Ox 96 09/09/22 09:03 FiO2 Intake & Output 09/08/22 09/09/22 09/09/22 18:59 06:59 18:59 Intake Total 960 Output Total 575 500 350 Balance 385 -500 -350 Intake: Oral 960 Output: Urine 525 500 200 Stool 50 150 Other: Voiding Method Urinal - Exam GENERAL EXAM: Alert, pleasant 72-year-old male, on 4 L nasal cannula, HEAD: Normocephalic. EYES: Normal reaction of pupils, equal size. NOSE: Nasogastric tube currently in place. Clear with pink turbinates. THROAT: No erythema or exudates. NECK: No masses, no JVD. CHEST: No chest wall deformity. LUNGS: Equal air entry with bilateral end expiratory wheeze, diminished. CVS: S1 and S2 normal with no audible murmur, regular rhythm. The patient is a component of sinus tachycardia ABDOMEN: Postsurgical changes. Ostomy intact. Functioning with adequate stool. The patient has some positive bowel sounds . The surgical one-sided dry clean and intact. Mild abdominal tenderness around the stoma. No rebound tenderness. No guarding. SPINE: No scoliosis or deformity SKIN: No rashes CENTRAL NERVOUS SYSTEM: No focal deficits, tone is normal in all 4 extremities. EXTREMITIES: There is no peripheral edema. No clubbing, no cyanosis. P eripheral pulses are intact. - Labs CBC & Chem 7: 09/08/22 08:06 09/08/22 08:06 Labs: Microbiology - Last 24 Hours (Table) 09/06/22 19:38 Blood Culture - Preliminary Blood 09/06/22 19:50 Urine Culture - Preliminary Urine,Clean Catch Gram Neg Bacilli 09/06/22 19:35 Blood Culture - Preliminary Blood Assessment and Plan Plan: Acute bilateral pulmonary embolism, Doppler of the lower extremity is negative and the patient is currently on anticoagulation with Eliquis Acute on chronic hypoxic respiratory failure currently on 4 L of oxygen by nasal cannula, based on O2 requirements at 2 L UTI, , Art cath is minimal and the patient is currently on IV Rocephin Sinus tachycardia secondary to above, improved History of acute perforated diverticulitis with abscess formation, status post sigmoid colectomy and end colostomy that was done on 08/02/2022. History of high-grade distal small bowel obstruction, recovered Advanced COPD with an FEV1 of 26% of predicted maintain on oxygen and steroids Chronic hypoxic respiratory failure, maintain O2 at 2 L nasal cannula Prostate cancer Acid reflux Hiatal hernia. Sigmoid diverticulosis Leukocytosis, mild, secondary to above Plan Continue Eliquis 10 mg by mouth twice a day. Wean FiO2 to maintain a saturation above 90% Obtain Doppler of the lower extremities was completed and the results were negative for DVT Echocardiogram, no evidence of any significant pulmonary hypertension Continue IV Rocephin for UTI Art cath is removed Continue antibiotic coverage with accommodation of Rocephin and Eraxis Resume all medications We'll continue to follow Patient is a full CODE STATUS. Is quite debilitated because of his advanced COPD and the various comorbidities as mentioned above.
[2022-09-09] MEDS: MIRTAZAPINE 15 MG TAB PO SCH (19:57)
[2022-09-10] MEDS: SODIUM CHLORIDE 0.9% 1,000 ML IV SCH (02:53)
[2022-09-10] MEDS: PANTOPRAZOLE 40 MG TABLET PO SCH (05:04)
[2022-09-10] MEDS: IPRATROPIUM-ALBUTEROL 3 ML NEB INHALATION SCH ×2 (07:59→11:17)
[2022-09-10] MEDS: SYMBICORT 80-4.5 MCG INHALER INHALATION SCH (07:59)
[2022-09-10] MEDS: guaiFENesin 600 MG TABLET.ER PO SCH (08:45)
[2022-09-10] MEDS: TAMSULOSIN 0.4 MG CAP.ER.24H PO SCH (08:45)
[2022-09-10] MEDS: predniSONE 20 MG TAB PO SCH (08:45)
[2022-09-10] MEDS: DOCUSATE 100 MG CAP PO SCH (08:45)
[2022-09-10] MEDS: ANIDULAFUNGIN 100 MG in SODIUM CHLORIDE 0.9% 100 ML IVPB SCH (08:46)
[2022-09-10] MEDS: Apixaban Initiation Dose--VTE 5 MG TAB PO SCH (08:51)
[2022-09-10] MEDS: HYDROcodone/APAP 5-325MG 1 EACH TAB PO PRN (08:51)
[2022-09-10 08:59] VITALS: BP 136/65; RESP 20; TEMP 97.8
[2022-09-10 11:18] VITALS: PULSE 96
--- NOTE | 2022-09-10 13:05 | P.DS ---
Providers Date of admission: 09/06/22 22:16 Expected date of discharge: 09/10/22 Attending physician: Jose Alford MD Consults: 09/07/22 08:30 Consult Physician Routine Consulting Provider: Reynold Moyer Consult Reason/Comments: recent colectomy Do you want consulting provider notified?: Yes 09/07/22 11:52 Consult Physician Routine Consulting Provider: Carrie Faulkner Consult Reason/Comments: PE Do you want consulting provider notified?: Yes Primary care physician: [facility] Course: The patient is a 72-year-old male with a PMH of COPD with chronic hypoxic respiratory failure on 3 L nasal cannula continuous oxygen, recent bout of perforated diverticulitis status post sigmoid resection and colostomy, admtited on 07/29 with a prolonged hospitalization with discharge on 08/29 presented from [facility] to the emergency room with complaints of fever and abdominal pain. In the emergency room, CT abdomen and pelvis revealed COPD with possible developing 9 mm right lower lobe nodule requiring follow-up, with Art catheter noted. Chest x-ray was unremarkable. Laboratory evaluation was remarkable for leukocytosis of 16.3, hemoglobin 11.7, d-dimer 9.12, BUN 25, creatinine 1.01, glucose 157, with UA consistent with UTI. The patient was noted to be febrile at [facility] 100.8 and was given Tylenol. Chest CTA consistent with bilateral pulmonary embolism. Patient was started on heparin infusion. 09/08 Patient was seen and examined. He is currently on 3L NC. He reports shortness of breath but improved since admission. He denies any chest pain. He reports some suprapubic tenderness. Art catheter removed and patient voiding freely. He is tachycardic in the low 100s.CBC shows Hg of 9.6. BMP shows Na 134, BUN 22, glucose of 111 and Ca 8.2. Echocardiogram shows EF 55-60%. 09/09 Patient was seen and examined. Working with PT. Reports some lightheadedness when standing up. Urine culture shows gram-negative bacilli. Venous Doppler negative for DVT. Patient was transitioned to Eliquis. Urine culture came back positive for Pseudomonas. He was advised another 6 days of ciprofloxacin to complete a total of 10 days of antibiotics. Case was discussed with Dr. Lebron recommended no more antifungal agent and discontinuing midline. He was able to work with PT and OT and patient elected to go home. Patient was seen and examined. No acute events overnight. Patient denies any chest pain, shortness breath or palpitations. No nausea or vomiting. No fever or chills. Looking forward to going home. Pertinent studies include CTAP, chest CTA, echocardiogram, venous Doppler. General: non toxic, no distress, appears at stated age Derm: warm, dry Head: atraumatic, normocephalic, symmetric Eyes: EOMI, no lid lag, anicteric sclera Mouth: no lip lesion, mucus membranes moist Cardiovascular: Tachycardic, no murmur Lungs: Coarse breath sounds bilateral, no rhonchi, no rales , no accessory muscle use Abdominal: soft, suprapubic tenderness, no guarding, no appreciable organomegaly, midline surgical scar intact with colostomy Ext: no gross muscle atrophy, no edema, no contractures Neuro: no focal neuro deficits Psych: Alert, oriented, appropriate affect Discharge diagnosis: Sepsis secondary to CAUTI Pulmonary embolus Status post recent colectomy and colostomy Pulmonary nodule Chronic conditions: COPD with chronic hypoxic respiratory failure oxygen dependent This complex discharge took 35 minutes to complete. Patient Condition at Discharge: Fair Plan - Discharge Summary Discharge Rx Participant: No New Discharge Prescriptions: New Ciprofloxacin HCl [Cipro] 500 mg PO BID #12 tab Apixaban [Eliquis Starter Pack (for VTE)] 5 - 10 mg PO DIRECTED 30 Days #1 each Continue Multivitamins, Thera [Multivitamin (formulary)] 1 tab PO DAILY@1200 Ipratropium-Albuterol Nebulize [Duoneb 0.5 mg-3 mg/3 ml Soln] 3 ml INHALATION RT-QID PRN PRN Reason: Shortness Of Breath Ibuprofen [Motrin] 400 mg PO Q6HR PRN tab PRN Reason: Fever Ensure Enlive 237 ml PO DAILY@1700 bisacodyL 10 mg RECTAL DAILY PRN PRN Reason: Constipation Magic Cup 1 can PO DAILY@1200 Na Phos,M-B/Na Phos,Di-Ba [Fleet Adult] 133 ml RECTAL DAILY PRN PRN Reason: Constipation Pantoprazole Sodium [Protonix] 40 mg PO DAILY@0600 Tamsulosin [Flomax] 0.4 mg PO BID@0800,1700 Fluticasone Propion/Salmeterol [Wixela 250-50 Inhub] 1 puff INHALATION RT- BID@0800,2100 Acetaminophen Tab [Tylenol] 650 mg PO Q4HR PRN tab PRN Reason: Fever And/ Or Pain guaiFENesin [Mucinex] 600 mg PO Q12HR@0800,2100 Ipratropium-Albuterol Nebulize [Duoneb 0.5 mg-3 mg/3 ml Soln] 3 ml INHALATION RT-QID@08,,, Mag Hydrox/Al Hydrox/Simeth [Maalox] 30 ml PO Q6H PRN PRN Reason: Indigestion Magnesium Hydroxide [Milk of Magnesia Concentrate] 7,200 mg PO DAILY PRN PRN Reason: Constipation Mirtazapine 7.5 mg PO HS@2100 predniSONE [Deltasone] 20 mg PO DAILY@0800 HYDROcodone/APAP 5-325MG [[place] 5-325] 1 tab PO Q4HR PRN PRN Reason: Pain Discontinued Anidulafungin [Eraxis] 100 mg IVPB DAILY@0800 Discharge Medication List Multivitamins, Thera [Multivitamin (formulary)] 1 tab PO DAILY@1200 01/22/20 [History] Ipratropium-Albuterol Nebulize [Duoneb 0.5 mg-3 mg/3 ml Soln] 3 ml INHALATION RT-QID PRN 07/30/21 [History] Fluticasone Propion/Salmeterol [Wixela 250-50 Inhub] 1 puff INHALATION RT- BID@0800,2100 07/16/22 [History] Acetaminophen Tab [Tylenol] 650 mg PO Q4HR PRN tab 08/29/22 [Rx] Ibuprofen [Motrin] 400 mg PO Q6HR PRN tab 08/29/22 [Rx] Ensure Enlive 237 ml PO DAILY@1700 09/06/22 [History] HYDROcodone/APAP 5-325MG [[place] 5-325] 1 tab PO Q4HR PRN 09/06/22 [History] Ipratropium-Albuterol Nebulize [Duoneb 0.5 mg-3 mg/3 ml Soln] 3 ml INHALATION RT-QID@08,12,17,21 09/06/22 [History] Mag Hydrox/Al Hydrox/Simeth [Maalox] 30 ml PO Q6H PRN 09/06/22 [History] Magic Cup 1 can PO DAILY@1200 09/06/22 [History] Magnesium Hydroxide [Milk of Magnesia Concentrate] 7,200 mg PO DAILY PRN 09/06/22 [History] Mirtazapine 7.5 mg PO HS@2100 09/06/22 [History] Na Phos,M-B/Na Phos,Di-Ba [Fleet Adult] 133 ml RECTAL DAILY PRN 09/06/22 [History] Pantoprazole Sodium [Protonix] 40 mg PO DAILY@0600 09/06/22 [History] Tamsulosin [Flomax] 0.4 mg PO BID@0800,1700 09/06/22 [History] bisacodyL 10 mg RECTAL DAILY PRN 09/06/22 [History] guaiFENesin [Mucinex] 600 mg PO Q12HR@0800,2100 09/06/22 [History] predniSONE [Deltasone] 20 mg PO DAILY@0800 09/06/22 [History] Apixaban [Eliquis Starter Pack (for VTE)] 5 - 10 mg PO DIRECTED 30 Days #1 each 09/10/22 [Rx] Ciprofloxacin HCl [Cipro] 500 mg PO BID #12 tab 09/10/22 [Rx] Follow up Appointment(s)/Referral(s): [facility], [NON-STAFF] - (they will call to schedule ) Maico Anders MD [Primary Care Provider] - 1-2 days (office closed. please call and schedule tell them you were discharged from [facility] 09/10 for PE, UTI) Carrie Faulkner MD [STAFF PHYSICIAN] - 1 Week (office closed. please call and schedule tell them you were discharged from [facility] 09/10 for PE, UTI) Patient Instructions/Handouts: Pulmonary Embolism (DC), Urinary Tract Infection in Men (DC) Activity/Diet/Wound Care/Special Instructions: Diet: Cardiac Follow up with your PCP within 1-2 days of discharge. Follow up with Pulmonology within 1 week of discharge. Take all medications as advised. Do not run out of Eliquis. Obtain refills from PCP. Discharge Disposition: HOME SELF-CARE
--- NOTE | 2022-09-10 13:36 | P.PN ---
Subjective Progress Note Date: 09/10/22 72-year-old male patient, presented to the hospital because of abdominal pain and fevers and not feeling well. He felt fatigued and he was also having some shortness of breath. He had low-grade temperature of 100.8. No nausea. No emesis. His colostomy site was essentially functioning. Based on that, the patient was transferred to our hospital knowing that he had a complicated course of acute perforated sigmoid diverticulitis with abscess formation and the patient underwent a sigmoid colectomy and end colostomy on 08/02/2022. Subsequently, postop, the patient developed ileus and he had a subsequent high- grade distal small bowel obstruction with transition point identified. This was thought to be related to adhesions. NG tube was inserted at that time. Subsequently, he improved and his colostomy became functional and the patient was discharged to rehabilitation. He did have also issues with obstructive uropathy for which a Art catheter was inserted in the Art catheter was kept in place. During his earlier course, he developed an acute kidney injury due to obstructive uropathy, and this improved. He has advanced COPD with an FEV1 of 26% of predicted and he is oxygen and steroid dependent. He has prostate cancer as comorbid conditions. In the ED, the patient was given another CAT scan of the abdomen that showed COPD and some interstitial changes in the lung bases. There was a 9 mm right lower lobe pulmonary nodule. There was also focal thickening of the gastric fundus consistent with gastritis and a small hiatal hernia. The left midabdominal sigmoid colostomy was seen. There was evidence of left colonic diverticulosis. No evidence of any diverticulitis. There was a Judy pouch. The bladder was collapsed and there was prostatic to megaly. The patient was also given a CTA of the chest that showed evidence of a pulmonary embolism in the right middle lobe pulmonary artery segmental branches and there was also filling defects in the lingular lobe artery and segmental right lower lobe pulmonary arteries. There was a 1 cm irregular specific another density in the right lower lobe. There was also a rounded atelectasis in the right lung base. The patient accordingly was started on IV heparin. He was also started on empiric antibiotic coverage with IV Rocephin suspecting an underlying UTI. He was also given Eraxis. His current echoes at 14.4 with a hemoglobin of 10.6 and a platelet count of 313. His d-dimer is at 9.1, normal coagulation profile, normal electrolytes, normal renal function, abnormal UA consistent with infection. Negative Covid 19 testing. He is currently on oxygen at 4 L with a pulse ox of 95%. On today's evaluation of 09/08/2022, the patient has no new complaints. The patient is on 3 L of oxygen by nasal cannula. He does have some residual suprapubic tenderness. Art catheter has been removed and the patient is voiding freely. No nausea. No vomiting. No pain. No chest pain. Colostomy is functional. There was another 9.3 with a hemoglobin of 9.6 and a platelet count of 262. BUN is at 22 with a creatinine of 1.06 and a sodium level is 134. The urine culture was positive for gram-negative bacillus and the patient is currently on Rocephin. Infectious disease also elevated at excess as the patient had a catheter that grew Melissa. This was identified during his earlier admission. The patient is hemodynamically stable. No signs of any respiratory distress at this point in time. On 09/06/2022, the patient is no fever. White cell count is improving. Art cath has been removed. Colostomy is functional. No signs of any respiratory distress. Remains on IV Rocephin. Urine cultures positive for gram-negative bacillus. The patient remains on anticoagulation regarding his pulmonary embolism and the patient is currently taking 10 mg of Eliquis twice a day. Doppler of the lower extremity was also negative for DVTs bilaterally. The white cell count is at 9.3 with a hemoglobin of 9.6 and a platelet count of 262. BUN is 22 with a creatinine of 1.06. On today's evaluation of 09/10/2022, I'm seeing the patient for a follow-up. The urine culture did not pseudomonas aeruginosa and the patient will be switched to oral ciprofloxacin. The patient has no specific complaint otherwise for now. No cough. No sputum production. No chest pain. The patient's colostomy site is functional. No fever or chills. Art catheter is removed. Objective - Vital Signs Vital signs: Vital Signs Temp 97.8 F 09/10/22 08:00 Pulse 98 09/10/22 08:13 Resp 20 09/10/22 08:00 BP 136/65 09/10/22 08:00 Pulse Ox 97 09/10/22 08:00 FiO2 Intake & Output 09/09/22 09/10/22 09/10/22 18:59 06:59 18:59 Intake Total 600 240 Output Total 450 250 Balance 150 -250 240 Intake: Intake, IV Titration 600 Amount Sodium Chloride 0.9% 1, 600 000 ml @ 75 mls/hr IV . [id number] [facility] Rx#:[id number] Oral 240 Output: Urine 200 250 Stool 250 Other: Voiding Method Urinal - Exam GENERAL EXAM: Alert, pleasant 72-year-old male, on 4 L nasal cannula, HEAD: Normocephalic. EYES: Normal reaction of pupils, equal size. NOSE: Nasogastric tube currently in place. Clear with pink turbinates. THROAT: No erythema or exudates. NECK: No masses, no JVD. CHEST: No chest wall deformity. LUNGS: Equal air entry with bilateral end expiratory wheeze, diminished. CVS: S1 and S2 normal with no audible murmur, regular rhythm. The patient is a component of sinus tachycardia ABDOMEN: Postsurgical changes. Ostomy intact. Functioning with adequate stool. The patient has some positive bowel sounds . The surgical one-sided dry clean and intact. Mild abdominal tenderness around the stoma. No rebound tenderness. No guarding. SPINE: No scoliosis or deformity SKIN: No rashes CENTRAL NERVOUS SYSTEM: No focal deficits, tone is normal in all 4 extremities. EXTREMITIES: There is no peripheral edema. No clubbing, no cyanosis. Peripheral pulses are intact. - Labs CBC & Chem 7: 09/08/22 08:06 09/08/22 08:06 Labs: Microbiology - Last 24 Hours (Table) 09/06/22 19:38 Blood Culture - Preliminary Blood 09/06/22 19:50 Urine Culture - Final Urine,Clean Catch Pseudomonas aeruginosa 09/06/22 19:35 Blood Culture - Preliminary Blood Assessment and Plan Plan: Acute bilateral pulmonary embolism, Doppler of the lower extremity is negative and the patient is currently on anticoagulation with Eliquis Acute on chronic hypoxic respiratory failure currently on 4 L of oxygen by nasal cannula, based on O2 requirements at 2 L UTI, , Art cath is removed. The cultures positive for pseudomonas aeruginosa Sinus tachycardia secondary to above, improved History of acute perforated diverticulitis with abscess formation, status post sigmoid colectomy and end colostomy that was done on 08/02/2022. History of high-grade distal small bowel obstruction, recovered Advanced COPD with an FEV1 of 26% of predicted maintain on oxygen and steroids Chronic hypoxic respiratory failure, maintain O2 at 2 L nasal cannula Prostate cancer Acid reflux Hiatal hernia. Sigmoid diverticulosis Leukocytosis, mild, secondary to above Plan Continue Eliquis 10 mg by mouth twice a day. Wean FiO2 to maintain a saturation above 90% Obtain Doppler of the lower extremities was completed and the results were negative for DVT Echocardiogram, no evidence of any significant pulmonary hypertension Continue antibiotics and the patient will be switched to oral ciprofloxacin for pseudomonal UTI, the patient is also on Eraxis Art cath is removed Resume all medications We'll continue to follow Patient is a full CODE STATUS. Is quite debilitated because of his advanced COPD and the various comorbidities as mentioned above. Discharge planning is in progress
[2022-09-10] MEDS ORDERED: CIPROFLOXACIN HCL 500 MG TAB PO SCH (21:00)
== END 2022-09-10 13:53 | disposition home or self-care (01) | DRG 698 ==
LOC: EC 18:57 → 4SSUR 22:16 → OBSVTOIN 22:16 → 4SSUR 22:49 → 3SCARD 09-07 05:37
PROVIDERS: ADMIT Internal Medicine; ATTEND Internal Medicine
DX: T83.518A Infection and inflammatory reaction due to other urinary catheter, initial encounter (principal); A41.9 Sepsis, unspecified organism; I26.99 Other pulmonary embolism without acute cor pulmonale; J96.21 Acute and chronic respiratory failure with hypoxia; N39.0 Urinary tract infection, site not specified; J98.11 Atelectasis; N13.9 Obstructive and reflux uropathy, unspecified; Y84.6 Urinary catheterization as the cause of abnormal reaction of the patient, or of later complication, without mention of misadventure at the time of the procedure; K57.30 Diverticulosis of large intestine without perforation or abscess without bleeding; K44.9 Diaphragmatic hernia without obstruction or gangrene; K29.70 Gastritis, unspecified, without bleeding; C61 Malignant neoplasm of prostate; J44.9 Chronic obstructive pulmonary disease, unspecified; F40.240 Claustrophobia; B96.89 Other specified bacterial agents as the cause of diseases classified elsewhere; Z20.822 Contact with and (suspected) exposure to COVID-19; Z79.52 Long term (current) use of systemic steroids; Z79.899 Other long term (current) drug therapy; Z90.49 Acquired absence of other specified parts of digestive tract; Z93.3 Colostomy status; Z99.81 Dependence on supplemental oxygen; Z87.891 Personal history of nicotine dependence
CPT/HCPCS: 36415; 71046; 71275; 74177; 80048; 80053; 81001; 83605; 85025; 85379; 85610; 85730; 87040; 87077; 87086; 87186; 87636; 93005; 93308; 93970; 94640; 94760; 96361; 96365; 96367; 96372; 99285

== ENCOUNTER 2022-10-21 18:08 | Observation (INO) | payer MEDICARE, OTHER ==
[2022-10-21] MEDS ORDERED: ASPIRIN 81 MG PO STA (18:29)
[2022-10-21] MEDS ORDERED: SODIUM CHLORIDE 0.9% 1,000 ML IV STA (18:29)
[2022-10-21] MEDS ORDERED: methylPREDNISolone SOD SUCCI 125 MG/2 ML VIAL IV STA (18:30)
[2022-10-21] MEDS ORDERED: IPRATROPIUM-ALBUTEROL 3 ML NEB INHALATION STA (18:30)
[2022-10-21 18:45] LABS: Basophils # (A) 0.1 k/uL (0-0.2); Basophils % (A) 1 %; Eosinophils # (A) 0.3 k/uL (0-0.7); Eosinophils % (A) 4 %; HCT 40.5 % (39.0-53.0); Lymphocytes # (A) 2.7 k/uL (1.0-4.8); Lymphocytes % (A) 39 %; MCH 29.3 pg (25.0-35.0); MCHC 31.8 g/dL (31.0-37.0); Mean Platelet Volume 6.8; Monocytes # (A) 0.4 k/uL (0-1.0); Monocytes % (A) 6 %; Neutrophils # (A) 3.4 k/uL (1.3-7.7); Neutrophils % (A) 48 %; Platelet Count 311 k/uL (150-450); RDW 13.9 % (11.5-15.5); WBC 7.1 k/uL (3.8-10.6)
[2022-10-21 18:52] LABS: HGB 12.9 gm/dL (13.0-17.5)
[2022-10-21 19:02] LABS: ALT 24 U/L (4-49); AST 29 U/L (17-59); African American GFR (CKD) 77 (>60 ml/min/1.73 sqM); Alkaline Phosphatase 77 U/L (38-126); Anion Gap 7 mmol/L; Blood Urea Nitrogen 18 mg/dL (9-20); Calcium 9.6 mg/dL (8.4-10.2); Carbon Dioxide 29 mmol/L (22-30); Chloride 102 mmol/L (98-107); Glucose 105 mg/dL (74-99); Magnesium 1.9 mg/dL (1.6-2.3); Non-African American GFR(CKD) 66 (>60 ml/min/1.73 sqM); Potassium 4.4 mmol/L (3.5-5.1); Sodium 138 mmol/L (137-145); Total Bilirubin 0.4 mg/dL (0.2-1.3); Total Protein 6.8 g/dL (6.3-8.2)
[2022-10-21 19:27] LABS: INR 0.9 (<1.2); Partial Thromboplastin Time 23.6 sec (22.0-30.0); Prothrombin Time 9.9 sec (9.0-12.0)
--- NOTE | 2022-10-21 20:34 | XR ---
EXAMINATION TYPE: XR chest 2V DATE OF EXAM: 10/21/2022 COMPARISON: 09/06/2022 INDICATION: Chest pain difficulty breathing TECHNIQUE: Frontal and lateral views of the chest are obtained. FINDINGS: The heart size is normal. The pulmonary vasculature is normal. The lungs are clear. There is hyperinflation flattening the diaphragms compatible with COPD IMPRESSION: 1. No acute pulmonary process. 2. COPD
[2022-10-21] MEDS ORDERED: NALOXONE 0.4 MG/ML 1 ML VIAL IV PRN (20:46)
[2022-10-21] MEDS ORDERED: ONDANSETRON 4 MG/2 ML VIAL IVP PRN (20:46)
[2022-10-21] MEDS: APIXABAN 5 MG TAB PO SCH (21:06)
--- NOTE | 2022-10-21 22:33 | P.HPIM ---
History of Present Illness H&P Date: 10/21/22 Patient is a 72-year-old male with a PMH of COPD with chronic hypoxic respiratory failure on 2 L is cannula oxygen continuously at home, recent bilateral PEs on Eliquis, recent perforated diverticulitis status post colostomy who presents to the emergency room with complaints of chest discomfort and shortness of breath. The patient reports that his symptoms started yesterday afternoon with right-sided chest discomfort, heavy in nature, 6 out of 10 at maximal intensity, intermittent, somewhat worsened with exertion, lasting 15-20 minutes at a time occurring 3 times daily, with associated shortness of breath, nausea, and dizziness. The patient reports the pain was nonpleuritic. He reports compliance with his Eliquis at home. The patient also reports chronic cough which is productive of whitish phlegm unchanged. In the emergency room, chest x-ray was unremarkable with EKG showing sinus tachycardia at [address]/T-wave changes noted as reviewed by me. Laboratory evaluation was remarkable for troponin less than 0.012 and creatinine 1.11 with hemoglobin 12.9.. ED documentation reviewed and case discussed with ED provider. Review of systems: Pertinent positives and negatives as discussed in HPI, a complete review of systems was performed and all other systems are negative. Physical examination: Vital signs reviewed General: non toxic, no distress, appears at stated age, normal weight Derm: no unusual rashes/lesions, warm Head: atraumatic, normocephalic, symmetric Eyes: EOMI, no lid lag, anicteric sclera, pupils equal round reactive to light ENT: Nose and ears atraumatic Neck: No cervical lymphadenopathy, trachea midline, supple Mouth: no lip lesion, mucus membranes moist Cardiovascular: S1S2 reg, no murmur, positive dorsalis pedis pulse bilateral, no edema Lungs: CTA bilateral, no rhonchi, no rales, no accessory muscle use Abdominal: soft, nontender to palpation, no guarding Ext: muscle strength 5 out of 5 in all 4 extremities grossly, no gross muscle atrophy, no contractures, Neuro: CN II-XI grossly intact, no gross focal neuro deficits Psych: Alert, oriented, appropriate affect Assessment: Chest tightness with shortness of breath, ACS versus less likely COPD exacerbation Chronic conditions: Recent history of PE, COPD, A. fib Imaging: In the emergency room, chest x-ray was unremarkable with EKG showing sinus tachycardia at [address]/T-wave changes noted as reviewed by me. Data Review: Laboratory evaluation was remarkable for troponin less than 0.012 and creatinine 1.11 with hemoglobin 12.9. Plan: Continue with aspirin, statin Trend troponin Cardiac monitoring Cardiology consulted Continue with DuoNeb's with Solu-Medrol DVT prophylaxis: Eliquis The patient is admitted with an anticipated less than 2 midnight stay for ev aluation of chest pain CODE STATUS: Full Code Discussed with: Patient, Anticipated discharge place: Home Past Medical History Past Medical History: Cancer, COPD, GERD/Reflux Additional Past Medical History / Comment(s): positional upper abdominal pain stated when he changes position from laying to sitting and standing. History of Any Multi-Drug Resistant Organisms: None Reported Past Surgical History: Orthopedic Surgery, Tonsillectomy Additional Past Surgical History / Comment(s): Right shoulder arthroscopy. Colonoscopy. EGD Past Anesthesia/Blood Transfusion Reactions: No Reported Reaction Additional Past Anesthesia/Blood Transfusion Reaction / Comment(s): Pt has CLAUSTROPHOBIA Past Psychological History: No Psychological Hx Reported Smoking Status: Former smoker Past Alcohol Use History: None Reported Past Drug Use History: None Reported - Past Family History Father Family Medical History: Cancer Mother Family Medical History: Cancer Additional Family Medical History / Comment(s): Mother in her 50s with some form of cancer. Pt/spouse do not recall type of cancer. Medications and Allergies Home Medications Medication Instructions Recorded Confirmed Type Ipratropium-Albuterol Nebulize 3 ml INHALATION RT-QID PRN 07/30/21 10/21/22 History [Duoneb 0.5 mg-3 mg/3 ml Soln] Albuterol Sulfate [Albuterol 1 - 2 puff PO RT-Q6H PRN 10/21/22 10/21/22 History Sulfate Hfa] Apixaban [Eliquis] 5 mg PO BID 10/21/22 10/21/22 History Fluticasone Propion/Salmeterol 1 puff INHALATION RT-BID 10/21/22 10/21/22 History [Advair 250-50 Diskus] predniSONE 5 mg PO DAILY 10/21/22 10/21/22 History Allergies Allergy/AdvReac Type Severity Reaction Status Date / Time No Known Allergies Allergy Verified 08/04/23 20:24 Physical Exam Vitals: Vital Signs Temp Pulse Resp BP Pulse Ox 10/21/22 20:07 93 10/21/22 20:00 20 10/21/22 19:55 85 10/21/22 19:10 88 18 122/77 99 10/21/22 18:56 99 20 115/71 96 10/21/22 18:11 98.4 F 110 H 24 122/67 97 Intake and Output 10/21/22 10/21/22 10/21/22 06:59 14:59 22:59 Other: Weight 57.153 kg Results CBC & Chem 7: 10/21/22 18:32 10/21/22 18:32 Labs: Abnormal Lab Results - Last 24 Hours (Table) 10/21/22 10/21/22 Range/Units 18:32 18:32 Hgb 12.9 L D (13.0-17.5) gm/dL Glucose 105 H (74-99) mg/dL
--- NOTE | 2022-10-21 23:10 | ED ---
General Adult HPI - General Chief complaint: Chest Pain Stated complaint: Chest Heaviness Time Seen by Provider: 10/21/22 18:18 Source: patient, RN notes reviewed, old records reviewed Mode of arrival: wheelchair Limitations: no limitations - History of Present Illness Initial comments: Patient is a 72-year-old male with past medical history remarkable for recently diagnosed PE on Eliquis compliant with medication, COPD who presents emergency Department complaining of multiple days of chest heaviness, unknown etiology. No cardiac history. Patient has been compliant with medications. Is chronically on 3 L nasal cannula. Endorses a mild minimally productive cough. No fevers. No abdominal pain, nausea, vomiting. No diaphoresis. No known pal liative or provocative episodes. Presents for further evaluation at this time. - Related Data Home Medications Medication Instructions Recorded Confirmed Ipratropium-Albuterol Nebulize 3 ml INHALATION RT-QID PRN 07/30/21 10/21/22 [Duoneb 0.5 mg-3 mg/3 ml Soln] Albuterol Sulfate [Albuterol 1 - 2 puff PO RT-Q6H PRN 10/21/22 10/21/22 Sulfate Hfa] Apixaban [Eliquis] 5 mg PO BID 10/21/22 10/21/22 Fluticasone Propion/Salmeterol 1 puff INHALATION RT-BID 10/21/22 10/21/22 [Advair 250-50 Diskus] predniSONE 5 mg PO DAILY 10/21/22 10/21/22 Allergies Allergy/AdvReac Type Severity Reaction Status Date / Time No Known Allergies Allergy Verified 10/21/22 20:24 Review of Systems ROS Statement: Those systems with pertinent positive or pertinent negative responses have been documented in the HPI. Review of Systems: CONST: Denies fever EYES: Denies blurry vision ENT: Denies nasal congestion C/V: Endorses chest discomfort RESP: Denies shortness of breath GI: Denies abdominal pain : Denies dysuria SKIN: Denies rash. MSK: Denies joint pain. NEURO: Denies headache ROS Other: All systems not noted in ROS Statement are negative. Past Medical History Past Medical History: Cancer, COPD, GERD/Reflux Additional Past Medical History / Comment(s): positional upper abdominal pain stated when he changes position from laying to sitting and standing. History of Any Multi-Drug Resistant Organisms: None Reported Past Surgical History: Orthopedic Surgery, Tonsillectomy Additional Past Surgical History / Comment(s): Right shoulder arthroscopy. Colonoscopy. EGD Past Anesthesia/Blood Transfusion Reactions: No Reported Reaction Additional Past Anesthesia/Blood Transfusion Reaction / Comment(s): Pt has CLAUSTROPHOBIA Past Psychological History: No Psychological Hx Reported Smoking Status: Former smoker Past Alcohol Use History: None Reported Past Drug Use History: None Reported - Past Family History Father Family Medical History: Cancer Mother Family Medical History: Cancer Additional Family Medical History / Comment(s): Mother in her 50s with some form of cancer. Pt/spouse do not recall type of cancer. General Exam - General Exam Comments Initial Comments: General: Appears in no acute distress. HEAD: Normal with no signs of head trauma. EYES: PERRLA, EOMI, conjunctiva normal, no discharge. ENT: Hearing grossly intact, normal oropharynx. RESPIRATORY: Bilateral end expiratory wheezing. No hypoxia on baseline nasal cannula oxygen. C/V: Regular rate and rhythm. S1 and S2 auscultated, no edema, peripheral pulses 2+ and intact throughout ABD: Abd is soft, nontender, nondistended EXT: Normal range of motion, no obvious deformity SKIN: No rashes or lesions observed on exposed skin. NEURO: Alert and oriented x 4. Cranial nerves II-XII intact. No focal sensory or strength deficits. Limitations: no limitations Course Vital Signs 10/21/22 10/21/22 10/21/22 18:11 18:56 19:10 Temperature 98.4 F Pulse Rate 110 H 99 88 Respiratory 24 20 18 Rate Blood Pressure 122/67 115/71 122/77 O2 Sat by Pulse 97 96 99 Oximetry 10/21/22 10/21/22 10/21/22 19:55 20:00 20:07 Temperature Pulse Rate 85 93 Respiratory 20 Rate Blood Pressure O2 Sat by Pulse Oximetry 10/21/22 23:07 Temperature Pulse Rate 78 Respiratory 18 Rate Blood Pressure 116/78 O2 Sat by Pulse 98 Oximetry Medical Decision Making - Medical Decision Making Was pt. sent in by a medical professional or institution (, PA, WEB MARKETING ANALYST, urgent care, hospital, or snf...) When possible be specific @ -No Did you speak to anyone other than the patient for history (EMS, parent, family, police, friend...)? What history was obtained from this source @ -No Did you review nursing and triage notes (agree or disagree)? Why? @ -I reviewed and agree with nursing and triage notes Were old charts reviewed (outside hosp., previous admission, EMS record, old EKG, old radiological studies, urgent care reports/EKG's, snf records)? Report findings @ -Old charts reviewed from August 2022. Differential Diagnosis (chest pain, altered mental status, abdominal pain women, abdominal pain men, vaginal bleeding, weakness, fever, dyspnea, syncope, headache, dizziness, GI bleed, back pain, seizure, CVA, palpatations, mental health, musculoskeletal)? @ -Differential Chest Pain: Stable Angina, Unstable Angina, STEMI, NSTEMI Aortic Dissection, Pneumothorax, Musculoskeletal, Esophageal Spasm GERD, Cholecystitis, Pancreatitis, Zoster, this is not meant to be an all-inclusive list. EKG interpreted by me (3pts min.). @ -As above X-rays interpreted by me (1pt min.). @ -Chest x-ray shows no obvious acute cardio pulmonary process. CT interpreted by me (1pt min.). @ -None done U/S interpreted by me (1pt. min.). @ -None done What testing was considered but not performed or refused? (CT, X-rays, U/S, labs)? Why? @ -None What meds were considered but not given or refused? Why? @ -None Did you discuss the management of the patient with other professionals (professionals i.e. , PA, WEB MARKETING ANALYST, lab, RT, psych nurse, mental health social worker, basket patcher, teacher, marketing and communications officer, bilingual case manager)? Give summary @ -Discussed with the admitting physician, Dr. Alford who accepted the admission. Discussed consultants, and he was in agreement with holding on cardiology and pulmonology consult. Was smoking cessation discussed for >3mins.? @ -No Was critical care preformed (if so, how long)? @ -No Were there social determinants of health that impacted care today? How? (Homelessness, low income, unemployed, alcoholism, drug addiction, transportation, low edu. Level, literacy, decrease access to med. care, correction, r ehab)? @ -No Was there de-escalation of care discussed even if they declined (Discuss DNR or withdrawal of care, Hospice)? DNR status @ -No What co-morbidities impacted this encounter? (DM, HTN, Smoking, COPD, CAD, Cancer, CVA, ARF, Chemo, Hep., AIDS, mental health diagnosis, sleep apnea, morbid obesity)? @ -None Was patient admitted / discharged? Hospital course, mention meds given and route, prescriptions, significant lab abnormalities, going to OR and other pertinent info. @ -Based on the patient's presentation and physical exam, I'm concerned for possible cardiac etiology for his current symptoms. Has recently diagnosed PE by currently symptom no respiratory distress other than the bilateral wheezing from his COPD. I do not believe that this is his PE causing this. Has been compliant with blood thinning medication. Vital signs within acceptable limits. We'll obtain cardiopulmonary labs. He was in agreement this plan. He'll be symptomatically treated with IV fluids, a dose of aspirin, as well as IV steroids breathing treatment. Chest x-ray shows no obvious acute cardio primary process. Labs are within acceptable limits. This includes an undetectable troponin. Vital signs negative. EKG unremarkable. On reevaluation, patient is feeling somewhat improved but is still having some wheezing. Recommended admission for trending troponin due to his history as well as COPD. He was in agreement this plan. Patient's heart score is low to moderate at 3-4. I spoke with the admitting physician, Dr. Alford who accepted the admission. Was in agreement with the plan. Was also in agreement with the plan to hold off on cardiology and pulmonology consults. Undiagnosed new problem with uncertain prognosis? @ -No Drug Therapy requiring intensive monitoring for toxicity (Heparin, Nitro, Insulin, Cardizem)? @ -No Were any procedures done? @ -No Diagnosis/symptom? @ -Chest pain Acute, or Chronic, or Acute on Chronic? @ -Acute Uncomplicated (without systemic symptoms) or Complicated (systemic symptoms)? @ -Complicated Side effects of treatment? @ -No Exacerbation, Progression, or Severe Exacerbation? @ -No Poses a threat to life or bodily function? How? (Chest pain, [place], [place], pneumonia, PE, COPD, DKA, ARF, appy, cholecystitis, CVA, Diverticulitis, Homicidal, Suicidal, threat to staff... and all critical care pts) @ -yes Diagnosis/symptom? @ -COPD, chronic hypoxic respiratory failure Acute, or Chronic, or Acute on Chronic? @ -Acute on chronic Uncomplicated (without systemic symptoms) or Complicated (systemic symptoms)? @ -Complicated Side effects of treatment? @ -none Exacerbation, Progression, or Severe Exacerbation] @ -Exacerbation Poses a threat to life or bodily function? @ -Yes - Lab Data Result diagrams: 10/21/22 18:32 10/21/22 18:32 Lab Results 10/21/22 10/21/22 10/21/22 Range/Units 18:32 18:32 18:32 WBC 7.1 (3.8-10.6) k/uL RBC 4.40 (4.30-5.90) m/uL Hgb 12.9 L D (13.0-17.5) gm/dL Hct 40.5 (39.0-53.0) % MCV 92.0 D (80.0-100.0) fL MCH 29.3 (25.0-35.0) pg MCHC 31.8 (31.0-37.0) g/dL RDW 13.9 (11.5-15.5) % Plt Count 311 (150-450) k/uL MPV 6.8 Neutrophils % 48 % Lymphocytes % 39 % Monocytes % 6 % Eosinophils % 4 % Basophils % 1 % Neutrophils # 3.4 (1.3-7.7) k/uL Lymphocytes # 2.7 (1.0-4.8) k/uL Monocytes # 0.4 (0-1.0) k/uL Eosinophils # 0.3 (0-0.7) k/uL Basophils # 0.1 (0-0.2) k/uL PT 9.9 (9.0-12.0) sec INR 0.9 (<1.2) APTT 23.6 (22.0-30.0) sec Sodium 138 (137-145) mmol/L Potassium 4.4 (3.5-5.1) mmol/L Chloride 102 (98-107) mmol/L Carbon Dioxide 29 (22-30) mmol/L Anion Gap 7 mmol/L BUN 18 (9-20) mg/dL Creatinine 1.11 (0.66-1.25) mg/dL Est GFR (CKD-EPI)AfAm 77 (>60 ml/min/1.73 sqM) Est GFR (CKD-EPI)NonAf 66 (>60 ml/min/1.73 sqM) Glucose 105 H (74-99) mg/dL Calcium 9.6 (8.4-10.2) mg/dL Magnesium 1.9 (1.6-2.3) mg/dL Total Bilirubin 0.4 (0.2-1.3) mg/dL AST 29 (17-59) U/L ALT 24 (4-49) U/L Alkaline Phosphatase 77 (38-126) U/L Troponin I (0.000-0.034) ng/mL Total Protein 6.8 (6.3-8.2) g/dL Albumin 4.0 (3.5-5.0) g/dL Influenza Type A (PCR) (Not Detectd) Influenza Type B (PCR) (Not Detectd) RSV (PCR) (Not Detectd) SARS-CoV-2 (PCR) (Not Detectd) 10/21/22 10/21/22 Range/Units 18:32 19:00 WBC (3.8-10.6) k/uL RBC (4.30-5.90) m/uL Hgb (13.0-17.5) gm/dL Hct (39.0-53.0) % MCV (80.0-100.0) fL MCH (25.0-35.0) pg MCHC (31.0-37.0) g/dL RDW (11.5-15.5) % Plt Count (150-450) k/uL MPV Neutrophils % % Lymphocytes % % Monocytes % % Eosinophils % % Basophils % % Neutrophils # (1.3-7.7) k/uL Lymphocytes # (1.0-4.8) k/uL Monocytes # (0-1.0) k/uL Eosinophils # (0-0.7) k/uL Basophils # (0-0.2) k/uL PT (9.0-12.0) sec INR (<1.2) APTT (22.0-30.0) sec Sodium (137-145) mmol/L Potassium (3.5-5.1) mmol/L Chloride (98-107) mmol/L Carbon Dioxide (22-30) mmol/L Anion Gap mmol/L BUN (9-20) mg/dL Creatinine (0.66-1.25) mg/dL Est GFR (CKD-EPI)AfAm (>60 ml/min/1.73 sqM) Est GFR (CKD-EPI)NonAf (>60 ml/min/1.73 sqM) Glucose (74-99) mg/dL Calcium (8.4-10.2) mg/dL Magnesium (1.6-2.3) mg/dL Total Bilirubin (0.2-1.3) mg/dL AST (17-59) U/L ALT (4-49) U/L Alkaline Phosphatase (38-126) U/L Troponin I <0.012 (0.000-0.034) ng/mL Total Protein (6.3-8.2) g/dL Albumin (3.5-5.0) g/dL Influenza Type A (PCR) Not Detected (Not Detectd) Influenza Type B (PCR) Not Detected (Not Detectd) RSV (PCR) Not Detected (Not Detectd) SARS-CoV-2 (PCR) Not Detected (Not Detectd) - EKG Data -: EKG Interpreted by Me EKG Comments: 12-lead Electrocardiogram Interpretation Note EKG was reviewed and interpreted by myself. 12-lead ECG performed at 1826 is interpreted by me as revealing sinus tachycardia at a rate of 101 beats per minute. [place] is normal. SC interval is 128 ms, QRS duration is 66 ms, QTc is 363 ms.. There were no ST or T wave abnormalities to suggest myocardial ischemia or injury. R wave progression across the precordium was satisfactory. By my interpretation this EKG is non-diagnostic for acute ischemia. Disposition Clinical Impression: Chest pain, COPD (chronic obstructive pulmonary disease) Disposition: ADMITTED IP TO THIS HOSP Condition: Stable Time of Disposition: 20:45
[2022-10-22] MEDS ORDERED: MORPHINE SULFATE 2 MG/ML SYRINGE IVP STA (02:07)
[2022-10-22] MEDS: IPRATROPIUM-ALBUTEROL 3 ML NEB INHALATION SCH ×6 (04:28→20:47)
[2022-10-22] MEDS: methylPREDNISolone SOD SUCCI 40 MG/ML 1 ML VIAL IV SCH ×2 (06:42→17:38)
[2022-10-22 06:55] LABS: Basophils % (A) 0 %; Eosinophils % (A) 0 %; HCT 34.2 % (39.0-53.0); HGB 11.6 gm/dL (13.0-17.5); Lymphocytes # (A) 0.7 k/uL (1.0-4.8); Lymphocytes % (A) 12 %; MCH 30.9 pg (25.0-35.0); MCHC 33.9 g/dL (31.0-37.0); MCV 91.1 fL (80.0-100.0); Mean Platelet Volume 7.1; Monocytes % (A) 1 %; Neutrophils # (A) 5.1 k/uL (1.3-7.7); Neutrophils % (A) 87 %; Platelet Count 274 k/uL (150-450); RBC 3.76 m/uL (4.30-5.90); RDW 13.9 % (11.5-15.5); WBC 5.8 k/uL (3.8-10.6)
[2022-10-22 07:11] LABS: African American GFR (CKD) >90 (>60 ml/min/1.73 sqM); Anion Gap 6 mmol/L; Blood Urea Nitrogen 16 mg/dL (9-20); Calcium 8.9 mg/dL (8.4-10.2); Carbon Dioxide 25 mmol/L (22-30); Chloride 106 mmol/L (98-107); Glucose 148 mg/dL (74-99); Non-African American GFR(CKD) 82 (>60 ml/min/1.73 sqM); Potassium 5.1 mmol/L (3.5-5.1); Sodium 137 mmol/L (137-145)
[2022-10-22] MEDS: SYMBICORT 80-4.5 MCG INHALER INHALATION SCH ×2 (08:07→20:47)
[2022-10-22] MEDS: APIXABAN 5 MG TAB PO SCH ×2 (08:17→19:29)
--- NOTE | 2022-10-22 10:46 | P.CRDCN ---
History of Present Illness History of present illness: HISTORY OF PRESENT ILLNESS: This is a 72-year-old male with a past medical history significant for COPD, former nicotine dependence, and recent diagnosis of pulmonary embolism on anticoagulation. Patient follows in the office with Dr. Post. We have been asked to see the patient in consultation for chest pain. Patient examined at the bedside. Patient states morning when he woke up he began to have shortness of breath and chest pain. He states the pain was on the right side of his chest and felt like a pressure type sensation. He denied any radiation of the pain. He states the pain was not worse with deep inspiration. He does report that the pain was worse with movement. He states that pain lasted for approximately 15 or 20 minutes. He states he had another episode of this discomfort yesterday which also lasted for about 20 minutes and resolved on its own. He states he has never felt pain like this before. He reports having shortness of breath for the past few days it has become progressively worse. He came to the emergency room for further evaluation. He is currently being treated for a COPD exacerbation receiving IV steroids. He denies any chest pain or pressure at the time of examination. He is a former smoker and quit smoking 3 years ago. * EKG reveals sinus tachycardia with no signs of acute ischemia * Chest xray no acute pulmonary process. COPD. * Laboratory data: WBC 5.8. Hemoglobin 11.6. Platelet count 274. Sodium 137. Potassium 5.1. BUN 16. Creatinine 0.93. Troponin negative 3. * Current home cardiac medications include Eliquis 5mg BID * Most recent echocardiogram obtained in August 2022 revealed ejection fraction 55-60%, mild to moderate pulmonary hypertension, mild tricuspid regurgitation * Patient underwent Lexiscan stress test in November 2021 which was negative for ischemia REVIEW OF SYSTEMS: At the time of my exam: CONSTITUTIONAL: Denies fever or chills. HEENT: Denies blurred vision, vision changes, or eye pain. Denies hemoptysis CARDIOVASCULAR: Denies chest pain. Denies orthopnea. Denies PND. Denies palpitations RESPIRATORY: Denies shortness of breath. GASTROINTESTINAL: Denies abdominal pain. Denies nausea or vomiting. HEMATOLOGIC: Denies bleeding disorders. GENITOURINARY: Denies any blood in urine. SKIN: Denies pruitis. Denies rash. PHYSICAL EXAM: VITAL SIGNS: Reviewed. GENERAL: Well-developed in no acute distress. HEENT: Head is normocephalic. Pupils are equal, round. Sclerae anicteric. Mucous membranes of the mouth are moist. Neck supple. No JVD or thyromegaly LUNGS: Respirations even and unlabored. Lungs with decreased air exchange. Coughing noted upon examination HEART: Regular rate and rhythm. S1 and S2 heard. ABDOMEN: Soft. Nondistended. Nontender. EXTREMITIES: Normal range of motion. No clubbing or cyanosis. Peripheral pulses intact. No lower extremity edema NEUROLOGIC: Awake and alert. Oriented x 3. ASSESSMENT: Shortness of breath Acute COPD exacerbation Chest pain, atypical, troponin negative 3 Former nicotine dependence, patient quit smoking 3 years ago Recent diagnosis of pulmonary embolism, on anticoagulation outpatient PLAN: An acute coronary been has been ruled out Obtain 2-D echo to assess cardiac structure and function Resume home cardiac medications Check lipid panel. Begin atorvastatin 20 mg at night Will consider outpatient Lexiscan stress test when patient's acute COPD exacerbation has resolved Patient may follow up outpatient with Dr. Post Nurse practitioner note has been reviewed by physician. Signing provider agrees with the documented findings, assessment, and plan of care. Past Medical History Past Medical History: Cancer, COPD, GERD/Reflux Additional Past Medical History / Comment(s): positional upper abdominal pain stated when he changes position from laying to sitting and standing. History of Any Multi-Drug Resistant Organisms: None Reported Past Surgical History: Orthopedic Surgery, Tonsillectomy Additional Past Surgical History / Comment(s): Right shoulder arthroscopy. Colonoscopy. EGD Past Anesthesia/Blood Transfusion Reactions: No Reported Reaction Additional Past Anesthesia/Blood Transfusion Reaction / Comment(s): Pt has CLAUSTROPHOBIA Past Psychological History: No Psychological Hx Reported Smoking Status: Former smoker Past Alcohol Use History: None Reported Past Drug Use History: None Reported - Past Family History Father Family Medical History: Cancer Mother Family Medical History: Cancer Additional Family Medical History / Comment(s): Mother in her 50s with some form of cancer. Pt/spouse do not recall type of cancer. Medications and Allergies Home Medications Medication Instructions Recorded Confirmed Type Ipratropium-Albuterol Nebulize 3 ml INHALATION RT-QID PRN 07/30/21 10/21/22 History [Duoneb 0.5 mg-3 mg/3 ml Soln] Albuterol Sulfate [Albuterol 1 - 2 puff PO RT-Q6H PRN 10/21/22 10/21/22 History Sulfate Hfa] Apixaban [Eliquis] 5 mg PO BID 10/21/22 10/21/22 History Fluticasone Propion/Salmeterol 1 puff INHALATION RT-BID 10/21/22 10/21/22 History [Advair 250-50 Diskus] predniSONE 5 mg PO DAILY 10/21/22 10/21/22 History Allergies Allergy/AdvReac Type Severity Reaction Status Date / Time No Known Allergies Allergy Verified 10/21/22 20:24 Physical Exam Vitals: Vital Signs Temp Pulse Pulse Resp BP BP Pulse Ox 10/22/22 02:06 97.6 F 98 16 112/69 99 10/21/22 23:07 78 18 116/78 98 10/21/22 20:07 93 10/21/22 20:00 20 10/21/22 19:55 85 10/21/22 19:10 88 18 122/77 99 10/21/22 18:56 99 20 115/71 96 10/21/22 18:11 98.4 F 110 H 24 122/67 97 Intake and Output 10/21/22 10/22/22 10/22/22 22:59 06:59 14:59 Other: Voiding Method Toilet Weight 57.153 kg 57.153 kg Results 10/22/22 06:32 10/22/22 06:32 Cardiac Enzymes 10/21/22 10/21/22 10/21/22 Range/Units 18:32 18:32 21:04 AST 29 (17-59) U/L Troponin I <0.012 <0.012 (0.000-0.034) ng/mL 10/22/22 Range/Units 00:49 AST (17-59) U/L Troponin I <0.012 (0.000-0.034) ng/mL Coagulation 10/21/22 Range/Units 18:32 PT 9.9 (9.0-12.0) sec APTT 23.6 (22.0-30.0) sec CBC 10/21/22 10/22/22 Range/Units 18:32 06:32 WBC 7.1 5.8 (3.8-10.6) k/uL RBC 4.40 3.76 L (4.30-5.90) m/uL Hgb 12.9 L D 11.6 L (13.0-17.5) gm/dL Hct 40.5 34.2 L (39.0-53.0) % Plt Count 311 274 (150-450) k/uL Comprehensive Metabolic Panel 10/21/22 10/22/22 Range/Units 18:32 06:32 Sodium 138 137 (137-145) mmol/L Potassium 4.4 5.1 (3.5-5.1) mmol/L Chloride 102 106 (98-107) mmol/L Carbon Dioxide 29 25 (22-30) mmol/L BUN 18 16 (9-20) mg/dL Creatinine 1.11 0.93 (0.66-1.25) mg/dL Glucose 105 H 148 H (74-99) mg/dL Calcium 9.6 8.9 (8.4-10.2) mg/dL AST 29 (17-59) U/L ALT 24 (4-49) U/L Alkaline Phosphatase 77 (38-126) U/L Total Protein 6.8 (6.3-8.2) g/dL Albumin 4.0 (3.5-5.0) g/dL Current Medications Generic Name Dose Route Start Last Admin Trade Name Freq PRN Reason Stop Dose Admin Albuterol/Ipratropium 3 ml 10/22/22 00:00 10/22/22 06:34 Ipratropium-Albuterol 3 Ml Neb INHALATION Not Given RT-Q4H YOLANDA Apixaban 5 mg 10/21/22 21:00 10/21/22 21:06 Apixaban 5 Mg Tab PO 5 mg BID YOLANDA Administration Protocol Budesonide/Formoterol Fumarate 2 puff 10/22/22 08:00 Symbicort 80-4.5 Mcg Inhaler INHALATION RT-BID YOLANDA Methylprednisolone Sodium Succinate 40 mg 10/22/22 06:00 10/22/22 06:42 Methylprednisolone Sod Succi 40 Mg/Ml 1 Ml Vial IV 40 mg Q12H YOLANDA Administration Naloxone HCl 0.2 mg 10/21/22 20:46 Naloxone 0.4 Mg/Ml 1 Ml Vial IV Q2M PRN Opioid Reversal Ondansetron HCl 4 mg 10/21/22 20:46 Ondansetron 4 Mg/2 Ml Vial IVP Q8HR PRN Nausea And Vomiting Intake and Output 10/21/22 10/22/22 10/22/22 22:59 06:59 14:59 Other: Voiding Method Toilet Weight 57.153 kg 57.153 kg 10/22/22 06:32 10/22/22 06:32
--- NOTE | 2022-10-22 14:51 | P.PN ---
Subjective Progress Note Date: 10/22/22 Patient is a 72-year-old male with a PMH of COPD with chronic hypoxic respiratory failure on 2 L is cannula oxygen continuously at home, recent bilateral PEs on Eliquis, recent perforated diverticulitis status post colostomy who presents to the emergency room with complaints of chest discomfort and shortness of breath. The patient reports that his symptoms started yesterday afternoon with right-sided chest discomfort, heavy in nature, 6 out of 10 at maximal intensity, intermittent, somewhat worsened with exertion, lasting 15-20 minutes at a time occurring 3 times daily, with associated shortness of breath, nausea, and dizziness. The patient reports the pain was nonpleuritic. He reports compliance with his Eliquis at home. The patient also reports chronic cough which is productive of whitish phlegm unchanged. In the emergency room, chest x-ray was unremarkable with EKG showing sinus tachycardia at [address]/T-wave changes noted. Laboratory evaluation was remarkable for troponin l ess than 0.012 and creatinine 1.11 with hemoglobin 12.9.. 10/22 Patient was seen and examined. No acute events overnight. Patient reports improvement in his breathing since admission. He denies any chest pain. CBC shows hemoglobin of 11.6. BMP shows glucose 148. Troponins less than 0.023. Influenza, RSV, COVID-19 negative. General: non toxic, no distress, appears at stated age, normal weight Derm: no unusual rashes/lesions, warm Head: atraumatic, normocephalic, symmetric Eyes: EOMI, no lid lag, anicteric sclera ENT: Nose and ears atraumatic Neck: No cervical lymphadenopathy, trachea midline, supple Cardiovascular: S1S2 reg, no murmur, no edema Lungs: CTA bilateral, no rhonchi, no rales, no accessory muscle use Ext: muscle strength 5 out of 5 in all 4 extremities grossly, no gross muscle atrophy, no contractures, Neuro: no gross focal neuro deficits Psych: Alert, oriented, appropriate affect Chest tightness with shortness of breath, ACS versus less likely COPD exacerbation Chronic conditions: Recent history of PE, COPD, A. fib Based on my assessment of this patient, this patient meets a moderate complexity level of care. Patient has a COPD with severe exacerbation or progression of disease which poses a threat to life or bodily function. Chest tightness with shortness of breath, ACS versus less likely COPD exacerbation: Troponins are trended and ACS ruled out. Obtain Echocardiogram. Cardiology on board. Continue Solu-Medrol 40 mg IV twice a day along with DuoNeb scheduled. Telemetry monitoring as ordered. I have reviewed the following fashion consultant sales notes: I have reviewed the results of the following tests: CBC, BMP, troponin, influenza, RSV, COVID-19. I have ordered the following tests: Echocardiogram. I have discussed the care of this patient with the following independent historian: I have independently interpreted the following test below: I have discussed the management of this patient with the following physician: Objective - Vital Signs Vital signs: Vital Signs Temp 97.9 F 10/22/22 07:00 Pulse 89 10/22/22 11:55 Resp 18 10/22/22 07:00 BP 110/64 10/22/22 07:00 Pulse Ox 97 10/22/22 07:00 FiO2 Intake & Output 10/21/22 10/22/22 10/22/22 18:59 06:59 18:59 Weight 57.153 kg 57.153 kg Other: Voiding Method Toilet - Labs CBC & Chem 7: 10/22/22 06:32 10/22/22 06:32 Labs: Abnormal Lab Results - Last 24 Hours (Table) 10/21/22 10/21/22 10/22/22 Range/Units 18:32 18:32 06:32 RBC 3.76 L (4.30-5.90) m/uL Hgb 12.9 L D 11.6 L (13.0-17.5) gm/dL Hct 34.2 L (39.0-53.0) % Lymphocytes # 0.7 L (1.0-4.8) k/uL Glucose 105 H (74-99) mg/dL 10/22/22 Range/Units 06:32 RBC (4.30-5.90) m/uL Hgb (13.0-17.5) gm/dL Hct (39.0-53.0) % Lymphocytes # (1.0-4.8) k/uL Glucose 148 H (74-99) mg/dL
--- NOTE | 2022-10-22 16:50 | CA ---
Transthoracic Echo Report Name: Martell Steven Age: 72 Gender: M : 1950 Exam Date: 10/22/2022 11:59 Exam Location: [place] [facility] Ht (in): 65 Wt (lb): 125 Ordering Physician: Hermelinda Tubbs Attending/Referring Phys: [id number], Suly [employer]ile Processing Technologist Divya Ellsworth [facility] Procedure CPT: Indications: LV function, CP Cardiac Hx: Technical Quality: Fair Contrast 1: Total Dose (mL): Contrast 2: Total Dose (mL): MEASUREMENTS (Male / Female) Normal Values 2D ECHO LV Diastolic Diameter PLAX 4.4 cm 4.2 - 5.9 / 3.9 - 5.3 cm LV Systolic Diameter PLAX 3.6 cm IVS Diastolic Thickness 0.7 cm 0.6 - 1.0 / 0.6 - 0.9 cm LVPW Diastolic Thickness 0.7 cm 0.6 - 1.0 / 0.6 - 0.9 cm LV Relative Wall Thickness 0.3 RV Internal Dim ED PLAX 3.3 cm DOPPLER Mitral E Point Velocity 80.0 cm/s Mitral A Point Velocity 101.3 cm/s Mitral E to A Ratio 0.8 MV Deceleration Time 191.5 ms LV E' Lateral Velocity 11.2 cm/s Mitral E to LV E' Lateral Ratio 7.1 LV E' Septal Velocity 9.3 cm/s Mitral E to LV E' Septal Ratio 8.6 TR Peak Velocity 166.8 cm/s TR Peak Gradient 11.1 mmHg Right Atrial Pressure 3.0 mmHg Pulmonary Artery Systolic Pressu 14.1 mmHg Right Ventricular Systolic Press 14.1 mmHg FINDINGS Left Ventricle Limite study. Normal Left ventricular size, wall thickness, systolic function with no obvious regional wall motion abnormalities. Left ventricular ejection fraction is estimated at 50-55%. Right Ventricle Mild right ventricular dilatation. Normal right ventricular global systolic function. Right Atrium Left Atrium Mitral Valve Aortic Valve Tricuspid Valve Structurally normal tricuspid valve. Mild tricuspid regurgitation. Pulmonic Valve Pericardium Aorta CONCLUSIONS Normal LV systolic function Previewed by: Dr. Joseluis Post MD (Electronically Signed) Final Date: 22 October 2022 16:49
[2022-10-22] MEDS ORDERED: ATORVASTATIN 20 MG TAB PO SCH (21:00)
[2022-10-22] MEDS ORDERED: MORPHINE SULFATE 2 MG/ML SYRINGE IVP PRN (22:34)
[2022-10-23] MEDS: IPRATROPIUM-ALBUTEROL 3 ML NEB INHALATION SCH ×3 (00:33→08:07)
[2022-10-23] MEDS: methylPREDNISolone SOD SUCCI 40 MG/ML 1 ML VIAL IV SCH (05:47)
[2022-10-23 07:51] VITALS: BP 128/63; RESP 18; TEMP 97.8
[2022-10-23 07:56] LABS: Chol/HDL Ratio 3.35 Ratio; LDL Cholesterol,Calculated 166.7 mg/dL (0.0-131.0); VLDL Calculation 10.76 mg/dL (5.00-40.00)
[2022-10-23] MEDS: SYMBICORT 80-4.5 MCG INHALER INHALATION SCH (08:07)
[2022-10-23 08:19] VITALS: PULSE 88
[2022-10-23] MEDS: APIXABAN 5 MG TAB PO SCH (08:54)
--- NOTE | 2022-10-23 12:24 | P.DS ---
Providers Date of admission: 10/21/22 20:47 Expected date of discharge: 10/23/22 Attending physician: Jose Alford MD Consults: 10/21/22 22:32 Consult Physician Urgent Consulting Provider: Azam Gonzalez Consult Reason/Comments: chest pain Do you want consulting provider notified?: Yes Primary care physician: [facility] Hospital Course: Patient is a 72-year-old male with a PMH of COPD with chronic hypoxic respiratory failure on 2 L is cannula oxygen continuously at home, recent bilateral PEs on Eliquis, recent perforated diverticulitis status post colostomy who presents to the emergency room with complaints of chest discomfort and shortness of breath. The patient reports that his symptoms started yesterday afternoon with right-sided chest discomfort, heavy in nature, 6 out of 10 at maximal intensity, intermittent, somewhat worsened with exertion, lasting 15-20 minutes at a time occurring 3 times daily, with associated shortness of breath, nausea, and dizziness. The patient reports the pain was nonpleuritic. He reports compliance with his Eliquis at home. The patient also reports chronic cough which is productive of whitish phlegm unchanged. In the emergency room, chest x-ray was unremarkable with EKG showing sinus tachycardia at [address]/T-wave changes noted. Laboratory evaluation was remarkable for troponin less than 0.012 and creatinine 1.11 with hemoglobin 12.9.. 10/22 Patient was seen and examined. No acute events overnight. Patient reports improvement in his breathing since admission. He denies any chest pain. CBC shows hemoglobin of 11.6. BMP shows glucose 148. Troponins less than 0.023. Influenza, RSV, COVID-19 negative. 10/23 Patient was seen and examined. He reports improvement in his breathing. He denies any chest pain. Echocardiogram shows normal LV systolic function. Case was discussed with Dr. Post who cleared the patient for disharge. He will be discharged home with a slow Prednisone taper. Follow up with Pulmonology and Cardiology in 1 week. Pertinent studies include chest x-ray, echocardiogram. General: non toxic, no distress, appears at stated age, normal weight Derm: no unusual rashes/lesions, warm Head: atraumatic, normocephalic, symmetric Eyes: EOMI, no lid lag, anicteric sclera ENT: Nose and ears atraumatic Neck: No cervical lymphadenopathy, trachea midline, supple Cardiovascular: S1S2 reg, no murmur, no edema Lungs: CTA bilateral, no rhonchi, no rales, no accessory muscle use Ext: muscle strength 5 out of 5 in all 4 extremities grossly, no gross muscle atrophy, no contractures, Neuro: no gross focal neuro deficits Psych: Alert, oriented, appropriate affect Discharge diagnosis: Chest tightness with shortness of breath, ACS versus less likely COPD exacerbation Chronic conditions: Recent history of PE, COPD, A. fib This complex discharge took 35 minutes to complete. Patient Condition at Discharge: Stable Plan - Discharge Summary New Discharge Prescriptions: New Atorvastatin [Lipitor] 20 mg PO HS #30 tab predniSONE See Taper PO DIRECTED #30 tab Continue Ipratropium-Albuterol Nebulize [Duoneb 0.5 mg-3 mg/3 ml Soln] 3 ml INHALATION RT-QID PRN PRN Reason: Shortness Of Breath predniSONE 5 mg PO DAILY Albuterol Sulfate [Albuterol Sulfate Hfa] 1 - 2 puff PO RT-Q6H PRN PRN Reason: Shortness Of Breath Fluticasone Propion/Salmeterol [Advair 250-50 Diskus] 1 puff INHALATION RT- BID Apixaban [Eliquis] 5 mg PO BID Discharge Medication List Ipratropium-Albuterol Nebulize [Duoneb 0.5 mg-3 mg/3 ml Soln] 3 ml INHALATION RT-QID PRN 07/30/21 [History] Albuterol Sulfate [Albuterol Sulfate Hfa] 1 - 2 puff PO RT-Q6H PRN 10/21/22 [History] Apixaban [Eliquis] 5 mg PO BID 10/21/22 [History] Fluticasone Propion/Salmeterol [Advair 250-50 Diskus] 1 puff INHALATION RT-BID 10/21/22 [History] predniSONE 5 mg PO DAILY 10/21/22 [History] Atorvastatin [Lipitor] 20 mg PO HS #30 tab 10/23/22 [Rx] predniSONE See Taper PO DIRECTED #30 tab 10/23/22 [Rx] Follow up Appointment(s)/Referral(s): Maico Anders MD [Primary Care Provider] - 1 Week Joseluis Post MD [STAFF PHYSICIAN] - 1 Week Carrie Faulkner MD [STAFF PHYSICIAN] - 1 Week Activity/Diet/Wound Care/Special Instructions: Prednisone taper: 40 mg by mouth daily for 3 days, 30 mg by mouth daily for 3 days, 20 mg by mouth daily for 3 days, 10 mg by mouth daily for 3 days followed by your home medication of 5 mg by mouth daily. Discharge Disposition: HOME SELF-CARE
--- NOTE | 2022-10-23 12:38 | PN ---
PROGRESS NOTE SUBJECTIVE: Martell is a 72-year-old gentleman with history of COPD that is admitted to the hospital with COPD exacerbation and also had chest pain, for which we were consulted. His chest discomfort has resolved and his primary problem seems to be symptoms related to his COPD exacerbation. This morning, he is feeling better and he is stable for discharge. He had an echocardiogram on this admission that did not reveal any new wall motion abnormalities. He had a stress test in November of 2021 that did not reveal any ischemia. PHYSICAL EXAMINATION: GENERAL: Comfortable at rest. VITAL SIGNS: Stable. CHEST: Reveals occasional rhonchi bilaterally. HEART: Reveals first and second heart sounds. No gallop. No murmur. ABDOMEN: Soft. EXTREMITIES: Examination of the extremities did not reveal any edema. Peripheral pulses are palpable. LABORATORY DATA: Lipid profile shows that the LDL cholesterol is 168. ASSESSMENT: 1. Atypical chest pain. 2. Chronic obstructive pulmonary disease exacerbation. 3. Dyslipidemia. PLAN: I will treat the patient with statins; stable for discharge. Arrange outpatient followup through my office and maybe consider an outpatient stress test. MMODL / IJN: [id number] /
== END 2022-10-23 11:40 | disposition home or self-care (01) ==
LOC: EC 18:08 → 6NMEDSUR 20:47
PROVIDERS: ADMIT Internal Medicine; ATTEND Internal Medicine
DX: J44.1 Chronic obstructive pulmonary disease with (acute) exacerbation (principal); R07.89 Other chest pain; J44.9 Chronic obstructive pulmonary disease, unspecified; J96.11 Chronic respiratory failure with hypoxia; Z99.81 Dependence on supplemental oxygen; R05.3 Chronic cough; I48.91 Unspecified atrial fibrillation; R00.0 Tachycardia, unspecified; Z87.891 Personal history of nicotine dependence; I07.1 Rheumatic tricuspid insufficiency; I26.99 Other pulmonary embolism without acute cor pulmonale; K21.9 Gastro-esophageal reflux disease without esophagitis; R10.10 Upper abdominal pain, unspecified; F40.240 Claustrophobia; Z87.19 Personal history of other diseases of the digestive system; Z80.9 Family history of malignant neoplasm, unspecified; Z79.01 Long term (current) use of anticoagulants; Z79.52 Long term (current) use of systemic steroids; Z79.899 Other long term (current) drug therapy; Z79.51 Long term (current) use of inhaled steroids
CPT/HCPCS: 96376 ×2; 96375; 96374; 99285; 36415; 94640 ×4; 93005; 93308; 80061; 80053; 80048; 83735; 84484 ×2; 85025 ×2; 85610; 85730; 87636; 71046; G0378 ×3; J2920 ×2; J2930; J2270

== ENCOUNTER 2022-11-03 16:23 | Emergency (ER) | payer MEDICARE, OTHER ==
[2022-11-03 17:47] LABS: Basophils % (A) 0 %; Eosinophils % (A) 0 %; HGB 13.7 gm/dL (13.0-17.5); Hypochromasia Slight; Lymphocytes # (A) 2.2 k/uL (1.0-4.8); Lymphocytes % (A) 17 %; MCH 29.8 pg (25.0-35.0); MCHC 31.8 g/dL (31.0-37.0); MCV 93.9 fL (80.0-100.0); Mean Platelet Volume 7.3; Monocytes # (A) 0.7 k/uL (0-1.0); Monocytes % (A) 5 %; Neutrophils # (A) 10.1 k/uL (1.3-7.7); Neutrophils % (A) 77 %; Platelet Count 298 k/uL (150-450); RBC 4.58 m/uL (4.30-5.90); RDW 14.1 % (11.5-15.5); WBC 13.1 k/uL (3.8-10.6)
[2022-11-03 17:57] LABS: ALT 28 U/L (4-49); AST 28 U/L (17-59); African American GFR (CKD) 68 (>60 ml/min/1.73 sqM); Albumin 3.7 g/dL (3.5-5.0); Alkaline Phosphatase 78 U/L (38-126); Anion Gap 7 mmol/L; Blood Urea Nitrogen 34 mg/dL (9-20); Calcium 9.5 mg/dL (8.4-10.2); Carbon Dioxide 32 mmol/L (22-30); Chloride 106 mmol/L (98-107); Glucose 115 mg/dL (74-99); Non-African American GFR(CKD) 59 (>60 ml/min/1.73 sqM); Potassium 5.6 mmol/L (3.5-5.1); Sodium 145 mmol/L (137-145); Total Bilirubin 0.4 mg/dL (0.2-1.3); Total Protein 6.5 g/dL (6.3-8.2)
[2022-11-03 18:10] LABS: INR 0.9 (<1.2); Prothrombin Time 9.4 sec (9.0-12.0)
[2022-11-03 18:22] LABS: Partial Thromboplastin Time 21.8 sec (22.0-30.0)
[2022-11-03] MEDS ORDERED: SODIUM CHLORIDE 0.9% 1,000 ML IV ONE (19:20)
--- NOTE | 2022-11-03 19:21 | ED ---
GI Bleed HPI - General Chief complaint: GI Bleed Stated complaint: colostomy issues Time Seen by Provider: 11/03/22 16:49 Source: patient Mode of arrival: ambulatory Limitations: no limitations - History of Present Illness Initial comments: Martell a 72-year-old male with a history of colectomy due to diverticulitis performed earlier this year. Patient presents the ER today after seeing some blood in his ostomy bag. reports that they change the bag every 3 days the empty it multiple times a day. She states that today they noted some red blood and that the stoma seems to be irritated they contacted her surgeon's office who advised him come to the ER for evaluation. Patient denies any abdominal pain. Patient is on oral anticoagulant therapy. Patient's had no dark tarry stools, no melena. - Related Data Home Medications Medication Instructions Recorded Confirmed Ipratropium-Albuterol Nebulize 3 ml INHALATION RT-QID PRN 07/30/21 10/21/22 [Duoneb 0.5 mg-3 mg/3 ml Soln] Albuterol Sulfate [Albuterol 1 - 2 puff PO RT-Q6H PRN 10/21/22 10/21/22 Sulfate Hfa] Apixaban [Eliquis] 5 mg PO BID 10/21/22 10/21/22 Fluticasone Propion/Salmeterol 1 puff INHALATION RT-BID 10/21/22 10/21/22 [Advair 250-50 Diskus] predniSONE 5 mg PO DAILY 10/21/22 10/21/22 Previous Rx's Medication Instructions Recorded Atorvastatin [Lipitor] 80 mg PO HS #90 tab 10/23/22 predniSONE See Taper PO DIRECTED #30 tab 10/23/22 Allergies Allergy/AdvReac Type Severity Reaction Status Date / Time No Known Allergies Allergy Verified 11/03/22 16:34 Review of Systems ROS Statement: Those systems with pertinent positive or pertinent negative responses have been documented in the HPI. ROS Other: All systems not noted in ROS Statement are negative. Past Medical History Past Medical History: Cancer, COPD, GERD/Reflux Additional Past Medical History / Comment(s): positional upper abdominal pain stated when he changes position from laying to sitting and standing. History of Any Multi-Drug Resistant Organisms: None Reported Past Surgical History: Orthopedic Surgery, Tonsillectomy Additional Past Surgical History / Comment(s): Right shoulder arthroscopy. Colonoscopy. EGD, colostomy Past Anesthesia/Blood Transfusion Reactions: No Reported Reaction Additional Past Anesthesia/Blood Transfusion Reaction / Comment(s): Pt has CLAUSTROPHOBIA Past Psychological History: No Psychological Hx Reported Smoking Status: Former smoker Past Alcohol Use History: None Reported Past Drug Use History: None Reported - Past Family History Father Family Medical History: Cancer Mother Family Medical History: Cancer Additional Family Medical History / Comment(s): Mother in her 50s with some form of cancer. Pt/spouse do not recall type of cancer. General Exam - General Exam Comments Initial Comments: Physical Exam GENERAL: Patient is well-developed and well-nourished. Patient is nontoxic and well-hydrated and is in no distress. HENT: Normocephalic, Atraumatic. EYES: PERRL, EOMI PULMONARY: Unlabored respirations. CARDIOVASCULAR: RRR Warm and well perfused extremities ABDOMEN: LLQ stoma, macerated tissue, some dark blood in overlying stool, no active bleeding SKIN: No rashes or bruising : Deferred NEUROLOGIC: Alert and oriented Normal speech Normal gait MUSCULOSKELETAL: Moving all extremities with no apparent injury PSYCHIATRIC: No SI/HI Limitations: no limitations Course Vital Signs 11/03/22 11/03/22 11/03/22 16:30 16:33 18:00 Temperature 98.8 F Pulse Rate 103 H 101 H 72 Respiratory 26 H 16 16 Rate Blood Pressure 117/68 116/68 127/70 O2 Sat by Pulse 98 99 100 Oximetry Medical Decision Making - Medical Decision Making Was pt. sent in by a medical professional or institution (, PA, CATCHER HELPER, urgent care, hospital, or fdc...) When possible be specific @ -No Did you speak to anyone other than the patient for history (EMS, parent, family, police, friend...)? What history was obtained from this source @ -No Did you review nursing and triage notes (agree or disagree)? Why? @ -I reviewed and agree with nursing and triage notes Were old charts reviewed (outside hosp., previous admission, EMS record, old EKG, old radiological studies, urgent care reports/EKG's, fdc records)? Report findings @ -Previous admissions were reviewed Differential Diagnosis (chest pain, altered mental status, abdominal pain women, abdominal pain men, vaginal bleeding, weakness, fever, dyspnea, syncope, headache, dizziness, GI bleed, back pain, seizure, CVA, palpatations, mental health, musculoskeletal)? @ -not applicable EKG interpreted by me (3pts min.). @ -As above X-rays interpreted by me (1pt min.). @ -None done CT interpreted by me (1pt min.). @ -None done U/S interpreted by me (1pt. min.). @ -None done What testing was considered but not performed or refused? (CT, X-rays, U/S, labs)? Why? @ -Stool guaiac, was not completed as there was an obvious source of blood from the macerated tissue of the stoma What meds were considered but not given or refused? Why? @ -None Did you discuss the management of the patient with other professionals (professionals i.e. , PA, CATCHER HELPER, lab, RT, psych nurse, clinical social work aide, patient care secretary, teacher, president and chief commercial officer, case reviewer)? Give summary @ -No Was smoking cessation discussed for >3mins.? @ -No Was critical care preformed (if so, how long)? @ -No Were there social determinants of health that impacted care today? How? (Homelessness, low income, unemployed, alcoholism, drug addiction, transportation, low edu. Level, literacy, decrease access to med. care, alf, rehab)? @ -No Was there de-escalation of care discussed even if they declined (Discuss DNR or withdrawal of care, Hospice)? DNR status @ -No What co-morbidities impacted this encounter? (DM, HTN, Smoking, COPD, CAD, Cancer, CVA, ARF, Chemo, Hep., AIDS, mental health diagnosis, sleep apnea, morbid obesity)? @ -None Was patient admitted / discharged? Hospital course, mention meds given and route, prescriptions, significant lab abnormalities, going to OR and other pertinent info. @ -hospital course Undiagnosed new problem with uncertain prognosis? @ -[No] Drug Therapy requiring intensive monitoring for toxicity (Heparin, Nitro, Insulin, Cardizem)? @ -[No] Were any procedures done? @ -[No] Diagnosis/symptom? @ -Contact dermatitis of stoma due to stool exposure Acute, or Chronic, or Acute on Chronic? @ -Acute on chronic Uncomplicated (without systemic symptoms) or Complicated (systemic symptoms)? @ -Uncomplicated Side effects of treatment? @ -[No] Exacerbation, Progression, or Severe Exacerbation? @ -[No] Poses a threat to life or bodily function? How? (Chest pain, [place], ME, pneumonia, PE, COPD, DKA, ARF, appy, cholecystitis, CVA, Diverticulitis, Homicidal, Suicidal, threat to staff... and all critical care pts) @ -[No] - Lab Data Result diagrams: 11/03/22 17:30 11/03/22 20:40 Lab Results 11/03/22 11/03/22 11/03/22 Range/Units 17:30 17:30 17:30 WBC 13.1 H (3.8-10.6) k/uL RBC 4.58 (4.30-5.90) m/uL Hgb 13.7 (13.0-17.5) gm/dL Hct 43.0 (39.0-53.0) % MCV 93.9 (80.0-100.0) fL MCH 29.8 (25.0-35.0) pg MCHC 31.8 (31.0-37.0) g/dL RDW 14.1 (11.5-15.5) % Plt Count 298 (150-450) k/uL MPV 7.3 Neutrophils % 77 % Lymphocytes % 17 % Monocytes % 5 % Eosinophils % 0 % Basophils % 0 % Neutrophils # 10.1 H (1.3-7.7) k/uL Lymphocytes # 2.2 (1.0-4.8) k/uL Monocytes # 0.7 (0-1.0) k/uL Eosinophils # 0.0 (0-0.7) k/uL Basophils # 0.0 (0-0.2) k/uL Hypochromasia Slight PT 9.4 (9.0-12.0) sec INR 0.9 (<1.2) APTT 21.8 L (22.0-30.0) sec Sodium 145 (137-145) mmol/L Potassium 5.6 H (3.5-5.1) mmol/L Chloride 106 (98-107) mmol/L Carbon Dioxide 32 H (22-30) mmol/L Anion Gap 7 mmol/L BUN 34 H (9-20) mg/dL Creatinine 1.23 (0.66-1.25) mg/dL Est GFR (CKD-EPI)AfAm 68 (>60 ml/min/1.73 sqM) Est GFR (CKD-EPI)NonAf 59 (>60 ml/min/1.73 sqM) Glucose 115 H (74-99) mg/dL Lactic Ac Sepsis Rflx Plasma Lactic Acid Luciano (0.7-2.0) mmol/L Calcium 9.5 (8.4-10.2) mg/dL Total Bilirubin 0.4 (0.2-1.3) mg/dL AST 28 (17-59) U/L ALT 28 (4-49) U/L Alkaline Phosphatase 78 (38-126) U/L Troponin I (0.000-0.034) ng/mL Total Protein 6.5 (6.3-8.2) g/dL Albumin 3.7 (3.5-5.0) g/dL Blood Type Blood Type Recheck Bld Type Recheck Status Antibody Screen Spec Expiration Date 11/03/22 11/03/22 11/03/22 Range/Units 17:30 17:30 17:30 WBC (3.8-10.6) k/uL RBC (4.30-5.90) m/uL Hgb (13.0-17.5) gm/dL Hct (39.0-53.0) % MCV (80.0-100.0) fL MCH (25.0-35.0) pg MCHC (31.0-37.0) g/dL RDW (11.5-15.5) % Plt Count (150-450) k/uL MPV Neutrophils % % Lymphocytes % % Monocytes % % Eosinophils % % Basophils % % Neutrophils # (1.3-7.7) k/uL Lymphocytes # (1.0-4.8) k/uL Monocytes # (0-1.0) k/uL Eosinophils # (0-0.7) k/uL Basophils # (0-0.2) k/uL Hypochromasia PT (9.0-12.0) sec INR (<1.2) APTT (22.0-30.0) sec Sodium (137-145) mmol/L Potassium (3.5-5.1) mmol/L Chloride (98-107) mmol/L Carbon Dioxide (22-30) mmol/L Anion Gap mmol/L BUN (9-20) mg/dL Creatinine (0.66-1.25) mg/dL Est GFR (CKD-EPI)AfAm (>60 ml/min/1.73 sqM) Est GFR (CKD-EPI)NonAf (>60 ml/min/1.73 sqM) Glucose (74-99) mg/dL Lactic Ac Sepsis Rflx Plasma Lactic Acid Luciano 3.2 H* (0.7-2.0) mmol/L Calcium (8.4-10.2) mg/dL Total Bilirubin (0.2-1.3) mg/dL AST (17-59) U/L ALT (4-49) U/L Alkaline Phosphatase (38-126) U/L Troponin I <0.012 (0.000-0.034) ng/mL Total Protein (6.3-8.2) g/dL Albumin (3.5-5.0) g/dL Blood Type A Positive Blood Type Recheck A Pos Bld Type Recheck Status No Antibody Screen NEGATIVE Spec Expiration Date 11/06/2022 - 232911/03/22 11/03/22 Range/Units 17:58 20:40 WBC (3.8-10.6) k/uL RBC (4.30-5.90) m/uL Hgb (13.0-17.5) gm/dL Hct (39.0-53.0) % MCV (80.0-100.0) fL MCH (25.0-35.0) pg MCHC (31.0-37.0) g/dL RDW (11.5-15.5) % Plt Count (150-450) k/uL MPV Neutrophils % % Lymphocytes % % Monocytes % % Eosinophils % % Basophils % % Neutrophils # (1.3-7.7) k/uL Lymphocytes # (1.0-4.8) k/uL Monocytes # (0-1.0) k/uL Eosinophils # (0-0.7) k/uL Basophils # (0-0.2) k/uL Hypochromasia PT (9.0-12.0) sec INR (<1.2) APTT (22.0-30.0) sec Sodium 140 (137-145) mmol/L Potassium 4.1 (3.5-5.1) mmol/L Chloride 106 (98-107) mmol/L Carbon Dioxide 33 H (22-30) mmol/L Anion Gap 1 mmol/L BUN 35 H (9-20) mg/dL Creatinine 1.08 (0.66-1.25) mg/dL Est GFR (CKD-EPI)AfAm 79 (>60 ml/min/1.73 sqM) Est GFR (CKD-EPI)NonAf 68 (>60 ml/min/1.73 sqM) Glucose 103 H (74-99) mg/dL Lactic Ac Sepsis Rflx Y Plasma Lactic Acid Luciano (0.7-2.0) mmol/L Calcium 8.6 (8.4-10.2) mg/dL Total Bilirubin 0.3 (0.2-1.3) mg/dL AST 24 (17-59) U/L ALT 27 (4-49) U/L Alkaline Phosphatase 64 (38-126) U/L Troponin I (0.000-0.034) ng/mL Total Protein 5.6 L (6.3-8.2) g/dL Albumin 3.2 L (3.5-5.0) g/dL Blood Type Blood Type Recheck Bld Type Recheck Status Antibody Screen Spec Expiration Date Disposition Clinical Impression: Bleeding from colostomy stoma Disposition: HOME SELF-CARE Condition: Stable Additional Instructions: Follow-up with Dr. Dumas for reevaluation of bleeding/breakdown of tissue from stoma Is patient prescribed a controlled substance at d/c from ED?: No Referrals: Maico Anders MD [Primary Care Provider] - 1-2 days
[2022-11-03] MEDS ORDERED: BACITRACIN OINT 1 EACH PACKET TOPICAL ONE (19:40)
[2022-11-03 21:16] LABS: ALT 27 U/L (4-49); AST 24 U/L (17-59); African American GFR (CKD) 79 (>60 ml/min/1.73 sqM); Albumin 3.2 g/dL (3.5-5.0); Alkaline Phosphatase 64 U/L (38-126); Anion Gap 1 mmol/L; Blood Urea Nitrogen 35 mg/dL (9-20); Calcium 8.6 mg/dL (8.4-10.2); Carbon Dioxide 33 mmol/L (22-30); Chloride 106 mmol/L (98-107); Glucose 103 mg/dL (74-99); Non-African American GFR(CKD) 68 (>60 ml/min/1.73 sqM); Potassium 4.1 mmol/L (3.5-5.1); Sodium 140 mmol/L (137-145); Total Bilirubin 0.3 mg/dL (0.2-1.3); Total Protein 5.6 g/dL (6.3-8.2)
[2022-11-03 21:42] VITALS: BP 120/85; PULSE 60; RESP 19; TEMP 97.8
== END 2022-11-03 21:42 | disposition home or self-care (01) ==
LOC: EC 16:23
DX: K94.01 Colostomy hemorrhage (principal); J44.9 Chronic obstructive pulmonary disease, unspecified; Z87.891 Personal history of nicotine dependence; Z79.51 Long term (current) use of inhaled steroids
CPT/HCPCS: 36415; 80053; 83605; 84484; 85025; 85610; 85730; 86850; 86900; 86901; 96360; 96361; 99285

== ENCOUNTER → 2022-12-05 | Outpatient (CLI) | payer MEDICARE, OTHER ==
--- NOTE | 2022-12-05 11:14 | US ---
EXAMINATION TYPE: US carotid duplex BILAT DATE OF EXAM: 12/05/2022 COMPARISON: NONE CLINICAL INDICATION: Male, 72 years old with history of R42 DIZZINESS AND GIDDINESS; Dizziness TECHNIQUE: Carotid duplex ultrasound examination. Indirect Doppler criteria was utilized. FINDINGS: EXAM MEASUREMENTS: RIGHT: Peak Systolic Velocity (PSV) cm/sec ----- Right CCA: 66.8 ----- Right ICA: 68.6 ----- Right ECA: 86.4 ICA/CCA ratio: 1.0 RIGHT: End Diastole cm/sec ----- Right CCA: 17.1 ----- Right ICA: 21.5 ----- Right ECA: 12.8 LEFT: Peak Systolic Velocity (PSV) cm/sec ----- Left CCA: 71.2 ----- Left ICA: 74.7 ----- Left ECA: 64.2 ICA/CCA ratio: 1.0 LEFT: End Diastole cm/sec ----- Left CCA: 15.4 ----- Left ICA: 25.0 ----- Left ECA: 11.0 VERTEBRALS (direction of flow): Right Vertebral: Antegrade Left Vertebral: Antegrade Rhythm: Normal DATA ANALYTICS SPECIALIST NOTES: Mild plaque bilateral bifurcations. No evidence of increased velocities IMPRESSION: No ultrasound evidence for hemodynamically significant stenosis of the visualized bilateral carotid a rterial systems. Criteria for Assigning % of Stenosis / Diameter reduction (Estimation based on the indirect measurements of the internal carotid artery velocities (ICA PSV). 1. Normal (no stenosis)=ICA PSV < 125 cm/s: ratio < 2.0: ICA EDV<40 cm/s. 2. Less than 50% stenosis=ICA PSV < 125 cm/s: ratio < 2.0: ICA EDV<40 cm/s. 3. 50 to 69% stenosis=ICA PSV of 125 to 230 cm/s: ration 2.0 ? 4.0: ICA EDV 40-100 cm/s. 4. Greater than 70% stenosis to near occlusion= ICA PSV > 230 cm/s: ratio > 4.0: ICA EDV > 100 cm/s. 5. Near occlusion= ICA PSV velocities may be low or undetectable: variable ratio and ICA EDV. 6. Total occlusion=unable to detect flow.
== END | disposition home or self-care (01) ==
LOC: RADUSWWP 10:42
PROVIDERS: ATTEND Family Medicine
DX: R42 Dizziness and giddiness (principal)
CPT/HCPCS: 93880

== ENCOUNTER 2022-12-14 16:58 | Emergency (ER) | payer MEDICARE, OTHER ==
[2022-12-14 17:11] VITALS: TEMP 98.1
--- NOTE | 2022-12-14 17:12 | ED ---
SOB HPI - General Chief Complaint: Shortness of Breath Stated Complaint: SOB, cough Time Seen by Provider: 12/14/22 17:12 Source: patient Mode of arrival: wheelchair Limitations: no limitations - History of Present Illness Initial Comments: 72-year-old male with history COPD presenting with chief complaint of shortness of breath. Patient has been experiencing a productive cough and increasing shortness of breath for several days. Denies chest pain, palpitations, fevers, nausea, vomiting. - Related Data Home Medications Medication Instructions Recorded Confirmed Ipratropium-Albuterol Nebulize 3 ml INHALATION RT-QID PRN 07/30/21 12/15/22 [Duoneb 0.5 mg-3 mg/3 ml Soln] Albuterol Sulfate [Albuterol 1 - 2 puff INHALATION RT-Q6H PRN 10/21/22 12/15/22 Sulfate Hfa] Apixaban [Eliquis] 5 mg PO BID 10/21/22 12/15/22 Fluticasone Propion/Salmeterol 1 puff INHALATION RT-BID 10/21/22 12/15/22 [Advair 250-50 Diskus] Isosorbide Mononitrate ER [Imdur] 30 mg PO DAILY 12/15/22 12/15/22 Theophylline 12 Hour [Robe-Dur] 300 mg PO DAILY 12/15/22 12/15/22 predniSONE 10 mg PO DAILY 12/15/22 12/15/22 Previous Rx's Medication Instructions Recorded Atorvastatin [Lipitor] 80 mg PO HS #90 tab 10/23/22 Allergies Allergy/AdvReac Type Severity Reaction Status Date / Time No Known Allergies Allergy Verified 12/15/22 14:23 Review of Systems ROS Statement: Those systems with pertinent positive or pertinent negative responses have been documented in the HPI. ROS Other: All systems not noted in ROS Statement are negative. Past Medical History Past Medical History: Cancer, COPD, GERD/Reflux Additional Past Medical History / Comment(s): positional upper abdominal pain stated when he changes position from laying to sitting and standing. History of Any Multi-Drug Resistant Organisms: None Reported Past Surgical History: Orthopedic Surgery, Tonsillectomy Additional Past Surgical History / Comment(s): Right shoulder arthroscopy. Colonoscopy. EGD, colostomy Past Anesthesia/Blood Transfusion Reactions: No Reported Reaction Additional Past Anesthesia/Blood Transfusion Reaction / Comment(s): Pt has CLAUSTROPHOBIA Past Psychological History: No Psychological Hx Reported Smoking Status: Former smoker Past Alcohol Use History: None Reported Past Drug Use History: None Reported - Past Family History Father Family Medical History: Cancer Mother Family Medical History: Cancer Additional Family Medical History / Comment(s): Mother in her 50s with some form of cancer. Pt/spouse do not recall type of cancer. General Exam - General Exam Comments Initial Comments: Visual Physical Exam Vital signs reviewed General: Well-appearing, nontoxic, no acute distress. Head: Normocephalic, atraumatic Eyes: PERRLA, EOMI ENT: Airway patent Chest: Nonlabored breathing Skin: No visual rash, normal skin tone Neuro: Alert and oriented 3 Musculoskeletal: No gross abnormalities Limitations: no limitations General appearance: alert, in no apparent distress Head exam: Present: atraumatic, normocephalic, normal inspection Eye exam: Present: normal appearance, EOMI Neck exam: Present: normal inspection, full ROM Respiratory exam: Present: wheezes. Absent: rales, rhonchi, stridor Cardiovascular Exam: Present: regular rate, normal rhythm, normal heart sounds. Absent: systolic murmur, diastolic murmur, rubs, gallop, clicks Neurological exam: Present: alert, oriented X3, CN II-XII intact Psychiatric exam: Present: normal affect, normal mood Skin exam: Present: warm, dry, intact, normal color. Absent: rash Course Vital Signs 12/14/22 12/14/22 12/14/22 17:04 20:00 20:13 Temperature 98.1 F Pulse Rate 112 H 104 H 104 H Respiratory 24 Rate Blood Pressure 109/70 O2 Sat by Pulse 96 Oximetry 12/14/22 12/14/22 12/14/22 20:47 21:02 21:14 Temperature Pulse Rate 91 96 100 Respiratory 18 Rate Blood Pressure 135/86 O2 Sat by Pulse 97 Oximetry Medical Decision Making - Medical Decision Making Was pt. sent in by a medical professional or institution (, PA, ELECTRICAL PROSPECTING OPERATOR, urgent care, hospital, or long-term...) When possible be specific @ -No Did you speak to anyone other than the patient for history (EMS, parent, family, police, friend...)? What history was obtained from this source @ -No Did you review nursing and triage notes (agree or disagree)? Why? @ -I reviewed and agree with nursing and triage notes Were old charts reviewed (outside hosp., previous admission, EMS record, old EKG, old radiological studies, urgent care reports/EKG's, long-term records)? Report findings @ -No old charts were reviewed Differential Diagnosis (chest pain, altered mental status, abdominal pain women, abdominal pain men, vaginal bleeding, weakness, fever, dyspnea, syncope, headache, dizziness, GI bleed, back pain, seizure, CVA, palpatations, mental health, musculoskeletal)? @ -MDM Differential Dyspnea: Coronary syndrome, arrhythmia, tamponade, asthma, COPD, pulmonary embolism, pneumonia, pneumothorax, pulmonary effusion, anaphylaxis, diabetic ketoacidosis, flailed chest, pulmonary contusion, diaphragmatic rupture, anemia, neuromuscular… this is not meant to be an all-inclusive list. EKG interpreted by me (3pts min.). @ -Sinus rhythm with short IN interval. Ventricular rate 98. IN interval 118. QRS 77. QT 316. QTC 371. X-rays interpreted by me (1pt min.). @ -X-ray shows no acute cardio pulmonary process. COPD changes are noted. CT interpreted by me (1pt min.). @ -None done U/S interpreted by me (1pt. min.). @ -None done What testing was considered but not performed or refused? (CT, X-rays, U/S, labs)? Why? @ -None What meds were considered but not given or refused? Why? @ -None Did you discuss the management of the patient with other professionals (professionals i.e. , PA, ELECTRICAL PROSPECTING OPERATOR, lab, RT, psych nurse, social media marketing analyst, lawyers, teacher, corporate development officer, case investigator)? Give summary @ -No Was smoking cessation discussed for >3mins.? @ -No Was critical care preformed (if so, how long)? @ -No Were there social determinants of health that impacted care today? How? (Homelessness, low income, unemployed, alcoholism, drug addiction, transportation, low edu. Level, literacy, decrease access to med. care, long term, rehab)? @ -No Was there de-escalation of care discussed even if they declined (Discuss DNR or withdrawal of care, Hospice)? DNR status @ -No What co-morbidities impacted this encounter? (DM, HTN, Smoking, COPD, CAD, Cancer, CVA, ARF, Chemo, Hep., AIDS, mental health diagnosis, sleep apnea, morbid obesity)? @ -None Was patient admitted / discharged? Hospital course, mention meds given and route, prescriptions, significant lab abnormalities, going to OR and other pertinent info. @ -72-year-old male history of COPD presenting with chief complaint of shortness of breath. Lungs sounds are diminished on physical exam. Lab work shows no leukocytosis or anemia. Chest x-ray shows no acute process. Patient reports significant improvement after DuoNeb and Solu-Medrol. He would like to be discharged home. Patient is offered admission but he would prefer discharge home. He is given another DuoNeb treatment and started on prednisone for home. Follow-up with PCP. Report back to ER with any new or worsening symptoms. Discussed return parameters and answered all questions. Patient conveyed verbal understanding and agreed to the plan. I discussed this case in detail with my attending Dr. Oneal Undiagnosed new problem with uncertain prognosis? @ -No Drug Therapy requiring intensive monitoring for toxicity (Heparin, Nitro, Insulin, Cardizem)? @ -No Were any procedures done? @ -No Diagnosis/symptom? @ -COPD exacerbation Acute, or Chronic, or Acute on Chronic? @ -Acute on chronic Uncomplicated (without systemic symptoms) or Complicated (systemic symptoms)? @ -uncomplicated Side effects of treatment? @ -No Exacerbation, Progression, or Severe Exacerbation? @ -Exacerbation Poses a threat to life or bodily function? How? (Chest pain, [place], [place], pneumonia, PE, COPD, DKA, ARF, appy, cholecystitis, CVA, Diverticulitis, Homicidal, Suicidal, threat to staff... and all critical care pts) @ -Low likelihood - Lab Data Result diagrams: 12/14/22 17:36 12/14/22 17:36 Lab Results 12/14/22 12/14/22 12/14/22 Range/Units 17:36 17:36 17:36 WBC 8.3 (3.8-10.6) k/uL RBC 4.44 (4.30-5.90) m/uL Hgb 13.3 (13.0-17.5) gm/dL Hct 41.1 (39.0-53.0) % MCV 92.7 (80.0-100.0) fL MCH 30.0 (25.0-35.0) pg MCHC 32.4 (31.0-37.0) g/dL RDW 14.4 (11.5-15.5) % Plt Count 324 (150-450) k/uL MPV 7.5 Neutrophils % 80 % Lymphocytes % 14 % Monocytes % 4 % Eosinophils % 0 % Basophils % 0 % Neutrophils # 6.7 (1.3-7.7) k/uL Lymphocytes # 1.2 (1.0-4.8) k/uL Monocytes # 0.3 (0-1.0) k/uL Eosinophils # 0.0 (0-0.7) k/uL Basophils # 0.0 (0-0.2) k/uL PT 9.8 (9.0-12.0) sec INR 0.9 (<1.2) APTT 23.2 (22.0-30.0) sec Sodium 140 (137-145) mmol/L Potassium 4.8 (3.5-5.1) mmol/L Chloride 104 (98-107) mmol/L Carbon Dioxide 32 H (22-30) mmol/L Anion Gap 4 mmol/L BUN 22 H (9-20) mg/dL Creatinine 1.30 H (0.66-1.25) mg/dL Est GFR (CKD-EPI)AfAm 63 (>60 ml/min/1.73 sqM) Est GFR (CKD-EPI)NonAf 55 (>60 ml/min/1.73 sqM) Glucose 149 H (74-99) mg/dL Plasma Lactic Acid Luciano (0.7-2.0) mmol/L Calcium 9.3 (8.4-10.2) mg/dL Total Bilirubin 0.4 (0.2-1.3) mg/dL AST 42 (17-59) U/L ALT 65 H (4-49) U/L Alkaline Phosphatase 119 (38-126) U/L Troponin I (0.000-0.034) ng/mL Total Protein 6.4 (6.3-8.2) g/dL Albumin 3.7 (3.5-5.0) g/dL Coronavirus (PCR) (Not Detectd) 12/14/22 12/14/22 12/14/22 Range/Units 17:36 17:36 17:59 WBC (3.8-10.6) k/uL RBC (4.30-5.90) m/uL Hgb (13.0-17.5) gm/dL Hct (39.0-53.0) % MCV (80.0-100.0) fL MCH (25.0-35.0) pg MCHC (31.0-37.0) g/dL RDW (11.5-15.5) % Plt Count (150-450) k/uL MPV Neutrophils % % Lymphocytes % % Monocytes % % Eosinophils % % Basophils % % Neutrophils # (1.3-7.7) k/uL Lymphocytes # (1.0-4.8) k/uL Monocytes # (0-1.0) k/uL Eosinophils # (0-0.7) k/uL Basophils # (0-0.2) k/uL PT (9.0-12.0) sec INR (<1.2) APTT (22.0-30.0) sec Sodium (137-145) mmol/L Potassium (3.5-5.1) mmol/L Chloride (98-107) mmol/L Carbon Dioxide (22-30) mmol/L Anion Gap mmol/L BUN (9-20) mg/dL Creatinine (0.66-1.25) mg/dL Est GFR (CKD-EPI)AfAm (>60 ml/min/1.73 sqM) Est GFR (CKD-EPI)NonAf (>60 ml/min/1.73 sqM) Glucose (74-99) mg/dL Plasma Lactic Acid Luciano 1.3 (0.7-2.0) mmol/L Calcium (8.4-10.2) mg/dL Total Bilirubin (0.2-1.3) mg/dL AST (17-59) U/L ALT (4-49) U/L Alkaline Phosphatase (38-126) U/L Troponin I <0.012 (0.000-0.034) ng/mL Total Protein (6.3-8.2) g/dL Albumin (3.5-5.0) g/dL Coronavirus (PCR) Not Detected (Not Detectd) Disposition Clinical Impression: COPD exacerbation Disposition: HOME SELF-CARE Condition: Good Instructions (If sedation given, give patient instructions): COPD (Chronic Obstructive Pulmonary Disease) (ED) Additional Instructions: Follow-up with PCP and rubber tubing splicer. Report back to ER with any new or worsening symptoms. Take medication as prescribed. Is patient prescribed a controlled substance at d/c from ED?: No Referrals: Maico Anders MD [Primary Care Provider] - 1-2 days Arina Pérez MD [STAFF PHYSICIAN] - 1-2 days Time of Disposition: 20:51
[2022-12-14 18:05] LABS: Basophils % (A) 0 %; Eosinophils % (A) 0 %; HCT 41.1 % (39.0-53.0); HGB 13.3 gm/dL (13.0-17.5); Lymphocytes # (A) 1.2 k/uL (1.0-4.8); Lymphocytes % (A) 14 %; MCHC 32.4 g/dL (31.0-37.0); MCV 92.7 fL (80.0-100.0); Mean Platelet Volume 7.5; Monocytes # (A) 0.3 k/uL (0-1.0); Monocytes % (A) 4 %; Neutrophils # (A) 6.7 k/uL (1.3-7.7); Neutrophils % (A) 80 %; Platelet Count 324 k/uL (150-450); RBC 4.44 m/uL (4.30-5.90); RDW 14.4 % (11.5-15.5); WBC 8.3 k/uL (3.8-10.6)
[2022-12-14 18:14] LABS: ALT 65 U/L (4-49); AST 42 U/L (17-59); African American GFR (CKD) 63 (>60 ml/min/1.73 sqM); Albumin 3.7 g/dL (3.5-5.0); Alkaline Phosphatase 119 U/L (38-126); Anion Gap 4 mmol/L; Blood Urea Nitrogen 22 mg/dL (9-20); Calcium 9.3 mg/dL (8.4-10.2); Carbon Dioxide 32 mmol/L (22-30); Chloride 104 mmol/L (98-107); Glucose 149 mg/dL (74-99); INR 0.9 (<1.2); Non-African American GFR(CKD) 55 (>60 ml/min/1.73 sqM); Partial Thromboplastin Time 23.2 sec (22.0-30.0); Potassium 4.8 mmol/L (3.5-5.1); Prothrombin Time 9.8 sec (9.0-12.0); Sodium 140 mmol/L (137-145); Total Bilirubin 0.4 mg/dL (0.2-1.3); Total Protein 6.4 g/dL (6.3-8.2)
--- NOTE | 2022-12-14 18:23 | XR ---
EXAMINATION TYPE: XR chest 2V DATE OF EXAM: 12/14/2022 COMPARISON: 10/21/2022 INDICATION: Difficulty in breathing and shortness of breath, cough TECHNIQUE: Frontal and lateral views of the chest are obtained. FINDINGS: The heart size is normal. The pulmonary vasculature is normal. The lungs are clear. There is hyperinflation flattening the diaphragms compatible with COPD. IMPRESSION: 1. No acute pulmonary process. 2. COPD
[2022-12-14] MEDS ORDERED: IPRATROPIUM-ALBUTEROL 3 ML NEB INHALATION STA ×2 (19:16→20:53)
[2022-12-14] MEDS ORDERED: methylPREDNISolone SOD SUCCI 125 MG/2 ML VIAL IV STA (19:16)
[2022-12-14 20:54] VITALS: BP 135/86; RESP 18
[2022-12-14 21:17] VITALS: PULSE 100
== END 2022-12-14 21:17 | disposition home or self-care (01) ==
LOC: EC 16:58
DX: J44.1 Chronic obstructive pulmonary disease with (acute) exacerbation (principal); Z87.891 Personal history of nicotine dependence; Z79.51 Long term (current) use of inhaled steroids; Z79.01 Long term (current) use of anticoagulants; Z79.899 Other long term (current) drug therapy; Z20.822 Contact with and (suspected) exposure to COVID-19
CPT/HCPCS: 36415; 94640 ×2; 80053; 83605; 84484; 85025; 85610; 85730; 87635; 71046; 99285; 96374; J2930; 93005

== ENCOUNTER 2022-12-22 10:27 | Emergency (ER) | payer MEDICARE, OTHER ==
[2022-12-22] MEDS ORDERED: LORazepam 2 MG/ML INJ IV STA (10:58)
--- NOTE | 2022-12-22 11:53 | XR ---
EXAMINATION TYPE: XR chest 2V DATE OF EXAM: 12/22/2022 COMPARISON: 12/15/2022 HISTORY: Shortness of breath TECHNIQUE: Frontal and lateral views of the chest are obtained. FINDINGS: Scattered senescent parenchymal changes noted. Hyperinflation compatible with COPD. No evidence for infiltrate. No evidence for atelectasis. Heart size is stable. Mediastinal structures are stable and grossly unremarkable. No evidence for hilar prominence. Degenerative changes dorsal spine. IMPRESSION: 1. No evidence for acute pulmonary disease.
[2022-12-22 13:07] LABS: Basophils % (A) 0 %; Eosinophils # (A) 0.2 k/uL (0-0.7); Eosinophils % (A) 1 %; HCT 40.9 % (39.0-53.0); HGB 13.2 gm/dL (13.0-17.5); Lymphocytes # (A) 1.3 k/uL (1.0-4.8); Lymphocytes % (A) 10 %; MCH 29.7 pg (25.0-35.0); MCHC 32.2 g/dL (31.0-37.0); MCV 92.2 fL (80.0-100.0); Mean Platelet Volume 7.5; Monocytes # (A) 0.9 k/uL (0-1.0); Monocytes % (A) 6 %; Neutrophils # (A) 11.2 k/uL (1.3-7.7); Neutrophils % (A) 82 %; Platelet Count 302 k/uL (150-450); RBC 4.43 m/uL (4.30-5.90); WBC 13.6 k/uL (3.8-10.6)
[2022-12-22 13:20] LABS: ALT 40 U/L (4-49); AST 27 U/L (17-59); African American GFR (CKD) 73 (>60 ml/min/1.73 sqM); Albumin 3.2 g/dL (3.5-5.0); Alkaline Phosphatase 88 U/L (38-126); Anion Gap 7 mmol/L; Blood Urea Nitrogen 31 mg/dL (9-20); Calcium 8.8 mg/dL (8.4-10.2); Carbon Dioxide 28 mmol/L (22-30); Chloride 109 mmol/L (98-107); Glucose 131 mg/dL (74-99); Non-African American GFR(CKD) 63 (>60 ml/min/1.73 sqM); Potassium 3.6 mmol/L (3.5-5.1); Sodium 144 mmol/L (137-145); Total Bilirubin 0.3 mg/dL (0.2-1.3); Total Protein 5.4 g/dL (6.3-8.2)
[2022-12-22 13:22] LABS: INR 0.9 (<1.2); Prothrombin Time 9.8 sec (9.0-12.0)
[2022-12-22 13:25] LABS: NT-Pro-B-Type Natriuretic Pept 303 pg/mL; Partial Thromboplastin Time 21.3 sec (22.0-30.0)
--- NOTE | 2022-12-22 14:15 | ED ---
General Adult HPI - General Chief complaint: Shortness of Breath Stated complaint: SOB Time Seen by Provider: 12/22/22 10:40 Source: patient, family, RN notes reviewed Mode of arrival: ambulatory Limitations: no limitations - History of Present Illness Initial comments: 72-year-old male presents emergency department with chief complaint of shortness of breath. Patient states he was recently admitted discharge. Patient has underlying COPD on oxygen. Patient states he felt short of breath he states his heart rate started driving up and he became very worked up. Patient denies any chest pain like swelling denies fevers chills no cough or cold like symptoms. Patient states that he had a past episode and this is why he was admitted for last week. Patient has a follow-up appointment with his cmm programmer. - Related Data Home Medications Medication Instructions Recorded Confirmed Ipratropium-Albuterol Nebulize 3 ml INHALATION RT-QID PRN 07/30/21 12/22/22 [Duoneb 0.5 mg-3 mg/3 ml Soln] Albuterol Sulfate [Albuterol 1 - 2 puff INHALATION RT-Q6H PRN 10/21/22 12/22/22 Sulfate Hfa] Apixaban [Eliquis] 5 mg PO BID 10/21/22 12/22/22 Fluticasone Propion/Salmeterol 1 puff INHALATION RT-BID 10/21/22 12/22/22 [Advair 250-50 Diskus] Isosorbide Mononitrate ER [Imdur] 30 mg PO DAILY 12/15/22 12/22/22 Theophylline 12 Hour [Robe-Dur] 300 mg PO DAILY 12/15/22 12/22/22 Previous Rx's Medication Instructions Recorded Atorvastatin [Lipitor] 80 mg PO HS #90 tab 10/23/22 LORazepam [Ativan] 0.5 mg PO TID PRN 3 Days #9 tab 12/22/22 Allergies Allergy/AdvReac Type Severity Reaction Status Date / Time No Known Allergies Allergy Verified 12/22/22 12:26 Review of Systems ROS Statement: Those systems with pertinent positive or pertinent negative responses have been documented in the HPI. ROS Other: All systems not noted in ROS Statement are negative. Past Medical History Past Medical History: Atrial Fibrillation, Cancer, COPD, GERD/Reflux, Pulmonary Embolus (PE) Additional Past Medical History / Comment(s): positional upper abdominal pain stated when he changes position from laying to sitting and standing. Prostate cancer, pt states he has not undergone any tx for ca. History of Any Multi-Drug Resistant Organisms: None Reported Past Surgical History: Bowel Resection, Orthopedic Surgery, Tonsillectomy Additional Past Surgical History / Comment(s): Right shoulder arthroscopy. Colonoscopy. EGD, colostomy colostomy Past Anesthesia/Blood Transfusion Reactions: No Reported Reaction Additional Past Anesthesia/Blood Transfusion Reaction / Comment(s): Pt has C LAUSTROPHOBIA Past Psychological History: No Psychological Hx Reported Smoking Status: Former smoker Past Alcohol Use History: None Reported Past Drug Use History: None Reported - Past Family History Father Family Medical History: Cancer Mother Family Medical History: Cancer Additional Family Medical History / Comment(s): Mother in her 50s with some form of cancer. Pt/spouse do not recall type of cancer. General Exam Limitations: no limitations General appearance: alert, in no apparent distress Head exam: Present: atraumatic, normocephalic, normal inspection Eye exam: Present: normal appearance, PERRL, EOMI. Absent: scleral icterus, conjunctival injection, periorbital swelling ENT exam: Present: normal exam, normal oropharynx, mucous membranes moist Neck exam: Present: normal inspection, full ROM. Absent: tenderness, meningismus, lymphadenopathy Respiratory exam: Present: wheezes. Absent: normal lung sounds bilaterally, respiratory distress, rales, rhonchi, stridor Cardiovascular Exam: Present: normal rhythm, tachycardia, normal heart sounds. Absent: systolic murmur, diastolic murmur, rubs, gallop, clicks Extremities exam: Present: pedal edema Course Vital Signs 12/22/22 12/22/22 12/22/22 10:35 11:38 15:04 Temperature 98.4 F 98.3 F Pulse Rate 127 H 96 Respiratory 22 22 20 Rate Blood Pressure 120/74 118/72 O2 Sat by Pulse 96 97 Oximetry EKG Findings - EKG Comments: EKG Findings:: EKG born 11:08 sinus tachycardia with a rate of 105 NH 121 to her 77 QT/QTC 311/372 frequent PVCs noted - EKG Results: EKG: interpreted by KEERTHI Medical Decision Making - Medical Decision Making Was pt. sent in by a medical professional or institution (, PA, BALANCE SHEET ANALYST, urgent care, hospital, or [facility]...) When possible be specific @ -No Did you speak to anyone other than the patient for history (EMS, parent, family, police, friend...)? What history was obtained from this source @ -No Did you review nursing and triage notes (agree or disagree)? Why? @ -I reviewed and agree with nursing and triage notes Were old charts reviewed (outside hosp., previous admission, EMS record, old EKG, old radiological studies, urgent care reports/EKG's, [facility] records)? Report findings @ -Reviewed recent admission, lab studies and records Differential Diagnosis (chest pain, altered mental status, abdominal pain women, abdominal pain men, vaginal bleeding, weakness, fever, dyspnea, syncope, headache, dizziness, GI bleed, back pain, seizure, CVA, palpatations, mental health, musculoskeletal)? @ -Differential Dyspnea: Coronary syndrome, arrhythmia, tamponade, asthma, COPD, pulmonary embolism, pneumonia, pneumothorax, pulmonary effusion, anaphylaxis, diabetic ketoacidosis, flailed chest, pulmonary contusion, diaphragmatic rupture, anemia, neuromuscular, this is not meant to be an all-inclusive list. EKG interpreted by me (3pts min.). @ -As above X-rays interpreted by me (1pt min.). @ -Chest x-ray shows COPD changes CT interpreted by me (1pt min.). @ -None done U/S interpreted by me (1pt. min.). @ -None done What testing was considered but not performed or refused? (CT, X-rays, U/S, labs)? Why? @ -None What meds were considered but not given or refused? Why? @ -None Did you discuss the management of the patient with other professionals (professionals i.e. , PA, BALANCE SHEET ANALYST, lab, RT, psych nurse, elementary school social worker, social service technician, teacher, title officer, sample case porter)? Give summary @ -No Was smoking cessation discussed for >3mins.? @ -No Was critical care preformed (if so, how long)? @ -No Were there social determinants of health that impacted care today? How? (Homelessness, low income, unemployed, alcoholism, drug addiction, transportation, low edu. Level, literacy, decrease access to med. care, nursing home, rehab)? @ -No Was there de-escalation of care discussed even if they declined (Discuss DNR or withdrawal of care, Hospice)? DNR status @ -No What co-morbidities impacted this encounter? (DM, HTN, Smoking, COPD, CAD, Cancer, CVA, ARF, Chemo, Hep., AIDS, mental health diagnosis, sleep apnea, morbid obesity)? @ -COPD Was patient admitted / discharged? Hospital course, mention meds given and route, prescriptions, significant lab abnormalities, going to OR and other pertinent info. @ -Discharge patient workup including labs, EKG and chest x-rays unremarkable there are no acute changes. Patient was given Ativan it is very anxious and symptoms have resolved. Patient's has been on night monitor with no acute findings. I do believe he has ongoing shortness breath, COPD his oxygen dependent and which he has been exhibiting panic attacks as described by patient. Patient was provided Ativan resolved and he was given a prescription for at home he has close follow-up with PCP and cardiology return parameters di scussed. Undiagnosed new problem with uncertain prognosis? @ -No Drug Therapy requiring intensive monitoring for toxicity (Heparin, Nitro, Insu hari, Cardizem)? @ -No Were any procedures done? @ -No Diagnosis/symptom? @ -COPD, anxiety Acute, or Chronic, or Acute on Chronic? @ -Acute on chronic Uncomplicated (without systemic symptoms) or Complicated (systemic symptoms)? @ - complicated Side effects of treatment? @ -No Exacerbation, Progression, or Severe Exacerbation? @ -No Poses a threat to life or bodily function? How? (Chest pain, [place], [place], pneumonia, PE, COPD, DKA, ARF, appy, cholecystitis, CVA, Diverticulitis, Homicidal, Suicidal, threat to staff... and all critical care pts) @ -No - Lab Data Result diagrams: 12/22/22 11:30 12/22/22 11:30 Lab Results 12/22/22 12/22/22 12/22/22 Range/Units 11:30 11:30 11:30 WBC 13.6 H (3.8-10.6) k/uL RBC 4.43 (4.30-5.90) m/uL Hgb 13.2 (13.0-17.5) gm/dL Hct 40.9 (39.0-53.0) % MCV 92.2 (80.0-100.0) fL MCH 29.7 (25.0-35.0) pg MCHC 32.2 (31.0-37.0) g/dL RDW 15.0 (11.5-15.5) % Plt Count 302 (150-450) k/uL MPV 7.5 Neutrophils % 82 % Lymphocytes % 10 % Monocytes % 6 % Eosinophils % 1 % Basophils % 0 % Neutrophils # 11.2 H (1.3-7.7) k/uL Lymphocytes # 1.3 (1.0-4.8) k/uL Monocytes # 0.9 (0-1.0) k/uL Eosinophils # 0.2 (0-0.7) k/uL Basophils # 0.0 (0-0.2) k/uL PT 9.8 (9.0-12.0) sec INR 0.9 (<1.2) APTT 21.3 L (22.0-30.0) sec Sodium 144 (137-145) mmol/L Potassium 3.6 (3.5-5.1) mmol/L Chloride 109 H (98-107) mmol/L Carbon Dioxide 28 (22-30) mmol/L Anion Gap 7 mmol/L BUN 31 H (9-20) mg/dL Creatinine 1.16 (0.66-1.25) mg/dL Est GFR (CKD-EPI)AfAm 73 (>60 ml/min/1.73 sqM) Est GFR (CKD-EPI)NonAf 63 (>60 ml/min/1.73 sqM) Glucose 131 H (74-99) mg/dL Calcium 8.8 (8.4-10.2) mg/dL Magnesium 2.0 (1.6-2.3) mg/dL Total Bilirubin 0.3 (0.2-1.3) mg/dL AST 27 (17-59) U/L ALT 40 (4-49) U/L Alkaline Phosphatase 88 (38-126) U/L Troponin I (0.000-0.034) ng/mL NT-Pro-B Natriuret Pep 303 pg/mL Total Protein 5.4 L (6.3-8.2) g/dL Albumin 3.2 L (3.5-5.0) g/dL 12/22/22 Range/Units 11:30 WBC (3.8-10.6) k/uL RBC (4.30-5.90) m/uL Hgb (13.0-17.5) gm/dL Hct (39.0-53.0) % MCV (80.0-100.0) fL MCH (25.0-35.0) pg MCHC (31.0-37.0) g/dL RDW (11.5-15.5) % Plt Count (150-450) k/uL MPV Neutrophils % % Lymphocytes % % Monocytes % % Eosinophils % % Basophils % % Neutrophils # (1.3-7.7) k/uL Lymphocytes # (1.0-4.8) k/uL Monocytes # (0-1.0) k/uL Eosinophils # (0-0.7) k/uL Basophils # (0-0.2) k/uL PT (9.0-12.0) sec INR (<1.2) APTT (22.0-30.0) sec Sodium (137-145) mmol/L Potassium (3.5-5.1) mmol/L Chloride (98-107) mmol/L Carbon Dioxide (22-30) mmol/L Anion Gap mmol/L BUN (9-20) mg/dL Creatinine (0.66-1.25) mg/dL Est GFR (CKD-EPI)AfAm (>60 ml/min/1.73 sqM) Est GFR (CKD-EPI)NonAf (>60 ml/min/1.73 sqM) Glucose (74-99) mg/dL Calcium (8.4-10.2) mg/dL Magnesium (1.6-2.3) mg/dL Total Bilirubin (0.2-1.3) mg/dL AST (17-59) U/L ALT (4-49) U/L Alkaline Phosphatase (38-126) U/L Troponin I <0.012 (0.000-0.034) ng/mL NT-Pro-B Natriuret Pep pg/mL Total Protein (6.3-8.2) g/dL Albumin (3.5-5.0) g/dL Disposition Clinical Impression: COPD (chronic obstructive pulmonary disease), Anxiety, Dyspnea Disposition: HOME SELF-CARE Condition: Stable Instructions (If sedation given, give patient instructions): COPD (Chronic Obstructive Pulmonary Disease) (ED) Additional Instructions: Please return to the Emergency Department if symptoms worsen or any other concerns. Prescriptions: LORazepam [Ativan] 0.5 mg PO TID PRN 3 Days #9 tab PRN Reason: Anxiety Is patient prescribed a controlled substance at d/c from ED?: No Referrals: Maico Anders MD [Primary Care Provider] - 1-2 days Time of Disposition: 14:15
[2022-12-22 15:14] VITALS: BP 118/72; PULSE 96; RESP 20; TEMP 98.3
== END 2022-12-22 15:06 | disposition home or self-care (01) ==
LOC: EC 10:27
DX: J44.9 Chronic obstructive pulmonary disease, unspecified (principal); F41.9 Anxiety disorder, unspecified; R00.0 Tachycardia, unspecified; I48.91 Unspecified atrial fibrillation; Z79.51 Long term (current) use of inhaled steroids; Z79.01 Long term (current) use of anticoagulants; Z79.899 Other long term (current) drug therapy; Z87.891 Personal history of nicotine dependence; Z86.711 Personal history of pulmonary embolism
CPT/HCPCS: 36415; 83880; 80053; 83735; 84484; 85025; 85610; 85730; 71046; 99285; 96374; J2060

== ENCOUNTER 2022-12-30 13:55 | Observation (INO) | payer MEDICARE, OTHER ==
--- NOTE | 2022-12-30 14:25 | ED ---
SOB HPI - General Chief Complaint: Shortness of Breath Stated Complaint: breathing trouble copd Time Seen by Provider: 12/30/22 14:10 Source: patient, RN notes reviewed, old records reviewed Mode of arrival: wheelchair Limitations: no limitations - History of Present Illness Initial Comments: This is a 72-year-old male to the emergency department for evaluation he. Patient presents today for evaluation of severe shortness of breath weakness dizziness lightheadedness. Patient overall does not feeling well. Patient states he has multiple recent hospital admissions for similar feelings. States he cannot catch his breath and is getting worse, patient is to severe anxiety patient denies fevers but does have chest pain MD Complaint: shortness of breath, cough, chest pain, "asthma attack", anxiety -: days(s) Severity: severe Severity scale (1-10): 9 Consistency: constant Improves With: nothing Worsens With: exertion Known History Of: COPD Context: recent URI, anxiety, recent illness Associated Symptoms: chest pain, pain with inspiration, cough - Related Data Home Medications Medication Instructions Recorded Confirmed Ipratropium-Albuterol Nebulize 3 ml INHALATION RT-QID PRN 07/30/21 12/30/22 [Duoneb 0.5 mg-3 mg/3 ml Soln] Albuterol Sulfate [Albuterol 1 - 2 puff INHALATION RT-Q6H PRN 10/21/22 12/30/22 Sulfate Hfa] Apixaban [Eliquis] 5 mg PO BID 10/21/22 12/30/22 Theophylline 12 Hour [Robe-Dur] 300 mg PO DAILY 12/15/22 12/30/22 Previous Rx's Medication Instructions Recorded Atorvastatin [Lipitor] 80 mg PO HS #90 tab 10/23/22 LORazepam [Ativan] 0.5 mg PO TID PRN 3 Days #9 tab 12/22/22 Acetaminophen Tab [Tylenol] 650 mg PO Q6HR PRN tab 01/03/23 Budesonide-Formot 160-4.5 Mcg 2 puff INHALATION RT-BID #1 each 01/03/23 [Symbicort 160-4.5 Mcg Inhaler] Pantoprazole [Protonix] 40 mg PO AC-BRKFST #15 tab 01/03/23 predniSONE [Deltasone] 40 mg PO DAILY #10 tab 01/03/23 Allergies Allergy/AdvReac Type Severity Reaction Status Date / Time No Known Allergies Allergy Verified 12/30/22 16:11 Review of Systems ROS Statement: Those systems with pertinent positive or pertinent negative responses have been documented in the HPI. ROS Other: All systems not noted in ROS Statement are negative. Past Medical History Past Medical History: Atrial Fibrillation, Cancer, COPD, GERD/Reflux, Pulmonary Embolus (PE) Additional Past Medical History / Comment(s): positional upper abdominal pain stated when he changes position from laying to sitting and standing. Prostate cancer, pt states he has not undergone any tx for ca. History of Any Multi-Drug Resistant Organisms: None Reported Past Surgical History: Bowel Resection, Orthopedic Surgery, Tonsillectomy Additional Past Surgical History / Comment(s): Right shoulder arthroscopy. Colonoscopy. EGD, colostomy colostomy Past Anesthesia/Blood Transfusion Reactions: No Reported Reaction Additional Past Anesthesia/Blood Transfusion Reaction / Comment(s): Pt has CLAUSTROPHOBIA Past Psychological History: No Psychological Hx Reported Smoking Status: Former smoker Past Alcohol Use History: None Reported Past Drug Use History: None Reported - Past Family History Father Family Medical History: Cancer Mother Family Medical History: Cancer Additional Family Medical History / Comment(s): Mother in her 50s with some form of cancer. Pt/spouse do not recall type of cancer. General Exam General appearance: alert, in no apparent distress, anxious Head exam: Present: atraumatic, normocephalic, normal inspection Eye exam: Present: normal appearance, PERRL, EOMI. Absent: scleral icterus, conjunctival injection, periorbital swelling ENT exam: Present: normal exam, mucous membranes moist Neck exam: Present: normal inspection. Absent: tenderness, meningismus, lymphadenopathy Respiratory exam: Present: respiratory distress, wheezes, accessory muscle use, decreased breath sounds, prolonged expiratory. Absent: rales, rhonchi, stridor Cardiovascular Exam: Present: normal rhythm, tachycardia, normal heart sounds. Absent: systolic murmur, diastolic murmur, rubs, gallop, clicks GI/Abdominal exam: Present: soft, normal bowel sounds. Absent: distended, tenderness, guarding, rebound, rigid Extremities exam: Present: normal inspection, full ROM, normal capillary refill. Absent: tenderness, pedal edema, joint swelling, calf tenderness Back exam: Present: normal inspection Neurological exam: Present: alert, oriented X3, CN II-XII intact Psychiatric exam: Present: normal affect, normal mood Skin exam: Present: warm, dry, intact, normal color. Absent: rash Course Vital Signs 12/30/22 12/30/22 12/30/22 14:08 14:16 15:09 Temperature 97.9 F Pulse Rate 112 H 95 Respiratory 18 26 H 24 Rate Blood Pressure 107/63 108/73 O2 Sat by Pulse 97 98 Oximetry 12/30/22 12/30/22 12/30/22 15:29 15:40 15:41 Temperature Pulse Rate 89 88 88 Respiratory Rate Blood Pressure O2 Sat by Pulse Oximetry 12/30/22 12/30/22 12/30/22 15:50 16:00 16:01 Temperature Pulse Rate 92 105 H 101 H Respiratory 20 18 Rate Blood Pressure 108/73 121/81 O2 Sat by Pulse 98 97 Oximetry 12/30/22 12/30/22 12/30/22 17:00 18:00 19:00 Temperature Pulse Rate 100 90 93 Respiratory 19 13 15 Rate Blood Pressure 122/82 129/86 132/89 O2 Sat by Pulse 97 98 Oximetry 12/30/22 12/30/22 12/30/22 21:35 21:49 21:58 Temperature Pulse Rate 94 90 95 Respiratory Rate Blood Pressure O2 Sat by Pulse Oximetry 12/30/22 12/30/22 22:13 23:33 Temperature 98.2 F Pulse Rate 98 100 Respiratory 18 18 Rate Blood Pressure 139/98 132/76 O2 Sat by Pulse 97 98 Oximetry - Reevaluation(s) Reevaluation #1: 12/30/22 17:34 Medical records reviewed Reevaluation #2: 12/30/22 17:34 Patient has no real improvement here in the ER Reevaluation #3: 12/30/22 17:34 Patient informed of results questions answered Reevaluation #4: 12/30/22 15:31 Was pt. sent in by a medical professional or institution (, PA, CAPACITY PLANNING MANAGER, urgent care, hospital, or jail...) When possible be specific @ -no Did you speak to anyone other than the patient for history (EMS, parent, family, police, friend...)? What history was obtained from this source @ -no Did you review nursing and triage notes (agree or disagree)? Why? @ -agree Are old charts reviewed (outside hosp., previous admission, EMS record, old EKG, old radiological studies, urgent care reports/EKG's, jail records)? Report findings @ -yes Differential Diagnosis (chest pain, altered mental status, abdominal pain women, abdominal pain men, vaginal bleeding, weakness, fever, dyspnea, syncope, headache, dizziness, GI bleed, back pain, seizure, CVA, palpatations, mental health, musculoskeletal)? @ -prior EKG interpreted by me (3pts min.). @ -yes X-rays interpreted by me (1pt min.). @ -yes CT interpreted by me (1pt min.). @ -no U/S interpreted by me (1pt. min.). @ -no What testing was considered but not performed or refused? (CT, X-rays, U/S, labs)? Why? @ -none What meds were considered but not given or refused? Why? @ -none Did you discuss the management of the patient with other professionals (professionals i.e. , PA, CAPACITY PLANNING MANAGER, lab, RT, psych nurse, social media marketing manager, collection administrator, teacher, loans officer, machine adjuster leader case trim)? Give summary @ -no Was smoking cessation discussed for >3mins.? @ -no Was critical care preformed (if so, how long)? @ -no Were there social determinants of health that impacted care today? How? (Homelessness, low income, unemployed, alcoholism, drug addiction, transportation, low edu. Level, literacy, decrease access to med. care, long term, rehab)? @ -none Was there de-escalation of care discussed even if they declined (Discuss DNR or withdrawal of care, Hospice)? DNR status @ -no What co-morbidities impacted this encounter? (DM, HTN, Smoking, COPD, CAD, Cancer, CVA, ARF, Chemo, Hep., AIDS, mental health diagnosis, sleep apnea, morbid obesity)? @ -none Was patient admitted / discharged? Hospital course, mention meds given and route, prescriptions, significant lab abnormalities, going to OR and other pertinent info. @ - 72 male to the emergency department for evaluation of severe COPD with sig nificant shortness of breath and COPD exacerbation. Patient be admitted for further supportive care Admitted Undiagnosed new problem with uncertain prognosis? @ -no Drug Therapy requiring intensive monitoring for toxicity (Heparin, Nitro, Insulin, Cardizem)? @ -no Were any procedures done? @ -no Diagnosis/symptom? @ -COPD exacerbation significantly chest pain Acute, or Chronic, or Acute on Chronic? @ -Acute Uncomplicated (without systemic symptoms) or Complicated (systemic symptoms)? @ -Complicated Side effects of treatment? @ -no Exacerbation, Progression, or Severe Exacerbation? @ -exacerbation Poses a threat to life or bodily function? How? (Chest pain, USA, HI, pneumonia, PE, COPD, DKA, ARF, appy, cholecystitis, CVA, Diverticulitis, Homicidal, Suicidal, threat to staff... and all critical care pts) @ -yes severe COPD with respiratory failure Reevaluation #5: 12/30/22 17:34 Differential Dyspnea: Coronary syndrome, arrhythmia, tamponade, asthma, COPD, pulmonary embolism, pneumonia, pneumothorax, pulmonary effusion, anaphylaxis, diabetic ketoacidosis, flailed chest, pulmonary contusion, diaphragmatic rupture, anemia, neuromus cular, this is not meant to be an all-inclusive list. Differential Chest Pain: Stable Angina, Unstable Angina, STEMI, NSTEMI Aortic Dissection, Pneumothorax, Musculoskeletal, Esophageal Spasm GERD, Cholecystitis, Pancreatitis, Zoster, this is not meant to be an all-inclusive list. - Consultations Consultation #1: Spoke with sound who agrees to admit this patient Medical Decision Making - Medical Decision Making 72 male to the emergency department for evaluation of severe COPD with significant shortness of breath and COPD exacerbation. Patient be admitted for further supportive care - Lab Data Result diagrams: 12/31/22 05:27 12/31/22 05:27 Lab Results 12/30/22 12/30/22 12/30/22 Range/Units 15:07 15:07 15:07 WBC 11.5 H (3.8-10.6) k/uL RBC 4.43 (4.30-5.90) m/uL Hgb 13.0 (13.0-17.5) gm/dL Hct 41.4 (39.0-53.0) % MCV 93.3 (80.0-100.0) fL MCH 29.4 (25.0-35.0) pg MCHC 31.5 (31.0-37.0) g/dL RDW 15.0 (11.5-15.5) % Plt Count 277 (150-450) k/uL MPV 8.0 Neutrophils % 88 % Lymphocytes % 8 % Monocytes % 3 % Eosinophils % 0 % Basophils % 0 % Neutrophils # 10.1 H (1.3-7.7) k/uL Lymphocytes # 0.9 L (1.0-4.8) k/uL Monocytes # 0.4 (0-1.0) k/uL Eosinophils # 0.0 (0-0.7) k/uL Basophils # 0.0 (0-0.2) k/uL Hypochromasia Slight PT 9.7 L (10.0-12.5) sec INR 0.9 (<1.2) APTT 23.9 (22.0-30.0) sec Sodium 138 (137-145) mmol/L Potassium 4.5 (3.5-5.1) mmol/L Chloride 103 (98-107) mmol/L Carbon Dioxide 27 (22-30) mmol/L Anion Gap 8 mmol/L BUN 22 H (9-20) mg/dL Creatinine 1.11 (0.66-1.25) mg/dL Est GFR (CKD-EPI)AfAm 77 (>60 ml/min/1.73 sqM) Est GFR (CKD-EPI)NonAf 66 (>60 ml/min/1.73 sqM) Glucose 127 H (74-99) mg/dL Plasma Lactic Acid Luciano (0.7-2.0) mmol/L Calcium 8.6 (8.4-10.2) mg/dL Magnesium 1.9 (1.6-2.3) mg/dL Total Bilirubin 0.3 (0.2-1.3) mg/dL AST 32 (17-59) U/L ALT 47 (4-49) U/L Alkaline Phosphatase 121 (38-126) U/L Troponin I (0.000-0.034) ng/mL NT-Pro-B Natriuret Pep 182 pg/mL Total Protein 6.1 L (6.3-8.2) g/dL Albumin 3.6 (3.5-5.0) g/dL 12/30/22 12/30/22 Range/Units 15:07 15:07 WBC (3.8-10.6) k/uL RBC (4.30-5.90) m/uL Hgb (13.0-17.5) gm/dL Hct (39.0-53.0) % MCV (80.0-100.0) fL MCH (25.0-35.0) pg MCHC (31.0-37.0) g/dL RDW (11.5-15.5) % Plt Count (150-450) k/uL MPV Neutrophils % % Lymphocytes % % Monocytes % % Eosinophils % % Basophils % % Neutrophils # (1.3-7.7) k/uL Lymphocytes # (1.0-4.8) k/uL Monocytes # (0-1.0) k/uL Eosinophils # (0-0.7) k/uL Basophils # (0-0.2) k/uL Hypochromasia PT (10.0-12.5) sec INR (<1.2) APTT (22.0-30.0) sec Sodium (137-145) mmol/L Potassium (3.5-5.1) mmol/L Chloride (98-107) mmol/L Carbon Dioxide (22-30) mmol/L Anion Gap mmol/L BUN (9-20) mg/dL Creatinine (0.66-1.25) mg/dL Est GFR (CKD-EPI)AfAm (>60 ml/min/1.73 sqM) Est GFR (CKD-EPI)NonAf (>60 ml/min/1.73 sqM) Glucose (74-99) mg/dL Plasma Lactic Acid Luciano 1.3 (0.7-2.0) mmol/L Calcium (8.4-10.2) mg/dL Magnesium (1.6-2.3) mg/dL Total Bilirubin (0.2-1.3) mg/dL AST (17-59) U/L ALT (4-49) U/L Alkaline Phosphatase (38-126) U/L Troponin I <0.012 (0.000-0.034) ng/mL NT-Pro-B Natriuret Pep pg/mL Total Protein (6.3-8.2) g/dL Albumin (3.5-5.0) g/dL - EKG Data -: EKG Interpreted by Me (EKG is sinus tachycardia 108 PA 122 QRS 60 QTC 361) - Radiology Data Radiology results: report reviewed (Chest x-rays negative for acute disease), image reviewed Disposition Clinical Impression: COPD (chronic obstructive pulmonary disease), Acute exacerbation of chronic br onchitis, COPD exacerbation, Chest pain Disposition: ADMITTED IP TO THIS HOSP Condition: Good Is patient prescribed a controlled substance at d/c from ED?: No Time of Disposition: 17:30
[2022-12-30] MEDS ORDERED: SODIUM CHLORIDE 0.9% 1,000 ML IV STA (15:07)
[2022-12-30] MEDS ORDERED: IPRATROPIUM-ALBUTEROL 3 ML NEB INHALATION STA ×2 (15:07→17:31)
[2022-12-30] MEDS ORDERED: methylPREDNISolone SOD SUCCI 125 MG/2 ML VIAL IV STA (15:07)
[2022-12-30] MEDS ORDERED: MORPHINE SULFATE 4 MG/ML SYRINGE IVP STA (15:39)
[2022-12-30 15:40] LABS: Basophils % (A) 0 %; Eosinophils % (A) 0 %; HCT 41.4 % (39.0-53.0); Hypochromasia Slight; Lymphocytes # (A) 0.9 k/uL (1.0-4.8); Lymphocytes % (A) 8 %; MCH 29.4 pg (25.0-35.0); MCHC 31.5 g/dL (31.0-37.0); MCV 93.3 fL (80.0-100.0); Monocytes # (A) 0.4 k/uL (0-1.0); Monocytes % (A) 3 %; Neutrophils # (A) 10.1 k/uL (1.3-7.7); Neutrophils % (A) 88 %; Platelet Count 277 k/uL (150-450); RBC 4.43 m/uL (4.30-5.90); WBC 11.5 k/uL (3.8-10.6)
[2022-12-30 15:51] LABS: ALT 47 U/L (4-49); AST 32 U/L (17-59); African American GFR (CKD) 77 (>60 ml/min/1.73 sqM); Albumin 3.6 g/dL (3.5-5.0); Alkaline Phosphatase 121 U/L (38-126); Anion Gap 8 mmol/L; Blood Urea Nitrogen 22 mg/dL (9-20); Calcium 8.6 mg/dL (8.4-10.2); Carbon Dioxide 27 mmol/L (22-30); Chloride 103 mmol/L (98-107); Glucose 127 mg/dL (74-99); Magnesium 1.9 mg/dL (1.6-2.3); Non-African American GFR(CKD) 66 (>60 ml/min/1.73 sqM); Potassium 4.5 mmol/L (3.5-5.1); Sodium 138 mmol/L (137-145); Total Bilirubin 0.3 mg/dL (0.2-1.3); Total Protein 6.1 g/dL (6.3-8.2)
[2022-12-30 15:56] LABS: INR 0.9 (<1.2); Partial Thromboplastin Time 23.9 sec (22.0-30.0)
[2022-12-30 15:59] LABS: NT-Pro-B-Type Natriuretic Pept 182 pg/mL
[2022-12-30 16:03] LABS: Prothrombin Time 9.7 sec (10.0-12.5)
--- NOTE | 2022-12-30 16:24 | XR ---
EXAMINATION TYPE: XR chest 1V portable DATE OF EXAM: 12/30/2022 Comparison: 12/22/2022 Clinical History: 72 year-old male shortness of breath and COPD Findings: Heart normal size. Aorta within normal limits. Strandy areas of scarring or atelectasis mid and lower lungs. Advanced emphysematous changes especially in the upper lungs. No gaudencio consolidation or pleur al effusion is seen. Impression: COPD with advanced emphysema and strandy areas of scarring or atelectasis. Given the interstitial den sities, such as at the right midlung, a subtle early infiltrate would be difficult to exclude. Follow -up can be considered.
[2022-12-30] MEDS ORDERED: NALOXONE 0.4 MG/ML 1 ML VIAL IVP PRN (17:31)
[2022-12-30] MEDS ORDERED: NALOXONE 0.4 MG/ML 1 ML VIAL IV PRN (17:32)
[2022-12-30] MEDS ORDERED: IPRATROPIUM-ALBUTEROL 3 ML NEB INHALATION PRN (18:20)
--- NOTE | 2022-12-30 18:24 | P.HPIM ---
History of Present Illness H&P Date: 12/30/22 Patient is a 72-year-old male with a PMH of COPD with chronic hypoxic respiratory failure on 2 L is cannula oxygen continuously at home, recent bilateral PEs on Eliquis, recent perforated diverticulitis status post colostomy who presents to the emergency room with complaints of shortness of breath. Symptoms started this morning. Associated with wheezing. Attempted nebulized treatments with mild relief. He reports compliance with his Eliquis at home. The patient also reports chronic cough which is productive of whitish phlegm unchanged. He denies any chest pain, palpitations, fever or chills, nausea or vomiting, changes in urination or bowel habits. No changes in appetite or weight. He denies any dizziness, numbness/weakness/tingling of the extremities. In the ED, he was noted to be tachycardic with heart rate in the low 100s. He was saturating 97% on 3 L is cannula. CBC showed leukocytosis of 11.5 with neutrophilia. INR was 0.9. CMP showed BUN of 22, glucose of 127 and total prot ein of 6.1. Lactic acid 1.3. Troponin less than 0.012. BNP 182. EKG showed sinus tachycardia with PVCs. Chest x-ray showed COPD with advanced emphysema. Pertinent positives and negatives as discussed in HPI, a complete review of systems was performed and all other systems are negative. General: non toxic, no distress, appears at stated age Derm: warm, dry Head: atraumatic, normocephalic, symmetric Eyes: EOMI, no lid lag, anicteric sclera Mouth: no lip lesion, mucus membranes moist Cardiovascular: S1S2 tachycardic no murmur Lungs: Decreased BS bilateral, no rhonchi, no rales , no accessory muscle use Ext: no gross muscle atrophy, no edema, no contractures Neuro: no focal neuro deficits Psych: Alert, oriented, appropriate affect Acute on chronic COPD exacerbation Leukocytosis Chronic conditions: Chronic respiratory failure on 2 L nasal cannula, bilateral PE, history of perforated diverticulitis status post colostomy, hypertension, dyslipidemia Based on my assessment of this patient, this patient meets a high complexity level of care. Patient has a history of COPD with severe exacerbation or progression of disease which poses a threat to life or bodily function. Acute on chronic COPD exacerbation: DuoNeb QID scheduled and PRN for SOB/wheezing. Solumedrol 60 mg IV Q6H. Telemtery monitoring. Pulmicort BID INH. Performist INH BID. Pulmonology consult. Leukocytosis: No signs of active infection. Continue to monitor. Eliquis for DVT prophylaxis. FULL CODE. I have reviewed the following artist consultant notes: I have reviewed the results of the following tests: As HPI. I have ordered the following tests: I have discussed the care of this patient with the following independent historian: I have independently interpreted the following test below: EKG as above. I have discussed the management of this patient with the following physician: Discussed with ED physician in detail. Past Medical History Past Medical History: Atrial Fibrillation, Cancer, COPD, GERD/Reflux, Pulmonary Embolus (PE) Additional Past Medical History / Comment(s): positional upper abdominal pain stated when he changes position from laying to sitting and standing. Prostate cancer, pt states he has not undergone any tx for ca. History of Any Multi-Drug Resistant Organisms: None Reported Past Surgical History: Bowel Resection, Orthopedic Surgery, Tonsillectomy Additional Past Surgical History / Comment(s): Right shoulder arthroscopy. Colonoscopy. EGD, colostomy colostomy Past Anesthesia/Blood Transfusion Reactions: No Reported Reaction Additional Past Anesthesia/Blood Transfusion Reaction / Comment(s): Pt has CLAUSTROPHOBIA Past Psychological History: No Psychological Hx Reported Smoking Status: Former smoker Past Alcohol Use History: None Reported Past Drug Use History: None Reported - Past Family History Father Family Medical History: Cancer Mother Family Medical History: Cancer Additional Family Medical History / Comment(s): Mother in her 50s with some form of cancer. Pt/spouse do not recall type of cancer. Medications and Allergies Home Medications Medication Instructions Recorded Confirmed Type Ipratropium-Albuterol Nebulize 3 ml INHALATION RT-QID PRN 07/30/21 12/30/22 History [Duoneb 0.5 mg-3 mg/3 ml Soln] Albuterol Sulfate [Albuterol 1 - 2 puff INHALATION RT-Q6H PRN 10/21/22 12/30/22 History Sulfate Hfa] Apixaban [Eliquis] 5 mg PO BID 10/21/22 12/30/22 History Fluticasone Propion/Salmeterol 1 puff INHALATION RT-BID 10/21/22 12/30/22 History [Advair 250-50 Diskus] Atorvastatin [Lipitor] 80 mg PO HS #90 tab 10/23/22 12/30/22 Rx Isosorbide Mononitrate ER [Imdur] 30 mg PO DAILY 12/15/22 12/30/22 History Theophylline 12 Hour [Robe-Dur] 300 mg PO DAILY 12/15/22 12/30/22 History LORazepam [Ativan] 0.5 mg PO TID PRN 3 Days #9 tab 12/22/22 12/30/22 Rx predniSONE 10 mg PO DAILY 12/30/22 12/30/22 History Allergies Allergy/AdvReac Type Severity Reaction Status Date / Time No Known Allergies Allergy Verified 12/30/22 16:11 Physical Exam Vitals: Vital Signs Temp Pulse Resp BP Pulse Ox 12/30/22 16:01 101 H 18 121/81 97 12/30/22 15:50 92 12/30/22 15:41 88 12/30/22 15:40 88 12/30/22 15:29 89 12/30/22 15:09 95 24 108/73 98 12/30/22 14:16 26 H 12/30/22 14:08 97.9 F 112 H 18 107/63 97 Intake and Output 12/30/22 12/30/22 12/30/22 06:59 14:59 22:59 Other: Weight 62.596 kg Results CBC & Chem 7: 12/30/22 15:07 12/30/22 15:07 Labs: Abnormal Lab Results - Last 24 Hours (Table) 12/30/22 12/30/22 12/30/22 Range/Units 15:07 15:07 15:07 WBC 11.5 H (3.8-10.6) k/uL Neutrophils # 10.1 H (1.3-7.7) k/uL Lymphocytes # 0.9 L (1.0-4.8) k/uL PT 9.7 L (10.0-12.5) sec BUN 22 H (9-20) mg/dL Glucose 127 H (74-99) mg/dL Total Protein 6.1 L (6.3-8.2) g/dL
[2022-12-30] MEDS: methylPREDNISolone SOD SUCCI 125 MG/2 ML VIAL IV SCH (19:37)
[2022-12-30] MEDS: FORMOTEROL FUMARATE 20 MCG/2 ML NEBU INHALATION SCH (21:34)
[2022-12-30] MEDS: IPRATROPIUM-ALBUTEROL 3 ML NEB INHALATION SCH (21:34)
[2022-12-30] MEDS: BUDESONIDE 0.5 MG/2 ML NEBU INHALATION SCH (21:34)
[2022-12-30] MEDS: APIXABAN 5 MG TAB PO SCH (22:17)
[2022-12-30] MEDS: ATORVASTATIN 80 MG TAB PO SCH (22:18)
[2022-12-31] MEDS: ACETAMINOPHEN TAB 325 MG TAB PO PRN ×2 (00:38→21:52)
[2022-12-31] MEDS: methylPREDNISolone SOD SUCCI 125 MG/2 ML VIAL IV SCH ×4 (00:38→17:33)
[2022-12-31] MEDS: MORPHINE SULFATE 4 MG/ML SYRINGE IV PRN ×2 (00:39→17:33)
[2022-12-31] MEDS: ONDANSETRON 4 MG/2 ML VIAL IVP PRN (02:30)
[2022-12-31] MEDS: BUDESONIDE 0.5 MG/2 ML NEBU INHALATION SCH ×2 (09:14→19:17)
[2022-12-31] MEDS: IPRATROPIUM-ALBUTEROL 3 ML NEB INHALATION SCH ×4 (09:14→19:17)
[2022-12-31] MEDS: FORMOTEROL FUMARATE 20 MCG/2 ML NEBU INHALATION SCH ×2 (09:14→19:17)
[2022-12-31 09:45] LABS: ALT 42 U/L (10-49); AST 21 U/L (14-35); Albumin 3.6 d/dL (3.8-4.9); Albumin/Globulin Ratio 1.89 Ratio (1.60-3.17); Alkaline Phosphatase 105 U/L (41-126); Calcium 8.8 mg/dL (8.7-10.3); Carbon Dioxide 23.7 mmol/L (21.6-31.8); Chloride 104 mmol/L (96-109); Globulin 1.9 d/dL (1.6-3.3); Glucose 130 mg/dL (70-110); Phosphorus 3.6 mg/dL (2.4-5.1); Potassium 4.9 mmol/L (3.5-5.5); Sodium 139 mmol/L (135-145); Total Bilirubin 0.2 mg/dL (0.3-1.2); Total Protein 5.5 d/dL (6.2-8.2)
[2022-12-31] MEDS: THEOPHYLLINE PO SCH (09:46)
[2022-12-31] MEDS: APIXABAN 5 MG TAB PO SCH ×2 (09:46→21:52)
[2022-12-31] MEDS: ISOSORBIDE MONONITRATE ER 30 MG TAB.ER.24H PO SCH (09:46)
[2022-12-31 09:51] LABS: Basophils # (A) 0.03 X 10*3/uL (0.00-0.10); Basophils % (A) 0.2 %; Eosinophils # (A) 0 X 10*3/uL (0.04-0.35); Eosinophils % (A) 0 %; HCT 39.9 % (39.6-50.0); HGB 12.4 d/dL (13.0-17.0); Lymphocytes # (A) 0.52 X 10*3/uL (0.90-5.00); Lymphocytes % (A) 3.9 %; MCH 28.8 pg (27.0-32.0); MCHC 31.1 d/dL (32.0-37.0); MCV 92.6 FL (80.0-97.0); Mean Platelet Volume 9.4 FL (9.5-12.2); Monocytes % (A) 0.8 %; NRBC Per 100 WBC 0 X 10*3/uL (0.00-0.01); Neutrophils # (A) 12.53 X 10*3/uL (1.80-7.70); Neutrophils % (A) 94.1 %; Platelet Count 295 X 10*3/uL (140-440); RBC 4.31 X 10*6/uL (4.40-5.60); RDW 14.4 % (11.5-14.5); WBC 13.31 X 10*3/uL (4.50-10.00)
--- NOTE | 2022-12-31 12:41 | P.CNPUL ---
History of Present Illness Consult date: 12/31/22 Requesting physician: Linette Obrien Reason for consult: dyspnea, cough, COPD Chief complaint: Shortness of breath, cough, congestion History of present illness: This is a pleasant 72-year-old male patient with a known history of prostate cancer, sigmoid diverticulosis, acute perforated diverticulitis with abscess formation status post sigmoid colectomy and end colostomy performed in July 2022, severe advanced chronic obstructive pulmonary disease with FEV1 value 26% of predicted, oxygen and steroid dependent, gastroesophageal reflux disease, hiatal hernia. If he presented to the emergency room yesterday with complaints of increasing shortness of breath dizziness lightheadedness over the past few days. He has had multiple recent hospital admissions for similar feelings. His x-ray reveals COPD with advanced emphysema and strandy areas of scarring or atelectasis. White count 13.3. Hemoglobin 12.4. Platelets 295. Sodium 139. Potassium 4.9. Bicarb 24. BUN 22. Creatinine 1.0. Glucose 130. Troponins negative 3. ProBNP 182. He is seen today in consultation on the regular medical floor. He is currently sitting up in bed. Awake and alert in no acute distress. Maintaining good O2 saturations in the mid 90s on 3 L/m per nasal cannula. He is afebrile. Hemodynamically stable. He's been initiated and DuoNeb inhalations, Pulmicort and Perforomist inhalations, Solu-Medrol, theophylline. Anticoagulated with Eliquis. Review of Systems REVIEW OF SYSTEMS: CONSTITUTIONAL: Denies any recent significant weight loss or weight gain. EYES: Denies change in vision. EARS, NOSE, MOUTH, THROAT: Denies headaches, denies sore throat. CARDIOVASCULAR: Denies chest pain, palpitations or syncopal episodes. RESPIRATORY: Positive for shortness of breath, cough, congestion no hemoptysis. GASTROINTESTINAL: Denies change in appetite, denies abdominal pain GENITOURINARY: Denies hematuria, denies infections. MUSKULOSKELETAL: Denies pain, denies swelling. INTEGUMENTARY: Denies rash, denies eczema. NEUROLOGICAL: Positive for dizziness, lightheadedness. Denies recent memory loss, no recent seizure activity. PSYCHIATRIC: Denies anxiety, denies depression. HEMATOLOGIC/LYMPHATIC: Denies anemia, denies enlarged lymph nodes. Past Medical History Past Medical History: Atrial Fibrillation, Cancer, COPD, GERD/Reflux, Pulmonary Embolus (PE) Additional Past Medical History / Comment(s): positional upper abdominal pain stated when he changes position from laying to sitting and standing. Prostate cancer, pt states he has not undergone any tx for ca. History of Any Multi-Drug Resistant Organisms: None Reported Past Surgical History: Bowel Resection, Orthopedic Surgery, Tonsillectomy Additional Past Surgical History / Comment(s): Right shoulder arthroscopy. Colonoscopy. EGD, colostomy colostomy Past Anesthesia/Blood Transfusion Reactions: No Reported Reaction Additional Past Anesthesia/Blood Transfusion Reaction / Comment(s): Pt has CLAUSTROPHOBIA Past Psychological History: No Psychological Hx Reported Additional Psychological History / Comment(s): . Smoking Status: Former smoker Past Alcohol Use History: None Reported Additional Past Alcohol Use History / Comment(s): Pt started smokig in 1967, QUIT JULY 2020. Pt quit drinking 20 years ago. Past Drug Use History: None Reported - Past Family History Father Family Medical History: Cancer Mother Family Medical History: Cancer Additional Family Medical History / Comment(s): Mother in her 50s with some form of cancer. Pt/spouse do not recall type of cancer. Medications and Allergies Home Medications Medication Instructions Recorded Confirmed Type Ipratropium-Albuterol Nebulize 3 ml INHALATION RT-QID PRN 07/30/21 12/30/22 History [Duoneb 0.5 mg-3 mg/3 ml Soln] Albuterol Sulfate [Albuterol 1 - 2 puff INHALATION RT-Q6H PRN 10/21/22 12/30/22 History Sulfate Hfa] Apixaban [Eliquis] 5 mg PO BID 10/21/22 12/30/22 History Fluticasone Propion/Salmeterol 1 puff INHALATION RT-BID 10/21/22 12/30/22 History [Advair 250-50 Diskus] Atorvastatin [Lipitor] 80 mg PO HS #90 tab 10/23/22 12/30/22 Rx Isosorbide Mononitrate ER [Imdur] 30 mg PO DAILY 12/15/22 12/30/22 History Theophylline 12 Hour [Robe-Dur] 300 mg PO DAILY 12/15/22 12/30/22 History LORazepam [Ativan] 0.5 mg PO TID PRN 3 Days #9 tab 12/22/22 12/30/22 Rx predniSONE 10 mg PO DAILY 12/30/22 12/30/22 History Allergies Allergy/AdvReac Type Severity Reaction Status Date / Time No Known Allergies Allergy Verified 12/30/22 16:11 Physical Exam Vitals: Vital Signs Temp Pulse Pulse Resp BP BP Pulse Ox 12/31/22 12:26 92 12/31/22 12:13 88 12/31/22 09:41 100 12/31/22 09:31 104 H 12/31/22 09:30 104 H 12/31/22 09:14 104 H 12/31/22 07:20 97.4 F L 85 16 138/84 97 12/31/22 05:27 100 12/31/22 00:12 97.6 F 100 15 159/74 96 12/30/22 23:33 98.2 F 100 18 132/76 98 12/30/22 22:13 98 18 139/98 97 12/30/22 21:58 95 12/30/22 21:49 90 12/30/22 21:35 94 12/30/22 19:00 93 15 132/89 98 12/30/22 18:00 90 13 129/86 12/30/22 17:00 100 19 122/82 97 12/30/22 16:01 101 H 18 121/81 97 12/30/22 16:00 105 H 20 108/73 98 12/30/22 15:50 92 12/30/22 15:41 88 12/30/22 15:40 88 12/30/22 15:29 89 12/30/22 15:09 95 24 108/73 98 12/30/22 14:16 26 H 12/30/22 14:08 97.9 F 112 H 18 107/63 97 Intake and Output 12/30/22 12/31/22 12/31/22 22:59 06:59 14:59 Intake Total 118 Output Total 200 Balance -82 Intake: Oral 118 Output: Urine 200 Other: # Voids 2 Weight 62.596 kg GENERAL EXAM: Alert, pleasant 72-year-old male patient, on 3 L nasal cannula, comfortable in no apparent distress. HEAD: Normocephalic. EYES: Normal reaction of pupils, equal size. NOSE: Clear with pink turbinates. THROAT: No erythema or exudates. NECK: No masses, no JVD. CHEST: No chest wall deformity. LUNGS: Equal air entry with no crackles, wheeze, rhonchi or dullness. CVS: S1 and S2 normal with no audible murmur, regular rhythm. ABDOMEN: Ostomy to the left abdomen. Functioning with stool. No hepatosplenomegaly, normal bowel sounds, no guarding or rigidity. SPINE: No scoliosis or deformity SKIN: No rashes CENTRAL NERVOUS SYSTEM: No focal deficits, tone is normal in all 4 extremities. EXTREMITIES: There is no peripheral edema. No clubbing, no cyanosis. Peripheral pulses are intact. Results - Laboratory Findings CBC and BMP: 12/31/22 05:27 12/31/22 05:27 PT/INR, D-dimer PT 9.7 sec (10.0-12.5) L 12/30/22 15:07 INR 0.9 (<1.2) 12/30/22 15:07 Abnormal lab findings: Abnormal Labs 12/30/22 12/30/22 12/30/22 15:07 15:07 15:07 WBC 11.5 H RBC Hgb MCHC MPV Neutrophils # 10.1 H Lymphocytes # 0.9 L Monocytes # Eosinophils # PT 9.7 L BUN 22 H BUN/Creatinine Ratio Glucose 127 H Total Bilirubin Total Protein 6.1 L Albumin 12/31/22 12/31/22 05:27 05:27 WBC 13.31 H RBC 4.31 L Hgb 12.4 L MCHC 31.1 L MPV 9.4 L Neutrophils # 12.53 H Lymphocytes # 0.52 L Monocytes # 0.10 L Eosinophils # 0 L PT BUN BUN/Creatinine Ratio 22.00 H Glucose 130 H Total Bilirubin 0.2 L Total Protein 5.5 L Albumin 3.6 L - Diagnostic Findings Chest x-ray: image reviewed Assessment and Plan Assessment: Acute on chronic hypoxic respiratory failure secondary to an acute exacerbation of chronic obstructive pulmonary disease Advanced COPD with an FEV1 of 26% of predicted maintained on oxygen and steroids History of acute perforated diverticulitis with abscess formation, status post sigmoid colectomy and end colostomy in July 2022 Prostate cancer Acid reflux Hiatal hernia Plan: The patient was seen and evaluated Chest x-ray, labs and medications reviewed Continue bronchodilators, steroids Titrate the FiO2 as tolerated Check a pro-calcitonin We will continue to follow and make further recommendations based on his clinical status I have personally seen and examined the patient, performed the documentation and the assessment and plan as written. Number of minutes spent on the visit: 20.
--- NOTE | 2022-12-31 13:04 | P.PN ---
Subjective Progress Note Date: 12/31/22 Patient is a 72-year-old male with a PMH of COPD with chronic hypoxic respiratory failure on 2 L is cannula oxygen continuously at home, recent bilateral PEs on Eliquis, recent perforated diverticulitis status post colostomy who presents to the emergency room with complaints of shortness of breath. Symptoms started this morning. Associated with wheezing. Attempted nebulized treatments with mild relief. He reports compliance with his Eliquis at home. The patient also reports chronic cough which is productive of whitish phlegm unchanged. He denies any chest pain, palpitations, fever or chills, nausea or vomiting, changes in urination or bowel habits. No changes in appetite or weight. He denies any dizziness, numbness/weakness/tingling of the extremities. In the ED, he was noted to be tachycardic with heart rate in the low 100s. He was saturating 97% on 3 L is cannula. CBC showed leukocytosis of 11.5 with neutrophilia. INR was 0.9. CMP showed BUN of 22, glucose of 127 and total protein of 6.1. Lactic acid 1.3. Troponin less than 0.012. BNP 182. EKG showed sinus tachycardia with PVCs. Chest x-ray showed COPD with advanced emphysema. 12/31 Patient was seen and examined. Reports continued SOB. Cough with blood tinged sputum. CBC shows WBC 13.31, Hg 12.4. CMP glucose 130. Pulmonology recommends procalcitonin and continued treatment with bronchodilators. General: non toxic, no distress, appears at stated age Derm: warm, dry Head: atraumatic, normocephalic, symmetric Eyes: EOMI, no lid lag, anicteric sclera Mouth: no lip lesion, mucus membranes moist Cardiovascular: S1S2 tachycardic no murmur Lungs: Decreased BS bilateral, no rhonchi, no rales , no accessory muscle use Ext: no gross muscle atrophy, no edema, no contractures Neuro: no focal neuro deficits Psych: Alert, oriented, appropriate affect Acute on chronic COPD exacerbation Leukocytosis Chronic conditions: Chronic respiratory failure on 2 L nasal cannula, bilateral PE, history of perforated diverticulitis status post colostomy, hypertension, dyslipidemia Based on my assessment of this patient, this patient meets a moderate complexity level of care. Patient has a history of COPD with severe exacerbation or progression of disease which poses a threat to life or bodily function. Acute on chronic COPD exacerbation: DuoNeb QID scheduled and PRN for SOB/wheezing. Solumedrol 60 mg IV Q6H. Telemtery monitoring. Pulmicort BID INH. Performist INH BID. Pulmonology consult. Leukocytosis: No signs of active infection. Continue to monitor. Eliquis for DVT prophylaxis. FULL CODE. I have reviewed the following franchise business consultant notes: Pulm note I have reviewed the results of the following tests: CBC, CMP. I have ordered the following tests: I have discussed the care of this patient with the following independent historian: I have independently interpreted the following test below: I have discussed the management of this patient with the following physician: Objective - Vital Signs Vital signs: Vital Signs Temp 97.4 F L 12/31/22 07:20 Pulse 92 12/31/22 12:26 Resp 16 12/31/22 07:20 BP 138/84 12/31/22 07:20 Pulse Ox 97 12/31/22 07:20 FiO2 Intake & Output 12/30/22 12/31/22 12/31/22 18:59 06:59 18:59 Intake Total 118 Output Total 200 Balance -82 Weight 62.596 kg 62.596 kg Intake: Oral 118 Output: Urine 200 Other: # Voids 2 - Labs CBC & Chem 7: 12/31/22 05:27 12/31/22 05:27 Labs: Abnormal Lab Results - Last 24 Hours (Table) 12/30/22 12/30/22 12/30/22 Range/Units 15:07 15:07 15:07 WBC 11.5 H (3.8-10.6) k/uL RBC (4.40-5.60) X 10*6/uL Hgb (13.0-17.0) d/dL MCHC (32.0-37.0) d/dL MPV (9.5-12.2) FL Neutrophils # 10.1 H (1.3-7.7) k/uL Lymphocytes # 0.9 L (1.0-4.8) k/uL Monocytes # (0.20-1.00) X 10*3/uL Eosinophils # (0.04-0.35) X 10*3/uL PT 9.7 L (10.0-12.5) sec BUN 22 H (9-20) mg/dL BUN/Creatinine Ratio (12.00-20.00) Ratio Glucose 127 H (74-99) mg/dL Total Bilirubin (0.3-1.2) mg/dL Total Protein 6.1 L (6.3-8.2) g/dL Albumin (3.8-4.9) d/dL 12/31/22 12/31/22 Range/Units 05:27 05:27 WBC 13.31 H (3.8-10.6) k/uL RBC 4.31 L (4.40-5.60) X 10*6/uL Hgb 12.4 L (13.0-17.0) d/dL MCHC 31.1 L (32.0-37.0) d/dL MPV 9.4 L (9.5-12.2) FL Neutrophils # 12.53 H (1.3-7.7) k/uL Lymphocytes # 0.52 L (1.0-4.8) k/uL Monocytes # 0.10 L (0.20-1.00) X 10*3/uL Eosinophils # 0 L (0.04-0.35) X 10*3/uL PT (10.0-12.5) sec BUN (9-20) mg/dL BUN/Creatinine Ratio 22.00 H (12.00-20.00) Ratio Glucose 130 H (74-99) mg/dL Total Bilirubin 0.2 L (0.3-1.2) mg/dL Total Protein 5.5 L (6.3-8.2) g/dL Albumin 3.6 L (3.8-4.9) d/dL
[2022-12-31] MEDS ORDERED: PANTOPRAZOLE 40 MG/10 ML VIAL IVP SCH (13:15)
[2022-12-31 17:03] LABS: Glucose,Whole Blood 142 mg/dL (70-110)
[2022-12-31] MEDS ORDERED: IPRATROPIUM-ALBUTEROL 3 ML NEB INHALATION STA (18:07)
[2022-12-31] MEDS: LORazepam 0.5 MG TAB PO PRN (21:52)
[2022-12-31] MEDS: ATORVASTATIN 80 MG TAB PO SCH (21:52)
[2023-01-01] MEDS: methylPREDNISolone SOD SUCCI 125 MG/2 ML VIAL IV SCH ×4 (00:59→17:13)
[2023-01-01] MEDS: PANTOPRAZOLE 40 MG TABLET PO SCH (06:29)
[2023-01-01] MEDS: MORPHINE SULFATE 4 MG/ML SYRINGE IV PRN ×2 (06:30→18:33)
[2023-01-01] MEDS: IPRATROPIUM-ALBUTEROL 3 ML NEB INHALATION SCH ×4 (08:28→20:54)
[2023-01-01] MEDS: BUDESONIDE 0.5 MG/2 ML NEBU INHALATION SCH ×2 (08:28→20:54)
[2023-01-01] MEDS: FORMOTEROL FUMARATE 20 MCG/2 ML NEBU INHALATION SCH ×2 (08:28→20:54)
[2023-01-01] MEDS: THEOPHYLLINE PO SCH (08:46)
[2023-01-01] MEDS: APIXABAN 5 MG TAB PO SCH ×2 (08:48→21:56)
[2023-01-01] MEDS: ISOSORBIDE MONONITRATE ER 30 MG TAB.ER.24H PO SCH (08:49)
[2023-01-01] MEDS: LORazepam 0.5 MG TAB PO PRN ×2 (09:36→21:56)
--- NOTE | 2023-01-01 11:18 | P.PN ---
Subjective Progress Note Date: 01/01/23 Patient is a 72-year-old male with a PMH of COPD with chronic hypoxic respiratory failure on 2 L is cannula oxygen continuously at home, recent bilateral PEs on Eliquis, recent perforated diverticulitis status post colostomy who presents to the emergency room with complaints of shortness of breath. Symptoms started this morning. Associated with wheezing. Attempted nebulized treatments with mild relief. He reports compliance with his Eliquis at home. The patient also reports chronic cough which is productive of whitish phlegm unchanged. He denies any chest pain, palpitations, fever or chills, nausea or vomiting, changes in urination or bowel habits. No changes in appetite or weight. He denies any dizziness, numbness/weakness/tingling of the extremities. In the ED, he was noted to be tachycardic with heart rate in the low 100s. He was saturating 97% on 3 L is cannula. CBC showed leukocytosis of 11.5 with neutrophilia. INR was 0.9. CMP showed BUN of 22, glucose of 127 and total protein of 6.1. Lactic acid 1.3. Troponin less than 0.012. BNP 182. EKG showed sinus tachycardia with PVCs. Chest x-ray showed COPD with advanced emphysema. 12/31 Patient was seen and examined. Reports continued SOB. Cough with blood tinged sputum. CBC shows WBC 13.31, Hg 12.4. CMP glucose 130. Troponins < 0.012 x 3. Pulmonology recommends procalcitonin and continued treatment with bronchodilators. 01/01 Patient was seen and examined. Last night, when attempting to stand up to go to the bathroom, patient reported lightheadedness and feeling like passing out. Vital signs were stable at that time. This morning, he had an episode of abdominal pain, RUQ radiating to the left side, sharp and stabbing, associated with feeling bloated, lasting 4 seconds. General: non toxic, no distress, appears at stated age Derm: warm, dry Head: atraumatic, normocephalic, symmetric Eyes: EOMI, no lid lag, anicteric sclera Mouth: no lip lesion, mucus membranes moist Cardiovascular: S1S2 reg no murmur Lungs: Decreased BS bilateral, no rhonchi, no rales , no accessory muscle use GI: NTTP. + BS, slightly distended, + colostomy Ext: no gross muscle atrophy, no edema, no contractures Neuro: no focal neuro deficits Psych: Alert, oriented, appropriate affect Presyncope Abdominal pain Acute on chronic COPD exacerbation Leukocytosis Chronic conditions: Chronic respiratory failure on 2 L nasal cannula, bilateral PE, history of perforated diverticulitis status post colostomy, hypertension, dyslipidemia Based on my assessment of this patient, this patient meets a moderate complexity level of care. Patient has a history of COPD with severe exacerbation or progression of disease which poses a threat to life or bodily function. Presyncope: Obtain orthostats. Echo previous admission EF 55-60% normal LV t hickness, trace TR. DC Imdur for now. Telemetry monitoring. Abdominal pain: Obtain KUB. Acute on chronic COPD exacerbation: DuoNeb QID scheduled and PRN for SOB/wheezing. Solumedrol 60 mg IV Q6H. Telemtery monitoring. Pulmicort BID INH. Performist INH BID. Pulmonology on board. Leukocytosis: No signs of active infection. Continue to monitor. Eliquis for DVT prophylaxis. FULL CODE. I have reviewed the following incident response consultant notes: Pulmonology note. I have reviewed the results of the following tests: Echo. I have ordered the following tests: KUB. I have discussed the care of this patient with the following independent historian: I have independently interpreted the following test below: I have discussed the management of this patient with the following physician: Objective - Vital Signs Vital signs: Vital Signs Temp 98.1 F 01/01/23 02:51 Pulse 81 01/01/23 02:51 Resp 14 01/01/23 02:51 BP 113/56 01/01/23 02:51 Pulse Ox 96 01/01/23 02:51 FiO2 Intake & Output 12/31/22 01/01/23 01/01/23 18:59 06:59 18:59 Intake Total 358 Output Total 400 450 Balance -42 -450 Intake: Oral 358 Output: Urine 400 450 Other: # Voids 3 2 - Labs CBC & Chem 7: 12/31/22 05:27 12/31/22 05:27 Labs: Abnormal Lab Results - Last 24 Hours (Table) 12/31/22 12/31/22 12/31/22 Range/Units 05:27 05:27 17:01 WBC 13.31 H (4.50-10.00) X 10*3/uL RBC 4.31 L (4.40-5.60) X 10*6/uL Hgb 12.4 L (13.0-17.0) d/dL MCHC 31.1 L (32.0-37.0) d/dL MPV 9.4 L (9.5-12.2) FL Neutrophils # 12.53 H (1.80-7.70) X 10*3/uL Lymphocytes # 0.52 L (0.90-5.00) X 10*3/uL Monocytes # 0.10 L (0.20-1.00) X 10*3/uL Eosinophils # 0 L (0.04-0.35) X 10*3/uL BUN/Creatinine Ratio 22.00 H (12.00-20.00) Ratio Glucose 130 H (70-110) mg/dL POC Glucose (mg/dL) 142 H (70-110) mg/dL Total Bilirubin 0.2 L (0.3-1.2) mg/dL Total Protein 5.5 L (6.2-8.2) d/dL Albumin 3.6 L (3.8-4.9) d/dL
--- NOTE | 2023-01-01 11:51 | XR ---
EXAMINATION TYPE: XR KUB portable DATE OF EXAM: 01/01/2023 CLINICAL HISTORY: Generalized abdominal pain. TECHNIQUE: Single supine KUB image of the abdomen is obtained. COMPARISON: CT abdomen and pelvis September 06, 2022. FINDINGS: Scattered gas is seen in non-distended small and large bowel loops. There is scoliotic cur vature with multilevel spurring and disc space narrowing in the lumbar spine. Surgical clip overlies the central pelvis. Lung bases are clear. Mild vascular calcification overlies the bilateral pelvis. IMPRESSION: Overall nonobstructive bowel gas pattern.
--- NOTE | 2023-01-01 12:31 | P.PN ---
Subjective Progress Note Date: 01/01/23 This is a pleasant 72-year-old male patient with a known history of prostate cancer, sigmoid diverticulosis, acute perforated diverticulitis with abscess formation status post sigmoid colectomy and end colostomy performed in July 2022, severe advanced chronic obstructive pulmonary disease with FEV1 value 26% of predicted, oxygen and steroid dependent, gastroesophageal reflux disease, hiatal hernia. If he presented to the emergency room yesterday with complaints of increasing shortness of breath dizziness lightheadedness over the past few days. He has had multiple recent hospital admissions for similar feelings. His x-ray reveals COPD with advanced emphysema and strandy areas of scarring or atele ctasis. White count 13.3. Hemoglobin 12.4. Platelets 295. Sodium 139. Potassium 4.9. Bicarb 24. BUN 22. Creatinine 1.0. Glucose 130. Troponins negative 3. ProBNP 182. He is seen today in consultation on the regular medical floor. He is currently sitting up in bed. Awake and alert in no acute distress. Maintaining good O2 saturations in the mid 90s on 3 L/m per nasal cannula. He is afebrile. Hemodynamically stable. He's been initiated and DuoNeb inhalations, Pulmicort and Perforomist inhalations, Solu-Medrol, theophylline. Anticoagulated with Eliquis. The patient is seen today 01/01/2023 in follow-up on the regular medical floor. He is sitting up in bed. Awake and alert in no acute distress. Maintaining good O2 saturations in the mid 90s on 2 L/m per nasal cannula. Orthostatic blood pressure readings did not reveal any significant hypotension. Abdominal x-ray revealed nonobstructive bowel gas pattern. He is continued on DuoNeb inhalations, Pulmicort inhalations, Solu-Medrol and theophylline. Anticoagulated with Eliquis. Objective - Vital Signs Vital signs: Vital Signs Temp 98.0 F 01/01/23 07:00 Pulse 100 01/01/23 11:56 Resp 16 01/01/23 07:00 BP 125/78 01/01/23 11:25 Pulse Ox 96 01/01/23 11:25 FiO2 Intake & Output 12/31/22 01/01/23 01/01/23 18:59 06:59 18:59 Intake Total 358 480 Output Total 400 450 200 Balance -42 -450 280 Intake: Oral 358 480 Output: Urine 400 450 200 Other: # Voids 3 2 1 - Exam GENERAL EXAM: Alert, 72-year-old male patient, resting in bed, on 3 L nasal c annula, comfortable in no apparent distress. HEAD: Normocephalic. EYES: Normal reaction of pupils, equal size. NOSE: Clear with pink turbinates. THROAT: No erythema or exudates. NECK: No masses, no JVD. CHEST: No chest wall deformity. LUNGS: Equal air entry with no crackles, wheeze, rhonchi or dullness. CVS: S1 and S2 normal with no audible murmur, regular rhythm. ABDOMEN: Ostomy to the left abdomen. Functioning with stool. No hepatosplenomegaly, normal bowel sounds, no guarding or rigidity. SPINE: No scoliosis or deformity SKIN: No rashes CENTRAL NERVOUS SYSTEM: No focal deficits, tone is normal in all 4 extremities. EXTREMITIES: There is no peripheral edema. No clubbing, no cyanosis. P eripheral pulses are intact. - Labs CBC & Chem 7: 12/31/22 05:27 12/31/22 05:27 Labs: Abnormal Lab Results - Last 24 Hours (Table) 12/31/22 Range/Units 17:01 POC Glucose (mg/dL) 142 H (70-110) mg/dL Assessment and Plan Assessment: Acute on chronic hypoxic respiratory failure secondary to an acute exacerbation of chronic obstructive pulmonary disease Advanced COPD with an FEV1 of 26% of predicted maintained on oxygen and steroids History of acute perforated diverticulitis with abscess formation, status post sigmoid colectomy and end colostomy in July 2022 Prostate cancer Acid reflux Hiatal hernia Plan: The patient was seen and evaluated Abdominal x-ray and medications reviewed Continue bronchodilators, steroids Titrate the FiO2 as tolerated Check a pro-calcitonin We will continue to follow I have personally seen and examined the patient, performed the documentation and the assessment and plan as written. Number of minutes spent on the visit: 10.
[2023-01-01] MEDS: ATORVASTATIN 80 MG TAB PO SCH (21:56)
[2023-01-01] MEDS: ACETAMINOPHEN TAB 325 MG TAB PO PRN (21:57)
[2023-01-02] MEDS: methylPREDNISolone SOD SUCCI 125 MG/2 ML VIAL IV SCH ×3 (00:58→12:12)
[2023-01-02] MEDS: ONDANSETRON 4 MG/2 ML VIAL IVP PRN ×2 (01:55→08:55)
[2023-01-02] MEDS: PANTOPRAZOLE 40 MG TABLET PO SCH (06:24)
[2023-01-02] MEDS: APIXABAN 5 MG TAB PO SCH ×2 (08:44→21:52)
[2023-01-02] MEDS: THEOPHYLLINE PO SCH (08:44)
[2023-01-02] MEDS: MORPHINE SULFATE 4 MG/ML SYRINGE IV PRN (08:50)
[2023-01-02] MEDS: BUDESONIDE 0.5 MG/2 ML NEBU INHALATION SCH ×2 (09:17→19:44)
[2023-01-02] MEDS: FORMOTEROL FUMARATE 20 MCG/2 ML NEBU INHALATION SCH ×2 (09:17→19:44)
[2023-01-02] MEDS: IPRATROPIUM-ALBUTEROL 3 ML NEB INHALATION SCH ×4 (09:17→19:44)
--- NOTE | 2023-01-02 11:40 | P.PN ---
Subjective Progress Note Date: 01/02/23 Patient is a 72-year-old male with a PMH of COPD with chronic hypoxic respiratory failure on 2 L is cannula oxygen continuously at home, recent bilateral PEs on Eliquis, recent perforated diverticulitis status post colostomy who presents to the emergency room with complaints of shortness of breath. Symptoms started this morning. Associated with wheezing. Attempted nebulized treatments with mild relief. He reports compliance with his Eliquis at home. The patient also reports chronic cough which is productive of whitish phlegm unchanged. He denies any chest pain, palpitations, fever or chills, nausea or vomiting, changes in urination or bowel habits. No changes in appetite or weight. He denies any dizziness, numbness/weakness/tingling of the extremities. In the ED, he was noted to be tachycardic with heart rate in the low 100s. He was saturating 97% on 3 L is cannula. CBC showed leukocytosis of 11.5 with neutrophilia. INR was 0.9. CMP showed BUN of 22, glucose of 127 and total protein of 6.1. Lactic acid 1.3. Troponin less than 0.012. BNP 182. EKG showed sinus tachycardia with PVCs. Chest x-ray showed COPD with advanced emphysema. 12/31 Patient was seen and examined. Reports continued SOB. Cough with blood tinged sputum. CBC shows WBC 13.31, Hg 12.4. CMP glucose 130. Troponins < 0.012 x 3. Pulmonology recommends procalcitonin and continued treatment with bronchodilators. 01/01 Patient was seen and examined. Last night, when attempting to stand up to go to the bathroom, patient reported lightheadedness and feeling like passing out. Vital signs were stable at that time. This morning, he had an episode of abdominal pain, RUQ radiating to the left side, sharp and stabbing, associated with feeling bloated, lasting 4 seconds. 01/02 Patient was seen and examined. He continues to report sharp and stabbing abdominal pain RUQ to L abdomen. This pain occurs multiple times per day. Associated with nausea but no vomiting. His breathing is stable. Orthostats done yesterday and today were negative but felt lightheaded during the test when standing. KUB was non specific. General: non toxic, no distress, appears at stated age Derm: warm, dry Head: atraumatic, normocephalic, symmetric Eyes: EOMI, no lid lag, anicteric sclera Mouth: no lip lesion, mucus membranes moist Cardiovascular: S1S2 reg no murmur Lungs: Decreased BS bilateral, no rhonchi, no rales , no accessory muscle use GI: NTTP. + BS, slightly distended, + colostomy Ext: no gross muscle atrophy, no edema, no contractures Neuro: no focal neuro deficits Psych: Alert, oriented, appropriate affect Presyncope Abdominal pain with history of perforated diverticulitis status post colostomy Acute on chronic COPD exacerbation Leukocytosis Chronic conditions: Chronic respiratory failure on 2 L nasal cannula, bilateral PE, hypertension, dyslipidemia Based on my assessment of this patient, this patient meets a moderate complexity level of care. Patient has a history of COPD with severe exacerbation or progression of disease which poses a threat to life or bodily function. Presyncope: Orthostats negative but symptomatic. Echo previous admission EF 55- 60% normal LV thickness, trace TR. DC Imdur for now. BUN/Cr ratio slightly elevated. Start NS at 75 cc/hr. Advised slow positional changes. Justo hose thigh high. Consider midodrine if symptoms persistent. Telemetry monitoring. Abdominal pain with history of perforated diverticulitis status post colostomy: KUB unrevealing. Obtain CT AP. Consult Dr. Moyer. Acute on chronic COPD exacerbation: DuoNeb QID scheduled and PRN for SOB/wheezing. Solumedrol 60 mg IV Q6H. Telemtery monitoring. Pulmicort BID INH. Performist INH BID. Pulmonology on board. Leukocytosis: No signs of active infection. Continue to monitor. Eliquis for DVT prophylaxis. FULL CODE. I have reviewed the following lifestyle consultant notes: I have reviewed the results of the following tests: KUB I have ordered the following tests: CT AP I have discussed the care of this patient with the following independent historian: I have independently interpreted the following test below: I have discussed the management of this patient with the following physician: Objective - Vital Signs Vital signs: Vital Signs Temp 97.9 F 01/02/23 09:50 Pulse 103 H 01/02/23 09:50 Resp 15 01/02/23 09:50 BP 146/89 01/02/23 09:50 Pulse Ox 95 01/02/23 07:00 FiO2 Intake & Output 01/01/23 01/02/23 01/02/23 18:59 06:59 18:59 Intake Total 960 Output Total 200 800 Balance 760 -800 Intake: Oral 960 Output: Urine 200 800 Other: # Voids 3 2 - Labs CBC & Chem 7: 12/31/22 05:27 12/31/22 05:27
--- NOTE | 2023-01-02 11:48 | CT ---
EXAMINATION TYPE: CT abdomen pelvis wo con DATE OF EXAM: 01/02/2023 COMPARISON: 09/06/2022 INDICATION: abdominal pain DLP: 341.80 mGycm, Automated exposure control for dose reduction was used. CONTRAST: 0 mL of Isovue 300. Study performed without Oral Contrast TECHNIQUE: Axial images were obtained from above the diaphragm to the pubic rami in the axial plane a t 5 mm thick sections. Reconstructed images are reviewed on the computer in the coronal plane. FINDINGS: Limited CT sections are obtained the lung bases. Emphysematous changes are at the lung bases.. CT ABDOMEN: Liver: Normal Spleen: Calcified granuloma within the spleen. Pancreas: Normal Adrenal glands: The adrenal glands are normal. Gallbladder: Normal Kidneys: No masses are evident. No hydronephrosis is present. No cysts are present. No renal stone s are identified. Aorta: Vascular calcification is within the aorta. Inferior vena cava: Normal. CT PELVIS: Loops of bowel within the abdomen and pelvis are normal. Ostomy is in the left lower quadrant. Few d iverticuli within the sigmoid colon. No acute diverticulitis is evident. The study is without oral c ontrast causing limitation on the evaluation. Appendix: Normal as visualized. Urinary bladder: Normal. Genitourinary structures: Prostate is unremarkable Osseous structures: No suspicious lytic or sclerotic lesions. Degenerative disc changes are within th e scoliotic lumbar spine. IMPRESSION: 1. No acute abnormality. 2. Emphysematous changes at the lung bases. 3. Degenerative changes within the lumbar spine.
[2023-01-02] MEDS: SODIUM CHLORIDE 0.9% 1,000 ML IV SCH (12:13)
--- NOTE | 2023-01-02 12:56 | P.PN ---
Subjective Progress Note Date: 01/02/23 This is a pleasant 72-year-old male patient with a known history of prostate cancer, sigmoid diverticulosis, acute perforated diverticulitis with abscess formation status post sigmoid colectomy and end colostomy performed in July 2022, severe advanced chronic obstructive pulmonary disease with FEV1 value 26% of predicted, oxygen and steroid dependent, gastroesophageal reflux disease, hiatal hernia. If he presented to the emergency room yesterday with complaints of increasing shortness of breath dizziness lightheadedness over the past few days. He has had multiple recent hospital admissions for similar feelings. His x-ray reveals COPD with advanced emphysema and strandy areas of scarring or atele ctasis. White count 13.3. Hemoglobin 12.4. Platelets 295. Sodium 139. Potassium 4.9. Bicarb 24. BUN 22. Creatinine 1.0. Glucose 130. Troponins negative 3. ProBNP 182. He is seen today in consultation on the regular medical floor. He is currently sitting up in bed. Awake and alert in no acute distress. Maintaining good O2 saturations in the mid 90s on 3 L/m per nasal cannula. He is afebrile. Hemodynamically stable. He's been initiated and DuoNeb inhalations, Pulmicort and Perforomist inhalations, Solu-Medrol, theophylline. Anticoagulated with Eliquis. The patient is seen today 01/01/2023 in follow-up on the regular medical floor. He is sitting up in bed. Awake and alert in no acute distress. Maintaining good O2 saturations in the mid 90s on 2 L/m per nasal cannula. Orthostatic blood pressure readings did not reveal any significant hypotension. Abdominal x-ray revealed nonobstructive bowel gas pattern. He is continued on DuoNeb inhalations, Pulmicort inhalations, Solu-Medrol and theophylline. Anticoagulated with Eliquis. The patient is seen today 01/02/2023 in follow-up on the regular medical floor. He is awake and alert in no acute distress. Sitting up in bed. He denies any worsening shortness of breath, cough or congestion. He is complaining of some nausea this morning. CAT scan of the abdomen revealed no acute abnormalities. There is some office metastatic changes at lung bases. Degenerative changes of lumbar spine. Ostomy is in the left lower quadrant. He remains on Pulmicort and Perforomist inhalations, IV Solu-Medrol and theophylline. Anticoagulated with Eliquis. Objective - Vital Signs Vital signs: Vital Signs Temp 97.9 F 01/02/23 09:50 Pulse 100 01/02/23 12:19 Resp 15 01/02/23 09:50 BP 146/89 01/02/23 09:50 Pulse Ox 95 01/02/23 07:00 FiO2 Intake & Output 01/01/23 01/02/23 01/02/23 18:59 06:59 18:59 Intake Total 960 Output Total 200 800 Balance 760 -800 Intake: Oral 960 Output: Urine 200 800 Other: # Voids 3 2 - Exam GENERAL EXAM: Alert, pleasant 72-year-old male patient, on 3 L nasal cannula, comfortable in no apparent distress. HEAD: Normocephalic. EYES: Normal reaction of pupils, equal size. NOSE: Clear with pink turbinates. THROAT: No erythema or exudates. NECK: No masses, no JVD. CHEST: No chest wall deformity. LUNGS: Equal air entry with no crackles, wheeze, rhonchi or dullness. CVS: S1 and S2 normal with no audible murmur, regular rhythm. ABDOMEN: Ostomy to the left abdomen. Functioning with stool. No hepatosplenomegaly, normal bowel sounds, no guarding or rigidity. SPINE: No scoliosis or deformity SKIN: No rashes CENTRAL NERVOUS SYSTEM: No focal deficits, tone is normal in all 4 extremities. EXTREMITIES: There is no peripheral edema. No clubbing, no cyanosis. Peripheral pulses are intact. - Labs CBC & Chem 7: 12/31/22 05:27 12/31/22 05:27 Assessment and Plan Assessment: Acute on chronic hypoxic respiratory failure secondary to an acute exacerbation of chronic obstructive pulmonary disease. Pro-calcitonin 0.07. Advanced COPD with an FEV1 of 26% of predicted maintained on oxygen and steroids History of acute perforated diverticulitis with abscess formation, status post sigmoid colectomy and end colostomy in July 2022. Computed tomography scan of the abdomen revealed no acute abnormalities. Prostate cancer Acid reflux Hiatal hernia Plan: The patient was seen and evaluated Computed tomography scan of the abdomen and medications reviewed Continue bronchodilators Transitioned to oral steroids Titrate the FiO2 as tolerated We will continue to follow This patient was seen independently by the nurse practitioner I have personally seen and examined the patient, performed the documentation and the assessment and plan as written. Number of minutes spent on the visit: 10.
--- NOTE | 2023-01-02 16:17 | P.GSCN ---
History of Present Illness Consult date: 01/02/23 History of present illness: CHIEF COMPLAINT: Shortness of breath HISTORY OF PRESENT ILLNESS: This is a 72-year-old male who presented with shortness of breath and evidence of a COPD exacerbation. Yesterday patient complains of abdominal pain that started on the right side abdomen that moved across the upper abdomen and wrapped around to the left lower abdomen. He r eports decreased output through the ostomy. He has been having nausea and dry heaves. Denies any vomiting. Patient has a history of perforated diverticulitis with abscess status post sigmoid colectomy with end colostomy on 08/02/2022. Patient reports improvement in abdominal pain. He is tolerating diet. He reports that he is being discharged tomorrow. Patient on Eliquis for history of PE. Patient seen and examined with Dr. meadows. PAST MEDICAL HISTORY: Atrial Fibrillation, Cancer, COPD, GERD/Reflux, Pulmonary Embolus (PE) PAST SURGICAL HISTORY: Bowel Resection, Orthopedic Surgery, Tonsillectomy MEDICATIONS: See below ALLERGIES: See below SOCIAL HISTORY: No illicit drug use. REVIEW OF SYSTEMS: CONSTITUTIONAL: Denies fever or chills. HEENT: Denies blurred vision, vision changes, or eye pain. Denies hemoptysis CARDIOVASCULAR: Denies chest pain or pressure. RESPIRATORY: No shortness of breath. GASTROINTESTINAL: See HPI for pertinent findings HEMATOLOGIC: Denies bleeding disorders. GENITOURINARY: Denies any blood in urine or increased urinary frequency. SKIN: Denies pruitis. Denies rash. PHYSICAL EXAM: VITAL SIGNS: Reviewed GENERAL: Well-developed in no acute distress. HEENT: No sclera icterus. Extraocular movements grossly intact. Moist buccal mucosa. Head is atraumatic, normocephalic. No nasal drainage. ABDOMEN: Soft. Nondistended. Patient has mild tenderness around the ostomy. Small amount stool present in colostomy bag. NEUROLOGIC: Alert and oriented. Cranial nerves II through XII grossly intact. LABORATORY DATA: WBC 13.31 Hgb 12.4 platelets 295 Sodium 139 potassium is 4.9 creatinine 1.0 IMAGING: Computed tomography scan abdomen and pelvis reports no acute abnormality. Emphysematous changes at the lung bases. Degenerative changes within the lumbar spine ASSESSMENT: 1. Abdominal pain improved 2. COPD exacerbation 3. history of perforated diverticulitis with abscess status post sigmoid colectomy with end colostomy on 08/02/2022 PLAN: -No surgical intervention planned -Continue regular diet -Patient to follow-up with Dr. Meadows in office in one week Physician Label Remover note has been reviewed by physician. Signing provider agrees with the documented findings, assessment, and plan of care. Past Medical History Past Medical History: Atrial Fibrillation, Cancer, COPD, GERD/Reflux, Pulmonary Embolus (PE) Additional Past Medical History / Comment(s): positional upper abdominal pain stated when he changes position from laying to sitting and standing. Prostate cancer, pt states he has not undergone any tx for ca. History of Any Multi-Drug Resistant Organisms: None Reported Past Surgical History: Bowel Resection, Orthopedic Surgery, Tonsillectomy Additional Past Surgical History / Comment(s): Right shoulder arthroscopy. Colonoscopy. EGD, colostomy colostomy Past Anesthesia/Blood Transfusion Reactions: No Reported Reaction Additional Past Anesthesia/Blood Transfusion Reaction / Comm: Pt has CLAUSTROPHOBIA Past Psychological History: No Psychological Hx Reported Additional Psychological History / Comment(s): . Smoking Status: Former smoker Past Alcohol Use History: None Reported Additional Past Alcohol Use History / Comment(s): Pt started smokig in 1967, QUIT JULY 2020. Pt quit drinking 20 years ago. Past Drug Use History: None Reported - Past Family History Father Family Medical History: Cancer Mother Family Medical History: Cancer Additional Family Medical History / Comment(s): Mother in her 50s with some form of cancer. Pt/spouse do not recall type of cancer. Medications and Allergies Home Medications Medication Instructions Recorded Confirmed Type Ipratropium-Albuterol Nebulize 3 ml INHALATION RT-QID PRN 07/30/21 12/30/22 History [Duoneb 0.5 mg-3 mg/3 ml Soln] Albuterol Sulfate [Albuterol 1 - 2 puff INHALATION RT-Q6H PRN 10/21/22 12/30/22 History Sulfate Hfa] Apixaban [Eliquis] 5 mg PO BID 10/21/22 12/30/22 History Fluticasone Propion/Salmeterol 1 puff INHALATION RT-BID 10/21/22 12/30/22 History [Advair 250-50 Diskus] Atorvastatin [Lipitor] 80 mg PO HS #90 tab 10/23/22 12/30/22 Rx Isosorbide Mononitrate ER [Imdur] 30 mg PO DAILY 12/15/22 12/30/22 History Theophylline 12 Hour [Robe-Dur] 300 mg PO DAILY 12/15/22 12/30/22 History LORazepam [Ativan] 0.5 mg PO TID PRN 3 Days #9 tab 12/22/22 12/30/22 Rx predniSONE 10 mg PO DAILY 12/30/22 12/30/22 History Allergies Allergy/AdvReac Type Severity Reaction Status Date / Time No Known Allergies Allergy Verified 12/30/22 16:11 Surgical - Exam Vital Signs Temp Pulse Resp BP Pulse Ox 97.9 F 112 H 18 107/63 97 12/30/22 14:08 12/30/22 14:08 12/30/22 14:08 12/30/22 14:08 12/30/22 14:08 Results - Labs 12/31/22 05:27 12/31/22 05:27
[2023-01-02] MEDS ORDERED: METOCLOPRAMIDE 5 MG/ML 2 ML VIAL IVP PRN (17:23)
[2023-01-02 21:09] VITALS: RESP 16
[2023-01-02] MEDS: LORazepam 0.5 MG TAB PO PRN (21:52)
[2023-01-02] MEDS: ATORVASTATIN 80 MG TAB PO SCH (21:52)
[2023-01-03] MEDS: MORPHINE SULFATE 4 MG/ML SYRINGE IV PRN ×2 (01:16→08:26)
[2023-01-03] MEDS: SODIUM CHLORIDE 0.9% 1,000 ML IV SCH (01:18)
[2023-01-03] MEDS: PANTOPRAZOLE 40 MG TABLET PO SCH (06:39)
[2023-01-03 07:43] VITALS: BP 131/86; TEMP 98.8
[2023-01-03] MEDS: THEOPHYLLINE PO SCH (08:21)
[2023-01-03] MEDS: APIXABAN 5 MG TAB PO SCH (08:21)
[2023-01-03] MEDS ORDERED: predniSONE 20 MG TAB PO SCH (09:00)
[2023-01-03] MEDS: IPRATROPIUM-ALBUTEROL 3 ML NEB INHALATION SCH (09:15)
[2023-01-03] MEDS: FORMOTEROL FUMARATE 20 MCG/2 ML NEBU INHALATION SCH (09:19)
[2023-01-03] MEDS: BUDESONIDE 0.5 MG/2 ML NEBU INHALATION SCH (09:19)
[2023-01-03 10:01] VITALS: PULSE 93
--- NOTE | 2023-01-03 11:05 | P.PN ---
Subjective Progress Note Date: 01/03/23 This is a pleasant 72-year-old male patient with a known history of prostate cancer, sigmoid diverticulosis, acute perforated diverticulitis with abscess formation status post sigmoid colectomy and end colostomy performed in July 2022, severe advanced chronic obstructive pulmonary disease with FEV1 value 26% of predicted, oxygen and steroid dependent, gastroesophageal reflux disease, hiatal hernia. If he presented to the emergency room yesterday with complaints of increasing shortness of breath dizziness lightheadedness over the past few days. He has had multiple recent hospital admissions for similar feelings. His x-ray reveals COPD with advanced emphysema and strandy areas of scarring or atele ctasis. White count 13.3. Hemoglobin 12.4. Platelets 295. Sodium 139. Potassium 4.9. Bicarb 24. BUN 22. Creatinine 1.0. Glucose 130. Troponins negative 3. ProBNP 182. He is seen today in consultation on the regular medical floor. He is currently sitting up in bed. Awake and alert in no acute distress. Maintaining good O2 saturations in the mid 90s on 3 L/m per nasal cannula. He is afebrile. Hemodynamically stable. He's been initiated and DuoNeb inhalations, Pulmicort and Perforomist inhalations, Solu-Medrol, theophylline. Anticoagulated with Eliquis. The patient is seen today 01/01/2023 in follow-up on the regular medical floor. He is sitting up in bed. Awake and alert in no acute distress. Maintaining good O2 saturations in the mid 90s on 2 L/m per nasal cannula. Orthostatic blood pressure readings did not reveal any significant hypotension. Abdominal x-ray revealed nonobstructive bowel gas pattern. He is continued on DuoNeb inhalations, Pulmicort inhalations, Solu-Medrol and theophylline. Anticoagulated with Eliquis. The patient is seen today 01/02/2023 in follow-up on the regular medical floor. He is awake and alert in no acute distress. Sitting up in bed. He denies any worsening shortness of breath, cough or congestion. He is complaining of some nausea this morning. CAT scan of the abdomen revealed no acute abnormalities. There is some office metastatic changes at lung bases. Degenerative changes of lumbar spine. Ostomy is in the left lower quadrant. He remains on Pulmicort and Perforomist inhalations, IV Solu-Medrol and theophylline. Anticoagulated with Eliquis. The patient is seen today 01/03/2023 in follow-up on the regular medical floor. He is currently resting comfortably in bed. Awake and alert in no acute distress. He denies any abdominal discomfort this morning. He denies any worsening shortness of breath, cough or congestion. He is currently maintaining good O2 saturations in the mid 90s on room air. He's been afebrile. Hemodynamically stable. He remains on DuoNeb inhalations, Symbicort, theophylline, prednisone taper. Anticoagulated with Eliquis. Objective - Vital Signs Vital signs: Vital Signs Temp 98.8 F 01/03/23 07:00 Pulse 100 01/03/23 09:27 Resp 16 01/03/23 08:00 BP 131/86 01/03/23 07:00 Pulse Ox 96 01/03/23 07:00 FiO2 Intake & Output 01/02/23 01/03/23 01/03/23 18:59 06:59 18:59 Output Total 450 100 425 Balance -450 -100 -425 Output: Urine 450 100 425 Other: Voiding Method Toilet # Voids 2 - Exam GENERAL EXAM: Alert, 72-year-old male patient, comfortable in no apparent distress. HEAD: Normocephalic. EYES: Normal reaction of pupils, equal size. NOSE: Clear with pink turbinates. THROAT: No erythema or exudates. NECK: No masses, no JVD. CHEST: No chest wall deformity. LUNGS: Equal air entry with no crackles, wheeze, rhonchi or dullness. On 2 L nasal cannula CVS: S1 and S2 normal with no audible murmur, regular rhythm. ABDOMEN: Ostomy to the left abdomen. Functioning with stool. No hepatosplenomegaly, normal bowel sounds, no guarding or rigidity. SPINE: No scoliosis or deformity SKIN: No rashes CENTRAL NERVOUS SYSTEM: No focal deficits, tone is normal in all 4 extremities. EXTREMITIES: There is no peripheral edema. No clubbing, no cyanosis. Peripheral pulses are intact. - Labs CBC & Chem 7: 12/31/22 05:27 12/31/22 05:27 Assessment and Plan Assessment: Acute on chronic hypoxic respiratory failure secondary to an acute exacerbation of chronic obstructive pulmonary disease. Pro-calcitonin 0.07. Advanced COPD with an FEV1 of 26% of predicted maintained on oxygen and steroids History of acute perforated diverticulitis with abscess formation, status post sigmoid colectomy and end colostomy in July 2022. Computed tomography scan of the abdomen revealed no acute abnormalities. Prostate cancer Acid reflux Hiatal hernia Plan: The patient was seen and evaluated He is currently stable and no complaints Cleared for discharge from pulmonary standpoint Continue his home pulmonary medications, oxygen Complete prednisone taper down to his maintenance dose Follow-up in our office in 1 week This patient was seen independently by the nurse practitioner I have personally seen and examined the patient, performed the documentation and the assessment and plan as written. Number of minutes spent on the visit: 20.
--- NOTE | 2023-01-03 13:18 | P.DS ---
Providers Date of admission: 12/30/22 17:31 Expected date of discharge: 01/03/23 Attending physician: Linette Obrien MD Consults: 12/30/22 17:31 Consult Physician Routine Consulting Provider: Arina Pérez Consult Reason/Comments: known Do you want consulting provider notified?: Yes 01/02/23 10:39 Consult Physician Routine Consulting Provider: Reynold Moyer Consult Reason/Comments: Abd pain, known patient Do you want consulting provider notified?: Yes Primary care physician: Maico Pope [facility] Course: Presyncope Abdominal pain with history of perforated diverticulitis status post colostomy Acute on chronic COPD exacerbation Leukocytosis Chronic conditions: Chronic respiratory failure on 2 L nasal cannula, bilateral PE, hypertension, dyslipidemia Hospital Course: Patient is a 72-year-old male with a PMH of COPD with chronic hypoxic respiratory failure on 2 L is cannula oxygen continuously at home, recent bilateral PEs on Eliquis, recent perforated diverticulitis status post colostomy who presents to the emergency room with complaints of shortness of breath. Symptoms started this morning. Associated with wheezing. Attempted nebulized treatments with mild relief. He reports compliance with his Eliquis at home. The patient also reports chronic cough which is productive of whitish phlegm unchanged. He denies any chest pain, palpitations, fever or chills, nausea or vomiting, changes in urination or bowel habits. No changes in appetite or weight. He denies any dizziness, numbness/weakness/tingling of the extremities. In the ED, he was noted to be tachycardic with heart rate in the low 100s. He was saturating 97% on 3 L is cannula. CBC showed leukocytosis of 11.5 with neutrophilia. INR was 0.9. CMP showed BUN of 22, glucose of 127 and total protein of 6.1. Lactic acid 1.3. Troponin less than 0.012. BNP 182. EKG showed sinus tachycardia with PVCs. Chest x-ray showed COPD with advanced emphysema. 12/31 Patient was seen and examined. Reports continued SOB. Cough with blood tinged sputum. CBC shows WBC 13.31, Hg 12.4. CMP glucose 130. Troponins < 0.012 x 3. Pulmonology recommends procalcitonin and continued treatment with bronc hodilators. 01/01 Patient was seen and examined. Last night, when attempting to stand up to go to the bathroom, patient reported lightheadedness and feeling like passing out. Vital signs were stable at that time. This morning, he had an episode of abdominal pain, RUQ radiating to the left side, sharp and stabbing, associated with feeling bloated, lasting 4 seconds. 01/02 Patient was seen and examined. He continues to report sharp and stabbing abdominal pain RUQ to L abdomen. This pain occurs multiple times per day. Associated with nausea but no vomiting. His breathing is stable. Orthostats done yesterday and today were negative but felt lightheaded during the test when standing. KUB was non specific. 01/03 Patient returned to baseline oxygenation status, and reported feeling back to normal in terms of dyspnea. Cleared by pulmonology. Discharged home with prednisone 40mg daily with plans to f/u with pulmonology in clinic. I spent 36 minutes coordinating this discharge on 01/03 Gen: awake, alert HEENT: normocephalic, atraumatic, good hearing acuity, moist mucous membranes Resp: poor air exchange with mild end-expiratory wheezing CVS: good distal perfusion x 4, GI: soft, NTTP, ND : no SPT, no CVAT, cardenas catheter not present MSK: no pitting edema, no clubbing Neuro: non-focal, moving all extremities Psych: cooperative, euthymic mood Patient Condition at Discharge: Good Plan - Discharge Summary New Discharge Prescriptions: New predniSONE [Deltasone] 40 mg PO DAILY #10 tab Pantoprazole [Protonix] 40 mg PO AC-BRKFST #15 tab Budesonide-Formot 160-4.5 Mcg [Symbicort 160-4.5 Mcg Inhaler] 2 puff INHALATION RT-BID #1 each Acetaminophen Tab [Tylenol] 650 mg PO Q6HR PRN tab PRN Reason: Mild Pain (Scale 1 To 3) Continue Ipratropium-Albuterol Nebulize [Duoneb 0.5 mg-3 mg/3 ml Soln] 3 ml INHALATION RT-QID PRN PRN Reason: Shortness Of Breath Albuterol Sulfate [Albuterol Sulfate Hfa] 1 - 2 puff INHALATION RT-Q6H PRN PRN Reason: Shortness Of Breath Atorvastatin [Lipitor] 80 mg PO HS #90 tab Theophylline 12 Hour [Robe-Dur] 300 mg PO DAILY Apixaban [Eliquis] 5 mg PO BID LORazepam [Ativan] 0.5 mg PO TID PRN 3 Days #9 tab PRN Reason: Anxiety Discontinued Fluticasone Propion/Salmeterol [Advair 250-50 Diskus] 1 puff INHALATION RT- BID predniSONE 10 mg PO DAILY Isosorbide Mononitrate ER [Imdur] 30 mg PO DAILY Discharge Medication List Ipratropium-Albuterol Nebulize [Duoneb 0.5 mg-3 mg/3 ml Soln] 3 ml INHALATION RT-QID PRN 07/30/21 [History] Albuterol Sulfate [Albuterol Sulfate Hfa] 1 - 2 puff INHALATION RT-Q6H PRN 10/21/22 [History] Apixaban [Eliquis] 5 mg PO BID 10/21/22 [History] Atorvastatin [Lipitor] 80 mg PO HS #90 tab 10/23/22 [Rx] Theophylline 12 Hour [Robe-Dur] 300 mg PO DAILY 12/15/22 [History] LORazepam [Ativan] 0.5 mg PO TID PRN 3 Days #9 tab 12/22/22 [Rx] Acetaminophen Tab [Tylenol] 650 mg PO Q6HR PRN tab 01/03/23 [Rx] Budesonide-Formot 160-4.5 Mcg [Symbicort 160-4.5 Mcg Inhaler] 2 puff INHALATION RT-BID #1 each 01/03/23 [Rx] Pantoprazole [Protonix] 40 mg PO AC-BRKFST #15 tab 01/03/23 [Rx] predniSONE [Deltasone] 40 mg PO DAILY #10 tab 01/03/23 [Rx] Follow up Appointment(s)/Referral(s): Maico Anders MD [Primary Care Provider] - 1-2 days Reynold Moyer MD [STAFF PHYSICIAN] - 01/09/23 11:45 am Discharge Disposition: HOME WITH HOME HEALTH SERVICES
--- NOTE | 2023-01-03 14:12 | P.PN ---
Subjective Progress Note Date: 01/03/23 CHIEF COMPLAINT: Abdominal pain HISTORY OF PRESENT ILLNESS: Patient reports that he had abdominal pain earlier. This has resolved. His ostomy is functioning. He is tolerating diet. Afebrile. PHYSICAL EXAM: VITAL SIGNS: Reviewed. GENERAL: Well-developed in no acute distress. ABDOMEN: Soft. Nondistended. Nontender. NEUROLOGIC: Alert and oriented. Cranial nerves II through XII grossly intact. ASSESSMENT: 1. Abdominal pain improved 2. COPD exacerbation 3. history of perforated diverticulitis with abscess status post sigmoid colectomy with end colostomy on 08/02/2022 PLAN: -Patient is stable for discharge from surgical standpoint -Recommend outpatient follow-up in one week with Dr. Moyer Physician [employer] note has been reviewed by physician. Signing provider agrees with the documented findings, assessment, and plan of care. Objective - Vital Signs Vital signs: Vital Signs Temp 98.8 F 01/03/23 07:00 Pulse 100 01/03/23 09:27 Resp 16 01/03/23 08:00 BP 131/86 01/03/23 07:00 Pulse Ox 96 01/03/23 07:00 FiO2 Intake & Output 01/02/23 01/03/23 01/03/23 18:59 06:59 18:59 Output Total 450 100 425 Balance -450 -100 -425 Output: Urine 450 100 425 Other: Voiding Method Toilet # Voids 2 - Labs CBC & Chem 7: 12/31/22 05:27 12/31/22 05:27
[2023-01-03] MEDS ORDERED: SYMBICORT 160-4.5 MCG INHALER INHALATION SCH (20:00)
== END 2023-01-03 11:08 | disposition home health service (06) ==
LOC: EC 13:55 → 6NMEDSUR 17:31
PROVIDERS: ADMIT Internal Medicine; ATTEND Internal Medicine
DX: R55 Syncope and collapse (principal); R10.9 Unspecified abdominal pain; J44.1 Chronic obstructive pulmonary disease with (acute) exacerbation; J96.21 Acute and chronic respiratory failure with hypoxia; R11.0 Nausea; I48.91 Unspecified atrial fibrillation; K21.9 Gastro-esophageal reflux disease without esophagitis; D72.829 Elevated white blood cell count, unspecified; I10 Essential (primary) hypertension; E78.5 Hyperlipidemia, unspecified; K44.9 Diaphragmatic hernia without obstruction or gangrene; Z86.711 Personal history of pulmonary embolism; Z85.46 Personal history of malignant neoplasm of prostate; Z93.3 Colostomy status; Z87.891 Personal history of nicotine dependence; Z90.49 Acquired absence of other specified parts of digestive tract; Z99.81 Dependence on supplemental oxygen; Z79.01 Long term (current) use of anticoagulants; Z79.899 Other long term (current) drug therapy; Z79.51 Long term (current) use of inhaled steroids; Z79.52 Long term (current) use of systemic steroids
CPT/HCPCS: 96376 ×5; 96361 ×2; 96375 ×3; 96374; 99285; 36415; 94640 ×10; 93005; 83880; 80053 ×2; 83605; 83735 ×2; 84100; 84484; 85025 ×2; 85610; 85730; 84145; 71045; 74018; 74176; G0378 ×5; J2270 ×5; J2765; J2930 ×4; J2405 ×2; J7512; C9113

== ENCOUNTER 2023-01-24 16:50 | Inpatient (IN) | payer MEDICARE, OTHER ==
[2023-01-24] MEDS ORDERED: SODIUM CHLORIDE 0.9% 500 ML 500 ML IV STA (18:15)
--- NOTE | 2023-01-24 18:41 | ED ---
General Adult HPI - General Chief complaint: Fall Stated complaint: fall- rt arm injury Time Seen by Provider: 01/24/23 17:35 Source: patient, family, RN notes reviewed, old records reviewed Mode of arrival: ambulatory Limitations: no limitations - History of Present Illness Initial comments: This is a 73-year-old male who presents emergency Department complaining about a right wrist injury after he fell today patient states he he thinks he did pass o ut in the next thing he remembered was being on the ground. states he never was completely unconscious. Patient states he got up to walk across the room and he got lightheaded and he felt like this in the past that makes a note he was on the ground he denies any headache denies any lightheadedness. Patient states he hit the side of his face on the ground and he is on eliquis. Patient denies chest pain palpitations difficulty breathing or shortness of breath. Patient denies any recent fever chills or cough per patient denies abdominal pain patient denies nausea vomiting diarrhea. - Related Data Home Medications Medication Instructions Recorded Confirmed Ipratropium-Albuterol Nebulize 3 ml INHALATION RT-QID PRN 07/30/21 12/30/22 [Duoneb 0.5 mg-3 mg/3 ml Soln] Albuterol Sulfate [Albuterol 1 - 2 puff INHALATION RT-Q6H PRN 10/21/22 12/30/22 Sulfate Hfa] Apixaban [Eliquis] 5 mg PO BID 10/21/22 12/30/22 Theophylline 12 Hour [Robe-Dur] 300 mg PO DAILY 12/15/22 12/30/22 Previous Rx's Medication Instructions Recorded Atorvastatin [Lipitor] 80 mg PO HS #90 tab 10/23/22 LORazepam [Ativan] 0.5 mg PO TID PRN 3 Days #9 tab 12/22/22 Acetaminophen Tab [Tylenol] 650 mg PO Q6HR PRN tab 01/03/23 Budesonide-Formot 160-4.5 Mcg 2 puff INHALATION RT-BID #1 each 01/03/23 [Symbicort 160-4.5 Mcg Inhaler] Pantoprazole [Protonix] 40 mg PO AC-BRKFST #15 tab 01/03/23 predniSONE [Deltasone] 40 mg PO DAILY #10 tab 01/03/23 Allergies Allergy/AdvReac Type Severity Reaction Status Date / Time No Known Allergies Allergy Verified 12/30/22 16:11 Review of Systems ROS Statement: Those systems with pertinent positive or pertinent negative responses have been documented in the HPI. ROS Other: All systems not noted in ROS Statement are negative. Past Medical History Past Medical History: Atrial Fibrillation, Cancer, COPD, GERD/Reflux, Pulmonary Embolus (PE) Additional Past Medical History / Comment(s): positional upper abdominal pain stated when he changes position from laying to sitting and standing. Prostate cancer, pt states he has not undergone any tx for ca. History of Any Multi-Drug Resistant Organisms: None Reported Past Surgical History: Bowel Resection, Orthopedic Surgery, Tonsillectomy Additional Past Surgical History / Comment(s): Right shoulder arthroscopy. Colonoscopy. EGD, colostomy colostomy Past Anesthesia/Blood Transfusion Reactions: No Reported Reaction Additional Past Anesthesia/Blood Transfusion Reaction / Comment(s): Pt has CLAUSTROPHOBIA Past Psychological History: No Psychological Hx Reported Smoking Status: Former smoker Past Alcohol Use History: None Reported Past Drug Use History: None Reported - Past Family History Father Family Medical History: Cancer Mother Family Medical History: Cancer Additional Family Medical History / Comment(s): Mother in her 50s with some form of cancer. Pt/spouse do not recall type of cancer. General Exam - General Exam Comments Initial Comments: GENERAL: Patient is well-developed and well-nourished. Patient is nontoxic and well- hydrated and is in mild distress. ENT: Neck is soft and supple. No significant lymphadenopathy is noted. Oropharynx is clear. Moist mucous membranes. Neck has full range of motion without eliciting any pain. No obvious trauma to the side of the face or head EYES: The sclera were anicteric and conjunctiva were pink and moist. Extraocular movements were intact and pupils were equal round and reactive to light. Eyelids were unremarkable. PULMONARY: Unlabored respirations. Good breath sounds bilaterally. No audible rales rhonchi or wheezing was noted. CARDIOVASCULAR: Patient is tachycardic at about 110 beats a minute ABDOMEN: Soft and nontender with normal bowel sounds. SKIN: Skin is clear with no lesions or rashes and otherwise unremarkable. NEUROLOGIC: Patient is alert and oriented x3. Cranial nerves II through XII are grossly intact. Motor and sensory are also intact. Normal speech, volume and content. Symmetrical smile. MUSCULOSKELETAL: Normal extremities with adequate strength and full range of motion. Wrist is exquisitely tender in the posterior aspect of the right wrist no gross abnormality is noted LYMPHATICS: No significant lymphadenopathy is noted PSYCHIATRIC: Normal psychiatric evaluation. Limitations: no limitations Course Vital Signs 01/24/23 01/24/23 01/24/23 17:26 18:53 20:24 Temperature 98.6 F Pulse Rate 116 H 102 H 95 Respiratory 20 18 16 Rate Blood Pressure 97/60 122/80 125/91 O2 Sat by Pulse 95 96 97 Oximetry Medical Decision Making - Medical Decision Making EKG was interpreted by myself. EKG shows a sinus rhythm at a rate of 95 bpm AK interval 218 QRS is 70 QT interval is 324 QTC is 377. Patient's EKG has PVCs PVCs are upon the T-wave. I sent the EKG to Dr. Hernandez he evaluated the iman ent and suggested admission. Was pt. sent in by a medical professional or institution (, PA, BOX TOE CEMENTER, urgent care, hospital, or custodial...) When possible be specific @ -No Did you speak to anyone other than the patient for history (EMS, parent, family, police, friend...)? What history was obtained from this source @ -No Did you review nursing and triage notes (agree or disagree)? Why? @ -I reviewed and agree with nursing and triage notes Were old charts reviewed (outside hosp., previous admission, EMS record, old EKG, old radiological studies, urgent care reports/EKG's, custodial records)? Report findings @ -Reviewed prior charts her laboratory prior leg radiological studies Differential Diagnosis (chest pain, altered mental status, abdominal pain women, abdominal pain men, vaginal bleeding, weakness, fever, dyspnea, syncope, headache, dizziness, GI bleed, back pain, seizure, CVA, palpatations, mental health, musculoskeletal)? @ -Differential Weakness: Hypoglycemia, shock, sepsis, hyponatremia, anemia, infection, IA, ETOH, adverse medicine reaction, overdose, stroke, this is not meant to be an all-inclusive list. EKG interpreted by me (3pts min.). @ -As above X-rays interpreted by me (1pt min.). @ -X-ray of the patient's forearm showed no acute abnormality. Chest x-ray showed no acute abnormality CT interpreted by me (1pt min.). @ -CT of the brain and C-spine showed no acute abnormality U/S interpreted by me (1pt. min.). @ -None done What testing was considered but not performed or refused? (CT, X-rays, U/S, labs)? Why? @ -None What meds were considered but not given or refused? Why? @ -None Did you discuss the management of the patient with other professionals (professionals i.e. , PA, BOX TOE CEMENTER, lab, RT, psych nurse, director social welfare, survey rodman, teacher, law enforcement officer, child support case officer)? Give summary @ -I spoke with sound physician's they agreed to admit the patient and the patient wrote admitting orders Was smoking cessation discussed for >3mins.? @ -No Was critical care preformed (if so, how long)? @ -No Were there social determinants of health that impacted care today? How? (Homelessness, low income, unemployed, alcoholism, drug addiction, transportation, low edu. Level, literacy, decrease access to med. care, penitentiary, rehab)? @ -No Was there de-escalation of care discussed even if they declined (Discuss DNR or withdrawal of care, Hospice)? DNR status @ -No What co-morbidities impacted this encounter? (DM, HTN, Smoking, COPD, CAD, Cancer, CVA, ARF, Chemo, Hep., AIDS, mental health diagnosis, sleep apnea, morbid obesity)? @ -None Was patient admitted / discharged? Hospital course, mention meds given and route, prescriptions, significant lab abnormalities, going to OR and other pertinent info. @ -Patient had no fracture wrist. Patient's head CT and neck CT were normal. Patient was having a concerning PVCs that were close to the previous QRS spoke with cardiology they agreed that the patient should be admitted admitted the patient is sound physician's and I consult cardiology. Undiagnosed new problem with uncertain prognosis? @ -No Drug Therapy requiring intensive monitoring for toxicity (Heparin, Nitro, Insulin, Cardizem)? @ -No Were any procedures done? @ -No Diagnosis/symptom? @ -Near syncope Acute, or Chronic, or Acute on Chronic? @ -Acute Uncomplicated (without systemic symptoms) or Complicated (systemic symptoms)? @ -Complicated Side effects of treatment? @ -No Exacerbation, Progression, or Severe Exacerbation? @ -No Poses a threat to life or bodily function? How? (Chest pain, USA, IA, pneumonia, PE, COPD, DKA, ARF, appy, cholecystitis, CVA, Diverticulitis, Homicidal, Suicidal, threat to staff... and all critical care pts) @ -Yes this could lead to an arrhythmia and Diagnosis/symptom? @ -Wrist sprain Acute, or Chronic, or Acute on Chronic? @ -Acute Uncomplicated (without systemic symptoms) or Complicated (systemic symptoms)? @ -Uncomplicated Side effects of treatment? @ -none Exacerbation, Progression, or Severe Exacerbation] @ -no Poses a threat to life or bodily function? @ -no - Lab Data Result diagrams: 01/24/23 18:45 01/24/23 18:45 Lab Results 01/24/23 01/24/23 01/24/23 Range/Units 18:45 18:45 18:45 WBC 8.6 (3.8-10.6) k/uL RBC 4.29 L (4.30-5.90) m/uL Hgb 13.0 (13.0-17.5) gm/dL Hct 39.2 (39.0-53.0) % MCV 91.3 (80.0-100.0) fL MCH 30.4 (25.0-35.0) pg MCHC 33.3 (31.0-37.0) g/dL RDW 15.1 (11.5-15.5) % Plt Count 295 (150-450) k/uL MPV 7.3 Neutrophils % 80 % Lymphocytes % 12 % Monocytes % 6 % Eosinophils % 0 % Basophils % 0 % Neutrophils # 6.9 (1.3-7.7) k/uL Lymphocytes # 1.1 (1.0-4.8) k/uL Monocytes # 0.5 (0-1.0) k/uL Eosinophils # 0.0 (0-0.7) k/uL Basophils # 0.0 (0-0.2) k/uL PT 9.5 L (10.0-12.5) sec INR 0.8 (<1.2) APTT 24.5 (22.0-30.0) sec Sodium 138 (137-145) mmol/L Potassium 3.9 (3.5-5.1) mmol/L Chloride 100 (98-107) mmol/L Carbon Dioxide 32 H (22-30) mmol/L Anion Gap 6 mmol/L BUN 32 H (9-20) mg/dL Creatinine 1.26 H (0.66-1.25) mg/dL Est GFR (CKD-EPI)AfAm 65 (>60 ml/min/1.73 sqM) Est GFR (CKD-EPI)NonAf 56 (>60 ml/min/1.73 sqM) Glucose 103 H (74-99) mg/dL Plasma Lactic Acid Luciano (0.7-2.0) mmol/L Calcium 9.1 (8.4-10.2) mg/dL Magnesium 2.2 (1.6-2.3) mg/dL Total Bilirubin 0.5 (0.2-1.3) mg/dL AST 27 (17-59) U/L ALT 33 (4-49) U/L Alkaline Phosphatase 68 (38-126) U/L Troponin I (0.000-0.034) ng/mL Total Protein 5.9 L (6.3-8.2) g/dL Albumin 3.5 (3.5-5.0) g/dL Urine Color Urine Appearance (Clear) Urine pH (5.0-8.0) Ur Specific [place] (1.001-1.035) Urine Protein (Negative) Urine Glucose (UA) (Negative) Urine Ketones (Negative) Urine Blood (Negative) Urine Nitrite (Negative) Urine Bilirubin (Negative) Urine Urobilinogen (<2.0) mg/dL Ur Leukocyte Esterase (Negative) 01/24/23 01/24/23 01/24/23 Range/Units 18:45 18:45 18:45 WBC (3.8-10.6) k/uL RBC (4.30-5.90) m/uL Hgb (13.0-17.5) gm/dL Hct (39.0-53.0) % MCV (80.0-100.0) fL MCH (25.0-35.0) pg MCHC (31.0-37.0) g/dL RDW (11.5-15.5) % Plt Count (150-450) k/uL MPV Neutrophils % % Lymphocytes % % Monocytes % % Eosinophils % % Basophils % % Neutrophils # (1.3-7.7) k/uL Lymphocytes # (1.0-4.8) k/uL Monocytes # (0-1.0) k/uL Eosinophils # (0-0.7) k/uL Basophils # (0-0.2) k/uL PT (10.0-12.5) sec INR (<1.2) APTT (22.0-30.0) sec Sodium (137-145) mmol/L Potassium (3.5-5.1) mmol/L Chloride (98-107) mmol/L Carbon Dioxide (22-30) mmol/L Anion Gap mmol/L BUN (9-20) mg/dL Creatinine (0.66-1.25) mg/dL Est GFR (CKD-EPI)AfAm (>60 ml/min/1.73 sqM) Est GFR (CKD-EPI)NonAf (>60 ml/min/1.73 sqM) Glucose (74-99) mg/dL Plasma Lactic Acid Luciano 0.9 (0.7-2.0) mmol/L Calcium (8.4-10.2) mg/dL Magnesium (1.6-2.3) mg/dL Total Bilirubin (0.2-1.3) mg/dL AST (17-59) U/L ALT (4-49) U/L Alkaline Phosphatase (38-126) U/L Troponin I 0.012 (0.000-0.034) ng/mL Total Protein (6.3-8.2) g/dL Albumin (3.5-5.0) g/dL Urine Color Colorless Urine Appearance Clear (Clear) Urine pH 6.0 (5.0-8.0) Ur Specific [place] 1.016 (1.001-1.035) Urine Protein Negative (Negative) Urine Glucose (UA) Negative (Negative) Urine Ketones Negative (Negative) Urine Blood Negative (Negative) Urine Nitrite Negative (Negative) Urine Bilirubin Negative (Negative) Urine Urobilinogen <2.0 (<2.0) mg/dL Ur Leukocyte Esterase Negative (Negative) Disposition Clinical Impression: Fall, Wrist sprain, Near syncope Disposition: ADMITTED IP TO THIS [facility] Referrals: Maico Anders MD [Primary Care Provider] - 1-2 days Time of Disposition: 21:01
[2023-01-24 19:08] LABS: Basophils % (A) 0 %; Eosinophils % (A) 0 %; HCT 39.2 % (39.0-53.0); Lymphocytes # (A) 1.1 k/uL (1.0-4.8); Lymphocytes % (A) 12 %; MCH 30.4 pg (25.0-35.0); MCHC 33.3 g/dL (31.0-37.0); MCV 91.3 fL (80.0-100.0); Mean Platelet Volume 7.3; Monocytes # (A) 0.5 k/uL (0-1.0); Monocytes % (A) 6 %; Neutrophils # (A) 6.9 k/uL (1.3-7.7); Neutrophils % (A) 80 %; Platelet Count 295 k/uL (150-450); RBC 4.29 m/uL (4.30-5.90); RDW 15.1 % (11.5-15.5); WBC 8.6 k/uL (3.8-10.6)
[2023-01-24 19:20] LABS: ALT 33 U/L (4-49); AST 27 U/L (17-59); African American GFR (CKD) 65 (>60 ml/min/1.73 sqM); Albumin 3.5 g/dL (3.5-5.0); Alkaline Phosphatase 68 U/L (38-126); Anion Gap 6 mmol/L; Blood Urea Nitrogen 32 mg/dL (9-20); Calcium 9.1 mg/dL (8.4-10.2); Carbon Dioxide 32 mmol/L (22-30); Chloride 100 mmol/L (98-107); Glucose 103 mg/dL (74-99); Magnesium 2.2 mg/dL (1.6-2.3); Non-African American GFR(CKD) 56 (>60 ml/min/1.73 sqM); Potassium 3.9 mmol/L (3.5-5.1); Sodium 138 mmol/L (137-145); Total Bilirubin 0.5 mg/dL (0.2-1.3); Total Protein 5.9 g/dL (6.3-8.2)
[2023-01-24 19:27] LABS: INR 0.8 (<1.2); Partial Thromboplastin Time 24.5 sec (22.0-30.0); Prothrombin Time 9.5 sec (10.0-12.5)
--- NOTE | 2023-01-24 19:43 | CT ---
EXAMINATION TYPE: CT brain cspine wo con CT DLP: 1319.6 mGycm, Automated exposure control for dose reduction was used. DATE OF EXAM: 01/24/2023 7:14 PM COMPARISON: None. CLINICAL INDICATION:Male, 73 years old with history of Trauma; multiple recent falls TECHNIQUE: Brain: Multiple axial CT images of the brain were obtained without IV contrast. Cspine: Axial CT images from the skull base to the inferior aspect of T2 we obtained without intraven ous contrast. Coronal and sagittal reformatted images were also reviewed. FINDINGS: Brain: Extra-axial spaces: No abnormal extra-axial fluid collections. Ventricular system: Dilatation in proportion to cerebral atrophy. Cerebral parenchyma: Cerebral atrophy. No acute intraparenchymal hemorrhage or mass effect. The kendall -white junction is well differentiated. Scattered hypoattenuating areas are seen within the white mat ter. Cerebellum: Unremarkable. Mass effect: No evidence of midline shift. Intracranial vasculature: Atherosclerotic calcifications of the intracranial vessels. Soft tissues: Normal. Calvarium/osseous structures: No depressed skull fracture. Paranasal sinuses and mastoid air cells: Clear. Visualized orbits: Bilateral aphakia Cervical spine: Fracture: None. Osseous structures: Multilevel degenerative disc disease changes with endplate spurring and disc oste ophyte complex's. Vertebral alignment: Within normal limits. Spinal canal/Neural Foramina: Disc osteophyte complexes at C3-C7 with at least mild spinal canal sten osis. Facet joint uncovertebral joint arthropathy scattered throughout the cervical spine with varyin g degrees of neural foraminal stenosis. Neck soft tissues: Prevertebral soft tissues are within normal limits. Other: The airway is patent. Moderate paraseptal and centrilobular emphysema changes. IMPRESSION: 1. No acute intracranial process. 2. Nonspecific white matter changes, likely secondary to chronic small vessel ischemic disease. 3. No evidence of cervical spine fracture. 4. Moderate emphysema. 5. Moderate multilevel degenerative disc disease.
--- NOTE | 2023-01-24 19:44 | XR ---
EXAMINATION TYPE: XR chest 2V DATE OF EXAM: 01/24/2023 7:20 PM CLINICAL INDICATION:Male, 73 years old with history of Weakness; COMPARISON: Chest radiographs from 12/30/2022 TECHNIQUE: XR chest 2V Frontal and lateral views of the chest. FINDINGS: Lungs/Pleura: There is flattening of the diaphragm with increased lucency of the lungs. No evidence o f pneumothorax, pleural effusion or focal consolidation. Pulmonary vascularity: Unremarkable. Heart/mediastinum: Cardiomediastinal silhouette is unremarkable. Musculoskeletal: No acute osseous pathology. IMPRESSION: 1. No acute cardiopulmonary disease process. 2. COPD changes.
--- NOTE | 2023-01-24 19:45 | XR ---
EXAMINATION TYPE: XR wrist complete RT DATE OF EXAM: 01/24/2023 7:20 PM CLINICAL INDICATION:Male, 73 years old with history of Trauma; [facility] COMPARISON: None TECHNIQUE: XR wrist complete RT; examined in the Frontal, navicular, lateral, and oblique. FINDINGS: No acute osseous pathology, joint dislocation, or joint effusion. No evidence of any soft tissue swelling is seen. IMPRESSION: No acute osseous pathology.
[2023-01-24] MEDS ORDERED: KETOROLAC 15 MG/ML 1 ML VIAL IVP STA (20:53)
[2023-01-24] MEDS ORDERED: HYDROmorphone 0.5 MG/0.5 ML SYRINGE IVP STA (20:53)
[2023-01-24 20:54] LABS: Appearance,Urine Clear (Clear); Bilirubin,Urine Negative (Negative); Blood,Urine Negative (Negative); Color,Urine Colorless; Glucose,Urine (UA) Negative (Negative); Ketones,Urine Negative (Negative); Leukocyte Esterase,Urine Negative (Negative); Nitrite,Urine Negative (Negative); Protein,Urine Negative (Negative); Specific Gravity,Urine 1.016 (1.001-1.035); Urobilinogen,Urine <2.0 mg/dL (<2.0)
[2023-01-24] MEDS ORDERED: NITROGLYCERIN SL TABS 0.4 MG TAB SUBLINGUAL PRN (21:01)
--- NOTE | 2023-01-25 00:53 | P.HPIM ---
History of Present Illness H&P Date: 01/24/23 Patient is a 73-year-old male with a PMH of recent PEs on Eliquis, COPD with chronic hypoxic respiratory failure on 2 L is a cannula continuously at home, perforated diverticulitis status post colostomy, and hyperlipidemia who presents to the emergency room for syncopal episodes. Patient notes that he has had multiple episodes of loss of consciousness over the past few weeks. Reports that at around 2 PM earlier today, as he tried to get up from a chair became lightheaded and subsequently sat back down. He then stood back up after a minute or 2 and the next thing he knew, he was on the ground. He does report hitting his head but as per the ED documentation, the patient's had noted that he did not fully lose consciousness. The patient does not recall the episode completely but states that he hurt his right wrist in the fall. He denied experiencing a prodrome of chest discomfort, shortness of breath, or palpitations. Also denied experiencing tongue biting, urinary incontinence, or shaking movements. Reports that this episode was similar to the prior ones over the past few weeks. Also denied experiencing focal weakness, numbness, tingling, fever, chills, cough, abdominal pain, diarrhea. In the emergency room, a head/cervical spine CT revealed no acute abnormalities. Chest x-ray was unremarkable. A wrist x-ray was also unremarkable. EKG was sinus rhythm with short NC interval with PVCs concerning for R-on-T phenomenon at 95 bpm. Laboratory evaluation is remarkable for BUN 32, creatinine 1.26, troponin 0.012, with an unremarkable UA. ED documentation reviewed and case discussed with ED provider. Review of systems: Pertinent positives and negatives as discussed in HPI, a complete review of systems was performed and all other systems are negative. Physical examination: Vital signs reviewed General: non toxic, no distress, appears at stated age, normal weight Derm: no unusual rashes/lesions, warm Head: atraumatic, normocephalic, symmetric Eyes: EOMI, no lid lag, anicteric sclera, pupils equal round reactive to light ENT: Nose and ears atraumatic Neck: No cervical lymphadenopathy, trachea midline, supple Mouth: no lip lesion, mucus membranes moist Cardiovascular: S1S2 reg, no murmur, positive dorsalis pedis pulse bilateral, no edema Lungs: CTA bilateral, no rhonchi, no rales, no accessory muscle use Abdominal: soft, nontender to palpation, no guarding, colostomy in place with pink stoma noted with an empty bag Ext: muscle strength 5 out of 5 in all 4 extremities grossly, no gross muscle atrophy, no contractures, Neuro: CN II-XI grossly intact, no gross focal neuro deficits Psych: Alert, oriented, appropriate affect Assessment: Syncope with EKG possibly concerning for R-on-T phenomenon Acute kidney injury Chronic conditions: History of PE, COPD, status post colostomy, hyperlipidemia Imaging: In the emergency room, a head/cervical spine CT revealed no acute abnormalities. Chest x-ray was unremarkable. A wrist x-ray was also unremarkable. EKG was sinus rhythm with short NC interval with PVCs concerning for R-on-T phenomenon at 95 bpm. Data Review: Laboratory evaluation is remarkable for BUN 32, creatinine 1.26, troponin 0.012, with an unremarkable UA. Plan: Cardiac monitoring Echocardiogram Cardiology consulted Obtain orthostatics Fall precautions Monitor BMP Continue home medications DVT prophylaxis: Eliquis The patient is admitted with an anticipated greater than 2 midnight stay for evaluation of PE CODE STATUS: Full Code Discussed with: Patient Anticipated discharge place: Home Past Medical History Past Medical History: Atrial Fibrillation, Cancer, COPD, GERD/Reflux, Pulmonary Embolus (PE) Additional Past Medical History / Comment(s): positional upper abdominal pain stated when he changes position from laying to sitting and standing. Prostate cancer, pt states he has not undergone any tx for ca. History of Any Multi-Drug Resistant Organisms: None Reported Past Surgical History: Bowel Resection, Orthopedic Surgery, Tonsillectomy Additional Past Surgical History / Comment(s): Right shoulder arthroscopy. Colonoscopy. EGD, colostomy colostomy Past Anesthesia/Blood Transfusion Reactions: No Reported Reaction Additional Past Anesthesia/Blood Transfusion Reaction / Comment(s): Pt has CLAUSTROPHOBIA Past Psychological History: No Psychological Hx Reported Smoking Status: Former smoker Past Alcohol Use History: None Reported Past Drug Use History: None Reported - Past Family History Father Family Medical History: Cancer Mother Family Medical History: Cancer Additional Family Medical History / Comment(s): Mother in her 50s with some form of cancer. Pt/spouse do not recall type of cancer. Medications and Allergies Home Medications Medication Instructions Recorded Confirmed Type Ipratropium-Albuterol Nebulize 3 ml INHALATION RT-QID PRN 05/13/22 11/07/23 History [Duoneb 0.5 mg-3 mg/3 ml Soln] Albuterol Sulfate [Albuterol 1 - 2 puff INHALATION RT-Q6H PRN 10/21/22 01/24/23 History Sulfate Hfa] Apixaban [Eliquis] 5 mg PO BID 10/21/22 01/24/23 History Atorvastatin [Lipitor] 80 mg PO HS #90 tab 10/23/22 01/24/23 Rx Theophylline 12 Hour [Robe-Dur] 300 mg PO DAILY 12/15/22 01/24/23 History LORazepam [Ativan] 0.5 mg PO TID PRN 3 Days #9 tab 12/22/22 01/24/23 Rx Acetaminophen Tab [Tylenol] 650 mg PO Q6HR PRN tab 01/03/23 01/24/23 Rx Budesonide-Formot 160-4.5 Mcg 2 puff INHALATION RT-BID #1 each 01/03/23 01/24/23 Rx [Symbicort 160-4.5 Mcg Inhaler] Pantoprazole [Protonix] 40 mg PO AC-BRKFST #15 tab 01/03/23 01/24/23 Rx Furosemide [Lasix] 20 mg PO DAILY 01/24/23 01/24/23 History Allergies Allergy/AdvReac Type Severity Reaction Status Date / Time No Known Allergies Allergy Verified 01/24/23 22:11 Physical Exam Vitals: Vital Signs Temp Pulse Pulse Resp BP BP Pulse Ox 01/25/23 00:00 97.1 F L 93 14 120/93 97 01/24/23 23:30 88 16 120/93 97 01/24/23 23:00 95 15 137/94 96 01/24/23 22:30 97.3 F L 93 14 137/94 95 01/24/23 22:13 98 18 95 01/24/23 22:10 97.4 F L 96 16 132/89 96 01/24/23 21:30 96 16 123/88 97 01/24/23 20:24 95 16 125/91 97 01/24/23 18:53 102 H 18 122/80 96 01/24/23 17:26 98.6 F 116 H 20 97/60 95 Intake and Output 11/10/0901/24/23 01/25/23 14:59 22:59 06:59 Other: Weight 59.421 kg Results CBC & Chem 7: 01/24/23 18:45 01/24/23 18:45 Labs: Abnormal Lab Results - Last 24 Hours (Table) 01/24/23 01/24/23 01/24/23 Range/Units 18:45 18:45 18:45 RBC 4.29 L (4.30-5.90) m/uL PT 9.5 L (10.0-12.5) sec Carbon Dioxide 32 H (22-30) mmol/L BUN 32 H (9-20) mg/dL Creatinine 1.26 H (0.66-1.25) mg/dL Glucose 103 H (74-99) mg/dL Total Protein 5.9 L (6.3-8.2) g/dL
[2023-01-25] MEDS ORDERED: MORPHINE SULFATE 2 MG/ML SYRINGE IVP STA (00:56)
[2023-01-25] MEDS: PANTOPRAZOLE 40 MG TABLET PO SCH (06:33)
[2023-01-25] MEDS: APIXABAN 5 MG TAB PO SCH ×2 (08:29→21:29)
[2023-01-25] MEDS ORDERED: ACETAMINOPHEN TAB 325 MG TAB PO PRN (08:41)
[2023-01-25] MEDS ORDERED: ASPIRIN 325 MG TAB PO SCH (09:00)
[2023-01-25] MEDS: SYMBICORT 160-4.5 MCG INHALER INHALATION SCH ×2 (09:11→21:49)
--- NOTE | 2023-01-25 09:33 | CONS ---
CONSULTATION CHIEF COMPLAINT: Syncope. HISTORY OF PRESENT ILLNESS: Martell is a 73-year-old gentleman with history of pulmonary embolism, COPD, dyslipidemia, and history of sinus tachycardia, comes to the hospital having had an episode of syncope. He states that early Monday morning, he got up from bed, went to the bathroom, and then had a sudden loss of consciousness. He fell down, did not have any significant injury, came back to consciousness on his own in a fairly short period of time. There is no history of bladder or bowel incontinence. No history of seizures. He tells me that he has had three such episodes within the last several months. I have seen him not too long ago in my office. He did not tell me anything about his syncope at that time. The patient had a syncopal event a year ago, and at that time, underwent a 24-hour Holter that did not reveal any tachy or bradyarrhythmia. A stress test that revealed normal myocardial perfusion function, but an echocardiogram that did not reveal significant valvular heart disease. So far, since admission, he remains in sinus rhythm. EKG does not reveal acute ischemic changes. Troponins have been negative. His hemoglobin is normal. BUN and creatinine are slightly abnormal. The patient's syncope could be vasovagal in origin. I am going to check his orthostatics, obtain a 2D echo, continue to monitor him on telemetry, and continue his medications. Hopefully, we can discharge him home over the next 24 hours and pursue his workup as outpatient including a monitor and a stress test. PAST MEDICAL HISTORY: Significant for, 1. COPD. 2. Hypertension. 3. Dyslipidemia. MEDICATIONS: Include: 1. Protonix. 2. DuoNeb. 3. Lasix. 4. Symbicort. 5. Lipitor. 6. Eliquis. 7. Albuterol. ALLERGIES: There are no known drug allergies. FAMILY HISTORY: Negative for premature coronary artery disease. SOCIAL HISTORY: He denies current smoking, EtOH abuse, or drug abuse. REVIEW OF SYSTEMS: HEENT: Unremarkable. CARDIAC: As described above. RESPIRATORY: As described above. GI: Negative. GENITOURINARY: Negative. ALLERGY/IMMUNOLOGY: Negative. SKIN: Negative. MUSCULOSKELETAL: Negative. ENDOCRINE: Negative. DERMATOLOGICAL: Negative. CONSTITUTIONAL: Negative. KNITTED CLOTH EXAMINER: Significant for syncope. Rest of the system review is not relevant. PHYSICAL EXAMINATION: GENERAL: Comfortable at rest. VITAL SIGNS: Stable. NECK: There is no jugular venous distention. Carotid upstroke is normal. There is no bruit. CHEST: Reveals diminished air entry with occasional rhonchi. HEART: Reveals first and second heart sounds. No gallop. No murmur. ABDOMEN: Soft, nontender. EXTREMITIES: Did not reveal any edema. Peripheral pulses are felt. KNITTED CLOTH EXAMINER: Did not reveal focal neurological deficits. LABORATORY DATA: Labs show a hemoglobin of 13. Potassium is 3.9, BUN is 32, creatinine is 1.26. ASSESSMENT: 1. Syncope. 2. Rule out cardiac causes. 3. History of pulmonary embolism. PLAN: So far, his cardiac workup is negative. I will obtain orthostatics, check an echo, monitor him on telemetry, and decide on further course of action based on his symptoms evolve. JUDY / TONI: [id number] /
[2023-01-25] MEDS: HYDROcodone/APAP 5-325MG 1 EACH TAB PO PRN ×2 (11:48→17:51)
[2023-01-25 13:54] LABS: Chol/HDL Ratio 2.54 Ratio; LDL Cholesterol,Calculated 113.9 mg/dL (0.0-131.0)
[2023-01-25] MEDS ORDERED: FUROSEMIDE 20 MG TAB PO SCH (14:45)
--- NOTE | 2023-01-25 14:54 | P.PN ---
Subjective Progress Note Date: 01/25/23 Hospital course: Patient is a very pleasant 73-year-old male with a past medical history of recent diagnosis of pulmonary emboli on anticoagulation with Eliquis, COPD with chronic hypoxic respiratory failure on 2 L is a cannula continuously at home, perforated diverticulitis status post colostomy, and hyperlipidemia. He presented to the emergency department on 01/24/23 with a chief complaint of syncopal episodes. Patient reported experiencing multiple episodes of loss of consciousness over the past few weeks awakening on the ground. Patient reported injury to his right wrist during most recent syncopal episode. He underwent full evaluation in the emergency department. Upon arrival to our facility vital signs showing blood pressure 97/60, heart rate 116, respiratory rate 20, temp 98.6F, and SpO2 of 95% on 3 L O2 via nasal cannula. EKG was completed showing normal sinus rhythm and 95 bpm with occasional PVCs and T-wave inversion in lateral lead aVL otherwise no noted T-wave or ST abnormalities upon personal review and interpretation. T-wave inversion in aVL is not a new finding and was present on previous EKG completed 12/22/22. EKG is concerning for possible R-on-T phenomenon with PVCs occurring at the end of T-wave of previous beat. Labs completed and reviewed. CBC unremarkable. Coagulation profile showing slightly low PT of 9.5 otherwise normal findings. BMP showing hypercarbia with bicarb is 32 consistent with patient's COPD slight elevation of renal function with BUN of 32, creatinine 1.26, and GFR 56 with baseline creatinine of 1.0. Liver profile unremarkable. Troponin 0.012. Urinalysis negative for infection Covid PCR negative. CT head negative for acute intercranial process and negative for cervical spine fracture, revealing advanced emphysema. Chest x-ray consistent with COPD with flattening of diaphragm and increased lucency of lungs but negative for acute cardiopulmonary process. X-ray right wrist negative for acute process showing no reported fracture, dislocation, or effusion. Patient admitted under our services with consultation to cardiology Physical exam: Vital signs reviewed and stable. General: Nontoxic, no distress and appears stated age. Derm: Skin warm and dry, normal coloration for ethnicity. Head: Atraumatic, normocephalic and symmetric. Eyes: EOMs intact, no lid lag, and anicteric sclera Mouth: no lip lesions, mucus membranes moist Cardiovascular: regular rate and rhythm with normal S1S2, systolic murmur, positive posterior tibial pulses bilaterally, and cap refill < 2 seconds. Lungs: Respirations even, regular, and unlabored on 3 L O2. Lungs CTA bilaterally, no rhonchi, no rales, no wheezing, and no accessory muscle usage. Abdominal: soft, nontender to palpation, no guarding, no appreciable organomegaly Ext: ROM intact. No gross muscle atrophy, no edema, no contractures. Neuro: Speech clear, face symmetrical and CN II-XII grossly intact with no noted focal neuro deficits Psych: Alert and oriented to person, place, time, and situation. Appropriate and pleasant affect. Assessment and Plan of Care: Syncopal episodes EKG concerning for possible R-on-T phenomenon Acute kidney injury -EKG is concerning for possible R-on-T phenomenon with PVCs occurring at the end of T-wave of previous beat. R-on-T phenomenon places patient at risk for ventricular arrhythmias. -Patient to remain on continuous telemetry monitoring. -Order placed for orthostatic vitals -Renal function slightly elevated with BUN of 32, creatinine 1.26, and GFR 56 with baseline creatinine of 1.0 -Patient received IV fluid hydration and we will hold today's Lasix and patient may resume on 01/26/23. -Order placed for repeat morning CBC, CMP, and magnesium levels. We will follow-up on renal function. -Consult placed to physical and occupational therapy for evaluation. -Fall precautions. -Echocardiogram -Troponins were trended and reviewed resulting at 0.012, 0.015, and 0.015. COPD with emphysema and chronic hypoxic respiratory failure, not in acute exacerbation Recently diagnosed pulmonary emboli -Patient to continue anticoagulation with Eliquis 5 mg by mouth twice daily, Symbicort 1604.5 g inhaler 2 puffs twice daily, History of perforated diverticulitis status post colostomy -Order placed for colostomy management/care. Hyperlipidemia -Patient to continue atorvastatin 80 mg nightly. DVT prophylaxis: Eliquis Anticipated discharge date: Clinical course to determine Anticipated discharge place: Home with home care Patient was seen independently by Nurse Pracitioner. This document was prepared using [employer] dictation software. Please allow for errors in turn out worker, while rare they do occur. Objective - Vital Signs Vital signs: Vital Signs Temp 97 F L 01/25/23 08:00 Pulse 95 01/25/23 08:00 Resp 16 01/25/23 08:00 BP 137/89 01/25/23 08:00 Pulse Ox 96 01/25/23 08:29 FiO2 Intake & Output 01/24/23 01/25/23 01/25/23 18:59 06:59 18:59 Weight 59.421 kg Other: Voiding Method Urinal - Labs CBC & Chem 7: 01/24/23 18:45 01/24/23 18:45 Labs: Abnormal Lab Results - Last 24 Hours (Table) 01/24/23 01/24/23 01/24/23 Range/Units 18:45 18:45 18:45 RBC 4.29 L (4.30-5.90) m/uL PT 9.5 L (10.0-12.5) sec Carbon Dioxide 32 H (22-30) mmol/L BUN 32 H (9-20) mg/dL Creatinine 1.26 H (0.66-1.25) mg/dL Glucose 103 H (74-99) mg/dL Total Protein 5.9 L (6.3-8.2) g/dL
--- NOTE | 2023-01-25 18:35 | CA ---
Transthoracic Echo Report Name: Martell Steven Age: 73 Gender: M : 1950 Exam Date: 01/25/2023 15:32 Exam Location: [facility] Ht (in): 65 Wt (lb): 131 Ordering Physician: Jose Alford MD Attending/Referring Phys: Submersible Pilot Sola Inman RDCS Procedure CPT: Indications: Syncope Cardiac Hx: Technical Quality: Fair Contrast 1: Definity Total Dose (mL): 2 Contrast 2: Total Dose (mL): MEASUREMENTS (Male / Female) Normal Values 2D ECHO LV Diastolic Diameter PLAX 3.6 cm 4.2 - 5.9 / 3.9 - 5.3 cm LV Systolic Diameter PLAX 2.4 cm IVS Diastolic Thickness 1.4 cm 0.6 - 1.0 / 0.6 - 0.9 cm LVPW Diastolic Thickness 1.2 cm 0.6 - 1.0 / 0.6 - 0.9 cm LV Relative Wall Thickness 0.7 FINDINGS Left Ventricle Mildly increased left ventricular wall thickness. Normal left ventricular systolic function with no obvious regional wall motion abnormalities. Left ventricular ejection fraction is estimated at 55 to 60 %. Right Ventricle Right Atrium Left Atrium Mitral Valve Mild mitral regurgitation.mitral annular calcification. Aortic Valve Tricuspid Valve Pulmonic Valve Pericardium No pericardial effusion. Aorta CONCLUSIONS Technically difficult study. Definity ECHO contrast used for improved visualization of the endocardial borders (inadequate visualization of two or more contiguous segments). Limited echo. Normal left ventricle size and systolic function with no clear segmental wall motion abnormalities Previewed by: Dr. Ayo Mendes MD (Electronically Signed) Final Date: 25 January 2023 18:34
[2023-01-25] MEDS: ATORVASTATIN 80 MG TAB PO SCH (21:29)
[2023-01-26] MEDS: HYDROcodone/APAP 5-325MG 1 EACH TAB PO PRN (03:40)
[2023-01-26] MEDS: PANTOPRAZOLE 40 MG TABLET PO SCH (06:13)
[2023-01-26] MEDS ORDERED: KETOROLAC 15 MG/ML 1 ML VIAL IVP STA (07:49)
[2023-01-26 08:07] LABS: HCT 40.4 % (39.0-53.0); HGB 12.7 gm/dL (13.0-17.5); MCHC 31.5 g/dL (31.0-37.0); Mean Platelet Volume 7.1; Platelet Count 314 k/uL (150-450); RBC 4.39 m/uL (4.30-5.90); RDW 15.4 % (11.5-15.5); WBC 6.7 k/uL (3.8-10.6)
[2023-01-26] MEDS: SYMBICORT 160-4.5 MCG INHALER INHALATION SCH ×3 (08:11→20:43)
[2023-01-26] MEDS ORDERED: MORPHINE SULFATE 4 MG/ML SYRINGE IVP STA (08:12)
[2023-01-26 08:19] LABS: ALT 33 U/L (4-49); AST 30 U/L (17-59); African American GFR (CKD) 69 (>60 ml/min/1.73 sqM); Albumin 3.3 g/dL (3.5-5.0); Alkaline Phosphatase 67 U/L (38-126); Anion Gap 7 mmol/L; Blood Urea Nitrogen 36 mg/dL (9-20); Carbon Dioxide 26 mmol/L (22-30); Chloride 102 mmol/L (98-107); Glucose 95 mg/dL (74-99); Magnesium 2.1 mg/dL (1.6-2.3); Non-African American GFR(CKD) 60 (>60 ml/min/1.73 sqM); Potassium 4.4 mmol/L (3.5-5.1); Sodium 135 mmol/L (137-145); Total Bilirubin 0.6 mg/dL (0.2-1.3); Total Protein 5.7 g/dL (6.3-8.2)
--- NOTE | 2023-01-26 09:27 | XR ---
EXAMINATION TYPE: XR forearm RT DATE OF EXAM: 01/26/2023 9:04 AM CLINICAL INDICATION:Male, 73 years old with history of persistent pain r forearm and wrist s/p fall 1 03/26; [facility] COMPARISON: 01/24/2023 TECHNIQUE: XR forearm RT; forearm was examined in AP and lateral projections. FINDINGS: No acute osseous pathology, soft tissue swelling or joint dislocations are seen. IMPRESSION: No evidence of acute fracture.
[2023-01-26] MEDS: IOPAMIDOL CONTRAST (ORAL USE) VIAL PO PRN ×2 (09:34→10:19)
--- NOTE | 2023-01-26 09:34 | XR ---
EXAMINATION TYPE: XR KUB DATE OF EXAM: 01/26/2023 9:04 AM CLINICAL INDICATION:Male, 73 years old with history of Pt reports no output from ostomy in 2 days; [facility] COMPARISON: 01/01/2023 TECHNIQUE: One radiographic view of the abdomen was obtained. FINDINGS: The bowel gas pattern is nonspecific without dilated loops of small or large bowel. There i s no evidence for organomegaly or pneumoperitoneum. The osseous structures are intact. No abnormal calcifications are present. Fecal material and gas are demonstrated throughout the colon and rectum. IMPRESSION: Nonspecific bowel gas pattern without radiographic evidence for acute process.
[2023-01-26] MEDS: APIXABAN 5 MG TAB PO SCH (09:40)
[2023-01-26] MEDS: FUROSEMIDE 20 MG TAB PO SCH (09:40)
--- NOTE | 2023-01-26 09:45 | P.PN ---
Subjective Progress Note Date: 01/26/23 History of present illness: This is a 73-year-old male with past medical history of COPD, hypertension, dy slipidemia, pulmonary embolism, sinus tachycardia. Patient apparently has had 3 such episodes in the past several months. He has syncopal event 1 year ago and underwent a 24-hour Holter monitor at that time that did not reveal any tachycardia or bradycardia arrhythmias. Patient presented to the hospital due to episode of syncope. Patient states that he was up to the bathroom yesterday and his nurse stated he did fine. Has not been out of bed this morning. Orthostatic vital signs have been negative. Limited echocardiogram reveals normal LV systolic function. In general, patient feels fine. No lightheadedness or dizziness, no chest pain or shortness of breath. Patient is concerned that he has not had any output from his ostomy for the past 2 days. Physical examination: Gen: This is a 73-year-old male resting in bed and appears to be comfortable and in no acute distress.] VS: reviewed HEENT: Head is atraumatic, normocephalic. Pupils equal, round. Sclerae is anicteric. NECK: Supple. No JVD. . LUNGS: Clear to auscultation. No wheezes or rhonchi. No intercostal retractions. HEART: Regular rate and rhythm. No murmur. ABDOMEN: Soft No tenderness. Colostomy in place. EXTREMITIES: Trace pedal edema. No calf tenderness. NEUROLOGICAL: Patient is awake, alert and oriented x3. Assessment: Syncope of unclear etiology, orthostatics negative and echocardiogram unremarkable. History of pulmonary embolism COPD Hypertension Dyslipidemia Plan: Patient will be scheduled for loop recorder tomorrow with Dr. MEG العلي. Hold eliquis tonight and tomorrow a.m. dose. Eliquis will be resumed following procedure. Nurse practitioner note has been reviewed, I agree with documented findings and plan of care. Patient was seen and examined. Objective - Vital Signs Vital signs: Vital Signs Temp 98.1 F 01/25/23 20:00 Pulse 96 01/26/23 04:00 Resp 17 01/26/23 04:00 BP 136/74 01/26/23 04:00 Pulse Ox 96 01/26/23 04:00 FiO2 Intake & Output 01/25/23 01/26/23 01/26/23 18:59 06:59 18:59 Intake Total 180 Output Total 250 600 Balance -70 -600 Weight 59.421 kg Intake: Oral 180 Output: Urine 250 600 Other: Voiding Method Urinal Urinal - Labs CBC & Chem 7: 01/26/23 07:33 01/26/23 07:33 Labs: Abnormal Lab Results - Last 24 Hours (Table) 01/25/23 Range/Units 07:42 Cholesterol 211.00 H (0.00-200.00) mg/dL HDL Cholesterol 83.20 H (40.00-60.00) mg/dL
[2023-01-26] MEDS ORDERED: SODIUM CHLORIDE 0.9% 1,000 ML IV SCH (10:45)
[2023-01-26] MEDS: PROCHLORPERAZINE INJ 10 MG/2 ML VIAL IVP PRN ×2 (10:54→17:37)
--- NOTE | 2023-01-26 12:46 | P.GSCN ---
History of Present Illness Consult date: 01/26/23 History of present illness: CHIEF COMPLAINT: Syncope Reason for consult: No output through her ostomy 2 days HISTORY OF PRESENT ILLNESS: This is a 73-year-old male who presented to the hospital after syncopal episode. Patient followed by cardiology and is scheduled for a loop recorder tomorrow. Surgical service has been consulted due to no output through the ostomy for 2 days. Patient does have a distended abdomen. He did have episode of vomiting after the contrast for the CAT scan. He denies any abdominal pain. Patient has a past history of perforated div erticulitis with sigmoid colectomy and end colostomy on 08/02/2022. Patient on Eliquis for history of PE and Afib. PAST MEDICAL HISTORY: Atrial Fibrillation, Prostate Cancer, COPD, GERD/Reflux, Pulmonary Embolus (PE) PAST SURGICAL HISTORY: Bowel Resection with colostomy, Orthopedic Surgery, Tonsillectomy MEDICATIONS: See below ALLERGIES: See below SOCIAL HISTORY: No illicit drug use. REVIEW OF SYSTEMS: CONSTITUTIONAL: Denies fever or chills. HEENT: Denies blurred vision, vision changes, or eye pain. Denies hemoptysis CARDIOVASCULAR: Denies chest pain or pressure. RESPIRATORY: No shortness of breath. GASTROINTESTINAL: See HPI for pertinent findings HEMATOLOGIC: Denies bleeding disorders. GENITOURINARY: Denies any blood in urine or increased urinary frequency. SKIN: Denies pruitis. Denies rash. PHYSICAL EXAM: VITAL SIGNS: Reviewed GENERAL: Well-developed in no acute distress. ABDOMEN: Distended. Nontender. Ostomy stoma beefy-red. No output. NEUROLOGIC: Alert and oriented. Cranial nerves II through XII grossly intact. LABORATORY DATA: WBC 6.7 Hgb 12.7 platelets 314 Sodium 135 potassium 4.4 creatinine 1.20 IMAGING: KUB x-ray nonspecific bowel gas pattern without x-ray evidence for acute process ASSESSMENT: 1. Abdominal distention. No output from ostomy 2 days 2. History of perforated diverticulitis status post sigmoid colectomy with end colostomy on 08/02/2022 3. Syncopal episode followed by cardiology PLAN: -Follow up on computed tomography scan abdomen and pelvis -Keep patient nothing by mouth for now -Continue supportive care -Further recommendations forthcoming depending on computed tomography scan results Thank you for this consultation Physician Fishing Worker note has been reviewed by physician. Signing provider agrees with the documented findings, assessment, and plan of care. Past Medical History Past Medical History: Atrial Fibrillation, Cancer, COPD, GERD/Reflux, Pulmonary Embolus (PE) Additional Past Medical History / Comment(s): positional upper abdominal pain stated when he changes position from laying to sitting and standing. Prostate cancer, pt states he has not undergone any tx for ca. History of Any Multi-Drug Resistant Organisms: None Reported Past Surgical History: Bowel Resection, Orthopedic Surgery, Tonsillectomy Additional Past Surgical History / Comment(s): Right shoulder arthroscopy. Colonoscopy. EGD, colostomy Past Anesthesia/Blood Transfusion Reactions: No Reported Reaction Additional Past Anesthesia/Blood Transfusion Reaction / Comm: Pt has CLAUSTROPHOBIA Smoking Status: Former smoker - Past Family History Father Family Medical History: Cancer Mother Family Medical History: Cancer Additional Family Medical History / Comment(s): Mother in her 50s with some form of cancer. Pt/spouse do not recall type of cancer. Medications and Allergies Home Medications Medication Instructions Recorded Confirmed Type Ipratropium-Albuterol Nebulize 3 ml INHALATION RT-QID PRN 07/30/21 01/24/23 History [Duoneb 0.5 mg-3 mg/3 ml Soln] Albuterol Sulfate [Albuterol 1 - 2 puff INHALATION RT-Q6H PRN 10/21/22 01/24/23 History Sulfate Hfa] Apixaban [Eliquis] 5 mg PO BID 10/21/22 01/24/23 History Atorvastatin [Lipitor] 80 mg PO HS #90 tab 10/23/22 01/24/23 Rx Theophylline 12 Hour [Robe-Dur] 300 mg PO DAILY 12/15/22 01/24/23 History LORazepam [Ativan] 0.5 mg PO TID PRN 3 Days #9 tab 12/22/22 01/24/23 Rx Acetaminophen Tab [Tylenol] 650 mg PO Q6HR PRN tab 01/03/23 01/24/23 Rx Budesonide-Formot 160-4.5 Mcg 2 puff INHALATION RT-BID #1 each 01/03/23 01/24/23 Rx [Symbicort 160-4.5 Mcg Inhaler] Pantoprazole [Protonix] 40 mg PO AC-BRKFST #15 tab 01/03/23 01/24/23 Rx Furosemide [Lasix] 20 mg PO DAILY 01/24/23 01/24/23 History Allergies Allergy/AdvReac Type Severity Reaction Status Date / Time No Known Allergies Allergy Verified 01/24/23 22:11 Surgical - Exam Vital Signs Temp Pulse Resp BP Pulse Ox 98.6 F 116 H 20 97/60 95 01/24/23 17:26 01/24/23 17:26 01/24/23 17:26 01/24/23 17:26 01/24/23 17:26 Results - Labs 01/26/23 07:33 01/26/23 07:33 Abnormal Lab Results - Last 24 Hours (Table) 01/25/23 01/26/23 01/26/23 Range/Units 07:42 07:33 07:33 Hgb 12.7 L (13.0-17.5) gm/dL Sodium 135 L (137-145) mmol/L BUN 36 H (9-20) mg/dL Total Protein 5.7 L (6.3-8.2) g/dL Albumin 3.3 L (3.5-5.0) g/dL Cholesterol 211.00 H (0.00-200.00) mg/dL HDL Cholesterol 83.20 H (40.00-60.00) mg/dL Diabetes panel 01/25/23 01/26/23 Range/Units 07:42 07:33 Sodium 135 L (137-145) mmol/L Potassium 4.4 (3.5-5.1) mmol/L Chloride 102 (98-107) mmol/L Carbon Dioxide 26 (22-30) mmol/L BUN 36 H (9-20) mg/dL Creatinine 1.20 (0.66-1.25) mg/dL Glucose 95 (74-99) mg/dL Calcium 9.0 (8.4-10.2) mg/dL AST 30 (17-59) U/L ALT 33 (4-49) U/L Alkaline Phosphatase 67 (38-126) U/L Total Protein 5.7 L (6.3-8.2) g/dL Albumin 3.3 L (3.5-5.0) g/dL Triglycerides 69.50 (0.00-149.00) mg/dL HDL Cholesterol 83.20 H (40.00-60.00) mg/dL Calcium panel 01/26/23 Range/Units 07:33 Calcium 9.0 (8.4-10.2) mg/dL Albumin 3.3 L (3.5-5.0) g/dL Pituitary panel 01/26/23 Range/Units 07:33 Sodium 135 L (137-145) mmol/L Potassium 4.4 (3.5-5.1) mmol/L Chloride 102 (98-107) mmol/L Carbon Dioxide 26 (22-30) mmol/L BUN 36 H (9-20) mg/dL Creatinine 1.20 (0.66-1.25) mg/dL Glucose 95 (74-99) mg/dL Calcium 9.0 (8.4-10.2) mg/dL Adrenal panel 01/26/23 Range/Units 07:33 Sodium 135 L (137-145) mmol/L Potassium 4.4 (3.5-5.1) mmol/L Chloride 102 (98-107) mmol/L Carbon Dioxide 26 (22-30) mmol/L BUN 36 H (9-20) mg/dL Creatinine 1.20 (0.66-1.25) mg/dL Glucose 95 (74-99) mg/dL Calcium 9.0 (8.4-10.2) mg/dL Total Bilirubin 0.6 (0.2-1.3) mg/dL AST 30 (17-59) U/L ALT 33 (4-49) U/L Alkaline Phosphatase 67 (38-126) U/L Total Protein 5.7 L (6.3-8.2) g/dL Albumin 3.3 L (3.5-5.0) g/dL
--- NOTE | 2023-01-26 13:39 | P.PN ---
Subjective Progress Note Date: 01/26/23 Hospital course: Patient is a very pleasant 73-year-old male with a past medical history of recent diagnosis of pulmonary emboli on anticoagulation with Eliquis, COPD with chronic hypoxic respiratory failure on 2 L is a cannula continuously at home, perforated diverticulitis status post colostomy, and hyperlipidemia. He presented to the emergency department on 01/24/23 with a chief complaint of syncopal episodes. Patient reported experiencing multiple episodes of loss of consciousness over the past few weeks awakening on the ground. Patient reported injury to his right wrist during most recent syncopal episode. He underwent full evaluation in the emergency department. Upon arrival to our facility vital signs showing blood pressure 97/60, heart rate 116, respiratory rate 20, temp 98.6F, and SpO2 of 95% on 3 L O2 via nasal cannula. EKG was completed showing normal sinus rhythm and 95 bpm with occasional PVCs and T-wave inversion in lateral lead aVL otherwise no noted T-wave or ST abnormalities upon personal review and interpretation. T-wave inversion in aVL is not a new finding and was present on previous EKG completed 12/22/22. EKG is concerning for possible R-on-T phenomenon with PVCs occurring at the end of T-wave of previous beat. Labs completed and reviewed. CBC unremarkable. Coagulation profile showing slightly low PT of 9.5 otherwise normal findings. BMP showing hypercarbia with bicarb is 32 consistent with patient's COPD slight elevation of renal function with BUN of 32, creatinine 1.26, and GFR 56 with baseline creatinine of 1.0. Liver profile unremarkable. Troponin 0.012. Urinalysis negative for infection Covid PCR negative. CT head negative for acute intercranial process and negative for cervical spine fracture, revealing advanced emphysema. Chest x-ray consistent with COPD with flattening of diaphragm and increased lucency of lungs but negative for acute cardiopulmonary process. X-ray right wrist negative for acute process showing no reported fracture, dislocation, or effusion. Patient was admitted under our services with consultation to cardiology. Physical exam: Patient seen and fully evaluated at bedside. Patient reports persistent pain in right forearm. Previous x-ray again reviewed negative for acute process will order x-ray right forearm to evaluate further. Order placed for additional pain management per patient's request. In addition patient reporting that he has not had any output from his ostomy in over 2 days. He reports previously needing to empty/change ostomy bag 3 times daily. Ostomy site inspected stoma normal beefy red in color with no noted surrounding erythema and no output in her ostomy bag. Patient did have some air in bag. Patient denies significant abdominal pain does report distention along with nausea but denies any vomiting or any other complaints at this time. Vital signs reviewed and stable. General: Nontoxic, no distress and appears stated age. Derm: Skin warm and dry, normal coloration for ethnicity. Head: Atraumatic, normocephalic and symmetric. Eyes: EOMs intact, no lid lag, and anicteric sclera Mouth: no lip lesions, mucus membranes moist Cardiovascular: regular rate and rhythm with normal S1S2, no murmur noted, positive posterior tibial pulses bilaterally, and cap refill < 2 seconds. Lungs: Respirations even, regular, and unlabored on 3 L O2. Lungs CTA bilaterally, no rhonchi, no rales, no wheezing, and no accessory muscle usage. Abdominal: Distended, nontender to palpation, no guarding, no appreciable organomegaly. Colostomy in place. Ext: ROM intact. No gross muscle atrophy, no edema, no contractures. Neuro: Speech clear, face symmetrical and CN II-XII grossly intact with no noted focal neuro deficits Psych: Alert and oriented to person, place, time, and situation. Appropriate and pleasant affect. Assessment and Plan of Care: Recurrent Syncopal episodes EKG concerning for possible R-on-T phenomenon Acute kidney injury, improved -EKG is concerning for possible R-on-T phenomenon with PVCs occurring at the end of T-wave of previous beat. R-on-T phenomenon places patient at risk for ventricular arrhythmias. -Cardiology following and discussed plan of care with scroll saw operator and cardiology MOTOR VEHICLE OR CARAVAN SALESPERSON they're recommending loop monitor placement and order has been placed. -Patient to remain on continuous telemetry monitoring. -Orthostatic vitals were negative. -Patient received IV fluid hydration and has not been restarted on home dose of Lasix 20 mg daily. -Order placed for repeat morning CBC, CMP, and magnesium levels. Will follow-up closely to monitor renal function now that Lasix has been resumed -Physical and occupational therapy following. -Continue Fall precautions. -Echocardiogram completed and upon review of report stating preserved EF of 55- 60% with no significant structural or valvular abnormalities reported. History of perforated diverticulitis with colostomy placement, patient reports no output from ostomy 2 days Abdominal distention and nausea -Gen. surgeon notified -Orders placed for abdominal x-ray and per surgeon's request CT abdomen and pelvis with IV and oral contrast -Patient placed NPO with the exception of oral contrast to be administered for computed tomography scan. -Symptomatic care and pain management. COPD with emphysema and chronic hypoxic respiratory failure, not in acute exacerbation Recently diagnosed pulmonary emboli -Patient to continue anticoagulation with Eliquis 5 mg by mouth twice daily, Symbicort 1604.5 g inhaler 2 puffs twice daily, History of perforated diverticulitis status post colostomy -Order placed for colostomy management/care. Hyperlipidemia -Patient to continue atorvastatin 80 mg nightly. Data reviewed: Labs completed and reviewed. CBC unremarkable with the exception of mild normocytic anemia with hemoglobin at 12.7. BMP showing prerenal azotemia with BUN is 36 otherwise normal findings. Magnesium 2.1. Liver profile unremarkable. Vital signs completed and reviewed. Blood pressure 128/65, heart rate 94, respiratory rate 16, temp 97.7F, SpO2 of 97% on 3 L O2 via nasal cannula. DVT prophylaxis: Eliquis Anticipated discharge date: Clinical course to determine Anticipated discharge place: Home with home care Patient was seen independently by Nurse Pracitioner. This document was prepared using [employer] dictation software. Please allow for errors in assistant athletic trainer, while rare they do occur. Objective - Vital Signs Vital signs: Vital Signs Temp 98.1 F 01/25/23 20:00 Pulse 96 01/26/23 04:00 Resp 17 01/26/23 04:00 BP 136/74 01/26/23 04:00 Pulse Ox 96 01/26/23 04:00 FiO2 Intake & Output 01/25/23 01/26/23 01/26/23 18:59 06:59 18:59 Intake Total 180 Output Total 250 600 Balance -70 -600 Weight 59.421 kg Intake: Oral 180 Output: Urine 250 600 Other: Voiding Method Urinal Urinal - Labs CBC & Chem 7: 01/26/23 07:33 01/26/23 07:33 Labs: Abnormal Lab Results - Last 24 Hours (Table) 01/25/23 01/26/23 Range/Units 07:42 07:33 Hgb 12.7 L (13.0-17.5) gm/dL Cholesterol 211.00 H (0.00-200.00) mg/dL HDL Cholesterol 83.20 H (40.00-60.00) mg/dL
--- NOTE | 2023-01-26 14:43 | CT ---
EXAMINATION TYPE: CT abdomen pelvis w con DATE OF EXAM: 01/26/2023 COMPARISON: 01/02/2023 INDICATION: no output of ostomy DLP: 755.1 mGycm, Automated exposure control for dose reduction was used. CONTRAST: 100 mL of Isovue 300. Study performed with Oral Contrast TECHNIQUE: Axial images were obtained from above the diaphragm to the pubic rami in the axial plane a t 5 mm thick sections. Reconstructed images are reviewed on the computer in the coronal plane. FINDINGS: Limited CT sections are obtained the lung bases. The lung bases are clear. CT ABDOMEN: No free air is evident. No abnormal fluid collections within the abdomen or pelvis are ev ident. Liver: Normal Spleen: Calcified granuloma are present. Pancreas: Normal Adrenal glands: The adrenal glands are normal. Gallbladder: Normal Kidneys: No masses are evident. No hydronephrosis is present. No cysts are present. Delayed images were obtained through the kidneys, which remain unremarkable. Aorta: Vascular calcification is within the aorta. Inferior vena cava: Normal. CT PELVIS: No suspicious dilated loops of bowel are evident. Note is made of fecal debris within the colon. Ther e is an ostomy in the left lower quadrant. This is nondilated. Contrast within small bowel loops and extends to the mid pelvis. There are loops of bowel which are incompletely distended or lack oral con trast limiting their evaluation. Appendix: Normal as visualized. Urinary bladder: Normal. Genitourinary structures: Slight prominence Osseous structures: No suspicious lytic or sclerotic lesions. Preliminary results were provided to the patient's nurse at time of preliminary interpretation. IMPRESSION: 1. No suspicious dilated loops of bowel. Ostomy appears patent. There is some herniation of mesenter ic fat into the ostomy region. Ostomy bowel is decompressed without obvious obstruction. No free air within the abdomen or abnormal fluid collections identified. Follow-up can be performed as clinically indicated.
[2023-01-26] MEDS: IPRATROPIUM-ALBUTEROL 3 ML NEB INHALATION SCH ×3 (15:25→20:36)
[2023-01-26 17:18] LABS: Glucose,Whole Blood 92 mg/dL (70-110)
[2023-01-26 17:33] LABS: ABG Base Excess 2.8 mmol/L; ABG HCO3 29 mmol/L (21-25); ABG Oxygen Saturation 97.6 % (94-97); ABG PCO2 56 mmHg (35-45); ABG PH 7.32 (7.35-7.45); ABG PO2 107 mmHg (83-108); ABG TCO2 31 mmol/L (19-24); Allen Test Performed? Yes
[2023-01-26] MEDS ORDERED: MORPHINE SULFATE 2 MG/ML SYRINGE IVP STA (17:41)
[2023-01-26] MEDS ORDERED: SODIUM CHLORIDE 0.9% 500 ML 500 ML IV ONE (17:49)
--- NOTE | 2023-01-26 18:30 | XR ---
EXAMINATION: XR chest 1V portable DATE AND TIME: 01/26/2023 5:45 PM CLINICAL INDICATION: PHH; increase o2 TECHNIQUE: 2 views were obtained. AP semiupright portable views. COMPARISON: None FINDINGS: There is no pneumothorax. No pleural effusion. There is mild/moderate silhouetting of the mid and lower lung zones bilaterally, by a fine reticular pattern of increased attenuation. This pattern can correlate with a clinical diagnosis of interstitia l phase pulmonary edema. The pattern is more pronounced on the left and, therefore, infection needs t o be clinically excluded. EKG leads noted. The cardiac silhouette is not enlarged. The skeletal structures and soft tissues are negative for acute findings. IMPRESSION: Bilateral silhouetting of the mid/lower pulmonary vasculature.
[2023-01-26] MEDS ORDERED: methylPREDNISolone SOD SUCCI 125 MG/2 ML VIAL IV STA (18:32)
--- NOTE | 2023-01-26 18:44 | P.PN ---
Progress Note - Text Progress Note Date: 01/26/23 A- team: Indication: Respiratory distress. Received telephone notification from RN with reports that the patient was complaining of diffuse abdominal pain, nausea, and found to be hypoxic at 82% on 6 L. Arrived on Scene to find: Patient alert and awake lying in bed with increased respiratory effort and rate. Patient on nonrebreather at this time with SpO2 of 94%. STAT orders placed for ABG, lactate and BiPAP along with EKG, Patient seen and examined at bedside. Reports diffuse abdominal discomfort and tenderness upon palpation along with nausea. Patient given Compazine 10 mg IVP 1 dose. Patient's at bedside reports patient has been vomiting throughout the day. Patient complained of abdominal distention and pain and reports no ostomy output in greater than 2 days patient was worked up to rule out bowel obstruction and general surgeon was consulted. KUB was negative for acute process. CT abdomen and pelvis with oral and IV contrast also completed and radiology report reviewed stating no suspicious dilated loops of bowel, ostomy appearing patent, and mild herniation of mesenteric fat into the ostomy region with ostomy bowel decompressed without obvious obstruction and no free air in the abdomen or abnormal fluid collections. Called and discussed patient's complaints of diffuse abdominal pain and persistent nausea with lack of ostomy output with general surgeon whom stated he reviewed CT and not concerned of obstruction at this time. Patient being medicated with 2 mg of morphine IVP and placed on BiPAP at this time. ABG resulting showing no significant abnormalities with mild respiratory acidosis with pH 7.32, pCO2 56, bicarb 29, ABG saturation 31 and base excess of 97.6. Point of care glucose is 92. Order placed for 500 mL bolus, blood cultures, and awaiting lactate and chest x-ray results. EKG reviewed showing sinus tachycardia at 134 bpm. Patient instructed if nausea returns will immediately need to remove BiPAP mask. Patient is alert and oriented 4 and verbalized understanding of this. Called and discussed patient with sound mixer/stockroom supervisor Dr. Bravo. Patient to remain on stepdown unit at this time if condition worsens or patient shows no improvement may consider transferring to the ICU. General: Patient appears in mild to moderate distress, increased respiratory effort and generalized pain Derm: warm, dry Head: atraumatic, normocephalic, symmetric Eyes: EOMI, no lid lag, anicteric sclera Mouth: no lip lesion, Cardiovascular: Regular rate tachycardic rhythm Lungs: Respiratory effort increased with accessory muscle usage. Patient was hypoxic at 82% on 6 L O2 via nasal cannula then placed on nonrebreather mask at 15 L and now transitioned to BiPAP with FiO2 of 50% maintaining SpO2 of 92% at this time. Lungs tight with diffuse expiratory wheezes. Abdominal: Soft distended with diffuse tenderness, stoma remains beefy red with no surrounding erythema, patient is passing gas/flatus through stoma. Ext: no gross muscle atrophy, no edema, no contractures Neuro: CN II-XI grossly intact, no focal neuro deficits Psych: Alert, oriented, appropriate affect Assessment: Acute on chronic respiratory failure with hypoxia Intractable abdominal pain with nausea with history of perforated diverticulitis with colostomy placement and no output from ostomy 2 days Sinus tachycardia Plan: -Order placed for stat ABGs and reviewed as stated above. -Chest x-ray completed, awaiting results. -Patient placed on BiPAP at 50% FiO2 -Notified sound mixer/stockroom supervisor via telephone of patient's current status and placed consult for their evaluation -Order placed for lactic acid, Covid PCR, influenza A, and influenza B -Order placed for IV fluid bolus -EKG completed and reviewed. -Reviewed CT abdomen and pelvis with oral and IV contrast completed earlier today and radiology report stating no suspicious dilated loops of bowel, ostomy appearing patent, and mild herniation of mesenteric fat into the ostomy region with ostomy bowel decompressed without obvious obstruction and no free air in the abdomen or abnormal fluid collections. -Called and discussed patient's current complaints of intractable diffuse abdominal pain and persistent nausea with lack of ostomy output with general surgeon whom stated he reviewed CT and not concerned of obstruction at this time. Disposition: -Patient to remain on stepdown unit at this time, if condition worsens or patient shows no improvement may consider transferring to the ICU. Notified: -Head Golf Coach/stockroom supervisor Dr. Bravo and general surgeon Dr. Moyer A Total of 26 minutes of critical care time was spent on the complex care of this patient.
[2023-01-26] MEDS: SODIUM CHLORIDE 0.9% 1,000 ML IV SCH (19:02)
[2023-01-26] MEDS: ATORVASTATIN 80 MG TAB PO SCH (22:59)
[2023-01-27] MEDS: SODIUM CHLORIDE 0.9% 1,000 ML IV SCH (06:27)
[2023-01-27] MEDS: PANTOPRAZOLE 40 MG TABLET PO SCH (08:07)
[2023-01-27] MEDS: FUROSEMIDE 20 MG TAB PO SCH (08:09)
--- NOTE | 2023-01-27 08:16 | P.PN ---
Subjective Progress Note Date: 01/27/23 Hospital course: Patient is a very pleasant 73-year-old male with a past medical history of recent diagnosis of pulmonary emboli on anticoagulation with Eliquis, COPD with chronic hypoxic respiratory failure on 2 L is a cannula continuously at home, perforated diverticulitis status post colostomy, and hyperlipidemia. He presented to the emergency department on 01/24/23 with a chief complaint of syncopal episodes. Patient reported experiencing multiple episodes of loss of consciousness over the past few weeks awakening on the ground. Patient reported injury to his right wrist during most recent syncopal episode. He underwent full evaluation in the emergency department. Upon arrival to our facility vital signs showing blood pressure 97/60, heart rate 116, respiratory rate 20, temp 98.6F, and SpO2 of 95% on 3 L O2 via nasal cannula. EKG was completed showing normal sinus rhythm and 95 bpm with occasional PVCs and T-wave inversion in lateral lead aVL otherwise no noted T-wave or ST abnormalities upon personal review and interpretation. T-wave inversion in aVL is not a new finding and was present on previous EKG completed 12/22/22. EKG is concerning for possible R-on-T phenomenon with PVCs occurring at the end of T-wave of previous beat. Labs completed and reviewed. CBC unremarkable. Coagulation profile showing slightly low PT of 9.5 otherwise normal findings. BMP showing hypercarbia with bicarb is 32 consistent with patient's COPD slight elevation of renal function with BUN of 32, creatinine 1.26, and GFR 56 with baseline creatinine of 1.0. Liver profile unremarkable. Troponin 0.012. Urinalysis negative for infection Covid PCR negative. CT head negative for acute intercranial process and negative for cervical spine fracture, revealing advanced emphysema. Chest x-ray consistent with COPD with flattening of diaphragm and increased lucency of lungs but negative for acute cardiopulmonary process. X-ray right wrist negative for acute process showing no reported fracture, dislocation, or effusion. Patient was admitted under our services with consultation to cardiology. Physical exam: Vital signs reviewed and stable. General: Nontoxic, no distress and appears stated age. Derm: Skin warm and dry, normal coloration for ethnicity. Head: Atraumatic, normocephalic and symmetric. Eyes: EOMs intact, no lid lag, and anicteric sclera Mouth: no lip lesions, mucus membranes moist Cardiovascular: regular rate and rhythm with normal S1S2, no murmur noted, positive posterior tibial pulses bilaterally, and cap refill < 2 seconds. Lungs: Respirations even, regular, and unlabored on 3 L O2. Lungs CTA bilaterally, no rhonchi, no rales, no wheezing, and no accessory muscle usage. Abdominal: Distended, nontender to palpation, no guarding, no appreciable organomegaly. Colostomy in place. Ext: ROM intact. No gross muscle atrophy, no edema, no contractures. Neuro: Speech clear, face symmetrical and CN II-XII grossly intact with no noted focal neuro deficits Psych: Alert and oriented to person, place, time, and situation. Appropriate and pleasant affect. Assessment and Plan of Care: Acute on chronic respiratory failure with hypoxia and hypercarbia, resolved patient now back at baseline Patient was admitted secondary to chief complaint of recurrent syncopal episodes and EKG findings were concerning for R-on-T phenomenon and he is scheduled to undergo loop recorder placement this morning. There was an A-Team called on patient last night secondary to acute on chronic respiratory failure with hypoxia. Patient was initially found to be in respiratory distress with tachycardia, tachypnea, and hypertension with SpO2 of 82% on 6 L O2 requiring placement on nonrebreather and later BiPAP. Patient reported at this time intractable diffuse abdominal pain and nausea. These complaints lasted a few hours and patient then had significant amount of firm formed form stool from ost daniel which soon after resulted in resolution of his tachycardia, hypertension, tachypnea, abdominal pain/discomfort, nausea, and respiratory distress. Symptoms possibly resulting from vasovagal episode of large firm bowel movement from ostomy versus results of intractable pain, it is unclear. However, patient significantly improved and is back at baseline this morning. Recurrent Syncopal episodes EKG concerning for possible R-on-T phenomenon Acute kidney injury, improved -EKG is concerning for possible R-on-T phenomenon with PVCs occurring at the end of T-wave of previous beat. R-on-T phenomenon places patient at risk for ventricular arrhythmias. -Cardiology following and taking patient for loop monitor placement this morning -Patient to remain on continuous telemetry monitoring. -Orthostatic vitals were negative. -Patient received IV fluid hydration and was restarted on home dose of Lasix 20 mg daily. -Order placed for repeat morning CBC, CMP, and magnesium levels. Will follow-up closely to monitor renal function now that Lasix has been resumed -Physical and occupational therapy following. -Continue Fall precautions. -Echocardiogram completed and upon review of report stating preserved EF of 55- 60% with no significant structural or valvular abnormalities reported. Constipation with History of perforated diverticulitis with colostomy placement, patient reports no output from ostomy 2 days. Obstruction ruled out. Abdominal distention and nausea, resolved -Constipation/lack of bowel movement 2 days has resolved and patient's colostomy output now back to baseline. -Gen. surgery was following, reviewed documentation on chart. -KUB was negative for acute process. -CT abdomen and pelvis with oral and IV contrast also completed and radiology report reviewed stating no suspicious dilated loops of bowel, ostomy appearing patent, and mild herniation of mesenteric fat into the ostomy region with ostomy bowel decompressed without obvious obstruction and no free air in the abdomen or abnormal fluid collections. COPD with emphysema and chronic hypoxic respiratory failure, not in acute exacerbation Recently diagnosed pulmonary emboli -Patient to continue anticoagulation with Eliquis 5 mg by mouth twice daily, Symbicort 1604.5 g inhaler 2 puffs twice daily, History of perforated diverticulitis status post colostomy -Order placed for colostomy management/care. Hyperlipidemia -Patient to continue atorvastatin 80 mg nightly. Data reviewed: Vital signs completed and reviewed. Blood pressure 119/76, heart rate 78, respiratory rate 18, temp 97.8F, and SpO2 of 97% on 3 L baseline home oxygen. DVT prophylaxis: Eliquis Anticipated discharge date: Clinical course to determine Anticipated discharge place: Home with home care Patient was seen independently by Nurse Pracitioner. This document was prepared using [employer] dictation software. Please allow for errors in clinical rehabilitation aide, while rare they do occur. Objective - Vital Signs Vital signs: Vital Signs Temp 97.8 F 01/27/23 07:46 Pulse 78 01/27/23 07:51 Resp 18 01/27/23 07:59 BP 119/76 01/27/23 07:51 Pulse Ox 97 01/27/23 07:51 FiO2 40 01/27/23 00:26 Intake & Output 01/26/23 01/27/23 01/27/23 18:59 06:59 18:59 Intake Total 125 600 Output Total 75 300 Balance 50 -300 600 Weight 60 kg Intake: Intake, IV Titration 600 Amount Sodium Chloride 0.9% 1, 600 000 ml @ 50 mls/hr IV . Q20H [facility] Rx#:[id number] Oral 125 Output: Urine 75 300 Other: Voiding Method Urinal Urinal Urinal # Voids 2 # Bowel Movements 1 - Labs CBC & Chem 7: 01/26/23 07:33 01/26/23 07:33 Labs: Abnormal Lab Results - Last 24 Hours (Table) 01/26/23 01/26/23 Range/Units 07:33 17:29 ABG pH 7.32 L (7.35-7.45) ABG pCO2 56 H (35-45) mmHg ABG HCO3 29 H (21-25) mmol/L ABG Total CO2 31 H (19-24) mmol/L ABG O2 Saturation 97.6 H (94-97) % Sodium 135 L (137-145) mmol/L BUN 36 H (9-20) mg/dL Total Protein 5.7 L (6.3-8.2) g/dL Albumin 3.3 L (3.5-5.0) g/dL
[2023-01-27] MEDS: IPRATROPIUM-ALBUTEROL 3 ML NEB INHALATION SCH ×4 (09:07→20:30)
[2023-01-27] MEDS: SYMBICORT 160-4.5 MCG INHALER INHALATION SCH ×2 (09:07→20:30)
[2023-01-27] MEDS ORDERED: LIDOCAINE 1% INJ 10MG/ML (20 ML MDV) SQ ONE (09:16)
[2023-01-27] MEDS ORDERED: MIDAZOLAM 2 MG/2 ML VIAL IVP ONE (09:16)
--- NOTE | 2023-01-27 09:39 | P.PCN ---
Date of Procedure: 01/27/23 Description of Procedure: Procedure: Loop Recorder Implantation. Pre-Op Diagnosis: Recurrent Syncope. Post-Op Diagnosis: [Recurrent syncope] Clinical History: [Pre-Op Diagnosis: Recurrent episodes of Syncope. This a gentleman presented to the hospital with episodes of syncope and has been advised to have a loop recorder. I explained to the patient the rationale risks benefits options and he understood or details and wishes to proceed with the procedure. He was seen and evaluated by Dr. Post who advised the loop recorder insertion. He was evaluated by Dr. Post. I saw the patient this morning, reviewed with him the rationale risks benefits and options he understands all details and wishes to proceed with the procedure Post-Op Diagnosis: [] Clinical History: [] Procedure: Under strict aseptic precautions and local anesthesia in the left fourth intercostal space a stab incision was made with the tool provided. Patient received intravenous antibiotic as the procedure began. Using a plunger device along with the loop recorder I advanced it in the lateral direction in the fourth intercostal space and then using a plunger the device was advanced into the subcutaneous location. The device was therefore placed in the left fourth intercostal space in the lateral direction. Device was interrogated the signal was excellent with 0.25 mV. The device was activated and the settings were set for a syncope protocol. The loop recorder technician inventory specialist is [employer] the device is revealed Reveal FERNIE Q model LNQ11 serial number [id number]. Patient tolerated the procedure well. There were no complications. Details were discussed with the patient and family. He was sent to the room in a stable condition
[2023-01-27] MEDS: HYDROcodone/APAP 5-325MG 1 EACH TAB PO PRN ×2 (11:13→19:57)
--- NOTE | 2023-01-27 11:41 | P.CNPUL ---
History of Present Illness Consult date: 01/27/23 Requesting physician: Jose Alford Reason for consult: dyspnea, COPD, hypoxemia Chief complaint: Syncope, respiratory distress. History of present illness: Pulmonary consult dated 01/27/2023. 73-year-old male who was seen in the emergency department on January 24, because of a fall, and a right arm injury. The patient apparently has been having blackout spells or syncope at home, and, was evaluated in the hospital, and admitted. We were consulted yesterday, for the first time, because of r espiratory difficulty, and abnormal vital signs, likely related to constipation. The patient is seen today in room 358. The patient has had 6 admissions to the hospital, this year alone. The patient denies shortness of breath, or denies any respiratory issues, that brought him into the hospital. The patient was scheduled for a loop recorder today. That has been done. Currently, he's on 3 L of oxygen, and getting saline at 50 mL an hour. He has a history of COPD, atrial fibrillation, gastroesophageal reflux disease, pulmonary embolism, prostate cancer, and a previous history of tobacco use. White count was 6.7, hemoglobin 12.7, hematocrit 40.4, with a normal platelet count. Blood gases done yesterday at the rapid response, reveals a pO2 of 107, pCO2 of 56, and a pH is 7.32. Sodium is 135, potassium 4.4, chlorides 102, CO2 26, BUN 36, creatinine 1.20. Lactic acid was 1. Albumin was 3.3. Chest x-ray is reviewed, and consistent with mild interstitial edema. Review of Systems REVIEW OF SYSTEMS: CONSTITUTIONAL: [Negative.] NEUROLOGIC: Syncope. HEENT: [ Negative.] CARDIAC: Syncope. PULMONARY: Chronic shortness of breath. GI: [Negative.] : [Negative.] RHEUMATOLOGIC: [ Negative.] IMMUNOLOGIC: [ Negative.] ENDOCRINE: [Negative. ] DERMATOLOGIC: [Negative.] Past Medical History Past Medical History: Atrial Fibrillation, Cancer, COPD, GERD/Reflux, Pulmonary Embolus (PE) Additional Past Medical History / Comment(s): positional upper abdominal pain stated when he changes position from laying to sitting and standing. Prostate cancer, pt states he has not undergone any tx for ca. History of Any Multi-Drug Resistant Organisms: None Reported Past Surgical History: Bowel Resection, Orthopedic Surgery, Tonsillectomy Additional Past Surgical History / Comment(s): Right shoulder arthroscopy. Colon oscopy. EGD, colostomy Past Anesthesia/Blood Transfusion Reactions: No Reported Reaction Additional Past Anesthesia/Blood Transfusion Reaction / Comment(s): Pt has CLAUSTROPHOBIA Smoking Status: Former smoker - Past Family History Father Family Medical History: Cancer Mother Family Medical History: Cancer Additional Family Medical History / Comment(s): Mother in her 50s with some form of cancer. Pt/spouse do not recall type of cancer. Medications and Allergies Home Medications Medication Instructions Recorded Confirmed Type Ipratropium-Albuterol Nebulize 3 ml INHALATION RT-QID PRN 07/30/21 01/24/23 History [Duoneb 0.5 mg-3 mg/3 ml Soln] Albuterol Sulfate [Albuterol 1 - 2 puff INHALATION RT-Q6H PRN 10/21/22 01/24/23 History Sulfate Hfa] Apixaban [Eliquis] 5 mg PO BID 10/21/22 01/24/23 History Atorvastatin [Lipitor] 80 mg PO HS #90 tab 10/23/22 01/24/23 Rx Theophylline 12 Hour [Robe-Dur] 300 mg PO DAILY 12/15/22 01/24/23 History LORazepam [Ativan] 0.5 mg PO TID PRN 3 Days #9 tab 12/22/22 01/24/23 Rx Acetaminophen Tab [Tylenol] 650 mg PO Q6HR PRN tab 01/03/23 01/24/23 Rx Budesonide-Formot 160-4.5 Mcg 2 puff INHALATION RT-BID #1 each 01/03/23 01/24/23 Rx [Symbicort 160-4.5 Mcg Inhaler] Pantoprazole [Protonix] 40 mg PO AC-BRKFST #15 tab 01/03/23 01/24/23 Rx Furosemide [Lasix] 20 mg PO DAILY 01/24/23 01/24/23 History Allergies Allergy/AdvReac Type Severity Reaction Status Date / Time No Known Allergies Allergy Verified 01/24/23 22:11 Physical Exam Osteopathic Statement: *. No significant issues noted on an osteopathic struc tural exam other than those noted in the History and Physical/Consult. Vitals: Vital Signs Temp Pulse Pulse Pulse Resp BP BP 01/27/23 07:59 18 01/27/23 07:51 78 18 119/76 01/27/23 07:46 97.8 F 75 17 115/76 01/27/23 04:04 96 20 01/27/23 00:26 01/26/23 23:20 118 H 21 01/26/23 20:59 01/26/23 20:47 110 H 01/26/23 20:39 100 01/26/23 19:44 126 H 18 106/76 01/26/23 17:47 01/26/23 17:33 01/26/23 16:00 98 F 91 18 134/92 01/26/23 15:36 85 01/26/23 15:25 88 01/26/23 12:24 97.7 F 88 18 119/70 01/26/23 11:41 97.3 F L 85 17 130/83 BP Pulse Ox FiO2 01/27/23 07:59 01/27/23 07:51 97 01/27/23 07:46 97 01/27/23 04:04 124/82 97 01/27/23 00:26 40 01/26/23 23:20 134/86 93 L 40 01/26/23 20:59 40 01/26/23 20:47 01/26/23 20:39 50 01/26/23 19:44 95 50 01/26/23 17:47 50 01/26/23 17:33 50 01/26/23 16:00 97 01/26/23 15:36 01/26/23 15:25 01/26/23 12:24 97 01/26/23 11:41 100 Intake and Output 01/26/23 01/27/23 01/27/23 22:59 06:59 14:59 Intake Total 900 Output Total 300 375 Balance -300 525 Intake: IV 60 Invasive Line 2 10 Intake, IV Titration 600 Amount Sodium Chloride 0.9% 1, 600 000 ml @ 50 mls/hr IV . Q20H [facility] Rx#:[id number] Oral 240 Output: Urine 300 375 Other: Voiding Method Urinal Urinal Urinal # Voids 2 # Bowel Movements 1 Weight 60 kg No acute distress, oriented 3. Currently on 3 L. No conversational dyspnea or use of accessory muscles. HEENT examination is grossly unremarkable. Neck supple. Full range of motion. No adenopathy thyromegaly or neck vein distention. Cardiovascular examination reveals regular rhythm rate. S1-S2 normal. No S3 or S4. No discernible murmur noted. Heart rate 78 bpm. Lungs reveal mild scattered rhonchi and mild expiratory wheezes. Breath sounds are equal. Breath sounds are diminished throughout. No crackles. 3 L saturation is 97%. Abdomen soft bowel sounds are heard. No masses or tenderness. Extremities are intact. No cyanosis clubbing or edema. Skin is without rash or lesion. Neurologic examination is brief but nonfocal. Results - Laboratory Findings CBC and BMP: 01/26/23 07:33 01/26/23 07:33 ABG ABG pH 7.32 (7.35-7.45) L 01/26/23 17:29 ABG pCO2 56 mmHg (35-45) H 01/26/23 17:29 ABG pO2 107 mmHg (83-108) 01/26/23 17:29 ABG O2 Saturation 97.6 % (94-97) H 01/26/23 17:29 PT/INR, D-dimer PT 9.5 sec (10.0-12.5) L 01/24/23 18:45 INR 0.8 (<1.2) 01/24/23 18:45 Abnormal lab findings: Abnormal Labs 01/24/23 01/24/23 01/24/23 18:45 18:45 18:45 RBC 4.29 L Hgb PT 9.5 L ABG pH ABG pCO2 ABG HCO3 ABG Total CO2 ABG O2 Saturation Sodium Carbon Dioxide 32 H BUN 32 H Creatinine 1.26 H Glucose 103 H Total Protein 5.9 L Albumin Cholesterol HDL Cholesterol 01/25/23 01/26/23 01/26/23 07:42 07:33 07:33 RBC Hgb 12.7 L PT ABG pH ABG pCO2 ABG HCO3 ABG Total CO2 ABG O2 Saturation Sodium 135 L Carbon Dioxide BUN 36 H Creatinine Glucose Total Protein 5.7 L Albumin 3.3 L Cholesterol 211.00 H HDL Cholesterol 83.20 H 01/26/23 17:29 RBC Hgb PT ABG pH 7.32 L ABG pCO2 56 H ABG HCO3 29 H ABG Total CO2 31 H ABG O2 Saturation 97.6 H Sodium Carbon Dioxide BUN Creatinine Glucose Total Protein Albumin Cholesterol HDL Cholesterol - Diagnostic Findings Chest x-ray: image reviewed Assessment and Plan Assessment: Transient respiratory distress, resolved. Episodes of syncope, status post placement of a loop recorder, 01/27/2023. History of severe oxygen-dependent COPD with multiple admissions this year. Previous history of heavy tobacco use. Chronic hypoxemic respiratory failure, on home O2. History of chronic atrial fibrillation. History of prostate cancer. History of gastroesophageal reflux disease. History of hyperlipidemia. Plan: Plan dated 01/27/2023. The patient appears be much better this morning, compared to yesterday. According to the nurse practitioner, the patient may of been having issues related to constipation, or inability to have a bowel movement. Currently, he's on 3 L. He recently had a loop recorder placed. He's not having any resp iratory distress or difficulty. He was not admitted for a respiratory issue. He was admitted because of syncope. We will continue to follow make recommendations along the way. Time with Patient: Greater than 30
--- NOTE | 2023-01-27 11:42 | P.PN ---
Subjective Progress Note Date: 01/27/23 CHIEF COMPLAINT: No output from ostomy 2 days HISTORY OF PRESENT ILLNESS: Patient is in the hospital after syncopal episode. He had a loop recorder placed today. Patient started having output from his o stomy yesterday evening. He denies any abdominal pain. Denies any nausea or vomiting. Computed tomography scan showed no suspicious dilated loops of bowel. No evidence of obstruction. No free air. Afebrile. PHYSICAL EXAM: VITAL SIGNS: Reviewed. GENERAL: Well-developed in no acute distress. ABDOMEN: Soft. Nondistended. Nontender. Ostomy bag with stool present NEUROLOGIC: Alert and oriented. Cranial nerves II through XII grossly intact. ASSESSMENT: 1. Abdominal distention. No output from ostomy. Resolved 2. History of perforated diverticulitis status post sigmoid colectomy with end colostomy on 08/02/2022 3. Syncopal episode followed by cardiology PLAN: -Patient can have regular diet -Encourage patient to ambulate Physician Grave Cleaner note has been reviewed by physician. Signing provider agrees with the documented findings, assessment, and plan of care. Objective - Vital Signs Vital signs: Vital Signs Temp 97.8 F 01/27/23 07:46 Pulse 78 01/27/23 07:51 Resp 18 01/27/23 07:59 BP 119/76 01/27/23 07:51 Pulse Ox 97 01/27/23 07:51 FiO2 40 01/27/23 00:26 Intake & Output 01/26/23 01/27/23 01/27/23 18:59 06:59 18:59 Intake Total 125 900 Output Total 75 300 375 Balance 50 -300 525 Weight 60 kg Intake: IV 60 Invasive Line 2 10 Intake, IV Titration 600 Amount Sodium Chloride 0.9% 1, 600 000 ml @ 50 mls/hr IV . Q20H [facility] Rx#:[id number] Oral 125 240 Output: Urine 75 300 375 Other: Voiding Method Urinal Urinal Urinal # Voids 2 # Bowel Movements 1 - Labs CBC & Chem 7: 01/26/23 07:33 01/26/23 07:33 Labs: Abnormal Lab Results - Last 24 Hours (Table) 01/26/23 Range/Units 17:29 ABG pH 7.32 L (7.35-7.45) ABG pCO2 56 H (35-45) mmHg ABG HCO3 29 H (21-25) mmol/L ABG Total CO2 31 H (19-24) mmol/L ABG O2 Saturation 97.6 H (94-97) %
[2023-01-27] MEDS: ATORVASTATIN 80 MG TAB PO SCH (19:57)
[2023-01-27 22:54] VITALS: TEMP 97.6
[2023-01-28 02:55] LABS: HCT 33.3 % (39.0-53.0); HGB 11.1 gm/dL (13.0-17.5); MCH 30.1 pg (25.0-35.0); MCHC 33.2 g/dL (31.0-37.0); MCV 90.7 fL (80.0-100.0); Mean Platelet Volume 7.5; Platelet Count 244 k/uL (150-450); RBC 3.67 m/uL (4.30-5.90); RDW 15.4 % (11.5-15.5); WBC 10.9 k/uL (3.8-10.6)
[2023-01-28] MEDS: HYDROcodone/APAP 5-325MG 1 EACH TAB PO PRN ×2 (03:58→08:18)
[2023-01-28 04:03] LABS: ALT 29 U/L (4-49); AST 34 U/L (17-59); African American GFR (CKD) 74 (>60 ml/min/1.73 sqM); Alkaline Phosphatase 61 U/L (38-126); Anion Gap 8 mmol/L; Blood Urea Nitrogen 42 mg/dL (9-20); Calcium 8.8 mg/dL (8.4-10.2); Carbon Dioxide 26 mmol/L (22-30); Chloride 101 mmol/L (98-107); Glucose 124 mg/dL (74-99); Magnesium 2.3 mg/dL (1.6-2.3); Non-African American GFR(CKD) 64 (>60 ml/min/1.73 sqM); Potassium 4.4 mmol/L (3.5-5.1); Sodium 135 mmol/L (137-145); Total Bilirubin 0.5 mg/dL (0.2-1.3); Total Protein 5.4 g/dL (6.3-8.2)
[2023-01-28] MEDS: PANTOPRAZOLE 40 MG TABLET PO SCH (05:57)
[2023-01-28] MEDS: FUROSEMIDE 20 MG TAB PO SCH (08:04)
[2023-01-28 08:13] VITALS: BP 112/67; RESP 18
[2023-01-28] MEDS: SYMBICORT 160-4.5 MCG INHALER INHALATION SCH (08:35)
[2023-01-28] MEDS: IPRATROPIUM-ALBUTEROL 3 ML NEB INHALATION SCH (08:35)
[2023-01-28 08:58] VITALS: PULSE 95
[2023-01-28] MEDS ORDERED: APIXABAN 5 MG TAB PO SCH (09:00)
--- NOTE | 2023-01-28 10:06 | P.PN ---
Subjective Progress Note Date: 01/28/23 Principal diagnosis: Shortness of breath. Pulmonary consult dated 01/27/2023. 73-year-old male who was seen in the emergency department on January 24, because of a fall, and a right arm injury. The patient apparently has been having blackout spells or syncope at home, and, was evaluated in the hospital, and admitted. We were consulted yesterday, for the first time, because of respiratory difficulty, and abnormal vital signs, likely related to constipation. The patient is seen today in room 358. The patient has had 6 admissions to the hospital, this year alone. The patient denies shortness of breath, or denies any respiratory issues, that brought him into the hospital. The patient was scheduled for a loop recorder today. That has been done. Currently, he's on 3 L of oxygen, and getting saline at 50 mL an hour. He has a history of COPD, atrial fibrillation, gastroesophageal reflux disease, pulmonary embolism, prostate cancer, and a previous history of tobacco use. White count was 6.7, hemoglobin 12.7, hematocrit 40.4, with a normal platelet count. Blood gases done yesterday at the rapid response, reveals a pO2 of 107, pCO2 of 56, and a pH is 7.32. Sodium is 135, potassium 4.4, chlorides 102, CO2 26, BUN 36, creatinine 1.20. Lactic acid was 1. Albumin was 3.3. Chest x-ray is reviewed, and consistent with mild interstitial edema. Progress note dated 01/28/2023. 73-year-old male well-known to our service. The patient has a history of very severe COPD. The patient was initially seen in the emergency department, on January 24, because of a fall, and injury to his right arm. The patient had a loop recorder placed yesterday. Currently, the patient is resting comfortably. He's seen in room 358. He's currently on 3 L of oxygen which is what he uses at home. He did not use of BiPAP device last night, and, is currently not receiving any IV fluids. White count is 10.9, hemoglobin 11.1, hematocrit 33.3, and platelet count 244,000. Sodium 135, potassium 4.4, chlorides 101, CO2 26, BUN 42, creatinine 1.14. Albumin is 3. Objective - Vital Signs Vital signs: Vital Signs Temp 97.6 F 01/27/23 20:00 Pulse 95 01/28/23 08:47 Resp 18 01/28/23 07:57 BP 112/67 01/28/23 07:57 Pulse Ox 96 01/28/23 07:57 FiO2 40 01/27/23 00:26 Intake & Output 01/27/23 01/28/23 01/28/23 18:59 06:59 18:59 Intake Total 1130 540 603 Output Total 600 300 Balance 530 240 603 Weight 60.2 kg Intake: IV 70 5 Invasive Line 2 20 5 Intake, IV Titration 600 Amount Sodium Chloride 0.9% 1, 600 000 ml @ 50 mls/hr IV . Q20H [facility] Rx#:[id number] Oral 460 540 598 Output: Urine 600 300 Other: Voiding Method Urinal Urinal Urinal # Bowel Movements 50 1 - Exam No acute distress, oriented 3. Currently on 3 L. No conversational dyspnea or use of accessory muscles. HEENT examination is grossly unremarkable. Neck supple. Full range of motion. No adenopathy thyromegaly or neck vein distention. Cardiovascular examination reveals regular rhythm rate. S1-S2 normal. No S3 or S4. No discernible murmur noted. Heart rate 95 bpm. Lungs reveal mild scattered rhonchi and mild expiratory wheezes. Breath sounds are equal. Breath sounds are diminished throughout. No crackles. 3 L saturation is 96%. Abdomen soft bowel sounds are heard. No masses or tenderness. Extremities are intact. No cyanosis clubbing or edema. Skin is without rash or lesion. Neurologic examination is brief but nonfocal. - Labs CBC & Chem 7: 01/28/23 02:38 01/28/23 02:38 Labs: Abnormal Lab Results - Last 24 Hours (Table) 01/28/23 01/28/23 Range/Units 02:38 02:38 WBC 10.9 H (3.8-10.6) k/uL RBC 3.67 L (4.30-5.90) m/uL Hgb 11.1 L (13.0-17.5) gm/dL Hct 33.3 L (39.0-53.0) % Sodium 135 L (137-145) mmol/L BUN 42 H (9-20) mg/dL Glucose 124 H (74-99) mg/dL Total Protein 5.4 L (6.3-8.2) g/dL Albumin 3.0 L (3.5-5.0) g/dL Microbiology - Last 24 Hours (Table) 01/26/23 18:25 Blood Culture - Preliminary Blood Assessment and Plan Assessment: Transient respiratory distress, resolved. Episodes of syncope, status post placement of a loop recorder, 01/27/2023. History of severe oxygen-dependent COPD with multiple admissions this year. Previous history of heavy tobacco use. Chronic hypoxemic respiratory failure, on home O2. History of chronic atrial fibrillation. History of prostate cancer. History of gastroesophageal reflux disease. History of hyperlipidemia. Plan: Plan dated 01/27/2023. The patient appears be much better this morning, compared to yesterday. According to the nurse practitioner, the patient may of been having issues related to constipation, or inability to have a bowel movement. Currently, he's on 3 L. He recently had a loop recorder placed. He's not having any respiratory distress or difficulty. He was not admitted for a respiratory issue. He was admitted because of syncope. We will continue to follow make recommendations along the way. Plan dated 01/28/2023. The patient is seen today in room 358. The patient feels well, and feels like he is at his baseline. He continues on oxygen at 3 L, which is what he uses at home. The patient did have a loop recorder placed. He's been having episodes of lightheadedness, dizziness, and gaudencio syncope. From the COPD standpoint, he is at baseline. Labs, x-rays, medications are reviewed. Prognosis is certainly guarded. We will continue to follow the patient, and make recommendations along the way. Time with Patient: Less than 30
--- NOTE | 2023-01-28 10:18 | P.PN ---
Subjective Progress Note Date: 01/28/23 History of present illness: This is a 73-year-old male with past medical history of COPD, hypertension, dy slipidemia, pulmonary embolism, sinus tachycardia. Patient apparently has had 3 such episodes in the past several months. He has syncopal event 1 year ago and underwent a 24-hour Holter monitor at that time that did not reveal any tachycardia or bradycardia arrhythmias. Patient presented to the hospital due to episode of syncope. Patient states that he was up to the bathroom yesterday and his nurse stated he did fine. Has not been out of bed this morning. Orthostatic vital signs have been negative. Limited echocardiogram reveals normal LV systolic function. In general, patient feels fine. No lightheadedness or dizziness, no chest pain or shortness of breath. Patient is concerned that he has not had any output from his ostomy for the past 2 days. 01/28 Patient had a loop recorder placed yesterday. Site without signs of infection. Eliquis has been resumed. This morning he had a 7 beat run of nonsustained ventricular tachycardia around 7 AM. Patient had no symptoms with that. He continues to have no lightheadedness, dizziness, chest pain. His abdominal discomfort/ostomy issue with no output has resolved. Heart rate is running 90s to low 100s, blood pressure 112/67, pulse ox 96% on 3 L nasal cannula. Physical examination: Gen: This is a 73-year-old male resting in bed and appears to be comfortable and in no acute distress. VS: reviewed HEENT: Head is atraumatic, normocephalic. Pupils equal, round. Sclerae is anicteric. NECK: Supple. No JVD. . LUNGS: Clear to auscultation. No wheezes or rhonchi. No intercostal retractions. HEART: Regular rate and rhythm. No murmur. ABDOMEN: Soft No tenderness. Colostomy in place. EXTREMITIES: Trace pedal edema. No calf tenderness. NEUROLOGICAL: Patient is awake, alert and oriented x3. Assessment: Syncope of unclear etiology, orthostatics negative and echocardiogram unremarkable. History of pulmonary embolism COPD Hypertension Dyslipidemia Plan: Patient is status post loop recorder. Add Toprol-XL 25 mg daily Patient is cleared for discharge from cardiology and plan for follow-up with Dr. MEG العلي in 2-3 weeks. Nurse practitioner note has been reviewed, I agree with documented findings and plan of care. Patient was seen and examined. Objective - Vital Signs Vital signs: Vital Signs Temp 97.6 F 01/27/23 20:00 Pulse 104 H 01/28/23 07:57 Resp 18 01/28/23 07:57 BP 112/67 01/28/23 07:57 Pulse Ox 96 01/28/23 07:57 FiO2 40 01/27/23 00:26 Intake & Output 01/27/23 01/28/23 01/28/23 18:59 06:59 18:59 Intake Total 1130 540 5 Output Total 600 300 Balance 530 240 5 Weight 60.2 kg Intake: IV 70 5 Invasive Line 2 20 5 Intake, IV Titration 600 Amount Sodium Chloride 0.9% 1, 600 000 ml @ 50 mls/hr IV . Q20H [facility] Rx#:[id number] Oral 460 540 Output: Urine 600 300 Other: Voiding Method Urinal Urinal Urinal # Bowel Movements 50 1 - Labs CBC & Chem 7: 01/28/23 02:38 01/28/23 02:38 Labs: Abnormal Lab Results - Last 24 Hours (Table) 01/28/23 01/28/23 Range/Units 02:38 02:38 WBC 10.9 H (3.8-10.6) k/uL RBC 3.67 L (4.30-5.90) m/uL Hgb 11.1 L (13.0-17.5) gm/dL Hct 33.3 L (39.0-53.0) % Sodium 135 L (137-145) mmol/L BUN 42 H (9-20) mg/dL Glucose 124 H (74-99) mg/dL Total Protein 5.4 L (6.3-8.2) g/dL Albumin 3.0 L (3.5-5.0) g/dL Microbiology - Last 24 Hours (Table) 01/26/23 18:25 Blood Culture - Preliminary Blood
[2023-01-28] MEDS ORDERED: METOPROLOL SUCCINATE (ER) 25 MG TAB.ER.24H PO SCH (10:30)
--- NOTE | 2023-01-28 10:45 | P.DS ---
Providers Date of admission: 01/24/23 21:04 Expected date of discharge: 01/28/23 Attending physician: Jose Alford MD Consults: 01/24/23 21:02 Consult Physician Urgent Consulting Provider: [facility] Consult Reason/Comments: Near syncope Do you want consulting provider notified?: Yes 01/26/23 08:48 Consult Physician Routine Consulting Provider: Reynold Moyer Consult Reason/Comments: pt reports no output from ostomy in 2 days Do you want consulting provider notified?: Yes 01/26/23 18:20 Consult Physician Routine Consulting Provider: Luis M Bravo Consult Reason/Comments: pt w/ adv COPD w/ chronic O2 dep, had episode of hypoxia overnight on BIPAP Do you want consulting provider notified?: Yes Primary care physician: Maico Anders [facility] Course: Discharge Diagnosis: Acute on chronic respiratory failure with hypoxia and hypercarbia, resolved. Patient has been discharged home with [facility] including nursing, physical therapy, and occupational therapy. In addition to [facility] he is also being discharged home with COPD Navigator program and Palliative Care for assistance with managing his advanced COPD and preventing/monitoring for exacerbations. Recurrent Syncopal episodes. Patient was admitted secondary to chief complaint of recurrent syncopal episodes and EKG findings were concerning for R-on-T phenomenon which places patient at risk for ventricular arrhythmias. Patient was started on a low-dose metoprolol and underwent surgical placement of loop recorder on 01/27/23. EKG concerning for possible R-on-T phenomenon. Patient was started on a low- dose metoprolol and underwent surgical placement of loop recorder on 01/27/23. Acute kidney injury, improved Constipation with History of perforated diverticulitis with colostomy placement, patient reported no output from ostomy 2 days. Obstruction ruled out and constipation resolved. Abdominal distention and nausea, resolved COPD with emphysema and chronic hypoxic respiratory failure, not in acute exacerbation. Recently diagnosed pulmonary emboli. Patient to continue anticoagulation with Eliquis 5 mg by mouth twice daily, History of perforated diverticulitis status post colostomy. Patient may follow up outpatient with general surgeon as needed. Hyperlipidemia Patient to continue atorvastatin 80 mg nightly. Hospital Course: Patient is a very pleasant 73-year-old male with a past medical history of recent diagnosis of pulmonary emboli on anticoagulation with Eliquis, COPD with chronic hypoxic respiratory failure on 2 L is a cannula continuously at home, perforated diverticulitis status post colostomy, and hyperlipidemia. He presented to the emergency department on 01/24/23 with a chief complaint of syncopal episodes. Patient reported experiencing multiple episodes of loss of consciousness over the past few weeks awakening on the ground. Patient reported injury to his right wrist during most recent syncopal episode. He underwent full evaluation in the emergency department. Upon arrival to our facility vital signs showing blood pressure 97/60, heart rate 116, respiratory rate 20, temp 98.6F, and SpO2 of 95% on 3 L O2 via nasal cannula. EKG was completed showing normal sinus rhythm and 95 bpm with occasional PVCs and T-wave inversion in lateral lead aVL otherwise no noted T-wave or ST abnormalities upon personal review and interpretation. T-wave inversion in aVL is not a new finding and was present on previous EKG completed 12/22/22. EKG is concerning for possible R-on-T phenomenon with PVCs occurring at the end of T-wave of previous beat. Labs completed and reviewed. CBC unremarkable. Coagulation profile showing slightly low PT of 9.5 otherwise normal findings. BMP showing hypercarbia with bicarb is 32 consistent with patient's COPD slight elevation of renal function with BUN of 32, creatinine 1.26, and GFR 56 with baseline creatinine of 1.0. Liver profile unremarkable. Troponin 0.012. Urinalysis negative for infection Covid PCR negative. CT head negative for acute intercranial process and negative for cervical spine fracture, revealing advanced emphysema. Chest x-ray consistent with COPD with flattening of diaphragm and increased lucency of lungs but negative for acute cardiopulmonary process. X-ray right wrist negative for acute process showing no reported fracture, dislocation, or effusion. Patient was admitted under our services with consultation to cardiology. Patient remained on telemetry showing frequent PVCs remaining concerning of R-on-T phenomenon placing patient at risk for ventricular arrhythmias. Cardiology evaluated. Echocardiogram completed revealing a preserved EF of 55-60% with no significant valvular or structural abnormalities reported. Patient also reported 2 days of no output from ostomy. General surgery was consulted and KUB was completed negative for acute process and CT abdomen and pelvis with oral and IV contrast also completed stating no suspicious dilated loops of bowel, ostomy appearing patent, and mild herniation of mesenteric fat into the ostomy region with ostomy bowel decompressed without obvious obstruction and no free air in the abdomen or abnormal fluid collections. Then on the evening of 01/26/23 patient developed intractable abdominal pain with nausea and became hypertensive, tachycardic, and hypoxic. An A-team was called at this time secondary to acute on chronic respiratory failure with hypoxia. Patient was initially found to be in respiratory distress with tachycardic heart rate 132, tachypneic respiratory rate 28, and hypertensive blood pressure 174/71 and hypoxic with SpO2 of 82% on 6 L O2. Patient required placement on nonrebreather and later BiPAP. Again patient reported at this time intractable diffuse abdominal pain and nausea. These complaints lasted a few hours and patient then had significant amount of firm formed form stool from ostomy which soon after resulted in resolution of his tachycardia, hypertension, tachypnea, abdominal pain/discomfort, nausea, and respiratory distress and patient completely back to baseline. Symptoms possibly resulting from vasovagal episode of large firm bowel movement from ostomy versus results of intractable pain, it is unclear. However, patient spontaneously improved after bowel movement and has been at baseline since. On the morning of 12/27/22 patient underwent surgical placement of loop recorder. He was monitored overnight and patient's condition remained stable and at baseline. Patient appears to be doing well ambulating with walker and room. Had long discussion with patient patient being discharged home with home care including nursing, physical therapist, and occupational therapists as well as COPD Navigator program and palliative care. Physical exam: Vital signs reviewed and stable. General: Nontoxic, no distress and appears stated age. Derm: Skin warm and dry, normal coloration for ethnicity. Head: Atraumatic, normocephalic and symmetric. Eyes: EOMs intact, no lid lag, and anicteric sclera Mouth: no lip lesions, mucus membranes moist Cardiovascular: regular rate and rhythm with normal S1S2, no murmur noted, positive posterior tibial pulses bilaterally, and cap refill < 2 seconds. Lungs: Respirations even, regular, and unlabored on 3 L O2. Lungs CTA bilatera lly, no rhonchi, no rales, no wheezing, and no accessory muscle usage. Abdominal: Distended, nontender to palpation, no guarding, no appreciable organomegaly. Colostomy in place. Ext: ROM intact. No gross muscle atrophy, no edema, no contractures. Neuro: Speech clear, face symmetrical and CN II-XII grossly intact with no noted focal neuro deficits Psych: Alert and oriented to person, place, time, and situation. Appropriate and pleasant affect. A total of minutes of time were spent preparing this complex discharge summary. Pt was discharged on 01/28/23 at 10:42 AM. Patient was seen independently by Nurse Practitioner. This document was prepared using [employer] dictation software. Please allow for errors in transmission line engineer while rare they do occur. Patient Condition at Discharge: Stable Plan - Discharge Summary Discharge Rx Participant: No New Discharge Prescriptions: New Metoprolol Succinate (ER) [Toprol XL] 25 mg PO DAILY 30 Days #30 tab Continue Ipratropium-Albuterol Nebulize [Duoneb 0.5 mg-3 mg/3 ml Soln] 3 ml INHALATION RT-QID PRN PRN Reason: Shortness Of Breath Albuterol Sulfate [Albuterol Sulfate Hfa] 1 - 2 puff INHALATION RT-Q6H PRN PRN Reason: Shortness Of Breath Atorvastatin [Lipitor] 80 mg PO HS #90 tab Theophylline 12 Hour [Robe-Dur] 300 mg PO DAILY Pantoprazole [Protonix] 40 mg PO AC-BRKFST #15 tab Budesonide-Formot 160-4.5 Mcg [Symbicort 160-4.5 Mcg Inhaler] 2 puff INHALATION RT-BID #1 each Acetaminophen Tab [Tylenol] 650 mg PO Q6HR PRN tab PRN Reason: Mild Pain (Scale 1 To 3) Furosemide [Lasix] 20 mg PO DAILY Apixaban [Eliquis] 5 mg PO BID LORazepam [Ativan] 0.5 mg PO TID PRN 3 Days #9 tab PRN Reason: Anxiety Discharge Medication List Ipratropium-Albuterol Nebulize [Duoneb 0.5 mg-3 mg/3 ml Soln] 3 ml INHALATION RT-QID PRN 07/30/21 [History] Albuterol Sulfate [Albuterol Sulfate Hfa] 1 - 2 puff INHALATION RT-Q6H PRN 10/21/22 [History] Apixaban [Eliquis] 5 mg PO BID 10/21/22 [History] Atorvastatin [Lipitor] 80 mg PO HS #90 tab 10/23/22 [Rx] Theophylline 12 Hour [Robe-Dur] 300 mg PO DAILY 12/15/22 [History] LORazepam [Ativan] 0.5 mg PO TID PRN 3 Days #9 tab 12/22/22 [Rx] Acetaminophen Tab [Tylenol] 650 mg PO Q6HR PRN tab 01/03/23 [Rx] Budesonide-Formot 160-4.5 Mcg [Symbicort 160-4.5 Mcg Inhaler] 2 puff INHALATION RT-BID #1 each 01/03/23 [Rx] Pantoprazole [Protonix] 40 mg PO AC-BRKFST #15 tab 01/03/23 [Rx] Furosemide [Lasix] 20 mg PO DAILY 01/24/23 [History] Metoprolol Succinate (ER) [Toprol XL] 25 mg PO DAILY 30 Days #30 tab 01/28/23 [Rx] Follow up Appointment(s)/Referral(s): Arina Pérez MD [STAFF PHYSICIAN] - 1 Week (Offices are closed at this time. Please call to make a follow up when offices are open Monday.) [facility], [NON-STAFF] - 1-2 Days (Offices are closed at this time. Please call to make a follow up when offices are open Monday.) Maico Anders MD [Primary Care Provider] - 1-2 days (Offices are closed at this time. Please call to make a follow up when offices are open Monday.) Joseluis Post MD [STAFF PHYSICIAN] - 1 Week (Offices are closed at this time. Please call to make a follow up when offices are open Monday.) Patient Instructions/Handouts: Syncope (DC), COPD (Chronic Obstructive Pulmonary Disease) (DC), Colectomy Diet (DC), Cardiac Loop Recorder Insertion (DC) Activity/Diet/Wound Care/Special Instructions: Activity: As tolerated. Use 4 wheeled walker at all times when up and ambulating. Take breaks as needed and immediately sit down to a lower surface such as couch, edilberto r or even the ground if you feel dizzy/lightheaded like you are going to pass out. Diet: Heart healthy and carb consistent diet. Recommend protein supplements (such as Premeire Protein or Ensure) 3 times daily between meals. Special Instructions: Take all of your medications as directed and remember to keep all of your doctor's appointments and follow-up as needed. You will need to follow up with your PCP, psychologist engineering and business planning analyst. You are being discharged home with [facility] including nursing, physical therapy, and occupational therapy. In addition to [facility] you're also being discharged home with COPD Navigator program and palliative care for assistance with managing your advanced COPD and preventing/monitoring for exacerbations. Thank you for allowing us to participate in your care, it was truly a pleasure having you for our patient!!! Discharge Disposition: HOME WITH HOME HEALTH SERVICES
--- NOTE | 2023-01-28 11:26 | P.PN ---
Subjective Progress Note Date: 01/28/23 Principal diagnosis: Diverticulitis Pain improved dramatically. Tolerating diet. Positive bowel movement. Objective - Vital Signs Vital signs: Vital Signs Temp 97.6 F 01/27/23 20:00 Pulse 95 01/28/23 08:47 Resp 18 01/28/23 07:57 BP 112/67 01/28/23 07:57 Pulse Ox 96 01/28/23 07:57 FiO2 40 01/27/23 00:26 Intake & Output 01/27/23 01/28/23 01/28/23 18:59 06:59 18:59 Intake Total 1130 540 603 Output Total 600 300 200 Balance 530 240 403 Weight 60.2 kg Intake: IV 70 5 Invasive Line 2 20 5 Intake, IV Titration 600 Amount Sodium Chloride 0.9% 1, 600 000 ml @ 50 mls/hr IV . Q20H [facility] Rx#:[id number] Oral 460 540 598 Output: Urine 600 300 200 Other: Voiding Method Urinal Urinal Urinal # Bowel Movements 50 1 - Exam Alert and oriented 3 heart is regular rate and rhythm lungs are clear to auscultation abdomen is soft nontender no rebound - Labs CBC & Chem 7: 01/28/23 02:38 01/28/23 02:38 Labs: Abnormal Lab Results - Last 24 Hours (Table) 01/28/23 01/28/23 Range/Units 02:38 02:38 WBC 10.9 H (3.8-10.6) k/uL RBC 3.67 L (4.30-5.90) m/uL Hgb 11.1 L (13.0-17.5) gm/dL Hct 33.3 L (39.0-53.0) % Sodium 135 L (137-145) mmol/L BUN 42 H (9-20) mg/dL Glucose 124 H (74-99) mg/dL Total Protein 5.4 L (6.3-8.2) g/dL Albumin 3.0 L (3.5-5.0) g/dL Microbiology - Last 24 Hours (Table) 01/26/23 18:25 Blood Culture - Preliminary Blood Assessment and Plan (1) Diverticulitis large intestine Current Visit: Yes Status: Acute Code(s): K57.32 - DVTRCLI OF LG INT W/O PERFORATION OR ABSCESS W/O BLEEDING SNOMED Code(s): 5602747 (2) Diverticulitis large intestine Current Visit: Yes Status: Acute Code(s): K57.32 - DVTRCLI OF LG INT W/O PERFORATION OR ABSCESS W/O BLEEDING SNOMED Code(s): 6926146 Plan: Okay for discharge with IV antibiotics per primary.
== END 2023-01-28 11:43 | disposition home health service (06) | DRG 260 ==
LOC: EC 16:50 → OBSVTOIN 21:04 → 3SCARD 21:04 → INTOOBSV 21:04 → 3SCARD 23:10
PROVIDERS: ADMIT Internal Medicine; ATTEND Internal Medicine
PROC: 5A09357 Assistance with Respiratory Ventilation, Less than 24 Consecutive Hours, Continuous Positive Airway Pressure (ICD-10-PCS; 2023-01-26)
PROC: 0JH632Z Insertion of Monitoring Device into Chest Subcutaneous Tissue and Fascia, Percutaneous Approach (ICD-10-PCS; principal; 2023-01-27 09:30)
DX: I49.3 Ventricular premature depolarization (principal); J96.21 Acute and chronic respiratory failure with hypoxia; J96.22 Acute and chronic respiratory failure with hypercapnia; N17.9 Acute kidney failure, unspecified; I47.20 Ventricular tachycardia, unspecified; I48.20 Chronic atrial fibrillation, unspecified; E87.29 Other acidosis; J43.9 Emphysema, unspecified; C61 Malignant neoplasm of prostate; Z93.3 Colostomy status; K66.8 Other specified disorders of peritoneum; I10 Essential (primary) hypertension; E78.5 Hyperlipidemia, unspecified; K21.9 Gastro-esophageal reflux disease without esophagitis; K59.00 Constipation, unspecified; S63.501A Unspecified sprain of right wrist, initial encounter; W19.XXXA Unspecified fall, initial encounter; Z20.822 Contact with and (suspected) exposure to COVID-19; Z99.81 Dependence on supplemental oxygen; Z51.5 Encounter for palliative care; Z28.310 Unvaccinated for COVID-19; Z86.711 Personal history of pulmonary embolism; Z87.891 Personal history of nicotine dependence; Z79.01 Long term (current) use of anticoagulants; Z79.51 Long term (current) use of inhaled steroids; Z80.9 Family history of malignant neoplasm, unspecified; Z79.899 Other long term (current) drug therapy; Z90.49 Acquired absence of other specified parts of digestive tract; Z87.19 Personal history of other diseases of the digestive system
CPT/HCPCS: 33285; 36415; 70450; 71045; 71046; 72125; 74018; 74177; 80053; 80061; 81003; 82805; 83605; 83735; 84484; 85025; 85027; 85610; 85730; 87040; 87502; 87635; 93005; 93308; 94640; 94660; 94760; 96361; 96374; 96375; 99285

== ENCOUNTER → 2023-02-14 | Outpatient (CLI) | payer MEDICARE, OTHER ==
--- NOTE | 2023-02-14 14:25 | P.SLEEP ---
History of Present Illness H&P Date: 02/14/23 Patient is a very pleasant 73-year-old male who was referred to the sleep center. The patient is not aware why he is coming in to the sleep center. This referral was probably made by his primary care physician. The patient is known to me. I taking care of him during early hospitalization when he had a diverticulitis And the patient had an acute perforated diverticulitis with abscess formation and the patient required a sigmoid colectomy and end colostomy and this was done on 08/02/2022. Subsequently, the patient was hospitalized for pulmonary embolism and he was started on anticoagulation with Eliquis. Is also evidence COPD and is oxygen dependent at 2-4 L/m nasal cannula. His based on the physical is in order of 26% of predicted. The patient has been followed up by Dr. Pérez regarding his COPD and is been maintained on Symbicort as maintenance 2 puffs twice a day and albuterol about treatments up to 3 times a day. He is compliant oxygen therapy. No snoring. No witnessed apneas. No excess hypersomnia or sleepiness during the day. No history of any sleep apnea. I believe the patient was also given a noninvasive positive pressure ventilator through his primary care physician. The exact criteria that has been utilized to approve this device is not clear to me at this point in time. Exact type of machine pressure and setting is not known. The patient has used it for the past 3 days and he was unable to tolerate the treatment due to discomfort and high pressure sensation the patient was unable to achieve more than 2 hours of usage on the machine. He is not interested in undergoing BiPAP therapy at this point. He has not seen a major difference in his breathing, level of consciousness or daytime alertness while being on treatment. As mentioned, the patient has multiple medical problems and comorbidities. He has a recent history of pulmonary emboli on anticoagulation with Eliquis, COPD with chronic hypoxic respiratory failure on 2 L is a cannula continuously at home, perforated diverticulitis status post colostomy, and hyperlipidemia. He presented to the emergency department on 01/24/23 with a chief complaint of syncopal episodes. Patient reported experiencing multiple episodes of loss of consciousness over the past few weeks awakening on the ground. Patient reported injury to his right wrist during most recent syncopal episode. EKG was completed showing normal sinus rhythm and 95 bpm with occasional PVCs and T-wave inversion in lateral lead aVL otherwise no noted T-wave or ST abnormalities upon personal review and interpretation. T-wave inversion in aVL is not a new finding and was present on previous EKG completed 12/22/22. EKG is concerning for possible R-on-T phenomenon with PVCs occurring at the end of T-wave of previous beat. Urinalysis negative for infection Covid PCR negative. CT head negative for acute intercranial process and negative for cervical spine fracture, revealing advanced emphysema. Chest x-ray consistent with COPD with flattening of diaphragm and increased lucency of lungs but negative for acute c ardiopulmonary process. X-ray right wrist negative for acute process showing no reported fracture, dislocation, or effusion. Patient was admitted under our services with consultation to cardiology. Patient remained on telemetry showing frequent PVCs remaining concerning of R-on-T phenomenon placing patient at risk for ventricular arrhythmias. Cardiology evaluated. Echocardiogram completed revealing a preserved EF of 55-60% with no significant valvular or structural abnormalities reported. General surgery was consulted and KUB was completed negative for acute process and CT abdomen and pelvis with oral and IV contrast also completed stating no suspicious dilated loops of bowel, ostomy appearing patent, and mild herniation of mesenteric fat into the ostomy region with ostomy bowel decompressed without obvious obstruction and no free air in the abdomen or abnormal fluid collections. Then on the evening of 01/26/23 patient developed intractable abdominal pain with nausea and became hypertensive, tachycardic, and hypoxic. An A-team was called at this time secondary to acute on chronic respiratory failure with hypoxia. Patient was initially found to be in respiratory distress with tachycardic heart rate 132, tachypneic respiratory rate 28, and hypertensive blood pressure 174/71 and hypoxic with SpO2 of 82% on 6 L O2. Patient required placement on nonrebreather and later BiPAP. Again patient reported at this time intractable diffuse abdominal pain and nausea. These complaints lasted a few hours and patient then had significant amount of firm formed form stool from ostomy which soon after resulted in resolution of his tachycardia, hypertension, tachypnea, abdominal pain/discomfort, nausea, and respiratory distress and patient completely back to baseline. Symptoms possibly resulting from vasovagal episode of large firm bowel movement from ostomy versus results of intractable pain, it is unclear. However, patient spontaneously improved after bowel movement and has been at baseline since. On the morning of 12/27/22 patient underwent surgical placement of loop recorder. Review of Systems Constitutional: Reports fatigue, Reports weakness, Reports weight loss Eyes: denies as per HPI, denies blurred vision, denies bulging eye, denies decreased vision, denies diplopia, denies discharge, denies dry eye, denies irritation, denies itching, denies pain, denies photophobia, denies loss of peripheral vision, denies loss of vision, denies tunnel vision/blind spots Ears: deny: decreased hearing, ear discharge, earache, tinnitus Ears, nose, mouth and throat: Reports as per HPI Breasts: absent: as per HPI, gynecomastia Cardiovascular: Reports decreased exercise tolerance, Reports dyspnea on exertion, Reports shortness of breath Respiratory: Reports dyspnea, Reports excessive sputum, Reports home oxygen, Reports wheezing Gastrointestinal: Reports as per HPI (Patient is a colostomy), Reports constipation Genitourinary: Reports as per HPI Musculoskeletal: Reports as per HPI, Reports muscle weakness Musculoskeletal: absent: ankle pain, ankle stiffness, ankle swelling Integumentary: Reports as per HPI Neurological: Reports as per HPI, Reports weakness Psychiatric: Reports as per HPI Endocrine: Reports as per HPI, Reports fatigue Hematologic/Lymphatic: Reports as per HPI Allergic/Immunologic: Reports as per HPI Past Medical History Past Medical History: Atrial Fibrillation, Cancer, COPD, GERD/Reflux, Pulmonary Embolus (PE) Additional Past Medical History / Comment(s): positional upper abdominal pain stated when he changes position from laying to sitting and standing. Prostate cancer, pt states he has not undergone any tx for ca. History of Any Multi-Drug Resistant Organisms: None Reported Past Surgical History: Bowel Resection, Orthopedic Surgery, Tonsillectomy Additional Past Surgical History / Comment(s): Right shoulder arthroscopy. Colonoscopy. EGD, colostomy Past Anesthesia/Blood Transfusion Reactions: No Reported Reaction Additional Past Anesthesia/Blood Transfusion Reaction / Comment(s): Pt has CLAUSTROPHOBIA Smoking Status: Former smoker - Past Family History Father Family Medical History: Cancer Mother Family Medical History: Cancer Additional Family Medical History / Comment(s): Mother in her 50s with some form of cancer. Pt/spouse do not recall type of cancer. Medications and Allergies Home Medications Medication Instructions Recorded Confirmed Type Ipratropium-Albuterol Nebulize 3 ml INHALATION RT-QID PRN 07/30/21 01/24/23 History [Duoneb 0.5 mg-3 mg/3 ml Soln] Albuterol Sulfate [Albuterol 1 - 2 puff INHALATION RT-Q6H PRN 10/21/22 01/24/23 History Sulfate Hfa] Apixaban [Eliquis] 5 mg PO BID 10/21/22 01/24/23 History Atorvastatin [Lipitor] 80 mg PO HS #90 tab 10/23/22 01/24/23 Rx Theophylline 12 Hour [Robe-Dur] 300 mg PO DAILY 12/15/22 01/24/23 History LORazepam [Ativan] 0.5 mg PO TID PRN 3 Days #9 tab 12/22/22 01/24/23 Rx Acetaminophen Tab [Tylenol] 650 mg PO Q6HR PRN tab 01/03/23 01/24/23 Rx Budesonide-Formot 160-4.5 Mcg 2 puff INHALATION RT-BID #1 each 01/03/23 01/24/23 Rx [Symbicort 160-4.5 Mcg Inhaler] Pantoprazole [Protonix] 40 mg PO AC-BRKFST #15 tab 01/03/23 01/24/23 Rx Furosemide [Lasix] 20 mg PO DAILY 01/24/23 01/24/23 History Metoprolol Succinate (ER) [Toprol 25 mg PO DAILY 30 Days #30 tab 01/28/23 Rx XL] Allergies Allergy/AdvReac Type Severity Reaction Status Date / Time morphine Allergy Intermediate Nausea & Verified 01/28/23 09:33 Vomiting Physical Exam BP is 117/57, pulse is 103, respirations 16, temperature 98.1, weight is 138.2 pounds, the PA 23.9, [place] score is at 7, the size of the neck Is 16-3/4 of an inch and a pulse ox of 95% on 3 L of oxygen by nasal cannula. HEAD: Normocephalic. EYES: Normal reaction of pupils, equal size. NOSE: Clear with pink turbinates. THROAT: No erythema or exudates. NECK: No masses, no JVD. CHEST: No chest wall deformity. LUNGS: Equal air entry with bilateral end expiratory wheeze, diminished. CVS: S1 and S2 normal with no audible murmur, regular rhythm. The patient is a component of sinus tachycardia ABDOMEN: Postsurgical changes. Ostomy intact. Functioning with adequate stool. The patient has some positive bowel sounds . The surgical one-sided dry clean and intact. No abdominal tenderness around the stoma. No rebound tenderness. No guarding. SPINE: No scoliosis or deformity SKIN: No rashes CENTRAL NERVOUS SYSTEM: No focal deficits, tone is normal in all 4 extremities. EXTREMITIES: There is no peripheral edema. No clubbing, no cyanosis. Peripheral pulses are intact. Assessment and Plan Plan: Advanced COPD with an FEV1 of 26% of predicted maintain on oxygen and steroids, the patient has chronic hypoxic respiratory failure without signs of any chronic hypercapnic respiratory failure. Please refer to the earlier gases indicating adequate pCO2 without any significant hypercapnia and metabolic alkalosis. The patient has no signs of any CO2 narcosis. Is able to maintain oxygenation above 90% at 3 L. He is maintained on Symbicort. He was given a noninvasive positive pressure ventilator which she uses for the past few days and he was unable to continue the treatment due to poor tolerability and discomfort. No clear signs of any obstructive sleep apnea. History of recurrent syncope and the patient was given a loop recorder for cardiac monitoring Acute bilateral pulmonary embolism, Doppler of the lower extremity is negative and the patient is currently on anticoagulation with Eliquis chronic hypoxic respiratory failure currently on 3 L of oxygen by nasal cannula History of UTI, with previous cultures being positive for Pseudomonas aeruginosa History of acute perforated diverticulitis with abscess formation, status post sigmoid colectomy and end colostomy that was done on 08/02/2022. History of high-grade distal small bowel obstruction, recovered Prostate cancer Acid reflux Hiatal hernia. Plan My understanding on this patient is that the patient has advanced COPD with an FEV1 of 27% of predicted. He has chronic hypoxic without hypercapnic respiratory failure. The patient was most likely given a bilevel noninvasive positive pressure ventilator for management of chronic respiratory failure due to severe stable COPD. The purpose of this intervention has been to improve respiratory function and health related outcomes including shortness of breath and exercise capacity and have related [id number]. Noted the patient is not morbidly obese. He has tried the device at home for the past 3 days and he has not seen any major improvement. I offered the patient to come back and bring in his device to evaluate the setting and decide if there is any adjustments to be done to make treatment more comfortable. The patient showed no interest and the patient was very much interested in quitting the treatment. The patient was not interested in home NPPV. Accordingly, I asked the patient to discuss this further with his primary care and his financial compliance examiner,Dr Pérez, and get back to me. He needs my assistance in terms of achieving successful treatment with NPPV for chronic stable COPD. Sleep Note - Sleep Note Sleep Note: Temperature: Pulse Rate: Respiratory Rate: Blood Pressure: SpO2: Height: Weight: BMI: Neck Circumference:
== END ==
LOC: 3 N SLEEP 13:15
PROVIDERS: ATTEND Internal Medicine Critical Care Medicine
DX: J44.9 Chronic obstructive pulmonary disease, unspecified (principal); K21.9 Gastro-esophageal reflux disease without esophagitis; N40.0 Benign prostatic hyperplasia without lower urinary tract symptoms; I48.91 Unspecified atrial fibrillation; Z90.89 Acquired absence of other organs; Z87.891 Personal history of nicotine dependence; Z88.6 Allergy status to analgesic agent; Z79.899 Other long term (current) drug therapy
CPT/HCPCS: 99211

== ENCOUNTER 2023-04-07 03:43 | Observation (INO) | payer MEDICARE, OTHER ==
--- NOTE | 2023-04-07 04:31 | ED ---
SOB HPI - General Chief Complaint: Shortness of Breath Stated Complaint: Difficulty Breathing, Syncope Time Seen by Provider: 04/07/23 03:51 Source: patient, family Mode of arrival: wheelchair Limitations: no limitations - History of Present Illness Initial Comments: Shouldn't is 73-year-old man who has history of COPD and has been having flareup of symptoms going back about over a week. Tonight he was going to get up to use the bathroom and he had an episode where his breathing became very rapid and he seemed to be staring off. The patient's stated that this lasted for perhaps a couple of minutes and then he called and he was responsive. He stated after that that he was very short of breath and to go to the hospital. Recent history has included going to see his probation counselor and his clinic doctor. He had his daily steroid dose increased and he had a course of antibiotic prescribed which she is still taking. Patient has not noted fever or chills. He is having dyspnea and productive cough. No chest pain. No leg pain or swelling. MD Complaint: shortness of breath, cough -: hour(s) Severity: moderate Consistency: constant Improves With: oxygen, bronchodilators Worsens With: exertion Known History Of: COPD Associated Symptoms: cough, sputum production - Related Data Home Oxygen Therapy: Yes Home Oxygen Amount: 2 Liters Home Medications Medication Instructions Recorded Confirmed Ipratropium-Albuterol Nebulize 3 ml INHALATION RT-QID PRN 07/30/21 01/24/23 [Duoneb 0.5 mg-3 mg/3 ml Soln] Albuterol Sulfate [Albuterol 1 - 2 puff INHALATION RT-Q6H PRN 10/21/22 01/24/23 Sulfate Hfa] Apixaban [Eliquis] 5 mg PO BID 10/21/22 01/24/23 Theophylline 12 Hour [Robe-Dur] 300 mg PO DAILY 12/15/22 01/24/23 Furosemide [Lasix] 20 mg PO DAILY 01/24/23 01/24/23 Previous Rx's Medication Instructions Recorded Atorvastatin [Lipitor] 80 mg PO HS #90 tab 10/23/22 LORazepam [Ativan] 0.5 mg PO TID PRN 3 Days #9 tab 12/22/22 Acetaminophen Tab [Tylenol] 650 mg PO Q6HR PRN tab 01/03/23 Budesonide-Formot 160-4.5 Mcg 2 puff INHALATION RT-BID #1 each 01/03/23 [Symbicort 160-4.5 Mcg Inhaler] Pantoprazole [Protonix] 40 mg PO AC-BRKFST #15 tab 01/03/23 Metoprolol Succinate (ER) [Toprol 25 mg PO DAILY 30 Days #30 tab 01/28/23 XL] Allergies Allergy/AdvReac Type Severity Reaction Status Date / Time morphine Allergy Intermediate Nausea & Verified 04/07/23 03:48 Vomiting Review of Systems ROS Statement: Those systems with pertinent positive or pertinent negative responses have been documented in the HPI. ROS Other: All systems not noted in ROS Statement are negative. Constitutional: Denies: fever, chills Respiratory: Reports: cough, dyspnea, wheezes. Denies: hemoptysis Cardiovascular: Denies: chest pain, palpitations, orthopnea, edema, syncope Gastrointestinal: Denies: abdominal pain, nausea, vomiting, diarrhea, constipation Genitourinary: Denies: dysuria, hematuria Musculoskeletal: Denies: back pain Skin: Denies: rash Neurological: Denies: headache, weakness, numbness Past Medical History Past Medical History: Atrial Fibrillation, Cancer, COPD, GERD/Reflux, Pulmonary Embolus (PE) Additional Past Medical History / Comment(s): positional upper abdominal pain stated when he changes position from laying to sitting and standing. Prostate cancer, pt states he has not undergone any tx for ca. History of Any Multi-Drug Resistant Organisms: None Reported Past Surgical History: Bowel Resection, Orthopedic Surgery, Tonsillectomy Additional Past Surgical History / Comment(s): Right shoulder arthroscopy. Colonoscopy. EGD, colostomy Past Anesthesia/Blood Transfusion Reactions: No Reported Reaction Additional Past Anesthesia/Blood Transfusion Reaction / Comment(s): Pt has CLAUSTROPHOBIA Past Psychological History: No Psychological Hx Reported Smoking Status: Former smoker Past Alcohol Use History: None Reported Past Drug Use History: None Reported - Past Family History Father Family Medical History: Cancer Mother Family Medical History: Cancer Additional Family Medical History / Comment(s): Mother in her 50s with some form of cancer. Pt/spouse do not recall type of cancer. General Exam Limitations: no limitations General appearance: alert, in no apparent distress Head exam: Present: atraumatic, normocephalic Eye exam: Present: normal appearance. Absent: scleral icterus, conjunctival injection Neck exam: Present: normal inspection Respiratory exam: Present: normal lung sounds bilaterally, wheezes, rhonchi. Absent: respiratory distress, rales, stridor Cardiovascular Exam: Present: regular rate, normal rhythm, normal heart sounds. Absent: systolic murmur, diastolic murmur, rubs, gallop GI/Abdominal exam: Present: soft, other (Colostomy left lower quadrant). Absent: distended, tenderness, guarding, rebound, rigid, mass Extremities exam: Present: normal inspection, normal capillary refill. Absent: pedal edema, calf tenderness Back exam: Present: normal inspection. Absent: CVA tenderness (R), CVA tenderness (L) Neurological exam: Present: alert Skin exam: Present: warm, dry, intact, normal color. Absent: rash Course Vital Signs 04/07/23 04/07/23 04/07/23 03:46 05:39 06:04 Temperature 98.5 F Pulse Rate 100 72 Respiratory 20 26 H Rate Blood Pressure 164/96 O2 Sat by Pulse 95 Oximetry 04/07/23 04/07/23 06:11 06:14 Temperature Pulse Rate 84 76 Respiratory 17 Rate Blood Pressure 126/99 O2 Sat by Pulse 100 Oximetry Medical Decision Making - Lab Data Result diagrams: 04/07/23 04:36 04/07/23 04:36 Lab Results 04/07/23 04/07/23 04/07/23 Range/Units 04:36 04:36 04:36 WBC 8.5 (3.8-10.6) k/uL RBC 4.56 (4.30-5.90) m/uL Hgb 13.8 (13.0-17.5) gm/dL Hct 42.7 (39.0-53.0) % MCV 93.6 (80.0-100.0) fL MCH 30.4 (25.0-35.0) pg MCHC 32.4 (31.0-37.0) g/dL RDW 13.6 (11.5-15.5) % Plt Count 239 (150-450) k/uL MPV 8.0 Neutrophils % 80 % Lymphocytes % 13 % Monocytes % 6 % Eosinophils % 1 % Basophils % 0 % Neutrophils # 6.8 (1.3-7.7) k/uL Lymphocytes # 1.1 (1.0-4.8) k/uL Monocytes # 0.5 (0-1.0) k/uL Eosinophils # 0.1 (0-0.7) k/uL Basophils # 0.0 (0-0.2) k/uL Sodium 141 (137-145) mmol/L Potassium 5.2 H (3.5-5.1) mmol/L Chloride 109 H (98-107) mmol/L Carbon Dioxide 25 (22-30) mmol/L Anion Gap 7 mmol/L BUN 35 H (9-20) mg/dL Creatinine 1.21 (0.66-1.25) mg/dL Est GFR (CKD-EPI)AfAm 69 (>60 ml/min/1.73 sqM) Est GFR (CKD-EPI)NonAf 59 (>60 ml/min/1.73 sqM) Glucose 99 (74-99) mg/dL Plasma Lactic Acid Luciano 1.6 (0.7-2.0) mmol/L Calcium 9.4 (8.4-10.2) mg/dL Total Bilirubin 0.6 (0.2-1.3) mg/dL AST 36 (17-59) U/L ALT 30 (4-49) U/L Alkaline Phosphatase 46 (38-126) U/L Troponin I (0.000-0.034) ng/mL NT-Pro-B Natriuret Pep 305 pg/mL Total Protein 6.8 (6.3-8.2) g/dL Albumin 4.0 (3.5-5.0) g/dL Influenza Type A (PCR) (Not Detectd) Influenza Type B (PCR) (Not Detectd) RSV (PCR) (Not Detectd) SARS-CoV-2 (PCR) (Not Detectd) 04/07/23 04/07/23 Range/Units 04:36 04:36 WBC (3.8-10.6) k/uL RBC (4.30-5.90) m/uL Hgb (13.0-17.5) gm/dL Hct (39.0-53.0) % MCV (80.0-100.0) fL MCH (25.0-35.0) pg MCHC (31.0-37.0) g/dL RDW (11.5-15.5) % Plt Count (150-450) k/uL MPV Neutrophils % % Lymphocytes % % Monocytes % % Eosinophils % % Basophils % % Neutrophils # (1.3-7.7) k/uL Lymphocytes # (1.0-4.8) k/uL Monocytes # (0-1.0) k/uL Eosinophils # (0-0.7) k/uL Basophils # (0-0.2) k/uL Sodium (137-145) mmol/L Potassium (3.5-5.1) mmol/L Chloride (98-107) mmol/L Carbon Dioxide (22-30) mmol/L Anion Gap mmol/L BUN (9-20) mg/dL Creatinine (0.66-1.25) mg/dL Est GFR (CKD-EPI)AfAm (>60 ml/min/1.73 sqM) Est GFR (CKD-EPI)NonAf (>60 ml/min/1.73 sqM) Glucose (74-99) mg/dL Plasma Lactic Acid Luciano (0.7-2.0) mmol/L Calcium (8.4-10.2) mg/dL Total Bilirubin (0.2-1.3) mg/dL AST (17-59) U/L ALT (4-49) U/L Alkaline Phosphatase (38-126) U/L Troponin I <0.012 (0.000-0.034) ng/mL NT-Pro-B Natriuret Pep pg/mL Total Protein (6.3-8.2) g/dL Albumin (3.5-5.0) g/dL Influenza Type A (PCR) Not Detected (Not Detectd) Influenza Type B (PCR) Not Detected (Not Detectd) RSV (PCR) Not Detected (Not Detectd) SARS-CoV-2 (PCR) Not Detected (Not Detectd) - EKG Data -: EKG Interpreted by Me EKG shows normal: sinus rhythm, axis (Normal), intervals (Normal), QRS complexes (Normal), ST-T waves (Normal) Rate: normal (Rate 63 bpm) Disposition Clinical Impression: COPD exacerbation Disposition: ADMITTED IP TO THIS [facility] Condition: Good
[2023-04-07 04:46] LABS: Basophils % (A) 0 %; Eosinophils # (A) 0.1 k/uL (0-0.7); Eosinophils % (A) 1 %; HCT 42.7 % (39.0-53.0); HGB 13.8 gm/dL (13.0-17.5); Lymphocytes # (A) 1.1 k/uL (1.0-4.8); Lymphocytes % (A) 13 %; MCH 30.4 pg (25.0-35.0); MCHC 32.4 g/dL (31.0-37.0); MCV 93.6 fL (80.0-100.0); Monocytes # (A) 0.5 k/uL (0-1.0); Monocytes % (A) 6 %; Neutrophils # (A) 6.8 k/uL (1.3-7.7); Neutrophils % (A) 80 %; Platelet Count 239 k/uL (150-450); RBC 4.56 m/uL (4.30-5.90); RDW 13.6 % (11.5-15.5); WBC 8.5 k/uL (3.8-10.6)
[2023-04-07 04:52] LABS: Chloride 109 mmol/L (98-107)
[2023-04-07 04:55] LABS: ALT 30 U/L (4-49); AST 36 U/L (17-59); African American GFR (CKD) 69 (>60 ml/min/1.73 sqM); Alkaline Phosphatase 46 U/L (38-126); Anion Gap 7 mmol/L; Blood Urea Nitrogen 35 mg/dL (9-20); Calcium 9.4 mg/dL (8.4-10.2); Carbon Dioxide 25 mmol/L (22-30); Glucose 99 mg/dL (74-99); Non-African American GFR(CKD) 59 (>60 ml/min/1.73 sqM); Sodium 141 mmol/L (137-145); Total Bilirubin 0.6 mg/dL (0.2-1.3); Total Protein 6.8 g/dL (6.3-8.2)
[2023-04-07 05:01] LABS: Potassium 5.2 mmol/L (3.5-5.1)
[2023-04-07 05:03] LABS: NT-Pro-B-Type Natriuretic Pept 305 pg/mL
[2023-04-07] MEDS ORDERED: ALBUTEROL NEBULIZED 2.5 MG/3 ML INHALATION STA (05:53)
[2023-04-07] MEDS ORDERED: IPRATROPIUM-ALBUTEROL 3 ML NEB INHALATION STA (05:53)
[2023-04-07] MEDS ORDERED: predniSONE 20 MG TAB PO STA (05:53)
--- NOTE | 2023-04-07 06:17 | XR ---
EXAMINATION TYPE: XR chest 2V DATE OF EXAM: 04/07/2023 COMPARISON: Chest x-ray January 26, 2023 HISTORY: Difficulty in breathing TECHNIQUE: Frontal and lateral views of the chest are obtained. FINDINGS: Background chronic emphysematous change is redemonstrated. Increased central markings on c urrent study. The cardiac silhouette size is stable and within normal limits. New overlying loop rec order. The osseous structures are intact. IMPRESSION: Chronic emphysematous change with new central vascular congestion. Correlate for fluid o verload state.
[2023-04-07] MEDS ORDERED: NALOXONE 0.4 MG/ML 1 ML VIAL IVP PRN (06:50)
[2023-04-07] MEDS ORDERED: IPRATROPIUM-ALBUTEROL 3 ML NEB INHALATION PRN (06:50)
[2023-04-07] MEDS ORDERED: ACETAMINOPHEN TAB 325 MG TAB PO PRN (06:51)
[2023-04-07] MEDS ORDERED: LORazepam 0.5 MG TAB PO PRN (06:51)
[2023-04-07 07:11] LABS: INR 0.9 (<1.2); Prothrombin Time 9.8 sec (10.0-12.5)
[2023-04-07 07:15] LABS: Partial Thromboplastin Time 19.9 sec (22.0-30.0)
[2023-04-07] MEDS: IPRATROPIUM-ALBUTEROL 3 ML NEB INHALATION SCH ×4 (07:44→20:35)
[2023-04-07] MEDS: SYMBICORT 160-4.5 MCG INHALER INHALATION SCH ×2 (07:55→20:35)
[2023-04-07] MEDS: PANTOPRAZOLE 40 MG TABLET PO SCH (08:22)
[2023-04-07] MEDS: METOPROLOL SUCCINATE (ER) 25 MG TAB.ER.24H PO SCH (10:23)
[2023-04-07] MEDS: APIXABAN 5 MG TAB PO SCH ×2 (10:23→20:53)
[2023-04-07] MEDS: FUROSEMIDE 20 MG TAB PO SCH (10:23)
[2023-04-07] MEDS: DOXYCYCLINE 100 MG CAP PO SCH ×2 (10:23→20:53)
[2023-04-07] MEDS: THEOPHYLLINE 24 HOUR 300 MG CAP.ER.24H PO SCH (10:24)
[2023-04-07 10:33] LABS: African American GFR (CKD) 67 (>60 ml/min/1.73 sqM); Anion Gap 5 mmol/L; Blood Urea Nitrogen 31 mg/dL (9-20); Calcium 9.3 mg/dL (8.4-10.2); Carbon Dioxide 30 mmol/L (22-30); Chloride 106 mmol/L (98-107); Glucose 116 mg/dL (74-99); Non-African American GFR(CKD) 58 (>60 ml/min/1.73 sqM); Potassium 4.3 mmol/L (3.5-5.1); Sodium 141 mmol/L (137-145)
--- NOTE | 2023-04-07 12:52 | P.HPIM ---
History of Present Illness H&P Date: 04/07/23 73-year-old male with a past medical history of pulmonary emboli on anticoagulation with Eliquis, COPD with chronic hypoxic respiratory failure on 2 L NC, perforated diverticulitis status post colostomy, and hyperlipidemia. He presents the ED for worsening shortness of breath over the past week. He reports cough productive of clear and yellow sputum. This morning, he was walking back from the bathroom to his bed when he had an episode of unresponsiveness. His is able to recognize his symptoms and bring him down to the floor. Loss of consciousness lasted for about a couple of minutes. also noted shallow breathing during this episode. Denied any bladder or bowel incontinence, shaking of extremities. He continues to have recurrent syncopal episodes for which he was previously hospitalized back in January. Previous concerns for NSVT and arrhythmia. He currently has a loop recorder placed by Cardiology. Total of 5 episodes since December. reports this usually happens when he is changing position from sitting/laying to standing. In the ED he underwent extensive evaluation. BP 164/96, HR 100, RR 26, O2 saturation 95% on 3 L nasal cannula. CBC unremarkable. Coagulation panel PT 9.8, APTT 19.9. D-dimer 0.33. CMP potassium 5.2, chloride 109, BUN 21. Lactic acid 1.6. Troponin less than 0.012. BNP 305. COVID-19, RSV, influenza negative. EKG sinus rhythm. Chest x-ray chronic emphysematous changes with no obvious infiltrate when compared to previous CXRs. Patient is admitted for further management and workup. General: non toxic, no distress, appears at stated age Derm: warm, dry Head: atraumatic, normocephalic, symmetric Eyes: EOMI, no lid lag, anicteric sclera Mouth: no lip lesion, mucus membranes moist Cardiovascular: S1S2 reg, no murmur Lungs: Decreased breath sounds bilateral, no rhonchi, no rales , no accessory muscle use Abdominal: soft, nontender to palpation, no guarding, no appreciable organomegaly. Colostomy in place. Ext: no gross muscle atrophy, 1+ bilateral lower extremity pitting edema, no contractures Neuro: no focal neuro deficits Psych: Alert, oriented, appropriate affect Based on my assessment of this patient, this patient meets a high complexity level of care. Patient has an acute diagnosis of COPD exacerbation with syncopal episode that poses a threat to life or bodily function. Recurrent syncopal episode: Unclear etiology. Echo 01/2023 EF 55-60%. Cardiology consulted as patient currently has a loop recorder. Orthostats ordered. EEG. Trend Troponin to rule out ACS. Telemetry monitoring. Acute on chronic COPD exacerbation: DuoNeb QID scheduled and PRN for SOB/wheezing. Restart Symbicort 2 INH BID. Prednisone 40 mg PO QD. Theophylline 300 mg PO QD. Obtain Pro-watson and DC Doxycycline if negative. Pulmonary consulted. Chronic respiratory failure Hyperkalemia: Hemolyzed. Prerenal azotemia: Start NS at 75 cc/hr. CODE STATUS: FULL CODE. DVT Prophylaxis: Eliquis GI Prophylaxis: Protonix Designated medical POA if patient is not able to make medical decisions for themselves: I have reviewed the following mining consultant notes: I have reviewed the results of the following tests: As above. I have ordered the following tests: As above. I have discussed the care of this patient with the following independent histo sean: at bedside. I have independently interpreted the following test below: CXR as above. I have discussed the management of this patient with the following physician: Past Medical History Past Medical History: Atrial Fibrillation, Cancer, COPD, GERD/Reflux, Pulmonary Embolus (PE) Additional Past Medical History / Comment(s): positional upper abdominal pain stated when he changes position from laying to sitting and standing. Prostate cancer, pt states he has not undergone any tx for ca. History of Any Multi-Drug Resistant Organisms: None Reported Past Surgical History: Bowel Resection, Orthopedic Surgery, Tonsillectomy Additional Past Surgical History / Comment(s): Right shoulder arthroscopy. Colonoscopy. EGD, colostomy Past Anesthesia/Blood Transfusion Reactions: No Reported Reaction Additional Past Anesthesia/Blood Transfusion Reaction / Comment(s): Pt has CLAUSTROPHOBIA Past Psychological History: No Psychological Hx Reported Smoking Status: Former smoker Past Alcohol Use History: None Reported Past Drug Use History: None Reported - Past Family History Father Family Medical History: Cancer Mother Family Medical History: Cancer Additional Family Medical History / Comment(s): Mother in her 50s with some form of cancer. Pt/spouse do not recall type of cancer. Medications and Allergies Home Medications Medication Instructions Recorded Confirmed Type Ipratropium-Albuterol Nebulize 3 ml INHALATION RT-QID PRN 07/30/21 04/07/23 History [Duoneb 0.5 mg-3 mg/3 ml Soln] Albuterol Sulfate [Albuterol 1 - 2 puff INHALATION RT-Q6H PRN 10/21/22 04/07/23 History Sulfate Hfa] Apixaban [Eliquis] 5 mg PO BID 10/21/22 04/07/23 History Theophylline 12 Hour [Robe-Dur] 300 mg PO DAILY 12/15/22 04/07/23 History Acetaminophen Tab [Tylenol] 650 mg PO Q6HR PRN tab 01/03/23 04/07/23 Rx Budesonide-Formot 160-4.5 Mcg 2 puff INHALATION RT-BID #1 each 01/03/23 04/07/23 Rx [Symbicort 160-4.5 Mcg Inhaler] Furosemide [Lasix] 20 mg PO DAILY 01/24/23 04/07/23 History Metoprolol Succinate (ER) [Toprol 25 mg PO DAILY 30 Days #30 tab 01/28/23 04/07/23 Rx XL] Isosorbide Mononitrate ER [Imdur] 30 mg PO DAILY 04/07/23 04/07/23 History LORazepam [Ativan] 0.5 - 1 mg PO DAILY PRN 04/07/23 04/07/23 History levoFLOXacin 500 mg PO DAILY 04/07/23 04/07/23 History predniSONE See Taper PO DAILY 04/07/23 04/07/23 History Allergies Allergy/AdvReac Type Severity Reaction Status Date / Time morphine AdvReac Intermediate Nausea & Verified 04/07/23 07:30 Vomiting Physical Exam Vitals: Vital Signs Temp Pulse Resp BP Pulse Ox 04/07/23 12:00 68 04/07/23 11:52 64 18 04/07/23 06:14 76 04/07/23 06:11 84 17 126/99 100 04/07/23 06:04 72 04/07/23 05:39 26 H 04/07/23 03:46 98.5 F 100 20 164/96 95 Intake and Output 04/06/23 04/07/23 04/07/23 22:59 06:59 14:59 Other: Weight 66.224 kg Results CBC & Chem 7: 04/07/23 04:36 04/07/23 09:13 Labs: Abnormal Lab Results - Last 24 Hours (Table) 04/07/23 04/07/23 04/07/23 Range/Units 04:36 06:32 09:13 PT 9.8 L (10.0-12.5) sec APTT 19.9 L (22.0-30.0) sec Potassium 5.2 H (3.5-5.1) mmol/L Chloride 109 H (98-107) mmol/L BUN 35 H 31 H (9-20) mg/dL Glucose 116 H (74-99) mg/dL
[2023-04-07] MEDS: SODIUM CHLORIDE 0.9% 1,000 ML IV SCH (14:18)
[2023-04-07] MEDS: ACETAMINOPHEN TAB 325 MG TAB PO PRN ×2 (18:52→23:20)
--- NOTE | 2023-04-07 18:57 | P.CNPUL ---
History of Present Illness Consult date: 04/07/23 Reason for consult: dyspnea, COPD History of present illness: 73-year-old male patient is very well-known to me. The patient has advanced COPD and his FEV1 is in order of 25% of predicted and auction dependent at 3 L/m nasal cannula. He also has history of pulmonary embolism maintain on anticoagulation with Eliquis. He has previous history of perforated diverticulitis and he has a colostomy in place and he has hyperlipidemia. He also has had issues with recurrent syncopal episodes. Currently is a loop recorder in place. His previous echocardiogram showed a preserved LV function and the patient has no evidence of any LV dysfunction and he has an ejection fraction of 55-60% without any significant valvular abnormalities. His last hospitalization was in January 2023 and at that time and treat this patient for an acute exacerbation. He comes in with worsening shortness of breath. He has cough and congestion and wheezing. His chest x-ray was consistent with COPD there was no evidence of any acute abnormalities. Hemodynamically stable. No pleurisy. No hemoptysis. No chest pain. Based on his labs, the white cell count of 8.5, hemoglobin is at 13.8 and a platelet count is at 239. BUN is at 31 with a creatinine of 1.2. Troponins are negative. The sodium is at 141, troponins are negative and the pro calcitonin level is at 0.07 and a viral panel was negative. His EKG was reviewed and showed sinus rhythm. No acute ST segment elevation or depression. In terms of his COPD, is maintained on Symbicort on outpatient basis. Currently is on a combination of bronchodilators and steroids. He was placed also on doxycycline. He takes theophylline and he is on prednisone 40 mg by mouth daily as part of the burst taper. Review of Systems Constitutional: Reports fatigue, Reports weakness, Reports weight loss Eyes: denies as per HPI, denies blurred vision, denies bulging eye, denies decreased vision, denies diplopia, denies discharge, denies dry eye, denies irritation, denies itching, denies pain, denies photophobia, denies loss of peripheral vision, denies loss of vision, denies tunnel vision/blind spots Ears: deny: decreased hearing, ear discharge, earache, tinnitus Ears, nose, mouth and throat: Reports as per HPI Breasts: absent: as per HPI, gynecomastia Cardiovascular: Reports decreased exercise tolerance, Reports dyspnea on exertion, Reports shortness of breath Respiratory: Reports dyspnea, Reports excessive sputum, Reports home oxygen, Reports wheezing Gastrointestinal: Reports as per HPI (Patient is a colostomy), Reports constipation Genitourinary: Reports as per HPI Musculoskeletal: Reports as per HPI, Reports muscle weakness Musculoskeletal: absent: ankle pain, ankle stiffness, ankle swelling Integumentary: Reports as per HPI Neurological: Reports as per HPI, Reports weakness Psychiatric: Reports as per HPI Endocrine: Reports as per HPI, Reports fatigue Hematologic/Lymphatic: Reports as per HPI Allergic/Immunologic: Reports as per HPI Past Medical History Past Medical History: Atrial Fibrillation, Cancer, COPD, GERD/Reflux, Pulmonary Embolus (PE) Additional Past Medical History / Comment(s): positional upper abdominal pain stated when he changes position from laying to sitting and standing. Prostate cancer, pt states he has not undergone any tx for ca. History of Any Multi-Drug Resistant Organisms: None Reported Past Surgical History: Bowel Resection, Orthopedic Surgery, Tonsillectomy Additional Past Surgical History / Comment(s): Right shoulder arthroscopy. Colonoscopy. EGD, colostomy Past Anesthesia/Blood Transfusion Reactions: No Reported Reaction Additional Past Anesthesia/Blood Transfusion Reaction / Comment(s): Pt has CLAUSTROPHOBIA Past Psychological History: No Psychological Hx Reported Additional Psychological History / Comment(s): . Smoking Status: Former smoker Past Alcohol Use History: None Reported Additional Past Alcohol Use History / Comment(s): Pt started smokig in 1967, QUIT JULY 2020. Pt quit drinking 20 years ago. Past Drug Use History: None Reported - Past Family History Father Family Medical History: Cancer Mother Family Medical History: Cancer Additional Family Medical History / Comment(s): Mother in her 50s with some form of cancer. Pt/spouse do not recall type of cancer. Medications and Allergies Home Medications Medication Instructions Recorded Confirmed Type Ipratropium-Albuterol Nebulize 3 ml INHALATION RT-QID PRN 07/30/21 04/07/23 History [Duoneb 0.5 mg-3 mg/3 ml Soln] Albuterol Sulfate [Albuterol 1 - 2 puff INHALATION RT-Q6H PRN 10/21/22 04/07/23 History Sulfate Hfa] Apixaban [Eliquis] 5 mg PO BID 10/21/22 04/07/23 History Theophylline 12 Hour [Robe-Dur] 300 mg PO DAILY 12/15/22 04/07/23 History Acetaminophen Tab [Tylenol] 650 mg PO Q6HR PRN tab 01/03/23 04/07/23 Rx Budesonide-Formot 160-4.5 Mcg 2 puff INHALATION RT-BID #1 each 01/03/23 04/07/23 Rx [Symbicort 160-4.5 Mcg Inhaler] Furosemide [Lasix] 20 mg PO DAILY 01/24/23 04/07/23 History Metoprolol Succinate (ER) [Toprol 25 mg PO DAILY 30 Days #30 tab 01/28/23 04/07/23 Rx XL] Isosorbide Mononitrate ER [Imdur] 30 mg PO DAILY 04/07/23 04/07/23 History LORazepam [Ativan] 0.5 - 1 mg PO DAILY PRN 04/07/23 04/07/23 History levoFLOXacin 500 mg PO DAILY 04/07/23 04/07/23 History predniSONE See Taper PO DAILY 04/07/23 04/07/23 History Allergies Allergy/AdvReac Type Severity Reaction Status Date / Time morphine AdvReac Intermediate Nausea & Verified 04/07/23 07:30 Vomiting Physical Exam Vitals: Vital Signs Temp Pulse Pulse Resp BP BP Pulse Ox 04/07/23 16:33 68 04/07/23 16:25 71 04/07/23 14:34 76 17 144/83 99 04/07/23 14:07 97.8 F 85 18 130/72 100 04/07/23 12:00 68 04/07/23 11:52 64 18 04/07/23 06:14 76 04/07/23 06:11 84 17 126/99 100 04/07/23 06:04 72 04/07/23 05:39 26 H 04/07/23 03:46 98.5 F 100 20 164/96 95 Intake and Output 04/07/23 04/07/23 04/07/23 06:59 14:59 22:59 Intake Total 118 Balance 118 Intake: Oral 118 Other: Weight 66.224 kg 66.224 kg HEAD: Normocephalic. EYES: Normal reaction of pupils, equal size. NOSE: Clear with pink turbinates. THROAT: No erythema or exudates. NECK: No masses, no JVD. CHEST: No chest wall deformity. LUNGS: Equal air entry with bilateral end expiratory wheeze, diminished. CVS: S1 and S2 normal with no audible murmur, regular rhythm. The patient is a component of sinus tachycardia ABDOMEN: Postsurgical changes. Ostomy intact. Functioning with adequate stool. The patient has some positive bowel sounds . No abdominal tenderness around the stoma. No rebound tenderness. No guarding. SPINE: No scoliosis or deformity SKIN: No rashes CENTRAL NERVOUS SYSTEM: No focal deficits, tone is normal in all 4 extremities. EXTREMITIES: There is no peripheral edema. No clubbing, no cyanosis. Peripheral pulses are intact. Results - Laboratory Findings CBC and BMP: 04/07/23 04:36 04/07/23 09:13 ABG WBC 8.5 k/uL (3.8-10.6) 04/07/23 04:36 RBC 4.56 m/uL (4.30-5.90) 04/07/23 04:36 Hgb 13.8 gm/dL (13.0-17.5) 04/07/23 04:36 Hct 42.7 % (39.0-53.0) 04/07/23 04:36 MCV 93.6 fL (80.0-100.0) 04/07/23 04:36 MCH 30.4 pg (25.0-35.0) 04/07/23 04:36 MCHC 32.4 g/dL (31.0-37.0) 04/07/23 04:36 RDW 13.6 % (11.5-15.5) 04/07/23 04:36 Plt Count 239 k/uL (150-450) 04/07/23 04:36 MPV 8.0 04/07/23 04:36 Neutrophils % 80 % 04/07/23 04:36 Lymphocytes % 13 % 04/07/23 04:36 Monocytes % 6 % 04/07/23 04:36 Eosinophils % 1 % 04/07/23 04:36 Basophils % 0 % 04/07/23 04:36 Neutrophils # 6.8 k/uL (1.3-7.7) 04/07/23 04:36 Lymphocytes # 1.1 k/uL (1.0-4.8) 04/07/23 04:36 Monocytes # 0.5 k/uL (0-1.0) 04/07/23 04:36 Eosinophils # 0.1 k/uL (0-0.7) 04/07/23 04:36 Basophils # 0.0 k/uL (0-0.2) 04/07/23 04:36 PT 9.8 sec (10.0-12.5) L 04/07/23 06:32 INR 0.9 (<1.2) 04/07/23 06:32 APTT 19.9 sec (22.0-30.0) L 04/07/23 06:32 D-Dimer 0.33 mg/L FEU (<0.60) 04/07/23 06:32 Sodium 141 mmol/L (137-145) 04/07/23 09:13 Potassium 4.3 mmol/L (3.5-5.1) 04/07/23 09:13 Chloride 106 mmol/L (98-107) 04/07/23 09:13 Carbon Dioxide 30 mmol/L (22-30) 04/07/23 09:13 Anion Gap 5 mmol/L 04/07/23 09:13 BUN 31 mg/dL (9-20) H 04/07/23 09:13 Creatinine 1.24 mg/dL (0.66-1.25) 04/07/23 09:13 Est GFR (CKD-EPI)AfAm 67 (>60 ml/min/1.73 sqM) 04/07/23 09:13 Est GFR (CKD-EPI)NonAf 58 (>60 ml/min/1.73 sqM) 04/07/23 09:13 Glucose 116 mg/dL (74-99) H 04/07/23 09:13 Plasma Lactic Acid Luciano 1.6 mmol/L (0.7-2.0) 04/07/23 04:36 Calcium 9.3 mg/dL (8.4-10.2) 04/07/23 09:13 Total Bilirubin 0.6 mg/dL (0.2-1.3) 04/07/23 04:36 AST 36 U/L (17-59) 04/07/23 04:36 ALT 30 U/L (4-49) 04/07/23 04:36 Alkaline Phosphatase 46 U/L (38-126) 04/07/23 04:36 Troponin I <0.012 ng/mL (0.000-0.034) 04/07/23 12:51 NT-Pro-B Natriuret Pep 305 pg/mL 04/07/23 04:36 Total Protein 6.8 g/dL (6.3-8.2) 04/07/23 04:36 Albumin 4.0 g/dL (3.5-5.0) 04/07/23 04:36 Procalcitonin 0.07 ng/mL (0.02-0.09) 04/07/23 09:13 Influenza Type A (PCR) Not Detected (Not Detectd) 04/07/23 04:36 Influenza Type B (PCR) Not Detected (Not Detectd) 04/07/23 04:36 RSV (PCR) Not Detected (Not Detectd) 04/07/23 04:36 SARS-CoV-2 (PCR) Not Detected (Not Detectd) 04/07/23 04:36 PT/INR, D-dimer PT 9.8 sec (10.0-12.5) L 04/07/23 06:32 INR 0.9 (<1.2) 04/07/23 06:32 D-Dimer 0.33 mg/L FEU (<0.60) 04/07/23 06:32 Abnormal lab findings: Abnormal Labs 04/07/23 04/07/23 04/07/23 04:36 06:32 09:13 PT 9.8 L APTT 19.9 L Potassium 5.2 H Chloride 109 H BUN 35 H 31 H Glucose 116 H - Diagnostic Findings Chest x-ray: image reviewed Assessment and Plan Plan: acute COPD exacerbation, failed outpatient therapy and the patient was completing course of Levaquin on outpatient basis. Currently is hospitalized for an acute choked exacerbation. No clear indication for pneumonia and the pro calcitonin level is low. Nontender worsening in his oxygenation. Advanced COPD with an FEV1 of 26% of predicted maintain on oxygen and steroids, the patient has chronic hypoxic respiratory failure without signs of any chronic hypercapnic respiratory failure. History of recurrent syncope and the patient was given a loop recorder for cardiac monitoring history of acute bilateral pulmonary embolism, on Eliquis chronic hypoxic respiratory failure currently on 3 L of oxygen by nasal cannula History of acute perforated diverticulitis with abscess formation, status post sigmoid colectomy and end colostomy that was done on 08/02/2022. History of high-grade distal small bowel obstruction, recovered Prostate cancer Acid reflux Hiatal hernia. plan Continue bronchodilators with DuoNeb updrafts. Continue Symbicort Prednisone 40 mg by mouth daily Spiriva burst taper Agree on doxycycline Resume all medications Chest x-ray is negative for pneumonia Pro calcitonin level is nonelevated and the d-dimer is low We'll continue to follow
[2023-04-07] MEDS: ATORVASTATIN 80 MG TAB PO SCH (20:53)
--- NOTE | 2023-04-08 00:44 | EEG ---
ELECTROENCEPHALOGRAM REPORT CLINICAL HISTORY: This is a 73-year-old gentleman with episode. The video EEG is obtained to evaluate for seizure epileptiform activity. RELEVANT MEDICATION: Per ultrasound technician report. The patient is on Ativan. EEG TYPE: A routine 21-channel EEG with video using the 10/20 electrode placement system. DESCRIPTION: Wakefulness is obtained. During awake state, the posterior-dominant rhythm consists of [id number] voltage of 8.5 hertz activity that is well modulated, well sustained. There is no physiological stage 2 sleep architecture. There is no focal slowing. Interictal and ictal is none. ACTIVATION PROCEDURE: Photic stimulation did not evoke a posterior driving response. There is no abnormality during the photic stimulation. Hyperventilation is not performed. CLINICAL INTERPRETATION: This is a normal routine EEG. There is no focal slowing, epileptiform discharges or seizure on the EEG. A normal routine EEG does not rule out any underlying epilepsy. Clinical correlation is recommended. JUDY / GERTRUDEN: [id number] /
[2023-04-08] MEDS: SODIUM CHLORIDE 0.9% 1,000 ML IV SCH ×2 (02:32→16:11)
[2023-04-08] MEDS: PANTOPRAZOLE 40 MG TABLET PO SCH (06:06)
[2023-04-08] MEDS: SYMBICORT 160-4.5 MCG INHALER INHALATION SCH ×2 (08:01→20:38)
[2023-04-08] MEDS: IPRATROPIUM-ALBUTEROL 3 ML NEB INHALATION SCH ×4 (08:01→20:38)
[2023-04-08] MEDS: FUROSEMIDE 20 MG TAB PO SCH (10:06)
[2023-04-08] MEDS: predniSONE 20 MG TAB PO SCH (10:06)
[2023-04-08] MEDS: DOXYCYCLINE 100 MG CAP PO SCH ×2 (10:06→19:53)
[2023-04-08] MEDS: APIXABAN 5 MG TAB PO SCH ×2 (10:06→19:52)
[2023-04-08] MEDS: METOPROLOL SUCCINATE (ER) 25 MG TAB.ER.24H PO SCH (10:07)
[2023-04-08] MEDS: THEOPHYLLINE 24 HOUR 300 MG CAP.ER.24H PO SCH (10:07)
--- NOTE | 2023-04-08 11:24 | P.PN ---
Subjective Progress Note Date: 04/08/23 73-year-old male with a past medical history of pulmonary emboli on anticoagulation with Eliquis, COPD with chronic hypoxic respiratory failure on 2 L NC, perforated diverticulitis status post colostomy, and hyperlipidemia. He presents the ED for worsening shortness of breath over the past week. He reports cough productive of clear and yellow sputum. This morning, he was walking back from the bathroom to his bed when he had an episode of unresponsiveness. His is able to recognize his symptoms and bring him down to the floor. Loss of consciousness lasted for about a couple of minutes. also noted shallow breathing during this episode. Denied any bladder or bowel incontinence, shaking of extremities. He continues to have recurrent syncopal episodes for which he was previously hospitalized back in January. Previous concerns for NSVT and arrhythmia. He currently has a loop recorder placed by Cardiology. Total of 5 episodes since December. reports this usually happens when he is changing position from sitting/laying to standing. In the ED he underwent extensive evaluation. BP 164/96, HR 100, RR 26, O2 saturation 95% on 3 L nasal cannula. CBC unremarkable. Coagulation panel PT 9.8, APTT 19.9. D-dimer 0.33. CMP potassium 5.2, chloride 109, BUN 21. Lactic acid 1.6. Troponin less than 0.012. BNP 305. COVID-19, RSV, influenza negative. EKG sinus rhythm. Chest x-ray chronic emphysematous changes with no obvious infiltrate when compared to previous CXRs. 04/08 Patient was seen and examined. Continue SOB with little exertion. No dizziness or syncopal episodes. Troponin negative x 2, ACS ruled out. EEG negative. Orthostats were positive. Procal 0.07. General: non toxic, no distress, appears at stated age Derm: warm, dry Head: atraumatic, normocephalic, symmetric Eyes: EOMI, no lid lag, anicteric sclera Mouth: no lip lesion, mucus membranes moist Cardiovascular: S1S2 reg, no murmur Lungs: Decreased breath sounds bilateral, no rhonchi, no rales , no accessory muscle use Abdominal: soft, nontender to palpation, no guarding, no appreciable organomegaly. Colostomy in place. Ext: no gross muscle atrophy, 1+ bilateral lower extremity pitting edema, no contractures Neuro: no focal neuro deficits Psych: Alert, oriented, appropriate affect Based on my assessment of this patient, this patient meets a moderate complexity level of care. Patient has an acute diagnosis of COPD exacerbation with syncopal episode that poses a threat to life or bodily function. Recurrent syncopal episode: Unclear etiology. Echo 01/2023 EF 55-60%. Cardiology consulted as patient currently has a loop recorder. Orthostats +. EEG negative. ACS ruled out. Telemetry monitoring. Acute on chronic COPD exacerbation due to acute bronchitis: DuoNeb QID scheduled and PRN for SOB/wheezing. Restart Symbicort 2 INH BID. Prednisone 40 mg PO QD. Theophylline 300 mg PO QD. Doxycycline for acute bronchitis. Pulmonary on board. Chronic respiratory failure Prerenal azotemia: Start NS at 75 cc/hr. Resolved: HyperK CODE STATUS: FULL CODE. DVT Prophylaxis: Eliquis GI Prophylaxis: Protonix Designated medical POA if patient is not able to make medical decisions for themselves: I have reviewed the following websphere consultant notes: Pulmonary note. I have reviewed the results of the following tests: As above. I have ordered the following tests: I have discussed the care of this patient with the following independent historian: LISETH. I have independently interpreted the following test below: I have discussed the management of this patient with the following physician: Objective - Vital Signs Vital signs: Vital Signs Temp 98.6 F 04/08/23 07:00 Pulse 72 04/08/23 08:13 Resp 16 04/08/23 07:00 BP 138/71 04/08/23 07:00 Pulse Ox 96 04/08/23 08:02 FiO2 Intake & Output 04/07/23 04/08/23 04/08/23 18:59 06:59 18:59 Intake Total 118 Balance 118 Weight 66.224 kg Intake: Oral 118 Other: Voiding Method Toilet # Voids 2 - Labs CBC & Chem 7: 04/07/23 04:36 04/07/23 09:13
--- NOTE | 2023-04-08 13:20 | P.PN ---
Subjective Progress Note Date: 04/08/23 73-year-old male patient is very well-known to me. The patient has advanced COPD and his FEV1 is in order of 25% of predicted and auction dependent at 3 L/m nasal cannula. He also has history of pulmonary embolism maintain on anticoagulation with Eliquis. He has previous history of perforated divertic ulitis and he has a colostomy in place and he has hyperlipidemia. He also has had issues with recurrent syncopal episodes. Currently is a loop recorder in place. His previous echocardiogram showed a preserved LV function and the patient has no evidence of any LV dysfunction and he has an ejection fraction of 55-60% without any significant valvular abnormalities. His last hospitalization was in January 2023 and at that time and treat this patient for an acute exacerbation. He comes in with worsening shortness of breath. He has cough and congestion and wheezing. His chest x-ray was consistent with COPD there was no evidence of any acute abnormalities. Hemodynamically stable. No pleurisy. No hemoptysis. No chest pain. Based on his labs, the white cell count of 8.5, hemoglobin is at 13.8 and a platelet count is at 239. BUN is at 31 with a creatinine of 1.2. Troponins are negative. The sodium is at 141, troponins are negative and the pro calcitonin level is at 0.07 and a viral panel was negative. His EKG was reviewed and showed sinus rhythm. No acute ST segment elevation or depression. In terms of his COPD, is maintained on Symbicort on outpatient basis. Currently is on a combination of bronchodilators and steroids. He was placed also on doxycycline. He takes theophylline and he is on prednisone 40 mg by mouth daily as part of the burst taper. . On 04/08/2023, the patient is feeling better. Less short of breath compared to yesterday. No new complaints. He remains on broke about it since steroids and is also on a broad-spectrum antibiotic coverage with doxycycline. No chest pain. No hemoptysis. No pleurisy. No other new complaints Objective - Vital Signs Vital signs: Vital Signs Temp 98.6 F 04/08/23 07:00 Pulse 100 04/08/23 11:41 Resp 16 04/08/23 07:00 BP 138/71 04/08/23 07:00 Pulse Ox 96 04/08/23 08:02 FiO2 Intake & Output 04/07/23 04/08/23 04/08/23 18:59 06:59 18:59 Intake Total 118 Balance 118 Weight 66.224 kg Intake: Oral 118 Other: Voiding Method Toilet # Voids 2 - Exam HEAD: Normocephalic. EYES: Normal reaction of pupils, equal size. NOSE: Clear with pink turbinates. THROAT: No erythema or exudates. NECK: No masses, no JVD. CHEST: No chest wall deformity. LUNGS: Equal air entry with bilateral end expiratory wheeze, diminished. CVS: S1 and S2 normal with no audible murmur, regular rhythm. The patient is a component of sinus tachycardia ABDOMEN: Postsurgical changes. Ostomy intact. Functioning with adequate stool. The patient has some positive bowel sounds . No abdominal tenderness around the stoma. No rebound tenderness. No guarding. SPINE: No scoliosis or deformity SKIN: No rashes CENTRAL NERVOUS SYSTEM: No focal deficits, tone is normal in all 4 extremities. EXTREMITIES: There is no peripheral edema. No clubbing, no cyanosis. P eripheral pulses are intact. - Labs CBC & Chem 7: 04/07/23 04:36 04/07/23 09:13 Labs: Microbiology - Last 24 Hours (Table) 04/07/23 05:50 Blood Culture - Preliminary Blood 04/07/23 05:25 Blood Culture - Preliminary Blood Assessment and Plan Plan: acute COPD exacerbation, failed outpatient therapy and the patient was completing course of Levaquin on outpatient basis. Currently is hospitalized for an acute choked exacerbation. No clear indication for pneumonia and the pro calcitonin level is low. Nontender worsening in his oxygenation. Advanced COPD with an FEV1 of 26% of predicted maintain on oxygen and steroids, the patient has chronic hypoxic respiratory failure without signs of any chronic hypercapnic respiratory failure. History of recurrent syncope and the patient was given a loop recorder for cardiac monitoring history of acute bilateral pulmonary embolism, on Eliquis chronic hypoxic respiratory failure currently on 3 L of oxygen by nasal cannula History of acute perforated diverticulitis with abscess formation, status post sigmoid colectomy and end colostomy that was done on 08/02/2022. History of high-grade distal small bowel obstruction, recovered Prostate cancer Acid reflux Hiatal hernia. plan Clinically improving and we'll continue same treatment Continue bronchodilators with DuoNeb updrafts. Continue Symbicort Prednisone 40 mg by mouth daily Spiriva burst taper Agree on doxycycline Resume all medications Chest x-ray is negative for pneumonia Pro calcitonin level is nonelevated and the d-dimer is low We'll continue to follow
--- NOTE | 2023-04-08 18:00 | P.CRDCN ---
History of Present Illness Consult date: 04/08/23 History of present illness: HISTORY OF PRESENTING ILLNESS 73-year-old with advanced COPD with FEV1 of 25% chronic hypoxia 3 L oxygen, history of PE on anticoagulation. Her last to 3 months patient has had 8 episodes of passing out. On detailed history from patient and patient's they report, last night he was getting up from the bed to go to the bathroom and he kind of fainted and went to the floor slowly. Another instance vision described is making coughing the kitchen when he passed out and fell on the floor. He got a loop recorder placed recently which has not been interrogated it seems. Patient's previous echo cardiac exam showed preserved LV systolic function. Previous echoes quality was limited and they never evaluated RV function and pulmonary hypertension Patient's chest x-rays consistent with COPD with no acute abnormalities. BUN 31 and creatinine 1.2, troponins are negative, sodium 141, troponin is negative. Viral panel is negative. ECG shows sinus rhythm with no significant ST-T wave changes. REVIEW OF SYSTEMS 14 point review of system is negative except what is mentioned above in HPI. PHYSICAL EXAMINATION Vital signs reviewed. Head: Normocephalic. Eyes: Sclerae nonicteric. Neck: Brisk carotid upstroke, no jugular venous distention. Lungs: Mild wheezing in bilateral lung ramirez. Heart: Regular rate and rhythm, S1-S2, no S3, no murmur or rub. Abdomen: Soft nontender, positive bowel sounds no organomegaly. Extremities: No edema, intact distal pulses. Neuro: Alert, oritented, no focal deficits ASSESSMENT Syncopal episode Chronic hypoxia Advanced COPD [id number] COPD exacerbation History of PE on anticoagulation PLAN Attempt loop interrogation. If could not be performed, we'll perform as an outpatient. Obtain an outpatient echocardiogram with focused RV views to assess pulmonary hy pertension, as this could be the reason that patient is having recurrent syncope Patient's LVOT and LV systolic function are within normal limits Continue current cardiac and pulmonary medications without any changes COPD management as per pulmonary team Patient is cleared to be discharged from cardiac vessel standpoint with outpatient follow-up in next [address] Post Past Medical History Past Medical History: Atrial Fibrillation, Cancer, COPD, GERD/Reflux, Pulmonary Embolus (PE) Additional Past Medical History / Comment(s): positional upper abdominal pain stated when he changes position from laying to sitting and standing. Prostate cancer, pt states he has not undergone any tx for ca. History of Any Multi-Drug Resistant Organisms: None Reported Past Surgical History: Bowel Resection, Orthopedic Surgery, Tonsillectomy Additional Past Surgical History / Comment(s): Right shoulder arthroscopy. Colonoscopy. EGD, colostomy Past Anesthesia/Blood Transfusion Reactions: No Reported Reaction Additional Past Anesthesia/Blood Transfusion Reaction / Comment(s): Pt has CLAUSTROPHOBIA Past Psychological History: No Psychological Hx Reported Additional Psychological History / Comment(s): . Smoking Status: Former smoker Past Alcohol Use History: None Reported Additional Past Alcohol Use History / Comment(s): Pt started smokig in 1967, QUIT JULY 2020. Pt quit drinking 20 years ago. Past Drug Use History: None Reported - Past Family History Father Family Medical History: Cancer Mother Family Medical History: Cancer Additional Family Medical History / Comment(s): Mother in her 50s with some form of cancer. Pt/spouse do not recall type of cancer. Medications and Allergies Home Medications Medication Instructions Recorded Confirmed Type Ipratropium-Albuterol Nebulize 3 ml INHALATION RT-QID PRN 07/30/21 04/07/23 History [Duoneb 0.5 mg-3 mg/3 ml Soln] Albuterol Sulfate [Albuterol 1 - 2 puff INHALATION RT-Q6H PRN 10/21/22 04/07/23 History Sulfate Hfa] Apixaban [Eliquis] 5 mg PO BID 10/21/22 04/07/23 History Theophylline 12 Hour [Robe-Dur] 300 mg PO DAILY 12/15/22 04/07/23 History Acetaminophen Tab [Tylenol] 650 mg PO Q6HR PRN tab 01/03/23 04/07/23 Rx Budesonide-Formot 160-4.5 Mcg 2 puff INHALATION RT-BID #1 each 01/03/23 04/07/23 Rx [Symbicort 160-4.5 Mcg Inhaler] Furosemide [Lasix] 20 mg PO DAILY 01/24/23 04/07/23 History Metoprolol Succinate (ER) [Toprol 25 mg PO DAILY 30 Days #30 tab 01/28/23 04/07/23 Rx XL] Isosorbide Mononitrate ER [Imdur] 30 mg PO DAILY 04/07/23 04/07/23 History LORazepam [Ativan] 0.5 - 1 mg PO DAILY PRN 04/07/23 04/07/23 History levoFLOXacin 500 mg PO DAILY 04/07/23 04/07/23 History predniSONE See Taper PO DAILY 04/07/23 04/07/23 History Allergies Allergy/AdvReac Type Severity Reaction Status Date / Time morphine AdvReac Intermediate Nausea & Verified 04/07/23 07:30 Vomiting Physical Exam Vitals: Vital Signs Temp Pulse Pulse Pulse Pulse Pulse Resp 04/08/23 15:29 100 04/08/23 15:18 99 04/08/23 14:27 98.6 F 103 H 16 04/08/23 11:41 100 04/08/23 11:32 97 04/08/23 08:13 72 04/08/23 08:02 71 04/08/23 07:00 98.6 F 90 70 66 16 04/08/23 02:44 97.8 F 96 16 04/07/23 20:47 72 04/07/23 20:37 70 04/07/23 19:51 98.2 F 82 15 BP BP BP BP Pulse Ox 04/08/23 15:29 04/08/23 15:18 04/08/23 14:27 106/67 98 04/08/23 11:41 04/08/23 11:32 04/08/23 08:13 04/08/23 08:02 96 04/08/23 07:00 121/80 121/77 138/71 98 04/08/23 02:44 122/66 99 04/07/23 20:47 04/07/23 20:37 04/07/23 19:51 120/67 98 Intake and Output 04/08/23 04/08/23 04/08/23 06:59 14:59 22:59 Other: # Voids 2 1 Results 04/07/23 04:36 04/07/23 09:13 Current Medications Generic Name Dose Route Start Last Admin Trade Name Freq PRN Reason Stop Dose Admin Acetaminophen 650 mg 04/07/23 06:50 04/07/23 23:20 Acetaminophen Tab 325 Mg Tab PO 650 mg Q4HR PRN Administration Mild Pain or Fever > 100.5 Albuterol/Ipratropium 3 ml 04/07/23 08:00 04/08/23 15:18 Ipratropium-Albuterol 3 Ml Neb INHALATION 3 ml RT-QID YOLANDA Administration Albuterol/Ipratropium 3 ml 04/07/23 06:50 Ipratropium-Albuterol 3 Ml Neb INHALATION RT-Q2H PRN Shortness Of Breath Or Wheezing Apixaban 5 mg 04/07/23 09:00 04/08/23 10:06 Apixaban 5 Mg Tab PO 5 mg BID YOLANDA Administration Protocol Atorvastatin Calcium 80 mg 04/07/23 21:00 04/07/23 20:53 Atorvastatin 80 Mg Tab PO 80 mg HS YOLANDA Administration Budesonide/Formoterol Fumarate 2 puff 04/07/23 08:00 04/08/23 08:01 Symbicort 160-4.5 Mcg Inhaler INHALATION 2 puff RT-BID YOLANDA Administration Doxycycline Monohydrate 100 mg 04/07/23 09:00 04/08/23 10:06 Doxycycline 100 Mg Cap PO 04/11/23 21:01 100 mg BID YOLANDA Administration Protocol Furosemide 20 mg 04/07/23 09:00 04/08/23 10:06 Furosemide 20 Mg Tab PO 20 mg DAILY YOLANDA Administration Sodium Chloride 1,000 mls @ 75 mls/hr 04/07/23 13:00 04/08/23 16:11 Saline 0.9% IV Not Given .[id number] YOLANDA Lorazepam 0.5 mg 04/07/23 06:51 Lorazepam 0.5 Mg Tab PO TID PRN Anxiety Metoprolol Succinate 25 mg 04/07/23 09:00 04/08/23 10:07 Metoprolol Succinate (Er) 25 Mg Tab.Er.24h PO 25 mg DAILY YOLANDA Administration Naloxone HCl 0.2 mg 04/07/23 06:50 Naloxone 0.4 Mg/Ml 1 Ml Vial IVP Q2M PRN Opioid Reversal Pantoprazole Sodium 40 mg 04/07/23 07:30 04/08/23 06:06 Pantoprazole 40 Mg Tablet PO 40 mg [id number] YOLANDA Administration Prednisone 40 mg 04/08/23 09:00 04/08/23 10:06 Prednisone 20 Mg Tab PO 04/12/23 09:01 40 mg DAILY YOLANDA Administration Theophylline 300 mg 04/07/23 09:00 04/08/23 10:07 Theophylline 24 Hour 300 Mg Cap.Er.24h PO 300 mg DAILY YOLANDA Administration Intake and Output 04/08/23 04/08/23 04/08/23 06:59 14:59 22:59 Other: # Voids 2 1 04/07/23 04:36 04/07/23 09:13
[2023-04-08] MEDS: ATORVASTATIN 80 MG TAB PO SCH (19:53)
[2023-04-09] MEDS: SODIUM CHLORIDE 0.9% 1,000 ML IV SCH ×2 (02:03→20:19)
[2023-04-09] MEDS: PANTOPRAZOLE 40 MG TABLET PO SCH (05:29)
[2023-04-09] MEDS: SYMBICORT 160-4.5 MCG INHALER INHALATION SCH ×2 (08:55→20:00)
[2023-04-09] MEDS: IPRATROPIUM-ALBUTEROL 3 ML NEB INHALATION SCH ×4 (08:55→20:00)
[2023-04-09] MEDS: predniSONE 20 MG TAB PO SCH (09:11)
[2023-04-09] MEDS: FUROSEMIDE 20 MG TAB PO SCH (09:11)
[2023-04-09] MEDS: APIXABAN 5 MG TAB PO SCH ×2 (09:11→20:20)
[2023-04-09] MEDS: DOXYCYCLINE 100 MG CAP PO SCH ×2 (09:11→20:20)
[2023-04-09] MEDS: THEOPHYLLINE 24 HOUR 300 MG CAP.ER.24H PO SCH (09:11)
[2023-04-09] MEDS: METOPROLOL SUCCINATE (ER) 25 MG TAB.ER.24H PO SCH (09:11)
--- NOTE | 2023-04-09 11:35 | P.PN ---
Subjective Progress Note Date: 04/09/23 73-year-old male with a past medical history of pulmonary emboli on anticoagulation with Eliquis, COPD with chronic hypoxic respiratory failure on 2 L NC, perforated diverticulitis status post colostomy, and hyperlipidemia. He presents the ED for worsening shortness of breath over the past week. He reports cough productive of clear and yellow sputum. This morning, he was walking back from the bathroom to his bed when he had an episode of unresponsiveness. His is able to recognize his symptoms and bring him down to the floor. Loss of consciousness lasted for about a couple of minutes. also noted shallow breathing during this episode. Denied any bladder or bowel incontinence, shaking of extremities. He continues to have recurrent syncopal episodes for which he was previously hospitalized back in January. Previous concerns for NSVT and arrhythmia. He currently has a loop recorder placed by Cardiology. Total of 5 episodes since December. reports this usually happens when he is changing position from sitting/laying to standing. In the ED he underwent extensive evaluation. BP 164/96, HR 100, RR 26, O2 saturation 95% on 3 L nasal cannula. CBC unremarkable. Coagulation panel PT 9.8, APTT 19.9. D-dimer 0.33. CMP potassium 5.2, chloride 109, BUN 21. Lactic acid 1.6. Troponin less than 0.012. BNP 305. COVID-19, RSV, influenza negative. EKG sinus rhythm. Chest x-ray chronic emphysematous changes with no obvious infiltrate when compared to previous CXRs. Patient is admitted for multiple syncopal episodes and COPD exacerbation. EEG was negative. Orthostats were positive, started on NS at 75 cc/hr. Pulmonology consulted, started on bronchodilators, Prednisone and Doxycycline. Cardiology consulted, attempt loop interrogation, dedicated outpatient RV Echo to assess pulmonary HTN. 04/09 Patient was seen and examined. Continued SOB with little exertion. He reports lightheadedness when ambulating from the bed to bathroom. Orthostats done today were positive (drop in DBP of 12 points). General: non toxic, no distress, appears at stated age Derm: warm, dry Head: atraumatic, normocephalic, symmetric Eyes: EOMI, no lid lag, anicteric sclera Mouth: no lip lesion, mucus membranes moist Cardiovascular: S1S2 reg, no murmur Lungs: Decreased breath sounds bilateral, no rhonchi, no rales , no accessory muscle use Ext: no gross muscle atrophy, 1+ bilateral lower extremity pitting edema, no contractures Neuro: no focal neuro deficits Psych: Alert, oriented, appropriate affect Based on my assessment of this patient, this patient meets a moderate complexity level of care. Patient has an acute diagnosis of COPD exacerbation with syncopal episode that poses a threat to life or bodily function. Recurrent syncopal episode: Unclear etiology. Echo 01/2023 EF 55-60%. Cardiology consulted, would prefer loop interrogation while patient hospitalized, will discus with Dr. Ibrahim. Orthostats +. EEG negative. ACS ruled out. Continue NS at 75 cc/hr. Telemetry monitoring. Acute on chronic COPD exacerbation due to acute bronchitis: DuoNeb QID scheduled and PRN for SOB/wheezing. Symbicort 2 INH BID. Prednisone 40 mg PO QD. Theophylline 300 mg PO QD. Doxycycline for acute bronchitis. Pulmonary on board. Chronic respiratory failure Prerenal azotemia: IV hydration as above. Resolved: HyperK CODE STATUS: FULL CODE. DVT Prophylaxis: Eliquis GI Prophylaxis: Protonix Designated medical POA if patient is not able to make medical decisions for themselves: I have reviewed the following accounting consultant notes: Pulmonary and Cardiology note. I have reviewed the results of the following tests: I have ordered the following tests: CBC and BMP. I have discussed the care of this patient with the following independent historian: I have independently interpreted the following test below: I have discussed the management of this patient with the following physician: Objective - Vital Signs Vital signs: Vital Signs Temp 97.6 F 04/09/23 07:00 Pulse 104 H 04/09/23 09:06 Resp 15 04/09/23 07:00 BP 133/85 04/09/23 07:00 Pulse Ox 95 04/09/23 08:55 FiO2 Intake & Output 04/08/23 04/09/23 04/09/23 18:59 06:59 18:59 Other: Voiding Method Toilet # Voids 1 2 - Labs CBC & Chem 7: 04/07/23 04:36 04/07/23 09:13 Labs: Microbiology - Last 24 Hours (Table) 04/07/23 05:50 Blood Culture - Preliminary Blood 04/07/23 05:25 Blood Culture - Preliminary Blood
--- NOTE | 2023-04-09 13:38 | P.PN ---
Subjective Progress Note Date: 04/09/23 Progress note Patient had another episode of lightheadedness and brief syncope last night. At that time telemetry did not show any pauses or any arrhythmias. His loop recorder interrogation does not show any evidences of pauses, extreme tachycardia or any arrhythmias and ventricular tachycardia. I feel patient's syncope is due to advanced pulmonary hypertension. HISTORY OF PRESENTING ILLNESS 73-year-old with advanced COPD with FEV1 of 25% chronic hypoxia 3 L oxygen, history of PE on anticoagulation. Her last to 3 months patient has had 8 episodes of passing out. On detailed history from patient and patient's they report, last night he was getting up from the bed to go to the bathroom and he kind of fainted and went to the floor slowly. Another instance vision described is making coughing the kitchen when he passed out and fell on the floor. He got a loop recorder placed recently which has not been interrogated it seems. Patient's previous echo cardiac exam showed preserved LV systolic function. Previous echoes quality was limited and they never evaluated RV function and pulmonary hypertension Patient's chest x-rays consistent with COPD with no acute abnormalities. BUN 31 and creatinine 1.2, troponins are negative, sodium 141, troponin is negat vivien. Viral panel is negative. ECG shows sinus rhythm with no significant ST-T wave changes. REVIEW OF SYSTEMS 14 point review of system is negative except what is mentioned above in HPI. PHYSICAL EXAMINATION Vital signs reviewed. Head: Normocephalic. Eyes: Sclerae nonicteric. Neck: Brisk carotid upstroke, no jugular venous distention. Lungs: Mild wheezing in bilateral lung ramirez. Heart: Regular rate and rhythm, S1-S2, no S3, no murmur or rub. Abdomen: Soft nontender, positive bowel sounds no organomegaly. Extremities: No edema, intact distal pulses. Neuro: Alert, oritented, no focal deficits ASSESSMENT Syncopal episode, Recurrent syncope likely due to advanced pulmonary hypertension Chronic hypoxia Advanced COPD [id number]-[id number] COPD exacerbation History of PE on anticoagulation PLAN Obtain an outpatient echocardiogram with focused RV views to assess pulmonary hypertension, as this could be the reason that patient is having recurrent syncope Patient's LVOT and LV systolic function are within normal limits Continue current cardiac and pulmonary medications without any changes COPD management as per pulmonary team If patient is optimized from a pulmonary standpoint, he is cleared to discharge from cardiac vessel standpoint. He needs outpatient follow-up with Dr. Ramos for possible right heart cath and further evaluation of recurrent syncope Objective - Vital Signs Vital signs: Vital Signs Temp 97.6 F 04/09/23 07:00 Pulse 100 04/09/23 12:11 Resp 15 04/09/23 07:00 BP 133/85 04/09/23 07:00 Pulse Ox 95 04/09/23 08:55 FiO2 Intake & Output 04/08/23 04/09/23 04/09/23 18:59 06:59 18:59 Other: Voiding Method Toilet # Voids 1 2 - Labs CBC & Chem 7: 04/07/23 04:36 04/07/23 09:13 Labs: Microbiology - Last 24 Hours (Table) 04/07/23 05:50 Blood Culture - Preliminary Blood 04/07/23 05:25 Blood Culture - Preliminary Blood
--- NOTE | 2023-04-09 15:01 | P.PN ---
Subjective Progress Note Date: 04/09/23 73-year-old male patient is very well-known to me. The patient has advanced COPD and his FEV1 is in order of 25% of predicted and auction dependent at 3 L/m nasal cannula. He also has history of pulmonary embolism maintain on anticoagulation with Eliquis. He has previous history of perforated divertic ulitis and he has a colostomy in place and he has hyperlipidemia. He also has had issues with recurrent syncopal episodes. Currently is a loop recorder in place. His previous echocardiogram showed a preserved LV function and the patient has no evidence of any LV dysfunction and he has an ejection fraction of 55-60% without any significant valvular abnormalities. His last hospitalization was in January 2023 and at that time and treat this patient for an acute exacerbation. He comes in with worsening shortness of breath. He has cough and congestion and wheezing. His chest x-ray was consistent with COPD there was no evidence of any acute abnormalities. Hemodynamically stable. No pleurisy. No hemoptysis. No chest pain. Based on his labs, the white cell count of 8.5, hemoglobin is at 13.8 and a platelet count is at 239. BUN is at 31 with a creatinine of 1.2. Troponins are negative. The sodium is at 141, troponins are negative and the pro calcitonin level is at 0.07 and a viral panel was negative. His EKG was reviewed and showed sinus rhythm. No acute ST segment elevation or depression. In terms of his COPD, is maintained on Symbicort on outpatient basis. Currently is on a combination of bronchodilators and steroids. He was placed also on doxycycline. He takes theophylline and he is on prednisone 40 mg by mouth daily as part of the burst taper. . On 04/08/2023, the patient is feeling better. Less short of breath compared to yesterday. No new complaints. He remains on broke about it since steroids and is also on a broad-spectrum antibiotic coverage with doxycycline. No chest pain. No hemoptysis. No pleurisy. No other new complaints 04/09/2023, the patient is improving in regards to his COPD. Nevertheless, the patient is still having episodes of presyncope/syncope last episode occurring yesterday. As such, the loop recorder needs to be interrogated. Is currently on prednisone burst taper starting with 40 mg that was started yesterday. He is also on theophylline. He remains on DuoNeb updrafts. Is also on Symbicort. Resting comfortably in bed. No recent blood work from today. Most recent pro- calcitonin level was at 0.07. The viral panel was negative. Objective - Vital Signs Vital signs: Vital Signs Temp 98.6 F 04/09/23 14:29 Pulse 80 04/09/23 14:29 Resp 14 04/09/23 14:29 BP 130/80 04/09/23 14:29 Pulse Ox 95 04/09/23 14:29 FiO2 Intake & Output 04/08/23 04/09/23 04/09/23 18:59 06:59 18:59 Other: Voiding Method Toilet # Voids 1 2 # Bowel Movements 1 - Exam HEAD: Normocephalic. EYES: Normal reaction of pupils, equal size. NOSE: Clear with pink turbinates. THROAT: No erythema or exudates. NECK: No masses, no JVD. CHEST: No chest wall deformity. LUNGS: Equal air entry with bilateral end expiratory wheeze, diminished. CVS: S1 and S2 normal with no audible murmur, regular rhythm. The patient is a component of sinus tachycardia ABDOMEN: Postsurgical changes. Ostomy intact. Functioning with adequate stool. The patient has some positive bowel sounds . No abdominal tenderness around the stoma. No rebound tenderness. No guarding. SPINE: No scoliosis or deformity SKIN: No rashes CENTRAL NERVOUS SYSTEM: No focal deficits, tone is normal in all 4 extremities. EXTREMITIES: There is no peripheral edema. No clubbing, no cyanosis. Peripheral pulses are intact. - Labs CBC & Chem 7: 04/07/23 04:36 04/07/23 09:13 Labs: Microbiology - Last 24 Hours (Table) 04/07/23 05:50 Blood Culture - Preliminary Blood 04/07/23 05:25 Blood Culture - Preliminary Blood Assessment and Plan Plan: acute COPD exacerbation, failed outpatient therapy and the patient was completing course of Levaquin on outpatient basis. Currently is hospitalized for an acute choked exacerbation. No clear indication for pneumonia and the pro calcitonin level is low. Nontender worsening in his oxygenation. Advanced COPD with an FEV1 of 26% of predicted maintain on oxygen and steroids, the patient has chronic hypoxic respiratory failure without signs of any chronic hypercapnic respiratory failure. History of recurrent syncope and the patient was given a loop recorder for cardiac monitoring history of acute bilateral pulmonary embolism, on Eliquis chronic hypoxic respiratory failure currently on 3 L of oxygen by nasal cannula History of acute perforated diverticulitis with abscess formation, status post sigmoid colectomy and end colostomy that was done on 08/02/2022. History of high-grade distal small bowel obstruction, recovered Prostate cancer Acid reflux Hiatal hernia. plan Oral COPD exacerbation improving and the patient is stable in that regard Clinically improving and we'll continue same treatment Continue bronchodilators with DuoNeb updrafts. Continue Symbicort Prednisone 40 mg by mouth daily Spiriva burst taper Agree on doxycycline Resume all medications Chest x-ray is negative for pneumonia Pro calcitonin level is nonelevated and the d-dimer is low Ongoing issues episodes of syncope that the patient is experiencing. Enteral gets a loop recorder. Cardiology follow-up. EEG of the brain was negative. We'll continue to follow
[2023-04-09] MEDS: ATORVASTATIN 80 MG TAB PO SCH (20:20)
[2023-04-10 06:22] LABS: HCT 40.4 % (39.0-53.0); HGB 13.3 gm/dL (13.0-17.5); MCH 30.8 pg (25.0-35.0); MCHC 32.9 g/dL (31.0-37.0); MCV 93.4 fL (80.0-100.0); Mean Platelet Volume 7.6; Platelet Count 351 k/uL (150-450); RBC 4.33 m/uL (4.30-5.90); RDW 13.7 % (11.5-15.5)
[2023-04-10] MEDS: PANTOPRAZOLE 40 MG TABLET PO SCH (06:25)
[2023-04-10 06:58] LABS: African American GFR (CKD) 54 (>60 ml/min/1.73 sqM); Anion Gap 6 mmol/L; Blood Urea Nitrogen 36 mg/dL (9-20); Calcium 9.5 mg/dL (8.4-10.2); Carbon Dioxide 30 mmol/L (22-30); Chloride 103 mmol/L (98-107); Glucose 122 mg/dL (74-99); Non-African American GFR(CKD) 47 (>60 ml/min/1.73 sqM); Potassium 4.5 mmol/L (3.5-5.1); Sodium 139 mmol/L (137-145)
[2023-04-10] MEDS: IPRATROPIUM-ALBUTEROL 3 ML NEB INHALATION SCH ×4 (08:52→19:57)
[2023-04-10] MEDS: SYMBICORT 160-4.5 MCG INHALER INHALATION SCH ×2 (08:52→19:57)
[2023-04-10] MEDS: FUROSEMIDE 20 MG TAB PO SCH (09:37)
[2023-04-10] MEDS: APIXABAN 5 MG TAB PO SCH ×2 (09:37→21:32)
[2023-04-10] MEDS: THEOPHYLLINE 24 HOUR 300 MG CAP.ER.24H PO SCH (09:37)
[2023-04-10] MEDS: METOPROLOL SUCCINATE (ER) 25 MG TAB.ER.24H PO SCH (09:37)
[2023-04-10] MEDS: ISOSORBIDE MONONITRATE ER 30 MG TAB.ER.24H PO SCH (09:37)
[2023-04-10] MEDS: predniSONE 20 MG TAB PO SCH (09:38)
[2023-04-10] MEDS: SODIUM CHLORIDE 0.9% 1,000 ML IV SCH ×3 (10:32→23:32)
--- NOTE | 2023-04-10 10:44 | P.PN ---
Subjective Progress Note Date: 04/10/23 Hospital course: Patient is a pleasant 73-year-old male with a past medical history of atrial fibrillation and pulmonary emboli and anticoagulation with Eliquis, COPD with chronic hypoxic respiratory failure home oxygen dependent on 2 L at all times, perforated diverticulitis status post colostomy, GERD, hypertension, and hyperlipidemia. He presented to the emergency department on 04/07/23 with a chief complaint of worsening shortness of breath accompanied by productive cough of clear and yellow sputum along with reports of syncopal episode. Upon arrival to the emergency department patient underwent full evaluation. Vital signs upon arrival show blood pressure 164/96, heart rate 100, respiratory rate 20, temp 98.5F, SpO2 of 95% on 3 L O2 via nasal cannula. EKG was completed showing normal sinus rhythm at 63 bpm with T-wave inversion in lateral lead aVL otherwise no further T-wave or ST abnormalities showing no signs of acute ischemia. Chest x-ray showing chronic emphysematous changes with no central vascular congestion consistent for fluid overload. Patient was admitted under our services with consultation to pulmonology, cardiology, and neurology. EEG completed showing normal routine EEG with no focal slowing or epileptiform discharges or seizure activity on the EEG. Physical exam: Patient seen and fully evaluated at bedside this morning. Per patient and his at bedside he was told by certified nurse operating room lung function is only approximated at 20%. Patient having recurrent syncopal episodes believed to be secondary to his advanced pulmonary hypertension. Discussed goals of care with patient and at bedside. Order placed for hospice consult for further discussion. Plan is for discharge home with home care and palliative versus home with hospice care. Vital signs reviewed and stable. General: Nontoxic, no distress and appears stated age. Derm: Skin warm and dry, normal coloration for ethnicity. Head: Atraumatic, normocephalic and symmetric. Eyes: EOMs intact, no lid lag, and anicteric sclera Mouth: no lip lesions, mucus membranes moist Cardiovascular: regular rate and rhythm with normal S1S2, no murmur, positive posterior tibial pulses bilaterally, and cap refill < 2 seconds. Lungs: Respirations even, regular, and unlabored on room air. Lungs.diminished with diffuse expiratory wheezes bilaterally. Coarse cough present. Abdominal: soft, nontender to palpation, no guarding, no appreciable organomegaly. Colostomy left lower quadrant. Ext: ROM intact. No gross muscle atrophy, no edema, no contractures Neuro: Speech clear, face symmetrical and CN II-XII grossly intact with no noted focal neuro deficits Psych: Alert and oriented to person, place, time, and situation. Appropriate and pleasant affect. Assessment and Plan of Care: Recurrent syncopal episodes: Believed to be secondary to advanced pulmonary hypertension -Unclear etiology, believed to be secondary to advanced pulmonary hypertension -Echocardiogram 01/2023 EF 55-60%. Cardiology recommending to obtain outpatient echocardiogram was focused RVV used to assess further progression of pulmonary hypertension. -Cardiology evaluated, again recommending repeating echocardiogram on an outpatient basis and to continue current cardiac medications without any recommendations for changes at this time. Cardiology clearing patient from cardiac perspective for discharge. -Orthostatic vitals positive for postural orthostatic tachycardia. -EEG negative. -ACS ruled out. Continue NS at 75 cc/hr. Telemetry monitoring. -Fall precautions to remain in place. -Consult was placed to hospice for discussion secondary to advanced pulmonary hypertension with recurrent syncopal episodes. Acute on chronic respiratory failure with hypoxia COPD exacerbation due to acute on chronic bronchitis: -Continue DuoNebs QID scheduled and PRN for SOB/wheezing. -Continue Symbicort 2 INH BID. Prednisone 40 mg PO QD. Theophylline 300 mg PO QD. -Pulmonary following, reviewed documentation in chart. Prerenal azotemia: -Continue IV fluid hydration with 0.9% normal saline at 75 mL per hour. Hyperkalemia, secondary to hemolysis. Resolved History of perforated diverticulitis status post colostomy Continue colostomy care Data and imaging reviewed Morning labs reviewed. CBC unremarkable. BMP revealing continued elevation of renal function with BUN of 36, creatinine 1.47, GFR 47. Vital signs reviewed. Blood pressure 147/88, heart rate 88, respiratory rate 16, temp 97.6F, SpO2 of 90% on 3 L. CODE STATUS: Full code DVT prophylaxis: Eliquis Anticipated discharge date: Likely within the next [address]: Home with home and palliative care versus home with hospice Patient was seen independently by Nurse Pracitioner. This document was prepared using [employer] dictation software. Please allow for errors in inpatient services rn, while rare they do occur. I reviewed the documentation as provided by the CELINE above, who is the original author of this note. I agree with the documented assessment and plan, with the following changes: none Objective - Vital Signs Vital signs: Vital Signs Temp 97.6 F 04/10/23 07:30 Pulse 115 H 04/10/23 08:52 Resp 16 04/10/23 07:30 BP 147/88 04/10/23 07:30 Pulse Ox 96 04/10/23 08:55 FiO2 Intake & Output 04/09/23 04/10/23 04/10/23 18:59 06:59 18:59 Intake Total 590 150 Balance 590 150 Intake: Oral 590 150 Other: Voiding Method Toilet # Voids 1 # Bowel Movements 1 - Labs CBC & Chem 7: 04/10/23 06:05 04/10/23 06:05 Labs: Abnormal Lab Results - Last 24 Hours (Table) 04/10/23 Range/Units 06:05 BUN 36 H (9-20) mg/dL Creatinine 1.47 H (0.66-1.25) mg/dL Glucose 122 H (74-99) mg/dL Microbiology - Last 24 Hours (Table) 04/07/23 05:50 Blood Culture - Preliminary Blood 04/07/23 05:25 Blood Culture - Preliminary Blood
--- NOTE | 2023-04-10 13:10 | P.PN ---
Subjective Progress Note Date: 04/10/23 73-year-old male patient with advanced COPD and his FEV1 is in order of 25% of predicted and auction dependent at 3 L/m nasal cannula. He also has history of pulmonary embolism maintain on anticoagulation with Eliquis. He has previous history of perforated diverticulitis and he has a colostomy in place and he has hyperlipidemia. He also has had issues with recurrent syncopal episodes. Currently is a loop recorder in place. His previous echocardiogram showed a preserved LV function and the patient has no evidence of any LV dysfunction and he has an ejection fraction of 55-60% without any significant valvular abnormalities. His last hospitalization was in January 2023 and at that time and treat this patient for an acute exacerbation. He comes in with worsening shortness of breath. He has cough and congestion and wheezing. His chest x-ray was consistent with COPD there was no evidence of any acute abnormalities. Hemodynamically stable. No pleurisy. No hemoptysis. No chest pain. Based on his labs, the white cell count of 8.5, hemoglobin is at 13.8 and a platelet count is at 239. BUN is at 31 with a creatinine of 1.2. Troponins are negative. The sodium is at 141, troponins are negative and the pro calcitonin level is at 0.07 and a viral panel was negative. His EKG was reviewed and showed sinus rhythm. No acute ST segment elevation or depression. In terms of his COPD, is maintained on Symbicort on outpatient basis. Currently is on a combination of bronchodilators and steroids. He was placed also on doxycycline. He takes theophylline and he is on prednisone 40 mg by mouth daily as part of the burst taper. . On 04/08/2023, the patient is feeling better. Less short of breath compared to yesterday. No new complaints. He remains on broke about it since steroids and is also on a broad-spectrum antibiotic coverage with doxycycline. No chest pain. No hemoptysis. No pleurisy. No other new complaints 04/09/2023, the patient is improving in regards to his COPD. Nevertheless, the patient is still having episodes of presyncope/syncope last episode occurring yesterday. As such, the loop recorder needs to be interrogated. Is currently on prednisone burst taper starting with 40 mg that was started yesterday. He is also on theophylline. He remains on [facility]. Is also on Symbicort. Resting comfortably in bed. No recent blood work from today. Most recent pro- calcitonin level was at 0.07. The viral panel was negative. The patient is seen today 04/10/2023 in follow-up on the regular medical floor. He is awake and alert in no acute distress. Currently resting quite comfortably in bed. He is maintaining O2 saturations in the 90s on 3 L/m per nasal cannula. The patient has had episodes of near-syncope/syncope even with minimal act ivity. He had been seen and evaluated by cardiology who feels this may be related to pulmonary hypertension. He also has a loop recorder in place that will be interrogated. The patient's FEV1 value is 26% of predicted. Count 10.0. Hemoglobin 13.3. Sodium 139. Potassium 4.5. Bicarb 30. BUN 36. Creatinine 1.47. Glucose 122. Pro-calcitonin was negative at 0.07. He remains on DuoNeb inhalations, Symbicort, prednisone taper. Anticoagulated with Eliquis. Remains on diuretics. Objective - Vital Signs Vital signs: Vital Signs Temp 97.6 F 04/10/23 07:30 Pulse 118 H 04/10/23 12:13 Resp 16 04/10/23 07:30 BP 147/88 04/10/23 07:30 Pulse Ox 96 04/10/23 08:55 FiO2 Intake & Output 04/09/23 04/10/23 04/10/23 18:59 06:59 18:59 Intake Total 590 150 Balance 590 150 Intake: Oral 590 150 Other: Voiding Method Toilet # Voids 1 # Bowel Movements 1 - Exam GENERAL EXAM: Alert, 73-year-old male, on 3 L nasal cannula, comfortable in no apparent distress. HEAD: Normocephalic. EYES: Normal reaction of pupils, equal size. NOSE: Clear with pink turbinates. THROAT: No erythema or exudates. NECK: No masses, no JVD. CHEST: No chest wall deformity. LUNGS: Equal air entry with no crackles, wheeze, rhonchi or dullness. Dimin ished. CVS: S1 and S2 normal with no audible murmur, regular rhythm. ABDOMEN: No hepatosplenomegaly, normal bowel sounds, no guarding or rigidity. SPINE: No scoliosis or deformity SKIN: No rashes CENTRAL NERVOUS SYSTEM: No focal deficits, tone is normal in all 4 extremities. EXTREMITIES: There is no peripheral edema. No clubbing, no cyanosis. Peripheral pulses are intact. - Labs CBC & Chem 7: 04/10/23 06:05 04/10/23 06:05 Labs: Abnormal Lab Results - Last 24 Hours (Table) 04/10/23 Range/Units 06:05 BUN 36 H (9-20) mg/dL Creatinine 1.47 H (0.66-1.25) mg/dL Glucose 122 H (74-99) mg/dL Microbiology - Last 24 Hours (Table) 04/07/23 05:50 Blood Culture - Preliminary Blood 04/07/23 05:25 Blood Culture - Preliminary Blood Assessment and Plan Assessment: Acute COPD exacerbation, failed outpatient therapy and the patient was completing course of Levaquin on outpatient basis. Currently is hospitalized for an acute COPD exacerbation. No clear indication for pneumonia and the pro calcitonin level is low. Nontender worsening in his oxygenation. Advanced COPD with an FEV1 of 26% of predicted maintain on oxygen and steroids, the patient has chronic hypoxic respiratory failure without signs of any chronic hypercapnic respiratory failure. History of recurrent syncope and the patient was given a loop recorder for cardiac monitoring History of acute bilateral pulmonary embolism, on Eliquis chronic hypoxic respiratory failure currently on 3 L of oxygen by nasal cannula History of acute perforated diverticulitis with abscess formation, status post sigmoid colectomy and end colostomy that was done on 08/02/2022. History of high-grade distal small bowel obstruction, recovered Prostate cancer Acid reflux Hiatal hernia. Plan: The patient was seen and evaluated Labs and medications reviewed Under investigation for syncopal episodes Possibly related to pulmonary hypertension per cardiology Loop recorder to be interrogated Continue bronchodilators, steroids Antibiotics discontinued Pro calcitonin negative Overall prognosis remains poor We will continue to follow This patient was seen independently by the pulmonary nurse practitioner addressing pulmonary issues I have personally seen and examined the patient, performed the documentation and the assessment and plan as written. Number of minutes spent on the visit: 24.
[2023-04-10] MEDS: ATORVASTATIN 80 MG TAB PO SCH (21:32)
[2023-04-10 21:38] VITALS: RESP 16
[2023-04-11] MEDS: PANTOPRAZOLE 40 MG TABLET PO SCH (06:09)
[2023-04-11 07:50] VITALS: BP 128/82; TEMP 98.3
[2023-04-11] MEDS: SYMBICORT 160-4.5 MCG INHALER INHALATION SCH (08:25)
[2023-04-11] MEDS: IPRATROPIUM-ALBUTEROL 3 ML NEB INHALATION SCH ×2 (08:25→12:13)
[2023-04-11] MEDS: FUROSEMIDE 20 MG TAB PO SCH (09:02)
[2023-04-11] MEDS: predniSONE 20 MG TAB PO SCH (09:02)
[2023-04-11] MEDS: ISOSORBIDE MONONITRATE ER 30 MG TAB.ER.24H PO SCH (09:02)
[2023-04-11] MEDS: METOPROLOL SUCCINATE (ER) 25 MG TAB.ER.24H PO SCH (09:03)
[2023-04-11] MEDS: APIXABAN 5 MG TAB PO SCH (09:03)
[2023-04-11] MEDS: THEOPHYLLINE 24 HOUR 300 MG CAP.ER.24H PO SCH (09:03)
--- NOTE | 2023-04-11 11:34 | P.PN ---
Subjective Progress Note Date: 04/11/23 73-year-old male patient with advanced COPD and his FEV1 is in order of 25% of predicted and auction dependent at 3 L/m nasal cannula. He also has history of pulmonary embolism maintain on anticoagulation with Eliquis. He has previous history of perforated diverticulitis and he has a colostomy in place and he has hyperlipidemia. He also has had issues with recurrent syncopal episodes. Currently is a loop recorder in place. His previous echocardiogram showed a preserved LV function and the patient has no evidence of any LV dysfunction and he has an ejection fraction of 55-60% without any significant valvular abnormalities. His last hospitalization was in January 2023 and at that time and treat this patient for an acute exacerbation. He comes in with worsening shortness of breath. He has cough and congestion and wheezing. His chest x-ray was consistent with COPD there was no evidence of any acute abnormalities. Hemodynamically stable. No pleurisy. No hemoptysis. No chest pain. Based on his labs, the white cell count of 8.5, hemoglobin is at 13.8 and a platelet count is at 239. BUN is at 31 with a creatinine of 1.2. Troponins are negative. The sodium is at 141, troponins are negative and the pro calcitonin level is at 0.07 and a viral panel was negative. His EKG was reviewed and showed sinus rhythm. No acute ST segment elevation or depression. In terms of his COPD, is maintained on Symbicort on outpatient basis. Currently is on a combination of bronchodilators and steroids. He was placed also on doxycycline. He takes theophylline and he is on prednisone 40 mg by mouth daily as part of the burst taper. . On 04/08/2023, the patient is feeling better. Less short of breath compared to yesterday. No new complaints. He remains on broke about it since steroids and is also on a broad-spectrum antibiotic coverage with doxycycline. No chest pain. No hemoptysis. No pleurisy. No other new complaints 04/09/2023, the patient is improving in regards to his COPD. Nevertheless, the patient is still having episodes of presyncope/syncope last episode occurring yesterday. As such, the loop recorder needs to be interrogated. Is currently on prednisone burst taper starting with 40 mg that was started yesterday. He is also on theophylline. He remains on [place]. Is also on Symbicort. Resting comfortably in bed. No recent blood work from today. Most recent pro- calcitonin level was at 0.07. The viral panel was negative. The patient is seen today 04/10/2023 in follow-up on the regular medical floor. He is awake and alert in no acute distress. Currently resting quite comfortably in bed. He is maintaining O2 saturations in the 90s on 3 L/m per nasal cannula. The patient has had episodes of near-syncope/syncope even with minimal act ivity. He had been seen and evaluated by cardiology who feels this may be related to pulmonary hypertension. He also has a loop recorder in place that will be interrogated. The patient's FEV1 value is 26% of predicted. Count 10.0. Hemoglobin 13.3. Sodium 139. Potassium 4.5. Bicarb 30. BUN 36. Creatinine 1.47. Glucose 122. Pro-calcitonin was negative at 0.07. He remains on DuoNeb inhalations, Symbicort, prednisone taper. Anticoagulated with Eliquis. Remains on diuretics. The patient is seen today April 11, 2023 in follow-up in the regular medical floor. He is currently awake and alert in no acute distress. Maintaining O2 saturations in the 90s on 3 L/min per nasal cannula. He is continued on Symbicort, albuterol, theophylline, prednisone. His breathing is back to his ba seline. Remains anticoagulated with Eliquis. No new labs today. Objective - Vital Signs Vital signs: Vital Signs Temp 98.3 F 04/11/23 07:00 Pulse 95 04/11/23 08:37 Resp 16 04/11/23 07:00 BP 128/82 04/11/23 07:00 Pulse Ox 98 04/11/23 08:27 FiO2 Intake & Output 04/10/23 04/11/23 04/11/23 18:59 06:59 18:59 Intake Total 386 Output Total 550 Balance 386 -550 Intake: Oral 386 Output: Urine 550 Other: Voiding Method Toilet # Voids 3 - Exam GENERAL EXAM: Alert, 73-year-old male, on 3 L nasal cannula, resting in bed, comfortable in no apparent distress. HEAD: Normocephalic. EYES: Normal reaction of pupils, equal size. NOSE: Clear with pink turbinates. THROAT: No erythema or exudates. NECK: No masses, no JVD. CHEST: No chest wall deformity. LUNGS: Equal air entry with no crackles, wheeze, rhonchi or dullness. Diminished. CVS: S1 and S2 normal with no audible murmur, regular rhythm. ABDOMEN: No hepatosplenomegaly, normal bowel sounds, no guarding or rigidity. SPINE: No scoliosis or deformity SKIN: No rashes CENTRAL NERVOUS SYSTEM: No focal deficits, tone is normal in all 4 extremities. EXTREMITIES: There is no peripheral edema. No clubbing, no cyanosis. Peripheral pulses are intact. - Labs CBC & Chem 7: 04/10/23 06:05 04/10/23 06:05 Labs: Microbiology - Last 24 Hours (Table) 04/07/23 05:50 Blood Culture - Preliminary Blood 04/07/23 05:25 Blood Culture - Preliminary Blood Assessment and Plan Assessment: Acute COPD exacerbation, failed outpatient therapy and the patient was completing course of Levaquin on outpatient basis. Currently is hospitalized for an acute COPD exacerbation. No clear indication for pneumonia and the pro calcitonin level is low. Advanced COPD with an FEV1 of 26% of predicted maintain on oxygen and steroids, the patient has chronic hypoxic respiratory failure without signs of any chronic hypercapnic respiratory failure. History of recurrent syncope and the patient was given a loop recorder for cardiac monitoring History of acute bilateral pulmonary embolism, on Eliquis chronic hypoxic respiratory failure currently on 3 L of oxygen by nasal cannula History of acute perforated diverticulitis with abscess formation, status post sigmoid colectomy and end colostomy that was done on 08/02/2022 History of high-grade distal small bowel obstruction, recovered Prostate cancer Acid reflux Hiatal hernia Plan: The patient was seen and evaluated Labs and medications reviewed Continue bronchodilators, steroids Continue oxygen Overall prognosis remains poor Hospice consult placed Cleared for discharge from the pulmonary standpoint This patient was seen independently by the pulmonary nurse practitioner addressing pulmonary issues I have personally seen and examined the patient, performed the documentation and the assessment and plan as written. Number of minutes spent on the visit: 22.
--- NOTE | 2023-04-11 11:41 | P.DS ---
Providers Date of admission: 04/07/23 06:50 Expected date of discharge: 04/11/23 Attending physician: Jose Alford MD Consults: 04/07/23 08:23 Consult Physician Routine Consulting Provider: Carrie Faulkner Consult Reason/Comments: copd exacerbation Do you want consulting provider notified?: Yes 04/07/23 10:05 Consult Physician Routine Consulting Provider: Azam Gonzalez Consult Reason/Comments: syncope with loop recorder Do you want consulting provider notified?: Yes Primary care physician: Maico [facility] Hospital Course: Discharge Diagnosis: Recurrent syncopal episodes: Believed to be secondary to advanced pulmonary hypertension. Patient discharged home with [facility]. Acute on chronic respiratory failure with hypoxia. COPD exacerbation due to acute on chronic bronchitis: Prerenal azotemia: Hyperkalemia, secondary to hemolysis. Resolved History of perforated diverticulitis status post colostomy Hospital Course: Patient is a pleasant 73-year-old male with a past medical history of atrial fibrillation and pulmonary emboli and anticoagulation with Eliquis, COPD with chronic hypoxic respiratory failure home oxygen dependent on 2 L at all times, perforated diverticulitis status post colostomy, GERD, hypertension, and hyperlipidemia. He presented to the emergency department on 04/07/23 with a chief complaint of worsening shortness of breath accompanied by productive cough of clear and yellow sputum along with reports of syncopal episode. Upon arrival to the emergency department patient underwent full evaluation. Vital signs upon arrival show blood pressure 164/96, heart rate 100, respiratory rate 20, temp 98.5F, SpO2 of 95% on 3 L O2 via nasal cannula. EKG was completed showing normal sinus rhythm at 63 bpm with T-wave inversion in lateral lead aVL otherwise no further T-wave or ST abnormalities showing no signs of acute ischemia. Chest x-ray showing chronic emphysematous changes with no central vascular congestion consistent for fluid overload. Patient was admitted under our services with consultation to pulmonology, cardiology, and neurology. EEG completed showing normal routine EEG with no focal slowing or epileptiform discharges or seizure activity on the EEG. Patient was admitted under the services with consultation to cardiology and pulmonology. His recurrent syncopal episodes are believed to be secondary to his advanced pulmonary hypertension. Patient was evaluated by cardiology who recommended repeating echocardiogram on an outpatient basis and to continue current cardiac medications without any recommendations for changes at this time. Pulmonology evaluated patient and discussed patient's FEV1 value only being 26% of predicted and discussed patient's overall poor prognosis due to poor lung function. Consult was placed to hospice. Patient and his discussed options overnight and have decided to sign on with [facility]. Patient discharged home at this time under the care of [facility]. Physical exam: Vital signs reviewed and stable. General: Nontoxic, no distress and appears stated age. Derm: Skin warm and dry, normal coloration for ethnicity. Head: Atraumatic, normocephalic and symmetric. Eyes: EOMs intact, no lid lag, and anicteric sclera Mouth: no lip lesions, mucus membranes moist Cardiovascular: regular rate and rhythm with normal S1S2, no murmur, positive posterior tibial pulses bilaterally, and cap refill < 2 seconds. Lungs: Respirations even, regular, and unlabored on room air. Lungs.diminished with diffuse expiratory wheezes bilaterally. Coarse cough present. Abdominal: soft, nontender to palpation, no guarding, no appreciable organomegaly. Colostomy left lower quadrant. Ext: ROM intact. No gross muscle atrophy, no edema, no contractures Neuro: Speech clear, face symmetrical and CN II-XII grossly intact with no noted focal neuro deficits Psych: Alert and oriented to person, place, time, and situation. Appropriate and pleasant affect. A total of 39 minutes of time were spent preparing this complex discharge summary. Pt was discharged on 04/11/2023 at 11:48 AM. Patient was seen independently by Nurse Practitioner. This document was prepared using [employer] dictation software. Please allow for errors in bus driver/monitor while rare they do occur. Patient Condition at Discharge: Poor Plan - Discharge Summary Discharge Rx Participant: No New Discharge Prescriptions: New Pantoprazole [Protonix] 40 mg PO AC-BRKFST 30 Days #30 tab predniSONE See Taper PO DIRECTED 16 Days #40 tab Continue Ipratropium-Albuterol Nebulize [Duoneb 0.5 mg-3 mg/3 ml Soln] 3 ml INHALATION RT-QID PRN PRN Reason: Shortness Of Breath Albuterol Sulfate [Albuterol Sulfate Hfa] 1 - 2 puff INHALATION RT-Q6H PRN PRN Reason: Shortness Of Breath Theophylline 12 Hour [Robe-Dur] 300 mg PO DAILY Budesonide-Formot 160-4.5 Mcg [Symbicort 160-4.5 Mcg Inhaler] 2 puff INHALATION RT-BID #1 each Acetaminophen Tab [Tylenol] 650 mg PO Q6HR PRN tab PRN Reason: Mild Pain (Scale 1 To 3) Furosemide [Lasix] 20 mg PO DAILY Metoprolol Succinate (ER) [Toprol XL] 25 mg PO DAILY 30 Days #30 tab Isosorbide Mononitrate ER [Imdur] 30 mg PO DAILY Apixaban [Eliquis] 5 mg PO BID LORazepam [Ativan] 0.5 - 1 mg PO DAILY PRN PRN Reason: Anxiety Discontinued levoFLOXacin 500 mg PO DAILY predniSONE See Taper PO DAILY Discharge Medication List Ipratropium-Albuterol Nebulize [Duoneb 0.5 mg-3 mg/3 ml Soln] 3 ml INHALATION RT-QID PRN 07/30/21 [History] Albuterol Sulfate [Albuterol Sulfate Hfa] 1 - 2 puff INHALATION RT-Q6H PRN 10/21/22 [History] Apixaban [Eliquis] 5 mg PO BID 10/21/22 [History] Theophylline 12 Hour [Robe-Dur] 300 mg PO DAILY 12/15/22 [History] Acetaminophen Tab [Tylenol] 650 mg PO Q6HR PRN tab 01/03/23 [Rx] Budesonide-Formot 160-4.5 Mcg [Symbicort 160-4.5 Mcg Inhaler] 2 puff INHALATION RT-BID #1 each 01/03/23 [Rx] Furosemide [Lasix] 20 mg PO DAILY 01/24/23 [History] Metoprolol Succinate (ER) [Toprol XL] 25 mg PO DAILY 30 Days #30 tab 01/28/23 [Rx] Isosorbide Mononitrate ER [Imdur] 30 mg PO DAILY 04/07/23 [History] LORazepam [Ativan] 0.5 - 1 mg PO DAILY PRN 04/07/23 [History] Pantoprazole [Protonix] 40 mg PO AC-BRKFST 30 Days #30 tab 04/11/23 [Rx] predniSONE See Taper PO DIRECTED 16 Days #40 tab 04/11/23 [Rx] Follow up Appointment(s)/Referral(s): Maico Anders MD [Primary Care Provider] - 1-2 days [facility] [NON-STAFF] - 1 Week Activity/Diet/Wound Care/Special Instructions: Activity: As tolerated. Take breaks as needed. Diet: Heart healthy and carb consistent diet. Avoid salts, or foods with hidden salts such as canned or boxed foods and frozen dinners. Extra salt makes your heart work harder and traps the fluid in your body for longer. Special Instructions: You are being discharged home with [facility] as discussed, they will be reaching out to you to set up home visits. Thank you for allowing us to participate in your care, it was truly a pleasure having you for our patient!!! Discharge Disposition: HOME WITH HOSPICE
[2023-04-11] MEDS: SODIUM CHLORIDE 0.9% 1,000 ML IV SCH (12:15)
[2023-04-11 12:31] VITALS: PULSE 106
== END 2023-04-11 13:13 | disposition hospice, home (50) ==
LOC: EC 03:43 → 6NMEDSUR 06:50
PROVIDERS: ADMIT Internal Medicine; ATTEND Internal Medicine
DX: J44.1 Chronic obstructive pulmonary disease with (acute) exacerbation (principal); J20.9 Acute bronchitis, unspecified; J44.0 Chronic obstructive pulmonary disease with (acute) lower respiratory infection; J96.21 Acute and chronic respiratory failure with hypoxia; R55 Syncope and collapse; I48.91 Unspecified atrial fibrillation; K21.9 Gastro-esophageal reflux disease without esophagitis; K44.9 Diaphragmatic hernia without obstruction or gangrene; E78.5 Hyperlipidemia, unspecified; E87.5 Hyperkalemia; R79.89 Other specified abnormal findings of blood chemistry; Z20.822 Contact with and (suspected) exposure to COVID-19; Z85.46 Personal history of malignant neoplasm of prostate; Z86.711 Personal history of pulmonary embolism; Z87.19 Personal history of other diseases of the digestive system; Z87.891 Personal history of nicotine dependence; Z93.3 Colostomy status; Z99.81 Dependence on supplemental oxygen; Z79.01 Long term (current) use of anticoagulants; Z79.51 Long term (current) use of inhaled steroids; Z79.52 Long term (current) use of systemic steroids; Z79.899 Other long term (current) drug therapy; Z88.5 Allergy status to narcotic agent
CPT/HCPCS: 96360; 96361 ×2; 99285; 36415; 94640 ×10; 94760 ×4; 95816; 93005; 97162; 85379; 83880; 80053; 80048 ×2; 83605; 84484; 85025; 85027; 85610; 85730; 87040; 84145; 87636; 71046; G0378 ×5; J7512 ×5